=== PATIENT | female | born 1945 | race Caucasian/White ===

== ENCOUNTER → 2017-06-12 11:08 | Outpatient (CLI) | payer MEDICARE, OTHER, MEDICAID, SELFPAY ==
[2017-06-12 11:38] LABS: Absolute Lymphocyte Count 1.08 X10^3/ul (0.83-4.51); Absolute Neutrophil Count 2.8 X10^3/uL (2.0-7.7); Basophil# 0.02 X10^3/uL; Basophil% 0.4 % (0-1); Eosinophil# 0.18 X10^3/uL; Eosinophils% 3.9 % (0-5); Hematocrit 41.6 % (37-47); Hemoglobin 12.6 g/dl (12.0-15.0); Lymphocyte # 1.08 X10^3/ul (4.0); Lymphocyte % 23.2 % (19-41); Mean Corp Hgb Conc 30.3 g/gl (32-36); Mean Corpuscular Hgb 25.1 pg (27.0-32.0); Mean Corpuscular Volume 82.9 fL (81-99); Mean Platelet Vol. 9.4 fl (6.2-12.0); Monocyte# 0.56 X10^3/uL; Neutrophil # 2.81 X10^3/uL (2.7-7.7); Neutrophil % 60.3 % (47-70); POSITIVE COUNT NO; POSITIVE DIFFERENTIAL NO; POSITIVE MORPHOLOGY NO; Platelet Count 126 K/mm3 (150-450); RBC Distribution Width CV 19.9 % (11.6-14.6); RBC Distribution Width SD 59.4 fl (35.1-43.9); Red Blood Count 5.02 M/mm3 (4.2-5.4); White Blood Count 4.7 K/mm3 (4.4-11.0)
[2017-06-12 12:13] LABS: ALB/GLOB Ratio 0.9 RATIO (0.9-2.4); AST(SGOT) 11 U/L (15-37); Alanine Aminotransfer ALT/SGPT 16 U/L (13-56); Alkaline Phosphatase 63 U/L (45-117); Anion Gap 7 (5-15); BUN 21 mg/dL (7-18); BUN/Creat Ratio 22.1 RATIO (10-20); Calcium,Total 8.3 mg/dL (8.5-10.1); Chloride 107 mmol/L (98-107); Creatinine, Serum 0.95 mg/dL (0.55-1.02); EST Glomerular Filtration Rate 61 mL/min (>60); Est Glom Filt Rate - Afr Amer 74 mL/min (>60); Globulin 3.5 g/dL (2.2-4.2); Glucose 121 mg/dL (74-106); Potassium 4.8 mmol/L (3.5-5.1); Protein, Total 6.5 g/dL (6.4-8.2); Sodium Level 140 mmol/L (136-145)
== END ==
PROVIDERS: Family Provider Nurse Practitioner; PCP Nurse Practitioner; Visit Provider Internal Medicine Rheumatology
DX: M05.79 Rheumatoid arthritis with rheumatoid factor of multiple sites without organ or systems involvement (principal); M79.7 Fibromyalgia; M25.562 Pain in left knee; M15.9 Polyosteoarthritis, unspecified; Z79.899 Other long term (current) drug therapy
CPT/HCPCS: 36415; 80053; 85025

== ENCOUNTER → 2017-07-25 09:32 | Outpatient (CLI) | payer MEDICARE, OTHER, MEDICAID, SELFPAY ==
[2017-07-25 10:28] LABS: Hemoglobin A1c 5.8 % (4.2-6.3)
[2017-07-25 10:37] LABS: ALB/GLOB Ratio 0.8 RATIO (0.9-2.4); AST(SGOT) 17 U/L (15-37); Alanine Aminotransfer ALT/SGPT 20 U/L (13-56); Albumin, Serum 2.9 g/dL (3.2-5.0); Alkaline Phosphatase 63 U/L (45-117); Anion Gap 10 (5-15); BUN 23 mg/dL (7-18); BUN/Creat Ratio 20.7 RATIO (10-20); Calcium,Total 8.6 mg/dL (8.5-10.1); Chloride 105 mmol/L (98-107); Cholesterol 162 mg/dL (200); Creatinine, Serum 1.11 mg/dL (0.55-1.02); EST Glomerular Filtration Rate 51 mL/min (>60); Est Glom Filt Rate - Afr Amer 62 mL/min (>60); Globulin 3.6 g/dL (2.2-4.2); Glucose 197 mg/dL (74-106); High Density Lipoprotein 33 mg/dL; Protein, Total 6.5 g/dL (6.4-8.2); Sodium Level 139 mmol/L (136-145); Thyroid Stim Hormone (TSH) 1.96 uIU/mL (0.358-3.74); Triglycerides 227 mg/dL; Very Low Density Lipoprotein 45 mg/dL (5-40)
[2017-07-25 11:52] LABS: Microalbumin:Creatinine Ratio 14.8 mg/g CRE (<30 mg/g CRE)
== END ==
PROVIDERS: Family Provider Nurse Practitioner; PCP Nurse Practitioner; Visit Provider Internal Medicine Endocrinology, Diabetes & Metabolism
DX: E11.65 Type 2 diabetes mellitus with hyperglycemia (principal); E03.9 Hypothyroidism, unspecified
CPT/HCPCS: 36415; 80053; 80061; 82043; 82570; 83036; 84443

== ENCOUNTER → 2017-09-05 09:51 | Outpatient (CLI) | payer MEDICARE, OTHER, MEDICAID, SELFPAY ==
[2017-09-05 10:26] LABS: Absolute Lymphocyte Count 1.26 X10^3/ul (0.83-4.51); Basophil# 0.03 X10^3/uL; Basophil% 0.4 % (0-1); Eosinophils% 6.8 % (0-5); Hematocrit 43.1 % (37-47); Hemoglobin 13.1 g/dl (12.0-15.0); Lymphocyte # 1.26 X10^3/ul (4.0); Lymphocyte % 17.1 % (19-41); Mean Corp Hgb Conc 30.4 g/gl (32-36); Mean Corpuscular Hgb 26.3 pg (27.0-32.0); Mean Corpuscular Volume 86.5 fL (81-99); Mean Platelet Vol. 9.1 fl (6.2-12.0); Monocyte# 0.55 X10^3/uL; Monocyte% 7.5 % (0-10); Neutrophil # 5.02 X10^3/uL (2.7-7.7); Neutrophil % 67.9 % (47-70); Platelet Count 181 K/mm3 (150-450); RBC Distribution Width CV 14.9 % (11.6-14.6); RBC Distribution Width SD 46.5 fl (35.1-43.9); Red Blood Count 4.98 M/mm3 (4.2-5.4); White Blood Count 7.4 K/mm3 (4.4-11.0)
[2017-09-05 10:31] LABS: POSITIVE COUNT NO; POSITIVE DIFFERENTIAL NO; POSITIVE MORPHOLOGY NO
[2017-09-05 11:24] LABS: ALB/GLOB Ratio 0.7 RATIO (0.9-2.4); AST(SGOT) 14 U/L (15-37); Alanine Aminotransfer ALT/SGPT 18 U/L (13-56); Albumin, Serum 2.8 g/dL (3.2-5.0); Alkaline Phosphatase 63 U/L (45-117); Anion Gap 10 (5-15); BUN 21 mg/dL (7-18); BUN/Creat Ratio 18.9 RATIO (10-20); Calcium,Total 8.7 mg/dL (8.5-10.1); Chloride 104 mmol/L (98-107); Creatinine, Serum 1.11 mg/dL (0.55-1.02); EST Glomerular Filtration Rate 51 mL/min (>60); Est Glom Filt Rate - Afr Amer 62 mL/min (>60); Globulin 3.8 g/dL (2.2-4.2); Glucose 193 mg/dL (74-106); Protein, Total 6.6 g/dL (6.4-8.2); Sodium Level 139 mmol/L (136-145)
== END ==
PROVIDERS: Family Provider Nurse Practitioner; PCP Nurse Practitioner; Visit Provider Internal Medicine Rheumatology
DX: M05.79 Rheumatoid arthritis with rheumatoid factor of multiple sites without organ or systems involvement (principal); M79.7 Fibromyalgia; M25.561 Pain in right knee; M15.9 Polyosteoarthritis, unspecified; K76.0 Fatty (change of) liver, not elsewhere classified; M50.30 Other cervical disc degeneration, unspecified cervical region; M47.892 Other spondylosis, cervical region; Z79.899 Other long term (current) drug therapy
CPT/HCPCS: 36415; 80053; 85025

== ENCOUNTER → 2017-11-12 09:12 | Outpatient (CLI) | payer MEDICARE, OTHER, MEDICAID, SELFPAY ==
[2017-11-12 11:20] LABS: Vitamin D,25 Hydroxy 37.3 ng/mL (29.95-100.01)
[2017-11-12 11:23] LABS: Hemoglobin A1c 5.6 % (4.2-6.3)
[2017-11-12 12:54] LABS: ALB/GLOB Ratio 0.8 RATIO (0.9-2.4); AST(SGOT) 18 U/L (15-37); Alanine Aminotransfer ALT/SGPT 19 U/L (13-56); Albumin, Serum 2.9 g/dL (3.2-5.0); Alkaline Phosphatase 53 U/L (45-117); Anion Gap 11 (5-15); BUN 19 mg/dL (7-18); BUN/Creat Ratio 19.7 RATIO (10-20); Calcium,Total 8.7 mg/dL (8.5-10.1); Chloride 104 mmol/L (98-107); Creatinine, Serum 0.96 mg/dL (0.55-1.02); EST Glomerular Filtration Rate 60 mL/min (>60); Est Glom Filt Rate - Afr Amer 73 mL/min (>60); Globulin 3.6 g/dL (2.2-4.2); Glucose 117 mg/dL (74-106); Potassium 4.5 mmol/L (3.5-5.1); Protein, Total 6.5 g/dL (6.4-8.2); Sodium Level 141 mmol/L (136-145); Thyroid Stim Hormone (TSH) 2.33 uIU/mL (0.358-3.74)
== END ==
PROVIDERS: Family Provider Nurse Practitioner; PCP Nurse Practitioner; Visit Provider Internal Medicine Endocrinology, Diabetes & Metabolism
DX: E11.65 Type 2 diabetes mellitus with hyperglycemia (principal); E55.9 Vitamin D deficiency, unspecified
CPT/HCPCS: 36415; 80053; 82306; 83036; 84443

== ENCOUNTER → 2017-11-27 09:58 | Outpatient (CLI) | payer MEDICARE, OTHER, MEDICAID, SELFPAY ==
[2017-11-27 11:10] LABS: Absolute Lymphocyte Count 1.06 X10^3/ul (0.83-4.51); Absolute Neutrophil Count 4.6 X10^3/uL (2.0-7.7); Basophil# 0.03 X10^3/uL; Basophil% 0.5 % (0-1); Eosinophil# 0.24 X10^3/uL; Eosinophils% 3.7 % (0-5); Hematocrit 42.8 % (37-47); Hemoglobin 13.3 g/dl (12.0-15.0); Lymphocyte # 1.06 X10^3/ul (4.0); Lymphocyte % 16.5 % (19-41); Mean Corp Hgb Conc 31.1 g/gl (32-36); Mean Corpuscular Hgb 26.4 pg (27.0-32.0); Mean Corpuscular Volume 84.9 fL (81-99); Mean Platelet Vol. 9.9 fl (6.2-12.0); Monocyte# 0.53 X10^3/uL; Monocyte% 8.2 % (0-10); Neutrophil # 4.55 X10^3/uL (2.7-7.7); Neutrophil % 70.8 % (47-70); Platelet Count 200 K/mm3 (150-450); RBC Distribution Width CV 14.8 % (11.6-14.6); Red Blood Count 5.04 M/mm3 (4.2-5.4); White Blood Count 6.4 K/mm3 (4.4-11.0)
[2017-11-27 11:21] LABS: POSITIVE COUNT NO; POSITIVE DIFFERENTIAL NO; POSITIVE MORPHOLOGY NO
[2017-11-27 11:45] LABS: ALB/GLOB Ratio 0.8 RATIO (0.9-2.4); AST(SGOT) 14 U/L (15-37); Alanine Aminotransfer ALT/SGPT 19 U/L (13-56); Albumin, Serum 3.1 g/dL (3.2-5.0); Alkaline Phosphatase 58 U/L (45-117); Anion Gap 14 (5-15); BUN 18 mg/dL (7-18); BUN/Creat Ratio 16.8 RATIO (10-20); Calcium,Total 9.1 mg/dL (8.5-10.1); Chloride 102 mmol/L (98-107); Creatinine, Serum 1.07 mg/dL (0.55-1.02); EST Glomerular Filtration Rate 53 mL/min (>60); Est Glom Filt Rate - Afr Amer 64 mL/min (>60); Globulin 3.8 g/dL (2.2-4.2); Glucose 138 mg/dL (74-106); Potassium 4.6 mmol/L (3.5-5.1); Protein, Total 6.9 g/dL (6.4-8.2); Sodium Level 140 mmol/L (136-145)
== END ==
PROVIDERS: Family Provider Nurse Practitioner; PCP Nurse Practitioner; Visit Provider Internal Medicine Rheumatology
DX: M05.79 Rheumatoid arthritis with rheumatoid factor of multiple sites without organ or systems involvement (principal); M79.7 Fibromyalgia; M25.561 Pain in right knee; M15.9 Polyosteoarthritis, unspecified; M50.30 Other cervical disc degeneration, unspecified cervical region; M47.892 Other spondylosis, cervical region
CPT/HCPCS: 36415; 80053; 85025

== ENCOUNTER 2017-12-17 10:02 | Outpatient (RCR) | payer MEDICARE, OTHER, MEDICAID, SELFPAY ==
--- NOTE | 2017-12-17 10:38 | HP.PTEVAL ---
Patient's Visit Information TIA WAGNER is a 72 year old F referred to Physical Therapy by Mayra Goodman with a diagnosis of Charcot. Date of Evaluation: 12/17/17 Physical Therapist: Juanis Sanchez - Visit Plan Plan: w/c - Subjective Subjective: Has been dependent on a wheelchair for about 10 years. She has charcot foot and it stops her from walking. She was told if she did not get of them then she would lose her feet. She has pain all the time all over her body- at its worst is a 10/10- if she takes a percoset it diminishes but never goes away. Has a Roxie electric wheelchair at home. Transfer from wheel chair to bed and other surfaces- most days she has no problems doing transfers. Has a joystick that propels her. 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 Sleeps in a regular bed but the head and feet move up and down. Lives alone. Does not work- She is able to dress herself at this time. Able to do all cooking at home in her wheelchair. Aid comes 5 days a week 4 hours a day and then she transfers to a recliner lift chairs. She is mostly in the recliner for the remainder of the day except for bathrooms. Has had a lot of falls- most recent was about a month ago off the side of her bed. She was able to crawl to her w/c and pull herself up. Does not transport outside of the home. Use to have a scooter which has so at this point the aide drives her car into the grass and patio so she can take steps for about 3 feet. No sensation in feet or hands. Fully continent and able to weight shift. Is normally in her wheelchair about 6 hours a day. Has a transfer chair in the car to go to MD pandya in the transfer chair. House is fully accessible for w/c as well as safety bars. - Objective Posture: FH, RS. Sensation: no sensation from mid dent down. Observation: toe amputation bilateral LE. Gait: patient is not ambulatory. Transfer: from w/c to chair and back with CGA for balance and safety. Sit to stand: required UE A bilaterally and SBA for safety. ROM: WFL in all planes of the UE and LE. Strength: Ankle: 4/5, Knee: left: 4-/5 right: 4/5, Hip: left:3+/5, Right: 4/5, Core: poor, Scap: poor, Shoulder: 4-/5 throughout Elbow: 4-/5 Maintenance Controller: poor - Goals Goal 1:: Patient will be eligable for new w/c Goal Time Frame: 4-6 Weeks - Rehabilitation Potential Physical Therapy Diagnosis: Patient presents with hypomobility- she has decreased strenth leading to decreased ability to transfer and perform ADL's- requires w/c for mobility Rehabilitation Potential: Fair - Anticipated Interventions Thank you for the opportunity to evaluate your patient. For Medicare and Medicare HMO plans, please review the plan of care and approve it. It will need to be FAXED BACK to us at [phone] for Medicare purposes. Please let me know if there are questions or concerns regarding this plan of care. Physician Signature: Date:
== END 2017-12-17 19:00 | disposition home or self-care (01) ==
LOC: PT 10:02
PROVIDERS: Family Provider Nurse Practitioner; PCP Nurse Practitioner; Visit Provider Nurse Practitioner
DX: M54.5 Low back pain (principal); M06.9 Rheumatoid arthritis, unspecified; R53.81 Other malaise
CPT/HCPCS: 97161

== ENCOUNTER → 2018-02-08 10:04 | Outpatient (CLI) | payer MEDICARE, OTHER, MEDICAID, SELFPAY ==
[2018-02-08 11:52] LABS: Absolute Lymphocyte Count 0.82 X10^3/ul (0.83-4.51); Absolute Neutrophil Count 5.3 X10^3/uL (2.0-7.7); Basophil# 0.03 X10^3/uL; Basophil% 0.5 % (0-1); Eosinophil# 0.01 X10^3/uL; Eosinophils% 0.2 % (0-5); Hematocrit 40.9 % (37-47); Hemoglobin 12.7 g/dl (12.0-15.0); Lymphocyte # 0.82 X10^3/ul (4.0); Lymphocyte % 12.4 % (19-41); Mean Corp Hgb Conc 31.1 g/gl (32-36); Mean Corpuscular Hgb 26.5 pg (27.0-32.0); Mean Corpuscular Volume 85.2 fL (81-99); Mean Platelet Vol. 10.5 fl (6.2-12.0); Monocyte# 0.41 X10^3/uL; Monocyte% 6.2 % (0-10); Neutrophil # 5.32 X10^3/uL (2.7-7.7); Neutrophil % 80.5 % (47-70); Platelet Count 186 K/mm3 (150-450); RBC Distribution Width CV 15.2 % (11.6-14.6); RBC Distribution Width SD 47.1 fl (35.1-43.9); White Blood Count 6.6 K/mm3 (4.4-11.0)
[2018-02-08 11:58] LABS: Hemoglobin A1c 5.9 % (4.2-6.3)
[2018-02-08 12:00] LABS: Microalbumin,Random Urine 26.9 mg/L (NO RANGE EST.); Microalbumin:Creatinine Ratio 14.7 mg/g CRE (<30 mg/g CRE)
[2018-02-08 12:04] LABS: POSITIVE COUNT NO; POSITIVE DIFFERENTIAL NO; POSITIVE MORPHOLOGY NO
[2018-02-08 12:14] LABS: ALB/GLOB Ratio 0.8 RATIO (0.9-2.4); AST(SGOT) 11 U/L (15-37); Alanine Aminotransfer ALT/SGPT 15 U/L (13-56); Albumin, Serum 2.9 g/dL (3.2-5.0); Alkaline Phosphatase 53 U/L (45-117); Anion Gap 11 (5-15); BUN 22 mg/dL (7-18); BUN/Creat Ratio 22.5 RATIO (10-20); Calcium,Total 8.9 mg/dL (8.5-10.1); Chloride 107 mmol/L (98-107); Creatinine, Serum 0.98 mg/dL (0.55-1.02); EST Glomerular Filtration Rate 59 mL/min (>60); Est Glom Filt Rate - Afr Amer 72 mL/min (>60); Globulin 3.8 g/dL (2.2-4.2); Glucose 169 mg/dL (74-106); Potassium 4.8 mmol/L (3.5-5.1); Protein, Total 6.7 g/dL (6.4-8.2); Sodium Level 140 mmol/L (136-145); Thyroid Stim Hormone (TSH) 0.78 uIU/mL (0.358-3.74)
== END ==
PROVIDERS: Family Provider Nurse Practitioner; PCP Nurse Practitioner; Referring Provider Internal Medicine Rheumatology; Visit Provider Internal Medicine Rheumatology
DX: E11.65 Type 2 diabetes mellitus with hyperglycemia (principal); M05.79 Rheumatoid arthritis with rheumatoid factor of multiple sites without organ or systems involvement; M79.7 Fibromyalgia; M25.561 Pain in right knee; M15.9 Polyosteoarthritis, unspecified; K76.0 Fatty (change of) liver, not elsewhere classified; M50.30 Other cervical disc degeneration, unspecified cervical region; M47.892 Other spondylosis, cervical region; Z79.899 Other long term (current) drug therapy
CPT/HCPCS: 36415; 80053; 82043; 82570; 83036; 84443; 85025

== ENCOUNTER → 2018-03-06 10:01 | Outpatient (CLI) | payer MEDICARE, OTHER, MEDICAID, SELFPAY ==
--- NOTE | 2018-03-06 10:09 | BD_ITS ---
STUDY: DUAL ENERGY X-RAY ABSORPTIOMETRY / DXA REASON FOR EXAM: Female, 72 years old. The patient is postmenopausal. Loss of height. TECHNIQUE: Bone Mineral Density (BMD) measurements of lumbar spine and bilateral hips were obtained. COMPARISON: None. FINDINGS: Lumbar Spine (L1-L4): g/cm2 (1.490) / T-score (2.7) / Z-score (4.5) Findings are suggestive of normal bone density with a low fracture risk. Left Femur Total: g/cm2 (0.837) / T-score (-1.4) / Z-score (0.4) Left Femoral Neck: g/cm2 (0.818) / T-score (-1.6) / Z-score (0.3) Right Femur Total: g/cm2 (0.889) / T-score (-0.9) / Z-score (0.8) Right Femoral Neck: g/cm2 (0.756) / T-score (-2.0) / Z-score (-0.1) BD/Dexa Bone Density Study IMPRESSION: The patient is considered osteopenic as outlined below according to World Alon Organization (WHO) criteria with a moderate fracture risk. Reference Information: The T-score is the number of standard deviations above or below the standard which is normal for young adults at their peak bone mineral density. The World Health Organization (WHO) interprets the T-scores as follows: Above -1 Normal bone density Between -1 and -2.5 Osteopenia Equal to / or below -2.5 Osteoporosis As a practical clinical guideline, osteopenia may be graded as follows: Mild -1 through -1.5 Moderate -1.6 through -2.0 Severe -2.1 through -2.4 The Z-score is the number of standard deviations above or below age-matched controls. A Z-score of less than -1.5 would be considered abnormal. References: 1. NIH Osteoporosis and Related Bone Diseases http://www.osteo.org 2. International Society for Clinical Densitometry http://www.iscd.org 3. National Osteoporosis Foundation http://www.nof.org Electronically Signed: Maciel Galindo MD at 14:36 EST Tel [phone], Service support ,
--- OUTSIDE RECORDS SUMMARY | 2018-04-22 10:04 | XMS RPT_ITS | Continuity of Care Document ---
:1945 Author Organization [facility] Address [address] [facility] [address] [place] [address] Phone Care Team Providers Name Role Phone Mayra Goodman CNP Unavailable Gayla Child Unavailable Dr. Lex Toribio Unavailable Aguila Valenzuela MD Unavailable Tanphaichitr - Sethi, Eric Unavailable René Chong Unavailable Bulmaro Lakhani Unavailable Eliza Barba Unavailable Kate Lau MD Unavailable Adilia Rolle Unavailable Unavailable Laurel Thomas LPN Unavailable Unavailable Unavailable Unavailable Problems Name Dates Details Abnormal albumin (R77.0, 790.99) Status: Active Abnormal laboratory test (R89.9, 796.4) Status: Active Allergic rhinitis, mild (J30.9, 477.9) Comments: claritin side effects no decongestants. try nasal strpay Status: Active Anemia (D64.9, 285.9) Comments: Dr. lau had iron infusion hgab better up to 12.7Get iron infusion, 3-4 years ago, now Hb 9.4 , MCV 72.8Cannot tolerate Fe supplment Status: Active Anemia, Alfalfa's (D51.0, 281.0) Status: Active Arthritis, rheumatic, acute or subacute (I00, 390) Comments: see [place] pain dr. mcfadden every 3 monthsFentyl patch was Discontinued because passed out in februarymethotrexate caused fatty liverArava 1 yrHas prednisone as back up if no appt in the last three shanice hs cse has a flareLast flare of RA 1 month, hands and arm, shoulders, Status: Active Back pain, lumbosacral (M54.5, 724.2) Comments: will go back on lyrica 50 Status: Active Blood in stool (K92.1, 578.1) Comments: Dr Toribio jan 05 2016 ? colonosopyFOBT positive 11/08, colonoscopy in 2006.Now microcytic anemia Status: Active BMI 35.0-35.9,adult (Z68.35, V85.35) Status: Active BMI 36.0-36.9,adult (Z68.36, V85.36) Status: Active BMI 37.0-37.9, adult (Z68.37, V85.37) Status: Active BMI 37.0-37.9, adult (Z68.37, V85.37) Status: Active Charcot foot due to diabetes mellitus (E11.610, 250.60) Comments: sees Dr Child Status: Active Chronic Kidney Disease, Stage III (Moderate) (585.3) Comments: us and COLLETTE negatrive 4-16. crcl 57 send info to nimisha on aravaCr 1.30was 0.83GFR 43Nephrology 12/09 Status: Active Chronic pain (G89.29, 338.29) Comments: seeing Dr. Mcfadden([facility]) appt August. called her today and let know what happen in(Mar 04 2015), passed out, ICU for 1 week, intubated, hospital and think fentyl and cymblata cause serotoi n syndrome , right now willcover her with percocet qid till see will call dtr jesus her back this. she is back on lyrica needs [address] mcfadden. tried off neurotin and pain back retart Status: Active Colon polyps (K63.5, 211.3) Comments: last 2 good. last i have 2007 so needs done. keeps reminding her awareagain need to do aware could get cancer Status: Active Coronary artery disease (I25.10, 414.00) Comments: mild cath 2007, Dr. Garg stress test good 7-11. not follow up with him. no new signs and symptoms sees Fede Stent [address] Campa in [place] Status: Active Current nonsmoker (Renamed from Current non-smoker) (Z78.9, V49.89) Status: Active Daytime somnolence (R40.0, 780.54) Comments: sleeping too much or boredom Status: Active Debilitated (R53.81, 799.3) Comments: evaluation for Power wheel torrie face to face Status: Active Deliveries (Parity) Comments: 1 Status: Active Dental caries (K02.9, 521.00) Comments: teeth pulled Status: Active Depression, acute (F32.9, 296.20) Comments: has home health aid, makes big difference for her, takes magnesium oxide Status: Active Diabetes mellitus type II, controlled (E11.9, 250.00) Comments: HBA1c 7.5(04/11)HBA1c 7.4 (10/13/15)HBA1c 8.2(12/09)Hba1c 6.1 (--) Hba1c 6.4 (-)See DR seymour2-2016)Levemir 30 units BIDMetformin [address] Hart sees q 3 month loperamide 3 ti mes a day helps sometimesUSed trulicity: 4 week, dry heaves, stomach cramps, no vomiting, resoled after stopping trulicity(03/10)Junuvia on qmw688of once daily Rageye exam yearly(12/09/15), catarctekg cardiology Dr Cross, stents 1 in 2003Podiatry: Dr Child [place], every 3 months, Has multiple toe amputations because of infections (2006 to 2011)Right middle toe amputated: 10/21/15FBS:199, 229 , 181 Status: Active Encephalopathy (G93.40, 348.30) Comments: looking back and trying to obtain info. she was getting percocet monthly was hoarding them for when need not sure if overdose, off cymbalta ? cause seizure orconfusion like serotoin syndrome. ? infectio us. ? combo of meds. ? serotonin syndrome with cymblata added to prozzac and fentanylEEG @ [facility] 03-05-15 showed severe diffuse encephalopathy with abundant generalized periodic discharges with triphasic morphology.had 2 seziures back to back in hospital while intubated Status: Active Fatigue due to treatment (R53.83, 780.79) Comments: think related to meds. off clonidine better less tired and depressed Status: Active Fibromyalgia (M79.7, 729.1) Comments: Sees pain management Dr. Mcfadden at [facility], she prescribes lyrica, dose increased in winter with improvement Status: Active History of stroke (Z86.73, V12.54) Comments: srinivasa lacunar. reveiwed with patient mri brain 07-09 and what means. Status: Active Hypercholesteremia (E78.00, 272.0) Comments: reveiwed with patient recent tests ldl higher than like but on arava and statin increase liver. talk to her about zetia. pt refuseCardiology: October Status: Active Hypertension (I10, 401.9) Comments: stable on norvasc, spirolactone, quinapril, toprol Status: Active Hypertension, benign (I10, 401.1) Comments: secondary work up negative and now doing well off clonidine better because less depressed and fatiguedOn Spirlactone quinapril and norvasc and toprol BP stable sees Dr. 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 Status: Active Knee pain (M25.569, 719.46) Comments: 1 cc kenalog Lot#: [id number] exp 2 cc miguel a lot#: [id number] exp: right knee has RA and this helps to clalm flare Status: Active Malnourished (E46, 263.9) Comments: dietary Status: Active Malnutrition (E46, 263.9) Comments: jasmeet rousseau, Status: Active Mental status change (R41.82, 780.97) Comments: admitted to ICU @ [facility], required ventilation for resp. failure. evaluated by neurology and felt to possibly have status epilepticus, but EEG showed severe encephalopathy.possible narcotic/drug overdose, was then weaned off ventilator or sent to [facility] Status: Active Mitral valve stenosis (I05.0, 394.0) Comments: MODERATE: Saw Dr Cross (does not want to see him again, was told needs mitral valve replacement as is not candidate for valvuloplastyNew Dr : DR Kee Campa(lucama)per pt does not receomemd surgery at this time.Reviewed notes, he saidWill need to gather more information at this time , will follow up in 06/[address] Campa but not surgical candidate Status: Active Muscle weakness of extremity (M62.81, 728.87) Status: Active NEED FOR PROPHYLACTIC VACCINATION AND INOCULATION AGAINST INFLUENZA (Z23, V04.81) Status: Active Need for prophylactic vaccination and inoculation against influenza (Renamed from Need for immunization against influenza) (Z23, V04.81) Status: Active Nonsmoker (Z78.9, V49.89) Status: Active Numbness on right side (R20.0, 782.0) Comments: new. ? from neck ? from stroke. weakness hard to tell in habd because of RA deformity Status: Active Obesity (E66.9, 278.00) Comments: slowly lost weight and keep off. arava helps with this. continues to loose. Status: Active Peripheral neuropathy (G62.9, 356.9) Comments: see Vellanki lyrica help labs good try increase lyrica and increase appetite cymbalta helping Status: Active Pregnancies () Comments: 1 Csection Status: Active PVD (peripheral vascular disease) (I73.9, 443.9) Comments: angioplasty 12-12 Dr. Smith. done because nonhealing wound. stable no signs and symptomsleft small artery Status: Active Recurrent oral ulcers (K13.79, 528.9) Status: Active Rheumatoid arthritis (M06.9, 714.0) Comments: Rip(Dr Francisco) holding DR Francisco 04/11DR Mcfadden [facility] manag[facility] 21 dec 2015: Lyrica , general pain gets percocettDr Maryam RA and OAVery achy Status: Active Seizure (R56.9, 780.39) Comments: ? related to above. she is on dilantin. will do sleep deprived EEG 1-11. if negative,will try off seizures med. will do spinal tap. she was in status. i talk to neurology. if sleep deprived EEG and s marilee tap okay then can stop dilantin think serotonin syndrome Status: Active Serum albumin decreased (E88.09, 273.8) Comments: checkurine protine ? chronic diseae consider liver issue spep and ammonia good Status: Active Status post amputation of lesser toe, right (Z89.421, V49.72) Comments: amputation diabetes and amputation, seeing Dr. 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 Child, with [facility] Status: Active Ulcer of foot (L97.509, 707.15) Comments: right and left, Dr Child, left foot and right foot has healed no amputation Status: Active Unspecified Diagnosis Status: Active Unspecified Diagnosis Status: Active Unspecified Diagnosis Status: Active Vitamin B12 deficiency (E53.8, 266.2) Comments: per Dr. Lau Status: Active Vitamin D deficiency (E55.9, 268.9) Comments: Vit D3 2000 daily Status: Active Wheelchair bound (Z99.3, V46.3) Comments: Looking for new wheelchair, she will look at [facility] to see what she would like and ask them to call us Status: Active Medications Name Dates Details Arava 20 MG Oral Tablet 1 Tablet qd for 30 days Quantity: 30 {Tablet} Refills: 0 Ordered:13-Oct-2015 Rafael Thomas MD Start : 13-Oct-2015 Active Comments:Dr. Francisco - holding while sores on feet are healing Aspir-81 81 MG Oral Tablet Delayed Release 1 (one) Tablet DR daily for 30 days Quantity: 30 {Tablet} Refills: 11 Ordered:02-Aug-2017 Maxine HINTON, Mayra Lin CNP, Mayra George Start : 02-Aug-2017 Active Cyanocobalamin 1000 MCG/ML Injection Solution monthly (1000 MCG/ML) Active Cymbalta 30 MG Oral Capsule Delayed Release Particles daily (30 MG) Active FLUoxetine HCl 40 MG Oral Capsule 1 Capsule QD for 0 days Quantity: 30 {Capsule} Refills: 4 Ordered:18-Sep-2017 Maxine HINTON, Mayra Lin CNP, Mayra George Start : 18-Sep-2017 Active Fluticasone Propionate 50 MCG/ACT Nasal Suspension 2 (two) Sprays each nostril qd for 30 days Quantity: 1 {Box} Refills: 1 Ordered:31-May-2017 Maxine HINTON, Mayra Lin CNP, Mayra George Start : 31-May-2017 Active Glucophage 500 MG Oral Tablet 2 (two) Tablet two times daily for 30 days Quantity: 60 {Tablet} Refills: 2 Ordered:03-Jul-2016 Maxine HINTON, Mayra Lin CNP, Mayra George Start : 03-Jul-2016 Active Comments:please give $4 prescription of chasity dunlap do metformin(has diarhea with metformin, not with generic glucophage ) Levemir 100 UNIT/ML Subcutaneous Solution 1 (one) Solution 30 in AM and 30 at bedtime for 30 days Quantity: 2 {Package} Refills: 1 Ordered:03-Jul-2016 Maxine HINTON, Mayra Lin CNP, Mayra George Start : 03-Jul-2016 Active Comments:Total 60 units per day per Rag Levothyroxine Sodium 100 MCG Oral Tablet 1 Tablet QD for 0 days Quantity: 30 {Tablet} Refills: 3 Ordered:28-Nov-2017 Jacqueline Sandy DO Start : 28-Nov-2017 Active Loperamide HCl 2 MG Oral Tablet 1 (one) Tablet Tablet 1-2 daily for 0 days Quantity: 30 {Tablet} Refills: 2 Ordered:13-Oct-2015 Rafael Thomas MD Start : 08-Sep-2015 Active Lyrica 100 MG Oral Capsule 1 Capsule bid for 0 days Quantity: 60 {Capsule} Refills: 0 Ordered:15-Dec-2015 Rafael Thomas MD Start : 15-Dec-2015 Active Comments:sixty MAGNESIUM OXIDE, 400MG (Oral Tablet) 1 (one) Tablet QD for 0 days Quantity: 90 {Tablet} Refills: 0 Ordered:06-Jul-2015 Katelyn Dempsey MD Start : 06-Jul-2015 Active OneTouch Lancets Miscellaneous 1 (one) Misc Misc test bid for 90 days Quantity: 1 {Box} Refills: 3 Ordered:18-Oct-2015 Rafael Thomas MD Start : 18-Oct-2015 Active Comments:E11.9 ONETOUCH ULTRA BLUE (In Vitro Strip) 1 (one) Strip Strip test bid for 0 days Quantity: 100 {Strip} Refills: 3 Ordered:19-Jul-2015 Katelyn Dempsey MD Start : 19-Jul-2015 Active Comments:E11.9NPI: [id number] PERCOCET, 7.5-325MG (Oral Tablet) 2 (two) Tablet every 4 hours prn for 0 days Quantity: 160 {Tablet} Refills: 0 Ordered:08-Sep-2015 Rafael Thomas MD Start : 08-Sep-2015 Active Comments:one hundred and sixty Pravastatin Sodium 20 MG Oral Tablet 1 Tablet QD for 30 days Quantity: 30 {Tablet} Refills: 1 Ordered:15-Feb-2018 Mayra Goodman CNP, CNP, Mary E Start : 15-Feb-2018 Active PredniSONE 10 MG Oral Tablet 1 Tablet take 3 daily x 3 days, 2 daily x 3 days, 1 daily x 3 days PRN for 0 days Quantity: 30 {Tablet} Refills: 0 Ordered:15-Dec-2015 Rafael Thomas MD Start : 15-Dec-2015 Active Quinapril HCl 40 MG Oral Tablet 1 Tablet QD for 30 days Quantity: 30 {Tablet} Refills: 3 Ordered:07-Nov-2017 Maxine HINTON, Mayra Lin CNP, Mayra George Start : 07-Nov-2017 Active Spironolactone 25 MG Oral Tablet 1 Tablet QD for 30 days Quantity: 30 {Tablet} Refills: 3 Ordered:05-Nov-2017 Cidestinya CONTROL TOWER OPERATOR, Mayra Lin CONTROL TOWER OPERATOR, Ivonne Start : 05-Nov-2017 Active Toprol XL 50 MG Oral Tablet Extended Release 24 Hour 1 (one) Tablet ER 24HR qd for 0 days Quantity: 30 {Tablet} Refills: 6 Ordered:14-Jan-2018 Jacqueline Sandy DO Start : 14-Jan-2018 Active Vitamin D3 2000 UNIT Oral Capsule 2 (two) Capsule bid for 30 days Quantity: 60 {Capsule} Refills: 3 Ordered:17-Oct-2017 Maxine CONTROL TOWER OPERATOR, Mayra Lin CONTROL TOWER OPERATOR, Ivonne Start : 17-Oct-2017 Active Accu-Chek FastClix Lancet Kit 1 (one) Kit uad for 30 days Quantity: 30 Kit Refills: 0 Ordered:05-Apr-2016 Rafael Thomas MD Start : 16-Dec-2015 End : 15-Jan-2016 Inactive Acyclovir 400 MG Oral Tablet 1 (one) Tablet Tablet tid for 5 days Quantity: 15 {Tablet} Refills: 0 Ordered:03-Nov-2016 Laurel Thomas LPN Start : 03-Nov-2016 End : 08-Nov-2016 Inactive B-12, 1000MCG (Sublingual Tablet Sublingual) 1 QD for 0 days Refills: 0 Ordered:12-May-2013 HARESH Griffin End : 12-May-2013 Inactive BD PEN NEEDLE YESSY U/F, 32G X 4 MM (Miscellaneous) 1 Misc for novolog and levemir pens for 0 days Quantity: 2 {box(s)} Refills: 6 Ordered:31-Mar-2015 HARESH Griffin Start : 12-May-2013 End : 31-Mar-2015 Inactive Comments:uses 4 qd for SSI and levemir qd BUPROPION HCL ER (SR), 150MG (Oral Tablet Extended Release 12 Hour) 2 Tablet ER 12HR QD for 0 days Quantity: 60 {Tablet_ER_12HR} Refills: 6 Ordered:13-Aug-2012 Katelyn Dempsey MD Start : 13-Aug-2012 End : 13-Aug-2012 Inactive Comments:patient stopped taking Cipro 500 MG Oral Tablet 1 (one) Tablet Tablet bid for 0 days Quantity: 20 {Tablet} Refills: 0 Ordered:10-Jan-2017 Slarb Laurel FOOTE Start : 06-Nov-2016 End : 10-Jan-2017 Inactive CYMBALTA, 60MG (Oral Capsule Delayed Release Particles) 1 (one) Capsule DR Part qd for 0 days Quantity: 30 {Capsule} Refills: 0 Ordered:31-Mar-2015 HARESH Griffin Start : 06-Oct-2014 End : 31-Mar-2015 Inactive D-3 1000 IU 1 QD Inactive Darvoset 10mg. 1-2 QD Inactive Etodolac ER 600 MG Oral Tablet Extended Release 24 Hour 2 Tablet ER 24HR QD prn for 0 days Quantity: 60 {Tablet} Refills: 3 Ordered:18-Dec-2016 Mayra Goodman CNP, CNP Ivonne Start : 08-Sep-2015 End : 18-Dec-2016 Inactive FENTANYL, 50MCG/HR (Transdermal Patch 72 Hour) uad q 3 days (50 MCG/HR) Inactive Comments:Dr. Obando FOLIC ACID, 1MG (Oral Tablet) 1 (one) Tablet qd for 0 days Quantity: 30 {Tablet} Refills: 6 Ordered:01-Apr-2015 HARESH Griffin Start : 29-Oct-2012 End : 01-Apr-2015 Inactive FUROSEMIDE, 40MG (Oral Tablet) 1 (one) Tablet qd for 0 days Quantity: 30 {Tablet} Refills: 0 Ordered:01-Apr-2015 HARESH Griffni Start : 31-Mar-2015 End : 01-Apr-2015 Inactive HUMALOG, 100UNIT/ML (Subcutaneous Solution) uad Solution tid with meals for 0 days Quantity: 2 {Vial} Refills: 0 Ordered:01-Apr-2015 HARESH Griffin Start : 31-Mar-2015 End : 01-Apr-2015 Inactive Comments:SSI: 151-200-1 [id number] units 678-108-3tfbns 301-350-4 units 351-400-5 unitsover 400 give 5 units and call provider Ellie 100 MG Oral Tablet 1 (one) Tablet daily for 30 days Quantity: 30 {Tablet} Refills: 0 Ordered:10-Jan-2017 Mayra Goodman CNP, CNP Ivonne Start : 10-Jan-2017 End : 09-Feb-2017 Inactive LABETALOL HCL, 200MG (Oral Tablet) 2 (two) Tablet Tablet qid for 0 days Quantity: 180 {Tablet} Refills: 0 Ordered:16-Apr-2015 Katelyn Dempsey MD Start : 16-Apr-2015 End : 16-Apr-2015 Inactive Comments:itching LAC-HYDRIN, 12% (External Lotion) 1 Lotion bid for 0 days Quantity: 1 {Lotion} Refills: 0 Ordered:29-Oct-2012 HARESH Griffin Start : 05-Apr-2012 End : 29-Oct-2012 Inactive LEVAQUIN, 500MG (Oral Tablet) 1 Tablet qd for 10 days Quantity: 10 {Tablet} Refills: 0 Ordered:29-Oct-2012 Katelyn Dempsey MD Start : 01-Oct-2012 End : 11-Oct-2012 Inactive Comments:patient states doign well on atb Lysine 500 MG Oral Capsule 1 (one) Capsule daily for 0 days Quantity: 30 {Capsule} Refills: 0 Ordered:10-Jan-2017 Slarb Laurel FOOTE Start : 06-Nov-2016 End : 10-Jan-2017 Inactive METANX, 3-90.314-2-35MG (Oral Capsule) 1 Capsule Capsule qd for 0 days Quantity: 30 {Capsule} Refills: 3 Ordered:31-Mar-2015 HARESH Griffin Start : 24-Feb-2013 End : 31-Mar-2015 Inactive METFORMIN HCL ER (OSM), 1000MG (Oral Tablet Extended Release 24 Hour) 1 (one) Tablet ER 24HR bid for 0 days Quantity: 60 {Tablet} Refills: 3 Ordered:20-Aug-2015 Long Faviola FOOTE Start : 06-Aug-2015 End : 20-Aug-2015 Inactive METHOTREXATE, 2.5MG (Oral Tablet) 6 Tablet q weekly for 0 days Quantity: 120 {Tablet} Refills: 0 Ordered:01-Apr-2015 HARESH Griffin Start : 31-Mar-2015 End : 01-Apr-2015 Inactive NEXIUM, 40MG (Oral Capsule Delayed Release) 1 QD for 0 days Refills: 0 Ordered:17-Jan-2010 HARESH Griffin End : 17-Jan-2010 Inactive Norvasc 5 MG Oral Tablet 1 Tablet qd for 30 days Quantity: 30 {Tablet} Refills: 0 Ordered:01-Jan-2018 Gabbi Lozada Start : 01-Jan-2018 End : 31-Jan-2018 Inactive OMEGA-3 FISH OIL, 1000MG (Oral Capsule) 1 QD for 0 days Refills: 0 Ordered:29-Oct-2012 HARESH Griffin End : 29-Oct-2012 Inactive OMEPRAZOLE, 40MG (Oral Capsule Delayed Release) 1 (one) Capsule DR Capsule DR daily for 0 days Quantity: 30 {Capsule} Refills: 0 Ordered:31-Mar-2015 HARESH Griffin Start : 26-Jan-2014 End : 31-Mar-2015 Inactive ONGLYZA, 5MG (Oral Tablet) 1 Tablet daily for 0 days Quantity: 30 {Tablet} Refills: 6 Ordered:13-Aug-2012 Katelyn Dempsey MD Start : 13-Aug-2012 End : 13-Aug-2012 Inactive Comments:too expensive OXYCODONE-ACETAMINOPHEN, 5-325MG (Oral Tablet) 1-2 Tablet Q4H for pain for 0 days Quantity: 60 {Tablet} Refills: 0 Ordered:13-Aug-2012 Katelyn Dempsey MD Start : 13-Aug-2012 End : 13-Aug-2012 Inactive Comments:Dr. Topher santiago d/c PHENYTOIN SODIUM EXTENDED, 100MG (Oral Capsule) 1 (one) Capsule Capsule tid for 0 days Quantity: 90 {Capsule} Refills: 0 Ordered:01-Jun-2015 Katelyn Dempsey MD Start : 01-Jun-2015 End : 01-Jun-2015 Inactive Comments:itching patient stopped POTASSIUM CHLORIDE SAILAJA ER, 20MEQ (Oral Tablet Extended Release) 1 (one) Tablet ER Tablet ER qd for 0 days Quantity: 30 {Tablet} Refills: 1 Ordered:01-Jun-2015 HARESH Griffin Start : 17-May-2015 End : 01-Jun-2015 Inactive TORSEMIDE, 100MG (Oral Tablet) uad Tablet daily prn for 30 days Quantity: 30 {Tablet} Refills: 6 Ordered:13-Aug-2012 Katelyn Dempsey MD Start : 13-Aug-2012 End : 13-Aug-2012 Inactive Comments:has not taken in over a year - stopped per patient VICODIN HP, 10-660MG (Oral Tablet) 1/2-2 Tablet every 8 hours prn for 0 days Quantity: 60 {Tablet} Refills: 0 Ordered:05-May-2011 HARESH Griffin Start : 05-May-2011 End : 05-May-2011 Inactive Comments:sixty, not help for pain per patient 05-05-11 VICODIN, 5-500MG (Oral Tablet) 1 Tablet q 8 hours prn for 0 days Quantity: 30 {Tablet} Refills: 1 Ordered:13-Nov-2011 HARESH Griffin Start : 13-Nov-2011 End : 13-Nov-2011 Inactive Comments:Dr. Topher best, 18MG/3ML (Subcutaneous Solution) 1 Solution 0.6 Sq every am then in 1 week up to 1.2 daily for 0 days Refills: 5 Ordered:21-Apr-2011 HARESH Griffin Start : 21-Apr-2011 End : 21-Apr-2011 Inactive Comments:with needles, made me sick as a dog Vitamin D3 10277 UNIT Oral Capsule 1 (one) Capsule once a week for 60 days Quantity: 8 {Capsule} Refills: 0 Ordered:15-Dec-2015 Rafael Thomas MD Start : 15-Dec-2015 End : 13-Feb-2016 Inactive ZOLPIDEM TARTRATE, 10MG (Oral Tablet) 1 Tablet qhs prn for 0 days Quantity: 30 {Tablet} Refills: 3 Ordered:31-Mar-2015 HARESH Griffin Start : 03-Nov-2013 End : 31-Mar-2015 Inactive Comments:thirty ZOSTAVAX, 01108HUE/0.65ML (Subcutaneous Solution Reconstituted) uad For Solution one time SQ injection for 0 days Quantity: 1 {For_Solution} Refills: 0 Ordered:01-Oct-2012 Faviola Howell LPN Start : 29-Aug-2012 End : 01-Oct-2012 Inactive ACTOS, 15MG (Oral Tablet) 1 Tablet QD for 30 days Quantity: 30 {Tablet} Refills: 6 Ordered:18-Jan-2011 Katelyn Dempsey MD Start : 18-Jan-2011 End : 18-Jan-2011 Discontinued Carvedilol 6.25 MG Oral Tablet 1 (one) Tablet QD for 0 days Quantity: 30 {Tablet} Refills: 1 Ordered:03-Jul-2016 SlaLaurel sullivan LPN Start : 15-May-2016 End : 03-Jul-2016 Discontinued CIPROFLOXACIN, 500MG (PO Tab) 2 QD for 0 days Refills: 0 Ordered:20-Aug-2009 HARESH Griffin End : 20-Aug-2009 Discontinued Comments:This order discontinued per [facility]. CLONIDINE HCL, 0.2MG (Oral Tablet) 1 (one) Tablet Tablet tid for 0 days Quantity: 90 {Tablet} Refills: 1 Ordered:06-Jul-2015 Katelyn Dempsey MD Start : 06-Jul-2015 End : 06-Jul-2015 Discontinued Comments:wean off Lyrica 50 MG Oral Capsule 1 (one) Capsule daily for 0 days Quantity: 30 {Capsule} Refills: 0 Ordered:20-Nov-2017 Adilia Rolle Start : 27-Apr-2017 End : 20-Nov-2017 Discontinued METANX, 3-35-2MG (Oral Tablet) 1 Tablet bid for 0 days Quantity: 60 {Tablet} Refills: 6 Ordered:21-Mar-2012 Katelyn Dempsey MD Start : 21-Mar-2012 End : 24-Feb-2013 Discontinued Comments:This order discontinued per [facility]. MetFORMIN HCl 1000 MG Oral Tablet 1 (one) Tablet bid for 0 days Quantity: 60 {Tablet} Refills: 3 Ordered:03-Jul-2016 Laurel Thomas LPN Start : 08-Sep-2015 End : 03-Jul-2016 Discontinued NOVOLOG FLEXPEN, 100UNIT/ML (Subcutaneous Solution) 1 Solution 6-20 units with meals by sliding scale for 0 days Quantity: 15 {Solution} Refills: 6 Ordered:26-Jan-2014 HARESH Griffin Start : 26-Jan-2014 End : 31-Mar-2015 Discontinued Comments:This order discontinued per [facility]. RA Fish Oil 1000 MG Oral Capsule 1 (one) Capsule Capsule qd for 0 days Quantity: 30 {Capsule} Refills: 3 Ordered:03-Jul-2016 Laurel Thomas LPN Start : 30-Aug-2015 End : 03-Jul-2016 Discontinued Allergies and Adverse Reactions Name Dates Details Cephalosporins (Allergy) Status: Active Comments: duricef -- diarrhea Lasix *DIURETICS* (Allergy) Status: Active Naprosyn *ANALGESICS - ANTI-INFLAMMATORY* Status: Active (Allergy) Pletal *HEMATOLOGICAL AGENTS - MISC.* (Allergy) Status: Active Comments: itching Past Medical History Name Dates Details Abdominal pain, bilateral lower quadrant (R10.31, 789.03) Comments: bloating and pressure Status: Inactive as of 01-Apr-2015 Arthritis (M19.90, 716.90) Status: Inactive as of 01-Jun-2015 BMI 37.0-37.9, adult (Z68.37, V85.37) Status: Inactive as of 10-Jan-2017 BMI 37.0-37.9, adult (Z68.37, V85.37) Status: Inactive as of 27-Apr-2017 BMI 37.0-37.9, adult (Z68.37, V85.37) Status: Inactive as of 21-Aug-2017 BMI 38.0-38.9,adult (Z68.38, V85.38) Status: Inactive as of 06-Nov-2016 BMI 39.0-39.9,adult (Z68.39, V85.39) Status: Inactive as of 10-Jan-2017 Cataract (H26.9, 366.9) Status: Inactive as of 12-May-2013 Cellulitis (L03.90, 682.9) Comments: better and sore on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 chief complaint of pain and numbness in the right hand. ELECTRODIAGNOSTIC FINDINGS: On nerve conduction study, right median motor nerve demonstrates prolonged distal latency with normal amplitude and reduced conduction velocity. Normal ulnar motor response is noted. Mildly prolonged median and ulnar F w aves. Prolonged right median sensory distal latency. Prolonged right ulnar sensory latency is noted. On needle EMG, 1+ fibrillations were noted in the right infraspinatus, right deltoid and right mi d cervical paraspinals. Motor unit action potentials were of normal amplitude and duration. ELECTRODIAGNOSTIC IMPRESSION: This is an abnormal study in the right upper limb. 1. Electrodiagnostic fin dings demonstrate right-sided median mononeuropathy. This is consistent with a uzpb-bo-wbrphbhr right carpal tunnel syndrome. 2. Electrodiagnostic findings demonstrate acute right-sided C5 radiculopat hy. If there are any questions in regards to this exam, please do not hesitate to contact me. 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 Machine Operator: Signed 20-Jul-2015 Renal Artery Duplex Result: Comments: See Note; NOTES: [facility] Cardiovascular Services [address] [place] [address] Renal Artery Duplex Ultrasound 07/20/15 0853 MR#: [id number] Acct: [id number] Name: TIA SERVIN Rep #: [id number] : 1945 70 From: Martinez Faulkner MD Attending Dr: Katelyn Dempsey MD Status: REG CLI Ordering Dr: Katelyn Dempsey MD Date: 07/20/15 Location: [facility] S ex: F C Admitted: Reason For Study: HTN Right Renal Artery Left Renal Parenchyma Right renal artery proximal Left upper pole medulla 27.5/ 8.25 125/28.6 PSV/EDV. PSV/EDV . Right renal arter y mid 99.0/20.9 Left upper pole medulla EDR .3 . PSV/EDV. Left upper pole medulla R.I. .7 . Right renal artery distal 117/25.3 UP Cortex 25.3/5.5 PSV/EDV. PSV/EDV. Left upper pole cortex EDR .22 . Right Renal Parenchyma Left upper pole cortex R.I. .78 . Upper Pole Medula 39.4/7.8 PSV/EDV. Left lower Pole medulla 36.9/ 8.8 Right upper pole medulla EDR .2 . PSV/EDV . Right upper pole medulla R. I. .8 . Left lower pole medulla EDR .24 . Upper Cedric Cortx 16.4/6.16 PSV/EDV. Left lower pole medulla R.I. .76 . Right upper pole cortex EDR .37 . Lower Pole Cortx 25.3/8.25 PSV /EDV. Right upper po le cortex R.I. .63 . Left lower pole cortex EDR .33 . Right lower Pole medulla 43.5/7.8 Left lower pole cortex R.I. .67 . PSV/EDV . Left Renal Hilar Right lower pole medulla EDR .18 . Left hilar acc eleration time 44 Right lower pole medulla R.I. .82 . m/sec. Lower Pole Cortex 25.9/6.98 LT Hilar avg 61.9/11.7 PSV/EDV . PSV/EDV. Left Renal Dimensions Right lower pole cortex EDR .27 . Left kidne y size 10.7 cm . Right lower pole cortex R.I. .73 . Left cortical dimension 1.52 cm . Right Renal Hilar Right hilar acceleration time 59 m/sec. Right Hilar avg 65.5/10.5 PSV/EDV. Right Renal Dime nsions Right kidney size 10.9 cm . Right cortical dimension 1.04 cm . Aorta Proximal abdominal aorta .97 x .917 cm . Proximal abdominal aorta peak systolic velocity is 70.6 cm/sec . Limited study due to pt body habitus. Interpretation Summary Dimensions of the intra-abdominal aorta appear normal, without evidence of aneurysmal dilatation. However, the mid- and distal intra-abdominal aorta were not visualized due to the patient's body habitus. Right renal artery systolic velocities appear normal. Left renal arteries were not visualized. Hilar acceleration times are normal bilaterally. There is no evidence of right renal artery stenosis. The left renal artery could not be fully assessed. Renovascular resistance appears to be bilaterally elevated . The right cortical dimension is n ormal. The left cortical dimension is increased. Kidneys appear normal in size bilaterally. 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 Hypertension. TECHNIQUE: Ultrasound evaluation of the kidneys was performed with real-time and static baptiste-scale im aging. COMPARISON: None. FINDINGS: RIGHT KIDNEY: Normal location of the right kidney, which is normal in size. The right kidney measures 10.6 x 4.5 x 5.1 cm. There is a normal cortex of the right kidney. The renal cortex measures 1.7 cm. There is no right renal mass or cyst. There are no right renal calculi. There is no right hydronephrosis. DISTAL RIGH T URETER: There is non-visualization of the distal right ureter. There is no demonstrated right ureterovesical junction calculus. There is no demonstrated right ureteral jet. LEFT KIDNEY: Normal loc ation of the left kidney, which is normal in size. The left kidney measures 10.7 x 4.9 x 5.0 cm. There is a normal cortex of the left kidney. The renal cortex measures 1.8 cm. There is no left renal mass or cyst. There are no left renal calculi. There is no left hydronephrosis. DISTAL LEFT URETER: There is non-visualization of the distal left ureter. There is no demonstrated left ureterovesical junction calculus. There is no demonstrated left ureteral jet. BLADDER: The distended urinary bladder has a volume of 108 ml. There is a normal wall thickness of the distended urinary bladder. Ther e is no demonstrated mass within the urinary bladder. There are no demonstrated bladder calculi. IMPRESSION: Normal ultrasound of the kidneys and urinary bladde r. Electronically Signed: Arabella Peace MD at 13:01 EDT , Service support [phone], CC: Katelyn eDmpsey MD Grinding Machine Operator: Signed 20-Jul-2015 Brain W/WO Contrast Result: Comments: See Note; NOTES: [facility] Imaging Services [address] [place] [address] [place] 4d Brain W/WO Contrast MR#: [id number] Acct: [id number] Name: TIA SERVIN Rep #: [id number] : 1945 F 70 From: Arabella Peace MD PCP: Katelyn Dempsey MD Status: REG CLI Study: Brain W/WO Contrast Date of Exam: 07/20/15 Exam# [id number] Ordering Dr: Moe Dempsey MD STUDY: MRI BRAIN WITH AND WITHOUT CONTRAST REASON FOR EXAM: Female, 70 years old. Right-sided numbness and tightness sensation right arm and leg. TECHNIQUE: Standardized multiplanar fat a nd water weighted pulse sequences were obtained. 10 ml of Gadavist contrast material was administered intravenously for the contrast portion of the examination. COMPARISON: None. FINDINGS: There is moderate cerebral atrophy with widening of the extra-axial spaces and ventricular dilatation. There are a limited number of small white matter hyperintensities, distributed throughout the deep white matter tracts of the cerebral hemispheres, consistent with mild chronic white matter ischemic changes. There is no evidence for recent intracranial ischemia or other cause of cytotoxic edema on diffusion weighted imaging (DWI). Normal T2* images of the brain without demonstrated susceptibility artifact. There is no demonstrated hemosiderin stain. Normal bilateral basal ganglia. Normal thalami. There is no extra-axial fluid accumulation. Normal flow voids within the major intracranial circulation suggesting patency by spin echo criteria. Normal veno us enhancement. There is no enhancing intra-axial or extra-axial abnormality. Normal sella turcica, pituitary gland, infundibular stalk, optic chiasm and hypothalamus. Normal tectal plate and pineal gland. There is a small focus of abnormal T2 hyperintensity within the right paramedian srinivasa. This may be the result of previous ischemia. This is best seen on the T2 images. The brainstem includin g the medulla and midbrain are within normal limits. There are mild involutional changes in the cerebellum. Normal basal cisterns. Normal bilateral temporal bones. Normal bilateral internal auditory canals. There is an ocular lens implant the left globe. Normal right globe. The intraorbital contents otherwise are normal. There is mucoperiosteal inflammatory disease of the paranasal sinuses cons istent with mild chronic sinusitis. Normal calvarium and skull base. Normal visualized soft tissue structures. Normal visualized upper cervical spine. IMPRESSION : 1. No MR evidence for acute infarct. 2. Moderate involutional changes and mild sequela of microvascular disease. 3. 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 Electronically Signed: Arabella Peace MD at 12:28 EDT , Service support [phone], CC: Katelyn Dempsey MD Grinding Machine Operator: Signed 20-Jul-2015 Spine Cervical (Routine) Result: Comments: See Note; NOTES: [facility] Imaging Services [address] [place] [id number] [place] [address] 4d Spine Cervical (Routine) MR#: [id number] Acct: [id number] Name: TIA ANDRADE Rep #: [id number] : 1945 F 70 From: Arabella Peace MD PCP: Katelyn Dempsey MD Status: REG CLI Study: Spine Cervical (Routine) Date of Exam: 07/20/15 Exam# [id number] Ordering Dr: Katelny Irby MD STUDY: MRI CERVICAL SPINE WITHOUT CONTRAST REASON FOR EXAM: Female, 70 years old. Right-sided numbness and tightness sensation in the right arm and leg. TECHNIQUE: Standardized fat and water weighted pulse sequences were obtained in the sagittal and axial planes. COMPARISON: None FINDINGS: Normal foramen magnum and brainstem-cervical cord junction. Normal craniovertebral junction. There are degenerative changes of the anterior atlantoaxial articulation. Normal odontoid process. There is straightening of the normal cervical lordo sis. There is decreased height of the C5 and C6 vertebral body that may be related to mild old compression fractures. C2-3: There is a small focal right central disc protrusion in addition to mild disc bulge. There is mild central acquired canal stenosis. There is degenerative arthropathy of the facet joints, left worse than right. There is mild neural foraminal narrowing. C3-4: There is a br oad right central disc protrusion. There is moderate acquired canal stenosis with displacement of the spinal cord posteriorly. There is moderate right-sided neural foraminal narrowing and mild left-s ided neural foraminal narrowing. There is no definite nerve impingement. C4- 5: There is severe narrowing of the disc with osteophyte complex causing moderate acquired canal stenosis. There is severe bilateral neural foraminal narrowing with probable nerve impingement. C5-6: There is a large osteophyte complex causing severe acquired canal stenosis and apparent impingement of the spinal cord at this level. The neural foramina are severely narrowed with probable nerve root impingement at the neural foramina. C6-7: There is a broad central disc protrusion with moderate acquired canal steno sis. There is mild flattening of the spinal cord at this level consistent with spinal cord impingement. There is severe bilateral neural foramina narrowing with apparent impingement of the nerve roots at the neural foramina. C7-T1: Normal endplates. Normal disc height, signal and morphology. Normal central canal and intervertebral neural foramina. Normal cervical cord. There is no demonstrated cervical cord syrinx cavity. Normal visualized soft tissue structures. IMPRESSION: Moderately severe multilevel degenerative disc disease and degenerative ar thropathy of the cervical spine with acquired canal stenosis, neural foraminal narrowing and potential nerve impingement, as described. Electronically Signed: Arabella Peace MD at 11:49 ED T , Service support [phone], CC: Katelyn Dempsey MD Grinding Machine Operator: Signed 17-Jun-2015 Echocardiogram Complete Result: Comments: See Note; NOTES: [facility] Cardiovascular Services [address] [place] [address] Echo Complete 06/17/15 0753 MR#: [id number] Acct: [id number] Name: TIA ANDRADE Rep #: [id number] : 1945 70 From: Pawan Cross MD Attending Dr: Pawan Cross MD Status: REG CLI Ordering Dr: Pawan Cross MD Date: 06/17/15 Location: [facility] Sex: F C Admit noy: Reason For Study: CAD Procedure This was a 2D Doppler, Color Flow transthoracic echocardiogram. Exam performed in department. Left Ventricle Moderate concentric left ventricular hypert rophy. The estimated ejection fraction is 65 %. No regional wall motion abnormalities noted. Right Ventricle Normal size and thickness. Normal systolic function. Atria The left atrium is severely enlarged. Normal right atrium. Normal atrial septum. Mitral Valve Moderate diffuse mitral valve thickening. Mitral valve doming/Hockey Sticking. Moderate mitral annular calcifica tion extending into the posterior leaflet. Mild-Moderate mitral valve stenosis. Peak transmitral valve gradient 11 mmHg. Mean transmitral valve gradient 4 mmHg. Mild (1+) mitral valve insufficiency. Tricuspid Valve Normal tricuspid valve. Mild (1+) tricuspid valve insufficiency. Right ventricular systolic pressure estimated to be 38 mmHg. Aortic Valve Trisinus/trileaflet aortic valve. Mild diffuse aortic valve thickening. Mild restriction of the aortic valve. Mild aortic stenosis. Peak aortic valve gradient 13 mmHg. Mean aortic valve gradient 6 mmHg. Mild (1+) anteriorly directed aort ic valve insufficiency. Pulmonic Valve Normal pulmonic valve. Trivial eccentric pulmonic valve insufficiency. Great Vessels Calcified aortic root. Mild atherosclerosis of the aortic arch. Normal in ferior vena cava. Inferior vena cava collapse with sniff. Pericardium/Pleural No pericardial effusion. MMode/2D Measurements AND Calculations LVIDd: 3.9 cm IVSd: 2.0 cm LVOT diam: 2.0 cm LVIDs: 2.6 cm LVPWd: 1.2 cm LVOT area: 3.0 cm2 RVDd: 3.9 cm FS: 33.5 % Ao root diam: 3.5 cm LAV(MOD-bp): 69.3 ml LA A4 are a: 24.0 cm2 LA dimension: 4.0 cm LAV(MOD-bp) Indexed: 35.7 ml/m2 LAV(MOD-sp2): 62.2 ml LAV(MOD-sp4): 75.7 ml RA A4 area: 11.2 cm2 Time Measurements MV dec time: 0.45 sec Doppler Measurements AND Calculations MV V2 max: 165.0 cm/sec Ao V2 max: 177.9 cm/sec AI max john: 392.6 cm/sec MV max P.9 mmHg Ao ma x P.7 mmHg AI max P.7 mmHg MV V2 mean: 96.3 cm/sec Ao max PG (full): 8.3 mmHg AI dec slope: 322.4 cm/sec2 MV mean P.1 mmHg Ao V2 mean: 116.9 cm/sec AI P1/2t: 356.7 msec MV V2 VTI: 42.4 cm Ao mean P.1 mmHg MVA(VTI): 1.5 cm2 Ao mean PG (full): 3.9 mmHg Ao V2 VTI: 33.1 cm BRANDIN(I,D): 1.9 cm2 BRANDIN(V,D): 1.8 cm2 LV V1 max: 104.7 cm/sec MR max john: 459.2 cm/sec SV(LVOT): 63.3 ml LV V1 max P.4 mmHg MR max P.4 mmHg LV V1 mean P.2 mmHg LV V1 mean: 69.6 cm/sec LV V1 VTI: 20.8 cm ___ PA V2 max: 121.0 cm/sec TR max john: 286.1 cm/sec TR max P.9 mmHg Interpretation Summary Moderate concentric left ventricular hypertrophy. The estimated ejection fraction is 65 %. The left atrium is severely enlarged. Moderate diffuse mitral valve thickening. Mild- Moderate mitral valve stenosis. Peak transmit ral valve gradient 11 mmHg. Mild (1+) mitral valve insufficiency. Right ventricular systolic pressure estimated to be 38 mmHg. Mild aortic stenosis. Mild (1+) anteriorly directed aortic valve insuff iciency. There is no comparison study available. Ordering Physician: Pawan Cross Referring Physician: Katelyn Dempsey M.D. 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 Confusion RADIATION DOSAGE (If Supplied By Facility): CTDIvol = ( 58.38 ) mGy, DLP = ( 1021.75 ) m Gycm TECHNIQUE: Transaxial CT imaging of the brain was performed without administration of intravenous contrast material. COMPARISON: None. FINDINGS: Normal soft tissue structures. Normal calvarium. There is mild cerebral atrophy with widening of the extra-axial spaces and ventricular dilatation. There are areas of decreased attenuation within the whit e matter tracts of the supratentorial brain, consistent with microvascular disease changes. Normal basal ganglia and thalami. There is an old lacunar infarct in the srinivasa. There is mild cerebellar atro phy. There is no intracranial hemorrhage. There are no findings of an acute ischemic infarction. Normal visualized paranasal sinuses. IMPRESSION: There are chronic involutional changes. There is an old lacunar infarct in the srinivasa. There is NO hemorrhage, edema, mass, mass effect or midline shift. Electronically Signed: Kahlil Waters MD 0 at 3:47 EST , Service support [phone], CC: Katelyn Dempsey MD; Oleg Nash M.D. Grinding Machine Operator: Signed 16-Feb-2014 Pelvic (Non ) Result: Comments: See Note; NOTES: [facility] Imaging Services [address] [place] [address] Ultrasound Report MR#: [id number] Acct: [id number] Name: TIA SERVIN Rep #: [id number] : 1945 F 68 From: Misbah Elaine DO PCP: Katelyn Dempsey MD Status: REG CLI Study: Pelvic (Non ) Date of Exam: 02/16/14 Exam# [id number] Ordering Dr: Katelyn Dempsey MD STUD Y: ULTRASOUND OF THE FEMALE PELVIS - COMPLETE REASON FOR EXAM: Female, 68 years old. LMP: Postmenopausal abdominal pain TECHNIQUE: Transabdominal and Transvaginal TECHNICAL QUALITY: Adequate. C OMPARISON: None. FINDINGS: The uterus is surgically absent. The right ovary is visualized. The right ovary measures 1.3 x 1.1 x 1.2 cm. There is no right ovari an cyst or ovarian mass. There is no visualized right adnexal mass or complex lesion. There is normal arterial and normal venous vascularity. The left ovary is visualized. The left ovary measures 1. 6 x 1 x 0.9 cm. There is no left ovarian cyst or ovarian mass. There is no visualized left adnexal mass or complex lesion. There is normal arterial and normal venous vascularity. There is no fluid in the cul-de-sac. The bladder was only minimally distended at the time of the examination. IMPRESSION: The uterus is surgically absent. No discrete abnormality seen within the ovaries, which are small, consistent with postmenopausal state. Electronically Signed: Misbah Elaine DO at 4:59 EST Tel , Service support [phone], CC: Katelyn Dempsey MD Grinding Machine Operator: Signed Immunization Name Dates Details Pneumococcal conjugate vaccine, 13 valent, IM on: Aug-2015 Family History Unknown Family Member Name Dates Details First Degree Relatives Comments: ETOH, DM, Emotional, Heart/lung dx, HBP, high cholesterol, Thyroid dx Status: Active Social History Name Dates Details Alcohol Use Comments: Occasional alcohol use Status: Active Caffeine Use Comments: 4 QD Status: Active Current Work/Study Status Status: Active Exercise History Comments: Does not exercise Status: Active Living Situation Comments: Single, heterosexual, lives alone Status: Active Most Recent 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, 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, Status: Active No Drug Use Status: Active Tobacco Use Comments: Remotely quit tobacco use 1987 Status: Active Vital Signs Date Test Result Details [id number] Temperature 97.8 f Comments: Method: Temporal Pulse 73 /min Comments: Pattern: Regular Respiration Rate 16 /min Comments: Pattern: Unlabored O2 SAT 94 % Comments: Room air BP Systolic 126 mm[Hg] Comments: Patient Position: Sitting; Cuff Location: Left Arm; Cuff Size: Standard BP Diastolic 62 mm[Hg] Comments: Patient Position: Sitting; Cuff Location: Left Arm; Cuff Size: Standard Weight 210 lb Height 64.25 in Body Mass Index Calculated 35.77 kg/m2 Body Surface Area Calculated 2 m2 [id number]:59 Temperature 97.3 f Comments: Method: Temporal Pulse 77 /min Comments: Pattern: Regular Respiration Rate 20 /min Comments: Pattern: Unlabored O2 SAT 95 % Comments: Room air BP Systolic 142 mm[Hg] Comments: Patient Position: Sitting; Cuff Location: Left Arm; Cuff Size: Standard BP Diastolic 52 mm[Hg] Comments: Patient Position: Sitting; Cuff Location: Left Arm; Cuff Size: Standard Weight 217.0625 lb Height 64.25 in Body Mass Index Calculated 36.97 kg/m2 Body Surface Area Calculated 2.03 m2 :11 Temperature 97.3 f Pulse 87 /min Comments: Pattern: Regular Respiration Rate 16 /min Comments: Pattern: Unlabored O2 SAT 92 % Comments: Room air BP Systolic 120 mm[Hg] Comments: Patient Position: Sitting; Cuff Location: Left Arm; Cuff Size: Standard BP Diastolic 62 mm[Hg] Comments: Patient Position: Sitting; Cuff Location: Left Arm; Cuff Size: Standard Weight 218.0625 lb Height 64.25 in Body Mass Index Calculated 37.14 kg/m2 Body Surface Area Calculated 2.04 m2 :45 Temperature 97.4 f Pulse 73 /min Comments: Pattern: Regular Respiration Rate 16 /min Comments: Pattern: Unlabored O2 SAT 94 % Comments: Room air BP Systolic 142 mm[Hg] Comments: Patient Position: Sitting; Cuff Location: Left Arm; Cuff Size: Standard BP Diastolic 82 mm[Hg] Comments: Patient Position: Sitting; Cuff Location: Left Arm; Cuff Size: Standard Weight 218 lb Height 64.25 in Body Mass Index Calculated 37.13 kg/m2 Body Surface Area Calculated 2.03 m2 :58 Temperature 97.6 f Comments: Method: Axillary Pulse 70 /min Comments: Pattern: Regular Respiration Rate 20 /min Comments: Pattern: Unlabored O2 SAT 97 % Comments: Room air BP Systolic 120 mm[Hg] Comments: Patient Position: Sitting; Cuff Location: Left Arm; Cuff Size: Large BP Diastolic 80 mm[Hg] Comments: Patient Position: Sitting; Cuff Location: Left Arm; Cuff Size: Large Weight 220 lb Height 64.25 in Body Mass Index Calculated 37.47 kg/m2 Body Surface Area Calculated 2.04 m2 :11 Temperature 98.2 f Pulse 69 /min Comments: Pattern: Regular Respiration Rate 16 /min Comments: Pattern: Unlabored O2 SAT 94 % Comments: Room air BP Systolic 124 mm[Hg] Comments: Patient Position: Sitting; Cuff Location: Left Arm; Cuff Size: Standard BP Diastolic 72 mm[Hg] Comments: Patient Position: Sitting; Cuff Location: Left Arm; Cuff Size: Standard Weight 220 lb Height 64.25 in Body Mass Index Calculated 37.47 kg/m2 Body Surface Area Calculated 2.04 m2 :48 Temperature 97.6 f Pulse 87 /min Comments: Pattern: Regular Respiration Rate 16 /min Comments: Pattern: Unlabored O2 SAT 96 % Comments: Room air BP Systolic 116 mm[Hg] Comments: Patient Position: Sitting; Cuff Location: Left Arm; Cuff Size: Standard BP Diastolic 78 mm[Hg] Comments: Patient Position: Sitting; Cuff Location: Left Arm; Cuff Size: Standard Weight 220.5 lb Height 64.25 in Body Mass Index Calculated 37.55 kg/m2 Body Surface Area Calculated 2.04 m2 :55 Temperature 97 f Pulse 80 /min Comments: Pattern: Regular Respiration Rate 16 /min Comments: Pattern: Unlabored O2 SAT 98 % Comments: Room air BP Systolic 118 mm[Hg] Comments: Patient Position: Sitting; Cuff Location: Left Arm; Cuff Size: Standard BP Diastolic 76 mm[Hg] Comments: Patient Position: Sitting; Cuff Location: Left Arm; Cuff Size: Standard Weight 227.5 lb Height 64.25 in Body Mass Index Calculated 38.75 kg/m2 Body Surface Area Calculated 2.07 m2 :34 Temperature 97 f Pulse 78 /min Comments: Pattern: Regular Respiration Rate 17 /min Comments: Pattern: Unlabored O2 SAT 97 % Comments: Room air BP Systolic 124 mm[Hg] Comments: Patient Position: Sitting; Cuff Location: Left Arm; Cuff Size: Standard BP Diastolic 82 mm[Hg] Comments: Patient Position: Sitting; Cuff Location: Left Arm; Cuff Size: Standard Weight 218 lb Height 64.25 in Body Mass Index Calculated 37.13 kg/m2 Body Surface Area Calculated 2.03 m2 :02 Temperature 97.8 f Pulse 82 /min Comments: Pattern: Regular Respiration Rate 18 /min Comments: Pattern: Unlabored O2 SAT 94 % Comments: Room air BP Systolic 140 mm[Hg] Comments: Patient Position: Sitting; Cuff Location: Left Arm; Cuff Size: Standard BP Diastolic 60 mm[Hg] Comments: Patient Position: Sitting; Cuff Location: Left Arm; Cuff Size: Standard Weight 230 lb Height 64.25 in Body Mass Index Calculated 39.17 kg/m2 Body Surface Area Calculated 2.08 m2 :33 Temperature 97.9 f Comments: Method: Temporal Pulse 72 /min Comments: Pattern: Regular Respiration Rate 16 /min Comments: Pattern: Unlabored O2 SAT 98 % Comments: Room air BP Systolic 124 mm[Hg] Comments: Patient Position: Sitting; Cuff Location: Left Arm; Cuff Size: Standard BP Diastolic 60 mm[Hg] Comments: Patient Position: Sitting; Cuff Location: Left Arm; Cuff Size: Standard Weight 230 lb Height 64.25 in Body Mass Index Calculated 39.17 kg/m2 Body Surface Area Calculated 2.08 m2 :44 Pulse 88 /min Comments: Pattern: Regular Respiration Rate 18 /min Comments: Pattern: Unlabored O2 SAT 96 % Comments: Room air BP Systolic 138 mm[Hg] Comments: Patient Position: Sitting; Cuff Location: Left Arm; Cuff Size: Standard BP Diastolic 66 mm[Hg] Comments: Patient Position: Sitting; Cuff Location: Left Arm; Cuff Size: Standard Weight 226 lb Height 64.25 in Body Mass Index Calculated 38.49 kg/m2 Body Surface Area Calculated 2.07 m2 :21 Pulse 92 /min Comments: Pattern: Regular Respiration Rate 17 /min Comments: Pattern: Unlabored BP Systolic 138 mm[Hg] Comments: Patient Position: Sitting; Cuff Location: Left Arm; Cuff Size: Standard BP Diastolic 74 mm[Hg] Comments: Patient Position: Sitting; Cuff Location: Left Arm; Cuff Size: Standard Weight 226 lb Height 64.25 in Body Mass Index Calculated 38.49 kg/m2 Body Surface Area Calculated 2.07 m2 :59 Temperature 97.2 f Comments: Method: Temporal Pulse 88 /min Comments: Pattern: Regular Respiration Rate 18 /min Comments: Pattern: Unlabored O2 SAT 96 % Comments: Room air BP Systolic 138 mm[Hg] Comments: Patient Position: Sitting; Cuff Location: Left Arm; Cuff Size: Standard BP Diastolic 72 mm[Hg] Comments: Patient Position: Sitting; Cuff Location: Left Arm; Cuff Size: Standard Weight 206 lb Height 64.25 in Body Mass Index Calculated 35.08 kg/m2 Body Surface Area Calculated 1.99 m2 :09 Temperature 97.4 f Comments: Method: Oral Pulse 85 /min Comments: Pattern: Regular Respiration Rate 16 /min Comments: Pattern: Unlabored O2 SAT 97 % Comments: Room air BP Systolic 112 mm[Hg] Comments: Patient Position: Sitting; Cuff Location: Left Arm; Cuff Size: Standard BP Diastolic 78 mm[Hg] Comments: Patient Position: Sitting; Cuff Location: Left Arm; Cuff Size: Standard Weight 206 lb Height 64.25 in Body Mass Index Calculated 35.08 kg/m2 Body Surface Area Calculated 1.99 m2 :48 Temperature 97.5 f Comments: Method: Temporal Pulse 76 /min Comments: Pattern: Regular Respiration Rate 18 /min Comments: Pattern: Unlabored O2 SAT 97 % Comments: Room air BP Systolic 120 mm[Hg] Comments: Patient Position: Sitting; Cuff Location: Left Arm; Cuff Size: Large BP Diastolic 80 mm[Hg] Comments: Patient Position: Sitting; Cuff Location: Left Arm; Cuff Size: Large Weight 206 lb Height 64.25 in Body Mass Index Calculated 35.08 kg/m2 Body Surface Area Calculated 1.99 m2 :51 Temperature 97.6 f Comments: Method: Temporal Pulse 94 /min Comments: Pattern: Regular Respiration Rate 18 /min Comments: Pattern: Unlabored O2 SAT 96 % Comments: Room air Weight 192 lb Height 64.25 in Body Mass Index Calculated 32.7 kg/m2 Body Surface Area Calculated 1.93 m2 :54 Temperature 97.8 f Comments: Method: Oral Pulse 86 /min Comments: Pattern: Regular Respiration Rate 16 /min Comments: Pattern: Unlabored O2 SAT 96 % Comments: Room air BP Systolic 124 mm[Hg] Comments: Patient Position: Sitting; Cuff Location: Left Arm; Cuff Size: Standard BP Diastolic 70 mm[Hg] Comments: Patient Position: Sitting; Cuff Location: Left Arm; Cuff Size: Standard Weight 192 lb Height 64.25 in Body Mass Index Calculated 32.7 kg/m2 Body Surface Area Calculated 1.93 m2 :51 Temperature 97.6 f Comments: Method: Temporal Pulse 94 /min Comments: Pattern: Regular Respiration Rate 20 /min Comments: Pattern: Unlabored O2 SAT 95 % Comments: Room air BP Systolic 126 mm[Hg] Comments: Patient Position: Sitting; Cuff Location: Left Arm; Cuff Size: Large BP Diastolic 78 mm[Hg] Comments: Patient Position: Sitting; Cuff Location: Left Arm; Cuff Size: Large Weight 192 lb Height 64.25 in Body Mass Index Calculated 32.7 kg/m2 Body Surface Area Calculated 1.93 m2 :09 Comments: Had eye exam with glaucoma screen lat october and just got notice to schedule appt with dr sage Temperature 98.1 f Comments: Method: Temporal Pulse 74 /min Comments: Pattern: Regular Respiration Rate 16 /min Comments: Pattern: Unlabored O2 SAT 97 % Comments: Room air BP Systolic 132 mm[Hg] Comments: Patient Position: Sitting; Cuff Location: Left Arm; Cuff Size: Standard BP Diastolic 70 mm[Hg] Comments: Patient Position: Sitting; Cuff Location: Left Arm; Cuff Size: Standard Weight 195.6 lb Height 64.25 in Body Mass Index Calculated 33.31 kg/m2 Body Surface Area Calculated 1.94 m2 :46 Temperature 97.8 f Comments: Method: Temporal Pulse 83 /min Comments: Pattern: Regular Respiration Rate 17 /min Comments: Pattern: Unlabored O2 SAT 93 % Comments: Room air BP Systolic 144 mm[Hg] Comments: Patient Position: Sitting; Cuff Location: Left Arm; Cuff Size: Standard BP Diastolic 80 mm[Hg] Comments: Patient Position: Sitting; Cuff Location: Left Arm; Cuff Size: Standard Weight 204 lb Height 64.25 in Body Mass Index Calculated 34.74 kg/m2 Body Surface Area Calculated 1.98 m2 :26 Temperature 97.8 f Comments: Method: Temporal Pulse 78 /min Comments: Pattern: Regular Respiration Rate 20 /min Comments: Pattern: Unlabored BP Systolic 120 mm[Hg] Comments: Patient Position: Sitting; Cuff Location: Left Arm; Cuff Size: Large BP Diastolic 78 mm[Hg] Comments: Patient Position: Sitting; Cuff Location: Left Arm; Cuff Size: Large Weight 210 lb Height 64.25 in Body Mass Index Calculated 35.77 kg/m2 Body Surface Area Calculated 2 m2 :02 Temperature 97.9 f Comments: Method: Oral Pulse 78 /min Comments: Pattern: Regular Respiration Rate 20 /min Comments: Pattern: Unlabored BP Systolic 116 mm[Hg] Comments: Patient Position: Sitting; Cuff Location: Left Arm; Cuff Size: Standard BP Diastolic 74 mm[Hg] Comments: Patient Position: Sitting; Cuff Location: Left Arm; Cuff Size: Standard Weight 218 lb Height 64.25 in Body Mass Index Calculated 37.13 kg/m2 Body Surface Area Calculated 2.03 m2 :53 Temperature 97.6 f Comments: Method: Oral Pulse 74 /min Comments: Pattern: Regular Respiration Rate 20 /min Comments: Pattern: Unlabored BP Systolic 140 mm[Hg] Comments: Patient Position: Sitting; Cuff Location: Left Arm; Cuff Size: Large BP Diastolic 80 mm[Hg] Comments: Patient Position: Sitting; Cuff Location: Left Arm; Cuff Size: Large Weight 208 lb Height 64.25 in Body Mass Index Calculated 35.43 kg/m2 Body Surface Area Calculated 1.99 m2 :11 Temperature 97.1 f Comments: Method: Oral Pulse 72 /min Comments: Pattern: Regular Respiration Rate 20 /min Comments: Pattern: Unlabored BP Systolic 124 mm[Hg] Comments: Patient Position: Sitting; Cuff Location: Left Arm; Cuff Size: Standard BP Diastolic 78 mm[Hg] Comments: Patient Position: Sitting; Cuff Location: Left Arm; Cuff Size: Standard Weight 210 lb Height 64.25 in Body Mass Index Calculated 35.77 kg/m2 Body Surface Area Calculated 2 m2 :45 Temperature 97.8 f Comments: Method: Temporal Pulse 66 /min Comments: Pattern: Regular Respiration Rate 16 /min Comments: Pattern: Unlabored O2 SAT 97 % Comments: Room air BP Systolic 126 mm[Hg] Comments: Patient Position: Sitting; Cuff Location: Left Arm; Cuff Size: Standard BP Diastolic 74 mm[Hg] Comments: Patient Position: Sitting; Cuff Location: Left Arm; Cuff Size: Standard Weight 206.8 lb Height 64.25 in Body Mass Index Calculated 35.22 kg/m2 Body Surface Area Calculated 1.99 m2 :30 Temperature 97.5 f Comments: Method: Temporal Pulse 80 /min Comments: Pattern: Regular Respiration Rate 16 /min Comments: Pattern: Unlabored O2 SAT 96 % Comments: Room air BP Systolic 126 mm[Hg] Comments: Patient Position: Sitting; Cuff Location: Left Arm; Cuff Size: Standard BP Diastolic 74 mm[Hg] Comments: Patient Position: Sitting; Cuff Location: Left Arm; Cuff Size: Standard Weight 210 lb Height 64.25 in Body Mass Index Calculated 35.77 kg/m2 Body Surface Area Calculated 2 m2 :13 Temperature 98 f Comments: Method: Oral Pulse 56 /min Comments: Pattern: Regular Respiration Rate 16 /min Comments: Pattern: Unlabored BP Systolic 120 mm[Hg] Comments: Patient Position: Sitting; Cuff Location: Left Arm; Cuff Size: Standard BP Diastolic 62 mm[Hg] Comments: Patient Position: Sitting; Cuff Location: Left Arm; Cuff Size: Standard Weight 227 lb Height 64.25 in Body Mass Index Calculated 38.66 kg/m2 Body Surface Area Calculated 2.07 m2 :29 Temperature 98 f Comments: Method: Oral Pulse 78 /min Comments: Pattern: Regular Respiration Rate 17 /min O2 SAT 98 % Comments: Room air BP Systolic 160 mm[Hg] Comments: Patient Position: Sitting; Cuff Location: Left Arm; Cuff Size: Standard BP Diastolic 84 mm[Hg] Comments: Patient Position: Sitting; Cuff Location: Left Arm; Cuff Size: Standard Weight 227 lb Height 64.25 in Body Mass Index Calculated 38.66 kg/m2 Body Surface Area Calculated 2.07 m2 :35 Comments: has [facility] Temperature 97.1 f Comments: Method: Temporal Pulse 72 /min Comments: Pattern: Regular Respiration Rate 16 /min Comments: Pattern: Unlabored O2 SAT 93 % Comments: Room air BP Systolic 126 mm[Hg] Comments: Patient Position: Sitting; Cuff Location: Left Arm; Cuff Size: Standard BP Diastolic 74 mm[Hg] Comments: Patient Position: Sitting; Cuff Location: Left Arm; Cuff Size: Standard Weight 227 lb Height 64.25 in Body Mass Index Calculated 38.66 kg/m2 Body Surface Area Calculated 2.07 m2 :00 Temperature 97.4 f Comments: Method: Temporal Pulse 76 /min Comments: Pattern: Regular Respiration Rate 16 /min Comments: Pattern: Unlabored BP Systolic 132 mm[Hg] Comments: Patient Position: Sitting; Cuff Location: Left Arm; Cuff Size: Standard BP Diastolic 80 mm[Hg] Comments: Patient Position: Sitting; Cuff Location: Left Arm; Cuff Size: Standard Weight 245 lb Height 66 in Body Mass Index Calculated 39.54 kg/m2 Body Surface Area Calculated 2.18 m2 :59 Temperature 98.6 f Comments: Method: Oral Pulse 94 /min Comments: Pattern: Regular Respiration Rate 18 /min O2 SAT 95 % Comments: Room air BP Systolic 148 mm[Hg] Comments: Patient Position: Sitting; Cuff Location: Left Arm; Cuff Size: Standard BP Diastolic 88 mm[Hg] Comments: Patient Position: Sitting; Cuff Location: Left Arm; Cuff Size: Standard Weight 262 lb Height 66 in Body Mass Index Calculated 42.29 kg/m2 Body Surface Area Calculated 2.24 m2 :41 Temperature 97.4 f Comments: Method: Oral Pulse 72 /min Comments: Pattern: Regular Respiration Rate 20 /min Comments: Pattern: Unlabored BP Systolic 118 mm[Hg] Comments: Patient Position: Sitting; Cuff Location: Left Arm; Cuff Size: Standard BP Diastolic 74 mm[Hg] Comments: Patient Position: Sitting; Cuff Location: Left Arm; Cuff Size: Standard Weight 262 lb Height 66 in Body Mass Index Calculated 42.29 kg/m2 Body Surface Area Calculated 2.24 m2 :07 Temperature 98 f Comments: Method: Oral Pulse 76 /min Comments: Pattern: Regular Respiration Rate 20 /min Comments: Pattern: Unlabored BP Systolic 160 mm[Hg] Comments: Patient Position: Sitting; Cuff Location: Left Arm; Cuff Size: Large BP Diastolic 80 mm[Hg] Comments: Patient Position: Sitting; Cuff Location: Left Arm; Cuff Size: Large Weight 283 lb Height 66 in Body Mass Index Calculated 45.68 kg/m2 Body Surface Area Calculated 2.32 m2 :35 Temperature 97.8 f Comments: Method: Oral Pulse 74 /min Comments: Pattern: Regular Respiration Rate 20 /min Comments: Pattern: Unlabored BP Systolic 124 mm[Hg] Comments: Patient Position: Sitting; Cuff Location: Left Arm; Cuff Size: Large BP Diastolic 84 mm[Hg] Comments: Patient Position: Sitting; Cuff Location: Left Arm; Cuff Size: Large Weight 263 lb Height 66 in Body Mass Index Calculated 42.45 kg/m2 Body Surface Area Calculated 2.25 m2 :17 Temperature 98.1 f Comments: Method: Oral Pulse 76 /min Comments: Pattern: Regular Respiration Rate 20 /min Comments: Pattern: Unlabored BP Systolic 120 mm[Hg] Comments: Patient Position: Sitting; Cuff Location: Left Arm; Cuff Size: Large BP Diastolic 80 mm[Hg] Comments: Patient Position: Sitting; Cuff Location: Left Arm; Cuff Size: Large Weight 259 lb Height 66 in Body Mass Index Calculated 41.8 kg/m2 Body Surface Area Calculated 2.23 m2 :33 Temperature 97.9 f Comments: Method: Oral Pulse 78 /min Comments: Pattern: Regular Respiration Rate 20 /min Comments: Pattern: Unlabored BP Systolic 124 mm[Hg] Comments: Patient Position: Sitting; Cuff Location: Left Arm; Cuff Size: Standard BP Diastolic 80 mm[Hg] Comments: Patient Position: Sitting; Cuff Location: Left Arm; Cuff Size: Standard Weight 258 lb Height 66 in Body Mass Index Calculated 41.64 kg/m2 Body Surface Area Calculated 2.23 m2 [id number] Temperature 98.2 f Comments: Method: Oral Pulse 70 /min Comments: Pattern: Regular Respiration Rate 20 /min Comments: Pattern: Unlabored BP Systolic 124 mm[Hg] Comments: Patient Position: Sitting; Cuff Location: Left Arm; Cuff Size: Large BP Diastolic 84 mm[Hg] Comments: Patient Position: Sitting; Cuff Location: Left Arm; Cuff Size: Large Weight 254 lb Height 66 in Body Mass Index Calculated 41 kg/m2 Body Surface Area Calculated 2.21 m2 :07 Temperature 97.9 f Comments: Method: Oral Pulse 78 /min Comments: Pattern: Regular Respiration Rate 22 /min Comments: Pattern: Unlabored BP Systolic 126 mm[Hg] Comments: Patient Position: Sitting; Cuff Location: Left Arm; Cuff Size: Large BP Diastolic 72 mm[Hg] Comments: Patient Position: Sitting; Cuff Location: Left Arm; Cuff Size: Large Weight 258 lb Height 66 in Body Mass Index Calculated 41.64 kg/m2 Body Surface Area Calculated 2.23 m2 :35 Pulse 72 /min Comments: Pattern: Regular Respiration Rate 16 /min Comments: Pattern: Unlabored BP Systolic 122 mm[Hg] Comments: Patient Position: Sitting; Cuff Location: Left Arm; Cuff Size: Standard BP Diastolic 82 mm[Hg] Comments: Patient Position: Sitting; Cuff Location: Left Arm; Cuff Size: Standard Weight 258.5625 lb Height 66 in Body Mass Index Calculated 41.73 kg/m2 Body Surface Area Calculated 2.23 m2 :20 Temperature 97.9 f Comments: Method: Oral Pulse 74 /min Comments: Pattern: Regular Respiration Rate 20 /min Comments: Pattern: Unlabored BP Systolic 124 mm[Hg] Comments: Patient Position: Sitting; Cuff Location: Left Arm; Cuff Size: Large BP Diastolic 78 mm[Hg] Comments: Patient Position: Sitting; Cuff Location: Left Arm; Cuff Size: Large Weight 257 lb Height 66 in Body Mass Index Calculated 41.48 kg/m2 Body Surface Area Calculated 2.23 m2 :34 Temperature 97.6 f Comments: Method: Oral Pulse 76 /min Comments: Pattern: Regular Respiration Rate 24 /min Comments: Pattern: Unlabored BP Systolic 120 mm[Hg] Comments: Patient Position: Sitting; Cuff Location: Left Arm; Cuff Size: Standard BP Diastolic 78 mm[Hg] Comments: Patient Position: Sitting; Cuff Location: Left Arm; Cuff Size: Standard Weight 253 lb Height 66 in Body Mass Index Calculated 40.83 kg/m2 Body Surface Area Calculated 2.21 m2 :28 Pulse 64 /min Comments: Pattern: Regular Respiration Rate 18 /min Comments: Pattern: Unlabored BP Systolic 128 mm[Hg] Comments: Patient Position: Sitting; Cuff Location: Left Arm; Cuff Size: Standard BP Diastolic 80 mm[Hg] Comments: Patient Position: Sitting; Cuff Location: Left Arm; Cuff Size: Standard Weight 247.4 lb :58 Temperature 98.5 f Comments: Method: Oral Pulse 68 /min Comments: Pattern: Regular Respiration Rate 16 /min Comments: Pattern: Unlabored BP Systolic 120 mm[Hg] Comments: Patient Position: Sitting; Cuff Location: Left Arm; Cuff Size: Standard BP Diastolic 68 mm[Hg] Comments: Patient Position: Sitting; Cuff Location: Left Arm; Cuff Size: Standard Weight 240.375 lb :36 Pulse 76 /min Comments: Pattern: Regular Respiration Rate 20 /min Comments: Pattern: Unlabored BP Systolic 120 mm[Hg] Comments: Patient Position: Sitting; Cuff Location: Left Arm; Cuff Size: Standard BP Diastolic 72 mm[Hg] Comments: Patient Position: Sitting; Cuff Location: Left Arm; Cuff Size: Standard :30 Pulse 84 /min Comments: Pattern: Regular Respiration Rate 20 /min Comments: Pattern: Unlabored BP Systolic 126 mm[Hg] Comments: Patient Position: Sitting; Cuff Location: Left Arm; Cuff Size: Large BP Diastolic 80 mm[Hg] Comments: Patient Position: Sitting; Cuff Location: Left Arm; Cuff Size: Large Weight 240 lb :01 Pulse 72 /min Comments: Pattern: Regular Respiration Rate 20 /min Comments: Pattern: Unlabored BP Systolic 132 mm[Hg] Comments: Patient Position: Sitting; Cuff Location: Left Arm; Cuff Size: Large BP Diastolic 76 mm[Hg] Comments: Patient Position: Sitting; Cuff Location: Left Arm; Cuff Size: Large Weight 240 lb Results Date Description Value Details [id number] CBC W/Diff, Automated Comments: WANTS [facility] CBCDDR.DERRICK WANTS THE A1C [facility] [id number] [place], [place], [id number] Absolute Lymph 0.82 {X10_3/ul} (Abnormal) Range: 0.83-4.51 Absolute Neut 5.3 {X10_3/uL} (Normal) Range: 2.0-7.7 IM GRAN % 0.200 % (Normal) Range: 0.0-0.9 Comments: IG% - Immature Granulocytes (promyelocytes, myelocytes andmetamyelocytes) > 1% indicates that a LEFT SHIFT is Present. BASO% 0.5 % (Normal) Range: 0-1 EO% 0.2 % (Normal) Range: 0-5 MONO% 6.2 % (Normal) Range: 0-10 LY% 12.4 % (Abnormal) Range: 19-41 NEUT% 80.5 % (Abnormal) Range: 47-70 MPV 10.5 fL (Normal) Range: 6.2-12.0 PLT 186 K/mm3 (Normal) Range: 150-450 RDW SD 47.1 fL (Abnormal) Range: 35.1-43.9 RDW CV 15.2 % (Abnormal) Range: 11.6-14.6 MCHC 31.1 {g/gl} (Abnormal) Range: 32-36 MCH 26.5 pg (Abnormal) Range: 27.0-32.0 MCV 85.2 fL (Normal) Range: 81-99 HCT 40.9 % (Normal) Range: 37-47 HGB 12.7 g/dL (Normal) Range: 12.0-15.0 RBC 4.80 {M/mm3} (Normal) Range: 4.2-5.4 WBC 6.6 K/mm3 (Normal) Range: 4.4-11.0 [id number] Comprehensive Metabolic Profil Comments: WANTS [facility] CBCDDR.DERRICK WANTS THE A1C [facility] [id number] [place], [address] GAP 11 (Normal) Range: 5-15 CO2 22.0 mmol/L (Normal) Range: 21.0-32.0 CL 107 mmol/L (Normal) Range: 98-107 K 4.8 mmol/L (Normal) Range: 3.5-5.1 NA 140 mmol/L (Normal) Range: 136-145 T BILI 0.40 mg/dL (Normal) Range: 0.20-1.00 ALT 15 U/L (Normal) Range: 13-56 ALK P 53 U/L (Normal) Range: 45-117 AST 11 U/L (Abnormal) Range: 15-37 CA 8.9 mg/dL (Normal) Range: 8.5-10.1 A/G 0.8 {RATIO} (Abnormal) Range: 0.9-2.4 GLOB 3.8 g/dL (Normal) Range: 2.2-4.2 ALB 2.9 g/dL (Abnormal) Range: 3.2-5.0 T PROT 6.7 g/dL (Normal) Range: 6.4-8.2 BUN/CRE 22.5 {RATIO} (Abnormal) Range: 10-20 EST GFR - AA 72 mL/min (Normal) Comments: GFR Calc EST GFR 59 mL/min (Abnormal) Comments: Non- GFR Calc CREAT,SERUM 0.98 mg/dL (Normal) Range: 0.55-1.02 Comments: The validity of the calculated GFR AND GFRAA in patients over70 years has not been determined. Clinical correlation isessential. BUN 22 mg/dL (Abnormal) Range: 7-18 GLU 169 mg/dL (Abnormal) Range: 74-106 Comments: Fasting Glucose result greater than or equal to 126 mg/dLsuggests DIABETES MELLITUS per A.D.A. criteria.Please note revised GLUCOSE reference range [id number]/02/2018. [id number] Hemoglobin A1c Comments: WANTS [facility] CBCDDR.DERRICK WANTS THE A1C [facility] [id number] [place], [place], [id number] HGB A1C 5.9 % (Normal) Range: 4.2-6.3 [id number] Microalb:Creat Ratio,Random UR Comments: WANTS [facility] CBCDDR.DERRICK WANTS THE A1C [facility] [id number] [place], [place], [id number] MALB:CREAT 14.7 {mg/g_CRE} (Normal) MICROALBUMIN,UR 26.9 mg/L (Normal) UR CREAT 183.00 mg/dL (Normal) [id number] Thyroid Stim Hormone (TSH) Comments: WANTS [facility] CBCDDR.DERRICK WANTS THE A1C [facility] [id number] [place], [place], [address] TSH 0.78 {uIU/mL} (Normal) Range: 0.358-3.74 [id number] CBC W/Diff, Automated Comments: [facility] [id number] [facility] [address] [place], [place], [id number] Absolute Lymph 1.06 {X10_3/ul} (Normal) Range: 0.83-4.51 Absolute Neut 4.6 {X10_3/uL} (Normal) Range: 2.0-7.7 IM GRAN % 0.300 % (Normal) Range: 0.0-0.9 Comments: IG% - Immature Granulocytes (promyelocytes, myelocytes andmetamyelocytes) > 1% indicates that a LEFT SHIFT is Present. BASO% 0.5 % (Normal) Range: 0-1 EO% 3.7 % (Normal) Range: 0-5 MONO% 8.2 % (Normal) Range: 0-10 LY% 16.5 % (Abnormal) Range: 19-41 NEUT% 70.8 % (Abnormal) Range: 47-70 MPV 9.9 fL (Normal) Range: 6.2-12.0 PLT 200 K/mm3 (Normal) Range: 150-450 RDW SD 45.0 fL (Abnormal) Range: 35.1-43.9 RDW CV 14.8 % (Abnormal) Range: 11.6-14.6 MCHC 31.1 {g/gl} (Abnormal) Range: 32-36 MCH 26.4 pg (Abnormal) Range: 27.0-32.0 MCV 84.9 fL (Normal) Range: 81-99 HCT 42.8 % (Normal) Range: 37-47 HGB 13.3 g/dL (Normal) Range: 12.0-15.0 RBC 5.04 {M/mm3} (Normal) Range: 4.2-5.4 WBC 6.4 K/mm3 (Normal) Range: 4.4-11.0 [id number] Comprehensive Metabolic Profil Comments: [facility] [id number] [place], [place], [id number] GAP 14 (Normal) Range: 5-15 CO2 24.0 mmol/L (Normal) Range: 21.0-32.0 CL 102 mmol/L (Normal) Range: 98-107 K 4.6 mmol/L (Normal) Range: 3.5-5.1 NA 140 mmol/L (Normal) Range: 136-145 T BILI 0.40 mg/dL (Normal) Range: 0.20-1.00 ALT 19 U/L (Normal) Range: 13-56 ALK P 58 U/L (Normal) Range: 45-117 AST 14 U/L (Abnormal) Range: 15-37 CA 9.1 mg/dL (Normal) Range: 8.5-10.1 A/G 0.8 {RATIO} (Abnormal) Range: 0.9-2.4 GLOB 3.8 g/dL (Normal) Range: 2.2-4.2 ALB 3.1 g/dL (Abnormal) Range: 3.2-5.0 T PROT 6.9 g/dL (Normal) Range: 6.4-8.2 BUN/CRE 16.8 {RATIO} (Normal) Range: 10-20 EST GFR - AA 64 mL/min (Normal) Comments: GFR Calc EST GFR 53 mL/min (Abnormal) Comments: Non- GFR Calc CREAT,SERUM 1.07 mg/dL (Abnormal) Range: 0.55-1.02 Comments: The validity of the calculated GFR AND GFRAA in patients over70 years has not been determined. Clinical correlation isessential. BUN 18 mg/dL (Normal) Range: 7-18 GLU 138 mg/dL (Abnormal) Range: 74-106 Comments: Fasting Glucose result greater than or equal to 126 mg/dLsuggests DIABETES MELLITUS per A.D.A. criteria.Please note revised GLUCOSE reference range ayvitarlm70/02/2018. [id number] HgA1C , Office ([id number]) Comments: 5.8 HgA1C , Office 5.8 % (Normal) Range: 4.6 - 7.1 [id number] Blood Glucose , Office ([id number]) Comments: 99 Blood Glucose , Office 99 (Normal) :19 Comprehensive Metabolic Profil Comments: [facility] [address] [place], [address] GAP 11 (Normal) Range: 5-15 CO2 26.0 mmol/L (Normal) Range: 21.0-32.0 CL 104 mmol/L (Normal) Range: 98-107 K 4.5 mmol/L (Normal) Range: 3.5-5.1 NA 141 mmol/L (Normal) Range: 136-145 T BILI 0.40 mg/dL (Normal) Range: 0.20-1.00 ALT 19 U/L (Normal) Range: 13-56 ALK P 53 U/L (Normal) Range: 45-117 AST 18 U/L (Normal) Range: 15-37 CA 8.7 mg/dL (Normal) Range: 8.5-10.1 A/G 0.8 {RATIO} (Abnormal) Range: 0.9-2.4 GLOB 3.6 g/dL (Normal) Range: 2.2-4.2 ALB 2.9 g/dL (Abnormal) Range: 3.2-5.0 T PROT 6.5 g/dL (Normal) Range: 6.4-8.2 BUN/CRE 19.7 {RATIO} (Normal) Range: 10-20 EST GFR - AA 73 mL/min (Normal) Comments: GFR Calc EST GFR 60 mL/min (Normal) Comments: Non- GFR Calc CREAT,SERUM 0.96 mg/dL (Normal) Range: 0.55-1.02 Comments: The validity of the calculated GFR AND GFRAA in patients over70 years has not been determined. Clinical correlation isessential. BUN 19 mg/dL (Abnormal) Range: 7-18 GLU 117 mg/dL (Abnormal) Range: 74-106 Comments: Fasting Glucose result from 100 to 125 mg/dLsuggests IMPAIRED HOMEOSTASIS per A.D.A. criteria.Please note revised GLUCOSE reference range ybdudqpsi21/02/2018. :19 Hemoglobin A1c Comments: [facility] [address] [place], [id number] HGB A1C 5.6 % (Normal) Range: 4.2-6.3 :19 Thyroid Stim Hormone (TSH) Comments: [facility] [address] [place], [address] TSH 2.33 {uIU/mL} (Normal) Range: 0.358-3.74 :19 Vitamin D,25 Hydroxy Comments: [facility] [address] [place], [address] Vitamin D 25-OH 37.3 ng/mL (Normal) Range: 29.95-100.01 Comments: Vitamin D 25(OH) Status Range Deficiency <20 ng/mL (50nmol/L) Insuffciency 20 - 30 ng/mL (50 - 75 nmol/L) Sufficiency 30 - 100 ng/mL (75 - 250 nmol/L) Toxicity >100 ng/mL (>250 nmol/L) [id number]-Xrz-[id number]:01 CBC W/Diff, Automated Comments: [facility] [address] [place], [id number] Absolute Lymph 1.26 {X10_3/ul} (Normal) Range: 0.83-4.51 Absolute Neut 5.0 {X10_3/uL} (Normal) Range: 2.0-7.7 IM GRAN % 0.300 % (Normal) Range: 0.0-0.9 Comments: IG% - Immature Granulocytes (promyelocytes, myelocytes andmetamyelocytes) > 1% indicates that a LEFT SHIFT is Present. BASO% 0.4 % (Normal) Range: 0-1 EO% 6.8 % (Abnormal) Range: 0-5 MONO% 7.5 % (Normal) Range: 0-10 LY% 17.1 % (Abnormal) Range: 19-41 NEUT% 67.9 % (Normal) Range: 47-70 MPV 9.1 fL (Normal) Range: 6.2-12.0 PLT 181 K/mm3 (Normal) Range: 150-450 RDW SD 46.5 fL (Abnormal) Range: 35.1-43.9 RDW CV 14.9 % (Abnormal) Range: 11.6-14.6 MCHC 30.4 {g/gl} (Abnormal) Range: 32-36 MCH 26.3 pg (Abnormal) Range: 27.0-32.0 MCV 86.5 fL (Normal) Range: 81-99 HCT 43.1 % (Normal) Range: 37-47 HGB 13.1 g/dL (Normal) Range: 12.0-15.0 RBC 4.98 {M/mm3} (Normal) Range: 4.2-5.4 WBC 7.4 K/mm3 (Normal) Range: 4.4-11.0 41-Sns-417860:01 Comprehensive Metabolic Profil Comments: [facility] [address] [place], [address] GAP 10 (Normal) Range: 5-15 CO2 25.0 mmol/L (Normal) Range: 21.0-32.0 CL 104 mmol/L (Normal) Range: 98-107 K 5.0 mmol/L (Normal) Range: 3.5-5.1 NA 139 mmol/L (Normal) Range: 136-145 T BILI 0.30 mg/dL (Normal) Range: 0.20-1.00 ALT 18 U/L (Normal) Range: 13-56 ALK P 63 U/L (Normal) Range: 45-117 AST 14 U/L (Abnormal) Range: 15-37 CA 8.7 mg/dL (Normal) Range: 8.5-10.1 A/G 0.7 {RATIO} (Abnormal) Range: 0.9-2.4 GLOB 3.8 g/dL (Normal) Range: 2.2-4.2 ALB 2.8 g/dL (Abnormal) Range: 3.2-5.0 T PROT 6.6 g/dL (Normal) Range: 6.4-8.2 BUN/CRE 18.9 {RATIO} (Normal) Range: 10-20 EST GFR - AA 62 mL/min (Normal) Comments: GFR Calc EST GFR 51 mL/min (Abnormal) Comments: Non- GFR Calc CREAT,SERUM 1.11 mg/dL (Abnormal) Range: 0.55-1.02 Comments: The validity of the calculated GFR AND GFRAA in patients over70 years has not been determined. Clinical correlation isessential. BUN 21 mg/dL (Abnormal) Range: 7-18 GLU 193 mg/dL (Abnormal) Range: 74-106 Comments: Fasting Glucose result greater than or equal to 126 mg/dLsuggests DIABETES MELLITUS per A.D.A. criteria.Please note revised GLUCOSE reference range mrwmqxnuy31/02/2018. [id number]-Tmf-[id number]:34 CALCIFEDIOL (90878) Comments: PATIENT NOT FASTINGPERFORMED BY: [facility]80 [facility] [id number] Vitamin D, 25-Hydroxy 30.2 ng/mL (Normal) Range: 30.0-100.0 Comments: Vitamin D deficiency has been defined by the [employer]ford ofMedicine and an Endocrine Society practice guideline as alevel of serum 25-OH vitamin D less than 20 ng/mL (1,2).The Endocrine Society went on to further define vitamin Dinsufficiency as a level between 21 and 29 ng/mL (2).1. IOM ([employer] of Medicine). 2010. Dietary reference intakes for calcium and D. [place]: The National Academies Press.2. Brandon MF, Bakari NC, Vicente IZAGUIRRE, et al. Evaluation, treatment, and prevention of vitamin D deficiency: an Endocrine Society clinical practice guideline. JCEM. 2010; 96(7):1911-30. 25-Jul-20179:41 Comprehensive Metabolic Profil Comments: [facility] [address] [place], [place], [address] GAP 10 (Normal) Range: 5-15 CO2 24.0 mmol/L (Normal) Range: 21.0-32.0 CL 105 mmol/L (Normal) Range: 98-107 K 5.0 mmol/L (Normal) Range: 3.5-5.1 NA 139 mmol/L (Normal) Range: 136-145 T BILI 0.30 mg/dL (Normal) Range: 0.20-1.00 ALT 20 U/L (Normal) Range: 13-56 ALK P 63 U/L (Normal) Range: 45-117 AST 17 U/L (Normal) Range: 15-37 CA 8.6 mg/dL (Normal) Range: 8.5-10.1 A/G 0.8 {RATIO} (Abnormal) Range: 0.9-2.4 GLOB 3.6 g/dL (Normal) Range: 2.2-4.2 ALB 2.9 g/dL (Abnormal) Range: 3.2-5.0 T PROT 6.5 g/dL (Normal) Range: 6.4-8.2 BUN/CRE 20.7 {RATIO} (Abnormal) Range: 10-20 EST GFR - AA 62 mL/min (Normal) Comments: GFR Calc EST GFR 51 mL/min (Abnormal) Comments: Non- GFR Calc CREAT,SERUM 1.11 mg/dL (Abnormal) Range: 0.55-1.02 Comments: The validity of the calculated GFR AND GFRAA in patients over70 years has not been determined. Clinical correlation isessential. BUN 23 mg/dL (Abnormal) Range: 7-18 GLU 197 mg/dL (Abnormal) Range: 74-106 Comments: Fasting Glucose result greater than or equal to 126 mg/dLsuggests DIABETES MELLITUS per A.D.A. criteria.Please note revised GLUCOSE reference range cmyvwvkrd53/02/2018. :41 Hemoglobin A1c Comments: [facility] [address] [facility] [place], [place], [address] HGB A1C 5.8 % (Normal) Range: 4.2-6.3 :41 Lipid Profile Comments: [facility] [address] [place], [place], [address] VLDL 45 mg/dL (Abnormal) Range: 5-40 LDL 84 mg/dL (Normal) Range: 0-130 HDL 33 mg/dL (Abnormal) Comments: The drugs N-Acetylcysteine and Metamizole may falselydepress this assay. Reference Range HDL <40 mg/dL Low HDL Cholesterol HDL >or= 60 mg/dL High HDL Cholesterol TRIG 227 mg/dL (Abnormal) Comments: The drugs N-Acetylcysteine and Metamizole may falselydepress this assay.Serum Triglycerides Reference Interval Normal <150 mg/dL Borderline high 150 - 199 mg/dL High 200 - 499 mg/dL Very High > or = 500 mg/dL CHOL 162 mg/dL (Normal) Comments: <200 mg/dL Desirable 200-240 mg/dL Borderline >240 mg/dL High Risk :41 Microalb:Creat Ratio,Random UR Comments: [facility] [address] [place], [place], [address] MALB:CREAT 14.8 {mg/g_CRE} (Normal) MICROALBUMIN,UR 46.0 mg/L (Normal) UR CREAT 310.00 mg/dL (Normal) :41 Thyroid Stim Hormone (TSH) Comments: [facility] [address] [place], [place], [address] TSH 1.96 {uIU/mL} (Normal) Range: 0.358-3.74 88-Gvu-311705:18 CBC W/Diff, Automated Comments: [facility] [address] [place], [place], [id number] Absolute Lymph 1.08 {X10_3/ul} (Normal) Range: 0.83-4.51 Absolute Neut 2.8 {X10_3/uL} (Normal) Range: 2.0-7.7 IM GRAN % 0.200 % (Normal) Range: 0.0-0.9 Comments: IG% - Immature Granulocytes (promyelocytes, myelocytes andmetamyelocytes) > 1% indicates that a LEFT SHIFT is Present. BASO% 0.4 % (Normal) Range: 0-1 EO% 3.9 % (Normal) Range: 0-5 MONO% 12.0 % (Abnormal) Range: 0-10 LY% 23.2 % (Normal) Range: 19-41 NEUT% 60.3 % (Normal) Range: 47-70 MPV 9.4 fL (Normal) Range: 6.2-12.0 PLT 126 K/mm3 (Abnormal) Range: 150-450 RDW SD 59.4 fL (Abnormal) Range: 35.1-43.9 RDW CV 19.9 % (Abnormal) Range: 11.6-14.6 MCHC 30.3 {g/gl} (Abnormal) Range: 32-36 MCH 25.1 pg (Abnormal) Range: 27.0-32.0 MCV 82.9 fL (Normal) Range: 81-99 HCT 41.6 % (Normal) Range: 37-47 HGB 12.6 g/dL (Normal) Range: 12.0-15.0 RBC 5.02 {M/mm3} (Normal) Range: 4.2-5.4 WBC 4.7 K/mm3 (Normal) Range: 4.4-11.0 56-Pds-638263:18 Comprehensive Metabolic Profil Comments: [facility] [address] [place], [address] GAP 7 (Normal) Range: 5-15 CO2 26.0 mmol/L (Normal) Range: 21.0-32.0 CL 107 mmol/L (Normal) Range: 98-107 K 4.8 mmol/L (Normal) Range: 3.5-5.1 NA 140 mmol/L (Normal) Range: 136-145 T BILI 0.60 mg/dL (Normal) Range: 0.20-1.00 ALT 16 U/L (Normal) Range: 13-56 Comments: Please note revised ALT reference range fxygiktjx72/28/2018. ALK P 63 U/L (Normal) Range: 45-117 AST 11 U/L (Abnormal) Range: 15-37 CA 8.3 mg/dL (Abnormal) Range: 8.5-10.1 A/G 0.9 {RATIO} (Normal) Range: 0.9-2.4 GLOB 3.5 g/dL (Normal) Range: 2.2-4.2 ALB 3.0 g/dL (Abnormal) Range: 3.2-5.0 T PROT 6.5 g/dL (Normal) Range: 6.4-8.2 BUN/CRE 22.1 {RATIO} (Abnormal) Range: 10-20 EST GFR - AA 74 mL/min (Normal) Comments: GFR Calc EST GFR 61 mL/min (Normal) Comments: Non- GFR Calc CREAT,SERUM 0.95 mg/dL (Normal) Range: 0.55-1.02 Comments: The validity of the calculated GFR AND GFRAA in patients over70 years has not been determined. Clinical correlation isessential. BUN 21 mg/dL (Abnormal) Range: 7-18 GLU 121 mg/dL (Abnormal) Range: 74-106 Comments: Fasting Glucose result from 100 to 125 mg/dLsuggests IMPAIRED HOMEOSTASIS per A.D.A. criteria.Please note revised GLUCOSE reference range /02/2018. [id number]-[id number]:40 CALCIFEDIOL (73666) Comments: PATIENT NOT FASTINGPERFORMED BY: [facility]Cssmky6788 [facility] [id number] Vitamin D, 25-Hydroxy 31.0 ng/mL (Normal) Range: 30.0-100.0 Comments: Vitamin D deficiency has been defined by the Sanford ofMedicine and an Endocrine Society practice guideline as alevel of serum 25-OH vitamin D less than 20 ng/mL (1,2).The Endocrine Society went on to further define vitamin Dinsufficiency as a level between 21 and 29 ng/mL (2).1. IOM ([employer]ford of Medicine). 2010. Dietary reference intakes for calcium and D. [place]: The National Academies Press.2. Brandon MF, Bakari NC, Vicente IZAGUIRRE, et al. Evaluation, treatment, and prevention of vitamin D deficiency: an Endocrine Society clinical practice guideline. JCEM. 2010; 96(7):1911-30. 3-Avo-847113:20 Crystals, Body Fluid Comments: [facility] [address] [place], [place], [id number] PATH REV Reviewed (Normal) Comments: Negative for malignant cells and crystals.Acute inflammation.Clinical correlation necessary.Jacinto Herrera M.D. 03/28/17 AMENDED REPORT 03/28/17 1357 PATH REV previously reported as: Will follow SOURCE/BF SYNOVIAL (Normal) CRYSTALS/BF SEE PATH REV (Normal) 5-Laq-[id number]:20 Culture, Body Fluid Comments: [facility] [address]. [place], [place], [address] ; dr redd ZAPATA See Note (Normal) Comments: List Antibiotics Last 48 Hours? .List Antibiotics to be Started? .Comments: SYNOVIAL FLUID RIGHT KNEE/ CALL RESULTS OF GRAM STAIN PER DR LALI Goodenam StainCentrifuged Specimen? Unable to centrifu ge specimen due to insufficient volume. Gram Stain 3+ White Blood Cells No organisms seen Body Fluid CultNO GROWTH IN 14 DAYS Cult, AnaerobicNo growth in 5 days. 2-Esj-065602:20 Synovial Fluid RBC, WBC AND Comments: [facility] [address]. [place], [place], [id number] ; dr rainey Diff PATH COM/SYFL May follow (Normal) OTHER CELL /SYN 6 % (Normal) Comments: SYNOVIAL LINING CELLS LYMPH 19 % (Normal) NEUTROPHIL 75 % (Abnormal) Range: 0-25 SYBF MN WBC# 3.008 {10_3/ul} (Normal) SYBF MN WBC% 13.4 % (Normal) SYBF PMN WBC# 19.429 {10_3/ul} (Normal) SYBF PMN WBC% 86.6 % (Normal) SYNOVIAL WBC 24.0090 {10_3uL} (Abnormal) Range: 0.000-0.002 SYNOVIAL RBC 0.030 {10_6/uL} (Abnormal) Comments: ADDENDA: Dr. Redd BAHENA Tot Cell Ct 24.0840 {10_3_uL} (Abnormal) Range: 0.000-0.000 Comments: This is the Total Number of Nucleated Cell Types in the BodyFluid. SYNOVIAL KEVON. Cloudy (Normal) SYNOVIAL COLOR RED (Normal) Comments: YELLOW/RED SYNOVIAL SOURCE RIGHT KNEE (Normal) 73-Cne-58860:53 CBC W/Diff, Comments: PLEASE FAX RESULTS TO [id number] PT REQUEST.[facility] [address] [place], [place], [phone] ; dr barba Automated Absolute Lymph 0.89 {X10_3/ul} (Normal) Range: 0.83-4.51 Absolute Neut 4.5 {X10_3/uL} (Normal) Range: 2.0-7.7 IM GRAN % 0.200 % (Normal) Range: 0.0-0.9 Comments: IG% - Immature Granulocytes (promyelocytes, myelocytes andmetamyelocytes) > 1% indicates that a LEFT SHIFT is Present. BASO% 0.5 % (Normal) Range: 0-1 EO% 6.2 % (Abnormal) Range: 0-5 MONO% 6.7 % (Normal) Range: 0-10 LY% 14.2 % (Abnormal) Range: 19-41 NEUT% 72.2 % (Abnormal) Range: 47-70 MPV 9.2 fL (Normal) Range: 6.2-12.0 PLT 184 K/mm3 (Normal) Range: 150-450 RDW SD 48.3 fL (Abnormal) Range: 35.1-43.9 RDW CV 16.1 % (Abnormal) Range: 11.6-14.6 MCHC 29.9 {g/gl} (Abnormal) Range: 32-36 MCH 24.3 pg (Abnormal) Range: 27.0-32.0 MCV 81.1 fL (Normal) Range: 81-99 HCT 36.1 % (Abnormal) Range: 37-47 HGB 10.8 g/dL (Abnormal) Range: 12.0-15.0 RBC 4.45 {M/mm3} (Normal) Range: 4.2-5.4 WBC 6.3 K/mm3 (Normal) Range: 4.4-11.0 13-Naa-96308:53 Comprehensive Comments: PLEASE FAX RESULTS TO [id number] PT REQUEST.[facility] [address] [place], [place], [id number] Metabolic Profil GAP 10 (Normal) Range: 5-15 CO2 24.0 mmol/L (Normal) Range: 21.0-32.0 CL 106 mmol/L (Normal) Range: 98-107 K 4.8 mmol/L (Normal) Range: 3.5-5.1 NA 140 mmol/L (Normal) Range: 136-145 T BILI 0.70 mg/dL (Normal) Range: 0.20-1.00 ALT 15 U/L (Normal) Range: 12-78 ALK P 58 U/L (Normal) Range: 45-117 AST 13 U/L (Abnormal) Range: 15-37 CA 8.6 mg/dL (Normal) Range: 8.5-10.1 A/G 0.7 {RATIO} (Abnormal) Range: 0.9-2.4 GLOB 3.9 g/dL (Normal) Range: 2.2-4.2 ALB 2.6 g/dL (Abnormal) Range: 3.4-5.0 Comments: Please note revised Albumin AND Globulin reference rangeeffective 2017. T PROT 6.5 g/dL (Normal) Range: 6.4-8.2 BUN/CRE 22.9 {RATIO} (Abnormal) Range: 10-20 EST GFR - AA 66 mL/min (Normal) Comments: GFR Calc EST GFR 55 mL/min (Abnormal) Comments: Non- GFR Calc CREAT,SERUM 1.05 mg/dL (Abnormal) Range: 0.55-1.02 Comments: The validity of the calculated GFR AND GFRAA in patients over70 years has not been determined. Clinical correlation isessential. BUN 24 mg/dL (Abnormal) Range: 7-18 GLU 120 mg/dL (Abnormal) Range: 70-110 Comments: Fasting Glucose result from 110 to <126 mg/dLsuggests IMPAIRED HOMEOSTASIS per A.D.A. criteria. :53 Hemoglobin A1c Comments: PLEASE FAX RESULTS TO [id number] PT REQUEST.[facility] [address] [place], [place], [address] HGB A1C 6.9 % (Abnormal) Range: 4.2-6.3 :53 Lipid Profile Comments: PLEASE FAX RESULTS TO [id number] PT REQUEST.[facility] [address] [place], [place], [id number] VLDL 29 mg/dL (Normal) Range: 5-40 LDL 69 mg/dL (Normal) Range: 0-130 HDL 33 mg/dL (Abnormal) Comments: The drugs N-Acetylcysteine and Metamizole may falselydepress this assay. Reference Range HDL <40 mg/dL Low HDL Cholesterol HDL >or= 60 mg/dL High HDL Cholesterol TRIG 145 mg/dL (Normal) Comments: The drugs N-Acetylcysteine and Metamizole may falselydepress this assay.Serum Triglycerides Reference Interval Normal <150 mg/dL Borderline high 150 - 199 mg/dL High 200 - 499 mg/dL Very High > or = 500 mg/dL CHOL 131 mg/dL (Normal) Comments: <200 mg/dL Desirable 200-240 mg/dL Borderline >240 mg/dL High Risk :53 Thyroid Stim Comments: PLEASE FAX RESULTS TO [id number] PT REQUEST.[facility] [address] [place], [address] Hormone (TSH) TSH 1.69 {uIU/mL} (Normal) Range: 0.358-3.74 :59 HgA1C , Office (48137) HgA1C , Office 6.4 % (Normal) Range: 4.6 - 7.1 :59 Blood Glucose , Office (22564) Blood Glucose , Office 213 (Normal) 74-Tbe-897847:27 CBC W/Diff, Automated Comments: SHARE RESULTS WITH DERRICK FOR [facility] [address] [place], [address] Absolute Lymph 1.20 {X10_3/ul} (Normal) Range: 0.83-4.51 Absolute Neut 4.1 {X10_3/uL} (Normal) Range: 2.0-7.7 IM GRAN % 0.200 % (Normal) Range: 0.0-0.9 Comments: IG% - Immature Granulocytes (promyelocytes, myelocytes andmetamyelocytes) > 1% indicates that a LEFT SHIFT is Present. BASO% 0.3 % (Normal) Range: 0-1 EO% 6.3 % (Abnormal) Range: 0-5 MONO% 5.8 % (Normal) Range: 0-10 LY% 19.8 % (Normal) Range: 19-41 NEUT% 67.6 % (Normal) Range: 47-70 MPV 9.6 fL (Normal) Range: 6.2-12.0 PLT 154 K/mm3 (Normal) Range: 150-450 RDW SD 50.0 fL (Abnormal) Range: 35.1-43.9 RDW CV 16.1 % (Abnormal) Range: 11.6-14.6 MCHC 30.6 {g/gl} (Abnormal) Range: 32-36 MCH 26.0 pg (Abnormal) Range: 27.0-32.0 MCV 85.0 fL (Normal) Range: 81-99 HCT 39.6 % (Normal) Range: 37-47 HGB 12.1 g/dL (Normal) Range: 12.0-15.0 RBC 4.66 {M/mm3} (Normal) Range: 4.2-5.4 WBC 6.1 K/mm3 (Normal) Range: 4.4-11.0 46-Lel-667161:27 Comprehensive Metabolic Profil Comments: SHARE RESULTS WITH DERRICK FOR [facility] [address] [place], [place], [id number] GAP 11 (Normal) Range: 5-15 CO2 23.0 mmol/L (Normal) Range: 21.0-32.0 CL 105 mmol/L (Normal) Range: 98-107 K 4.8 mmol/L (Normal) Range: 3.5-5.1 NA 139 mmol/L (Normal) Range: 136-145 T BILI 0.50 mg/dL (Normal) Range: 0.20-1.00 ALT 16 U/L (Normal) Range: 12-78 ALK P 51 U/L (Normal) Range: 45-117 AST 15 U/L (Normal) Range: 15-37 CA 9.1 mg/dL (Normal) Range: 8.5-10.1 A/G 0.9 {RATIO} (Normal) Range: 0.9-2.4 GLOB 3.4 g/dL (Normal) Range: 2.3-3.5 ALB 2.9 g/dL (Abnormal) Range: 3.4-5.0 T PROT 6.3 g/dL (Abnormal) Range: 6.4-8.2 BUN/CRE 20.4 {RATIO} (Abnormal) Range: 10-20 EST GFR - AA 81 mL/min (Normal) Comments: GFR Calc EST GFR 67 mL/min (Normal) Comments: Non- GFR Calc CREAT,SERUM 0.88 mg/dL (Normal) Range: 0.55-1.02 Comments: The validity of the calculated GFR AND GFRAA in patients over70 years has not been determined. Clinical correlation isessential. BUN 18 mg/dL (Normal) Range: 7-18 GLU 219 mg/dL (Abnormal) Range: 70-110 Comments: Glucose result greater than or equal to 200 mg/dLsuggests DIABETES MELLITUS per A.D.A. criteria. 69-Rko-162312:05 Comprehensive Metabolic Profil Comments: [facility] [address] [place], [address] GAP 9 (Normal) Range: 5-15 CO2 24.0 mmol/L (Normal) Range: 21.0-32.0 CL 106 mmol/L (Normal) Range: 98-107 K 4.5 mmol/L (Normal) Range: 3.5-5.1 NA 139 mmol/L (Normal) Range: 136-145 T BILI 0.50 mg/dL (Normal) Range: 0.20-1.00 ALT 15 U/L (Normal) Range: 12-78 ALK P 54 U/L (Normal) Range: 45-117 AST 16 U/L (Normal) Range: 15-37 CA 8.7 mg/dL (Normal) Range: 8.5-10.1 A/G 0.8 {RATIO} (Abnormal) Range: 0.9-2.4 GLOB 3.7 g/dL (Abnormal) Range: 2.3-3.5 ALB 2.9 g/dL (Abnormal) Range: 3.4-5.0 T PROT 6.6 g/dL (Normal) Range: 6.4-8.2 BUN/CRE 16.7 {RATIO} (Normal) Range: 10-20 EST GFR - AA 73 mL/min (Normal) Comments: GFR Calc EST GFR 61 mL/min (Normal) Comments: Non- GFR Calc CREAT,SERUM 0.96 mg/dL (Normal) Range: 0.55-1.02 Comments: The validity of the calculated GFR AND GFRAA in patients over70 years has not been determined. Clinical correlation isessential. BUN 16 mg/dL (Normal) Range: 7-18 GLU 170 mg/dL (Abnormal) Range: 70-110 Comments: Fasting Glucose result greater than or equal to 126 mg/dLsuggests DIABETES MELLITUS per A.D.A. criteria. 63-Zuq-978067:05 Hemoglobin A1c Comments: [facility] [address] [place], [id number] HGB A1C 6.7 % (Abnormal) Range: 4.2-6.3 10-Afx-556093:05 Thyroid Stim Hormone (TSH) Comments: [facility] [address] [place], [id number] TSH 3.02 {uIU/mL} (Normal) Range: 0.358-3.74 17-Kgo-329031:05 Vitamin D,25 Hydroxy Comments: [facility] [address]pf[address] [place], [id number] Vitamin D 25-OH 23.5 ng/mL (Normal) Comments: Vitamin D 25(OH) Status Range Deficiency <20 ng/mL (50nmol/L) Insuffciency 20 - 30 ng/mL (50 - 75 nmol/L) Sufficiency 30 - 100 ng/mL (75 - 250 nmol/L) Toxicity >100 ng/mL (>250 nmol/L) 66-Mli-784355:56 HgA1C , Office (47103) HgA1C , Office 6.3 % (Normal) Range: 4.6 - 7.1 65-Iuo-674524:56 Blood Glucose , Office (15524) Blood Glucose , Office 194 (Normal) 89-Vhx-972961:37 CBC W/Diff, Automated Comments: [facility] [address] [place], [id number] ; another doc Absolute Lymph 1.29 {X10_3/ul} (Normal) Range: 0.83-4.51 Absolute Neut 5.3 {X10_3/uL} (Normal) Range: 2.0-7.7 IM GRAN % 0.400 % (Normal) Range: 0.0-0.9 Comments: IG% - Immature Granulocytes (promyelocytes, myelocytes andmetamyelocytes) > 1% indicates that a LEFT SHIFT is Present. BASO% 0.5 % (Normal) Range: 0-1 EO% 4.5 % (Normal) Range: 0-5 MONO% 7.3 % (Normal) Range: 0-10 LY% 17.0 % (Abnormal) Range: 19-41 NEUT% 70.3 % (Abnormal) Range: 47-70 MPV 9.7 fL (Normal) Range: 6.2-12.0 PLT 204 K/mm3 (Normal) Range: 150-450 RDW SD 46.3 fL (Abnormal) Range: 35.1-43.9 RDW CV 15.2 % (Abnormal) Range: 11.6-14.6 MCHC 31.9 {g/gl} (Abnormal) Range: 32-36 MCH 26.9 pg (Abnormal) Range: 27.0-32.0 MCV 84.2 fL (Normal) Range: 81-99 HCT 40.4 % (Normal) Range: 37-47 HGB 12.9 g/dL (Normal) Range: 12.0-15.0 RBC 4.80 {M/mm3} (Normal) Range: 4.2-5.4 WBC 7.6 K/mm3 (Normal) Range: 4.4-11.0 [id number] Comprehensive Metabolic Profil Comments: [facility] [id number] [place], [place], [id number] GAP 7 (Normal) Range: 5-15 CO2 29.0 mmol/L (Normal) Range: 21.0-32.0 CL 103 mmol/L (Normal) Range: 98-107 K 4.9 mmol/L (Normal) Range: 3.5-5.1 NA 139 mmol/L (Normal) Range: 136-145 T BILI 0.40 mg/dL (Normal) Range: 0.20-1.00 ALT 18 U/L (Normal) Range: 12-78 ALK P 52 U/L (Normal) Range: 45-117 AST 14 U/L (Abnormal) Range: 15-37 CA 8.5 mg/dL (Normal) Range: 8.5-10.1 A/G 0.9 {RATIO} (Normal) Range: 0.9-2.4 GLOB 3.5 g/dL (Normal) Range: 2.3-3.5 ALB 3.0 g/dL (Abnormal) Range: 3.4-5.0 T PROT 6.5 g/dL (Normal) Range: 6.4-8.2 BUN/CRE 19.1 {RATIO} (Normal) Range: 10-20 EST GFR - AA 75 mL/min (Normal) Comments: GFR Calc EST GFR 62 mL/min (Normal) Comments: Non- GFR Calc CREAT,SERUM 0.94 mg/dL (Normal) Range: 0.55-1.02 Comments: The validity of the calculated GFR AND GFRAA in patients over70 years has not been determined. Clinical correlation isessential. BUN 18 mg/dL (Normal) Range: 7-18 GLU 195 mg/dL (Abnormal) Range: 70-110 Comments: Fasting Glucose result greater than or equal to 126 mg/dLsuggests DIABETES MELLITUS per A.D.A. criteria. [id number] Basic Metabolic Profile Comments: Order Date: 12/03/15DR.VICENTE KEE LIVER,LIPIDDR.DERRICK KEE BMPInterface Comments: 12 hours fasting, may have water.Order Date: 12/03/15[facility] [id number] [place], [place], [id number] (BMP) GAP 4 (Abnormal) Range: 5-15 CO2 27.0 mmol/L (Normal) Range: 21.0-32.0 CL 107 mmol/L (Normal) Range: 98-107 K 4.8 mmol/L (Normal) Range: 3.5-5.1 NA 138 mmol/L (Normal) Range: 136-145 CA 8.4 mg/dL (Abnormal) Range: 8.5-10.1 BUN/CRE 19.0 {RATIO} (Normal) Range: 10-20 EST GFR - AA 79 mL/min (Normal) Comments: GFR Calc EST GFR 66 mL/min (Normal) Comments: Non- GFR Calc CREAT,SERUM 0.90 mg/dL (Normal) Range: 0.55-1.02 Comments: The validity of the calculated GFR AND GFRAA in patients over70 years has not been determined. Clinical correlation isessential. BUN 17 mg/dL (Normal) Range: 7-18 GLU 193 mg/dL (Abnormal) Range: 70-110 Comments: Fasting Glucose result greater than or equal to 126 mg/dLsuggests DIABETES MELLITUS per A.D.A. criteria. :37 Lipid Profile Comments: Order Date: 12/03/15.VICENTE KEE LIVER,LIPIDDR.DERRICK WANTS BMPInterface Comments: 12 hours fasting, may have water.Order Date: 12/03/15[facility] [address] [place], [place], [id number] VLDL 18 mg/dL (Normal) Range: 5-40 LDL 85 mg/dL (Normal) Range: 0-130 HDL 52 mg/dL (Normal) Comments: The drugs N-Acetylcysteine and Metamizole may falsely deressthis assay. Reference Range HDL <40 mg/dL Low HDL Cholesterol HDL >or= 60 mg/dL High HDL Cholesterol TRIG 90 mg/dL (Normal) Comments: The drugs N-Acetylcysteine and Metamizole may falsely deressthis assay.Serum Triglycerides Reference Interval Normal <150 mg/dL Borderline high 150 - 199 mg/dL High 200 - 499 mg/dL Very High > or = 500 mg/dL CHOL 155 mg/dL (Normal) Comments: <200 mg/dL Desirable 200-240 mg/dL Borderline >240 mg/dL High Risk :37 Liver Profile Comments: Order Date: 12/03/15DR.VICENTE KEE LIVER,LIPIDDR.DERRICK MONROYS BMPInterface Comments: 12 hours fasting, may have water.Order Date: 12/03/15[facility] [address] [place], [place], [address] D BILI 0.11 mg/dL (Normal) Range: 0.00-0.30 T BILI 0.40 mg/dL (Normal) Range: 0.20-1.00 ALT 14 U/L (Normal) Range: 12-78 ALK P 47 U/L (Normal) Range: 45-117 AST 12 U/L (Abnormal) Range: 15-37 GLOB 3.3 g/dL (Normal) Range: 2.3-3.5 ALB 2.8 g/dL (Abnormal) Range: 3.4-5.0 T PROT 6.1 g/dL (Abnormal) Range: 6.4-8.2 :40 HgA1C , Office (57402) HgA1C , Office 6.1 % (Normal) Range: 4.6 - 7.1 :40 Blood Glucose , Office (45728) Blood Glucose , Office 208 (Normal) :45 Culture, Body Fluid Comments: [facility] [address] [place], [place], [id number] CUBF See Note (Normal) Comments: List Antibiotics Last 48 Hours? UNKList Antibiotics to be Started? UNKComments: SYNOVIAL FLUID LEFT KNEE..Gram StainCentrifuged Specimen? Culture performed on centrifuged specimen Gram Stain 3+ Red Blood Cells 1+ White Blood Cells No organisms seen Body Fluid CultNO GROWTH IN 14 DAYS Cult, AnaerobicNo growth in 5 days. :45 Synovial Fluid RBC, WBC AND Comments: [facility] [address] [place], [address] Diff PATH COM/SYFL May follow (Normal) MONO 36 % (Normal) LYMPH 19 % (Normal) NEUTROPHIL 45 % (Abnormal) Range: 0-25 SYBF MN WBC% 55.0 % (Normal) SYBF PMN WBC# 1.430 {10_3/ul} (Normal) SYBF PMN WBC% 45.0 % (Normal) SYNOVIAL WBC 3.1750 {10_3uL} (Abnormal) Range: 0.000-0.002 SYNOVIAL RBC 0.002 {10_6/uL} (Abnormal) SYN Tot Cell Ct 3.1840 {10_3_uL} (Abnormal) Range: 0.000-0.000 Comments: This is the Total Number of Nucleated Cell Types in the BodyFluid. SYNOVIAL KEVON. Sl Cl (Normal) SYNOVIAL COLOR Yellow (Normal) SYNOVIAL SOURCE LEFT KNEE (Normal) [id number]-Gmm-[id number]:21 CBC W/Diff, Automated Comments: [facility] [address] [place], [place], [id number] Absolute Lymph 1.21 {X10_3/ul} (Normal) Range: 0.83-4.51 Absolute Neut 4.4 {X10_3/uL} (Normal) Range: 2.0-7.7 IM GRAN % 0.000 % (Normal) Range: 0.0-0.9 Comments: IG% - Immature Granulocytes (promyelocytes, myelocytes andmetamyelocytes) > 1% indicates that a LEFT SHIFT is Present. BASO% 0.5 % (Normal) Range: 0-1 EO% 5.2 % (Abnormal) Range: 0-5 MONO% 7.6 % (Normal) Range: 0-10 LY% 18.6 % (Abnormal) Range: 19-41 NEUT% 68.1 % (Normal) Range: 47-70 MPV 9.6 fL (Normal) Range: 6.2-12.0 PLT 180 K/mm3 (Normal) Range: 150-450 RDW SD 50.9 fL (Abnormal) Range: 35.1-43.9 RDW CV 16.0 % (Abnormal) Range: 11.6-14.6 MCHC 30.0 {g/gl} (Abnormal) Range: 32-36 MCH 26.0 pg (Abnormal) Range: 27.0-32.0 MCV 86.5 fL (Normal) Range: 81-99 HCT 43.0 % (Normal) Range: 37-47 HGB 12.9 g/dL (Normal) Range: 12.0-15.0 RBC 4.97 {M/mm3} (Normal) Range: 4.2-5.4 WBC 6.5 K/mm3 (Normal) Range: 4.4-11.0 08-Dim-[id number]:21 Comprehensive Metabolic Profil Comments: [facility] [address] [place], [place], [id number] GAP 8 (Normal) Range: 5-15 CO2 23.0 mmol/L (Normal) Range: 21.0-32.0 CL 109 mmol/L (Abnormal) Range: 98-107 K 5.2 mmol/L (Abnormal) Range: 3.5-5.1 NA 140 mmol/L (Normal) Range: 136-145 T BILI 0.40 mg/dL (Normal) Range: 0.20-1.00 ALT 21 U/L (Normal) Range: 12-78 ALK P 52 U/L (Normal) Range: 45-117 AST 13 U/L (Abnormal) Range: 15-37 CA 9.0 mg/dL (Normal) Range: 8.5-10.1 A/G 0.8 {RATIO} (Abnormal) Range: 0.9-2.4 GLOB 3.6 g/dL (Abnormal) Range: 2.3-3.5 ALB 3.0 g/dL (Abnormal) Range: 3.4-5.0 T PROT 6.6 g/dL (Normal) Range: 6.4-8.2 BUN/CRE 22.3 {RATIO} (Abnormal) Range: 10-20 EST GFR - AA 68 mL/min (Normal) Comments: GFR Calc EST GFR 56 mL/min (Abnormal) Comments: Non- GFR Calc CREAT,SERUM 1.03 mg/dL (Abnormal) Range: 0.55-1.02 Comments: The validity of the calculated GFR AND GFRAA in patients over70 years has not been determined. Clinical correlation isessential. BUN 23 mg/dL (Abnormal) Range: 7-18 GLU 114 mg/dL (Abnormal) Range: 70-110 Comments: Fasting Glucose result from 110 to <126 mg/dLsuggests IMPAIRED HOMEOSTASIS per A.D.A. criteria. [id number]-[id number]:31 CBC W/Diff, Automated Comments: [facility] [address] [place], [place], [id number] Absolute Lymph 1.21 {X10_3/ul} (Normal) Range: 0.83-4.51 Absolute Neut 6.1 {X10_3/uL} (Normal) Range: 2.0-7.7 IM GRAN % 0.200 % (Normal) Range: 0.0-0.9 Comments: IG% - Immature Granulocytes (promyelocytes, myelocytes andmetamyelocytes) > 1% indicates that a LEFT SHIFT is Present. BASO% 0.6 % (Normal) Range: 0-1 EO% 6.1 % (Abnormal) Range: 0-5 MONO% 7.3 % (Normal) Range: 0-10 LY% 14.3 % (Abnormal) Range: 19-41 NEUT% 71.5 % (Abnormal) Range: 47-70 MPV 9.4 fL (Normal) Range: 6.2-12.0 PLT 197 K/mm3 (Normal) Range: 150-450 RDW SD 51.3 fL (Abnormal) Range: 35.1-43.9 RDW CV 17.6 % (Abnormal) Range: 11.6-14.6 MCHC 31.7 {g/gl} (Abnormal) Range: 32-36 MCH 25.3 pg (Abnormal) Range: 27.0-32.0 MCV 79.9 fL (Abnormal) Range: 81-99 HCT 43.2 % (Normal) Range: 37-47 HGB 13.7 g/dL (Normal) Range: 12.0-15.0 RBC 5.41 {M/mm3} (Abnormal) Range: 4.2-5.4 WBC 8.5 K/mm3 (Normal) Range: 4.4-11.0 2-Epq-816577:31 Comprehensive Metabolic Profil Comments: [facility] [address] [place], [place], [id number] GAP 9 (Normal) Range: 5-15 CO2 27.0 mmol/L (Normal) Range: 21.0-32.0 CL 99 mmol/L (Normal) Range: 98-107 K 4.4 mmol/L (Normal) Range: 3.5-5.1 NA 135 mmol/L (Abnormal) Range: 136-145 T BILI 0.40 mg/dL (Normal) Range: 0.20-1.00 ALT 24 U/L (Normal) Range: 12-78 ALK P 56 U/L (Normal) Range: 45-117 AST 22 U/L (Normal) Range: 15-37 CA 9.2 mg/dL (Normal) Range: 8.5-10.1 A/G 0.8 {RATIO} (Abnormal) Range: 0.9-2.4 GLOB 3.9 g/dL (Abnormal) Range: 2.3-3.5 ALB 3.2 g/dL (Abnormal) Range: 3.4-5.0 T PROT 7.1 g/dL (Normal) Range: 6.4-8.2 BUN/CRE 15.9 {RATIO} (Normal) Range: 10-20 EST GFR - AA 81 mL/min (Normal) Comments: GFR Calc EST GFR 67 mL/min (Normal) Comments: Non- GFR Calc CREAT,SERUM 0.88 mg/dL (Normal) Range: 0.55-1.02 Comments: The validity of the calculated GFR AND GFRAA in patients over70 years has not been determined. Clinical correlation isessential. BUN 14 mg/dL (Normal) Range: 7-18 GLU 174 mg/dL (Abnormal) Range: 70-110 Comments: Fasting Glucose result greater than or equal to 126 mg/dLsuggests DIABETES MELLITUS per A.D.A. criteria. :49 Blood Glucose , Office (54021) Blood Glucose , Office 219 (Normal) :49 HgA1C , Office (23343) HgA1C , Office 7.5 % (Abnormal) Range: 4.6 - 7.1 :27 C-Peptide Comments: [facility] (refer to report for specific site)refer to report for address and phone number C PEPTIDE 82627 7.0 ng/mL (Abnormal) Range: 1.1-4.4 Comments: C-Peptide reference interval is for fasting patients.Performed at: [address] [id number] Director: Lex Lai PhD, Phone: [phone] :[phone] CBC W/Diff, Automated Comments: [facility] [address] [place], [place], [id number] ANISO 1+ (Normal) Absolute Lymph 1.45 {X10_3/ul} (Normal) Range: 0.83-4.51 Absolute Neut 5.5 {X10_3/uL} (Normal) Range: 2.0-7.7 IM GRAN % 0.200 % (Normal) Range: 0.0-0.9 Comments: IG% - Immature Granulocytes (promyelocytes, myelocytes andmetamyelocytes) > 1% indicates that a LEFT SHIFT is Present. BASO% 0.7 % (Normal) Range: 0-1 EO% 4.7 % (Normal) Range: 0-5 MONO% 9.7 % (Normal) Range: 0-10 LY% 17.6 % (Abnormal) Range: 19-41 NEUT% 67.1 % (Normal) Range: 47-70 MPV 9.6 fL (Normal) Range: 6.2-12.0 PLT 185 K/mm3 (Normal) Range: 150-450 RDW SD 66.3 fL (Abnormal) Range: 35.1-43.9 RDW CV 24.1 % (Abnormal) Range: 11.6-14.6 MCHC 30.8 {g/gl} (Abnormal) Range: 32-36 MCH 24.1 pg (Abnormal) Range: 27.0-32.0 MCV 78.1 fL (Abnormal) Range: 81-99 HCT 40.2 % (Normal) Range: 37-47 HGB 12.4 g/dL (Normal) Range: 12.0-15.0 RBC 5.15 {M/mm3} (Normal) Range: 4.2-5.4 WBC 8.3 K/mm3 (Normal) Range: 4.4-11.0 89-Ctc-202230:27 Comprehensive Metabolic Profil Comments: [facility] [address] [place], [place], [id number] GAP 9 (Normal) Range: 5-15 CO2 25.0 mmol/L (Normal) Range: 21.0-32.0 CL 106 mmol/L (Normal) Range: 98-107 K 4.7 mmol/L (Normal) Range: 3.5-5.1 NA 140 mmol/L (Normal) Range: 136-145 T BILI 0.40 mg/dL (Normal) Range: 0.20-1.00 ALT 25 U/L (Normal) Range: 12-78 ALK P 52 U/L (Normal) Range: 45-117 AST 28 U/L (Normal) Range: 15-37 CA 8.9 mg/dL (Normal) Range: 8.5-10.1 A/G 0.9 {RATIO} (Normal) Range: 0.9-2.4 GLOB 3.4 g/dL (Normal) Range: 2.3-3.5 ALB 3.1 g/dL (Abnormal) Range: 3.4-5.0 T PROT 6.5 g/dL (Normal) Range: 6.4-8.2 BUN/CRE 20.0 {RATIO} (Normal) Range: 10-20 EST GFR - AA 84 mL/min (Normal) Comments: GFR Calc EST GFR 70 mL/min (Normal) Comments: Non- GFR Calc CREAT,SERUM 0.85 mg/dL (Normal) Range: 0.55-1.02 Comments: The validity of the calculated GFR AND GFRAA in patients over70 years has not been determined. Clinical correlation isessential. BUN 17 mg/dL (Normal) Range: 7-18 GLU 197 mg/dL (Abnormal) Range: 70-110 Comments: Fasting Glucose result greater than or equal to 126 mg/dLsuggests DIABETES MELLITUS per A.D.A. criteria. :27 Hemoglobin A1c Comments: [facility] [address] [place], [address] HGB A1C 7.5 % (Abnormal) Range: 4.2-6.3 : Microalb:Creat Ratio,Random UR Comments: [facility] [address]jh[address] [facility] [place], [address] MALB:CREAT 6.7 {mg/g_CRE} (Normal) MICROALBUMIN,UR 9.6 mg/L (Normal) UR CREAT 144.00 mg/dL (Normal) :27 Miscellaneous Lab Procedure Comments: Test(s) Ordered: ISLET CELL ANTIBODY [id number] SERUM/[facility] [address]ropb[address] [facility] [place], [address] MISC Comments: TEST RESULT UNITS REFERENCE INTERVALAntipancreatic Islet Cells Negative Neg:<1:1 TEST LAB (Normal) ING PERFORMED AT [facility]. ORIGINAL REPORT ON FILE IN LAB CONTAINS ADDITIONAL TEST SITE INFORMATION. TEST :25 HAPTOGLOBIN ([id number]) Comments: PATIENT NOT FASTINGPERFORMED BY: [facility] [address] [place] [id number] Haptoglobin 259 mg/dL (Abnormal) Range: 34-200 :25 [facility] (92485) Comments: PATIENT NOT FASTINGPERFORMED BY: [employer] Zqgbig4347 [facility] [id number] Please note: SPRCS (Normal) Comments: Protein electrophoresis scan will follow via computer, mail, orcourier delivery. A/G Ratio 0.9 (Normal) Range: 0.7-1.7 Globulin, Total 3.4 g/dL (Normal) Range: 2.2-3.9 M-Anam Not Observed g/dL (Normal) Gamma Globulin 0.8 g/dL (Normal) Range: 0.4-1.8 Beta Globulin 1.2 g/dL (Normal) Range: 0.7-1.3 Xoufi-6-Qvvsghxf 1.1 g/dL (Abnormal) Range: 0.4-1.0 Bkbay-1-Libbunmc 0.3 g/dL (Normal) Range: 0.0-0.4 Albumin 3.2 g/dL (Normal) Range: 2.9-4.4 Protein, Total, Serum 6.6 g/dL (Normal) Range: 6.0-8.5 :25 [facility] (47211) Comments: PATIENT NOT FASTINGPERFORMED BY: [employer] Mbrdwp0696 [facility] [id number] Please note: SPRCS (Normal) Comments: Protein electrophoresis scan will follow via computer, mail, orcourier delivery. M-Anam, % Not Observed % (Normal) Gamma Globulin, U 10.2 % (Normal) Beta Globulin, U 22.4 % (Normal) Obrxh-8-Xmixtoqd, U 9.8 % (Normal) Pxkgh-0-Fnaraigu, U 1.8 % (Normal) Albumin, U 55.8 % (Normal) Protein,Total,Urine 42.4 mg/dL (Normal) :25 RETICULOCYTE COUNT MANUL Comments: PATIENT NOT FASTINGPERFORMED BY: [employer] Yjofsw8740 [facility] [id number] ([id number]) Reticulocyte Count 2.0 % (Normal) Range: 0.6-2.6 :25 IRON BINDING CAPACITY (TIBC) Comments: PATIENT NOT FASTINGPERFORMED BY: [facility]6370 [facility] [id number] ([id number]) Iron Saturation 4 % (Abnormal) Range: 15-55 Iron, Serum 14 ug/dL (Abnormal) Range: 27-139 UIBC 372 ug/dL (Abnormal) Range: 118-369 Iron Bind.Cap.(TIBC) 386 ug/dL (Normal) Range: 250-450 80-Mzy-380077:25 FERRITIN (15699) Comments: PATIENT NOT FASTINGPERFORMED BY: [facility]6370 [facility] [id number] Ferritin, Serum 19 ng/mL (Normal) Range: 15-150 96-Kbd-833082:25 CBC, PLATELETS & AUT DIFF Comments: PATIENT NOT FASTINGPERFORMED BY: [facility]6370 [facility] [id number] Information: [id number] ([id number]) Immature Grans (Abs) 0.0 {x10E3/uL} (Normal) Range: 0.0-0.1 Immature Granulocytes 0 % (Normal) Baso (Absolute) 0.0 {x10E3/uL} (Normal) Range: 0.0-0.2 Eos (Absolute) 0.6 {x10E3/uL} (Abnormal) Range: 0.0-0.4 Monocytes(Absolute) 0.7 {x10E3/uL} (Normal) Range: 0.1-0.9 Lymphs (Absolute) 1.7 {x10E3/uL} (Normal) Range: 0.7-3.1 Neutrophils (Absolute) 7.4 {x10E3/uL} (Abnormal) Range: 1.4-7.0 Basos 0 % (Normal) Eos 5 % (Normal) Monocytes 7 % (Normal) Lymphs 17 % (Normal) Neutrophils 71 % (Normal) Platelets 204 {x10E3/uL} (Normal) Range: 150-379 RDW 17.1 % (Abnormal) Range: 12.3-15.4 MCHC 29.7 g/dL (Abnormal) Range: 31.5-35.7 MCH 21.0 pg (Abnormal) Range: 26.6-33.0 MCV 71 fL (Abnormal) Range: 79-97 Hematocrit 33.7 % (Abnormal) Range: 34.0-46.6 Hemoglobin 10.0 g/dL (Abnormal) Range: 11.1-15.9 RBC 4.77 {x10E6/uL} (Normal) Range: 3.77-5.28 WBC 10.4 {x10E3/uL} (Normal) Range: 3.4-10.8 :32 HgA1C , Office (35216) HgA1C , Office 8.2 % (Abnormal) Range: 4.6 - 7.1 :16 CBC W/Diff, Automated Comments: DR.N THOMAS ORDERED TSH LIPID VITD CBCD B12 FOLOTES CMP MIACREDRKARLA ORDERED LIPID LIVERDR.MARYAM ORDERED CMP CBCDWAC[facility] [address]clusc[address] [place], [place], [phone] OVALOCYTE 1+ (Normal) BASO STIP RARE (Normal) HYPOCHROMASIA 1+ (Normal) POLYCHROMASIA 1+ (Normal) ANISO 1+ (Normal) Absolute Lymph 1.47 {X10_3/ul} (Normal) Range: 0.83-4.51 Absolute Neut 5.2 {X10_3/uL} (Normal) Range: 2.0-7.7 IM GRAN % 0.300 % (Normal) Range: 0.0-0.9 Comments: IG% - Immature Granulocytes (promyelocytes, myelocytes andmetamyelocytes) > 1% indicates that a LEFT SHIFT is Present. BASO% 0.7 % (Normal) Range: 0-1 EO% 4.5 % (Normal) Range: 0-5 MONO% 6.6 % (Normal) Range: 0-10 LY% 19.4 % (Normal) Range: 19-41 NEUT% 68.5 % (Normal) Range: 47-70 MPV 8.5 fL (Normal) Range: 6.2-12.0 PLT 190 K/mm3 (Normal) Range: 150-450 RDW SD 45.4 fL (Abnormal) Range: 35.1-43.9 RDW CV 17.0 % (Abnormal) Range: 11.6-14.6 MCHC 28.7 {g/gl} (Abnormal) Range: 32-36 MCH 20.9 pg (Abnormal) Range: 27.0-32.0 MCV 72.8 fL (Abnormal) Range: 81-99 HCT 32.7 % (Abnormal) Range: 37-47 HGB 9.4 g/dL (Abnormal) Range: 12.0-15.0 RBC 4.49 {M/mm3} (Normal) Range: 4.2-5.4 WBC 7.6 K/mm3 (Normal) Range: 4.4-11.0 :16 Comprehensive Metabolic Profil Comments: DR.N THOMAS ORDERED TSH LIPID VITD CBCD B12 FOLOTES CMP MIACREDR.VICENTE ORDERED LIPID LIVERDR.MARYAM ORDERED CMP CBCDIs Patient Taking Vitamins or Folic Acid Supplements? [facility] [facility] [place], [place], [id number] GAP 9 (Normal) Range: 5-15 CO2 26.0 mmol/L (Normal) Range: 21.0-32.0 CL 101 mmol/L (Normal) Range: 98-107 K 4.7 mmol/L (Normal) Range: 3.5-5.1 NA 136 mmol/L (Normal) Range: 136-145 T BILI 0.50 mg/dL (Normal) Range: 0.20-1.00 ALT 14 U/L (Normal) Range: 12-78 ALK P 42 U/L (Abnormal) Range: 50-136 AST 13 U/L (Abnormal) Range: 15-37 CA 8.5 mg/dL (Normal) Range: 8.5-10.1 A/G 0.8 {RATIO} (Abnormal) Range: 0.9-2.4 GLOB 3.6 g/dL (Abnormal) Range: 2.3-3.5 ALB 2.9 g/dL (Abnormal) Range: 3.4-5.0 T PROT 6.5 g/dL (Normal) Range: 6.4-8.2 BUN/CRE 23.9 {RATIO} (Abnormal) Range: 10-20 EST GFR - AA 81 mL/min (Normal) Comments: GFR Calc EST GFR 67 mL/min (Normal) Comments: Non- GFR Calc CREAT,SERUM 0.88 mg/dL (Normal) Range: 0.55-1.20 Comments: The validity of the calculated GFR AND GFRAA in patients over70 years has not been determined. Clinical correlation isessential. BUN 21 mg/dL (Abnormal) Range: 7-18 GLU 151 mg/dL (Abnormal) Range: 70-110 Comments: Fasting Glucose result greater than or equal to 126 mg/dLsuggests DIABETES MELLITUS per A.D.A. criteria. :16 Folates, (Folic Acid) Comments: DR.N THOMAS ORDERED TSH LIPID VITD CBCD B12 FOLOTES CMP LUCÍA ORDERED LIPID LIVERDR.MARYAM ORDERED CMP CBCDIs Patient Taking Vitamins or Folic Acid Supplements? [facility] [place], [place], [id number] FOLATES 11.20 ng/mL (Normal) Range: 3.1-17.5 :16 Lipid Profile Comments: DR.N THOMAS ORDERED TSH LIPID VITD CBCD B12 FOLOTES CMP LUCÍA ORDERED LIPID LIVERDR.MARYAM ORDERED CMP CBCDIs Patient Taking Vitamins or Folic Acid Supplements? [facility] [place], [place], [address] VLDL 32 mg/dL (Normal) Range: 5-40 LDL 87 mg/dL (Normal) Range: 0-130 HDL 39 mg/dL (Abnormal) Comments: The drugs N-Acetylcysteine and Metamizole may falsely deressthis assay. Reference Range HDL <40 mg/dL Low HDL Cholesterol HDL >or= 60 mg/dL High HDL Cholesterol TRIG 162 mg/dL (Normal) Comments: The drugs N-Acetylcysteine and Metamizole may falsely deressthis assay.Serum Triglycerides Reference Interval Normal <150 mg/dL Borderline high 150 - 199 mg/dL High 200 - 499 mg/dL Very High > or = 500 mg/dL CHOL 158 mg/dL (Normal) Comments: <200 mg/dL Desirable 200-240 mg/dL Borderline >240 mg/dL High Risk :16 Microalb:Creat Ratio,Random UR Comments: DR.N THOMAS ORDERED TSH LIPID VITD CBCD B12 FOLOTES CMP LUCÍA ORDERED LIPID LIVERDR.MARYAM ORDERED [facility] [address]rmzsp[address] [place], [place], [id number] MALB:CREAT 7.5 {mg/g_CRE} (Normal) MICROALBUMIN,UR 10.1 mg/L (Normal) UR CREAT 135.00 mg/dL (Normal) :16 Thyroid Stim Hormone (TSH) Comments: DR.N THOMAS ORDERED TSH LIPID VITD CBCD B12 FOLOTES CMP MIATIESHA ORDERED LIPID LIVERDR.MARYAM ORDERED CMP CBCDIs Patient Taking Vitamins or Folic Acid Supplements? [facility] [place] [address] [place], [place], [id number] TSH 1.90 {uIU/mL} (Normal) Range: 0.358-3.74 :16 Vitamin B12 324 pg/mL (Normal) Comments: DR.N THOMAS ORDERED TSH LIPID VITD CBCD B12 FOLOTES [facility] JVTIESHA ORDERED LIPID LIVERDR.MARYAM ORDERED [facility]Bl[facility] Gbaargwbhk[address] [facility] Hospitalariel[facility], [place], [address] Range: 211-911 :16 Vitamin D,25 Hydroxy Comments: DR.N THOMAS ORDERED TSH LIPID VITD CBCD B12 FOLOTES [facility] ORDERED LIPID LIVERDR.MARYAM ORDERED [facility] CBCDSelect [facility] [address]rqzad[address]30 [facility] [place], [phone] Vitamin D 25-OH 24.7 ng/mL (Normal) Comments: Vitamin D 25(OH) Status Range Deficiency <20 ng/mL (50nmol/L) Insuffciency 20 - 30 ng/mL (50 - 75 nmol/L) Sufficiency 30 - 100 ng/mL (75 - 250 nmol/L) Toxicity >100 ng/mL (>250 nmol/L) :25 OVA & PARASITE DIR SMEAR Comments: PATIENT NOT FASTINGPERFORMED BY: [facility] Jjnugs[address] [place] [id number] ([id number]) Result 1 NOCP (Normal) Comments: No ova, cysts, or parasites seen. Ova + Parasite Exam Final report (Normal) Comments: These results were obtained using wet preparation(s) and trichromestained smear. This test does not include testing for Cryptosporidiumparvum, Cyclospora, or Microsporidia. :25 OCCULT BLOOD FECES SCREEN Comments: PATIENT NOT FASTINGPERFORMED BY: [facility]6370 [facility] [id number] ([id number]) Occult Blood, Fecal, IA Positive (Abnormal) :25 LEUKOCYTE COUNT, FECAL (63851) Comments: PATIENT NOT FASTINGPERFORMED BY: [place] [id number] [facility] [id number] Result 1 NWBC (Normal) Comments: No white blood cells seen. White Blood Cells (WBC), Final report (Normal) Stool :24 C-DIFFICILE, STOOL (10312) Comments: PATIENT NOT FASTINGPERFORMED BY: [facility]6370 [facility] [id number] Information: [id number] C difficile Toxins A+B, EIA Negative (Normal) :25 LAINE CULTURE-STOOL (97303) Comments: PATIENT NOT FASTINGPERFORMED BY: [facility]6370 [facility] [id number] Information: SRC:STL [id number] E coli Shiga Toxin EIA Negative (Normal) Result 1 NCI (Normal) Comments: No Campylobacter species isolated. Campylobacter Culture Final report (Normal) Result 1 NSS (Normal) Comments: No Salmonella or Shigella recovered. Salmonella/Shigella Screen Final report (Normal) :22 Blood Glucose , Office (32221) Blood Glucose , Office 191 (Normal) :22 HgA1C , Office (29231) HgA1C , Office 7.4 % (Abnormal) Range: 4.6 - 7.1 :19 CBC W/Diff, Automated Comments: [facility] [address] [place], [place], [id number] Absolute Lymph 1.86 {X10_3/ul} (Normal) Range: 0.83-4.51 Absolute Neut 5.4 {X10_3/uL} (Normal) Range: 2.0-7.7 IM GRAN % 0.100 % (Normal) Range: 0.0-0.9 Comments: IG% - Immature Granulocytes (promyelocytes, myelocytes andmetamyelocytes) > 1% indicates that a LEFT SHIFT is Present. BASO% 0.7 % (Normal) Range: 0-1 EO% 4.7 % (Normal) Range: 0-5 MONO% 8.1 % (Normal) Range: 0-10 LY% 22.3 % (Normal) Range: 19-41 NEUT% 64.1 % (Normal) Range: 47-70 MPV 9.3 fL (Normal) Range: 6.2-12.0 PLT 170 K/mm3 (Normal) Range: 150-450 RDW SD 46.6 fL (Abnormal) Range: 35.1-43.9 RDW CV 17.1 % (Abnormal) Range: 11.6-14.6 MCHC 29.7 {g/gl} (Abnormal) Range: 32-36 MCH 22.3 pg (Abnormal) Range: 27.0-32.0 MCV 75.1 fL (Abnormal) Range: 81-99 HCT 34.7 % (Abnormal) Range: 37-47 HGB 10.3 g/dL (Abnormal) Range: 12.0-15.0 RBC 4.62 {M/mm3} (Normal) Range: 4.2-5.4 WBC 8.4 K/mm3 (Normal) Range: 4.4-11.0 [id number] Comprehensive Metabolic Profil Comments: [facility] [id number] [place], [place], [id number] GAP 10 (Normal) Range: 5-15 CO2 24.0 mmol/L (Normal) Range: 21.0-32.0 CL 105 mmol/L (Normal) Range: 98-107 K 4.9 mmol/L (Normal) Range: 3.5-5.1 NA 139 mmol/L (Normal) Range: 136-145 T BILI 0.40 mg/dL (Normal) Range: 0.20-1.00 ALT 21 U/L (Normal) Range: 12-78 ALK P 48 U/L (Abnormal) Range: 50-136 AST 18 U/L (Normal) Range: 15-37 CA 8.7 mg/dL (Normal) Range: 8.5-10.1 A/G 1.0 {RATIO} (Normal) Range: 0.9-2.4 GLOB 3.3 g/dL (Normal) Range: 2.3-3.5 ALB 3.2 g/dL (Abnormal) Range: 3.4-5.0 T PROT 6.5 g/dL (Normal) Range: 6.4-8.2 BUN/CRE 17.7 {RATIO} (Normal) Range: 10-20 EST GFR - AA 52 mL/min (Abnormal) Comments: GFR Calc EST GFR 43 mL/min (Abnormal) Comments: Non- GFR Calc CREAT,SERUM 1.30 mg/dL (Abnormal) Range: 0.55-1.20 Comments: The validity of the calculated GFR AND GFRAA in patients over70 years has not been determined. Clinical correlation isessential. BUN 23 mg/dL (Abnormal) Range: 7-18 GLU 143 mg/dL (Abnormal) Range: 70-110 Comments: Fasting Glucose result greater than or equal to 126 mg/dLsuggests DIABETES MELLITUS per A.D.A. criteria. [id number] CALCIFEDIOL ([id number]) Comments: PATIENT NOT FASTINGPERFORMED BY: [email or web address] [place] [id number] Vitamin D, 25-Hydroxy 20.8 ng/mL (Abnormal) Range: 30.0-100.0 Comments: Vitamin D deficiency has been defined by the [employer] and an [employer] Society practice guideline as alevel of serum 25-OH vitamin D less than 20 ng/mL (1,2).The Endocrine Society went on to further define vitamin Dinsufficiency as a level between 21 and 29 ng/mL (2).1. IOM ([employer]). 2010. Dietary reference intakes for calcium and D. [place]: The National Academies Press.2. Brandon MF, Bakari NC, Vicente IZAGUIRRE, et al. Evaluation, treatment, and prevention of vitamin D deficiency: an Endocrine Society clinical practice guideline. JCEM. 2010; 96(7):1911-30. :50 POTASSIUM SERUM (07459) Comments: PATIENT NOT FASTINGPERFORMED BY: [facility] [facility] Punmvz3547 [facility] [id number] Potassium, Serum 5.4 mmol/L (Abnormal) Range: 3.5-5.2 27-Ids-902453:50 MAGNESIUM (39530) Comments: PATIENT NOT FASTINGPERFORMED BY: [facility]6370 [facility] [id number] Magnesium, Serum 1.8 mg/dL (Normal) Range: 1.6-2.3 45-Juw-767331:50 AMMONIA (53143) Comments: PATIENT NOT FASTINGPERFORMED BY: [facility]1447 [facility] [id number] BY: [facility]6370 [facility] [id number] Ammonia, Plasma 40 ug/dL (Normal) Range: 19-87 92-Tgk-859505:50 SPEP (49513) Comments: PATIENT NOT FASTINGPERFORMED BY: [address] [id number] Information: [id number] Please note: SPRCS (Normal) Comments: Protein electrophoresis scan will follow via computer, mail, orcourier delivery. A/G Ratio 1.2 (Normal) Range: 0.7-2.0 Globulin, Total 3.0 g/dL (Normal) Range: 2.0-4.5 M-Anam Comment: g/dL (Normal) Comments: [facility] Gamma Globulin 0.6 g/dL (Normal) Range: 0.5-1.6 Beta Globulin 1.0 g/dL (Normal) Range: 0.6-1.3 Kondx-9-Kyomdxff 1.1 g/dL (Normal) Range: 0.4-1.2 Iumww-6-Jpakmxrl 0.3 g/dL (Normal) Range: 0.1-0.4 Albumin 3.5 g/dL (Normal) Range: 3.2-5.6 Protein, Total, Serum 6.5 g/dL (Normal) Range: 6.0-8.5 59-Bfg-443796:54 CREATININE CLEARANCE Comments: PATIENT NOT FASTINGPERFORMED BY: [facility]6[address] [facility] [id number] Information: [id number] START 07/18/15@630A M FINISH 07/18@7AM ([id number]) Creatinine Clearance 57 mL/min (Abnormal) Range: 88-128 Comments: The above range is based on 1.73 square meter average body surfacearea. Creatinine, Ur 24hr 615.6 {mg/24_hr} (Abnormal) Range: 800.0-1800.0 Creatinine, Urine 68.4 mg/dL (Normal) Range: 15.0-278.0 Comments: Effective August 02, 2015 the reference interval for Creatinine, Urine will be changing to: Not Estab. eGFR If Africn Am 92 mL/min/1.73 (Normal) eGFR If NonAfricn Am 80 mL/min/1.73 (Normal) Creatinine, Serum 0.75 mg/dL (Normal) Range: 0.57-1.00 81-Ozm-533325:54 Total Protein,24 Hour Urine Comments: PATIENT NOT FASTINGPERFORMED BY: [facility]6370 [facility] [id number]; has fu 07-21 (27835) Prot,24hr calculated 354.6 {mg/24_hr} (Abnormal) Range: 30.0-150.0 Protein,Total,Urine 39.4 mg/dL (Abnormal) Range: 0.0-15.0 Comments: Effective August 02, 2015 the reference interval for Protein, Total, Urine will be changing to: Not Estab. 43-Jam-510240:45 URINE VMA (24817) Comments: 24 hour urine; PATIENT NOT FASTINGPERFORMED BY: [facility]1447 [facility] [id number] VMA, Urine, 24hr 2.3 {mg/24_hr} (Normal) Range: 0.0-7.5 VMA, Urine 3.3 mg/L (Normal) 17-Xcu-689977:50 RENIN (74682) Comments: PATIENT NOT FASTINGPERFORMED BY: [employer] [id number] BY: [facility]6370 [facility] [id number] Information: [id number] Renin Activity, Plasma 1.17 {ng/mL/hr} (Normal) Comments: Adult Normal Salt Intake: Upright 1.31 - 3.95 Supine 0.15 - 2. 33 . Salt Excretion (Na mEq/24 hr): Na= 0 - 30 8.82 - 23.86 Na= 30 - 75 4.09 - 7.73 Na= 75 - 150 1.44 - 2.80 Na= >150 0.39 - 1.31 :45 METANEPHRINES - URINE (24869) Comments: PATIENT NOT FASTINGPERFORMED BY: [employer] LabMymCartIqtnhzanui9[address] [id number] Metanephrine, U,24hr 50 {ug/24_hr} (Normal) Range: 45-290 Comments: (Hypertensive) >17 years 11 months: 35 - 460 Metanephrine, Ur 71 ug/L (Normal) Normetanephr.,U,24h 319 {ug/24_hr} (Normal) Range: 82-500 Comments: (Hypertensive) >17 years 11 months: 110 - 1050 Normetanephrine, Ur 455 ug/L (Normal) :45 CATECHOLAMINES TOTAL, URINE Comments: PATIENT NOT FASTINGPERFORMED BY: [employer] [facility] Nbizdmlral[address] [id number] Information: SRC:BATSHEVA [id number] START 07/20@9AM JENNIE CRUZ (47815) Dopamine, Ur, 24hr 90 {ug/24_hr} (Normal) Range: 0-510 Dopamine, Urine 128 ug/L (Normal) Norepinephrine,U,24h 48 {ug/24_hr} (Normal) Range: 0-135 Norepinephrine, Ur 68 ug/L (Normal) Epinephrine, U, 24hr 1 {ug/24_hr} (Normal) Range: 0-20 Epinephrine, Urine 2 ug/L (Normal) :50 HgA1C , Office (29238) HgA1C , Office 7.7 % (Abnormal) Range: 4.6 - 7.1 :20 CBC W/Diff, Automated Comments: [facility] [address] [place], [place], [id number] Absolute Lymph 1.40 {X10_3/ul} (Normal) Range: 0.83-4.51 Absolute Neut 4.9 {X10_3/uL} (Normal) Range: 2.0-7.7 IM GRAN % 0.100 % (Normal) Range: 0.0-0.9 Comments: IG% - Immature Granulocytes (promyelocytes, myelocytes andmetamyelocytes) > 1% indicates that a LEFT SHIFT is Present. BASO% 0.6 % (Normal) Range: 0-1 EO% 5.7 % (Abnormal) Range: 0-5 MONO% 7.2 % (Normal) Range: 0-10 LY% 19.3 % (Normal) Range: 19-41 NEUT% 67.1 % (Normal) Range: 47-70 MPV 9.1 fL (Normal) Range: 6.2-12.0 PLT 206 K/mm3 (Normal) Range: 150-450 RDW SD 44.5 fL (Abnormal) Range: 35.1-43.9 RDW CV 15.5 % (Abnormal) Range: 11.6-14.6 MCHC 29.5 {g/gl} (Abnormal) Range: 32-36 MCH 23.1 pg (Abnormal) Range: 27.0-32.0 MCV 78.4 fL (Abnormal) Range: 81-99 HCT 37.3 % (Normal) Range: 37-47 HGB 11.0 g/dL (Abnormal) Range: 12.0-15.0 RBC 4.76 {M/mm3} (Normal) Range: 4.2-5.4 WBC 7.2 K/mm3 (Normal) Range: 4.4-11.0 25-Jun-20159:20 Comprehensive Metabolic Profil Comments: [facility] [address] [place], [place], [address] GAP 8 (Normal) Range: 5-15 CO2 26.0 mmol/L (Normal) Range: 21.0-32.0 CL 107 mmol/L (Normal) Range: 98-107 K 4.8 mmol/L (Normal) Range: 3.5-5.1 NA 141 mmol/L (Normal) Range: 136-145 T BILI 0.40 mg/dL (Normal) Range: 0.20-1.00 ALT 13 U/L (Normal) Range: 12-78 ALK P 55 U/L (Normal) Range: 50-136 AST 11 U/L (Abnormal) Range: 15-37 CA 8.8 mg/dL (Normal) Range: 8.5-10.1 A/G 0.7 {RATIO} (Abnormal) Range: 0.9-2.4 GLOB 3.8 g/dL (Abnormal) Range: 2.3-3.5 ALB 2.7 g/dL (Abnormal) Range: 3.4-5.0 T PROT 6.5 g/dL (Normal) Range: 6.4-8.2 BUN/CRE 20.4 {RATIO} (Abnormal) Range: 10-20 EST GFR - AA 86 mL/min (Normal) Comments: GFR Calc EST GFR 71 mL/min (Normal) Comments: Non- GFR Calc CREAT,SERUM 0.83 mg/dL (Normal) Range: 0.55-1.20 Comments: The validity of the calculated GFR AND GFRAA in patients over70 years has not been determined. Clinical correlation isessential. BUN 17 mg/dL (Normal) Range: 7-18 GLU 237 mg/dL (Abnormal) Range: 70-110 Comments: Glucose result greater than or equal to 200 mg/dLsuggests DIABETES MELLITUS per A.D.A. criteria. 07-Vem-190136:49 HgA1C , Office (73855) HgA1C , Office 6.6 % (Normal) Range: 4.6 - 7.1 :04 CBC W/Diff, Automated Comments: [facility] [address] [place], [place], [id number] Absolute Lymph 1.54 {X10_3/ul} (Normal) Range: 0.83-4.51 Absolute Neut 6.2 {X10_3/uL} (Normal) Range: 2.0-7.7 IM GRAN % 0.200 % (Normal) Range: 0.0-0.9 Comments: IG% - Immature Granulocytes (promyelocytes, myelocytes andmetamyelocytes) > 1% indicates that a LEFT SHIFT is Present. BASO% 0.3 % (Normal) Range: 0-1 EO% 5.4 % (Abnormal) Range: 0-5 MONO% 8.2 % (Normal) Range: 0-10 LY% 17.1 % (Abnormal) Range: 19-41 NEUT% 68.8 % (Normal) Range: 47-70 MPV 9.1 fL (Normal) Range: 6.2-12.0 PLT 214 K/mm3 (Normal) Range: 150-450 RDW SD 46.3 fL (Abnormal) Range: 35.1-43.9 RDW CV 16.2 % (Abnormal) Range: 11.6-14.6 MCHC 31.5 {g/gl} (Abnormal) Range: 32-36 MCH 25.1 pg (Abnormal) Range: 27.0-32.0 MCV 79.8 fL (Abnormal) Range: 81-99 HCT 40.6 % (Normal) Range: 37-47 HGB 12.8 g/dL (Normal) Range: 12.0-15.0 RBC 5.09 {M/mm3} (Normal) Range: 4.2-5.4 WBC 9.0 K/mm3 (Normal) Range: 4.4-11.0 7-Boo-672274:04 Comprehensive Metabolic Profil Comments: [facility] [address] [place], [address] GAP 11 (Normal) Range: 5-15 CO2 24.0 mmol/L (Normal) Range: 21.0-32.0 CL 107 mmol/L (Normal) Range: 98-107 K 4.1 mmol/L (Normal) Range: 3.5-5.1 NA 142 mmol/L (Normal) Range: 136-145 T BILI 0.30 mg/dL (Normal) Range: 0.20-1.00 ALT 22 U/L (Normal) Range: 12-78 ALK P 70 U/L (Normal) Range: 50-136 AST 12 U/L (Abnormal) Range: 15-37 CA 9.1 mg/dL (Normal) Range: 8.5-10.1 A/G 0.8 {RATIO} (Abnormal) Range: 0.9-2.4 GLOB 3.9 g/dL (Abnormal) Range: 2.3-3.5 ALB 3.2 g/dL (Abnormal) Range: 3.4-5.0 T PROT 7.1 g/dL (Normal) Range: 6.4-8.2 BUN/CRE 18.2 {RATIO} (Normal) Range: 10-20 EST GFR - AA 113 mL/min (Normal) Comments: GFR Calc EST GFR 93 mL/min (Normal) Comments: Non- GFR Calc CREAT,SERUM 0.66 mg/dL (Normal) Range: 0.55-1.20 Comments: The validity of the calculated GFR AND GFRAA in patients over70 years has not been determined. Clinical correlation isessential. BUN 12 mg/dL (Normal) Range: 7-18 GLU 115 mg/dL (Abnormal) Range: 70-110 Comments: Fasting Glucose result from 110 to <126 mg/dLsuggests IMPAIRED HOMEOSTASIS per A.D.A. criteria. :10 Basic Metabolic Profile (BMP) Comments: Serial Specimen #1, #2 or #3? 1'TROP' Serial specimen #1, #2, #3, or #4: 1[facility] [address] [place], [place], [address] GAP 9 (Normal) Range: 5-15 CO2 26.0 mmol/L (Normal) Range: 21.0-32.0 CL 105 mmol/L (Normal) Range: 98-107 K 3.7 mmol/L (Normal) Range: 3.5-5.1 NA 140 mmol/L (Normal) Range: 136-145 CA 9.1 mg/dL (Normal) Range: 8.5-10.1 BUN/CRE 13.9 {RATIO} (Normal) Range: 10-20 Estimated CRCL 38.94 ml/min (Normal) EST GFR - AA 116 mL/min (Normal) Comments: GFR Calc EST GFR 96 mL/min (Normal) Comments: Non- GFR Calc CREAT,SERUM 0.65 mg/dL (Normal) Range: 0.55-1.20 Comments: The validity of the calculated GFR AND GFRAA in patients over70 years has not been determined. Clinical correlation isessential. BUN 9 mg/dL (Normal) Range: 7-18 GLU 156 mg/dL (Abnormal) Range: 70-110 Comments: Fasting Glucose result greater than or equal to 126 mg/dLsuggests DIABETES MELLITUS per A.D.A. criteria. :10 Carboxyhemoglobin Frac (CO) Comments: [facility] [address] [place], [place], [id number] COHb 1.3 % (Normal) Range: 0.0-1.5 Comments: * NON-SMOKER RANGE 1.6 - 5.0% * LIGHT SMOKER RANGE 5.1 - 9.0% * HEAVY SMOKER RANGE :10 CBC W/Diff, Automated Comments: [facility] Vggejkwiwx7966 [facility]. [place], [place], [id number] Absolute Lymph 0.87 {X10_3/ul} (Normal) Range: 0.83-4.51 Absolute Neut 6.6 {X10_3/uL} (Normal) Range: 2.0-7.7 IM GRAN % 0.100 % (Normal) Range: 0.0-0.9 Comments: IG% - Immature Granulocytes (promyelocytes, myelocytes andmetamyelocytes) > 1% indicates that a LEFT SHIFT is Present. BASO% 0.5 % (Normal) Range: 0-1 EO% 1.3 % (Normal) Range: 0-5 MONO% 6.8 % (Normal) Range: 0-10 LY% 10.6 % (Abnormal) Range: 19-41 NEUT% 80.7 % (Abnormal) Range: 47-70 MPV 9.0 fL (Normal) Range: 6.2-12.0 PLT 144 K/mm3 (Abnormal) Range: 150-450 RDW SD 42.9 fL (Normal) Range: 35.1-43.9 RDW CV 14.9 % (Abnormal) Range: 11.6-14.6 MCHC 31.9 {g/gl} (Abnormal) Range: 32-36 MCH 25.1 pg (Abnormal) Range: 27.0-32.0 MCV 78.9 fL (Abnormal) Range: 81-99 HCT 40.5 % (Normal) Range: 37-47 HGB 12.9 g/dL (Normal) Range: 12.0-15.0 RBC 5.13 {M/mm3} (Normal) Range: 4.2-5.4 WBC 8.2 K/mm3 (Normal) Range: 4.4-11.0 :10 CK-MB Quantitative and Index Comments: Serial Specimen #1, #2 or #3? 1'TROP' Serial specimen #1, #2, #3, or #4: [address] [place] [address] [address] [place], [address] CKRI 1.9 % (Abnormal) Range: 0.0-1.4 Comments: RELATIVE INDEX >1.5% IS PRESUMPTIVELY POSITIVE CPKMB 1.0 ng/mL (Normal) Range: 0.0-5.0 Comments: CK-MB and RI Interpretation MB Relative Index Non-AMI <or= 5 NA Indeterminate > 5 <or= 4 AMI > 5 > 4 CPK TOTAL 53 U/L (Normal) Range: 26-192 65-Toa-82534:10 Troponin-I Comments: Serial Specimen #1, #2 or #3? 1'TROP' Serial specimen #1, #2, #3, or #4: [address] [place] [address] [address] [place], [address] TROPONIN-I 0.03 ng/mL (Normal) Comments: TROPONIN-I EXPECTED VALUES <0.05 NEGATIVE 0.06 - 0.59 AT RISK OF [place] > OR = 0.60 SUGGEST [place] 1-Bcm-226491:28 CBC W/Diff, Automated Comments: Test performed at:[facility] [address] [place] [address] Absolute Lymph 1.31 {X10_3/ul} (Normal) Range: 0.83-4.51 Absolute Neut 4.0 {X10_3/uL} (Normal) Range: 2.0-7.7 IM GRAN % 0.200 % (Normal) Range: 0.0-0.9 Comments: IG% - Immature Granulocytes (promyelocytes, myelocytes andmetamyelocytes) > 1% indicates that a LEFT SHIFT is Present. BASO% 0.6 % (Normal) Range: 0-1 EO% 5.5 % (Abnormal) Range: 0-5 MONO% 10.8 % (Abnormal) Range: 0-10 LY% 20.5 % (Normal) Range: 19-41 NEUT% 62.4 % (Normal) Range: 47-70 MPV 9.7 fL (Normal) Range: 6.2-12.0 PLT 179 K/mm3 (Normal) Range: 150-450 RDW SD 46.8 fL (Abnormal) Range: 35.1-43.9 RDW CV 16.3 % (Abnormal) Range: 11.6-14.6 MCHC 32.0 {g/gl} (Normal) Range: 32-36 MCH 25.8 pg (Abnormal) Range: 27.0-32.0 MCV 80.6 fL (Abnormal) Range: 81-99 HCT 40.3 % (Normal) Range: 37-47 HGB 12.9 g/dL (Normal) Range: 12.0-15.0 RBC 5.00 {M/mm3} (Normal) Range: 4.2-5.4 WBC 6.4 K/mm3 (Normal) Range: 4.4-11.0 7-Iib-100354:28 Comprehensive Metabolic Profil Comments: Test performed at:[facility] [address] [place] [address] GAP 7 (Normal) Range: 5-15 CO2 30.0 mmol/L (Normal) Range: 21.0-32.0 CL 104 mmol/L (Normal) Range: 98-107 K 4.1 mmol/L (Normal) Range: 3.5-5.1 NA 141 mmol/L (Normal) Range: 136-145 T BILI 0.70 mg/dL (Normal) Range: 0.20-1.00 ALT 19 U/L (Normal) Range: 12-78 ALK P 59 U/L (Normal) Range: 50-136 AST 13 U/L (Abnormal) Range: 15-37 CA 9.1 mg/dL (Normal) Range: 8.5-10.1 A/G 0.9 {RATIO} (Normal) Range: 0.9-2.4 GLOB 3.6 g/dL (Abnormal) Range: 2.3-3.5 ALB 3.1 g/dL (Abnormal) Range: 3.4-5.0 T PROT 6.7 g/dL (Normal) Range: 6.4-8.2 BUN/CRE 20.3 {RATIO} (Abnormal) Range: 10-20 CREAT,SERUM 0.69 mg/dL (Normal) Range: 0.55-1.20 Comments: Please note revised CREATININE reference range ktpbgsord45/22/2015. BUN 14 mg/dL (Normal) Range: 7-18 GLU 145 mg/dL (Abnormal) Range: 70-110 Comments: Fasting Glucose result greater than or equal to 126 mg/dLsuggests DIABETES MELLITUS per A.D.A. criteria. :17 HgA1C , Office (29842) HgA1C , Office 6.2 % (Normal) Range: 4.6 - 7.1 :34 CBC W/Diff, Automated Comments: Test performed at:[facility] [address] [place] [address] Absolute Lymph 0.90 {X10_3/ul} (Normal) Range: 0.83-4.51 Absolute Neut 3.5 {X10_3/uL} (Normal) Range: 2.0-7.7 IM GRAN % 0.200 % (Normal) Range: 0.0-0.9 Comments: IG% - Immature Granulocytes (promyelocytes, myelocytes andmetamyelocytes) > 1% indicates that a LEFT SHIFT is Present. BASO% 0.8 % (Normal) Range: 0-1 EO% 5.6 % (Abnormal) Range: 0-5 MONO% 8.7 % (Normal) Range: 0-10 LY% 17.4 % (Abnormal) Range: 19-41 NEUT% 67.3 % (Normal) Range: 47-70 MPV 9.5 fL (Normal) Range: 6.2-12.0 PLT 166 K/mm3 (Normal) Range: 150-450 RDW SD 45.1 fL (Abnormal) Range: 35.1-43.9 RDW CV 16.2 % (Abnormal) Range: 11.6-14.6 MCHC 32.4 {g/gl} (Normal) Range: 32-36 MCH 25.0 pg (Abnormal) Range: 27.0-32.0 MCV 77.3 fL (Abnormal) Range: 81-99 HCT 42.6 % (Normal) Range: 37-47 HGB 13.8 g/dL (Normal) Range: 12.0-15.0 RBC 5.51 {M/mm3} (Abnormal) Range: 4.2-5.4 WBC 5.2 K/mm3 (Normal) Range: 4.4-11.0 :34 Comprehensive Metabolic Profil Comments: Test performed at:[facility] [address] [place] [address] GAP 7 (Normal) Range: 5-15 CO2 28.0 mmol/L (Normal) Range: 21.0-32.0 CL 104 mmol/L (Normal) Range: 98-107 K 4.1 mmol/L (Normal) Range: 3.5-5.1 NA 139 mmol/L (Normal) Range: 136-145 T BILI 0.70 mg/dL (Normal) Range: 0.20-1.00 ALT 21 U/L (Normal) Range: 12-78 ALK P 61 U/L (Normal) Range: 50-136 AST 19 U/L (Normal) Range: 15-37 CA 8.8 mg/dL (Normal) Range: 8.5-10.1 A/G 0.9 {RATIO} (Normal) Range: 0.9-2.4 GLOB 3.7 g/dL (Normal) Range: 2.7-4.2 ALB 3.3 g/dL (Abnormal) Range: 3.4-5.0 T PROT 7.0 g/dL (Normal) Range: 6.4-8.2 BUN/CRE 18.8 {RATIO} (Normal) Range: 10-20 CREAT,SERUM 0.8 mg/dL (Normal) Range: 0.6-1.0 BUN 15 mg/dL (Normal) Range: 7-18 GLU 123 mg/dL (Abnormal) Range: 70-110 Comments: Fasting Glucose result from 110 to <126 mg/dLsuggests IMPAIRED HOMEOSTASIS per A.D.A. criteria. :34 Lipid Profile Comments: Test performed at:[facility] [address] [place] [address] VLDL 33 mg/dL (Normal) Range: 5-40 LDL 141 mg/dL (Abnormal) Range: 0-130 HDL 42 mg/dL (Normal) Comments: Reference Range HDL <40 mg/dL Low HDL Cholesterol HDL >or= 60 mg/dL High HDL Cholesterol TRIG 166 mg/dL (Normal) Range: 0-199 Comments: Serum Triglycerides Reference Interval Normal <150 mg/dL Borderline high 150 - 199 mg/dL High 200 - 499 mg/dL Very High > or = 500 mg/dL CHOL 216 mg/dL (Abnormal) Comments: <200 mg/dL Desirable 200-240 mg/dL Borderline >240 mg/dL High Risk 8-Uhd-477935:34 Thyroid Stim Hormone (TSH) Comments: Test performed at:[facility] [address]ytmiwffqu6636 [facility] [place] [address] TSH 2.56 {uIU/mL} (Normal) Range: 0.358-3.74 61-Loa-869766:02 CBC W/Diff, Automated Comments: Test performed at:[facility] [address]wtuywfekl1403 [facility] [place] [address] Absolute Lymph 1.28 {X10_3/ul} (Normal) Range: 0.83-4.51 Absolute Neut 3.7 {X10_3/uL} (Normal) Range: 2.0-7.7 IM GRAN % 0.300 % (Normal) Range: 0.0-0.9 Comments: IG% - Immature Granulocytes (promyelocytes, myelocytes andmetamyelocytes) > 1% indicates that a LEFT SHIFT is Present. BASO% 0.7 % (Normal) Range: 0-1 EO% 6.4 % (Abnormal) Range: 0-5 MONO% 10.5 % (Abnormal) Range: 0-10 LY% 21.0 % (Normal) Range: 19-41 NEUT% 61.1 % (Normal) Range: 47-70 MPV 10.2 fL (Normal) Range: 6.2-12.0 PLT 184 K/mm3 (Normal) Range: 150-450 RDW SD 47.5 fL (Abnormal) Range: 35.1-43.9 RDW CV 16.6 % (Abnormal) Range: 11.6-14.6 MCHC 31.4 {g/gl} (Abnormal) Range: 32-36 MCH 24.9 pg (Abnormal) Range: 27.0-32.0 MCV 79.2 fL (Abnormal) Range: 81-99 HCT 40.7 % (Normal) Range: 37-47 HGB 12.8 g/dL (Normal) Range: 12.0-15.0 RBC 5.14 {M/mm3} (Normal) Range: 4.2-5.4 WBC 6.1 K/mm3 (Normal) Range: 4.4-11.0 :02 Comprehensive Metabolic Profil Comments: Test performed at:[facility] [address] [place], [place] [id number] GAP 9 (Normal) Range: 5-15 CO2 28.0 mmol/L (Normal) Range: 21.0-32.0 CL 103 mmol/L (Normal) Range: 98-107 K 4.5 mmol/L (Normal) Range: 3.5-5.1 NA 140 mmol/L (Normal) Range: 136-145 T BILI 0.40 mg/dL (Normal) Range: 0.20-1.00 ALT 16 U/L (Normal) Range: 12-78 ALK P 64 U/L (Normal) Range: 50-136 AST 16 U/L (Normal) Range: 15-37 CA 8.7 mg/dL (Normal) Range: 8.5-10.1 A/G 0.9 {RATIO} (Normal) Range: 0.9-2.4 GLOB 3.5 g/dL (Normal) Range: 2.7-4.2 ALB 3.0 g/dL (Abnormal) Range: 3.4-5.0 T PROT 6.5 g/dL (Normal) Range: 6.4-8.2 BUN/CRE 18.8 {RATIO} (Normal) Range: 10-20 CREAT,SERUM 0.8 mg/dL (Normal) Range: 0.6-1.0 BUN 15 mg/dL (Normal) Range: 7-18 GLU 114 mg/dL (Abnormal) Range: 70-110 Comments: Fasting Glucose result from 110 to <126 mg/dLsuggests IMPAIRED HOMEOSTASIS per A.D.A. criteria. :47 HgA1C , Office (33993) HgA1C , Office 5.7 % (Normal) Range: 4.6 - 7.1 :47 Blood Glucose , Office (25302) Blood Glucose , Office 132 (Normal) :39 CBC W/Diff, Automated Comments: Test performed at:[facility] [address] [place] [address] Absolute Lymph 1.14 {X10_3/ul} (Normal) Range: 0.83-4.51 Absolute Neut 4.0 {X10_3/uL} (Normal) Range: 2.0-7.7 IM GRAN % 0.200 % (Normal) Range: 0.0-0.9 Comments: IG% - Immature Granulocytes (promyelocytes, myelocytes andmetamyelocytes) > 1% indicates that a LEFT SHIFT is Present. BASO% 0.5 % (Normal) Range: 0-1 EO% 4.9 % (Normal) Range: 0-5 MONO% 8.9 % (Normal) Range: 0-10 LY% 19.1 % (Normal) Range: 19-41 NEUT% 66.4 % (Normal) Range: 47-70 MPV 9.2 fL (Normal) Range: 6.2-12.0 PLT 143 K/mm3 (Abnormal) Range: 150-450 RDW SD 48.1 fL (Abnormal) Range: 35.1-43.9 RDW CV 16.8 % (Abnormal) Range: 11.6-14.6 MCHC 30.6 {g/gl} (Abnormal) Range: 32-36 MCH 24.1 pg (Abnormal) Range: 27.0-32.0 MCV 78.7 fL (Abnormal) Range: 81-99 HCT 38.5 % (Normal) Range: 37-47 HGB 11.8 g/dL (Abnormal) Range: 12.0-15.0 RBC 4.89 {M/mm3} (Normal) Range: 4.2-5.4 WBC 6.0 K/mm3 (Normal) Range: 4.4-11.0 [id number] Comprehensive Metabolic Profil Comments: Test performed at:[facility] [id number] [place] [address] GAP 7 (Normal) Range: 5-15 CO2 27.0 mmol/L (Normal) Range: 21.0-32.0 CL 105 mmol/L (Normal) Range: 98-107 K 4.1 mmol/L (Normal) Range: 3.5-5.1 NA 139 mmol/L (Normal) Range: 136-145 T BILI 0.50 mg/dL (Normal) Range: 0.00-4.00 ALT 13 U/L (Normal) Range: 12-78 ALK P 64 U/L (Normal) Range: 50-136 AST 14 U/L (Abnormal) Range: 15-37 CA 8.5 mg/dL (Normal) Range: 8.5-10.1 A/G 1.0 {RATIO} (Normal) Range: 0.9-2.4 GLOB 3.2 g/dL (Normal) Range: 2.7-4.2 ALB 3.1 g/dL (Abnormal) Range: 3.4-5.0 T PROT 6.3 g/dL (Abnormal) Range: 6.4-8.2 BUN/CRE 13.8 {RATIO} (Normal) Range: 10-20 CREAT,SERUM 0.8 mg/dL (Normal) Range: 0.6-1.0 BUN 11 mg/dL (Normal) Range: 7-18 GLU 100 mg/dL (Normal) Range: 70-110 [id number] TSH ([id number]) Comments: PATIENT NOT FASTINGPERFORMED BY: [employer] [id number] [facility] [id number] TSH 4.120 {uIU/mL} (Normal) Range: 0.450-4.500 [id number] URINE LAINE CULTURE-IDENTIFICATN Comments: PATIENT NOT FASTINGPERFORMED BY: [employer] [id number] [facility] [id number] ([id number]) Antimicrobial MIHEAD (Normal) Comments: S = Susceptible; I = Intermediate; R = Resistant P = Positive; N = Negative MICS are expressed in micrograms per mL Antibiotic RSLT#1 RSLT#2 Susceptibility RSLT#3 RSLT#4Amoxicillin/Clavulanic Acid S SAmpicillin R RCefazolin RCefepime S SCeftriaxone S SCefuroxime S RCephalothin S RCiprofloxacin S S SErtapenem S SGentamicin S SImipenem S SLevofloxacin S S SNitrofurantoin S R SPenicillin SPiperacillin R RTetracycline S R RTobramycin S STrimethoprim/Sulfa S SVancomycin S Result 3 Enterococcus faecalis Comments: 1,000 Colonies/mLNote: this isolate is vancomycin-susceptible.This information is provided for epidemiologic purposesonly: vancomycin is not among the antibioticsrecommended for therapy of urinary tract (Abnormal) infectionscaused by Enterococcus.For Enterococcus species, cephalosporins, aminoglycosides (except forhigh-level resistance screening), clindamycin, and trimethoprim-sulfamethoxazole are not effective clinically. Fluoroquinolones areused primarily for treating urinary tract infections. (CLSI, [id number],2009) Result 1 ECV (Abnormal) Comments: Escherichia coli, identified by an automated biochemical system.1,000 Colonies/mLProteus mirabilis/penneri1,000 Colonies/mL Urine Final report Culture,Comprehensive (Abnormal) [id number] URINALYSIS ([id number]) Comments: PATIENT NOT FASTINGPERFORMED BY: [email or web address] [facility] [id number] Information: [id number] Microscopic Examination MICNIP (Normal) Comments: Microscopic not indicated and not performed. Nitrite, Urine Negative (Normal) Urobilinogen,Semi-Qn 0.2 mg/dL (Normal) Range: 0.0-1.9 Bilirubin Negative (Normal) Occult Blood Negative (Normal) Ketones Negative (Normal) Glucose Negative (Normal) Protein Negative (Normal) WBC Esterase Negative (Normal) Appearance Clear (Normal) Urine-Color Yellow (Normal) pH 6.0 (Normal) Range: 5.0-7.5 Specific [place] 1.021 (Normal) Range: 1.005-1.030 [id number] CBC, Platelets & Auto Diff Comments: PATIENT NOT FASTINGPERFORMED BY: [email or web address] [id number] [facility] [id number] Information: [id number] ([id number]) Immature Grans (Abs) 0.0 {x10E3/uL} (Normal) Range: 0.0-0.1 Immature Granulocytes 0 % (Normal) Baso (Absolute) 0.0 {x10E3/uL} (Normal) Range: 0.0-0.2 Eos (Absolute) 0.2 {x10E3/uL} (Normal) Range: 0.0-0.4 Monocytes(Absolute) 0.6 {x10E3/uL} (Normal) Range: 0.1-0.9 Lymphs (Absolute) 1.6 {x10E3/uL} (Normal) Range: 0.7-3.1 Neutrophils (Absolute) 4.0 {x10E3/uL} (Normal) Range: 1.4-7.0 Basos 1 % (Normal) Eos 3 % (Normal) Monocytes 9 % (Normal) Lymphs 25 % (Normal) Neutrophils 62 % (Normal) Platelets 187 {x10E3/uL} (Normal) Range: 150-379 RDW 15.8 % (Abnormal) Range: 12.3-15.4 MCHC 31.9 g/dL (Normal) Range: 31.5-35.7 MCH 24.6 pg (Abnormal) Range: 26.6-33.0 MCV 77 fL (Abnormal) Range: 79-97 Hematocrit 40.7 % (Normal) Range: 34.0-46.6 Hemoglobin 13.0 g/dL (Normal) Range: 11.1-15.9 RBC 5.28 {x10E6/uL} (Normal) Range: 3.77-5.28 WBC 6.5 {x10E3/uL} (Normal) Range: 3.4-10.8 :38 Lipase ([id number]) Comments: PATIENT NOT FASTINGPERFORMED BY: [facility] [id number] Lipase, Serum 19 U/L (Normal) Range: 0-59 :38 Amylase ([id number]) Comments: PATIENT NOT FASTINGPERFORMED BY: [facility] [place] [address] [id number] Amylase, Serum 32 U/L (Normal) Range: 31-124 7-Csm-499562:38 Metabolic Panel, Comprehensive Comments: PATIENT NOT FASTINGPERFORMED BY: [place] [id number] [facility] [id number] ([id number]) ALT (SGPT) 17 [iU]/L (Normal) Range: 0-32 AST (SGOT) 27 [iU]/L (Normal) Range: 0-40 Alkaline Phosphatase, S 74 [iU]/L (Normal) Range: 39-117 Bilirubin, Total 0.3 mg/dL (Normal) Range: 0.0-1.2 A/G Ratio 1.8 (Normal) Range: 1.1-2.5 Globulin, Total 2.2 g/dL (Normal) Range: 1.5-4.5 Albumin, Serum 3.9 g/dL (Normal) Range: 3.5-4.8 Protein, Total, Serum 6.1 g/dL (Normal) Range: 6.0-8.5 Calcium, Serum 9.3 mg/dL (Normal) Range: 8.6-10.2 Carbon Dioxide, Total 25 mmol/L (Normal) Range: 18-29 Chloride, Serum 99 mmol/L (Normal) Range: 97-108 Potassium, Serum 4.0 mmol/L (Normal) Range: 3.5-5.2 Sodium, Serum 141 mmol/L (Normal) Range: 134-144 BUN/Creatinine Ratio 20 (Normal) Range: 11-26 eGFR If Africn Am 104 mL/min/1.73 (Normal) eGFR If NonAfricn Am 90 mL/min/1.73 (Normal) Creatinine, Serum 0.66 mg/dL (Normal) Range: 0.57-1.00 BUN 13 mg/dL (Normal) Range: 8-27 Glucose, Serum 155 mg/dL (Abnormal) Range: 65-99 :28 HgA1C , Office (31990) HgA1C , Office 7.9 % (Abnormal) Range: 4.6 - 7.1 :28 Blood Glucose , Office (63328) Blood Glucose , Office 170 (Normal) 16-Mnb-749388:05 HgA1C , Office (77166) HgA1C , Office 7.5 % (Abnormal) Range: 4.6 - 7.1 :05 Blood Glucose , Office (43602) Blood Glucose , Office 267 (Normal) 1-Cuw-162202:19 CBCD Comments: DR FRANCISCO ORDERED CMP CBCDDR ROSELYN ORDERED CMP CBCD ALC 0.86 {X10_3/ul} (Normal) Range: 0.83-4.51 ANC 5.4 {X10_3/uL} (Normal) Range: 2.0-7.7 IG% 0.300 % (Normal) Range: 0.0-0.9 Comments: IG% - Immature Granulocytes (promyelocytes, myelocytes andmetamyelocytes) > 1% indicates that a LEFT SHIFT is Present. B% 0.3 % (Normal) Range: 0-1 E% 0.5 % (Normal) Range: 0-5 M% 2.5 % (Normal) Range: 0-10 L% 13.4 % (Abnormal) Range: 19-41 N% 83.0 % (Abnormal) Range: 47-70 MPV 8.8 fL (Normal) Range: 6.2-12.0 PLT 152 K/mm3 (Normal) Range: 150-450 RDWSD 43.5 fL (Normal) Range: 35.1-43.9 RDWCV 15.4 % (Abnormal) Range: 11.6-14.6 MCHC 31.7 {g/gl} (Abnormal) Range: 32-36 MCH 24.7 pg (Abnormal) Range: 27.0-32.0 MCV 77.9 fL (Abnormal) Range: 81-99 HCT 41.3 % (Normal) Range: 37-47 HGB 13.1 g/dL (Normal) Range: 12.0-15.0 RBC 5.30 {M/mm3} (Normal) Range: 4.2-5.4 WBC 6.4 K/mm3 (Normal) Range: 4.4-11.0 2-Una-492606:19 CMP Comments: DR FRANCISCO ORDERED CMP CBCDDR BONEZZI ORDERED CMP CBCD GAP 7 (Normal) Range: 5-15 CO2 26.0 mmol/L (Normal) Range: 21.0-32.0 CL 102 mmol/L (Normal) Range: 98-107 K 4.3 mmol/L (Normal) Range: 3.5-5.1 NA 135 mmol/L (Abnormal) Range: 136-145 BIT 0.40 mg/dL (Normal) Range: 0.00-1.00 ALK 84 U/L (Normal) Range: 45-117 ALT 19 U/L (Normal) Range: 12-78 AST 16 U/L (Normal) Range: 15-37 CA 8.7 mg/dL (Normal) Range: 8.5-10.1 AG 0.9 {RATIO} (Normal) Range: 0.9-2.4 GLOB 3.5 g/dL (Normal) Range: 2.7-4.2 ALB 3.1 g/dL (Abnormal) Range: 3.4-5.0 TPROT 6.6 g/dL (Normal) Range: 6.4-8.2 BC 12.2 {RATIO} (Normal) Range: 10-20 GFRAA 80 mL/min (Normal) GFR 66 mL/min (Normal) CREAT 0.9 mg/dL (Normal) Range: 0.6-1.0 BUN 11 mg/dL (Normal) Range: 7-18 GLU 267 mg/dL (Abnormal) Range: 70-110 Comments: Glucose result greater than or equal to 200 mg/dLsuggests DIABETES MELLITUS per A.D.A. criteria. :19 TSH 2.09 {uIU/mL} (Normal) Comments: DR FRANCISCO ORDERED CMP CBCDDR ROSELYN ORDERED CMP CBCD Range: 0.358-3.74 :03 HgA1C , Office (45644) HgA1C , Office 9.1 % (Abnormal) Range: 4.6 - 7.1 :03 Blood Glucose , Office (06224) Blood Glucose , Office 136 (Normal) :22 Blood Glucose , Office (80777) Blood Glucose , Office 204 (Normal) :21 HgA1C , Office (35850) HgA1C , Office 7.3 % (Abnormal) Range: 4.6 - 7.1 :45 HgA1C , Office (49557) HgA1C , Office 7.3 % (Abnormal) Range: 4.6 - 7.1 :45 Blood Glucose , Office (31398) Blood Glucose , Office 176 (Normal) Comments: fasting :26 CBCD ANC 4.0 {X10_3/uL} (Normal) Range: 2.0-7.7 IG% 0.200 % (Normal) Range: 0.0-0.9 Comments: IG% - Immature Granulocytes (promyelocytes, myelocytes andmetamyelocytes) > 1% indicates that a LEFT SHIFT is Present. B% 0.5 % (Normal) Range: 0-1 E% 5.3 % (Abnormal) Range: 0-5 M% 8.4 % (Normal) Range: 0-10 L% 19.2 % (Normal) Range: 19-41 N% 66.4 % (Normal) Range: 47-70 MPV 9.3 fL (Normal) Range: 6.2-12.0 PLT 146 K/mm3 (Abnormal) Range: 150-450 RDWSD 45.1 fL (Abnormal) Range: 35.1-43.9 MCHC 31.6 {g/gl} (Abnormal) Range: 32-36 RDWCV 15.5 % (Abnormal) Range: 11.6-14.6 MCH 25.3 pg (Abnormal) Range: 27.0-32.0 MCV 80.1 fL (Abnormal) Range: 81-99 HCT 40.2 % (Normal) Range: 37-47 HGB 12.7 g/dL (Normal) Range: 12.0-15.0 RBC 5.02 {M/mm3} (Normal) Range: 4.2-5.4 WBC 6.0 K/mm3 (Normal) Range: 4.4-11.0 00-Pcc-133248:26 CMP GAP 8 (Normal) Range: 5-15 CO2 27.0 mmol/L (Normal) Range: 21.0-32.0 CL 107 mmol/L (Normal) Range: 98-107 K 4.3 mmol/L (Normal) Range: 3.5-5.1 NA 142 mmol/L (Normal) Range: 136-145 BIT 0.60 mg/dL (Normal) Range: 0.00-1.00 ALT 32 U/L (Normal) Range: 12-78 ALK 78 U/L (Normal) Range: 50-136 AST 25 U/L (Normal) Range: 15-37 CA 8.7 mg/dL (Normal) Range: 8.5-10.1 AG 0.9 {RATIO} (Normal) Range: 0.9-2.4 ALB 3.1 g/dL (Abnormal) Range: 3.4-5.0 GLOB 3.5 g/dL (Normal) Range: 2.7-4.2 TPROT 6.6 g/dL (Normal) Range: 6.4-8.2 BC 20.0 {RATIO} (Normal) Range: 10-20 GFRAA 80 mL/min (Normal) GFR 66 mL/min (Normal) CREAT 0.9 mg/dL (Normal) Range: 0.6-1.0 BUN 18 mg/dL (Normal) Range: 7-18 GLU 144 mg/dL (Abnormal) Range: 70-110 Comments: Fasting Glucose result greater than or equal to 126 mg/dLsuggests DIABETES MELLITUS per A.D.A. criteria. 09-Ddf-692176:33 HgA1C , Office (43591) HgA1C , Office 7.1 % (Normal) Range: 4.6 - 7.1 :33 Blood Glucose , Office (54121) Blood Glucose , Office 127 (Normal) 67-Lkk-043980:40 CBC With Differential/Platelet Comments: PERFORMED BY: [facility]CareZomeja5803 [facility] [id number] Immature Grans (Abs) 0.0 {x10E3/uL} (Normal) Range: 0.0-0.1 Immature Granulocytes 0 % (Normal) Range: 0-2 Baso (Absolute) 0.0 {x10E3/uL} (Normal) Range: 0.0-0.2 Eos (Absolute) 0.3 {x10E3/uL} (Normal) Range: 0.0-0.4 Monocytes(Absolute) 0.5 {x10E3/uL} (Normal) Range: 0.1-1.0 Lymphs (Absolute) 1.1 {x10E3/uL} (Normal) Range: 0.7-4.5 Neutrophils (Absolute) 4.2 {x10E3/uL} (Normal) Range: 1.8-7.8 Basos 1 % (Normal) Range: 0-3 Eos 5 % (Normal) Range: 0-7 Monocytes 8 % (Normal) Range: 4-13 Lymphs 17 % (Normal) Range: 14-46 Neutrophils 69 % (Normal) Range: 40-74 Platelets 199 {x10E3/uL} (Normal) Range: 140-415 RDW 17.3 % (Abnormal) Range: 12.3-15.4 MCHC 31.0 g/dL (Abnormal) Range: 31.5-35.7 MCH 23.5 pg (Abnormal) Range: 26.6-33.0 MCV 76 fL (Abnormal) Range: 79-97 Hematocrit 38.4 % (Normal) Range: 34.0-46.6 Hemoglobin 11.9 g/dL (Normal) Range: 11.1-15.9 RBC 5.07 {x10E6/uL} (Normal) Range: 3.77-5.28 WBC 6.2 {x10E3/uL} (Normal) Range: 4.0-10.5 :40 Comp. Metabolic Panel (14) Comments: PERFORMED BY: [employer] [facility] [id number] ALT (SGPT) 24 [iU]/L (Normal) Range: 0-32 AST (SGOT) 33 [iU]/L (Normal) Range: 0-40 Alkaline Phosphatase, 71 [iU]/L (Normal) Range: 47-112 S Bilirubin, Total 0.5 mg/dL (Normal) Range: 0.0-1.2 A/G Ratio 1.5 (Normal) Range: 1.1-2.5 Globulin, Total 2.6 g/dL (Normal) Range: 1.5-4.5 Albumin, Serum 3.8 g/dL (Normal) Range: 3.6-4.8 Protein, Total, Serum 6.4 g/dL (Normal) Range: 6.0-8.5 Calcium, Serum 9.2 mg/dL (Normal) Range: 8.6-10.2 Carbon Dioxide, Total 23 mmol/L (Normal) Range: 19-28 Chloride, Serum 104 mmol/L (Normal) Range: 97-108 Potassium, Serum 4.8 mmol/L (Normal) Range: 3.5-5.2 Sodium, Serum 141 mmol/L (Normal) Range: 134-144 BUN/Creatinine Ratio 19 (Normal) Range: 11-26 eGFR If Africn Am 88 mL/min/1.73 (Normal) eGFR If NonAfricn Am 77 mL/min/1.73 (Normal) Creatinine, Serum 0.79 mg/dL (Normal) Range: 0.57-1.00 BUN 15 mg/dL (Normal) Range: 8-27 Glucose, Serum 124 mg/dL Range: 65-99 (Abnormal) TSH 3.580 {uIU/mL} Comments: PERFORMED BY: [employer]1786 [facility] [id number] :40 (Normal) Range: 0.450-4.500 67-Cst-251222:38 PREALBUMIN (66831) Comments: PATIENT NOT FASTINGPERFORMED BY: [facility] HealthCareGgbocl6538 [facility] [id number] Information: ADD [id number] AND DRAW FEE 99 7638 Prealbumin 21 mg/dL (Normal) Range: 20-40 :35 HgA1C , Office (39406) HgA1C , Office 7.3 % (Abnormal) Range: 4.6 - 7.1 43-Bhx-200381:01 HgA1C , Office (11642) HgA1C , Office 7.4 % (Abnormal) Range: 4.6 - 7.1 :46 HgA1C , Office (91137) HgA1C , Office 7.3 % (Abnormal) Range: 4.6 - 7.1 :46 Blood Glucose , Office (79121) Blood Glucose , Office 193 (Normal) :12 HgA1C , Office (57419) HgA1C , Office 6.7 % (Normal) Range: 4.6 - 7.1 44-Nwz-624776:12 Blood Glucose , Office (22453) Blood Glucose , Office 103 (Normal) 54-Oxb-127843:26 CBCMD RBCM NORM C+C {NORMAL} (Normal) PE ADEQUATE (Normal) EOS 2 % (Normal) Range: 0-5 MON 8 % (Normal) Range: 0-10 LYMPH 12 % (Abnormal) Range: 19-41 PMN 78 % (Abnormal) Range: 47-70 ZEKE 100 (Normal) ANC 5.0 3/uL (Normal) Range: 2.0-7.7 PLT 208 K/mm3 (Normal) Range: 150-450 RDW 17.3 % (Abnormal) Range: 11.6-14.6 MCHC 31.7 g/dL (Abnormal) Range: 32-36 MCH 26.7 pg (Abnormal) Range: 27.0-32.0 MCV 84.1 fL (Normal) Range: 81-99 HCT 34.4 % (Abnormal) Range: 37-47 HGB 10.9 g.dL (Abnormal) Range: 12.0-15.0 Comments: Please note: Revised HEMOGLOBIN REFERENCE RANGES Reference Range effective 11. RBC 4.09 {M/mm3} (Abnormal) Range: 4.2-5.4 WBC 7.2 K/mm3 (Normal) Range: 4.4-11.0 40-Fhb-675159:26 CMP GAP 8 (Normal) Range: 5-15 CO2 26.0 mmol/L (Normal) Range: 21.0-32.0 CL 106 mmol/L (Normal) Range: 98-107 K 4.2 mmol/L (Normal) Range: 3.5-5.1 NA 140 mmol/L (Normal) Range: 136-145 BIT 0.50 mg/dL (Normal) Range: 0.00-1.00 ALT 27 U/L (Normal) Range: 12-78 ALK 77 U/L (Normal) Range: 50-136 AST 17 U/L (Normal) Range: 15-37 CA 8.7 mg/dL (Normal) Range: 8.5-10.1 AG 0.8 {RATIO} (Abnormal) Range: 0.9-2.4 GLOB 3.6 g/dL (Normal) Range: 2.7-4.2 ALB 2.9 g/dL (Abnormal) Range: 3.4-5.0 TPROT 6.5 g/dL (Normal) Range: 6.4-8.2 BC 18.9 {RATIO} (Normal) Range: 10-20 GFRAA 80 mL/min (Normal) GFR 66 mL/min (Normal) CREAT 0.9 mg/dL (Normal) Range: 0.6-1.0 BUN 17 mg/dL (Normal) Range: 7-18 GLU 80 mg/dL (Normal) Range: 70-110 14-Wvi-893713:26 LIPID VLDL 12 mg/dL (Normal) Range: 5-40 LDL 73 mg/dL (Normal) Range: 0-130 HDL 62 mg/dL (Normal) Comments: Reference Range HDL <40 mg/dL Low HDL Cholesterol HDL >or= 60 mg/dL High HDL Cholesterol CHOL 147 mg/dL (Normal) Comments: <200 mg/dL Desirable 200-240 mg/dL Borderline >240 mg/dL High Risk TRIG 61 mg/dL (Normal) Comments: Serum Triglycerides Reference Interval Normal <150 mg/dL Borderline high 150 - 199 mg/dL High 200 - 499 mg/dL Very High > or = 500 mg/dL 65-Pgj-604918:26 MIACRE tMICROCREAT 14.2 {mg/g_CRE} (Normal) MIALB 10.9 mg/L (Normal) CREU 76.7 mg/dL (Normal) 25-Ipr-464092:21 HgA1C , Office (50583) HgA1C , Office 6.7 % (Normal) Range: 4.6 - 7.1 78-Rfl-171862:21 Blood Glucose , Office (32105) Blood Glucose , Office 88 (Normal) 9-Vti-999484:06 CBCD SMEAR COMMENT SeeNote (Normal) Comments: Result: NEUTROPHILIA NOTED ABSOLUTE NEUT 6.1 3/uL (Normal) Range: 2.0-7.7 BASO% 0.1 % (Normal) Range: 0-1 EO% 0.2 % (Normal) Range: 0-5 MONO% 3.5 % (Normal) Range: 0-10 LY% 11.1 % (Abnormal) Range: 19-41 NEUT% 85.1 % (Abnormal) Range: 47-70 MPV 7.0 fL (Normal) Range: 6.5-12.0 PLT 214 K/mm3 (Normal) Range: 150-450 RDW 16.5 % (Abnormal) Range: 11.6-14.6 MCHC 33.8 g/dL (Normal) Range: 32-36 MCH 28.0 pg (Normal) Range: 27.0-32.0 MCV 82.8 fL (Normal) Range: 81-99 HCT 27.9 % (Abnormal) Range: 37-47 HGB 9.4 g/dL (Abnormal) Range: 12.0-16.0 RBC 3.37 {M/mm3} (Abnormal) Range: 4.2-5.4 WBC 7.2 K/mm3 (Normal) Range: 4.4-11.0 :06 COMP METABOLIC GAP 8 (Normal) Range: 5-15 CO2 26.0 mmol/L (Normal) Range: 21.0-32.0 CL 107 mmol/L (Normal) Range: 98-107 K 4.5 mmol/L (Normal) Range: 3.5-5.1 NA 141 mmol/L (Normal) Range: 136-145 T BILI 0.60 mg/dL (Normal) Range: 0.00-1.00 ALT 24 U/L (Normal) Range: 12-78 ALK P 59 U/L (Normal) Range: 50-136 AST 15 U/L (Normal) Range: 15-37 CA 8.7 mg/dL (Normal) Range: 8.5-10.1 A/G 0.8 {RATIO} (Abnormal) Range: 0.9-2.4 GLOB 3.8 g/dL (Normal) Range: 2.7-4.2 ALB 2.9 g/dL (Abnormal) Range: 3.4-5.0 T PROT 6.7 g/dL (Normal) Range: 6.4-8.2 BUN/CRE 16.0 {RATIO} (Normal) Range: 10-20 EST GFR - AA 72 mL/min (Normal) EST GFR 59 mL/min (Abnormal) CREAT,SERUM 1.0 mg/dL (Normal) Range: 0.6-1.0 BUN 16 mg/dL (Normal) Range: 7-18 GLU 204 mg/dL (Abnormal) Range: 70-110 Comments: Glucose result greater than or equal to 200 mg/dLsuggests DIABETES MELLITUS per A.D.A. criteria. 7-Zua-278976:06 FERRITIN 88 ng/mL (Normal) Range: 8-252 84-Nwb-306921:30 HgA1C , Office (99521) HgA1C , Office 8.4 % (Abnormal) Range: 4.6 - 7.1 71-Ugt-519035:30 Blood Glucose , Office (98094) Blood Glucose , Office 232 (Normal) 99-Zcb-191307:39 HgA1C , Office (49212) HgA1C , Office 8.2 % (Abnormal) Range: 4.6 - 7.1 53-Ebr-514487:39 Blood Glucose , Office (76508) Blood Glucose , Office 181 (Normal) 74-Qwd-043371:20 CBCD,SMEAR DIFF Comments: ORDERED CBCD,CMPDRLAWANDA ORDERED CBCMD,LIPID,CMP,MICROALB RED CELL MORPH SeeNote {NORMAL} (Normal) Comments: Result: NORM C+C PLT EST SeeNote (Normal) Comments: Result: ADEQUATE EOS 4 % (Normal) Range: 0-5 MONOCYTE 3 % (Normal) Range: 0-10 LYMPH 36 % (Normal) Range: 19-41 SEGS 57 % (Normal) Range: 47-70 CELLS COUNTED 100 (Normal) ABSOLUTE NEUT 3.9 3/uL (Normal) Range: 2.0-7.7 PLT 197 K/mm3 (Normal) Range: 150-450 RDW 16.5 % (Abnormal) Range: 11.6-14.6 MCHC 33.7 g/dL (Normal) Range: 32-36 MCH 31.0 pg (Normal) Range: 27.0-32.0 MCV 91.8 fL (Normal) Range: 81-99 HCT 35.7 % (Abnormal) Range: 37-47 HGB 12.0 g/dL (Normal) Range: 12.0-16.0 RBC 3.89 {M/mm3} (Abnormal) Range: 4.2-5.4 WBC 6.8 K/mm3 (Normal) Range: 4.4-11.0 54-Pwz-203965:20 COMP METABOLIC Comments: ORDERED CBCD,CMPDR.BONEZZI ORDERED CBCMD,LIPID,CMP,MICROALB GAP 9 (Normal) Range: 5-15 CO2 30.0 mmol/L (Normal) Range: 21.0-32.0 CL 99 mmol/L (Normal) Range: 98-107 K 4.0 mmol/L (Normal) Range: 3.5-5.1 NA 138 mmol/L (Normal) Range: 136-145 T BILI 0.50 mg/dL (Normal) Range: 0.00-1.00 ALT 51 U/L (Normal) Range: 12-78 ALK P 53 U/L (Normal) Range: 50-136 AST 35 U/L (Normal) Range: 15-37 CA 9.0 mg/dL (Normal) Range: 8.5-10.1 A/G 1.0 {RATIO} (Normal) Range: 0.9-2.4 GLOB 3.4 g/dL (Normal) Range: 2.7-4.2 ALB 3.5 g/dL (Normal) Range: 3.4-5.0 T PROT 6.9 g/dL (Normal) Range: 6.4-8.2 BUN/CRE 22.3 {RATIO} (Abnormal) Range: 10-20 EST GFR - AA 52 mL/min (Abnormal) EST GFR 43 mL/min (Abnormal) CREAT,SERUM 1.3 mg/dL (Abnormal) Range: 0.6-1.0 BUN 29 mg/dL (Abnormal) Range: 7-18 GLU 158 mg/dL (Abnormal) Range: 70-110 Comments: Fasting Glucose result greater than or equal to 126 mg/dL suggests DIABETES MELLITUS per A.D.A. criteria. 75-Fea-504326:20 LIPID Comments: ORDERED CBCD,CMPDR.ROSELYN ORDERED CBCMD,LIPID,CMP,MICROALB LDL 72 mg/dL (Normal) Range: 0-130 VLDL 37 mg/dL (Normal) Range: 5-40 HDL 41 mg/dL (Normal) Comments: Reference Range HDL <40 mg/dL Low HDL Cholesterol HDL >or= 60 mg/dL High HDL Cholesterol TRIG 185 mg/dL (Normal) Comments: Serum Triglycerides Reference Interval Normal <150 mg/dL Borderline high 150 - 199 mg/dL High 200 - 499 mg/dL Very High > or = 500 mg/dL CHOL 150 mg/dL (Normal) Comments: <200 mg/dL Desirable 200-240 mg/dL Borderline >240 mg/dL High Risk 51-Loj-755129:04 Blood Glucose , Office (48105) Blood Glucose , Office 244 (Normal) :36 HgA1C , Office (02108) HgA1C , Office 7.5 % (Abnormal) Range: 4.6 - 7.1 :36 Blood Glucose , Office (04109) Blood Glucose , Office 178 (Normal) :24 HgA1C , Office (88060) HgA1C , Office 6.8 % (Normal) Range: 4.6 - 7.1 :24 Blood Glucose , Office (33444) Blood Glucose , Office 141 (Normal) Comments: fasting :58 CBCD Comments: DR FRANCISCO ORDERED CBCD ABSOLUTE NEUT 3.6 3/uL (Normal) Range: 2.0-7.7 BASO% 0.3 % (Normal) Range: 0-1 EO% 2.6 % (Normal) Range: 0-5 MONO% 6.4 % (Normal) Range: 0-10 LY% 25.9 % (Normal) Range: 19-41 NEUT% 64.8 % (Normal) Range: 47-70 MPV 7.8 fL (Normal) Range: 6.5-12.0 PLT 169 K/mm3 (Normal) Range: 150-450 RDW 16.3 % (Abnormal) Range: 11.6-14.6 MCH 31.6 pg (Normal) Range: 27.0-32.0 MCHC 35.2 g/dL (Normal) Range: 32-36 MCV 89.7 fL (Normal) Range: 81-99 HCT 38.8 % (Normal) Range: 37-47 HGB 13.7 g/dL (Normal) Range: 12.0-16.0 RBC 4.32 {M/mm3} (Normal) Range: 4.2-5.4 WBC 5.6 K/mm3 (Normal) Range: 4.4-11.0 42-Hiq-997709:58 COMP METABOLIC Comments: DR DEMPSEY ORDERED LIPID DR FRANCISCO ORDERED CBCDBOTH AMRK ORDERED CMP CO2 30.0 mmol/L (Normal) Range: 21.0-32.0 GAP 11 (Normal) Range: 5-15 CL 100 mmol/L (Normal) Range: 98-107 K 4.3 mmol/L (Normal) Range: 3.5-5.1 ALT 52 U/L (Normal) Range: 12-78 NA 141 mmol/L (Normal) Range: 136-145 T BILI 0.50 mg/dL (Normal) Range: 0.00-1.00 ALK P 84 U/L (Normal) Range: 50-136 AST 37 U/L (Normal) Range: 15-37 CA 9.0 mg/dL (Normal) Range: 8.5-10.1 A/G 1.0 {RATIO} (Normal) Range: 0.9-2.4 GLOB 3.5 g/dL (Normal) Range: 2.7-4.2 ALB 3.6 g/dL (Normal) Range: 3.4-5.0 BUN/CRE 24.2 {RATIO} (Abnormal) Range: 10-20 T PROT 7.1 g/dL (Normal) Range: 6.4-8.2 EST GFR 48 mL/min (Abnormal) EST GFR - AA 58 mL/min (Abnormal) BUN 29 mg/dL (Abnormal) Range: 7-18 CREAT,SERUM 1.2 mg/dL (Abnormal) Range: 0.6-1.0 GLU 135 mg/dL (Abnormal) Range: 70-110 Comments: Fasting Glucose result greater than or equal to 126 mg/dL suggests DIABETES MELLITUS per A.D.A. criteria. 84-Asc-139940:58 LIPID Comments: DR DEMPSEY ORDERED LIPID DR FRANCISCO ORDERED CBCDBOTH MARK ORDERED CMP LDL 82 mg/dL (Normal) Range: 0-130 VLDL 45 mg/dL (Abnormal) Range: 5-40 HDL 43 mg/dL (Normal) Comments: Reference Range HDL <40 mg/dL Low HDL Cholesterol HDL >or= 60 mg/dL High HDL Cholesterol TRIG 225 mg/dL (Abnormal) Comments: Serum Triglycerides Reference Interval Normal <150 mg/dL Borderline high 150 - 199 mg/dL High 200 - 499 mg/dL Very High > or = 500 mg/dL CHOL 170 mg/dL (Normal) Comments: <200 mg/dL Desirable 200-240 mg/dL Borderline >240 mg/dL High Risk :02 HgA1C , Office (44300) HgA1C , Office 6.9 % (Normal) Range: 4.6 - 7.1 :02 Blood Glucose , Office (89569) Blood Glucose , Office 251 (Normal) 51-Bws-18800:11 CBCD SMEAR COMMENT COMMENT (Normal) Comments: 3+ ANISOCYTOSIS1+ POIKILOCYTOSIS ABSOLUTE NEUT 5.2 3/uL (Normal) Range: 2.0-7.7 BASO% 0.5 % (Normal) Range: 0-1 EO% 2.3 % (Normal) Range: 0-5 MONO% 6.4 % (Normal) Range: 0-10 LY% 20.1 % (Normal) Range: 19-41 NEUT% 70.7 % (Abnormal) Range: 47-70 MPV 7.8 fL (Normal) Range: 6.5-12.0 PLT 189 K/mm3 (Normal) Range: 150-450 RDW 29.4 % (Abnormal) Range: 11.6-14.6 MCH 27.3 pg (Normal) Range: 27.0-32.0 MCHC 33.0 g/dL (Normal) Range: 32-36 MCV 82.9 fL (Normal) Range: 81-99 HCT 38.6 % (Normal) Range: 37-47 HGB 12.7 g/dL (Normal) Range: 12.0-16.0 RBC 4.66 {M/mm3} (Normal) Range: 4.2-5.4 WBC 7.4 K/mm3 (Normal) Range: 4.4-11.0 :11 COMP METABOLIC ALK P 76 U/L (Normal) Range: 50-136 ALT 33 U/L (Normal) Range: 12-78 CL 99 mmol/L (Normal) Range: 98-107 CO2 29.0 mmol/L (Normal) Range: 21.0-32.0 GAP 10 (Normal) Range: 5-15 K 4.1 mmol/L (Normal) Range: 3.5-5.1 NA 138 mmol/L (Normal) Range: 136-145 T BILI 0.30 mg/dL (Normal) Range: 0.00-1.00 A/G 1.0 {RATIO} (Normal) Range: 0.9-2.4 ALB 3.7 g/dL (Normal) Range: 3.4-5.0 AST 19 U/L (Normal) Range: 15-37 BUN/CRE 14.3 {RATIO} (Normal) Range: 10-20 CA 9.6 mg/dL (Normal) Range: 8.5-10.1 CREAT,SERUM 1.4 mg/dL (Abnormal) Range: 0.6-1.0 EST GFR 40 mL/min (Abnormal) EST GFR - AA 48 mL/min (Abnormal) GLOB 3.7 g/dL (Normal) Range: 2.7-4.2 T PROT 7.4 g/dL (Normal) Range: 6.4-8.2 BUN 20 mg/dL (Abnormal) Range: 7-18 GLU 139 mg/dL (Abnormal) Range: 70-110 Comments: Fasting Glucose result greater than or equal to 126 mg/dLsuggests DIABETES MELLITUS per A.D.A. criteria. [id number] DOT DIR SEMI-QL DOT DIRECT 52 AU/mL (Normal) :54 ANTI-CCP [id number] > 250 {units} Range: 0-19 (Abnormal) Comments: Negative <20Weak positive 20 - 39Moderate positive 40 - 59Strong positive >59 :54 C-REACTIVE PROT 23.90 mg/L (Abnormal) Range: 0.0-3.0 Comments: C-Reactive Protein (CRP) provides useful information for thediagnosis, therapy and monitoring of inflammatory processesand associated diseases. For the evaluation of Relative Riskfor Cardiovascular Dise ase, a High Sensitivity CRP (HSCRP)should be ordered. [id number] CBCD SMEAR COMMENT SeeNote (Normal) Comments: Result: NEUTROPHILIA ABSOLUTE NEUT 9.0 3/uL (Abnormal) Range: 2.0-7.7 BASO% 0.1 % (Normal) Range: 0-1 EO% 1.4 % (Normal) Range: 0-5 LY% 8.4 % (Abnormal) Range: 19-41 MONO% 2.2 % (Normal) Range: 0-10 NEUT% 87.9 % (Abnormal) Range: 47-70 HCT 30.5 % (Abnormal) Range: 37-47 HGB 9.8 g/dL (Abnormal) Range: 12.0-16.0 MCH 22.7 pg (Abnormal) Range: 27.0-32.0 MCHC 32.0 g/dL (Normal) Range: 32-36 MCV 71.0 fL (Abnormal) Range: 81-99 MPV 7.0 fL (Normal) Range: 6.5-12.0 PLT 201 K/mm3 (Normal) Range: 150-450 RBC 4.30 {M/mm3} (Normal) Range: 4.2-5.4 RDW 20.3 % (Abnormal) Range: 11.6-14.6 WBC 10.3 K/mm3 (Normal) Range: 4.4-11.0 [id number] COMP METABOLIC ALK P 87 U/L (Normal) Range: 50-136 ALT 17 U/L (Normal) Range: 12-78 AST 7 U/L (Abnormal) Range: 15-37 CL 97 mmol/L (Abnormal) Range: 98-107 CO2 24.0 mmol/L (Normal) Range: 21.0-32.0 GAP 14 (Normal) Range: 5-15 K 4.6 mmol/L (Normal) Range: 3.5-5.1 NA 135 mmol/L (Abnormal) Range: 136-145 T BILI 0.30 mg/dL (Normal) Range: 0.00-1.00 A/G 0.9 {RATIO} (Normal) Range: 0.9-2.4 ALB 3.4 g/dL (Normal) Range: 3.4-5.0 BUN/CRE 16.4 {RATIO} (Normal) Range: 10-20 CA 9.0 mg/dL (Normal) Range: 8.5-10.1 EST GFR 53 mL/min (Abnormal) EST GFR - AA 64 mL/min (Normal) GLOB 3.8 g/dL (Normal) Range: 2.7-4.2 T PROT 7.2 g/dL (Normal) Range: 6.4-8.2 BUN 18 mg/dL (Normal) Range: 7-18 CREAT,SERUM 1.1 mg/dL (Abnormal) Range: 0.6-1.0 GLU 258 mg/dL (Abnormal) Range: 70-110 Comments: Glucose result greater than or equal to 200 mg/dLsuggests DIABETES MELLITUS per A.D.A. criteria. :54 COMPLETE UA BACTERIA 0 SEEN {/hpf} (Normal) MUCUS, URINE 0 SEEN {/hpf} (Normal) RBC-UA 0 SEEN {/hpf} (Normal) Range: 0-5 SQUAM EPI SeeNote {/hpf} (Normal) Range: 5-10 Comments: Result: 0-5 SEEN WBC SeeNote {/hpf} (Normal) Range: 0-5 Comments: Result: 0-5 SEEN BILIRUBIN URINE SeeNote (Normal) Comments: Result: NEGATIVE GLUCOSE, UR 2+ (Abnormal) KETONE UR SeeNote mg/dL (Normal) Comments: Result: NEGATIVE LEUK ESTERASE SeeNote (Normal) Comments: Result: NEGATIVE NITRITE UR SeeNote (Normal) Comments: Result: NEGATIVE OCCULT BLOOD-UR SeeNote (Normal) Comments: Result: NEGATIVE pH UR 7.0 (Normal) Range: 5.0-8.0 PROT DIPSTX SeeNote (Normal) Comments: Result: NEGATIVE SP.GR. DIPSTX 1.010 (Normal) Range: 1.002-1.030 UROBILI 0.2 EU/dl (Normal) Range: 0.2 - 1.0 CLARITY CLEAR (Normal) COLOR YELLOW (Normal) :54 ESR SED RATE 32 mm/h (Abnormal) Range: 0-30 :54 HB CORE [id number] SeeNote (Normal) Comments: Result: NegativePerformed at: - [facility] [address] [id number] Director: Yasmine Cabrera MD, Phone: [phone] at: [address] [id number] Director: Jovani Odom MD, Phone: [phone] :54 HBsAg 6510 HB SURF AG 6510 SeeNote (Normal) Comments: Result: Negative :54 HEBSAB 6395 < 0.1 (Normal) Range: 0.00-0.99 Comments: Status of Immunity Anti-HBs Level Inconsistent with Immunity 0.00 - 0.99Consistent with Immunity >0.99.An Index Value of 1.00 is equivalent to 10 mIU/mL.However the magnitude of the Index Value is notindicative of the total amount of antibody present. :54 HEP C AB 706076 <0.1 (Normal) Range: 0.0-0.9 Comments: Negative: < 0.8Indeterminate 0.8 - 0.9Positive: > 0.9.In order to reduce the incidence of a false positiveresult, the CDC recommends that all s/co ratiosbetween 1.0 and 10.9 be confirmed with additionalRIBA or PCR testing. :54 RHEUMATOID FAC 539.0 {IU/mL} (Abnormal) :54 VIT D,25 24734 27.3 ng/mL (Abnormal) Range: 32.0-100.0 Comments: Recent studies consider the lower limit of 32.0 ng/mL to gloria threshold for optimal health.Alexander MARY. J Nutr. 2004;135(2):317-22. :30 HAND,MIN 3 VIEWS (MT) Radiology Report See Note (Normal) Comments: Exam Number: [id number] CLINICAL:This a 64-year-old female patient with history of pain. X-RAY EXAMINATION RIGHT HAND TECHNIQUE:Three views of the hand. COMPARISON:None. FINDINGS:Normal visualized carpal bones. Normal metacarpal bones. Normal visualized phalanges. Normal carpal articulations. Normal metacarpophalangeal joints. There are degenerative changesof the interphalangeal joints. There is no d emonstrated soft tissue swelling. IMPRESSION:Chronic degenerative changes, as discussed above. Reported By: VIDHYA NORRIS 13-Nys-387152:29 HAND,MIN 3 VIEWS (MT) Radiology Report See Note (Normal) Comments: Exam Number: [id number] CLINICAL:This is a 64-year-old female patient with history of hand pain. X-RAY EXAMINATION LEFT HAND TECHNIQUE:Three views of the hand. COMPARISON:None. FINDINGS:Normal visualize d carpal bones. Normal metacarpal bones. Normal visualized phalanges. Normal carpal articulations. 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 Normal second throug h fifth carpometacarpalarticulations. Normal metacarpophalangeal joints. There are degenerative changesof the interphalangeal joints. There is no demonstrated soft tissue swelling. IMPRESSION:Chronic d egenerative changes, as discussed above. Reported By: VIDHAY NORRIS 13-Eoi-439252:45 Anti-dsDNA Antibodies Comments: PATIENT WAS FASTINGPERFORMED BY: [employer] [employer] [facility] [id number] BY: [employer] [id number] Anti-DNA (DS) Ab Qn 1 {IU/mL} (Normal) Range: 0-9 Comments: Negative <5Equivocal 5 - 9Positive >9 72-Igr-108345:45 Antinuclear Antibodies Comments: PATIENT WAS FASTINGPERFORMED BY: [facility] [id number] BY: [employer] [id number] Direct DOT Direct Negative (Normal) C-Reactive Protein, 5.1 mg/L (Abnormal) Comments: PATIENT WAS FASTINGPERFORMED BY: [employer] [facility] [id number] BY: [employer] [id number] :45 Quant Range: 0.0-4.9 :45 CBC With Differential/Platelet Comments: PATIENT WAS FASTINGPERFORMED BY: [place] [id number] [facility] [id number] BY: [facility] [id number] Hematology Comments: Note: (Normal) Comments: Verified by microscopic examination. Baso (Absolute) 0.0 {x10E3/uL} Range: 0.0-0.2 (Normal) Eos (Absolute) 0.3 {x10E3/uL} Range: 0.0-0.4 (Normal) Lymphs (Absolute) 1.6 {x10E3/uL} Range: 0.7-4.5 (Normal) Monocytes(Absolute) 0.5 {x10E3/uL} Range: 0.1-1.0 (Normal) Neutrophils (Absolute) 3.1 {x10E3/uL} Range: 1.8-7.8 (Normal) Basos 0 % (Normal) Range: 0-3 Eos 6 % (Normal) Range: 0-7 Lymphs 29 % (Normal) Range: 14-46 Monocytes 9 % (Normal) Range: 4-13 Neutrophils 56 % (Normal) Range: 40-74 Platelets 310 {x10E3/uL} Range: 140-415 (Normal) RDW 21.3 % (Abnormal) Range: 11.7-15.0 MCHC 32.2 g/dL (Normal) Range: 32.0-36.0 MCH 23.5 pg (Abnormal) Range: 27.0-34.0 MCV 73 fL (Abnormal) Range: 80-98 Hematocrit 30.9 % (Abnormal) Range: 34.0-44.0 Hemoglobin 9.9 g/dL (Abnormal) Range: 11.5-15.0 RBC 4.24 {x10E6/uL} Range: 3.80-5.10 (Normal) WBC 5.5 {x10E3/uL} Range: 4.0-10.5 (Normal) CCP Antibodies IgG/IgA >250 {units} Comments: PATIENT WAS FASTINGPERFORMED BY: [place] [id number] [facility] [id number] BY: LabCoAtlantic Rehabilitation InstituteImzgjzogdi2474 [facility] [id number] 3:45 (Abnormal) Range: 0-19 Comments: Negative <20Weak positive 20 - 39Moderate positive 40 - 59Strong positive >59 82-Niv-079775:45 Comp. Metabolic Panel Comments: PATIENT WAS FASTINGPERFORMED BY: [facility] Nggruj7480 Adriane Rahman [place] [id number] BY: [facility] Guvtxjctix2425 [facility] [id number] (14) Alkaline Phosphatase, S 99 [iU]/L (Normal) Range: 25-165 ALT (SGPT) 11 [iU]/L (Normal) Range: 0-40 AST (SGOT) 17 [iU]/L (Normal) Range: 0-40 A/G Ratio 1.5 (Normal) Range: 1.1-2.5 Bilirubin, Total 0.4 mg/dL (Normal) Range: 0.0-1.2 Albumin, Serum 4.1 g/dL (Normal) Range: 3.6-4.8 Globulin, Total 2.8 g/dL (Normal) Range: 1.5-4.5 Calcium, Serum 9.0 mg/dL (Normal) Range: 8.6-10.2 Carbon Dioxide, Total 25 mmol/L (Normal) Range: 20-32 Protein, Total, Serum 6.9 g/dL (Normal) Range: 6.0-8.5 Chloride, Serum 99 mmol/L (Normal) Range: 97-108 Potassium, Serum 4.3 mmol/L Range: 3.5-5.2 (Normal) BUN/Creatinine Ratio 21 (Normal) Range: 8-27 eGFR AfricanAmerican >59 mL/min/1.73 Comments: Note: Persistent reduction for 3 months or more in an eGFR<60 mL/min/1.73 m2 defines CKD. Patients with eGFR values>/=60 mL/min/1.73 m2 may also have CKD if evidence of persistentproteinuria is (Normal) present. Additional information may be found [email or web address]. Sodium, Serum 139 mmol/L Range: 135-145 (Normal) eGFR >59 mL/min/1.73 (Normal) Creatinine, Serum 0.89 mg/dL Range: 0.57-1.00 (Normal) BUN 19 mg/dL (Normal) Range: 5-26 Glucose, Serum 127 mg/dL Range: 65-99 (Abnormal) 20-Aug-2009 Ferritin, Serum 42 ng/mL (Normal) Comments: PATIENT WAS FASTINGPERFORMED BY: AdGrokSanta Ana Health CenterWvsyis8727 [facility] [id number] BY: [address] [id number] 13:45 Range: 13-150 20-Aug-2009 Haptoglobin 252 mg/dL Comments: PATIENT WAS FASTINGPERFORMED BY: KUNFOOD.comSanta Ana Health CenterHzmvui1280 [facility] [id number] BY: [address] [id number] 13:45 (Abnormal) Range: 34-200 85-Swq-377471:45 Iron and TIBC Comments: PATIENT WAS FASTINGPERFORMED BY: [employer] Nzkniz3208 [facility] [id number] BY: [address] [id number] Iron Bind.Cap.(TIBC) 384 ug/dL (Normal) Range: 250-450 Iron Saturation 6 % (Abnormal) Range: 15-55 Iron, Serum 24 ug/dL (Abnormal) Range: 35-155 UIBC 360 ug/dL (Normal) Range: 150-375 55-Wgj-694955 LDH 190 [iU]/L (Normal) Comments: PATIENT WAS FASTINGPERFORMED BY: [facility]GrokRut[facility] - University Behavioral HealthCareWwxgtr4003 [facility] [id number] BY: [address] [id number] :45 Range: 100-250 05-Oau-128670:45 Lipid Panel With LDL/HDL Comments: PATIENT WAS FASTINGPERFORMED BY: AdGrokRutgers - University Behavioral HealthCareVewrke5790 [facility] [id number] BY: [address] [id number] Ratio HDL Cholesterol 41 mg/dL (Normal) Comments: According to ATP-III Guidelines, HDL-C >59 mg/dL is considered anegative risk factor for CHD. LDL Cholesterol Calc 65 mg/dL (Normal) Range: 0-99 LDL/HDL Ratio 1.6 {ratio_units} Range: 0.0-3.2 (Normal) VLDL Cholesterol Dewayne 31 mg/dL (Normal) Range: 5-40 Cholesterol, Total 137 mg/dL (Normal) Range: 100-199 Triglycerides 154 mg/dL Range: 0-149 (Abnormal) Methylmalonic Acid, 182 nmol/L Comments: PATIENT WAS FASTINGPERFORMED BY: [place] [id number] [facility] [id number] BY: [employer] [id number] 3:45 Serum (Normal) Range: 73-376 Comments: The reference range for methylmalonic acid has been set at +3sd abovethe mean for healthy blood bank donors. In the clinical assessment ofpatients with megaloblastic anemias a cutoff of +3sd provides gr eaterspecificity in the diagnosis of the vitamin deficiency states,despite the sacrifice of some sensitivity. 63-Dli-900459:45 PT and PTT Comments: PATIENT WAS FASTINGPERFORMED BY: AdGrokRutgers - University Behavioral HealthCareXedqsg2067 [facility] [id number] BY: [address] [id number] aPTT 29 {sec} (Normal) Range: 24-33 Comments: This test has not been validated for monitoring unfractionated heparintherapy. aPTT-based therapeutic ranges for unfractionated heparintherapy have not been established. For general guidelines onHeparin monitoring, refer to the [facility] Directory of Services. Prothrombin Time 11.1 {sec} Range: 8.7-11.5 (Normal) INR 1.1 (Normal) Range: 0.8-1.2 Comments: Reference interval is for non-anticoagulated patients..Suggested INR therapeutic range for Vitamin Kantagonist therapy:Standard Dose (moderate intensitytherapeutic range): 2.0 - 3.0Higher intensity therapeutic range 2.5 - 3.5 20-Aug-2009 Reticulocyte Count 2.4 % (Normal) Comments: PATIENT WAS FASTINGPERFORMED BY: [facility] Izxqrh4683 [facility] [id number] BY: [address] [id number] 13:45 Range: 0.5-3.0 20-Aug-2009 RPR Non Reactive Comments: PATIENT WAS FASTINGPERFORMED BY: LabPitadela Ahwzko3440 [facility] [id number] BY: [address] [id number] 13:45 (Normal) 20-Aug-2009 Sedimentation 13 mm/h (Normal) Comments: PATIENT WAS FASTINGPERFORMED BY: [employer] Rqplgm1707 [facility] [id number] BY: [address] [id number] 13:45 Rate-Westergren Range: 0-30 20-Aug-2009 TSH 2.470 {uIU/mL} Comments: PATIENT WAS FASTINGPERFORMED BY: [employer] Xmqsmg5805 [facility] [id number] BY: [address] [id number] 13:45 (Normal) Range: 0.450-4.500 98-Zmn-260194:45 Vitamin B12 and Folate Comments: PATIENT WAS FASTINGPERFORMED BY: LabPitadela Fzrvif6384 [facility] [id number] BY: [address] [id number] Folate (Folic Acid), Serum 10.5 ng/mL (Normal) Comments: Indeterminate: 2.2 - 3.0Deficient: <2.2 Vitamin B12 583 pg/mL (Normal) Range: 211-946 73-Mtc-428085:18 HgA1C , Office (51517) HgA1C , Office 7.3 % (Abnormal) Range: 4.6 - 7.1 52-Hxr-457232:18 Blood Glucose , Office (09245) Blood Glucose , Office 167 (Normal) Plan of Care Name Dates Details Instructions Current nonsmoker (Renamed from Current non-smoker) : Eprescribed prescriptions (G8553) Indication: Current nonsmoker (Renamed from Current non-smoker) Current nonsmoker (Renamed from Current non-smoker) : Follow up in 3 months Indication: Current nonsmoker (Renamed from Current non-smoker) Back pain, lumbosacral : Reviewed Lab Indication: Back pain, lumbosacral Diabetes mellitus type II, controlled : Reviewed Lab Indication: Diabetes mellitus type II, controlled BMI 36.0-36.9,adult : Eprescribed prescriptions (G8553) Indication: BMI 36.0-36.9,adult Vitamin D deficiency : Follow up in 3 months Indication: Vitamin D deficiency Vitamin B12 deficiency : Reviewed Diagnostic Tests Indication: Vitamin B12 deficiency Ulcer of foot : Reviewed Lab Indication: Ulcer of foot Charcot foot due to diabetes mellitus : Reviewed Lab Indication: Charcot foot due to diabetes mellitus Rheumatoid arthritis : Reviewed Diagnostic Tests Indication: Rheumatoid arthritis Hypercholesteremia : Reviewed Diagnostic Tests Indication: Hypercholesteremia Diabetes mellitus type II, controlled : Reviewed Diagnostic Tests Indication: Diabetes mellitus type II, controlled Diabetes mellitus type II, controlled : Eprescribed prescriptions (G8553) Indication: Diabetes mellitus type II, controlled Vitamin D deficiency : Follow up in 3 months Indication: Vitamin D deficiency Diabetes mellitus type II, controlled : Eprescribed prescriptions (G8553) Indication: Diabetes mellitus type II, controlled BMI 37.0-37.9, adult : Follow up in 3 months Indication: BMI 37.0-37.9, adult Diabetes mellitus type II, controlled : Eprescribed prescriptions (G8553) Indication: Diabetes mellitus type II, controlled Iron deficiency anemia : Eprescribed prescriptions (G8553) Indication: Iron deficiency anemia Diabetes mellitus type II, controlled : Eprescribed prescriptions (G8553) Indication: Diabetes mellitus type II, controlled Diarrhea : Follow up in 3 months Indication: Diarrhea Diarrhea : Follow up in 3 months Indication: Diarrhea Hypertension, benign : Reviewed Lab Indication: Hypertension, benign Rheumatoid arthritis : Reviewed Diagnostic Tests Indication: Rheumatoid arthritis BMI 39.0-39.9,adult : Eprescribed prescriptions (G8553) Indication: BMI 39.0-39.9,adult Diabetes mellitus type II, controlled : Follow up in 3 months Indication: Diabetes mellitus type II, controlled Diabetes mellitus type II, controlled : Eprescribed prescriptions (G8553) Indication: Diabetes mellitus type II, controlled Diabetes mellitus type II, controlled : Eprescribed prescriptions (G8553) Indication: Diabetes mellitus type II, controlled Diarrhea : *Abd Pain Red Flags Indication: Diarrhea Diarrhea : Diarrhea instructions Indication: Diarrhea Hypertension, benign : Follow up in 2 weeks Indication: Hypertension, benign Diabetes mellitus type II, controlled : Eprescribed prescriptions (G8553) Indication: Diabetes mellitus type II, controlled Diabetes mellitus type II, controlled : Follow up in 1 month Indication: Diabetes mellitus type II, controlled Depression, acute : Eprescribed prescriptions (G8553) Indication: Depression, acute Diabetes mellitus type II, controlled : Eprescribed prescriptions (G8553) Indication: Diabetes mellitus type II, controlled Knee pain : Knee Injections Indication: Knee pain Diabetes mellitus type II, controlled : Hemoglobin A1c Test *: a1c test Indication: Diabetes mellitus type II, controlled Hypercholesteremia : Eprescribed prescriptions (G8553) Indication: Hypercholesteremia Diabetes mellitus type II, controlled : Eprescribed prescriptions (G8553) Indication: Diabetes mellitus type II, controlled Diabetes mellitus type II, controlled : Eprescribed prescriptions (G8553) Indication: Diabetes mellitus type II, controlled NEED FOR PROPHYLACTIC VACCINATION AND INOCULATION AGAINST INFLUENZA : Flu (Influenza) *: flu shot Indication: NEED FOR PROPHYLACTIC VACCINATION AND INOCULATION AGAINST INFLUENZA Knee pain : Knee Injections Indication: Knee pain NEED FOR PROPHYLACTIC VACCINATION AND INOCULATION AGAINST INFLUENZA : Flu (Influenza) *: flu shot Indication: NEED FOR PROPHYLACTIC VACCINATION AND INOCULATION AGAINST INFLUENZA Anemia : Follow up with DB Indication: Anemia Diabetes mellitus type II, controlled : Diabetes Overview (Living with Diabetes): insulin-dependend diabetes Indication: Diabetes mellitus type II, controlled Diabetes mellitus type II, controlled : Diabetes Overview (Living with Diabetes): type 2 diabetes Indication: Diabetes mellitus type II, controlled Knee pain : Knee Injections Indication: Knee pain Planned Observations Metabolic Panel, Comprehensive (52618)Indication: Rheumatoid arthritis On: 81-Gak-835474:41 Request Comments: Mar 2017 MICROALBUMIN: CREATININE RATIO (64860) AND (37115)Indication: Diabetes mellitus type II, controlled On: 3-Uxy-821858:50 Request VITAMIN B12 AND FOLATES (76908)Indication: Diabetes mellitus type II, controlled On: 2-Nyc-150894:50 Request CALCIFEDIOL (97676)Indication: Diabetes mellitus type II, controlled On: 5-Fjz-356919:50 Request TSH (THYROID STIMULATING HORMONE) (38106)Indication: Hypothyroidism On: 2-Mph-998210:50 Request LIPID PANEL (14423)Indication: Hypercholesteremia On: 0-Vcg-832780:50 Request METABOLIC PANEL, COMPREHENSIVE (18343)Indication: Diabetes mellitus type II, controlled On: 3-Szd-204889:50 Request CBC, PLATELETS & AUT DIFF (65018)Indication: Diabetes mellitus type II, controlled On: 0-Uxa-847267:49 Request IRON (75538)Indication: Anemia On: 71-Fik-730061:05 Request Blood Glucose , Office (21126)Indication: Diabetes mellitus type II, controlled On: :32 Request MICROALBUMIN: CREATININE RATIO (04084) AND (76623)Indication: Diabetes mellitus type II, controlled On: 00-Lqo-013182:06 Request VITAMIN B12 AND FOLATES (21972)Indication: Vitamin D deficiency On: 39-Dwb-233099:00 Request VITAMIN D, 1, 25-DIHYDROXY (84084)Indication: Vitamin D deficiency On: 17-Int-236089:00 Request LIPID PANEL (72563)Indication: Hypercholesteremia On: 06-Wno-847960:00 Request METABOLIC PANEL, COMPREHENSIVE (74078)Indication: Diabetes mellitus type II, controlled On: 05-Emo-388016:00 Request CBC, PLATELETS & AUT DIFF (61147)Indication: Diabetes mellitus type II, controlled On: 99-Plj-992418:59 Request TSH (THYROID STIMULATING HORMONE) (59818)Indication: Hypothyroidism On: :59 Request POTASSIUM SERUM (87098)Indication: Hyperkalemia On: 09-Xgn-172204:59 Request Comments: 2-3 weeks CALCIFIDIOL (88587) VIT D 25Indication: Vitamin D deficiency On: :34 Request TSH (71211)Indication: Hypothyroidism On: :34 Request MICROALBUMIN: CREATININE RATIO (61289) AND (92866)Indication: Diabetes mellitus type II, controlled On: :34 Request URINALYSIS, W/ MICRO (29413)Indication: Diabetes mellitus type II, controlled On: :34 Request TSH (30580)Indication: Hypothyroidism On: :34 Request METABOLIC PANEL, COMPREHENSIVE (43947)Indication: Diabetes mellitus type II, controlled On: :34 Request LIPID PANEL (13668)Indication: Diabetes mellitus type II, controlled On: :34 Request CBC with auto diff (26754)Indication: Diabetes mellitus type II, controlled On: :34 Request CBC with auto diff (77546)Indication: Hypertension, benign On: 56-Otq-979763: Request METABOLIC PANEL, COMPREHENSIVE (49122)Indication: Hypertension, benign On: 96-Qtk-415590:26 Request LIPID PANEL (81920)Indication: Hypertension, benign On: : Request TSH (67718)Indication: Hypothyroidism On: 68-Pck-271153: Request CBC WITH MANUAL DIFF (72840)Indication: Hypertension, benign On: 00-Rri-321805:21 Request METABOLIC PANEL, COMPREHENSIVE (08405)Indication: Hypertension, benign On: 83-Die-833567:21 Request TSH (38753)Indication: Hypothyroidism On: 50-Sgi-796699:21 Request Methymalonic Acid, Serum (08662)Indication: Thrombocytopenia, unspecified On: :48 Request Vitamin B-12 (cyanocobalamin) (45301)Indication: Thrombocytopenia, unspecified On: :48 Request CBC, Platelets & Auto Diff (04035)Indication: Thrombocytopenia, unspecified On: :48 Request Comments: citrate METABOLIC PANEL, COMPREHENSIVE (38425)Indication: Hypertension, benign On: :59 Request CBC WITH MANUAL DIFF (58725)Indication: Hypertension, benign On: 03-Aob-274529:59 Request TSH (22939)Indication: Hypothyroidism On: :29 Request METABOLIC PANEL, COMPREHENSIVE (58097)Indication: Hypertension, benign On: :29 Request Blood Glucose , Office (67457)Indication: Diabetes mellitus type II, controlled On: 53-Kfx-092292:35 Request TSH (74982)Indication: Hypothyroidism On: 48-Uim-652784:19 Request METABOLIC PANEL, COMPREHENSIVE (87650)Indication: Diabetes mellitus type II, controlled On: 70-Coe-179203:19 Request LIPID PANEL (33737)Indication: Diabetes mellitus type II, controlled On: : Request Blood Glucose , Office (29543)Indication: Diabetes mellitus type II, controlled On: 77-Ofx-099274:01 Request TSH (06965)Indication: Thyroid disorder On: :29 Request MICROALBUMIN: CREATININE RATIO (36456) AND (85342)Indication: Diabetes mellitus type II, controlled On: : Request METABOLIC PANEL, COMPREHENSIVE (33069)Indication: Diabetes mellitus type II, controlled On: : Request LIPID PANEL (64457)Indication: Diabetes mellitus type II, controlled On: : Request CBC WITH MANUAL DIFF (77007)Indication: Diabetes mellitus type II, controlled On: : Request CBC WITH MANUAL DIFF (83490)Indication: Diabetes mellitus type II, controlled On: 22-Pwt-774394:52 Request MICROALBUMIN: CREATININE RATIO (19329) AND (32292)Indication: Diabetes mellitus type II, controlled On: 18-Odh-859815:29 Request METABOLIC PANEL, COMPREHENSIVE (69883)Indication: Diabetes mellitus type II, controlled On: :29 Request LIPID PANEL (13672)Indication: Diabetes mellitus type II, controlled On: 66-Mes-989002:29 Request CBC WITH MANUAL DIFF (97521)Indication: Diabetes mellitus type II, controlled On: 26-Jnq-425389:29 Request FERRITIN (27190)Indication: Anemia On: 7-Obr-309909:26 Request CBC with manual diff (31890)Indication: Anemia On: 29-May-20119:12 Request HgA1C , Office (49482)Indication: Diabetes mellitus type II, controlled On: 03-Qsx-172045:04 Request METABOLIC PANEL, COMPREHENSIVE (42626)Indication: Hypercholesteremia On: 69-Fub-990418:15 Request LIPID PANEL (44075)Indication: Hypercholesteremia On: 27-Yvc-822027:15 Request Lipid Panel (98771)Indication: Hypercholesteremia On: 60-Mox-676779:50 Request RPR (RAPID PLASMA REAGIN) (50446)Indication: Neuropathy On: 63-Syg-319007:48 Request TSH (42254)Indication: Thyroid disorder On: 35-Pqr-550005:48 Request HAPTOGLOBIN (51851)Indication: Anemia On: 07-Xzj-947620:46 Request PTT (Activated Partial Thromboplastin Time) (30224)Indication: Anemia On: 10-Xtd-188321:46 Request PT (Prothrobim Time) (45407)Indication: Anemia On: 78-Lfe-121799:46 Request RETICULOCYTE COUNT (53983)Indication: Anemia On: 05-Ehe-614716:46 Request LDH (LD) (LACTATE DEHYDROGENASE) (94679)Indication: Anemia On: :46 Request Methylmalonic acid, serum 78962Mbgmttxfbw: Anemia On: 65-Ttr-915811:46 Request Vitamin B-12 (cyanocobalamin) (25491)Indication: Anemia On: 96-Blc-938986:46 Request Iron Binding Capacity (TIBC) (14165)Indication: Anemia On: 03-Wle-192077:46 Request Iron (38920)Indication: Anemia On: 58-Ctw-965192:46 Request Folic Acid Serum (86057)Indication: Anemia On: 31-Urx-551591:46 Request Ferritin (58601)Indication: Anemia On: 63-Uyv-945768:46 Request DNA ANTIBODY-NATV/DBL ST (11800)Indication: Pain in unspecified joint On: 85-Vlr-147337:46 Request CCP ANTIBODY (46585)Indication: Pain in unspecified joint On: 53-Grx-996938:45 Request SED RATE ERYTHROCYTE (72150)Indication: Pain in unspecified joint On: 69-Mde-048718:45 Request C-REACTIVE PROTEIN (51221)Indication: Pain in unspecified joint On: 32-Uzv-962905:45 Request TSH (12813)Indication: Pain in unspecified joint On: 59-Rej-395021:45 Request RHEUMATOID FACTOR-QUANT (30646)Indication: Pain in unspecified joint On: 72-Ydx-370647:45 Request DOT (ANTINUCLEAR ANTIBODY) (66692)Indication: Pain in unspecified joint On: 29-Xfl-887373:45 Request CBC WITH MANUAL DIFF (59907)Indication: Pain in unspecified joint On: 57-Tgh-359588:45 Request METABOLIC PANEL, COMPREHENSIVE (28360)Indication: Pain in unspecified joint On: 70-Mfm-440787:45 Request Planned Encounters Medical; [facility] Medicare Physical - On: 20-Feb-2018 10:15 [facility] Mayra Goodman CNP, CNP, Mary E Planned Procedures Flu Vaccine (Quadrivalent) On: 30-Jan-2018 Intent 14785Kg: Mayra Goodman CNP Comments: Lot #[id number]/30/2019Site-L dltd, IMDose prefilled syringegiven by: TATYANA HART reviewed and ABN signed Mayra Goodman CNP Flu Vaccine (Quadrivalent) On: 10-Jan-2017 Intent 11844Vh: Mayra oGodman CNP Comments: Lot #[id number]/10/17ite-L dltd, IMDose prefilled syringegiven by:TATYANA Sutton and ABN signed Mayra Goodman CNP Flu Vaccine (Quadrivalent) On: 15-Dec-2015 Intent 74422Zr: Rafael Thomas MD Comments: Lot #[id number]/30/17ite-L dltd, IMDose prefilled syringegiven by:TATYANA Sutton and ABN signed MRI OF CERVICAL SPINE WITHOUT On: 19-Jul-2015 Intent CONTRAST (57217)By: Katelyn Dempsey MD Ultrasound - RenalBy: Roselyn On: 06-Jul-2015 Intent Katelyn SORTO Renal Artery DopplerBy: On: 06-Jul-2015 Intent Katelyn Dempsey MD MRI OF CERVICAL SPINE WITH On: 06-Jul-2015 Intent CONTRAST (08038)By: Katelyn Dempsey MD EMGBy: Katelyn Dempsey MD On: 06-Jul-2015 Intent Nerve ConductionBy: Roselyn On: 06-Jul-2015 Intent Katelyn SORTO Comments: right arm MRI OF BRAIN WITH CONTRAST On: 06-Jul-2015 Intent (84688)By: Katelyn Dempsey MD Kenalog Injection, 10 mgm On: 01-Jun-2015 Intent (J3301)By: Katelyn Dempsey MD EKG ([id number])By: Roselyn SORTO, On: 06-Oct-2014 Intent Katelyn Pedroza Comments: see scanned document of test done to see results reviewed today with patient Nuclear Stress Test/Stress On: 06-Oct-2014 Intent SPECT/AdenosineBy: Katelyn Dempsey MD Ultrasound - PelvisBy: On: 26-Jan-2014 Intent Katelyn Dempsey MD Flu Vaccine (Quadrivalent) On: 26-Jan-2014 Intent [id number]: Katelyn Dempsey MD Comments: Lot #:[id number] Expiration date:mount given:0.5mlRoute: IM Site given:left deltoid Given by: MSmith ADMINISTRATION OF INFLUENZA On: 26-Jan-2014 Intent VIRUS VACCINE (G0008)By: Katelyn Dempsey MD Kenalog Injection, 10 mgm On: 03-Nov-2013 Intent (J3301)By: Katelyn Dempsey MD Kenalog Injection, 10 mgm On: 03-Nov-2013 Intent (J3301)By: Katelyn Dempsey MD Kenalog Injection, 10 mgm On: 03-Nov-2013 Intent (J3301)By: Katelyn Dempsey MD Kenalog Injection, 10 mgm On: 03-Nov-2013 Intent (J3301)By: Katelyn Dempsey MD EKG ([id number])By: Roselyn SORTO, On: 12-May-2013 Intent Katelyn Pedroaz Comments: see scanned document of test done to see results reviewed today with patient ADMINISTRATION OF INFLUENZA On: 11-Feb-2013 Intent VIRUS VACCINE (G0008)By: Dante Comments: Lot #[id number]-[id number] dltd, IMDose prefilled syringegiven by:Tony and NISHI signed Faviola FOOTE FLU VAC, SPLIT, >3 YEARS, On: 11-Feb-2013 Intent INTRAMUSC (17855)By: Faviola Howell LPN Eprescribed prescriptions On: 11-Feb-2013 Intent (G8553)By: Faviola Howell LPN Eprescribed prescriptions On: 12-Nov-2012 Intent (G8553)By: Faviola Howell LPN IMMUNIZ ADMNIN, 1 VAC, On: 29-Aug-2012 Intent SNGL/COMBO (15111)By: Chante Owen LPN [place], [place] ([id number])By: On: 29-Aug-2012 Intent Chante Owen LPN Eprescribed prescriptions On: 13-Aug-2012 Intent (G8553)By: Faviola Howell LPN Eprescribed prescriptions On: 14-May-2012 Intent (G8553)By: Faviola Howell LPN Solu -Medrol Injection, 125 On: 05-Apr-2012 Intent mg (J2930)By: Mayra Goodman CNP, CNP, Mayra George ADMINISTRATION OF INFLUENZA On: 12-Feb-2012 Intent VIRUS VACCINE (G0008)By: HARESH Griffin FLU VAC, SPLIT, >3 YEARS, On: 12-Feb-2012 Intent INTRAMUSC (69325)By: HARESH Griffin PNEUM VAC ADLT/IMUMNOSPR, On: 13-Nov-2011 Intent SBC/INTRM (09260)By: Roselyn Comments: Lot:Exp:[id number]:0.5mlRoute:L arm, IMGiven By:Katelyn SANFORD MD ADMINISTRATION OF On: 13-Nov-2011 Intent PNEUMOCOCCAL VACCINE (G0009)By: Katelyn Dempsey MD Eprescribed prescriptions On: 21-Jul-2010 Intent (G8553)By: Katelyn Dempsey MD MAMMOGRAM, SCREENING, BOTH On: 22-Apr-2010 Intent BREASTS ([id number])By: Katelyn Dempsey MD Radiology - Hand - On: 06-Sep-2009 Intent BilateralBy: Katelyn Dempsey MD Comments: copy to maryam Pedroza Planned Medications INJECTION, METHYLPREDNISOLONE SODIUM SUCCINATE, UP TO 125 MG Ordered: 05-Apr-2012 Pending Mayra Goodman CNP, CNP, Mayra George INJECTION, TRIAMCINOLONE ACETONIDE, NOT OTHERWISE SPECIFIED, 10 MG Ordered: 03-Nov-2013 Pending Katelyn Dempsey MD INJECTION, TRIAMCINOLONE ACETONIDE, NOT OTHERWISE SPECIFIED, 10 MG Ordered: 03-Nov-2013 Pending Katelyn Dempsey MD INJECTION, TRIAMCINOLONE ACETONIDE, NOT OTHERWISE SPECIFIED, 10 MG Ordered: 03-Nov-2013 Pending Katelyn Dempsey MD INJECTION, TRIAMCINOLONE ACETONIDE, NOT OTHERWISE SPECIFIED, 10 MG Ordered: 03-Nov-2013 Pending Katelyn Dempsey MD INJECTION, TRIAMCINOLONE ACETONIDE, NOT OTHERWISE SPECIFIED, 10 MG Ordered: 01-Jun-2015 Pending Katelyn Dempsey MD Instructions Name Dates Details Current nonsmoker (Renamed from Current non-smoker) : How to access health information online Indication: Current nonsmoker (Renamed from Current non-smoker) Current nonsmoker (Renamed from Current non-smoker) : How to access health information online - Detail Indication: Current nonsmoker (Renamed from Current non-smoker) Current nonsmoker (Renamed from Current non-smoker) : Patient Instructions Indication: Current nonsmoker (Renamed from Current non-smoker) BMI 36.0-36.9,adult : How to access health information online Indication: BMI 36.0-36.9,adult BMI 36.0-36.9,adult : How to access health information online - Detail Indication: BMI 36.0-36.9,adult BMI 36.0-36.9,adult : Patient Instructions Indication: BMI 36.0-36.9,adult Diabetes mellitus type II, controlled : How to access health information online Indication: Diabetes mellitus type II, controlled Diabetes mellitus type II, controlled : How to access health information online - Detail Indication: Diabetes mellitus type II, controlled Diabetes mellitus type II, controlled : Patient Instructions Indication: Diabetes mellitus type II, controlled Diabetes mellitus type II, controlled : How to access health information online Indication: Diabetes mellitus type II, controlled Diabetes mellitus type II, controlled : How to access health information online - Detail Indication: Diabetes mellitus type II, controlled Diabetes mellitus type II, controlled : Patient Instructions Indication: Diabetes mellitus type II, controlled BMI 37.0-37.9, adult : How to access health information online Indication: BMI 37.0-37.9, adult BMI 37.0-37.9, adult : How to access health information online - Detail Indication: BMI 37.0-37.9, adult BMI 37.0-37.9, adult : Patient Instructions Indication: BMI 37.0-37.9, adult Diabetes mellitus type II, controlled : How to access health information online - Detail Indication: Diabetes mellitus type II, controlled Diabetes mellitus type II, controlled : How to access health information online Indication: Diabetes mellitus type II, controlled Diabetes mellitus type II, controlled : Patient Instructions Indication: Diabetes mellitus type II, controlled Diabetes mellitus type II, controlled : DISCONTINUED - MICROALBUMIN: CREATININE RATIO ([id number]) AND ([id number]) Indication: Diabetes mellitus type II, controlled Iron deficiency anemia : How to access health information online Indication: Iron deficiency anemia Iron deficiency anemia : How to access health information online - Detail Indication: Iron deficiency anemia Iron deficiency anemia : Patient Instructions Indication: Iron deficiency anemia Diabetes mellitus type II, controlled : How to access health information online Indication: Diabetes mellitus type II, controlled Diabetes mellitus type II, controlled : How to access health information online - Detail Indication: Diabetes mellitus type II, controlled Diabetes mellitus type II, controlled : Patient Instructions Indication: Diabetes mellitus type II, controlled BMI 39.0-39.9,adult : How to access health information online Indication: BMI 39.0-39.9,adult BMI 39.0-39.9,adult : How to access health information online - Detail Indication: BMI 39.0-39.9,adult BMI 39.0-39.9,adult : Patient Instructions Indication: BMI 39.0-39.9,adult Diabetes mellitus type II, controlled : How to access health information online Indication: Diabetes mellitus type II, controlled Diabetes mellitus type II, controlled : How to access health information online - Detail Indication: Diabetes mellitus type II, controlled Diabetes mellitus type II, controlled : Patient Instructions Indication: Diabetes mellitus type II, controlled Diabetes mellitus type II, controlled : How to access health information online Indication: Diabetes mellitus type II, controlled Diabetes mellitus type II, controlled : How to access health information online - Detail Indication: Diabetes mellitus type II, controlled Diabetes mellitus type II, controlled : Patient Instructions Indication: Diabetes mellitus type II, controlled Diabetes mellitus type II, controlled : How to access health information online Indication: Diabetes mellitus type II, controlled Diabetes mellitus type II, controlled : How to access health information online - Detail Indication: Diabetes mellitus type II, controlled Diabetes mellitus type II, controlled : Patient Instructions Indication: Diabetes mellitus type II, controlled Depression, acute : How to access health information online Indication: Depression, acute Depression, acute : How to access health information online - Detail Indication: Depression, acute Depression, acute : Patient Instructions Indication: Depression, acute Diabetes mellitus type II, controlled : How to access health information online Indication: Diabetes mellitus type II, controlled Diabetes mellitus type II, controlled : How to access health information online - Detail Indication: Diabetes mellitus type II, controlled Diabetes mellitus type II, controlled : Patient Instructions Indication: Diabetes mellitus type II, controlled Tobacco abuse, in remission (Renamed from Tobacco dependence in remission) : How to access health information online Indication: Tobacco abuse, in remission (Renamed from Tobacco dependence in remission) Tobacco abuse, in remission (Renamed from Tobacco dependence in remission) : How to access health information online - Detail Indication: Tobacco abuse, in remission (Renamed from Tobacco dependence in remission) Tobacco abuse, in remission (Renamed from Tobacco dependence in remission) : Patient Instructions Indication: Tobacco abuse, in remission (Renamed from Tobacco dependence in remission) Knee pain : How to access health information online Indication: Knee pain Knee pain : How to access health information online - Detail Indication: Knee pain Knee pain : Patient Instructions Indication: Knee pain Hypercholesteremia : How to access health information online Indication: Hypercholesteremia Hypercholesteremia : How to access health information online - Detail Indication: Hypercholesteremia Hypercholesteremia : Patient Instructions Indication: Hypercholesteremia Encephalopathy : How to access health information online Indication: Encephalopathy Encephalopathy : How to access health information online - Detail Indication: Encephalopathy Encephalopathy : Patient Instructions Indication: Encephalopathy Diabetes mellitus type II, controlled : How to access health information online Indication: Diabetes mellitus type II, controlled Diabetes mellitus type II, controlled : How to access health information online - Detail Indication: Diabetes mellitus type II, controlled Diabetes mellitus type II, controlled : Patient Instructions Indication: Diabetes mellitus type II, controlled Diabetes mellitus type II, controlled : How to access health information online Indication: Diabetes mellitus type II, controlled Diabetes mellitus type II, controlled : How to access health information online - Detail Indication: Diabetes mellitus type II, controlled Diabetes mellitus type II, controlled : Patient Instructions Indication: Diabetes mellitus type II, controlled NEED FOR PROPHYLACTIC VACCINATION AND INOCULATION AGAINST INFLUENZA : Patient Instructions Indication: NEED FOR PROPHYLACTIC VACCINATION AND INOCULATION AGAINST INFLUENZA Diabetes mellitus type II, controlled : Patient Instructions Indication: Diabetes mellitus type II, controlled Diabetes mellitus type II, controlled : Patient Instructions Indication: Diabetes mellitus type II, controlled Diabetes mellitus type 2, uncontrolled, without complications : Patient Instructions Indication: Diabetes mellitus type 2, uncontrolled, without complications Diabetes mellitus type 2, uncontrolled, without complications : Patient Instructions Indication: Diabetes mellitus type 2, uncontrolled, without complications Malnutrition : Patient Instructions Indication: Malnutrition Diabetes mellitus type II, controlled : Patient Instructions Indication: Diabetes mellitus type II, controlled Diabetes mellitus type II, controlled : Patient Instructions Indication: Diabetes mellitus type II, controlled Diabetes mellitus type II, controlled : Patient Instructions Indication: Diabetes mellitus type II, controlled Encounters Office Visit On: 30-Jan-2018 10:36 Encounter Reason: Forms - The patient presents to the office to be evaluate for scooter/wheelchair (see scanned in form filled out). Note for Forms: already had evaluation done by PT, just need PCP signatureDebility pr End: 30-Jan-2018 11:32 esents in [facility]. Sees Dr. Child recently treated by Dr. Robison Diagnosis: Current nonsmoker (Renamed from Current non-smoker), BMI 35.0-35.9,adult, Need for prophylactic vaccination and inoculation against influenza (Renamed from Need for immunization against influenza), Debilitated, Charcot foot due to diabetes mellitus, Muscle weakness of extremity [facility] Office Visit On: 20-Nov-2017 10:57 Encounter Reason: Follow up for chronic medical issues - The patient feels well with minor complaints, has good energy level and is sleeping well. Patient has been compliant with instructions. Current medication use: no End: 20-Nov-2017 11:46 side effects and compliant with dosing regimen. Patient sleeps 6 hours per night. Nutrition: balanced diet. The medical issues the patient is following up for include blood sugar issues and cardiac issu es. fasting blood sugars : (130-249) and evening sugars : (same as fasting)., [ADDITIONAL REASON] Back Pain - Note for Back pain: new over last 3 weeks, rt side was told to discuss with me by Dr. Marina went across back and down left leg Encounter Diagnosis: Diabetes mellitus type II, controlled, BMI 36.0-36.9,adult, Current nonsmoker (Renamed from Current non-smoker), Rheumatoid arthritis, Back pain, lumbosacral, Charcot foot due to diabetes mellitus [facility] Office Visit On: 21-Aug-2017 10:52 Encounter Reason: Follow up tests - Diagnostic tests include other (labs)., [ADDITIONAL REASON] Follow up for chronic medical issues - The patient feels well with minor complai End: 21-Aug-2017 11:55 nts and is sleeping well (wants to sleep a lot). Patient has been compliant with instructions. Current medication use: no side effects and compliant with dosing regimen. Patient sleeps 6 hours per night . Nutrition: balanced diet. The medical issues the patient is following up for include blood sugar issues and cardiac issues. Encounter Diagnosis: Diabetes mellitus type II, controlled, Current nonsmoker (Renamed from Current non-smoker), Hypercholesteremia, BMI 37.0-37.9, adult, Rheumatoid arthritis, Charcot foot due to diabetes mellitus, Ulcer of foot, Daytime somnolence, Vitamin B12 deficiency, Vitamin D deficiency [facility] Office Visit On: 27-Apr-2017 9:34 Encounter Reason: Follow up for chronic medical issues - The patient feels well with minor complaints (aches and pains, ringing in the ears.) and is sleeping well. Patient has been compliant with instructions. Current me End: 27-Apr-2017 10:18 dication use: no side effects and compliant with dosing regimen. Patient sleeps 6 hours per night. Nutrition: balanced diet. The medical issues the patient is following up for include blood sugar issues and cardiac issues.Encounter Diagnosis: Current nonsmoker (Renamed from Current non-smoker), Diabetes mellitus type II, controlled, Allergic rhinitis, mild, Rheumatoid arthritis, BMI 37.0-37.9, adult, Status post amputation of lesser toe, right, Fibromyalgia, Hypertension, Wheelchair bound , Vitamin D deficiency, Debilitated [facility] Office Visit On: 19-Apr-2017 9:58 Encounter Reason: Injections - The medication the patient is here to receive is other (right knee 1 cc kenalog 2 cc marcaine).Encounter Diagnosis: BMI 37.0- 37.9, adult, Current nonsmoker (Renamed from Current non-smoker), Knee pain (719.46), End: 19-Apr-2017 12:13 Rheumatoid arthritis [facility] Office Visit On: 10-Jan-2017 10:36 Encounter Reason: Follow up for chronic medical issues - The patient feels well with minor complaints (aches and pains), has decreased energy level and is sleeping well. Patient has been compliant with instructions. Curr End: 10-Jan-2017 11:43 ent medication use: no side effects and compliant with dosing regimen. Patient sleeps 6 hours per night. Nutrition: balanced diet. The medical issues the patient is following up for include blood sugar issues and cardiac issues., [ADDITIONAL REASON] Toe infection - Rt toe infection seeing Dr. Child q 2 weeks , [ADDITIONAL REASON] Follow up for diabetes/glucose intolerance - Note for Follow up for diabetes/glucose intolerance: Blood sugars in am high Encounter Diagnosis: NEED FOR PROPHYLACTIC VACCINATION AND INOCULATION AGAINST INFLUENZA (V04.81), Diabetes mellitus type II, controlled, BMI 37.0-37.9, adult, Allergic rhinitis, mild, Rheumatoid arthritis, Malnourished [facility] Office Visit On: 06-Nov-2016 12:43 Encounter Reason: Transition into care - The patient is transitioning into care from a hospital and a summary of care was reviewed. Note for Transition into care: Was admitted to [facility] on Oct 28, 2016 with weakness un End: 06-Nov-2016 14:22 able to get up and then felt panic then taken to hospital had hypnatremia secondary to hyperglycemia, hypertensive urgency, elevated WBC of 15.20 and hmoglobin 11.8, Creat 1.0 , sodum was 129, Glucose w as 298, later hemoglobin down to 9.9 , iron 8. Put on cipro this am for staff infection in toe. Poor healing toe rt amputation. Saw Dr. Child with staff infection. Also with oral ulcers, [ADDITIONAL REASON] Follow up hospital - Reason for ER visit: note: (anemia). The patient feels well with minor complaints (tired). Patient has been compliant with instructions. Current medication use: no side effects. Hospital procedures performed were other (iron infusion). The hospital results of the chest X-ray and Lab abnormal (wbc 15.2hg 9.9hct 31.5glucose 298sodium 129) were Note for Follow u p hospital: Iron 9 Unable to take po iron, has been on Arava Encounter Diagnosis: Toe amputation status, Iron deficiency anemia, Current nonsmoker (Renamed from Current non-smoker), BMI 37.0-37.9, adult, Diabetes mellitus type II, controlled, Rheumatoid arthritis, Recurrent oral ulcers, Malnutrition (263.9) [facility] Annotation/Addendum On: 03-Nov-2016 13:13 Encounter Diagnosis: Unspecified Diagnosis End: 03-Nov-2016 15:27 [facility] Office Visit On: 04-Oct-2016 10:38 Encounter Reason: Follow up for chronic medical issues - The patient feels well with minor complaints (stress), has good energy level and is sleeping well. Current medication use: no side effects and compliant with dosin End: 04-Oct-2016 16:07 g regimen. Patient sleeps 6 hours per night. Nutrition: balanced diet. The medical issues the patient is following up for include blood sugar issues and cardiac issues., [ADDITIONAL REASON] Memory impairment - Note for Memory impairment: has worsening memory loss Encounter Diagnosis: BMI 38.0-38.9,adult, Diabetes mellitus type II, controlled, Current nonsmoker (Renamed from Current non-smoker), Rheumatoid arthritis, Abnormal albumin, Status post amputation of lesser toe, right [facility] Office Visit On: 03-Jul-2016 7:53 Encounter Reason: Follow up for chronic medical issues - The patient feels well with minor complaints, has good energy level and is sleeping well. Current medication use: no side effects and compliant with dosing regimen End: 03-Jul-2016 10:48 . Patient sleeps 6 hours per night. Nutrition: balanced diet.Encounter Diagnosis: Diabetes mellitus type II, controlled, BMI 37.0-37.9, adult, Nonsmoker, Charcot foot due to diabetes mellitus, Toe amputation status, Rheumatoid arthritis, Hypertension, benign, Coronary artery disease, Mitral valve stenosis, Hypercholesteremia, Dental caries, Depression, acute, Diarrhea [facility] Office Visit On: 28-Mar-2016 10:42 Encounter Reason: Follow up for chronic medical issues - The patient feels well with minor complaints, has good energy level and is sleeping well. Current medication use: no side effects and compliant with dosing regimen End: 28-Mar-2016 17:06 . Patient sleeps 6 hours per night. Nutrition: balanced diet., [ADDITIONAL REASON] Follow up tests - Date: (02/08/16). Encounter Diagnosis: Diabetes mellitus type II, controlled, BMI 39.0-39.9,adult, Coronary artery disease, Depression, acute, Blood in stool, Rheumatoid arthritis, Colon polyps, Hypercholesteremia, History of stroke, Hypothyroidism, Encephalopathy, Vitamin D deficiency, Stenosis of cervical spine with myelopathy, PVD (peripheral vascular disease), Hypertension, benign, Seizure, Mitral valve stenosis, Iron deficiency anemia [facility] Phone Encounter On: 16-Dec-2015 8:10 Encounter Diagnosis: Diabetes mellitus type II, controlled End: 05-Apr-2016 11:59 [facility] Office Visit On: 15-Dec-2015 9:31 Encounter Reason: Follow up for chronic medical issues - The patient does not feel well, has decreased energy level and is sleeping poorly. Patient has been compliant with instructions. Current medication use: no side ef End: 15-Dec-2015 17:18 fects, compliant with dosing regimen and considered effective by patient. Patient sleeps 6 hours per night. Impact of disease: emotional impact-moderate. Nutrition: balanced diet and supplemental vitami ns. The medical issues the patient is following up for include blood sugar issues, cardiac issues, depression, high blood pressure, high cholesterol, hypothyroid, osteoarthritis, other (overweight, hx. seziure, neuropathy, RA, vitamin d def. ) and peripheral vascular disease., [ADDITIONAL REASON] Follow up tests - Date: (12.01.15). Encounter Diagnosis: Diabetes mellitus type II, controlled, NEED FOR PROPHYLACTIC VACCINATION AND INOCULATION AGAINST INFLUENZA (V04.81), BMI 39.0-39.9,adult, Current nonsmoker (Renamed from Current non-smoker), Hypertension, benign, Chronic Kidney Disease, Stage III (Moderate)(585.3), Peripheral neuropathy, Ulcer of foot, PVD (peripheral vascular disease), Serum albumin decreased, Insomnia, Colon polyps, Encephalopathy, Coronary artery disease, Hypercholesteremia, Hypothyroidism, History of stroke, Depression, acute, Vitamin D deficiency, Rheumatoid arthritis, Blood in stool, Anemia, Alfalfa's, Anemia [facility] Office Visit On: 28-Oct-2015 10:38 Encounter Reason: Follow up acute care visit - The patient does not feel well. Patient has been compliant with instructions. Current medication use: experiencing side effects (diarrhea). Patient sleeps 8 hours per night. Nutrition: balanced diet. End: 28-Oct-2015 16:46 Encounter Diagnosis: Diabetes mellitus type II, controlled, Current nonsmoker (Renamed from Current non-smoker), Chronic Kidney Disease, Stage III (Moderate)(585.3), Hypertension, benign [facility] Office Visit On: 13-Oct-2015 9:18 Encounter Reason: Diabetes Type II, Follow Up - Current treatment includes metformin.Encounter Diagnosis: Diabetes mellitus type II, controlled, Ulcer of foot, Chronic Kidney Disease, Stage III (Moderate)(585.3), Hypertension, benign, Diarrhea End: 13-Oct-2015 17:08 [facility] Office Visit On: 08-Sep-2015 9:42 Encounter Reason: Follow up acute care visit - The medical issues the patient is following up for include other (sent to Dr chong -stenosis c spine, sees Dr Mcfadden for pain mgt per last note and is working on weaning the neurontin. ). End: 08-Sep-2015 14:58 Encounter Diagnosis: Stenosis of cervical spine with myelopathy, Chronic pain, Depression, acute, Current nonsmoker (Renamed from Current non-smoker), Diarrhea, Diabetes mellitus type II, controlled, Serum albumin decreased, Hyperkalemia, Fatigue due to treatment, Hypertension, benign, History of stroke, Chronic Kidney Disease, Stage III (Moderate)(585.3), Hypercholesteremia, Vitamin D deficiency, Hypothyroidism, Allergic rhinitis, mild, Arthritis, rheumatic, acute or subacute, Coronary artery disease [facility] Phone Encounter On: 03-Sep-2015 7:52 [facility] End: 03-Sep-2015 7:53 Phone Encounter On: 20-Aug-2015 14:30 Encounter Diagnosis: Unspecified Diagnosis End: 20-Aug-2015 14:34 [facility] Office Visit On: 23-Jul-2015 11:00 Encounter Reason: Follow up acute care visit - Patient has been compliant with instructions. Current medication use: experiencing side effects (experienced s/e from weaining down of the [place]).Encounter Diagnosis: End: 23-Jul-2015 12:01 Diabetes mellitus type II, controlled, Serum albumin decreased, Hyperkalemia, Fatigue due to treatment, Hypertension, benign, Chronic pain, History of stroke, Chronic Kidney Disease, Stage III (Moderate)(585.3), Stenosis of cervical spine with myelopathy [facility] Phone Encounter On: 19-Jul-2015 15:05 Encounter Diagnosis: Numbness on right side End: 19-Jul-2015 15:28 [facility] Refill Request On: 07-Jul-2015 10:18 Encounter Diagnosis: Diabetes mellitus type II, controlled End: 07-Jul-2015 10:22 [facility] Office Visit On: 06-Jul-2015 8:48 Encounter Reason: Follow up for chronic medical issues - The patient feels well with minor complaints, has decreased energy level and is sleeping poorly. Patient has been compliant with instructions. Current medication u End: 08-Jul-2015 23:05 se: no side effects, compliant with dosing regimen and considered effective by patient. Patient sleeps 5 hours per night. Impact of disease: emotional impact-moderate. Nutrition: balanced diet and suppl emental vitamins. The medical issues the patient is following up for include blood sugar issues, cardiac issues, depression, high blood pressure, high cholesterol, hypothyroid, osteoarthritis, other (ov erweight, hx. seziure, neuropathy, RA, vitamin d def. ) and peripheral vascular disease.Encounter Diagnosis: Diabetes mellitus type II, controlled, Tobacco abuse, in remission (Renamed from Tobacco dependence in remission), Hypertension, benign, Numbness on right side, Fatigue due to treatment, Depression, acute, Serum albumin decreased, Abnormal laboratory test, Vitamin D deficiency [facility] Office Visit On: 01-Jun-2015 10:51 Encounter Reason: Injections - The medication the patient is here to receive is other (left knee 2cc marcaine 1cc kenalog ).Encounter Diagnosis: Knee pain (719.46), Tobacco abuse, in remission (Renamed from Tobacco dependence in remission), Seizure End: 01-Jun-2015 11:45 [facility] Phone Encounter On: 21-May-2015 11:58 Encounter Diagnosis: Unspecified Diagnosis End: 21-May-2015 12:02 [facility] Refill Request On: 16-Apr-2015 16:23 Encounter Diagnosis: Hypertension, benign End: 16-Apr-2015 16:25 [facility] Office Visit On: 06-Apr-2015 14:48 Encounter Reason: Follow up tests - Date: (03/30/15 blood work)., [ADDITIONAL REASON] Follow up for chronic medical issues - The patient feels well with minor complai End: 06-Apr-2015 17:55 nts, has decreased energy level (slowly getting better) and is sleeping poorly. Patient has been compliant with instructions. Current medication use: no side effects, compliant with dosing regimen and c onsidered effective by patient. Patient sleeps 3 hours per night. Impact of disease: emotional impact-mild. Nutrition: balanced diet and supplemental vitamins. The medical issues the patient is followin g up for include blood sugar issues, cardiac issues, depression, high blood pressure, high cholesterol, hypothyroid, other (neuropathy, RA, chronic pain, obesity, insomnia ) and peripheral vascular disease. Encounter Diagnosis: Diabetes mellitus type II, controlled, Hypothyroidism, Coronary artery disease, Hypercholesteremia, Chronic pain, Colon polyps, Insomnia, Mental status change, Obesity, PVD (peripheral vascular disease), Peripheral neuropathy, Allergic rhinitis, mild , Current nonsmoker (Renamed from Current non-smoker), Encephalopathy, Seizure, Arthritis, rheumatic, acute or subacute, Arthritis, Vitamin D deficiency, Hypertension, benign [facility] Office Visit On: 01-Apr-2015 13:50 Encounter Reason: Follow up hospital - Reason for ER visit: note: (narcotic overdose, seziures ). The patient feels well with minor complaints and has decreased energy level. Patient has been compliant with instructions. End: 01-Apr-2015 15:48 Patient sleeps 7 hours per night. Impact of disease: emotional impact-moderate. Nutrition: balanced diet and supplemental vitamins.Encounter Diagnosis: Encephalopathy, Current nonsmoker (Renamed from Current non-smoker), Seizure [facility] Historical Summary On: 31-Mar-2015 12:46 Encounter Diagnosis: Vitamin D deficiency, Mental status change, Hypertension, benign, Diabetes mellitus type II, controlled, Encephalopathy End: 31-Mar-2015 13:15 [facility] Office Visit On: 06-Oct-2014 9:08 Encounter Reason: Follow up for chronic medical issues - The patient feels well with minor complaints and has decreased energy level. Patient has been compliant with instructions. Current medication use: no side effects, End: 06-Oct-2014 9:37 compliant with dosing regimen and considered effective by patient. Patient sleeps 6 hours per night. Impact of disease: emotional impact-mild. Nutrition: balanced diet and supplemental vitamins. The ky dical issues the patient is following up for include blood sugar issues, cardiac issues, depression, high blood pressure, high cholesterol, hypothyroid, other (neuropathy, RA, chronic pain, obesity, insomnia ) and peripheral vascular disease., [ADDITIONAL REASON] Annual Medicare Exam - The patient had reviewed and updated the family history, medication/s, past medical history and social history. Yes the patient did have a mini mental status exam done today. The activities of daily living the patient needs help with are housework, laundry and meal preparation. The patient has driven in past 6 months, fallen in the past 6 months (she was diz zy and got up and make bed and lean over adn then up and fell backwards. hit night stand with buttocks. this was month ago. she knows now cymbalta and ambien together makes dizzy. only using cymblata al one and better.), gotten lost and put handrails in bathroom, but the patient has not had fecal incontinence, had urinary incontinence, missed or ran out of medications to soon, has a medalert necklace o r bracelet or put area rugs through house. The patient has completed the following preventative measures: PAP smear (hysterectomy ), mammography (approx. 2002 and refuses to have anymore done ) and colo noscopy (2007 ). The patient does have durable power of attorney recruiter and living will. The patient has noticed nothing from the geriatic depression scale. Other providers contributing to the patient's care a re gastrologist ( @[facility] in [facility] for colonscopy ), water resource manager (Dr. Francisco ) and other: (Carry Out Clerk And Shelf Stocker: Dr. Child , Pain Management: Dr. Mcfadden ). 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 Patient has been compliant with instructions. Current medication use: no side effects, End: 09-Jun-2014 10:30 compliant with dosing regimen and considered effective by patient. Patient sleeps 6 hours per night. Impact of disease: emotional impact-mild. Nutrition: balanced diet and supplemental vitamins. The me dical issues the patient is following up for include blood sugar issues, cardiac issues, depression, high blood pressure, high cholesterol, hypothyroid, other (neuropathy, RA, chronic pain, obesity, insomnia ) and peripheral vascular disease. Encounter Diagnosis: Diabetes, Type II, controlled (250.00), Rhuematic Arthritis (714.0), Hypertension,benign(401.1), Hypercholesteremia (272.0), NEUROPATHY, IDIOPATHIC PERIPHERAL NOS (356.9), Peripheral vascular disease (443.9), arthritis,unspecified (716.90), Coronary artery disease (414.00), Insomnia, Hypothyroidism(244.9), Colon polyps, Nausea, Chronic pain, Obesity (278.00), Abdominal pain, bilateral lower quadrant, Allergic rhinitis, mild, Annual Medicare Physical (V70.0) [facility] Phone Encounter On: 30-Jan-2014 16:57 Encounter Diagnosis: Unspecified Diagnosis End: 30-Jan-2014 17:00 [facility] Office Visit On: 26-Jan-2014 9:26 Encounter Reason: Follow up for chronic medical issues - The patient feels well with minor complaints and has decreased energy level. Patient has been compliant with instructions. Current medication use: no side effects, End: 26-Jan-2014 10:14 compliant with dosing regimen and considered effective by patient. Patient sleeps 8 hours per night. Impact of disease: emotional impact-mild. Nutrition: balanced diet and supplemental vitamins. The ky dical issues the patient is following up for include blood sugar issues, cardiac issues, depression, high blood pressure, high cholesterol, hypothyroid, other (neuropathy, RA, chronic pain, obesity, insomnia ) and peripheral vascular disease. 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 Patient has been compliant with instructions. Current medication use: no side effects, compliant wit End: 03-Nov-2013 10:55 h dosing regimen and considered effective by patient. Patient sleeps 6 hours per night. Impact of disease: emotional impact-moderate. Nutrition: balanced diet and supplemental vitamins. The medical issu es the patient is following up for include blood sugar issues, cardiac issues, depression, high blood pressure, high cholesterol, osteoporosis/osteopenia, other (RA, thrombocytopenia, chronic pain, neuropathy ) and peripheral vascular disease. 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 Yes the patient did have a mini mental status exam done today. The End: 04-Aug-2013 10:33 activities of daily living the patient needs help with are none. The patient has driven in past 6 months and put handrails in bathroom, but the patient has not had fecal incontinence, had urinary incont inence, missed or ran out of medications to soon, fallen in the past 6 months, gotten lost (only when she is in unfamiliar territory ), has a medalert necklace or bracelet or put area rugs through house . The patient has completed the following preventative measures: PAP smear (hysterectomy ), mammography (approx. 2002 and refuses to have anymore done ) and colonoscopy (2007 ). The patient does have du rable power of attorney recruiter and living will. The patient has noticed nothing from the geriatic depression scale. Other providers contributing to the patient's care are gastrologist ( @[facility] in [facility] for colonscopy ), water resource manager (Dr. Francisco ) and other: (Carry Out Clerk And Shelf Stocker: Dr. Child , Pain Management: Dr. Mcfadden )., [ADDITIONAL REASON] Follow up for chronic medical issues - The patient feels well with no complaints . Patient has been compliant with instructions. Current medication use: no side effects. Patient sleeps 8 hours per night. Nutrition: balanced diet. The medical issues the patient is following up for in clude All identified problems below. Note for Follow up for chronic medical issues: this winter have to increase arava because bad. it did help and recent labs good on this dose just saw Dr. francisco. shoulder injection done recently and good. 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 Patient has been compliant with instructions. Current medication use End: 12-May-2013 10:47 : no side effects, compliant with dosing regimen and considered effective by patient. Patient sleeps 8 hours per night. Impact of disease: emotional impact-moderate. Nutrition: balanced diet and supplem ental vitamins. The medical issues the patient is following up for include blood sugar issues, cardiac issues, depression, high blood pressure, high cholesterol, hypothyroid, other (RA, anemia, obesity ) and peripheral vascular disease. 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), Depression (311), arthritis,unspecified (716.90), Coronary artery disease (414.00), Hypercholesteremia (272.0), Anemia (285.9), THROMBOCYTOPENIA, UNSPECIFIED (287.5), NEUROPATHY, IDIOPATHIC PERIPHERAL NOS (356.9), Peripheral vascular disease (443.9), Obesity (278.00), Chronic pain [facility] Refill Request On: 24-Feb-2013 7:28 Encounter Diagnosis: NEUROPATHY, IDIOPATHIC PERIPHERAL NOS (356.9) End: 24-Feb-2013 7:30 [facility] Office Visit On: 11-Feb-2013 8:43 Encounter Reason: Follow up tests - Date: (02.07.13)., [ADDITIONAL REASON] Follow up for chronic medical issues - The patient feels well with minor complai End: 11-Feb-2013 9:52 nts and has decreased energy level. Current medication use: no side effects. Patient sleeps 9 (8/10 - using aide prn) hours per night. Impact of disease: emotional impact-mild. Nutrition: balanced diet and supplemental vitamins. The medical issues the patient is following up for include blood sugar issues, cardiac issues, depression, fibromyalgia, high blood pressure, high cholesterol, hypothyroid, ot her (neuropathy, anemia, RA, obesity, thyroid disorder ) and peripheral vascular disease. 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 Current medication use: no side effects. Patient sleeps 9 (8/10) hours per night. Impa End: 12-Nov-2012 14:01 ct of disease: emotional impact-mild. Nutrition: balanced diet and supplemental vitamins. 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), NEUROPATHY, IDIOPATHIC PERIPHERAL NOS (356.9), Knee pain (719.46), Tremors (781.0), Peripheral vascular disease (443.9), Disordered sleep (780.50), Coronary artery disease (414.00), Diabetes, Type II, controlled (250.00) [facility] Office Visit On: 05-Nov-2012 10:03 Encounter Reason: Transition into care - The patient most recently received care from a hospital.Encounter Diagnosis: Diabetes type II,uncontrolled, no comp (250.02), Cellulitis (682.9), Malnutrition (263.9) End: 05-Nov-2012 11:30 [facility] Prescription Refill On: 29-Oct-2012 14:29 Encounter Diagnosis: arthritis,unspecified (716.90) End: 29-Oct-2012 14:38 [facility] Phone Encounter On: 10-Oct-2012 12:13 Encounter Diagnosis: Diabetes type II,uncontrolled, no comp (250.02) End: 10-Oct-2012 12:17 [facility] Office Visit On: 09-Oct-2012 9:08 Encounter Reason: Transition into care - The patient most recently received care from a hospital., [ADDITIONAL REASON] Follow up hospital - Reason for ER visit: note: (leg ulcer). The patient feels w End: 09-Oct-2012 12:27 ell with minor complaints, has good energy level and is sleeping well. Patient has been compliant with instructions. Current medication use: no side effects and compliant with dosing regimen. Patient sl eeps 6 hours per night. Nutrition: balanced diet. Encounter Diagnosis: Malnutrition (263.9), Leg ulcer 707.10 (Renamed from Leg/Lower Extremity (707.10)), Diabetes type II,uncontrolled, no comp (250.02), Anemia (285.9) [facility] Phone Encounter On: 01-Oct-2012 12:21 Encounter Diagnosis: Unspecified Diagnosis End: 01-Oct-2012 12:27 [facility] Annotation/Addendum On: 29-Aug-2012 15:06 Encounter Diagnosis: SHINGLES,NEED FOR PROPHYLACTIC VACCINATION AND INOCULATION AGAINST (V05.8) End: 29-Aug-2012 15:08 [facility] Office Visit On: 13-Aug-2012 12:33 Encounter Reason: Follow up for chronic medical issues - The patient feels well with minor complaints and has decreased energy level. Current medication use: no side effects. Patient sleeps 9 (8/10) hours per night. Impa End: 13-Aug-2012 21:23 ct of disease: emotional impact-mild. Nutrition: balanced diet and supplemental vitamins. 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), Obesity (278.00), NEUROPATHY, IDIOPATHIC PERIPHERAL NOS (356.9), Depression (311), Knee pain (719.46), Hypertension,benign(401.1), Tremors (781.0) , Coronary artery disease (414.00), 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 Patient has been compliant with instruct End: 14-May-2012 11:29 ions. Current medication use: compliant with dosing regimen and considered effective by patient. Patient sleeps 7 hours per night. Impact of disease: emotional impact-mild. Nutrition: balanced diet and supplemental vitamins. 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), Depression (311), NEUROPATHY, IDIOPATHIC PERIPHERAL NOS (356.9), arthritis,unspecified (716.90), Anemia (285.9), Itching (698.9), Peripheral vascular disease (443.9), 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 The symptoms have been occurring in an increasing pattern. The symptoms are described as moderate in severity. There is involvem End: 05-Apr-2012 15:34 ent of the left lower extremity. There are no relieving factors. The symptoms have been associated with foot/leg ulcers (wound center is tx), while the symptoms have not been associated with dizziness, fatigue, pallor of extremity, cough, fever or chills.Encounter Diagnosis: Itching (698.9) [facility] Office Visit On: 12-Feb-2012 10:41 Encounter Reason: Follow up for chronic medical issues - The patient feels well with minor complaints and has decreased energy level. Patient has been compliant with instructions. Current medication use: no side effects, End: 12-Feb-2012 11:30 compliant with dosing regimen and considered effective by patient. Patient sleeps 7 hours per night. Impact of disease: emotional impact-mild. Nutrition: balanced diet and supplemental vitamins. 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 Patient has been compliant with instructions. Current medication use: no side effects, End: 14-Nov-2011 7:47 compliant with dosing regimen and considered effective by patient. Patient sleeps 7 hours per night. Impact of disease: emotional impact-mild. Nutrition: balanced diet and supplemental vitamins. The ky dical issues the patient is following up for include blood sugar issues, cardiac issues, depression (anxiety ), high blood pressure, high cholesterol, hypothyroid, other (RA, anemia, Obesity. periph neuropathy ) and peripheral vascular disease. 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 Patient has been compliant with instructions. Current medication use: no side effects. Patient sleeps 8 (only once in End: 17-Aug-2011 11:34 night to get up.) hours per night. Impact of disease: no overall impact and no emotional impact. Nutrition: balanced diet and inadequate caloric intake. The medical issues the patient is following up for include All identified problems below. 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) End: 24-Jul-2011 6:23 [facility] Phone Encounter On: 29-May-2011 17:26 Encounter Diagnosis: Anemia (285.9) End: 29-May-2011 17:28 [facility] Phone Encounter On: 29-May-2011 9:08 Encounter Diagnosis: Anemia (285.9) End: 29-May-2011 9:15 [facility] Office Visit On: 28-Apr-2011 10:33 Encounter Diagnosis: NEUROPATHY, IDIOPATHIC PERIPHERAL NOS (356.9), Diabetes, Type II, controlled (250.00) End: 28-Apr-2011 11:33 [facility] Office Visit On: 21-Apr-2011 11:24 Encounter Reason: Follow up for chronic medical issues - The patient feels well with minor complaints and has decreased energy level. Patient has been compliant with instructions. Current medication use: experiencing gabriella End: 25-Apr-2011 8:10 e effects (victoza made sick ). Patient sleeps 7 hours per night. Impact of disease: emotional impact-mild. Nutrition: balanced diet and supplemental vitamins. The medical issues the patient is followin g up for include blood sugar issues, cardiac issues, depression (anxiety ), high blood pressure, high cholesterol, osteoarthritis, other (obesity, anemia, RA ) and peripheral vascular disease.Encounter Diagnosis: ARTHRALGIAS 719.40, Diabetes, Type II, controlled (250.00), Hypertension,benign(401.1), Coronary artery disease (414.00), Obesity (278.00) [facility] Historical Summary On: 06-Apr-2011 20:16 [facility] End: 06-Apr-2011 20:17 Office Visit On: 03-Feb-2011 8:06 Encounter Reason: Follow up acute care visit - The patient feels the same. Patient has been compliant with instructions. Current medication use: no side effects, compliant with dosing regimen and not considered effective End: 03-Feb-2011 8:37 by patient. Patient sleeps 7 hours per night. Impact of disease: emotional impact- mild. Nutrition: balanced diet and supplemental vitamins. The medical issues the patient is following up for include blood sugar issues.Encounter Diagnosis: Diabetes, Type II, controlled (250.00) [facility] Office Visit On: 18-Jan-2011 11:28 Encounter Reason: Follow up for chronic medical issues - The patient does not feel well (joint pain in legs and back.), has decreased energy level and is sleeping poorly. Patient has been compliant with instructions. Cur End: 18-Jan-2011 12:11 rent medication use: no side effects. Patient sleeps 5 hours per night. Impact of disease: emotional impact-moderate, impact on recreation-moderate, impact on relationships-moderate and physical impact- moderate. Nutrition: inappropriate diet and supplemental vitamins. The medical issues the patient is following up for include blood sugar issues, cardiac issues, depression, fibromyalgia, high blood pre ssure, high cholesterol, hypothyroid and osteoarthritis. 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 Patient has been compliant with instructions. Current medication use: no side effects. Mulu End: 17-Oct-2010 11:25 ent sleeps 7 hours per night. Impact of disease: emotional impact-mild. Nutrition: balanced diet and supplemental vitamins. 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 Patient has been compliant with instructions. Current medication use: no side effects. End: 21-Jul-2010 11:08 Patient sleeps 8 hours per night. Impact of disease: emotional impact-moderate. Nutrition: balanced diet and supplemental vitamins (b-12, fish oil, D3). 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 Patient has been compliant with instructions. Current medication use: n End: 25-Apr-2010 20:45 o side effects. Patient sleeps 8 hours per night. Impact of disease: emotional impact- moderate and impact on recreation-moderate. Nutrition: balanced diet and supplemental vitamins (b-12, fish oil, D3). The medical issues the patient is following up for include blood sugar issues, cardiac issues, depression, high blood pressure, high cholesterol, hypothyroid and osteoarthritis. fasting blood sugars :, weight : and daily caloric intake:. 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 Patient has been compliant with instructions. Current medication use: n End: 17-Jan-2010 13:21 o side effects. Patient sleeps 8 hours per night. Impact of disease: emotional impact- moderate and impact on recreation-moderate. Nutrition: balanced diet and supplemental vitamins (b-12, fish oil, D3). The medical issues the patient is following up for include blood sugar issues, cardiac issues, depression, high blood pressure, high cholesterol, hypothyroid and osteoarthritis. fasting blood sugars :, weight : and daily caloric intake:. 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 Current symptoms/reason for visit include/s Symptoms include arthralgia. Past medical history includes anemia ,cardiovascular disease ,diabetes geo End: 06-Sep-2009 12:00 itus ,elevated cholesterol ,elevated triglycerides ,emotional problems and other (obesity, cataract, neuropathy, neuralgia). Encounter Diagnosis: Diabetes, Type II, controlled (250.00), Anemia (285.9), ARTHRALGIAS 719.40 [facility] Office Visit On: 20-Aug-2009 11:01 Encounter Reason: new patient female physical - Last seen less than 1 month ago. General health: does not feel well ,has decreased energy level and is sleeping well. The patient's appetite is normal. Nutrition: normal/ad End: 20-Aug-2009 12:52 equate. Exercises 0 days per week. Sleeps on average 8 hours per night. Normal bowel and bladder habits. Safety measures include appropriate use of safety belts and home smoke detectors. Current emotion al problems include anxiety and depression. screening, colonoscopy (2007) ,screening, mammography (long time ago) ,screening, Pap smear (hx. total hysterectomy) and screening, visual acuity (wears glasses 2008). Encounter Diagnosis: Diabetes, Type II, controlled (250.00), NEUROPATHY, NOS (337.9), Obesity (278.00), DISORDER, THYROID NOS (246.9), Hypertension,benign(401.1), DISEASE, HEART NOS (429.9), Cataract (366.9), arthritis,unspecified (716.90), Anemia (285.9), ARTHRALGIAS 719.40, Coronary artery disease (414.00), Hypercholesteremia (272.0) [facility] Historical Summary On: 19-Aug-2009 11:56 [facility] End: 19-Aug-2009 12:22 Payers MedicareMutual of [place]MedicaidBarbara Jackson; a guarantor
--- OUTSIDE RECORDS SUMMARY | 2018-04-22 10:06 | XMS RPT_ITS | Continuity of Care Document ---
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 crcl 57 send info to nimisha on [...] Fede Stent [address] Campa in [place] Status: Active Current nonsmoker (Renamed from Current [...] Comments: HBA1c 7.5(04/11)HBA1c 7.4 (10/13/15)HBA1c 8.2(12/09)Hba1c 6.1 (4-10-17) Hba1c 6.4 (-17)See DR seymour2-2016)Levemir 30 units BIDMetformin [address] Tanner josue q 3 month loperamide 3 ti mes a day helps sometimesUSed trulicity: 4 week, dry heaves, stomach cramps, no vomiting, resoled after stopping trulicity(03/10)Junuvia on [id number] once daily Rageye exam yearly(12/09/15), catarctekg cardiology Dr Zhang, stents 1 in 2003Podiatry: [facility], every 3 months, Has multiple toe amputations [...] Comments: Sees pain management Dr. Mcfadden at [facility], she prescribes lyrica, dose increased in winter [...] toprol BP stable sees Dr. Campa in [place] physical therapy aide with [facility] BP:130-138/78 Status: Active Hypothyroidism (E03.9, 244.9) Status: Active Insomnia (G47.00, 780.52) Status: Active Iron deficiency anemia (D50.9, 280.9) Comments: Get IV iron by Dr Lau(last 01/08)Cant tolerqate Fe supplwementNeeds colonospy, reemphasized need for colonosocpy. Status: Active Iron deficiency anemia (D50.9, 280.9) Comments: cannot take oral iron send to Dr Lau, had IV iron about 1 yr ago Status: Active Knee pain (M25.569, 719.46) Comments: 1 cc juanis Lot#: [id number] exp 2 cc miguel a lot#: [id number] exp: right knee has RA and this [...] then weaned off ventilator or sent to [facility] Status: Active Mitral valve stenosis (I05.0, 394.0) Comments: MODERATE: Saw Dr Zhang (does not want to see him again, was told needs mitral valve replacement as is not candidate for valvuloplastyNew Dr : DR Kee Campa([place])per pt does not receomemd surgery at this [...] immunization against influenza) (Z23, V04.81) Status: Active Need for Tdap vaccination (Renamed from Need for mazqkyyqty-zkhlmga-ikbafoaaw (Tdap) vaccine, adult/adolescent) (Z23, V06.1) Status: Active Nonsmoker (Z78.9, V49.89) Status: Active Numbness on right side (R20.0, 782.0) Comments: new. ? from neck ? from stroke. weakness hard to tell in habd because of RA deformity Status: Active Obesity (E66.9, 278.00) Comments: slowly lost weight and keep off. arava helps with this. continues to loose. Status: Active Peripheral neuropathy (G62.9, 356.9) Comments: see Maryam rocha help labs good try increase lyrica and increase appetite cymbalta helping Status: Active Postmenopausal (Renamed from Postmenopausal status) (Z78.0, V49.81) Status: Active Pregnancies () Comments: 1 Csection Status: Active PVD (peripheral vascular disease) (I73.9, 443.9) Comments: angioplasty 12-12 Dr. Smith. done because nonhealing wound. stable no signs and symptomsleft small artery Status: Active Recurrent oral ulcers (K13.79, 528.9) Status: Active Rheumatoid arthritis (M06.9, 714.0) Comments: Aramarques(Dr Francisco) holding DR Francisco 04/11DR Bogdan Pain managemenet 21 dec 2015: Lyrica , general pain gets percocettDr Maryam RA and OAVery achy Status: Active Seizure (R56.9, 780.39) Comments: ? related to above. she is on dilantin. will do sleep deprived EEG 04-05. if negative,will try off seizures med. will [...] V49.72) Comments: June 2016 Dr. Child, with stap Status: Active Ulcer of foot (L97.509, 707.15) [...] for new wheelchair, she will look at [facility] to see what she would like and [...] Quantity: 30 {Tablet} Refills: 11 Ordered:02-Aug-2017 Maxine HINTON Mayra SHEPPARDtony HINTON Mayra George Start : 02-Aug-2017 Active Cyanocobalamin 1000 MCG/ML Injection Solution monthly (1000 MCG/ML) Active Cymbalta 30 MG Oral Capsule Delayed Release Particles daily (30 MG) Active FLUoxetine HCl 40 MG Oral Capsule 1 Capsule QD for 0 days Quantity: 30 {Capsule} Refills: 4 Ordered:04-Mar-2018 Maxine HINTON Mayra Keithdonavon HINTON Mayra George Start : 04-Mar-2018 Active Fluticasone Propionate 50 MCG/ACT Nasal Suspension 2 (two) Sprays each nostril qd for 30 days Quantity: 1 {Box} Refills: 1 Ordered:04-Mar-2018 Maxine HINTON Mayra SHEPPARDtony HINTON Mayra George Start : 04-Mar-2018 Active Glucophage 500 MG Oral Tablet 2 (two) Tablet two times daily for 30 days Quantity: 60 {Tablet} Refills: 2 Ordered:03-Jul-2016 Maxine HINTON Mayra SHEPPARDtony HINTON Mayra George Start : 03-Jul-2016 Active Comments:please give $4 prescription of glucophage, dont do metformin(has diarhea with metformin, not with generic glucophage ) Levemir 100 UNIT/ML Subcutaneous Solution 1 (one) Solution 30 in AM and 30 at bedtime for 30 days Quantity: 2 {Package} Refills: 1 Ordered:03-Jul-2016 Maxine SINGING TEACHER, Mayra Lin SINGING TEACHER, Ivonne Start : 03-Jul-2016 Active Comments:Total 60 units [...] Dempsey MD Start : 19-Jul-2015 Active Comments:E11.9NPI: [phone] PERCOCET, 7.5-325MG (Oral Tablet) 2 (two) Tablet every 4 hours prn for 0 days Quantity: 160 {Tablet} Refills: 0 Ordered:08-Sep-2015 Rafael Thomas MD Start : 08-Sep-2015 Active Comments:one hundred and sixty Pravastatin Sodium 20 MG Oral Tablet 1 Tablet QD for 30 days Quantity: 30 {Tablet} Refills: 1 Ordered:15-Feb-2018 Maxine SINGING TEACHER, Mayra Lin CNP, Ivonne Start : 15-Feb-2018 Active PredniSONE 10 MG [...] 30 days Quantity: 30 {Tablet} Refills: 3 Ordered:04-Mar-2018 Maxine HINTON, Mayra Lin SINGING TEACHER, Ivonne Start : 04-Mar-2018 Active Toprol XL 50 MG Oral Tablet Extended Release 24 Hour 1 (one) Tablet ER 24HR qd for 0 days Quantity: 30 {Tablet} Refills: 6 Ordered:14-Jan-2018 Jacqueline Sandy DO Start : 14-Jan-2018 Active Vitamin D3 2000 UNIT Oral Capsule 2 (two) Capsule bid for 30 days Quantity: 60 {Capsule} Refills: 3 Ordered:17-Oct-2017 Maxine HINTON, Mayra Lin CNP, Mayra George Start : 17-Oct-2017 Active Accu-Chek FastClix Lancet [...] days Quantity: 60 {Tablet} Refills: 3 Ordered:18-Dec-2016 Maxine SINGING TEACHER, Mayra Delia HINTON, Ivonne Start : 08-Sep-2015 End : 18-Dec-2016 [...] Quantity: 30 {Tablet} Refills: 0 Ordered:01-Apr-2015 HARESH Griffin Start : 31-Mar-2015 End : 01-Apr-2015 Inactive HUMALOG, 100UNIT/ML (Subcutaneous Solution) uad Solution tid with meals for 0 days Quantity: 2 {Vial} Refills: 0 Ordered:01-Apr-2015 HARESH Griffin Start : 31-Mar-2015 End : 01-Apr-2015 Inactive Comments:SSI: 151-200-1 nftn398-789-1 units 711-509-5jfwig 301-350-4 units 351-400-5 unitsover 400 give 5 units and call provider Ellie 100 MG Oral Tablet 1 (one) Tablet daily for 30 days Quantity: 30 {Tablet} Refills: 0 Ordered:10-Jan-2017 Maxine HINTON, Mayra Lin CNP, Mayra George Start : 10-Jan-2017 End : 09-Feb-2017 Inactive [...] days Quantity: 30 {Capsule} Refills: 0 Ordered:10-Jan-2017 Laurel Thomsa LPN Start : 06-Nov-2016 End : 10-Jan-2017 Inactive METANX, 3-90.314-2-35MG (Oral Capsule) 1 Capsule Capsule qd for 0 days Quantity: 30 {Capsule} Refills: 3 Ordered:31-Mar-2015 HARESH Griffin Start : 24-Feb-2013 End : 31-Mar-2015 Inactive METFORMIN HCL ER (OSM), 1000MG (Oral Tablet Extended Release 24 Hour) 1 (one) Tablet ER 24HR bid for 0 days Quantity: 60 {Tablet} Refills: 3 Ordered:20-Aug-2015 Faviola Howell LPN Start : 06-Aug-2015 End : 20-Aug-2015 Inactive [...] me sick as a dog Vitamin D3 78890 UNIT Oral Capsule 1 (one) Capsule once a week for 60 days Quantity: 8 {Capsule} Refills: 0 Ordered:15-Dec-2015 Rafael Thomas MD Start : 15-Dec-2015 End : 13-Feb-2016 Inactive ZOLPIDEM TARTRATE, 10MG (Oral Tablet) 1 Tablet qhs prn for 0 days Quantity: 30 {Tablet} Refills: 3 Ordered:31-Mar-2015 HARESH Griffin Start : 03-Nov-2013 End : 31-Mar-2015 Inactive Comments:estephania ZOSTAVAX, 32084QYO/0.65ML (Subcutaneous Solution Reconstituted) uad For Solution one time SQ injection for 0 days Quantity: 1 {For_Solution} Refills: 0 Ordered:01-Oct-2012 Long Faviola FOOTE Start : 29-Aug-2012 End : 01-Oct-2012 Inactive ACTOS, 15MG (Oral Tablet) 1 Tablet QD for 30 days Quantity: 30 {Tablet} Refills: 6 Ordered:18-Jan-2011 Katelyn Dempsey MD Start : 18-Jan-2011 End : 18-Jan-2011 Discontinued Carvedilol 6.25 MG Oral Tablet 1 (one) Tablet QD for 0 days Quantity: 30 {Tablet} Refills: 1 Ordered:03-Jul-2016 Laurel Thomas LPN Start : 15-May-2016 End : 03-Jul-2016 [...] : 24-Feb-2013 Discontinued Comments:This order discontinued per [employer]. MetFORMIN HCl 1000 MG Oral Tablet 1 (one) Tablet bid for 0 days Quantity: 60 {Tablet} Refills: 3 Ordered:03-Jul-2016 Laurel Thomas LPN Start : 08-Sep-2015 End : 03-Jul-2016 Discontinued NOVOLOG FLEXPEN, 100UNIT/ML (Subcutaneous Solution) 1 Solution 6-20 units with meals by sliding scale for 0 days Quantity: 15 {Solution} Refills: 6 Ordered:26-Jan-2014 AHRESH Griffin Start : 26-Jan-2014 End : 31-Mar-2015 Discontinued Comments:This order discontinued per [employer]. RA Fish Oil 1000 MG Oral Capsule [...] 12-May-2013 Diarrhea (R19.7, 787.91) Comments: diarrhea since 2015 try adding probiotic Status: Inactive as of [...] Colonoscopy 2006 Completed COLONOSCOPY, NOS Completed Comments: 2007 Dr Mcfadden - 06/[address] Chong - 08-[address] Francisco - Juan Mgt Completed HEART, NOS Completed Comments: Stint Hysterectomy Completed KNEE BONE, NOS Completed Comments: CAP surgery middle toe amputated on right foot Completed 10/14/15 Pneumonia 2016 Completed Shingles Vac 2016 Completed toe amputation 1-12 MRSA Completed Tonsillectomy Completed Vision Screen Completed Comments: 2014 Date Value Details 17-Dec-2017 Inital Evaluation (1) - PT Result: Comments: See Note; NOTES: [facility] Physical Therapy [facility] [address] [place] [address] Fax REHABILITATION SERVICES INITIAL EVALUATION MR#: [id number] Acct: [id number] Name: TIA SERVIN Rep #: [id number] : 1945 72 From: Juanis Sanchez DPT Referring DrWinston: Mayra Goodman SERVICE ORDER DISPATCHER CHIEF Status: REG RCR Insurance: MEDICARE PART A B [facility] Patient's Visit Information TIA SERVIN is [...] has so at this point the aide charles es her car into the [employer] so she can take steps for about [...] Scap: poor, Shoulder: 4-/5 throughout Elbow: 4-/5 Nutrition Counselor: poor - Goa Goal 1:: Patient will be eligable for [...] to be FAXED BACK to us at [phone] for Medicare purposes. Please let me know if there are questions or concerns regarding this plan of care. Physician Signature: Date: <Electronically signed by Juanis Sanchez DPT> 12/17/17 10 38 CC: Mayra Goodman NP ELR Signed For Medicare only, by signing this I certify the plan of care. Physicians Signature Date 05-Jan-2016 Stress Test Echo w/ Contrast Result: Comments: See Note; NOTES: [facility] Cardiovascular Services [address] [place] [address] [place] 4d Stress Test Echo w/o Contrast MR#: [id number] Acct: [id number] Name: TIA MACARIO Ebony Rep #: [id number] : 1945 70 From: Pawan Zhang MD Primary Care: Rafael Thomas Status: REG I Ordering Dr: Pawan Zhang MD Sex: F C Reason For Study: [...] 30.00 DOBUTAMINE STAGE 4 1:12 12 5 151/88205.00 BASELINE 88 141/55 Stress Duration: 10:12 mm:ss [...] abnormalities noted. abnormalities noted. EKG Data [facility] ECG displays normal sinus rhythm. During dobutamine [...] V2 VTI: 37.4 cm Ordering Physician: Pawan Zhang Referring Physician: Pawan Zhang MD Performed By: Arlyn Britton RDCS R VT 01/05/16 1604 Date Pawan Zhang MD CC: Pawan Zhang MD; Rafael Thomas Date D ictated: 01/05/16 1037 Date Transcribed: 01/05/16 1604 Deli Bakery Clerk: Signed 18-Nov-2015 Emergency Department Summary Result: Comments: See Note; NOTES: [facility] Medical Records Department [address] [place] [address] Emergency Department Summary MR#: [id number] Acct: [id number] Name: JC SERVIN Rep #: [id number] : 1945 70 From: Jose Mccain MD PCP: Rafael Thomas Status: DEP ER DATE OF SERVICE: 11/11/2015 CHIEF COMPLAINT: [...] Charcot. Jose Mccain M.D. T: NTS JOB: [id number] 11/18/15 0739 <Electronically signed by Jose Mccain MD> Date Jose Antonio Signature (If Indicated): Date CC: Rafael Thomas Date Dictated: 11/10 Date Transcribed: 11/11/151715 Deli Bakery Clerk: Signed 11-Nov-2015 Discharge Instruction Result: Comments: See Note; NOTES: [facility] Medical Records Department [address] [place] [address] [place] [address] Discharge Instruction 11/11/15 1451 MR#: [id number] Acct: [id number] Name: TIA SERVIN Rep #: [id number] : 1945 70 From: Jose Mccain MD [...] any unexpected problems, contact your doctor. Call [facility] ([phone]) or report to [facility] Emergency Room. Call 911 if necessary. 11/11/151906 <Electronically signed by Jose Mccain MD> Date Jose Antonio Signature (If Indicated): Date CC: Rafael Thomas 11-Nov-2015 Ankle min 3 Views Result: Comments: See Note; NOTES: [facility] Imaging Services [address] [place] [address] Verdana 4d Ankle min 3 Views MR#: [id number] Acct: [id number] Name: TIA SERVIN Rep #: [id number] : 1945 F 70 From: Clemencia Holden MD PCP: Rafael Thomas Status: REG ER Study: Ankle min 3 Views Date of Exam: 11/11/15 Exam# [id number] Ordering Dr: Jose Mccain MD STUDY: X-RAY [...] MD at 14:20 EDT , Service support [phone], CC: Jose Mccain; Rafael Thomas Deli Bakery Clerk: Signed 11-Nov-2015 Foot min 3 Views Result: Comments: See Note; NOTES: [facility] Imaging Services [address] [place] [address] Verdana 4d Foot min 3 Views MR#: [id number] Acct: [id number] Name: TIA SERVIN Rep #: [id number] : 1945 F 70 From: Clemencia Holden MD PCP: Rafael Thomas Status: REG ER Study: Foot min 3 Views Date of Exam: 11/11/15 Exam# [id number] Ordering Dr: Jose Mccain MD STUDY: X-RAY [...] Signed: Clemencia randhawa MD at 14:26 EDT , Service support [phone], CC: Jose Mccain; Rafael Thomas Deli Bakery Clerk: Signed 08-Nov-2015 PT D/C Summary (1) Result: Comments: See Note; NOTES: [facility] Physical Therapy [facility] [address] [place] [address]. [address] [place] [address] Fax REHABILITATION SERVICES DISCHA RGE SUMMARY MR#: [id number] Acct: [id number] Name: TIA SERVIN Rep #: [id number] : 1945 70 From: Laura Wright PT, Cert. MDT Referring Dr.: OUT OF TOWN DOCTOR Status: REG RCR Insurance: MEDICARE PART A B [employer] [facility] - PT D/C Summary It has [...] TO FOLLOW UP WITH DR. LAY IN [place] SUNDAY. SHE REPORTS SHE DOES NOT WANT [...] please feel free to call me at . Thank you for the referral of this patient. Sincerely, Laura Wright <Electronically signed by Laura Wright PT, Cert. MDT> 11/08/15 1035 CC: MISBAH STRONG; Rafael Thomas; OUT OF TOWN DOCTOR JH Signed 27-Oct-2015 Inital Evaluation (1) - PT Result: Comments: See Note; NOTES: [facility] Physical Therapy [facility] [place], [place] [address] Fax REHABILITATION SE RVICES INITIAL EVALUATION MR#: [id number] Acct: [id number] Name: TIA SERVIN Rep #: [id number] : 1945 70 From: Laura Wright PT, Cert. MDT Referring Dr.: Georgi Lay MD Status: R EG RCR Insurance: MEDICARE PART A B [facility] Patient's Visit Information TIA SERVIN is [...] X-RAYS AND CT SCAN. PATIENT REPORTS DR. LAY DOES NOT WANT TO DO SURGERY UNLESS [...] THE [facility]OSPITAL [facility] W[facility] AND THEN A [facility] FOR A MONTH TO TRY TO GET HER STRENGTH BACK. PATIENT REPORTS SHE ALSO HAS A HISTORY OF LUMBAR PRO BLEMS AND THEY ARE WORSENING. Recent major surgery: RENETTA LE TOE AMPUTATIONS AND OPEN SORES ON TOES CURRENTLY. HEART CATH/STENTS. RA AND OA. SOCIAL: LIVES ALONE. 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 OTHER: PATIENT REPORTS SHE DOES NOT DO WELL IN THERAPY. SHE STATES IT USUALLY CAUSES TOO MUCH PAIN. I ACHE SO BAD WHEN I DO THERAPY. PATIENT REPORTS THEY PUT HER IN THERAPY AT THE [facility] AND S HE COULDN'T DO MUCH. - [...] to be FAXED BACK to us at [phone] for Medicare purposes. Please let m e know if there are questions or concerns regarding this plan of care. Physician Signature: Date: <Electronically signed by Cert. MACARIO Rowe PTT> 10/27/15 1202 CC: Georgi Lay MD; Rafael Thomas JH Signed For Medicare only, by signing this I certify the plan of care. Physicians Signature Date 07-Oct-2015 Re-Evaluation - PT (1) Result: Comments: See Note; NOTES: [facility] Physical Therapy [facility] [address] [place] [address] Fax [facility]UATION / [facility] MR#: [id number] Acct: [id number] Name: TIA SERVIN Rep #: [id number] : 1945 70 From: Cert. MACARIO Rowe PTT Referring Dr.: Wandy Lay MD Status: REG RCR Insurance: MEDICARE PART A B [employer] [facility] Lay MD, It has been my pleasure [...] do not hesitate to contact me at [phone] by phone or if you have questions or concerns regarding this new plan of care! Sincerely, Laura Wright <Electronically signed by Laura Wright PT, Cert. MDT> 10/07/15 1155 CC: Georgi Lay MD; Rafael Thomas DT: JH Signed For Medicare only, by signing this I certify the plan of care. Physicians Signature Date 24-Aug-2015 NCS and/or EMG Patient Result: Comments: See Note; NOTES: [facility] Pulmonary Services/Neurology [address] [place] [address] NCS and/or EMG Patient MR#: [id number] Acct: [id number] Name: TIA MARTINEZ Rep #: [id number] : 1945 70 From: Jakob Pino MD Referring Dr: Katelyn Dempsey MD Status: REG CLI Ordering Dr: Katelyn Dempsey MD Date: 08/18/15 Location: PSN Sex: F C DATE OF ERVICE: The [...] median mononeuropathy. This is consistent with a qgkd-ey-nuibuevr right carpal tunnel syndrome. 2. Electrodiagnostic findings demonstrate acute right-sided C5 radiculopat hy. If there are any questions in regards to this exam, please do not hesitate to contact me. Jakob Pino MD T: NTS JOB: [id number] 08/24/15 1521 <Electronically signed by Jakob Pino MD> Date Jakob Pino MD CC: Jakob Pino; Katelyn Dempsey MD Date Dictated: 08/18/15 1258 Date Transcribed: 08/18/151257 Deli Bakery Clerk: Signed 20-Jul-2015 Renal Artery Duplex Result: Comments: See Note; NOTES: [facility] Cardiovascular Services [address] [place] [address] Renal Artery Duplex Ultrasound 07/20/15 0853 MR#: [id number] Acct: [id number] Name: TIA SERVIN Rep #: [id number] : 1945 70 From: Martinez Faulkner MD Attending Dr: Katelyn Dempsey MD Status: REG CLI Ordering Dr: Katelyn Dempsey MD Date: 07/20/15 Location: [facility] S ex: F C Admitted: Reason For [...] Kidneys appear normal in size bilaterally. O rdering Physician: Katelyn Dempsey Performed By: Bandar Ch RVT 07/20/15 1210 Date Martinez Faulkner MD CC: Katelyn Dempsey MD Date Dictated: 07/20/15 0853 Date Transcribed: 07/20/15 1210 Deli Bakery Clerk: Signed 20-Jul-2015 Kidney and Bladder Result: Comments: See Note; NOTES: [facility] Imaging Services [address] [place] [address] Verdana 4d Kidney and Bladder MR#: [id number] Acct: [id number] Name: TIA SERVIN Rep #: [id number] : 1945 F 70 From: Arabella Peace MD PCP: Katelyn Dempsey MD Status: REG CLI Study: Kidney and Bladder Date of Exam: 07/20/15 Exam# [id number] Ordering Dr: Katelyn Dempsey MD STUDY: RENAL [...] MD at 13:01 EDT , Service support [phone], CC: Katelyn Dempsey MD Deli Bakery Clerk: Signed 20-Jul-2015 Brain W/WO Contrast Result: Comments: See Note; NOTES: [facility] Imaging Services [address] [place] [address] Verdana 4d Brain W/WO Contrast MR#: [id number] Acct: [id number] Name: TIA SERVIN Rep #: [id number] : 1945 F 70 From: Arabella Peace MD PCP: Katelyn Dempsey MD Status: REG CLI Study: Brain W/WO Contrast Date of Exam: 07/20/15 Exam# [id number] Ordering Dr: Moe Dempsey MD STUDY: MRI [...] MD at 12:28 EDT , Service support [phone], CC: Katelyn Dempsey MD Deli Bakery Clerk: Signed 20-Jul-2015 Spine Cervical (Routine) Result: Comments: See Note; NOTES: [facility] Imaging Services [address] [place] [address] Verdana 4d Spine Cervical (Routine) MR#: [id number] Acct: [id number] Name: TIA ANDRADE Rep #: [id number] : 1945 F 70 From: Arabella Peace MD PCP: Katelyn Dempsey MD Status: REG CLI Study: Spine Cervical (Routine) Date of Exam: 07/20/15 Exam# [id number] Ordering Dr: Katelyn Irby MD STUDY: MRI CERVICAL SPINE WITHOUT [...] at 11:49 ED T , Service support [phone], CC: Katelyn Dempsey MD Deli Bakery Clerk: Signed 17-Jun-2015 Echocardiogram Complete Result: Comments: See Note; NOTES: [facility] Cardiovascular Services [address] [place] [address] Echo Complete 06/17/15 0753 MR#: [id number] Acct: [id number] Name: MILY JENSENELICEOTIA Ebony Rep #: [id number] : 1945 70 From: Pawan Zhang MD Attending Dr: Pawan Zhang MD Status: REG I Ordering Dr: Pawan Zhang MD Date: 06/17/15 Location: [facility] Sex: F C Admit noy: Reason For [...] no comparison study available. Ordering Physician: Pawan Zhang Referring Physician: Katelyn Dempsey M.D. Performed By: No Performed By Selected> 06/17/15 1057 Date Pawan Zhang MD CC: Katelyn Dempsey MD; Pawan Zhang MD Date Dictated: 06/17/15 0753 Date Transcribed: 06/17/15 105 Deli Bakery Clerk: Signed 04-Mar-2015 Brain/Head without Contrast Result: Comments: See Note; NOTES: [facility] Imaging Services [address] [place] [address] [place] 4d Brain/Head without Contrast MR#: [id number] Acct: [id number] Name: TIA SERVIN Rep #: [id number] : 1945 F 69 From: Kahlil Watres PCP: Katelyn Dempsey MD Status: REG ER Study: Brain/Head without Contrast Date of Exam: 03/04/15 Exam# [id number] Esteban rivera Dr: Oleg Nash MD STUDY: CT BRAIN [...] 0 at 3:47 EST , Service support [phone], CC: Katelyn Dempsey MD; Oleg Nash M.D. Deli Bakery Clerk: Signed 16-Feb-2014 Pelvic (Non ) Result: Comments: See Note; NOTES: [facility] Imaging Services [address] [place] [address] Ultrasound Report MR#: [id number] Acct: [id number] Name: TIA SERVIN Rep #: [id number] : 1945 F 68 From: Misbah Elaine DO PCP: Katelyn Dempsey MD Status: REG CLI Study: Pelvic (Non ) Date of Exam: 02/16/14 Exam# [id number] Ordering Dr: Katelyn Dempsey MD STUD Y: [...] at 4:59 EST Tel , Service support [phone], CC: Katelyn Dempsey MD Deli Bakery Clerk: Signed Immunization Name Dates Details Pneumococcal conjugate [...] Most Recent Primary 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, 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, Status: Active No Drug Use Status: Active Tobacco Use Comments: Remotely quit tobacco use 1987 Status: Active Vital Signs Date Test Result Details 99-Fzm-704277:07 Temperature 97.3 f Comments: Method: Temporal Pulse 68 /min Comments: Pattern: Regular Respiration Rate 17 /min Comments: Pattern: Unlabored O2 SAT 94 % Comments: Room air BP Systolic 150 mm[Hg] Comments: Patient Position: Sitting; Cuff Location: Left Arm; Cuff Size: Standard BP Diastolic 72 mm[Hg] Comments: Patient Position: Sitting; Cuff Location: Left Arm; Cuff Size: Standard Weight 210 lb Height 64.25 in Body Mass Index Calculated 35.77 kg/m2 Body Surface Area Calculated 2 m2 9-Jxm-199929:37 Temperature 97.8 f Comments: Method: Temporal Pulse [...] kg/m2 Body Surface Area Calculated 2 m2 :59 Temperature 97.3 f Comments: Method: Temporal Pulse [...] Area Calculated 2.07 m2 :35 Comments: has [facility] Temperature 97.1 f Comments: Method: Temporal Pulse [...] kg/m2 Body Surface Area Calculated 2.07 m2 30-Vgu-801143:00 Temperature 97.4 f Comments: Method: Temporal Pulse [...] kg/m2 Body Surface Area Calculated 2.23 m2 :24 Temperature 98.2 f Comments: Method: Oral Pulse [...] 240 lb Results Date Description Value Details 56-Xfy-650254:17 CBC W/Diff, Automated Comments: WANTS THE CMP CBCDDRVANNESSA WANTS THE A1C CMP [facility] [address]ycdvlumsm[address] [place], [address] Absolute Lymph 0.82 {X10_3/ul} (Abnormal) Range: 0.83-4.51 [...] 4.2-5.4 WBC 6.6 K/mm3 (Normal) Range: 4.4-11.0 72-Fep-950446:17 Comprehensive Metabolic Profil Comments: WANTS THE CMP CBCDDR.DERRICK WANTS THE A1C CMP [facility] Qqnfvyhcnt0840 [facility] [place], [place], [address] GAP 11 (Normal) Range: 5-15 CO2 22.0 [...] A.D.A. criteria.Please note revised GLUCOSE reference range isavgmava54/02/2018. 31-Txx-152978:17 Hemoglobin A1c Comments: WANTS THE [facility] CBCDDR.DERRICK WANTS THE A1C [facility] [address] [place], [address] HGB A1C 5.9 % (Normal) Range: 4.2-6.3 50-Fqa-377755:17 Microalb:Creat Ratio,Random UR Comments: WANTS THE [facility] CBCDDR.DERRICK WANTS THE A1C [facility] [address]gsqph[address] [place], [address] MALB:CREAT 14.7 {mg/g_CRE} (Normal) MICROALBUMIN,UR 26.9 mg/L (Normal) UR CREAT 183.00 mg/dL (Normal) 49-Snr-130304:17 Thyroid Stim Hormone (TSH) Comments: WANTS THE [facility] CBCDDR.DERRICK WANTS THE A1C [facility] [address] [place], [address] TSH 0.78 {uIU/mL} (Normal) Range: 0.358-3.74 9-Pcd-598273:11 CBC W/Diff, Automated Comments: [facility] [address] [place], [address] Absolute Lymph 1.06 {X10_3/ul} (Normal) Range: 0.83-4.51 [...] 4.2-5.4 WBC 6.4 K/mm3 (Normal) Range: 4.4-11.0 4-Lme-070563:11 Comprehensive Metabolic Profil Comments: [facility] [address]xh[address] [place], [address] GAP 14 (Normal) Range: 5-15 CO2 24.0 [...] A.D.A. criteria.Please note revised GLUCOSE reference range uswvrfhww16/02/2018. 08-Fto-564808:01 HgA1C , Office (58771) Comments: 5.8 HgA1C , Office 5.8 % (Normal) Range: 4.6 - 7.1 81-Kyd-224637:00 Blood Glucose , Office (38630) Comments: 99 Blood Glucose , Office 99 (Normal) 02-Hpw-95019:19 Comprehensive Metabolic Profil Comments: [facility] [address]adsrf[address] [place], [place], [address] GAP 11 (Normal) Range: 5-15 CO2 26.0 [...] criteria.Please note revised GLUCOSE reference range /02/2018. :19 Hemoglobin A1c Comments: [facility] Iskkxnflee2056 [facility]. [place], [place], [address] HGB A1C 5.6 % (Normal) Range: 4.2-6.3 :19 Thyroid Stim Hormone (TSH) Comments: [facility] Kwjnfuicsb0342 [facility]. [place], [place], [address] TSH 2.33 {uIU/mL} (Normal) Range: 0.358-3.74 :19 Vitamin D,25 Hydroxy Comments: [facility] Mansjolhio5233 [facility]. [place], [place], [address] Vitamin D 25-OH 37.3 ng/mL (Normal) Range: 29.95-100.01 Comments: Vitamin D 25(OH) Status Range Deficiency <20 ng/mL (50nmol/L) Insuffciency - 30 ng/mL (50 - 75 nmol/L) Sufficiency 30 - 100 ng/mL (75 - 250 nmol/L) Toxicity >100 ng/mL (>250 nmol/L) 25-Hya-695563:01 CBC W/Diff, Automated Comments: [facility] [address] [place], [place], [address] Absolute Lymph 1.26 {X10_3/ul} (Normal) Range: 0.83-4.51 [...] 4.2-5.4 WBC 7.4 K/mm3 (Normal) Range: 4.4-11.0 66-Rsa-101794:01 Comprehensive Metabolic Profil Comments: [facility] [address] [place], [place], [address] GAP 10 (Normal) Range: 5-15 CO2 25.0 [...] A.D.A. criteria.Please note revised GLUCOSE reference range sjsascfnc58/02/2018. 32-Cfy-787924:34 CALCIFEDIOL (70238) Comments: PATIENT NOT FASTINGPERFORMED BY: [facility] CenterVisqup6733 [facility] [id number] Vitamin D, 25-Hydroxy 30.2 ng/mL (Normal) Range: 30.0-100.0 Comments: Vitamin D deficiency has been defined by the [place] of[place]icine and an Endocrine Society practice guideline as alevel of serum 25-OH vitamin D less than 20 ng/mL (1,2).The Endocrine Society went on to further define vitamin Dinsufficiency as a level between 21 and 29 ng/mL (2).1. IOM ([place] of Medicine). 2010. Dietary reference intakes for calcium and D. [place]: The National Academies Press.2. Brandon MF, Bakari BOYD, Vicente IZAGUIRRE, et al. Evaluation, treatment, and prevention of vitamin D deficiency: an Endocrine Society clinical practice guideline. JCEM. 2010; 96(7):1911-30. 25-Jul-20179:41 Comprehensive Metabolic Profil Comments: [facility] [address]ocwm[address] [place], [address] GAP 10 (Normal) Range: 5-15 CO2 24.0 [...] A.D.A. criteria.Please note revised GLUCOSE reference range ijhockvar55/02/2018. :41 Hemoglobin A1c Comments: [facility] F[address]zhvmkbb[address] [place], [address] HGB A1C 5.8 % (Normal) Range: 4.2-6.3 :41 Lipid Profile Comments: [facility] Q[address]zvinf[address] [place], [address] VLDL 45 mg/dL (Abnormal) Range: 5-40 LDL [...] High Risk :41 Microalb:Creat Ratio,Random UR Comments: [facility] [address]nekotbv[address] [place], [place], [address] MALB:CREAT 14.8 {mg/g_CRE} (Normal) MICROALBUMIN,UR 46.0 mg/L (Normal) UR CREAT 310.00 mg/dL (Normal) :41 Thyroid Stim Hormone (TSH) Comments: [facility] [address]oym[address] [place], [address] TSH 1.96 {uIU/mL} (Normal) Range: 0.358-3.74 25-Uhw-872092:18 CBC W/Diff, Automated Comments: [facility] Lngqfypycs1653 [facility]. [place], [place], [address] Absolute Lymph 1.08 {X10_3/ul} (Normal) Range: 0.83-4.51 [...] 4.2-5.4 WBC 4.7 K/mm3 (Normal) Range: 4.4-11.0 34-Sap-789933:18 Comprehensive Metabolic Profil Comments: [facility] Kfqcpkzlqi1679 [facility] [place], [address] GAP 7 (Normal) Range: 5-15 CO2 26.0 mmol/L (Normal) Range: 21.0-32.0 CL 107 mmol/L (Normal) Range: 98-107 K 4.8 mmol/L (Normal) Range: 3.5-5.1 NA 140 mmol/L (Normal) Range: 136-145 T BILI 0.60 mg/dL (Normal) Range: 0.20-1.00 ALT 16 U/L (Normal) Range: 13-56 Comments: Please note revised ALT reference range jzejcdtsx59/28/2018. ALK P 63 U/L (Normal) Range: 45-117 [...] A.D.A. criteria.Please note revised GLUCOSE reference range kyvuwxdjz96/02/2018. 6-Jtu-380027:40 CALCIFEDIOL (76825) Comments: PATIENT NOT FASTINGPERFORMED BY: [facility]6370 [facility] [id number] Vitamin D, 25-Hydroxy 31.0 ng/mL (Normal) Range: 30.0-100.0 Comments: Vitamin D deficiency has been defined by the [place] of[place]icine and an Endocrine Society practice guideline as alevel of serum 25-OH vitamin D less than 20 ng/mL (1,2).The Endocrine Society went on to further define vitamin Dinsufficiency as a level between 21 and 29 ng/mL (2).1. IOM ([place] of [employer]). 2010. Dietary reference intakes for calcium and D. [place]: The National Academies Press.2. Holick MF, Bakari NC, Vicente IZAGUIRRE, et al. Evaluation, treatment, and prevention of vitamin D deficiency: an Endocrine Society clinical practice guideline. JCEM. 2010; 96(7):1911-30. 0-Sbx-735930:20 Crystals, Body Fluid Comments: [facility] [address] [place], [place], [address] PATH REV Reviewed (Normal) Comments: Negative for malignant cells and crystals.Acute inflammation.Clinical correlation necessary.Jacinto Herrera M.D. 03/28/17 AMENDED REPORT 03/28/17 1357 PATH REV previously reported as: Will follow SOURCE/BF SYNOVIAL (Normal) CRYSTALS/BF SEE PATH REV (Normal) 7-Efx-594964:20 Culture, Body Fluid Comments: [facility] [address] [place], [place], [address] ; dr redd ALASF See Note (Normal) Comments: List Antibiotics Last 48 Hours? .List Antibiotics to be Started? .Comments: SYNOVIAL FLUID RIGHT KNEE/ CALL RESULTS OF GRAM STAIN PER IF SGram StainCentrifuged Specimen? Unable to centrifu ge specimen due to insufficient volume. Gram Stain 3+ White Blood Cells No organisms seen Body Fluid CultNO GROWTH IN 14 DAYS Cult, AnaerobicNo growth in 5 days. 7-Myo-123624:20 Synovial Fluid RBC, WBC AND Comments: [facility] [address] [place], [place], [address] ; dr rainey Diff PATH COM/SYFL May [...] RBC 0.030 {10_6/uL} (Abnormal) Comments: ADDENDA: Dr. Rainey SYN Tot Cell Ct 24.0840 {10_3_uL} (Abnormal) Range: 0.000-0.000 Comments: This is the Total Number of Nucleated Cell Types in the BodyFluid. SYNOVIAL KEVON. Cloudy (Normal) SYNOVIAL COLOR RED (Normal) Comments: YELLOW/RED SYNOVIAL SOURCE RIGHT KNEE (Normal) 90-Ggz-73182:53 CBC W/Diff, Comments: PLEASE FAX RESULTS TO [id number] PT REQUEST.[facility] [address]uzsetwhv[address] [place], [place], [address] ; dr barba Automated Absolute Lymph 0.89 [...] 4.2-5.4 WBC 6.3 K/mm3 (Normal) Range: 4.4-11.0 :53 Comprehensive Comments: PLEASE FAX RESULTS TO [id number] PT REQUEST.[facility] [address] [place], [address] Metabolic Profil GAP 10 (Normal) Range: 5-15 [...] Hemoglobin A1c Comments: PLEASE FAX RESULTS TO [id number] PT REQUEST.[facility] [address]wg[address] [place], [address] HGB A1C 6.9 % (Abnormal) Range: 4.2-6.3 :53 Lipid Profile Comments: PLEASE FAX RESULTS TO [id number] PT REQUEST.[facility] [address]xw[address] [place], [address] VLDL 29 mg/dL (Normal) Range: 5-40 LDL [...] Thyroid Stim Comments: PLEASE FAX RESULTS TO [id number] PT REQUEST.[facility] [address]nebtid[address] [place], [place], [address] Hormone (TSH) TSH 1.69 {uIU/mL} (Normal) Range: 0.358-3.74 25-Fno-772361:59 HgA1C , Office (73387) HgA1C , Office 6.4 % (Normal) Range: 4.6 - 7.1 67-Lai-770778:59 Blood Glucose , Office (50732) Blood Glucose , Office 213 (Normal) 98-Wbz-550723:27 CBC W/Diff, Automated Comments: SHARE RESULTS WITH DERRICK FOR [facility] [address]qfyxjk[address] [place], [address] Absolute Lymph 1.20 {X10_3/ul} (Normal) [...] 4.2-5.4 WBC 6.1 K/mm3 (Normal) Range: 4.4-11.0 57-Bhf-147317:27 Comprehensive Metabolic Profil Comments: SHARE RESULTS WITH DERRICK FOR [facility] Sirnsxvxhn[address] Norma [place], [place], [address] GAP 11 (Normal) Range: 5-15 CO2 23.0 [...] 200 mg/dLsuggests DIABETES MELLITUS per A.D.A. criteria. 57-Srt-462706:05 Comprehensive Metabolic Profil Comments: [facility] [address]rmil[address] [place], [address] GAP 9 (Normal) Range: 5-15 CO2 24.0 [...] 126 mg/dLsuggests DIABETES MELLITUS per A.D.A. criteria. 28-Mtz-193918:05 Hemoglobin A1c Comments: [facility] [address]efxpv[address] [facility] [address] [place], [place], [address] HGB A1C 6.7 % (Abnormal) Range: 4.2-6.3 81-Mxz-569335:05 Thyroid Stim Hormone (TSH) Comments: [facility] [address] [place], [place], [address] TSH 3.02 {uIU/mL} (Normal) Range: 0.358-3.74 22-Lwt-347937:05 Vitamin D,25 Hydroxy Comments: [facility] Y[address]psfbutec[address] [facility] [address] [place], [place], [address] Vitamin D 25-OH 23.5 ng/mL (Normal) Comments: Vitamin D 25(OH) Status Range Deficiency <20 ng/mL (50nmol/L) Insuffciency 20 - 30 ng/mL (50 - 75 nmol/L) Sufficiency 30 - 100 ng/mL (75 - 250 nmol/L) Toxicity >100 ng/mL (>250 nmol/L) :56 HgA1C , Office (91149) HgA1C , Office 6.3 % (Normal) Range: 4.6 - 7.1 :56 Blood Glucose , Office (55284) Blood Glucose , Office 194 (Normal) :37 CBC W/Diff, Automated Comments: [facility] [address] [place], [place], [address] ; another doc Absolute Lymph 1.29 {X10_3/ul} [...] 4.2-5.4 WBC 7.6 K/mm3 (Normal) Range: 4.4-11.0 :37 Comprehensive Metabolic Profil Comments: [facility] [address] [place], [place], [address] GAP 7 (Normal) Range: 5-15 CO2 29.0 [...] 126 mg/dLsuggests DIABETES MELLITUS per A.D.A. criteria. 05-Xch-15551:37 Basic Metabolic Profile Comments: Order Date: 12/03/15DRKARLA WANTS LIVER,LIPIDDR.DERRICK KEE BMPInterface Comments: 12 hours fasting, may have water.Order Date: 12/03/15[facility] [address]qsijz[address] [place], [place], [address] (BMP) GAP 4 (Abnormal) Range: 5-15 CO2 [...] criteria. :37 Lipid Profile Comments: Order Date: 12/03/15DR.NEWTON KEE LIVER,LIPIDDRVANNESSA KEE BMPInterface Comments: 12 hours fasting, may have water.Order Date: 12/03/15[facility] [address]fvy[address] [place], [address] VLDL 18 mg/dL (Normal) Range: 5-40 LDL [...] Risk :37 Liver Profile Comments: Order Date: 12/03/15DR.ZHANG WANTS LIVER,LIPIDDR.DERRICK WANTS BMPInterface Comments: 12 hours fasting, may have water.Order Date: 12/03/15[facility] [address]ynbur[address] [place], [address] D BILI 0.11 mg/dL (Normal) Range: 0.00-0.30 T BILI 0.40 mg/dL (Normal) Range: 0.20-1.00 ALT 14 U/L (Normal) Range: 12-78 ALK P 47 U/L (Normal) Range: 45-117 AST 12 U/L (Abnormal) Range: 15-37 GLOB 3.3 g/dL (Normal) Range: 2.3-3.5 ALB 2.8 g/dL (Abnormal) Range: 3.4-5.0 T PROT 6.1 g/dL (Abnormal) Range: 6.4-8.2 :40 HgA1C , Office (28993) HgA1C , Office 6.1 % (Normal) Range: 4.6 - 7.1 :40 Blood Glucose , Office (73094) Blood Glucose , Office 208 (Normal) 1-Ooj-668880:45 Culture, Body Fluid Comments: [facility] Y[address]zphre[address] [place], [place], [address] CUBF See Note (Normal) Comments: List Antibiotics Last 48 Hours? UNKList Antibiotics to be Started? UNKComments: SYNOVIAL FLUID LEFT KNEE..Gram StainCentrifuged Specimen? Culture performed on centrifuged specimen Gram Stain 3+ Red Blood Cells 1+ White Blood Cells No organisms seen Body Fluid CultNO GROWTH IN 14 DAYS Cult, AnaerobicNo growth in 5 days. 5-Khw-435935:45 Synovial Fluid RBC, WBC AND Comments: [facility] [address]se[address]zpjo[address] [place], [place], [address] Diff PATH COM/SYFL May follow (Normal) MONO [...] Yellow (Normal) SYNOVIAL SOURCE LEFT KNEE (Normal) 52-Ews-302368:21 CBC W/Diff, Automated Comments: [facility] [address]owfii[address] [place], [place], [address] Absolute Lymph 1.21 {X10_3/ul} (Normal) Range: 0.83-4.51 [...] 4.2-5.4 WBC 6.5 K/mm3 (Normal) Range: 4.4-11.0 56-Kxc-289707:21 Comprehensive Metabolic Profil Comments: [facility] Kvecgenfhj[address] [place], [place], [address] GAP 8 (Normal) Range: 5-15 CO2 23.0 [...] <126 mg/dLsuggests IMPAIRED HOMEOSTASIS per A.D.A. criteria. 9-Ygm-073171:31 CBC W/Diff, Automated Comments: [facility] [address]kctth[address] [place], [place], [address] Absolute Lymph 1.21 {X10_3/ul} (Normal) Range: 0.83-4.51 [...] 4.2-5.4 WBC 8.5 K/mm3 (Normal) Range: 4.4-11.0 3-Ffh-334148:31 Comprehensive Metabolic Profil Comments: [facility] [address]dgfbyt[address] [place], [address] GAP 9 (Normal) Range: 5-15 CO2 27.0 [...] 126 mg/dLsuggests DIABETES MELLITUS per A.D.A. criteria. 9-Zij-382733:49 Blood Glucose , Office (72751) Blood Glucose , Office 219 (Normal) 0-Tdl-395657:49 HgA1C , Office (25286) HgA1C , Office 7.5 % (Abnormal) Range: 4.6 - 7.1 40-Emz-900155:27 C-Peptide Comments: [facility] (refer to report for specific site)refer to report for address and phone number C PEPTIDE 77099 7.0 ng/mL (Abnormal) Range: 1.1-4.4 Comments: C-Peptide reference interval is for fasting patients.Performed at: [address] [id number] Director: Lex Lai PhD, Phone: [phone] 65-Xmn-151789:27 CBC W/Diff, Automated Comments: [facility] [address]flvzv[address] [place] [place], [address] ANISO 1+ (Normal) Absolute Lymph 1.45 {X10_3/ul} [...] 4.2-5.4 WBC 8.3 K/mm3 (Normal) Range: 4.4-11.0 79-Zza-179316:27 Comprehensive Metabolic Profil Comments: [facility] [address]lipq[address] [place], [place], [address] GAP 9 (Normal) Range: 5-15 CO2 25.0 [...] 126 mg/dLsuggests DIABETES MELLITUS per A.D.A. criteria. 61-Mpl-756735:27 Hemoglobin A1c Comments: [facility] Pesolvmqys0659 [facility] [place], [address] HGB A1C 7.5 % (Abnormal) Range: 4.2-6.3 85-Pcz-074272:27 Microalb:Creat Ratio,Random UR Comments: [facility] Xyytumqcwn4229 [facility] [place], [address] MALB:CREAT 6.7 {mg/g_CRE} (Normal) MICROALBUMIN,UR 9.6 mg/L (Normal) UR CREAT 144.00 mg/dL (Normal) 78-Agv-263218:27 Miscellaneous Lab Procedure Comments: Test(s) Ordered: ISLET CELL ANTIBODY [id number] SERUM/[facility] Nkrehbqdic8193 [facility] [place], [address] MIS Comments: TEST RESULT UNITS REFERENCE INTERVALAntipancreatic Islet Cells Negative Neg:<1:1 TEST LAB (Normal) ING PERFORMED AT [facility]. ORIGINAL REPORT ON FILE IN LAB CONTAINS ADDITIONAL TEST SITE INFORMATION. TEST 13-Tsh-961194:25 HAPTOGLOBIN (04405) Comments: PATIENT NOT FASTINGPERFORMED BY: [facility]6370 [facility] [id number] Haptoglobin 259 mg/dL (Abnormal) Range: 34-200 29-Zwr-079237:25 SPEP (64416) Comments: PATIENT NOT FASTINGPERFORMED BY: [facility]6370 [facility] [id number] Please note: SPRCS (Normal) Comments: Protein electrophoresis scan will follow via computer, mail, orcourier delivery. A/G Ratio 0.9 (Normal) Range: 0.7-1.7 Globulin, Total 3.4 g/dL (Normal) Range: 2.2-3.9 M-Anam Not Observed g/dL (Normal) Gamma Globulin 0.8 g/dL (Normal) Range: 0.4-1.8 Beta Globulin 1.2 g/dL (Normal) Range: 0.7-1.3 Tqnsb-1-Pzvuhgyd 1.1 g/dL (Abnormal) Range: 0.4-1.0 Wlwck-6-Yvautepv 0.3 g/dL (Normal) Range: 0.0-0.4 Albumin 3.2 g/dL (Normal) Range: 2.9-4.4 Protein, Total, Serum 6.6 g/dL (Normal) Range: 6.0-8.5 40-Ddc-908617:25 UPEP (16958) Comments: PATIENT NOT FASTINGPERFORMED BY: [facility]6370 [facility] [id number] Please note: SPRCS (Normal) Comments: Protein electrophoresis scan will follow via computer, mail, orcourier delivery. M-Anam, % Not Observed % (Normal) Gamma Globulin, U 10.2 % (Normal) Beta Globulin, U 22.4 % (Normal) Jooug-7-Dzjqqzzu, U 9.8 % (Normal) Eadyh-6-Twaymlex, U 1.8 % (Normal) Albumin, U 55.8 % (Normal) Protein,Total,Urine 42.4 mg/dL (Normal) 64-Qje-762121:25 RETICULOCYTE COUNT MANUL Comments: PATIENT NOT FASTINGPERFORMED BY: [facility] Duzqyb1064 [facility] [id number] (85067) Reticulocyte Count 2.0 % (Normal) Range: 0.6-2.6 05-Anr-007017:25 IRON BINDING CAPACITY (TIBC) Comments: PATIENT NOT FASTINGPERFORMED BY: [facility] Ibhosk4717 [facility] [id number] (86969) Iron Saturation 4 % (Abnormal) Range: 15-55 Iron, Serum 14 ug/dL (Abnormal) Range: 27-139 UIBC 372 ug/dL (Abnormal) Range: 118-369 Iron Bind.Cap.(TIBC) 386 ug/dL (Normal) Range: 250-450 17-Bpa-176252:25 FERRITIN (95427) Comments: PATIENT NOT FASTINGPERFORMED BY: [facility] Rwcbac9192 [facility] [id number] Ferritin, Serum 19 ng/mL (Normal) Range: 15-150 58-Lco-082807:25 CBC, PLATELETS & AUT DIFF Comments: PATIENT NOT FASTINGPERFORMED BY: [facility] Bcxinw2982 [facility] [id number] Information: [id number] (63908) Immature Grans (Abs) 0.0 {x10E3/uL} (Normal) Range: [...] (Normal) Range: 3.4-10.8 :32 HgA1C , Office (94617) HgA1C , Office 8.2 % (Abnormal) Range: 4.6 - 7.1 :16 CBC W/Diff, Automated Comments: DR.N THOMAS ORDERED TSH LIPID VITD CBCD B12 FOLOTES CMP MIACRE ORDERED LIPID LIVERDR.MARYAM ORDERED CMP [facility]CDWC[facility] Xncrrwulit4281 [facility] [place], [place], [phone] OVALOCYTE 1+ (Normal) BASO STIP RARE (Normal) [...] 4.2-5.4 WBC 7.6 K/mm3 (Normal) Range: 4.4-11.0 01-Dec-20159:16 Comprehensive Metabolic Profil Comments: DR.N THOMAS ORDERED TSH LIPID VITD CBCD B12 FOLOTES CMP MIACREDR.VICENTE ORDERED LIPID LIVERDR.MARYAM ORDERED CMP CBCDIs Patient Taking Vitamins or Folic Acid Supplements? [facility] [place], [address] GAP 9 (Normal) Range: 5-15 CO2 26.0 [...] Patient Taking Vitamins or Folic Acid Supplements? [place] [address] [place], [place], [address] FOLATES 11.20 ng/mL (Normal) Range: 3.1-17.5 :16 Lipid Profile Comments: DR.N THOMAS ORDERED TSH LIPID VITD CBCD B12 FOLOTES CMP LUCÍA ORDERED LIPID LIVERDR.VELLANMÓNICA ORDERED CMP CBCDIs Patient Taking Vitamins or Folic Acid Supplements? [facility] [place], [address] VLDL 32 mg/dL (Normal) Range: 5-40 LDL [...] ORDERED TSH LIPID VITD CBCD B12 FOLOTES [facility] LUCÍA ORDERED LIPID LIVERDR.MARYAM ORDERED [facility] CBCDOhio[facility] Uiokyaaaox0174 [facility]. [place], [place], [address] MALB:CREAT 7.5 {mg/g_CRE} (Normal) MICROALBUMIN,UR 10.1 mg/L (Normal) UR CREAT 135.00 mg/dL (Normal) :16 Thyroid Stim Hormone (TSH) Comments: DR.N THOMAS ORDERED TSH LIPID VITD CBCD B12 FOLOTES [facility] LUCÍA ORDERED LIPID LIVERDR.MARYAM ORDERED [facility] CBCDIs Patient Taking Vitamins or Folic Acid Supplements? [facility] [place] ngcssbec4057 [facility] [place], [place], [address] TSH 1.90 {uIU/mL} (Normal) Range: 0.358-3.74 :16 Vitamin B12 324 pg/mL (Normal) Comments: DR.N THOMAS ORDERED TSH LIPID VITD CBCD B12 FOLOTES [facility] LUCÍA ORDERED LIPID LIVERDR.MARYAM ORDERED [facility] CBCDOhio[facility] [address]fsinnl[address] [place], [place], [address] Range: 211-911 :16 Vitamin D,25 Hydroxy Comments: DR.N THOMAS ORDERED TSH LIPID VITD CBCD B12 FOLOTES [facility] LUCÍA ORDERED LIPID LIVERDR.JOHNLANKI ORDERED CMP [facility]WC[facility] [address]yhaydlw[address] [place], [phone] Vitamin D 25-OH 24.7 ng/mL (Normal) Comments: Vitamin D 25(OH) Status Range Deficiency <20 ng/mL (50nmol/L) Insuffciency 20 - 30 ng/mL (50 - 75 nmol/L) Sufficiency 30 - 100 ng/mL (75 - 250 nmol/L) Toxicity >100 ng/mL (>250 nmol/L) 5-Zxh-576636:25 OVA & PARASITE DIR SMEAR Comments: PATIENT NOT FASTINGPERFORMED BY: [facility] [place] [id number] (57454) Result 1 NOCP (Normal) Comments: No ova, cysts, or parasites seen. Ova + Parasite Exam Final report (Normal) Comments: These results were obtained using wet preparation(s) and trichromestained smear. This test does not include testing for Cryptosporidiumparvum, Cyclospora, or Microsporidia. 7-Wvh-672389:25 OCCULT BLOOD FECES SCREEN Comments: PATIENT NOT FASTINGPERFORMED BY: [employer] Onmwxi2836 [employer] [id number] ([id number]) Occult Blood, Fecal, IA Positive (Abnormal) 2-Our-257549:25 LEUKOCYTE COUNT, FECAL (33554) Comments: PATIENT NOT FASTINGPERFORMED BY: [employer] [id number] [employer] [id number] Result 1 NWBC (Normal) Comments: No white blood cells seen. White Blood Cells (WBC), Final report (Normal) Stool 2-Rbz-540495:24 C-DIFFICILE, STOOL (53172) Comments: PATIENT NOT FASTINGPERFORMED BY: [employer] [facility] [id number] [place] [id number] Information: [id number] C difficile Toxins A+B, EIA Negative (Normal) 1-Kip-771990:25 LAINE CULTURE-STOOL (03043) Comments: PATIENT NOT FASTINGPERFORMED BY: [employer] [facility] [id number] [facility] [id number] Information: SRC:STL [id number] E coli Shiga Toxin EIA Negative (Normal) Result 1 NCI (Normal) Comments: No Campylobacter species isolated. Campylobacter Culture Final report (Normal) Result 1 NSS (Normal) Comments: No Salmonella or Shigella recovered. Salmonella/Shigella Screen Final report (Normal) :22 Blood Glucose , Office (29450) Blood Glucose , Office 191 (Normal) :22 HgA1C , Office (50370) HgA1C , Office 7.4 % (Abnormal) Range: 4.6 - 7.1 :19 CBC W/Diff, Automated Comments: [facility] Zrlimfbxhr3[address]. [place], [place], [id number] Absolute Lymph 1.86 {X10_3/ul} (Normal) Range: 0.83-4.51 [...] 4.2-5.4 WBC 8.4 K/mm3 (Normal) Range: 4.4-11.0 3-Wet-402639:19 Comprehensive Metabolic Profil Comments: [facility] Begbzrbbjd27[address] [place], [address] GAP 10 (Normal) Range: 5-15 CO2 24.0 [...] 126 mg/dLsuggests DIABETES MELLITUS per A.D.A. criteria. 35-Cnq-164299:50 CALCIFEDIOL (20639) Comments: PATIENT NOT FASTINGPERFORMED BY: [facility] Obfsej7005 [facility] [id number] Vitamin D, 25-Hydroxy 20.8 ng/mL (Abnormal) Range: 30.0-100.0 Comments: Vitamin D deficiency has been defined by the [place] of[place]icine and an Endocrine Society practice guideline as alevel of serum 25-OH vitamin D less than 20 ng/mL (1,2).The Endocrine Society went on to further define vitamin Dinsufficiency as a level between 21 and 29 ng/mL (2).1. IOM ([place] of Medicine). 2010. Dietary reference intakes for calcium and D. [place]: The National Academies Press.2. Brandon MF, Bakari BOYD, Vicente IZAGUIRRE, et al. Evaluation, treatment, and prevention of vitamin D deficiency: an Endocrine Society clinical practice guideline. JCEM. 2010; 96(7):1911-30. 02-Tph-973667:50 POTASSIUM SERUM (44734) Comments: PATIENT NOT FASTINGPERFORMED BY: StreetHawkPascack Valley Medical CenterLdbfkp7890 Forrest TextCornerCar[facility] [id number] Potassium, Serum 5.4 mmol/L (Abnormal) Range: 3.5-5.2 01-Egi-673680:50 MAGNESIUM (86387) Comments: PATIENT NOT FASTINGPERFORMED BY: LabCoPascack Valley Medical CenterQicykq3888 [facility] HospitalDublin [place] [id number] Magnesium, Serum 1.8 mg/dL (Normal) Range: 1.6-2.3 23-Xvk-061445:50 AMMONIA (27103) Comments: PATIENT NOT FASTINGPERFORMED BY: [place] 041667 [facility][1] [id number] BY: [facility] Tzjsnb9741 Forrest [facility] HospitalDublin [place] [id number] Ammonia, Plasma 40 ug/dL (Normal) Range: 19-87 66-Ksy-952883:50 SPEP (02322) Comments: PATIENT NOT FASTINGPERFORMED BY: [facility] Qbxavt5230 [facility] HospitalDublin [place] [id number] Information: [id number] Please note: SPRCS (Normal) Comments: Protein electrophoresis scan will follow via computer, mail, orcourier delivery. A/G Ratio 1.2 (Normal) Range: 0.7-2.0 Globulin, Total 3.0 g/dL (Normal) Range: 2.0-4.5 M-Anam Comment: g/dL (Normal) Comments: [facility] Gamma Globulin 0.6 g/dL (Normal) Range: 0.5-1.6 Beta Globulin 1.0 g/dL (Normal) Range: 0.6-1.3 Htalj-4-Ewlxejud 1.1 g/dL (Normal) Range: 0.4-1.2 Fgrqs-3-Jookgbeg 0.3 g/dL (Normal) Range: 0.1-0.4 Albumin 3.5 g/dL (Normal) Range: 3.2-5.6 Protein, Total, Serum 6.5 g/dL (Normal) Range: 6.0-8.5 31-Uks-670324:54 CREATININE CLEARANCE Comments: PATIENT NOT FASTINGPERFORMED BY: Huxiu.comCaroMont [facility] Center [id number] Information: [id number] START 07/18/15@630A M FINISH 07/18@7AM (12664) Creatinine Clearance 57 mL/min (Abnormal) Range: 88-128 [...] Creatinine, Serum 0.75 mg/dL (Normal) Range: 0.57-1.00 51-Vdh-059448:54 Total Protein,24 Hour Urine Comments: PATIENT NOT FASTINGPERFORMED BY: [employer]6[address] [facility] [id number]; has fu 4-28 (91077) Prot,24hr calculated 354.6 {mg/24_hr} (Abnormal) Range: 30.0-150.0 Protein,Total,Urine 39.4 mg/dL (Abnormal) Range: 0.0-15.0 Comments: Effective August 02, 2015 the reference interval for Protein, Total, Urine will be changing to: Not Estab. 58-Zqc-797195:45 URINE VMA (58085) Comments: 24 hour urine; PATIENT NOT FASTINGPERFORMED BY: StreetHawk[address] [id number] VMA, Urine, 24hr 2.3 {mg/24_hr} (Normal) Range: 0.0-7.5 VMA, Urine 3.3 mg/L (Normal) 64-Oby-806125:50 RENIN (27231) Comments: PATIENT NOT FASTINGPERFORMED BY: StreetHawk[address] [id number] BY: MetasetUniversity Of Michigan Health6370 [facility] [id number] Information: [id number] Renin Activity, Plasma 1.17 {ng/mL/hr} (Normal) Comments: Adult Normal Salt Intake: Upright 1.31 - 3.95 Supine 0.15 - 2. 33 . Salt Excretion (Na mEq/24 hr): Na= 0 - 30 8.82 - 23.86 Na= 30 - 75 4.09 - 7.73 Na= 75 - 150 1.44 - 2.80 Na= >150 0.39 - 1.31 45-Khp-277601:45 METANEPHRINES - URINE (86021) Comments: PATIENT NOT FASTINGPERFORMED BY: StreetHawk[address] [id number] Metanephrine, U,24hr 50 {ug/24_hr} (Normal) Range: 45-290 Comments: (Hypertensive) >17 years 11 months: 35 - 460 Metanephrine, Ur 71 ug/L (Normal) Normetanephr.,U,24h 319 {ug/24_hr} (Normal) Range: 82-500 Comments: (Hypertensive) >17 years 11 months: 110 - 1050 Normetanephrine, Ur 455 ug/L (Normal) 86-Dxh-289388:45 CATECHOLAMINES TOTAL, URINE Comments: PATIENT NOT FASTINGPERFORMED BY: LabCo[address] [id number] Information: SRC:UR [id number] START 07/20@9AM JENNIE CRUZ (87396) Dopamine, Ur, 24hr 90 {ug/24_hr} (Normal) Range: 0-510 Dopamine, Urine 128 ug/L (Normal) Norepinephrine,U,24h 48 {ug/24_hr} (Normal) Range: 0-135 Norepinephrine, Ur 68 ug/L (Normal) Epinephrine, U, 24hr 1 {ug/24_hr} (Normal) Range: 0-20 Epinephrine, Urine 2 ug/L (Normal) :50 HgA1C , Office (64091) HgA1C , Office 7.7 % (Abnormal) Range: 4.6 - 7.1 :20 CBC W/Diff, Automated Comments: [facility] Yiwpwzzgny0548 [place], [place], [address] Absolute Lymph 1.40 {X10_3/ul} (Normal) Range: 0.83-4.51 [...] 4.2-5.4 WBC 7.2 K/mm3 (Normal) Range: 4.4-11.0 :20 Comprehensive Metabolic Profil Comments: [facility] Amlhsbicbf2604 [address] [place], [place], [id number] GAP 8 (Normal) Range: 5-15 CO2 26.0 [...] 200 mg/dLsuggests DIABETES MELLITUS per A.D.A. criteria. 35-Glf-223989:49 HgA1C , Office (55976) HgA1C , Office 6.6 % (Normal) Range: 4.6 - 7.1 2-Isd-503717:04 CBC W/Diff, Automated Comments: [facility] Sw[address] [place], [place], [address] Absolute Lymph 1.54 {X10_3/ul} (Normal) Range: 0.83-4.51 [...] 4.2-5.4 WBC 9.0 K/mm3 (Normal) Range: 4.4-11.0 9-Uen-238485:04 Comprehensive Metabolic Profil Comments: [facility] Szclqmyrdz23[address]. [place], [place], [id number] GAP 11 (Normal) Range: 5-15 CO2 24.0 [...] <126 mg/dLsuggests IMPAIRED HOMEOSTASIS per A.D.A. criteria. 34-Zwa-39840:10 Basic Metabolic Profile (BMP) Comments: Serial Specimen #1, #2 or #3? 1'TROP' Serial specimen #1, #2, #3, or #4: 1[facility] Plhgyxhwdi2741 [address]. [place], [place], [address] GAP 9 (Normal) Range: 5-15 CO2 26.0 [...] 126 mg/dLsuggests DIABETES MELLITUS per A.D.A. criteria. 12-Mvd-53199:10 Carboxyhemoglobin Frac (CO) Comments: [facility] Bmkmokziai9731 [facility]. [place], [place], [id number](103) COHb 1.3 % (Normal) Range: 0.0-1.5 Comments: * NON-SMOKER RANGE 1.6 - 5.0% * LIGHT SMOKER RANGE 5.1 - 9.0% * HEAVY SMOKER RANGE :10 CBC W/Diff, Automated Comments: [facility] Lygbvjmkkf6415 [facility]. [place], [place], [phone] Absolute Lymph 0.87 {X10_3/ul} (Normal) Range: 0.83-4.51 [...] Serial specimen #1, #2, #3, or #4: [address] [place] [address] Rknttlglhg1560 [place], [address] CKRI 1.9 % (Abnormal) Range: 0.0-1.4 Comments: RELATIVE INDEX >1.5% IS PRESUMPTIVELY POSITIVE CPKMB 1.0 ng/mL (Normal) Range: 0.0-5.0 Comments: CK-MB and RI Interpretation MB Relative Index Non-AMI <or= 5 NA Indeterminate > 5 <or= 4 AMI > 5 > 4 CPK TOTAL 53 U/L (Normal) Range: 26-192 29-Dmw-73816:10 Troponin-I Comments: Serial Specimen #1, #2 or #3? 1'TROP' Serial specimen #1, #2, #3, or #4: [address] [place] [address] Evgrhxcuiz7795 [facility] [place], [address] TROPONIN-I 0.03 ng/mL (Normal) Comments: TROPONIN-I EXPECTED VALUES <0.05 NEGATIVE 0.06 - 0.59 AT RISK OF VA > OR = 0.60 SUGGEST VA 9-Rmk-804179:28 CBC W/Diff, Automated Comments: Test performed at:[facility] Pggmieprph6[address] [place] [address] Absolute Lymph 1.31 {X10_3/ul} (Normal) [...] 4.2-5.4 WBC 6.4 K/mm3 (Normal) Range: 4.4-11.0 1-Bly-566413:28 Comprehensive Metabolic Profil Comments: Test performed at:[facility] Lkugifcjvy8628 [place] [address] GAP 7 (Normal) Range: 5-15 CO2 30.0 [...] Comments: Please note revised CREATININE reference range bzgynevbv06/22/2015. BUN 14 mg/dL (Normal) Range: 7-18 GLU 145 mg/dL (Abnormal) Range: 70-110 Comments: Fasting Glucose result greater than or equal to 126 mg/dLsuggests DIABETES MELLITUS per A.D.A. criteria. :17 HgA1C , Office (55243) HgA1C , Office 6.2 % (Normal) Range: 4.6 - 7.1 :34 CBC W/Diff, Automated Comments: Test performed at:[facility] Qdbyhevcjb3306 [place] [address] Absolute Lymph 0.90 {X10_3/ul} (Normal) Range: 0.83-4.51 [...] 4.2-5.4 WBC 5.2 K/mm3 (Normal) Range: 4.4-11.0 5-Pwg-116811:34 Comprehensive Metabolic Profil Comments: Test performed at:[facility] Dvvfvqalht7196 [place] [address] GAP 7 (Normal) Range: 5-15 CO2 28.0 [...] <126 mg/dLsuggests IMPAIRED HOMEOSTASIS per A.D.A. criteria. 4-Vlo-727680:34 Lipid Profile Comments: Test performed at:[facility] H[address] [place] [address] VLDL 33 mg/dL (Normal) Range: 5-40 LDL [...] 200-240 mg/dL Borderline >240 mg/dL High Risk 8-Baf-182339:34 Thyroid Stim Hormone (TSH) Comments: Test performed at:[facility] Enqooomcb[address] [place] [address] TSH 2.56 {uIU/mL} (Normal) Range: 0.358-3.74 31-Rjq-800096:02 CBC W/Diff, Automated Comments: Test performed at:[facility] Orxarfsdgp[address] [place] [address] Absolute Lymph 1.28 {X10_3/ul} (Normal) Range: 0.83-4.51 [...] 4.2-5.4 WBC 6.1 K/mm3 (Normal) Range: 4.4-11.0 67-Twc-108474:02 Comprehensive Metabolic Profil Comments: Test performed at:[facility] Xkexfpclig4054 Norma [place], [place] [address] GAP 9 (Normal) Range: 5-15 CO2 28.0 [...] per A.D.A. criteria. :47 HgA1C , Office (63323) HgA1C , Office 5.7 % (Normal) Range: 4.6 - 7.1 :47 Blood Glucose , Office (60818) Blood Glucose , Office 132 (Normal) :39 CBC W/Diff, Automated Comments: Test performed at:[facility] Qtaduhofvw3962 [place] [address] Absolute Lymph 1.14 {X10_3/ul} (Normal) Range: 0.83-4.51 [...] 4.2-5.4 WBC 6.0 K/mm3 (Normal) Range: 4.4-11.0 85-Tze-516785:39 Comprehensive Metabolic Profil Comments: Test performed at:[facility] Ehttwfjlgw00[address] [place], [place] [address] GAP 7 (Normal) Range: 5-15 CO2 27.0 [...] 7-18 GLU 100 mg/dL (Normal) Range: 70-110 9-Lho-873288:38 TSH (66604) Comments: PATIENT NOT FASTINGPERFORMED BY: [facility] Vsrasp3263 [facility] [id number] TSH 4.120 {uIU/mL} (Normal) Range: 0.450-4.500 5-Qgc-895479:11 URINE LAINE CULTURE-IDENTIFICATN Comments: PATIENT NOT FASTINGPERFORMED BY: [facility]University [facility]6370 [facility] [id number] (52013) Antimicrobial MIHEAD (Normal) Comments: S = Susceptible; [...] primarily for treating urinary tract infections. (CLSI, Y870-X28,2009) Result 1 ECV (Abnormal) Comments: Escherichia coli, identified by an automated biochemical system.1,000 Colonies/mLProteus mirabilis/penneri1,000 Colonies/mL Urine Final report Culture,Comprehensive (Abnormal) 7-Ffl-850111:11 URINALYSIS (44646) Comments: PATIENT NOT FASTINGPERFORMED BY: [facility]6370 [facility] [id number] Information: [id number] Microscopic Examination MICNIP (Normal) Comments: Microscopic not indicated and not performed. Nitrite, Urine Negative (Normal) Urobilinogen,Semi-Qn 0.2 mg/dL (Normal) Range: 0.0-1.9 Bilirubin Negative (Normal) Occult Blood Negative (Normal) Ketones Negative (Normal) Glucose Negative (Normal) Protein Negative (Normal) WBC Esterase Negative (Normal) Appearance Clear (Normal) Urine-Color Yellow (Normal) pH 6.0 (Normal) Range: 5.0-7.5 Specific Anderson 1.021 (Normal) Range: 1.005-1.030 :38 CBC, Platelets & Auto Diff Comments: PATIENT NOT FASTINGPERFORMED BY: StreetHawkPascack Valley Medical CenterLceixo9930 [facility] [id number] Information: [id number] (64514) Immature Grans (Abs) 0.0 {x10E3/uL} (Normal) Range: [...] 6.5 {x10E3/uL} (Normal) Range: 3.4-10.8 :38 Lipase (38161) Comments: PATIENT NOT FASTINGPERFORMED BY: StreetHawkPascack Valley Medical CenterRkmnrk0899 [facility] [id number] Lipase, Serum 19 U/L (Normal) Range: 0-59 :38 Amylase (05469) Comments: PATIENT NOT FASTINGPERFORMED BY: [facility]6370 [facility] [id number] Amylase, Serum 32 U/L (Normal) Range: 31-124 7-Ahd-097475:38 Metabolic Panel, Comprehensive Comments: PATIENT NOT FASTINGPERFORMED BY: [facility]6370 [facility] [id number] (17601) ALT (SGPT) 17 [iU]/L (Normal) Range: 0-32 [...] (Abnormal) Range: 65-99 :28 HgA1C , Office (90640) HgA1C , Office 7.9 % (Abnormal) Range: 4.6 - 7.1 :28 Blood Glucose , Office (61422) Blood Glucose , Office 170 (Normal) :05 HgA1C , Office (33894) HgA1C , Office 7.5 % (Abnormal) Range: 4.6 - 7.1 :05 Blood Glucose , Office (97527) Blood Glucose , Office 267 (Normal) :19 CBCD Comments: DR FRANCISCO ORDERED CMP CBCDDR [...] 4.2-5.4 WBC 6.4 K/mm3 (Normal) Range: 4.4-11.0 :19 CMP Comments: DR FRANCISCO ORDERED CMP CBCDDR BONEZZZeny ORDERED CMP CBCD GAP 7 (Normal) Range: [...] 200 mg/dLsuggests DIABETES MELLITUS per A.D.A. criteria. 1-Bro-299529:19 TSH 2.09 {uIU/mL} (Normal) Comments: DR FRANCISCO ORDERED CMP CBCDDR BONEZZZeny ORDERED CMP CBCD Range: 0.358-3.74 :03 HgA1C , Office (06870) HgA1C , Office 9.1 % (Abnormal) Range: 4.6 - 7.1 :03 Blood Glucose , Office (54592) Blood Glucose , Office 136 (Normal) 09-Xbi-082037:22 Blood Glucose , Office (15995) Blood Glucose , Office 204 (Normal) 07-Lgl-530141:21 HgA1C , Office (76323) HgA1C , Office 7.3 % (Abnormal) Range: 4.6 - 7.1 :45 HgA1C , Office (47857) HgA1C , Office 7.3 % (Abnormal) Range: 4.6 - 7.1 :45 Blood Glucose , Office (76114) Blood Glucose , Office 176 (Normal) Comments: [...] 4.2-5.4 WBC 6.0 K/mm3 (Normal) Range: 4.4-11.0 :26 CMP GAP 8 (Normal) Range: 5-15 CO2 [...] 126 mg/dLsuggests DIABETES MELLITUS per A.D.A. criteria. 38-Yem-195201:33 HgA1C , Office (49186) HgA1C , Office 7.1 % (Normal) Range: 4.6 - 7.1 55-Hgt-824083:33 Blood Glucose , Office (93178) Blood Glucose , Office 127 (Normal) 47-Run-260003:40 CBC With Differential/Platelet Comments: PERFORMED BY: [facility]6370 [facility] [id number] Immature Grans (Abs) 0.0 {x10E3/uL} (Normal) Range: [...] 3.77-5.28 WBC 6.2 {x10E3/uL} (Normal) Range: 4.0-10.5 74-Pkb-718663:40 Comp. Metabolic Panel (14) Comments: PERFORMED BY: LabCoPascack [facility] Medical CenterCzqbvv7299 [facility] [id number] ALT (SGPT) 24 [iU]/L (Normal) Range: 0-32 [...] (Abnormal) TSH 3.580 {uIU/mL} Comments: PERFORMED BY: [employer]70 [facility] [id number] :40 (Normal) Range: 0.450-4.500 :38 PREALBUMIN (09849) Comments: PATIENT NOT FASTINGPERFORMED BY: [employer] [facility] Qgssvm8153 [facility] [id number] Information: ADD [id number] AND DRAW FEE 99 6660 Prealbumin 21 mg/dL (Normal) Range: 20-40 :35 HgA1C , Office (32996) HgA1C , Office 7.3 % (Abnormal) Range: 4.6 - 7.1 :01 HgA1C , Office (35696) HgA1C , Office 7.4 % (Abnormal) Range: 4.6 - 7.1 88-Bvc-410904:46 HgA1C , Office (70198) HgA1C , Office 7.3 % (Abnormal) Range: 4.6 - 7.1 :46 Blood Glucose , Office (83138) Blood Glucose , Office 193 (Normal) :12 HgA1C , Office (06688) HgA1C , Office 6.7 % (Normal) Range: 4.6 - 7.1 64-Pgh-451044:12 Blood Glucose , Office (92309) Blood Glucose , Office 103 (Normal) 12-Ggo-161851:26 CBCMD RBCM NORM C+C {NORMAL} (Normal) PE [...] 4.2-5.4 WBC 7.2 K/mm3 (Normal) Range: 4.4-11.0 80-Frc-248751:26 CMP GAP 8 (Normal) Range: 5-15 CO2 [...] 7-18 GLU 80 mg/dL (Normal) Range: 70-110 59-Ojj-848740:26 LIPID VLDL 12 mg/dL (Normal) Range: 5-40 [...] Very High > or = 500 mg/dL :26 MIACRE tMICROCREAT 14.2 {mg/g_CRE} (Normal) MIALB 10.9 mg/L (Normal) CREU 76.7 mg/dL (Normal) 35-Ups-084780:21 HgA1C , Office (21234) HgA1C , Office 6.7 % (Normal) Range: 4.6 - 7.1 :21 Blood Glucose , Office (68322) Blood Glucose , Office 88 (Normal) 1-Nbz-476227:06 CBCD SMEAR COMMENT SeeNote (Normal) Comments: Result: [...] 200 mg/dLsuggests DIABETES MELLITUS per A.D.A. criteria. :06 FERRITIN 88 ng/mL (Normal) Range: 8-252 :30 HgA1C , Office (98798) HgA1C , Office 8.4 % (Abnormal) Range: 4.6 - 7.1 90-Pzu-051495:30 Blood Glucose , Office (57850) Blood Glucose , Office 232 (Normal) 12-Tom-464396:39 HgA1C , Office (20339) HgA1C , Office 8.2 % (Abnormal) Range: 4.6 - 7.1 70-Jmn-706400:39 Blood Glucose , Office (17932) Blood Glucose , Office 181 (Normal) 18-Vmk-703434:20 CBCD,SMEAR DIFF Comments: ORDERED CBCD,CMPDR.ROSELYN ORDERED CBCMD,LIPID,CMP,MICROALB RED CELL MORPH SeeNote {NORMAL} [...] 4.2-5.4 WBC 6.8 K/mm3 (Normal) Range: 4.4-11.0 :20 COMP METABOLIC Comments: ORDERED CBCD,CMPDRLAWANDA ORDERED CBCMD,LIPID,CMP,MICROALB GAP 9 (Normal) Range: 5-15 [...] mg/dL suggests DIABETES MELLITUS per A.D.A. criteria. 36-Lzl-529400:20 LIPID Comments: ORDERED CBCD,CMPDRLAWANDA ORDERED CBCMD,LIPID,CMP,MICROALB LDL 72 mg/dL (Normal) Range: [...] 200-240 mg/dL Borderline >240 mg/dL High Risk 21-Frh-713266:04 Blood Glucose , Office (06241) Blood Glucose , Office 244 (Normal) 32-Gqp-632795:36 HgA1C , Office (46566) HgA1C , Office 7.5 % (Abnormal) Range: 4.6 - 7.1 88-Rph-443561:36 Blood Glucose , Office (84722) Blood Glucose , Office 178 (Normal) 19-Bzb-613249:24 HgA1C , Office (66846) HgA1C , Office 6.8 % (Normal) Range: 4.6 - 7.1 89-Wkg-881357:24 Blood Glucose , Office (37970) Blood Glucose , Office 141 (Normal) Comments: [...] 4.2-5.4 WBC 5.6 K/mm3 (Normal) Range: 4.4-11.0 :58 COMP METABOLIC Comments: DR DEMPSEY ORDERED LIPID DR FRANCISCO ORDERED CBCDBOTH DRS ORDERED CMP CO2 30.0 mmol/L (Normal) Range: [...] mg/dL suggests DIABETES MELLITUS per A.D.A. criteria. 21-Rgl-310188:58 LIPID Comments: DR DEMPSEY ORDERED LIPID DR FRANCISCO ORDERED CBCDBOTH DRS ORDERED CMP LDL 82 mg/dL (Normal) Range: [...] mg/dL High Risk :02 HgA1C , Office (60664) HgA1C , Office 6.9 % (Normal) Range: 4.6 - 7.1 :02 Blood Glucose , Office (69388) Blood Glucose , Office 251 (Normal) :11 CBCD SMEAR COMMENT COMMENT (Normal) Comments: 3+ [...] 126 mg/dLsuggests DIABETES MELLITUS per A.D.A. criteria. :54 DOT DIR SEMI-QL DOT DIRECT 52 AU/mL (Normal) :54 ANTI-CCP 270089 > 250 {units} Range: 0-19 (Abnormal) Comments: Negative <20Weak positive 20 - 39Moderate positive 40 - 59Strong positive >59 :54 C-REACTIVE PROT 23.90 mg/L (Abnormal) Range: 0.0-3.0 Comments: C-Reactive Protein (CRP) provides useful information for thediagnosis, therapy and monitoring of inflammatory processesand associated diseases. For the evaluation of Relative Riskfor Cardiovascular Dise ase, a High Sensitivity CRP (HSCRP)should be ordered. :54 CBCD SMEAR COMMENT SeeNote (Normal) Comments: Result: [...] 11.6-14.6 WBC 10.3 K/mm3 (Normal) Range: 4.4-11.0 :54 COMP METABOLIC ALK P 87 U/L (Normal) [...] mm/h (Abnormal) Range: 0-30 :54 HB CORE [id number] SeeNote (Normal) Comments: Result: NegativePerformed at: [facility] StreetHawk[address] [id number] Director: Yasmine Cabrera MD, Phone: [phone] at: [facility] StreetHawk[address] [id number] Director: Jovani Odom MD, Phone: [phone] :54 HBsAg 6510 HB SURF AG 6510 SeeNote (Normal) Comments: Result: Negative :54 HEBSAB 6395 < 0.1 (Normal) Range: 0.00-0.99 Comments: Status of Immunity Anti-HBs Level Inconsistent with Immunity 0.00 - 0.99Consistent with Immunity >0.99.An Index Value of 1.00 is equivalent to 10 mIU/mL.However the magnitude of the Index Value is notindicative of the total amount of antibody present. :54 HEP C AB 285933 <0.1 (Normal) Range: 0.0-0.9 Comments: Negative: < 0.8Indeterminate 0.8 - 0.9Positive: > 0.9.In order to reduce the incidence of a false positiveresult, the CDC recommends that all s/co ratiosbetween 1.0 and 10.9 be confirmed with additionalRIBA or PCR testing. :54 RHEUMATOID FAC 539.0 {IU/mL} (Abnormal) :54 VIT D,25 58312 27.3 ng/mL (Abnormal) Range: 32.0-100.0 Comments: Recent studies consider the lower limit of 32.0 ng/mL to gloria threshold for optimal health.Alexander MARY. J Nutr. 2004;135(2):317-22. 74-Con-905690:30 HAND,MIN 3 VIEWS (MT) Radiology Report See Note (Normal) Comments: Exam Number: [id number] CLINICAL:This a 64-year-old female patient with history of pain. X-RAY EXAMINATION RIGHT HAND TECHNIQUE:Three views of the hand. COMPARISON:None. FINDINGS:Normal visualized carpal bones. Normal metacarpal bones. Normal visualized phalanges. Normal carpal articulations. Normal metacarpophalangeal joints. There are degenerative changesof the interphalangeal joints. There is no d emonstrated soft tissue swelling. IMPRESSION:Chronic degenerative changes, as discussed above. Reported By: VIDHYA NORRIS 00-Yms-121696:29 HAND,MIN 3 VIEWS (MT) Radiology Report See Note (Normal) Comments: Exam Number: [id number] CLINICAL:This is a 64-year-old female patient with [...] egenerative changes, as discussed above. Reported By: VIDHYA NORRIS 97-Iah-200911:45 Anti-dsDNA Antibodies Comments: PATIENT WAS FASTINGPERFORMED BY: CB [facility] Gvowks3622 [facility] [id number] BY: [address] [id number] Anti-DNA (DS) Ab Qn 1 {IU/mL} (Normal) Range: 0-9 Comments: Negative <5Equivocal 5 - 9Positive >9 86-Kjw-319917:45 Antinuclear Antibodies Comments: PATIENT WAS FASTINGPERFORMED BY: StreetHawk[address] [id number] BY: [address] [id number] Direct DOT Direct Negative (Normal) C-Reactive Protein, 5.1 mg/L (Abnormal) Comments: PATIENT WAS FASTINGPERFORMED BY: StreetHawk[address] [id number] BY: [address] [id number] :45 Quant Range: 0.0-4.9 76-Qlc-101093:45 CBC With Differential/Platelet Comments: PATIENT WAS FASTINGPERFORMED BY: StreetHawk[address] [id number] BY: [address] [id number] Hematology Comments: Note: (Normal) Comments: Verified by [...] >250 {units} Comments: PATIENT WAS FASTINGPERFORMED BY: [employer] [id number] BY: [employer] [id number] 3:45 (Abnormal) Range: 0-19 Comments: Negative <20Weak positive 20 - 39Moderate positive 40 - 59Strong positive >59 20-Sxl-[id number]:45 Comp. Metabolic Panel Comments: PATIENT WAS FASTINGPERFORMED BY: [address] [id number] BY: [address] [id number] (14) Alkaline Phosphatase, S 99 [iU]/L (Normal) [...] ng/mL (Normal) Comments: PATIENT WAS FASTINGPERFORMED BY: [employer] Rpzdtr4612 [facility] [id number] BY: [employer] [id number] 13:45 Range: 13-150 20-Aug-2009 Haptoglobin 252 mg/dL Comments: PATIENT WAS FASTINGPERFORMED BY: [employer] Gdzrnj4332 [facility] [id number] BY: [employer] [id number] 13:45 (Abnormal) Range: 34-200 14-Wfk-625403:45 Iron and TIBC Comments: PATIENT WAS FASTINGPERFORMED BY: [facility]netP[facility] CenterBbcwec[address] [place] [address] [id number] BY: [employer] [id number] Iron Bind.Cap.(TIBC) 384 ug/dL (Normal) Range: 250-450 Iron Saturation 6 % (Abnormal) Range: 15-55 Iron, Serum 24 ug/dL (Abnormal) Range: 35-155 UIBC 360 ug/dL (Normal) Range: 150-375 LDH 190 [iU]/L (Normal) Comments: PATIENT WAS FASTINGPERFORMED BY: [facility] [facility] [id number] BY: [address] [id number] :45 Range: 100-250 :45 Lipid Panel With LDL/HDL Comments: PATIENT WAS FASTINGPERFORMED BY: [facility] [id number] BY: [address] [id number] Ratio HDL Cholesterol 41 mg/dL (Normal) Comments: [...] 182 nmol/L Comments: PATIENT WAS FASTINGPERFORMED BY: [employer] [id number] BY: [address] [id number] 3:45 Serum (Normal) Range: 73-376 Comments: The reference range for methylmalonic acid has been set at +3sd abovethe mean for healthy blood bank donors. In the clinical assessment ofpatients with megaloblastic anemias a cutoff of +3sd provides gr eaterspecificity in the diagnosis of the vitamin deficiency states,despite the sacrifice of some sensitivity. :45 PT and PTT Comments: PATIENT WAS FASTINGPERFORMED BY: [facility] [id number] BY: [address] [id number] aPTT 29 {sec} (Normal) Range: 24-33 Comments: This test has not been validated for monitoring unfractionated heparintherapy. aPTT-based therapeutic ranges for unfractionated heparintherapy have not been established. For general guidelines onHeparin monitoring, refer to the [facility] Directory of Services. Prothrombin Time 11.1 {sec} Range: 8.7-11.5 (Normal) INR 1.1 (Normal) Range: 0.8-1.2 Comments: Reference interval is for non-anticoagulated patients..Suggested INR therapeutic range for Vitamin Kantagonist therapy:Standard Dose (moderate intensitytherapeutic range): 2.0 - 3.0Higher intensity therapeutic range 2.5 - 3.5 20-Aug-2009 Reticulocyte Count 2.4 % (Normal) Comments: PATIENT WAS FASTINGPERFORMED BY: [facility] [id number] BY: [address] [id number] 13:45 Range: 0.5-3.0 20-Aug-2009 RPR Non Reactive Comments: PATIENT WAS FASTINGPERFORMED BY: [place] [id number] [facility] [id number] BY: [address] [id number] 13:45 (Normal) 20-Aug-2009 Sedimentation 13 mm/h (Normal) Comments: PATIENT WAS FASTINGPERFORMED BY: [facility] [id number] BY: [address] [id number] 13:45 Rate-Westergren Range: 0-30 20-Aug-2009 TSH 2.470 {uIU/mL} Comments: PATIENT WAS FASTINGPERFORMED BY: [facility]6370 [facility] [id number] BY: [facility] Yzmziehlla0183 [facility][1] [id number] 13:45 (Normal) Range: 0.450-4.500 67-Tiw-060875:45 Vitamin B12 and Folate Comments: PATIENT WAS FASTINGPERFORMED BY: [facility] [address] [place] [id number] BY: [facility] Cpxlxrbzgl6082 [facility][1] [id number] Folate (Folic Acid), Serum 10.5 ng/mL (Normal) Comments: Indeterminate: 2.2 - 3.0Deficient: <2.2 Vitamin B12 583 pg/mL (Normal) Range: 211-946 66-Hoa-306826:18 HgA1C , Office (04483) HgA1C , Office 7.3 % (Abnormal) Range: 4.6 - 7.1 03-Dkf-108465:18 Blood Glucose , Office (50159) Blood Glucose , Office 167 (Normal) Plan of Care Name Dates Details Instructions Need for Tdap vaccination (Renamed from Need for qlobwxrfxg-mckrsab-ofgdthocq (Tdap) vaccine, adult/adolescent) : Follow up in 3 months Indication: Need for Tdap vaccination (Renamed from Need for gviblbzybk-jxkkplh-iaeapvgnl (Tdap) vaccine, adult/adolescent) Annual Medicare Phyiscal WITHOUT abnormal findings (Renamed from Encounter for general adult medical examination without abnormal findings) : fall reduction handout Indication: Annual Medicare Phyiscal WITHOUT abnormal findings (Renamed from Encounter for general adult medical examination without abnormal findings) Annual Medicare Phyiscal WITHOUT abnormal findings (Renamed from Encounter for general adult medical examination without abnormal findings) : elderly packet given Indication: Annual Medicare Phyiscal WITHOUT abnormal findings (Renamed from Encounter for general adult medical examination without abnormal findings) Annual Medicare Phyiscal WITHOUT abnormal findings (Renamed from Encounter for general adult medical examination without abnormal findings) : advance planning information Indication: Annual Medicare Phyiscal WITHOUT abnormal findings (Renamed from Encounter for general adult medical examination without abnormal findings) Current nonsmoker (Renamed from Current non-smoker) : [...] Knee pain Planned Observations Metabolic Panel, Comprehensive (44134)Indication: Rheumatoid arthritis On: 70-Qka-074549:41 Request Comments: Mar 2017 MICROALBUMIN: CREATININE RATIO (21712) AND (68259)Indication: Diabetes mellitus type II, controlled On: 5-Tho-171017:50 Request VITAMIN B12 AND FOLATES (77834)Indication: Diabetes mellitus type II, controlled On: 3-Wsb-363224:50 Request CALCIFEDIOL (13902)Indication: Diabetes mellitus type II, controlled On: 8-Gmn-842782:50 Request TSH (THYROID STIMULATING HORMONE) (35575)Indication: Hypothyroidism On: 9-Vdp-532214:50 Request LIPID PANEL (98904)Indication: Hypercholesteremia On: 2-Pwn-250649:50 Request METABOLIC PANEL, COMPREHENSIVE (88948)Indication: Diabetes mellitus type II, controlled On: 2-Dpj-754857:50 Request CBC, PLATELETS & AUT DIFF (15052)Indication: Diabetes mellitus type II, controlled On: 8-Qoy-690937:49 Request IRON ([id number])Indication: Anemia On: 02-Fpg-984475:05 Request Blood Glucose , Office (46826)Indication: Diabetes mellitus type II, controlled On: 75-Oax-09647:32 Request MICROALBUMIN: CREATININE RATIO (66248) AND (19566)Indication: Diabetes mellitus type II, controlled On: :06 Request VITAMIN B12 AND FOLATES (15526)Indication: Vitamin D deficiency On: 68-Yhp-922996:00 Request VITAMIN D, 1, 25-DIHYDROXY (55030)Indication: Vitamin D deficiency On: 23-Pyu-827584:00 Request LIPID PANEL (43689)Indication: Hypercholesteremia On: 09-Hxm-789018:00 Request METABOLIC PANEL, COMPREHENSIVE (90955)Indication: Diabetes mellitus type II, controlled On: 78-Kat-386177:00 Request CBC, PLATELETS & AUT DIFF (80104)Indication: Diabetes mellitus type II, controlled On: 51-Imd-767164:59 Request TSH (THYROID STIMULATING HORMONE) (75560)Indication: Hypothyroidism On: :59 Request POTASSIUM SERUM (33600)Indication: Hyperkalemia On: 35-Cel-852980:59 Request Comments: 2-3 weeks CALCIFIDIOL (68425) VIT D 25Indication: Vitamin D deficiency On: 93-Ntw-148010:34 Request TSH (53372)Indication: Hypothyroidism On: 65-Xkp-896667:34 Request MICROALBUMIN: CREATININE RATIO (90592) AND (66628)Indication: Diabetes mellitus type II, controlled On: :34 Request URINALYSIS, W/ MICRO (80892)Indication: Diabetes mellitus type II, controlled On: :34 Request TSH (48596)Indication: Hypothyroidism On: :34 Request METABOLIC PANEL, COMPREHENSIVE (06447)Indication: Diabetes mellitus type II, controlled On: :34 Request LIPID PANEL (08983)Indication: Diabetes mellitus type II, controlled On: :34 Request CBC with auto diff (44493)Indication: Diabetes mellitus type II, controlled On: :34 Request CBC with auto diff (97079)Indication: Hypertension, benign On: 76-Lbx-425567: Request METABOLIC PANEL, COMPREHENSIVE (98891)Indication: Hypertension, benign On: 39-Tza-429372:26 Request LIPID PANEL (30506)Indication: Hypertension, benign On: 52-Vwp-478741:26 Request TSH (11519)Indication: Hypothyroidism On: : Request CBC WITH MANUAL DIFF (75777)Indication: Hypertension, benign On: 55-Wuq-760726:21 Request METABOLIC PANEL, COMPREHENSIVE (72557)Indication: Hypertension, benign On: 38-Jos-540683:21 Request TSH (17443)Indication: Hypothyroidism On: 61-Bmw-767760:21 Request Methymalonic Acid, Serum (49968)Indication: Thrombocytopenia, unspecified On: 77-Mhv-19059:48 Request Vitamin B-12 (cyanocobalamin) (30379)Indication: Thrombocytopenia, unspecified On: :48 Request CBC, Platelets & Auto Diff (23891)Indication: Thrombocytopenia, unspecified On: :48 Request Comments: citrate METABOLIC PANEL, COMPREHENSIVE (76156)Indication: Hypertension, benign On: :59 Request CBC WITH MANUAL DIFF (35381)Indication: Hypertension, benign On: 67-Pdj-857760:59 Request TSH (15253)Indication: Hypothyroidism On: :29 Request METABOLIC PANEL, COMPREHENSIVE (85819)Indication: Hypertension, benign On: :29 Request Blood Glucose , Office (03577)Indication: Diabetes mellitus type II, controlled On: 75-Gce-315107:35 Request TSH (85833)Indication: Hypothyroidism On: :19 Request METABOLIC PANEL, COMPREHENSIVE (95553)Indication: Diabetes mellitus type II, controlled On: 81-Utd-674348:19 Request LIPID PANEL (25440)Indication: Diabetes mellitus type II, controlled On: 03-Pqz-247976:19 Request Blood Glucose , Office (00368)Indication: Diabetes mellitus type II, controlled On: 94-Zkl-286761:01 Request TSH (27253)Indication: Thyroid disorder On: 68-Awx-252528:29 Request MICROALBUMIN: CREATININE RATIO (55604) AND (46929)Indication: Diabetes mellitus type II, controlled On: : Request METABOLIC PANEL, COMPREHENSIVE (60860)Indication: Diabetes mellitus type II, controlled On: 50-Tse-652876: Request LIPID PANEL (64545)Indication: Diabetes mellitus type II, controlled On: : Request CBC WITH MANUAL DIFF ([id number])Indication: Diabetes mellitus type II, controlled On: : Request CBC WITH MANUAL DIFF (36788)Indication: Diabetes mellitus type II, controlled On: 75-Zoe-889892:52 Request MICROALBUMIN: CREATININE RATIO (64521) AND (11347)Indication: Diabetes mellitus type II, controlled On: 43-Qob-444688:29 Request METABOLIC PANEL, COMPREHENSIVE (62798)Indication: Diabetes mellitus type II, controlled On: 01-Hhp-338722:29 Request LIPID PANEL ([id number])Indication: Diabetes mellitus type II, controlled On: 37-Eyj-221312:29 Request CBC WITH MANUAL DIFF ([id number])Indication: Diabetes mellitus type II, controlled On: 49-Nxq-833886:29 Request FERRITIN (84131)Indication: Anemia On: 6-Nxn-305779:26 Request CBC with manual diff (17212)Indication: Anemia On: 29-May-20119:12 Request HgA1C , Office (92735)Indication: Diabetes mellitus type II, controlled On: 07-Zsj-525520:04 Request METABOLIC PANEL, COMPREHENSIVE (86233)Indication: Hypercholesteremia On: 91-Lul-518173:15 Request LIPID PANEL (62111)Indication: Hypercholesteremia On: 65-Lae-975879:15 Request Lipid Panel (55077)Indication: Hypercholesteremia On: 27-Ykh-856976:50 Request RPR (RAPID PLASMA REAGIN) (09144)Indication: Neuropathy On: 18-Szd-782277:48 Request TSH ([id number])Indication: Thyroid disorder On: 13-Gii-597685:48 Request HAPTOGLOBIN (51276)Indication: Anemia On: :46 Request PTT (Activated Partial Thromboplastin Time) (80719)Indication: Anemia On: 46 Request PT (Prothrobim Time) (17017)Indication: Anemia On: :46 Request RETICULOCYTE COUNT (60209)Indication: Anemia On: :46 Request LDH (LD) (LACTATE DEHYDROGENASE) (79169)Indication: Anemia On: :46 Request Methylmalonic acid, serum 54889Omagsajovw: Anemia On: 46 Request Vitamin B-12 (cyanocobalamin) (15266)Indication: Anemia On: :46 Request Iron Binding Capacity (TIBC) (64507)Indication: Anemia On: :46 Request Iron (32245)Indication: Anemia On: :46 Request Folic Acid Serum (91409)Indication: Anemia On: :46 Request Ferritin (28967)Indication: Anemia On: 86-Lky-494674:46 Request DNA ANTIBODY-NATV/DBL ST (64234)Indication: Pain in unspecified joint On: :46 Request CCP ANTIBODY (61098)Indication: Pain in unspecified joint On: 39-Xrl-421790:45 Request SED RATE ERYTHROCYTE (96543)Indication: Pain in unspecified joint On: 18-Rto-156418:45 Request C-REACTIVE PROTEIN (29100)Indication: Pain in unspecified joint On: 31-Eex-566591:45 Request TSH (87852)Indication: Pain in unspecified joint On: 39-Svv-458083:45 Request RHEUMATOID FACTOR-QUANT (95768)Indication: Pain in unspecified joint On: :45 Request DOT (ANTINUCLEAR ANTIBODY) (44649)Indication: Pain in unspecified joint On: 24-Tcb-892786:45 Request CBC WITH MANUAL DIFF (08746)Indication: Pain in unspecified joint On: 35-Cmv-007934:45 Request METABOLIC PANEL, COMPREHENSIVE (93478)Indication: Pain in unspecified joint On: 44-Ycw-916050:45 Request Planned Encounters Medical; 3 Month FU - On: 24-May-2018 9:30 [facility] Mayra Goodman CNP, CNP, Mary E Planned Procedures TDAP VACCINE >7 IM (52074)By: Maxine On: 20-Feb-2018 Intent Mayra HINTON CNP, Mary E DEXA SCAN AXIAL SKELETON (14779)By: On: 20-Feb-2018 Intent Mayra Goodman CNP, CNP, Mary E Flu Vaccine (Quadrivalent) 33062Sv: On: 30-Jan-2018 Intent Mayra Goodman CNP, CNP, Mary E Comments: Lot #[id number]/30/2019Site-L dltd, IMDose prefilled syringegiven by: TATYANA HART reviewed and ABN signed Flu Vaccine (Quadrivalent) 30536Uj: On: 10-Jan-2017 Intent Mayra Goodman CNP, CNP, Mary E Comments: Lot #[id number]/10/17ite-L dltd, IMDose prefilled syringegiven by:TATYANA Sutton and ABN signed Flu Vaccine (Quadrivalent) 42300Eu: On: 15-Dec-2015 Intent Rafael Thomas MD Comments: Lot #[id number]/30/17ite-L dltd, IMDose prefilled syringegiven by:TATYANA Sutton and ABN signed MRI OF CERVICAL SPINE WITHOUT On: 19-Jul-2015 Intent CONTRAST (93159)By: Katelyn Dempsey MD Ultrasound - RenalBy: Roselyn SORTO, On: 06-Jul-2015 Intent Katelyn Pedroza Renal Artery DopplerBy: Roselyn SORTO, On: 06-Jul-2015 Intent Katelyn Pedroza MRI OF CERVICAL SPINE WITH CONTRAST On: 06-Jul-2015 Intent ([id number])By: Katelyn Dempsey MD EMGBy: Katelyn Dempsey MD On: 06-Jul-2015 Intent Nerve ConductionBy: Katelyn Dempsey MD On: 06-Jul-2015 Intent Yovany Comments: right arm MRI OF BRAIN WITH CONTRAST On: 06-Jul-2015 Intent ([id number])By: Katelyn Dempsey MD Kenalog Injection, 10 mgm On: 01-Jun-2015 Intent (J3301)By: Katelyn Dempsey MD EKG (50283)By: Katelyn Dempsey MD On: 06-Oct-2014 Intent Comments: see scanned document of test done to see results reviewed today with patient Nuclear Stress Test/Stress On: 06-Oct-2014 Intent SPECT/AdenosineBy: Katelyn Dempsey MD Ultrasound - PelvisBy: Roselyn SORTO, On: 26-Jan-2014 Intent Katelyn Pedroza Flu Vaccine (Quadrivalent) 28603Zu: On: 26-Jan-2014 Intent Katelyn Dempsey MD Comments: Lot #:[id number] Expiration date:mount given:0.5mlRoute: IM Site given:left deltoid Given by: MSmith ADMINISTRATION OF INFLUENZA VIRUS On: 26-Jan-2014 Intent VACCINE (G0008)By: Katelyn Dempsey MD Kenalog Injection, 10 mgm On: 03-Nov-2013 Intent (J3301)By: Katelyn Dempsey MD Kenalog Injection, 10 mgm On: 03-Nov-2013 Intent (J3301)By: Katelyn Dempesy MD Kenalog Injection, 10 mgm On: 03-Nov-2013 Intent (J3301)By: Katelyn Dempsey MD Kenalog Injection, 10 mgm On: 03-Nov-2013 Intent (J3301)By: Katelyn Dempsey MD EKG (84039)By: Katelyn Dempsey MD On: 12-May-2013 Intent Comments: see scanned document of test done to see results reviewed today with patient ADMINISTRATION OF INFLUENZA VIRUS On: 11-Feb-2013 Intent VACCINE (G0008)By: Faviola Howell LPN Comments: Lot #[id number]-L dltd, IMDose prefilled syringegiven by:Tony and NISHI signed FLU VAC, SPLIT, >3 YEARS, INTRAMUSC On: 11-Feb-2013 Intent (00626)By: Faviola Howell LPN Eprescribed prescriptions (G8553)By: On: 11-Feb-2013 Intent Faviola Howell LPN Eprescribed prescriptions (G8553)By: On: 12-Nov-2012 Intent Dante JOLLEYNFaviola IMMUNIZ ADMNIN, 1 VAC, SNGL/COMBO On: 29-Aug-2012 Intent (45979)By: Brayden FOOTEJoeyie ZOSTER VACC, ME (92716)By: Brayden On: 29-Aug-2012 Intent DARY Chante Eprescribed prescriptions (G8553)By: On: 13-Aug-2012 Intent Long HARDWARE SUPPLIES SALES REPRESENTATIVEFaviola Eprescribed prescriptions (G8553)By: On: 14-May-2012 Intent Dante HARDWARE SUPPLIES SALES REPRESENTATIVEFaviola L Solu -Medrol Injection, 125 mg On: 05-Apr-2012 Intent (J2930)By: Maxine HINTON, Mayra Goodman CNP, Ivonne ADMINISTRATION OF INFLUENZA VIRUS On: 12-Feb-2012 Intent VACCINE (G0008)By: HARESH Griffin FLU VAC, SPLIT, >3 YEARS, INTRAMUSC On: 12-Feb-2012 Intent (76611)By: HARESH Griffin PNEUM VAC ADLT/IMUMNOSPR, SBC/INTRM On: 13-Nov-2011 Intent (99339)By: Katelyn Dempsey MD Comments: Lot:Exp:2.14 [id number]:0.5mlRoute:L arm, IMGiven By:JKM ADMINISTRATION OF PNEUMOCOCCAL On: 13-Nov-2011 Intent VACCINE (G0009)By: Katelyn Dempsey MD Eprescribed prescriptions (G8553)By: On: 21-Jul-2010 Intent Katelyn Dempsey MD MAMMOGRAM, SCREENING, BOTH BREASTS On: 22-Apr-2010 Intent (39828)By: Katelyn Dempsey MD Radiology - Hand - BilateralBy: On: 06-Sep-2009 Intent Katelyn Dempsey MD Comments: copy to [facility] Planned Medications INJECTION, METHYLPREDNISOLONE SODIUM SUCCINATE, UP TO 125 MG Ordered: 05-Apr-2012 Pending Maxine HINTON, Mayra Goodman CNP, Ivonne INJECTION, TRIAMCINOLONE ACETONIDE, NOT OTHERWISE SPECIFIED, 10 [...] controlled : DISCONTINUED - MICROALBUMIN: CREATININE RATIO (01506) AND (48081) Indication: Diabetes mellitus type II, controlled Iron [...] type II, controlled Encounters Office Visit On: 20-Feb-2018 10:06 Encounter Reason: Annual Medicare Exam - The patient had reviewed and updated the family history, medication/s, past medical history and social history. Yes the patient did have a mini mental status exam done today. The End: 20-Feb-2018 11:06 activities of daily living the patient needs help with are feeding, getting places out of walking distance, shopping for groceries, housework, laundry and meal preparation. The patient has driven in pas t 6 months, fallen in the past 6 months, has a medalert necklace or bracelet and put handrails in bathroom, but the patient has not had fecal incontinence, had urinary incontinence, missed or ran out of medications to soon, gotten lost or put area rugs through house. The patient has completed the following preventative measures: mammography (2004 and bone density 2004), PSA testing (2004) and colonosc opy (2004). The patient does have durable power of county attorney and living will. The patient has noticed dropping activities and interests, getting bored, staying at home rather than doing something new or going out and lack of energy. Other providers contributing to the patient's care are physical therapy aide (dr. morris), chief safety officer (dr. francisco) and other: (diabetic - [facility]Encounter Diagnosis: BMI 35.0-35.9,adult, Current nonsmoker (Renamed from Current non-smoker), Annual Medicare Phyiscal WITHOUT abnormal findings (Renamed from Encounter for general adult medical examination without abnormal findings), Postmenopausal (Renamed from Postmenopausal status), Need for Tdap vaccination (Renamed from Need for smzlnqoenx-uvnpkbs-rdedbnunc (Tdap) vaccine, adult/adolescent) [facility] Office Visit On: 30-Jan-2018 10:36 Encounter Reason: Forms - The patient presents to the office to be evaluate for scooter/wheelchair (see scanned in form filled out). Note for Forms: already had evaluation done by PT, just need PCP signatureDebility pr End: 30-Jan-2018 11:32 esents in [facility]. Sees Dr. Child recently treated by [...] for Transition into care: Was admitted to [place] on Oct 28, 2016 with weakness un [...] deficiency, Rheumatoid arthritis, Blood in stool, Anemia, Bowman's, Anemia [facility] Office Visit On: [...] Nutrition: balanced diet and supplemental vitamins. The ne dical issues the patient is following up [...] The patient does have durable power of county attorney and living will. The patient has noticed nothing from the geriatic depression scale. Other providers contributing to the patient's care a re gastrologist ( @[facility] in [facility] for colonscopy ), chief safety officer (Dr. Francisco ) and other: (Stone Cleaner: Dr. Child , Pain Management: Dr. Mcfadden [...] patient does have du rable power of county attorney and living will. The patient has noticed nothing from the geriatic depression scale. Other providers contributing to the patient's care are gastrologist ( @[facility] in [facility] for colonscopy ), chief safety officer (Dr. Francisco ) and other: (Stone Cleaner: Dr. Child , Pain Management: Dr. Mcfadden [...]
--- OUTSIDE RECORDS SUMMARY | 2018-04-22 10:08 | XMS RPT_ITS | Continuity of Care Document ---
:1945 Author Organization [facility] Address [address] [place] [address] Phone Care Team Providers Name Role Phone [...] 72.8Cannot tolerate Fe supplment Status: Active Anemia, [facility] (D51.0, 281.0) Status: Active Annual Medicare Phyiscal [...] Fede Stent [address] Campa in [place] Status: Active Current nonsmoker (Renamed from Current [...] no vomiting, resoled after stopping trulicity(03/10)Junuvia on uzr967ig once daily Rageye exam yearly(12/09/15), catarctekg cardiology Dr Zhang, stents 1 in 2003Podiatry: Dr Child [facility], every 3 months, Has multiple toe amputations [...] Comments: Sees pain management Dr. Mcfadden at [facility], she prescribes lyrica, dose increased in winter [...] toprol BP stable sees Dr. 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 [facility] BP:130-138/78 Status: Active Hypothyroidism (E03.9, 244.9) Status: [...] (M25.569, 719.46) Comments: 1 cc juanis Lot#: [id number] exp 2 cc miguel a lot#: [id number] exp: right knee has RA and this [...] then weaned off ventilator or sent to [facility] Status: Active Mitral valve stenosis (I05.0, 394.0) Comments: MODERATE: Saw Dr Zhang (does not want to see him again, was told needs mitral valve replacement as is not candidate for valvuloplastyNew Dr : DR Kee Campa(tecumseh)per pt does not receomemd surgery at this [...] for Tdap vaccination (Renamed from Need for gukwcbabbf-owtwpre-zlfumaker (Tdap) vaccine, adult/adolescent) (Z23, V06.1) Status: Active [...] for new wheelchair, she will look at [facility] to see what she would [...] Quantity: 2 {Package} Refills: 1 Ordered:03-Jul-2016 Maxine PRESCHOOL PRINCIPAL, Mayra Lin PRESCHOOL PRINCIPAL, Ivonne Start : 03-Jul-2016 Active Comments:Total 60 [...] Dempsey MD Start : 19-Jul-2015 Active Comments:E11.9NPI: [phone] PERCOCET, 7.5-325MG (Oral Tablet) 2 (two) Tablet every 4 hours prn for 0 days Quantity: 160 {Tablet} Refills: 0 Ordered:08-Sep-2015 Rafael Thomas MD Start : 08-Sep-2015 Active Comments:one hundred and sixty Pravastatin Sodium 20 MG Oral Tablet 1 Tablet QD for 30 days Quantity: 30 {Tablet} Refills: 1 Ordered:15-Feb-2018 Maxine PRESCHOOL PRINCIPAL, Mayra Lin CNP, Ivonne Start : 15-Feb-2018 [...] Refills: 3 Ordered:04-Mar-2018 Maxine HINTON, Mayra Lin PRESCHOOL PRINCIPAL, Ivonne Start : 04-Mar-2018 Active Toprol XL [...] Quantity: 60 {Tablet} Refills: 3 Ordered:18-Dec-2016 Maxine PRESCHOOL PRINCIPAL, Mayra Delia HINTON, Ivonne Start : 08-Sep-2015 [...] 31-Mar-2015 End : 01-Apr-2015 Inactive Comments:SSI: 151-200-1 ciwk786-820-5 units 782-408-1iwelp 301-350-4 units 351-400-5 unitsover 400 give 5 [...] Quantity: 30 {Capsule} Refills: 0 Ordered:10-Jan-2017 Laurel Thomas LPN Start : 06-Nov-2016 End : 10-Jan-2017 [...] me sick as a dog Vitamin D3 50995 UNIT Oral Capsule 1 (one) Capsule once a week for 60 days Quantity: 8 {Capsule} Refills: 0 Ordered:15-Dec-2015 Rafael Thomas MD Start : 15-Dec-2015 End : 13-Feb-2016 Inactive ZOLPIDEM TARTRATE, 10MG (Oral Tablet) 1 Tablet qhs prn for 0 days Quantity: 30 {Tablet} Refills: 3 Ordered:31-Mar-2015 HARESH Griffin Start : 03-Nov-2013 End : 31-Mar-2015 Inactive Comments:estephania ZOSTAVAX, 72743SGO/0.65ML (Subcutaneous Solution Reconstituted) uad For Solution one [...] - PT Result: Comments: See Note; NOTES: [facility] Physical Therapy [facility] 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 Please let me know if there are questions or concerns regarding this plan of care. Physician Signature: Date: <Electronically signed by Juanis Sanchez DPT> 12/17/17 10 38 CC: Mayra Goodman NP ELR Signed For Medicare only, by signing this I certify the plan of care. Physicians Signature Date 05-Jan-2016 Stress Test Echo w/ Contrast Result: Comments: See Note; NOTES: [facility] Cardiovascular Services [address] [place] [address] [place] 4d Stress Test Echo w/o Contrast MR#: [id number] Acct: [id number] Name: TIA MACARIO Ebony Rep #: [id number] : 1945 70 From: Pawan Zhang MD [...] 30.00 DOBUTAMINE STAGE 4 1:12 12 5 151/44486.00 BASELINE 88 141/55 Stress Duration: 10:12 mm:ss [...] abnormalities noted. abnormalities noted. EKG Data [facility] ECG displays normal sinus rhythm. 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 Jose Mccain M.D. T: NTS JOB: [id number] 11/18/15 0739 <Electronically signed by Jose Mccain MD> Date Jose Antonio Signature (If Indicated): Date CC: Rafael Thomas Date Dictated: 11/10 Date Transcribed: 11/11/151715 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: Signed 11-Nov-2015 Discharge Instruction Result: Comments: See Note; NOTES: [facility] Medical Records Department [address] [address] [place] [address] Discharge Instruction 11/11/15 1451 MR#: [id number] Acct: [id number] Name: TIA SERVIN Rep #: [id number] : 1945 70 From: Jose Mccain MD [...] problems, contact your doctor. Call [facility] ([phone]) or report to [facility] Emergency Room. Call 911 if necessary. 11/11/151906 <Electronically signed by Jose Mccain MD> Date Jose Antonio Signature (If Indicated): Date CC: Rafael Thomas 11-Nov-2015 Ankle min 3 Views Result: Comments: See Note; NOTES: [facility] Imaging Services [address] [place] [address] [place] 4d Ankle min 3 Views MR#: [id number] Acct: [id number] Name: TIA SERVIN Rep #: [id number] : 1945 F 70 From: Clemencia Holden MD PCP: Rafael Thomas Status: REG ER Study: Ankle min 3 Views Date of Exam: 11/11/15 Exam# [id number] Ordering Dr: Jose Mccain MD STUDY: X-RAY [...] MD at 14:20 EDT , Service support [phone], CC: Jose Mccain; Rafael Thomas 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: Signed 11-Nov-2015 Foot min 3 Views Result: Comments: See Note; NOTES: [facility] Imaging Services [address] [place] [address] [place] 4d Foot min 3 Views MR#: [id number] Acct: [id number] Name: TIA SERVIN Rep #: [id number] : 1945 F 70 From: Clemencia Holden MD PCP: Rafael Thomas Status: REG ER Study: Foot min 3 Views Date of Exam: 11/11/15 Exam# [id number] Ordering Dr: Jose Mccain MD STUDY: X-RAY [...] MD at 14:26 EDT , Service support [phone], CC: Jose Mccain; Rafael Thomas 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: Signed 08-Nov-2015 PT D/C Summary (1) Result: Comments: See Note; NOTES: [facility] Physical Therapy [facility] [address] [place] [address]. [address] [place] [address] Fax REHABILITATION SERVICES DISCHA RGE SUMMARY MR#: [id number] Acct: [id number] Name: TIA SERVIN Rep #: [id number] : 1945 70 From: Laura Wright PT, Cert. MDT Referring Dr.: OUT OF TOWN DOCTOR Status: REG RCR Insurance: MEDICARE PART A B [employer] [facility] - PT D/C Summary It has been [...] TO FOLLOW UP WITH DR. LAY IN [place] SUNDAY. SHE REPORTS SHE DOES NOT WANT [...] please feel free to call me at [phone]. Thank you for the referral of this patient. Sincerely, Laura Wright <Electronically signed by Laura Wright PT, Cert. MDT> 11/08/15 1035 CC: MISBAH STRONG; Rafael Thomas; OUT OF TOWN DOCTOR JH Signed 27-Oct-2015 Inital Evaluation (1) - PT Result: Comments: See Note; NOTES: [facility] Physical Therapy [facility] [place], [place] [address] Fax REHABILITATION SE RVICES INITIAL EVALUATION MR#: [id number] Acct: [id number] Name: TIA SERVIN Rep #: [id number] : 1945 70 From: Laura Wright PT, Cert. MDT Referring Dr.: Georgi Lay MD Status: R EG RCR Insurance: MEDICARE PART A B [facility] Patient's Visit Information TIA SERVIN is [...] THE HOSPITAL ANOTHE WEEK AND THEN A SHELTER FOR A MONTH TO TRY TO GET HER STRENGTH BACK. PATIENT REPORTS SHE ALSO HAS A HISTORY OF LUMBAR PRO BLEMS AND THEY ARE WORSENING. Recent major surgery: RENETTA LE TOE AMPUTATIONS AND OPEN SORES ON TOES CURRENTLY. HEART CATH/STENTS. RA AND OA. SOCIAL: LIVES ALONE. 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 OTHER: PATIENT REPORTS SHE DOES NOT DO WELL IN THERAPY. SHE STATES IT USUALLY CAUSES TOO MUCH PAIN. I ACHE SO BAD WHEN I DO THERAPY. PATIENT REPORTS THEY PUT HER IN THERAPY AT THE SHELTER AND S HE COULDN'T DO MUCH. - [...] to be FAXED BACK to us at [phone] for Medicare purposes. Please let m e know if there are questions or concerns regarding this plan of care. Physician Signature: Date: <Electronically signed by Cert. MACARIO Rowe PTT> 10/27/15 1200 CC: Georgi Lay MD; Rafael Thomas JH Signed For Medicare only, by signing this I certify the plan of care. Physicians Signature Date 07-Oct-2015 Re-Evaluation - PT (1) Result: Comments: See Note; NOTES: [facility] Physical Therapy [facility] [address] [place] [address] Fax [facility] MR#: [id number] Acct: [id number] Name: TIA SERVIN Rep #: [id number] : 1945 70 From: Cert. MACARIO Rowe [...] do not hesitate to contact me at [phone] by phone or if you have questions or concerns regarding this new plan of care! Sincerely, Laura Wright <Electronically signed by Laura Wright PT, Cert. MDT> 10/07/15 1155 CC: Georgi Lay MD; Rafael Thomas DT: JH Signed For Medicare only, by signing this I certify the plan of care. Physicians Signature Date 24-Aug-2015 NCS and/or EMG Patient Result: Comments: See Note; NOTES: [facility] Pulmonary Services/Neurology [address] [place] [address] NCS and/or EMG Patient MR#: [id number] Acct: [id number] Name: ITA MARTINEZ Rep #: [id number] : 1945 70 From: Jakob Pino MD [...] median mononeuropathy. This is consistent with a iope-co-salokpca right carpal tunnel syndrome. 2. Electrodiagnostic findings demonstrate acute right-sided C5 radiculopat hy. If there are any questions in regards to this exam, please do not hesitate to contact me. 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: Signed 20-Jul-2015 Renal Artery Duplex Result: Comments: See Note; NOTES: [facility] Cardiovascular Services [address] [place] [address] Renal Artery Duplex Ultrasound 07/20/15 0853 MR#: [id number] Acct: [id number] Name: TIA SERVIN Rep #: [id number] : 1945 70 From: Martinez Faulkner MD [...] Dictated: 07/20/15 0853 Date Transcribed: 07/20/15 1210 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: Signed 20-Jul-2015 Kidney and Bladder Result: Comments: See Note; NOTES: [facility] Imaging Services [address] [place] [address] [place] 4d Kidney and Bladder MR#: [id number] Acct: [id number] Name: TIA SERVIN Rep #: [id number] : 1945 F 70 From: Arabella Peace MD PCP: Katelyn Dempsey MD Status: REG CLI Study: Kidney and Bladder Date of Exam: 07/20/15 Exam# [id number] Ordering Dr: Katelyn Dempsey MD STUDY: RENAL [...] MD at 13:01 EDT , Service support [phone], CC: Katelyn Dempsey MD 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: Signed 20-Jul-2015 Brain W/WO Contrast Result: Comments: See Note; NOTES: [facility] Imaging Services [address] [place] [address] [place] 4d Brain W/WO Contrast MR#: [id number] Acct: [id number] Name: TIA SERVIN Rep #: [id number] : 1945 F 70 From: Arabella Peace MD PCP: Katelyn Dempsey MD Status: REG CLI Study: Brain W/WO Contrast Date of Exam: 07/20/15 Exam# [id number] Ordering Dr: Moe Dempsey MD STUDY: MRI [...] MD at 12:28 EDT , Service support [phone], CC: Katelyn Dempsey MD 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: Signed 20-Jul-2015 Spine Cervical (Routine) Result: Comments: See Note; NOTES: [facility] Imaging Services [address] [place] [address] [place] 4d Spine Cervical (Routine) MR#: [id number] Acct: [id number] Name: TIA ANDRADE Rep #: [id number] : 1945 F 70 From: Arabella Peace MD PCP: Katelyn Dempsey MD Status: REG CLI Study: Spine Cervical (Routine) Date of Exam: 07/20/15 Exam# [id number] Ordering Dr: Katelyn Irby MD STUDY: MRI [...] at 11:49 ED T , Service support [phone], CC: Katelyn Dempsey MD 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: Signed 17-Jun-2015 Echocardiogram Complete Result: Comments: See Note; NOTES: [facility] Cardiovascular Services [address] [place] [address] Echo Complete 06/17/15 0753 MR#: [id number] Acct: [id number] Name: MILY JENSENELICEOTIA Ebony Rep #: [id number] : 1945 70 From: Pawan Zhang MD [...] Dictated: 06/17/15 0753 Date Transcribed: 06/17/15 105 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: Signed 04-Mar-2015 Brain/Head without Contrast Result: Comments: See Note; NOTES: [facility] Imaging Services [address] [place] [address] [place] 4d Brain/Head without Contrast MR#: [id number] Acct: [id number] Name: TIA SERVIN Rep #: [id number] : 1945 F 69 From: Kahlil Waters PCP: Katelyn Dempsey MD Status: REG ER Study: Brain/Head without Contrast Date of Exam: 03/04/15 Exam# [id number] Esteban rivera Dr: Oleg Nash MD STUDY: [...] 0 at 3:47 EST , Service support [phone], CC: Katelyn Dempsey MD; Oleg Nash M.D. 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: Signed 16-Feb-2014 Pelvic (Non ) Result: Comments: See Note; NOTES: [facility] Imaging Services [address] [place] [address] Ultrasound Report MR#: [id number] Acct: [id number] Name: TIA SERVIN Rep #: [id number] : 1945 F 68 From: Misbah Elaine DO PCP: Katelyn Dempsey MD Status: REG CLI Study: Pelvic (Non ) Date of Exam: 02/16/14 Exam# [id number] Ordering Dr: Katelyn Dempsey MD STUD Y: [...] at 4:59 EST Tel , Service support [phone], CC: Katelyn Dempsey MD 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: Signed Immunization Name Dates Details Pneumococcal conjugate [...] Most Recent 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, 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, Status: Active No Drug Use Status: Active Tobacco Use Comments: Remotely quit tobacco use 1987 Status: Active Vital Signs Date Test Result Details 81-Yhy-821836:07 Temperature 97.3 f Comments: Method: Temporal Pulse [...] kg/m2 Body Surface Area Calculated 2 m2 5-Rtn-475134:37 Temperature 97.8 f Comments: Method: Temporal Pulse [...] Area Calculated 2.07 m2 :35 Comments: has [facility] Temperature 97.1 f Comments: Method: Temporal [...] kg/m2 Body Surface Area Calculated 2.07 m2 43-Hqc-819191:00 Temperature 97.4 f Comments: Method: Temporal Pulse [...] 240 lb Results Date Description Value Details 17-Tcg-081287:17 CBC W/Diff, Automated Comments: WANTS THE CMP CBCDDRVANNESSA WANTS THE A1C CMP [facility] [address] [place], [address] Absolute Lymph 0.82 {X10_3/ul} (Abnormal) Range: 0.83-4.51 [...] 4.2-5.4 WBC 6.6 K/mm3 (Normal) Range: 4.4-11.0 37-Pwh-302473:17 Comprehensive Metabolic Profil Comments: WANTS THE CMP CBCDDR.DERRICK WANTS THE A1C CMP [facility] [address] [facility] [place], [place], [address] GAP 11 (Normal) Range: 5-15 CO2 22.0 [...] A.D.A. criteria.Please note revised GLUCOSE reference range twezoojzk28/02/2018. 50-Wil-521712:17 Hemoglobin A1c Comments: WANTS [facility] CBCDDR.DERRICK WANTS THE A1C [facility] [address] [place], [address] HGB A1C 5.9 % (Normal) Range: 4.2-6.3 29-Lis-288670:17 Microalb:Creat Ratio,Random UR Comments: WANTS [facility] CBCDDR.DERRICK WANTS THE A1C [facility] [address] [place], [address] MALB:CREAT 14.7 {mg/g_CRE} (Normal) MICROALBUMIN,UR 26.9 mg/L (Normal) UR CREAT 183.00 mg/dL (Normal) 59-Ljs-995651:17 Thyroid Stim Hormone (TSH) Comments: WANTS [facility] CBCDDR.DERRICK WANTS THE A1C [facility] [address] [place], [address] TSH 0.78 {uIU/mL} (Normal) Range: 0.358-3.74 5-Dgh-034796:11 CBC W/Diff, Automated Comments: [facility] [address] [place], [address] Absolute Lymph 1.06 {X10_3/ul} (Normal) [...] 4.2-5.4 WBC 6.4 K/mm3 (Normal) Range: 4.4-11.0 8-Iug-892931:11 Comprehensive Metabolic Profil Comments: [facility] [address] [place], [address] GAP 14 (Normal) Range: 5-15 CO2 24.0 [...] criteria.Please note revised GLUCOSE reference range /02/2018. 85-Ima-642179:01 HgA1C , Office (09607) Comments: 5.8 HgA1C , Office 5.8 % (Normal) Range: 4.6 - 7.1 88-Ome-832318:00 Blood Glucose , Office (41481) Comments: 99 Blood Glucose , Office 99 (Normal) 74-Huf-05770:19 Comprehensive Metabolic Profil Comments: [facility] [address] [place], [place], [address] GAP 11 (Normal) Range: 5-15 CO2 26.0 [...] A.D.A. criteria.Please note revised GLUCOSE reference range uvwoymgnq34/02/2018. :19 Hemoglobin A1c Comments: [facility] [address] [facility]. [place], [place], [address] HGB A1C 5.6 % (Normal) Range: 4.2-6.3 :19 Thyroid Stim Hormone (TSH) Comments: [facility] [address] [facility]. [place], [place], [address] TSH 2.33 {uIU/mL} (Normal) Range: 0.358-3.74 :19 Vitamin D,25 Hydroxy Comments: [facility] [address] [facility]. [place], [place], [address] Vitamin D 25-OH 37.3 ng/mL (Normal) Range: 29.95-100.01 Comments: Vitamin D 25(OH) Status Range Deficiency <20 ng/mL (50nmol/L) Insuffciency - 30 ng/mL (50 - 75 nmol/L) Sufficiency 30 - 100 ng/mL (75 - 250 nmol/L) Toxicity >100 ng/mL (>250 nmol/L) 36-Kpi-794748:01 CBC W/Diff, Automated Comments: [facility] [address] [place], [place], [address] Absolute Lymph 1.26 {X10_3/ul} (Normal) Range: 0.83-4.51 [...] 4.2-5.4 WBC 7.4 K/mm3 (Normal) Range: 4.4-11.0 82-Ccf-494779:01 Comprehensive Metabolic Profil Comments: [facility] [address] [place], [place], [address] GAP 10 (Normal) Range: 5-15 CO2 25.0 [...] A.D.A. criteria.Please note revised GLUCOSE reference range ometvptie79/02/2018. 18-Ybp-870984:34 CALCIFEDIOL (02060) Comments: PATIENT NOT FASTINGPERFORMED BY: [facility]yl[facility] [id number] Vitamin D, 25-Hydroxy 30.2 ng/mL (Normal) Range: 30.0-100.0 Comments: Vitamin D deficiency has been defined by the [place] of[place] and an Endocrine Society practice guideline as alevel of serum 25-OH vitamin D less than 20 ng/mL (1,2).The Endocrine Society went on to further define vitamin Dinsufficiency as a level between 21 and 29 ng/mL (2).1. IOM ([place] [employer]). 2010. Dietary reference intakes for calcium and D. [place]: The National Academies Press.2. Brandon MF, Bakari BOYD, Vicente IZAGUIRRE, et al. Evaluation, treatment, and prevention of vitamin D deficiency: an Endocrine Society clinical practice guideline. JCEM. 2010; 96(7):1911-30. 25-Jul-20179:41 Comprehensive Metabolic Profil Comments: [facility] [address] [place], [address] GAP 10 (Normal) Range: 5-15 CO2 24.0 [...] A.D.A. criteria.Please note revised GLUCOSE reference range cfqwioowy95/02/2018. :41 Hemoglobin A1c Comments: [facility] [address] [place], [address] HGB A1C 5.8 % (Normal) Range: 4.2-6.3 :41 Lipid Profile Comments: [facility] [address] [place], [address] VLDL 45 mg/dL (Abnormal) Range: 5-40 LDL [...] High Risk :41 Microalb:Creat Ratio,Random UR Comments: [facility] [address] [place], [place], [address] MALB:CREAT 14.8 {mg/g_CRE} (Normal) MICROALBUMIN,UR 46.0 mg/L (Normal) UR CREAT 310.00 mg/dL (Normal) :41 Thyroid Stim Hormone (TSH) Comments: [facility] [address] [place], [address] TSH 1.96 {uIU/mL} (Normal) Range: 0.358-3.74 96-Scq-983044:18 CBC W/Diff, Automated Comments: [facility] [address] [facility]. [place], [place], [address] Absolute Lymph 1.08 {X10_3/ul} (Normal) Range: 0.83-4.51 [...] 4.2-5.4 WBC 4.7 K/mm3 (Normal) Range: 4.4-11.0 53-Goy-096682:18 Comprehensive Metabolic Profil Comments: [facility] [address] [facility] [place], [address] GAP 7 (Normal) Range: 5-15 CO2 26.0 mmol/L (Normal) Range: 21.0-32.0 CL 107 mmol/L (Normal) Range: 98-107 K 4.8 mmol/L (Normal) Range: 3.5-5.1 NA 140 mmol/L (Normal) Range: 136-145 T BILI 0.60 mg/dL (Normal) Range: 0.20-1.00 ALT 16 U/L (Normal) Range: 13-56 Comments: Please note revised ALT reference range tmsvbipjt26/28/2018. ALK P 63 U/L (Normal) Range: 45-117 [...] A.D.A. criteria.Please note revised GLUCOSE reference range oluimyjua84/02/2018. 3-Fwn-950447:40 CALCIFEDIOL (86571) Comments: PATIENT NOT FASTINGPERFORMED BY: [facility] [facility] [id number] Vitamin D, 25-Hydroxy 31.0 ng/mL (Normal) Range: 30.0-100.0 Comments: Vitamin D deficiency has been defined by the [place] [employer] and an Endocrine Society practice guideline as alevel of serum 25-OH vitamin D less than 20 ng/mL (1,2).The Endocrine Society went on to further define vitamin Dinsufficiency as a level between 21 and 29 ng/mL (2).1. IOM ([place] [employer]). 2010. Dietary reference intakes for calcium and D. [place]: The National Academies Press.2. Holick MF, Bakari NC, Vicente IZAGUIRRE, et al. Evaluation, treatment, and prevention of vitamin D deficiency: an Endocrine Society clinical practice guideline. JCEM. 2010; 96(7):1911-30. 4-Cod-614479:20 Crystals, Body Fluid Comments: [facility] [address] [place], [place], [address] PATH REV Reviewed (Normal) Comments: Negative for malignant cells and crystals.Acute inflammation.Clinical correlation necessary.Jacinto Herrera M.D. 03/28/17 AMENDED REPORT 03/28/17 1357 PATH REV previously reported as: Will follow SOURCE/BF SYNOVIAL (Normal) CRYSTALS/BF SEE PATH REV (Normal) 0-Xxp-624687:20 Culture, Body Fluid Comments: [facility] [address] [place], [place], [address] ; dr redd ALASF See Note (Normal) [...] DAYS Cult, AnaerobicNo growth in 5 days. 6-Qod-649455:20 Synovial Fluid RBC, WBC AND Comments: [facility] [address] [place], [place], [address] ; dr rainey Diff PATH COM/SYFL May [...] Comments: YELLOW/RED SYNOVIAL SOURCE RIGHT KNEE (Normal) 17-Kmp-85087:53 CBC W/Diff, Comments: PLEASE FAX RESULTS TO [id number] PT REQUEST.[facility] Cxbdrmfvlh[address] [place], [place], [address] ; dr barba Automated Absolute Lymph 0.89 [...] :53 Comprehensive Comments: PLEASE FAX RESULTS TO [id number] PT REQUEST.[facility] Ltsrhlxqol[address] [place], [address] Metabolic Profil GAP 10 (Normal) Range: 5-15 [...] Hemoglobin A1c Comments: PLEASE FAX RESULTS TO [id number] PT REQUEST.[facility] Setrppfmie2705 [address]. [place], [address] HGB A1C 6.9 % (Abnormal) Range: 4.2-6.3 :53 Lipid Profile Comments: PLEASE FAX RESULTS TO [id number] PT REQUEST.[facility] Pgoxirtfor9342 [address]. [place], [address] VLDL 29 mg/dL (Normal) Range: 5-40 LDL [...] Thyroid Stim Comments: PLEASE FAX RESULTS TO [id number] PT REQUEST.[facility] Ozfvociwwq1935 [address]. [place], [place], [address] Hormone (TSH) TSH 1.69 {uIU/mL} (Normal) Range: 0.358-3.74 92-Hez-731844:59 HgA1C , Office (26100) HgA1C , Office 6.4 % (Normal) Range: 4.6 - 7.1 96-Ngf-123966:59 Blood Glucose , Office (00568) Blood Glucose , Office 213 (Normal) 21-Tna-110776:27 CBC W/Diff, Automated Comments: SHARE RESULTS WITH DERRICK FOR [facility] Eyqjccslwe8531 [place], [address] Absolute Lymph 1.20 {X10_3/ul} (Normal) [...] 4.2-5.4 WBC 6.1 K/mm3 (Normal) Range: 4.4-11.0 73-Hvf-198329:27 Comprehensive Metabolic Profil Comments: SHARE RESULTS WITH DERRICK FOR [facility] Ikrjhgigws4943 Norma [place], [place], [address] GAP 11 (Normal) Range: 5-15 CO2 23.0 [...] 200 mg/dLsuggests DIABETES MELLITUS per A.D.A. criteria. 67-Aso-200544:05 Comprehensive Metabolic Profil Comments: [facility] Olkhbhynuh7283 [place], [address] GAP 9 (Normal) Range: 5-15 CO2 24.0 [...] 126 mg/dLsuggests DIABETES MELLITUS per A.D.A. criteria. 67-Ihy-543174:05 Hemoglobin A1c Comments: [facility] Zammowwyvp[address] [place], [place], [address] HGB A1C 6.7 % (Abnormal) Range: 4.2-6.3 52-Fej-026497:05 Thyroid Stim Hormone (TSH) Comments: [facility] [address]ib[address] [place], [place], [address] TSH 3.02 {uIU/mL} (Normal) Range: 0.358-3.74 10-Wsr-945380:05 Vitamin D,25 Hydroxy Comments: [facility] C[address]vsvwr[address] [place], [place], [address] Vitamin D 25-OH 23.5 ng/mL (Normal) Comments: Vitamin D 25(OH) Status Range Deficiency <20 ng/mL (50nmol/L) Insuffciency 20 - 30 ng/mL (50 - 75 nmol/L) Sufficiency 30 - 100 ng/mL (75 - 250 nmol/L) Toxicity >100 ng/mL (>250 nmol/L) :56 HgA1C , Office (59543) HgA1C , Office 6.3 % (Normal) Range: 4.6 - 7.1 :56 Blood Glucose , Office (31101) Blood Glucose , Office 194 (Normal) :37 CBC W/Diff, Automated Comments: [facility] [address] [place], [place], [address] ; another doc Absolute Lymph 1.29 {X10_3/ul} [...] Range: 4.4-11.0 :37 Comprehensive Metabolic Profil Comments: [facility] Z[address] [place], [place], [address] GAP 7 (Normal) Range: 5-15 CO2 29.0 [...] 126 mg/dLsuggests DIABETES MELLITUS per A.D.A. criteria. 12-Gna-20621:37 Basic Metabolic Profile Comments: Order Date: 12/03/15DRKARLA WANTS LIVER,LIPIDDR.DERRICK KEE BMPInterface Comments: 12 hours fasting, may have water.Order Date: 12/03/15[facility] Dxlscxytey9[address]. [place], [place], [address] (BMP) GAP 4 (Abnormal) Range: 5-15 CO2 [...] 12 hours fasting, may have water.Order Date: 12/03/15[facility] Ocwokjsipb6980 [place], [address] VLDL 18 mg/dL (Normal) Range: 5-40 LDL [...] 12 hours fasting, may have water.[facility] Date: [facility] [address]qtwxlwul[address] [place], [address] D BILI 0.11 mg/dL (Normal) Range: 0.00-0.30 T BILI 0.40 mg/dL (Normal) Range: 0.20-1.00 ALT 14 U/L (Normal) Range: 12-78 ALK P 47 U/L (Normal) Range: 45-117 AST 12 U/L (Abnormal) Range: 15-37 GLOB 3.3 g/dL (Normal) Range: 2.3-3.5 ALB 2.8 g/dL (Abnormal) Range: 3.4-5.0 T PROT 6.1 g/dL (Abnormal) Range: 6.4-8.2 :40 HgA1C , Office (28245) HgA1C , Office 6.1 % (Normal) Range: 4.6 - 7.1 :40 Blood Glucose , Office (76776) Blood Glucose , Office 208 (Normal) 0-Osj-173575:45 Culture, Body Fluid Comments: [facility] Vteplvdcbt8533 [address]. [place], [place], [address] CUBF See Note (Normal) Comments: List Antibiotics Last 48 Hours? UNKList Antibiotics to be Started? UNKComments: SYNOVIAL FLUID LEFT KNEE..Gram StainCentrifuged Specimen? Culture performed on centrifuged specimen Gram Stain 3+ Red Blood Cells 1+ White Blood Cells No organisms seen Body Fluid CultNO GROWTH IN 14 DAYS Cult, AnaerobicNo growth in 5 days. 6-Wyf-239080:45 Synovial Fluid RBC, WBC AND Comments: [facility] Locuawfngm1187 [address] [place], [place], [address] Diff PATH COM/SYFL May follow (Normal) MONO [...] Yellow (Normal) SYNOVIAL SOURCE LEFT KNEE (Normal) 65-Ave-061574:21 CBC W/Diff, Automated Comments: [facility] Xxylsqllkl6359 [address] [place], [place], [address] Absolute Lymph 1.21 {X10_3/ul} (Normal) Range: 0.83-4.51 [...] 4.2-5.4 WBC 6.5 K/mm3 (Normal) Range: 4.4-11.0 40-Ywz-996544:21 Comprehensive Metabolic Profil Comments: [facility] Oejtdamstg20[address] [place], [place], [address] GAP 8 (Normal) Range: 5-15 CO2 23.0 [...] <126 mg/dLsuggests IMPAIRED HOMEOSTASIS per A.D.A. criteria. 8-Myv-391892:31 CBC W/Diff, Automated Comments: [facility] Wdvlkkhihd1085 [address] [place], [place], [address] Absolute Lymph 1.21 {X10_3/ul} (Normal) Range: 0.83-4.51 [...] 4.2-5.4 WBC 8.5 K/mm3 (Normal) Range: 4.4-11.0 8-Dui-423015:31 Comprehensive Metabolic Profil Comments: [facility] Vdqjmfeocd8102 [place], [address] GAP 9 (Normal) Range: 5-15 CO2 27.0 [...] 126 mg/dLsuggests DIABETES MELLITUS per A.D.A. criteria. 4-Ewu-174754:49 Blood Glucose , Office (47052) Blood Glucose , Office 219 (Normal) 6-Jof-492726:49 HgA1C , Office (50056) HgA1C , Office 7.5 % (Abnormal) Range: 4.6 - 7.1 41-Mrj-907435:27 C-Peptide Comments: [facility] (refer to report for specific site)refer to report for address and phone number C PEPTIDE 31760 7.0 ng/mL (Abnormal) Range: 1.1-4.4 Comments: C-Peptide reference interval is for fasting patients.Performed at: [address] [id number] Director: Lex Lai PhD, Phone: [phone] 54-Ymt-687800:27 CBC W/Diff, Automated Comments: [facility] Qpzrbmblda5428 [address] [place], [address] ANISO 1+ (Normal) Absolute Lymph [...] 4.2-5.4 WBC 8.3 K/mm3 (Normal) Range: 4.4-11.0 86-Nzf-241349:27 Comprehensive Metabolic Profil Comments: [facility] Rtwefrfapa3591 [address]vara[address]ston [place], [place], [address] GAP 9 (Normal) Range: 5-15 CO2 25.0 [...] 126 mg/dLsuggests DIABETES MELLITUS per A.D.A. criteria. 75-Ery-102807:27 Hemoglobin A1c Comments: [facility] Ozbgmyfhsb9998 [facility] [place], [address] HGB A1C 7.5 % (Abnormal) Range: 4.2-6.3 93-Zgy-895673:27 Microalb:Creat Ratio,Random UR Comments: [facility] Tmphnawnhd1206 [facility] [place], [address] MALB:CREAT 6.7 {mg/g_CRE} (Normal) MICROALBUMIN,UR 9.6 mg/L (Normal) UR CREAT 144.00 mg/dL (Normal) 62-Iqn-705254:27 Miscellaneous Lab Procedure Comments: Test(s) Ordered: ISLET CELL ANTIBODY [id number] SERUM/[facility] Zrcncoqtox5885 [facility] [place], [address] MIS Comments: TEST RESULT UNITS REFERENCE INTERVALAntipancreatic Islet Cells Negative Neg:<1:1 TEST LAB (Normal) ING PERFORMED AT [facility]. ORIGINAL REPORT ON FILE IN LAB CONTAINS ADDITIONAL TEST SITE INFORMATION. TEST 56-Aug-110068:25 HAPTOGLOBIN (09108) Comments: PATIENT NOT FASTINGPERFORMED BY: [facility] [id number] Haptoglobin 259 mg/dL (Abnormal) Range: 34-200 30-Xqs-141648:25 SPEP (01693) Comments: PATIENT NOT FASTINGPERFORMED BY: [facility] [id number] Please note: SPRCS (Normal) Comments: Protein electrophoresis scan will follow via computer, mail, orcourier delivery. A/G Ratio 0.9 (Normal) Range: 0.7-1.7 Globulin, Total 3.4 g/dL (Normal) Range: 2.2-3.9 M-Anam Not Observed g/dL (Normal) Gamma Globulin 0.8 g/dL (Normal) Range: 0.4-1.8 Beta Globulin 1.2 g/dL (Normal) Range: 0.7-1.3 Dqreb-3-Mukbaews 1.1 g/dL (Abnormal) Range: 0.4-1.0 Xfqhc-3-Dfdvwkxj 0.3 g/dL (Normal) Range: 0.0-0.4 Albumin 3.2 g/dL (Normal) Range: 2.9-4.4 Protein, Total, Serum 6.6 g/dL (Normal) Range: 6.0-8.5 90-Zzd-443576:25 UPEP (46664) Comments: PATIENT NOT FASTINGPERFORMED BY: [facility] [id number] Please note: SPRCS (Normal) Comments: Protein electrophoresis scan will follow via computer, mail, orcourier delivery. M-Anam, % Not Observed % (Normal) Gamma Globulin, U 10.2 % (Normal) Beta Globulin, U 22.4 % (Normal) Eqyqt-2-Dvvmebkq, U 9.8 % (Normal) Jftds-0-Lqhumzkw, U 1.8 % (Normal) Albumin, U 55.8 % (Normal) Protein,Total,Urine 42.4 mg/dL (Normal) 42-Clf-803579:25 RETICULOCYTE COUNT MANUL Comments: PATIENT NOT FASTINGPERFORMED BY: [employer] [address] [id number] (30120) Reticulocyte Count 2.0 % (Normal) Range: 0.6-2.6 72-Gwd-500278:25 IRON BINDING CAPACITY (TIBC) Comments: PATIENT NOT FASTINGPERFORMED BY: [employer] [address] [id number] (82571) Iron Saturation 4 % (Abnormal) Range: 15-55 Iron, Serum 14 ug/dL (Abnormal) Range: 27-139 UIBC 372 ug/dL (Abnormal) Range: 118-369 Iron Bind.Cap.(TIBC) 386 ug/dL (Normal) Range: 250-450 83-Qsv-027707:25 FERRITIN (18708) Comments: PATIENT NOT FASTINGPERFORMED BY: [employer] Umkspu[address] [id number] Ferritin, Serum 19 ng/mL (Normal) Range: 15-150 91-Sxz-548352:25 CBC, PLATELETS & AUT DIFF Comments: PATIENT NOT FASTINGPERFORMED BY: [facility] Corporation[facility] J[address]ixv[address] [id number] Information: [id number] (99115) Immature Grans (Abs) 0.0 {x10E3/uL} (Normal) Range: [...] (Normal) Range: 3.4-10.8 :32 HgA1C , Office (26602) HgA1C , Office 8.2 % (Abnormal) Range: 4.6 - 7.1 :16 CBC W/Diff, Automated Comments: DR.N THOMAS ORDERED TSH LIPID VITD CBCD B12 FOLOTES CMP MIACRE ORDERED LIPID LIVERDR.MARYAM ORDERED CMP [facility]CDW[facility] Tasqqjkmjb4452 [facility] [place], [place], [phone] OVALOCYTE 1+ (Normal) BASO STIP RARE (Normal) [...] Patient Taking Vitamins or Folic Acid Supplements? [facility] [place], [address] GAP 9 (Normal) Range: 5-15 CO2 26.0 [...] Patient Taking Vitamins or Folic Acid Supplements? [place] [address] [address] [place], [place], [address] FOLATES 11.20 ng/mL (Normal) Range: 3.1-17.5 :16 Lipid Profile Comments: DR.N THOMAS ORDERED TSH LIPID VITD CBCD B12 FOLOTES CMP LUCÍA ORDERED LIPID LIVERDR.VELLANMÓNICA ORDERED CMP CBCDIs Patient Taking Vitamins or Folic Acid Supplements? [facility] [place], [address] VLDL 32 mg/dL (Normal) Range: [...] ORDERED TSH LIPID VITD CBCD B12 FOLOTES [facility] LUCÍA ORDERED LIPID LIVERDR.MARYAM ORDERED [facility] CBCDSum[facility] Taxmkxeftk2933 [facility]. [place], [place], [address] MALB:CREAT 7.5 {mg/g_CRE} (Normal) MICROALBUMIN,UR 10.1 mg/L (Normal) UR CREAT 135.00 mg/dL (Normal) :16 Thyroid Stim Hormone (TSH) Comments: DR.N THOMAS ORDERED TSH LIPID VITD CBCD B12 FOLOTES [facility] LUCÍA ORDERED LIPID LIVERDR.MARYAM ORDERED [facility] CBCDIs Patient Taking Vitamins or Folic Acid Supplements? [facility] bhhxwspg8684 [facility] [place], [place], [address] TSH 1.90 {uIU/mL} (Normal) Range: 0.358-3.74 :16 Vitamin B12 324 pg/mL (Normal) Comments: DR.N THOMAS ORDERED TSH LIPID VITD CBCD B12 FOLOTES [facility] LUCÍA ORDERED LIPID LIVERDR.MARYAM ORDERED [facility] CBCDSumma [facility] Aysqmkufye[address] [place], [place], [address] Range: 211-911 :16 Vitamin D,25 Hydroxy Comments: DR.N THOMAS ORDERED TSH LIPID VITD CBCD B12 FOLOTES [facility] LUCÍA ORDERED LIPID LIVERDR.JOHNLANKI ORDERED CMP CBCDWBrown [facility] Hospital Yiaxgdcoas[address] [place], [phone] Vitamin D 25-OH 24.7 ng/mL (Normal) Comments: Vitamin D 25(OH) Status Range Deficiency <20 ng/mL (50nmol/L) Insuffciency 20 - 30 ng/mL (50 - 75 nmol/L) Sufficiency 30 - 100 ng/mL (75 - 250 nmol/L) Toxicity >100 ng/mL (>250 nmol/L) 1-Hzt-062038:25 OVA & PARASITE DIR SMEAR Comments: PATIENT NOT FASTINGPERFORMED BY: TEAM INTERVALin [place] [id number] ([id number]) Result 1 NOCP (Normal) Comments: No ova, cysts, or parasites seen. Ova + Parasite Exam Final report (Normal) Comments: These results were obtained using wet preparation(s) and trichromestained smear. This test does not include testing for Cryptosporidiumparvum, Cyclospora, or Microsporidia. 3-Sts-093371:25 OCCULT BLOOD FECES SCREEN Comments: PATIENT NOT FASTINGPERFORMED BY: [employer] Dzusgp3296 [facility] [id number] (14325) Occult Blood, Fecal, IA Positive (Abnormal) 4-Yhb-008844:25 LEUKOCYTE COUNT, FECAL (94441) Comments: PATIENT NOT FASTINGPERFORMED BY: [employer] Yzvmcb0217 [facility] [id number] Result 1 NWBC (Normal) Comments: No white blood cells seen. White Blood Cells (WBC), Final report (Normal) Stool 2-Vyk-729070:24 C-DIFFICILE, STOOL (75367) Comments: PATIENT NOT FASTINGPERFORMED BY: [employer] [facility] Rgisez4[address] [employer].comin [place] [id number] Information: [id number] C difficile Toxins A+B, EIA Negative (Normal) 6-Gyb-528522:25 LAINE CULTURE-STOOL (32022) Comments: PATIENT NOT FASTINGPERFORMED BY: [employer] [facility] Fmgehl7174 [address] [employer] [id number] Information: SRC:STL [id number] E coli Shiga Toxin EIA Negative (Normal) Result 1 NCI (Normal) Comments: No Campylobacter species isolated. Campylobacter Culture Final report (Normal) Result 1 NSS (Normal) Comments: No Salmonella or Shigella recovered. Salmonella/Shigella Screen Final report (Normal) :22 Blood Glucose , Office (62844) Blood Glucose , Office 191 (Normal) :22 HgA1C , Office (42390) HgA1C , Office 7.4 % (Abnormal) Range: 4.6 - 7.1 :19 CBC W/Diff, Automated Comments: [facility] Gobtciywbc33[address] [place], [place], [address] Absolute Lymph 1.86 {X10_3/ul} (Normal) Range: 0.83-4.51 [...] 4.2-5.4 WBC 8.4 K/mm3 (Normal) Range: 4.4-11.0 2-Qpu-296745:19 Comprehensive Metabolic Profil Comments: [facility] Syympjdnjo[address] [place], [address] GAP 10 (Normal) Range: 5-15 CO2 24.0 [...] 126 mg/dLsuggests DIABETES MELLITUS per A.D.A. criteria. 73-Cka-525750:50 CALCIFEDIOL (93639) Comments: PATIENT NOT FASTINGPERFORMED BY: [facility] K[address]wex[address] [id number] Vitamin D, 25-Hydroxy 20.8 ng/mL (Abnormal) Range: 30.0-100.0 Comments: Vitamin D deficiency has been defined by the [place] of[place] and an Endocrine Society practice guideline as alevel of serum 25-OH vitamin D less than 20 ng/mL (1,2).The Endocrine Society went on to further define vitamin Dinsufficiency as a level between 21 and 29 ng/mL (2).1. IOM ([place] of [employer]). 2010. Dietary reference intakes for calcium and D. [place]: The National Academies Press.2. Brandon MF, Bakari BOYD, Vicente IZAGUIRRE, et al. Evaluation, treatment, and prevention of vitamin D deficiency: an Endocrine Society clinical practice guideline. JCEM. 2010; 96(7):1911-30. 18-Bye-528944:50 POTASSIUM SERUM (25525) Comments: PATIENT NOT FASTINGPERFORMED BY: [employer] TechnologiesPSE&G Children's Specialized HospitalJmfwft4760 [address] [employer] [id number] Potassium, Serum 5.4 mmol/L (Abnormal) Range: 3.5-5.2 79-Zdc-483587:50 MAGNESIUM (26467) Comments: PATIENT NOT FASTINGPERFORMED BY: [facility]PSE&G Children's Specialized HospitalLaitxw6743 [address] [place]wn[place] [id number] Magnesium, Serum 1.8 mg/dL (Normal) Range: 1.6-2.3 66-Fzk-881879:50 AMMONIA (67541) Comments: PATIENT NOT FASTINGPERFORMED BY: [place] [address]6977 [facility] [id number] BY: [facility] Baxzfw0119 [address] [facility] HospitalDublin [place] [id number] Ammonia, Plasma 40 ug/dL (Normal) Range: 19-87 08-Aqd-258305:50 SPEP (82322) Comments: PATIENT NOT FASTINGPERFORMED BY: [facility] Dpfwdb2276 [address] [place]wn[place] [id number] Information: [id number] Please note: SPRCS (Normal) Comments: Protein electrophoresis scan will follow via computer, mail, orcourier delivery. A/G Ratio 1.2 (Normal) Range: 0.7-2.0 Globulin, Total 3.0 g/dL (Normal) Range: 2.0-4.5 M-Anam Comment: g/dL (Normal) Comments: [facility]ETR[facility] [place] Gamma Globulin 0.6 g/dL (Normal) Range: 0.5-1.6 Beta Globulin 1.0 g/dL (Normal) Range: 0.6-1.3 Ielof-9-Bxsyykcl 1.1 g/dL (Normal) Range: 0.4-1.2 Dkmin-0-Xzlmkrft 0.3 g/dL (Normal) Range: 0.1-0.4 Albumin 3.5 g/dL (Normal) Range: 3.2-5.6 Protein, Total, Serum 6.5 g/dL (Normal) Range: 6.0-8.5 26-Sqe-875230:54 CREATININE CLEARANCE Comments: PATIENT NOT FASTINGPERFORMED BY: MYagonism.comAtrium Health Mercy [id number] Information: [id number] START 07/18/15@630A M FINISH 07/18@7AM (83158) Creatinine Clearance 57 mL/min (Abnormal) Range: 88-128 [...] Creatinine, Serum 0.75 mg/dL (Normal) Range: 0.57-1.00 46-Oph-463035:54 Total Protein,24 Hour Urine Comments: PATIENT NOT FASTINGPERFORMED BY: Cleeng6370 [address] [facility] [id number]; has fu 4-28 (69537) Prot,24hr calculated 354.6 {mg/24_hr} (Abnormal) Range: 30.0-150.0 Protein,Total,Urine 39.4 mg/dL (Abnormal) Range: 0.0-15.0 Comments: Effective August 02, 2015 the reference interval for Protein, Total, Urine will be changing to: Not Estab. 44-Ynn-437631:45 URINE VMA (39436) Comments: 24 hour urine; PATIENT NOT FASTINGPERFORMED BY: [employer] [id number] VMA, Urine, 24hr 2.3 {mg/24_hr} (Normal) Range: 0.0-7.5 VMA, Urine 3.3 mg/L (Normal) 16-Fnc-010408:50 RENIN (48401) Comments: PATIENT NOT FASTINGPERFORMED BY: [employer] [id number] BY: [facility] CorporationAscension Macomb[address] [id number] Information: [id number] Renin Activity, Plasma 1.17 {ng/mL/hr} (Normal) Comments: Adult Normal Salt Intake: Upright 1.31 - 3.95 Supine 0.15 - 2. 33 . Salt Excretion (Na mEq/24 hr): Na= 0 - 30 8.82 - 23.86 Na= 30 - 75 4.09 - 7.73 Na= 75 - 150 1.44 - 2.80 Na= >150 0.39 - 1.31 03-Mum-511944:45 METANEPHRINES - URINE (14674) Comments: PATIENT NOT FASTINGPERFORMED BY: [employer] [id number] Metanephrine, U,24hr 50 {ug/24_hr} (Normal) Range: 45-290 Comments: (Hypertensive) >17 years 11 months: 35 - 460 Metanephrine, Ur 71 ug/L (Normal) Normetanephr.,U,24h 319 {ug/24_hr} (Normal) Range: 82-500 Comments: (Hypertensive) >17 years 11 months: 110 - 1050 Normetanephrine, Ur 455 ug/L (Normal) 15-Rhi-285331:45 CATECHOLAMINES TOTAL, URINE Comments: PATIENT NOT FASTINGPERFORMED BY: [facility] [id number] Information: SRC:UR [id number] START 07/20@9AM JENNIE CRUZ (83301) Dopamine, Ur, 24hr 90 {ug/24_hr} (Normal) Range: 0-510 Dopamine, Urine 128 ug/L (Normal) Norepinephrine,U,24h 48 {ug/24_hr} (Normal) Range: 0-135 Norepinephrine, Ur 68 ug/L (Normal) Epinephrine, U, 24hr 1 {ug/24_hr} (Normal) Range: 0-20 Epinephrine, Urine 2 ug/L (Normal) :50 HgA1C , Office (71474) HgA1C , Office 7.7 % (Abnormal) Range: 4.6 - 7.1 :20 CBC W/Diff, Automated Comments: [facility] Hdfbyxmmrx[address] [place], [place], [address] Absolute Lymph 1.40 {X10_3/ul} (Normal) Range: 0.83-4.51 [...] Range: 4.4-11.0 :20 Comprehensive Metabolic Profil Comments: [facility] Ykrwevmhnt[address] [place], [place], [address] GAP 8 (Normal) Range: 5-15 CO2 26.0 [...] 200 mg/dLsuggests DIABETES MELLITUS per A.D.A. criteria. 90-Nnq-086984:49 HgA1C , Office (58337) HgA1C , Office 6.6 % (Normal) Range: 4.6 - 7.1 5-Hjj-284032:04 CBC W/Diff, Automated Comments: [facility] [address] [place], [place], [address] Absolute Lymph 1.54 {X10_3/ul} (Normal) Range: 0.83-4.51 [...] 4.2-5.4 WBC 9.0 K/mm3 (Normal) Range: 4.4-11.0 7-Rrv-856090:04 Comprehensive Metabolic Profil Comments: [facility] Gqoosodffu74[address]. [place], [place], [address] GAP 11 (Normal) Range: 5-15 CO2 24.0 [...] <126 mg/dLsuggests IMPAIRED HOMEOSTASIS per A.D.A. criteria. 17-Pcd-34261:10 Basic Metabolic Profile (BMP) Comments: Serial Specimen #1, #2 or #3? 1'TROP' Serial specimen #1, #2, #3, or #4: 1[facility] Ymtjfspzja03[address] [place], [place], [address] GAP 9 (Normal) Range: 5-15 CO2 26.0 [...] 126 mg/dLsuggests DIABETES MELLITUS per A.D.A. criteria. 72-Cty-04018:10 Carboxyhemoglobin Frac (CO) Comments: [facility] Isiamnkbtn4464 [facility]. [place], [place], [address](093) COHb 1.3 % (Normal) Range: 0.0-1.5 Comments: * NON-SMOKER RANGE 1.6 - 5.0% * LIGHT SMOKER RANGE 5.1 - 9.0% * HEAVY SMOKER RANGE :10 CBC W/Diff, Automated Comments: [facility] Sspmyzevxd8910 [facility]. [place], [place], [phone] Absolute Lymph 0.87 {X10_3/ul} (Normal) Range: 0.83-4.51 [...] Serial specimen #1, #2, #3, or #4: [address] [place] [address] [id number] [place], [address] CKRI 1.9 % (Abnormal) Range: 0.0-1.4 Comments: RELATIVE INDEX >1.5% IS PRESUMPTIVELY POSITIVE CPKMB 1.0 ng/mL (Normal) Range: 0.0-5.0 Comments: CK-MB and RI Interpretation MB Relative Index Non-AMI <or= 5 NA Indeterminate > 5 <or= 4 AMI > 5 > 4 CPK TOTAL 53 U/L (Normal) Range: 26-192 [id number] Troponin-I Comments: Serial Specimen #1, #2 or #3? 1'TROP' Serial specimen #1, #2, #3, or #4: [address] [place] [address] [id number] [facility] [place], [address] TROPONIN-I 0.03 ng/mL (Normal) Comments: TROPONIN-I EXPECTED VALUES <0.05 NEGATIVE 0.06 - 0.59 AT RISK OF NV > OR = 0.60 SUGGEST NV [id number] CBC W/Diff, Automated Comments: Test performed at:[facility] [id number] [place] [address] Absolute Lymph 1.31 {X10_3/ul} (Normal) [...] 4.2-5.4 WBC 6.4 K/mm3 (Normal) Range: 4.4-11.0 [id number] Comprehensive Metabolic Profil Comments: Test performed at:[facility] [id number] [place] [address] GAP 7 (Normal) Range: 5-15 [...] Comments: Please note revised CREATININE reference range tzondbnwt22/22/2015. BUN 14 mg/dL (Normal) Range: 7-18 GLU 145 mg/dL (Abnormal) Range: 70-110 Comments: Fasting Glucose result greater than or equal to 126 mg/dLsuggests DIABETES MELLITUS per A.D.A. criteria. :17 HgA1C , Office ([id number]) HgA1C , Office 6.2 % (Normal) Range: 4.6 - 7.1 :34 CBC W/Diff, Automated Comments: Test performed at:[facility] [address]sw[address] [place] [address] Absolute Lymph 0.90 {X10_3/ul} (Normal) [...] 4.2-5.4 WBC 5.2 K/mm3 (Normal) Range: 4.4-11.0 6-Jnc-352953:34 Comprehensive Metabolic Profil Comments: Test performed at:[facility] Lyvvxckfsm66[address] [place] [address] GAP 7 (Normal) Range: 5-15 CO2 28.0 [...] <126 mg/dLsuggests IMPAIRED HOMEOSTASIS per A.D.A. criteria. 9-Icr-040483:34 Lipid Profile Comments: Test performed at:[facility] [address] [place] [address] VLDL 33 mg/dL (Normal) Range: 5-40 LDL [...] 200-240 mg/dL Borderline >240 mg/dL High Risk 9-Usu-583582:34 Thyroid Stim Hormone (TSH) Comments: Test performed at:[facility] [address] [place] [address] TSH 2.56 {uIU/mL} (Normal) Range: 0.358-3.74 99-Diu-731514:02 CBC W/Diff, Automated Comments: Test performed at:[facility] [address] [place] [address] [id number] Absolute Lymph 1.28 {X10_3/ul} (Normal) Range: 0.83-4.51 [...] 4.2-5.4 WBC 6.1 K/mm3 (Normal) Range: 4.4-11.0 72-Ypz-686394:02 Comprehensive Metabolic Profil Comments: Test performed at:[facility] Aqvtswxmgu[address] [place], [place] [id number] GAP 9 (Normal) Range: 5-15 CO2 28.0 [...] per A.D.A. criteria. :47 HgA1C , Office (19077) HgA1C , Office 5.7 % (Normal) Range: 4.6 - 7.1 :47 Blood Glucose , Office (17711) Blood Glucose , Office 132 (Normal) :39 CBC W/Diff, Automated Comments: Test performed at:[facility] Vh[address]ky[address] [place] [address] Absolute Lymph 1.14 {X10_3/ul} (Normal) Range: 0.83-4.51 [...] 4.2-5.4 WBC 6.0 K/mm3 (Normal) Range: 4.4-11.0 11-Nts-346590:39 Comprehensive Metabolic Profil Comments: Test performed at:[facility] [address] [place], [place] [id number] GAP 7 (Normal) Range: 5-15 CO2 27.0 [...] 7-18 GLU 100 mg/dL (Normal) Range: 70-110 4-Isn-463579:38 TSH (20779) Comments: PATIENT NOT FASTINGPERFORMED BY: [facility] Ivmaap[address] [facility] [id number] TSH 4.120 {uIU/mL} (Normal) Range: 0.450-4.500 2-Lag-337572:11 URINE LAINE CULTURE-IDENTIFICATN Comments: PATIENT NOT FASTINGPERFORMED BY: [facility] [facility] [id number] (84485) Antimicrobial MIHEAD (Normal) Comments: S = Susceptible; [...] primarily for treating urinary tract infections. (CLSI, [id number],2009) Result 1 ECV (Abnormal) Comments: Escherichia coli, identified by an automated biochemical system.1,000 Colonies/mLProteus mirabilis/penneri1,000 Colonies/mL Urine Final report Culture,Comprehensive (Abnormal) 2-Eas-704653:11 URINALYSIS (60585) Comments: PATIENT NOT FASTINGPERFORMED BY: [facility] [facility] [address] [id number] Information: [id number] Microscopic Examination MICNIP (Normal) Comments: Microscopic not indicated and not performed. Nitrite, Urine Negative (Normal) Urobilinogen,Semi-Qn 0.2 mg/dL (Normal) Range: 0.0-1.9 Bilirubin Negative (Normal) Occult Blood Negative (Normal) Ketones Negative (Normal) Glucose Negative (Normal) Protein Negative (Normal) WBC Esterase Negative (Normal) Appearance Clear (Normal) Urine-Color Yellow (Normal) pH 6.0 (Normal) Range: 5.0-7.5 Specific Roselle 1.021 (Normal) Range: 1.005-1.030 :38 CBC, Platelets & Auto Diff Comments: PATIENT NOT FASTINGPERFORMED BY: [facility] TechnologiesPSE&[facility] HospitalAzpifq9230 [facility] [id number] Information: [id number] (53468) Immature Grans (Abs) 0.0 {x10E3/uL} (Normal) Range: [...] 6.5 {x10E3/uL} (Normal) Range: 3.4-10.8 :38 Lipase (61995) Comments: PATIENT NOT FASTINGPERFORMED BY: [facility] TechnologiesP[facility] Special[facility] HospitalRxweph2868 [facility] [id number] Lipase, Serum 19 U/L (Normal) Range: 0-59 :38 Amylase (89994) Comments: PATIENT NOT FASTINGPERFORMED BY: [facility] [facility] [address] [id number] Amylase, Serum 32 U/L (Normal) Range: 31-124 8-Haz-168894:38 Metabolic Panel, Comprehensive Comments: PATIENT NOT FASTINGPERFORMED BY: [facility] [facility] [address] [id number] (18351) ALT (SGPT) 17 [iU]/L (Normal) Range: 0-32 [...] (Abnormal) Range: 65-99 :28 HgA1C , Office (26114) HgA1C , Office 7.9 % (Abnormal) Range: 4.6 - 7.1 :28 Blood Glucose , Office (35262) Blood Glucose , Office 170 (Normal) :05 HgA1C , Office (69245) HgA1C , Office 7.5 % (Abnormal) Range: 4.6 - 7.1 :05 Blood Glucose , Office (67438) Blood Glucose , Office 267 (Normal) :19 [...] 200 mg/dLsuggests DIABETES MELLITUS per A.D.A. criteria. 1-Hkk-774922:19 TSH 2.09 {uIU/mL} (Normal) Comments: DR FRANCISCO ORDERED CMP CBCDDR BONEZZZeny ORDERED CMP CBCD Range: 0.358-3.74 :03 HgA1C , Office (73521) HgA1C , Office 9.1 % (Abnormal) Range: 4.6 - 7.1 :03 Blood Glucose , Office (74846) Blood Glucose , Office 136 (Normal) 18-Yvn-457762:22 Blood Glucose , Office (66343) Blood Glucose , Office 204 (Normal) 75-Bvt-718027:21 HgA1C , Office (82933) HgA1C , Office 7.3 % (Abnormal) Range: 4.6 - 7.1 :45 HgA1C , Office (45947) HgA1C , Office 7.3 % (Abnormal) Range: 4.6 - 7.1 :45 Blood Glucose , Office (24471) Blood Glucose , Office 176 (Normal) Comments: [...] 126 mg/dLsuggests DIABETES MELLITUS per A.D.A. criteria. 37-Pgp-626134:33 HgA1C , Office (45828) HgA1C , Office 7.1 % (Normal) Range: 4.6 - 7.1 98-Uwu-857632:33 Blood Glucose , Office (87521) Blood Glucose , Office 127 (Normal) 11-Lcz-554678:40 CBC With Differential/Platelet Comments: PERFORMED BY: [facility] [facility] [address] [id number] Immature Grans (Abs) 0.0 {x10E3/uL} (Normal) Range: [...] 3.77-5.28 WBC 6.2 {x10E3/uL} (Normal) Range: 4.0-10.5 07-Pfn-054668:40 Comp. Metabolic Panel (14) Comments: PERFORMED BY: LabCoP[facility] Specialized HospitalSzibxg4650 [facility] [id number] ALT (SGPT) 24 [iU]/L (Normal) Range: 0-32 [...] (Abnormal) TSH 3.580 {uIU/mL} Comments: PERFORMED BY: [employer] [facility]70 [facility] [id number] :40 (Normal) Range: 0.450-4.500 :38 PREALBUMIN (73692) Comments: PATIENT NOT FASTINGPERFORMED BY: [employer] [facility] Sqzwgj[address] [id number] Information: ADD [id number] AND DRAW FEE 99 6660 Prealbumin 21 mg/dL (Normal) Range: 20-40 :35 HgA1C , Office (71797) HgA1C , Office 7.3 % (Abnormal) Range: 4.6 - 7.1 :01 HgA1C , Office (53606) HgA1C , Office 7.4 % (Abnormal) Range: 4.6 - 7.1 41-Sbg-703582:46 HgA1C , Office (35035) HgA1C , Office 7.3 % (Abnormal) Range: 4.6 - 7.1 :46 Blood Glucose , Office (84269) Blood Glucose , Office 193 (Normal) :12 HgA1C , Office (19468) HgA1C , Office 6.7 % (Normal) Range: 4.6 - 7.1 64-Jum-771938:12 Blood Glucose , Office (28920) Blood Glucose , Office 103 (Normal) 33-Yay-371724:26 CBCMD RBCM NORM C+C {NORMAL} (Normal) PE [...] 4.2-5.4 WBC 7.2 K/mm3 (Normal) Range: 4.4-11.0 47-Yjo-982777:26 CMP GAP 8 (Normal) Range: 5-15 CO2 [...] 7-18 GLU 80 mg/dL (Normal) Range: 70-110 24-Cda-236332:26 LIPID VLDL 12 mg/dL (Normal) Range: 5-40 [...] 10.9 mg/L (Normal) CREU 76.7 mg/dL (Normal) 31-Muj-889383:21 HgA1C , Office (18728) HgA1C , Office 6.7 % (Normal) Range: 4.6 - 7.1 :21 Blood Glucose , Office (17602) Blood Glucose , Office 88 (Normal) 1-Vgk-817674:06 CBCD SMEAR COMMENT SeeNote (Normal) Comments: Result: [...] (Normal) Range: 8-252 :30 HgA1C , Office (04410) HgA1C , Office 8.4 % (Abnormal) Range: 4.6 - 7.1 85-Aow-812423:30 Blood Glucose , Office (83309) Blood Glucose , Office 232 (Normal) 76-Bsm-444365:39 HgA1C , Office (54014) HgA1C , Office 8.2 % (Abnormal) Range: 4.6 - 7.1 93-Daq-537846:39 Blood Glucose , Office (79768) Blood Glucose , Office 181 (Normal) 95-Iph-328278:20 CBCD,SMEAR DIFF Comments: ORDERED CBCD,CMPDR.ROSELYN ORDERED CBCMD,LIPID,CMP,MICROALB [...] mg/dL suggests DIABETES MELLITUS per A.D.A. criteria. 03-Uam-768546:20 LIPID Comments: ORDERED CBCD,CMPDRLAWANDA ORDERED CBCMD,LIPID,CMP,MICROALB LDL [...] 200-240 mg/dL Borderline >240 mg/dL High Risk 51-Edx-808015:04 Blood Glucose , Office (24518) Blood Glucose , Office 244 (Normal) 85-Ceq-940478:36 HgA1C , Office (28271) HgA1C , Office 7.5 % (Abnormal) Range: 4.6 - 7.1 14-Auk-654804:36 Blood Glucose , Office (99771) Blood Glucose , Office 178 (Normal) 48-Opv-609444:24 HgA1C , Office (48434) HgA1C , Office 6.8 % (Normal) Range: 4.6 - 7.1 34-Lkd-627358:24 Blood Glucose , Office (49230) Blood Glucose , Office 141 (Normal) Comments: [...] mg/dL suggests DIABETES MELLITUS per A.D.A. criteria. 60-Tts-242948:58 LIPID Comments: DR DEMPSEY ORDERED LIPID DR FRANCSICO ORDERED CBCDBOTH DRS ORDERED CMP LDL 82 [...] mg/dL High Risk :02 HgA1C , Office (76797) HgA1C , Office 6.9 % (Normal) Range: 4.6 - 7.1 :02 Blood Glucose , Office (04894) Blood Glucose , Office 251 (Normal) :11 [...] DOT DIRECT 52 AU/mL (Normal) :54 ANTI-CCP 478059 > 250 {units} Range: 0-19 (Abnormal) Comments: [...] mm/h (Abnormal) Range: 0-30 :54 HB CORE NL84406 SeeNote (Normal) Comments: Result: NegativePerformed at: [facility] [employer] [id number] Director: Yasmine Cabrera MD, Phone: [phone] at: [facility] [employer] [id number] Director: Jovani Odom MD, Phone: [phone] :[phone] HBsAg 6510 HB SURF AG 6510 SeeNote (Normal) Comments: Result: Negative :54 HEBSAB 6395 < 0.1 (Normal) Range: 0.00-0.99 Comments: Status of Immunity Anti-HBs Level Inconsistent with Immunity 0.00 - 0.99Consistent with Immunity >0.99.An Index Value of 1.00 is equivalent to 10 mIU/mL.However the magnitude of the Index Value is notindicative of the total amount of antibody present. :54 HEP C AB 186909 <0.1 (Normal) Range: 0.0-0.9 Comments: Negative: < 0.8Indeterminate 0.8 - 0.9Positive: > 0.9.In order to reduce the incidence of a false positiveresult, the CDC recommends that all s/co ratiosbetween 1.0 and 10.9 be confirmed with additionalRIBA or PCR testing. :54 RHEUMATOID FAC 539.0 {IU/mL} (Abnormal) :54 VIT D,25 96894 27.3 ng/mL (Abnormal) Range: 32.0-100.0 Comments: Recent studies consider the lower limit of 32.0 ng/mL to gloria threshold for optimal health.Alexander MARY. J Nutr. 2004;135(2):317-22. 05-Oew-747109:30 HAND,MIN 3 VIEWS (MT) Radiology Report See Note (Normal) Comments: Exam Number: [id number] CLINICAL:This a 64-year-old female patient with history of pain. X-RAY EXAMINATION RIGHT HAND TECHNIQUE:Three views of the hand. COMPARISON:None. FINDINGS:Normal visualized carpal bones. Normal metacarpal bones. Normal visualized phalanges. Normal carpal articulations. Normal metacarpophalangeal joints. There are degenerative changesof the interphalangeal joints. There is no d emonstrated soft tissue swelling. IMPRESSION:Chronic degenerative changes, as discussed above. Reported By: VIDHYA NORRIS 08-Mna-657004:29 HAND,MIN 3 VIEWS (MT) Radiology Report See Note (Normal) Comments: Exam Number: [id number] CLINICAL:This is a 64-year-old female patient with [...] as discussed above. Reported By: VIDHYA NORRIS 99-Zph-384446:45 Anti-dsDNA Antibodies Comments: PATIENT WAS FASTINGPERFORMED BY: CB [facility] Gxudty[address] [facility] [id number] BY: [address] [id number] Anti-DNA (DS) Ab Qn 1 {IU/mL} (Normal) Range: 0-9 Comments: Negative <5Equivocal 5 - 9Positive >9 08-Xco-868024:45 Antinuclear Antibodies Comments: PATIENT WAS FASTINGPERFORMED BY: [employer] [id number] BY: [address] [id number] Direct DOT Direct Negative (Normal) C-Reactive Protein, 5.1 mg/L (Abnormal) Comments: PATIENT WAS FASTINGPERFORMED BY: [employer] [id number] BY: [address] [id number] :45 Quant Range: 0.0-4.9 46-Gjl-458916:45 CBC With Differential/Platelet Comments: PATIENT WAS FASTINGPERFORMED BY: [employer] [id number] BY: [address] [id number] Hematology Comments: Note: (Normal) Comments: Verified by [...] >250 {units} Comments: PATIENT WAS FASTINGPERFORMED BY: [employer] [id number] BY: [employer] [id number] 3:45 (Abnormal) Range: 0-19 Comments: Negative <20Weak positive 20 - 39Moderate positive 40 - 59Strong positive >59 92-Lgq-828493:45 Comp. Metabolic Panel Comments: PATIENT WAS FASTINGPERFORMED BY: [employer] [id number] BY: [employer] [id number] (14) Alkaline Phosphatase, S 99 [iU]/L (Normal) [...] ng/mL (Normal) Comments: PATIENT WAS FASTINGPERFORMED BY: [employer] Cddlpa[address] [facility] [id number] BY: [employer] [id number] 13:45 Range: 13-150 20-Aug-2009 Haptoglobin 252 mg/dL Comments: PATIENT WAS FASTINGPERFORMED BY: [employer] Tbnsdh01[address] [facility] [id number] BY: [employer] [id number] 13:45 (Abnormal) Range: 34-200 51-Fzv-301250:45 Iron and TIBC Comments: PATIENT WAS FASTINGPERFORMED BY: [facility] TechnologyPSE&G [facility] Specialized HospitalJrsdto105[address] [place] [address] [id number] BY: [employer] [id number] Iron Bind.Cap.(TIBC) 384 ug/dL (Normal) Range: 250-450 Iron Saturation 6 % (Abnormal) Range: 15-55 Iron, Serum 24 ug/dL (Abnormal) Range: 35-155 UIBC 360 ug/dL (Normal) Range: 150-375 LDH 190 [iU]/L (Normal) Comments: PATIENT WAS FASTINGPERFORMED BY: [employer] [facility] [id number] BY: [employer] [id number] :45 Range: 100-250 :45 Lipid Panel With LDL/HDL Comments: PATIENT WAS FASTINGPERFORMED BY: [employer] [facility] [id number] BY: [employer] [id number] Ratio HDL Cholesterol 41 mg/dL (Normal) Comments: [...] 182 nmol/L Comments: PATIENT WAS FASTINGPERFORMED BY: [employer] [facility] [id number] BY: [employer] [id number] 3:45 Serum (Normal) Range: 73-376 Comments: The reference range for methylmalonic acid has been set at +3sd abovethe mean for healthy blood bank donors. In the clinical assessment ofpatients with megaloblastic anemias a cutoff of +3sd provides gr eaterspecificity in the diagnosis of the vitamin deficiency states,despite the sacrifice of some sensitivity. :45 PT and PTT Comments: PATIENT WAS FASTINGPERFORMED BY: [facility] [id number] BY: [address] [id number] aPTT 29 {sec} (Normal) Range: 24-33 Comments: This test has not been validated for monitoring unfractionated heparintherapy. aPTT-based therapeutic ranges for unfractionated heparintherapy have not been established. For general guidelines onHeparin monitoring, refer to the [facility] Directory of Services. Prothrombin Time 11.1 {sec} Range: 8.7-11.5 (Normal) INR 1.1 (Normal) Range: 0.8-1.2 Comments: Reference interval is for non-anticoagulated patients..Suggested INR therapeutic range for Vitamin Kantagonist therapy:Standard Dose (moderate intensitytherapeutic range): 2.0 - 3.0Higher intensity therapeutic range 2.5 - 3.5 20-Aug-2009 Reticulocyte Count 2.4 % (Normal) Comments: PATIENT WAS FASTINGPERFORMED BY: [facility] [id number] BY: [address] [id number] 13:45 Range: 0.5-3.0 20-Aug-2009 RPR Non Reactive Comments: PATIENT WAS FASTINGPERFORMED BY: [place] [address] [facility] [id number] BY: [address] [id number] 13:45 (Normal) 20-Aug-2009 Sedimentation 13 mm/h (Normal) Comments: PATIENT WAS FASTINGPERFORMED BY: [facility] [facility] [address] [id number] BY: [address] [id number] 13:45 Rate-Westergren Range: 0-30 20-Aug-2009 TSH 2.470 {uIU/mL} Comments: PATIENT WAS FASTINGPERFORMED BY: [facility] [id number] BY: [facility] Yjqefruhoj5358 [facility] [id number] 13:45 (Normal) Range: 0.450-4.500 96-Knk-544911:45 Vitamin B12 and Folate Comments: PATIENT WAS FASTINGPERFORMED BY: [facility] Uzkxvn9222 [place] [id number] BY: [facility] Oxkszytohy6156 [facility] [id number] Folate (Folic Acid), Serum 10.5 ng/mL (Normal) Comments: Indeterminate: 2.2 - 3.0Deficient: <2.2 Vitamin B12 583 pg/mL (Normal) Range: 211-946 84-Ckv-797844:18 HgA1C , Office (23467) HgA1C , Office 7.3 % (Abnormal) Range: 4.6 - 7.1 82-Bzz-407769:18 Blood Glucose , Office (69858) Blood Glucose , Office 167 (Normal) Plan of Care Name Dates Details Instructions Need for Tdap vaccination (Renamed from Need for intpizansj-dkexdkn-ozsxuiumw (Tdap) vaccine, adult/adolescent) : Follow up in 3 months Indication: Need for Tdap vaccination (Renamed from Need for lqoycitnre-cfcftvp-xeuficxzt (Tdap) vaccine, adult/adolescent) Annual Medicare Phyiscal WITHOUT [...] Knee pain Planned Observations Metabolic Panel, Comprehensive (22694)Indication: Rheumatoid arthritis On: 48-Kyl-215979:41 Request Comments: Mar 2017 MICROALBUMIN: CREATININE RATIO (95075) AND (87037)Indication: Diabetes mellitus type II, controlled On: 8-Syz-897475:50 Request VITAMIN B12 AND FOLATES (15293)Indication: Diabetes mellitus type II, controlled On: 6-Kas-937334:50 Request CALCIFEDIOL (03745)Indication: Diabetes mellitus type II, controlled On: 0-Lfj-053547:50 Request TSH (THYROID STIMULATING HORMONE) (22382)Indication: Hypothyroidism On: 5-Aex-321583:50 Request LIPID PANEL (64008)Indication: Hypercholesteremia On: 5-Vcs-609273:50 Request METABOLIC PANEL, COMPREHENSIVE (31213)Indication: Diabetes mellitus type II, controlled On: 0-Uja-729785:50 Request CBC, PLATELETS & AUT DIFF (81442)Indication: Diabetes mellitus type II, controlled On: 4-Nrb-349643:49 Request IRON (20106)Indication: Anemia On: 54-Ykj-752953:05 Request Blood Glucose , Office (62113)Indication: Diabetes mellitus type II, controlled On: 10-Ifu-30744:32 Request MICROALBUMIN: CREATININE RATIO (42497) AND (42002)Indication: Diabetes mellitus type II, controlled On: :06 Request VITAMIN B12 AND FOLATES (59281)Indication: Vitamin D deficiency On: 00-Uae-002305:00 Request VITAMIN D, 1, 25-DIHYDROXY (98758)Indication: Vitamin D deficiency On: 93-Hsi-947248:00 Request LIPID PANEL (35737)Indication: Hypercholesteremia On: 56-Xhp-966598:00 Request METABOLIC PANEL, COMPREHENSIVE (15687)Indication: Diabetes mellitus type II, controlled On: 80-Gqs-258655:00 Request CBC, PLATELETS & AUT DIFF (37418)Indication: Diabetes mellitus type II, controlled On: 22-Hfk-066439:59 Request TSH (THYROID STIMULATING HORMONE) (04388)Indication: Hypothyroidism On: :59 Request POTASSIUM SERUM (75272)Indication: Hyperkalemia On: 62-Eoh-801061:59 Request Comments: 2-3 weeks CALCIFIDIOL (32769) VIT D 25Indication: Vitamin D deficiency On: 69-Aij-379401:34 Request TSH (56667)Indication: Hypothyroidism On: 71-Kds-061076:34 Request MICROALBUMIN: CREATININE RATIO (23247) AND (88190)Indication: Diabetes mellitus type II, controlled On: :34 Request URINALYSIS, W/ MICRO (42632)Indication: Diabetes mellitus type II, controlled On: :34 Request TSH (73179)Indication: Hypothyroidism On: :34 Request METABOLIC PANEL, COMPREHENSIVE (02976)Indication: Diabetes mellitus type II, controlled On: :34 Request LIPID PANEL (19600)Indication: Diabetes mellitus type II, controlled On: :34 Request CBC with auto diff (15881)Indication: Diabetes mellitus type II, controlled On: :34 Request CBC with auto diff (19764)Indication: Hypertension, benign On: 81-Rxt-185179: Request METABOLIC PANEL, COMPREHENSIVE (90869)Indication: Hypertension, benign On: 63-Qcm-392594:26 Request LIPID PANEL (58372)Indication: Hypertension, benign On: 64-Jog-181775:26 Request TSH (64223)Indication: Hypothyroidism On: : Request CBC WITH MANUAL DIFF (22061)Indication: Hypertension, benign On: 73-Gqf-615838:21 Request METABOLIC PANEL, COMPREHENSIVE (61357)Indication: Hypertension, benign On: 19-Smt-002924:21 Request TSH (02876)Indication: Hypothyroidism On: 87-Gmw-670058:21 Request Methymalonic Acid, Serum (11189)Indication: Thrombocytopenia, unspecified On: 09-Zhx-80610:48 Request Vitamin B-12 (cyanocobalamin) (55456)Indication: Thrombocytopenia, unspecified On: :48 Request CBC, Platelets & Auto Diff (51867)Indication: Thrombocytopenia, unspecified On: :48 Request Comments: citrate METABOLIC PANEL, COMPREHENSIVE (48380)Indication: Hypertension, benign On: :59 Request CBC WITH MANUAL DIFF (80226)Indication: Hypertension, benign On: 92-Tmm-003414:59 Request TSH (91621)Indication: Hypothyroidism On: :29 Request METABOLIC PANEL, COMPREHENSIVE (13614)Indication: Hypertension, benign On: :29 Request Blood Glucose , Office (31554)Indication: Diabetes mellitus type II, controlled On: 73-Qrh-267757:35 Request TSH (55550)Indication: Hypothyroidism On: :19 Request METABOLIC PANEL, COMPREHENSIVE (92793)Indication: Diabetes mellitus type II, controlled On: 29-Mxn-605776:19 Request LIPID PANEL (40138)Indication: Diabetes mellitus type II, controlled On: 83-Avv-241833:19 Request Blood Glucose , Office (53446)Indication: Diabetes mellitus type II, controlled On: 00-Xqp-306448:01 Request TSH (94587)Indication: Thyroid disorder On: 00-Qbf-190888:29 Request MICROALBUMIN: CREATININE RATIO (35906) AND (53684)Indication: Diabetes mellitus type II, controlled On: : Request METABOLIC PANEL, COMPREHENSIVE (39943)Indication: Diabetes mellitus type II, controlled On: 54-Xps-008118: Request LIPID PANEL (47463)Indication: Diabetes mellitus type II, controlled On: : Request CBC WITH MANUAL DIFF (97453)Indication: Diabetes mellitus type II, controlled On: : Request CBC WITH MANUAL DIFF (68232)Indication: Diabetes mellitus type II, controlled On: 63-Eau-924050:52 Request MICROALBUMIN: CREATININE RATIO (47598) AND (01571)Indication: Diabetes mellitus type II, controlled On: 96-Bvw-141043:29 Request METABOLIC PANEL, COMPREHENSIVE (41343)Indication: Diabetes mellitus type II, controlled On: 31-Dbi-350865:29 Request LIPID PANEL (33955)Indication: Diabetes mellitus type II, controlled On: 91-Fwh-868682:29 Request CBC WITH MANUAL DIFF (64039)Indication: Diabetes mellitus type II, controlled On: 33-Mhq-813131:29 Request FERRITIN (81126)Indication: Anemia On: 9-Tty-902404:26 Request CBC with manual diff (04484)Indication: Anemia On: 29-May-20119:12 Request HgA1C , Office (11348)Indication: Diabetes mellitus type II, controlled On: 51-Xpj-950576:04 Request METABOLIC PANEL, COMPREHENSIVE (41823)Indication: Hypercholesteremia On: 91-Bcq-419451:15 Request LIPID PANEL (21449)Indication: Hypercholesteremia On: 59-Khb-417549:15 Request Lipid Panel (14978)Indication: Hypercholesteremia On: 05-Klq-299456:50 Request RPR (RAPID PLASMA REAGIN) (41208)Indication: Neuropathy On: 76-Ave-201025:48 Request TSH (21912)Indication: Thyroid disorder On: 41-Zci-466486:48 Request HAPTOGLOBIN (83648)Indication: Anemia On: :46 Request PTT (Activated Partial Thromboplastin Time) (40415)Indication: Anemia On: 46 Request PT (Prothrobim Time) (00914)Indication: Anemia On: :46 Request RETICULOCYTE COUNT (59983)Indication: Anemia On: :46 Request LDH (LD) (LACTATE DEHYDROGENASE) (41261)Indication: Anemia On: :46 Request Methylmalonic acid, serum 78133Uryoxgwhet: Anemia On: 46 Request Vitamin B-12 (cyanocobalamin) (30866)Indication: Anemia On: :46 Request Iron Binding Capacity (TIBC) (32933)Indication: Anemia On: :46 Request Iron (64774)Indication: Anemia On: :46 Request Folic Acid Serum (29277)Indication: Anemia On: :46 Request Ferritin (23348)Indication: Anemia On: 91-Jtc-147525:46 Request DNA ANTIBODY-NATV/DBL ST (39349)Indication: Pain in unspecified joint On: :46 Request CCP ANTIBODY (37129)Indication: Pain in unspecified joint On: 84-Kfu-436261:45 Request SED RATE ERYTHROCYTE (54278)Indication: Pain in unspecified joint On: 39-Wne-431531:45 Request C-REACTIVE PROTEIN (06485)Indication: Pain in unspecified joint On: 27-Lnu-[id number]:45 Request TSH ([id number])Indication: Pain in unspecified joint On: 59-Mry-698359:45 Request RHEUMATOID FACTOR-QUANT ([id number])Indication: Pain in unspecified joint On: :45 Request DOT (ANTINUCLEAR ANTIBODY) ([id number])Indication: Pain in unspecified joint On: 14-Lkv-981092:45 Request CBC WITH MANUAL DIFF ([id number])Indication: Pain in unspecified joint On: 65-Yih-732798:45 Request METABOLIC PANEL, COMPREHENSIVE ([id number])Indication: Pain in unspecified joint On: 01-Olm-568116:45 Request Planned Encounters Medical; 3 Month FU - On: 24-May-2018 9:30 [facility] Mayra Goodman CNP, CNP, Mary E Planned Procedures TDAP VACCINE >7 IM ([id number])By: Maxine On: 20-Feb-2018 Intent Mayra HINTON CNP, Mary E DEXA SCAN AXIAL SKELETON ([id number])By: On: 20-Feb-2018 Intent Mayra Goodman CNP, CNP, Mary E Flu Vaccine (Quadrivalent) [id number]: On: 30-Jan-2018 Intent Mayra Goodman CNP, CNP, Mary E Comments: Lot #[id number]/30/2019Site-L dltd, IMDose prefilled syringegiven by: TATYANA HART reviewed and ABN signed Flu Vaccine (Quadrivalent) [id number]: On: 10-Jan-2017 Intent Mayra Goodman CNP, CNP, Mary E Comments: Lot #[id number]/10/17ite-L dltd, IMDose prefilled syringegiven by:TATYANA Sutton and ABN signed Flu Vaccine (Quadrivalent) [id number]: On: 15-Dec-2015 Intent Rafael Thomas MD Comments: Lot #[id number]/30/17ite-L dltd, IMDose prefilled syringegiven by:TATYANA Sutton and ABN signed MRI OF CERVICAL SPINE WITHOUT On: 19-Jul-2015 Intent CONTRAST ([id number])By: Katelyn Dempsey MD Ultrasound - RenalBy: Roselyn SORTO, On: 06-Jul-2015 Intent Katelyn Pedroza Renal Artery DopplerBy: Roselyn SORTO, On: 06-Jul-2015 Intent Katelyn Pedroza MRI OF CERVICAL SPINE WITH CONTRAST On: 06-Jul-2015 Intent ([id number])By: Katelyn Dempsey MD EMGBy: Katelyn Dempsey MD On: 06-Jul-2015 Intent Nerve ConductionBy: Katelyn Dempsey MD On: 06-Jul-2015 Intent Yovany Comments: right arm MRI OF BRAIN WITH CONTRAST On: 06-Jul-2015 Intent ([id number])By: Katelyn Dempsey MD Kenalog Injection, 10 mgm On: 01-Jun-2015 Intent (J3301)By: Katelyn Dempsey MD EKG ([id number])By: Katelyn Dempsey MD On: 06-Oct-2014 Intent Comments: see scanned document of test done to see results reviewed today with patient Nuclear Stress Test/Stress On: 06-Oct-2014 Intent SPECT/AdenosineBy: Katelyn Dempsey MD Ultrasound - PelvisBy: Roselyn SORTO, On: 26-Jan-2014 Intent Katelyn Pedroaz Flu Vaccine (Quadrivalent) [id number]: On: 26-Jan-2014 Intent Katelyn Dempsey MD Comments: [...] 03-Nov-2013 Intent (J3301)By: Katelyn Dempsey MD EKG ([id number])By: Katelyn Dempsey MD On: 12-May-2013 Intent Comments: see scanned document of test done to see results reviewed today with patient ADMINISTRATION OF INFLUENZA VIRUS On: 11-Feb-2013 Intent VACCINE ([id number])By: Faviola Howell LPN Comments: Lot #[id number]-L dltd, IMDose prefilled syringegiven by:Tony and NISHI signed FLU VAC, SPLIT, >3 YEARS, INTRAMUSC On: 11-Feb-2013 Intent ([id number])By: Faviola Howell LPN Eprescribed prescriptions ([id number])By: On: 11-Feb-2013 Intent Faviola Howell LPN Eprescribed prescriptions ([id number])By: On: 12-Nov-2012 Intent Dante JOLLEYNFaviola IMMUNIZ ADMNIN, 1 VAC, SNGL/COMBO On: 29-Aug-2012 Intent ([id number])By: Brayden FOOTEJoeyie [place] ([id number])By: Brayden On: 29-Aug-2012 Intent DARY Chante Eprescribed prescriptions ([id number])By: On: 13-Aug-2012 Intent Long ASSEMBLER CATERPILLAR SPIDERFaviola Eprescribed prescriptions ([id number])By: On: 14-May-2012 Intent Dante ASSEMBLER CATERPILLAR SPIDERFaviola L Solu -Medrol Injection, 125 mg On: 05-Apr-2012 Intent (J2930)By: Maxine HINTON, Mayra Goodman CNP, Ivonne ADMINISTRATION OF INFLUENZA VIRUS On: 12-Feb-2012 Intent VACCINE (G0008)By: HARESH Griffin FLU VAC, SPLIT, >3 YEARS, INTRAMUSC On: 12-Feb-2012 Intent ([id number])By: HARESH Griffin PNEUM VAC ADLT/IMUMNOSPR, SBC/INTRM On: 13-Nov-2011 Intent ([id number])By: Katelyn Dempsey MD Comments: Lot:Exp:2.14 [id number]:0.5mlRoute:L arm, IMGiven By:JKM ADMINISTRATION OF PNEUMOCOCCAL On: 13-Nov-2011 Intent VACCINE (G0009)By: Katelyn Dempsey MD Eprescribed prescriptions ([id number])By: On: 21-Jul-2010 Intent Katelyn Dempsey MD MAMMOGRAM, SCREENING, BOTH BREASTS On: 22-Apr-2010 Intent ([id number])By: Katelyn Dempsey MD Radiology - Hand - BilateralBy: On: 06-Sep-2009 Intent Katelyn Dempsey MD Comments: copy to [facility] Planned Medications INJECTION, METHYLPREDNISOLONE SODIUM SUCCINATE, [...] controlled : DISCONTINUED - MICROALBUMIN: CREATININE RATIO (35073) AND (22152) Indication: Diabetes mellitus type II, controlled Iron [...] The patient does have durable power of criminal attorney and living will. The patient has noticed dropping activities and interests, getting bored, staying at home rather than doing something new or going out and lack of energy. Other providers contributing to the patient's care are timber framer helper (dr. morris), form builder helper (dr. francisco) and other: ([facility]Encounter Diagnosis: BMI 35.0-35.9,adult, Current nonsmoker (Renamed from Current non-smoker), Annual Medicare Phyiscal WITHOUT abnormal findings (Renamed from Encounter for general adult medical examination without abnormal findings), Postmenopausal (Renamed from Postmenopausal status), Need for Tdap vaccination (Renamed from Need for ucxlilwrxx-kpvpkdr-kwglffdpb (Tdap) vaccine, adult/adolescent) [facility] Office Visit On: 30-Jan-2018 10:36 Encounter Reason: Forms - The patient presents to the office to be evaluate for scooter/wheelchair (see scanned in form filled out). Note for Forms: already had evaluation done by PT, just need PCP signatureDebility pr End: 30-Jan-2018 11:32 esents in [facility]. Sees Dr. Child recently treated [...] for Transition into care: Was admitted to [facility] on Oct 28, 2016 with weakness un [...] deficiency, Rheumatoid arthritis, Blood in stool, Anemia, [facility], Anemia [facility] Office Visit On: [...] Nutrition: balanced diet and supplemental vitamins. The id dical issues the patient is following up [...] The patient does have durable power of criminal attorney and living will. The patient has noticed nothing from the geriatic depression scale. Other providers contributing to the patient's care a re gastrologist ( @[facility] in [facility] for colonscopy ), form builder helper (Dr. Francisco ) and other: (Integrated Logistics Support Manager: Dr. Child , Pain Management: Dr. Mcfadden [...] patient does have du rable power of criminal attorney and living will. The patient has noticed nothing from the geriatic depression scale. Other providers contributing to the patient's care are gastrologist ( @[facility] in [facility] for colonscopy ), form builder helper (Dr. Francisco ) and other: (Integrated Logistics Support Manager: Dr. Child , Pain Management: Dr. Mcfadden [...]
--- OUTSIDE RECORDS SUMMARY | 2018-04-22 10:10 | XMS RPT_ITS | Continuity of Care Document ---
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 Campa in [place] Status: Active Current nonsmoker (Renamed from Current [...] no vomiting, resoled after stopping trulicity(03/10)Junuvia on efx130pj once daily Rageye exam yearly(12/09/15), catarctekg cardiology Dr Zhang, stents 1 in 2003Podiatry: Dr Child surprise, every 3 months, Has multiple toe amputations [...] Comments: Sees pain management Dr. Mcfadden at [facility], she prescribes lyrica, dose increased [...] toprol BP stable sees Dr. 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 Child, with [facility] Status: Active Ulcer of foot (L97.509, 707.15) [...] for new wheelchair, she will look at [facility] to see what she would like [...] Katelyn Dempsey MD Start : 06-Jul-2015 Active Norvasc 5 MG Oral Tablet 1 Tablet qd for 30 days Quantity: 30 {Tablet} Refills: 0 Ordered:01-Jan-2018 JesikamarvelGabbi Start : 01-Jan-2018 Active OneTouch Lancets Miscellaneous 1 (one) Misc Misc test bid for 90 days Quantity: 1 {Box} Refills: 3 Ordered:18-Oct-2015 Rafael Thomas MD Start : 18-Oct-2015 Active Comments:E11.9 ONETOUCH ULTRA BLUE (In Vitro Strip) 1 (one) Strip Strip test bid for 0 days Quantity: 100 {Strip} Refills: 3 Ordered:19-Jul-2015 Katelyn Dempsey MD Start : 19-Jul-2015 Active Comments:E11.9NPI: [id number] PERCOCET, 7.5-325MG (Oral Tablet) 2 (two) Tablet every 4 hours prn for 0 days Quantity: 160 {Tablet} Refills: 0 Ordered:08-Sep-2015 Rafael Thomas MD Start : 08-Sep-2015 Active Comments:one hundred and sixty Pravastatin Sodium 20 MG Oral Tablet 1 Tablet QD for 30 days Quantity: 30 {Tablet} Refills: 1 Ordered:17-Oct-2017 Maxine HINTON, Mayra Rodriguez CNP Start : 17-Oct-2017 Active PredniSONE 10 MG Oral Tablet 1 [...] days Quantity: 30 {Tablet} Refills: 3 Ordered:05-Nov-2017 Maxine HINTON, Mayra Lin CNP, Mayra George Start : 05-Nov-2017 Active Toprol XL 50 [...] days Quantity: 20 {Tablet} Refills: 0 Ordered:10-Jan-2017 Laurel Thomas LPN Start [...] {Tablet} Refills: 3 Ordered:18-Dec-2016 Mayra Goodman CNP, CNP, Mary E Start : 08-Sep-2015 End : 18-Dec-2016 Inactive [...] 31-Mar-2015 End : 01-Apr-2015 Inactive Comments:SSI: 151-200-1 eqba547-158-3 units 296-489-2lvmsf 301-350-4 units 351-400-5 unitsover 400 give 5 units and call provider Aduvgilda 100 MG Oral Tablet 1 (one) Tablet daily for 30 days Quantity: 30 {Tablet} Refills: 0 Ordered:10-Jan-2017 Mayra Goodman CNP, CNP Mayra George Start : 10-Jan-2017 End : [...] Ordered:17-Jan-2010 HARESH Griffin End : 17-Jan-2010 Inactive OMEGA-3 FISH OIL, 1000MG (Oral Capsule) [...] me sick as a dog Vitamin D3 26625 UNIT Oral Capsule 1 (one) Capsule once a week for 60 days Quantity: 8 {Capsule} Refills: 0 Ordered:15-Dec-2015 Rafael Thomas MD Start : 15-Dec-2015 End : 13-Feb-2016 Inactive ZOLPIDEM TARTRATE, 10MG (Oral Tablet) 1 Tablet qhs prn for 0 days Quantity: 30 {Tablet} Refills: 3 Ordered:31-Mar-2015 HARESH Griffin Start : 03-Nov-2013 End : 31-Mar-2015 Inactive Comments:thirty ZOSTAVAX, 76573TTJ/0.65ML (Subcutaneous Solution Reconstituted) uad For Solution one [...] days Quantity: 30 {Capsule} Refills: 0 Ordered:20-Nov-2017 AquilinoAdilia angela Start : 27-Apr-2017 End : 20-Nov-2017 Discontinued [...] PT Result: Comments: See Note; NOTES: 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 Please let me know if there are questions or concerns regarding this plan of care. Physician Signature: Date: <Electronically signed by Juanis Sanchez DPT> 12/17/17 10 38 CC: Mayra Goodman MICHAEL ELR Signed For Medicare only, by signing this I certify the plan of care. Physicians Signature Date 05-Jan-2016 Stress Test Echo w/ Contrast Result: Comments: See Note; NOTES: [facility] [address] [place] [address] Verdana 4d Stress Test Echo w/o Contrast MR#: [id number] Acct: [id number] Name: TIA MACARIO Rep #: [id number] : 1945 70 From: Pawan Zhang MD Primary Care: Rafael Thomas Status: REG CLI Ordering Dr: Pawan Zhang MD Sex: F [...] 30.00 DOBUTAMINE STAGE 4 1:12 12 5 151/36334.00 BASELINE 88 141/55 Stress Duration: 10:12 mm:ss [...] Pawan Zhang MD Performed By: Arlyn Britton RDCS, R VT 01/05/16 1604 Date Pawan Zhang MD CC: Pawan Zhang MD; Rafael Delaney D ictated: 01/05/16 1037 Date Transcribed: 01/05/161603 Industrial X Ray Operator: Signed 18-Nov-2015 Emergency Department Summary Result: Comments: See Note; NOTES: [facility] [address] [place] [address] Emergency Department Summary MR#: [id number] Acct: [id number] Name: JC SERVIN Rep #: [id number] : 1945 70 From: Jose Mccain MD PCP: Rafael Thomas Status: [facility] DATE OF SERVICE: 11/11/2015 CHIEF COMPLAINT: Left [...] History of Charcot. Jose Mccain M.D. T: DEANNA JOB: [id number] 11/18/15 0739 <Electronically signed by oJse Mccain MD> Date Jose Mccain MD Cosigner Signature (If Indicated): Date CC: Rafael Thomas Date Dictated: 11/10 Date Transcribed: 11/11/151715 Industrial X Ray Operator: Signed 11-Nov-2015 Discharge Instruction Result: Comments: See Note; NOTES: [facility] [address] [place] [address] Discharge Instruction 11/11/15 1451 MR#: [id number] Acct: [id number] Name: STEPHANIE SwannTIA Ebony Rep #: [id number] : 1945 70 From: Jose Mccain MD [...] any unexpected problems, contact your doctor. Call [facility] ([phone]) or report to [facility] Emergency Room. Call 911 if necessary. 11/11/151906 <Electronically signed by Jose Mccain MD> Date Jose Mccain MD Cosigner Signature (If Indicated): Date CC: Rafael Thomas 11-Nov-2015 Ankle min 3 Views Result: Comments: See Note; NOTES: [facility] [address] [place] [address] Verdana 4d Ankle min 3 Views MR#: [id number] Acct: [id number] Name: TIA SERVIN Ebony Rep #: [id number] : 1945 F 70 From: Clemencia Holden MD PCP: Rafael Thomas Status: REG ER Study: Ankle min 3 Views Date of Exam: 11/11/15 Exam# [id number] Ordering Dr: Jose Mccain MD STUDY: X-RAY [...] MD at 14:20 EDT , Service support [phone], CC: Jose Mccain; Rafael Thomas Industrial X Ray Operator: Signed 11-Nov-2015 Foot min 3 Views Result: Comments: See Note; NOTES: [facility] [address] [place] [address] Verdana 4d Foot min 3 Views MR#: [id number] Acct: [id number] Name: TIA SERVIN Rep #: [id number] : 1945 F 70 From: Clemencia Holden MD PCP: Rafael Thomas Status: [facility] ER Study: Foot min 3 Views Date of Exam: 11/11/15 Exam# [id number] Ordering Dr: Jose Mccain MD STUDY: X-RAY [...] MD at 14:26 EDT cf, Service support [phone], CC: Jose Mccain; Rafael Thomas Industrial X Ray Operator: Signed 08-Nov-2015 PT D/C Summary (1) Result: Comments: See Note; NOTES: [facility] [place] [address] Fax [facility] MR#: [id number] Acct: [id number] Name: TIA SERVIN Rep #: [id number] : 1945 70 From: Laura Wright PT, Cert. T Referring DrWinston: OUT OF TOWN DOCTOR Status: REG RCR Insurance: MEDICARE PART A B [facility] - PT D/C Summary It has been [...] TO FOLLOW UP WITH DR. LAY IN [place] SUNDAY. SHE REPORTS SHE DOES NOT WANT [...] patient. Sincerely, Laura Wright <Electronically signed by Cert. MACARIO Rowe PTT> 11/08/15 3010 CC: MISBAH STRONG; Rafael Thomas; OUT OF [facility] DOCTOR JH Signed 27-Oct-2015 Inital Evaluation (1) - PT Result: Comments: See Note; NOTES: [facility] [address] [place] [address]. [address] [place] [address] Fax REHABILITATION [facility] INITIAL EVALUATION MR#: [id number] Acct: [id number] Name: TIA SERVIN Rep #: [id number] : 1945 70 From: Laura rWight PT, CertWinston SORTOT Referring Dr.: Georgi Lay MD Status: R [...] THE HOSPITAL ANOTHE WEEK AND THEN A SKILLED NURSING FOR A MONTH TO TRY TO GET HER STRENGTH BACK. PATIENT REPORTS SHE ALSO HAS A HISTORY OF LUMBAR PRO BLEMS AND THEY ARE WORSENING. Recent major surgery: RENETTA LE TOE AMPUTATIONS AND OPEN SORES ON TOES CURRENTLY. HEART CATH/STENTS. RA AND OA. SOCIAL: LIVES ALONE. 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 OTHER: PATIENT REPORTS SHE DOES NOT DO WELL IN THERAPY. SHE STATES IT USUALLY CAUSES TOO MUCH PAIN. I ACHE SO BAD WHEN I DO THERAPY. PATIENT REPORTS THEY PUT HER IN THERAPY AT THE SKILLED NURSING AND S HE COULDN'T DO MUCH. - [...] to be FAXED BACK to us at [phone] for Medicare purposes. Please let m e [...] (1) Result: Comments: See Note; NOTES: [facility] [address] [place], [place] [address] Fax REEVALUATION / ME DICARE RECERTIFICATION [place] 4d PHYSICAL THERAPY MR#: [id number] Acct: [id number] Name: TIA SERVIN Rep #: [id number] : 1945 70 From: Cert. MACARIO Rowe PTT Referring Dr.: Wandy Lay MD Status: REG RCR Insurance: MEDICARE PART A B [employer] Georgi Lay MD, It has been my [...] do not hesitate to contact me at [phone] by phone or if you have questions or concerns regarding this new plan of care! Sincerely, Laura Wright <Electronically signed by Laura Wright PT, Cert. MDT> 10/07/15 1155 CC: Georgi Lay MD; Rafael Rosariololis DT: JH Signed For Medicare only, by signing this I certify the plan of care. Physicians Signature Date 24-Aug-2015 NCS and/or EMG Patient Result: Comments: See Note; NOTES: [facility] [address] [place] [address] NCS and/or EMG Patient MR#: [id number] Acct: [id number] Name: TIA MARTINEZ Rep #: [id number] : 1945 70 From: Jakob Pino MD Referring Dr: Katelyn Dempsey MD Status: REG CLI Ordering Dr: Katelyn Dempsey MD Date: 08/18/15 Location: N Sex: F C DATE OF S ERVICE: The patient presents for electrodiagnostic testing [...] median mononeuropathy. This is consistent with a kqkz-qt-ybrzepiq right carpal tunnel syndrome. 2. Electrodiagnostic findings demonstrate acute right-sided C5 radiculopat hy. If there are any questions in regards to this exam, please do not hesitate to contact me. Jakob Pino MD T: NTS JOB: [id number] 08/24/15 1521 <Electronically signed by Jakob Pino MD> Date Jakob Pino MD CC: Jakob Pino; Katelyn Dempsey MD Date Dictated: 08/18/15 1258 Date Transcribed: 08/18/151257 Industrial X Ray Operator: Signed 20-Jul-2015 Renal Artery Duplex Result: Comments: See Note; NOTES: [facility] [address] [place] [address] Renal Artery Duplex Ultrasound 07/20/15 0853 MR#: [id number] Acct: [id number] Name: TIA SERVIN Rep #: [id number] : 1945 70 From: Martinez Faulkner MD [...] rdering Physician: Katelyn Dempsey Performed By: Bandar Ch, RVT 07/20/15 1210 Date Martinez Faulkner MD CC: Katelyn Dempsey MD Date Dictated: 07/20/15 0853 Date Transcribed: 07/20/15 1210 Industrial X Ray Operator: Signed 20-Jul-2015 Kidney and Bladder Result: Comments: See Note; NOTES: [facility] [address] [place] [address] Verdana 4d Kidney and Bladder MR#: [id number] Acct: [id number] Name: TIA SERVIN Rep #: [id number] : 1945 F 70 From: Arabella Peace MD PCP: Katelyn Dempsey MD Status: REG CLI Study: Kidney and Bladder Date of Exam: 07/20/15 Exam# [id number] Ordering Dr: Katelyn Dempsey MD STUDY: RENAL [...] MD at 13:01 EDT , Service support [phone], CC: Katelyn Dempsey MD Industrial X Ray Operator: Signed 20-Jul-2015 Brain W/WO Contrast Result: Comments: See Note; NOTES: [facility] [address] [place] [address] Verda 4d Brain W/WO Contrast MR#: [id number] Acct: [id number] Name: TIA SERVIN Rep #: [id number] : 1945 F 70 From: Arabella Peace MD PCP: Katelyn Dempsey MD Status: REG CLI Study: Brain W/WO Contrast Date of Exam: 07/20/15 Exam# [id number] Ordering Dr: Moe Dempsey MD STUDY: MRI [...] MD at 12:28 EDT , Service support [phone], CC: Katelyn Dempsey MD Industrial X Ray Operator: Signed 20-Jul-2015 Spine Cervical (Routine) Result: Comments: See Note; NOTES: [facility] [address] [place] [id number] [place] [address] 4d Spine Cervical (Routine) MR#: [id number] Acct: [id number] Name: TIA ANDRADE Rep #: [id number] : 1945 F 70 From: Arabella Peace MD PCP: Katelyn Dempsey MD Status: REG CLI Study: Spine Cervical (Routine) Date of Exam: 07/20/15 Exam# [id number] Ordering Dr: Katelyn Irby MD STUDY: MRI [...] at 11:49 ED T , Service support [phone], CC: Katelyn Dempsey MD Industrial X Ray Operator: Signed 17-Jun-2015 Echocardiogram Complete Result: Comments: See Note; NOTES: [facility] [address] [place] [address] Echo Complete 06/17/15 0753 MR#: [id number] Acct: [id number] Name: TIA ANDRADE Rep #: [id number] : 1945 70 From: Pawan Zhang MD Attending Dr: Pawan Zhang MD Status: REG CLI Ordering Dr: Pawan Zhang MD Date: 06/17/15 Location: [facility] Sex: F C Admit [...] Date Dictated: 06/17/15 0753 Date Transcribed: 06/17/151056 Industrial X Ray Operator: Signed 04-Mar-2015 Brain/Head without Contrast Result: Comments: See Note; NOTES: [facility] [address] [place] [address] Verdana 4d Brain/Head without Contrast MR#: [id number] Acct: [id number] Name: TIA SERVIN Rep #: [id number] : 1945 F 69 From: Kahlil Waters PCP: Katelyn Dempsey MD Status: REG ER Study: Brain/Head without Contrast Date of Exam: 03/04/15 Exam# [id number] Destinyi ng Dr: Oleg Nash MD STUDY: CT [...] 0 at 3:47 EST , Service support [phone], CC: Katelyn Dempsey MD; Oleg Nash M.D. Industrial X Ray Operator: Signed 16-Feb-2014 Pelvic (Non ) Result: Comments: See Note; NOTES: [facility] [address] [place] [address] Ultrasound Report MR#: [id number] Acct: [id number] Name: TIA SERVIN Rep #: [id number] : 1945 F 68 From: Misbah Elaine DO PCP: Katelyn Dempsey MD Status: REG CLI Study: Pelvic (Non ) Date of Exam: 02/16/14 Exam# [id number] Ordering Dr: Katelyn Dempsey MD STUD Y: [...] at 4:59 EST Tel , Service support [phone], CC: Katelyn Dempsey MD Industrial X Ray Operator: Signed Immunization Name Dates Details Pneumococcal [...] Most Recent 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, 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 [place], [place], [id number] Absolute Lymph 1.06 {X10_3/ul} (Normal) Range: 0.83-4.51 [...] 4.2-5.4 WBC 6.4 K/mm3 (Normal) Range: 4.4-11.0 8-Rwq-081281:11 Comprehensive Metabolic Profil Comments: [facility] [address] [place], [place], [address] GAP 14 (Normal) Range: 5-15 CO2 24.0 [...] A.D.A. criteria.Please note revised GLUCOSE reference range zzgpfxvuw59/02/2018. 47-Ufg-267359:01 HgA1C , Office (08534) Comments: 5.8 HgA1C , Office 5.8 % (Normal) Range: 4.6 - 7.1 36-Hxo-791231:00 Blood Glucose , Office (01129) Comments: 99 Blood Glucose , Office 99 (Normal) 65-Vaz-80240:19 Comprehensive Metabolic Profil Comments: [facility] [address] [place], [address] GAP 11 (Normal) Range: 5-15 CO2 26.0 [...] A.D.A. criteria.Please note revised GLUCOSE reference range fwoykgdvu00/02/2018. :19 Hemoglobin A1c Comments: [facility] [address] [place], [place], [id number] HGB A1C 5.6 % (Normal) Range: 4.2-6.3 :19 Thyroid Stim Hormone (TSH) Comments: [facility] [address] [place], [address] TSH 2.33 {uIU/mL} (Normal) Range: 0.358-3.74 23-Xyy-64583:19 Vitamin D,25 Hydroxy Comments: [facility] [address] [place], [address] Vitamin D 25-OH 37.3 ng/mL (Normal) Range: 29.95-100.01 Comments: Vitamin D 25(OH) Status Range Deficiency <20 ng/mL (50nmol/L) Insuffciency 20 - 30 ng/mL (50 - 75 nmol/L) Sufficiency 30 - 100 ng/mL (75 - 250 nmol/L) Toxicity >100 ng/mL (>250 nmol/L) 25-Nru-549716:01 CBC W/Diff, Automated Comments: [facility] [address] [place], [id number] Absolute Lymph 1.26 {X10_3/ul} (Normal) Range: 0.83-4.51 [...] 4.2-5.4 WBC 7.4 K/mm3 (Normal) Range: 4.4-11.0 41-Xhc-009116:01 Comprehensive Metabolic Profil Comments: [facility] [address] [place], [address] GAP 10 (Normal) Range: 5-15 CO2 25.0 [...] A.D.A. criteria.Please note revised GLUCOSE reference range ospavonje99/02/2018. 78-Syj-654506:34 CALCIFEDIOL (87353) Comments: PATIENT NOT FASTINGPERFORMED BY: [facility] [address] [place] [id number] Vitamin D, 25-Hydroxy 30.2 ng/mL (Normal) Range: 30.0-100.0 Comments: Vitamin D deficiency has been defined by the [place] of[place]icine and an Endocrine Society practice guideline as alevel of serum 25-OH vitamin D less than 20 ng/mL (1,2).The Endocrine Society went on to further define vitamin Dinsufficiency as a level between 21 and 29 ng/mL (2).1. IOM ([place] of Medicine). 2010. Dietary reference intakes for calcium and D. [place]: The National Academies Press.2. Brandon MF, Bakari NC, Vicente IZAGUIRRE, et al. Evaluation, treatment, and prevention of vitamin D deficiency: an Endocrine Society clinical practice guideline. JCEM. 2010; 96(7):1911-30. 25-Jul-20179:41 Comprehensive Metabolic Profil Comments: [facility] [address] [place], [place], [address] GAP 10 (Normal) Range: 5-15 CO2 24.0 [...] A.D.A. criteria.Please note revised GLUCOSE reference range axszojytm83/02/2018. :41 Hemoglobin A1c Comments: [facility] [address] [place], [place], [address] HGB A1C 5.8 % (Normal) Range: 4.2-6.3 :41 Lipid Profile Comments: [facility] [address] [place], [place], [address] VLDL 45 mg/dL (Abnormal) Range: 5-40 LDL [...] Risk :41 Microalb:Creat Ratio,Random UR Comments: [facility] [address] [place], [place], [id number] MALB:CREAT 14.8 {mg/g_CRE} (Normal) MICROALBUMIN,UR 46.0 mg/L (Normal) UR CREAT 310.00 mg/dL (Normal) 2-May-29080:41 Thyroid Stim Hormone (TSH) Comments: [facility] [address] [place], [address] TSH 1.96 {uIU/mL} (Normal) Range: 0.358-3.74 66-Lmk-162297:18 CBC W/Diff, Automated Comments: [facility] [address] [place], [place], [address] Absolute Lymph 1.08 {X10_3/ul} (Normal) Range: 0.83-4.51 [...] 4.2-5.4 WBC 4.7 K/mm3 (Normal) Range: 4.4-11.0 37-Xrf-448655:18 Comprehensive Metabolic Profil Comments: [facility] [address] [place], [place], [address] GAP 7 (Normal) Range: 5-15 CO2 26.0 mmol/L (Normal) Range: 21.0-32.0 CL 107 mmol/L (Normal) Range: 98-107 K 4.8 mmol/L (Normal) Range: 3.5-5.1 NA 140 mmol/L (Normal) Range: 136-145 T BILI 0.60 mg/dL (Normal) Range: 0.20-1.00 ALT 16 U/L (Normal) Range: 13-56 Comments: Please note revised ALT reference range vaybtsdcu15/28/2018. ALK P 63 U/L (Normal) Range: 45-117 [...] A.D.A. criteria.Please note revised GLUCOSE reference range nrqphxguy91/02/2018. 3-Czu-537181:40 CALCIFEDIOL (82166) Comments: PATIENT NOT FASTINGPERFORMED BY: [facility] VinelandEmjktj0544 [facility] [id number] Vitamin D, 25-Hydroxy 31.0 ng/mL (Normal) Range: 30.0-100.0 Comments: Vitamin D deficiency has been defined by the [place] of[place]icine and an Endocrine Society practice guideline as alevel of serum 25-OH vitamin D less than 20 ng/mL (1,2).The Endocrine Society went on to further define vitamin Dinsufficiency as a level between 21 and 29 ng/mL (2).1. IOM ([place] of Medicine). 2010. Dietary reference intakes for calcium and D. [place]: The National Academies Press.2. Brandon MF, Bakari NC, Vicente IZAGUIRRE, et al. Evaluation, treatment, and prevention of vitamin D deficiency: an Endocrine Society clinical practice guideline. JCEM. 2010; 96(7):1911-30. 2-Jzm-518162:20 Crystals, Body Fluid Comments: [facility] [address] [place], [place], [id number] PATH REV Reviewed (Normal) Comments: Negative for malignant cells and crystals.Acute inflammation.Clinical correlation necessary.Jacinto Herrera M.D. 03/28/17 AMENDED REPORT 03/28/17 1357 PATH REV previously reported as: Will follow SOURCE/BF SYNOVIAL (Normal) CRYSTALS/BF SEE PATH REV (Normal) 8-Ftf-277436:20 Culture, Body Fluid Comments: [facility] [address] [place], [place], [address] ; dr redd ZAPATA See Note (Normal) [...] DAYS Cult, AnaerobicNo growth in 5 days. 5-Dld-619141:20 Synovial Fluid RBC, WBC AND Comments: [facility] [address] [place], [address] ; dr rainey Diff PATH COM/SYFL May [...] Comments: YELLOW/RED SYNOVIAL SOURCE RIGHT KNEE (Normal) :53 CBC W/Diff, Comments: PLEASE FAX RESULTS TO [id number] PT REQUEST.[facility] [address] [place] [address], [id number] ; dr barba Automated Absolute Lymph 0.89 [...] 4.2-5.4 WBC 6.3 K/mm3 (Normal) Range: 4.4-11.0 92-Eym-29769:53 Comprehensive Comments: PLEASE FAX RESULTS TO [id number] PT REQUEST.[facility] [address] [place], [place], [id number] Metabolic Profil GAP 10 (Normal) Range: 5-15 [...] Hemoglobin A1c Comments: PLEASE FAX RESULTS TO [id number] PT REQUEST.[facility] [address] [place], [place], [address] HGB A1C 6.9 % (Abnormal) Range: 4.2-6.3 :53 Lipid Profile Comments: PLEASE FAX RESULTS TO [phone] PT REQUEST.[facility] [address] [place], [place], [address] VLDL 29 mg/dL (Normal) Range: 5-40 LDL [...] Thyroid Stim Comments: PLEASE FAX RESULTS TO [id number] PT REQUEST.[facility] [address] [place], [place], [id number] Hormone (TSH) TSH 1.69 {uIU/mL} (Normal) Range: 0.358-3.74 80-Saj-775461:59 HgA1C , Office (81687) HgA1C , Office 6.4 % (Normal) Range: 4.6 - 7.1 :59 Blood Glucose , Office (73453) Blood Glucose , Office 213 (Normal) :27 CBC W/Diff, Automated Comments: [facility] Ejjvhwusap1498 [address] Driver [place], [place], [id number] Absolute Lymph 1.20 {X10_3/ul} (Normal) Range: 0.83-4.51 [...] 4.2-5.4 WBC 6.1 K/mm3 (Normal) Range: 4.4-11.0 :27 Comprehensive Metabolic Profil Comments: SHARE RESULTS WITH ON LICENSE OF [facility] FOR [facility] Xjdnqfihfi9117 [address] Driver [place], [place], [id number] GAP 11 (Normal) Range: 5-15 CO2 23.0 [...] 200 mg/dLsuggests DIABETES MELLITUS per A.D.A. criteria. 59-Wfn-474219:05 Comprehensive Metabolic Profil Comments: [facility] Mjdxqltuyq5784 [address]. [place], [place], [address] GAP 9 (Normal) Range: 5-15 CO2 24.0 [...] 126 mg/dLsuggests DIABETES MELLITUS per A.D.A. criteria. 02-Dlv-432604:05 Hemoglobin A1c Comments: [facility] Jnjcfcmmlt[address] [facility] [address] [place], [place], [address] HGB A1C 6.7 % (Abnormal) Range: 4.2-6.3 65-Zeh-067834:05 Thyroid Stim Hormone (TSH) Comments: [facility] Wivprvrued[address] [facility] [address] [place], [place], [address] TSH 3.02 {uIU/mL} (Normal) Range: 0.358-3.74 20-Qvw-068626:05 Vitamin D,25 Hydroxy Comments: [facility] Gvleqayrff4235 [place], [address] Vitamin D 25-OH 23.5 ng/mL (Normal) Comments: Vitamin D 25(OH) Status Range Deficiency <20 ng/mL (50nmol/L) Insuffciency 20 - 30 ng/mL (50 - 75 nmol/L) Sufficiency 30 - 100 ng/mL (75 - 250 nmol/L) Toxicity >100 ng/mL (>250 nmol/L) :56 HgA1C , Office (16638) HgA1C , Office 6.3 % (Normal) Range: 4.6 - 7.1 :56 Blood Glucose , Office (71807) Blood Glucose , Office 194 (Normal) :37 CBC W/Diff, Automated Comments: [facility] Ktxiwlcomg0319 Norma MendezMar [place], [place], [address] ; another doc Absolute Lymph 1.29 {X10_3/ul} [...] 4.4-11.0 :37 Comprehensive Metabolic Profil Comments: [facility] Zribkpzwqu6618 [place], [address] GAP 7 (Normal) Range: 5-15 CO2 29.0 [...] mg/dLsuggests DIABETES MELLITUS per A.D.A. criteria. :37 Basic Metabolic Profile Comments: Order Date: 12/03/15DR.ZHANG WANTS LIVER,LIPIDDRVANNESSA MONROYS BMPInterface Comments: 12 hours fasting, may have water.Order Date: 12/03/15[facility] Seqsdtfcay7342 Norma [place], [place], [address] (BMP) GAP 4 (Abnormal) Range: 5-15 CO2 [...] 126 mg/dLsuggests DIABETES MELLITUS per A.D.A. criteria. 27-Pbu-20840:37 Lipid Profile Comments: Order Date: 12/03/15DR.NEWTON KEE LIVER,LIPIDDR.RAGHUNATHAN KEE BMPInterface Comments: 12 hours fasting, may have water.Order Date: 12/03/15[facility] Vqnpysvzhd8379 Norma [place], [place], [address] VLDL 18 mg/dL (Normal) Range: 5-40 LDL [...] hours fasting, may have water.Order Date: 12/03/15[facility] Przjanivjm7464 [address]. [place], [place], [address] D BILI 0.11 mg/dL (Normal) Range: 0.00-0.30 T BILI 0.40 mg/dL (Normal) Range: 0.20-1.00 ALT 14 U/L (Normal) Range: 12-78 ALK P 47 U/L (Normal) Range: 45-117 AST 12 U/L (Abnormal) Range: 15-37 GLOB 3.3 g/dL (Normal) Range: 2.3-3.5 ALB 2.8 g/dL (Abnormal) Range: 3.4-5.0 T PROT 6.1 g/dL (Abnormal) Range: 6.4-8.2 :40 HgA1C , Office (18862) HgA1C , Office 6.1 % (Normal) Range: 4.6 - 7.1 :40 Blood Glucose , Office (15401) Blood Glucose , Office 208 (Normal) :45 Culture, Body Fluid Comments: [facility] Uaykjevkjx7787 [address] [place], [place], [address] CUBF See Note (Normal) Comments: List Antibiotics Last 48 Hours? UNKList Antibiotics to be Started? UNKComments: SYNOVIAL FLUID LEFT KNEE..Gram StainCentrifuged Specimen? Culture performed on centrifuged specimen Gram Stain 3+ Red Blood Cells 1+ White Blood Cells No organisms seen Body Fluid CultNO GROWTH IN 14 DAYS Cult, AnaerobicNo growth in 5 days. 0-Gag-459301:45 Synovial Fluid RBC, WBC AND Comments: [facility] Rxbnjkghij0715 [facility]. [place], [place], [address] Diff PATH COM/SYFL May follow (Normal) MONO [...] Yellow (Normal) SYNOVIAL SOURCE LEFT KNEE (Normal) 73-Vbe-291578:21 CBC W/Diff, Automated Comments: [facility] Abivtsotru0598 [facility] [place], [place], [address] Absolute Lymph 1.21 {X10_3/ul} (Normal) Range: 0.83-4.51 [...] 4.2-5.4 WBC 6.5 K/mm3 (Normal) Range: 4.4-11.0 73-Izd-820579:21 Comprehensive Metabolic Profil Comments: [facility] Aswwaalzdk9525 [place], [address] GAP 8 (Normal) Range: 5-15 CO2 23.0 [...] <126 mg/dLsuggests IMPAIRED HOMEOSTASIS per A.D.A. criteria. :31 CBC W/Diff, Automated Comments: [facility] Hqzjcvncgq7653 [address] Hannae. [place], [place], [address] Absolute Lymph 1.21 {X10_3/ul} (Normal) Range: 0.83-4.51 [...] 4.2-5.4 WBC 8.5 K/mm3 (Normal) Range: 4.4-11.0 :31 Comprehensive Metabolic Profil Comments: [facility] Qelfwbrmgc6652 [address] [place], [place], [address] GAP 9 (Normal) Range: 5-15 CO2 27.0 [...] 126 mg/dLsuggests DIABETES MELLITUS per A.D.A. criteria. 5-Gvy-946132:49 Blood Glucose , Office (69823) Blood Glucose , Office 219 (Normal) 3-Ogt-456417:49 HgA1C , Office (83125) HgA1C , Office 7.5 % (Abnormal) Range: 4.6 - 7.1 02-Gee-550433:27 C-Peptide Comments: [facility] (refer to report for specific site)refer to report for address and phone number C PEPTIDE 27615 7.0 ng/mL (Abnormal) Range: 1.1-4.4 Comments: C-Peptide reference interval is for fasting patients.Performed at: [address], [place], [place] [address] Director: Lex Lai PhD, Phone: [phone] 34-Pqv-226079:27 CBC W/Diff, Automated Comments: [facility] Simwbkixrx9136 [address] [place], [place], [address] ANISO 1+ (Normal) Absolute Lymph 1.45 {X10_3/ul} [...] 4.2-5.4 WBC 8.3 K/mm3 (Normal) Range: 4.4-11.0 45-Pkg-280808:27 Comprehensive Metabolic Profil Comments: [facility] Bfyzmbghix6203 [address] [place], [place], [address] GAP 9 (Normal) Range: 5-15 CO2 25.0 [...] 126 mg/dLsuggests DIABETES MELLITUS per A.D.A. criteria. 66-Tug-703639:27 Hemoglobin A1c Comments: [facility] [address] [place], [place], [address] HGB A1C 7.5 % (Abnormal) Range: 4.2-6.3 :27 Microalb:Creat Ratio,Random UR Comments: [facility] [address] [place], [place], [address] MALB:CREAT 6.7 {mg/g_CRE} (Normal) MICROALBUMIN,UR 9.6 mg/L (Normal) UR CREAT 144.00 mg/dL (Normal) 43-Fwc-549980:27 Miscellaneous Lab Procedure Comments: Test(s) Ordered: ISLET CELL ANTIBODY [id number] SERUM/[facility] Yvomxyhfjz7339 KEIRA Casanova, [address] [facility] Comments: TEST RESULT UNITS REFERENCE INTERVALAntipancreatic Islet Cells Negative Neg:<1:1 TEST LAB (Normal) ING PERFORMED AT [facility]. ORIGINAL REPORT ON FILE IN LAB CONTAINS ADDITIONAL TEST SITE INFORMATION. TEST 86-Qlb-148831:25 HAPTOGLOBIN (81516) Comments: PATIENT NOT FASTINGPERFORMED BY: [facility]6370 [facility] [id number] Haptoglobin 259 mg/dL (Abnormal) Range: 34-200 51-Irq-935245:25 SPEP (29115) Comments: PATIENT NOT FASTINGPERFORMED BY: [facility]6370 [facility] [id number] Please note: SPRCS (Normal) Comments: Protein electrophoresis scan will follow via computer, mail, orcourier delivery. A/G Ratio 0.9 (Normal) Range: 0.7-1.7 Globulin, Total 3.4 g/dL (Normal) Range: 2.2-3.9 M-Anam Not Observed g/dL (Normal) Gamma Globulin 0.8 g/dL (Normal) Range: 0.4-1.8 Beta Globulin 1.2 g/dL (Normal) Range: 0.7-1.3 Dqtdw-3-Sqbiywfl 1.1 g/dL (Abnormal) Range: 0.4-1.0 Xosqk-7-Rmzgyrnn 0.3 g/dL (Normal) Range: 0.0-0.4 Albumin 3.2 g/dL (Normal) Range: 2.9-4.4 Protein, Total, Serum 6.6 g/dL (Normal) Range: 6.0-8.5 :25 UPEP (04443) Comments: PATIENT NOT FASTINGPERFORMED BY: [facility]6370 [facility] [id number] Please note: SPRCS (Normal) Comments: Protein electrophoresis scan will follow via computer, mail, orcourier delivery. M-Anam, % Not Observed % (Normal) Gamma Globulin, U 10.2 % (Normal) Beta Globulin, U 22.4 % (Normal) Jlrem-0-Yqcwzgmg, U 9.8 % (Normal) Pcwtt-8-Rrvqovpz, U 1.8 % (Normal) Albumin, U 55.8 % (Normal) Protein,Total,Urine 42.4 mg/dL (Normal) 11-Uhv-415104:25 RETICULOCYTE COUNT MANUL Comments: PATIENT NOT FASTINGPERFORMED BY: [facility]6370 [facility] [id number] (99768) Reticulocyte Count 2.0 % (Normal) Range: 0.6-2.6 37-Xwl-858801:25 IRON BINDING CAPACITY (TIBC) Comments: PATIENT NOT FASTINGPERFORMED BY: [facility]6370 [facility] [id number] (94985) Iron Saturation 4 % (Abnormal) Range: 15-55 Iron, Serum 14 ug/dL (Abnormal) Range: 27-139 UIBC 372 ug/dL (Abnormal) Range: 118-369 Iron Bind.Cap.(TIBC) 386 ug/dL (Normal) Range: 250-450 78-Eai-630378:25 FERRITIN (05362) Comments: PATIENT NOT FASTINGPERFORMED BY: [facility]6370 [facility] [id number] Ferritin, Serum 19 ng/mL (Normal) Range: 15-150 47-Xsi-356405:25 CBC, PLATELETS & AUT DIFF Comments: PATIENT NOT FASTINGPERFORMED BY: [facility]6370 [facility] [id number] Information: [id number] (91194) Immature Grans (Abs) 0.0 {x10E3/uL} (Normal) Range: [...] (Normal) Range: 3.4-10.8 :32 HgA1C , Office (13571) HgA1C , Office 8.2 % (Abnormal) Range: 4.6 - 7.1 :16 CBC W/Diff, Automated Comments: DR.N THOMAS ORDERED TSH LIPID VITD CBCD B12 FOLOTES CMP MIACREDRKARLA ORDERED LIPID LIVERDR.MARYAM ORDERED CMP [facility]CDWM[facility] Qzpvhpgglg2369 [facility]. [place], [place], [phone] OVALOCYTE 1+ (Normal) BASO STIP RARE (Normal) [...] CMP MIACRE ORDERED LIPID LIVERDR.MARYAM ORDERED CMP CBCDIs Patient Taking Vitamins or Folic Acid Supplements? [facility] [place], [address] GAP 9 (Normal) Range: 5-15 CO2 26.0 [...] CBCD B12 FOLOTES CMP LUCÍA ORDERED LIPID LIVERDRNATALIIA ORDERED CMP CBCDIs Patient Taking Vitamins or Folic Acid Supplements? [facility] gebclvmo7366 [place], [address] FOLATES 11.20 ng/mL (Normal) Range: 3.1-17.5 :16 Lipid Profile Comments: DR.N THOMAS ORDERED TSH LIPID VITD CBCD B12 FOLOTES CMP LUCÍA ORDERED LIPID LIVERDR.MARYAM ORDERED CMP CBCDIs Patient Taking Vitamins or Folic Acid Supplements? [facility] [facility] [place], [place], [address] VLDL 32 mg/dL (Normal) Range: 5-40 LDL [...] ORDERED TSH LIPID VITD CBCD B12 FOLOTES [facility] LUCÍA ORDERED LIPID LIVERDR.MARYAM ORDERED CMP CBCDOhio[facility] Hospital Cycxwttyxm6998 [place], [address] MALB:CREAT 7.5 {mg/g_CRE} (Normal) MICROALBUMIN,UR 10.1 mg/L (Normal) UR CREAT 135.00 mg/dL (Normal) :16 Thyroid Stim Hormone (TSH) Comments: DR.N THOMAS ORDERED TSH LIPID VITD CBCD B12 FOLOTES [facility] [address] LUCÍA ORDERED LIPID LIVERDR.MARYAM ORDERED CMP CBCDIs Patient Taking Vitamins or Folic Acid Supplements? [facility] [place], [address] TSH 1.90 {uIU/mL} (Normal) Range: 0.358-3.74 :16 Vitamin B12 324 pg/mL (Normal) Comments: DR.N THOMAS ORDERED TSH LIPID VITD CBCD B12 FOLOTES [facility] [address] LUCÍA ORDERED LIPID LIVERDR.MARYAM ORDERED CMP CBCDOhio[facility] Hospital Augudkrefu2515 [place], [address] Range: 211-911 01-Dec-20159:16 Vitamin D,25 Hydroxy Comments: DR.N THOMAS ORDERED TSH LIPID VITD CBCD B12 FOLOTES [facility] [address] LUCÍA ORDERED LIPID LIVERDR.MARYAM ORDERED CMP CBCDOhiohealth [facility] Hospital Vipgjvarye1241 [place], [phone] Vitamin D 25-OH 24.7 ng/mL (Normal) Comments: Vitamin D 25(OH) Status Range Deficiency <20 ng/mL (50nmol/L) Insuffciency 20 - 30 ng/mL (50 - 75 nmol/L) Sufficiency 30 - 100 ng/mL (75 - 250 nmol/L) Toxicity >100 ng/mL (>250 nmol/L) 2-Szn-616090:25 OVA & PARASITE DIR SMEAR Comments: PATIENT NOT FASTINGPERFORMED BY: Dsg.nr [place] [id number] (80814) Result 1 NOCP (Normal) Comments: No ova, cysts, or parasites seen. Ova + Parasite Exam Final report (Normal) Comments: These results were obtained using wet preparation(s) and trichromestained smear. This test does not include testing for Cryptosporidiumparvum, Cyclospora, or Microsporidia. 6-Ggt-408185:25 OCCULT BLOOD FECES SCREEN Comments: PATIENT NOT FASTINGPERFORMED BY: Dsg.nr [place] [id number] (38791) Occult Blood, Fecal, IA Positive (Abnormal) 0-Mea-303666:25 LEUKOCYTE COUNT, FECAL (37396) Comments: PATIENT NOT FASTINGPERFORMED BY: Dsg.nr [place] [id number] Result 1 NWBC (Normal) Comments: No white blood cells seen. White Blood Cells (WBC), Final report (Normal) Stool 6-Qnj-460616:24 C-DIFFICILE, STOOL (19792) Comments: PATIENT NOT FASTINGPERFORMED BY: [facility]ologicsL[facility] [id number] Information: [id number] C difficile Toxins A+B, EIA Negative (Normal) 0-Klx-535550:25 LAINE CULTURE-STOOL (16815) Comments: PATIENT NOT FASTINGPERFORMED BY: MARJAN [facility] Wyzrhl9372 [facility] [id number] Information: SRC:STL [id number] E coli Shiga Toxin EIA Negative (Normal) Result 1 NCI (Normal) Comments: No Campylobacter species isolated. Campylobacter Culture Final report (Normal) Result 1 NSS (Normal) Comments: No Salmonella or Shigella recovered. Salmonella/Shigella Screen Final report (Normal) :22 Blood Glucose , Office (80466) Blood Glucose , Office 191 (Normal) :22 HgA1C , Office (25867) HgA1C , Office 7.4 % (Abnormal) Range: 4.6 - 7.1 :19 CBC W/Diff, Automated Comments: [facility] Zxlbuimcul5083 [address] Hannaluis [place]andoMar [place], [place], [address] Absolute Lymph 1.86 {X10_3/ul} (Normal) Range: 0.83-4.51 [...] 4.2-5.4 WBC 8.4 K/mm3 (Normal) Range: 4.4-11.0 0-Fwg-864439:19 Comprehensive Metabolic Profil Comments: [facility] Nbfqvuajrh7884 [place], [address] GAP 10 (Normal) Range: 5-15 CO2 24.0 [...] 126 mg/dLsuggests DIABETES MELLITUS per A.D.A. criteria. 92-Mkc-842368:50 CALCIFEDIOL (09940) Comments: PATIENT NOT FASTINGPERFORMED BY: [facility]elsM[facility]6370 [facility] [id number] Vitamin D, 25-Hydroxy 20.8 ng/mL (Abnormal) Range: 30.0-100.0 Comments: Vitamin D deficiency has been defined by the [place] ofMedicine and an Endocrine Society practice guideline as alevel of serum 25-OH vitamin D less than 20 ng/mL (1,2).The Endocrine Society went on to further define vitamin Dinsufficiency as a level between 21 and 29 ng/mL (2).1. IOM ([place] of Medicine). 2010. Dietary reference intakes for calcium and D. [place]: The National Academies Press.2. Brandon MF, Bakari BOYD, Vicente IZAGUIRRE, et al. Evaluation, treatment, and prevention of vitamin D deficiency: an Endocrine Society clinical practice guideline. JCEM. 2010; 96(7):1911-30. 45-Plk-965999:50 POTASSIUM SERUM (49701) Comments: PATIENT NOT FASTINGPERFORMED BY: [place]elsMon[place] [id number] [facility] [id number] Potassium, Serum 5.4 mmol/L (Abnormal) Range: 3.5-5.2 50-Rdf-936226:50 MAGNESIUM (64195) Comments: PATIENT NOT FASTINGPERFORMED BY: [employer] [id number] Magnesium, Serum 1.8 mg/dL (Normal) Range: 1.6-2.3 39-Nwu-496147:50 AMMONIA (52130) Comments: PATIENT NOT FASTINGPERFORMED BY: [place] 960197 [facility] [id number] BY: [facility]6370 [facility] [id number] Ammonia, Plasma 40 ug/dL (Normal) Range: 19-87 15-Lpv-274740:50 SPEP (76413) Comments: PATIENT NOT FASTINGPERFORMED BY: [facility]elsM[facility]6370 [facility] [id number] Information: [id number] Please note: SPRCS (Normal) Comments: Protein electrophoresis scan will follow via computer, mail, orcourier delivery. A/G Ratio 1.2 (Normal) Range: 0.7-2.0 Globulin, Total 3.0 g/dL (Normal) Range: 2.0-4.5 M-Anam Comment: g/dL (Normal) Comments: [facility] Gamma Globulin 0.6 g/dL (Normal) Range: 0.5-1.6 Beta Globulin 1.0 g/dL (Normal) Range: 0.6-1.3 Yynwd-4-Vqqbzzos 1.1 g/dL (Normal) Range: 0.4-1.2 Fskcq-5-Ppczqsjx 0.3 g/dL (Normal) Range: 0.1-0.4 Albumin 3.5 g/dL (Normal) Range: 3.2-5.6 Protein, Total, Serum 6.5 g/dL (Normal) Range: 6.0-8.5 42-Syx-206767:54 CREATININE CLEARANCE Comments: PATIENT NOT FASTINGPERFORMED BY: [facility]6370 [facility] [id number] Information: [id number] START 07/18/15@630A M FINISH 07/18@7AM (06908) Creatinine Clearance 57 mL/min (Abnormal) Range: 88-128 [...] Creatinine, Serum 0.75 mg/dL (Normal) Range: 0.57-1.00 47-Kop-995693:54 Total Protein,24 Hour Urine Comments: PATIENT NOT FASTINGPERFORMED BY: [employer] Spojgi5965 [facility] [id number]; has fu 4-28 (26220) Prot,24hr calculated 354.6 {mg/24_hr} (Abnormal) Range: 30.0-150.0 Protein,Total,Urine 39.4 mg/dL (Abnormal) Range: 0.0-15.0 Comments: Effective August 02, 2015 the reference interval for Protein, Total, Urine will be changing to: Not Estab. 44-Ece-822170:45 URINE VMA (77066) Comments: 24 hour urine; PATIENT NOT FASTINGPERFORMED BY: [employer] [address] [id number] VMA, Urine, 24hr 2.3 {mg/24_hr} (Normal) Range: 0.0-7.5 VMA, Urine 3.3 mg/L (Normal) 53-Fgj-111930:50 RENIN (09497) Comments: PATIENT NOT FASTINGPERFORMED BY: [employer] [id number] BY: [employer] Lbiqpq7746 [facility] [id number] Information: [id number] Renin Activity, Plasma 1.17 {ng/mL/hr} (Normal) Comments: Adult Normal Salt Intake: Upright 1.31 - 3.95 Supine 0.15 - 2. 33 . Salt Excretion (Na mEq/24 hr): Na= 0 - 30 8.82 - 23.86 Na= 30 - 75 4.09 - 7.73 Na= 75 - 150 1.44 - 2.80 Na= >150 0.39 - 1.31 29-Dgl-957078:45 METANEPHRINES - URINE (86413) Comments: PATIENT NOT FASTINGPERFORMED BY: [employer] [address] [id number] Metanephrine, U,24hr 50 {ug/24_hr} (Normal) Range: 45-290 Comments: (Hypertensive) >17 years 11 months: 35 - 460 Metanephrine, Ur 71 ug/L (Normal) Normetanephr.,U,24h 319 {ug/24_hr} (Normal) Range: 82-500 Comments: (Hypertensive) >17 years 11 months: 110 - 1050 Normetanephrine, Ur 455 ug/L (Normal) :45 CATECHOLAMINES TOTAL, URINE Comments: PATIENT NOT FASTINGPERFORMED BY: [facility] [address] [id number] Information: SRC:BATSHEVA [id number] START 07/20@9AM NANCY (74856) Dopamine, Ur, 24hr 90 {ug/24_hr} (Normal) Range: 0-510 Dopamine, Urine 128 ug/L (Normal) Norepinephrine,U,24h 48 {ug/24_hr} (Normal) Range: 0-135 Norepinephrine, Ur 68 ug/L (Normal) Epinephrine, U, 24hr 1 {ug/24_hr} (Normal) Range: 0-20 Epinephrine, Urine 2 ug/L (Normal) :50 HgA1C , Office (02355) HgA1C , Office 7.7 % (Abnormal) Range: 4.6 - 7.1 :20 CBC W/Diff, Automated Comments: [facility] Nvrnawkmhd3754 [place], [place], [address] Absolute Lymph 1.40 {X10_3/ul} (Normal) Range: 0.83-4.51 [...] 4.4-11.0 :20 Comprehensive Metabolic Profil Comments: [facility] Dnnphyccre1519 [place], [address] GAP 8 (Normal) Range: 5-15 CO2 26.0 [...] 200 mg/dLsuggests DIABETES MELLITUS per A.D.A. criteria. :49 HgA1C , Office (86329) HgA1C , Office 6.6 % (Normal) Range: 4.6 - 7.1 :04 CBC W/Diff, Automated Comments: [facility] Ivwbxqpuzf2353 [address] [place], [place], [address] Absolute Lymph 1.54 {X10_3/ul} (Normal) Range: 0.83-4.51 [...] 4.2-5.4 WBC 9.0 K/mm3 (Normal) Range: 4.4-11.0 4-Qmo-234063:04 Comprehensive Metabolic Profil Comments: [facility] Svluiusupo0700 Norma [place], [place], [address] GAP 11 (Normal) Range: 5-15 CO2 24.0 [...] <126 mg/dLsuggests IMPAIRED HOMEOSTASIS per A.D.A. criteria. 63-Ekd-17327:10 Basic Metabolic Profile (BMP) Comments: Serial Specimen #1, #2 or #3? 1'TROP' Serial specimen #1, #2, #3, or #4: 1[facility] Bxgbfafgxb6068 [address] [place], [place], [address] GAP 9 (Normal) Range: 5-15 CO2 26.0 [...] 126 mg/dLsuggests DIABETES MELLITUS per A.D.A. criteria. 46-Vxy-24051:10 Carboxyhemoglobin Frac (CO) Comments: [facility] Axwgfmnzsr5096 [facility]. [place], [place], [address] COHb 1.3 % (Normal) Range: 0.0-1.5 Comments: * NON-SMOKER RANGE 1.6 - 5.0% * LIGHT SMOKER RANGE 5.1 - 9.0% * HEAVY SMOKER RANGE :10 CBC W/Diff, Automated Comments: [facility] Fikpphdvvb3886 [facility]. [place], [place], [address] Absolute Lymph 0.87 {X10_3/ul} (Normal) Range: 0.83-4.51 [...] Serial specimen #1, #2, #3, or #4: [address] [place] [address] Dyrkuzuqnm6022 [facility] [place], [address] CKRI 1.9 % (Abnormal) Range: 0.0-1.4 Comments: RELATIVE INDEX >1.5% IS PRESUMPTIVELY POSITIVE CPKMB 1.0 ng/mL (Normal) Range: 0.0-5.0 Comments: CK-MB and RI Interpretation MB Relative Index Non-AMI <or= 5 NA Indeterminate > 5 <or= 4 AMI > 5 > 4 CPK TOTAL 53 U/L (Normal) Range: 26-192 :10 Troponin-I Comments: Serial Specimen #1, #2 or #3? 1'TROP' Serial specimen #1, #2, #3, or #4: [address] [place] [address] Uquvsngylx8136 [facility] [place], [address] TROPONIN-I 0.03 ng/mL (Normal) Comments: TROPONIN-I EXPECTED VALUES <0.05 NEGATIVE 0.06 - 0.59 AT RISK OF WA > OR = 0.60 SUGGEST WA 9-Qbe-140056:28 CBC W/Diff, Automated Comments: Test performed at:[facility] [address] [place] [address] Absolute Lymph 1.31 {X10_3/ul} (Normal) [...] 4.2-5.4 WBC 6.4 K/mm3 (Normal) Range: 4.4-11.0 5-Xld-670302:28 Comprehensive Metabolic Profil Comments: Test performed at:[facility] Trprtlsozs80[address] [place] [address] GAP 7 (Normal) Range: 5-15 [...] Comments: Please note revised CREATININE reference range yabfdzhaw80/22/2015. BUN 14 mg/dL (Normal) Range: 7-18 GLU 145 mg/dL (Abnormal) Range: 70-110 Comments: Fasting Glucose result greater than or equal to 126 mg/dLsuggests DIABETES MELLITUS per A.D.A. criteria. :17 HgA1C , Office (76200) HgA1C , Office 6.2 % (Normal) Range: 4.6 - 7.1 :34 CBC W/Diff, Automated Comments: Test performed at:[facility] Fvfdjhyfak7[address] [place] [address] Absolute Lymph 0.90 {X10_3/ul} (Normal) [...] 4.2-5.4 WBC 5.2 K/mm3 (Normal) Range: 4.4-11.0 [id number] Comprehensive Metabolic Profil Comments: Test performed at:[facility] [address] [place] [place], [place] [id number] GAP 7 (Normal) Range: 5-15 CO2 28.0 [...] <126 mg/dLsuggests IMPAIRED HOMEOSTASIS per A.D.A. criteria. [id number] Lipid Profile Comments: Test performed at:[facility] [address] [place] [id number] VLDL 33 mg/dL (Normal) Range: 5-40 LDL [...] 200-240 mg/dL Borderline >240 mg/dL High Risk [id number] Thyroid Stim Hormone (TSH) Comments: Test performed at:[facility] [address] [place] [address] TSH 2.56 {uIU/mL} (Normal) Range: 0.358-3.74 [id number]-Lta-[id number]:02 CBC W/Diff, Automated Comments: Test performed at:[facility] [address] [place] [address] Absolute Lymph 1.28 {X10_3/ul} (Normal) Range: 0.83-4.51 [...] 4.2-5.4 WBC 6.1 K/mm3 (Normal) Range: 4.4-11.0 [id number]-Dcv-[id number]:02 Comprehensive Metabolic Profil Comments: Test performed at:[facility] [address] [place] [address] GAP 9 (Normal) Range: 5-15 CO2 28.0 [...] per A.D.A. criteria. :47 HgA1C , Office (19703) HgA1C , Office 5.7 % (Normal) Range: 4.6 - 7.1 :47 Blood Glucose , Office (22491) Blood Glucose , Office 132 (Normal) :39 CBC W/Diff, Automated Comments: Test performed at:[facility] Ajpkenlriq6844 Norma Mendez[place], [place] [id number] Absolute Lymph 1.14 {X10_3/ul} (Normal) Range: 0.83-4.51 [...] 4.2-5.4 WBC 6.0 K/mm3 (Normal) Range: 4.4-11.0 39-Qwg-094232:39 Comprehensive Metabolic Profil Comments: Test performed at:[facility] Qaxcmwwvhd2976 [place] [address] GAP 7 (Normal) Range: 5-15 CO2 27.0 [...] 7-18 GLU 100 mg/dL (Normal) Range: 70-110 6-Pqj-127953:38 TSH (48347) Comments: PATIENT NOT FASTINGPERFORMED BY: [facility] Yzlsia1414 [facility] [id number] TSH 4.120 {uIU/mL} (Normal) Range: 0.450-4.500 9-Unx-295229:11 URINE LAINE CULTURE-IDENTIFICATN Comments: PATIENT NOT FASTINGPERFORMED BY: [facility]6370 [facility] [id number] (55603) Antimicrobial MIHEAD (Normal) Comments: S = Susceptible; [...] primarily for treating urinary tract infections. (CLSI, W959-X18,2009) Result 1 ECV (Abnormal) Comments: Escherichia coli, identified by an automated biochemical system.1,000 Colonies/mLProteus mirabilis/penneri1,000 Colonies/mL Urine Final report Culture,Comprehensive (Abnormal) 4-Aky-169928:11 URINALYSIS (21225) Comments: PATIENT NOT FASTINGPERFORMED BY: [facility]6370 [facility] [id number] Information: [id number] Microscopic Examination MICNIP (Normal) Comments: Microscopic not indicated and not performed. Nitrite, Urine Negative (Normal) Urobilinogen,Semi-Qn 0.2 mg/dL (Normal) Range: 0.0-1.9 Bilirubin Negative (Normal) Occult Blood Negative (Normal) Ketones Negative (Normal) Glucose Negative (Normal) Protein Negative (Normal) WBC Esterase Negative (Normal) Appearance Clear (Normal) Urine-Color Yellow (Normal) pH 6.0 (Normal) Range: 5.0-7.5 Specific [place] 1.021 (Normal) Range: 1.005-1.030 3-Mjg-203292:38 CBC, Platelets & Auto Diff Comments: PATIENT NOT FASTINGPERFORMED BY: [facility] VinelandWoedkd4826 [facility] [id number] Information: [id number] (44112) Immature Grans (Abs) 0.0 {x10E3/uL} (Normal) Range: [...] 6.5 {x10E3/uL} (Normal) Range: 3.4-10.8 :38 Lipase (15775) Comments: PATIENT NOT FASTINGPERFORMED BY: [facility] Aohcqj4937 [facility] [id number] Lipase, Serum 19 U/L (Normal) Range: 0-59 :38 Amylase (58678) Comments: PATIENT NOT FASTINGPERFORMED BY: [facility] Ywtupm1547 [facility] [id number] Amylase, Serum 32 U/L (Normal) Range: 31-124 :38 Metabolic Panel, Comprehensive Comments: PATIENT NOT FASTINGPERFORMED BY: [facility] VinelandRjjmus6851 [facility] [id number] (12755) ALT (SGPT) 17 [iU]/L (Normal) Range: 0-32 [...] (Abnormal) Range: 65-99 :28 HgA1C , Office (13695) HgA1C , Office 7.9 % (Abnormal) Range: 4.6 - 7.1 :28 Blood Glucose , Office (79632) Blood Glucose , Office 170 (Normal) :05 HgA1C , Office (07951) HgA1C , Office 7.5 % (Abnormal) Range: 4.6 - 7.1 :05 Blood Glucose , Office (94948) Blood Glucose , Office 267 (Normal) :19 [...] (Normal) Comments: DR FRANCISCO ORDERED CMP CBCDDR BONEZZI ORDERED CMP CBCD Range: 0.358-3.74 42-Yra-764756:03 HgA1C , Office (44264) HgA1C , Office 9.1 % (Abnormal) Range: 4.6 - 7.1 93-Hev-206813:03 Blood Glucose , Office (06312) Blood Glucose , Office 136 (Normal) 08-Xez-643877:22 Blood Glucose , Office (32103) Blood Glucose , Office 204 (Normal) 61-Zce-608244:21 HgA1C , Office (05673) HgA1C , Office 7.3 % (Abnormal) Range: 4.6 - 7.1 :45 HgA1C , Office (04642) HgA1C , Office 7.3 % (Abnormal) Range: 4.6 - 7.1 :45 Blood Glucose , Office (48676) Blood Glucose , Office 176 (Normal) Comments: [...] 126 mg/dLsuggests DIABETES MELLITUS per A.D.A. criteria. :33 HgA1C , Office (84382) HgA1C , Office 7.1 % (Normal) Range: 4.6 - 7.1 :33 Blood Glucose , Office (26409) Blood Glucose , Office 127 (Normal) :40 CBC With Differential/Platelet Comments: PERFORMED BY: [facility] VinelandWpzvuu6981 [facility] [id number] Immature Grans (Abs) 0.0 {x10E3/uL} (Normal) Range: [...] 3.77-5.28 WBC 6.2 {x10E3/uL} (Normal) Range: 4.0-10.5 19-Dqz-195878:40 Comp. Metabolic Panel (14) Comments: PERFORMED BY: [facility] VinelandJaskuv8188 [facility] [id number] ALT (SGPT) 24 [iU]/L (Normal) Range: 0-32 [...] (Abnormal) TSH 3.580 {uIU/mL} Comments: PERFORMED BY: [employer] [facility] Uzunyb6748 [facility] [id number] :40 (Normal) Range: 0.450-4.500 :38 PREALBUMIN (11180) Comments: PATIENT NOT FASTINGPERFORMED BY: [employer] [facility] [address] [place] [address] [id number] Information: ADD [id number] AND DRAW FEE 99 6660 Prealbumin 21 mg/dL (Normal) Range: 20-40 :35 HgA1C , Office (83625) HgA1C , Office 7.3 % (Abnormal) Range: 4.6 - 7.1 :01 HgA1C , Office (74621) HgA1C , Office 7.4 % (Abnormal) Range: 4.6 - 7.1 :46 HgA1C , Office (89689) HgA1C , Office 7.3 % (Abnormal) Range: 4.6 - 7.1 :46 Blood Glucose , Office (72827) Blood Glucose , Office 193 (Normal) 15-Hui-583293:12 HgA1C , Office (60749) HgA1C , Office 6.7 % (Normal) Range: 4.6 - 7.1 81-Czn-914293:12 Blood Glucose , Office (88733) Blood Glucose , Office 103 (Normal) 22-Yqu-759705:26 CBCMD RBCM NORM C+C {NORMAL} (Normal) PE [...] 4.2-5.4 WBC 7.2 K/mm3 (Normal) Range: 4.4-11.0 :26 CMP GAP [...] 7-18 GLU 80 mg/dL (Normal) Range: 70-110 11-Rox-124176:26 LIPID VLDL 12 mg/dL (Normal) Range: 5-40 [...] Very High > or = 500 mg/dL 17-Wez-438123:26 MIACRE tMICROCREAT 14.2 {mg/g_CRE} (Normal) MIALB 10.9 mg/L (Normal) CREU 76.7 mg/dL (Normal) 60-Run-093347:21 HgA1C , Office (08136) HgA1C , Office 6.7 % (Normal) Range: 4.6 - 7.1 93-Lvg-957324:21 Blood Glucose , Office (77149) Blood Glucose , Office 88 (Normal) 8-Yua-222223:06 CBCD SMEAR COMMENT SeeNote (Normal) Comments: Result: [...] 4.2-5.4 WBC 7.2 K/mm3 (Normal) Range: 4.4-11.0 5-Qzf-636508:06 COMP METABOLIC GAP 8 (Normal) Range: 5-15 [...] (Normal) Range: 8-252 :30 HgA1C , Office (36709) HgA1C , Office 8.4 % (Abnormal) Range: 4.6 - 7.1 :30 Blood Glucose , Office (48172) Blood Glucose , Office 232 (Normal) :39 HgA1C , Office (38471) HgA1C , Office 8.2 % (Abnormal) Range: 4.6 - 7.1 :39 Blood Glucose , Office (04376) Blood Glucose , Office 181 (Normal) :20 CBCD,SMEAR DIFF Comments: ORDERED CBCD,CMPDR.ROSELYN ORDERED CBCMD,LIPID,CMP,MICROALB [...] Range: 4.4-11.0 :20 COMP METABOLIC Comments: ORDERED CBCD,CMPDR.BONEZZI ORDERED CBCMD,LIPID,CMP,MICROALB [...] mg/dL suggests DIABETES MELLITUS per A.D.A. criteria. 15-Tga-860509:20 LIPID Comments: ORDERED CBCD,CMPDR.ROSELYN ORDERED CBCMD,LIPID,CMP,MICROALB LDL [...] 200-240 mg/dL Borderline >240 mg/dL High Risk 19-Htz-066305:04 Blood Glucose , Office (82002) Blood Glucose , Office 244 (Normal) :36 HgA1C , Office (28625) HgA1C , Office 7.5 % (Abnormal) Range: 4.6 - 7.1 :36 Blood Glucose , Office (92854) Blood Glucose , Office 178 (Normal) :24 HgA1C , Office (41608) HgA1C , Office 6.8 % (Normal) Range: 4.6 - 7.1 :24 Blood Glucose , Office (09529) Blood Glucose , Office 141 (Normal) Comments: [...] mg/dL suggests DIABETES MELLITUS per A.D.A. criteria. 61-Hoa-807568:58 LIPID Comments: DR DEMPSEY ORDERED LIPID DR [...] 200-240 mg/dL Borderline >240 mg/dL High Risk 30-Fns-230135:02 HgA1C , Office (02654) HgA1C , Office 6.9 % (Normal) Range: 4.6 - 7.1 :02 Blood Glucose , Office (78567) Blood Glucose , Office 251 (Normal) :11 [...] DOT DIRECT 52 AU/mL (Normal) :54 ANTI-CCP 385438 > 250 {units} Range: 0-19 (Abnormal) Comments: [...] mm/h (Abnormal) Range: 0-30 :54 HB CORE [id number] SeeNote (Normal) Comments: Result: NegativePerformed at: [facility] [address] [id number] Director: Yasmine Cabrera MD, Phone: [phone] at: [facility] LabCo[address] [id number] Director: Jovani Odom MD, Phone: [phone] :[phone] HBsAg 6510 HB SURF AG 6510 SeeNote (Normal) Comments: Result: Negative :54 HEBSAB 6395 < 0.1 (Normal) Range: 0.00-0.99 Comments: Status of Immunity Anti-HBs Level Inconsistent with Immunity 0.00 - 0.99Consistent with Immunity >0.99.An Index Value of 1.00 is equivalent to 10 mIU/mL.However the magnitude of the Index Value is notindicative of the total amount of antibody present. :54 HEP C AB 393379 <0.1 (Normal) Range: 0.0-0.9 Comments: Negative: < 0.8Indeterminate 0.8 - 0.9Positive: > 0.9.In order to reduce the incidence of a false positiveresult, the CDC recommends that all s/co ratiosbetween 1.0 and 10.9 be confirmed with additionalRIBA or PCR testing. :54 RHEUMATOID FAC 539.0 {IU/mL} (Abnormal) :54 VIT D,25 02376 27.3 ng/mL (Abnormal) Range: 32.0-100.0 Comments: Recent studies consider the lower limit of 32.0 ng/mL to gloria threshold for optimal health.Alexander MARY. J Nutr. 2004;135(2):317-22. :30 HAND,MIN 3 VIEWS ([place]) Radiology Report See Note (Normal) Comments: Exam Number: [id number] CLINICAL:This a 64-year-old female patient with history of pain. X-RAY EXAMINATION RIGHT HAND TECHNIQUE:Three views of the hand. COMPARISON:None. FINDINGS:Normal visualized carpal bones. Normal metacarpal bones. Normal visualized phalanges. Normal carpal articulations. Normal metacarpophalangeal joints. There are degenerative changesof the interphalangeal joints. There is no d emonstrated soft tissue swelling. IMPRESSION:Chronic degenerative changes, as discussed above. Reported By: VIDHYA NORRIS 77-Apg-062663:29 HAND,MIN 3 VIEWS ([place]) Radiology Report See Note (Normal) Comments: Exam Number: [id number] CLINICAL:This is a 64-year-old female patient with [...] as discussed above. Reported By: VIDHYA NORRIS 53-Jkl-986829:45 Anti-dsDNA Antibodies Comments: PATIENT WAS FASTINGPERFORMED BY: [employer] Bpichw9395 [facility] [id number] BY: [address] [id number] Anti-DNA (DS) Ab Qn 1 {IU/mL} (Normal) Range: 0-9 Comments: Negative <5Equivocal 5 - 9Positive >9 93-Uks-876557:45 Antinuclear Antibodies Comments: PATIENT WAS FASTINGPERFORMED BY: [employer] Pekvtv9461 [facility] [id number] BY: [address] [id number] Direct DOT Direct Negative (Normal) C-Reactive Protein, 5.1 mg/L (Abnormal) Comments: PATIENT WAS FASTINGPERFORMED BY: [employer] Jbrfqg1486 [facility] [id number] BY: [address] [id number] :45 Quant Range: 0.0-4.9 90-Srj-355315:45 CBC With Differential/Platelet Comments: PATIENT WAS FASTINGPERFORMED BY: [employer] Vtqhnb8708 [facility] [id number] BY: [address] [id number] Hematology Comments: Note: (Normal) Comments: Verified by [...] >250 {units} Comments: PATIENT WAS FASTINGPERFORMED BY: [employer] [facility] [id number] BY: [employer] [id number] 3:45 (Abnormal) Range: 0-19 Comments: Negative <20Weak positive 20 - 39Moderate positive 40 - 59Strong positive >59 15-Zpp-424441:45 Comp. Metabolic Panel Comments: PATIENT WAS FASTINGPERFORMED BY: [employer] [facility] [id number] BY: [employer] [id number] (14) Alkaline Phosphatase, S 99 [iU]/L (Normal) [...] ng/mL (Normal) Comments: PATIENT WAS FASTINGPERFORMED BY: Labelby.meKevin [place] 6921770 [facility] [id number] BY: [address] [id number] 13:45 Range: 13-150 20-Aug-2009 Haptoglobin 252 mg/dL Comments: PATIENT WAS FASTINGPERFORMED BY: [facility] CreationsInsp[facility] Center VinelandJazvkk9938 [facility] [id number] BY: [employer] [id number] 13:45 (Abnormal) Range: 34-200 58-Cmm-927180:45 Iron and TIBC Comments: PATIENT WAS FASTINGPERFORMED BY: [facility] CreationsIn[facility] VinelandAwnfdx3335 [facility] [id number] BY: [address] [id number] Iron Bind.Cap.(TIBC) 384 ug/dL (Normal) Range: 250-450 Iron Saturation 6 % (Abnormal) Range: 15-55 Iron, Serum 24 ug/dL (Abnormal) Range: 35-155 UIBC 360 ug/dL (Normal) Range: 150-375 LDH 190 [iU]/L (Normal) Comments: PATIENT WAS FASTINGPERFORMED BY: [employer] [place] [address] [id number] BY: [employer] [id number] :45 Range: 100-250 42-Qpq-716346:45 Lipid Panel With LDL/HDL Comments: PATIENT WAS FASTINGPERFORMED BY: [employer] Owsowi7739 [facility] [id number] BY: [employer] [id number] Ratio HDL Cholesterol 41 mg/dL (Normal) Comments: [...] 182 nmol/L Comments: PATIENT WAS FASTINGPERFORMED BY: [employer] [id number] BY: [address] [id number] 3:45 Serum (Normal) Range: 73-376 Comments: The reference range for methylmalonic acid has been set at +3sd abovethe mean for healthy blood bank donors. In the clinical assessment ofpatients with megaloblastic anemias a cutoff of +3sd provides gr eaterspecificity in the diagnosis of the vitamin deficiency states,despite the sacrifice of some sensitivity. 49-Qlk-431684:45 PT and PTT Comments: PATIENT WAS FASTINGPERFORMED BY: [facility]6370 [facility] [id number] BY: [address] [id number] aPTT 29 {sec} (Normal) Range: 24-33 Comments: This test has not been validated for monitoring unfractionated heparintherapy. aPTT-based therapeutic ranges for unfractionated heparintherapy have not been established. For general guidelines onHeparin monitoring, refer to the [facility] Directory of Services. Prothrombin Time 11.1 {sec} Range: 8.7-11.5 (Normal) INR 1.1 (Normal) Range: 0.8-1.2 Comments: Reference interval is for non-anticoagulated patients..Suggested INR therapeutic range for Vitamin Kantagonist therapy:Standard Dose (moderate intensitytherapeutic range): 2.0 - 3.0Higher intensity therapeutic range 2.5 - 3.5 20-Aug-2009 Reticulocyte Count 2.4 % (Normal) Comments: PATIENT WAS FASTINGPERFORMED BY: [employer] Afdrkd2691 [facility] [id number] BY: [address] [id number] 13:45 Range: 0.5-3.0 20-Aug-2009 RPR Non Reactive Comments: PATIENT WAS FASTINGPERFORMED BY: [facility] Lkfeyt2320 [facility] [id number] BY: [address] [id number] 13:45 (Normal) 20-Aug-2009 Sedimentation 13 mm/h (Normal) Comments: PATIENT WAS FASTINGPERFORMED BY: [facility]6370 [facility] [id number] BY: [facility] [id number] 13:45 Rate-Westergren Range: 0-30 20-Aug-2009 TSH 2.470 {uIU/mL} Comments: PATIENT WAS FASTINGPERFORMED BY: [facility]6370 [facility] [id number] BY: [address] [id number] 13:45 (Normal) Range: 0.450-4.500 63-Dhr-831510:45 Vitamin B12 and Folate Comments: PATIENT WAS FASTINGPERFORMED BY: LabMonica [place] 9910670 [facility] [id number] BY: [employer] [id number] Folate (Folic Acid), Serum 10.5 ng/mL (Normal) Comments: Indeterminate: 2.2 - 3.0Deficient: <2.2 Vitamin B12 583 pg/mL (Normal) Range: 211-946 69-Qap-268739:18 HgA1C , Office (77775) HgA1C , Office 7.3 % (Abnormal) Range: 4.6 - 7.1 92-Sot-715925:18 Blood Glucose , Office (58119) Blood Glucose , Office 167 (Normal) Plan [...] Knee pain Planned Observations Metabolic Panel, Comprehensive (89628)Indication: Rheumatoid arthritis On: 95-Dkd-623431:41 Request Comments: Mar 2017 MICROALBUMIN: CREATININE RATIO (79217) AND (70372)Indication: Diabetes mellitus type II, controlled On: 1-Qtz-268943:50 Request VITAMIN B12 AND FOLATES (02726)Indication: Diabetes mellitus type II, controlled On: 5-Rbz-057182:50 Request CALCIFEDIOL (28644)Indication: Diabetes mellitus type II, controlled On: 1-Tkb-360188:50 Request TSH (THYROID STIMULATING HORMONE) (23536)Indication: Hypothyroidism On: 2-Est-148000:50 Request LIPID PANEL (90198)Indication: Hypercholesteremia On: 7-Cwj-172415:50 Request METABOLIC PANEL, COMPREHENSIVE (85698)Indication: Diabetes mellitus type II, controlled On: 4-Zoe-072460:50 Request CBC, PLATELETS & AUT DIFF (80767)Indication: Diabetes mellitus type II, controlled On: 5-Pmu-117028:49 Request IRON (56461)Indication: Anemia On: 16-Adk-291954:05 Request Blood Glucose , Office (29660)Indication: Diabetes mellitus type II, controlled On: 56-Oaz-71479:32 Request MICROALBUMIN: CREATININE RATIO (25403) AND (97203)Indication: Diabetes mellitus type II, controlled On: :06 Request VITAMIN B12 AND FOLATES (26783)Indication: Vitamin D deficiency On: : Request VITAMIN D, 1, 25-DIHYDROXY (83124)Indication: Vitamin D deficiency On: : Request LIPID PANEL (26405)Indication: Hypercholesteremia On: : Request METABOLIC PANEL, COMPREHENSIVE (20291)Indication: Diabetes mellitus type II, controlled On: : Request CBC, PLATELETS & AUT DIFF (85667)Indication: Diabetes mellitus type II, controlled On: :59 Request TSH (THYROID STIMULATING HORMONE) (52040)Indication: Hypothyroidism On: Request POTASSIUM SERUM (80247)Indication: Hyperkalemia On: :59 Request Comments: 2-3 weeks CALCIFIDIOL (87462) VIT D 25Indication: Vitamin D deficiency On: :34 Request TSH (00450)Indication: Hypothyroidism On: :34 Request MICROALBUMIN: CREATININE RATIO (59883) AND (21759)Indication: Diabetes mellitus type II, controlled On: :34 Request URINALYSIS, W/ MICRO (07981)Indication: Diabetes mellitus type II, controlled On: :34 Request TSH (75792)Indication: Hypothyroidism On: :34 Request METABOLIC PANEL, COMPREHENSIVE (77061)Indication: Diabetes mellitus type II, controlled On: :34 Request LIPID PANEL (41851)Indication: Diabetes mellitus type II, controlled On: :34 Request CBC with auto diff (59228)Indication: Diabetes mellitus type II, controlled On: :34 Request CBC with auto diff (23809)Indication: Hypertension, benign On: : Request METABOLIC PANEL, COMPREHENSIVE (09766)Indication: Hypertension, benign On: :26 Request LIPID PANEL (67867)Indication: Hypertension, benign On: :26 Request TSH (28090)Indication: Hypothyroidism On: :26 Request CBC WITH MANUAL DIFF (42923)Indication: Hypertension, benign On: 51-Kkh-454151:21 Request METABOLIC PANEL, COMPREHENSIVE (04469)Indication: Hypertension, benign On: 61-Wuk-001702:21 Request TSH (74869)Indication: Hypothyroidism On: 92-Pkh-410203:21 Request Methymalonic Acid, Serum (81537)Indication: Thrombocytopenia, unspecified On: :48 Request Vitamin B-12 (cyanocobalamin) (28477)Indication: Thrombocytopenia, unspecified On: :48 Request CBC, Platelets & Auto Diff (08571)Indication: Thrombocytopenia, unspecified On: :48 Request Comments: citrate METABOLIC PANEL, COMPREHENSIVE (82890)Indication: Hypertension, benign On: 31-Ogs-510259:59 Request CBC WITH MANUAL DIFF (77215)Indication: Hypertension, benign On: 70-Pxr-401606:59 Request TSH (77604)Indication: Hypothyroidism On: 78-Nff-978131:29 Request METABOLIC PANEL, COMPREHENSIVE (05373)Indication: Hypertension, benign On: 11-Wgt-302936:29 Request Blood Glucose , Office (23570)Indication: Diabetes mellitus type II, controlled On: 64-Xsi-463865:35 Request TSH (95198)Indication: Hypothyroidism On: 18-Vpm-090270:19 Request METABOLIC PANEL, COMPREHENSIVE (05651)Indication: Diabetes mellitus type II, controlled On: 15-Rbd-174448:19 Request LIPID PANEL (36318)Indication: Diabetes mellitus type II, controlled On: 42-Rnq-609813:19 Request Blood Glucose , Office (78239)Indication: Diabetes mellitus type II, controlled On: 71-Wbi-845704:01 Request TSH (36567)Indication: Thyroid disorder On: 58-Fyf-012971:29 Request MICROALBUMIN: CREATININE RATIO (68305) AND (96840)Indication: Diabetes mellitus type II, controlled On: :26 Request METABOLIC PANEL, COMPREHENSIVE (74157)Indication: Diabetes mellitus type II, controlled On: :26 Request LIPID PANEL (33755)Indication: Diabetes mellitus type II, controlled On: :26 Request CBC WITH MANUAL DIFF (39402)Indication: Diabetes mellitus type II, controlled On: 95-Isw-517404:26 Request CBC WITH MANUAL DIFF (78236)Indication: Diabetes mellitus type II, controlled On: 20-Bnz-227983:52 Request MICROALBUMIN: CREATININE RATIO (96807) AND (66947)Indication: Diabetes mellitus type II, controlled On: 91-Jfk-261328:29 Request METABOLIC PANEL, COMPREHENSIVE (77414)Indication: Diabetes mellitus type II, controlled On: 38-Srz-253847:29 Request LIPID PANEL (24255)Indication: Diabetes mellitus type II, controlled On: 05-Ctn-224664:29 Request CBC WITH MANUAL DIFF (78942)Indication: Diabetes mellitus type II, controlled On: 63-Clz-663072:29 Request FERRITIN (66816)Indication: Anemia On: 0-Wor-512140:26 Request CBC with manual diff (63425)Indication: Anemia On: 29-May-20119:12 Request HgA1C , Office (48576)Indication: Diabetes mellitus type II, controlled On: 23-Mvc-139489:04 Request METABOLIC PANEL, COMPREHENSIVE (62433)Indication: Hypercholesteremia On: 76-Sel-197642:15 Request LIPID PANEL (48118)Indication: Hypercholesteremia On: 23-Lgy-992444:15 Request Lipid Panel (67199)Indication: Hypercholesteremia On: 86-Qrf-667889:50 Request RPR (RAPID PLASMA REAGIN) (88082)Indication: Neuropathy On: 84-Gdo-466570:48 Request TSH (60017)Indication: Thyroid disorder On: 27-Sqe-156185:48 Request HAPTOGLOBIN (48176)Indication: Anemia On: 84-Evc-916690:46 Request PTT (Activated Partial Thromboplastin Time) (09024)Indication: Anemia On: 29-Bha-950333:46 Request PT (Prothrobim Time) (19841)Indication: Anemia On: 72-Tor-630503:46 Request RETICULOCYTE COUNT (41814)Indication: Anemia On: 74-Sjh-776925:46 Request LDH (LD) (LACTATE DEHYDROGENASE) (26189)Indication: Anemia On: 14-Rhn-428686:46 Request Methylmalonic acid, serum 45295Gkpazvfxjh: Anemia On: 18-Ixs-465431:46 Request Vitamin B-12 (cyanocobalamin) (36328)Indication: Anemia On: 71-Zxo-098038:46 Request Iron Binding Capacity (TIBC) (97607)Indication: Anemia On: 60-Kql-510318:46 Request Iron (23555)Indication: Anemia On: 90-Dxd-067427:46 Request Folic Acid Serum (01194)Indication: Anemia On: 16-Lpv-987305:46 Request Ferritin (43065)Indication: Anemia On: 79-Zip-659985:46 Request DNA ANTIBODY-NATV/DBL ST (62475)Indication: Pain in unspecified joint On: 71-Vsd-656158:46 Request CCP ANTIBODY (63379)Indication: Pain in unspecified joint On: 98-Eoy-902287:45 Request SED RATE ERYTHROCYTE (83140)Indication: Pain in unspecified joint On: 54-Dfr-142953:45 Request C-REACTIVE PROTEIN (86930)Indication: Pain in unspecified joint On: 53-Ujl-195308:45 Request TSH (95122)Indication: Pain in unspecified joint On: 67-Ejk-984714:45 Request RHEUMATOID FACTOR-QUANT (80903)Indication: Pain in unspecified joint On: 52-Wlp-811717:45 Request DOT (ANTINUCLEAR ANTIBODY) (59760)Indication: Pain in unspecified joint On: 94-Tad-841369:45 Request CBC WITH MANUAL DIFF (46466)Indication: Pain in unspecified joint On: 02-Wji-131484:45 Request METABOLIC PANEL, COMPREHENSIVE (00060)Indication: Pain in unspecified joint On: 93-Eel-933443:45 Request Planned Encounters Medical; [facility] Medicare Physical - On: 20-Feb-2018 10:15 [facility] Mayra Goodman CNP, CNP, Mary E Planned Procedures Flu Vaccine (Quadrivalent) On: 30-Jan-2018 Intent 11272Vz: Mayra Goodman CNP Comments: Lot #[id number], IMDose prefilled syringegiven by: TATYANA HART reviewed and ABN signed Mayra Goodman CNP Flu Vaccine (Quadrivalent) On: 10-Jan-2017 Intent 61692Nz: Mayra Goodman CNP Comments: Lot #[id number]/10/17[employer], IMDose prefilled syringegiven by:SAMREEN SuttonNNETO and ABN signed Mayra Goodman CNP Flu Vaccine (Quadrivalent) On: 15-Dec-2015 Intent [id number]: Rafael Thomas MD Comments: Lot #[id number] dltd, IMDose prefilled syringegiven by:TATYANA Sutton and ABN signed MRI OF CERVICAL SPINE WITHOUT On: 19-Jul-2015 Intent CONTRAST ([id number])By: Katelyn Dempsey MD Ultrasound - RenalBy: Roselyn On: 06-Jul-2015 Intent Katelyn SORTO Renal Artery DopplerBy: On: 06-Jul-2015 Intent Katelyn Dempsey MD MRI OF CERVICAL SPINE WITH On: 06-Jul-2015 Intent CONTRAST ([id number])By: Katelyn Dempsey MD EMGBy: Katelyn Dempsey MD On: 06-Jul-2015 Intent Nerve ConductionBy: Roselyn On: 06-Jul-2015 Intent Katelyn SORTO Comments: right arm MRI OF BRAIN WITH CONTRAST On: 06-Jul-2015 Intent ([id number])By: Katelyn Dempsey MD Kenalog Injection, 10 mgm On: 01-Jun-2015 Intent (J3301)By: Katelyn Dempsey MD EKG ([id number])By: Roselyn SORTO, On: 06-Oct-2014 Intent Katelyn Pedroza Comments: see scanned document of test done to see results reviewed today with patient Nuclear Stress Test/Stress On: 06-Oct-2014 Intent SPECT/AdenosineBy: Katelyn Dempsey MD Ultrasound - PelvisBy: On: 26-Jan-2014 Intent Katelyn Dempsey MD Flu Vaccine (Quadrivalent) On: 26-Jan-2014 Intent [id number]: Katelyn Dempsey MD Comments: Lot #:[id number] Expiration [...] 03-Nov-2013 Intent (J3301)By: Katelyn Dempsey MD EKG ([id number])By: Roselyn SORTO, On: 12-May-2013 Intent Katelyn Pedroza Comments: see scanned document of test done to see results reviewed today with patient ADMINISTRATION OF INFLUENZA On: 11-Feb-2013 Intent VIRUS VACCINE (G0008)By: Dante Comments: Lot #[id number]-[id number] dltd, IMDose prefilled syringegiven by:Faviola Cote LPN FLU VAC, SPLIT, >3 YEARS, On: 11-Feb-2013 Intent INTRAMUSC ([id number])By: Faviola Howell LPN Eprescribed prescriptions On: 11-Feb-2013 Intent (G8553)By: Faviola Howell LPN Eprescribed prescriptions On: 12-Nov-2012 Intent (G8553)By: Faviola Howell LPN IMMUNIZ ADMNIN, 1 VAC, On: 29-Aug-2012 Intent SNGL/COMBO (70418)By: Chante Owen LPN [place] ([id number])By: On: 29-Aug-2012 Intent Chante Owen LPN Eprescribed prescriptions On: 13-Aug-2012 Intent (G8553)By: Faviola Howell LPN Eprescribed prescriptions On: 14-May-2012 Intent (G8553)By: Faviola Howell LPN Solu -Medrol Injection, 125 On: 05-Apr-2012 Intent mg (J2930)By: Mayra Goodman CNP, CNP, Mary E ADMINISTRATION OF INFLUENZA On: 12-Feb-2012 Intent VIRUS VACCINE (G0008)By: HARESH Griffin FLU VAC, SPLIT, >3 YEARS, On: 12-Feb-2012 Intent INTRAMUSC ([id number])By: HARESH Griffin PNEUM VAC ADLT/IMUMNOSPR, On: 13-Nov-2011 Intent SBC/INTRM ([id number])By: Roselyn Comments: Lot:Exp:2.14 [id number]:[id number]:Ebony arm, IMGiven By:Katelyn SANFORD MD ADMINISTRATION OF On: 13-Nov-2011 Intent PNEUMOCOCCAL VACCINE (G0009)By: Katelyn Dempsey MD Eprescribed prescriptions On: 21-Jul-2010 Intent (G8553)By: Katelyn Dempsey MD MAMMOGRAM, SCREENING, BOTH On: 22-Apr-2010 Intent BREASTS ([id number])By: Katelyn Dempsey MD Radiology - Hand - On: 06-Sep-2009 Intent BilateralBy: Katelyn Dempsey MD Comments: copy to maryam Pedroza Planned Medications INJECTION, METHYLPREDNISOLONE SODIUM SUCCINATE, UP TO 125 MG Ordered: 05-Apr-2012 Pending Ciesa DESIGN SUPERVISOR, Ivonne Ciesa DESIGN SUPERVISOR, Ivonne INJECTION, TRIAMCINOLONE ACETONIDE, NOT OTHERWISE SPECIFIED, [...] controlled : DISCONTINUED - MICROALBUMIN: CREATININE RATIO (23298) AND (37704) Indication: Diabetes mellitus type II, controlled Iron [...] signatureDebility pr End: 30-Jan-2018 11:32 esents in [facility]. Sees Dr. Child recently treated [...] for Transition into care: Was admitted to [facility] on Oct 28, 2016 with weakness un [...] deficiency, Rheumatoid arthritis, Blood in stool, Anemia, Wetzel's, Anemia [facility] Office Visit On: [...] Nutrition: balanced diet and supplemental vitamins. The pa dical issues the patient is following up [...] The patient does have durable power of cone former and living will. The patient has noticed nothing from the geriatic depression scale. Other providers contributing to the patient's care a re gastrologist ( @[facility] in [facility] for colonscopy ), food service steward (Dr. Francisco ) and other: (Aeronautical Engineer: Dr. Child , Pain Management: Dr. Mcfadden [...] Nutrition: balanced diet and supplemental vitamins. The pa dical issues the patient is following up [...] patient does have du rable power of cone former and living will. The patient has noticed nothing from the geriatic depression scale. Other providers contributing to the patient's care are gastrologist ( @[facility] in [facility] for colonscopy ), food service steward (Dr. Francisco ) and other: (Aeronautical Engineer: Dr. Child , Pain Management: Dr. Mcfadden [...] use: no side effects. Patient sleeps 9 (11/02 - using aide prn) hours per night. [...] [facility] 9 (8/10) [facility]01 ct of disease: emotional [...] Nutrition: balanced diet and supplemental vitamins. The pa dical issues the patient is following up [...] 19-Aug-2009 12:22 Payers MedicareMutual of OmahaMedicaidBarbara Jackson; donavon guarantor
--- OUTSIDE RECORDS SUMMARY | 2018-04-22 10:12 | XMS RPT_ITS | Continuity of Care Document ---
:1945 Author Organization [facility] Address [address] [facility] [address] [place] [address] Phone Care Team Providers Name Role Phone [...] 72.8Cannot tolerate Fe supplment Status: Active Anemia, [place]'s (D51.0, 281.0) Status: Active Arthritis, rheumatic, acute or subacute (I00, 390) Comments: see [place] pain dr. mcfadden every 3 monthsFentyl patch [...] in 2006.Now microcytic anemia Status: Active BMI 36.0-36.9,adult (Z68.36, V85.36) Status: Active BMI 37.0-37.9, adult (Z68.37, V85.37) Status: Active BMI 37.0-37.9, adult (Z68.37, V85.37) Status: Active Charcot foot due to diabetes mellitus (E11.610, 250.60) Comments: sees Dr Child Status: Active Chronic Kidney Disease, Stage III (Moderate) (585.3) Comments: us and COLLETTE negatrive -. crc 57 send info to nimisha on aravaCr [...] Fede Stent [address] Campa in [place] Status: Active Current nonsmoker (Renamed from Current non-smoker) (Z78.9, V49.89) Status: Active Daytime somnolence (R40.0, 780.54) Comments: sleeping too much or boredom Status: Active Debilitated (R53.81, 799.3) Comments: will get PT in house Status: Active Deliveries (Parity) Comments: 1 Status: [...] no vomiting, resoled after stopping trulicity(03/10)Junuvia on zwc268kl once daily Rageye exam yearly(12/09/15), catarctekg cardiology Dr Cross, stents 1 in 2003Podiatry: Dr Child [facility], every 3 months, Has multiple toe [...] Sees pain management Dr. Mcfadden at [facility], she prescribes lyrica, dose increased [...] toprol BP stable sees Dr. 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 failure. evaluated by neurology and felt to possibly have status epilepticus, but EEG showed severe encephalopathy.possible narcotic/drug overdose, was then weaned off ventilator or sent to [facility] Status: Active Mitral valve stenosis (I05.0, 394.0) Comments: MODERATE: Saw Dr Cross (does not want to see him again, was told needs mitral valve replacement as is not candidate for valvuloplastyNew Dr : DR Kee Campa(show low)per pt does not receomemd surgery at this time.Reviewed notes, he saidWill need to gather more information at this time , will follow up in 06/[address] Campa but not surgical candidate Status: Active NEED FOR PROPHYLACTIC VACCINATION AND INOCULATION AGAINST INFLUENZA (Z23, V04.81) Status: Active Nonsmoker (Z78.9, V49.89) [...] disease) (I73.9, 443.9) Comments: angioplasty 12-12 Dr. Smtih. done because nonhealing wound. stable no signs and symptomsleft small artery Status: Active Recurrent oral ulcers (K13.79, 528.9) Status: Active Rheumatoid arthritis (M06.9, 714.0) Comments: Arava(Dr Francisco) holding DR Francisco 04/11DR Bogdan Pain managemenet 21 dec 2015: Lyrica , general pain gets percocettDr Maryam CHADWICK and OABelinda achy Status: Active Seizure (R56.9, 780.39) Comments: [...] V49.72) Comments: June 2016 Dr. Child, with [facility] Status: Active Ulcer of foot (L97.509, [...] for new wheelchair, she will look at [facility] to see what she would like [...] MCG/ML Injection Solution monthly (1000 MCG/ML) Active FLUoxetine HCl 40 MG Oral Capsule [...] Quantity: 60 {Tablet} Refills: 2 Ordered:03-Jul-2016 Maxine HNITON, Mayra Lin CNP Mayra George Start : 03-Jul-2016 Active Comments:please give $4 prescription of glucophage, asaft do metformin(has diarhea with metformin, not with generic glucophage ) Levemir 100 UNIT/ML Subcutaneous Solution 1 (one) Solution 30 in AM and 30 at bedtime for 30 days Quantity: 2 {Package} Refills: 1 Ordered:03-Jul-2016 Maxine HINTON, Mayra Rodriguez CNP Start : 03-Jul-2016 Active Comments:Total 60 units [...] 0 Ordered:01-Jan-2018 Gabbi Lozada Start : 01-Jan-2018 Active OneTouch Lancets Miscellaneous 1 (one) Misc Misc test bid for 90 days Quantity: 1 {Box} Refills: 3 Ordered:18-Oct-2015 Rafael Thomas MD Start : 18-Oct-2015 Active Comments:E11.9 ONETOUCH ULTRA BLUE (In Vitro Strip) 1 (one) Strip Strip test bid for 0 days Quantity: 100 {Strip} Refills: 3 Ordered:19-Jul-2015 Katelyn Dempsey MD Start : 19-Jul-2015 Active Comments:E11.9NPI: [phone] PERCOCET, 7.5-325MG (Oral Tablet) 2 (two) Tablet every 4 hours prn for 0 days Quantity: 160 {Tablet} Refills: 0 Ordered:08-Sep-2015 Rafael Thomas MD Start : 08-Sep-2015 Active Comments:one hundred and sixty Pravastatin Sodium 20 MG Oral Tablet 1 Tablet QD for 30 days Quantity: 30 {Tablet} Refills: 1 Ordered:17-Oct-2017 Mayra Goodman CNP, CNP, Mayra George Start : 17-Oct-2017 Active PredniSONE 10 MG Oral Tablet 1 Tablet take 3 daily x 3 days, 2 daily x 3 days, 1 daily x 3 days PRN for 0 days Quantity: 30 {Tablet} Refills: 0 Ordered:15-Dec-2015 Rafael Thomas MD Start : 15-Dec-2015 Active Quinapril HCl 40 MG Oral Tablet 1 Tablet QD for 30 days Quantity: 30 {Tablet} Refills: 3 Ordered:07-Nov-2017 Mayra Goodman CNP, CNP, Mary E Start : 07-Nov-2017 Active Spironolactone 25 MG Oral Tablet 1 Tablet QD for 30 days Quantity: 30 {Tablet} Refills: 3 Ordered:05-Nov-2017 Mayra Goodman CNP, CNP, Mary E Start : 05-Nov-2017 Active Toprol XL 50 MG Oral Tablet Extended Release 24 Hour 1 (one) Tablet ER 24HR qd for 0 days Quantity: 30 {Tablet} Refills: 6 Ordered:09-Jul-2017 Jacqueline Sandy DO Start : 09-Jul-2017 Active Vitamin D3 2000 UNIT Oral Capsule 2 (two) Capsule bid for 30 days Quantity: 60 {Capsule} Refills: 3 Ordered:17-Oct-2017 Maxine NURSING UNIT CLERK, Mayra Lin NURSING UNIT CLERK, Ivonne Start : 17-Oct-2017 Active Accu-Chek FastClix [...] Refills: 3 Ordered:18-Dec-2016 Mayra Goodman CNP, CNP Mayra George Start : 08-Sep-2015 End : 18-Dec-2016 Inactive [...] 31-Mar-2015 End : 01-Apr-2015 Inactive Comments:SSI: 151-200-1 fsme367-079-8 units 389-831-2ntfmq 301-350-4 units 351-400-5 unitsover 400 give 5 units and call provider Januvia 100 MG Oral Tablet 1 (one) Tablet daily for 30 days Quantity: 30 {Tablet} Refills: 0 Ordered:10-Jan-2017 Maxine HINTON Mayra Delia HINTON Mayra George Start : 10-Jan-2017 End : [...] days Quantity: 30 {Capsule} Refills: 3 Ordered:31-Mar-2015 HARSEH Griffin Start : 24-Feb-2013 End : 31-Mar-2015 [...] : 13-Aug-2012 End : 13-Aug-2012 Inactive Comments:Dr. Obando - jack d/c PHENYTOIN SODIUM EXTENDED, 100MG (Oral Capsule) [...] 13-Nov-2011 End : 13-Nov-2011 Inactive Comments:Dr. Topher best VICTOSANTOS, 18MG/3ML (Subcutaneous Solution) 1 Solution 0.6 Sq every am then in 1 week up to 1.2 daily for 0 days Refills: 5 Ordered:21-Apr-2011 HARESH Griffin Start : 21-Apr-2011 End : 21-Apr-2011 Inactive Comments:with needles, made me sick as a dog Vitamin D3 28529 UNIT Oral Capsule 1 (one) Capsule once a week for 60 days Quantity: 8 {Capsule} Refills: 0 Ordered:15-Dec-2015 Rafael Thomas MD Start : 15-Dec-2015 End : 13-Feb-2016 Inactive ZOLPIDEM TARTRATE, 10MG (Oral Tablet) 1 Tablet qhs prn for 0 days Quantity: 30 {Tablet} Refills: 3 Ordered:31-Mar-2015 HARESH Griffin Start : 03-Nov-2013 End : 31-Mar-2015 Inactive Comments:thirty ZOSTAVAX, 61561ASD/0.65ML (Subcutaneous Solution Reconstituted) uad For Solution one [...] days Quantity: 30 {Tablet} Refills: 1 Ordered:03-Jul-2016 Slarb Laurel FOOTE Start : 15-May-2016 End : 03-Jul-2016 Discontinued [...] 276.7) Comments: willhold K pills was taking need to stop spirolactone will see. Status: [...] and bone shaving on right arch Colonoscopy 2007 Completed COLONOSCOPY, NOS Completed Comments: 2007 Dr [...] - PT Result: Comments: See Note; NOTES: [facility] Physical Therapy [facility] 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 Please let me know if there are questions or concerns regarding this plan of care. Physician Signature: Date: <Electronically signed by Juanis Sanchez DPT> 12/17/17 10 38 CC: Mayra Goodman NP ELR Signed For Medicare only, by signing this I certify the plan of care. Physicians Signature Date 05-Jan-2016 Stress Test Echo w/ Contrast Result: Comments: See Note; NOTES: [facility] Cardiovascular Services [address] [place] [address] Verdana 4d Stress Test Echo w/o Contrast MR#: [id number] Acct: [id number] Name: TIA MACARIO Rep #: [id number] : 1945 70 From: Pawan Cross MD [...] 30.00 DOBUTAMINE STAGE 4 1:12 12 5 151/44604.00 BASELINE 88 141/55 Stress Duration: 10:12 mm:ss [...] noted. abnormalities noted. EKG Data [place] ECG displays normal sinus rhythm. During dobutamine [...] Physician: Pawan Cross MD Performed By: Arlyn Britton RDCS, R VT 01/05/16 1604 Date Pawan Cross MD CC: Pawan Cross MD; Rafael Thomas Date D ictated: 01/05/16 1037 Date Transcribed: 01/05/161603 Medical Administrative Technician: Signed 18-Nov-2015 Emergency Department Summary Result: Comments: See Note; NOTES: [facility] Medical Records Department [address] [place] [address] Emergency Department Summary MR#: [id number] Acct: [id number] Name: JC SERVIN Rep #: [id number] : 1945 70 From: Jose Mccain MD [...] Charcot. Jose Mccain M.D. T: NTS JOB: [id number] 11/18/15 0739 <Electronically signed by Jose Mccain MD> Date Jose Mccain MD Cosigner Signature (If Indicated): Date CC: Rafael Thomas Date Dictated: 11/10 Date Transcribed: 11/11/151715 Medical Administrative Technician: Signed 11-Nov-2015 Discharge Instruction Result: Comments: See Note; NOTES: [facility] Medical Records Department [address] [place] [address] Discharge Instruction 11/11/15 1451 MR#: [id number] Acct: [id number] Name: TIA SERVIN Rep #: [id number] : 1945 70 From: Jose Mccain MD [...] any unexpected problems, contact your doctor. Call [facility] ([phone]) or report to [facility] Emergency Room. Call 911 if necessary. 11/11/15 2765 <Electronically signed by Jose Mccain MD> Date Jose Mccain MD Cosigner Signature (If Indicated): Date CC: Rafael Thomas 11-Nov-2015 Ankle min 3 Views Result: Comments: See Note; NOTES: [facility] Imaging Services [address] [place] [address] Verdana 4d Ankle min 3 Views MR#: [id number] Acct: [id number] Name: TIA SERVIN Rep #: [id number] : 1945 F 70 From: Clemencia Holden MD PCP: Rafael Thomas Status: [facility] ER Study: Ankle min 3 Views Date of Exam: 11/11/15 Exam# [id number] Ordering Dr: Jose Mccain MD STUDY: X-RAY [...] MD at 14:20 EDT , Service support [phone], CC: Jose Mccain; Rafael Thomas Medical Administrative Technician: Signed 11-Nov-2015 Foot min 3 Views Result: Comments: See Note; NOTES: [facility] Imaging Services [address] [place] [address] Verda 4d Foot min 3 Views MR#: [id number] Acct: [id number] Name: TIA SERVIN Rep #: [id number] : 1945 F 70 From: Clemencia Holden MD PCP: Rafael Thomas Status: [facility] Study: Foot min 3 Views Date of Exam: 11/11/15 Exam# [id number] Ordering Dr: Jose Mccain MD STUDY: X-RAY [...] MD at 14:26 EDT cf, Service support [phone], CC: Jose Mccain; Rafael Thomas Medical Administrative Technician: Signed 08-Nov-2015 PT D/C Summary (1) Result: Comments: See Note; NOTES: [facility] Physical Therapy [facility] [address] [place] [address] Fax REHABILITATION SERVICES DISCHA RGE SUMMARY MR#: [id number] Acct: [id number] Name: TIA SERVIN Rep #: [id number] : 1945 70 From: Laura Wright PT, Cert. MDT Referring Dr.: OUT OF [facility] DOCTOR Status: REG RCR Insurance: MEDICARE PART A B [facility] - PT D/C Summary It has been [...] TO FOLLOW UP WITH DR. LAY IN [place]DAY. SHE REPORTS SHE DOES NOT WANT [...] signed by Cert. MACARIO Rowe PTT> 11/08/15 1035 CC: MISBAH STRONG; Rafeal Thomas; OUT OF TOWN DOCTOR JH Signed 27-Oct-2015 Inital Evaluation (1) - PT Result: Comments: See Note; NOTES: [facility] Physical [facility] [address] [place] [address] Fax REHABILITATION [facility] INITIAL EVALUATION MR#: [id number] Acct: [id number] Name: TIA SERVIN Rep #: [id number] : 1945 70 From: Cert. MACARIO Rowe PTT Referring Dr.: Georgi Lay MD Status: R EG RCR Insurance: MEDICARE PART A B [facility] Patient's Visit Information TIA SERVIN is a [...] THE HOSPITAL ANOTHE WEEK AND THEN A CORRECTION FOR A MONTH TO TRY TO GET HER STRENGTH BACK. PATIENT REPORTS SHE ALSO HAS A HISTORY OF LUMBAR PRO BLEMS AND THEY ARE WORSENING. Recent major surgery: RENETTA LE TOE AMPUTATIONS AND OPEN SORES ON TOES CURRENTLY. HEART CATH/STENTS. RA AND OA. SOCIAL: LIVES ALONE. INDEP LOGISTICS LEAD CURRENTLY. OTHER: PATIENT REPORTS SHE DOES NOT DO WELL IN THERAPY. SHE STATES IT USUALLY CAUSES TOO MUCH PAIN. I ACHE SO BAD WHEN I DO THERAPY. PATIENT REPORTS THEY PUT HER IN THERAPY AT THE CORRECTION AND S HE COULDN'T DO MUCH. - [...] to be FAXED BACK to us at [phone] for Medicare purposes. Please let m e know if there are questions or concerns regarding this plan of care. Physician Signature: Date: <Electronically signed by Laura Wright PT, Cert. MDT> 10/27/15 1206 CC: Georgi Lay MD; Rafael Thomas JH Signed For Medicare only, by signing this I certify the plan of care. Physicians Signature Date 07-Oct-2015 Re-Evaluation - PT (1) Result: Comments: See Note; NOTES: [facility] Physical [facility] [address] [place] [address] Fax REEVALUATION / ME DICARE RECERTIFICATION [place] 4d PHYSICAL THERAPY MR#: [id number] Acct: [id number] Name: TIA SERVIN Rep #: [id number] : 1945 70 From: Laura Wright PT, CertWinston SORTOT Referring Dr.: Wandy Lay MD Status: REG RCR Insurance: MEDICARE PART A B [employer] [place] Georgi Lay MD, It has been my [...] do not hesitate to contact me at [phone] by phone or if you have questions or concerns regarding this new plan of care! Sincerely, Laura Wright <Electronically signed by Laura Wright PT, CertWinston SORTOT> 10/07/15 9589 CC: Georgi Lay MD; Rafael Thomas DT: JH Signed For Medicare only, by signing this I certify the plan of care. Physicians Signature Date 24-Aug-2015 NCS and/or EMG Patient Result: Comments: See Note; NOTES: [facility] Pulmonary Services/Neurology [address] [place] [address] NCS and/or EMG Patient MR#: [id number] Acct: [id number] Name: TIA MARTINEZ Rep #: [id number] : 1945 70 From: Jakob Pino MD Referring Dr: Katelyn Dempsey MD Status: REG CLI Ordering Dr: Katelyn Dempsey MD Date: 08/18/15 Location: PSN Sex: F C DATE OF S ERVICE: [...] median mononeuropathy. This is consistent with a elmo-hn-vvxleyxy right carpal tunnel syndrome. 2. Electrodiagnostic findings demonstrate acute right-sided C5 radiculopat hy. If there are any questions in regards to this exam, please do not hesitate to contact me. Jakob Pino MD T: NTS JOB: [id number] 08/24/15 1521 <Electronically signed by Jakob Pino MD> Date Jakob Pino MD CC: Jakob Pino; Katelyn Dempsey MD Date Dictated: 08/18/151257 Date Transcribed: 08/18/151257 Medical Administrative Technician: Signed 20-Jul-2015 Renal Artery Duplex Result: Comments: See Note; NOTES: [facility] Cardiovascular Services [address] [place] [address] Renal Artery Duplex Ultrasound 07/20/15 0853 MR#: [id number] Acct: [id number] Name: TIA SERVIN Rep #: [id number] : 1945 70 From: Martinez Faulkner MD [...] Dictated: 07/20/15 0853 Date Transcribed: 07/20/15 1210 Medical Administrative Technician: Signed 20-Jul-2015 Kidney and Bladder Result: Comments: See Note; NOTES: [facility] Imaging Services [address] [place] [address] Verdana 4d Kidney and Bladder MR#: [id number] Acct: [id number] Name: TIA SERVIN Rep #: [id number] : 1945 F 70 From: Arabella Peace MD PCP: Katelyn Dempsey MD Status: REG CLI Study: Kidney and Bladder Date of Exam: 07/20/15 Exam# [id number] Ordering Dr: Katelyn Dempsey MD STUDY: RENAL [...] MD at 13:01 EDT , Service support [phone], CC: Katelyn Dempsey MD Medical Administrative Technician: Signed 20-Jul-2015 Brain W/WO Contrast Result: Comments: See Note; NOTES: [facility] Imaging Services [address] [place] [address] Verdana 4d Brain W/WO Contrast MR#: [id number] Acct: [id number] Name: TIA SERVIN Rep #: [id number] : 1945 F 70 From: Arabella Peace MD PCP: Katelyn Dempsey MD Status: REG CLI Study: Brain W/WO Contrast Date of Exam: 07/20/15 Exam# [id number] Ordering Dr: Moe Dempsey MD STUDY: MRI [...] MD at 12:28 EDT , Service support [phone], CC: Katelyn Dempsey MD Medical Administrative Technician: Signed 20-Jul-2015 Spine Cervical (Routine) Result: Comments: See Note; NOTES: [facility] Imaging Services [address] [place] [address] Verdana 4d Spine Cervical (Routine) MR#: [id number] Acct: [id number] Name: TIA ANDRADE Rep #: [id number] : 1945 F 70 From: Arabella Peace MD PCP: Katelyn Dempsey MD Status: REG CLI Study: Spine Cervical (Routine) Date of Exam: 07/20/15 Exam# [id number] Ordering Dr: Katelyn Irby MD STUDY: MRI [...] at 11:49 ED T , Service support [phone], CC: Katelyn Dempsey MD Medical Administrative Technician: Signed 17-Jun-2015 Echocardiogram Complete Result: Comments: See Note; NOTES: [facility] Cardiovascular Services [address] [place] [address] Echo Complete 06/17/15 0753 MR#: [id number] Acct: [id number] Name: TIA ANDRADE Rep #: [id number] : 1945 70 From: Pawan Cross MD Attending Dr: Pawan Cross MD Status: REG CLI Ordering Dr: Pawan Cross MD Date: 06/17/15 Location: [facility] Sex: F [...] M.D. Performed By: No Performed By Selected> 03/24/16 1057 Date Pawan Cross MD CC: Katelyn Dempsey MD; Pawan Cross MD Date Dictated: 06/17/15 0753 Date Transcribed: 06/17/151056 Medical Administrative Technician: Signed 04-Mar-2015 Brain/Head without Contrast Result: Comments: See Note; NOTES: [facility] Imaging Services [address] [place] [address] Verdana 4d Brain/Head without Contrast MR#: [id number] Acct: [id number] Name: TIA SERVIN Rep #: [id number] : 1945 F 69 From: Kahlil Waters PCP: Roselyn SORTO,Katelyn Status: REG ER Study: Brain/Head without Contrast Date of Exam: 03/04/15 Exam# [id number] Esteban rivera Dr: Oleg Nash MD STUDY: [...] 0 at 3:47 EST , Service support [phone], CC: Katelyn Dempsey MD; Oleg Nash M.D. Medical Administrative Technician: Signed 16-Feb-2014 Pelvic (Non ) Result: Comments: See Note; NOTES: [facility] Imaging Services [address] [place] [address] Ultrasound Report MR#: [id number] Acct: [id number] Name: TIA SERVIN Rep #: [id number] : 1945 F 68 From: Misbah Elaine DO PCP: Katelyn Dempsey MD Status: REG CLI Study: Pelvic (Non ) Date of Exam: 02/16/14 Exam# [id number] Ordering Dr: Katelyn Dempsey MD STUD Y: [...] at 4:59 EST Tel , Service support [phone], CC: Katelyn Dempsey MD Medical Administrative Technician: Signed Immunization Name Dates Details Pneumococcal conjugate [...] Most Recent 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, 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, Status: Active No Drug Use Status: Active Tobacco Use Comments: Remotely quit tobacco use 1987 Status: Active Vital Signs Date Test Result Details 63-Vuq-468117:59 Temperature 97.3 f Comments: Method: Temporal Pulse [...] kg/m2 Body Surface Area Calculated 2.03 m2 79-Hui-765233:11 Temperature 97.3 f Pulse 87 /min Comments: [...] Area Calculated 2.07 m2 :35 Comments: has acylics Temperature 97.1 f Comments: Method: Temporal Pulse [...] 240 lb Results Date Description Value Details 3-Qbg-429612:11 CBC W/Diff, Automated Comments: [facility] [address] [place], [place], [id number] Absolute Lymph 1.06 {X10_3/ul} (Normal) Range: 0.83-4.51 [...] 4.2-5.4 WBC 6.4 K/mm3 (Normal) Range: 4.4-11.0 4-Rsc-084902:11 Comprehensive Metabolic Profil Comments: [facility] [address] [place], [address] GAP 14 (Normal) Range: 5-15 CO2 24.0 [...] A.D.A. criteria.Please note revised GLUCOSE reference range ggwfsioqv06/02/2018. 82-Vry-800510:01 HgA1C , Office (52281) Comments: 5.8 HgA1C , Office 5.8 % (Normal) Range: 4.6 - 7.1 80-Nco-692100:00 Blood Glucose , Office (54154) Comments: 99 Blood Glucose , Office 99 (Normal) 55-Mdb-33881:19 Comprehensive Metabolic Profil Comments: [facility] [address] [place], [address] GAP 11 (Normal) Range: 5-15 CO2 26.0 [...] A.D.A. criteria.Please note revised GLUCOSE reference range giltffyeq79/02/2018. :19 Hemoglobin A1c Comments: [facility] [address] [place], [id number] HGB A1C 5.6 % (Normal) Range: 4.2-6.3 82-Lfc-46831:19 Thyroid Stim Hormone (TSH) Comments: [facility] [address] [place], [id number] TSH 2.33 {uIU/mL} (Normal) Range: 0.358-3.74 :19 Vitamin D,25 Hydroxy Comments: [facility] [address] [place], [id number] Vitamin D 25-OH 37.3 ng/mL (Normal) Range: 29.95-100.01 Comments: Vitamin D 25(OH) Status Range Deficiency <20 ng/mL (50nmol/L) Insuffciency 20 - 30 ng/mL (50 - 75 nmol/L) Sufficiency 30 - 100 ng/mL (75 - 250 nmol/L) Toxicity >100 ng/mL (>250 nmol/L) 50-Kcf-964787:01 CBC W/Diff, Automated Comments: [facility] [address] [place], [address] Absolute Lymph 1.26 {X10_3/ul} (Normal) Range: 0.83-4.51 [...] 4.2-5.4 WBC 7.4 K/mm3 (Normal) Range: 4.4-11.0 13-Fer-087909:01 Comprehensive Metabolic Profil Comments: [facility] [address] [place], [place], [address] GAP 10 (Normal) Range: 5-15 CO2 25.0 [...] A.D.A. criteria.Please note revised GLUCOSE reference range kmenowxro72/02/2018. 96-Gaq-045069:34 CALCIFEDIOL (50956) Comments: PATIENT NOT FASTINGPERFORMED BY: [facility]nw[facility] [id number] Vitamin D, 25-Hydroxy 30.2 ng/mL (Normal) Range: 30.0-100.0 Comments: Vitamin D deficiency has been defined by the [place] [facility] and an Endocrine Society practice guideline as alevel of serum 25-OH vitamin D less than 20 ng/mL (1,2).The Endocrine Society went on to further define vitamin Dinsufficiency as a level between 21 and 29 ng/mL (2).1. IOM ([place] of Medicine). 2010. Dietary reference intakes for calcium and D. [place]: The National Academies Press.2. Brandon MF, Bakari BOYD, Vicente IZAGUIRRE, et al. Evaluation, treatment, and prevention of vitamin D deficiency: an Endocrine Society clinical practice guideline. JCEM. 2010; 96(7):1911-30. 25-Jul-20179:41 Comprehensive Metabolic Profil Comments: [facility] [address] [place], [place], [address] GAP 10 (Normal) Range: 5-15 CO2 24.0 [...] A.D.A. criteria.Please note revised GLUCOSE reference range bdojeuanl11/02/2018. :41 Hemoglobin A1c Comments: [facility] Xgzevyidem5[address]. [place], [place], [address] HGB A1C 5.8 % (Normal) Range: 4.2-6.3 :41 Lipid Profile Comments: [facility] Nvplnxfdfg2581 [address]. [place], [place], [address] VLDL 45 mg/dL (Abnormal) Range: 5-40 LDL [...] 200-240 mg/dL Borderline >240 mg/dL High Risk 25-Jul-20179:41 Microalb:Creat Ratio,Random UR Comments: [facility] Dyirhdpjbl8979 [facility] [address]. [place], [place], [address] MALB:CREAT 14.8 {mg/g_CRE} (Normal) MICROALBUMIN,UR 46.0 mg/L (Normal) UR CREAT 310.00 mg/dL (Normal) 25-Jul-20179:41 Thyroid Stim Hormone (TSH) Comments: [facility] Bjcbdseqht57[address] [place], [place], [address] TSH 1.96 {uIU/mL} (Normal) Range: 0.358-3.74 67-Aib-609152:18 CBC W/Diff, Automated Comments: [facility] Kuiojchnsd8938 [facility] [address]. [place], [place], [address] Absolute Lymph 1.08 {X10_3/ul} (Normal) Range: 0.83-4.51 [...] 4.2-5.4 WBC 4.7 K/mm3 (Normal) Range: 4.4-11.0 26-Tdw-705173:18 Comprehensive Metabolic Profil Comments: [facility] Mzchfdzttl9450 [place], [address] GAP 7 (Normal) Range: 5-15 CO2 26.0 mmol/L (Normal) Range: 21.0-32.0 CL 107 mmol/L (Normal) Range: 98-107 K 4.8 mmol/L (Normal) Range: 3.5-5.1 NA 140 mmol/L (Normal) Range: 136-145 T BILI 0.60 mg/dL (Normal) Range: 0.20-1.00 ALT 16 U/L (Normal) Range: 13-56 Comments: Please note revised ALT reference range epidhicmg90/28/2018. ALK P 63 U/L (Normal) Range: 45-117 [...] A.D.A. criteria.Please note revised GLUCOSE reference range yhfxoeloq00/02/2018. 9-Htj-912500:40 CALCIFEDIOL (05643) Comments: PATIENT NOT FASTINGPERFORMED BY: [facility]CoOver[facility] CenterGhgxvx9463 [facility] [id number] Vitamin D, 25-Hydroxy 31.0 ng/mL (Normal) Range: 30.0-100.0 Comments: Vitamin D deficiency has been defined by the [place] ofMedicine and an Endocrine Society practice guideline as alevel of serum 25-OH vitamin D less than 20 ng/mL (1,2).The Endocrine Society went on to further define vitamin Dinsufficiency as a level between 21 and 29 ng/mL (2).1. IOM ([place] of Medicine). 2010. Dietary reference intakes for calcium and D. [place]: The National Academies Press.2. Brandon MF, Bakari NC, Vicente IZAGUIRRE, et al. Evaluation, treatment, and prevention of vitamin D deficiency: an Endocrine Society clinical practice guideline. JCEM. 2010; 96(7):1911-30. 1-Yop-099295:20 Crystals, Body Fluid Comments: [facility] Kyelvtwmnw0343 [place], [address] PATH REV Reviewed (Normal) Comments: Negative for malignant cells and crystals.Acute inflammation.Clinical correlation necessary.Jacinto Herrera M.D. 03/28/17 AMENDED REPORT 03/28/17 1357 PATH REV previously reported as: Will follow SOURCE/BF SYNOVIAL (Normal) CRYSTALS/BF SEE PATH REV (Normal) 3-Ikb-076638:20 Culture, Body Fluid Comments: [facility] [address] [place], [place], [address] ; dr redd ALASF See Note (Normal) [...] DAYS Cult, AnaerobicNo growth in 5 days. 9-Hjm-919767:20 Synovial Fluid RBC, WBC AND Comments: [facility] [address] [place], [place], [address] ; dr rainey Diff PATH COM/SYFL May [...] Comments: YELLOW/RED SYNOVIAL SOURCE RIGHT KNEE (Normal) 88-Wpr-24847:53 CBC W/Diff, Comments: PLEASE FAX RESULTS TO [id number] PT REQUEST.[facility] [address]mqj[address] [facility] Hospitale[address] [place], [place], [address] ; dr barba Automated Absolute Lymph 0.89 [...] 4.2-5.4 WBC 6.3 K/mm3 (Normal) Range: 4.4-11.0 70-Pka-49377:53 Comprehensive Comments: PLEASE FAX RESULTS TO [id number] PT REQUEST.[facility] Dcvapsxufi4632 [facility] [address]. [place], [place], [address] Metabolic Profil GAP 10 (Normal) Range: 5-15 [...] Hemoglobin A1c Comments: PLEASE FAX RESULTS TO [id number] PT REQUEST.[facility] Pcwxxntwmh4339 [facility] [address]. [place], [place], [address] HGB A1C 6.9 % (Abnormal) Range: 4.2-6.3 :53 Lipid Profile Comments: PLEASE FAX RESULTS TO [id number] PT REQUEST.[facility] [address] [place], [place], [address] VLDL 29 mg/dL (Normal) Range: 5-40 LDL [...] 200-240 mg/dL Borderline >240 mg/dL High Risk 70-Jrg-40005:53 Thyroid Stim Comments: PLEASE FAX RESULTS TO [id number] PT REQUEST.[facility] Gmhchgsztp[address]180 [facility] Jcaques. [place], [place], [address] Hormone (TSH) TSH 1.69 {uIU/mL} (Normal) Range: 0.358-3.74 14-Mrz-133491:59 HgA1C , Office (61813) HgA1C , Office 6.4 % (Normal) Range: 4.6 - 7.1 86-Zuq-419897:59 Blood Glucose , Office (02666) Blood Glucose , Office 213 (Normal) 45-Vjv-667434:27 CBC W/Diff, Automated Comments: SHARE RESULTS WITH DERRICK FOR [facility] Nhdxfqkrbp5264 [address] [place], [place], [address] Absolute Lymph 1.20 {X10_3/ul} (Normal) Range: 0.83-4.51 [...] 4.2-5.4 WBC 6.1 K/mm3 (Normal) Range: 4.4-11.0 23-Ile-052786:27 Comprehensive Metabolic Profil Comments: SHARE RESULTS WITH DERRICK FOR [facility] Foghvylhgd3739 [address] [place], [place], [address] GAP 11 (Normal) Range: 5-15 CO2 23.0 [...] 200 mg/dLsuggests DIABETES MELLITUS per A.D.A. criteria. 46-Uor-822781:05 Comprehensive Metabolic Profil Comments: [facility] Rxaccahwlc7726 [place], [address] GAP 9 (Normal) Range: 5-15 CO2 24.0 [...] 126 mg/dLsuggests DIABETES MELLITUS per A.D.A. criteria. 55-Mgy-353486:05 Hemoglobin A1c Comments: [facility] [address] [place], [address] HGB A1C 6.7 % (Abnormal) Range: 4.2-6.3 49-Zgu-738098:05 Thyroid Stim Hormone (TSH) Comments: [facility] K[address] [place], [address] TSH 3.02 {uIU/mL} (Normal) Range: 0.358-3.74 15-Lld-335114:05 Vitamin D,25 Hydroxy Comments: [facility] [address] [place], [address] Vitamin D 25-OH 23.5 ng/mL (Normal) Comments: Vitamin D 25(OH) Status Range Deficiency <20 ng/mL (50nmol/L) Insuffciency 20 - 30 ng/mL (50 - 75 nmol/L) Sufficiency 30 - 100 ng/mL (75 - 250 nmol/L) Toxicity >100 ng/mL (>250 nmol/L) 81-Ttj-089018:56 HgA1C , Office (40209) HgA1C , Office 6.3 % (Normal) Range: 4.6 - 7.1 :56 Blood Glucose , Office (56350) Blood Glucose , Office 194 (Normal) 57-Ohg-507832:37 CBC W/Diff, Automated Comments: [facility] X[address] [place], [address] ; another doc Absolute Lymph 1.29 {X10_3/ul} [...] 4.2-5.4 WBC 7.6 K/mm3 (Normal) Range: 4.4-11.0 22-Cmu-858241:37 Comprehensive Metabolic Profil Comments: [facility] Tmygweaycq16[address] [place], [address] GAP 7 (Normal) Range: 5-15 CO2 29.0 [...] 126 mg/dLsuggests DIABETES MELLITUS per A.D.A. criteria. 67-Ecp-79638:37 Basic Metabolic Profile Comments: Order Date: 12/03/15DRKARLA KEE LIVER,LIPIDDR.DERRICK KEE BMPInterface Comments: 12 hours fasting, may have water.Order Date: 12/03/15[facility] Pgcdzknypg16[address] [place], [place], [address] (BMP) GAP 4 (Abnormal) Range: 5-15 CO2 [...] criteria. :37 Lipid Profile Comments: Order Date: 12/03/15 WANTS LIVER,LIPIDDR.FELPIENATHAN WANTS BMPInterface Comments: 12 hours fasting, may have water.Order Date: 12/03/15[facility] Sbitikhryj4598 [address] [place], [place], [address] VLDL 18 mg/dL (Normal) Range: 5-40 LDL [...] Risk :37 Liver Profile Comments: Order Date: 12/03/15DR.NEWTON MONROYS LIVER,LIPIDDR.EDWIGEHUNATHAN WANTS BMPInterface Comments: 12 hours fasting, may have water.Order Date: 12/03/15[facility] Hromwnsnnv79[address] [place], [place], [address] D BILI 0.11 mg/dL (Normal) Range: 0.00-0.30 T BILI 0.40 mg/dL (Normal) Range: 0.20-1.00 ALT 14 U/L (Normal) Range: 12-78 ALK P 47 U/L (Normal) Range: 45-117 AST 12 U/L (Abnormal) Range: 15-37 GLOB 3.3 g/dL (Normal) Range: 2.3-3.5 ALB 2.8 g/dL (Abnormal) Range: 3.4-5.0 T PROT 6.1 g/dL (Abnormal) Range: 6.4-8.2 :40 HgA1C , Office (73653) HgA1C , Office 6.1 % (Normal) Range: 4.6 - 7.1 :40 Blood Glucose , Office (45968) Blood Glucose , Office 208 (Normal) :45 Culture, Body Fluid Comments: [facility] Gmorayievr[address] [place], [address] CUBF See Note (Normal) Comments: List Antibiotics Last 48 Hours? UNKList Antibiotics to be Started? UNKComments: SYNOVIAL FLUID LEFT KNEE..Gram StainCentrifuged Specimen? Culture performed on centrifuged specimen Gram Stain 3+ Red Blood Cells 1+ White Blood Cells No organisms seen Body Fluid CultNO GROWTH IN 14 DAYS Cult, AnaerobicNo growth in 5 days. :45 Synovial Fluid RBC, WBC AND Comments: [facility] Ckmslecenv036[address] [place], [address] Diff PATH COM/SYFL May follow (Normal) MONO [...] Yellow (Normal) SYNOVIAL SOURCE LEFT KNEE (Normal) 76-Ykp-082175:21 CBC W/Diff, Automated Comments: [facility] Cobrcolhov79[address] [place], [place], [address] Absolute Lymph 1.21 {X10_3/ul} (Normal) Range: 0.83-4.51 [...] 4.2-5.4 WBC 6.5 K/mm3 (Normal) Range: 4.4-11.0 :21 Comprehensive Metabolic Profil Comments: [facility] Scxlukmtps2568 [address] [place], [place], [address] GAP 8 (Normal) Range: 5-15 CO2 23.0 [...] <126 mg/dLsuggests IMPAIRED HOMEOSTASIS per A.D.A. criteria. 5-Fdt-126297:31 CBC W/Diff, Automated Comments: [facility] Ccztnqecvd9[address]. [place], [place], [address] Absolute Lymph 1.21 {X10_3/ul} (Normal) Range: 0.83-4.51 [...] 4.2-5.4 WBC 8.5 K/mm3 (Normal) Range: 4.4-11.0 8-Uun-272689:31 Comprehensive Metabolic Profil Comments: [facility] Npttgqknxa38[address] [place] [place], [place], [address] GAP 9 (Normal) Range: 5-15 CO2 27.0 [...] 126 mg/dLsuggests DIABETES MELLITUS per A.D.A. criteria. 1-Pqa-112713:49 Blood Glucose , Office (31131) Blood Glucose , Office 219 (Normal) 5-Gvz-936520:49 HgA1C , Office (70912) HgA1C , Office 7.5 % (Abnormal) Range: 4.6 - 7.1 30-Htd-693064:27 C-Peptide Comments: [facility] (refer to report for specific site)refer to report for address and phone number C PEPTIDE 58612 7.0 ng/mL (Abnormal) Range: 1.1-4.4 Comments: C-Peptide reference interval is for fasting patients.Performed at: [address] [id number] Director: Lex Lai PhD, Phone: [phone] :[phone] CBC W/Diff, Automated Comments: [facility] Ixurzfayvu1849 [address] [facility], [address] ANISO 1+ (Normal) Absolute Lymph [...] 4.2-5.4 WBC 8.3 K/mm3 (Normal) Range: 4.4-11.0 20-Uet-316664:27 Comprehensive Metabolic Profil Comments: [facility] Lusgmgafix4574 [place], [address] GAP 9 (Normal) Range: 5-15 CO2 25.0 [...] per A.D.A. criteria. :27 Hemoglobin A1c Comments: [facility] [address]hshcph[address] [place], [address] HGB A1C 7.5 % (Abnormal) Range: 4.2-6.3 :27 Microalb:Creat Ratio,Random UR Comments: [facility] Z[address]wt[address]urrtq[address] [place], [address] MALB:CREAT 6.7 {mg/g_CRE} (Normal) MICROALBUMIN,UR 9.6 mg/L (Normal) UR CREAT 144.00 mg/dL (Normal) :27 Miscellaneous Lab Procedure Comments: Test(s) Ordered: ISLET CELL ANTIBODY [id number] SERUM/[facility] Hnhkmhstbx6094 [place], [address] MISC Comments: TEST RESULT UNITS REFERENCE INTERVALAntipancreatic Islet Cells Negative Neg:<1:1 TEST LAB (Normal) ING PERFORMED AT [facility]. ORIGINAL REPORT ON FILE IN LAB CONTAINS ADDITIONAL TEST SITE INFORMATION. TEST :25 HAPTOGLOBIN (53221) Comments: PATIENT NOT FASTINGPERFORMED BY: [facility] Gladwin6370 [facility] [id number] Haptoglobin 259 mg/dL (Abnormal) Range: 34-200 :25 SPEP (62043) Comments: PATIENT NOT FASTINGPERFORMED BY: [facility] Gladwin6370 [facility] [id number] Please note: SPRCS (Normal) Comments: Protein electrophoresis scan will follow via computer, mail, orcourier delivery. A/G Ratio 0.9 (Normal) Range: 0.7-1.7 Globulin, Total 3.4 g/dL (Normal) Range: 2.2-3.9 M-Anam Not Observed g/dL (Normal) Gamma Globulin 0.8 g/dL (Normal) Range: 0.4-1.8 Beta Globulin 1.2 g/dL (Normal) Range: 0.7-1.3 Vcgqe-6-Myqgfvfg 1.1 g/dL (Abnormal) Range: 0.4-1.0 Etcym-7-Cwthamtc 0.3 g/dL (Normal) Range: 0.0-0.4 Albumin 3.2 g/dL (Normal) Range: 2.9-4.4 Protein, Total, Serum 6.6 g/dL (Normal) Range: 6.0-8.5 :25 UPEP (86294) Comments: PATIENT NOT FASTINGPERFORMED BY: [facility] [address]6370 [facility] [id number] Please note: SPRCS (Normal) Comments: Protein electrophoresis scan will follow via computer, mail, orcourier delivery. M-Anam, % Not Observed % (Normal) Gamma Globulin, U 10.2 % (Normal) Beta Globulin, U 22.4 % (Normal) Acjnd-2-Arovydfr, U 9.8 % (Normal) Rnfkt-6-Vrvvkhif, U 1.8 % (Normal) Albumin, U 55.8 % (Normal) Protein,Total,Urine 42.4 mg/dL (Normal) 00-Wlo-121852:25 RETICULOCYTE COUNT [facility] Comments: PATIENT NOT FASTINGPERFORMED BY: [facility]CoOver[facility] CenterHjught9215 [facility] [id number] (61233) Reticulocyte Count 2.0 % (Normal) Range: 0.6-2.6 62-Snp-192546:25 IRON BINDING CAPACITY (TIBC) Comments: PATIENT NOT FASTINGPERFORMED BY: [facility] CenterPjlonm6689 [facility] [id number] (67310) Iron Saturation 4 % (Abnormal) Range: 15-55 Iron, Serum 14 ug/dL (Abnormal) Range: 27-139 UIBC 372 ug/dL (Abnormal) Range: 118-369 Iron Bind.Cap.(TIBC) 386 ug/dL (Normal) Range: 250-450 :25 FERRITIN (89317) Comments: PATIENT NOT FASTINGPERFORMED BY: [facility] CenterWyxhrz1556 [facility] [id number] Ferritin, Serum 19 ng/mL (Normal) Range: 15-150 35-Bcl-440738:25 CBC, PLATELETS & AUT DIFF Comments: PATIENT NOT FASTINGPERFORMED BY: [facility] Qtqvoi5103 [facility] [id number] Information: [id number] (25840) Immature Grans (Abs) 0.0 {x10E3/uL} (Normal) Range: [...] (Normal) Range: 3.4-10.8 :32 HgA1C , Office (90886) HgA1C , Office 8.2 % (Abnormal) Range: 4.6 - 7.1 :16 CBC W/Diff, Automated Comments: DR.N THOMAS ORDERED TSH LIPID VITD CBCD B12 FOLOTES CMP MIACREDRKARLA ORDERED LIPID LIVERDR.MARYAM ORDERED CMP [facility]CDWM[facility] Hxwfmrlxgv7399 [place], [place], [phone] OVALOCYTE 1+ (Normal) BASO STIP RARE (Normal) [...] Patient Taking Vitamins or Folic Acid Supplements? [facility] [place], [address] GAP 9 (Normal) Range: 5-15 CO2 26.0 [...] Patient Taking Vitamins or Folic Acid Supplements? [facility]1761 [place], [address] FOLATES 11.20 ng/mL (Normal) Range: 3.1-17.5 :16 Lipid Profile Comments: DR.N THOMAS ORDERED TSH LIPID VITD CBCD B12 FOLOTES [facility] RAMESH.VICENTE ORDERED LIPID LIVERDR.MARYAM ORDERED CMP CBCDIs Patient Taking Vitamins or Folic Acid Supplements? [facility]1761 [address] [place], [place], [address] VLDL 32 mg/dL (Normal) Range: 5-40 LDL [...] ORDERED TSH LIPID VITD CBCD B12 FOLOTES [facility] LUCÍA ORDERED LIPID LIVERDR.MARYAM ORDERED [facility] CBCDTri[facility] Nzpokxrsbl9321 [address] [place], [place], [address] MALB:CREAT 7.5 {mg/g_CRE} (Normal) MICROALBUMIN,UR 10.1 mg/L (Normal) UR CREAT 135.00 mg/dL (Normal) :16 Thyroid Stim Hormone (TSH) Comments: DR.N THOMAS ORDERED TSH LIPID VITD CBCD B12 FOLOTES [facility] LUCÍA ORDERED LIPID LIVERDR.MARYAM ORDERED CMP CBCDIs Patient Taking Vitamins or Folic Acid Supplements? [facility] [place] dpgegkoc[address]68 [address] [place], [place], [address] TSH 1.90 {uIU/mL} (Normal) Range: 0.358-3.74 :16 Vitamin B12 324 pg/mL (Normal) Comments: DR.N THOMAS ORDERED TSH LIPID VITD CBCD B12 FOLOTES [facility] LUCÍA ORDERED LIPID LIVERDR.MARYAM ORDERED [facility] CBCDTri[facility] Xlyxwvjwjp8[address] [place] [place], [place], [address] Range: 211-911 :16 Vitamin D,25 Hydroxy Comments: DR.N THOMAS ORDERED TSH LIPID VITD CBCD B12 FOLOTES [facility] LUCÍA ORDERED LIPID LIVERDR.MARYAM ORDERED [facility] CBCK[facility] Rjkejuabiy8010 [place], [phone] Vitamin D 25-OH 24.7 ng/mL (Normal) Comments: Vitamin D 25(OH) Status Range Deficiency <20 ng/mL (50nmol/L) Insuffciency 20 - 30 ng/mL (50 - 75 nmol/L) Sufficiency 30 - 100 ng/mL (75 - 250 nmol/L) Toxicity >100 ng/mL (>250 nmol/L) 6-Cge-992299:25 OVA & PARASITE DIR SMEAR Comments: PATIENT NOT FASTINGPERFORMED BY: [facility] Ncmklk0486 [facility] [id number] (34894) Result 1 NOCP (Normal) Comments: No ova, cysts, or parasites seen. Ova + Parasite Exam Final report (Normal) Comments: These results were obtained using wet preparation(s) and trichromestained smear. This test does not include testing for Cryptosporidiumparvum, Cyclospora, or Microsporidia. :25 OCCULT BLOOD FECES SCREEN Comments: PATIENT NOT FASTINGPERFORMED BY: [facility] Rqlwka2678 [facility] [id number] (54791) Occult Blood, Fecal, IA Positive (Abnormal) :25 LEUKOCYTE COUNT, FECAL (06726) Comments: PATIENT NOT FASTINGPERFORMED BY: [facility]6370 [facility] [id number] Result 1 NWBC (Normal) Comments: No white blood cells seen. White Blood Cells (WBC), Final report (Normal) Stool :24 C-DIFFICILE, STOOL (40181) Comments: PATIENT NOT FASTINGPERFORMED BY: [facility]6370 [facility] [id number] Information: [id number] C difficile Toxins A+B, EIA Negative (Normal) :25 LAINE CULTURE-STOOL (68680) Comments: PATIENT NOT FASTINGPERFORMED BY: [place] [id number] [facility] [id number] Information: SRC:STL [id number] E coli Shiga Toxin EIA Negative (Normal) Result 1 NCI (Normal) Comments: No Campylobacter species isolated. Campylobacter Culture Final report (Normal) Result 1 NSS (Normal) Comments: No Salmonella or Shigella recovered. Salmonella/Shigella Screen Final report (Normal) :22 Blood Glucose , Office (56074) Blood Glucose , Office 191 (Normal) :22 HgA1C , Office (12795) HgA1C , Office 7.4 % (Abnormal) Range: 4.6 - 7.1 :19 CBC W/Diff, Automated Comments: [facility] Djrazjvbvf13[address] [place], [address] Absolute Lymph 1.86 {X10_3/ul} (Normal) Range: 0.83-4.51 [...] 4.2-5.4 WBC 8.4 K/mm3 (Normal) Range: 4.4-11.0 :19 Comprehensive Metabolic Profil Comments: [facility] Cvcprurfkj7[address] [place], [place], [address] GAP 10 (Normal) Range: 5-15 CO2 24.0 [...] 126 mg/dLsuggests DIABETES MELLITUS per A.D.A. criteria. 38-Rcs-900987:50 CALCIFEDIOL (99007) Comments: PATIENT NOT FASTINGPERFORMED BY: [facility]6370 [facility] [id number] Vitamin D, 25-Hydroxy 20.8 ng/mL (Abnormal) Range: 30.0-100.0 Comments: Vitamin D deficiency has been defined by the [place] ofMedicine and an Endocrine Society practice guideline as alevel of serum 25-OH vitamin D less than 20 ng/mL (1,2).The Endocrine Society went on to further define vitamin Dinsufficiency as a level between 21 and 29 ng/mL (2).1. IOM ([place] of Medicine). 2010. Dietary reference intakes for calcium and D. [place]: The National Academies Press.2. Brandon MF, Bakari BOYD, Vicente IZAGUIRRE, et al. Evaluation, treatment, and prevention of vitamin D deficiency: an Endocrine Society clinical practice guideline. JCEM. 2010; 96(7):1911-30. 66-Iir-713652:50 POTASSIUM SERUM (87097) Comments: PATIENT NOT FASTINGPERFORMED BY: [facility] Vhqqzd3611 [address] RoadDublin [place] [id number] Potassium, Serum 5.4 mmol/L (Abnormal) Range: 3.5-5.2 95-Udb-166270:50 MAGNESIUM (83007) Comments: PATIENT NOT FASTINGPERFORMED BY: [facility] Muwbhy0597 [address] RoadDublin [place] [id number] Magnesium, Serum 1.8 mg/dL (Normal) Range: 1.6-2.3 :50 AMMONIA (35728) Comments: PATIENT NOT FASTINGPERFORMED BY: [facility] Louis1447 [facility] [id number] BY: [facility] Ujdqyp2529 [address] RoadDublin [place] [id number] Ammonia, Plasma 40 ug/dL (Normal) Range: 19-87 43-Cju-832064:50 SPEP (44722) Comments: PATIENT NOT FASTINGPERFORMED BY: [facility] Rtfjrx0235 Forrest RoadDublin [place] [id number] Information: [id number] Please note: SPRCS (Normal) Comments: Protein electrophoresis scan will follow via computer, mail, orcourier delivery. A/G Ratio 1.2 (Normal) Range: 0.7-2.0 Globulin, Total 3.0 g/dL (Normal) Range: 2.0-4.5 M-Anam Comment: g/dL (Normal) Comments: [facility] Gamma Globulin 0.6 g/dL (Normal) Range: 0.5-1.6 Beta Globulin 1.0 g/dL (Normal) Range: 0.6-1.3 Waexv-7-Lzgtkzvl 1.1 g/dL (Normal) Range: 0.4-1.2 Kpvgo-5-Tahqloxn 0.3 g/dL (Normal) Range: 0.1-0.4 Albumin 3.5 g/dL (Normal) Range: 3.2-5.6 Protein, Total, Serum 6.5 g/dL (Normal) Range: 6.0-8.5 :54 CREATININE CLEARANCE Comments: PATIENT NOT FASTINGPERFORMED BY: MARJAN CarestreamOverlook Medical CenterLarzno5349 [facility] [id number] Information: [id number] START 07/18/15@630A M FINISH 07/18@7AM (30253) Creatinine Clearance 57 mL/min (Abnormal) Range: 88-128 [...] Creatinine, Serum 0.75 mg/dL (Normal) Range: 0.57-1.00 95-Dxi-090831:54 Total Protein,24 Hour Urine Comments: PATIENT NOT FASTINGPERFORMED BY: MARJAN CarestreamOverlook Medical CenterIljxuh4021 [facility] [id number]; has fu 07-21 (71660) Prot,24hr calculated 354.6 {mg/24_hr} (Abnormal) Range: 30.0-150.0 Protein,Total,Urine 39.4 mg/dL (Abnormal) Range: 0.0-15.0 Comments: Effective August 02, 2015 the reference interval for Protein, Total, Urine will be changing to: Not Estab. 14-Usu-879926:45 URINE VMA (34897) Comments: 24 hour urine; PATIENT NOT FASTINGPERFORMED BY: [place] [address] [facility] [id number] VMA, Urine, 24hr 2.3 {mg/24_hr} (Normal) Range: 0.0-7.5 VMA, Urine 3.3 mg/L (Normal) :50 RENIN (35700) Comments: PATIENT NOT FASTINGPERFORMED BY: Carestream[address] [id number] BY: [facility] Jswnhl5787 [facility] [id number] Information: [id number] Renin Activity, Plasma 1.17 {ng/mL/hr} (Normal) Comments: Adult Normal Salt Intake: Upright 1.31 - 3.95 Supine 0.15 - 2. 33 . Salt Excretion (Na mEq/24 hr): Na= 0 - 30 8.82 - 23.86 Na= 30 - 75 4.09 - 7.73 Na= 75 - 150 1.44 - 2.80 Na= >150 0.39 - 1.31 :45 METANEPHRINES - URINE (77002) Comments: PATIENT NOT FASTINGPERFORMED BY: WedWu [address] [id number] Metanephrine, U,24hr 50 {ug/24_hr} (Normal) Range: 45-290 Comments: (Hypertensive) >17 years 11 months: 35 - 460 Metanephrine, Ur 71 ug/L (Normal) Normetanephr.,U,24h 319 {ug/24_hr} (Normal) Range: 82-500 Comments: (Hypertensive) >17 years 11 months: 110 - 1050 Normetanephrine, Ur 455 ug/L (Normal) :45 CATECHOLAMINES TOTAL, URINE Comments: PATIENT NOT FASTINGPERFORMED BY: Carestream[address] [id number] Information: SRC:BATSHEVA [id number] START 07/20@9AM FI NANCY (75204) Dopamine, Ur, 24hr 90 {ug/24_hr} (Normal) Range: 0-510 Dopamine, Urine 128 ug/L (Normal) Norepinephrine,U,24h 48 {ug/24_hr} (Normal) Range: 0-135 Norepinephrine, Ur 68 ug/L (Normal) Epinephrine, U, 24hr 1 {ug/24_hr} (Normal) Range: 0-20 Epinephrine, Urine 2 ug/L (Normal) :50 HgA1C , Office (14119) HgA1C , Office 7.7 % (Abnormal) Range: 4.6 - 7.1 :20 CBC W/Diff, Automated Comments: [facility] [address] [place], [place], [phone] Absolute Lymph 1.40 {X10_3/ul} (Normal) Range: 0.83-4.51 [...] Range: 4.4-11.0 :20 Comprehensive Metabolic Profil Comments: [facility] [address] [place], [place], [address] GAP 8 (Normal) Range: 5-15 CO2 26.0 [...] per A.D.A. criteria. :49 HgA1C , Office (38572) HgA1C , Office 6.6 % (Normal) Range: 4.6 - 7.1 :04 CBC W/Diff, Automated Comments: [facility] [address] [place], [place], [address] Absolute Lymph 1.54 {X10_3/ul} (Normal) Range: 0.83-4.51 [...] 4.2-5.4 WBC 9.0 K/mm3 (Normal) Range: 4.4-11.0 0-Kxq-605585:04 Comprehensive Metabolic Profil Comments: [facility] [address] [place], [place], [address] GAP 11 (Normal) Range: 5-15 CO2 24.0 [...] <126 mg/dLsuggests IMPAIRED HOMEOSTASIS per A.D.A. criteria. 09-Mlr-61814:10 Basic Metabolic Profile (BMP) Comments: Serial Specimen #1, #2 or #3? 1'TROP' Serial specimen #1, #2, #3, or #4: 1[facility] [address] [place], [place], [address] GAP 9 (Normal) Range: 5-15 CO2 26.0 [...] A.D.A. criteria. :10 Carboxyhemoglobin Frac (CO) Comments: [facility] [address] [place], [place], [address] COHb 1.3 % (Normal) Range: 0.0-1.5 Comments: * NON-SMOKER RANGE 1.6 - 5.0% * LIGHT SMOKER RANGE 5.1 - 9.0% * HEAVY SMOKER RANGE :10 CBC W/Diff, Automated Comments: [facility] [address] [facility] [address] [place], [place], [address] Absolute Lymph 0.87 {X10_3/ul} (Normal) Range: 0.83-4.51 [...] Serial specimen #1, #2, #3, or #4: [address] [place] [address] [facility] [address] [place], [place], [address] CKRI 1.9 % (Abnormal) Range: 0.0-1.4 Comments: RELATIVE INDEX >1.5% IS PRESUMPTIVELY POSITIVE CPKMB 1.0 ng/mL (Normal) Range: 0.0-5.0 Comments: CK-MB and RI Interpretation MB Relative Index Non-AMI <or= 5 NA Indeterminate > 5 <or= 4 AMI > 5 > 4 CPK TOTAL 53 U/L (Normal) Range: 26-192 49-Qvo-00049:10 Troponin-I Comments: Serial Specimen #1, #2 or #3? 1'TROP' Serial specimen #1, #2, #3, or #4: [address] [place] [address] [place] [address], [address] TROPONIN-I 0.03 ng/mL (Normal) Comments: TROPONIN-I EXPECTED VALUES <0.05 NEGATIVE 0.06 - 0.59 AT RISK OF DE > OR = 0.60 SUGGEST DE 5-Woo-815184:28 CBC W/Diff, Automated Comments: Test performed at:[facility] [address] [place] [address] Absolute Lymph 1.31 {X10_3/ul} (Normal) Range: [...] 4.2-5.4 WBC 6.4 K/mm3 (Normal) Range: 4.4-11.0 6-Wrg-698460:28 Comprehensive Metabolic Profil Comments: Test performed at:[facility] [address] [place], [place] [address] GAP 7 (Normal) Range: 5-15 CO2 30.0 [...] Comments: Please note revised CREATININE reference range oolqqwjba33/22/2015. BUN 14 mg/dL (Normal) Range: 7-18 GLU 145 mg/dL (Abnormal) Range: 70-110 Comments: Fasting Glucose result greater than or equal to 126 mg/dLsuggests DIABETES MELLITUS per A.D.A. criteria. :17 HgA1C , Office (73965) HgA1C , Office 6.2 % (Normal) Range: 4.6 - 7.1 :34 CBC W/Diff, Automated Comments: Test performed at:[facility] [address] [place], [place] [address] Absolute Lymph 0.90 {X10_3/ul} (Normal) Range: 0.83-4.51 [...] :34 Comprehensive Metabolic Profil Comments: Test performed at:[facility] [address] [facility] [place] [address] GAP 7 (Normal) Range: 5-15 [...] criteria. :34 Lipid Profile Comments: Test performed at:[facility] [address] [facility] [place] [address] VLDL 33 mg/dL (Normal) Range: 5-40 LDL [...] 200-240 mg/dL Borderline >240 mg/dL High Risk 3-Zns-906103:34 Thyroid Stim Hormone (TSH) Comments: Test performed at:[facility] [address] [place] [address] TSH 2.56 {uIU/mL} (Normal) Range: 0.358-3.74 68-Cdu-299335:02 CBC W/Diff, Automated Comments: Test performed at:[facility] [address] [place] [address] Absolute Lymph 1.28 {X10_3/ul} (Normal) Range: [...] :02 Comprehensive Metabolic Profil Comments: Test performed at:[facility] [address] [place] [address] GAP 9 (Normal) Range: 5-15 CO2 28.0 [...] per A.D.A. criteria. :47 HgA1C , Office (04028) HgA1C , Office 5.7 % (Normal) Range: 4.6 - 7.1 :47 Blood Glucose , Office (42103) Blood Glucose , Office 132 (Normal) :39 CBC W/Diff, Automated Comments: Test performed at:[facility] [address] [facility] [place] [address] Absolute Lymph 1.14 {X10_3/ul} (Normal) [...] 4.2-5.4 WBC 6.0 K/mm3 (Normal) Range: 4.4-11.0 :39 Comprehensive Metabolic Profil Comments: Test performed at:[facility] [address] [place] [address] GAP 7 (Normal) Range: 5-15 CO2 27.0 [...] 7-18 GLU 100 mg/dL (Normal) Range: 70-110 0-Npx-438774:38 TSH (08670) Comments: PATIENT NOT FASTINGPERFORMED BY: [facility] DataGila [facility] Medical CenterFlumlz9890 [facility] [id number] TSH 4.120 {uIU/mL} (Normal) Range: 0.450-4.500 0-Tid-020185:11 URINE LAINE CULTURE-IDENTIFICATN Comments: PATIENT NOT FASTINGPERFORMED BY: [facility] DataOverlook Medical CenterDniddg7189 [facility] [id number] (29002) Antimicrobial MIHEAD (Normal) Comments: S = Susceptible; [...] primarily for treating urinary tract infections. (CLSI, [id number],2009) Result 1 ECV (Abnormal) Comments: Escherichia coli, identified by an automated biochemical system.1,000 Colonies/mLProteus mirabilis/penneri1,000 Colonies/mL Urine Final report Culture,Comprehensive (Abnormal) 3-Pkp-720081:11 URINALYSIS (42008) Comments: PATIENT NOT FASTINGPERFORMED BY: [employer] Mejgoj6919 [facility] [id number] Information: [id number] Microscopic Examination MICNIP (Normal) Comments: Microscopic not indicated and not performed. Nitrite, Urine Negative (Normal) Urobilinogen,Semi-Qn 0.2 mg/dL (Normal) Range: 0.0-1.9 Bilirubin Negative (Normal) Occult Blood Negative (Normal) Ketones Negative (Normal) Glucose Negative (Normal) Protein Negative (Normal) WBC Esterase Negative (Normal) Appearance Clear (Normal) Urine-Color Yellow (Normal) pH 6.0 (Normal) Range: 5.0-7.5 Specific [place] 1.021 (Normal) Range: 1.005-1.030 2-Iry-881599:38 CBC, Platelets & Auto Diff Comments: PATIENT NOT FASTINGPERFORMED BY: [facility] [place]6370 [facility] [id number] Information: [id number] (46861) Immature Grans (Abs) 0.0 {x10E3/uL} (Normal) Range: [...] 3.77-5.28 WBC 6.5 {x10E3/uL} (Normal) Range: 3.4-10.8 3-Yrd-725041:38 Lipase (49278) Comments: PATIENT NOT FASTINGPERFORMED BY: [employer] Xhbxku9416 [facility] [id number] Lipase, Serum 19 U/L (Normal) Range: 0-59 0-Qna-795449:38 Amylase (49763) Comments: PATIENT NOT FASTINGPERFORMED BY: [facility] [employer] [facility] [id number] Amylase, Serum 32 U/L (Normal) Range: 31-124 4-Oyb-794900:38 Metabolic Panel, Comprehensive Comments: PATIENT NOT FASTINGPERFORMED BY: [facility] Cuxncl4850 [facility] [id number] (66321) ALT (SGPT) 17 [iU]/L (Normal) Range: 0-32 [...] (Abnormal) Range: 65-99 :28 HgA1C , Office (13685) HgA1C , Office 7.9 % (Abnormal) Range: 4.6 - 7.1 :28 Blood Glucose , Office (31375) Blood Glucose , Office 170 (Normal) :05 HgA1C , Office (72216) HgA1C , Office 7.5 % (Abnormal) Range: 4.6 - 7.1 :05 Blood Glucose , Office (81114) Blood Glucose , Office 267 (Normal) :19 CBCD Comments: DR FRANCISCO ORDERED CMP CBCDDR BONEZZI ORDERED CMP CBCD ALC 0.86 {X10_3/ul} (Normal) [...] 4.2-5.4 WBC 6.4 K/mm3 (Normal) Range: 4.4-11.0 8-Kco-972333:19 CMP Comments: DR FRANCISCO ORDERED CMP CBCDDR [...] CBCD Range: 0.358-3.74 :03 HgA1C , Office (50553) HgA1C , Office 9.1 % (Abnormal) Range: 4.6 - 7.1 :03 Blood Glucose , Office (98453) Blood Glucose , Office 136 (Normal) 62-Gll-965267:22 Blood Glucose , Office (04983) Blood Glucose , Office 204 (Normal) 30-Ujt-421206:21 HgA1C , Office (55977) HgA1C , Office 7.3 % (Abnormal) Range: 4.6 - 7.1 :45 HgA1C , Office (09913) HgA1C , Office 7.3 % (Abnormal) Range: 4.6 - 7.1 :45 Blood Glucose , Office (73667) Blood Glucose , Office 176 (Normal) Comments: [...] 4.2-5.4 WBC 6.0 K/mm3 (Normal) Range: 4.4-11.0 46-Gge-975089:26 CMP GAP 8 (Normal) Range: 5-15 CO2 [...] per A.D.A. criteria. :33 HgA1C , Office (24597) HgA1C , Office 7.1 % (Normal) Range: 4.6 - 7.1 :33 Blood Glucose , Office (19251) Blood Glucose , Office 127 (Normal) 12-Etw-048145:40 CBC With Differential/Platelet Comments: PERFORMED BY: [facility] [place]6370 [facility] [id number] Immature Grans (Abs) 0.0 {x10E3/uL} (Normal) Range: [...] 3.77-5.28 WBC 6.2 {x10E3/uL} (Normal) Range: 4.0-10.5 64-Zdl-057513:40 Comp. Metabolic Panel (14) Comments: PERFORMED BY: [facility] [place]6370 [facility] [id number] ALT (SGPT) 24 [iU]/L (Normal) Range: 0-32 [...] (Abnormal) TSH 3.580 {uIU/mL} Comments: PERFORMED BY: [facility] Lhvpol6826 [facility] [id number] :40 (Normal) Range: 0.450-4.500 :38 PREALBUMIN (46268) Comments: PATIENT NOT FASTINGPERFORMED BY: [facility] Nvnztr7346 [facility] [id number] Information: ADD [id number] AND DRAW FEE 99 6660 Prealbumin 21 mg/dL (Normal) Range: 20-40 :35 HgA1C , Office (87102) HgA1C , Office 7.3 % (Abnormal) Range: 4.6 - 7.1 :01 HgA1C , Office (12525) HgA1C , Office 7.4 % (Abnormal) Range: 4.6 - 7.1 :46 HgA1C , Office (68064) HgA1C , Office 7.3 % (Abnormal) Range: 4.6 - 7.1 :46 Blood Glucose , Office (81797) Blood Glucose , Office 193 (Normal) :12 HgA1C , Office (82287) HgA1C , Office 6.7 % (Normal) Range: 4.6 - 7.1 :12 Blood Glucose , Office (73289) Blood Glucose , Office 103 (Normal) 84-Wjk-069058:26 CBCMD RBCM NORM C+C {NORMAL} (Normal) PE [...] 7-18 GLU 80 mg/dL (Normal) Range: 70-110 09-Dae-856133:26 LIPID VLDL 12 mg/dL (Normal) Range: 5-40 [...] 10.9 mg/L (Normal) CREU 76.7 mg/dL (Normal) :21 HgA1C , Office (06407) HgA1C , Office 6.7 % (Normal) Range: 4.6 - 7.1 :21 Blood Glucose , Office (81269) Blood Glucose , Office 88 (Normal) 2-Evx-431421:06 CBCD SMEAR COMMENT SeeNote (Normal) Comments: Result: [...] 4.2-5.4 WBC 7.2 K/mm3 (Normal) Range: 4.4-11.0 5-Mtj-629971:06 COMP METABOLIC GAP 8 (Normal) Range: 5-15 [...] 200 mg/dLsuggests DIABETES MELLITUS per A.D.A. criteria. 3-Mcg-940036:06 FERRITIN 88 ng/mL (Normal) Range: 8-252 71-Nqh-694125:30 HgA1C , Office (74701) HgA1C , Office 8.4 % (Abnormal) Range: 4.6 - 7.1 67-Dmz-377993:30 Blood Glucose , Office (12860) Blood Glucose , Office 232 (Normal) 81-Ztj-851780:39 HgA1C , Office (48863) HgA1C , Office 8.2 % (Abnormal) Range: 4.6 - 7.1 68-Rsx-021463:39 Blood Glucose , Office (38107) Blood Glucose , Office 181 (Normal) 86-Uzk-033610:20 CBCD,SMEAR DIFF Comments: ORDERED CBCD,CMPDR.BONEZZI ORDERED CBCMD,LIPID,CMP,MICROALB RED CELL MORPH SeeNote {NORMAL} [...] 4.2-5.4 WBC 6.8 K/mm3 (Normal) Range: 4.4-11.0 10-Wfo-393391:20 COMP METABOLIC Comments: ORDERED CBCD,CMPDR.BONEZZI ORDERED CBCMD,LIPID,CMP,MICROALB [...] mg/dL suggests DIABETES MELLITUS per A.D.A. criteria. 09-Jkn-807638:20 LIPID Comments: ORDERED CBCD,CMPDR.ROSELYN ORDERED CBCMD,LIPID,CMP,MICROALB LDL [...] 200-240 mg/dL Borderline >240 mg/dL High Risk 58-Mfu-557423:04 Blood Glucose , Office (78486) Blood Glucose , Office 244 (Normal) 43-Uhw-207917:36 HgA1C , Office (22674) HgA1C , Office 7.5 % (Abnormal) Range: 4.6 - 7.1 23-Gto-487039:36 Blood Glucose , Office (65120) Blood Glucose , Office 178 (Normal) :24 HgA1C , Office (90746) HgA1C , Office 6.8 % (Normal) Range: 4.6 - 7.1 :24 Blood Glucose , Office (44245) Blood Glucose , Office 141 (Normal) Comments: [...] 4.2-5.4 WBC 5.6 K/mm3 (Normal) Range: 4.4-11.0 44-Mah-710043:58 COMP METABOLIC Comments: DR DEMPSEY ORDERED LIPID [...] mg/dL suggests DIABETES MELLITUS per A.D.A. criteria. 15-Cev-385015:58 LIPID Comments: DR DEMPSEY ORDERED LIPID DR [...] 200-240 mg/dL Borderline >240 mg/dL High Risk 24-Lfq-865908:02 HgA1C , Office (48155) HgA1C , Office 6.9 % (Normal) Range: 4.6 - 7.1 :02 Blood Glucose , Office (30422) Blood Glucose , Office 251 (Normal) 10-Byx-96749:11 CBCD SMEAR COMMENT COMMENT (Normal) Comments: 3+ [...] 126 mg/dLsuggests DIABETES MELLITUS per A.D.A. criteria. 12-Qdy-037858:54 DOT DIR SEMI-QL DOT DIRECT 52 AU/mL (Normal) 08-Ifp-391172:54 ANTI-CCP 031528 > 250 {units} Range: 0-19 (Abnormal) Comments: [...] 200 mg/dLsuggests DIABETES MELLITUS per A.D.A. criteria. 49-Yps-468460:54 COMPLETE UA BACTERIA 0 SEEN {/hpf} (Normal) [...] mm/h (Abnormal) Range: 0-30 :54 HB CORE [id number] SeeNote (Normal) Comments: Result: NegativePerformed at: - [facility] [address] [id number] Director: Yasmine Cabrera MD, Phone: [phone] at: - [facility] [id number] Director: Jovani Odom MD, Phone: [phone] :54 HBsAg 6510 HB SURF AG 6510 SeeNote (Normal) Comments: Result: Negative : HEBSAB 6395 < 0.1 (Normal) Range: 0.00-0.99 Comments: Status of Immunity Anti-HBs Level Inconsistent with Immunity 0.00 - 0.99Consistent with Immunity >0.99.An Index Value of 1.00 is equivalent to 10 mIU/mL.However the magnitude of the Index Value is notindicative of the total amount of antibody present. :54 HEP C AB 927774 <0.1 (Normal) Range: 0.0-0.9 Comments: Negative: < 0.8Indeterminate 0.8 - 0.9Positive: > 0.9.In order to reduce the incidence of a false positiveresult, the CDC recommends that all s/co ratiosbetween 1.0 and 10.9 be confirmed with additionalRIBA or PCR testing. :54 RHEUMATOID FAC 539.0 {IU/mL} (Abnormal) :54 VIT D,25 42220 27.3 ng/mL (Abnormal) Range: 32.0-100.0 Comments: Recent studies consider the lower limit of 32.0 ng/mL to gloria threshold for optimal health.Alexander MARY. J Nutr. 2005 Apr;135(2):317-22. 26-Erm-698674:30 HAND,MIN 3 VIEWS (MT) Radiology Report See Note (Normal) Comments: Exam Number: [id number] CLINICAL:This a 64-year-old female patient with history of pain. X-RAY EXAMINATION RIGHT HAND TECHNIQUE:Three views of the hand. COMPARISON:None. FINDINGS:Normal visualized carpal bones. Normal metacarpal bones. Normal visualized phalanges. Normal carpal articulations. Normal metacarpophalangeal joints. There are degenerative changesof the interphalangeal joints. There is no d emonstrated soft tissue swelling. IMPRESSION:Chronic degenerative changes, as discussed above. Reported By: VIDHYA NORRIS 65-Pwe-781003:29 HAND,MIN 3 VIEWS (MT) Radiology Report See Note (Normal) Comments: Exam Number: [id number] CLINICAL:This is a 64-year-old female patient with [...] as discussed above. Reported By: VIDHYA NORRIS 76-Wua-532558:45 Anti-dsDNA Antibodies Comments: PATIENT WAS FASTINGPERFORMED BY: [employer] [facility] [id number] BY: [facility] [id number] Anti-DNA (DS) Ab Qn 1 {IU/mL} (Normal) Range: 0-9 Comments: Negative <5Equivocal 5 - 9Positive >9 93-Dnc-592869:45 Antinuclear Antibodies Comments: PATIENT WAS FASTINGPERFORMED BY: [employer] [facility] [id number] BY: [facility] [id number] Direct DOT Direct Negative (Normal) C-Reactive Protein, 5.1 mg/L (Abnormal) Comments: PATIENT WAS FASTINGPERFORMED BY: [place] 5058370 [facility] [id number] BY: [address] [id number] :45 Quant Range: 0.0-4.9 :45 CBC With Differential/Platelet Comments: PATIENT WAS FASTINGPERFORMED BY: [place] 5058370 [facility] [id number] BY: [address] [id number] Hematology Comments: Note: (Normal) Comments: Verified by [...] >250 {units} Comments: PATIENT WAS FASTINGPERFORMED BY: [employer] [id number] BY: [address] [id number] 3:45 (Abnormal) Range: 0-19 Comments: Negative <20Weak positive 20 - 39Moderate positive 40 - 59Strong positive >59 55-Rii-181074:45 Comp. Metabolic Panel Comments: PATIENT WAS FASTINGPERFORMED BY: [employer] [address] [id number] BY: [employer] [id number] (14) Alkaline Phosphatase, S 99 [iU]/L (Normal) [...] ng/mL (Normal) Comments: PATIENT WAS FASTINGPERFORMED BY: [employer] [facility] [id number] BY: [employer] [id number] 13:45 Range: 13-150 20-Aug-2009 Haptoglobin 252 mg/dL Comments: PATIENT WAS FASTINGPERFORMED BY: [employer] [facility] [id number] BY: [facility] [id number] 13:45 (Abnormal) Range: 34-200 45-Csj-793061:45 Iron and TIBC Comments: PATIENT WAS FASTINGPERFORMED BY: [employer] [facility] [id number] BY: [facility] [id number] Iron Bind.Cap.(TIBC) 384 ug/dL (Normal) Range: 250-450 Iron Saturation 6 % (Abnormal) Range: 15-55 Iron, Serum 24 ug/dL (Abnormal) Range: 35-155 UIBC 360 ug/dL (Normal) Range: 150-375 11-Zyx-583633 LDH 190 [iU]/L (Normal) Comments: PATIENT WAS FASTINGPERFORMED BY: [employer] [facility] [id number] BY: [facility] [id number] :45 Range: 100-250 79-Rzp-882076:45 Lipid Panel With LDL/HDL Comments: PATIENT WAS FASTINGPERFORMED BY: [address] [id number] BY: [address] [id number] Ratio HDL Cholesterol 41 mg/dL (Normal) Comments: [...] 182 nmol/L Comments: PATIENT WAS FASTINGPERFORMED BY: [address] [id number] BY: [address] [id number] 3:45 Serum (Normal) Range: 73-376 Comments: The reference range for methylmalonic acid has been set at +3sd abovethe mean for healthy blood bank donors. In the clinical assessment ofpatients with megaloblastic anemias a cutoff of +3sd provides gr eaterspecificity in the diagnosis of the vitamin deficiency states,despite the sacrifice of some sensitivity. 34-Wkv-636879:45 PT and PTT Comments: PATIENT WAS FASTINGPERFORMED BY: [place] 5058370 [facility] [id number] BY: [address] [id number] aPTT 29 {sec} (Normal) Range: 24-33 Comments: This test has not been validated for monitoring unfractionated heparintherapy. aPTT-based therapeutic ranges for unfractionated heparintherapy have not been established. For general guidelines onHeparin monitoring, refer to the [facility] Directory of Services. Prothrombin Time 11.1 {sec} Range: 8.7-11.5 (Normal) INR 1.1 (Normal) Range: 0.8-1.2 Comments: Reference interval is for non-anticoagulated patients..Suggested INR therapeutic range for Vitamin Kantagonist therapy:Standard Dose (moderate intensitytherapeutic range): 2.0 - 3.0Higher intensity therapeutic range 2.5 - 3.5 20-Aug-2009 Reticulocyte Count 2.4 % (Normal) Comments: PATIENT WAS FASTINGPERFORMED BY: [facility] Shtmme3883 [facility] [place] [id number] BY: [address] [id number] 13:45 Range: 0.5-3.0 20-Aug-2009 RPR Non Reactive Comments: PATIENT WAS FASTINGPERFORMED BY: [facility] Cuklgz6974 Forrest Roadblin [place] [id number] BY: [address] [id number] 13:45 (Normal) 20-Aug-2009 Sedimentation 13 mm/h (Normal) Comments: PATIENT WAS FASTINGPERFORMED BY: [employer] Cvjjqv3305 [facility] [place] [id number] BY: [address] [id number] 13:45 Rate-Westergren Range: 0-30 20-Aug-2009 TSH 2.470 {uIU/mL} Comments: PATIENT WAS FASTINGPERFORMED BY: [employer] Xaboqv7650 [address] [facility] [id number] BY: [address] [id number] 13:45 (Normal) Range: 0.450-4.500 02-Vek-530018:45 Vitamin B12 and Folate Comments: PATIENT WAS FASTINGPERFORMED BY: [facility] Fxxzth6104 [facility] [place] [id number] BY: [address] [id number] Folate (Folic Acid), Serum 10.5 ng/mL (Normal) Comments: Indeterminate: 2.2 - 3.0Deficient: <2.2 Vitamin B12 583 pg/mL (Normal) Range: 211-946 26-Kle-400259:18 HgA1C , Office (25612) HgA1C , Office 7.3 % (Abnormal) Range: 4.6 - 7.1 19-Wap-961605:18 Blood Glucose , Office (74020) Blood Glucose , Office 167 (Normal) Plan [...] Knee pain Planned Observations Metabolic Panel, Comprehensive (98959)Indication: Rheumatoid arthritis On: 09-Exl-621728:41 Request Comments: Mar 2017 MICROALBUMIN: CREATININE RATIO (80868) AND (82303)Indication: Diabetes mellitus type II, controlled On: 9-Czk-609426:50 Request VITAMIN B12 AND FOLATES (24175)Indication: Diabetes mellitus type II, controlled On: :50 Request CALCIFEDIOL (65491)Indication: Diabetes mellitus type II, controlled On: 5-Vqz-441833:50 Request TSH (THYROID STIMULATING HORMONE) (08645)Indication: Hypothyroidism On: 6-Khg-497656:50 Request LIPID PANEL (79597)Indication: Hypercholesteremia On: 5-Sja-991159:50 Request METABOLIC PANEL, COMPREHENSIVE (55368)Indication: Diabetes mellitus type II, controlled On: 6-Gtl-933673:50 Request CBC, PLATELETS & AUT DIFF (96520)Indication: Diabetes mellitus type II, controlled On: 5-Cyp-403975:49 Request IRON (03944)Indication: Anemia On: 53-Vna-751174:05 Request Blood Glucose , Office (71916)Indication: Diabetes mellitus type II, controlled On: 89-Jmc-50761:32 Request MICROALBUMIN: CREATININE RATIO (53500) AND (61741)Indication: Diabetes mellitus type II, controlled On: 03-Ygj-889087:06 Request VITAMIN B12 AND FOLATES (91687)Indication: Vitamin D deficiency On: 72-Nbo-976179:00 Request VITAMIN D, 1, 25-DIHYDROXY (79933)Indication: Vitamin D deficiency On: 59-Qmg-396151:00 Request LIPID PANEL (91337)Indication: Hypercholesteremia On: 11-Ops-851000:00 Request METABOLIC PANEL, COMPREHENSIVE (20740)Indication: Diabetes mellitus type II, controlled On: 43-Yil-477431:00 Request CBC, PLATELETS & AUT DIFF (19050)Indication: Diabetes mellitus type II, controlled On: 47-Uej-500285:59 Request TSH (THYROID STIMULATING HORMONE) (34213)Indication: Hypothyroidism On: :59 Request POTASSIUM SERUM (77090)Indication: Hyperkalemia On: 21-Vie-600291:59 Request Comments: 2-3 weeks CALCIFIDIOL (29613) VIT D 25Indication: Vitamin D deficiency On: 41-Ytr-903866:34 Request TSH (82980)Indication: Hypothyroidism On: 63-Kir-732087:34 Request MICROALBUMIN: CREATININE RATIO (26885) AND (87448)Indication: Diabetes mellitus type II, controlled On: :34 Request URINALYSIS, W/ MICRO (51910)Indication: Diabetes mellitus type II, controlled On: :34 Request TSH (05960)Indication: Hypothyroidism On: :34 Request METABOLIC PANEL, COMPREHENSIVE (27508)Indication: Diabetes mellitus type II, controlled On: :34 Request LIPID PANEL (09716)Indication: Diabetes mellitus type II, controlled On: :34 Request CBC with auto diff (74869)Indication: Diabetes mellitus type II, controlled On: :34 Request CBC with auto diff (37697)Indication: Hypertension, benign On: 84-Sde-508210:26 Request METABOLIC PANEL, COMPREHENSIVE (15836)Indication: Hypertension, benign On: 38-Nmn-951333:26 Request LIPID PANEL ([id number])Indication: Hypertension, benign On: 15-Qie-132606:26 Request TSH ([id number])Indication: Hypothyroidism On: 97-Auw-782564:26 Request CBC WITH MANUAL DIFF ([id number])Indication: Hypertension, benign On: 95-Wce-922590:21 Request METABOLIC PANEL, COMPREHENSIVE ([id number])Indication: Hypertension, benign On: 59-Nat-484644:21 Request TSH ([id number])Indication: Hypothyroidism On: 57-Prx-654818:21 Request Methymalonic Acid, Serum ([id number])Indication: Thrombocytopenia, unspecified On: 24-Svi-06833:48 Request Vitamin B-12 (cyanocobalamin) ([id number])Indication: Thrombocytopenia, unspecified On: :48 Request CBC, Platelets & Auto Diff ([id number])Indication: Thrombocytopenia, unspecified On: 72-Hen-39029:48 Request Comments: citrate METABOLIC PANEL, COMPREHENSIVE ([id number])Indication: Hypertension, benign On: 66-Hpw-094699:59 Request CBC WITH MANUAL DIFF ([id number])Indication: Hypertension, benign On: 24-Yed-786383:59 Request TSH ([id number])Indication: Hypothyroidism On: 78-Szi-705392:29 Request METABOLIC PANEL, COMPREHENSIVE (99300)Indication: Hypertension, benign On: 11-Nns-434828:29 Request Blood Glucose , Office (93043)Indication: Diabetes mellitus type II, controlled On: 96-Kax-999313:35 Request TSH ([id number])Indication: Hypothyroidism On: 37-Zwx-852754:19 Request METABOLIC PANEL, COMPREHENSIVE ([id number])Indication: Diabetes mellitus type II, controlled On: 55-Mfu-797729:19 Request LIPID PANEL ([id number])Indication: Diabetes mellitus type II, controlled On: :19 Request Blood Glucose , Office ([id number])Indication: Diabetes mellitus type II, controlled On: 52-Tlv-063732:01 Request TSH ([id number])Indication: Thyroid disorder On: 57-Zla-316232:29 Request MICROALBUMIN: CREATININE RATIO (05705) AND ([id number])Indication: Diabetes mellitus type II, controlled On: :26 Request METABOLIC PANEL, COMPREHENSIVE (04486)Indication: Diabetes mellitus type II, controlled On: 96-Gom-906293:26 Request LIPID PANEL (50355)Indication: Diabetes mellitus type II, controlled On: 15-Sxu-173881:26 Request CBC WITH MANUAL DIFF ([id number])Indication: Diabetes mellitus type II, controlled On: 34-Xhh-576635:26 Request CBC WITH MANUAL DIFF ([id number])Indication: Diabetes mellitus type II, controlled On: 34-Jdq-190312:52 Request MICROALBUMIN: CREATININE RATIO (90439) AND ([id number])Indication: Diabetes mellitus type II, controlled On: 65-Sfo-106586:29 Request METABOLIC PANEL, COMPREHENSIVE ([id number])Indication: Diabetes mellitus type II, controlled On: 39-Epg-727130:29 Request LIPID PANEL ([id number])Indication: Diabetes mellitus type II, controlled On: 27-Dhj-046585:29 Request CBC WITH MANUAL DIFF ([id number])Indication: Diabetes mellitus type II, controlled On: 04-Xno-691571:29 Request FERRITIN ([id number])Indication: Anemia On: 0-Hwb-518127:26 Request CBC with manual diff ([id number])Indication: Anemia On: 29-May-20119:12 Request HgA1C , Office (03223)Indication: Diabetes mellitus type II, controlled On: 79-Xan-686623:04 Request METABOLIC PANEL, COMPREHENSIVE (83303)Indication: Hypercholesteremia On: 22-Leo-756342:15 Request LIPID PANEL (14476)Indication: Hypercholesteremia On: 77-Zbu-312001:15 Request Lipid Panel ([id number])Indication: Hypercholesteremia On: 22-Nsm-014972:50 Request RPR (RAPID PLASMA REAGIN) ([id number])Indication: Neuropathy On: 11-Vtx-537898:48 Request TSH ([id number])Indication: Thyroid disorder On: 20-Gzy-497157:48 Request HAPTOGLOBIN ([id number])Indication: Anemia On: 23-Icg-805617:46 Request PTT (Activated Partial Thromboplastin Time) (56802)Indication: Anemia On: 16-Wwh-257108:46 Request PT (Prothrobim Time) ([id number])Indication: Anemia On: 04-Pmd-978958:46 Request RETICULOCYTE COUNT (24942)Indication: Anemia On: 33-Vgo-260197:46 Request LDH (LD) (LACTATE DEHYDROGENASE) (60909)Indication: Anemia On: 18-Qto-866299:46 Request Methylmalonic acid, serum 68524Jblkoxsrtk: Anemia On: 10-Hqe-756025:46 Request Vitamin B-12 (cyanocobalamin) (12639)Indication: Anemia On: 14-Zvq-183524:46 Request Iron Binding Capacity (TIBC) (52161)Indication: Anemia On: 72-Pfl-937888:46 Request Iron (69939)Indication: Anemia On: 57-Msn-841234:46 Request Folic Acid Serum (51330)Indication: Anemia On: 12-Opq-535104:46 Request Ferritin (96122)Indication: Anemia On: 69-Twk-172937:46 Request DNA ANTIBODY-NATV/DBL ST ([id number])Indication: Pain in unspecified joint On: 81-Syp-163748:46 Request CCP ANTIBODY ([id number])Indication: Pain in unspecified joint On: 38-Wcn-559507:45 Request SED RATE ERYTHROCYTE (65713)Indication: Pain in unspecified joint On: 88-Mdo-003621:45 Request C-REACTIVE PROTEIN (49005)Indication: Pain in unspecified joint On: 57-Jjg-502933:45 Request TSH (56492)Indication: Pain in unspecified joint On: 28-Ooq-168486:45 Request RHEUMATOID FACTOR-QUANT (29363)Indication: Pain in unspecified joint On: 72-Gjw-377900:45 Request DOT (ANTINUCLEAR ANTIBODY) ([id number])Indication: Pain in unspecified joint On: 10-Jkx-248463:45 Request CBC WITH MANUAL DIFF ([id number])Indication: Pain in unspecified joint On: 21-Gte-644485:45 Request METABOLIC PANEL, COMPREHENSIVE (33894)Indication: Pain in unspecified joint On: 34-Zvy-874029:45 Request Planned Encounters Medical; 3 Month FU - On: 19-Feb-2018 10:15 [facility] Mayra Goodman CNP, CNP, Mary E Planned Procedures Flu Vaccine (Quadrivalent) On: 10-Jan-2017 Intent 08310Ep: Mayra Goodman CNP Comments: Lot #[id number]-L dltd, IMDose prefilled syringegiven by:SAMREEN SuttonNVIS and ABN signed Mayra Goodman CNP Flu Vaccine (Quadrivalent) On: 15-Dec-2015 Intent 58910Dh: Rafael Thomas MD Comments: Lot #[id number]/30/17ite-L dltd, IMDose prefilled syringegiven by:TATYANA Sutton and ABN signed MRI OF CERVICAL SPINE WITHOUT On: 19-Jul-2015 Intent CONTRAST (13789)By: Katelyn Dempsey MD Ultrasound - RenalBy: Roselyn On: 06-Jul-2015 Intent Katelyn SORTO Renal Artery DopplerBy: Roselyn On: 06-Jul-2015 Intent Katelyn SORTO MRI OF CERVICAL SPINE WITH On: 06-Jul-2015 Intent CONTRAST ([id number])By: Katelyn Dempsey MD EMGBy: Katelyn Dempsey MD On: 06-Jul-2015 Intent Nerve ConductionBy: Roselyn SORTO, On: 06-Jul-2015 Intent Katelyn Pedroza Comments: right arm MRI OF BRAIN WITH CONTRAST On: 06-Jul-2015 Intent ([id number])By: Katelyn Dempsey MD Kenalog Injection, 10 mgm On: 01-Jun-2015 Intent (J3301)By: Katelyn Dempsey MD EKG ([id number])By: Roselyn SORTO, On: 06-Oct-2014 Intent Katelyn Pedroza Comments: see scanned document of test done to see results reviewed today with patient Nuclear Stress Test/Stress On: 06-Oct-2014 Intent SPECT/AdenosineBy: Katelyn Dempsey MD Ultrasound - PelvisBy: Roselyn On: 26-Jan-2014 Intent Katelyn SORTO Flu Vaccine (Quadrivalent) On: 26-Jan-2014 Intent 03219No: Katelyn Dempsey MD Comments: Lot #:[id number] Expiration [...] 03-Nov-2013 Intent (J3301)By: Katelyn Dempsey MD EKG (57325)By: Roselyn SORTO, On: 12-May-2013 Intent Katelyn Pedroza Comments: see scanned document of test done to see results reviewed today with patient ADMINISTRATION OF INFLUENZA On: 11-Feb-2013 Intent VIRUS VACCINE (G0008)By: Dante Comments: Lot #[id number]-[id number] dltd, IMDose prefilled syringegiven by:Tony and NISHI signed Faviola FOOTE FLU VAC, SPLIT, >3 YEARS, On: 11-Feb-2013 Intent INTRAMUSC (43341)By: Faviola Howell LPN Eprescribed prescriptions On: 11-Feb-2013 Intent (G8553)By: Faviola Howell LPN Eprescribed prescriptions On: 12-Nov-2012 Intent (G8553)By: Faviola Howell LPN IMMUNIZ ADMNIN, 1 VAC, On: 29-Aug-2012 Intent SNGL/COMBO (03296)By: Chante Owen [place]PN [place] ([id number])By: On: 29-Aug-2012 Intent Chante Owen LPN Eprescribed prescriptions On: 13-Aug-2012 Intent (G8553)By: Faviola Howell LPN Eprescribed prescriptions On: 14-May-2012 Intent (G8553)By: Faviola Howell LPN Solu -Medrol Injection, 125 mg On: 05-Apr-2012 Intent (J2930)By: Mayra Goodman CNP, CNP, Ivonne ADMINISTRATION OF INFLUENZA On: 12-Feb-2012 Intent VIRUS VACCINE (G0008)By: HARESH Griffin FLU VAC, SPLIT, >3 YEARS, On: 12-Feb-2012 Intent INTRAMUSC (07971)By: HARESH Griffin PNEUM VAC ADLT/IMUMNOSPR, On: 13-Nov-2011 Intent SBC/INTRM (40580)By: Roselyn Comments: Lot:[id number]:0.5mlRoute:Ebony arm, IMGiven By:Katelyn SANFORD MD ADMINISTRATION OF PNEUMOCOCCAL On: 13-Nov-2011 Intent VACCINE (G0009)By: Katelyn Dempsey MD Eprescribed prescriptions On: 21-Jul-2010 Intent (G8553)By: Katelyn Dempsey MD MAMMOGRAM, SCREENING, BOTH On: 22-Apr-2010 Intent BREASTS (55857)By: Katelyn Dempsey MD Radiology - Hand - BilateralBy: On: 06-Sep-2009 Intent Katelyn Dempsey MD Comments: copy to [facility] Planned Medications INJECTION, METHYLPREDNISOLONE SODIUM SUCCINATE, UP TO 125 MG Ordered: 05-Apr-2012 Pending Mayra Goodman CNP, CNP, Mary E INJECTION, TRIAMCINOLONE ACETONIDE, NOT OTHERWISE SPECIFIED, 10 [...] Katelyn Dempsey MD Instructions Name Dates Details BMI 36.0-36.9,adult : How to access health [...] controlled : DISCONTINUED - MICROALBUMIN: CREATININE RATIO (49263) AND (06829) Indication: Diabetes mellitus type II, controlled Iron [...] type II, controlled Encounters Office Visit On: 20-Nov-2017 10:57 Encounter Reason: [...] for Transition into care: Was admitted to [facility] on Oct 28, 2016 with weakness un [...] deficiency, Rheumatoid arthritis, Blood in stool, Anemia, [place]'s, Anemia [facility] Office Visit On: [...] Nutrition: balanced diet and supplemental vitamins. The la dical issues the patient is following up [...] The patient does have durable power of deputy commonwealth's attorney and living will. The patient has noticed nothing from the geriatic depression scale. Other providers contributing to the patient's care a re gastrologist ( @[facility] in [facility] for colonscopy ), production machine tender (Dr. Francisco ) and other: (Saw Edge Fuser Circular: Dr. Child , Pain Management: Dr. Mcfadden [...] patient does have du rable power of deputy commonwealth's attorney and living will. The patient has noticed nothing from the geriatic depression scale. Other providers contributing to the patient's care are gastrologist ( @[facility] in [facility] for colonscopy ), production machine tender (Dr. Francisco ) and other: (Saw Edge Fuser Circular: Dr. Child , Pain Management: Dr. Mcfadden [...]
--- OUTSIDE RECORDS SUMMARY | 2018-04-22 10:15 | XMS RPT_ITS | Continuity of Care Document ---
:1945 Author Organization [facility] Address [address] [facility] [address] [place] [address] Phone Care Team Providers Name Role Phone [...] 72.8Cannot tolerate Fe supplment Status: Active Anemia, [place]'s (D51.0, 281.0) Status: Active Annual Medicare Phyiscal [...] Fede Stent [address] Campa in [place] Status: Active Current nonsmoker (Renamed from Current [...] no vomiting, resoled after stopping trulicity(03/10)Junuvia on xtr718zc once daily Rageye exam yearly(12/09/15), catarctekg cardiology Dr Zhang, stents 1 in 2003Podiatry: Dr Child [facility], every 3 months, Has multiple toe amputations [...] Comments: Sees pain management Dr. Mcfadden at [facility], she prescribes lyrica, dose increased in winter [...] toprol BP stable sees Dr. 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 [facility] BP:130-138/78 Status: Active Hypothyroidism (E03.9, 244.9) Status: [...] (M25.569, 719.46) Comments: 1 cc juanis Lot#: [id number] exp 2 cc miguel a lot#: [id number] exp: right knee has RA and this [...] candidate for valvuloplastyNew Dr : DR Kee Campa([place])per pt does not receomemd surgery at this [...] for Tdap vaccination (Renamed from Need for kiudseguxu-hlcozdr-fjgyrauhz (Tdap) vaccine, adult/adolescent) (Z23, V06.1) Status: Active [...] for new wheelchair, she will look at [facility] to see what she would like [...] {Tablet} Refills: 11 Ordered:02-Aug-2017 Maxine HINTON Mayra Delia HINTON Mayra George Start : 02-Aug-2017 Active Cyanocobalamin 1000 MCG/ML Injection Solution monthly (1000 MCG/ML) Active Cymbalta 30 MG Oral Capsule Delayed Release Particles daily (30 MG) Active FLUoxetine HCl 40 MG Oral Capsule 1 Capsule QD for 0 days Quantity: 30 {Capsule} Refills: 4 Ordered:18-Sep-2017 Maxine HINTON Mayra SHEPPARDtony HINTON Mayra George Start : 18-Sep-2017 Active Fluticasone Propionate 50 MCG/ACT Nasal Suspension 2 (two) Sprays each nostril qd for 30 days Quantity: 1 {Box} Refills: 1 Ordered:31-May-2017 Maxine HINTON Mayra Delia HINTON Mayra George Start : 31-May-2017 Active Glucophage 500 MG Oral Tablet 2 (two) Tablet two times daily for 30 days Quantity: 60 {Tablet} Refills: 2 Ordered:03-Jul-2016 Maxine HINTON Mayra Delia HINTON Mayra George Start : 03-Jul-2016 Active Comments:please give $4 prescription of glucophage, dont do metformin(has diarhea with metformin, not with generic glucophage ) Levemir 100 UNIT/ML Subcutaneous Solution 1 (one) Solution 30 in AM and 30 at bedtime for 30 days Quantity: 2 {Package} Refills: 1 Ordered:03-Jul-2016 Maxine ALLERGY NURSE, Mayra Lin ALLERGY NURSE, Ivonne Start : 03-Jul-2016 Active Comments:Total 60 [...] Dempsey MD Start : 19-Jul-2015 Active Comments:E11.9NPI: [id number] PERCOCET, 7.5-325MG (Oral Tablet) 2 (two) Tablet every 4 hours prn for 0 days Quantity: 160 {Tablet} Refills: 0 Ordered:08-Sep-2015 Rafael Thomas MD Start : 08-Sep-2015 Active Comments:one hundred and sixty Pravastatin Sodium 20 MG Oral Tablet 1 Tablet QD for 30 days Quantity: 30 {Tablet} Refills: 1 Ordered:15-Feb-2018 Maxine ALLERGY NURSE, Mayra Lin CNP, Ivonne Start : 15-Feb-2018 [...] 3 Ordered:07-Nov-2017 Maxine HINTON, Mayra Lin CNP, Ivonne Start : 07-Nov-2017 Active Spironolactone 25 MG Oral Tablet 1 Tablet QD for 30 days Quantity: 30 {Tablet} Refills: 3 Ordered:05-Nov-2017 Maxine HINTON, Mayra Lin [facility], Ivonne Start : 05-Nov-2017 Active Toprol XL 50 MG Oral Tablet Extended Release 24 Hour 1 (one) Tablet ER 24HR qd for 0 days Quantity: 30 {Tablet} Refills: 6 Ordered:14-Jan-2018 Jacqueline Sandy DO Start : 14-Jan-2018 Active Vitamin D3 2000 UNIT Oral Capsule 2 (two) Capsule bid for 30 days Quantity: 60 {Capsule} Refills: 3 Ordered:17-Oct-2017 Maxine HINTON, Mayra Lin ALLERGY NURSE, Ivonne Start : 17-Oct-2017 Active Accu-Chek FastClix [...] Quantity: 60 {Tablet} Refills: 3 Ordered:18-Dec-2016 Maxine ALLERGY NURSE, Mayra Delia HINTON, Ivonne Start : 08-Sep-2015 [...] 31-Mar-2015 End : 01-Apr-2015 Inactive Comments:SSI: 151-200-1 qhnm963-484-7 units 780-305-1lchzr 301-350-4 units 351-400-5 unitsover 400 give 5 [...] me sick as a dog Vitamin D3 50309 UNIT Oral Capsule 1 (one) Capsule once a week for 60 days Quantity: 8 {Capsule} Refills: 0 Ordered:15-Dec-2015 Rafael Thomas MD Start : 15-Dec-2015 End : 13-Feb-2016 Inactive ZOLPIDEM TARTRATE, 10MG (Oral Tablet) 1 Tablet qhs prn for 0 days Quantity: 30 {Tablet} Refills: 3 Ordered:31-Mar-2015 HARESH Griffin Start : 03-Nov-2013 End : 31-Mar-2015 Inactive Comments:estephania ZOSTAVAX, 98499BNX/0.65ML (Subcutaneous Solution Reconstituted) uad For Solution one [...] - PT Result: Comments: See Note; NOTES: [facility] [address] 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 Please let me know if there are questions or concerns regarding this plan of care. Physician Signature: Date: <Electronically signed by Juanis Sanchez DPT> 12/17/17 10 38 CC: Mayra Goodman NP ELR Signed For Medicare only, by signing this I certify the plan of care. Physicians Signature Date 05-Jan-2016 Stress Test Echo w/ Contrast Result: Comments: See Note; NOTES: [facility] Cardiovascular Services [address] [place] [address] [place] Stress Test Echo w/o Contrast MR#: [id number] Acct: [id number] Name: TIA MACARIO Ebony Rep #: [id number] : 1945 70 From: Pawan Zhang MD [...] 30.00 DOBUTAMINE STAGE 4 1:12 12 5 151/55652.00 BASELINE 88 141/55 Stress Duration: 10:12 mm:ss [...] abnormalities noted. abnormalities noted. EKG Data [facility] ECG displays normal sinus rhythm. [...] ictated: 01/05/16 1037 Date Transcribed: 01/05/16 1604 Punching Machine Operator: Signed 18-Nov-2015 Emergency Department Summary Result: Comments: See Note; NOTES: [facility] Medical Records Department [address] [place] [address] Emergency Department Summary MR#: [id number] Acct: [id number] Name: JC SERVIN Rep #: [id number] : 1945 70 From: Jose Mccain MD [...] Charcot. Jose Mccain M.D. T: NTS JOB: [id number] 11/18/15 0739 <Electronically signed by Jose Mccain MD> Date Jose Antonio Signature (If Indicated): Date CC: Rafael Thomas Date Dictated: 11/10 Date Transcribed: 11/11/151715 Punching Machine Operator: Signed 11-Nov-2015 Discharge Instruction Result: Comments: See Note; NOTES: [facility] Medical Records Department [address] [place] [address] [place] [address] Discharge Instruction 11/11/15 1451 MR#: [id number] Acct: [id number] Name: TIA SERVIN Rep #: [id number] : 1945 70 From: Jose Mccain MD [...] problems, contact your doctor. Call [facility] ([phone]) or report to [facility] Emergency Room. Call 911 if necessary. 11/11/151906 <Electronically signed by Jose Mccain MD> Date Jose Antonio Signature (If Indicated): Date CC: Rafael Thomas 11-Nov-2015 Ankle min 3 Views Result: Comments: See Note; NOTES: [facility] Imaging Services [address] [place] [address] [place] 4d Ankle min 3 Views MR#: [id number] Acct: [id number] Name: TIA SERVIN Rep #: [id number] : 1945 F 70 From: Clemencia Holden MD PCP: Rafael Thomas Status: REG ER Study: Ankle min 3 Views Date of Exam: 11/11/15 Exam# [id number] Ordering Dr: Jose Mccain MD STUDY: X-RAY [...] MD at 14:20 EDT , Service support [phone], CC: Jose Mccain; Rafael Thomas Punching Machine Operator: Signed 11-Nov-2015 Foot min 3 Views Result: Comments: See Note; NOTES: [facility] Imaging Services [address] [place] [address] [place] 4d Foot min 3 Views MR#: [id number] Acct: [id number] Name: TIA SERVIN Rep #: [id number] : 1945 F 70 From: Clemencia Holden MD PCP: Rafael Thomas Status: REG ER Study: Foot min 3 Views Date of Exam: 11/11/15 Exam# [id number] Ordering Dr: Jose Mccain MD STUDY: X-RAY [...] MD at 14:26 EDT , Service support [phone], CC: Jose Mccain; Rafael Thomas Punching Machine Operator: Signed 08-Nov-2015 PT D/C Summary (1) Result: Comments: See Note; NOTES: [facility] [address] [place] [address]. [address] [place] [address] Fax REHABILITATION SERVICES DISCHA RGE SUMMARY MR#: [id number] Acct: [id number] Name: TIA SERVIN Rep #: [id number] : 1945 70 From: Laura Wright PT, Cert. MDT Referring Dr.: OUT OF TOWN DOCTOR Status: REG RCR Insurance: MEDICARE PART A B [employer] [facility] - PT D/C Summary It has [...] TO FOLLOW UP WITH DR. LAY IN [place] SUNDAY. SHE REPORTS SHE DOES NOT WANT [...] - PT Result: Comments: See Note; NOTES: [facility] [place], [place] [address] Fax REHABILITATION SE RVICES INITIAL EVALUATION MR#: [id number] Acct: [id number] Name: TIA SERVIN Rep #: [id number] : 1945 70 From: Laura Wright PT, Cert. MDT Referring Dr.: Georgi Lay MD Status: R EG RCR Insurance: MEDICARE PART A B [facility] Patient's Visit Information TIA SERVIN is [...] THE HOSPITAL ANOTHE WEEK AND THEN A ALF FOR A MONTH TO TRY TO GET HER STRENGTH BACK. PATIENT REPORTS SHE ALSO HAS A HISTORY OF LUMBAR PRO BLEMS AND THEY ARE WORSENING. Recent major surgery: RENETTA LE TOE AMPUTATIONS AND OPEN SORES ON TOES CURRENTLY. HEART CATH/STENTS. RA AND OA. SOCIAL: LIVES ALONE. INDEP MANAGING PRINCIPAL CURRENTLY. OTHER: PATIENT REPORTS SHE DOES NOT DO WELL IN THERAPY. SHE STATES IT USUALLY CAUSES TOO MUCH PAIN. I ACHE SO BAD WHEN I DO THERAPY. PATIENT REPORTS THEY PUT HER IN THERAPY AT THE ALF AND S HE COULDN'T DO MUCH. - [...] to be FAXED BACK to us at [phone] for Medicare purposes. Please let m e know if there are questions or concerns regarding this plan of care. Physician Signature: Date: <Electronically signed by Cert. MAACRIO Rowe PTT> 10/27/15 1207 CC: Georgi Lay MD; Rafael Thomas JH Signed For Medicare only, by signing this I certify the plan of care. Physicians Signature Date 07-Oct-2015 Re-Evaluation - PT (1) Result: Comments: See Note; NOTES: [facility] [address] [place] [address] Fax REEVALUATION / [facility] PH[facility]ICAL THERAPY MR#: [id number] Acct: [id number] Name: TIA SERVIN Rep #: [id number] : 1945 70 From: Cert. MACARIO Rowe [...] do not hesitate to contact me at [phone] by phone or if you have questions or concerns regarding this new plan of care! Sincerely, Laura Wright <Electronically signed by Laura Wright PT, Cert. MDT> 10/07/15 1155 CC: Georgi Lay MD; Rafael Thomas DT: JH Signed For Medicare only, by signing this I certify the plan of care. Physicians Signature Date 24-Aug-2015 NCS and/or EMG Patient Result: Comments: See Note; NOTES: [facility] Pulmonary Services/Neurology [address] [place] [address] NCS and/or EMG Patient MR#: [id number] Acct: [id number] Name: TIA MARTINEZ Rep #: [id number] : 1945 70 From: Jakob Pino MD [...] median mononeuropathy. This is consistent with a cpcs-xh-otktgzwj right carpal tunnel syndrome. 2. Electrodiagnostic findings demonstrate acute right-sided C5 radiculopat hy. If there are any questions in regards to this exam, please do not hesitate to contact me. Jakob Pino MD T: NTS JOB: [id number] 08/24/15 1521 <Electronically signed by Jakob Pino MD> Date Jakob Pino MD CC: Jakob Pino; Katelyn Dempsey MD Date Dictated: 08/18/15 1258 Date Transcribed: 08/18/151257 Punching Machine Operator: Signed 20-Jul-2015 Renal Artery Duplex Result: Comments: See Note; NOTES: [facility] Cardiovascular Services [address] [place] [address] Renal Artery Duplex Ultrasound 07/20/15 0853 MR#: [id number] Acct: [id number] Name: TIA SERVIN Rep #: [id number] : 1945 70 From: Martinez Faulkner MD [...] Dictated: 07/20/15 0853 Date Transcribed: 07/20/15 1210 Punching Machine Operator: Signed 20-Jul-2015 Kidney and Bladder Result: Comments: See Note; NOTES: [facility] Imaging Services [address] [place] [address] [place] 4d Kidney and Bladder MR#: [id number] Acct: [id number] Name: TIA SERVIN Rep #: [id number] : 1945 F 70 From: Arabella Peace MD PCP: Katelyn Dempsey MD Status: REG CLI Study: Kidney and Bladder Date of Exam: 07/20/15 Exam# [id number] Ordering Dr: Katelyn Dempsey MD STUDY: RENAL [...] and urinary bladde r. Electronically Signed: Arabella Pecae MD at 13:01 EDT , Service support [phone], CC: Katelyn Dempsey MD Punching Machine Operator: Signed 20-Jul-2015 Brain W/WO Contrast Result: Comments: See Note; NOTES: [facility] Imaging Services [address] [place] [address] [place] 4d Brain W/WO Contrast MR#: [id number] Acct: [id number] Name: TIA SERVIN Rep #: [id number] : 1945 F 70 From: Arabella Peace MD PCP: Katelyn Dempsey MD Status: REG CLI Study: Brain W/WO Contrast Date of Exam: 07/20/15 Exam# [id number] Ordering Dr: Moe Dempsey MD STUDY: MRI [...] MD at 12:28 EDT , Service support [phone], CC: Katelyn Dempsey MD Punching Machine Operator: Signed 20-Jul-2015 Spine Cervical (Routine) Result: Comments: See Note; NOTES: [facility] Imaging Services [address] [place] [address] [place] 4d Spine Cervical (Routine) MR#: [id number] Acct: [id number] Name: TIA ANDRADE Rep #: [id number] : 1945 F 70 From: Arabella Peace MD PCP: Katelyn Dempsey MD Status: REG CLI Study: Spine Cervical (Routine) Date of Exam: 07/20/15 Exam# [id number] Ordering Dr: Katelyn Irby MD STUDY: MRI [...] at 11:49 ED T , Service support [phone], CC: Katelyn Dempsey MD Punching Machine Operator: Signed 17-Jun-2015 Echocardiogram Complete Result: Comments: See Note; NOTES: [facility] Cardiovascular Services [address] [place] [address] Echo Complete 06/17/15 0753 MR#: [id number] Acct: [id number] Name: MILY JENSENELICEOTIA Ebony Rep #: [id number] : 1945 70 From: Pawan Zhang MD [...] Dictated: 06/17/15 0753 Date Transcribed: 06/17/15 105 Punching Machine Operator: Signed 04-Mar-2015 Brain/Head without Contrast Result: Comments: See Note; NOTES: [facility] Imaging Services [address] [place] [address] [place] 4d Brain/Head without Contrast MR#: [id number] Acct: [id number] Name: TIA SERVIN Rep #: [id number] : 1945 F 69 From: Kahlil Waters PCP: Katelyn Dempsey MD Status: REG ER Study: Brain/Head without Contrast Date of Exam: 03/04/15 Exam# [id number] Esteban rivera Dr: Oleg Nash MD STUDY: [...] 0 at 3:47 EST , Service support [phone], CC: Katelyn Dempsey MD; Oleg Nash M.D. Punching Machine Operator: Signed 16-Feb-2014 Pelvic (Non ) Result: Comments: See Note; NOTES: [facility] Imaging Services [address] [place] [address] Ultrasound Report MR#: [id number] Acct: [id number] Name: TIA SERVIN Rep #: [id number] : 1945 F 68 From: Misbah Elaine DO PCP: Katelyn Dempsey MD Status: REG CLI Study: Pelvic (Non ) Date of Exam: 02/16/14 Exam# [id number] Ordering Dr: Katelyn Dempsey MD STUD Y: [...] at 4:59 EST Tel , Service support [phone], CC: Katelyn Dempsey MD Punching Machine Operator: Signed Immunization Name Dates Details [...] Most Recent 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, 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, Status: Active No Drug Use Status: Active Tobacco Use Comments: Remotely quit tobacco use 1987 Status: Active Vital Signs Date Test Result Details 62-Oxk-653101:07 Temperature 97.3 f Comments: Method: Temporal Pulse [...] kg/m2 Body Surface Area Calculated 2 m2 0-Yav-647651:37 Temperature 97.8 f Comments: Method: Temporal Pulse [...] Area Calculated 2.07 m2 :35 Comments: has [facility] Temperature 97.1 f Comments: Method: [...] kg/m2 Body Surface Area Calculated 2.07 m2 47-Jnu-492450:00 Temperature 97.4 f Comments: Method: Temporal Pulse [...] 240 lb Results Date Description Value Details 57-Aph-760452:17 CBC W/Diff, Automated Comments: WANTS THE CMP CBCDDRVANNESSA WANTS THE A1C CMP [facility] [address] [place], [address] Absolute Lymph 0.82 {X10_3/ul} (Abnormal) Range: 0.83-4.51 [...] 4.2-5.4 WBC 6.6 K/mm3 (Normal) Range: 4.4-11.0 32-Bqf-112317:17 Comprehensive Metabolic Profil Comments: WANTS THE CMP CBCDDR.DERRICK WANTS THE A1C CMP [facility] [address] [facility] [place], [place], [address] GAP 11 (Normal) Range: 5-15 CO2 22.0 [...] A.D.A. criteria.Please note revised GLUCOSE reference range njrleeewh20/02/2018. 58-Rtq-055170:17 Hemoglobin A1c Comments: WANTS THE [facility] CBCDDR.DERRICK WANTS THE A1C [facility] [address] [place], [address] HGB A1C 5.9 % (Normal) Range: 4.2-6.3 57-Svw-541376:17 Microalb:Creat Ratio,Random UR Comments: WANTS THE [facility] CBCDDR.DERRICK WANTS THE A1C [facility] [address] [place], [address] MALB:CREAT 14.7 {mg/g_CRE} (Normal) MICROALBUMIN,UR 26.9 mg/L (Normal) UR CREAT 183.00 mg/dL (Normal) 69-Lwm-270252:17 Thyroid Stim Hormone (TSH) Comments: WANTS THE [facility] CBCDDR.DERRICK WANTS THE A1C [facility] [address] [place], [address] TSH 0.78 {uIU/mL} (Normal) Range: 0.358-3.74 2-Fhl-269062:11 CBC W/Diff, Automated Comments: [facility] [address] [place], [address] Absolute Lymph 1.06 {X10_3/ul} (Normal) [...] 4.2-5.4 WBC 6.4 K/mm3 (Normal) Range: 4.4-11.0 0-Jee-948851:11 Comprehensive Metabolic Profil Comments: [facility] [address] [place], [address] GAP 14 (Normal) Range: 5-15 CO2 24.0 [...] A.D.A. criteria.Please note revised GLUCOSE reference range hakobonby78/02/2018. 47-Lad-332627:01 HgA1C , Office (68053) Comments: 5.8 HgA1C , Office 5.8 % (Normal) Range: 4.6 - 7.1 07-Lyw-680175:00 Blood Glucose , Office (45901) Comments: 99 Blood Glucose , Office 99 (Normal) 17-Iws-32805:19 Comprehensive Metabolic Profil Comments: [facility] [address] [place], [place], [address] GAP 11 (Normal) Range: 5-15 CO2 26.0 [...] A.D.A. criteria.Please note revised GLUCOSE reference range iylsxbkeb61/02/2018. :19 Hemoglobin A1c Comments: [facility] [address] [facility]. [place], [place], [address] HGB A1C 5.6 % (Normal) Range: 4.2-6.3 :19 Thyroid Stim Hormone (TSH) Comments: [facility] [address] [facility]. [place], [place], [address] TSH 2.33 {uIU/mL} (Normal) Range: 0.358-3.74 :19 Vitamin D,25 Hydroxy Comments: [facility] [address] [facility]. [place], [place], [address] Vitamin D 25-OH 37.3 ng/mL (Normal) Range: 29.95-100.01 Comments: Vitamin D 25(OH) Status Range Deficiency <20 ng/mL (50nmol/L) Insuffciency - 30 ng/mL (50 - 75 nmol/L) Sufficiency 30 - 100 ng/mL (75 - 250 nmol/L) Toxicity >100 ng/mL (>250 nmol/L) 46-Buw-437406:01 CBC W/Diff, Automated Comments: [facility] [address] [place], [place], [address] Absolute Lymph 1.26 {X10_3/ul} (Normal) Range: 0.83-4.51 [...] 4.2-5.4 WBC 7.4 K/mm3 (Normal) Range: 4.4-11.0 97-Ohq-541387:01 Comprehensive Metabolic Profil Comments: [facility] [address] [place], [place], [address] GAP 10 (Normal) Range: 5-15 CO2 25.0 [...] A.D.A. criteria.Please note revised GLUCOSE reference range exjypqtal36/02/2018. 67-Jtn-395953:34 CALCIFEDIOL (66150) Comments: PATIENT NOT FASTINGPERFORMED BY: [facility] Bridge[facility]yemr[facility]76 [facility] [id number] Vitamin D, 25-Hydroxy 30.2 ng/mL (Normal) Range: 30.0-100.0 Comments: Vitamin D deficiency has been defined by the [place] and an Endocrine Society practice guideline as alevel of serum 25-OH vitamin D less than 20 ng/mL (1,2).The Endocrine Society went on to further define vitamin Dinsufficiency as a level between 21 and 29 ng/mL (2).1. IOM ([place] [employer]). 2010. Dietary reference intakes for calcium and D. [place]: The National Academies Press.2. Brandon MF, Bakari BOYD, Vicente IZAGUIRRE, et al. Evaluation, treatment, and prevention of vitamin D deficiency: an Endocrine Society clinical practice guideline. JCEM. 2010; 96(7):1911-30. 25-Jul-20179:41 Comprehensive Metabolic Profil Comments: [facility] [address] [place], [address] GAP 10 (Normal) Range: 5-15 CO2 24.0 [...] A.D.A. criteria.Please note revised GLUCOSE reference range qekalauvp55/02/2018. :41 Hemoglobin A1c Comments: [facility] [address] [place], [id number] HGB A1C 5.8 % (Normal) Range: 4.2-6.3 :41 Lipid Profile Comments: [facility] [address] [place], [address] VLDL 45 mg/dL (Abnormal) Range: 5-40 LDL [...] High Risk :41 Microalb:Creat Ratio,Random UR Comments: [facility] [address] [place], [place], [address] MALB:CREAT 14.8 {mg/g_CRE} (Normal) MICROALBUMIN,UR 46.0 mg/L (Normal) UR CREAT 310.00 mg/dL (Normal) :41 Thyroid Stim Hormone (TSH) Comments: [facility] [address] [place], [address] TSH 1.96 {uIU/mL} (Normal) Range: 0.358-3.74 39-Ytf-755878:18 CBC W/Diff, Automated Comments: [facility] [address] [facility]. [place], [place], [address] Absolute Lymph 1.08 {X10_3/ul} (Normal) Range: 0.83-4.51 [...] 4.2-5.4 WBC 4.7 K/mm3 (Normal) Range: 4.4-11.0 70-Qgl-794473:18 Comprehensive Metabolic Profil Comments: [facility] [address] [facility] [place], [address] GAP 7 (Normal) Range: 5-15 CO2 26.0 mmol/L (Normal) Range: 21.0-32.0 CL 107 mmol/L (Normal) Range: 98-107 K 4.8 mmol/L (Normal) Range: 3.5-5.1 NA 140 mmol/L (Normal) Range: 136-145 T BILI 0.60 mg/dL (Normal) Range: 0.20-1.00 ALT 16 U/L (Normal) Range: 13-56 Comments: Please note revised ALT reference range ozmhewwra67/28/2018. ALK P 63 U/L (Normal) Range: 45-117 [...] A.D.A. criteria.Please note revised GLUCOSE reference range jroljvbll54/02/2018. 4-Dyd-885834:40 CALCIFEDIOL (99808) Comments: PATIENT NOT FASTINGPERFORMED BY: [facility]6370 [facility] [id number] Vitamin D, 25-Hydroxy 31.0 ng/mL (Normal) Range: 30.0-100.0 Comments: Vitamin D deficiency has been defined by the [place] and an Endocrine Society practice guideline as alevel of serum 25-OH vitamin D less than 20 ng/mL (1,2).The Endocrine Society went on to further define vitamin Dinsufficiency as a level between 21 and 29 ng/mL (2).1. IOM ([place]). 2010. Dietary reference intakes for calcium and D. [place]: The National Academies Press.2. Holick MF, Bakari [place], Vicente IZAGUIRRE, et al. Evaluation, treatment, and prevention of vitamin D deficiency: an Endocrine Society clinical practice guideline. JCEM. 2010; 96(7):1911-30. 5-Tqj-186934:20 Crystals, Body Fluid Comments: [facility] [address] [place], [place], [address] PATH REV Reviewed (Normal) Comments: Negative for malignant cells and crystals.Acute inflammation.Clinical correlation necessary.Jacinto Herrera M.D. 03/28/17 AMENDED REPORT 03/28/17 1357 PATH REV previously reported as: Will follow SOURCE/BF SYNOVIAL (Normal) CRYSTALS/BF SEE PATH REV (Normal) 7-Npo-017125:20 Culture, Body Fluid Comments: [facility] [address] [place], [place], [address] ; dr redd ALASF See Note (Normal) [...] DAYS Cult, AnaerobicNo growth in 5 days. 4-Zck-009977:20 Synovial Fluid RBC, WBC AND Comments: [facility] [address] [place], [place], [address] ; dr rainey Diff PATH COM/SYFL May [...] Comments: YELLOW/RED SYNOVIAL SOURCE RIGHT KNEE (Normal) 47-Zjl-84370:53 CBC W/Diff, Comments: PLEASE FAX RESULTS TO [id number] PT REQUEST.[facility] [address] [place], [place], [address] ; dr barba Automated Absolute Lymph 0.89 [...] :53 Comprehensive Comments: PLEASE FAX RESULTS TO [id number] PT REQUEST.[facility] [address] [place], [address] Metabolic Profil GAP 10 (Normal) Range: 5-15 [...] Hemoglobin A1c Comments: PLEASE FAX RESULTS TO [id number] PT REQUEST.[facility] R[address]iy[address]rxkf[address] [place], [address] HGB A1C 6.9 % (Abnormal) Range: 4.2-6.3 :53 Lipid Profile Comments: PLEASE FAX RESULTS TO [id number] PT REQUEST.[facility] Fx[address]av[address]rxq[address] [place], [address] VLDL 29 mg/dL (Normal) Range: 5-40 LDL [...] Thyroid Stim Comments: PLEASE FAX RESULTS TO [id number] PT REQUEST.[facility] [address]pyx[address] [place], [place], [address] Hormone (TSH) TSH 1.69 {uIU/mL} (Normal) Range: 0.358-3.74 05-Svz-293752:59 HgA1C , Office (04129) HgA1C , Office 6.4 % (Normal) Range: 4.6 - 7.1 74-Fcs-986571:59 Blood Glucose , Office (34779) Blood Glucose , Office 213 (Normal) 26-Uvy-931778:27 CBC W/Diff, Automated Comments: SHARE RESULTS WITH DERRICK FOR [facility] [address] [place], [address] Absolute Lymph 1.20 {X10_3/ul} (Normal) [...] 4.2-5.4 WBC 6.1 K/mm3 (Normal) Range: 4.4-11.0 33-Zoc-778554:27 Comprehensive Metabolic Profil Comments: SHARE RESULTS WITH DERRICK FOR [facility] Fbvycvuqqp9[address] [place], [place], [address] GAP 11 (Normal) Range: 5-15 CO2 23.0 [...] 200 mg/dLsuggests DIABETES MELLITUS per A.D.A. criteria. 58-Bpa-683550:05 Comprehensive Metabolic Profil Comments: [facility] [address] [place], [address] GAP 9 (Normal) Range: 5-15 CO2 24.0 [...] 126 mg/dLsuggests DIABETES MELLITUS per A.D.A. criteria. 30-Yac-073811:05 Hemoglobin A1c Comments: [facility] Y[address] [facility] [address] [place], [place], [address] HGB A1C 6.7 % (Abnormal) Range: 4.2-6.3 17-Kjy-841575:05 Thyroid Stim Hormone (TSH) Comments: [facility] [address] [place], [place], [address] TSH 3.02 {uIU/mL} (Normal) Range: 0.358-3.74 89-Bgw-738764:05 Vitamin D,25 Hydroxy Comments: [facility] J[address]ovx[address] [facility] [address] [place], [place], [address] Vitamin D 25-OH 23.5 ng/mL (Normal) Comments: Vitamin D 25(OH) Status Range Deficiency <20 ng/mL (50nmol/L) Insuffciency 20 - 30 ng/mL (50 - 75 nmol/L) Sufficiency 30 - 100 ng/mL (75 - 250 nmol/L) Toxicity >100 ng/mL (>250 nmol/L) :56 HgA1C , Office (62605) HgA1C , Office 6.3 % (Normal) Range: 4.6 - 7.1 :56 Blood Glucose , Office (41577) Blood Glucose , Office 194 (Normal) :37 CBC W/Diff, Automated Comments: [facility] [address] [place], [place], [address] ; another doc Absolute Lymph 1.29 {X10_3/ul} [...] Range: 4.4-11.0 :37 Comprehensive Metabolic Profil Comments: [facility] [address] [place], [place], [address] GAP 7 (Normal) Range: 5-15 CO2 29.0 [...] 126 mg/dLsuggests DIABETES MELLITUS per A.D.A. criteria. 77-Zch-23269:37 Basic Metabolic Profile Comments: Order Date: 12/03/15DRKARLA WANTS LIVER,LIPIDDR.DERRICK KEE BMPInterface Comments: 12 hours fasting, may have water.Order Date: 12/03/15[facility] [address]umzuag[address] [place], [place], [address] (BMP) GAP 4 (Abnormal) Range: 5-15 CO2 [...] 12 hours fasting, may have water.Order Date: 12/03/15[facility] Y[address]ggcqdr060[address] [place], [address] VLDL 18 mg/dL (Normal) Range: 5-40 LDL [...] 12 hours fasting, may have water.Order Date: [facility]/03/15[facility] [address] [place], [address] D BILI 0.11 mg/dL (Normal) Range: 0.00-0.30 T BILI 0.40 mg/dL (Normal) Range: 0.20-1.00 ALT 14 U/L (Normal) Range: 12-78 ALK P 47 U/L (Normal) Range: 45-117 AST 12 U/L (Abnormal) Range: 15-37 GLOB 3.3 g/dL (Normal) Range: 2.3-3.5 ALB 2.8 g/dL (Abnormal) Range: 3.4-5.0 T PROT 6.1 g/dL (Abnormal) Range: 6.4-8.2 :40 HgA1C , Office (31124) HgA1C , Office 6.1 % (Normal) Range: 4.6 - 7.1 :40 Blood Glucose , Office (62263) Blood Glucose , Office 208 (Normal) 2-Ati-533864:45 Culture, Body Fluid Comments: [facility] [address]hirh[address] [place], [place], [address] CUBF See Note (Normal) Comments: List Antibiotics Last 48 Hours? UNKList Antibiotics to be Started? UNKComments: SYNOVIAL FLUID LEFT KNEE..Gram StainCentrifuged Specimen? Culture performed on centrifuged specimen Gram Stain 3+ Red Blood Cells 1+ White Blood Cells No organisms seen Body Fluid CultNO GROWTH IN 14 DAYS Cult, AnaerobicNo growth in 5 days. 3-Mkk-534147:45 Synovial Fluid RBC, WBC AND Comments: [facility] [address] [place], [place], [address] Diff PATH COM/SYFL May follow (Normal) MONO [...] Yellow (Normal) SYNOVIAL SOURCE LEFT KNEE (Normal) 56-Uxh-004235:21 CBC W/Diff, Automated Comments: [facility] [address] [place], [place], [address] Absolute Lymph 1.21 {X10_3/ul} (Normal) Range: 0.83-4.51 [...] 4.2-5.4 WBC 6.5 K/mm3 (Normal) Range: 4.4-11.0 65-Aaj-614728:21 Comprehensive Metabolic Profil Comments: [facility] [address]nd[address] [place], [place], [address] GAP 8 (Normal) Range: 5-15 CO2 23.0 [...] <126 mg/dLsuggests IMPAIRED HOMEOSTASIS per A.D.A. criteria. 2-Cos-926138:31 CBC W/Diff, Automated Comments: [facility] [address]elj[address] [place], [place], [address] Absolute Lymph 1.21 {X10_3/ul} (Normal) Range: 0.83-4.51 [...] 4.2-5.4 WBC 8.5 K/mm3 (Normal) Range: 4.4-11.0 4-Lxn-218287:31 Comprehensive Metabolic Profil Comments: [facility] [address] [place], [address] GAP 9 (Normal) Range: 5-15 CO2 27.0 [...] 126 mg/dLsuggests DIABETES MELLITUS per A.D.A. criteria. 9-Wnx-451111:49 Blood Glucose , Office (65638) Blood Glucose , Office 219 (Normal) 8-Vvv-442762:49 HgA1C , Office (07494) HgA1C , Office 7.5 % (Abnormal) Range: 4.6 - 7.1 43-Zmm-772385:27 C-Peptide Comments: [facility] (refer to report for specific site)refer to report for address and phone number C PEPTIDE 11093 7.0 ng/mL (Abnormal) Range: 1.1-4.4 Comments: C-Peptide reference interval is for fasting patients.Performed at: [address] [id number] Director: Lex Lai PhD, Phone: [phone] 86-Mib-313189:27 CBC W/Diff, Automated Comments: [facility] [address] [place], [address] ANISO 1+ (Normal) Absolute Lymph [...] 4.2-5.4 WBC 8.3 K/mm3 (Normal) Range: 4.4-11.0 72-Zvi-415676:27 Comprehensive Metabolic Profil Comments: [facility] [address] [place], [place], [address] GAP 9 (Normal) Range: 5-15 CO2 25.0 [...] 126 mg/dLsuggests DIABETES MELLITUS per A.D.A. criteria. 23-Wzq-919091:27 Hemoglobin A1c Comments: [facility] Q[address]tyvbe[address] [facility] [place], [address] HGB A1C 7.5 % (Abnormal) Range: 4.2-6.3 12-Cum-986798:27 Microalb:Creat Ratio,Random UR Comments: [facility] Ptntpdgpdk3463 [facility] [place], [address] MALB:CREAT 6.7 {mg/g_CRE} (Normal) MICROALBUMIN,UR 9.6 mg/L (Normal) UR CREAT 144.00 mg/dL (Normal) 95-Lcb-823426:27 Miscellaneous Lab Procedure Comments: Test(s) Ordered: ISLET CELL ANTIBODY [id number] SERUM/[facility] Dawwkzrbon3953 [facility] [place], [address] MIS Comments: TEST RESULT UNITS REFERENCE INTERVALAntipancreatic Islet Cells Negative Neg:<1:1 TEST LAB (Normal) ING PERFORMED AT [facility]. ORIGINAL REPORT ON FILE IN LAB CONTAINS ADDITIONAL TEST SITE INFORMATION. TEST 53-Rbp-701984:25 HAPTOGLOBIN (41283) Comments: PATIENT NOT FASTINGPERFORMED BY: [facility]6370 [facility] [id number] Haptoglobin 259 mg/dL (Abnormal) Range: 34-200 48-Ftu-399492:25 SPEP (33366) Comments: PATIENT NOT FASTINGPERFORMED BY: [facility]6370 [facility] [id number] Please note: SPRCS (Normal) Comments: Protein electrophoresis scan will follow via computer, mail, orcourier delivery. A/G Ratio 0.9 (Normal) Range: 0.7-1.7 Globulin, Total 3.4 g/dL (Normal) Range: 2.2-3.9 M-Anam Not Observed g/dL (Normal) Gamma Globulin 0.8 g/dL (Normal) Range: 0.4-1.8 Beta Globulin 1.2 g/dL (Normal) Range: 0.7-1.3 Zvkjr-0-Ougonaee 1.1 g/dL (Abnormal) Range: 0.4-1.0 Uyyht-2-Olgrcyuu 0.3 g/dL (Normal) Range: 0.0-0.4 Albumin 3.2 g/dL (Normal) Range: 2.9-4.4 Protein, Total, Serum 6.6 g/dL (Normal) Range: 6.0-8.5 88-Que-477872:25 UPEP (56684) Comments: PATIENT NOT FASTINGPERFORMED BY: [facility]6370 [facility] [id number] Please note: SPRCS (Normal) Comments: Protein electrophoresis scan will follow via computer, mail, orcourier delivery. M-Anam, % Not Observed % (Normal) Gamma Globulin, U 10.2 % (Normal) Beta Globulin, U 22.4 % (Normal) Dcxvr-4-Kmqmxeud, U 9.8 % (Normal) Fwhdy-2-Cnjurxha, U 1.8 % (Normal) Albumin, U 55.8 % (Normal) Protein,Total,Urine 42.4 mg/dL (Normal) 07-Zsg-861623:25 RETICULOCYTE COUNT MANUL Comments: PATIENT NOT FASTINGPERFORMED BY: [employer] Vbptfo3385 [facility] [id number] (55938) Reticulocyte Count 2.0 % (Normal) Range: 0.6-2.6 36-Wsh-109438:25 IRON BINDING CAPACITY (TIBC) Comments: PATIENT NOT FASTINGPERFORMED BY: [employer] Sivsja5737 [facility] [id number] (96142) Iron Saturation 4 % (Abnormal) Range: 15-55 Iron, Serum 14 ug/dL (Abnormal) Range: 27-139 UIBC 372 ug/dL (Abnormal) Range: 118-369 Iron Bind.Cap.(TIBC) 386 ug/dL (Normal) Range: 250-450 06-Vda-822833:25 FERRITIN (44157) Comments: PATIENT NOT FASTINGPERFORMED BY: [employer] Gfbrzn3225 [facility] [id number] Ferritin, Serum 19 ng/mL (Normal) Range: 15-150 74-Vfw-507234:25 CBC, PLATELETS & AUT DIFF Comments: PATIENT NOT FASTINGPERFORMED BY: [facility] Hohuwe3849 [facility] [id number] Information: [id number] (63853) Immature Grans (Abs) 0.0 {x10E3/uL} (Normal) Range: [...] (Normal) Range: 3.4-10.8 :32 HgA1C , Office (31004) HgA1C , Office 8.2 % (Abnormal) Range: 4.6 - 7.1 :16 CBC W/Diff, Automated Comments: DR.N THOMAS ORDERED TSH LIPID VITD CBCD B12 FOLOTES CMP MIACRE ORDERED LIPID LIVERDR.MARYAM ORDERED CMP CBCDWPremier Health Qobtmrkflr2816 [facility] [place], [place], [phone] OVALOCYTE 1+ (Normal) BASO STIP RARE (Normal) [...] Patient Taking Vitamins or Folic Acid Supplements? [facility] [place], [address] GAP 9 (Normal) Range: 5-15 CO2 26.0 [...] Patient Taking Vitamins or Folic Acid Supplements? [place] [address] [place], [place], [address] FOLATES 11.20 ng/mL (Normal) Range: 3.1-17.5 :16 Lipid Profile Comments: DR.N THOMAS ORDERED TSH LIPID VITD CBCD B12 FOLOTES CMP LUCÍA ORDERED LIPID LIVERDR.VELLANMÓNICA ORDERED CMP CBCDIs Patient Taking Vitamins or Folic Acid Supplements? [facility] [place], [address] VLDL 32 mg/dL (Normal) Range: [...] ORDERED TSH LIPID VITD CBCD B12 FOLOTES [facility] LUCÍA ORDERED LIPID LIVERDR.MARYAM ORDERED [facility]CDS[facility] Ucjytkfluo7396 [facility]. [place], [place], [address] MALB:CREAT 7.5 {mg/g_CRE} (Normal) MICROALBUMIN,UR 10.1 mg/L (Normal) UR CREAT 135.00 mg/dL (Normal) :16 Thyroid Stim Hormone (TSH) Comments: DR.N THOMAS ORDERED TSH LIPID VITD CBCD B12 FOLOTES [facility] LUCÍA ORDERED LIPID LIVERDR.MARYAM ORDERED [facility] CBCDIs Patient Taking Vitamins or Folic Acid Supplements? [facility] qhedczga[address]606 [facility] [place], [place], [address] TSH 1.90 {uIU/mL} (Normal) Range: 0.358-3.74 :16 Vitamin B12 324 pg/mL (Normal) Comments: DR.N THOMAS ORDERED TSH LIPID VITD CBCD B12 FOLOTES [facility] LUCÍA ORDERED LIPID LIVERDR.MARYAM ORDERED [facility] CBCDShel[facility] [address]meucop[address] [place], [place], [address] Range: 211-911 :16 Vitamin D,25 Hydroxy Comments: DR.N THOMAS ORDERED TSH LIPID VITD CBCD B12 FOLOTES [facility] LUCÍA ORDERED LIPID LIVERDR.JOHNLANKI ORDERED CMP CBCDWPremier Health [address]yrtjls[address] [place], [phone] Vitamin D 25-OH 24.7 ng/mL (Normal) Comments: Vitamin D 25(OH) Status Range Deficiency <20 ng/mL (50nmol/L) Insuffciency 20 - 30 ng/mL (50 - 75 nmol/L) Sufficiency 30 - 100 ng/mL (75 - 250 nmol/L) Toxicity >100 ng/mL (>250 nmol/L) 2-Xlx-137473:25 OVA & PARASITE DIR SMEAR Comments: PATIENT NOT FASTINGPERFORMED BY: [employer] [place] [id number] (49511) Result 1 NOCP (Normal) Comments: No ova, cysts, or parasites seen. Ova + Parasite Exam Final report (Normal) Comments: These results were obtained using wet preparation(s) and trichromestained smear. This test does not include testing for Cryptosporidiumparvum, Cyclospora, or Microsporidia. 6-Cnq-091511:25 OCCULT BLOOD FECES SCREEN Comments: PATIENT NOT FASTINGPERFORMED BY: [employer] Rglcyz0029 [facility] [id number] (61701) Occult Blood, Fecal, IA Positive (Abnormal) 7-Syo-678762:25 LEUKOCYTE COUNT, FECAL (57661) Comments: PATIENT NOT FASTINGPERFORMED BY: [employer] Tkmhxl7787 [facility] [id number] Result 1 NWBC (Normal) Comments: No white blood cells seen. White Blood Cells (WBC), Final report (Normal) Stool 5-Qtx-031263:24 C-DIFFICILE, STOOL (57443) Comments: PATIENT NOT FASTINGPERFORMED BY: [employer] [facility] Nwkmhc0438 [place] [id number] Information: [id number] C difficile Toxins A+B, EIA Negative (Normal) 1-Oyu-115579:25 LAINE CULTURE-STOOL (67955) Comments: PATIENT NOT FASTINGPERFORMED BY: [employer] [facility] Shxrmh2861 [facility]At[facility] [id number] Information: SRC:STL [id number] E coli Shiga Toxin EIA Negative (Normal) Result 1 NCI (Normal) Comments: No Campylobacter species isolated. Campylobacter Culture Final report (Normal) Result 1 NSS (Normal) Comments: No Salmonella or Shigella recovered. Salmonella/Shigella Screen Final report (Normal) :22 Blood Glucose , Office (38016) Blood Glucose , Office 191 (Normal) :22 HgA1C , Office (91691) HgA1C , Office 7.4 % (Abnormal) Range: 4.6 - 7.1 :19 CBC W/Diff, Automated Comments: [facility] [address]tfqzixdud[address] [place], [place], [address] Absolute Lymph 1.86 {X10_3/ul} (Normal) Range: 0.83-4.51 [...] 4.2-5.4 WBC 8.4 K/mm3 (Normal) Range: 4.4-11.0 5-Dpv-881530:19 Comprehensive Metabolic Profil Comments: [facility] [address]ru[address]ve[address] [place], [address] GAP 10 (Normal) Range: 5-15 CO2 24.0 [...] 126 mg/dLsuggests DIABETES MELLITUS per A.D.A. criteria. 07-Ihk-886356:50 CALCIFEDIOL (78981) Comments: PATIENT NOT FASTINGPERFORMED BY: [facility] Ekunla5193 [facility] [id number] Vitamin D, 25-Hydroxy 20.8 ng/mL (Abnormal) Range: 30.0-100.0 Comments: Vitamin D deficiency has been defined by the [place] of[place]icine and an Endocrine Society practice guideline as alevel of serum 25-OH vitamin D less than 20 ng/mL (1,2).The Endocrine Society went on to further define vitamin Dinsufficiency as a level between 21 and 29 ng/mL (2).1. IOM ([place] of [employer]). 2010. Dietary reference intakes for calcium and D. [place]: The National Academies Press.2. Brandon MF, Bakari BOYD, Vicente IZAGUIRRE, et al. Evaluation, treatment, and prevention of vitamin D deficiency: an Endocrine Society clinical practice guideline. JCEM. 2010; 96(7):1911-30. 62-Sgq-339715:50 POTASSIUM SERUM (12322) Comments: PATIENT NOT FASTINGPERFORMED BY: [facility]aRar[facility], Old BridgeWyarku3061 [facility]At[facility] [id number] Potassium, Serum 5.4 mmol/L (Abnormal) Range: 3.5-5.2 51-Nmm-534082:50 MAGNESIUM (54567) Comments: PATIENT NOT FASTINGPERFORMED BY: [facility]CoRar[facility], Old BridgeCclugi[address] [facility] [address] [place] [id number] Magnesium, Serum 1.8 mg/dL (Normal) Range: 1.6-2.3 58-Pgx-015260:50 AMMONIA (35314) Comments: PATIENT NOT FASTINGPERFORMED BY: [place] [address] [facility] [id number] BY: [facility] Bzwuoe5918 [address] [facility] HospitalDublin [place] [id number] Ammonia, Plasma 40 ug/dL (Normal) Range: 19-87 05-Beh-115003:50 SPEP (39451) Comments: PATIENT NOT FASTINGPERFORMED BY: [facility] Aitxtq[address] [facility] [address] Louis[facility] [id number] Information: [id number] Please note: SPRCS (Normal) Comments: Protein electrophoresis scan will follow via computer, mail, orcourier delivery. A/G Ratio 1.2 (Normal) Range: 0.7-2.0 Globulin, Total 3.0 g/dL (Normal) Range: 2.0-4.5 M-Anam Comment: g/dL (Normal) Comments: [place]ETR[facility] [place] [facility] Gamma Globulin 0.6 g/dL (Normal) Range: 0.5-1.6 Beta Globulin 1.0 g/dL (Normal) Range: 0.6-1.3 Oimjn-7-Abootafu 1.1 g/dL (Normal) Range: 0.4-1.2 Twmob-1-Knpsvtnd 0.3 g/dL (Normal) Range: 0.1-0.4 Albumin 3.5 g/dL (Normal) Range: 3.2-5.6 Protein, Total, Serum 6.5 g/dL (Normal) Range: 6.0-8.5 01-Iwx-023857:54 CREATININE CLEARANCE Comments: PATIENT NOT FASTINGPERFORMED BY: SpareFootAt[facility] Health [facility] [id number] Information: [id number] START 07/18/15@630A M FINISH 07/18@7AM (05381) Creatinine Clearance 57 mL/min (Abnormal) Range: 88-128 [...] Creatinine, Serum 0.75 mg/dL (Normal) Range: 0.57-1.00 79-Dpn-753626:54 Total Protein,24 Hour Urine Comments: PATIENT NOT FASTINGPERFORMED BY: [employer]6370 [facility] [id number]; has fu 4-28 (50332) Prot,24hr calculated 354.6 {mg/24_hr} (Abnormal) Range: 30.0-150.0 Protein,Total,Urine 39.4 mg/dL (Abnormal) Range: 0.0-15.0 Comments: Effective August 02, 2015 the reference interval for Protein, Total, Urine will be changing to: Not Estab. 91-Yps-393855:45 URINE VMA (77890) Comments: 24 hour urine; PATIENT NOT FASTINGPERFORMED BY: [employer] [id number] VMA, Urine, 24hr 2.3 {mg/24_hr} (Normal) Range: 0.0-7.5 VMA, Urine 3.3 mg/L (Normal) 24-Tjt-831194:50 RENIN (42458) Comments: PATIENT NOT FASTINGPERFORMED BY: [employer] [id number] BY: [facility].csV[facility] Affairs [facility]6370 [facility] [id number] Information: [id number] Renin Activity, Plasma 1.17 {ng/mL/hr} (Normal) Comments: Adult Normal Salt Intake: Upright 1.31 - 3.95 Supine 0.15 - 2. 33 . Salt Excretion (Na mEq/24 hr): Na= 0 - 30 8.82 - 23.86 Na= 30 - 75 4.09 - 7.73 Na= 75 - 150 1.44 - 2.80 Na= >150 0.39 - 1.31 03-Nfg-945230:45 METANEPHRINES - URINE (40510) Comments: PATIENT NOT FASTINGPERFORMED BY: [employer] [id number] Metanephrine, U,24hr 50 {ug/24_hr} (Normal) Range: 45-290 Comments: (Hypertensive) >17 years 11 months: 35 - 460 Metanephrine, Ur 71 ug/L (Normal) Normetanephr.,U,24h 319 {ug/24_hr} (Normal) Range: 82-500 Comments: (Hypertensive) >17 years 11 months: 110 - 1050 Normetanephrine, Ur 455 ug/L (Normal) 40-Hcc-101988:45 CATECHOLAMINES TOTAL, URINE Comments: PATIENT NOT FASTINGPERFORMED BY: [facility] [id number] Information: SRC:UR [id number] START 07/20@9AM JENNIE CRUZ (94696) Dopamine, Ur, 24hr 90 {ug/24_hr} (Normal) Range: 0-510 Dopamine, Urine 128 ug/L (Normal) Norepinephrine,U,24h 48 {ug/24_hr} (Normal) Range: 0-135 Norepinephrine, Ur 68 ug/L (Normal) Epinephrine, U, 24hr 1 {ug/24_hr} (Normal) Range: 0-20 Epinephrine, Urine 2 ug/L (Normal) :50 HgA1C , Office (13232) HgA1C , Office 7.7 % (Abnormal) Range: 4.6 - 7.1 :20 CBC W/Diff, Automated Comments: [facility] [address]uebj[address] [place], [place], [address] Absolute Lymph 1.40 {X10_3/ul} (Normal) Range: 0.83-4.51 [...] Range: 4.4-11.0 :20 Comprehensive Metabolic Profil Comments: [facility] [address]edssbr[address] [place], [place], [address] GAP 8 (Normal) Range: 5-15 CO2 26.0 [...] 200 mg/dLsuggests DIABETES MELLITUS per A.D.A. criteria. 93-Fiq-196593:49 HgA1C , Office (00292) HgA1C , Office 6.6 % (Normal) Range: 4.6 - 7.1 1-Acm-553284:04 CBC W/Diff, Automated Comments: [facility] [address] [place], [place], [address] Absolute Lymph 1.54 {X10_3/ul} (Normal) Range: 0.83-4.51 [...] 4.2-5.4 WBC 9.0 K/mm3 (Normal) Range: 4.4-11.0 7-Mix-179357:04 Comprehensive Metabolic Profil Comments: [facility] Oetiiamyga[address] [place], [place], [address] GAP 11 (Normal) Range: 5-15 CO2 24.0 [...] <126 mg/dLsuggests IMPAIRED HOMEOSTASIS per A.D.A. criteria. 32-Ich-43433:10 Basic Metabolic Profile (BMP) Comments: Serial Specimen #1, #2 or #3? 1'TROP' Serial specimen #1, #2, #3, or #4: [facility] Fbqlqlqreh[address] [place], [place], [address] GAP 9 (Normal) Range: 5-15 CO2 26.0 [...] 126 mg/dLsuggests DIABETES MELLITUS per A.D.A. criteria. 66-Wyd-54875:10 Carboxyhemoglobin Frac (CO) Comments: [facility] Tgyvxbnkbw3033 [facility]. [place], [place], [address](556) COHb 1.3 % (Normal) Range: 0.0-1.5 Comments: * NON-SMOKER RANGE 1.6 - 5.0% * LIGHT SMOKER RANGE 5.1 - 9.0% * HEAVY SMOKER RANGE :10 CBC W/Diff, Automated Comments: [facility] Nhkuesmjyb9684 [facility]. [place], [place], [phone] Absolute Lymph 0.87 {X10_3/ul} (Normal) Range: 0.83-4.51 [...] Serial specimen #1, #2, #3, or #4: [address] [place] [address] [address]oxma[address] [place], [address] CKRI 1.9 % (Abnormal) Range: 0.0-1.4 Comments: RELATIVE INDEX >1.5% IS PRESUMPTIVELY POSITIVE CPKMB 1.0 ng/mL (Normal) Range: 0.0-5.0 Comments: CK-MB and RI Interpretation MB Relative Index Non-AMI <or= 5 NA Indeterminate > 5 <or= 4 AMI > 5 > 4 CPK TOTAL 53 U/L (Normal) Range: 26-192 [id number] Troponin-I Comments: Serial Specimen #1, #2 or #3? 1'TROP' Serial specimen #1, #2, #3, or #4: [address] [place] [address] [id number] [facility] [place], [address] TROPONIN-I 0.03 ng/mL (Normal) Comments: TROPONIN-I EXPECTED VALUES <0.05 NEGATIVE 0.06 - 0.59 AT RISK OF MT > OR = 0.60 SUGGEST MT [id number] CBC W/Diff, Automated Comments: Test performed at:[facility] [id number] [place] [address] Absolute Lymph 1.31 {X10_3/ul} (Normal) [...] 4.2-5.4 WBC 6.4 K/mm3 (Normal) Range: 4.4-11.0 [id number] Comprehensive Metabolic Profil Comments: Test performed at:[facility] [id number] [place] [address] GAP 7 (Normal) Range: 5-15 [...] Comments: Please note revised CREATININE reference range maidtchoc91/22/2015. BUN 14 mg/dL (Normal) Range: 7-18 GLU 145 mg/dL (Abnormal) Range: 70-110 Comments: Fasting Glucose result greater than or equal to 126 mg/dLsuggests DIABETES MELLITUS per A.D.A. criteria. :17 HgA1C , Office ([id number]) HgA1C , Office 6.2 % (Normal) Range: 4.6 - 7.1 :34 CBC W/Diff, Automated Comments: Test performed at:[facility] [id number] [place] [address] Absolute Lymph 0.90 {X10_3/ul} (Normal) [...] 4.2-5.4 WBC 5.2 K/mm3 (Normal) Range: 4.4-11.0 7-Xnf-291026:34 Comprehensive Metabolic Profil Comments: Test performed at:[facility] Macaozqfix4930 [place] [address] GAP 7 (Normal) Range: 5-15 CO2 28.0 [...] <126 mg/dLsuggests IMPAIRED HOMEOSTASIS per A.D.A. criteria. 9-Kbv-614337:34 Lipid Profile Comments: Test performed at:[facility] [address]if[address] [place] [address] VLDL 33 mg/dL (Normal) Range: 5-40 LDL [...] 200-240 mg/dL Borderline >240 mg/dL High Risk 2-Lou-302897:34 Thyroid Stim Hormone (TSH) Comments: Test performed at:[facility] [address] [place] [address] 12449 TSH 2.56 {uIU/mL} (Normal) Range: 0.358-3.74 93-Icn-954279:02 CBC W/Diff, Automated Comments: Test performed at:[facility] [address] [place] [address] 544141 Absolute Lymph 1.28 {X10_3/ul} (Normal) Range: 0.83-4.51 [...] 4.2-5.4 WBC 6.1 K/mm3 (Normal) Range: 4.4-11.0 29-Uxw-187107:02 Comprehensive Metabolic Profil Comments: Test performed at:[facility] Joktlkbndq8548 [place], [place] [id number] GAP 9 (Normal) Range: 5-15 CO2 28.0 [...] per A.D.A. criteria. :47 HgA1C , Office (02227) HgA1C , Office 5.7 % (Normal) Range: 4.6 - 7.1 :47 Blood Glucose , Office (29408) Blood Glucose , Office 132 (Normal) :39 CBC W/Diff, Automated Comments: Test performed at:[facility] Vqpfrpzvvl5539 [place] [address] Absolute Lymph 1.14 {X10_3/ul} (Normal) Range: 0.83-4.51 [...] 4.2-5.4 WBC 6.0 K/mm3 (Normal) Range: 4.4-11.0 16-Bgj-256161:39 Comprehensive Metabolic Profil Comments: Test performed at:[facility] Bttcpwtazu7963 [address] [place], [place] [address] GAP 7 (Normal) Range: 5-15 CO2 27.0 [...] 7-18 GLU 100 mg/dL (Normal) Range: 70-110 0-Ddy-048298:38 TSH (80099) Comments: PATIENT NOT FASTINGPERFORMED BY: [facility] Xwcaxf4380 [facility] [id number] TSH 4.120 {uIU/mL} (Normal) Range: 0.450-4.500 1-Ygd-728066:11 URINE LAINE CULTURE-IDENTIFICATN Comments: PATIENT NOT FASTINGPERFORMED BY: [facility]6370 [facility] [id number] (09015) Antimicrobial MIHEAD (Normal) Comments: S = Susceptible; [...] primarily for treating urinary tract infections. (CLSI, [id number],2009) Result 1 ECV (Abnormal) Comments: Escherichia coli, identified by an automated biochemical system.1,000 Colonies/mLProteus mirabilis/penneri1,000 Colonies/mL Urine Final report Culture,Comprehensive (Abnormal) 0-Fmm-884030:11 URINALYSIS (60223) Comments: PATIENT NOT FASTINGPERFORMED BY: [facility]6370 [facility] [id number] Information: [id number] Microscopic Examination MICNIP (Normal) Comments: Microscopic not indicated and not performed. Nitrite, Urine Negative (Normal) Urobilinogen,Semi-Qn 0.2 mg/dL (Normal) Range: 0.0-1.9 Bilirubin Negative (Normal) Occult Blood Negative (Normal) Ketones Negative (Normal) Glucose Negative (Normal) Protein Negative (Normal) WBC Esterase Negative (Normal) Appearance Clear (Normal) Urine-Color Yellow (Normal) pH 6.0 (Normal) Range: 5.0-7.5 Specific [place] 1.021 (Normal) Range: 1.005-1.030 :38 CBC, Platelets & Auto Diff Comments: PATIENT NOT FASTINGPERFORMED BY: [facility] Old BridgeZnwfeh8859 [facility] [id number] Information: [id number] (90864) Immature Grans (Abs) 0.0 {x10E3/uL} (Normal) Range: [...] 6.5 {x10E3/uL} (Normal) Range: 3.4-10.8 :38 Lipase (61781) Comments: PATIENT NOT FASTINGPERFORMED BY: [facility] Old BridgeKsplwp4406 [facility] [id number] Lipase, Serum 19 U/L (Normal) Range: 0-59 :38 Amylase (22939) Comments: PATIENT NOT FASTINGPERFORMED BY: [facility]6370 [facility] [id number] Amylase, Serum 32 U/L (Normal) Range: 31-124 9-Gwu-912575:38 Metabolic Panel, Comprehensive Comments: PATIENT NOT FASTINGPERFORMED BY: [facility]6370 [facility] [id number] (73016) ALT (SGPT) 17 [iU]/L (Normal) Range: 0-32 [...] (Abnormal) Range: 65-99 :28 HgA1C , Office (12266) HgA1C , Office 7.9 % (Abnormal) Range: 4.6 - 7.1 :28 Blood Glucose , Office (48814) Blood Glucose , Office 170 (Normal) :05 HgA1C , Office (94199) HgA1C , Office 7.5 % (Abnormal) Range: 4.6 - 7.1 :05 Blood Glucose , Office (43743) Blood Glucose , Office 267 (Normal) :19 [...] 200 mg/dLsuggests DIABETES MELLITUS per A.D.A. criteria. 3-Ang-219830:19 TSH 2.09 {uIU/mL} (Normal) Comments: DR FRANCISCO ORDERED CMP CBCDDR BONEZZZeny ORDERED CMP CBCD Range: 0.358-3.74 :03 HgA1C , Office (42328) HgA1C , Office 9.1 % (Abnormal) Range: 4.6 - 7.1 :03 Blood Glucose , Office (25322) Blood Glucose , Office 136 (Normal) 57-Mrr-775247:22 Blood Glucose , Office (03924) Blood Glucose , Office 204 (Normal) 06-Yii-806292:21 HgA1C , Office (62135) HgA1C , Office 7.3 % (Abnormal) Range: 4.6 - 7.1 :45 HgA1C , Office (85460) HgA1C , Office 7.3 % (Abnormal) Range: 4.6 - 7.1 :45 Blood Glucose , Office (35815) Blood Glucose , Office 176 (Normal) Comments: [...] 126 mg/dLsuggests DIABETES MELLITUS per A.D.A. criteria. 00-Jaa-125670:33 HgA1C , Office (32979) HgA1C , Office 7.1 % (Normal) Range: 4.6 - 7.1 69-Tbq-382763:33 Blood Glucose , Office (50483) Blood Glucose , Office 127 (Normal) 01-Adj-939497:40 CBC With Differential/Platelet Comments: PERFORMED BY: [facility]6370 [facility] [id number] Immature Grans (Abs) 0.0 {x10E3/uL} (Normal) Range: [...] 3.77-5.28 WBC 6.2 {x10E3/uL} (Normal) Range: 4.0-10.5 00-Qun-462201:40 Comp. Metabolic Panel (14) Comments: PERFORMED BY: [facility], Old BridgeDsmpqj5215 [facility] [id number] ALT (SGPT) 24 [iU]/L (Normal) Range: 0-32 [...] (Abnormal) TSH 3.580 {uIU/mL} Comments: PERFORMED BY: [employer] [facility]70 [facility] [id number] :40 (Normal) Range: 0.450-4.500 :38 PREALBUMIN (41228) Comments: PATIENT NOT FASTINGPERFORMED BY: [employer] [facility] Xypmkw8566 [facility] [id number] Information: ADD [id number] AND DRAW FEE 99 6660 Prealbumin 21 mg/dL (Normal) Range: 20-40 :35 HgA1C , Office (78234) HgA1C , Office 7.3 % (Abnormal) Range: 4.6 - 7.1 :01 HgA1C , Office (62397) HgA1C , Office 7.4 % (Abnormal) Range: 4.6 - 7.1 59-Evz-888389:46 HgA1C , Office (20843) HgA1C , Office 7.3 % (Abnormal) Range: 4.6 - 7.1 :46 Blood Glucose , Office (20196) Blood Glucose , Office 193 (Normal) :12 HgA1C , Office (54607) HgA1C , Office 6.7 % (Normal) Range: 4.6 - 7.1 09-Sih-270213:12 Blood Glucose , Office (65397) Blood Glucose , Office 103 (Normal) 06-Nto-963964:26 CBCMD RBCM NORM C+C {NORMAL} (Normal) PE [...] 4.2-5.4 WBC 7.2 K/mm3 (Normal) Range: 4.4-11.0 24-Xqy-416938:26 CMP GAP 8 (Normal) Range: 5-15 CO2 [...] 7-18 GLU 80 mg/dL (Normal) Range: 70-110 53-Bmr-079429:26 LIPID VLDL 12 mg/dL (Normal) Range: 5-40 [...] 10.9 mg/L (Normal) CREU 76.7 mg/dL (Normal) 23-Xex-493494:21 HgA1C , Office (45980) HgA1C , Office 6.7 % (Normal) Range: 4.6 - 7.1 :21 Blood Glucose , Office (18892) Blood Glucose , Office 88 (Normal) 5-Wdw-938918:06 CBCD SMEAR COMMENT SeeNote (Normal) Comments: Result: [...] (Normal) Range: 8-252 :30 HgA1C , Office (03289) HgA1C , Office 8.4 % (Abnormal) Range: 4.6 - 7.1 38-Fep-594378:30 Blood Glucose , Office (01510) Blood Glucose , Office 232 (Normal) 62-Rtx-274807:39 HgA1C , Office (33087) HgA1C , Office 8.2 % (Abnormal) Range: 4.6 - 7.1 04-Mgl-160596:39 Blood Glucose , Office (03537) Blood Glucose , Office 181 (Normal) 20-Ywm-812499:20 CBCD,SMEAR DIFF Comments: ORDERED CBCD,CMPDR.ROSELYN ORDERED CBCMD,LIPID,CMP,MICROALB [...] mg/dL suggests DIABETES MELLITUS per A.D.A. criteria. 87-Ysg-694562:20 LIPID Comments: ORDERED CBCD,CMPDRLAWANDA ORDERED CBCMD,LIPID,CMP,MICROALB LDL [...] 200-240 mg/dL Borderline >240 mg/dL High Risk 74-Qqh-527198:04 Blood Glucose , Office (38244) Blood Glucose , Office 244 (Normal) 31-Ocw-817297:36 HgA1C , Office (89025) HgA1C , Office 7.5 % (Abnormal) Range: 4.6 - 7.1 68-Ttc-832626:36 Blood Glucose , Office (72193) Blood Glucose , Office 178 (Normal) 27-Wsr-900562:24 HgA1C , Office (88364) HgA1C , Office 6.8 % (Normal) Range: 4.6 - 7.1 96-Ewy-534332:24 Blood Glucose , Office (12400) Blood Glucose , Office 141 (Normal) Comments: [...] mg/dL suggests DIABETES MELLITUS per A.D.A. criteria. 13-Njz-532951:58 LIPID Comments: DR DEMPSEY ORDERED LIPID DR [...] mg/dL High Risk :02 HgA1C , Office (95936) HgA1C , Office 6.9 % (Normal) Range: 4.6 - 7.1 :02 Blood Glucose , Office (97467) Blood Glucose , Office 251 (Normal) :11 [...] DOT DIRECT 52 AU/mL (Normal) :54 ANTI-CCP 318749 > 250 {units} Range: 0-19 (Abnormal) Comments: [...] mm/h (Abnormal) Range: 0-30 :54 HB CORE DJ93611 SeeNote (Normal) Comments: Result: NegativePerformed at: [facility] [address] [id number] Director: Yasmine Cabrera MD, Phone: [phone] at: [facility] [address] [id number] Director: Jovani Odom MD, Phone: [phone] :[phone] HBsAg 6510 HB SURF AG 6510 SeeNote (Normal) Comments: Result: Negative :54 HEBSAB 6395 < 0.1 (Normal) Range: 0.00-0.99 Comments: Status of Immunity Anti-HBs Level Inconsistent with Immunity 0.00 - 0.99Consistent with Immunity >0.99.An Index Value of 1.00 is equivalent to 10 mIU/mL.However the magnitude of the Index Value is notindicative of the total amount of antibody present. :54 HEP C AB 134555 <0.1 (Normal) Range: 0.0-0.9 Comments: Negative: < 0.8Indeterminate 0.8 - 0.9Positive: > 0.9.In order to reduce the incidence of a false positiveresult, the CDC recommends that all s/co ratiosbetween 1.0 and 10.9 be confirmed with additionalRIBA or PCR testing. :54 RHEUMATOID FAC 539.0 {IU/mL} (Abnormal) :54 VIT D,25 63293 27.3 ng/mL (Abnormal) Range: 32.0-100.0 Comments: Recent studies consider the lower limit of 32.0 ng/mL to gloria threshold for optimal health.Alexander MARY. J Nutr. 2004;135(2):317-22. 78-Spm-491613:30 HAND,MIN 3 VIEWS (MT) Radiology Report See Note (Normal) Comments: Exam Number: [id number] CLINICAL:This a 64-year-old female patient with history of pain. X-RAY EXAMINATION RIGHT HAND TECHNIQUE:Three views of the hand. COMPARISON:None. FINDINGS:Normal visualized carpal bones. Normal metacarpal bones. Normal visualized phalanges. Normal carpal articulations. Normal metacarpophalangeal joints. There are degenerative changesof the interphalangeal joints. There is no d emonstrated soft tissue swelling. IMPRESSION:Chronic degenerative changes, as discussed above. Reported By: VIDHYA NORRIS 94-Nol-622482:29 HAND,MIN 3 VIEWS (MT) Radiology Report See Note (Normal) Comments: Exam Number: [id number] CLINICAL:This is a 64-year-old female patient with [...] as discussed above. Reported By: VIDHYA NORRIS 18-Rzy-275522:45 Anti-dsDNA Antibodies Comments: PATIENT WAS FASTINGPERFORMED BY: CB [facility] Vlvubg4222 [facility] [id number] BY: [address] [id number] Anti-DNA (DS) Ab Qn 1 {IU/mL} (Normal) Range: 0-9 Comments: Negative <5Equivocal 5 - 9Positive >9 96-Xoz-060674:45 Antinuclear Antibodies Comments: PATIENT WAS FASTINGPERFORMED BY: [facility] [id number] BY: [address] [id number] Direct DOT Direct Negative (Normal) C-Reactive Protein, 5.1 mg/L (Abnormal) Comments: PATIENT WAS FASTINGPERFORMED BY: [address] [id number] BY: [address] [id number] :45 Quant Range: 0.0-4.9 71-Dlb-984667:45 CBC With Differential/Platelet Comments: PATIENT WAS FASTINGPERFORMED BY: [address] [id number] BY: [address] [id number] Hematology Comments: Note: (Normal) Comments: Verified by [...] >250 {units} Comments: PATIENT WAS FASTINGPERFORMED BY: [employer] [id number] BY: [employer] [id number] 3:45 (Abnormal) Range: 0-19 Comments: Negative <20Weak positive 20 - 39Moderate positive 40 - 59Strong positive >59 29-Qpi-401272:45 Comp. Metabolic Panel Comments: PATIENT WAS FASTINGPERFORMED BY: [employer] [id number] BY: [employer] [id number] (14) Alkaline Phosphatase, S 99 [iU]/L (Normal) [...] ng/mL (Normal) Comments: PATIENT WAS FASTINGPERFORMED BY: [employer] Jwnacb7792 [facility] [id number] BY: [employer] [id number] 13:45 Range: 13-150 20-Aug-2009 Haptoglobin 252 mg/dL Comments: PATIENT WAS FASTINGPERFORMED BY: [employer] Oprcog9672 [facility] [id number] BY: [address] [id number] 13:45 (Abnormal) Range: 34-200 20-Jgy-055706:45 Iron and TIBC Comments: PATIENT WAS FASTINGPERFORMED BY: [facility], Old BridgeTkykdw[address] [place] [address] [id number] BY: [employer] [id number] Iron Bind.Cap.(TIBC) 384 ug/dL (Normal) Range: 250-450 Iron Saturation 6 % (Abnormal) Range: 15-55 Iron, Serum 24 ug/dL (Abnormal) Range: 35-155 UIBC 360 ug/dL (Normal) Range: 150-375 LDH 190 [iU]/L (Normal) Comments: PATIENT WAS FASTINGPERFORMED BY: [employer] [facility] [id number] BY: [address] [id number] :45 Range: 100-250 :45 Lipid Panel With LDL/HDL Comments: PATIENT WAS FASTINGPERFORMED BY: [employer] [facility] [id number] BY: [address] [id number] Ratio HDL Cholesterol 41 mg/dL (Normal) Comments: [...] 182 nmol/L Comments: PATIENT WAS FASTINGPERFORMED BY: [employer] [facility] [id number] BY: [address] [id number] 3:45 Serum (Normal) Range: 73-376 Comments: The reference range for methylmalonic acid has been set at +3sd abovethe mean for healthy blood bank donors. In the clinical assessment ofpatients with megaloblastic anemias a cutoff of +3sd provides gr eaterspecificity in the diagnosis of the vitamin deficiency states,despite the sacrifice of some sensitivity. :45 PT and PTT Comments: PATIENT WAS FASTINGPERFORMED BY: [facility]6370 [facility] [id number] BY: [address] [id number] aPTT 29 {sec} (Normal) Range: 24-33 Comments: This test has not been validated for monitoring unfractionated heparintherapy. aPTT-based therapeutic ranges for unfractionated heparintherapy have not been established. For general guidelines onHeparin monitoring, refer to the [facility] Directory of Services. Prothrombin Time 11.1 {sec} Range: 8.7-11.5 (Normal) INR 1.1 (Normal) Range: 0.8-1.2 Comments: Reference interval is for non-anticoagulated patients..Suggested INR therapeutic range for Vitamin Kantagonist therapy:Standard Dose (moderate intensitytherapeutic range): 2.0 - 3.0Higher intensity therapeutic range 2.5 - 3.5 20-Aug-2009 Reticulocyte Count 2.4 % (Normal) Comments: PATIENT WAS FASTINGPERFORMED BY: [facility]6370 [facility] [id number] BY: [address] [id number] 13:45 Range: 0.5-3.0 20-Aug-2009 RPR Non Reactive Comments: PATIENT WAS FASTINGPERFORMED BY: [place] 6880970 [facility] [id number] BY: [address] [id number] 13:45 (Normal) 20-Aug-2009 Sedimentation 13 mm/h (Normal) Comments: PATIENT WAS FASTINGPERFORMED BY: [facility]6370 [facility] [id number] BY: [address] [id number] 13:45 Rate-Westergren Range: 0-30 20-Aug-2009 TSH 2.470 {uIU/mL} Comments: PATIENT WAS FASTINGPERFORMED BY: [facility]6370 [facility] [id number] BY: [facility] Xdpibquozs2465 [facility] [id number] 13:45 (Normal) Range: 0.450-4.500 75-Ply-276527:45 Vitamin B12 and Folate Comments: PATIENT WAS FASTINGPERFORMED BY: [facility] Mzlgqb[address] [place] [id number] BY: [facility] Efcccxbnmn3947 [facility] [id number] Folate (Folic Acid), Serum 10.5 ng/mL (Normal) Comments: Indeterminate: 2.2 - 3.0Deficient: <2.2 Vitamin B12 583 pg/mL (Normal) Range: 211-946 76-Wfo-731105:18 HgA1C , Office (96929) HgA1C , Office 7.3 % (Abnormal) Range: 4.6 - 7.1 73-Chf-942055:18 Blood Glucose , Office (85798) Blood Glucose , Office 167 (Normal) Plan of Care Name Dates Details Instructions Need for Tdap vaccination (Renamed from Need for bwtlwxlvzr-wevxvye-dyuwarbew (Tdap) vaccine, adult/adolescent) : Follow up in 3 months Indication: Need for Tdap vaccination (Renamed from Need for uvigbecxmn-gcmyjok-gbkhqniqs (Tdap) vaccine, adult/adolescent) Annual Medicare Phyiscal WITHOUT [...] Knee pain Planned Observations Metabolic Panel, Comprehensive (34240)Indication: Rheumatoid arthritis On: 97-Cvl-490997:41 Request Comments: Mar 2017 MICROALBUMIN: CREATININE RATIO (03180) AND (95217)Indication: Diabetes mellitus type II, controlled On: 4-Dop-162322:50 Request VITAMIN B12 AND FOLATES (61501)Indication: Diabetes mellitus type II, controlled On: 1-Wcw-283559:50 Request CALCIFEDIOL (68102)Indication: Diabetes mellitus type II, controlled On: 3-Ujo-192285:50 Request TSH (THYROID STIMULATING HORMONE) (45739)Indication: Hypothyroidism On: 0-Wbf-191899:50 Request LIPID PANEL (91092)Indication: Hypercholesteremia On: 1-Qwz-759514:50 Request METABOLIC PANEL, COMPREHENSIVE (34958)Indication: Diabetes mellitus type II, controlled On: 6-Rrn-101154:50 Request CBC, PLATELETS & AUT DIFF (66239)Indication: Diabetes mellitus type II, controlled On: 5-Xoj-629445:49 Request IRON (55414)Indication: Anemia On: 02-Ail-986770:05 Request Blood Glucose , Office (09953)Indication: Diabetes mellitus type II, controlled On: 86-Ndf-72540:32 Request MICROALBUMIN: CREATININE RATIO (30800) AND (35374)Indication: Diabetes mellitus type II, controlled On: :06 Request VITAMIN B12 AND FOLATES (03095)Indication: Vitamin D deficiency On: 32-Cfe-424294:00 Request VITAMIN D, 1, 25-DIHYDROXY (08261)Indication: Vitamin D deficiency On: 90-Ipq-399346:00 Request LIPID PANEL (42622)Indication: Hypercholesteremia On: 22-Gik-881521:00 Request METABOLIC PANEL, COMPREHENSIVE (08144)Indication: Diabetes mellitus type II, controlled On: 68-Dsa-339630:00 Request CBC, PLATELETS & AUT DIFF (53752)Indication: Diabetes mellitus type II, controlled On: 62-Yyd-476835:59 Request TSH (THYROID STIMULATING HORMONE) (10187)Indication: Hypothyroidism On: :59 Request POTASSIUM SERUM (76940)Indication: Hyperkalemia On: 14-Izk-205025:59 Request Comments: 2-3 weeks CALCIFIDIOL (24804) VIT D 25Indication: Vitamin D deficiency On: 21-Yah-316672:34 Request TSH (08438)Indication: Hypothyroidism On: 77-Epz-114789:34 Request MICROALBUMIN: CREATININE RATIO (48964) AND (44996)Indication: Diabetes mellitus type II, controlled On: :34 Request URINALYSIS, W/ MICRO (58601)Indication: Diabetes mellitus type II, controlled On: :34 Request TSH (56588)Indication: Hypothyroidism On: :34 Request METABOLIC PANEL, COMPREHENSIVE (06304)Indication: Diabetes mellitus type II, controlled On: :34 Request LIPID PANEL (05039)Indication: Diabetes mellitus type II, controlled On: :34 Request CBC with auto diff (44846)Indication: Diabetes mellitus type II, controlled On: :34 Request CBC with auto diff (59969)Indication: Hypertension, benign On: 05-Ids-520697: Request METABOLIC PANEL, COMPREHENSIVE (45979)Indication: Hypertension, benign On: 49-Xdt-971722:26 Request LIPID PANEL (80884)Indication: Hypertension, benign On: 08-Gso-288203:26 Request TSH (17325)Indication: Hypothyroidism On: : Request CBC WITH MANUAL DIFF (20490)Indication: Hypertension, benign On: 28-Pxf-045890:21 Request METABOLIC PANEL, COMPREHENSIVE (05393)Indication: Hypertension, benign On: 11-Tta-061806:21 Request TSH (16373)Indication: Hypothyroidism On: 71-Xoy-894021:21 Request Methymalonic Acid, Serum (45489)Indication: Thrombocytopenia, unspecified On: 69-Otm-63736:48 Request Vitamin B-12 (cyanocobalamin) (49668)Indication: Thrombocytopenia, unspecified On: :48 Request CBC, Platelets & Auto Diff (13579)Indication: Thrombocytopenia, unspecified On: :48 Request Comments: citrate METABOLIC PANEL, COMPREHENSIVE (53313)Indication: Hypertension, benign On: :59 Request CBC WITH MANUAL DIFF (83061)Indication: Hypertension, benign On: 15-Fkq-487340:59 Request TSH (74811)Indication: Hypothyroidism On: :29 Request METABOLIC PANEL, COMPREHENSIVE (52944)Indication: Hypertension, benign On: :29 Request Blood Glucose , Office (33061)Indication: Diabetes mellitus type II, controlled On: 10-Fax-826728:35 Request TSH (48538)Indication: Hypothyroidism On: :19 Request METABOLIC PANEL, COMPREHENSIVE (92103)Indication: Diabetes mellitus type II, controlled On: 68-Ioe-238726:19 Request LIPID PANEL (11057)Indication: Diabetes mellitus type II, controlled On: 80-Ksf-063023:19 Request Blood Glucose , Office (97058)Indication: Diabetes mellitus type II, controlled On: 43-Zml-889771:01 Request TSH (16517)Indication: Thyroid disorder On: 84-Mli-176035:29 Request MICROALBUMIN: CREATININE RATIO (20599) AND (06272)Indication: Diabetes mellitus type II, controlled On: : Request METABOLIC PANEL, COMPREHENSIVE (38690)Indication: Diabetes mellitus type II, controlled On: 36-Mur-143086: Request LIPID PANEL (88109)Indication: Diabetes mellitus type II, controlled On: : Request CBC WITH MANUAL DIFF (02218)Indication: Diabetes mellitus type II, controlled On: : Request CBC WITH MANUAL DIFF (11521)Indication: Diabetes mellitus type II, controlled On: 53-Fkq-157459:52 Request MICROALBUMIN: CREATININE RATIO (20471) AND (04945)Indication: Diabetes mellitus type II, controlled On: 30-Wiu-656897:29 Request METABOLIC PANEL, COMPREHENSIVE (86368)Indication: Diabetes mellitus type II, controlled On: 44-Ase-260548:29 Request LIPID PANEL (72764)Indication: Diabetes mellitus type II, controlled On: 84-Zpi-778614:29 Request CBC WITH MANUAL DIFF (00643)Indication: Diabetes mellitus type II, controlled On: 10-Eij-246231:29 Request FERRITIN (54295)Indication: Anemia On: 4-Acz-278738:26 Request CBC with manual diff (16629)Indication: Anemia On: 29-May-20119:12 Request HgA1C , Office (75957)Indication: Diabetes mellitus type II, controlled On: 93-Gow-928806:04 Request METABOLIC PANEL, COMPREHENSIVE (09443)Indication: Hypercholesteremia On: 56-Cmr-844129:15 Request LIPID PANEL (31075)Indication: Hypercholesteremia On: 61-Rgo-195336:15 Request Lipid Panel (40996)Indication: Hypercholesteremia On: 82-Qwy-489557:50 Request RPR (RAPID PLASMA REAGIN) (86074)Indication: Neuropathy On: 54-Cqz-178029:48 Request TSH (95357)Indication: Thyroid disorder On: 59-Okl-580898:48 Request HAPTOGLOBIN (88402)Indication: Anemia On: :46 Request PTT (Activated Partial Thromboplastin Time) (26385)Indication: Anemia On: 46 Request PT (Prothrobim Time) (47885)Indication: Anemia On: :46 Request RETICULOCYTE COUNT (76660)Indication: Anemia On: :46 Request LDH (LD) (LACTATE DEHYDROGENASE) (17113)Indication: Anemia On: :46 Request Methylmalonic acid, serum 27806Rzxfxruose: Anemia On: 46 Request Vitamin B-12 (cyanocobalamin) (12467)Indication: Anemia On: :46 Request Iron Binding Capacity (TIBC) (51676)Indication: Anemia On: :46 Request Iron (13318)Indication: Anemia On: :46 Request Folic Acid Serum (87297)Indication: Anemia On: :46 Request Ferritin (39813)Indication: Anemia On: 52-Tqk-388201:46 Request DNA ANTIBODY-NATV/DBL ST (65163)Indication: Pain in unspecified joint On: :46 Request CCP ANTIBODY (59337)Indication: Pain in unspecified joint On: 87-Sgx-300516:45 Request SED RATE ERYTHROCYTE ([id number])Indication: Pain in unspecified joint On: 41-Iqg-810692:45 Request C-REACTIVE PROTEIN ([id number])Indication: Pain in unspecified joint On: 01-Hze-889650:45 Request TSH ([id number])Indication: Pain in unspecified joint On: 17-Rpu-221741:45 Request RHEUMATOID FACTOR-QUANT ([id number])Indication: Pain in unspecified joint On: :45 Request DOT (ANTINUCLEAR ANTIBODY) ([id number])Indication: Pain in unspecified joint On: 86-Nog-262193:45 Request CBC WITH MANUAL DIFF ([id number])Indication: Pain in unspecified joint On: 79-Zqy-241940:45 Request METABOLIC PANEL, COMPREHENSIVE ([id number])Indication: Pain in unspecified joint On: 05-Wzk-824057:45 Request Planned Encounters Medical; 3 Month FU - On: 24-May-2018 9:30 [facility] Mayra Goodman CNP, CNP, Mary E Planned Procedures TDAP VACCINE >7 IM ([id number])By: Maxine On: 20-Feb-2018 Intent Mayra HINTON CNP, Mary E DEXA SCAN AXIAL SKELETON ([id number])By: On: 20-Feb-2018 Intent Mayra Goodman CNP, CNP, Mary E Flu Vaccine (Quadrivalent) 08211Vn: On: 30-Jan-2018 Intent Mayra Goodman CNP, CNP, Mary E Comments: Lot #[id number]/30/2019Site-L dltd, IMDose prefilled syringegiven by: TATYANA HART reviewed and ABN signed Flu Vaccine (Quadrivalent) [id number]: On: 10-Jan-2017 Intent Mayra Goodman CNP, CNP, Mary E Comments: Lot #[id number]/[id number]-L dltd, IMDose prefilled syringegiven by:TATYANA Sutton and ABN signed Flu Vaccine (Quadrivalent) [id number]: On: 15-Dec-2015 Intent Rafael Thomas MD Comments: Lot #[id number]/30/17ite-L dltd, IMDose prefilled syringegiven by:TATYANA Sutton and ABN signed MRI OF CERVICAL SPINE WITHOUT On: 19-Jul-2015 Intent CONTRAST ([id number])By: Katelyn Dempsey MD Ultrasound - RenalBy: Roselyn SORTO, On: 06-Jul-2015 Intent Katelyn Pedroza Renal Artery DopplerBy: Roselyn SORTO, On: 06-Jul-2015 Intent Katelyn Pedroza MRI OF CERVICAL SPINE WITH CONTRAST On: 06-Jul-2015 Intent ([id number])By: Katelyn Dempsey MD EMGBy: Katelny Dempsey MD On: 06-Jul-2015 Intent Nerve ConductionBy: Katelyn Dempsey MD On: 06-Jul-2015 Intent Yovany Comments: right arm MRI OF BRAIN WITH CONTRAST On: 06-Jul-2015 Intent ([id number])By: Katelyn Dempsey MD Kenalog Injection, 10 mgm On: 01-Jun-2015 Intent ([id number])By: Katelyn Dempsey MD EKG ([id number])By: Katelyn Dempsey MD On: 06-Oct-2014 Intent Comments: see scanned document of test done to see results reviewed today with patient Nuclear Stress Test/Stress On: 06-Oct-2014 Intent SPECT/AdenosineBy: Katelyn Dempsey MD Ultrasound - PelvisBy: Roselyn SORTO, On: 26-Jan-2014 Intent Katelyn Pedroza Flu Vaccine (Quadrivalent) [id number]: On: 26-Jan-2014 Intent Katelyn Dempsey MD Comments: [...] 03-Nov-2013 Intent (J3301)By: Katelyn Dempsey MD EKG ([id number])By: Katelyn Dempsey MD On: 12-May-2013 Intent Comments: see scanned document of test done to see results reviewed today with patient ADMINISTRATION OF INFLUENZA VIRUS On: 11-Feb-2013 Intent VACCINE ([id number])By: Faviola Howell LPN Comments: Lot #[id number]-L dltd, IMDose prefilled syringegiven by:Tony and NISHI signed FLU VAC, SPLIT, >3 YEARS, INTRAMUSC On: 11-Feb-2013 Intent ([id number])By: Faviola Howell LPN Eprescribed prescriptions ([id number])By: On: 11-Feb-2013 Intent Faviola Howell LPN Eprescribed prescriptions ([id number])By: On: 12-Nov-2012 Intent Dante JOLLEYNFaviola IMMUNIZ ADMNIN, 1 VAC, SNGL/COMBO On: 29-Aug-2012 Intent ([id number])By: Brayden FOOTEJoeyie ZOSTER VACC, DC ([id number])By: Brayden On: 29-Aug-2012 Intent DARY Chante Eprescribed prescriptions ([id number])By: On: 13-Aug-2012 Intent Long PORT CAPTAINFaviola Eprescribed prescriptions ([id number])By: On: 14-May-2012 Intent Dante PORT CAPTAINFaviola L Solu -Medrol Injection, 125 mg On: 05-Apr-2012 Intent ([id number])By: Maxine HINTON, Mayra Goodman CNP, Ivonne ADMINISTRATION OF INFLUENZA VIRUS On: 12-Feb-2012 Intent VACCINE (G0008)By: HARESH Griffin FLU VAC, SPLIT, >3 YEARS, INTRAMUSC On: 12-Feb-2012 Intent ([id number])By: HARESH Griffin PNEUM VAC ADLT/IMUMNOSPR, SBC/INTRM On: 13-Nov-2011 Intent ([id number])By: Katelyn Dempsey MD Comments: Lot:Exp:2.14 [id number]:0.5mlRoute:L arm, IMGiven By:JKM ADMINISTRATION OF PNEUMOCOCCAL On: 13-Nov-2011 Intent VACCINE (G0009)By: Katelyn Dempsey MD Eprescribed prescriptions ([id number])By: On: 21-Jul-2010 Intent Katelyn Dempsey MD MAMMOGRAM, SCREENING, BOTH BREASTS On: 22-Apr-2010 Intent ([id number])By: Katelyn Dempsey MD Radiology - Hand - BilateralBy: On: 06-Sep-2009 Intent Katelyn Dempsey MD Comments: copy to [facility] Planned Medications INJECTION, METHYLPREDNISOLONE SODIUM SUCCINATE, UP [...] SPECIFIED, 10 MG Ordered: 01-Jun-2015 Pending Katelyn eDmpsey MD Instructions Name Dates Details Current nonsmoker [...] controlled : DISCONTINUED - MICROALBUMIN: CREATININE RATIO ([id number]) AND (66086) Indication: Diabetes mellitus type II, controlled Iron [...] The patient does have durable power of assistant attorney general and living will. The patient has noticed dropping activities and interests, getting bored, staying at home rather than doing something new or going out and lack of energy. Other providers contributing to the patient's care are sales engineer engineered products (dr. morris), solar installation manager (dr. francisco) and other: (di[facility]Encounter Diagnosis: BMI 35.0-35.9,adult, Current nonsmoker (Renamed from Current non-smoker), Annual Medicare Phyiscal WITHOUT abnormal findings (Renamed from Encounter for general adult medical examination without abnormal findings), Postmenopausal (Renamed from Postmenopausal status), Need for Tdap vaccination (Renamed from Need for pvngjyhnzy-vpyswvg-fxomcwsyk (Tdap) vaccine, adult/adolescent) [facility] Office Visit On: 30-Jan-2018 10:36 Encounter Reason: Forms - The patient presents to the office to be evaluate for scooter/wheelchair (see scanned in form filled out). Note for Forms: already had evaluation done by PT, just need PCP signatureDebility pr End: 30-Jan-2018 11:32 esents in [facility]. Sees Dr. Child recently treated [...] for Transition into care: Was admitted to [facility] on Oct 28, 2016 with weakness un [...] deficiency, Rheumatoid arthritis, Blood in stool, Anemia, [place]'s, Anemia [facility] Office Visit On: [...] Nutrition: balanced diet and supplemental vitamins. The pr dical issues the patient is following up [...] The patient does have durable power of assistant attorney general and living will. The patient has noticed nothing from the geriatic depression scale. Other providers contributing to the patient's care a re gastrologist ( [facility] in [facility] for colonscopy ), solar installation manager (Dr. Francisco ) and other: (Quality Control Specialist: Dr. Child , Pain Management: Dr. Mcfadden [...] patient does have du rable power of assistant attorney general and living will. The patient has noticed nothing from the geriatic depression scale. Other providers contributing to the patient's care are gastrologist ( @[facility] in [facility] for colonscopy ), solar installation manager (Dr. Francisco ) and other: (Quality Control Specialist: Dr. Child , Pain Management: Dr. Mcfadden [...]
--- OUTSIDE RECORDS SUMMARY | 2018-04-22 10:17 | XMS RPT_ITS | Continuity of Care Document ---
:1945 Author Organization [facility] Address [address] [facility] [address] [place] [address] Phone Care Team Providers Name Role Phone [...] Fede Stent [address] Campa in [place] Status: Active Current nonsmoker (Renamed from Current [...] no vomiting, resoled after stopping trulicity(03/10)Junuvia on kom536cc once daily Rageye exam yearly(12/09/15), catarctekg cardiology Dr Cross, stents 1 in 2003Podiatry: Dr Child [facility], every 3 months, Has multiple toe amputations [...] Comments: Sees pain management Dr. Mcfadden at [facility], she prescribes lyrica, dose increased in [...] toprol BP stable sees Dr. 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 [facility] BP:130-138/78 Status: Active Hypothyroidism (E03.9, 244.9) [...] (M25.569, 719.46) Comments: 1 cc kenalog Lot#: [id number] exp 2 cc marcaine lot#: [id number] exp: right knee has RA and this [...] then weaned off ventilator or sent to [facility] Status: Active Mitral valve stenosis (I05.0, 394.0) Comments: MODERATE: Saw Dr Cross (does not want to see him again, was told needs mitral valve replacement as is not candidate for valvuloplastyNew Dr : DR Kee Campa([place])per pt does not receomemd surgery at this [...] V49.72) Comments: June 2016 Dr. Child, with [facility] Status: Active Ulcer of foot (L97.509, 707.15) [...] for new wheelchair, she will look at [facility] to see what she would like [...] Refills: 2 Ordered:03-Jul-2016 Maxine HINTON, Mayra Lin CNP Mayra George Start : [...] Dempsey MD Start : 19-Jul-2015 Active Comments:E11.9NPI: [phone] PERCOCET, 7.5-325MG (Oral Tablet) 2 (two) Tablet [...] Quantity: 60 {Capsule} Refills: 3 Ordered:17-Oct-2017 Maxine MERCURY WASHER, Mayra Lin MERCURY WASHER, Ivonne Start : 17-Oct-2017 Active Accu-Chek FastClix [...] 31-Mar-2015 End : 01-Apr-2015 Inactive Comments:SSI: 151-200-1 utbv968-461-5 units 892-196-9vmgjy 301-350-4 units 351-400-5 unitsover 400 give 5 [...] for 0 days Refills: 0 Ordered:29-Oct-2012 HARESH Grififn End : 29-Oct-2012 Inactive OMEPRAZOLE, 40MG (Oral [...] me sick as a dog Vitamin D3 18630 UNIT Oral Capsule 1 (one) Capsule once a week for 60 days Quantity: 8 {Capsule} Refills: 0 Ordered:15-Dec-2015 Rafael Thomas MD Start : 15-Dec-2015 End : 13-Feb-2016 Inactive ZOLPIDEM TARTRATE, 10MG (Oral Tablet) 1 Tablet qhs prn for 0 days Quantity: 30 {Tablet} Refills: 3 Ordered:31-Mar-2015 HARESH Griffin Start : 03-Nov-2013 End : 31-Mar-2015 Inactive Comments:thirty ZOSTAVAX, 69690NWV/0.65ML (Subcutaneous Solution Reconstituted) uad For Solution one [...] - PT Result: Comments: See Note; NOTES: [facility] [address] [place] [address] Fax REHABILITATION SERVICES INITIAL EVALUATION MR#: [id number] Acct: [id number] Name: TIA SERVIN Rep #: [id number] : 1945 72 From: Juanis Sanchez DPT Referring Dr.: Mayra Goodman JAVA LEAD Status: REG RCR Insurance: MEDICARE PART A B [facility] Patient's Visit Information TIA SERVIN [...] Scap: poor, Shoulder: 4-/5 throughout Elbow: 4-/5 Recoater: poor - Goa ls Goal 1:: Patient [...] to be FAXED BACK to us at [phone] for Medicare purposes. Please let me know if there are questions or concerns regarding this plan of care. Physician Signature: Date: <Electronically signed by Juanis Sanchez DPT> 12/17/17 10 38 CC: Mayra Goodman NP ELR Signed For Medicare only, by signing this I certify the plan of care. Physicians Signature Date 05-Jan-2016 Stress Test Echo w/ Contrast Result: Comments: See Note; NOTES: [facility] Cardiovascular Services [address] [place] [address] Verdana 4d Stress Test Echo w/o Contrast MR#: [id number] Acct: [id number] Name: TIA MACARIO Rep #: [id number] : 1945 70 From: Pawan Cross MD [...] 30.00 DOBUTAMINE STAGE 4 1:12 12 5 151/55183.00 BASELINE 88 141/55 Stress Duration: 10:12 mm:ss [...] noted. abnormalities noted. EKG Data The basel [facility] ECG displays normal sinus rhythm. During dobutamine [...] D ictated: 01/05/16 1037 Date Transcribed: 01/05/161603 Pharmacy Buyer: Signed 18-Nov-2015 Emergency Department Summary Result: Comments: See Note; NOTES: [facility] Medical Records Department [address] [place] [address] Emergency Department Summary MR#: [id number] Acct: [id number] Name: JC SERVIN Rep #: [id number] : 1945 70 From: Jose Mccain MD [...] Charcot. Jose Mccain M.D. T: NTS JOB: [id number] 11/18/15 0739 <Electronically signed by Jose Mccain MD> Date Jose Mccain MD Cosigner Signature (If Indicated): Date CC: Rafael Thomas Date Dictated: 11/10 Date Transcribed: 11/11/151715 Pharmacy Buyer: Signed 11-Nov-2015 Discharge Instruction Result: Comments: See Note; NOTES: [facility] Medical Records Department [address] [place] [address] Discharge Instruction 11/11/15 1451 MR#: [id number] Acct: [id number] Name: TIA SERVIN Rep #: [id number] : 1945 70 From: Jose Mccain MD [...] any unexpected problems, contact your doctor. Call [facility] ([phone]) or report to [facility] Emergency Room. Call 911 if necessary. 11/11/15 8182 <Electronically signed by Jose Mccain MD> Date Jose Mccain MD Cosigner Signature (If Indicated): Date CC: Rafael Thomas 11-Nov-2015 Ankle min 3 Views Result: Comments: See Note; NOTES: [facility] Imaging Services [address] [place] [address] Verdana 4d Ankle min 3 Views MR#: [id number] Acct: [id number] Name: TIA SERVIN Rep #: [id number] : 1945 F 70 From: Clemencia Holden MD PCP: Rafael Thomas Status: [facility] ER Study: Ankle min 3 Views Date of Exam: 11/11/15 Exam# [id number] Ordering Dr: Jose Mccain MD STUDY: X-RAY [...] MD at 14:20 EDT , Service support [phone], CC: Jose Mccain; Rafael Thomas Pharmacy Buyer: Signed 11-Nov-2015 Foot min 3 Views Result: Comments: See Note; NOTES: [facility] Imaging Services [address] [place] [address] Verda 4d Foot min 3 Views MR#: [id number] Acct: [id number] Name: TIA SERVIN Rep #: [id number] : 1945 F 70 From: Clemencia Holden MD PCP: Rafael Thomas Status: [facility] Study: Foot min 3 Views Date of Exam: 11/11/15 Exam# [id number] Ordering Dr: Jose Mccain MD STUDY: X-RAY [...] MD at 14:26 EDT cf, Service support [phone], CC: Jose Mccain; Rafael Thomas Pharmacy Buyer: Signed 08-Nov-2015 PT D/C Summary (1) Result: Comments: See Note; NOTES: [facility] [address] [place] [address] Fax REHABILITATION SERVICES DISCHA RGE SUMMARY MR#: [id number] Acct: [id number] Name: TIA SERVIN Rep #: [id number] : 1945 70 From: Laura Wright PT, Cert. MDT Referring Dr.: OUT OF [facility] DOCTOR Status: REG RCR Insurance: MEDICARE PART A B [facility] - PT D/C Summary It [...] TO FOLLOW UP WITH DR. LAY IN [place] SUNDAY. SHE REPORTS SHE DOES NOT WANT [...] Rowe PTT> 11/08/15 1035 CC: MISBAH STRONG; Rafael Thomas; OUT OF TOWN DOCTOR JH Signed 27-Oct-2015 Inital Evaluation (1) - PT Result: Comments: See Note; NOTES: [facility] [address] [place] [address] Fax REHABILITATION [facility] INITIAL EVALUATION MR#: [id number] Acct: [id number] Name: TIA SERVIN Rep #: [id number] : 1945 70 From: Cert. MACARIO Rowe PTT Referring Dr.: Georgi Lay MD Status: R EG RCR Insurance: MEDICARE PART A B [facility] Patient's Visit Information TIA SERVIN is [...] THE HOSPITAL ANOTHE WEEK AND THEN A [facility] FOR A MONTH TO TRY TO GET HER STRENGTH BACK. PATIENT REPORTS SHE ALSO HAS A HISTORY OF LUMBAR PRO BLEMS AND THEY ARE WORSENING. Recent major surgery: RENETTA LE TOE AMPUTATIONS AND OPEN SORES ON TOES CURRENTLY. HEART CATH/STENTS. RA AND OA. SOCIAL: LIVES ALONE. 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 OTHER: PATIENT REPORTS SHE DOES NOT DO WELL IN THERAPY. SHE STATES IT USUALLY CAUSES TOO MUCH PAIN. I ACHE SO BAD WHEN I DO THERAPY. PATIENT REPORTS THEY PUT HER IN THERAPY AT THE [facility] AND S HE COULDN'T DO MUCH. - [...] to be FAXED BACK to us at [phone] for Medicare purposes. Please let m e [...] PT (1) Result: Comments: See Note; NOTES: [facility] [address] [place] [address] Fax REEVALUATION / ME DICARE RECERTIFICATION [place] 4d PHYSICAL THERAPY MR#: [id number] Acct: [id number] Name: TIA SERVIN Rep #: [id number] : 1945 70 From: Laura Wright PT, CertWinston SORTOT Referring Dr.: Wandy Lay MD Status: REG RCR Insurance: MEDICARE PART A B [employer] Georgi Lay MD, It has been my [...] do not hesitate to contact me at [phone] by phone or if you have questions or concerns regarding this new plan of care! Sincerely, Laura Wright <Electronically signed by Laura Wright PT, CertWinston SORTOT> 10/07/15 0900 CC: Georgi Lay MD; Rafael Thomas DT: JH Signed For Medicare only, by signing this I certify the plan of care. Physicians Signature Date 24-Aug-2015 NCS and/or EMG Patient Result: Comments: See Note; NOTES: [facility] Pulmonary Services/Neurology [address] [place] [address] NCS and/or EMG Patient MR#: [id number] Acct: [id number] Name: TIA MARTINEZ Rep #: [id number] : 1945 70 From: Jakob Pino MD [...] median mononeuropathy. This is consistent with a ncrt-bm-fwvszhqo right carpal tunnel syndrome. 2. Electrodiagnostic findings demonstrate acute right-sided C5 radiculopat hy. If there are any questions in regards to this exam, please do not hesitate to contact me. Jakob Pino MD T: NTS JOB: [id number] 08/24/15 1521 <Electronically signed by Jakob Pino MD> Date Jakob Pino MD CC: Jakob Pino; Katelyn Dempsey MD Date Dictated: 08/18/151257 Date Transcribed: 08/18/151257 Pharmacy Buyer: Signed 20-Jul-2015 Renal Artery Duplex Result: Comments: See Note; NOTES: [facility] Cardiovascular Services [address] [place] [address] Renal Artery Duplex Ultrasound 07/20/15 0853 MR#: [id number] Acct: [id number] Name: TIA SERVIN Rep #: [id number] : 1945 70 From: Martinez Faulkner MD [...] Dictated: 07/20/15 0853 Date Transcribed: 07/20/15 1210 Pharmacy Buyer: Signed 20-Jul-2015 Kidney and Bladder Result: Comments: See Note; NOTES: [facility] Imaging Services [address] [place] [address] Verdana 4d Kidney and Bladder MR#: [id number] Acct: [id number] Name: TIA SERVIN Rep #: [id number] : 1945 F 70 From: Arabella Peace MD PCP: Katelyn Dempsey MD Status: REG CLI Study: Kidney and Bladder Date of Exam: 07/20/15 Exam# [id number] Ordering Dr: Katelyn Dempsey MD STUDY: RENAL [...] MD at 13:01 EDT , Service support [phone], CC: Katelyn Dempsey MD Pharmacy Buyer: Signed 20-Jul-2015 Brain W/WO Contrast Result: Comments: See Note; NOTES: [facility] Imaging Services [address] [place] [address] Verdana 4d Brain W/WO Contrast MR#: [id number] Acct: [id number] Name: TIA SERVIN Rep #: [id number] : 1945 F 70 From: Arabella Peace MD PCP: Katelyn Dempsey MD Status: REG CLI Study: Brain W/WO Contrast Date of Exam: 07/20/15 Exam# [id number] Ordering Dr: Moe Dempsey MD STUDY: MRI [...] MD at 12:28 EDT , Service support [phone], CC: Katelyn Dempsey MD Pharmacy Buyer: Signed 20-Jul-2015 Spine Cervical (Routine) Result: Comments: See Note; NOTES: [facility] Imaging Services [address] [place] [address] Verdana 4d Spine Cervical (Routine) MR#: [id number] Acct: [id number] Name: TIA ANDRADE Rep #: [id number] : 1945 F 70 From: Arabella Peace MD PCP: Katelyn Dempsey MD Status: REG CLI Study: Spine Cervical (Routine) Date of Exam: 07/20/15 Exam# [id number] Ordering Dr: Katelyn Irby MD STUDY: MRI [...] at 11:49 ED T , Service support [phone], CC: Katelyn Dempsey MD Pharmacy Buyer: Signed 17-Jun-2015 Echocardiogram Complete Result: Comments: See Note; NOTES: [facility] Cardiovascular Services [address] [place] [address] Echo Complete 06/17/15 0753 MR#: [id number] Acct: [id number] Name: TIA ANDRADE Rep #: [id number] : 1945 70 From: Pawan Cross MD [...] Date Dictated: 06/17/15 0753 Date Transcribed: 06/17/151056 Pharmacy Buyer: Signed 04-Mar-2015 Brain/Head without Contrast Result: Comments: See Note; NOTES: [facility] Imaging Services [address] [place] [address] Verdana 4d Brain/Head without Contrast MR#: [id number] Acct: [id number] Name: TIA SERVIN Rep #: [id number] : 1945 F 69 From: Kahlil Waters PCP: Roselyn SOTRO,Katelyn Status: REG ER Study: Brain/Head without Contrast Date of Exam: 03/04/15 Exam# [id number] Esteban rivera Dr: Oleg Nash MD STUDY: [...] 0 at 3:47 EST , Service support [phone], CC: Katelyn Dempsey MD; Oleg Nash M.D. 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 [place], [place], [id number] Absolute Lymph 1.06 {X10_3/ul} (Normal) Range: 0.83-4.51 [...] 4.2-5.4 WBC 6.4 K/mm3 (Normal) Range: 4.4-11.0 6-Stv-134185:11 Comprehensive Metabolic Profil Comments: [facility] [address] [place], [address] GAP 14 (Normal) Range: 5-15 CO2 24.0 [...] criteria.Please note revised GLUCOSE reference range /02/2018. 32-Sva-857283:01 HgA1C , Office (42516) Comments: 5.8 HgA1C , Office 5.8 % (Normal) Range: 4.6 - 7.1 87-Dib-410218:00 Blood Glucose , Office (46315) Comments: 99 Blood Glucose , Office 99 (Normal) 13-Ozu-81842:19 Comprehensive Metabolic Profil Comments: [facility] [address] [place], [address] GAP 11 (Normal) Range: 5-15 CO2 26.0 [...] reference range /02/2018. :19 Hemoglobin A1c Comments: [facility] [address] [place], [id number] HGB A1C 5.6 % (Normal) Range: 4.2-6.3 78-Ldt-64096:19 Thyroid Stim Hormone (TSH) Comments: [facility] [address] [place], [id number] TSH 2.33 {uIU/mL} (Normal) Range: 0.358-3.74 :19 Vitamin D,25 Hydroxy Comments: [facility] [address] [place], [address] Vitamin D 25-OH 37.3 ng/mL (Normal) Range: 29.95-100.01 Comments: Vitamin D 25(OH) Status Range Deficiency <20 ng/mL (50nmol/L) Insuffciency 20 - 30 ng/mL (50 - 75 nmol/L) Sufficiency 30 - 100 ng/mL (75 - 250 nmol/L) Toxicity >100 ng/mL (>250 nmol/L) 72-Ndp-015191:01 CBC W/Diff, Automated Comments: [facility] [address] [place], [address] Absolute Lymph 1.26 {X10_3/ul} (Normal) Range: 0.83-4.51 [...] 4.2-5.4 WBC 7.4 K/mm3 (Normal) Range: 4.4-11.0 05-Rlp-605066:01 Comprehensive Metabolic Profil Comments: [facility] [address] [place], [place], [address] GAP 10 (Normal) Range: 5-15 CO2 25.0 [...] A.D.A. criteria.Please note revised GLUCOSE reference range tetvldndx60/02/2018. 32-Ffn-985601:34 CALCIFEDIOL (94943) Comments: PATIENT NOT FASTINGPERFORMED BY: [facility] System[facility]nek[facility]058 [facility] [id number] Vitamin D, 25-Hydroxy 30.2 ng/mL (Normal) Range: 30.0-100.0 Comments: Vitamin D deficiency has been defined by the [facility] of[facility] and an Endocrine Society practice guideline as alevel of serum 25-OH vitamin D less than 20 ng/mL (1,2).The Endocrine Society went on to further define vitamin Dinsufficiency as a level between 21 and 29 ng/mL (2).1. IOM (Deaver of Medicine). 2010. Dietary reference intakes for calcium and D. [place]: The National Academies Press.2. Brandon MF, Bakari BOYD, Vicente IZAGUIRRE, et al. Evaluation, treatment, and prevention of vitamin D deficiency: an Endocrine Society clinical practice guideline. JCEM. 2010; 96(7):1911-30. 25-Jul-20179:41 Comprehensive Metabolic Profil Comments: [facility] [address] [place], [place], [address] GAP 10 (Normal) Range: 5-15 CO2 24.0 [...] A.D.A. criteria.Please note revised GLUCOSE reference range hdsegzjbi87/02/2018. :41 Hemoglobin A1c Comments: [facility] [address] [place], [place], [address] HGB A1C 5.8 % (Normal) Range: 4.2-6.3 :41 Lipid Profile Comments: [facility] [address] [place], [place], [address] VLDL 45 mg/dL (Abnormal) Range: 5-40 LDL [...] High Risk 25-Jul-20179:41 Microalb:Creat Ratio,Random UR Comments: [facility] [address] [facility] [address] [place], [place], [address] MALB:CREAT 14.8 {mg/g_CRE} (Normal) MICROALBUMIN,UR 46.0 mg/L (Normal) UR CREAT 310.00 mg/dL (Normal) 25-Jul-20179:41 Thyroid Stim Hormone (TSH) Comments: [facility] [address] [place], [place], [address] TSH 1.96 {uIU/mL} (Normal) Range: 0.358-3.74 63-Hoj-177626:18 CBC W/Diff, Automated Comments: [facility] [address] [facility] [address] [place], [place], [address] Absolute Lymph 1.08 {X10_3/ul} (Normal) Range: 0.83-4.51 [...] 4.2-5.4 WBC 4.7 K/mm3 (Normal) Range: 4.4-11.0 81-Ebk-128902:18 Comprehensive Metabolic Profil Comments: [facility] [address] [place], [address] GAP 7 (Normal) Range: 5-15 CO2 26.0 mmol/L (Normal) Range: 21.0-32.0 CL 107 mmol/L (Normal) Range: 98-107 K 4.8 mmol/L (Normal) Range: 3.5-5.1 NA 140 mmol/L (Normal) Range: 136-145 T BILI 0.60 mg/dL (Normal) Range: 0.20-1.00 ALT 16 U/L (Normal) Range: 13-56 Comments: Please note revised ALT reference range ztkftulfi07/28/2018. ALK P 63 U/L (Normal) Range: 45-117 [...] A.D.A. criteria.Please note revised GLUCOSE reference range lpopbprhz19/02/2018. 8-Ifr-489191:40 CALCIFEDIOL (22217) Comments: PATIENT NOT FASTINGPERFORMED BY: [facility] SystemRvqogj4462 [facility] [id number] Vitamin D, 25-Hydroxy 31.0 ng/mL (Normal) Range: 30.0-100.0 Comments: Vitamin D deficiency has been defined by the Deaver ofMedicine and an Endocrine Society practice guideline as alevel of serum 25-OH vitamin D less than 20 ng/mL (1,2).The Endocrine Society went on to further define vitamin Dinsufficiency as a level between 21 and 29 ng/mL (2).1. IOM (Deaver of Medicine). 2010. Dietary reference intakes for calcium and D. [place]: The National Academies Press.2. Brandon MF, Bakari [place], Vicente IZAGUIRRE, et al. Evaluation, treatment, and prevention of vitamin D deficiency: an Endocrine Society clinical practice guideline. JCEM. 2010; 96(7):1911-30. 8-Hfv-517731:20 Crystals, Body Fluid Comments: [facility] [address] [place], [address] PATH REV Reviewed (Normal) Comments: Negative for malignant cells and crystals.Acute inflammation.Clinical correlation necessary.Jacinto Herrera M.D. 03/28/17 AMENDED REPORT 03/28/17 1357 PATH REV previously reported as: Will follow SOURCE/BF SYNOVIAL (Normal) CRYSTALS/BF SEE PATH REV (Normal) 8-Uwc-729482:20 Culture, Body Fluid Comments: [facility] [address] [place], [place], [address] ; dr redd ALASF See Note (Normal) [...] DAYS Cult, AnaerobicNo growth in 5 days. 5-Fkf-708421:20 Synovial Fluid RBC, WBC AND Comments: [facility] [address] [place], [place], [address] ; dr rainey Diff PATH COM/SYFL May [...] Comments: YELLOW/RED SYNOVIAL SOURCE RIGHT KNEE (Normal) 92-Uak-73725:53 CBC W/Diff, Comments: PLEASE FAX RESULTS TO [id number] PT REQUEST.[facility] [address] [facility] [place], [place], [address] ; dr barba Automated Absolute Lymph 0.89 [...] 4.2-5.4 WBC 6.3 K/mm3 (Normal) Range: 4.4-11.0 64-Qep-52603:53 Comprehensive Comments: PLEASE FAX RESULTS TO [id number] PT REQUEST.[facility] [address] [facility] [address]. [place], [place], [address] Metabolic Profil GAP 10 (Normal) Range: 5-15 [...] Hemoglobin A1c Comments: PLEASE FAX RESULTS TO [id number] PT REQUEST.[facility] [address]10[address] [facility] [address] [place], [place], [address] HGB A1C 6.9 % (Abnormal) Range: 4.2-6.3 :53 Lipid Profile Comments: PLEASE FAX RESULTS TO [id number] PT REQUEST.[facility] [address] [place], [place], [address] VLDL 29 mg/dL (Normal) Range: 5-40 LDL [...] 200-240 mg/dL Borderline >240 mg/dL High Risk 45-Usn-21444:53 Thyroid Stim Comments: PLEASE FAX RESULTS TO [id number] PT REQUEST.[facility] [address] [facility] [address]. [place], [place], [address] Hormone (TSH) TSH 1.69 {uIU/mL} (Normal) Range: 0.358-3.74 89-Vzv-577545:59 HgA1C , Office (68634) HgA1C , Office 6.4 % (Normal) Range: 4.6 - 7.1 12-Cbq-761502:59 Blood Glucose , Office (08636) Blood Glucose , Office 213 (Normal) 85-Lhq-467634:27 CBC W/Diff, Automated Comments: SHARE RESULTS WITH DERRICK FOR [facility] [address] [place], [place], [address] Absolute Lymph 1.20 {X10_3/ul} (Normal) Range: 0.83-4.51 [...] 4.2-5.4 WBC 6.1 K/mm3 (Normal) Range: 4.4-11.0 07-Enu-871818:27 Comprehensive Metabolic Profil Comments: SHARE RESULTS WITH DERRICK FOR [facility] [address] [place], [place], [address] GAP 11 (Normal) Range: 5-15 CO2 23.0 [...] 200 mg/dLsuggests DIABETES MELLITUS per A.D.A. criteria. 02-Fbe-041369:05 Comprehensive Metabolic Profil Comments: [facility] [address] [place], [address] GAP 9 (Normal) Range: 5-15 CO2 24.0 [...] 126 mg/dLsuggests DIABETES MELLITUS per A.D.A. criteria. 60-Jha-557920:05 Hemoglobin A1c Comments: [facility] [address] [place], [address] HGB A1C 6.7 % (Abnormal) Range: 4.2-6.3 27-Nko-506138:05 Thyroid Stim Hormone (TSH) Comments: [facility] [address] [place], [address] TSH 3.02 {uIU/mL} (Normal) Range: 0.358-3.74 29-Oxf-883106:05 Vitamin D,25 Hydroxy Comments: [facility] [address] [place], [address] Vitamin D 25-OH 23.5 ng/mL (Normal) Comments: Vitamin D 25(OH) Status Range Deficiency <20 ng/mL (50nmol/L) Insuffciency 20 - 30 ng/mL (50 - 75 nmol/L) Sufficiency 30 - 100 ng/mL (75 - 250 nmol/L) Toxicity >100 ng/mL (>250 nmol/L) 76-Gnh-186972:56 HgA1C , Office (24394) HgA1C , Office 6.3 % (Normal) Range: 4.6 - 7.1 :56 Blood Glucose , Office (81908) Blood Glucose , Office 194 (Normal) 35-Kom-542709:37 CBC W/Diff, Automated Comments: [facility] [address] [place], [address] ; another doc Absolute Lymph 1.29 {X10_3/ul} [...] 4.2-5.4 WBC 7.6 K/mm3 (Normal) Range: 4.4-11.0 27-Zrd-904400:37 Comprehensive Metabolic Profil Comments: [facility] [address] [place] [place], [address] GAP 7 (Normal) Range: 5-15 CO2 29.0 [...] 126 mg/dLsuggests DIABETES MELLITUS per A.D.A. criteria. 59-Qmb-87900:37 Basic Metabolic Profile Comments: Order Date: 12/03/15DRKARLA KEE LIVER,LIPIDDR.DERRICK KEE BMPInterface Comments: 12 hours fasting, may have water.Order Date: 12/03/15[facility] Hbcrgzwisd4182 [place], [place], [id number] (BMP) GAP 4 (Abnormal) Range: 5-15 CO2 [...] Lipid Profile Comments: Order Date: 12/03/15 WANTS LIVER,LIPIDDR.FELIPENATHAN WANTS BMPInterface Comments: 12 hours fasting, may have water.Order Date: 12/03/15[facility] Zfwiwqcpcw7744 [address] Driver [place], [place], [address] VLDL 18 mg/dL (Normal) Range: 5-40 LDL [...] 12 hours fasting, may have water.Order Date: 12/03/15[facility] Msroxumley9764 Norma GuevaraWinston [place], [place], [address] D BILI 0.11 mg/dL (Normal) Range: 0.00-0.30 T BILI 0.40 mg/dL (Normal) Range: 0.20-1.00 ALT 14 U/L (Normal) Range: 12-78 ALK P 47 U/L (Normal) Range: 45-117 AST 12 U/L (Abnormal) Range: 15-37 GLOB 3.3 g/dL (Normal) Range: 2.3-3.5 ALB 2.8 g/dL (Abnormal) Range: 3.4-5.0 T PROT 6.1 g/dL (Abnormal) Range: 6.4-8.2 :40 HgA1C , Office (80344) HgA1C , Office 6.1 % (Normal) Range: 4.6 - 7.1 :40 Blood Glucose , Office (91733) Blood Glucose , Office 208 (Normal) :45 Culture, Body Fluid Comments: [facility] Oowirkolix7695 [place], [address] CUBF See Note (Normal) Comments: List Antibiotics Last 48 Hours? UNKList Antibiotics to be Started? UNKComments: SYNOVIAL FLUID LEFT KNEE..Gram StainCentrifuged Specimen? Culture performed on centrifuged specimen Gram Stain 3+ Red Blood Cells 1+ White Blood Cells No organisms seen Body Fluid CultNO GROWTH IN 14 DAYS Cult, AnaerobicNo growth in 5 days. :45 Synovial Fluid RBC, WBC AND Comments: [facility] Adienfjopd3666 [address], [address] Diff PATH COM/SYFL May follow (Normal) MONO [...] Yellow (Normal) SYNOVIAL SOURCE LEFT KNEE (Normal) 97-Pnp-696631:21 CBC W/Diff, Automated Comments: [facility] Mqzwigcfrh4698 [address]. [place], [place], [address] Absolute Lymph 1.21 {X10_3/ul} (Normal) Range: 0.83-4.51 [...] Range: 4.4-11.0 :21 Comprehensive Metabolic Profil Comments: [facility] Jzybsnrayw9358 [address]a. [place], [place], [address] GAP 8 (Normal) Range: 5-15 CO2 23.0 [...] <126 mg/dLsuggests IMPAIRED HOMEOSTASIS per A.D.A. criteria. 9-Qzu-456524:31 CBC W/Diff, Automated Comments: [facility] Ykkdqtdvrp7942 [address]. [place], [place], [address] Absolute Lymph 1.21 {X10_3/ul} (Normal) Range: 0.83-4.51 [...] 4.2-5.4 WBC 8.5 K/mm3 (Normal) Range: 4.4-11.0 1-Hrw-356555:31 Comprehensive Metabolic Profil Comments: [facility] Ckgdpokqsd[address] [place], [place], [address] GAP 9 (Normal) Range: 5-15 CO2 27.0 [...] 126 mg/dLsuggests DIABETES MELLITUS per A.D.A. criteria. 4-Sdu-421867:49 Blood Glucose , Office (63251) Blood Glucose , Office 219 (Normal) 3-Zhj-939820:49 HgA1C , Office (83561) HgA1C , Office 7.5 % (Abnormal) Range: 4.6 - 7.1 34-Bqg-853795:27 C-Peptide Comments: [facility] (refer to report for specific site)refer to report for address and phone number C PEPTIDE 26297 7.0 ng/mL (Abnormal) Range: 1.1-4.4 Comments: C-Peptide reference interval is for fasting patients.Performed at: [address] [id number] Director: Lex Lai PhD, Phone: [phone] :[phone] CBC W/Diff, Automated Comments: [facility] Tglccfzfyt4022 Norma [facility] [place], [address] ANISO 1+ (Normal) Absolute Lymph [...] 4.2-5.4 WBC 8.3 K/mm3 (Normal) Range: 4.4-11.0 18-Bej-342853:27 Comprehensive Metabolic Profil Comments: [facility] Psxdpfrdcd0612 [place], [address] GAP 9 (Normal) Range: 5-15 CO2 25.0 [...] per A.D.A. criteria. :27 Hemoglobin A1c Comments: [facility] Yksqmolcuf6504 [place], [address] HGB A1C 7.5 % (Abnormal) Range: 4.2-6.3 :27 Microalb:Creat Ratio,Random UR Comments: [facility] Ondgiepqaq9[address] [place], [address] MALB:CREAT 6.7 {mg/g_CRE} (Normal) MICROALBUMIN,UR 9.6 mg/L (Normal) UR CREAT 144.00 mg/dL (Normal) :27 Miscellaneous Lab Procedure Comments: Test(s) Ordered: ISLET CELL ANTIBODY [id number] SERUM/[facility] Zzgtgfkqdk7979 [place], [address] MISC Comments: TEST RESULT UNITS REFERENCE INTERVALAntipancreatic Islet Cells Negative Neg:<1:1 TEST LAB (Normal) ING PERFORMED AT [facility]. ORIGINAL REPORT ON FILE IN LAB CONTAINS ADDITIONAL TEST SITE INFORMATION. TEST :25 HAPTOGLOBIN (72636) Comments: PATIENT NOT FASTINGPERFORMED BY: [facility]6370 [facility] [id number] Haptoglobin 259 mg/dL (Abnormal) Range: 34-200 :25 SPEP (08346) Comments: PATIENT NOT FASTINGPERFORMED BY: [facility]6370 [facility] [id number] Please note: SPRCS (Normal) Comments: Protein electrophoresis scan will follow via computer, mail, orcourier delivery. A/G Ratio 0.9 (Normal) Range: 0.7-1.7 Globulin, Total 3.4 g/dL (Normal) Range: 2.2-3.9 M-Anam Not Observed g/dL (Normal) Gamma Globulin 0.8 g/dL (Normal) Range: 0.4-1.8 Beta Globulin 1.2 g/dL (Normal) Range: 0.7-1.3 Wvqah-5-Hiwinjjv 1.1 g/dL (Abnormal) Range: 0.4-1.0 Nfqcx-4-Mqqjizkm 0.3 g/dL (Normal) Range: 0.0-0.4 Albumin 3.2 g/dL (Normal) Range: 2.9-4.4 Protein, Total, Serum 6.6 g/dL (Normal) Range: 6.0-8.5 :25 UPEP (31000) Comments: PATIENT NOT FASTINGPERFORMED BY: [facility]6370 [facility] [id number] Please note: SPRCS (Normal) Comments: Protein electrophoresis scan will follow via computer, mail, orcourier delivery. M-Anam, % Not Observed % (Normal) Gamma Globulin, U 10.2 % (Normal) Beta Globulin, U 22.4 % (Normal) Kzqvq-1-Eepagxxl, U 9.8 % (Normal) Gckar-0-Lmexdsvx, U 1.8 % (Normal) Albumin, U 55.8 % (Normal) Protein,Total,Urine 42.4 mg/dL (Normal) 39-Lnb-761605:25 RETICULOCYTE COUNT [facility] Comments: PATIENT NOT FASTINGPERFORMED BY: [facility]CoCentraState [facility] SystemRlpseh0663 [facility] [id number] (72913) Reticulocyte Count 2.0 % (Normal) Range: 0.6-2.6 85-Loe-475883:25 IRON BINDING CAPACITY (TIBC) Comments: PATIENT NOT FASTINGPERFORMED BY: [facility] SystemJyttva2324 [facility] [id number] (69291) Iron Saturation 4 % (Abnormal) Range: 15-55 Iron, Serum 14 ug/dL (Abnormal) Range: 27-139 UIBC 372 ug/dL (Abnormal) Range: 118-369 Iron Bind.Cap.(TIBC) 386 ug/dL (Normal) Range: 250-450 :25 FERRITIN (89805) Comments: PATIENT NOT FASTINGPERFORMED BY: [facility]Co[facility] SystemKdhiso7875 [facility] [id number] Ferritin, Serum 19 ng/mL (Normal) Range: 15-150 06-Wxo-125410:25 CBC, PLATELETS & AUT DIFF Comments: PATIENT NOT FASTINGPERFORMED BY: [facility] Swcywz4335 [facility] [id number] Information: [id number] (48727) Immature Grans (Abs) 0.0 {x10E3/uL} (Normal) Range: [...] (Normal) Range: 3.4-10.8 :32 HgA1C , Office (32332) HgA1C , Office 8.2 % (Abnormal) Range: 4.6 - 7.1 :16 CBC W/Diff, Automated Comments: DR.N THOMAS ORDERED TSH LIPID VITD CBCD B12 FOLOTES CMP MIACREDRKARLA ORDERED LIPID LIVERDR.MARYAM ORDERED CMP CBCDWSt. [facility] Mmscnigvjq5760 [place], [place], [phone] OVALOCYTE 1+ (Normal) BASO STIP RARE (Normal) [...] Patient Taking Vitamins or Folic Acid Supplements? [facility]1761 [place], [address] GAP 9 (Normal) Range: 5-15 CO2 26.0 [...] Patient Taking Vitamins or Folic Acid Supplements? [facility]1761 [place], [address] FOLATES 11.20 ng/mL (Normal) Range: 3.1-17.5 :16 Lipid Profile Comments: DR.N THOMAS ORDERED TSH LIPID VITD CBCD B12 FOLOTES [facility] RAMESH.VICENTE ORDERED LIPID LIVERDR.MARYAM ORDERED CMP CBCDIs Patient Taking Vitamins or Folic Acid Supplements? [facility]1761 [address] [place], [place], [address] VLDL 32 mg/dL (Normal) Range: 5-40 LDL [...] ORDERED TSH LIPID VITD CBCD B12 FOLOTES [facility] LUCÍA ORDERED LIPID LIVERDR.MARYAM ORDERED [facility] CBCD[facility] Jemycjnshu1011 [address] [place], [place], [address] MALB:CREAT 7.5 {mg/g_CRE} (Normal) MICROALBUMIN,UR 10.1 mg/L (Normal) UR CREAT 135.00 mg/dL (Normal) :16 Thyroid Stim Hormone (TSH) Comments: DR.N THOMAS ORDERED TSH LIPID VITD CBCD B12 FOLOTES [facility] LUCÍA ORDERED LIPID LIVERDR.MARYAM ORDERED CMP CBCDIs Patient Taking Vitamins or Folic Acid Supplements? [facility] La jhrfwidf6060 Norma [place], [place], [address] TSH 1.90 {uIU/mL} (Normal) Range: 0.358-3.74 :16 Vitamin B12 324 pg/mL (Normal) Comments: DR.N THOMAS ORDERED TSH LIPID VITD CBCD B12 FOLOTES [facility] LUCÍA ORDERED LIPID LIVERDR.MARYAM ORDERED [facility] CBCDFair[facility] Xecpcdggtv7973 [address] [place], [place], [address] Range: 211-911 :16 Vitamin D,25 Hydroxy Comments: DR.N THOMAS ORDERED TSH LIPID VITD CBCD B12 FOLOTES [facility] LUCÍA ORDERED LIPID LIVERDR.MARYAM ORDERED [facility] CBCChillicothe [facility] Iuspeqtjiv3316 [place], [phone] Vitamin D 25-OH 24.7 ng/mL (Normal) Comments: Vitamin D 25(OH) Status Range Deficiency <20 ng/mL (50nmol/L) Insuffciency 20 - 30 ng/mL (50 - 75 nmol/L) Sufficiency 30 - 100 ng/mL (75 - 250 nmol/L) Toxicity >100 ng/mL (>250 nmol/L) 0-Eqq-805277:25 OVA & PARASITE DIR SMEAR Comments: PATIENT NOT FASTINGPERFORMED BY: PulselockerSaint [facility] Gapakc7848 [facility] [id number] (16055) Result 1 NOCP (Normal) Comments: No ova, cysts, or parasites seen. Ova + Parasite Exam Final report (Normal) Comments: These results were obtained using wet preparation(s) and trichromestained smear. This test does not include testing for Cryptosporidiumparvum, Cyclospora, or Microsporidia. :25 OCCULT BLOOD FECES SCREEN Comments: PATIENT NOT FASTINGPERFORMED BY: LabSaint [facility] Mjzjqn3156 [facility] [id number] (81982) Occult Blood, Fecal, IA Positive (Abnormal) :25 LEUKOCYTE COUNT, FECAL (94721) Comments: PATIENT NOT FASTINGPERFORMED BY: [facility]6370 [facility] [id number] Result 1 NWBC (Normal) Comments: No white blood cells seen. White Blood Cells (WBC), Final report (Normal) Stool :24 C-DIFFICILE, STOOL (18215) Comments: PATIENT NOT FASTINGPERFORMED BY: [facility]6370 [facility] [id number] Information: [id number] C difficile Toxins A+B, EIA Negative (Normal) :25 LAINE CULTURE-STOOL (26707) Comments: PATIENT NOT FASTINGPERFORMED BY: [place] 4776570 [facility] [id number] Information: SRC:STL [id number] E coli Shiga Toxin EIA Negative (Normal) Result 1 NCI (Normal) Comments: No Campylobacter species isolated. Campylobacter Culture Final report (Normal) Result 1 NSS (Normal) Comments: No Salmonella or Shigella recovered. Salmonella/Shigella Screen Final report (Normal) :22 Blood Glucose , Office (37030) Blood Glucose , Office 191 (Normal) :22 HgA1C , Office (61176) HgA1C , Office 7.4 % (Abnormal) Range: 4.6 - 7.1 :19 CBC W/Diff, Automated Comments: [facility] Hzqizjthrh3421 [place], [address] Absolute Lymph 1.86 {X10_3/ul} (Normal) [...] Range: 4.4-11.0 :19 Comprehensive Metabolic Profil Comments: [facility] Saeswcmvsv8343 [address]. [place], [place], [address] GAP 10 (Normal) Range: 5-15 CO2 24.0 [...] 126 mg/dLsuggests DIABETES MELLITUS per A.D.A. criteria. 37-Wvp-051054:50 CALCIFEDIOL (91298) Comments: PATIENT NOT FASTINGPERFORMED BY: [facility]6370 [facility] [id number] Vitamin D, 25-Hydroxy 20.8 ng/mL (Abnormal) Range: 30.0-100.0 Comments: Vitamin D deficiency has been defined by the [place] ofMedicine and an Endocrine Society practice guideline as alevel of serum 25-OH vitamin D less than 20 ng/mL (1,2).The Endocrine Society went on to further define vitamin Dinsufficiency as a level between 21 and 29 ng/mL (2).1. IOM ([place] of Medicine). 2010. Dietary reference intakes for calcium and D. [place]: The National Academies Press.2. Brandon MF, Bakari BOYD, Vicente IZAGUIRRE, et al. Evaluation, treatment, and prevention of vitamin D deficiency: an Endocrine Society clinical practice guideline. JCEM. 2010; 96(7):1911-30. 65-Hdz-839263:50 POTASSIUM SERUM (67166) Comments: PATIENT NOT FASTINGPERFORMED BY: [facility] Dxojsj1660 Forrest RoadDublin [place] [id number] Potassium, Serum 5.4 mmol/L (Abnormal) Range: 3.5-5.2 65-Ikl-941953:50 MAGNESIUM (52532) Comments: PATIENT NOT FASTINGPERFORMED BY: [facility] Pttzzi7162 [address] RoadDublin [place] [id number] Magnesium, Serum 1.8 mg/dL (Normal) Range: 1.6-2.3 :50 AMMONIA (20947) Comments: PATIENT NOT FASTINGPERFORMED BY: [facility]1447 [facility] [id number] BY: [facility] Mbqteq5124 Forrest RoadDublin [place] [id number] Ammonia, Plasma 40 ug/dL (Normal) Range: 19-87 73-Gok-332146:50 SPEP (48390) Comments: PATIENT NOT FASTINGPERFORMED BY: [facility] Hwquky0482 Forrest RoadDublin [place] [id number] Information: [id number] Please note: SPRCS (Normal) Comments: Protein electrophoresis scan will follow via computer, mail, orcourier delivery. A/G Ratio 1.2 (Normal) Range: 0.7-2.0 Globulin, Total 3.0 g/dL (Normal) Range: 2.0-4.5 M-Anam Comment: g/dL (Normal) Comments: [facility] Gamma Globulin 0.6 g/dL (Normal) Range: 0.5-1.6 Beta Globulin 1.0 g/dL (Normal) Range: 0.6-1.3 Iswrl-2-Vslkofoe 1.1 g/dL (Normal) Range: 0.4-1.2 Ssywp-2-Hnpncwgk 0.3 g/dL (Normal) Range: 0.1-0.4 Albumin 3.5 g/dL (Normal) Range: 3.2-5.6 Protein, Total, Serum 6.5 g/dL (Normal) Range: 6.0-8.5 :54 CREATININE CLEARANCE Comments: PATIENT NOT FASTINGPERFORMED BY: MARJAN [facility] NetworksCentraState Healthcare SystemOgspio9344 [facility] [id number] Information: [id number] START 07/18/15@630A M FINISH 07/18@7AM (36657) Creatinine Clearance 57 mL/min (Abnormal) Range: 88-128 [...] Creatinine, Serum 0.75 mg/dL (Normal) Range: 0.57-1.00 29-Sio-385424:54 Total Protein,24 Hour Urine Comments: PATIENT NOT FASTINGPERFORMED BY: MARJAN Radius NetworksCentraState Healthcare SystemPyrdun7250 [facility] [id number]; has fu 07-21 (42781) Prot,24hr calculated 354.6 {mg/24_hr} (Abnormal) Range: 30.0-150.0 Protein,Total,Urine 39.4 mg/dL (Abnormal) Range: 0.0-15.0 Comments: Effective August 02, 2015 the reference interval for Protein, Total, Urine will be changing to: Not Estab. 71-Gtv-953491:45 URINE VMA (58507) Comments: 24 hour urine; PATIENT NOT FASTINGPERFORMED BY: [place] 493367 [facility] [id number] VMA, Urine, 24hr 2.3 {mg/24_hr} (Normal) Range: 0.0-7.5 VMA, Urine 3.3 mg/L (Normal) :50 RENIN (95902) Comments: PATIENT NOT FASTINGPERFORMED BY: [employer] [id number] BY: [employer] Njumzq3561 [facility] [id number] Information: [id number] Renin Activity, Plasma 1.17 {ng/mL/hr} (Normal) Comments: Adult Normal Salt Intake: Upright 1.31 - 3.95 Supine 0.15 - 2. 33 . Salt Excretion (Na mEq/24 hr): Na= 0 - 30 8.82 - 23.86 Na= 30 - 75 4.09 - 7.73 Na= 75 - 150 1.44 - 2.80 Na= >150 0.39 - 1.31 :45 METANEPHRINES - URINE (41229) Comments: PATIENT NOT FASTINGPERFORMED BY: [employer] [address] [id number] Metanephrine, U,24hr 50 {ug/24_hr} (Normal) Range: 45-290 Comments: (Hypertensive) >17 years 11 months: 35 - 460 Metanephrine, Ur 71 ug/L (Normal) Normetanephr.,U,24h 319 {ug/24_hr} (Normal) Range: 82-500 Comments: (Hypertensive) >17 years 11 months: 110 - 1050 Normetanephrine, Ur 455 ug/L (Normal) :45 CATECHOLAMINES TOTAL, URINE Comments: PATIENT NOT FASTINGPERFORMED BY: [employer] [id number] Information: SRC:BATSHEVA [id number] START 07/20@9AM FI NANCY (52436) Dopamine, Ur, 24hr 90 {ug/24_hr} (Normal) Range: 0-510 Dopamine, Urine 128 ug/L (Normal) Norepinephrine,U,24h 48 {ug/24_hr} (Normal) Range: 0-135 Norepinephrine, Ur 68 ug/L (Normal) Epinephrine, U, 24hr 1 {ug/24_hr} (Normal) Range: 0-20 Epinephrine, Urine 2 ug/L (Normal) :50 HgA1C , Office (89347) HgA1C , Office 7.7 % (Abnormal) Range: 4.6 - 7.1 :20 CBC W/Diff, Automated Comments: [facility] [address] [place], [place], [phone] Absolute Lymph 1.40 {X10_3/ul} (Normal) Range: 0.83-4.51 [...] Range: 4.4-11.0 :20 Comprehensive Metabolic Profil Comments: [facility] [address] [place], [place], [address] GAP 8 (Normal) Range: 5-15 CO2 26.0 [...] per A.D.A. criteria. :49 HgA1C , Office (30262) HgA1C , Office 6.6 % (Normal) Range: 4.6 - 7.1 :04 CBC W/Diff, Automated Comments: [facility] Yzuxefuaal2476 [address]. [place], [place], [address] Absolute Lymph 1.54 {X10_3/ul} (Normal) Range: 0.83-4.51 [...] 4.2-5.4 WBC 9.0 K/mm3 (Normal) Range: 4.4-11.0 6-Ffc-698669:04 Comprehensive Metabolic Profil Comments: [facility] Qarvfufzsr6142 Norm[address] [place], [place], [address] GAP 11 (Normal) Range: 5-15 CO2 24.0 [...] <126 mg/dLsuggests IMPAIRED HOMEOSTASIS per A.D.A. criteria. 37-Auw-32518:10 Basic Metabolic Profile (BMP) Comments: Serial Specimen #1, #2 or #3? 1'TROP' Serial specimen #1, #2, #3, or #4: 1[facility] Tovuiuwqob85[address]. [place], [place], [address] GAP 9 (Normal) Range: 5-15 CO2 26.0 [...] A.D.A. criteria. :10 Carboxyhemoglobin Frac (CO) Comments: [facility] [address] [place], [place], [address] COHb 1.3 % (Normal) Range: 0.0-1.5 Comments: * NON-SMOKER RANGE 1.6 - 5.0% * LIGHT SMOKER RANGE 5.1 - 9.0% * HEAVY SMOKER RANGE :10 CBC W/Diff, Automated Comments: [facility] Lulpykisyh[address] [facility] [address] [place], [place], [address] Absolute Lymph 0.87 {X10_3/ul} (Normal) Range: 0.83-4.51 [...] Serial specimen #1, #2, #3, or #4: [address] [place] [address] Ylcmdzecgh1463 [facility] [address]. [place], [place], [address] CKRI 1.9 % (Abnormal) Range: 0.0-1.4 Comments: RELATIVE INDEX >1.5% IS PRESUMPTIVELY POSITIVE CPKMB 1.0 ng/mL (Normal) Range: 0.0-5.0 Comments: CK-MB and RI Interpretation MB Relative Index Non-AMI <or= 5 NA Indeterminate > 5 <or= 4 AMI > 5 > 4 CPK TOTAL 53 U/L (Normal) Range: 26-192 75-Tpl-77461:10 Troponin-I Comments: Serial Specimen #1, #2 or #3? 1'TROP' Serial specimen #1, #2, #3, or #4: [address] [place] [address] [place] [address], [address] TROPONIN-I 0.03 ng/mL (Normal) Comments: TROPONIN-I EXPECTED VALUES <0.05 NEGATIVE 0.06 - 0.59 AT RISK OF TN > OR = 0.60 SUGGEST TN 7-Vvs-707500:28 CBC W/Diff, Automated Comments: Test performed at:[facility] Iwzvmxaqek[address] [place] [address] Absolute Lymph 1.31 {X10_3/ul} (Normal) Range: [...] 4.2-5.4 WBC 6.4 K/mm3 (Normal) Range: 4.4-11.0 1-Kjg-544741:28 Comprehensive Metabolic Profil Comments: Test performed at:[facility] Aomrbemhqw3739 Norm[address] Hannaluis [place], [place] [address] GAP 7 (Normal) Range: 5-15 CO2 30.0 [...] Comments: Please note revised CREATININE reference range xwuhaqdiq08/22/2015. BUN 14 mg/dL (Normal) Range: 7-18 GLU 145 mg/dL (Abnormal) Range: 70-110 Comments: Fasting Glucose result greater than or equal to 126 mg/dLsuggests DIABETES MELLITUS per A.D.A. criteria. :17 HgA1C , Office (93160) HgA1C , Office 6.2 % (Normal) Range: 4.6 - 7.1 :34 CBC W/Diff, Automated Comments: Test performed at:[facility] Fsujdfvaww9568 [place], [place] [address] Absolute Lymph 0.90 {X10_3/ul} (Normal) Range: 0.83-4.51 [...] :34 Comprehensive Metabolic Profil Comments: Test performed at:[facility] Hljjgnktfg5280 [facility] [place] [address] GAP 7 (Normal) Range: 5-15 [...] criteria. :34 Lipid Profile Comments: Test performed at:[facility] Ytuorlxejx9044 [facility] [place] [address] VLDL 33 mg/dL (Normal) Range: 5-40 LDL [...] 200-240 mg/dL Borderline >240 mg/dL High Risk 4-Vvc-685829:34 Thyroid Stim Hormone (TSH) Comments: Test performed at:[facility] Ryhaogafme[address] [place] [address] TSH 2.56 {uIU/mL} (Normal) Range: 0.358-3.74 55-Ase-785404:02 CBC W/Diff, Automated Comments: Test performed at:[facility] Nx[address]ts[address] [place] [address] Absolute Lymph 1.28 {X10_3/ul} (Normal) Range: [...] :02 Comprehensive Metabolic Profil Comments: Test performed at:[facility] [address]zjraongf[address] [place] [address] GAP 9 (Normal) Range: 5-15 CO2 28.0 [...] per A.D.A. criteria. :47 HgA1C , Office (91001) HgA1C , Office 5.7 % (Normal) Range: 4.6 - 7.1 :47 Blood Glucose , Office (27649) Blood Glucose , Office 132 (Normal) :39 CBC W/Diff, Automated Comments: Test performed at:[facility] Hosvvqitni5[address] [facility] [place] [address] Absolute Lymph 1.14 {X10_3/ul} (Normal) [...] :39 Comprehensive Metabolic Profil Comments: Test performed at:[facility] [address] [place] [address] GAP 7 (Normal) Range: 5-15 [...] 7-18 GLU 100 mg/dL (Normal) Range: 70-110 0-Ppz-663893:38 TSH (34322) Comments: PATIENT NOT FASTINGPERFORMED BY: meebeeCrownpoint Health Care FacilityYxnnju0952 [facility] [id number] TSH 4.120 {uIU/mL} (Normal) Range: 0.450-4.500 8-Whz-077974:11 URINE LAINE CULTURE-IDENTIFICATN Comments: PATIENT NOT FASTINGPERFORMED BY: meebeeCentraState Healthcare SystemEwfxlx4343 [facility] [id number] (46509) Antimicrobial MIHEAD (Normal) Comments: S = Susceptible; [...] primarily for treating urinary tract infections. (CLSI, V919-U80,2009) Result 1 ECV (Abnormal) Comments: Escherichia coli, identified by an automated biochemical system.1,000 Colonies/mLProteus mirabilis/penneri1,000 Colonies/mL Urine Final report Culture,Comprehensive (Abnormal) 8-Mwt-448124:11 URINALYSIS (84636) Comments: PATIENT NOT FASTINGPERFORMED BY: meebee Izmvjz8736 [facility] [id number] Information: [id number] Microscopic Examination MICNIP (Normal) Comments: Microscopic not indicated and not performed. Nitrite, Urine Negative (Normal) Urobilinogen,Semi-Qn 0.2 mg/dL (Normal) Range: 0.0-1.9 Bilirubin Negative (Normal) Occult Blood Negative (Normal) Ketones Negative (Normal) Glucose Negative (Normal) Protein Negative (Normal) WBC Esterase Negative (Normal) Appearance Clear (Normal) Urine-Color Yellow (Normal) pH 6.0 (Normal) Range: 5.0-7.5 Specific Start 1.021 (Normal) Range: 1.005-1.030 6-Yaq-639569:38 CBC, Platelets & Auto Diff Comments: PATIENT NOT FASTINGPERFORMED BY: [facility]selockerG[facility] Hospital6370 [facility] [id number] Information: [id number] ([id number]) Immature Grans (Abs) 0.0 {x10E3/uL} (Normal) Range: [...] 3.77-5.28 WBC 6.5 {x10E3/uL} (Normal) Range: 3.4-10.8 3-Qfs-710650:38 Lipase (77260) Comments: PATIENT NOT FASTINGPERFORMED BY: [employer]zeecz[address] [facility] [id number] Lipase, Serum 19 U/L (Normal) Range: 0-59 1-Zuo-051234:38 Amylase (72130) Comments: PATIENT NOT FASTINGPERFORMED BY: [facility] [employer] [facility] [id number] Amylase, Serum 32 U/L (Normal) Range: 31-124 4-Ywn-062230:38 Metabolic Panel, Comprehensive Comments: PATIENT NOT FASTINGPERFORMED BY: [facility] [id number] [facility] [id number] (40039) ALT (SGPT) 17 [iU]/L (Normal) Range: 0-32 [...] (Abnormal) Range: 65-99 :28 HgA1C , Office (89174) HgA1C , Office 7.9 % (Abnormal) Range: 4.6 - 7.1 :28 Blood Glucose , Office (43692) Blood Glucose , Office 170 (Normal) :05 HgA1C , Office (06439) HgA1C , Office 7.5 % (Abnormal) Range: 4.6 - 7.1 :05 Blood Glucose , Office (18096) Blood Glucose , Office 267 (Normal) :19 [...] 4.2-5.4 WBC 6.4 K/mm3 (Normal) Range: 4.4-11.0 4-[id number]-[id number]:19 CMP Comments: DR FRANCISCO ORDERED CMP CBCDDR [...] CBCD Range: 0.358-3.74 :03 HgA1C , Office (17363) HgA1C , Office 9.1 % (Abnormal) Range: 4.6 - 7.1 :03 Blood Glucose , Office (52570) Blood Glucose , Office 136 (Normal) 46-Ojq-754565:22 Blood Glucose , Office (75224) Blood Glucose , Office 204 (Normal) 14-Hxo-821375:21 HgA1C , Office (65426) HgA1C , Office 7.3 % (Abnormal) Range: 4.6 - 7.1 :45 HgA1C , Office (59732) HgA1C , Office 7.3 % (Abnormal) Range: 4.6 - 7.1 :45 Blood Glucose , Office (09071) Blood Glucose , Office 176 (Normal) Comments: [...] 4.2-5.4 WBC 6.0 K/mm3 (Normal) Range: 4.4-11.0 81-Hot-520639:26 CMP GAP 8 (Normal) Range: 5-15 CO2 [...] per A.D.A. criteria. :33 HgA1C , Office (77395) HgA1C , Office 7.1 % (Normal) Range: 4.6 - 7.1 :33 Blood Glucose , Office (49082) Blood Glucose , Office 127 (Normal) 96-Mym-166987:40 CBC With Differential/Platelet Comments: [facility] [id number] Immature Grans (Abs) 0.0 {x10E3/uL} (Normal) Range: [...] 3.77-5.28 WBC 6.2 {x10E3/uL} (Normal) Range: 4.0-10.5 65-Mzg-788212:40 Comp. Metabolic Panel (14) Comments: [facility]MED [facility]: [facility] [id number] ALT (SGPT) 24 [iU]/L (Normal) Range: 0-32 [...] TSH 3.580 {uIU/mL} Comments: PERFORMED BY: [facility] Hcysoa4256 [facility] [id number] :40 (Normal) Range: 0.450-4.500 :38 PREALBUMIN (25616) Comments: PATIENT NOT FASTINGPERFORMED BY: [facility] Irfrlu4433 [facility] [id number] Information: ADD O10014 AND DRAW FEE 99 6660 Prealbumin 21 mg/dL (Normal) Range: 20-40 :35 HgA1C , Office (89371) HgA1C , Office 7.3 % (Abnormal) Range: 4.6 - 7.1 :01 HgA1C , Office (70049) HgA1C , Office 7.4 % (Abnormal) Range: 4.6 - 7.1 :46 HgA1C , Office (98511) HgA1C , Office 7.3 % (Abnormal) Range: 4.6 - 7.1 :46 Blood Glucose , Office (39936) Blood Glucose , Office 193 (Normal) :12 HgA1C , Office (10524) HgA1C , Office 6.7 % (Normal) Range: 4.6 - 7.1 :12 Blood Glucose , Office (33702) Blood Glucose , Office 103 (Normal) 71-Vgh-205946:26 CBCMD RBCM NORM C+C {NORMAL} (Normal) PE [...] 7-18 GLU 80 mg/dL (Normal) Range: 70-110 44-Xwb-458526:26 LIPID VLDL 12 mg/dL (Normal) Range: 5-40 [...] 76.7 mg/dL (Normal) :21 HgA1C , Office (76261) HgA1C , Office 6.7 % (Normal) Range: 4.6 - 7.1 :21 Blood Glucose , Office (25610) Blood Glucose , Office 88 (Normal) 0-Pwn-645636:06 CBCD SMEAR COMMENT SeeNote (Normal) Comments: Result: [...] 4.2-5.4 WBC 7.2 K/mm3 (Normal) Range: 4.4-11.0 3-Cwi-579000:06 COMP METABOLIC GAP 8 (Normal) Range: 5-15 [...] 200 mg/dLsuggests DIABETES MELLITUS per A.D.A. criteria. 5-Uqa-928150:06 FERRITIN 88 ng/mL (Normal) Range: 8-252 05-Fyy-662366:30 HgA1C , Office (82652) HgA1C , Office 8.4 % (Abnormal) Range: 4.6 - 7.1 75-Eiq-389335:30 Blood Glucose , Office (84395) Blood Glucose , Office 232 (Normal) 82-Bmc-012227:39 HgA1C , Office (41853) HgA1C , Office 8.2 % (Abnormal) Range: 4.6 - 7.1 04-Afy-190253:39 Blood Glucose , Office (53461) Blood Glucose , Office 181 (Normal) 58-Yvv-361414:20 CBCD,SMEAR DIFF Comments: ORDERED CBCD,CMPDR.BONEZZI ORDERED CBCMD,LIPID,CMP,MICROALB [...] 4.2-5.4 WBC 6.8 K/mm3 (Normal) Range: 4.4-11.0 56-Dxn-157360:20 COMP METABOLIC Comments: ORDERED CBCD,CMPDR.BONEZZI ORDERED CBCMD,LIPID,CMP,MICROALB [...] mg/dL suggests DIABETES MELLITUS per A.D.A. criteria. 83-Pns-222215:20 LIPID Comments: ORDERED CBCD,CMPDR.ROSELYN ORDERED CBCMD,LIPID,CMP,MICROALB LDL [...] 200-240 mg/dL Borderline >240 mg/dL High Risk 02-Rne-158859:04 Blood Glucose , Office (31356) Blood Glucose , Office 244 (Normal) 82-Ymv-489614:36 HgA1C , Office (64817) HgA1C , Office 7.5 % (Abnormal) Range: 4.6 - 7.1 31-Ybn-872834:36 Blood Glucose , Office (99080) Blood Glucose , Office 178 (Normal) :24 HgA1C , Office (73302) HgA1C , Office 6.8 % (Normal) Range: 4.6 - 7.1 :24 Blood Glucose , Office (03822) Blood Glucose , Office 141 (Normal) Comments: [...] 4.2-5.4 WBC 5.6 K/mm3 (Normal) Range: 4.4-11.0 38-Hla-885644:58 COMP METABOLIC Comments: DR DEMPSEY ORDERED LIPID [...] mg/dL suggests DIABETES MELLITUS per A.D.A. criteria. 34-Axj-707687:58 LIPID Comments: DR DEMPSEY ORDERED LIPID DR [...] 200-240 mg/dL Borderline >240 mg/dL High Risk 35-Znh-703921:02 HgA1C , Office (25359) HgA1C , Office 6.9 % (Normal) Range: 4.6 - 7.1 :02 Blood Glucose , Office (56862) Blood Glucose , Office 251 (Normal) 85-Wvl-08073:11 CBCD SMEAR COMMENT COMMENT (Normal) Comments: 3+ [...] 126 mg/dLsuggests DIABETES MELLITUS per A.D.A. criteria. 67-Xzo-479576:54 DOT DIR SEMI-QL DOT DIRECT 52 AU/mL (Normal) 60-Gcw-558524:54 ANTI-CCP 055002 > 250 {units} Range: 0-19 (Abnormal) Comments: [...] 200 mg/dLsuggests DIABETES MELLITUS per A.D.A. criteria. 45-Mrf-832630:54 COMPLETE UA BACTERIA 0 SEEN {/hpf} (Normal) [...] mm/h (Abnormal) Range: 0-30 :54 HB CORE [id number] SeeNote (Normal) Comments: Result: NegativePerformed at: - [facility] [address] [id number] Director: Yasmine Cabrera MD, Phone: [phone] at: - [facility] [id number] Director: Jovani Odom MD, Phone: [phone] :[phone] HBsAg 6510 HB SURF AG 6510 SeeNote (Normal) Comments: Result: Negative : HEBSAB 6395 < 0.1 (Normal) Range: 0.00-0.99 Comments: Status of Immunity Anti-HBs Level Inconsistent with Immunity 0.00 - 0.99Consistent with Immunity >0.99.An Index Value of 1.00 is equivalent to 10 mIU/mL.However the magnitude of the Index Value is notindicative of the total amount of antibody present. :54 HEP C AB 159565 <0.1 (Normal) Range: 0.0-0.9 Comments: Negative: < 0.8Indeterminate 0.8 - 0.9Positive: > 0.9.In order to reduce the incidence of a false positiveresult, the CDC recommends that all s/co ratiosbetween 1.0 and 10.9 be confirmed with additionalRIBA or PCR testing. :54 RHEUMATOID FAC 539.0 {IU/mL} (Abnormal) :54 VIT D,25 53861 27.3 ng/mL (Abnormal) Range: 32.0-100.0 Comments: Recent studies consider the lower limit of 32.0 ng/mL to gloria threshold for optimal health.Alexander MARY. J Nutr. 2005 Apr;135(2):317-22. 90-Eit-527262:30 HAND,MIN 3 VIEWS ([place]) Radiology Report See Note (Normal) Comments: Exam Number: [id number] CLINICAL:This a 64-year-old female patient with history of pain. X-RAY EXAMINATION RIGHT HAND TECHNIQUE:Three views of the hand. COMPARISON:None. FINDINGS:Normal visualized carpal bones. Normal metacarpal bones. Normal visualized phalanges. Normal carpal articulations. Normal metacarpophalangeal joints. There are degenerative changesof the interphalangeal joints. There is no d emonstrated soft tissue swelling. IMPRESSION:Chronic degenerative changes, as discussed above. Reported By: VIDHYA NORRIS 00-Gcl-800540:29 HAND,MIN 3 VIEWS ([place]) Radiology Report See Note (Normal) Comments: Exam Number: [id number] CLINICAL:This is a 64-year-old female patient with [...] as discussed above. Reported By: VIDHYA NORRIS 23-Ddf-469178:45 Anti-dsDNA Antibodies Comments: PATIENT WAS FASTINGPERFORMED BY: [facility] [id number] BY: [employer] [id number] Anti-DNA (DS) Ab Qn 1 {IU/mL} (Normal) Range: 0-9 Comments: Negative <5Equivocal 5 - 9Positive >9 39-Mfs-026720:45 Antinuclear Antibodies Comments: PATIENT WAS FASTINGPERFORMED BY: [facility] [id number] BY: [employer] [id number] Direct DOT Direct Negative (Normal) C-Reactive Protein, 5.1 mg/L (Abnormal) Comments: PATIENT WAS FASTINGPERFORMED BY: [place] 4776570 [facility] [id number] BY: [address] [id number] :45 Quant Range: 0.0-4.9 :45 CBC With Differential/Platelet Comments: PATIENT WAS FASTINGPERFORMED BY: [place] [id number] [facility] [id number] BY: [address] [id number] Hematology Comments: Note: (Normal) Comments: Verified by [...] >250 {units} Comments: PATIENT WAS FASTINGPERFORMED BY: meebee[address] [id number] BY: [address] [id number] 3:45 (Abnormal) Range: 0-19 Comments: Negative <20Weak positive 20 - 39Moderate positive 40 - 59Strong positive >59 83-Fms-902439:45 Comp. Metabolic Panel Comments: PATIENT WAS FASTINGPERFORMED BY: [facility] [address] [id number] BY: [employer] [id number] (14) Alkaline Phosphatase, S 99 [iU]/L (Normal) [...] ng/mL (Normal) Comments: PATIENT WAS FASTINGPERFORMED BY: [facility] [id number] BY: [employer] [id number] 13:45 Range: 13-150 20-Aug-2009 Haptoglobin 252 mg/dL Comments: PATIENT WAS FASTINGPERFORMED BY: [facility] [id number] BY: [employer] [id number] 13:45 (Abnormal) Range: 34-200 17-Arr-649851:45 Iron and TIBC Comments: PATIENT WAS FASTINGPERFORMED BY: [facility] [id number] BY: [employer] [id number] Iron Bind.Cap.(TIBC) 384 ug/dL (Normal) Range: 250-450 Iron Saturation 6 % (Abnormal) Range: 15-55 Iron, Serum 24 ug/dL (Abnormal) Range: 35-155 UIBC 360 ug/dL (Normal) Range: 150-375 69-Cbb-499000 LDH 190 [iU]/L (Normal) Comments: PATIENT WAS FASTINGPERFORMED BY: [facility] [id number] BY: [employer] [id number] :45 Range: 100-250 05-Qjd-462262:45 Lipid Panel With LDL/HDL Comments: PATIENT WAS FASTINGPERFORMED BY: [address] [id number] BY: [address] [id number] Ratio HDL Cholesterol 41 mg/dL (Normal) Comments: [...] 182 nmol/L Comments: PATIENT WAS FASTINGPERFORMED BY: [address] [id number] BY: [address] [id number] 3:45 Serum (Normal) Range: 73-376 Comments: The reference range for methylmalonic acid has been set at +3sd abovethe mean for healthy blood bank donors. In the clinical assessment ofpatients with megaloblastic anemias a cutoff of +3sd provides gr eaterspecificity in the diagnosis of the vitamin deficiency states,despite the sacrifice of some sensitivity. 11-Pyo-018292:45 PT and PTT Comments: PATIENT WAS FASTINGPERFORMED BY: [place] [id number] [facility] [id number] BY: [address] [id number] aPTT 29 {sec} (Normal) Range: 24-33 Comments: This test has not been validated for monitoring unfractionated heparintherapy. aPTT-based therapeutic ranges for unfractionated heparintherapy have not been established. For general guidelines onHeparin monitoring, refer to the [facility] Directory of Services. Prothrombin Time 11.1 {sec} Range: 8.7-11.5 (Normal) INR 1.1 (Normal) Range: 0.8-1.2 Comments: Reference interval is for non-anticoagulated patients..Suggested INR therapeutic range for Vitamin Kantagonist therapy:Standard Dose (moderate intensitytherapeutic range): 2.0 - 3.0Higher intensity therapeutic range 2.5 - 3.5 20-Aug-2009 Reticulocyte Count 2.4 % (Normal) Comments: PATIENT WAS FASTINGPERFORMED BY: [facility] [address] [facility] [place] [id number] BY: [address] [id number] 13:45 Range: 0.5-3.0 20-Aug-2009 RPR Non Reactive Comments: PATIENT WAS FASTINGPERFORMED BY: [employer] Dxekhr0407 Forrest Roadblin [place] [id number] BY: [address] [id number] 13:45 (Normal) 20-Aug-2009 Sedimentation 13 mm/h (Normal) Comments: PATIENT WAS FASTINGPERFORMED BY: [employer] [address] [facility] [place] [id number] BY: [address] [id number] 13:45 Rate-Westergren Range: 0-30 20-Aug-2009 TSH 2.470 {uIU/mL} Comments: PATIENT WAS FASTINGPERFORMED BY: [employer] Eztkfy1785 [address] [facility] [id number] BY: [address] [id number] 13:45 (Normal) Range: 0.450-4.500 66-Ako-878729:45 Vitamin B12 and Folate Comments: PATIENT WAS FASTINGPERFORMED BY: [facility] [address]fg[address] [facility] [place] [id number] BY: [address] [id number] Folate (Folic Acid), Serum 10.5 ng/mL (Normal) Comments: Indeterminate: 2.2 - 3.0Deficient: <2.2 Vitamin B12 583 pg/mL (Normal) Range: 211-946 04-Mmc-952961:18 HgA1C , Office (90168) HgA1C , Office 7.3 % (Abnormal) Range: 4.6 - 7.1 92-Jhh-657025:18 Blood Glucose , Office (66234) Blood Glucose , Office 167 (Normal) Plan [...] Knee pain Planned Observations Metabolic Panel, Comprehensive (67092)Indication: Rheumatoid arthritis On: 48-Fdl-358942:41 Request Comments: Mar 2017 MICROALBUMIN: CREATININE RATIO (57507) AND (08230)Indication: Diabetes mellitus type II, controlled On: 1-Ozb-833702:50 Request VITAMIN B12 AND FOLATES (41623)Indication: Diabetes mellitus type II, controlled On: :50 Request CALCIFEDIOL (37637)Indication: Diabetes mellitus type II, controlled On: 2-Qkx-629234:50 Request TSH (THYROID STIMULATING HORMONE) (92836)Indication: Hypothyroidism On: 0-Rwp-549197:50 Request LIPID PANEL (78284)Indication: Hypercholesteremia On: 8-Qov-625561:50 Request METABOLIC PANEL, COMPREHENSIVE (05911)Indication: Diabetes mellitus type II, controlled On: 2-Jjf-840911:50 Request CBC, PLATELETS & AUT DIFF (11811)Indication: Diabetes mellitus type II, controlled On: 1-Rme-367032:49 Request IRON (22315)Indication: Anemia On: 43-Ejn-816679:05 Request Blood Glucose , Office (59741)Indication: Diabetes mellitus type II, controlled On: 15-Ndo-91067:32 Request MICROALBUMIN: CREATININE RATIO (37798) AND (32047)Indication: Diabetes mellitus type II, controlled On: 33-Wfq-180125:06 Request VITAMIN B12 AND FOLATES (61375)Indication: Vitamin D deficiency On: 39-Zrq-385861:00 Request VITAMIN D, 1, 25-DIHYDROXY (25082)Indication: Vitamin D deficiency On: 33-Ccz-766749:00 Request LIPID PANEL (70144)Indication: Hypercholesteremia On: 59-Cam-246326:00 Request METABOLIC PANEL, COMPREHENSIVE (97433)Indication: Diabetes mellitus type II, controlled On: 37-Dnd-583020:00 Request CBC, PLATELETS & AUT DIFF (02071)Indication: Diabetes mellitus type II, controlled On: 52-Hku-839901:59 Request TSH (THYROID STIMULATING HORMONE) (42143)Indication: Hypothyroidism On: :59 Request POTASSIUM SERUM (10611)Indication: Hyperkalemia On: 95-Ymi-999089:59 Request Comments: 2-3 weeks CALCIFIDIOL (17141) VIT D 25Indication: Vitamin D deficiency On: 76-Hih-486381:34 Request TSH (99826)Indication: Hypothyroidism On: 22-Rwt-233746:34 Request MICROALBUMIN: CREATININE RATIO (17628) AND (16207)Indication: Diabetes mellitus type II, controlled On: :34 Request URINALYSIS, W/ MICRO (69605)Indication: Diabetes mellitus type II, controlled On: :34 Request TSH (64104)Indication: Hypothyroidism On: :34 Request METABOLIC PANEL, COMPREHENSIVE (08233)Indication: Diabetes mellitus type II, controlled On: :34 Request LIPID PANEL (27979)Indication: Diabetes mellitus type II, controlled On: :34 Request CBC with auto diff (42761)Indication: Diabetes mellitus type II, controlled On: :34 Request CBC with auto diff (79253)Indication: Hypertension, benign On: 73-Khe-568780:26 Request METABOLIC PANEL, COMPREHENSIVE (39505)Indication: Hypertension, benign On: 12-Hvr-724245:26 Request LIPID PANEL (40095)Indication: Hypertension, benign On: 38-Vpk-474002:26 Request TSH (74457)Indication: Hypothyroidism On: 02-Spp-927661:26 Request CBC WITH MANUAL DIFF (81520)Indication: Hypertension, benign On: 67-Ptg-398633:21 Request METABOLIC PANEL, COMPREHENSIVE (91585)Indication: Hypertension, benign On: 56-Yof-348047:21 Request TSH (02263)Indication: Hypothyroidism On: 09-Xzq-745301:21 Request Methymalonic Acid, Serum (88376)Indication: Thrombocytopenia, unspecified On: 43-Bpk-62739:48 Request Vitamin B-12 (cyanocobalamin) (58433)Indication: Thrombocytopenia, unspecified On: :48 Request CBC, Platelets & Auto Diff (67794)Indication: Thrombocytopenia, unspecified On: 08-Exx-80995:48 Request Comments: citrate METABOLIC PANEL, COMPREHENSIVE (96286)Indication: Hypertension, benign On: 65-Lun-036695:59 Request CBC WITH MANUAL DIFF (87983)Indication: Hypertension, benign On: 31-Kgq-120306:59 Request TSH (77891)Indication: Hypothyroidism On: 69-Cim-054036:29 Request METABOLIC PANEL, COMPREHENSIVE (92170)Indication: Hypertension, benign On: 32-Gcj-220376:29 Request Blood Glucose , Office (14631)Indication: Diabetes mellitus type II, controlled On: 12-Lar-393073:35 Request TSH (58603)Indication: Hypothyroidism On: 45-Vdo-943886:19 Request METABOLIC PANEL, COMPREHENSIVE (26938)Indication: Diabetes mellitus type II, controlled On: 50-Zmd-490540:19 Request LIPID PANEL (26264)Indication: Diabetes mellitus type II, controlled On: :19 Request Blood Glucose , Office (39148)Indication: Diabetes mellitus type II, controlled On: 06-Ucg-747897:01 Request TSH (66934)Indication: Thyroid disorder On: 98-Evp-219431:29 Request MICROALBUMIN: CREATININE RATIO (02975) AND (66491)Indication: Diabetes mellitus type II, controlled On: :26 Request METABOLIC PANEL, COMPREHENSIVE (97814)Indication: Diabetes mellitus type II, controlled On: 47-Mfh-353001:26 Request LIPID PANEL (91519)Indication: Diabetes mellitus type II, controlled On: 71-Lrd-070417:26 Request CBC WITH MANUAL DIFF (33738)Indication: Diabetes mellitus type II, controlled On: 51-Aco-822423:26 Request CBC WITH MANUAL DIFF (33447)Indication: Diabetes mellitus type II, controlled On: 20-Zpw-361676:52 Request MICROALBUMIN: CREATININE RATIO (19817) AND (50542)Indication: Diabetes mellitus type II, controlled On: 65-Vrx-535224:29 Request METABOLIC PANEL, COMPREHENSIVE (01253)Indication: Diabetes mellitus type II, controlled On: 91-Mdw-732293:29 Request LIPID PANEL (13986)Indication: Diabetes mellitus type II, controlled On: 49-Vcz-884260:29 Request CBC WITH MANUAL DIFF (56976)Indication: Diabetes mellitus type II, controlled On: 79-Phk-352184:29 Request FERRITIN (32387)Indication: Anemia On: 8-Dxo-138768:26 Request CBC with manual diff (37070)Indication: Anemia On: 29-May-20119:12 Request HgA1C , Office (99922)Indication: Diabetes mellitus type II, controlled On: 58-Rkh-894484:04 Request METABOLIC PANEL, COMPREHENSIVE (02163)Indication: Hypercholesteremia On: 53-Vyh-531382:15 Request LIPID PANEL (27251)Indication: Hypercholesteremia On: 03-Imz-764325:15 Request Lipid Panel (42260)Indication: Hypercholesteremia On: 51-Wgu-662123:50 Request RPR (RAPID PLASMA REAGIN) (08651)Indication: Neuropathy On: 76-Qxn-163741:48 Request TSH (64588)Indication: Thyroid disorder On: 27-Fzb-885867:48 Request HAPTOGLOBIN (23263)Indication: Anemia On: 83-Mdg-307203:46 Request PTT (Activated Partial Thromboplastin Time) (40159)Indication: Anemia On: 55-Xdb-349447:46 Request PT (Prothrobim Time) (50520)Indication: Anemia On: 09-Hgd-834205:46 Request RETICULOCYTE COUNT (99959)Indication: Anemia On: 64-Jxt-205093:46 Request LDH (LD) (LACTATE DEHYDROGENASE) (31624)Indication: Anemia On: 59-Hsp-585024:46 Request Methylmalonic acid, serum 55983Jvelmlilvn: Anemia On: 76-Hgf-123027:46 Request Vitamin B-12 (cyanocobalamin) (28740)Indication: Anemia On: 17-Obh-832499:46 Request Iron Binding Capacity (TIBC) (59295)Indication: Anemia On: 56-Rdx-178716:46 Request Iron (21393)Indication: Anemia On: 51-Azt-740751:46 Request Folic Acid Serum (72382)Indication: Anemia On: 02-Rqq-571450:46 Request Ferritin (63106)Indication: Anemia On: 96-Rcb-635777:46 Request DNA ANTIBODY-NATV/DBL ST (44292)Indication: Pain in unspecified joint On: 97-Opc-014954:46 Request CCP ANTIBODY (59484)Indication: Pain in unspecified joint On: 56-Nok-195322:45 Request SED RATE ERYTHROCYTE (86782)Indication: Pain in unspecified joint On: 80-Gcn-496499:45 Request C-REACTIVE PROTEIN (48564)Indication: Pain in unspecified joint On: 03-Kvl-469516:45 Request TSH (77974)Indication: Pain in unspecified joint On: 07-Eoi-796247:45 Request RHEUMATOID FACTOR-QUANT (69891)Indication: Pain in unspecified joint On: 03-Xui-553398:45 Request DOT (ANTINUCLEAR ANTIBODY) (66336)Indication: Pain in unspecified joint On: 84-Xsh-769098:45 Request CBC WITH MANUAL DIFF (25208)Indication: Pain in unspecified joint On: 99-Hmf-976209:45 Request METABOLIC PANEL, COMPREHENSIVE (78164)Indication: Pain in unspecified joint On: 37-Oby-745312:45 Request Planned Encounters Medical; Forms - On: 30-Jan-2018 10:45 [facility], [facility], [facility]; 3 Month FU - On: 20-Feb-2018 10:15 [facility], Mayra George [employer], Mayra George Planned Procedures Flu Vaccine (Quadrivalent) On: 10-Jan-2017 Intent 97469Es: Mayra Goodman CNP Comments: Lot #[id number]/10/18ite[employer]L dltd, IMDose prefilled syringegiven by:TATYANA Sutton and ABN signed Mayra Goodman CNP Flu Vaccine (Quadrivalent) On: 15-Dec-2015 Intent 56820Xy: Rafael Thomas MD Comments: Lot #[id number]/30/ite-L dltd, IMDose prefilled syringegiven by:TATYANA Sutton and ABN signed MRI OF CERVICAL SPINE WITHOUT On: 19-Jul-2015 Intent CONTRAST (40485)By: Katelyn Dempsey MD Ultrasound - RenalBy: Roselyn On: 06-Jul-2015 Intent Katelyn SORTO Renal Artery DopplerBy: Roselyn On: 06-Jul-2015 Intent Katelyn SORTO MRI OF CERVICAL SPINE WITH On: 06-Jul-2015 Intent CONTRAST (40251)By: Katelyn Dempsey MD EMGBy: Katelyn Dempsey MD On: 06-Jul-2015 Intent Nerve ConductionBy: Roselyn SORTO, On: 06-Jul-2015 Intent Katelyn Pedroza Comments: right arm MRI OF BRAIN WITH CONTRAST On: 06-Jul-2015 Intent (88004)By: Katelyn Dempsey MD Kenalog Injection, 10 mgm On: 01-Jun-2015 Intent (J3301)By: Katelyn Dempsey MD EKG (70655)By: Roselyn SORTO, On: 06-Oct-2014 Intent Katelyn Pedroza Comments: see scanned document of test done to see results reviewed today with patient Nuclear Stress Test/Stress On: 06-Oct-2014 Intent SPECT/AdenosineBy: Katelyn Dempsey MD Ultrasound - PelvisBy: Roselyn On: 26-Jan-2014 Intent Katelyn SORTO Flu Vaccine (Quadrivalent) On: 26-Jan-2014 Intent 37222Nn: Katelyn Dempsey MD Comments: Lot #:[id number] Expiration [...] 03-Nov-2013 Intent (J3301)By: Katelyn Dempsey MD EKG (86397)By: Roselyn SORTO, On: 12-May-2013 Intent Katelyn Pedroza Comments: see scanned document of test done to see results reviewed today with patient ADMINISTRATION OF INFLUENZA On: 11-Feb-2013 Intent VIRUS VACCINE (G0008)By: Dante Comments: Lot #[id number]-L dltd, IMDose prefilled syringegiven by:Faviola Cote LPN FLU VAC, SPLIT, >3 YEARS, On: 11-Feb-2013 Intent INTRAMUSC (51130)By: Faviola Howell LPN Eprescribed prescriptions On: 11-Feb-2013 Intent (G8553)By: Faviola Howell LPN Eprescribed prescriptions On: 12-Nov-2012 Intent (G8553)By: Faviola Howell LPN IMMUNIZ ADMNIN, 1 VAC, On: 29-Aug-2012 Intent SNGL/COMBO (90141)By: Chante Owen LPN ZOSTER VACC, [place] (54751)By: On: 29-Aug-2012 Intent Chante Owen LPN Eprescribed prescriptions On: 13-Aug-2012 Intent (G8553)By: Faviola Howell LPN Eprescribed prescriptions On: 14-May-2012 Intent (G8553)By: Faviola Howell LPN Solu -Medrol Injection, 125 mg On: 05-Apr-2012 Intent (J2930)By: Mayra Goodman CNP, CNP, Mary E ADMINISTRATION OF INFLUENZA On: 12-Feb-2012 Intent VIRUS VACCINE (G0008)By: HARESH Griffin FLU VAC, SPLIT, >3 YEARS, On: 12-Feb-2012 Intent INTRAMUSC (76127)By: HARESH Griffin PNEUM VAC ADLT/IMUMNOSPR, On: 13-Nov-2011 Intent SBC/INTRM (54494)By: Roselyn Comments: Lot:Exp:2.14 [id number]:0.5mlRoute:L arm, IMGiven By:Katelyn SANFORD MD ADMINISTRATION OF PNEUMOCOCCAL On: 13-Nov-2011 Intent VACCINE (G0009)By: Katelyn Dempsey MD Eprescribed prescriptions On: 21-Jul-2010 Intent (G8553)By: Katelyn Dempsey MD MAMMOGRAM, SCREENING, BOTH On: 22-Apr-2010 Intent BREASTS ([id number])By: Katelyn Dempsey MD Radiology - Hand - BilateralBy: On: 06-Sep-2009 Intent Katelyn Dempsey MD Comments: copy to [facility] Planned Medications INJECTION, METHYLPREDNISOLONE SODIUM SUCCINATE, [...] controlled : DISCONTINUED - MICROALBUMIN: CREATININE RATIO (86916) AND (50503) Indication: Diabetes mellitus type II, controlled Iron [...] for Transition into care: Was admitted to [place] on Oct 28, 2016 with weakness un [...] deficiency, Rheumatoid arthritis, Blood in stool, Anemia, Jeramy's, Anemia [facility] Visit On: [...] Nutrition: balanced diet and supplemental vitamins. The ca dical issues the patient is following up [...] The patient does have durable power of estate planning attorney and living will. The patient has noticed nothing from the geriatic depression scale. Other providers contributing to the patient's care a re gastrologist ( @[facility] in [facility] for colonscopy ), skill training program coordinator (Dr. Francisco ) and other: (Safety Compliance Specialist: Dr. Child , Pain Management: Dr. [...] patient does have du rable power of estate planning attorney and living will. The patient has noticed nothing from the geriatic depression scale. Other providers contributing to the patient's care are gastrologist ( @[facility] in [facility] for colonscopy ), skill training program coordinator (Dr. Francisco ) and other: (Safety Compliance Specialist: Dr. Child , Pain Management: Dr. [...]
--- OUTSIDE RECORDS SUMMARY | 2018-04-22 10:20 | XMS RPT_ITS | Continuity of Care Document ---
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 Campa in [place] Status: Active Current nonsmoker (Renamed from Current [...] no vomiting, resoled after stopping trulicity(03/10)Junuvia on bua474dr once daily Rageye exam yearly(12/09/15), catarctekg cardiology Dr Zhang, stents 1 in 2003Podiatry: Dr Child [facility], every 3 months, Has multiple toe [...] Comments: Sees pain management Dr. Mcfadden at [facility], she prescribes lyrica, dose increased in [...] toprol BP stable sees Dr. 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 [facility] BP:130-138/78 Status: Active Hypothyroidism (E03.9, 244.9) [...] (M25.569, 719.46) Comments: 1 cc juanis Lot#: [id number] exp 2 cc miguel a lot#: [id number] exp: right knee has RA and this [...] then weaned off ventilator or sent to [facility] Status: Active Mitral valve stenosis (I05.0, 394.0) Comments: MODERATE: Saw Dr Zhang (does not want to see him again, was told needs mitral valve replacement as is not candidate for valvuloplastyNew Dr : DR Kee Campa([place])per pt does not receomemd surgery at this [...] for Tdap vaccination (Renamed from Need for oiafvlwrlh-glkmilq-llaxbfpgb (Tdap) vaccine, adult/adolescent) (Z23, V06.1) Status: Active [...] for new wheelchair, she will look at [facility] to see what she would like [...] Quantity: 2 {Package} Refills: 1 Ordered:03-Jul-2016 Maxine FIRE TOWER KEEPER, Mayra Lin FIRE TOWER KEEPER, Ivonne Start : 03-Jul-2016 Active Comments:Total 60 [...] Dempsey MD Start : 19-Jul-2015 Active Comments:E11.9NPI: [phone] PERCOCET, 7.5-325MG (Oral Tablet) 2 (two) Tablet every 4 hours prn for 0 days Quantity: 160 {Tablet} Refills: 0 Ordered:08-Sep-2015 Rafael Thomas MD Start : 08-Sep-2015 Active Comments:one hundred and sixty Pravastatin Sodium 20 MG Oral Tablet 1 Tablet QD for 30 days Quantity: 30 {Tablet} Refills: 1 Ordered:15-Feb-2018 Maxine FIRE TOWER KEEPER, Mayra Lin CNP, Ivonne Start : 15-Feb-2018 [...] Refills: 3 Ordered:04-Mar-2018 Maxine HINTON, Mayra Lin FIRE TOWER KEEPER, Ivonne Start : 04-Mar-2018 Active Toprol XL [...] Quantity: 60 {Tablet} Refills: 3 Ordered:18-Dec-2016 Maxine FIRE TOWER KEEPER, Mayra Delia HINTON, Ivonne Start : 08-Sep-2015 [...] 31-Mar-2015 End : 01-Apr-2015 Inactive Comments:SSI: 151-200-1 rpzs337-976-8 units 657-778-1cnnwa 301-350-4 units 351-400-5 unitsover 400 give 5 [...] me sick as a dog Vitamin D3 59639 UNIT Oral Capsule 1 (one) Capsule once a week for 60 days Quantity: 8 {Capsule} Refills: 0 Ordered:15-Dec-2015 Rafael Thomas MD Start : 15-Dec-2015 End : 13-Feb-2016 Inactive ZOLPIDEM TARTRATE, 10MG (Oral Tablet) 1 Tablet qhs prn for 0 days Quantity: 30 {Tablet} Refills: 3 Ordered:31-Mar-2015 HARESH Griffin Start : 03-Nov-2013 End : 31-Mar-2015 Inactive Comments:estephania ZOSTAVAX, 04592EDZ/0.65ML (Subcutaneous Solution Reconstituted) uad For Solution one [...] - PT Result: Comments: See Note; NOTES: [facility] 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 so she can take steps for about [...] Scap: poor, Shoulder: 4-/5 throughout Elbow: 4-/5 Manager Of Case: poor - Goa Goal 1:: Patient will [...] to be FAXED BACK to us at [phone] for Medicare purposes. Please let me know [...] Result: Comments: See Note; NOTES: [facility] Cardiovascular Services [address] [place] [address] [place] 4d Stress Test Echo w/o Contrast MR#: [id number] Acct: [id number] Name: TIA MACARIO Ebony Rep #: [id number] : 1945 70 From: Pawan Zhang MD [...] 30.00 DOBUTAMINE STAGE 4 1:12 12 5 151/78409.00 BASELINE 88 141/55 Stress Duration: 10:12 mm:ss [...] noted. abnormalities noted. EKG Data [facility] ECG displays normal sinus rhythm. [...] ictated: 01/05/16 1037 Date Transcribed: 01/05/16 1604 Barnworker Groom: Signed 18-Nov-2015 Emergency Department Summary Result: Comments: See Note; NOTES: [facility] Medical Records Department [address] [place] [address] Emergency Department Summary MR#: [id number] Acct: [id number] Name: JC SERVIN Rep #: [id number] : 1945 70 From: Jose Mccain MD [...] Charcot. Jose Mccain M.D. T: NTS JOB: [id number] 11/18/15 0739 <Electronically signed by Jose Mccain MD> Date Jose Antonio Signature (If Indicated): Date CC: Rafael Thomas Date Dictated: 11/10 Date Transcribed: 11/11/151715 Barnworker Groom: Signed 11-Nov-2015 Discharge Instruction Result: Comments: See Note; NOTES: [facility] Medical Records Department [address] [place] [address] [place] [address] Discharge Instruction 11/11/15 1451 MR#: [id number] Acct: [id number] Name: TIA SERVIN Rep #: [id number] : 1945 70 From: Jose Mccain MD [...] problems, contact your doctor. Call [facility] ([phone]) or report to [facility] Emergency Room. Call 911 if necessary. 11/11/151906 <Electronically signed by Jose Mccain MD> Date Jose Atnonio Signature (If Indicated): Date CC: Rafael Thomas 11-Nov-2015 Ankle min 3 Views Result: Comments: See Note; NOTES: [facility] Imaging Services [address] [place] [address] Verdana 4d Ankle min 3 Views MR#: [id number] Acct: [id number] Name: TIA SERVIN Rep #: [id number] : 1945 F 70 From: Clemencia Holden MD PCP: Rafael Thomas Status: REG ER Study: Ankle min 3 Views Date of Exam: 11/11/15 Exam# [id number] Ordering Dr: Jose Mccain MD STUDY: X-RAY [...] MD at 14:20 EDT , Service support [phone], CC: Jose Mccain; Rafael Thomas Barnworker Groom: Signed 11-Nov-2015 Foot min 3 Views Result: Comments: See Note; NOTES: [facility] Imaging Services [address] [place] [address] Verdana 4d Foot min 3 Views MR#: [id number] Acct: [id number] Name: TIA SERVIN Rep #: [id number] : 1945 F 70 From: Clemencia Holden MD PCP: Rafael Thomas Status: REG ER Study: Foot min 3 Views Date of Exam: 11/11/15 Exam# [id number] Ordering Dr: Jose Mccain MD STUDY: X-RAY [...] MD at 14:26 EDT , Service support [phone], CC: Jose Mccain; Rafael Thomas Barnworker Groom: Signed 08-Nov-2015 PT D/C Summary (1) Result: Comments: See Note; NOTES: [facility] [address] [place] [address]. [address] [place] [address] Fax REHABILITATION SERVICES DISCHA RGE SUMMARY MR#: [id number] Acct: [id number] Name: TIA SERVIN Rep #: [id number] : 1945 70 From: Laura Wright PT, Cert. MDT Referring Dr.: OUT OF TOWN DOCTOR Status: REG RCR Insurance: MEDICARE PART A B [facility] - PT D/C Summary It [...] TO FOLLOW UP WITH DR. LAY IN [place] SUNDAY. SHE REPORTS SHE DOES NOT WANT [...] please feel free to call me at [phone]. Thank you for the referral of this patient. Sincerely, Laura Wright <Electronically signed by Laura Wright PT, Cert. MDT> 11/08/15 1035 CC: MISBAH STRONG; Rafael Thomas; OUT OF TOWN DOCTOR JH Signed 27-Oct-2015 Inital Evaluation (1) - PT Result: Comments: See Note; NOTES: [facility] [place], [place] [address] Fax REHABILITATION SE RVICES INITIAL EVALUATION MR#: [id number] Acct: [id number] Name: TIA SERVIN Rep #: [id number] : 1945 70 From: Laura Wright PT, Cert. MDT Referring Dr.: Georgi Lay MD Status: R EG RCR Insurance: MEDICARE PART A B [facility] Patient's Visit Information TIA SERVIN [...] THE HOSPITAL ANOTHE WEEK AND THEN A HALF-WAY FOR A MONTH TO TRY TO GET HER STRENGTH BACK. PATIENT REPORTS SHE ALSO HAS A HISTORY OF LUMBAR PRO BLEMS AND THEY ARE WORSENING. Recent major surgery: RENETTA LE TOE AMPUTATIONS AND OPEN SORES ON TOES CURRENTLY. HEART CATH/STENTS. RA AND OA. SOCIAL: LIVES ALONE. 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 OTHER: PATIENT REPORTS SHE DOES NOT DO WELL IN THERAPY. SHE STATES IT USUALLY CAUSES TOO MUCH PAIN. I ACHE SO BAD WHEN I DO THERAPY. PATIENT REPORTS THEY PUT HER IN THERAPY AT THE HALF-WAY AND S HE COULDN'T DO MUCH. - [...] to be FAXED BACK to us at [phone] for Medicare purposes. Please let m e [...] PT (1) Result: Comments: See Note; NOTES: [facility] [address] [place] [address] Fax REEVALUATION / [facility] PHYSICAL THERAPY MR#: [id number] Acct: [id number] Name: TIA SERVIN Rep #: [id number] : 1945 70 From: Cert. MACARIO Rowe [...] do not hesitate to contact me at [phone] by phone or if you have questions [...] Result: Comments: See Note; NOTES: [facility] Pulmonary Services/Neurology [address] [place] [address] NCS and/or EMG Patient MR#: [id number] Acct: [id number] Name: TIA MARTINEZ Rep #: [id number] : 1945 70 From: Jakob Pino MD [...] median mononeuropathy. This is consistent with a cqmw-xd-qpkluyue right carpal tunnel syndrome. 2. Electrodiagnostic findings demonstrate acute right-sided C5 radiculopat hy. If there are any questions in regards to this exam, please do not hesitate to contact me. Jakob Pino MD T: NTS JOB: [id number] 08/24/15 1521 <Electronically signed by Jakob Pino MD> Date Jakob Pino MD CC: Jakob Pino; Katelyn Dempsey MD Date Dictated: 08/18/15 1258 Date Transcribed: 08/18/151257 Barnworker Groom: Signed 20-Jul-2015 Renal Artery Duplex Result: Comments: See Note; NOTES: [facility] Cardiovascular Services [address] [place] [address] Renal Artery Duplex Ultrasound 07/20/15 0853 MR#: [id number] Acct: [id number] Name: TIA SERVIN Rep #: [id number] : 1945 70 From: Martinez Faulkner MD [...] Dictated: 07/20/15 0853 Date Transcribed: 07/20/15 1210 Barnworker Groom: Signed 20-Jul-2015 Kidney and Bladder Result: Comments: See Note; NOTES: [facility] Imaging Services [address] [place] [address] Verdana 4d Kidney and Bladder MR#: [id number] Acct: [id number] Name: TIA SERVIN Rep #: [id number] : 1945 F 70 From: Arabella Peace MD PCP: Katelyn Dempsey MD Status: REG CLI Study: Kidney and Bladder Date of Exam: 07/20/15 Exam# [id number] Ordering Dr: Katelyn Dempsey MD STUDY: RENAL [...] MD at 13:01 EDT , Service support [phone], CC: Katelyn Dempsey MD Barnworker Groom: Signed 20-Jul-2015 Brain W/WO Contrast Result: Comments: See Note; NOTES: [facility] Imaging Services [address] [place] [address] Verdana 4d Brain W/WO Contrast MR#: [id number] Acct: [id number] Name: TIA SERVIN Rep #: [id number] : 1945 F 70 From: Arabella Peace MD PCP: Katelyn Dempsey MD Status: REG CLI Study: Brain W/WO Contrast Date of Exam: 07/20/15 Exam# [id number] Ordering Dr: Moe Dempsey MD STUDY: MRI [...] MD at 12:28 EDT , Service support [phone], CC: Katelyn Dempsey MD Barnworker Groom: Signed 20-Jul-2015 Spine Cervical (Routine) Result: Comments: See Note; NOTES: [facility] Imaging Services [address] [place] [address] Verdana 4d Spine Cervical (Routine) MR#: [id number] Acct: [id number] Name: TIA ANDRADE Rep #: [id number] : 1945 F 70 From: Arabella Peace MD PCP: Katelyn Dempsey MD Status: REG CLI Study: Spine Cervical (Routine) Date of Exam: 07/20/15 Exam# [id number] Ordering Dr: Katelyn Irby MD STUDY: MRI [...] at 11:49 ED T , Service support [phone], CC: Katelyn Dempsey MD Barnworker Groom: Signed 17-Jun-2015 Echocardiogram Complete Result: Comments: See Note; NOTES: [facility] Cardiovascular Services [address] [place] [address] Echo Complete 06/17/15 0753 MR#: [id number] Acct: [id number] Name: MILY JENSENELICEOTIA Ebony Rep #: [id number] : 1945 70 From: Pawan Zhang MD [...] Dictated: 06/17/15 0753 Date Transcribed: 06/17/15 105 Barnworker Groom: Signed 04-Mar-2015 Brain/Head without Contrast Result: Comments: See Note; NOTES: [facility] Imaging Services [address] [place] [address] Verdana 4d Brain/Head without Contrast MR#: [id number] Acct: [id number] Name: TIA SERVIN Rep #: [id number] : 1945 F 69 From: Kahlil Waters PCP: Katelyn Dempsey MD Status: REG ER Study: Brain/Head without Contrast Date of Exam: 03/04/15 Exam# [id number] Esteban rivera Dr: Oleg Nash MD STUDY: [...] 0 at 3:47 EST , Service support [phone], CC: Katelyn Dempsey MD; Oleg Nash M.D. Barnworker Groom: Signed 16-Feb-2014 Pelvic (Non ) Result: Comments: See Note; NOTES: [facility] Imaging Services [address] [place] [address] Ultrasound Report MR#: [id number] Acct: [id number] Name: TIA SERVIN Rep #: [id number] : 1945 F 68 From: Misbah Elaine DO PCP: Katelyn Dempsey MD Status: REG CLI Study: Pelvic (Non ) Date of Exam: 02/16/14 Exam# [id number] Ordering Dr: Katelyn Dempsey MD STUD Y: [...] at 4:59 EST Tel , Service support [phone], CC: Katelyn Dempsey MD Barnworker Groom: Signed Immunization Name Dates Details Pneumococcal conjugate [...] Most Recent Primary 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, 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, Status: Active No Drug Use Status: Active Tobacco Use Comments: Remotely quit tobacco use 1987 Status: Active Vital Signs Date Test Result Details 13-Jxh-407241:07 Temperature 97.3 f Comments: Method: Temporal Pulse [...] kg/m2 Body Surface Area Calculated 2 m2 8-Ose-988381:37 Temperature 97.8 f Comments: Method: Temporal Pulse [...] Area Calculated 2.07 m2 :35 Comments: has [facility] Temperature 97.1 f Comments: Method: Temporal Pulse [...] kg/m2 Body Surface Area Calculated 2.07 m2 85-Wda-263976:00 Temperature 97.4 f Comments: Method: Temporal Pulse [...] 240 lb Results Date Description Value Details 77-Ncv-140854:17 CBC W/Diff, Automated Comments: WANTS THE CMP CBCDDRVANNESSA WANTS THE A1C CMP [facility] [address] [place], [address] Absolute Lymph 0.82 {X10_3/ul} (Abnormal) Range: 0.83-4.51 [...] 4.2-5.4 WBC 6.6 K/mm3 (Normal) Range: 4.4-11.0 95-Gsh-138265:17 Comprehensive Metabolic Profil Comments: WANTS THE CMP CBCDDR.DERRICK WANTS THE A1C CMP [facility] [address] [facility] [place], [place], [address] GAP 11 (Normal) Range: 5-15 CO2 22.0 [...] A.D.A. criteria.Please note revised GLUCOSE reference range tfqqltkry66/02/2018. 62-Axy-910687:17 Hemoglobin A1c Comments: WANTS THE [facility] CBCDDR.DERRICK WANTS THE A1C [facility] [address] [place], [address] HGB A1C 5.9 % (Normal) Range: 4.2-6.3 97-Tsz-333001:17 Microalb:Creat Ratio,Random UR Comments: WANTS THE [facility] CBCDDR.DERRICK WANTS THE A1C [facility] [address] [place], [address] MALB:CREAT 14.7 {mg/g_CRE} (Normal) MICROALBUMIN,UR 26.9 mg/L (Normal) UR CREAT 183.00 mg/dL (Normal) 24-Htj-306094:17 Thyroid Stim Hormone (TSH) Comments: WANTS THE [facility] CBCDDR.DERRICK WANTS THE A1C [facility] [address] [place], [address] TSH 0.78 {uIU/mL} (Normal) Range: 0.358-3.74 6-Mmn-919500:11 CBC W/Diff, Automated Comments: [facility] [address] [place], [address] Absolute Lymph 1.06 {X10_3/ul} (Normal) [...] 4.2-5.4 WBC 6.4 K/mm3 (Normal) Range: 4.4-11.0 5-Wvv-116732:11 Comprehensive Metabolic Profil Comments: [facility] [address] [place], [address] GAP 14 (Normal) Range: 5-15 CO2 24.0 [...] A.D.A. criteria.Please note revised GLUCOSE reference range uxzwsdqiy29/02/2018. 84-Ysq-056412:01 HgA1C , Office (02854) Comments: 5.8 HgA1C , Office 5.8 % (Normal) Range: 4.6 - 7.1 65-Ybe-893906:00 Blood Glucose , Office (56742) Comments: 99 Blood Glucose , Office 99 (Normal) 48-Vqm-81005:19 Comprehensive Metabolic Profil Comments: [facility] [address] [place], [place], [address] GAP 11 (Normal) Range: 5-15 CO2 26.0 [...] A.D.A. criteria.Please note revised GLUCOSE reference range qtkylnsdj30/02/2018. :19 Hemoglobin A1c Comments: [facility] [address] [facility]. [place], [place], [address] HGB A1C 5.6 % (Normal) Range: 4.2-6.3 :19 Thyroid Stim Hormone (TSH) Comments: [facility] [address] [facility]. [place], [place], [address] TSH 2.33 {uIU/mL} (Normal) Range: 0.358-3.74 :19 Vitamin D,25 Hydroxy Comments: [facility] [address] [facility]. [place], [place], [address] Vitamin D 25-OH 37.3 ng/mL (Normal) Range: 29.95-100.01 Comments: Vitamin D 25(OH) Status Range Deficiency <20 ng/mL (50nmol/L) Insuffciency - 30 ng/mL (50 - 75 nmol/L) Sufficiency 30 - 100 ng/mL (75 - 250 nmol/L) Toxicity >100 ng/mL (>250 nmol/L) 78-Igl-882459:01 CBC W/Diff, Automated Comments: [facility] [address] [place], [place], [address] Absolute Lymph 1.26 {X10_3/ul} (Normal) Range: 0.83-4.51 [...] 4.2-5.4 WBC 7.4 K/mm3 (Normal) Range: 4.4-11.0 26-Mot-977618:01 Comprehensive Metabolic Profil Comments: [facility] [address] [place], [place], [address] GAP 10 (Normal) Range: 5-15 CO2 25.0 [...] A.D.A. criteria.Please note revised GLUCOSE reference range qwsqlnhxu29/02/2018. 41-Qab-396485:34 CALCIFEDIOL (14825) Comments: PATIENT NOT FASTINGPERFORMED BY: [facility] Hospital[facility]av1388 [facility] [id number] Vitamin D, 25-Hydroxy 30.2 ng/mL (Normal) Range: 30.0-100.0 Comments: Vitamin D deficiency has been defined by the [place] ofMedicine and an Endocrine Society practice guideline as alevel of serum 25-OH vitamin D less than 20 ng/mL (1,2).The Endocrine Society went on to further define vitamin Dinsufficiency as a level between 21 and 29 ng/mL (2).1. IOM ([place] of Medicine). 2010. Dietary reference intakes for calcium and D. [place]: The National Academies Press.2. Brandon MF, Bakari BOYD, Vicente IZAGUIRRE, et al. Evaluation, treatment, and prevention of vitamin D deficiency: an Endocrine Society clinical practice guideline. JCEM. 2010; 96(7):1911-30. 25-Jul-20179:41 Comprehensive Metabolic Profil Comments: [facility] [address] [place], [address] GAP 10 (Normal) Range: 5-15 CO2 24.0 [...] A.D.A. criteria.Please note revised GLUCOSE reference range jiisnozvu46/02/2018. :41 Hemoglobin A1c Comments: [facility] [address] [place], [address] HGB A1C 5.8 % (Normal) Range: 4.2-6.3 :41 Lipid Profile Comments: [facility] [address] [place], [address] VLDL 45 mg/dL (Abnormal) Range: 5-40 LDL [...] High Risk :41 Microalb:Creat Ratio,Random UR Comments: [facility] [address] [place], [place], [address] MALB:CREAT 14.8 {mg/g_CRE} (Normal) MICROALBUMIN,UR 46.0 mg/L (Normal) UR CREAT 310.00 mg/dL (Normal) :41 Thyroid Stim Hormone (TSH) Comments: [facility] [address] [place], [address] TSH 1.96 {uIU/mL} (Normal) Range: 0.358-3.74 54-Fdj-187439:18 CBC W/Diff, Automated Comments: [facility] [address] [facility]. [place], [place], [address] Absolute Lymph 1.08 {X10_3/ul} (Normal) Range: 0.83-4.51 [...] 4.2-5.4 WBC 4.7 K/mm3 (Normal) Range: 4.4-11.0 73-Npr-323061:18 Comprehensive Metabolic Profil Comments: [facility] [address] [facility] [place], [address] GAP 7 (Normal) Range: 5-15 CO2 26.0 mmol/L (Normal) Range: 21.0-32.0 CL 107 mmol/L (Normal) Range: 98-107 K 4.8 mmol/L (Normal) Range: 3.5-5.1 NA 140 mmol/L (Normal) Range: 136-145 T BILI 0.60 mg/dL (Normal) Range: 0.20-1.00 ALT 16 U/L (Normal) Range: 13-56 Comments: Please note revised ALT reference range ovdxsxlgo34/28/2018. ALK P 63 U/L (Normal) Range: 45-117 [...] A.D.A. criteria.Please note revised GLUCOSE reference range oejglczgy94/02/2018. 9-Jvj-733602:40 CALCIFEDIOL (49322) Comments: PATIENT NOT FASTINGPERFORMED BY: [facility]370 [facility] [id number] Vitamin D, 25-Hydroxy 31.0 ng/mL (Normal) Range: 30.0-100.0 Comments: Vitamin D deficiency has been defined by the [place] ofMedicine and an Endocrine Society practice guideline as alevel of serum 25-OH vitamin D less than 20 ng/mL (1,2).The Endocrine Society went on to further define vitamin Dinsufficiency as a level between 21 and 29 ng/mL (2).1. IOM ([place] of Medicine). 2010. Dietary reference intakes for calcium and D. [place]: The National Academies Press.2. Holick MF, Bakari NC, Vicente IZAGUIRRE, et al. Evaluation, treatment, and prevention of vitamin D deficiency: an Endocrine Society clinical practice guideline. JCEM. 2010; 96(7):1911-30. 3-Omr-737947:20 Crystals, Body Fluid Comments: [facility] [address] [place], [place], [address] PATH REV Reviewed (Normal) Comments: Negative for malignant cells and crystals.Acute inflammation.Clinical correlation necessary.Jacinto Herrera M.D. 03/28/17 AMENDED REPORT 03/28/17 1357 PATH REV previously reported as: Will follow SOURCE/BF SYNOVIAL (Normal) CRYSTALS/BF SEE PATH REV (Normal) 3-Gpy-731599:20 Culture, Body Fluid Comments: [facility] [address] [place], [place], [address] ; dr redd ALASF See Note (Normal) [...] DAYS Cult, AnaerobicNo growth in 5 days. 3-Ydw-028688:20 Synovial Fluid RBC, WBC AND Comments: [facility] [address] [place], [place], [address] ; dr rainey Diff PATH COM/SYFL May [...] Comments: YELLOW/RED SYNOVIAL SOURCE RIGHT KNEE (Normal) 70-Xgm-02810:53 CBC W/Diff, Comments: PLEASE FAX RESULTS TO [id number] PT REQUEST.[facility] [address] [place], [place], [address] ; dr barba Automated Absolute Lymph 0.89 [...] :53 Comprehensive Comments: PLEASE FAX RESULTS TO [id number] PT REQUEST.[facility] [address] [place], [address] Metabolic Profil GAP 10 (Normal) Range: 5-15 [...] Hemoglobin A1c Comments: PLEASE FAX RESULTS TO [id number] PT REQUEST.[facility] [address] [place], [address] HGB A1C 6.9 % (Abnormal) Range: 4.2-6.3 :53 Lipid Profile Comments: PLEASE FAX RESULTS TO [id number] PT REQUEST.[facility] [address] [place], [address] VLDL 29 mg/dL (Normal) Range: 5-40 LDL [...] Thyroid Stim Comments: PLEASE FAX RESULTS TO [id number] PT REQUEST.[facility] [address] [place], [place], [address] Hormone (TSH) TSH 1.69 {uIU/mL} (Normal) Range: 0.358-3.74 92-Oth-585434:59 HgA1C , Office (91930) HgA1C , Office 6.4 % (Normal) Range: 4.6 - 7.1 01-Ezu-129328:59 Blood Glucose , Office (15012) Blood Glucose , Office 213 (Normal) 92-Wsj-131337:27 CBC W/Diff, Automated Comments: SHARE RESULTS WITH DERRICK FOR [facility] [address] [place], [address] Absolute Lymph 1.20 {X10_3/ul} (Normal) [...] 4.2-5.4 WBC 6.1 K/mm3 (Normal) Range: 4.4-11.0 66-Ump-107291:27 Comprehensive Metabolic Profil Comments: SHARE RESULTS WITH DERRICK FOR [facility] [address] [place], [place], [address] GAP 11 (Normal) Range: 5-15 CO2 23.0 [...] 200 mg/dLsuggests DIABETES MELLITUS per A.D.A. criteria. 53-Hys-047650:05 Comprehensive Metabolic Profil Comments: [facility] Th[address] [place], [address] GAP 9 (Normal) Range: 5-15 CO2 24.0 [...] 126 mg/dLsuggests DIABETES MELLITUS per A.D.A. criteria. 29-Aas-927383:05 Hemoglobin A1c Comments: [facility] Azbmv[address]od[address] [facility] [address] [place], [place], [address] HGB A1C 6.7 % (Abnormal) Range: 4.2-6.3 39-Lvg-526507:05 Thyroid Stim Hormone (TSH) Comments: [facility] [address] [place], [place], [address] TSH 3.02 {uIU/mL} (Normal) Range: 0.358-3.74 99-Unx-488532:05 Vitamin D,25 Hydroxy Comments: [facility] Ppoavkgdmb[address] [place], [place], [address] Vitamin D 25-OH 23.5 ng/mL (Normal) Comments: Vitamin D 25(OH) Status Range Deficiency <20 ng/mL (50nmol/L) Insuffciency 20 - 30 ng/mL (50 - 75 nmol/L) Sufficiency 30 - 100 ng/mL (75 - 250 nmol/L) Toxicity >100 ng/mL (>250 nmol/L) :56 HgA1C , Office (05167) HgA1C , Office 6.3 % (Normal) Range: 4.6 - 7.1 :56 Blood Glucose , Office (84906) Blood Glucose , Office 194 (Normal) :37 CBC W/Diff, Automated Comments: [facility] [address] [place], [place], [address] ; another doc Absolute Lymph 1.29 {X10_3/ul} [...] Range: 4.4-11.0 :37 Comprehensive Metabolic Profil Comments: [facility] [address] [place], [place], [address] GAP 7 (Normal) Range: 5-15 CO2 29.0 [...] 126 mg/dLsuggests DIABETES MELLITUS per A.D.A. criteria. 36-Kqs-45412:37 Basic Metabolic Profile Comments: Order Date: 12/03/15DRKARLA WANTS LIVER,LIPIDDR.DERRICK KEE BMPInterface Comments: 12 hours fasting, may have water.Order Date: 12/03/15[facility] Zwwoxzivqy[address] [place], [place], [address] (BMP) GAP 4 (Abnormal) Range: 5-15 CO2 [...] 12 hours fasting, may have water.Order Date: 12/03/15[facility] Novapuspld60[address] [place], [address] VLDL 18 mg/dL (Normal) Range: 5-40 LDL [...] 12 hours fasting, may have water.Order Date: 12/03/15[facility] [address] [place], [address] D BILI 0.11 mg/dL (Normal) Range: 0.00-0.30 T BILI 0.40 mg/dL (Normal) Range: 0.20-1.00 ALT 14 U/L (Normal) Range: 12-78 ALK P 47 U/L (Normal) Range: 45-117 AST 12 U/L (Abnormal) Range: 15-37 GLOB 3.3 g/dL (Normal) Range: 2.3-3.5 ALB 2.8 g/dL (Abnormal) Range: 3.4-5.0 T PROT 6.1 g/dL (Abnormal) Range: 6.4-8.2 :40 HgA1C , Office (63686) HgA1C , Office 6.1 % (Normal) Range: 4.6 - 7.1 :40 Blood Glucose , Office (63899) Blood Glucose , Office 208 (Normal) 4-Pfw-602215:45 Culture, Body Fluid Comments: [facility] Htqmozhdln[address] [place], [place], [address] CUBF See Note (Normal) Comments: List Antibiotics Last 48 Hours? UNKList Antibiotics to be Started? UNKComments: SYNOVIAL FLUID LEFT KNEE..Gram StainCentrifuged Specimen? Culture performed on centrifuged specimen Gram Stain 3+ Red Blood Cells 1+ White Blood Cells No organisms seen Body Fluid CultNO GROWTH IN 14 DAYS Cult, AnaerobicNo growth in 5 days. 4-Dmf-737164:45 Synovial Fluid RBC, WBC AND Comments: [facility] K[address]flnsbpfq[address] [place], [place], [address] Diff PATH COM/SYFL May follow (Normal) MONO [...] Yellow (Normal) SYNOVIAL SOURCE LEFT KNEE (Normal) 09-Ckx-294708:21 CBC W/Diff, Automated Comments: [facility] Dfyctoiaua[address] [place], [place], [address] Absolute Lymph 1.21 {X10_3/ul} (Normal) Range: 0.83-4.51 [...] 4.2-5.4 WBC 6.5 K/mm3 (Normal) Range: 4.4-11.0 47-Jat-823261:21 Comprehensive Metabolic Profil Comments: [facility] J[address]zdcpqg[address] [place], [place], [address] GAP 8 (Normal) Range: 5-15 CO2 23.0 [...] <126 mg/dLsuggests IMPAIRED HOMEOSTASIS per A.D.A. criteria. 3-Tgl-827824:31 CBC W/Diff, Automated Comments: [facility] Orqbvfsotn[address] [place], [place], [address] Absolute Lymph 1.21 {X10_3/ul} (Normal) Range: 0.83-4.51 [...] 4.2-5.4 WBC 8.5 K/mm3 (Normal) Range: 4.4-11.0 9-Zbb-598320:31 Comprehensive Metabolic Profil Comments: [facility] Rsrpvfjzxd20[address] [place], [address] GAP 9 (Normal) Range: 5-15 CO2 27.0 [...] 126 mg/dLsuggests DIABETES MELLITUS per A.D.A. criteria. 3-Vgf-018753:49 Blood Glucose , Office (87144) Blood Glucose , Office 219 (Normal) 7-Llx-348762:49 HgA1C , Office (09833) HgA1C , Office 7.5 % (Abnormal) Range: 4.6 - 7.1 41-Laf-671883:27 C-Peptide Comments: [facility] (refer to report for specific site)refer to report for address and phone number C PEPTIDE 69742 7.0 ng/mL (Abnormal) Range: 1.1-4.4 Comments: C-Peptide reference interval is for fasting patients.Performed at: [address] [id number] Director: Lex Lai PhD, Phone: [phone] 93-Irp-996124:27 CBC W/Diff, Automated Comments: [facility] Oqqinujuop[address] [place], [address] ANISO 1+ (Normal) Absolute Lymph [...] 4.2-5.4 WBC 8.3 K/mm3 (Normal) Range: 4.4-11.0 19-Tlh-828093:27 Comprehensive Metabolic Profil Comments: [facility] [address]cevccc[address] [place], [place], [address] GAP 9 (Normal) Range: 5-15 CO2 25.0 [...] 126 mg/dLsuggests DIABETES MELLITUS per A.D.A. criteria. 68-Vxt-563040:27 Hemoglobin A1c Comments: [facility] Gtdufjgosv7114 [facility] [place], [address] HGB A1C 7.5 % (Abnormal) Range: 4.2-6.3 61-Nkv-184043:27 Microalb:Creat Ratio,Random UR Comments: [facility] Jeuspjskvm6978 [facility] [place], [address] MALB:CREAT 6.7 {mg/g_CRE} (Normal) MICROALBUMIN,UR 9.6 mg/L (Normal) UR CREAT 144.00 mg/dL (Normal) 83-Xng-042769:27 Miscellaneous Lab Procedure Comments: Test(s) Ordered: ISLET CELL ANTIBODY [id number] SERUM/[facility] Pkxmwbowyl1939 [facility] [place], [address] MIS Comments: TEST RESULT UNITS REFERENCE INTERVALAntipancreatic Islet Cells Negative Neg:<1:1 TEST LAB (Normal) ING PERFORMED AT [facility]. ORIGINAL REPORT ON FILE IN LAB CONTAINS ADDITIONAL TEST SITE INFORMATION. TEST 14-Svk-893013:25 HAPTOGLOBIN (31190) Comments: PATIENT NOT FASTINGPERFORMED BY: [facility]6370 [facility] [id number] Haptoglobin 259 mg/dL (Abnormal) Range: 34-200 44-Rtn-533936:25 SPEP (46947) Comments: PATIENT NOT FASTINGPERFORMED BY: [facility]6370 [facility] [id number] Please note: SPRCS (Normal) Comments: Protein electrophoresis scan will follow via computer, mail, orcourier delivery. A/G Ratio 0.9 (Normal) Range: 0.7-1.7 Globulin, Total 3.4 g/dL (Normal) Range: 2.2-3.9 M-Anam Not Observed g/dL (Normal) Gamma Globulin 0.8 g/dL (Normal) Range: 0.4-1.8 Beta Globulin 1.2 g/dL (Normal) Range: 0.7-1.3 Qgncv-9-Ikmvwloa 1.1 g/dL (Abnormal) Range: 0.4-1.0 Nzjqr-8-Phsaboxi 0.3 g/dL (Normal) Range: 0.0-0.4 Albumin 3.2 g/dL (Normal) Range: 2.9-4.4 Protein, Total, Serum 6.6 g/dL (Normal) Range: 6.0-8.5 15-Xuq-565651:25 UPEP (39603) Comments: PATIENT NOT FASTINGPERFORMED BY: [facility]6370 [facility] [id number] Please note: SPRCS (Normal) Comments: Protein electrophoresis scan will follow via computer, mail, orcourier delivery. M-Anam, % Not Observed % (Normal) Gamma Globulin, U 10.2 % (Normal) Beta Globulin, U 22.4 % (Normal) Sluvp-0-Vcocrotc, U 9.8 % (Normal) Dpfav-3-Mqlnmjfc, U 1.8 % (Normal) Albumin, U 55.8 % (Normal) Protein,Total,Urine 42.4 mg/dL (Normal) 10-Bpi-931246:25 RETICULOCYTE COUNT MANUL Comments: PATIENT NOT FASTINGPERFORMED BY: [facility] Zchxix0522 [facility] [id number] (04855) Reticulocyte Count 2.0 % (Normal) Range: 0.6-2.6 66-Rhd-120387:25 IRON BINDING CAPACITY (TIBC) Comments: PATIENT NOT FASTINGPERFORMED BY: [facility] Wwhemb6577 [facility] [id number] (08355) Iron Saturation 4 % (Abnormal) Range: 15-55 Iron, Serum 14 ug/dL (Abnormal) Range: 27-139 UIBC 372 ug/dL (Abnormal) Range: 118-369 Iron Bind.Cap.(TIBC) 386 ug/dL (Normal) Range: 250-450 69-Ltk-262156:25 FERRITIN (46979) Comments: PATIENT NOT FASTINGPERFORMED BY: [facility] Rhmonz0174 [facility] [id number] Ferritin, Serum 19 ng/mL (Normal) Range: 15-150 66-Kbr-608559:25 CBC, PLATELETS & AUT DIFF Comments: PATIENT NOT FASTINGPERFORMED BY: [employer]asi[employer] Card To Get Approved ForCox Walnut Lawn Wlpwsd4984 [facility] [id number] Information: [id number] (59007) Immature Grans (Abs) 0.0 {x10E3/uL} (Normal) Range: [...] (Normal) Range: 3.4-10.8 :32 HgA1C , Office (12339) HgA1C , Office 8.2 % (Abnormal) Range: 4.6 - 7.1 :16 CBC W/Diff, Automated Comments: DR.N THOMAS ORDERED TSH LIPID VITD CBCD B12 FOLOTES CMP MIACRE ORDERED LIPID LIVERDR.MARYAM ORDERED CMP CBCDWSelect [facility]ty [facility] Qshcjjdwwt4495 [facility] [place], [place], [phone] OVALOCYTE 1+ (Normal) BASO STIP RARE (Normal) [...] Patient Taking Vitamins or Folic Acid Supplements? [facility] [place], [address] GAP 9 (Normal) Range: 5-15 CO2 26.0 [...] Patient Taking Vitamins or Folic Acid Supplements? [place] [address] [place], [place], [address] FOLATES 11.20 ng/mL (Normal) Range: 3.1-17.5 :16 Lipid Profile Comments: DR.N THOMAS ORDERED TSH LIPID VITD CBCD B12 FOLOTES CMP LUCÍA ORDERED LIPID LIVERDR.VELLANMÓNICA ORDERED CMP CBCDIs Patient Taking Vitamins or Folic Acid Supplements? [facility] [place], [address] VLDL 32 mg/dL (Normal) Range: [...] ORDERED TSH LIPID VITD CBCD B12 FOLOTES [facility] LUCÍA ORDERED LIPID LIVERDR.MARYAM ORDERED [facility] CBCD[facility] Pwrpdvgina3188 [facility]. [place], [place], [address] MALB:CREAT 7.5 {mg/g_CRE} (Normal) MICROALBUMIN,UR 10.1 mg/L (Normal) UR CREAT 135.00 mg/dL (Normal) :16 Thyroid Stim Hormone (TSH) Comments: DR.N THOMAS ORDERED TSH LIPID VITD CBCD B12 FOLOTES [facility] LUCÍA ORDERED LIPID LIVERDR.MARYAM ORDERED [facility] CBCDIs Patient Taking Vitamins or Folic Acid Supplements? [facility] [place] lfkchcxo[address] [facility] [place], [place], [address] TSH 1.90 {uIU/mL} (Normal) Range: 0.358-3.74 :16 Vitamin B12 324 pg/mL (Normal) Comments: DR.N THOMAS ORDERED TSH LIPID VITD CBCD B12 FOLOTES [facility] LUCÍA ORDERED LIPID LIVERDR.MARYAM ORDERED [facility] CBCDHol[facility] Thjufdyfal[address] [place], [place], [address] Range: 211-911 :16 Vitamin D,25 Hydroxy Comments: DR.N THOMAS ORDERED TSH LIPID VITD CBCD B12 FOLOTES [facility] LUCÍA ORDERED LIPID LIVERDR.JOHNLANKI ORDERED CMP CBCDWSelect Medical Specialty [facility] Nvkmctjhff[address], [phone] Vitamin D 25-OH 24.7 ng/mL (Normal) Comments: Vitamin D 25(OH) Status Range Deficiency <20 ng/mL (50nmol/L) Insuffciency 20 - 30 ng/mL (50 - 75 nmol/L) Sufficiency 30 - 100 ng/mL (75 - 250 nmol/L) Toxicity >100 ng/mL (>250 nmol/L) 6-Zzc-706356:25 OVA & PARASITE DIR SMEAR Comments: PATIENT NOT FASTINGPERFORMED BY: [employer] Venturesin [place] [id number] (89532) Result 1 NOCP (Normal) Comments: No ova, cysts, or parasites seen. Ova + Parasite Exam Final report (Normal) Comments: These results were obtained using wet preparation(s) and trichromestained smear. This test does not include testing for Cryptosporidiumparvum, Cyclospora, or Microsporidia. 8-Ilk-836983:25 OCCULT BLOOD FECES SCREEN Comments: PATIENT NOT FASTINGPERFORMED BY: [employer] Vossln3417 [employer] NewsEC[facility] [id number] (58756) Occult Blood, Fecal, IA Positive (Abnormal) 3-Oeh-360000:25 LEUKOCYTE COUNT, FECAL (10106) Comments: PATIENT NOT FASTINGPERFORMED BY: [employer] Tgeriq2920 [employer] NewsEC[facility] [id number] Result 1 NWBC (Normal) Comments: No white blood cells seen. White Blood Cells (WBC), Final report (Normal) Stool 4-Gtv-132662:24 C-DIFFICILE, STOOL (64824) Comments: PATIENT NOT FASTINGPERFORMED BY: TM [facility] Jnpqim0192 [address] Thefuture.fmin [place] [id number] Information: [id number] C difficile Toxins A+B, EIA Negative (Normal) 6-Fbk-159698:25 LAINE CULTURE-STOOL (52380) Comments: PATIENT NOT FASTINGPERFORMED BY: TM [facility] Lpxajd2707 [address] SensorinUNC Health Pardee [id number] Information: SRC:STL [id number] E coli Shiga Toxin EIA Negative (Normal) Result 1 NCI (Normal) Comments: No Campylobacter species isolated. Campylobacter Culture Final report (Normal) Result 1 NSS (Normal) Comments: No Salmonella or Shigella recovered. Salmonella/Shigella Screen Final report (Normal) :22 Blood Glucose , Office (84902) Blood Glucose , Office 191 (Normal) :22 HgA1C , Office (73008) HgA1C , Office 7.4 % (Abnormal) Range: 4.6 - 7.1 :19 CBC W/Diff, Automated Comments: [facility] [address]dfqeiw[address] [place], [place], [address] Absolute Lymph 1.86 {X10_3/ul} (Normal) Range: 0.83-4.51 [...] 4.2-5.4 WBC 8.4 K/mm3 (Normal) Range: 4.4-11.0 0-Nlx-686092:19 Comprehensive Metabolic Profil Comments: [facility] [address]ukrhxoqf[address] [place], [address] GAP 10 (Normal) Range: 5-15 CO2 24.0 [...] 126 mg/dLsuggests DIABETES MELLITUS per A.D.A. criteria. 79-Eec-713426:50 CALCIFEDIOL (76032) Comments: PATIENT NOT FASTINGPERFORMED BY: [facility] Lexaob0043 [facility] [id number] Vitamin D, 25-Hydroxy 20.8 ng/mL (Abnormal) Range: 30.0-100.0 Comments: Vitamin D deficiency has been defined by the [place] ofMedicine and an Endocrine Society practice guideline as alevel of serum 25-OH vitamin D less than 20 ng/mL (1,2).The Endocrine Society went on to further define vitamin Dinsufficiency as a level between 21 and 29 ng/mL (2).1. IOM ([place] of Medicine). 2010. Dietary reference intakes for calcium and D. [place]: The National Academies Press.2. Brandon MF, Bakari BOYD, Vicente IZAGUIRRE, et al. Evaluation, treatment, and prevention of vitamin D deficiency: an Endocrine Society clinical practice guideline. JCEM. 2010; 96(7):1911-30. 06-Sfc-845651:50 POTASSIUM SERUM (28871) Comments: PATIENT NOT FASTINGPERFORMED BY: VoicebaseTrenton Psychiatric HospitalNhpxfp8027 [place] SensorinUNC Health Pardee [id number] Potassium, Serum 5.4 mmol/L (Abnormal) Range: 3.5-5.2 02-Uqa-614482:50 MAGNESIUM (75685) Comments: PATIENT NOT FASTINGPERFORMED BY: LabCoTrenton Psychiatric HospitalJorxck4050 [facility] HospitalDublin [place] [id number] Magnesium, Serum 1.8 mg/dL (Normal) Range: 1.6-2.3 11-Lmp-234730:50 AMMONIA (98381) Comments: PATIENT NOT FASTINGPERFORMED BY: [place] [address]7877 [facility] [id number] BY: [facility] Lzbaeo9789 [address] [facility] HospitalDublin [place] [id number] Ammonia, Plasma 40 ug/dL (Normal) Range: 19-87 58-Tkf-982181:50 SPEP (41650) Comments: PATIENT NOT FASTINGPERFORMED BY: [facility] Ubozup0452 [facility] HospitalDublin [place] [id number] Information: [id number] Please note: SPRCS (Normal) Comments: Protein electrophoresis scan will follow via computer, mail, orcourier delivery. A/G Ratio 1.2 (Normal) Range: 0.7-2.0 Globulin, Total 3.0 g/dL (Normal) Range: 2.0-4.5 M-Anam Comment: g/dL (Normal) Comments: [facility] Gamma Globulin 0.6 g/dL (Normal) Range: 0.5-1.6 Beta Globulin 1.0 g/dL (Normal) Range: 0.6-1.3 Eruyc-3-Psefagjo 1.1 g/dL (Normal) Range: 0.4-1.2 Dtawl-8-Vrjukple 0.3 g/dL (Normal) Range: 0.1-0.4 Albumin 3.5 g/dL (Normal) Range: 3.2-5.6 Protein, Total, Serum 6.5 g/dL (Normal) Range: 6.0-8.5 22-Kvq-806436:54 CREATININE CLEARANCE Comments: PATIENT NOT FASTINGPERFORMED BY: RingadocUNC Health Pardee [id number] Information: [id number] START 07/18/15@630A M FINISH 07/18@7AM (14998) Creatinine Clearance 57 mL/min (Abnormal) Range: 88-128 [...] Creatinine, Serum 0.75 mg/dL (Normal) Range: 0.57-1.00 98-Zdw-406540:54 Total Protein,24 Hour Urine Comments: PATIENT NOT FASTINGPERFORMED BY: Swiftype6370 Forrest Man [facility] [id number]; has fu 4-28 (41591) Prot,24hr calculated 354.6 {mg/24_hr} (Abnormal) Range: 30.0-150.0 Protein,Total,Urine 39.4 mg/dL (Abnormal) Range: 0.0-15.0 Comments: Effective August 02, 2015 the reference interval for Protein, Total, Urine will be changing to: Not Estab. 08-Szz-144937:45 URINE VMA (61933) Comments: 24 hour urine; PATIENT NOT FASTINGPERFORMED BY: [employer] [id number] VMA, Urine, 24hr 2.3 {mg/24_hr} (Normal) Range: 0.0-7.5 VMA, Urine 3.3 mg/L (Normal) 12-Plk-569584:50 RENIN (91513) Comments: PATIENT NOT FASTINGPERFORMED BY: Voicebase[address] [id number] BY: Easiest Credit Card To Get Approved ForBeaumont Hospital6370 [facility] [id number] Information: [id number] Renin Activity, Plasma 1.17 {ng/mL/hr} (Normal) Comments: Adult Normal Salt Intake: Upright 1.31 - 3.95 Supine 0.15 - 2. 33 . Salt Excretion (Na mEq/24 hr): Na= 0 - 30 8.82 - 23.86 Na= 30 - 75 4.09 - 7.73 Na= 75 - 150 1.44 - 2.80 Na= >150 0.39 - 1.31 60-Mnr-704929:45 METANEPHRINES - URINE (11605) Comments: PATIENT NOT FASTINGPERFORMED BY: [employer] [id number] Metanephrine, U,24hr 50 {ug/24_hr} (Normal) Range: 45-290 Comments: (Hypertensive) >17 years 11 months: 35 - 460 Metanephrine, Ur 71 ug/L (Normal) Normetanephr.,U,24h 319 {ug/24_hr} (Normal) Range: 82-500 Comments: (Hypertensive) >17 years 11 months: 110 - 1050 Normetanephrine, Ur 455 ug/L (Normal) 85-Lhf-990762:45 CATECHOLAMINES TOTAL, URINE Comments: PATIENT NOT FASTINGPERFORMED BY: [facility] [id number] Information: SRC:UR [id number] START 07/20@9AM JENNIE CRUZ (60008) Dopamine, Ur, 24hr 90 {ug/24_hr} (Normal) Range: 0-510 Dopamine, Urine 128 ug/L (Normal) Norepinephrine,U,24h 48 {ug/24_hr} (Normal) Range: 0-135 Norepinephrine, Ur 68 ug/L (Normal) Epinephrine, U, 24hr 1 {ug/24_hr} (Normal) Range: 0-20 Epinephrine, Urine 2 ug/L (Normal) :50 HgA1C , Office (58650) HgA1C , Office 7.7 % (Abnormal) Range: 4.6 - 7.1 :20 CBC W/Diff, Automated Comments: [facility] Aevleqaqnq[address] [place], [place], [address] Absolute Lymph 1.40 {X10_3/ul} (Normal) Range: 0.83-4.51 [...] Range: 4.4-11.0 :20 Comprehensive Metabolic Profil Comments: [facility] Quixucajue[address] [place], [place], [address] GAP 8 (Normal) Range: 5-15 CO2 26.0 [...] 200 mg/dLsuggests DIABETES MELLITUS per A.D.A. criteria. 77-Zwp-016736:49 HgA1C , Office (79002) HgA1C , Office 6.6 % (Normal) Range: 4.6 - 7.1 3-Yby-983333:04 CBC W/Diff, Automated Comments: [facility] Ulzufslbgk[address] [place], [place], [address] Absolute Lymph 1.54 {X10_3/ul} (Normal) Range: 0.83-4.51 [...] 4.2-5.4 WBC 9.0 K/mm3 (Normal) Range: 4.4-11.0 4-Mtj-544293:04 Comprehensive Metabolic Profil Comments: [facility] Rwjnrdbhae48[address] [place], [place], [address] GAP 11 (Normal) Range: 5-15 CO2 24.0 [...] <126 mg/dLsuggests IMPAIRED HOMEOSTASIS per A.D.A. criteria. 71-Sfb-39355:10 Basic Metabolic Profile (BMP) Comments: Serial Specimen #1, #2 or #3? 1'TROP' Serial specimen #1, #2, #3, or #4: 1[facility] Kizuecrfkn[address] [place], [place], [address] GAP 9 (Normal) Range: 5-15 CO2 26.0 [...] 126 mg/dLsuggests DIABETES MELLITUS per A.D.A. criteria. 71-Zop-73634:10 Carboxyhemoglobin Frac (CO) Comments: [facility] Wqqkjztwkn1074 [facility]. [place], [place], [address](968) COHb 1.3 % (Normal) Range: 0.0-1.5 Comments: * NON-SMOKER RANGE 1.6 - 5.0% * LIGHT SMOKER RANGE 5.1 - 9.0% * HEAVY SMOKER RANGE :10 CBC W/Diff, Automated Comments: [facility] Szbkekgrdw8789 [facility]. [place], [place], [phone] Absolute Lymph 0.87 {X10_3/ul} (Normal) Range: 0.83-4.51 [...] Serial specimen #1, #2, #3, or #4: [address] [place] [address] Wxckxcxgqn6657 [place], [address] CKRI 1.9 % (Abnormal) Range: 0.0-1.4 Comments: RELATIVE INDEX >1.5% IS PRESUMPTIVELY POSITIVE CPKMB 1.0 ng/mL (Normal) Range: 0.0-5.0 Comments: CK-MB and RI Interpretation MB Relative Index Non-AMI <or= 5 NA Indeterminate > 5 <or= 4 AMI > 5 > 4 CPK TOTAL 53 U/L (Normal) Range: 26-192 51-Vlq-56568:10 Troponin-I Comments: Serial Specimen #1, #2 or #3? 1'TROP' Serial specimen #1, #2, #3, or #4: [address] [place] [address] Yfjjxgfqen5280 [facility] [place], [address] TROPONIN-I 0.03 ng/mL (Normal) Comments: TROPONIN-I EXPECTED VALUES <0.05 NEGATIVE 0.06 - 0.59 AT RISK OF AR > OR = 0.60 SUGGEST AR 4-Ipu-853369:28 CBC W/Diff, Automated Comments: Test performed at:[facility] Kdtflpkfrd4[address] [place] [address] Absolute Lymph 1.31 {X10_3/ul} (Normal) [...] 4.2-5.4 WBC 6.4 K/mm3 (Normal) Range: 4.4-11.0 0-Kbz-623043:28 Comprehensive Metabolic Profil Comments: Test performed at:[facility] Gihmxmpzmn4[address] [place] [address] GAP 7 (Normal) Range: 5-15 [...] Comments: Please note revised CREATININE reference range kredgaarq04/22/2015. BUN 14 mg/dL (Normal) Range: 7-18 GLU 145 mg/dL (Abnormal) Range: 70-110 Comments: Fasting Glucose result greater than or equal to 126 mg/dLsuggests DIABETES MELLITUS per A.D.A. criteria. :17 HgA1C , Office (17999) HgA1C , Office 6.2 % (Normal) Range: 4.6 - 7.1 :34 CBC W/Diff, Automated Comments: Test performed at:[facility] [address]pstdvswyi42[address] [place] [address] Absolute Lymph 0.90 {X10_3/ul} (Normal) [...] 4.2-5.4 WBC 5.2 K/mm3 (Normal) Range: 4.4-11.0 1-Nyt-192834:34 Comprehensive Metabolic Profil Comments: Test performed at:[facility] Hjqjrxljeo1172 [place] [address] GAP 7 (Normal) Range: 5-15 CO2 28.0 [...] <126 mg/dLsuggests IMPAIRED HOMEOSTASIS per A.D.A. criteria. 8-Pcs-589862:34 Lipid Profile Comments: Test performed at:[facility] Yrzwobckxp[address] [place] [address] VLDL 33 mg/dL (Normal) Range: 5-40 LDL [...] 200-240 mg/dL Borderline >240 mg/dL High Risk 7-Kxh-489415:34 Thyroid Stim Hormone (TSH) Comments: Test performed at:[facility] Yefgvhzwyi[address] [place] [address] TSH 2.56 {uIU/mL} (Normal) Range: 0.358-3.74 43-Hww-514984:02 CBC W/Diff, Automated Comments: Test performed at:[facility] [address]jruihz[address] [place] [address] [id number] Absolute Lymph 1.28 {X10_3/ul} (Normal) Range: 0.83-4.51 [...] 4.2-5.4 WBC 6.1 K/mm3 (Normal) Range: 4.4-11.0 49-Kqs-922391:02 Comprehensive Metabolic Profil Comments: Test performed at:[facility] [address] [place] [place], [place] [id number] GAP 9 (Normal) Range: 5-15 CO2 28.0 [...] per A.D.A. criteria. :47 HgA1C , Office (74429) HgA1C , Office 5.7 % (Normal) Range: 4.6 - 7.1 :47 Blood Glucose , Office (22828) Blood Glucose , Office 132 (Normal) :39 CBC W/Diff, Automated Comments: Test performed at:[facility] [address] [place] [address] Absolute Lymph 1.14 {X10_3/ul} (Normal) Range: 0.83-4.51 [...] 4.2-5.4 WBC 6.0 K/mm3 (Normal) Range: 4.4-11.0 81-Bxd-335210:39 Comprehensive Metabolic Profil Comments: Test performed at:[facility] [address] [place], [place] [id number] GAP 7 (Normal) Range: 5-15 CO2 27.0 [...] 7-18 GLU 100 mg/dL (Normal) Range: 70-110 1-Ysb-589247:38 TSH (00619) Comments: PATIENT NOT FASTINGPERFORMED BY: [facility] [address] [facility] [id number] TSH 4.120 {uIU/mL} (Normal) Range: 0.450-4.500 5-Ppq-310652:11 URINE LAINE CULTURE-IDENTIFICATN Comments: PATIENT NOT FASTINGPERFORMED BY: [facility] [id number] ([id number]) Antimicrobial MIHEAD (Normal) Comments: S = Susceptible; [...] primarily for treating urinary tract infections. (CLSI, [id number],2009) Result 1 ECV (Abnormal) Comments: Escherichia coli, identified by an automated biochemical system.1,000 Colonies/mLProteus mirabilis/penneri1,000 Colonies/mL Urine Final report Culture,Comprehensive (Abnormal) 4-Mrs-[id number]:11 URINALYSIS ([id number]) Comments: PATIENT NOT FASTINGPERFORMED BY: [facility] [facility] [facility] [id number] Information: [id number] Microscopic Examination MICNIP (Normal) Comments: Microscopic not indicated and not performed. Nitrite, Urine Negative (Normal) Urobilinogen,Semi-Qn 0.2 mg/dL (Normal) Range: 0.0-1.9 Bilirubin Negative (Normal) Occult Blood Negative (Normal) Ketones Negative (Normal) Glucose Negative (Normal) Protein Negative (Normal) WBC Esterase Negative (Normal) Appearance Clear (Normal) Urine-Color Yellow (Normal) pH 6.0 (Normal) Range: 5.0-7.5 Specific [place] 1.021 (Normal) Range: 1.005-1.030 :38 CBC, Platelets & Auto Diff Comments: PATIENT NOT FASTINGPERFORMED BY: [facility]baseT[facility]on Psych[facility] HospitalIhkosn1294 [facility] [id number] Information: [id number] (28422) Immature Grans (Abs) 0.0 {x10E3/uL} (Normal) Range: [...] 6.5 {x10E3/uL} (Normal) Range: 3.4-10.8 :38 Lipase (45619) Comments: PATIENT NOT FASTINGPERFORMED BY: VoicebaseTrenton Psych[facility] HospitalHrorvj8424 [facility] [id number] Lipase, Serum 19 U/L (Normal) Range: 0-59 :38 Amylase (86997) Comments: PATIENT NOT FASTINGPERFORMED BY: [facility]6370 [facility] [id number] Amylase, Serum 32 U/L (Normal) Range: 31-124 4-Rgd-029122:38 Metabolic Panel, Comprehensive Comments: PATIENT NOT FASTINGPERFORMED BY: [facility]6370 [facility] [id number] (57140) ALT (SGPT) 17 [iU]/L (Normal) Range: 0-32 [...] (Abnormal) Range: 65-99 :28 HgA1C , Office (85312) HgA1C , Office 7.9 % (Abnormal) Range: 4.6 - 7.1 :28 Blood Glucose , Office (69286) Blood Glucose , Office 170 (Normal) :05 HgA1C , Office (87549) HgA1C , Office 7.5 % (Abnormal) Range: 4.6 - 7.1 :05 Blood Glucose , Office (52212) Blood Glucose , Office 267 (Normal) :19 [...] 200 mg/dLsuggests DIABETES MELLITUS per A.D.A. criteria. 1-Irx-608423:19 TSH 2.09 {uIU/mL} (Normal) Comments: DR FRANCISCO ORDERED CMP CBCDDR BONEZZZeny ORDERED CMP CBCD Range: 0.358-3.74 :03 HgA1C , Office (27666) HgA1C , Office 9.1 % (Abnormal) Range: 4.6 - 7.1 :03 Blood Glucose , Office (29569) Blood Glucose , Office 136 (Normal) 26-Grl-361744:22 Blood Glucose , Office (65222) Blood Glucose , Office 204 (Normal) 19-Uqk-398874:21 HgA1C , Office (44031) HgA1C , Office 7.3 % (Abnormal) Range: 4.6 - 7.1 :45 HgA1C , Office (52116) HgA1C , Office 7.3 % (Abnormal) Range: 4.6 - 7.1 :45 Blood Glucose , Office (57192) Blood Glucose , Office 176 (Normal) Comments: [...] 126 mg/dLsuggests DIABETES MELLITUS per A.D.A. criteria. 36-Kiw-806206:33 HgA1C , Office (99712) HgA1C , Office 7.1 % (Normal) Range: 4.6 - 7.1 99-Zeb-141295:33 Blood Glucose , Office (57817) Blood Glucose , Office 127 (Normal) 87-Hgl-205970:40 CBC With Differential/Platelet Comments: PERFORMED BY: [facility]6370 [facility] [id number] Immature Grans (Abs) 0.0 {x10E3/uL} (Normal) Range: [...] 3.77-5.28 WBC 6.2 {x10E3/uL} (Normal) Range: 4.0-10.5 34-Jfo-384134:40 Comp. Metabolic Panel (14) Comments: PERFORMED BY: LabCoTrenton Psychiatric HospitalBtqslz1305 [facility] [id number] ALT (SGPT) 24 [iU]/L (Normal) Range: 0-32 [...] (Abnormal) TSH 3.580 {uIU/mL} Comments: PERFORMED BY: TM [facility]70 [facility] [id number] :40 (Normal) Range: 0.450-4.500 :38 PREALBUMIN (45018) Comments: PATIENT NOT FASTINGPERFORMED BY: TM [facility] Hgrebl3924 [facility] [id number] Information: ADD [id number] AND DRAW FEE 99 6660 Prealbumin 21 mg/dL (Normal) Range: 20-40 :35 HgA1C , Office (86944) HgA1C , Office 7.3 % (Abnormal) Range: 4.6 - 7.1 :01 HgA1C , Office (74278) HgA1C , Office 7.4 % (Abnormal) Range: 4.6 - 7.1 04-Cki-370501:46 HgA1C , Office (73282) HgA1C , Office 7.3 % (Abnormal) Range: 4.6 - 7.1 :46 Blood Glucose , Office (75299) Blood Glucose , Office 193 (Normal) :12 HgA1C , Office (35993) HgA1C , Office 6.7 % (Normal) Range: 4.6 - 7.1 86-Wjh-870842:12 Blood Glucose , Office (25438) Blood Glucose , Office 103 (Normal) 68-Cci-708195:26 CBCMD RBCM NORM C+C {NORMAL} (Normal) PE [...] 4.2-5.4 WBC 7.2 K/mm3 (Normal) Range: 4.4-11.0 75-Lqb-930338:26 CMP GAP 8 (Normal) Range: 5-15 CO2 [...] 7-18 GLU 80 mg/dL (Normal) Range: 70-110 68-Qel-419810:26 LIPID VLDL 12 mg/dL (Normal) Range: 5-40 [...] 10.9 mg/L (Normal) CREU 76.7 mg/dL (Normal) 28-Vcv-692683:21 HgA1C , Office (38379) HgA1C , Office 6.7 % (Normal) Range: 4.6 - 7.1 :21 Blood Glucose , Office (72299) Blood Glucose , Office 88 (Normal) 5-Ori-984327:06 CBCD SMEAR COMMENT SeeNote (Normal) Comments: Result: [...] (Normal) Range: 8-252 :30 HgA1C , Office (66119) HgA1C , Office 8.4 % (Abnormal) Range: 4.6 - 7.1 07-Vrm-122040:30 Blood Glucose , Office (21581) Blood Glucose , Office 232 (Normal) 22-Kte-955514:39 HgA1C , Office (85238) HgA1C , Office 8.2 % (Abnormal) Range: 4.6 - 7.1 83-Nma-893953:39 Blood Glucose , Office (88319) Blood Glucose , Office 181 (Normal) 45-Uzx-640236:20 CBCD,SMEAR DIFF Comments: ORDERED CBCD,CMPDR.ROSELYN ORDERED CBCMD,LIPID,CMP,MICROALB [...] mg/dL suggests DIABETES MELLITUS per A.D.A. criteria. 95-Ctv-664360:20 LIPID Comments: ORDERED CBCD,CMPDRLAWANDA ORDERED CBCMD,LIPID,CMP,MICROALB LDL [...] 200-240 mg/dL Borderline >240 mg/dL High Risk 34-Bja-531781:04 Blood Glucose , Office (49804) Blood Glucose , Office 244 (Normal) 19-Ibb-381019:36 HgA1C , Office (42250) HgA1C , Office 7.5 % (Abnormal) Range: 4.6 - 7.1 92-Poc-844531:36 Blood Glucose , Office (62227) Blood Glucose , Office 178 (Normal) 18-Mgq-933554:24 HgA1C , Office (87728) HgA1C , Office 6.8 % (Normal) Range: 4.6 - 7.1 82-Btj-142529:24 Blood Glucose , Office (38721) Blood Glucose , Office 141 (Normal) Comments: [...] mg/dL suggests DIABETES MELLITUS per A.D.A. criteria. 36-Hsm-770086:58 LIPID Comments: DR DEMPSEY ORDERED LIPID DR [...] mg/dL High Risk :02 HgA1C , Office (41021) HgA1C , Office 6.9 % (Normal) Range: 4.6 - 7.1 :02 Blood Glucose , Office (05826) Blood Glucose , Office 251 (Normal) :11 [...] DOT DIRECT 52 AU/mL (Normal) :54 ANTI-CCP 899821 > 250 {units} Range: 0-19 (Abnormal) Comments: [...] mm/h (Abnormal) Range: 0-30 :54 HB CORE [id number] SeeNote (Normal) Comments: Result: NegativePerformed at: [facility] [employer] [id number] Director: Yasmine Cabrera MD, Phone: [phone] at: [facility] [employer] [id number] Director: Jovani Odom MD, Phone: [phone] :[phone] HBsAg 6510 HB SURF AG 6510 SeeNote (Normal) Comments: Result: Negative :54 HEBSAB 6395 < 0.1 (Normal) Range: 0.00-0.99 Comments: Status of Immunity Anti-HBs Level Inconsistent with Immunity 0.00 - 0.99Consistent with Immunity >0.99.An Index Value of 1.00 is equivalent to 10 mIU/mL.However the magnitude of the Index Value is notindicative of the total amount of antibody present. :54 HEP C AB 469143 <0.1 (Normal) Range: 0.0-0.9 Comments: Negative: < 0.8Indeterminate 0.8 - 0.9Positive: > 0.9.In order to reduce the incidence of a false positiveresult, the CDC recommends that all s/co ratiosbetween 1.0 and 10.9 be confirmed with additionalRIBA or PCR testing. :54 RHEUMATOID FAC 539.0 {IU/mL} (Abnormal) :54 VIT D,25 08489 27.3 ng/mL (Abnormal) Range: 32.0-100.0 Comments: Recent studies consider the lower limit of 32.0 ng/mL to gloria threshold for optimal health.Alxeander MARY. J Nutr. 2004;135(2):317-22. 71-Rvt-982476:30 HAND,MIN 3 VIEWS (MT) Radiology Report See Note (Normal) Comments: Exam Number: [id number] CLINICAL:This a 64-year-old female patient with history of pain. X-RAY EXAMINATION RIGHT HAND TECHNIQUE:Three views of the hand. COMPARISON:None. FINDINGS:Normal visualized carpal bones. Normal metacarpal bones. Normal visualized phalanges. Normal carpal articulations. Normal metacarpophalangeal joints. There are degenerative changesof the interphalangeal joints. There is no d emonstrated soft tissue swelling. IMPRESSION:Chronic degenerative changes, as discussed above. Reported By: VIDHYA NORRIS 72-Esh-590778:29 HAND,MIN 3 VIEWS (MT) Radiology Report See Note (Normal) Comments: Exam Number: [id number] CLINICAL:This is a 64-year-old female patient with [...] as discussed above. Reported By: VIDHYA NORRIS 55-Fxa-235413:45 Anti-dsDNA Antibodies Comments: PATIENT WAS FASTINGPERFORMED BY: CB [facility] Txhvyg1912 [facility] [id number] BY: [address] [id number] Anti-DNA (DS) Ab Qn 1 {IU/mL} (Normal) Range: 0-9 Comments: Negative <5Equivocal 5 - 9Positive >9 24-Vmk-132893:45 Antinuclear Antibodies Comments: PATIENT WAS FASTINGPERFORMED BY: [employer] [id number] BY: [address] [id number] Direct DOT Direct Negative (Normal) C-Reactive Protein, 5.1 mg/L (Abnormal) Comments: PATIENT WAS FASTINGPERFORMED BY: [employer] [id number] BY: [address] [id number] :45 Quant Range: 0.0-4.9 17-Wza-705864:45 CBC With Differential/Platelet Comments: PATIENT WAS FASTINGPERFORMED BY: [employer] [id number] BY: [address] [id number] Hematology Comments: Note: (Normal) Comments: Verified by [...] >250 {units} Comments: PATIENT WAS FASTINGPERFORMED BY: [facility] [id number] BY: [employer] To Get Approved For[address] [id number] 3:45 (Abnormal) Range: 0-19 Comments: Negative <20Weak positive 20 - 39Moderate positive 40 - 59Strong positive >59 30-Vbz-406402:45 Comp. Metabolic Panel Comments: PATIENT WAS FASTINGPERFORMED BY: [facility] [id number] BY: [employer] Card To Get Approved For[address] [id number] (14) Alkaline Phosphatase, S 99 [iU]/L (Normal) [...] ng/mL (Normal) Comments: PATIENT WAS FASTINGPERFORMED BY: [facility] Bxpyrn2715 [facility] [id number] BY: [employer] To Get Approved For[address] [id number] 13:45 Range: 13-150 20-Aug-2009 Haptoglobin 252 mg/dL Comments: PATIENT WAS FASTINGPERFORMED BY: [employer] Qbxkul1963 [facility] [id number] BY: [employer] [id number] 13:45 (Abnormal) Range: 34-200 27-Orr-410888:45 Iron and TIBC Comments: PATIENT WAS FASTINGPERFORMED BY: [facility] HealthT[facility] HospitalThrnve[address] [place] [address] [id number] BY: [employer] Card To Get Approved For[address] [id number] Iron Bind.Cap.(TIBC) 384 ug/dL (Normal) Range: 250-450 Iron Saturation 6 % (Abnormal) Range: 15-55 Iron, Serum 24 ug/dL (Abnormal) Range: 35-155 UIBC 360 ug/dL (Normal) Range: 150-375 LDH 190 [iU]/L (Normal) Comments: PATIENT WAS FASTINGPERFORMED BY: [employer] [facility] [id number] BY: [employer] [id number] :45 Range: 100-250 :45 Lipid Panel With LDL/HDL Comments: PATIENT WAS FASTINGPERFORMED BY: [employer] [facility] [id number] BY: [employer] [id number] Ratio HDL Cholesterol 41 mg/dL (Normal) Comments: [...] 182 nmol/L Comments: PATIENT WAS FASTINGPERFORMED BY: [employer]70 [facility] [id number] BY: [employer] [id number] 3:45 Serum (Normal) Range: 73-376 Comments: The reference range for methylmalonic acid has been set at +3sd abovethe mean for healthy blood bank donors. In the clinical assessment ofpatients with megaloblastic anemias a cutoff of +3sd provides gr eaterspecificity in the diagnosis of the vitamin deficiency states,despite the sacrifice of some sensitivity. :45 PT and PTT Comments: PATIENT WAS FASTINGPERFORMED BY: [facility]6370 [facility] [id number] BY: [address] [id number] aPTT 29 {sec} (Normal) Range: 24-33 Comments: This test has not been validated for monitoring unfractionated heparintherapy. aPTT-based therapeutic ranges for unfractionated heparintherapy have not been established. For general guidelines onHeparin monitoring, refer to the [facility] Directory of Services. Prothrombin Time 11.1 {sec} Range: 8.7-11.5 (Normal) INR 1.1 (Normal) Range: 0.8-1.2 Comments: Reference interval is for non-anticoagulated patients..Suggested INR therapeutic range for Vitamin Kantagonist therapy:Standard Dose (moderate intensitytherapeutic range): 2.0 - 3.0Higher intensity therapeutic range 2.5 - 3.5 20-Aug-2009 Reticulocyte Count 2.4 % (Normal) Comments: PATIENT WAS FASTINGPERFORMED BY: [facility]6370 [facility] [id number] BY: [address] [id number] 13:45 Range: 0.5-3.0 20-Aug-2009 RPR Non Reactive Comments: PATIENT WAS FASTINGPERFORMED BY: [place] 5748970 [facility] [id number] BY: [address] [id number] 13:45 (Normal) 20-Aug-2009 Sedimentation 13 mm/h (Normal) Comments: PATIENT WAS FASTINGPERFORMED BY: [facility]6370 [facility] [id number] BY: [address] [id number] 13:45 Rate-Westergren Range: 0-30 20-Aug-2009 TSH 2.470 {uIU/mL} Comments: PATIENT WAS FASTINGPERFORMED BY: [facility]6370 [facility] [id number] BY: [facility] Nkluqpetjn1580 [facility] [id number] 13:45 (Normal) Range: 0.450-4.500 88-Qzt-986824:45 Vitamin B12 and Folate Comments: PATIENT WAS FASTINGPERFORMED BY: [facility] Rpqwdk6074 [place]ane [place] [id number] BY: [facility] Zqmuismwla0281 [facility] [id number] Folate (Folic Acid), Serum 10.5 ng/mL (Normal) Comments: Indeterminate: 2.2 - 3.0Deficient: <2.2 Vitamin B12 583 pg/mL (Normal) Range: 211-946 83-Vll-794854:18 HgA1C , Office (98703) HgA1C , Office 7.3 % (Abnormal) Range: 4.6 - 7.1 03-Ahn-398318:18 Blood Glucose , Office (99757) Blood Glucose , Office 167 (Normal) Plan of Care Name Dates Details Instructions Need for Tdap vaccination (Renamed from Need for ftcivsxdlw-bulcxal-mzttqqscy (Tdap) vaccine, adult/adolescent) : Follow up in 3 months Indication: Need for Tdap vaccination (Renamed from Need for enegemdakc-eyubxkj-pybmgekhz (Tdap) vaccine, adult/adolescent) Annual Medicare Phyiscal WITHOUT [...] Knee pain Planned Observations Metabolic Panel, Comprehensive (69011)Indication: Rheumatoid arthritis On: 96-Cia-777596:41 Request Comments: Mar 2017 MICROALBUMIN: CREATININE RATIO (91487) AND (91783)Indication: Diabetes mellitus type II, controlled On: 2-Rgb-304949:50 Request VITAMIN B12 AND FOLATES (66074)Indication: Diabetes mellitus type II, controlled On: 5-Hqa-365455:50 Request CALCIFEDIOL (43549)Indication: Diabetes mellitus type II, controlled On: 2-Dot-978970:50 Request TSH (THYROID STIMULATING HORMONE) (57947)Indication: Hypothyroidism On: 2-Syp-515894:50 Request LIPID PANEL (42856)Indication: Hypercholesteremia On: 1-Ivb-297281:50 Request METABOLIC PANEL, COMPREHENSIVE (07790)Indication: Diabetes mellitus type II, controlled On: 9-Rih-689533:50 Request CBC, PLATELETS & AUT DIFF (78790)Indication: Diabetes mellitus type II, controlled On: 2-Bfr-633424:49 Request IRON (01346)Indication: Anemia On: 09-Lye-534864:05 Request Blood Glucose , Office (00636)Indication: Diabetes mellitus type II, controlled On: 31-Sqr-08327:32 Request MICROALBUMIN: CREATININE RATIO (15305) AND (24498)Indication: Diabetes mellitus type II, controlled On: :06 Request VITAMIN B12 AND FOLATES (68895)Indication: Vitamin D deficiency On: 07-Ymy-818303:00 Request VITAMIN D, 1, 25-DIHYDROXY (14948)Indication: Vitamin D deficiency On: 58-Zzp-919008:00 Request LIPID PANEL (34658)Indication: Hypercholesteremia On: 79-Fgr-891511:00 Request METABOLIC PANEL, COMPREHENSIVE (28342)Indication: Diabetes mellitus type II, controlled On: 34-Ksn-932529:00 Request CBC, PLATELETS & AUT DIFF (82063)Indication: Diabetes mellitus type II, controlled On: 02-Dml-899209:59 Request TSH (THYROID STIMULATING HORMONE) (84249)Indication: Hypothyroidism On: :59 Request POTASSIUM SERUM (23471)Indication: Hyperkalemia On: 79-Lmx-227370:59 Request Comments: 2-3 weeks CALCIFIDIOL (10749) VIT D 25Indication: Vitamin D deficiency On: 15-Vjk-694519:34 Request TSH (70884)Indication: Hypothyroidism On: 54-Fve-099268:34 Request MICROALBUMIN: CREATININE RATIO (54159) AND (28374)Indication: Diabetes mellitus type II, controlled On: :34 Request URINALYSIS, W/ MICRO (72896)Indication: Diabetes mellitus type II, controlled On: :34 Request TSH (30559)Indication: Hypothyroidism On: :34 Request METABOLIC PANEL, COMPREHENSIVE (05925)Indication: Diabetes mellitus type II, controlled On: :34 Request LIPID PANEL (03472)Indication: Diabetes mellitus type II, controlled On: :34 Request CBC with auto diff (96955)Indication: Diabetes mellitus type II, controlled On: :34 Request CBC with auto diff (88686)Indication: Hypertension, benign On: 89-Lpw-775827: Request METABOLIC PANEL, COMPREHENSIVE (00485)Indication: Hypertension, benign On: 30-Mbu-493542:26 Request LIPID PANEL (04421)Indication: Hypertension, benign On: 44-Rxm-570952:26 Request TSH (01493)Indication: Hypothyroidism On: : Request CBC WITH MANUAL DIFF (25305)Indication: Hypertension, benign On: 92-Yhm-339128:21 Request METABOLIC PANEL, COMPREHENSIVE (46819)Indication: Hypertension, benign On: 68-Fbj-093320:21 Request TSH (77849)Indication: Hypothyroidism On: 39-Xwb-399064:21 Request Methymalonic Acid, Serum (04522)Indication: Thrombocytopenia, unspecified On: 86-Gvv-70865:48 Request Vitamin B-12 (cyanocobalamin) (89746)Indication: Thrombocytopenia, unspecified On: :48 Request CBC, Platelets & Auto Diff (73860)Indication: Thrombocytopenia, unspecified On: :48 Request Comments: citrate METABOLIC PANEL, COMPREHENSIVE (59465)Indication: Hypertension, benign On: :59 Request CBC WITH MANUAL DIFF (75599)Indication: Hypertension, benign On: 78-Vya-219909:59 Request TSH (88919)Indication: Hypothyroidism On: :29 Request METABOLIC PANEL, COMPREHENSIVE (99147)Indication: Hypertension, benign On: :29 Request Blood Glucose , Office (38184)Indication: Diabetes mellitus type II, controlled On: 83-Jww-758256:35 Request TSH (71240)Indication: Hypothyroidism On: :19 Request METABOLIC PANEL, COMPREHENSIVE (55356)Indication: Diabetes mellitus type II, controlled On: 10-Bws-083729:19 Request LIPID PANEL (38345)Indication: Diabetes mellitus type II, controlled On: 09-Lpn-816304:19 Request Blood Glucose , Office (94788)Indication: Diabetes mellitus type II, controlled On: 13-Owj-425747:01 Request TSH (50903)Indication: Thyroid disorder On: 46-Ylp-037353:29 Request MICROALBUMIN: CREATININE RATIO (32376) AND (59466)Indication: Diabetes mellitus type II, controlled On: : Request METABOLIC PANEL, COMPREHENSIVE (86682)Indication: Diabetes mellitus type II, controlled On: 60-Tid-543429: Request LIPID PANEL (46631)Indication: Diabetes mellitus type II, controlled On: : Request CBC WITH MANUAL DIFF (38563)Indication: Diabetes mellitus type II, controlled On: : Request CBC WITH MANUAL DIFF (59117)Indication: Diabetes mellitus type II, controlled On: 36-Obu-722606:52 Request MICROALBUMIN: CREATININE RATIO (80183) AND (60645)Indication: Diabetes mellitus type II, controlled On: 43-Whv-438548:29 Request METABOLIC PANEL, COMPREHENSIVE (13603)Indication: Diabetes mellitus type II, controlled On: 84-Uoc-431747:29 Request LIPID PANEL (56282)Indication: Diabetes mellitus type II, controlled On: 45-Dbx-169717:29 Request CBC WITH MANUAL DIFF (79539)Indication: Diabetes mellitus type II, controlled On: 32-Fww-135733:29 Request FERRITIN (51743)Indication: Anemia On: 0-Saf-972573:26 Request CBC with manual diff (10716)Indication: Anemia On: 29-May-20119:12 Request HgA1C , Office (05725)Indication: Diabetes mellitus type II, controlled On: 37-Mhb-706351:04 Request METABOLIC PANEL, COMPREHENSIVE (43072)Indication: Hypercholesteremia On: 10-Gkk-830999:15 Request LIPID PANEL (46918)Indication: Hypercholesteremia On: 31-Msw-236167:15 Request Lipid Panel (91542)Indication: Hypercholesteremia On: 07-Xrn-483778:50 Request RPR (RAPID PLASMA REAGIN) (52099)Indication: Neuropathy On: 44-Uqa-258037:48 Request TSH (80245)Indication: Thyroid disorder On: 73-Wfj-941870:48 Request HAPTOGLOBIN (51940)Indication: Anemia On: :46 Request PTT (Activated Partial Thromboplastin Time) (54326)Indication: Anemia On: 46 Request PT (Prothrobim Time) (11552)Indication: Anemia On: :46 Request RETICULOCYTE COUNT (90244)Indication: Anemia On: :46 Request LDH (LD) (LACTATE DEHYDROGENASE) (60742)Indication: Anemia On: :46 Request Methylmalonic acid, serum 37824Rvswxlaqrv: Anemia On: 46 Request Vitamin B-12 (cyanocobalamin) (57044)Indication: Anemia On: :46 Request Iron Binding Capacity (TIBC) (37959)Indication: Anemia On: :46 Request Iron (90298)Indication: Anemia On: :46 Request Folic Acid Serum (85648)Indication: Anemia On: :46 Request Ferritin (16630)Indication: Anemia On: 63-Nht-156490:46 Request DNA ANTIBODY-NATV/DBL ST (00984)Indication: Pain in unspecified joint On: :46 Request CCP ANTIBODY (28870)Indication: Pain in unspecified joint On: 93-Qel-456265:45 Request SED RATE ERYTHROCYTE (89876)Indication: Pain in unspecified joint On: 31-Noe-283720:45 Request C-REACTIVE PROTEIN (44333)Indication: Pain in unspecified joint On: 99-Cqi-248791:45 Request TSH (00391)Indication: Pain in unspecified joint On: 51-Roz-390550:45 Request RHEUMATOID FACTOR-QUANT (79325)Indication: Pain in unspecified joint On: :45 Request DOT (ANTINUCLEAR ANTIBODY) (62553)Indication: Pain in unspecified joint On: 08-Dfl-733519:45 Request CBC WITH MANUAL DIFF (40169)Indication: Pain in unspecified joint On: 72-Jwd-274156:45 Request METABOLIC PANEL, COMPREHENSIVE (86320)Indication: Pain in unspecified joint On: 62-Vnp-228180:45 Request Planned Encounters Medical; 3 Month FU - On: 24-May-2018 9:30 [facility] Mayra Goodman CNP, CNP, Mary E Planned Procedures TDAP VACCINE >7 IM (01245)By: Maxine On: 20-Feb-2018 Intent Mayra HINTON CNP, Mary E DEXA SCAN AXIAL SKELETON (01872)By: On: 20-Feb-2018 Intent Mayra Goodman CNP, CNP, Mary E Flu Vaccine (Quadrivalent) 65592Ku: On: 30-Jan-2018 Intent Mayra Goodman CNP, CNP, Mary E Comments: Lot #[id number]/30/2019Site-L dltd, IMDose prefilled syringegiven by: TATYANA HART reviewed and ABN signed Flu Vaccine (Quadrivalent) 21755Sf: On: 10-Jan-2017 Intent Mayra Goodman CNP, CNP, Mary E Comments: Lot #[id number]/10/17ite-L dltd, IMDose prefilled syringegiven by:TATYANA Sutton and ABN signed Flu Vaccine (Quadrivalent) 31196Pz: On: 15-Dec-2015 Intent Rafael Thomas MD Comments: Lot #[id number]/30/17ite-L dltd, IMDose prefilled syringegiven by:TATYANA Sutton and ABN signed MRI OF CERVICAL SPINE WITHOUT On: 19-Jul-2015 Intent CONTRAST (63412)By: Katelyn Dempsey MD Ultrasound - RenalBy: Roselyn SORTO, On: 06-Jul-2015 Intent Katelyn Pedroza Renal Artery DopplerBy: Roselyn SORTO, On: 06-Jul-2015 Intent Katelyn Pedroza MRI OF CERVICAL SPINE WITH CONTRAST On: 06-Jul-2015 Intent (93387)By: Katelyn Dempsey MD EMGBy: Katelyn Dempsey MD On: 06-Jul-2015 Intent Nerve ConductionBy: Katelyn Dempsey MD On: 06-Jul-2015 Intent Yovany Comments: right arm MRI OF BRAIN WITH CONTRAST On: 06-Jul-2015 Intent (63536)By: Katelyn Dempsey MD Kenalog Injection, 10 mgm On: 01-Jun-2015 Intent (J3301)By: Katelyn Dempsey MD EKG (14974)By: Katelyn Dempsey MD On: 06-Oct-2014 Intent Comments: see scanned document of test done to see results reviewed today with patient Nuclear Stress Test/Stress On: 06-Oct-2014 Intent SPECT/AdenosineBy: Katelyn Dempsey MD Ultrasound - PelvisBy: Roselyn SORTO, On: 26-Jan-2014 Intent Katelyn Pedroza Flu Vaccine (Quadrivalent) 97484Wl: On: 26-Jan-2014 Intent Katelyn Dempsey MD Comments: [...] 03-Nov-2013 Intent (J3301)By: Katelyn Dempsey MD EKG (67030)By: Katelyn Dempsey MD On: 12-May-2013 Intent Comments: see scanned document of test done to see results reviewed today with patient ADMINISTRATION OF INFLUENZA VIRUS On: 11-Feb-2013 Intent VACCINE (G0008)By: Faviola Howell LPN Comments: Lot #[id number] dltd, IMDose prefilled syringegiven by:Tony and NISHI signed FLU VAC, SPLIT, >3 YEARS, INTRAMUSC On: 11-Feb-2013 Intent (69149)By: Faviola Howell LPN Eprescribed prescriptions (G8553)By: On: 11-Feb-2013 Intent Faviola Howell LPN Eprescribed prescriptions (G8553)By: On: 12-Nov-2012 Intent Dante JOLLEYNFaviola IMMUNIZ ADMNIN, 1 VAC, SNGL/COMBO On: 29-Aug-2012 Intent ([id number])By: Brayden FOOTEJoeyie [place]OST[place] VACC, [place] ([id number])By: Brayden On: 29-Aug-2012 Intent DARY Chante Eprescribed prescriptions (G8553)By: On: 13-Aug-2012 Intent Long PEELED POTATO INSPECTORFaviola Eprescribed prescriptions (G8553)By: On: 14-May-2012 Intent Dante PEELED POTATO INSPECTORFaviola L Solu -Medrol Injection, 125 mg On: 05-Apr-2012 Intent (J2930)By: Maxine HINTON, Mayra Goodman CNP, Ivonne ADMINISTRATION OF INFLUENZA VIRUS On: 12-Feb-2012 Intent VACCINE (G0008)By: HARESH Griffin FLU VAC, SPLIT, >3 YEARS, INTRAMUSC On: 12-Feb-2012 Intent ([id number])By: HARESH Griffin PNEUM VAC ADLT/IMUMNOSPR, SBC/INTRM On: 13-Nov-2011 Intent ([id number])By: Katelyn Dempsey MD Comments: Lot:Exp:[id number]:0.5mlRoute:L arm, IMGiven By:JKM ADMINISTRATION OF PNEUMOCOCCAL On: 13-Nov-2011 Intent VACCINE (G0009)By: Kaetlyn Dempsey MD Eprescribed prescriptions (G8553)By: On: 21-Jul-2010 Intent Katelyn Dempsey MD MAMMOGRAM, SCREENING, BOTH BREASTS On: 22-Apr-2010 Intent (37322)By: Katelyn Dempsey MD Radiology - Hand - BilateralBy: On: 06-Sep-2009 Intent Katelyn Dempsey MD Comments: copy to [facility] Planned Medications INJECTION, METHYLPREDNISOLONE SODIUM SUCCINATE, UP [...] SPECIFIED, 10 MG Ordered: 03-Nov-2013 Pending Katelyn eDmpsey MD INJECTION, TRIAMCINOLONE ACETONIDE, NOT OTHERWISE SPECIFIED, [...] controlled : DISCONTINUED - MICROALBUMIN: CREATININE RATIO (10977) AND (91058) Indication: Diabetes mellitus type II, controlled Iron [...] The patient does have durable power of managing attorney and living will. The patient has noticed dropping activities and interests, getting bored, staying at home rather than doing something new or going out and lack of energy. Other providers contributing to the patient's care are family court registrar (dr. morris), construction project mgr (dr. francisco) and other: (diabetic - dr. paredes- [facility]- 02/22/18).Encounter Diagnosis: BMI 35.0-35.9,adult, Current nonsmoker (Renamed from Current non-smoker), Annual Medicare Phyiscal WITHOUT abnormal findings (Renamed from Encounter for general adult medical examination without abnormal findings), Postmenopausal (Renamed from Postmenopausal status), Need for Tdap vaccination (Renamed from Need for qpttsoavbc-oejxqad-pbubchyut (Tdap) vaccine, adult/adolescent) [facility] Office Visit On: 30-Jan-2018 10:36 Encounter Reason: Forms - The patient presents to the office to be evaluate for scooter/wheelchair (see scanned in form filled out). Note for Forms: already had evaluation done by PT, just need PCP signatureDebility pr End: 30-Jan-2018 11:32 esents in [facility]. Sees Dr. Child recently treated by [...] for Transition into care: Was admitted to [facility] on Oct 28, 2016 with weakness un [...] deficiency, Rheumatoid arthritis, Blood in stool, Anemia, Holstein's, Anemia [facility] Office Visit On: [...] Nutrition: balanced diet and supplemental vitamins. The [place] dical issues the patient is following up [...] The patient does have durable power of managing attorney and living will. The patient has noticed nothing from the geriatic depression scale. Other providers contributing to the patient's care a re gastrologist ( @[facility] in [facility] for colonscopy ), construction project mgr (Dr. Francisco ) and other: (Amortization Schedule Clerk: Dr. Child , Pain Management: Dr. Mcfadden [...] patient does have du rable power of managing attorney and living will. The patient has noticed nothing from the geriatic depression scale. Other providers contributing to the patient's care are gastrologist ( @[facility] in [facility] for colonscopy ), construction project mgr (Dr. Francisco ) and other: (Amortization Schedule Clerk: Dr. Child , Pain Management: Dr. Mcfadden [...]
--- OUTSIDE RECORDS SUMMARY | 2018-04-22 10:22 | XMS RPT_ITS | Continuity of Care Document ---
:1945 Author Organization [facility] Address [address] [facility] [address] [place] [address] Phone Care Team Providers Name Role Phone [...] Fede Stent [address] Campa in [place] Status: Active Current nonsmoker (Renamed from Current [...] no vomiting, resoled after stopping trulicity(03/10)Junuvia on fdc345hd once daily Rageye exam yearly(12/09/15), catarctekg cardiology Dr Cross, stents 1 in 2003Podiatry: Dr Child [facility], every 3 months, Has multiple toe [...] Comments: Sees pain management Dr. Mcfadden at [facility], she prescribes lyrica, dose increased in [...] toprol BP stable sees Dr. 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 Status: Active Mitral valve stenosis (I05.0, 394.0) Comments: MODERATE: Saw Dr Cross (does not want to see him again, was told needs mitral valve replacement as is not candidate for valvuloplastyNew Dr : DR Kee Campa(garrett)per pt does not receomemd surgery at this [...] V49.72) Comments: June 2016 Dr. Child, [facility] Status: Active Ulcer of foot (L97.509, [...] for new wheelchair, she will look at [facility] to see what she would [...] Dempsey MD Start : 19-Jul-2015 Active Comments:E11.9NPI: [phone] PERCOCET, 7.5-325MG (Oral Tablet) 2 (two) Tablet [...] Quantity: 60 {Capsule} Refills: 3 Ordered:17-Oct-2017 Maxine SENIOR ETL DEVELOPER, Mayra Lin SENIOR ETL DEVELOPER, Ivonne Start : 17-Oct-2017 Active Accu-Chek FastClix [...] 31-Mar-2015 End : 01-Apr-2015 Inactive Comments:SSI: 151-200-1 jhoz367-514-1 units 138-129-1jdhcm 301-350-4 units 351-400-5 unitsover 400 give 5 [...] me sick as a dog Vitamin D3 32559 UNIT Oral Capsule 1 (one) Capsule once a week for 60 days Quantity: 8 {Capsule} Refills: 0 Ordered:15-Dec-2015 Rafael Thomas MD Start : 15-Dec-2015 End : 13-Feb-2016 Inactive ZOLPIDEM TARTRATE, 10MG (Oral Tablet) 1 Tablet qhs prn for 0 days Quantity: 30 {Tablet} Refills: 3 Ordered:31-Mar-2015 HARESH Griffin Start : 03-Nov-2013 End : 31-Mar-2015 Inactive Comments:thirty ZOSTAVAX, 80208BJY/0.65ML (Subcutaneous Solution Reconstituted) uad For Solution one [...] - PT Result: Comments: See Note; NOTES: [facility] [address] [place] [address] Fax REHABILITATION SERVICES INITIAL EVALUATION MR#: [id number] Acct: [id number] Name: TIA SERVIN Rep #: [id number] : 1945 72 From: Juanis Sanchez DPT Referring Dr.: Mayra Goodman MINK RANCHER Status: REG RCR Insurance: MEDICARE PART A B [facility] [facility] Patient's Visit Information TIA SERVIN [...] Scap: poor, Shoulder: 4-/5 throughout Elbow: 4-/5 Account Supervisor: poor - Goa ls Goal 1:: Patient [...] to be FAXED BACK to us at [phone] for Medicare purposes. Please let me know if there are questions or concerns regarding this plan of care. Physician Signature: Date: <Electronically signed by Juanis Sanchez DPT> 12/17/17 10 38 CC: Mayra Goodman NP ELR Signed For Medicare only, by signing this I certify the plan of care. Physicians Signature Date 05-Jan-2016 Stress Test Echo w/ Contrast Result: Comments: See Note; NOTES: [facility] Cardiovascular Services [address] [place] [address] Verdana 4d Stress Test Echo w/o Contrast MR#: [id number] Acct: [id number] Name: TIA MACARIO Rep #: [id number] : 1945 70 From: Pawan Cross MD [...] 30.00 DOBUTAMINE STAGE 4 1:12 12 5 151/42692.00 BASELINE 88 141/55 Stress Duration: 10:12 mm:ss [...] noted. abnormalities noted. EKG Data [facility] ECG displays normal sinus rhythm. During dobutamine [...] D ictated: 01/05/16 1037 Date Transcribed: 01/05/161603 Battery Loader: Signed 18-Nov-2015 Emergency Department Summary Result: Comments: See Note; NOTES: [facility] Medical Records Department [address] [place] [address] Emergency Department Summary MR#: [id number] Acct: [id number] Name: JC SERVIN Rep #: [id number] : 1945 70 From: Jose Mccain MD [...] Charcot. Jose Mccain M.D. T: NTS JOB: [id number] 11/18/15 0739 <Electronically signed by Jose Mccain MD> Date Jose Mccain MD Cosigner Signature (If Indicated): Date CC: Rafael Thomas Date Dictated: 11/10 Date Transcribed: 11/11/151715 Battery Loader: Signed 11-Nov-2015 Discharge Instruction Result: Comments: See Note; NOTES: [facility] Medical Records Department [address] [place] [address] Discharge Instruction 11/11/15 1451 MR#: [id number] Acct: [id number] Name: TIA SERVIN Rep #: [id number] : 1945 70 From: Jose Mccain MD [...] any unexpected problems, contact your doctor. Call [facility] ([phone]) or report to [facility] Emergency Room. Call 911 if necessary. 11/11/15 3295 <Electronically signed by Jose Mccain MD> Date Jose Mccain MD Cosigner Signature (If Indicated): Date CC: Rafael Thomas 11-Nov-2015 Ankle min 3 Views Result: Comments: See Note; NOTES: [facility] Imaging Services [address] [place] [address] Verdana 4d Ankle min 3 Views MR#: [id number] Acct: [id number] Name: TIA SERVIN Rep #: [id number] : 1945 F 70 From: Clemencia Holden MD PCP: Rafael Thomas Status: [facility] Study: Ankle min 3 Views Date of Exam: 11/11/15 Exam# [id number] Ordering Dr: Jose Mccain MD STUDY: X-RAY [...] MD at 14:20 EDT , Service support [phone], CC: Jose Mccain; Rafael Thoams Battery Loader: Signed 11-Nov-2015 Foot min 3 Views Result: Comments: See Note; NOTES: [facility] Imaging Services [address] [place] [address] Verda 4d Foot min 3 Views MR#: [id number] Acct: [id number] Name: TIA SERVIN Rep #: [id number] : 1945 F 70 From: Clemencia Holden MD PCP: Rafael Thomas Status: [facility] Study: Foot min 3 Views Date of Exam: 11/11/15 Exam# [id number] Ordering Dr: Jose Mccain MD STUDY: X-RAY [...] MD at 14:26 EDT cf, Service support [phone], CC: Jose Mccain; Rafael Thomas Battery Loader: Signed 08-Nov-2015 PT D/C Summary (1) Result: Comments: See Note; NOTES: [facility] [address] [place] [address] Fax REHABILITATION SERVICES DISCHA RGE SUMMARY MR#: [id number] Acct: [id number] Name: TIA SERVIN Rep #: [id number] : 1945 70 From: Laura Wright PT, Cert. MDT Referring Dr.: OUT OF [facility] DOCTOR Status: REG RCR Insurance: MEDICARE PART A B [facility] - PT D/C Summary It has been [...] TO FOLLOW UP WITH DR. LAY IN [place] SUNDAY. SHE REPORTS SHE DOES NOT WANT [...] - PT Result: Comments: See Note; NOTES: [facility] [address] [place] [address] Fax REHABILITATION [facility] INITIAL EVALUATION MR#: [id number] Acct: [id number] Name: TIA SERVIN Rep #: [id number] : 1945 70 From: Cert. MACARIO Rowe PTT Referring Dr.: Georgi Lay MD Status: R EG RCR Insurance: MEDICARE PART A B [facility] Patient's Visit Information TIA SERVIN is [...] [facility] AND THEN A [facility] FOR A MONTH TO TRY TO GET HER STRENGTH BACK. PATIENT REPORTS SHE ALSO HAS A HISTORY OF LUMBAR PRO BLEMS AND THEY ARE WORSENING. Recent major surgery: RENETTA LE TOE AMPUTATIONS AND OPEN SORES ON TOES CURRENTLY. HEART CATH/STENTS. RA AND OA. SOCIAL: LIVES ALONE. 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 OTHER: PATIENT REPORTS SHE DOES NOT DO WELL IN THERAPY. SHE STATES IT USUALLY CAUSES TOO MUCH PAIN. I ACHE SO BAD WHEN I DO THERAPY. PATIENT REPORTS THEY PUT HER IN THERAPY AT THE [facility] AND S HE COULDN'T DO MUCH. - [...] to be FAXED BACK to us at [phone] for Medicare purposes. Please let m e [...] PT (1) Result: Comments: See Note; NOTES: [facility] [address] [place] [address] Fax REEVALUATION / ME DICARE RECERTIFICATION [place] 4d PHYSICAL THERAPY MR#: [id number] Acct: [id number] Name: TIA SERVIN Rep #: [id number] : 1945 70 From: Laura Wright PT, CertWinston SORTOT Referring Dr.: Wandy Lay MD Status: REG RCR Insurance: MEDICARE PART A B [employer] Georgi Lay MD, It has been my [...] do not hesitate to contact me at [phone] by phone or if you have questions or concerns regarding this new plan of care! Sincerely, Laura Wright <Electronically signed by Laura Wright PT, CertWinston SORTOT> 10/07/15 6172 CC: Georgi Lay MD; Rafael Thomas DT: JH Signed For Medicare only, by signing this I certify the plan of care. Physicians Signature Date 24-Aug-2015 NCS and/or EMG Patient Result: Comments: See Note; NOTES: [facility] Pulmonary Services/Neurology [address] [place] [address] NCS and/or EMG Patient MR#: [id number] Acct: [id number] Name: TIA MARTINEZ Rep #: [id number] : 1945 70 From: Jakob Pino MD [...] median mononeuropathy. This is consistent with a ffia-un-doesotaq right carpal tunnel syndrome. 2. Electrodiagnostic findings demonstrate acute right-sided C5 radiculopat hy. If there are any questions in regards to this exam, please do not hesitate to contact me. Jakob Pino MD T: NTS JOB: [id number] 08/24/15 1521 <Electronically signed by Jakob Pino MD> Date Jakob Pino MD CC: Jakob Pino; Katelyn Dempsey MD Date Dictated: 08/18/151257 Date Transcribed: 08/18/151257 Battery Loader: Signed 20-Jul-2015 Renal Artery Duplex Result: Comments: See Note; NOTES: [facility] Cardiovascular Services [address] [place] [address] Renal Artery Duplex Ultrasound 07/20/15 0853 MR#: [id number] Acct: [id number] Name: TIA SERVIN Rep #: [id number] : 1945 70 From: [place] Faulkner MD [...] Dictated: 07/20/15 0853 Date Transcribed: 07/20/15 1210 Battery Loader: Signed 20-Jul-2015 Kidney and Bladder Result: Comments: See Note; NOTES: [facility] Imaging Services [address] [place] [address] Verdana 4d Kidney and Bladder MR#: [id number] Acct: [id number] Name: TIA SERVIN Rep #: [id number] : 1945 F 70 From: Arabella Peace MD PCP: Katelyn Dempsey MD Status: REG CLI Study: Kidney and Bladder Date of Exam: 07/20/15 Exam# [id number] Ordering Dr: Katelyn Dempsey MD STUDY: RENAL [...] MD at 13:01 EDT , Service support [phone], CC: Katelyn Dempsey MD Battery Loader: Signed 20-Jul-2015 Brain W/WO Contrast Result: Comments: See Note; NOTES: [facility] Imaging Services [address] [place] [address] Verdana 4d Brain W/WO Contrast MR#: [id number] Acct: [id number] Name: TIA SERVIN Rep #: [id number] : 1945 F 70 From: Arabella Peace MD PCP: Katelyn Dempsey MD Status: REG CLI Study: Brain W/WO Contrast Date of Exam: 07/20/15 Exam# [id number] Ordering Dr: Moe Dempsey MD STUDY: MRI [...] MD at 12:28 EDT , Service support [phone], CC: Katelyn Dempsey MD Battery Loader: Signed 20-Jul-2015 Spine Cervical (Routine) Result: Comments: See Note; NOTES: [facility] Imaging Services [address] [place] [address] Verdana 4d Spine Cervical (Routine) MR#: [id number] Acct: [id number] Name: TIA ANDRADE Rep #: [id number] : 1945 F 70 From: Arabella Peace MD PCP: Katelyn Dempsey MD Status: REG CLI Study: Spine Cervical (Routine) Date of Exam: 07/20/15 Exam# [id number] Ordering Dr: Katelyn Irby MD STUDY: MRI [...] at 11:49 ED T , Service support [phone], CC: Katelyn Dempsey MD Battery Loader: Signed 17-Jun-2015 Echocardiogram Complete Result: Comments: See Note; NOTES: [facility] Cardiovascular Services [address] [place] [address] Echo Complete 06/17/15 0753 MR#: [id number] Acct: [id number] Name: TIA ANDRADE Rep #: [id number] : 1945 70 From: Pawan Cross MD [...] Date Dictated: 06/17/15 0753 Date Transcribed: 06/17/151056 Battery Loader: Signed 04-Mar-2015 Brain/Head without Contrast Result: Comments: See Note; NOTES: [facility] Imaging Services [address] [place] [address] Verdana 4d Brain/Head without Contrast MR#: [id number] Acct: [id number] Name: TIA SERVIN Rep #: [id number] : 1945 F 69 From: Kahlil Waters PCP: Roselyn SORTO,Katelyn Status: REG ER Study: Brain/Head without Contrast Date of Exam: 03/04/15 Exam# [id number] Esteban rivera Dr: Oleg Nash MD STUDY: [...] 0 at 3:47 EST , Service support [phone], CC: Katelyn Dempsey MD; Oleg Nash M.D. 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 [place], [place], [address] Absolute Lymph 1.06 {X10_3/ul} (Normal) Range: 0.83-4.51 [...] 4.2-5.4 WBC 6.4 K/mm3 (Normal) Range: 4.4-11.0 0-Fui-276216:11 Comprehensive Metabolic Profil Comments: [facility] [address] [place], [address] GAP 14 (Normal) Range: 5-15 CO2 24.0 [...] A.D.A. criteria.Please note revised GLUCOSE reference range bhhpivyez37/02/2018. 42-Yqt-076463:01 HgA1C , Office (45537) Comments: 5.8 HgA1C , Office 5.8 % (Normal) Range: 4.6 - 7.1 77-Ivw-193422:00 Blood Glucose , Office (29720) Comments: 99 Blood Glucose , Office 99 (Normal) 42-Nik-17168:19 Comprehensive Metabolic Profil Comments: [facility] [address] [place], [address] GAP 11 (Normal) Range: 5-15 CO2 26.0 [...] A.D.A. criteria.Please note revised GLUCOSE reference range yxqbziytt60/02/2018. :19 Hemoglobin A1c Comments: [facility] [address] [place], [address] HGB A1C 5.6 % (Normal) Range: 4.2-6.3 09-Ahg-31068:19 Thyroid Stim Hormone (TSH) Comments: [facility] [address] [place], [address] TSH 2.33 {uIU/mL} (Normal) Range: 0.358-3.74 :19 Vitamin D,25 Hydroxy Comments: [facility] [address] [place], [address] Vitamin D 25-OH 37.3 ng/mL (Normal) Range: 29.95-100.01 Comments: Vitamin D 25(OH) Status Range Deficiency <20 ng/mL (50nmol/L) Insuffciency 20 - 30 ng/mL (50 - 75 nmol/L) Sufficiency 30 - 100 ng/mL (75 - 250 nmol/L) Toxicity >100 ng/mL (>250 nmol/L) 35-Opp-763575:01 CBC W/Diff, Automated Comments: [facility] [address] [place], [address] Absolute Lymph 1.26 {X10_3/ul} (Normal) Range: 0.83-4.51 [...] 4.2-5.4 WBC 7.4 K/mm3 (Normal) Range: 4.4-11.0 88-Suv-658842:01 Comprehensive Metabolic Profil Comments: [facility] [address] [place], [place], [address] GAP 10 (Normal) Range: 5-15 CO2 25.0 [...] A.D.A. criteria.Please note revised GLUCOSE reference range falnabdvt90/02/2018. 56-Zqg-856588:34 CALCIFEDIOL (82284) Comments: PATIENT NOT FASTINGPERFORMED BY: [facility] Center[facility]jrdkh[facility]81 [facility] [id number] Vitamin D, 25-Hydroxy 30.2 ng/mL (Normal) Range: 30.0-100.0 Comments: Vitamin D deficiency has been defined by the [place] ofTri[facility] and an Endocrine Society practice guideline as alevel of serum 25-OH vitamin D less than 20 ng/mL (1,2).The Endocrine Society went on to further define vitamin Dinsufficiency as a level between 21 and 29 ng/mL (2).1. IOM ([place] of Medicine). 2010. Dietary reference intakes for calcium and D. [place]: The National Academies Press.2. Brandon MF, Bakari BOYD, Vicente IZAGUIRRE, et al. Evaluation, treatment, and prevention of vitamin D deficiency: an Endocrine Society clinical practice guideline. JCEM. 2010; 96(7):1911-30. 25-Jul-20179:41 Comprehensive Metabolic Profil Comments: [facility] [address] [place], [place], [address] GAP 10 (Normal) Range: 5-15 CO2 24.0 [...] A.D.A. criteria.Please note revised GLUCOSE reference range rqoqhxncj34/02/2018. :41 Hemoglobin A1c Comments: [facility] [address] [place], [place], [address] HGB A1C 5.8 % (Normal) Range: 4.2-6.3 :41 Lipid Profile Comments: [facility] [address] [place], [place], [address] VLDL 45 mg/dL (Abnormal) Range: 5-40 LDL [...] High Risk 25-Jul-20179:41 Microalb:Creat Ratio,Random UR Comments: [facility] [address] [facility] [address] [place], [place], [address] MALB:CREAT 14.8 {mg/g_CRE} (Normal) MICROALBUMIN,UR 46.0 mg/L (Normal) UR CREAT 310.00 mg/dL (Normal) 25-Jul-20179:41 Thyroid Stim Hormone (TSH) Comments: [facility] [address] [place], [place], [address] TSH 1.96 {uIU/mL} (Normal) Range: 0.358-3.74 76-Ber-519972:18 CBC W/Diff, Automated Comments: [facility] [address] [facility] [address] [place], [place], [address] Absolute Lymph 1.08 {X10_3/ul} (Normal) Range: 0.83-4.51 [...] 4.2-5.4 WBC 4.7 K/mm3 (Normal) Range: 4.4-11.0 59-Caf-832943:18 Comprehensive Metabolic Profil Comments: [facility] [address] [place], [address] GAP 7 (Normal) Range: 5-15 CO2 26.0 mmol/L (Normal) Range: 21.0-32.0 CL 107 mmol/L (Normal) Range: 98-107 K 4.8 mmol/L (Normal) Range: 3.5-5.1 NA 140 mmol/L (Normal) Range: 136-145 T BILI 0.60 mg/dL (Normal) Range: 0.20-1.00 ALT 16 U/L (Normal) Range: 13-56 Comments: Please note revised ALT reference range bctwamtdp64/28/2018. ALK P 63 U/L (Normal) Range: 45-117 [...] A.D.A. criteria.Please note revised GLUCOSE reference range rnhnujrcj54/02/2018. 1-Tyo-711853:40 CALCIFEDIOL (14840) Comments: PATIENT NOT FASTINGPERFORMED BY: [facility] CenterPyamku5663 [facility] [id number] Vitamin D, 25-Hydroxy 31.0 ng/mL (Normal) Range: 30.0-100.0 Comments: Vitamin D deficiency has been defined by the [place] ofMedicine and an Endocrine Society practice guideline as alevel of serum 25-OH vitamin D less than 20 ng/mL (1,2).The Endocrine Society went on to further define vitamin Dinsufficiency as a level between 21 and 29 ng/mL (2).1. IOM ([place] of Medicine). 2010. Dietary reference intakes for calcium and D. [place]: The National Academies Press.2. Brandon MF, Bakari NC, Vicente IZAGUIRRE, et al. Evaluation, treatment, and prevention of vitamin D deficiency: an Endocrine Society clinical practice guideline. JCEM. 2010; 96(7):1911-30. 7-Coo-553892:20 Crystals, Body Fluid Comments: [facility] [address] [place], [address] PATH REV Reviewed (Normal) Comments: Negative for malignant cells and crystals.Acute inflammation.Clinical correlation necessary.Jacinto Herrera M.D. 03/28/17 AMENDED REPORT 03/28/17 1357 PATH REV previously reported as: Will follow SOURCE/BF SYNOVIAL (Normal) CRYSTALS/BF SEE PATH REV (Normal) 6-Sfz-650301:20 Culture, Body Fluid Comments: [facility] [address] [place], [place], [address] ; dr redd ALASF See Note (Normal) [...] DAYS Cult, AnaerobicNo growth in 5 days. 1-Fon-071364:20 Synovial Fluid RBC, WBC AND Comments: [facility] [address] [place], [place], [address] ; dr rainey Diff PATH COM/SYFL May [...] Comments: YELLOW/RED SYNOVIAL SOURCE RIGHT KNEE (Normal) 52-Qda-97965:53 CBC W/Diff, Comments: PLEASE FAX RESULTS TO [id number] PT REQUEST.[facility] [address] [facility] [place], [place], [address] ; dr barba Automated Absolute Lymph 0.89 [...] 4.2-5.4 WBC 6.3 K/mm3 (Normal) Range: 4.4-11.0 20-Dwa-70601:53 Comprehensive Comments: PLEASE FAX RESULTS TO [id number] PT REQUEST.[facility] [address] [facility] [address] [place], [place], [address] Metabolic Profil GAP 10 (Normal) Range: 5-15 [...] Hemoglobin A1c Comments: PLEASE FAX RESULTS TO [id number] PT REQUEST.[facility] [address] [facility] [address] [place], [place], [address] HGB A1C 6.9 % (Abnormal) Range: 4.2-6.3 :53 Lipid Profile Comments: PLEASE FAX RESULTS TO [id number] PT REQUEST.[facility] [address] [place], [place], [address] VLDL 29 mg/dL (Normal) Range: 5-40 LDL [...] 200-240 mg/dL Borderline >240 mg/dL High Risk 72-Wjo-06678:53 Thyroid Stim Comments: PLEASE FAX RESULTS TO [id number] PT REQUEST.[facility] [address] [facility] [address]. [place], [place], [address] Hormone (TSH) TSH 1.69 {uIU/mL} (Normal) Range: 0.358-3.74 04-Hqj-627848:59 HgA1C , Office (19820) HgA1C , Office 6.4 % (Normal) Range: 4.6 - 7.1 20-Hxf-434078:59 Blood Glucose , Office (67929) Blood Glucose , Office 213 (Normal) 00-Unw-400866:27 CBC W/Diff, Automated Comments: SHARE RESULTS WITH DERRICK FOR [facility] [address] [place], [place], [address] Absolute Lymph 1.20 {X10_3/ul} (Normal) Range: 0.83-4.51 [...] 4.2-5.4 WBC 6.1 K/mm3 (Normal) Range: 4.4-11.0 42-Rqd-356462:27 Comprehensive Metabolic Profil Comments: SHARE RESULTS WITH DERRICK FOR [facility] [address] [place], [place], [address] GAP 11 (Normal) Range: 5-15 CO2 23.0 [...] 200 mg/dLsuggests DIABETES MELLITUS per A.D.A. criteria. 91-Dlk-921844:05 Comprehensive Metabolic Profil Comments: [facility] [address] [place], [address] GAP 9 (Normal) Range: 5-15 CO2 24.0 [...] 126 mg/dLsuggests DIABETES MELLITUS per A.D.A. criteria. 44-Asq-445918:05 Hemoglobin A1c Comments: [facility] [address] [place], [address] HGB A1C 6.7 % (Abnormal) Range: 4.2-6.3 57-Pgf-699400:05 Thyroid Stim Hormone (TSH) Comments: [facility] [address] [place], [address] TSH 3.02 {uIU/mL} (Normal) Range: 0.358-3.74 04-Gmz-709026:05 Vitamin D,25 Hydroxy Comments: [facility] [address] [place], [address] Vitamin D 25-OH 23.5 ng/mL (Normal) Comments: Vitamin D 25(OH) Status Range Deficiency <20 ng/mL (50nmol/L) Insuffciency 20 - 30 ng/mL (50 - 75 nmol/L) Sufficiency 30 - 100 ng/mL (75 - 250 nmol/L) Toxicity >100 ng/mL (>250 nmol/L) 40-Bjh-497559:56 HgA1C , Office (74664) HgA1C , Office 6.3 % (Normal) Range: 4.6 - 7.1 :56 Blood Glucose , Office (95420) Blood Glucose , Office 194 (Normal) 67-Bij-663252:37 CBC W/Diff, Automated Comments: [facility] [address] [place], [address] ; another doc Absolute Lymph 1.29 {X10_3/ul} [...] 4.2-5.4 WBC 7.6 K/mm3 (Normal) Range: 4.4-11.0 20-Kpy-128563:37 Comprehensive Metabolic Profil Comments: [facility] [address] [place], [address] GAP 7 (Normal) Range: 5-15 CO2 29.0 [...] 126 mg/dLsuggests DIABETES MELLITUS per A.D.A. criteria. 21-Xds-47140:37 Basic Metabolic Profile Comments: Order Date: 12/03/15DRKARLA KEE LIVER,LIPIDDR.DERRICK KEE BMPInterface Comments: 12 hours fasting, may have water.Order Date: 12/03/15[facility] [address] [place], [place], [address] (BMP) GAP 4 (Abnormal) Range: 5-15 CO2 [...] 12 hours fasting, may have water.Order Date: 12/03/15[facility] [address] [place], [place], [id number] VLDL 18 mg/dL (Normal) Range: 5-40 LDL [...] 12 hours fasting, may have water.Order Date: 12/03/15[facility] Qklnlivbru1963 Norma GuevaraWinston [place], [place], [address] D BILI 0.11 mg/dL (Normal) Range: 0.00-0.30 T BILI 0.40 mg/dL (Normal) Range: 0.20-1.00 ALT 14 U/L (Normal) Range: 12-78 ALK P 47 U/L (Normal) Range: 45-117 AST 12 U/L (Abnormal) Range: 15-37 GLOB 3.3 g/dL (Normal) Range: 2.3-3.5 ALB 2.8 g/dL (Abnormal) Range: 3.4-5.0 T PROT 6.1 g/dL (Abnormal) Range: 6.4-8.2 :40 HgA1C , Office (28459) HgA1C , Office 6.1 % (Normal) Range: 4.6 - 7.1 :40 Blood Glucose , Office (58919) Blood Glucose , Office 208 (Normal) :45 Culture, Body Fluid Comments: [facility] Teyxohutrb1328 [place], [address] CUBF See Note (Normal) Comments: List Antibiotics Last 48 Hours? UNKList Antibiotics to be Started? UNKComments: SYNOVIAL FLUID LEFT KNEE..Gram StainCentrifuged Specimen? Culture performed on centrifuged specimen Gram Stain 3+ Red Blood Cells 1+ White Blood Cells No organisms seen Body Fluid CultNO GROWTH IN 14 DAYS Cult, AnaerobicNo growth in 5 days. :45 Synovial Fluid RBC, WBC AND Comments: [facility] Znbrqcbqdj3512 [place], [address] Diff PATH COM/SYFL May follow (Normal) MONO [...] Yellow (Normal) SYNOVIAL SOURCE LEFT KNEE (Normal) 07-Hhu-005749:21 CBC W/Diff, Automated Comments: [facility] Gssugeqpjt2866 [address]. [place], [place], [address] Absolute Lymph 1.21 {X10_3/ul} (Normal) Range: 0.83-4.51 [...] Range: 4.4-11.0 :21 Comprehensive Metabolic Profil Comments: [facility] Kbwdcsdddl4346 [address]a. [place], [place], [address] GAP 8 (Normal) Range: 5-15 CO2 23.0 [...] <126 mg/dLsuggests IMPAIRED HOMEOSTASIS per A.D.A. criteria. 5-Tlk-557918:31 CBC W/Diff, Automated Comments: [facility] Mrugmumzur5387 [address]. [place], [place], [address] Absolute Lymph 1.21 {X10_3/ul} (Normal) Range: 0.83-4.51 [...] 4.2-5.4 WBC 8.5 K/mm3 (Normal) Range: 4.4-11.0 5-Zig-786224:31 Comprehensive Metabolic Profil Comments: [facility] Mqxmgbapym2355 [address] [place], [place], [address] GAP 9 (Normal) Range: 5-15 CO2 27.0 [...] 126 mg/dLsuggests DIABETES MELLITUS per A.D.A. criteria. 8-Ihq-637582:49 Blood Glucose , Office (43082) Blood Glucose , Office 219 (Normal) 5-Rqu-594347:49 HgA1C , Office (63696) HgA1C , Office 7.5 % (Abnormal) Range: 4.6 - 7.1 20-Mua-252384:27 C-Peptide Comments: [facility] (refer to report for specific site)refer to report for address and phone number C PEPTIDE 12765 7.0 ng/mL (Abnormal) Range: 1.1-4.4 Comments: C-Peptide reference interval is for fasting patients.Performed at: [address] [id number] Director: Lex Lai PhD, Phone: [phone] :[phone] CBC W/Diff, Automated Comments: [facility] Ywykrjxczk34[address] [facility], [address] ANISO 1+ (Normal) Absolute Lymph [...] 4.2-5.4 WBC 8.3 K/mm3 (Normal) Range: 4.4-11.0 63-Hdc-321070:27 Comprehensive Metabolic Profil Comments: [facility] Sflonekpjj4739 [place], [address] GAP 9 (Normal) Range: 5-15 CO2 25.0 [...] per A.D.A. criteria. :27 Hemoglobin A1c Comments: [facility] Qlqiuvsnsw0986 [place], [address] HGB A1C 7.5 % (Abnormal) Range: 4.2-6.3 :27 Microalb:Creat Ratio,Random UR Comments: [facility] Mchdulhfoe4[address] [place], [address] MALB:CREAT 6.7 {mg/g_CRE} (Normal) MICROALBUMIN,UR 9.6 mg/L (Normal) UR CREAT 144.00 mg/dL (Normal) :27 Miscellaneous Lab Procedure Comments: Test(s) Ordered: ISLET CELL ANTIBODY [id number] SERUM/[facility] Qsdctsgnpj9575 [place], [address] MISC Comments: TEST RESULT UNITS REFERENCE INTERVALAntipancreatic Islet Cells Negative Neg:<1:1 TEST LAB (Normal) ING PERFORMED AT [facility]. ORIGINAL REPORT ON FILE IN LAB CONTAINS ADDITIONAL TEST SITE INFORMATION. TEST :25 HAPTOGLOBIN (31397) Comments: PATIENT NOT FASTINGPERFORMED BY: [facility]6370 [facility] [id number] Haptoglobin 259 mg/dL (Abnormal) Range: 34-200 :25 SPEP (34039) Comments: PATIENT NOT FASTINGPERFORMED BY: [facility]6370 [facility] [id number] Please note: SPRCS (Normal) Comments: Protein electrophoresis scan will follow via computer, mail, orcourier delivery. A/G Ratio 0.9 (Normal) Range: 0.7-1.7 Globulin, Total 3.4 g/dL (Normal) Range: 2.2-3.9 M-Anam Not Observed g/dL (Normal) Gamma Globulin 0.8 g/dL (Normal) Range: 0.4-1.8 Beta Globulin 1.2 g/dL (Normal) Range: 0.7-1.3 Mmunc-7-Mtimylhc 1.1 g/dL (Abnormal) Range: 0.4-1.0 Hjufj-4-Vgufjsmv 0.3 g/dL (Normal) Range: 0.0-0.4 Albumin 3.2 g/dL (Normal) Range: 2.9-4.4 Protein, Total, Serum 6.6 g/dL (Normal) Range: 6.0-8.5 :25 UPEP (95196) Comments: PATIENT NOT FASTINGPERFORMED BY: [facility]6370 [facility] [id number] Please note: SPRCS (Normal) Comments: Protein electrophoresis scan will follow via computer, mail, orcourier delivery. M-Anam, % Not Observed % (Normal) Gamma Globulin, U 10.2 % (Normal) Beta Globulin, U 22.4 % (Normal) Khlib-6-Lbrwzqsf, U 9.8 % (Normal) Jyefk-9-Yznvfsur, U 1.8 % (Normal) Albumin, U 55.8 % (Normal) Protein,Total,Urine 42.4 mg/dL (Normal) 82-Iwf-562502:25 RETICULOCYTE COUNT BANNERL Comments: PATIENT NOT FASTINGPERFORMED BY: [facility]CoNew [facility] CenterMjvdgo4132 [facility] [id number] (82437) Reticulocyte Count 2.0 % (Normal) Range: 0.6-2.6 91-Feb-831676:25 IRON BINDING CAPACITY (TIBC) Comments: PATIENT NOT FASTINGPERFORMED BY: [facility]CoNew [facility] CenterSrwodm8296 [facility] [id number] (47593) Iron Saturation 4 % (Abnormal) Range: 15-55 Iron, Serum 14 ug/dL (Abnormal) Range: 27-139 UIBC 372 ug/dL (Abnormal) Range: 118-369 Iron Bind.Cap.(TIBC) 386 ug/dL (Normal) Range: 250-450 :25 FERRITIN (80907) Comments: PATIENT NOT FASTINGPERFORMED BY: [facility]CoNew [facility] Medical CenterIntygo2877 [facility] [id number] Ferritin, Serum 19 ng/mL (Normal) Range: 15-150 16-Cdm-035070:25 CBC, PLATELETS & AUT DIFF Comments: PATIENT NOT FASTINGPERFORMED BY: [facility] Ioobka9853 [facility] [id number] Information: [id number] (17559) Immature Grans (Abs) 0.0 {x10E3/uL} (Normal) Range: [...] (Normal) Range: 3.4-10.8 :32 HgA1C , Office (93293) HgA1C , Office 8.2 % (Abnormal) Range: 4.6 - 7.1 :16 CBC W/Diff, Automated Comments: DR.N THOMAS ORDERED TSH LIPID VITD CBCD B12 FOLOTES CMP MIACREDRKARLA ORDERED LIPID LIVERDR.MARYAM ORDERED CMP CBCDWA[facility]ita [facility] Rwwlownaff9668 [place], [place], [phone] OVALOCYTE 1+ (Normal) BASO STIP RARE (Normal) [...] Patient Taking Vitamins or Folic Acid Supplements? [facility]1761 [place], [address] GAP 9 (Normal) Range: 5-15 CO2 26.0 [...] Acid Supplements? [facility]1761 [place], [address] FOLATES 11.20 ng/mL (Normal) Range: 3.1-17.5 :16 Lipid Profile Comments: DR.N THOMAS ORDERED TSH LIPID VITD CBCD B12 FOLOTES [facility] RAMESH.VICENTE ORDERED LIPID LIVERDR.MARYAM ORDERED CMP CBCDIs Patient Taking Vitamins or Folic Acid Supplements? [facility]1761 [address]. [place], [place], [id number] VLDL 32 mg/dL (Normal) Range: 5-40 LDL [...] ORDERED TSH LIPID VITD CBCD B12 FOLOTES [facility] LUCÍA ORDERED LIPID LIVERDR.MARYAM ORDERED [facility] CBCDW[facility] Dobauoplmr6054 [address] [place], [place], [address] MALB:CREAT 7.5 {mg/g_CRE} (Normal) MICROALBUMIN,UR 10.1 mg/L (Normal) UR CREAT 135.00 mg/dL (Normal) :16 Thyroid Stim Hormone (TSH) Comments: DR.N THOMAS ORDERED TSH LIPID VITD CBCD B12 FOLOTES [facility] LUCÍA ORDERED LIPID LIVERDR.MARYAM ORDERED CMP CBCDIs Patient Taking Vitamins or Folic Acid Supplements? [facility] [place] dtwpttqe9301 [address] [place], [place], [address] TSH 1.90 {uIU/mL} (Normal) Range: 0.358-3.74 :16 Vitamin B12 324 pg/mL (Normal) Comments: DR.N THOMAS ORDERED TSH LIPID VITD CBCD B12 FOLOTES [facility] LUCÍA ORDERED LIPID LIVERDR.MARYAM ORDERED [facility] CBCDWexner [facility] Center Tylfbigosj9931 [address] [place], [place], [address] Range: 211-911 :16 Vitamin D,25 Hydroxy Comments: DR.N THOMAS ORDERED TSH LIPID VITD CBCD B12 FOLOTES [facility] LUCÍA ORDERED LIPID LIVERDR.MARYAM ORDERED [facility] Zgvuxpxsdw5367 [place], [phone] Vitamin D 25-OH 24.7 ng/mL (Normal) Comments: Vitamin D 25(OH) Status Range Deficiency <20 ng/mL (50nmol/L) Insuffciency 20 - 30 ng/mL (50 - 75 nmol/L) Sufficiency 30 - 100 ng/mL (75 - 250 nmol/L) Toxicity >100 ng/mL (>250 nmol/L) 8-Tvg-239924:25 OVA & PARASITE DIR SMEAR Comments: PATIENT NOT FASTINGPERFORMED BY: CoDa TherapeuticsSaint [facility] Hospital Nddtio7930 [facility] [id number] (90733) Result 1 NOCP (Normal) Comments: No ova, cysts, or parasites seen. Ova + Parasite Exam Final report (Normal) Comments: These results were obtained using wet preparation(s) and trichromestained smear. This test does not include testing for Cryptosporidiumparvum, Cyclospora, or Microsporidia. :25 OCCULT BLOOD FECES SCREEN Comments: PATIENT NOT FASTINGPERFORMED BY: [facility]Saint [facility] Poqsqo5194 [facility] [id number] (56526) Occult Blood, Fecal, IA Positive (Abnormal) :25 LEUKOCYTE COUNT, FECAL (46394) Comments: PATIENT NOT FASTINGPERFORMED BY: [facility]6370 [facility] [id number] Result 1 NWBC (Normal) Comments: No white blood cells seen. White Blood Cells (WBC), Final report (Normal) Stool :24 C-DIFFICILE, STOOL (87201) Comments: PATIENT NOT FASTINGPERFORMED BY: [facility]6370 [facility] [id number] Information: [id number] C difficile Toxins A+B, EIA Negative (Normal) :25 LAINE CULTURE-STOOL (56733) Comments: PATIENT NOT FASTINGPERFORMED BY: [place] 2515870 [facility] [id number] Information: SRC:STL [id number] E coli Shiga Toxin EIA Negative (Normal) Result 1 NCI (Normal) Comments: No Campylobacter species isolated. Campylobacter Culture Final report (Normal) Result 1 NSS (Normal) Comments: No Salmonella or Shigella recovered. Salmonella/Shigella Screen Final report (Normal) :22 Blood Glucose , Office (76762) Blood Glucose , Office 191 (Normal) :22 HgA1C , Office (60651) HgA1C , Office 7.4 % (Abnormal) Range: 4.6 - 7.1 :19 CBC W/Diff, Automated Comments: [facility] Vfuqjhgnnw0385 [place], [address] Absolute Lymph 1.86 {X10_3/ul} (Normal) [...] Range: 4.4-11.0 :19 Comprehensive Metabolic Profil Comments: [facility] Rhrkeozawt7472 [address]. [place], [place], [address] GAP 10 (Normal) Range: 5-15 CO2 24.0 [...] 126 mg/dLsuggests DIABETES MELLITUS per A.D.A. criteria. 68-Tpc-494972:50 CALCIFEDIOL (53210) Comments: PATIENT NOT FASTINGPERFORMED BY: [facility]6370 [facility] [id number] Vitamin D, 25-Hydroxy 20.8 ng/mL (Abnormal) Range: 30.0-100.0 Comments: Vitamin D deficiency has been defined by the [place] of[place]icine and an Endocrine Society practice guideline as alevel of serum 25-OH vitamin D less than 20 ng/mL (1,2).The Endocrine Society went on to further define vitamin Dinsufficiency as a level between 21 and 29 ng/mL (2).1. IOM ([place] of Medicine). 2010. Dietary reference intakes for calcium and D. [place]: The National Academies Press.2. Brandon MF, Bakari BOYD, Vicente IZAGUIRRE, et al. Evaluation, treatment, and prevention of vitamin D deficiency: an Endocrine Society clinical practice guideline. JCEM. 2010; 96(7):1911-30. 80-Amu-614295:50 POTASSIUM SERUM (46345) Comments: PATIENT NOT FASTINGPERFORMED BY: [facility] Duloan5158 [address] RoadDublin [place] [id number] Potassium, Serum 5.4 mmol/L (Abnormal) Range: 3.5-5.2 47-Mvu-659603:50 MAGNESIUM (34976) Comments: PATIENT NOT FASTINGPERFORMED BY: [facility] Pevlvb0133 Forrest RoadDublin [place] [id number] Magnesium, Serum 1.8 mg/dL (Normal) Range: 1.6-2.3 :50 AMMONIA (57243) Comments: PATIENT NOT FASTINGPERFORMED BY: [facility]Saint [facility]1447 [facility] [id number] BY: [facility] Qciloc6025 [address] RoadDublin [place] [id number] Ammonia, Plasma 40 ug/dL (Normal) Range: 19-87 84-Bkn-952367:50 SPEP (48738) Comments: PATIENT NOT FASTINGPERFORMED BY: [facility] Ifsmfl7672 Forrest RoadDublin [place] [id number] Information: [id number] Please note: SPRCS (Normal) Comments: Protein electrophoresis scan will follow via computer, mail, orcourier delivery. A/G Ratio 1.2 (Normal) Range: 0.7-2.0 Globulin, Total 3.0 g/dL (Normal) Range: 2.0-4.5 M-Anam Comment: g/dL (Normal) Comments: [facility] [place] [facility] Gamma Globulin 0.6 g/dL (Normal) Range: 0.5-1.6 Beta Globulin 1.0 g/dL (Normal) Range: 0.6-1.3 Rjaic-7-Yiijudkz 1.1 g/dL (Normal) Range: 0.4-1.2 Skvbd-0-Mmuiuqvv 0.3 g/dL (Normal) Range: 0.1-0.4 Albumin 3.5 g/dL (Normal) Range: 3.2-5.6 Protein, Total, Serum 6.5 g/dL (Normal) Range: 6.0-8.5 :54 CREATININE CLEARANCE Comments: PATIENT NOT FASTINGPERFORMED BY: MARJAN BlocNew Bridge Medical CenterAragnx2564 [facility] [id number] Information: [id number] START 07/18/15@630A M FINISH 07/18@7AM (10253) Creatinine Clearance 57 mL/min (Abnormal) Range: 88-128 [...] Creatinine, Serum 0.75 mg/dL (Normal) Range: 0.57-1.00 39-Glx-668955:54 Total Protein,24 Hour Urine Comments: PATIENT NOT FASTINGPERFORMED BY: MARJAN BlocNew Bridge Medical CenterZcnors5421 [facility] [id number]; has fu 07-21 (77332) Prot,24hr calculated 354.6 {mg/24_hr} (Abnormal) Range: 30.0-150.0 Protein,Total,Urine 39.4 mg/dL (Abnormal) Range: 0.0-15.0 Comments: Effective August 02, 2015 the reference interval for Protein, Total, Urine will be changing to: Not Estab. 84-Ydt-293521:45 URINE VMA (26908) Comments: 24 hour urine; PATIENT NOT FASTINGPERFORMED BY: [place] 962397 [facility] [id number] VMA, Urine, 24hr 2.3 {mg/24_hr} (Normal) Range: 0.0-7.5 VMA, Urine 3.3 mg/L (Normal) :50 RENIN (04250) Comments: PATIENT NOT FASTINGPERFORMED BY: [facility]oc[address] [id number] BY: Bl[facility] Ksaxcs0251 [facility] [id number] Information: [id number] Renin Activity, Plasma 1.17 {ng/mL/hr} (Normal) Comments: Adult Normal Salt Intake: Upright 1.31 - 3.95 Supine 0.15 - 2. 33 . Salt Excretion (Na mEq/24 hr): Na= 0 - 30 8.82 - 23.86 Na= 30 - 75 4.09 - 7.73 Na= 75 - 150 1.44 - 2.80 Na= >150 0.39 - 1.31 :45 METANEPHRINES - URINE (23148) Comments: PATIENT NOT FASTINGPERFORMED BY: [employer] [address] [id number] Metanephrine, U,24hr 50 {ug/24_hr} (Normal) Range: 45-290 Comments: (Hypertensive) >17 years 11 months: 35 - 460 Metanephrine, Ur 71 ug/L (Normal) Normetanephr.,U,24h 319 {ug/24_hr} (Normal) Range: 82-500 Comments: (Hypertensive) >17 years 11 months: 110 - 1050 Normetanephrine, Ur 455 ug/L (Normal) :45 CATECHOLAMINES TOTAL, URINE Comments: PATIENT NOT FASTINGPERFORMED BY: [facility]oc[address] [id number] Information: SRC:BATSHEVA [id number] START 07/20@9AM FI NANCY (60897) Dopamine, Ur, 24hr 90 {ug/24_hr} (Normal) Range: 0-510 Dopamine, Urine 128 ug/L (Normal) Norepinephrine,U,24h 48 {ug/24_hr} (Normal) Range: 0-135 Norepinephrine, Ur 68 ug/L (Normal) Epinephrine, U, 24hr 1 {ug/24_hr} (Normal) Range: 0-20 Epinephrine, Urine 2 ug/L (Normal) :50 HgA1C , Office (92586) HgA1C , Office 7.7 % (Abnormal) Range: 4.6 - 7.1 :20 CBC W/Diff, Automated Comments: [facility] [address] [place], [place], [phone] Absolute Lymph 1.40 {X10_3/ul} (Normal) Range: 0.83-4.51 [...] Range: 4.4-11.0 :20 Comprehensive Metabolic Profil Comments: [facility] Ebsoftqxvi[address] [place], [place], [address] GAP 8 (Normal) Range: 5-15 CO2 26.0 [...] per A.D.A. criteria. :49 HgA1C , Office (59225) HgA1C , Office 6.6 % (Normal) Range: 4.6 - 7.1 :04 CBC W/Diff, Automated Comments: [facility] Ydmytjtacq7231 [address] [place], [place], [address] Absolute Lymph 1.54 {X10_3/ul} (Normal) Range: 0.83-4.51 [...] 4.2-5.4 WBC 9.0 K/mm3 (Normal) Range: 4.4-11.0 7-Fer-675849:04 Comprehensive Metabolic Profil Comments: [facility] Mhyeilpeii4362 Norm[address] [place], [place], [address] GAP 11 (Normal) Range: 5-15 CO2 24.0 [...] <126 mg/dLsuggests IMPAIRED HOMEOSTASIS per A.D.A. criteria. 50-Isn-77188:10 Basic Metabolic Profile (BMP) Comments: Serial Specimen #1, #2 or #3? 1'TROP' Serial specimen #1, #2, #3, or #4: 1[facility] Wzustjtliy7006 [address]. [place], [place], [address] GAP 9 (Normal) Range: 5-15 CO2 26.0 [...] A.D.A. criteria. :10 Carboxyhemoglobin Frac (CO) Comments: [facility] V[address]cycf[address] [place], [place], [address] COHb 1.3 % (Normal) Range: 0.0-1.5 Comments: * NON-SMOKER RANGE 1.6 - 5.0% * LIGHT SMOKER RANGE 5.1 - 9.0% * HEAVY SMOKER RANGE :10 CBC W/Diff, Automated Comments: [facility] Fdqwmcxoer[address] [facility] [address] [place], [place], [address] Absolute Lymph 0.87 {X10_3/ul} (Normal) Range: 0.83-4.51 [...] Serial specimen #1, #2, #3, or #4: [address] [place] [address] Dhrbxsixha3428 [facility] [address]. [place], [place], [address] CKRI 1.9 % (Abnormal) Range: 0.0-1.4 Comments: RELATIVE INDEX >1.5% IS PRESUMPTIVELY POSITIVE CPKMB 1.0 ng/mL (Normal) Range: 0.0-5.0 Comments: CK-MB and RI Interpretation MB Relative Index Non-AMI <or= 5 NA Indeterminate > 5 <or= 4 AMI > 5 > 4 CPK TOTAL 53 U/L (Normal) Range: 26-192 33-Oym-10450:10 Troponin-I Comments: Serial Specimen #1, #2 or #3? 1'TROP' Serial specimen #1, #2, #3, or #4: [address] [place] [address] [place] [address], [address] TROPONIN-I 0.03 ng/mL (Normal) Comments: TROPONIN-I EXPECTED VALUES <0.05 NEGATIVE 0.06 - 0.59 AT RISK OF NV > OR = 0.60 SUGGEST NV 3-Fcl-778313:28 CBC W/Diff, Automated Comments: Test performed at:[facility] Pjdkrprswd[address] [place] [address] Absolute Lymph 1.31 {X10_3/ul} (Normal) Range: [...] 4.2-5.4 WBC 6.4 K/mm3 (Normal) Range: 4.4-11.0 8-Lbk-415984:28 Comprehensive Metabolic Profil Comments: Test performed at:[facility] Dnqocqahnk1557 [address] Hannaluis [place], [place] [address] GAP 7 (Normal) Range: 5-15 CO2 30.0 [...] Comments: Please note revised CREATININE reference range nwtioqnad14/22/2015. BUN 14 mg/dL (Normal) Range: 7-18 GLU 145 mg/dL (Abnormal) Range: 70-110 Comments: Fasting Glucose result greater than or equal to 126 mg/dLsuggests DIABETES MELLITUS per A.D.A. criteria. :17 HgA1C , Office (36643) HgA1C , Office 6.2 % (Normal) Range: 4.6 - 7.1 :34 CBC W/Diff, Automated Comments: Test performed at:[facility] Vkovarheen4584 [place], [place] [address] Absolute Lymph 0.90 {X10_3/ul} (Normal) Range: 0.83-4.51 [...] :34 Comprehensive Metabolic Profil Comments: Test performed at:[facility] Vbcrbkbogl9014 [facility] [place] [place] [address] GAP 7 (Normal) Range: 5-15 [...] criteria. :34 Lipid Profile Comments: Test performed at:[facility] Hgsvwlfjsg3765 [facility] [place] [address] VLDL 33 mg/dL (Normal) Range: 5-40 LDL [...] 200-240 mg/dL Borderline >240 mg/dL High Risk 4-Aju-339450:34 Thyroid Stim Hormone (TSH) Comments: Test performed at:[facility] Nuyidcnjys[address] [place] [address] TSH 2.56 {uIU/mL} (Normal) Range: 0.358-3.74 20-Lwe-131732:02 CBC W/Diff, Automated Comments: Test performed at:[facility] [address]tsh[address]bl[address] [place] [address] Absolute Lymph 1.28 {X10_3/ul} (Normal) Range: [...] :02 Comprehensive Metabolic Profil Comments: Test performed at:[facility] Zxbsxzatuf0897 [place] [address] GAP 9 (Normal) Range: 5-15 CO2 28.0 [...] per A.D.A. criteria. :47 HgA1C , Office (05952) HgA1C , Office 5.7 % (Normal) Range: 4.6 - 7.1 :47 Blood Glucose , Office (77688) Blood Glucose , Office 132 (Normal) :39 CBC W/Diff, Automated Comments: Test performed at:[facility] Dhoqxestfg[address] [facility] [place] [address] Absolute Lymph 1.14 {X10_3/ul} (Normal) [...] :39 Comprehensive Metabolic Profil Comments: Test performed at:[facility] Af[address] [place] [address] GAP 7 (Normal) Range: 5-15 [...] 7-18 GLU 100 mg/dL (Normal) Range: 70-110 7-Hmw-709274:38 TSH (94713) Comments: PATIENT NOT FASTINGPERFORMED BY: Geo SemiconductorAdvanced Care Hospital of Southern New MexicoAyqebu9426 [facility] [id number] TSH 4.120 {uIU/mL} (Normal) Range: 0.450-4.500 1-Xhh-833820:11 URINE LAINE CULTURE-IDENTIFICATN Comments: PATIENT NOT FASTINGPERFORMED BY: Geo SemiconductorNew Bridge Medical CenterHeihsb6291 [facility] [id number] (40333) Antimicrobial MIHEAD (Normal) Comments: S = Susceptible; [...] primarily for treating urinary tract infections. (CLSI, J847-D79,2009) Result 1 ECV (Abnormal) Comments: Escherichia coli, identified by an automated biochemical system.1,000 Colonies/mLProteus mirabilis/penneri1,000 Colonies/mL Urine Final report Culture,Comprehensive (Abnormal) 7-Jwa-677587:11 URINALYSIS (17969) Comments: PATIENT NOT FASTINGPERFORMED BY: [employer] Cugpiw3087 [facility] [id number] Information: [id number] Microscopic Examination MICNIP (Normal) Comments: Microscopic not indicated and not performed. Nitrite, Urine Negative (Normal) Urobilinogen,Semi-Qn 0.2 mg/dL (Normal) Range: 0.0-1.9 Bilirubin Negative (Normal) Occult Blood Negative (Normal) Ketones Negative (Normal) Glucose Negative (Normal) Protein Negative (Normal) WBC Esterase Negative (Normal) Appearance Clear (Normal) Urine-Color Yellow (Normal) pH 6.0 (Normal) Range: 5.0-7.5 Specific [place] 1.021 (Normal) Range: 1.005-1.030 5-Bkc-343738:38 CBC, Platelets & Auto Diff Comments: PATIENT NOT FASTINGPERFORMED BY: CoDa TherapeuticsMymichigan Medical Center Alma6370 [facility] [id number] Information: [id number] (49299) Immature Grans (Abs) 0.0 {x10E3/uL} (Normal) Range: [...] 3.77-5.28 WBC 6.5 {x10E3/uL} (Normal) Range: 3.4-10.8 8-Pyc-995728:38 Lipase (09079) Comments: PATIENT NOT FASTINGPERFORMED BY: Bl[facility] Fkwcyz9903 [facility] [id number] Lipase, Serum 19 U/L (Normal) Range: 0-59 1-Fxq-088359:38 Amylase (62606) Comments: PATIENT NOT FASTINGPERFORMED BY: CoDa TherapeuticsSaint Luke'S Hospital Seaters [facility] [id number] Amylase, Serum 32 U/L (Normal) Range: 31-124 4-Usu-027378:38 Metabolic Panel, Comprehensive Comments: PATIENT NOT FASTINGPERFORMED BY: CoDa TherapeuticsSaint Luke'S Hospital Hbsdaz5595 [facility] [id number] (92559) ALT (SGPT) 17 [iU]/L (Normal) Range: 0-32 [...] (Abnormal) Range: 65-99 :28 HgA1C , Office (56066) HgA1C , Office 7.9 % (Abnormal) Range: 4.6 - 7.1 :28 Blood Glucose , Office (84120) Blood Glucose , Office 170 (Normal) :05 HgA1C , Office (44454) HgA1C , Office 7.5 % (Abnormal) Range: 4.6 - 7.1 :05 Blood Glucose , Office (17159) Blood Glucose , Office 267 (Normal) :19 [...] 4.2-5.4 WBC 6.4 K/mm3 (Normal) Range: 4.4-11.0 5-[id number]:19 CMP Comments: DR FRANCISCO ORDERED CMP CBCDDR [...] CBCD Range: 0.358-3.74 :03 HgA1C , Office (05683) HgA1C , Office 9.1 % (Abnormal) Range: 4.6 - 7.1 :03 Blood Glucose , Office (60661) Blood Glucose , Office 136 (Normal) 06-Xzk-[id number]:22 Blood Glucose , Office (03523) Blood Glucose , Office 204 (Normal) 57-Jkw-039930:21 HgA1C , Office (73797) HgA1C , Office 7.3 % (Abnormal) Range: 4.6 - 7.1 :45 HgA1C , Office (44855) HgA1C , Office 7.3 % (Abnormal) Range: 4.6 - 7.1 :45 Blood Glucose , Office (85433) Blood Glucose , Office 176 (Normal) Comments: [...] 4.2-5.4 WBC 6.0 K/mm3 (Normal) Range: 4.4-11.0 42-Nxs-[id number]:26 CMP GAP 8 (Normal) Range: 5-15 CO2 [...] per A.D.A. criteria. :33 HgA1C , Office (22007) HgA1C , Office 7.1 % (Normal) Range: 4.6 - 7.1 :33 Blood Glucose , Office (25761) Blood Glucose , Office 127 (Normal) 69-Aid-622133:40 CBC With Differential/Platelet Comments: [facility]FORMED BY: [facility] [id number] [facility] [id number] Immature Grans (Abs) 0.0 {x10E3/uL} (Normal) Range: [...] 3.77-5.28 WBC 6.2 {x10E3/uL} (Normal) Range: 4.0-10.5 37-Tvz-187527:40 Comp. Metabolic Panel (14) Comments: PERFORMED BY: [facility] [place] [facility] [id number] ALT (SGPT) 24 [iU]/L (Normal) Range: 0-32 [...] TSH 3.580 {uIU/mL} Comments: PERFORMED BY: [facility] Rbnodf9748 [facility] [id number] :40 (Normal) Range: 0.450-4.500 :38 PREALBUMIN (50768) Comments: PATIENT NOT FASTINGPERFORMED BY: [facility] Ucimyh1198 [facility] [id number] Information: ADD [id number] AND DRAW FEE 99 6660 Prealbumin 21 mg/dL (Normal) Range: 20-40 :35 HgA1C , Office (51566) HgA1C , Office 7.3 % (Abnormal) Range: 4.6 - 7.1 :01 HgA1C , Office (43674) HgA1C , Office 7.4 % (Abnormal) Range: 4.6 - 7.1 :46 HgA1C , Office (34034) HgA1C , Office 7.3 % (Abnormal) Range: 4.6 - 7.1 :46 Blood Glucose , Office (36819) Blood Glucose , Office 193 (Normal) :12 HgA1C , Office (34895) HgA1C , Office 6.7 % (Normal) Range: 4.6 - 7.1 :12 Blood Glucose , Office (83254) Blood Glucose , Office 103 (Normal) 03-Nhm-242388:26 CBCMD RBCM NORM C+C {NORMAL} (Normal) PE [...] 7-18 GLU 80 mg/dL (Normal) Range: 70-110 32-Yph-799266:26 LIPID VLDL 12 mg/dL (Normal) Range: 5-40 [...] 76.7 mg/dL (Normal) :21 HgA1C , Office (88518) HgA1C , Office 6.7 % (Normal) Range: 4.6 - 7.1 :21 Blood Glucose , Office (73629) Blood Glucose , Office 88 (Normal) 3-Nes-235556:06 CBCD SMEAR COMMENT SeeNote (Normal) Comments: Result: [...] 4.2-5.4 WBC 7.2 K/mm3 (Normal) Range: 4.4-11.0 2-Yss-310761:06 COMP METABOLIC GAP 8 (Normal) Range: 5-15 [...] 200 mg/dLsuggests DIABETES MELLITUS per A.D.A. criteria. 9-Rtm-929187:06 FERRITIN 88 ng/mL (Normal) Range: 8-252 07-Ois-489064:30 HgA1C , Office (71201) HgA1C , Office 8.4 % (Abnormal) Range: 4.6 - 7.1 00-Ybg-011278:30 Blood Glucose , Office (61074) Blood Glucose , Office 232 (Normal) 16-Nac-225942:39 HgA1C , Office (21574) HgA1C , Office 8.2 % (Abnormal) Range: 4.6 - 7.1 52-Wfu-248055:39 Blood Glucose , Office (88992) Blood Glucose , Office 181 (Normal) 57-Vhq-807578:20 CBCD,SMEAR DIFF Comments: ORDERED CBCD,CMPDR.BONEZZI ORDERED CBCMD,LIPID,CMP,MICROALB [...] 4.2-5.4 WBC 6.8 K/mm3 (Normal) Range: 4.4-11.0 20-Cqw-251725:20 COMP METABOLIC Comments: ORDERED CBCD,CMPDR.BONEZZI ORDERED CBCMD,LIPID,CMP,MICROALB [...] mg/dL suggests DIABETES MELLITUS per A.D.A. criteria. 39-Ulf-506776:20 LIPID Comments: ORDERED CBCD,CMPDR.ROSELYN ORDERED CBCMD,LIPID,CMP,MICROALB LDL [...] 200-240 mg/dL Borderline >240 mg/dL High Risk 98-Qiv-549965:04 Blood Glucose , Office (07189) Blood Glucose , Office 244 (Normal) 36-Fzi-262822:36 HgA1C , Office (06251) HgA1C , Office 7.5 % (Abnormal) Range: 4.6 - 7.1 99-Gxq-993613:36 Blood Glucose , Office (38733) Blood Glucose , Office 178 (Normal) :24 HgA1C , Office (62656) HgA1C , Office 6.8 % (Normal) Range: 4.6 - 7.1 :24 Blood Glucose , Office (76759) Blood Glucose , Office 141 (Normal) Comments: fasting :58 CBCD Comments: DR RFANCISCO ORDERED CBCD ABSOLUTE NEUT 3.6 3/uL (Normal) [...] 4.2-5.4 WBC 5.6 K/mm3 (Normal) Range: 4.4-11.0 23-Lsw-293616:58 COMP METABOLIC Comments: DR DEMPSEY ORDERED LIPID [...] mg/dL suggests DIABETES MELLITUS per A.D.A. criteria. 21-Tva-548477:58 LIPID Comments: DR DEMPSEY ORDERED LIPID DR [...] 200-240 mg/dL Borderline >240 mg/dL High Risk 50-Len-153386:02 HgA1C , Office (45102) HgA1C , Office 6.9 % (Normal) Range: 4.6 - 7.1 :02 Blood Glucose , Office (13361) Blood Glucose , Office 251 (Normal) 22-Lhv-74874:11 CBCD SMEAR COMMENT COMMENT (Normal) Comments: 3+ [...] 126 mg/dLsuggests DIABETES MELLITUS per A.D.A. criteria. 61-Tqe-325300:54 DOT DIR SEMI-QL DOT DIRECT 52 AU/mL (Normal) 27-Csy-273822:54 ANTI-CCP 607995 > 250 {units} Range: 0-19 (Abnormal) Comments: [...] 200 mg/dLsuggests DIABETES MELLITUS per A.D.A. criteria. 43-Hvr-409184:54 COMPLETE UA BACTERIA 0 SEEN {/hpf} (Normal) [...] mm/h (Abnormal) Range: 0-30 :54 HB CORE [id number] SeeNote (Normal) Comments: Result: NegativePerformed at: - [facility] [address] [id number] Director: Yasmine Cabrera MD, Phone: [phone] at: - [facility] [id number] Director: Jovani Odom MD, Phone: [phone] :54 HBsAg 6510 HB SURF AG 6510 SeeNote (Normal) Comments: Result: Negative : HEBSAB 6395 < 0.1 (Normal) Range: 0.00-0.99 Comments: Status of Immunity Anti-HBs Level Inconsistent with Immunity 0.00 - 0.99Consistent with Immunity >0.99.An Index Value of 1.00 is equivalent to 10 mIU/mL.However the magnitude of the Index Value is notindicative of the total amount of antibody present. :54 HEP C AB 460574 <0.1 (Normal) Range: 0.0-0.9 Comments: Negative: < 0.8Indeterminate 0.8 - 0.9Positive: > 0.9.In order to reduce the incidence of a false positiveresult, the CDC recommends that all s/co ratiosbetween 1.0 and 10.9 be confirmed with additionalRIBA or PCR testing. :54 RHEUMATOID FAC 539.0 {IU/mL} (Abnormal) :54 VIT D,25 48636 27.3 ng/mL (Abnormal) Range: 32.0-100.0 Comments: Recent studies consider the lower limit of 32.0 ng/mL to gloria threshold for optimal health.Alexander MARY. J Nutr. 2005 Apr;135(2):317-22. 72-Stx-873982:30 HAND,MIN 3 VIEWS (MT) Radiology Report See Note (Normal) Comments: Exam Number: [id number] CLINICAL:This a 64-year-old female patient with history of pain. X-RAY EXAMINATION RIGHT HAND TECHNIQUE:Three views of the hand. COMPARISON:None. FINDINGS:Normal visualized carpal bones. Normal metacarpal bones. Normal visualized phalanges. Normal carpal articulations. Normal metacarpophalangeal joints. There are degenerative changesof the interphalangeal joints. There is no d emonstrated soft tissue swelling. IMPRESSION:Chronic degenerative changes, as discussed above. Reported By: VIDHAY NORRIS 15-Myw-450220:29 HAND,MIN 3 VIEWS (MT) Radiology Report See Note (Normal) Comments: Exam Number: [id number] CLINICAL:This is a 64-year-old female patient with [...] as discussed above. Reported By: VIDHYA NORRIS 02-Kdl-664868:45 Anti-dsDNA Antibodies Comments: PATIENT WAS FASTINGPERFORMED BY: ASSURED INFORMATION SECURITY [facility] [id number] BY: [employer] [id number] Anti-DNA (DS) Ab Qn 1 {IU/mL} (Normal) Range: 0-9 Comments: Negative <5Equivocal 5 - 9Positive >9 22-Bub-064285:45 Antinuclear Antibodies Comments: PATIENT WAS FASTINGPERFORMED BY: ASSURED INFORMATION SECURITY [facility] [id number] BY: [employer] [id number] Direct DOT Direct Negative (Normal) C-Reactive Protein, 5.1 mg/L (Abnormal) Comments: PATIENT WAS FASTINGPERFORMED BY: [place] [id number] [facility] [id number] BY: [address] [id number] :45 Quant Range: 0.0-4.9 :45 CBC With Differential/Platelet Comments: PATIENT WAS FASTINGPERFORMED BY: [place] [id number] [facility] [id number] BY: [address] [id number] Hematology Comments: Note: (Normal) Comments: Verified by [...] >250 {units} Comments: PATIENT WAS FASTINGPERFORMED BY: [employer] [id number] BY: [address] [id number] 3:45 (Abnormal) Range: 0-19 Comments: Negative <20Weak positive 20 - 39Moderate positive 40 - 59Strong positive >59 24-Pvp-264175:45 Comp. Metabolic Panel Comments: PATIENT WAS FASTINGPERFORMED BY: [employer] [address] [id number] BY: [employer] [id number] (14) Alkaline Phosphatase, S 99 [iU]/L (Normal) [...] ng/mL (Normal) Comments: PATIENT WAS FASTINGPERFORMED BY: [employer] [facility] [id number] BY: [employer] [id number] 13:45 Range: 13-150 20-Aug-2009 Haptoglobin 252 mg/dL Comments: PATIENT WAS FASTINGPERFORMED BY: ASSURED INFORMATION SECURITY [facility] [id number] BY: [employer] [id number] 13:45 (Abnormal) Range: 34-200 99-Kmp-804006:45 Iron and TIBC Comments: PATIENT WAS FASTINGPERFORMED BY: ASSURED INFORMATION SECURITY [facility] [id number] BY: [employer] [id number] Iron Bind.Cap.(TIBC) 384 ug/dL (Normal) Range: 250-450 Iron Saturation 6 % (Abnormal) Range: 15-55 Iron, Serum 24 ug/dL (Abnormal) Range: 35-155 UIBC 360 ug/dL (Normal) Range: 150-375 10-Oor-126830 LDH 190 [iU]/L (Normal) Comments: PATIENT WAS FASTINGPERFORMED BY: ASSURED INFORMATION SECURITY [facility] [id number] BY: [employer] [id number] :45 Range: 100-250 94-Ydi-548072:45 Lipid Panel With LDL/HDL Comments: PATIENT WAS FASTINGPERFORMED BY: [address] [id number] BY: [address] [id number] Ratio HDL Cholesterol 41 mg/dL (Normal) Comments: [...] 182 nmol/L Comments: PATIENT WAS FASTINGPERFORMED BY: [address] [id number] BY: [address] [id number] 3:45 Serum (Normal) Range: 73-376 Comments: The reference range for methylmalonic acid has been set at +3sd abovethe mean for healthy blood bank donors. In the clinical assessment ofpatients with megaloblastic anemias a cutoff of +3sd provides gr eaterspecificity in the diagnosis of the vitamin deficiency states,despite the sacrifice of some sensitivity. 82-Ekd-377441:45 PT and PTT Comments: PATIENT WAS FASTINGPERFORMED BY: [place] [id number] [facility] [id number] BY: [address] [id number] aPTT 29 {sec} (Normal) Range: 24-33 Comments: This test has not been validated for monitoring unfractionated heparintherapy. aPTT-based therapeutic ranges for unfractionated heparintherapy have not been established. For general guidelines onHeparin monitoring, refer to the [facility] Directory of Services. Prothrombin Time 11.1 {sec} Range: 8.7-11.5 (Normal) INR 1.1 (Normal) Range: 0.8-1.2 Comments: Reference interval is for non-anticoagulated patients..Suggested INR therapeutic range for Vitamin Kantagonist therapy:Standard Dose (moderate intensitytherapeutic range): 2.0 - 3.0Higher intensity therapeutic range 2.5 - 3.5 20-Aug-2009 Reticulocyte Count 2.4 % (Normal) Comments: PATIENT WAS FASTINGPERFORMED BY: [facility] Fjjjtj7160 [facility] [place] [id number] BY: [address] [id number] 13:45 Range: 0.5-3.0 20-Aug-2009 RPR Non Reactive Comments: PATIENT WAS FASTINGPERFORMED BY: [employer] Emekdr94[address] Forrest Roadblin [place] [id number] BY: [address] [id number] 13:45 (Normal) 20-Aug-2009 Sedimentation 13 mm/h (Normal) Comments: PATIENT WAS FASTINGPERFORMED BY: [employer] Oqkyml3058 [facility] [place] [id number] BY: [address] [id number] 13:45 Rate-Westergren Range: 0-30 20-Aug-2009 TSH 2.470 {uIU/mL} Comments: PATIENT WAS FASTINGPERFORMED BY: [employer] Nqiyah8505 [address] [facility] [id number] BY: [address] [id number] 13:45 (Normal) Range: 0.450-4.500 47-Ypu-112831:45 Vitamin B12 and Folate Comments: PATIENT WAS FASTINGPERFORMED BY: [facility] Zylzvk6897 [facility] [place] [id number] BY: [address] [id number] Folate (Folic Acid), Serum 10.5 ng/mL (Normal) Comments: Indeterminate: 2.2 - 3.0Deficient: <2.2 Vitamin B12 583 pg/mL (Normal) Range: 211-946 31-Mne-495064:18 HgA1C , Office (89594) HgA1C , Office 7.3 % (Abnormal) Range: 4.6 - 7.1 84-Ieb-929601:18 Blood Glucose , Office (60610) Blood Glucose , Office 167 (Normal) Plan [...] Knee pain Planned Observations Metabolic Panel, Comprehensive (31601)Indication: Rheumatoid arthritis On: 11-Rpm-635472:41 Request Comments: Mar 2017 MICROALBUMIN: CREATININE RATIO (99907) AND (32101)Indication: Diabetes mellitus type II, controlled On: 6-Qos-808159:50 Request VITAMIN B12 AND FOLATES (01336)Indication: Diabetes mellitus type II, controlled On: :50 Request CALCIFEDIOL (20381)Indication: Diabetes mellitus type II, controlled On: 3-Ubc-092830:50 Request TSH (THYROID STIMULATING HORMONE) (77506)Indication: Hypothyroidism On: 7-Lye-779480:50 Request LIPID PANEL (62002)Indication: Hypercholesteremia On: 5-Lqj-937429:50 Request METABOLIC PANEL, COMPREHENSIVE (85293)Indication: Diabetes mellitus type II, controlled On: 1-Frb-175821:50 Request CBC, PLATELETS & AUT DIFF (12721)Indication: Diabetes mellitus type II, controlled On: 2-Qev-202124:49 Request IRON (29520)Indication: Anemia On: 21-Cyj-074396:05 Request Blood Glucose , Office (66637)Indication: Diabetes mellitus type II, controlled On: 01-Xwz-64285:32 Request MICROALBUMIN: CREATININE RATIO (54959) AND (32319)Indication: Diabetes mellitus type II, controlled On: 62-Ofx-550160:06 Request VITAMIN B12 AND FOLATES (85680)Indication: Vitamin D deficiency On: 08-Kid-421140:00 Request VITAMIN D, 1, 25-DIHYDROXY (81232)Indication: Vitamin D deficiency On: 29-Jki-982116:00 Request LIPID PANEL (89175)Indication: Hypercholesteremia On: 51-Hju-917909:00 Request METABOLIC PANEL, COMPREHENSIVE (13042)Indication: Diabetes mellitus type II, controlled On: 34-Ygp-947739:00 Request CBC, PLATELETS & AUT DIFF (04802)Indication: Diabetes mellitus type II, controlled On: 41-Oig-649497:59 Request TSH (THYROID STIMULATING HORMONE) (01300)Indication: Hypothyroidism On: :59 Request POTASSIUM SERUM (12256)Indication: Hyperkalemia On: 32-Vrk-127475:59 Request Comments: 2-3 weeks CALCIFIDIOL (99181) VIT D 25Indication: Vitamin D deficiency On: 08-Lnl-134095:34 Request TSH (15672)Indication: Hypothyroidism On: 47-Zfd-136257:34 Request MICROALBUMIN: CREATININE RATIO (41310) AND (36796)Indication: Diabetes mellitus type II, controlled On: :34 Request URINALYSIS, W/ MICRO (66093)Indication: Diabetes mellitus type II, controlled On: :34 Request TSH (94527)Indication: Hypothyroidism On: :34 Request METABOLIC PANEL, COMPREHENSIVE (03918)Indication: Diabetes mellitus type II, controlled On: :34 Request LIPID PANEL (39109)Indication: Diabetes mellitus type II, controlled On: :34 Request CBC with auto diff (81812)Indication: Diabetes mellitus type II, controlled On: :34 Request CBC with auto diff (24108)Indication: Hypertension, benign On: 98-Taf-387978:26 Request METABOLIC PANEL, COMPREHENSIVE (10510)Indication: Hypertension, benign On: 63-Rmq-980779:26 Request LIPID PANEL (97000)Indication: Hypertension, benign On: 48-Mtl-784184:26 Request TSH (56998)Indication: Hypothyroidism On: 58-Ewa-004936:26 Request CBC WITH MANUAL DIFF (14585)Indication: Hypertension, benign On: 63-Max-647925:21 Request METABOLIC PANEL, COMPREHENSIVE (36928)Indication: Hypertension, benign On: 79-Xmo-253543:21 Request TSH (43850)Indication: Hypothyroidism On: 84-Abc-567999:21 Request Methymalonic Acid, Serum (32191)Indication: Thrombocytopenia, unspecified On: 26-Lwk-20425:48 Request Vitamin B-12 (cyanocobalamin) (90258)Indication: Thrombocytopenia, unspecified On: :48 Request CBC, Platelets & Auto Diff (15301)Indication: Thrombocytopenia, unspecified On: 91-Jti-77690:48 Request Comments: citrate METABOLIC PANEL, COMPREHENSIVE (86191)Indication: Hypertension, benign On: 47-Wpq-253537:59 Request CBC WITH MANUAL DIFF (32671)Indication: Hypertension, benign On: 93-Wtl-168027:59 Request TSH (64948)Indication: Hypothyroidism On: 51-Yzg-693741:29 Request METABOLIC PANEL, COMPREHENSIVE (16352)Indication: Hypertension, benign On: 41-Vzn-820742:29 Request Blood Glucose , Office (79747)Indication: Diabetes mellitus type II, controlled On: 14-Whg-637219:35 Request TSH (86564)Indication: Hypothyroidism On: 75-Gze-175693:19 Request METABOLIC PANEL, COMPREHENSIVE (97254)Indication: Diabetes mellitus type II, controlled On: 86-Ljo-706755:19 Request LIPID PANEL (66449)Indication: Diabetes mellitus type II, controlled On: :19 Request Blood Glucose , Office (30231)Indication: Diabetes mellitus type II, controlled On: 30-Vbm-227693:01 Request TSH (03690)Indication: Thyroid disorder On: 32-Aur-259475:29 Request MICROALBUMIN: CREATININE RATIO (09656) AND (13175)Indication: Diabetes mellitus type II, controlled On: :26 Request METABOLIC PANEL, COMPREHENSIVE (82310)Indication: Diabetes mellitus type II, controlled On: 05-Lbt-776265:26 Request LIPID PANEL (77974)Indication: Diabetes mellitus type II, controlled On: 20-Zjg-631888:26 Request CBC WITH MANUAL DIFF (19295)Indication: Diabetes mellitus type II, controlled On: 16-Yum-756749:26 Request CBC WITH MANUAL DIFF (87830)Indication: Diabetes mellitus type II, controlled On: 12-Xdt-860936:52 Request MICROALBUMIN: CREATININE RATIO (10064) AND (36329)Indication: Diabetes mellitus type II, controlled On: 94-Drp-316540:29 Request METABOLIC PANEL, COMPREHENSIVE (63819)Indication: Diabetes mellitus type II, controlled On: 58-Fkp-906340:29 Request LIPID PANEL (25760)Indication: Diabetes mellitus type II, controlled On: 02-Ovd-515790:29 Request CBC WITH MANUAL DIFF (07140)Indication: Diabetes mellitus type II, controlled On: 07-Lme-609030:29 Request FERRITIN (54225)Indication: Anemia On: 4-Cun-144766:26 Request CBC with manual diff (57156)Indication: Anemia On: 29-May-20119:12 Request HgA1C , Office (66658)Indication: Diabetes mellitus type II, controlled On: 53-Nox-843849:04 Request METABOLIC PANEL, COMPREHENSIVE (25703)Indication: Hypercholesteremia On: 01-Tso-390731:15 Request LIPID PANEL (76566)Indication: Hypercholesteremia On: 00-Xna-397300:15 Request Lipid Panel (37968)Indication: Hypercholesteremia On: 77-Bdw-603805:50 Request RPR (RAPID PLASMA REAGIN) (63501)Indication: Neuropathy On: 79-Yjn-535026:48 Request TSH (60998)Indication: Thyroid disorder On: 87-Yqu-397669:48 Request HAPTOGLOBIN (25755)Indication: Anemia On: 85-Lkl-320402:46 Request PTT (Activated Partial Thromboplastin Time) (90800)Indication: Anemia On: 95-Iuw-805093:46 Request PT (Prothrobim Time) (39926)Indication: Anemia On: 71-Scn-125918:46 Request RETICULOCYTE COUNT (53935)Indication: Anemia On: 66-Tyw-006171:46 Request LDH (LD) (LACTATE DEHYDROGENASE) (22805)Indication: Anemia On: 36-Cib-012504:46 Request Methylmalonic acid, serum 17911Ejuvyifgvf: Anemia On: 39-Rkv-761696:46 Request Vitamin B-12 (cyanocobalamin) (90325)Indication: Anemia On: 37-Fgn-051303:46 Request Iron Binding Capacity (TIBC) (22124)Indication: Anemia On: 03-Bhr-873321:46 Request Iron (70414)Indication: Anemia On: 14-Cfg-279912:46 Request Folic Acid Serum (18451)Indication: Anemia On: 65-Cyz-230727:46 Request Ferritin (48897)Indication: Anemia On: 28-Bae-167975:46 Request DNA ANTIBODY-NATV/DBL ST (62925)Indication: Pain in unspecified joint On: 38-Sfi-756868:46 Request CCP ANTIBODY (87039)Indication: Pain in unspecified joint On: 18-Twr-787922:45 Request SED RATE ERYTHROCYTE (01576)Indication: Pain in unspecified joint On: 04-Ilr-389174:45 Request C-REACTIVE PROTEIN (46818)Indication: Pain in unspecified joint On: 96-Csx-265903:45 Request TSH (02838)Indication: Pain in unspecified joint On: 65-Oao-676202:45 Request RHEUMATOID FACTOR-QUANT (78535)Indication: Pain in unspecified joint On: 73-Oba-286013:45 Request DOT (ANTINUCLEAR ANTIBODY) (84860)Indication: Pain in unspecified joint On: 54-Gje-112645:45 Request CBC WITH MANUAL DIFF (01694)Indication: Pain in unspecified joint On: 70-Qfa-218714:45 Request METABOLIC PANEL, COMPREHENSIVE (19703)Indication: Pain in unspecified joint On: 91-Trq-289168:45 Request Planned Encounters Medical; Forms - On: 30-Jan-2018 10:45 [facility], Mayra George [facility], Mayra George Medical; 3 Month FU - On: 20-Feb-2018 10:15 Comprehensive Internal Medicine [facility], Mayra George destiny SENIOR 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 DEVELOPER, Mayra George Planned Procedures Flu Vaccine (Quadrivalent) On: 10-Jan-2017 Intent 77451Lh: Mayra Goodman CNP Comments: Lot #[id number]/10/18ite-L dltd, IMDose prefilled syringegiven by:TATYANA Sutton and ABN signed Mayra Goodman CNP Flu Vaccine (Quadrivalent) On: 15-Dec-2015 Intent 63746La: Rafael Thomas MD Comments: Lot #[id number]/30/ite-L dltd, IMDose prefilled syringegiven by:TATYANA Sutton and ABN signed MRI OF CERVICAL SPINE WITHOUT On: 19-Jul-2015 Intent CONTRAST (14827)By: Katelyn Dempsey MD Ultrasound - RenalBy: Roselyn On: 06-Jul-2015 Intent Katelyn SORTO Renal Artery DopplerBy: Roselyn On: 06-Jul-2015 Intent Katelyn SORTO MRI OF CERVICAL SPINE WITH On: 06-Jul-2015 Intent CONTRAST (58874)By: Katelyn Dempsey MD EMGBy: Katelyn Dempsey MD On: 06-Jul-2015 Intent Nerve ConductionBy: Roselyn SORTO, On: 06-Jul-2015 Intent Katelyn Pedroza Comments: right arm MRI OF BRAIN WITH CONTRAST On: 06-Jul-2015 Intent (21242)By: Katelyn Dempsey MD Kenalog Injection, 10 mgm On: 01-Jun-2015 Intent (J3301)By: Katelyn Dempsey MD EKG (74821)By: Roselyn SORTO, On: 06-Oct-2014 Intent Katelyn Pedroza Comments: see scanned document of test done to see results reviewed today with patient Nuclear Stress Test/Stress On: 06-Oct-2014 Intent SPECT/AdenosineBy: Katelyn Dempsey MD Ultrasound - PelvisBy: Roselyn On: 26-Jan-2014 Intent Katelyn SORTO Flu Vaccine (Quadrivalent) On: 26-Jan-2014 Intent 32254Cc: Katelyn Dempsey MD Comments: Lot #:[id number] Expiration [...] 03-Nov-2013 Intent (J3301)By: Katelyn Dempsey MD EKG (52272)By: Roselyn SORTO, On: 12-May-2013 Intent Katelyn Pedroza Comments: see scanned document of test done to see results reviewed today with patient ADMINISTRATION OF INFLUENZA On: 11-Feb-2013 Intent VIRUS VACCINE (G0008)By: Dante Comments: Lot #[id number]-L dltd, IMDose prefilled syringegiven by:Faviola Cote LPN FLU VAC, SPLIT, >3 YEARS, On: 11-Feb-2013 Intent INTRAMUSC (49591)By: Faviola Howell LPN Eprescribed prescriptions On: 11-Feb-2013 Intent (G8553)By: Faviola Howell LPN Eprescribed prescriptions On: 12-Nov-2012 Intent (G8553)By: Faviola Howell LPN IMMUNIZ ADMNIN, 1 VAC, On: 29-Aug-2012 Intent SNGL/COMBO (99855)By: Chante Owen LPN [place] VACC, [place] (84062)By: On: 29-Aug-2012 Intent Chante Owen LPN Eprescribed prescriptions On: 13-Aug-2012 Intent (G8553)By: Faviola Howell LPN Eprescribed prescriptions On: 14-May-2012 Intent (G8553)By: Faviola Howell LPN Solu -Medrol Injection, 125 mg On: 05-Apr-2012 Intent (J2930)By: Mayra Goodman CNP, CNP, Mary E ADMINISTRATION OF INFLUENZA On: 12-Feb-2012 Intent VIRUS VACCINE (G0008)By: HARESH Griffin FLU VAC, SPLIT, >3 YEARS, On: 12-Feb-2012 Intent INTRAMUSC (17874)By: HARESH Griffin PNEUM VAC ADLT/IMUMNOSPR, On: 13-Nov-2011 Intent SBC/INTRM (17832)By: Roselyn Comments: Lot:Exp:2.14 [id number]:0.5mlRoute:L arm, IMGiven By:Katelyn SANFORD MD ADMINISTRATION OF PNEUMOCOCCAL On: 13-Nov-2011 Intent VACCINE (G0009)By: Katelyn Dempsey MD Eprescribed prescriptions On: 21-Jul-2010 Intent (G8553)By: Katelyn Dempsey MD MAMMOGRAM, SCREENING, BOTH On: 22-Apr-2010 Intent BREASTS (82310)By: Katelyn Dempsey MD Radiology - Hand - BilateralBy: On: 06-Sep-2009 Intent Katelyn Dempsey MD Comments: copy to [facility] Planned Medications INJECTION, METHYLPREDNISOLONE SODIUM SUCCINATE, [...] controlled : DISCONTINUED - MICROALBUMIN: CREATININE RATIO (42456) AND (84899) Indication: Diabetes mellitus type II, controlled Iron [...] for Transition into care: Was admitted to [facility] on Oct 28, 2016 with weakness un [...] Nutrition: balanced diet and supplemental vitamins. The nd dical issues the patient is following up [...] The patient does have durable power of business attorney and living will. The patient has noticed nothing from the geriatic depression scale. Other providers contributing to the patient's care a re gastrologist ( @[facility] in [facility] for colonscopy ), software validation engineer (Dr. Francisco ) and other: (Interior Decorator: Dr. Child , Pain Management: Dr. Mcfadden [...] patient does have du rable power of business attorney and living will. The patient has noticed nothing from the geriatic depression scale. Other providers contributing to the patient's care are gastrologist ( @[facility] in [facility] for colonscopy ), software validation engineer (Dr. Francisco ) and other: (Interior Decorator: Dr. Child , Pain Management: [email or web address] Mcfadden [...]
--- OUTSIDE RECORDS SUMMARY | 2018-04-22 10:23 | XMS RPT_ITS ---
:1945 Author Organization [facility] Care Team Providers Name Role Phone Sarah Francisco Attending Unavailable Sarah Francisco Referring Unavailable Mayra Goodman Primary Care Unavailable Eliza Barba Attending Unavailable Mayra Goodman Primary Care Unavailable Sarah Francisco Attending Unavailable Sarah Francisco Referring Unavailable CuongaMayra Primary Care Unavailable CuongaMayra Attending Unavailable Ciesa, Mayra Primary Care Unavailable Becki Barbaa Siri Attending Unavailable Becki Barbaa NWinston Referring Unavailable CuongaMayra Primary Care Unavailable Sarah Francisco Attending Unavailable NormanlanSarah de león Referring Unavailable CuongaMayra Primary Care Unavailable Ciclara Mayra Attending Unavailable CuongaMayra Primary Care Unavailable Ciclara Mayra Referring Unavailable Sarah Francisco Attending Unavailable Tanya Franciscoma Referring Unavailable Ciesa, Mayra Primary Care Unavailable Jameson, Eliza NWinston Consulting Unavailable TOREY, LAPMAN Referring Unavailable TOREY, LAPMAN Attending Unavailable CIESMAYRA Valentine E (FINANCIAL SERVICES TECHNICIAN) Referring Unavailable TOREY, LAPMAN Referring Unavailable TOREY, LAPMAN Referring Unavailable TOREY, LAPMAN Referring Unavailable TOREY, LAPMAN Referring Unavailable TOREY, LAPMAN Referring Unavailable TOREY, LAPMAN Referring Unavailable TOREY, LAPMAN Referring Unavailable TOREY, LAPMAN Attending Unavailable CIMAYRA MEDINA E (FINANCIAL SERVICES TECHNICIAN) Referring Unavailable KEE SMILEY Attending Unavailable CIESAMAYRA E Primary Care Unavailable KEE SMILEY Attending Unavailable KEE SMILEY Referring Unavailable CUONGAMAYRA Primary Care Unavailable Lokesh SORTO, Dr. Kee Valentine Admitting Unavailable Lokesh SORTO, Dr. Kee Valentine Attending Unavailable Lokesh SORTO, Dr. Kee Valentine Admitting Unavailable [place] SORTO, Dr. Kee Valentine Attending Unavailable Maxine Mayra Attending Unavailable Rafael Tong MD Referring Unavailable Maxine Mayra Consulting Unavailable Roxann Argueta Attending Unavailable Roxann Argueta Attending Unavailable Roxann Argueta Attending Unavailable Mayra Goodman Primary Care Unavailable Roxann Argueta Attending Unavailable Mayra Goodman Primary Care Unavailable Roxann Argueta Attending Unavailable No Family Physician given Primary Care Unavailable Kylee Mcfadden Attending Unavailable No Family Physician given Primary Care Unavailable Kylee Mcfadden Attending Unavailable PROBLEMS PROBLEMS DATE TYPE CONDITION / CODE ATTENDING STATUS SOURCE 03/06/2018 Unknown N95.9 - Unspecified Mayra Goodman Active [place] [facility]opausal [facility] perimenopausal Hospital disorder / Repository N95.9(ICD-10) 02/08/2018 Unknown E11.65 - Type 2 Maryam, Active [place] diabetes mellitus [facility] with hyperglycemia / Hospital E11.65(ICD-10) Repository 02/08/2018 Unknown M05.79 - Rheumatoid Normanlangenet, Active [place] arthritis with [facility] rheumatoid factor of Hospital multiple sites Repository without organ or systems involvement / M05.79(ICD-10) 02/08/2018 Unknown M79.7 - Fibromyalgia Maryam, Active [facility] / M79.7(ICD-10) [facility] Hospital Repository 02/08/2018 Unknown M25.561 - Pain in Maryam, Active [place] right knee / [facility] M25.561(ICD-10) Hospital Repository 02/08/2018 Unknown Z79.899 - Other long Maryam, Active [facility] term (current) drug [facility] therapy / Hospital Z79.899(ICD-10) Repository 02/08/2018 Unknown 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, Active [place] Polyosteoarthritis, [facility] unspecified / Hospital M15.9(ICD-10) Repository 02/08/2018 Unknown K76.0 - Fatty Maryam, Active [facility] (change of) liver, [facility] not elsewhere Hospital classified / Repository K76.0(ICD-10) 02/08/2018 Unknown M50.30 - Other Vellanki, Active [facility] cervical disc [facility] degeneration, Hospital unspecified cervical Repository region / M50.30(ICD-10) 02/08/2018 Unknown M47.892 - Other Vellanki, Active [facility] spondylosis, [facility] cervical region / Hospital M47.892(ICD-10) Repository 03/28/2016 Admitting Hyperlipidemia, SMILEY, KEE Active [facility] diagnosis unspecified / [facility] E78.5(ICD-10) Repository 03/28/2016 Admitting Essential (primary) SMILEY, KEE Active [facility] diagnosis hypertension / [facility] I10(ICD-10) Repository 03/28/2016 Admitting Disorder of arteries SMILEY, KEE Active [facility] diagnosis and arterioles, [facility] unspecified / Repository I77.9(ICD-10) 03/28/2016 Admitting Atherosclerotic SMILEY, KEE Active [facility] diagnosis heart disease of [facility] [place] coronary Repository artery without angina pectoris / I25.10(ICD-10) 11/28/2017 Admitting 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 Community unspecified / Hospital E03.9(ICD-10) Repository 05/17/2017 Admitting Unknown / Fautas, Active [facility] diagnosis UNK(Unknown) [facility] [place] Repository 05/08/2017 Active Anemia, unspecified NA Active [place] / D64.9(ICD-10) [facility] Repository 05/07/2017 Active Iron deficiency ANDREINA LEMA Active [place] anemia, unspecified [facility] / D50.9(ICD-10) [facility] Repository 03/20/2009 Active Vitamin B12 NA Active [place] deficiency anemia [facility] due to intrinsic [facility] factor deficiency / Repository D51.0(ICD-10) PROCEDURES PROCEDURES No Procedure Records FoundRESULTS RESULTS FLUOROSCOPY IN OR/PAIN Observed: 04/04/2018 Status: F Source: [employer] MGT 7:22 AM [facility] REPOSITORY FLUOROSCOPY IN OR/PAIN MGT Ordering Physician: Kylee Mcfadden DO 04/04/2018 10:15 AM FLUOROSCOPY AND RADIOGRAPHS UTILIZED IN PAIN MANAGEMENT Clinical Statement: Neck pain FINDINGS: 15.9 seconds fluoroscopy time utilized. A total of two radiographs were obtained demonstrating needle placement with contrast injection at the cervicothoracic junction region. IMPRESSION: Documentation of fluoroscopy and radiographs utilized in pain management. Please see clinician's report for complete details. ---- Electronic Signature on File ---- Signed By: Chio Sandoval MD [email or web address] Dictated: 04/04/2018 10:29 AM Signed: 04/04/2018 10:29 AM Reported By: CHIO SANDOVAL M.D. Signed By: CHIO SANDOVAL M.D. FLUOROSCOPY IN OR/PAIN Observed: 03/21/2018 Status: F Source: [employer] MGT 10:36 AM [facility] REPOSITORY FLUOROSCOPY IN OR/PAIN MGT Ordering Physician: Kylee Mcfadden DO 03/21/2018 11:30 AM FLUOROSCOPY CERVICAL SPINE: Clinical Statement: Chronic neck pain. Comparison: None. Report: 22 seconds of fluoroscopy time was utilized by pain management during a cervical epidural. Two fluoroscopic images were acquired over the cervicothoracic region to document needle placement and saved to PACS. IMPRESSION: Documentation of fluoroscopy. ---- Electronic Signature on File ---- Signed By: Tita Mckeon MD [email or web address] Dictated: 03/21/2018 12:31 PM Signed: 03/21/2018 12:39 PM Reported By: TITA MCKEON M.D. Signed By: TITA MCKEON M.D. TOXASSURE COMPR Collected: 03/14/2018 Status: F Source: [facility] 5:57 AM [facility] TYPE CODE TESTS RESULT OUT OF RANGE REFERENCE UNITS LAB L600.50721 () Normal TOXASSURE COMPR FINAL Result Comment: TOXASSURE COMP DRUG ANALYSIS,UR 6-Acetylmorphine,ToxAssure Add CREATININE,URINE Test Result Flag Units Drug Present Oxycodone 3256 ng/mg creat Oxymorphone 105 ng/mg creat Noroxycodone 2120 ng/mg creat Noroxymorphone 36 ng/mg creat Sources of oxycodone are scheduled prescription medications. Oxymorphone, noroxycodone, and noroxymorphone are expected metabolites of oxycodone. Oxymorphone is also available as a scheduled prescription medication. Pregabalin PRESENT Zolpidem PRESENT Zolpidem Acid PRESENT Zolpidem acid is an expected metabolite of zolpidem. Duloxetine PRESENT Fluoxetine PRESENT Norfluoxetine PRESENT Norfluoxetine is an expected metabolite of fluoxetine. Acetaminophen PRESENT Salicylate PRESENT Metoprolol PRESENT Test Result Flag Units Ref Range Creatinine 218 mg/dL >=20 Declared Medications: Medication list was not provided. For clinical consultation, please call . Performed By: #### L600.30221, L600.08045 #### [facility] [address] [place] [address] # [phone] 6-ACETYLMORPHIN Collected: 03/14/2018 Status: F Source: [facility] 5:57 AM [facility] REPOSITORY TYPE CODE TESTS RESULT OUT OF RANGE REFERENCE UNITS LAB L600.45519 () 6-YASMIN Normal TOXASSURE NEGATIVE Performed By: #### L600.93053, L600.63519 #### [facility] [address] [place] [address] # [phone] DEXA BONE DENSITY Observed: 03/06/2018 Status: F Source: [facility] 10:08 AM [facility] REPOSITORY [facility] Imaging Services [address] [place] [address] Dexa Bone Density Study MR#: [id number] Acct: [id number] Name: TIA SERVIN Rep #: [id number] : 1945 F 72 From: Maciel Galindo MD PCP: Mayra Goodman NP Status: REG CLI Study: Dexa Bone Density Study Date of Exam: 03/06/18 Exam# [id number] Ordering Dr: Mayra Goodman NP-Rm STUDY: DUAL ENERGY X-RAY ABSORPTIOMETRY / DXA REASON FOR EXAM: Female, 72 years old. The patient is postmenopausal. Loss of height. TECHNIQUE: Bone Mineral Density (BMD) measurements of lumbar spine and bilateral hips were obtained. COMPARISON: None. FINDINGS: Lumbar Spine (L1-L4): g/cm2 (1.490) / T-score (2.7) / Z-score (4.5) Findings are suggestive of normal bone density with a low fracture risk. Left Femur Total: g/cm2 (0.837) / T-score (-1.4) / Z- score (0.4) Left Femoral Neck: g/cm2 (0.818) / T-score (-1.6) / Z- score (0.3) Right Femur Total: g/cm2 (0.889) / T-score (-0.9) / Z- score (0.8) Right Femoral Neck: g/cm2 (0.756) / T-score (-2.0) / Z-score (-0.1) BD/Dexa Bone Density Study IMPRESSION: The patient is considered osteopenic as outlined below according to World Alon Organization (WHO) criteria with a moderate fracture risk. Reference Information: The T-score is the number of standard deviations above or below the standard which is normal for young adults at their peak bone mineral density. The World Health Organization (WHO) interprets the T-scores as follows: Above -1 Normal bone density Between -1 and -2.5 Osteopenia Equal to / or below -2.5 Osteoporosis As a practical clinical guideline, osteopenia may be graded as follows: Mild -1 through -1.5 Moderate -1.6 through -2.0 Severe -2.1 through -2.4 The Z-score is the number of standard deviations above or below age-matched controls. A Z-score of less than -1.5 would be considered abnormal. References: 1. NIH Osteoporosis and Related Bone Diseases http://www.osteo.org 2. International Society for Clinical Densitometry http://www.iscd.org 3. National Osteoporosis Foundation http://www.nof.org Electronically Signed: Maciel Galindo MD at 14:36 EST Tel [phone], Service support , CC: Mayra Goodman NP Service Transformer Repair Supervisor: Signed HEMOGLOBIN A1C Collected: 02/08/2018 Status: F Source: [facility] 10:17 AM [facility] REPOSITORY Order Comment: WANTS THE CMP CBCD WANTS THE A1C CMP [facility] TYPE CODE TESTS RESULT OUT OF RANGE REFERENCE UNITS LAB L501.9985 4.2-6.3 % Normal HGB A1C 5.9 Performed By: #### L501.9985 #### [facility] [address] [place], [place], [address] MICROALB:CREAT Collected: 02/08/2018 Status: F Source: RED RATIO,RANDOM UR 10:17 AM [facility] REPOSITORY Order Comment: WANTS THE CMP CBCD WANTS THE A1C CMP TSH [facility] TYPE CODE TESTS RESULT OUT OF RANGE REFERENCE UNITS LAB L501.1200 NO RANGE EST. mg/dL Normal UR CREAT 183.00 LAB L502.0500 NO RANGE EST. mg/L Normal 26.9 MICROALBUMIN ,UR LAB L502.0600 <30 mg/g CRE mg/g CRE Normal 14.7 MALB:CREAT Performed By: #### L502.0250 #### [facility] [address] [place], [address] CBC W/DIFF, AUTOMATED Collected: 02/08/2018 Status: F Source: RED 10:17 AM [facility] REPOSITORY Order Comment: WANTS THE CMP CBCD WANTS THE A1C CMP TSH [facility] TYPE CODE TESTS RESULT OUT OF RANGE REFERENCE UNITS LAB L100.1000 4.4-11.0 K/mm3 Normal WBC 6.6 LAB L100.1200 4.2-5.4 M/mm3 Normal RBC 4.80 LAB L100.1300 12.0-15.0 g/dl Normal HGB 12.7 LAB L100.1400 37-47 % Normal HCT 40.9 LAB L100.1500 81-99 fL Normal MCV 85.2 LAB L100.1600 27.0-32.0 pg Low MCH 26.5 LAB L100.1700 32-36 g/gl Low MCHC 31.1 LAB L100.1810 11.6-14.6 % High RDW CV 15.2 LAB L100.1820 35.1-43.9 fl High RDW SD 47.1 LAB L100.1900 150-450 K/mm3 Normal PLT 186 LAB L100.2000 6.2-12.0 fl Normal MPV 10.5 LAB L100.2100 47-70 % High NEUT% 80.5 LAB L100.2200 19-41 % Low LY% 12.4 LAB L100.2300 0-10 % Normal MONO% 6.2 LAB L100.2400 0-5 % Normal EO% 0.2 LAB L100.2500 0-1 % Normal BASO% 0.5 LAB L100.2550 0.0-0.9 % Normal IM GRAN % 0.200 Result Comment: IG% - Immature Granulocytes (promyelocytes, myelocytes and metamyelocytes) > 1% indicates that a LEFT SHIFT is Present. LAB L100.2620 2.0-7.7 X10 3/uL Normal Absolute Neut 5.3 LAB L100.2720 0.83-4.51 X10 3/ul Low Absolute Lymph 0.82 Performed By: #### L100.0100 #### [facility] [address] [place], [address] COMPREHENSIVE METABOLIC Collected: 02/08/2018 Status: F Source: RED [facility] 10:17 AM [facility] REPOSITORY Order Comment: WANTS THE CMP CBCD WANTS THE A1C CMP TSH [facility] TYPE CODE TESTS RESULT OUT OF RANGE REFERENCE UNITS LAB L501.0100 74-106 mg/dL High GLU 169 Result Comment: Fasting Glucose result greater than or equal to 126 mg/dL suggests DIABETES MELLITUS per A.D.A. criteria. Please note revised GLUCOSE reference range effective 2017. LAB L501.1000 7-18 mg/dL High BUN 22 LAB L501.1100 0.55-1.02 mg/dL Normal CREAT,SERUM 0.98 Result Comment: The validity of the calculated GFR AND GFRAA in patients over 70 years has not been determined. Clinical correlation is essential. LAB L501.1110 >60 mL/min Low EST GFR 59 Result Comment: Non- GFR Calc LAB L501.1115 >60 mL/min Normal EST GFR - AA 72 Result Comment: GFR Calc LAB L501.1300 10-20 RATIO High BUN/CRE 22.5 LAB L501.1500 6.4-8.2 g/dL T Normal PROT 6.7 LAB L501.1800 3.2-5.0 g/dL Low ALB 2.9 LAB L501.1950 2.2-4.2 g/dL Normal GLOB 3.8 LAB L501.2000 0.9-2.4 RATIO Low A/G 0.8 LAB L501.2200 8.5-10.1 mg/dL CA Normal 8.9 LAB L501.4100 15-37 U/L Low AST 11 LAB L501.4305 45-117 U/L Normal ALK P 53 LAB L501.4405 13-56 U/L Normal ALT 15 LAB L501.4600 0.20-1.00 mg/dL T Normal BILI 0.40 LAB L501.5300 136-145 mmol/L NA Normal 140 LAB L501.5600 3.5-5.1 mmol/L K Normal 4.8 LAB L501.5900 98-107 mmol/L CL Normal 107 LAB L501.6100 21.0-32.0 mmol/L Normal CO2 22.0 LAB L501.6200 5-15 Normal GAP 11 Performed By: #### L500.4050, L501.9520 #### [facility] [address] [place], [address] THYROID STIM HORMONE Collected: 02/08/2018 Status: F Source: [facility] (TSH) 10:17 AM [facility] REPOSITORY Order Comment: WANTS THE CMP CBCD WANTS THE A1C CMP TSH [facility] TYPE CODE TESTS RESULT OUT OF RANGE REFERENCE UNITS LAB L501.9520 0.358-3.74 uIU/mL Normal TSH 0.78 Performed By: #### L500.4050, L501.9520 #### [facility] [address] [place], [place], [address] INITAL EVALUATION (1) Observed: 12/17/2017 Status: F Source: RED - PT 10:38 AM [facility] REPOSITORY [facility] [address] [place] [address]. [address] [place], [place] [address] Fax REHABILITATION SERVICES INITIAL EVALUATION MR#: [id number] Acct: [id number] Name: TIA SERVIN Rep #: [id number] : 1945 72 From: Juanis Sanchez DPT Referring Dr.: Mayra Goodman FINANCIAL SERVICES TECHNICIAN Status: REG RCR Insurance: MEDICARE PART A B [facility] Patient's Visit Information TIA SERVIN is a 72 year old F referred to Physical Therapy by Mayra Goodman with a diagnosis of Charcot. Date of Evaluation: 12/17/17 Physical Therapist: Juanis Sanchez - Visit Plan Plan: w/c - Subjective Subjective: Has been dependent on a wheelchair for about 10 years. She has charcot foot and it stops her from walking. She was told if she did not get of them then she would lose her feet. She has pain all the time all over her body- at its worst is a 10/10- if she takes a percoset it diminishes but never goes away. Has a Roxie electric wheelchair at home. Transfer from wheel chair to bed and other surfaces- most days she has no problems doing transfers. Has a joystick that propels her. 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 Sleeps in a regular bed but the [...] a lot of falls- most recent was about a month ago off the side of her bed. She was able to crawl to her w/c and pull herself up. Does not transport outside of the home. Use to have a scooter which has so at this point the aide drives her car into the grass and patio so she can take steps for about 3 feet. No sensation in feet or hands. Fully continent and able to weight shift. Is normally in her wheelchair about 6 hours a day. Has a transfer chair in the car to [...] required UE A bilaterally and SBA for safety. ROM: WFL in all planes of the UE and LE. Strength: Ankle: 4/5, Knee: left: 4-/5 right: 4/5, Hip: left:3+/5, Right: 4/5, Core: poor, Scap: poor, Shoulder: 4- /5 throughout Elbow: 4-/5 Mechanical Specialist: poor - Goals Goal 1:: Patient will be eligable for [...] to be FAXED BACK to us at [phone] for Medicare purposes. Please let me know if there are questions or concerns regarding this plan of care. Physician Signature: Date: <Electronically signed by Juanis Sanchez DPT> 12/17/17 1038 CC: Mayra Goodman NP ELR Signed For Medicare only, by signing this I certify the plan of care. Physicians Signature Date ECHOCARDIOGRAM COMPLETE Observed: 12/11/2017 Status: F Source: [facility] 1:13 PM THREE REPOSITORY Transthoracic Echocardiogram [facility]: [facility] Rec#: [id number] (Age): 1945(72y) Height: 157.48(cm)/61(i Study Date: 12/11/2017 Weight: 97.07(kg)/214(l Room#: BSA: [id number] Type: Loc: Sex: F Reading: MD Leighton Coughlin Referring: KEE SMILEY ASHVIN It Audit Manager: Niurka Wellington RDCS, RVT History: Coronary artery disease. Diabetes. Hyperlipidemia Hypertension. MV stenosis. Peripheral Vascular Disease. Prior echo. Study Quality The study quality is fair. The study is technically limited due to poor parasternal windows. The study is technically limited due to patient body habitus. Summary: Patient identity verified (pause and confirm). Current HP present on patient chart. Procedure explained and patient verified understanding. Consent obtained for procedure. Conclusions: There is normal left ventricular systolic function. The estimated ejection fraction is 55-60%. The left atrium is mildly dilated. There is mild to moderate mitral regurgitation. There is mild aortic regurgitation. There is moderate tricuspid regurgitation. There is evidence of moderate pulmonary hypertension. The right ventricular systolic pressure is 49.79 mmHg. Findings Reason For Study: Mitral valve disorder. Left Ventricle: The left ventricular chamber size is normal. Mild concentric left ventricular hypertrophy is observed. There is normal left ventricular systolic function. The estimated ejection fraction is 55-60%. Left Atrium: The left atrium is mildly dilated. Right Ventricle: The right ventricular chamber size and systolic function are within normal limits. Right Atrium: The right atrium appears normal. Aortic Valve: The aortic valve appears bicuspid. Moderate aortic cusp sclerosis is present. There is no hemodynamically significant stenosis. There is mild aortic regurgitation. Mitral Valve: There is mitral annular calcification. The mitral valve leaflets are moderately thickened. Mitral valve leaflet mobility appears normal. There is mild to moderate mitral regurgitation. Tricuspid Valve: The tricuspid valve appears grossly normal in structure and function. There is moderate tricuspid regurgitation. The right ventricular systolic pressure is 49.79 mmHg. There is evidence of moderate pulmonary hypertension. Pulmonic Valve: The pulmonic valve appears grossly normal in structure and function. Pericardium: There is no pericardial effusion. The pericardium appears grossly normal. Aorta: The aortic root is normal in diameter. There is plaque visualized in the ascending aorta. HR 74 BP 166/94 Measurements Chambers 2D Name Value Normal Range IVSd (2D) 1.27 cm none LVPWd (2D) 0.98 cm none IVS:LVPW ratio (2D) 1.29 ratio none LVIDd (2D) 4.66 cm none LVIDs (2D) 3.28 cm none LVIDd (2D) index 2.37 cm/m2 none LVIDs (2D) index 1.67 cm/m2 none LV FS (2D) 29.61 % none LV FS (Teichholz) (2D) 29.6 % none LV FS (cube) (2D) 29.6 % none EF Teichholz (2D) 56.66 % none Ao root diameter (2D) 3.1 cm none LA dimension (AP) 2D 4.5 cm none LA:Ao ratio (2D) 1.45 ratio none Aortic root diameter (2D) inde1.58 cm/m2 none LA dimension (2D) index 2.29 cm/m2 none Volumes/Mass Name Value Normal Range LA ESV SP 4CH (MOD) 59.1 ml none LA ESV SP 2CH (MOD) 63.2 ml none LA ESV BP (MOD) 63.2 ml none LA ESV BP (MOD) index 32.13 ml/m2 none LV EDV SP 4CH (MOD) 74.9 ml none LV ESV SP 4CH (MOD) 34.5 ml none EF SP 4CH (MOD) 53.94 % none LV EDV SP 2CH (MOD) 57 ml none LV ESV SP 2CH (MOD) 25.4 ml none EF SP 2CH (MOD) 55.44 % none LV EDV BP 65.4 ml none LV ESV BP 31.3 ml none BP EF (MOD) 52.14 % none LV EDV BP index 33.24 ml/m2 none LV ESV BP index 15.91 ml/m2 none LV mass (2D) 191.03 g none LV mass (2D) index 97.11 g/m2 none Diastolic/Systolic Function Name Value Normal Range MV E-wave Vmax 1.31 m/sec none MV deceleration time 222 msec none MV A-wave Vmax 1.05 m/sec none MV E:A ratio 1.25 ratio (1.1 - 1.5) LV E:e' septal ratio 28.7 ratio none LV E:e' lateral ratio 28 ratio none TAPSE 2.61 cm none Aortic Valve Name Value Normal Range AV Vmax 1.87 m/sec (1 - 1.7) AV VTI 47.2 cm none AV peak gradient 13.99 mmHg (Less Than 36) AV mean gradient 8 mmHg (Less Than 20) LVOT diameter 2.5 cm (1.7 - 2.5) LVOT Vmax 0.99 m/sec (0.7 - 1.1) LVOT VTI 24.9 cm none LVOT peak gradient 4 mmHg none LVOT mean gradient 2 mmHg none DOI (VTI) 0.53 ratio none DOI (Vmax) 0.53 ratio none SV LVOT 122.17 ml none CO LVOT 9.04 l/min none Cardiac index 4.6 l/min/m2 none BRANDIN (continuity Vmax) 2.6 cm2 none BRANDIN (continuity Vmax) index 1.32 cm2/m2 none BRANDIN (continuity VTI) 2.59 cm2 none BRANDIN (continuity VTI) index 1.32 cm2/m2 none AR PHT 435 msec none AR peak gradient 45 mmHg none Ascending Ao 3.7 cm none Mitral Valve Name Value Normal Range MV Vmax 1.58 m/sec (0.6 - 1.3) MV VTI 53.3 cm none MV peak gradient 9.99 mmHg none MV mean gradient 4 mmHg none MV PHT 84 msec none MR Vmax 4.55 m/sec none MR VTI 115 cm none MR volume (PISA) 12.23 ml none MR flow (PISA) 48.4 ml/sec none MR ERO 0.11 cm2 none MVA (PHT) 2.62 cm2 none MVA (continuity VTI) 2.29 cm2 none Tricuspid Valve Name Value Normal Range TR Vmax 3.42 m/sec none TR peak gradient 46.79 mmHg none RAP 3 mmHg none RVSP 49.79 mmHg none Pulmonic Valve/Qp:Qs Name Value Normal Range PV Vmax 0.88 m/sec (0.6 - 0.9) PV VTI 22.6 cm none PV peak gradient 3.06 mmHg none PV mean gradient 2 mmHg none Electronically Signed at 12/11/2017 13:13:29 by: Cheko Uribe MD [facility] LIPID PANEL Collected: 12/11/2017 Status: F Source: [facility] 9:[address] [facility] REPOSITORY TYPE CODE TESTS RESULT OUT OF REFERENCE UNITS RANGE LAB CHOL 100-199 mg/dL Cholesterol Normal 178 LAB TRIG 25-120 mg/dL Triglycerides High 194 LAB HDL 40-59 mg/dL Low HDL 35 LAB LDL 10-150 mg/dL LDL Normal 105 LAB VLDL 5-40 mg/dL VLDL Normal 39 LAB CHOL/HDL 3.2-5.0 CHOL/HDL Ratio High 5.1 Result Comment: Female Coronary Heart Disease Risk Factor (CHDRF): Average risk= 4.4 1/2 Average risk= 3.3 2 times Average risk= 7.1 Performed By: #### LIPID #### Unless otherwise noted, all testing performed by [facility] [address] [place], [place] [address] CLIA: [id number] Voip Engineer: Rogelio Menon M.D. CBC W/DIFF, AUTOMATED Collected: 11/27/2017 Status: F Source: RED 10:11 AM [facility] REPOSITORY TYPE CODE TESTS RESULT OUT OF RANGE REFERENCE UNITS LAB L100.1000 4.4-11.0 K/mm3 Normal WBC 6.4 LAB L100.1200 4.2-5.4 M/mm3 Normal RBC 5.04 LAB L100.1300 12.0-15.0 g/dl Normal HGB 13.3 LAB L100.1400 37-47 % Normal HCT 42.8 LAB L100.1500 81-99 fL Normal MCV 84.9 LAB L100.1600 27.0-32.0 pg Low MCH 26.4 LAB L100.1700 32-36 g/gl Low MCHC 31.1 LAB L100.1810 11.6-14.6 % High RDW CV 14.8 LAB L100.1820 35.1-43.9 fl High RDW SD 45.0 LAB L100.1900 150-450 K/mm3 Normal PLT 200 LAB L100.2000 6.2-12.0 fl Normal MPV 9.9 LAB L100.2100 47-70 % High NEUT% 70.8 LAB L100.2200 19-41 % Low LY% 16.5 LAB L100.2300 0-10 % Normal MONO% 8.2 LAB L100.2400 0-5 % Normal EO% 3.7 LAB L100.2500 0-1 % Normal BASO% 0.5 LAB L100.2550 0.0-0.9 % Normal IM GRAN % 0.300 Result Comment: IG% - Immature Granulocytes (promyelocytes, myelocytes and metamyelocytes) > 1% indicates that a LEFT SHIFT is Present. LAB L100.2620 2.0-7.7 X10 3/uL Normal Absolute Neut 4.6 LAB L100.2720 0.83-4.51 X10 3/ul Normal Absolute Lymph 1.06 Performed By: #### L100.0100 #### [facility] [address] [place], [address] COMPREHENSIVE METABOLIC Collected: 11/27/2017 Status: F Source: [facility] 10:11 AM [facility] REPOSITORY TYPE CODE TESTS RESULT OUT OF RANGE REFERENCE UNITS LAB L501.0100 74-106 mg/dL High GLU 138 Result Comment: Fasting Glucose result greater than or equal to 126 mg/dL suggests DIABETES MELLITUS per A.D.A. criteria. Please note revised GLUCOSE reference range effective 2017. LAB L501.1000 7-18 mg/dL Normal BUN 18 LAB L501.1100 0.55-1.02 mg/dL High CREAT,SERUM 1.07 Result Comment: The validity of the calculated GFR AND GFRAA in patients over 70 years has not been determined. Clinical correlation is essential. LAB L501.1110 >60 mL/min Low EST GFR 53 Result Comment: Non- GFR Calc LAB L501.1115 >60 mL/min Normal EST GFR - AA 64 Result Comment: GFR Calc LAB L501.1300 10-20 RATIO Normal BUN/CRE 16.8 LAB L501.1500 6.4-8.2 g/dL T Normal PROT 6.9 LAB L501.1800 3.2-5.0 g/dL Low ALB 3.1 LAB L501.1950 2.2-4.2 g/dL Normal GLOB 3.8 LAB L501.2000 0.9-2.4 RATIO Low A/G 0.8 LAB L501.2200 8.5-10.1 mg/dL CA Normal 9.1 LAB L501.4100 15-37 U/L Low AST 14 LAB L501.4305 45-117 U/L Normal ALK P 58 LAB L501.4405 13-56 U/L Normal ALT 19 LAB L501.4600 0.20-1.00 mg/dL T Normal BILI 0.40 LAB L501.5300 136-145 mmol/L NA Normal 140 LAB L501.5600 3.5-5.1 mmol/L K Normal 4.6 LAB L501.5900 98-107 mmol/L CL Normal 102 LAB L501.6100 21.0-32.0 mmol/L Normal CO2 24.0 LAB L501.6200 5-15 Normal GAP 14 Performed By: #### L500.4050 #### [facility] [address] [place], [address] VITAMIN D,25 HYDROXY Collected: 11/12/2017 Status: F Source: [place] 9:19 AM [facility] REPOSITORY TYPE CODE TESTS RESULT OUT OF RANGE REFERENCE UNITS LAB L506.1000 29.95-100.01 ng/mL Normal Vitamin D 37.3 25-OH Result Comment: Vitamin D 25(OH) Status Range Deficiency <20 ng/mL (50nmol/L) Insuffciency 20 - 30 ng/mL (50 - 75 nmol/L) Sufficiency 30 - 100 ng/mL (75 - 250 nmol/L) Toxicity >100 ng/mL (>250 nmol/L) Performed By: #### L506.1000 #### [facility] [address] [place], [address] HEMOGLOBIN A1C Collected: 11/12/2017 Status: F Source: [place] 9:19 AM [facility] REPOSITORY TYPE CODE TESTS RESULT OUT OF RANGE REFERENCE UNITS LAB L501.9985 4.2-6.3 % Normal HGB A1C 5.6 Performed By: #### L501.9985 #### [facility] [address] [place], [address] COMPREHENSIVE METABOLIC Collected: 11/12/2017 Status: F Source: [facility] 9:19 AM [facility] REPOSITORY TYPE CODE TESTS RESULT OUT OF RANGE REFERENCE UNITS LAB L501.0100 74-106 mg/dL High GLU 117 Result Comment: Fasting Glucose result from 100 to 125 mg/dL suggests IMPAIRED HOMEOSTASIS per A.D.A. criteria. Please note revised GLUCOSE reference range effective 2017. LAB L501.1000 7-18 mg/dL High BUN 19 LAB L501.1100 0.55-1.02 mg/dL Normal CREAT,SERUM 0.96 Result Comment: The validity of the calculated GFR AND GFRAA in patients over 70 years has not been determined. Clinical correlation is essential. LAB L501.1110 >60 mL/min Normal EST GFR 60 Result Comment: Non- GFR Calc LAB L501.1115 >60 mL/min Normal EST GFR - AA 73 Result Comment: GFR Calc LAB L501.1300 10-20 RATIO Normal BUN/CRE 19.7 LAB L501.1500 6.4-8.2 g/dL T Normal PROT 6.5 LAB L501.1800 3.2-5.0 g/dL Low ALB 2.9 LAB L501.1950 2.2-4.2 g/dL Normal GLOB 3.6 LAB L501.2000 0.9-2.4 RATIO Low A/G 0.8 LAB L501.2200 8.5-10.1 mg/dL CA Normal 8.7 LAB L501.4100 15-37 U/L Normal AST 18 LAB L501.4305 45-117 U/L Normal ALK P 53 LAB L501.4405 13-56 U/L Normal ALT 19 LAB L501.4600 0.20-1.00 mg/dL T Normal BILI 0.40 LAB L501.5300 136-145 mmol/L NA Normal 141 LAB L501.5600 3.5-5.1 mmol/L K Normal 4.5 LAB L501.5900 98-107 mmol/L CL Normal 104 LAB L501.6100 21.0-32.0 mmol/L Normal CO2 26.0 LAB L501.6200 5-15 Normal GAP 11 Performed By: #### L500.4050, L501.9520 #### [facility] [address] [place], [place], [id number] THYROID STIM HORMONE Collected: 11/12/2017 Status: F Source: RED (TSH) 9:19 AM [facility] REPOSITORY TYPE CODE TESTS RESULT OUT OF RANGE REFERENCE UNITS LAB L501.9520 0.358-3.74 uIU/mL Normal TSH 2.33 Performed By: #### L500.4050, L501.9520 #### [facility] [address] [place], [address] PROGRESS Observed: 11/05/2017 Status: COMPLETED Source: [place] 10:34 AM [facility] [place] REPOSITORY HNO ID: [id number] Author: Andreina Lema Service: (none) Author Type: Physician Type: Progress Notes Filed: 11/06/2017 7:35 AM Note Text: PATIENT NAME: Tia Servin. CLINIC NO: [id number]. ATTENDING PHYSICIAN: Andreina Lema MD. DATE OF SERVICE: 11/05/2017. ? DIAGNOSIS: History of pernicious anemia and iron deficiency. ? ? HPI: ?This is a 72-year-old female with history of iron deficiency anemia and insulin resistant diabetes AND?pernicious anemia. ?? She?had required IV iron due to inability to tolerate oral iron (diarrhea and abdominal pain). ? She has undergone multiple GI evaluation for anemia. Her previous EGD showed a normal esophagus but several areas of antral gastritis and ulcerated gastric polyps?which was removed. She also had a colonoscopy 5 years ago according to the patient. She cannot have another colonoscopy because of her heart status. ?? She saw Dr. Francisco and diagnosed with rheumatoid arthritis. She was previously on methotrexate and folic acid. Her arthritis is currently under control with Arava. Patient denied rectal bleeding blood or melena. ?She has not had blood transfusion since 2009. She did have heme-positive stool in the past year. ?? Interim history: Ms. Servin feels very fatigue?and weak with?dyspnea and with exertion?2 weeks ago. ?Patient received iron sucrose infusion in the past. CBC on 10/28 showed?a hemoglobin 11.8, hematocrit 36.9. She was admitted for fatigue and shortness of breath at OSH. Cardiac enzymes and urine culture were negative. Repeat CBC the next day showed?hemoglobin 9.9 AND?hematocrit 31.5. Iron study iron 8 TIBC 191, iron saturation 4%. She was given iron infusion at the hospital before discharge home. ? Patient currently denies chest pain, palpitation, frequent headaches or increased lethargy. She denies any rectal bleeding or melena. She has not?seen?Dr. Toribio for anemia and heme positive stool. Previous evaluation including vitamin B12, folic acid were all normal. ? interim history: Patient has been doing well. She had resume vitamin B12 injection monthly at home. She has no rectal bleeding or melena. her stool is Hemoccult negative x 2. She is now on an aspirin daily. ? All medications AND allergies updated and reviewed by me. ? REVIEW OF SYSTEMS: ? CONSTITUTIONAL: ?No fevers, chills, nightsweats, unintended weight loss HEENT: ?Denies frequent or severe heaches, nasal congestion/sinus symptoms, problematic allergy problems. EYES: ?No diplopia or blurry vision. CARDIOVASCULAR: ?No chest pain, dyspnea, palpitations, orthopnea, PND, ankle edema. PULM: ?No dyspnea, unexplained cough. GI: ?No dysphagia/odynophagia, problematic reflux, constipation, diarrhea, changes in stool habits, hematochezia, melena. : ?No new urinary complaints, including dysuria, gross hematuria or pyuria. NEURO: ?No new balance problems, peripheral weakness/paresthesias or numbness of concern. MUSC-SKEL: ?No new joint pain, swelling, or erythema. PSY: ?No concerns regarding depression, anxiety or panic. INTEGUMENTARY: ?No new skin changes (rash, new or changing mole, new growth) ? PHYSICAL EXAMINATION: 72-year-old well-nourished well-developed female in no distress BP 135/55 Pulse 78 Temp (Src) 99.1 (Temporal Artery) Wt 222 lb (100.7kg) HEENT: Head is normocephalic, atraumatic. Sclerae white, conjunctivae pink. PEERL. EOMs are intact. Oropharynx is benign. LYMPHATICS: There is no palpable adenopathy in the neck, supraclavicular region, axillae, or groin. LUNGS: Lungs are clear to percussion and auscultation. HEART: Heart is normal without murmurs, gallops, or rubs. ABDOMEN: Soft and nontender without organomegaly. No masses can be palpated. EXTREMITIES: Are without edema. NEUROLOGIC: Exam is physiologic ? LABORATORY DATA: Component Latest Ref Rng AND Units 11/05/2017 WBC, [place] 3.70 - 11.00 k/uL 6.11 RBC, Red 3.90 - 5.20 m/uL 4.58 Hemoglobin, Red 11.5 - 15.5 g/dL 12.3 Hematocrit, Red 36.0 - 46.0 % 39.9 MCV, Red 80.0 - 100.0 fL 87.1 MCH, [place] 26.0 - 34.0 pg 26.9 MCHC, [place] 30.5 - 36.0 g/dL 30.8 RDW, [place] 11.5 - 15.0 % 15.2 (H) Platelet Cnt, [place] 150 - 400 k/uL 142 (L) MPV, [place] 9.0 - 12.7 fL 9.6 Absol Gran Count 1.45 - 7.50 k/uL 3.98 Component Latest Ref Rng AND Units 05/09/2017 05/10/2017 Occult Blood Source Stool Stool Occult Blood Diagnostic Negative Negative ASSESSMENT: 72-year-old female with anemia of chronic disease. ?History of pernicious anemia?and iron deficiency. Her anemia has resolved after iron infusion and vitamin B-12 injection. ?? PLAN:? - continue monthly vitamin B12 injection for pernicious anemia. - I still recommend that she consider get a barium enema or CT virtual colonoscopy for complete workup of her anemia. - she will follow up with her PCP. Andreina Lema MD Cc: Mayra Goodman, METAL SHAPING MACHINE OPERATOR ?Dr. Lex Toribio CNOVSP Observed: 11/05/2017 Status: COMPLETED Source: [place] 10:30 AM [facility] REPOSITORY Visit (SP) Office (AUDREY) TIA SERVIN ([id number]) 1945 [address] [facility] Date Time Provider Department 11/05/17 10:30 AM ANDREINA LEMA During your visit today, we recorded the following information about you: Temperature Pulse Blood pressure Weight 99.1 degrees 78/minute 135/55 100.7 kg Andreina Lema MD 11/06/2017 7:35 AM Signed PATIENT NAME: Tia Beck Gareth. CLINIC NO: [id number]. ATTENDING PHYSICIAN: Andreina Lema MD. DATE OF SERVICE: 11/05/2017. ? DIAGNOSIS: History of pernicious anemia and iron deficiency. ? ? HPI: ?This is a 72-year-old female with history of iron deficiency anemia and insulin resistant diabetes AND?pernicious anemia. ?? She?had required IV iron due to inability to tolerate oral iron (diarrhea and abdominal pain). ? She has undergone multiple GI evaluation for anemia. Her previous EGD showed a normal esophagus but several areas of antral gastritis and ulcerated gastric polyps?which was removed. She also had a colonoscopy 5 years ago according to the patient. She cannot have another colonoscopy because of her heart status. ?? She saw Dr. Francisco and diagnosed with rheumatoid arthritis. She was previously on methotrexate and folic acid. Her arthritis is currently under control with Arava. Patient denied rectal bleeding blood or melena. ?She has not had blood transfusion since 2009. She did have heme-positive stool in the past year. ?? Interim history: Ms. Servin feels very fatigue?and weak with?dyspnea and with exertion?2 weeks ago. ?Patient received iron sucrose infusion in the past. CBC on 10/28 showed?a hemoglobin 11.8, hematocrit 36.9. She was admitted for fatigue and shortness of breath at OSH. Cardiac enzymes and urine culture were negative. Repeat CBC the next day showed?hemoglobin 9.9 AND?hematocrit 31.5. Iron study iron 8 TIBC 191, iron saturation 4%. She was given iron infusion at the hospital before discharge home. ? Patient currently denies chest pain, palpitation, frequent headaches or increased lethargy. She denies any rectal bleeding or melena. She has not?seen?Dr. Toribio for anemia and heme positive stool. Previous evaluation including vitamin B12, folic acid were all normal. ? interim history: Patient has been doing well. She had resume vitamin B12 injection monthly at home. She has no rectal bleeding or melena. her stool is Hemoccult negative x 2. She is now on an aspirin daily. ? All medications AND allergies updated and reviewed by me. ? REVIEW OF SYSTEMS: ? CONSTITUTIONAL: ?No fevers, chills, nightsweats, unintended weight loss HEENT: ?Denies frequent or severe heaches, nasal congestion/sinus symptoms, problematic allergy problems. EYES: ?No diplopia or blurry vision. CARDIOVASCULAR: ?No chest pain, dyspnea, palpitations, orthopnea, PND, ankle edema. PULM: ?No dyspnea, unexplained cough. GI: ?No dysphagia/odynophagia, problematic reflux, constipation, diarrhea, changes in stool habits, hematochezia, melena. : ?No new urinary complaints, including dysuria, gross hematuria or pyuria. NEURO: ?No new balance problems, peripheral weakness/paresthesias or numbness of concern. MUSC-SKEL: ?No new joint pain, swelling, or erythema. PSY: ?No concerns regarding depression, anxiety or panic. INTEGUMENTARY: ?No new skin changes (rash, new or changing mole, new growth) ? PHYSICAL EXAMINATION: 72-year-old well-nourished well-developed female in no distress BP 135/55 Pulse 78 Temp (Src) 99.1 (Temporal Artery) Wt 222 lb (100.7kg) HEENT: Head is normocephalic, atraumatic. Sclerae white, conjunctivae pink. PEERL. EOMs are intact. Oropharynx is benign. LYMPHATICS: There is no palpable adenopathy in the neck, supraclavicular region, axillae, or groin. LUNGS: Lungs are clear to percussion and auscultation. HEART: Heart is normal without murmurs, gallops, or rubs. ABDOMEN: Soft and nontender without organomegaly. No masses can be palpated. EXTREMITIES: Are without edema. NEUROLOGIC: Exam is physiologic ? LABORATORY DATA: Component Latest Ref Rng AND Units 11/05/2017 WBC, [place] 3.70 - 11.00 k/uL 6.11 RBC, [place] 3.90 - 5.20 m/uL 4.58 Hemoglobin, Red 11.5 - 15.5 g/dL 12.3 Hematocrit, Red 36.0 - 46.0 % 39.9 MCV, Red 80.0 - 100.0 fL 87.1 MCH, Red 26.0 - 34.0 pg 26.9 MCHC, Red 30.5 - 36.0 g/dL 30.8 RDW, [place] 11.5 - 15.0 % 15.2 (H) Platelet Cnt, [place] 150 - 400 k/uL 142 (L) MPV, [place] 9.0 - 12.7 fL 9.6 Absol Gran Count 1.45 - 7.50 k/uL 3.98 Component Latest Ref Rng AND Units 05/09/2017 05/10/2017 Occult Blood Source Stool Stool Occult Blood Diagnostic Negative Negative ASSESSMENT: 72-year-old female with anemia of chronic disease. ?History of pernicious anemia?and iron deficiency. Her anemia has resolved after iron infusion and vitamin B-12 injection. ?? PLAN:? - continue monthly vitamin B12 injection for pernicious anemia. - I still recommend that she consider get a barium enema or CT virtual colonoscopy for complete workup of her anemia. - she will follow up with her PCP. Andreina Lema MD Cc: Mayra Goodman CNP ?Dr. Lex Toribio Referring Provider: MAYRA GOODMAN [[id number]] Allergies As of Date: 11/05/2017 Noted Allergy Reaction ERYC (ERYTHROMYCIN) 04/24/2005 LASIX (FUROSEMIDE) 03/04/2008 8 - GI Upset NAPROSYN (NAPROXEN) 06/20/2005 6 - Diarrhea Date Reviewed: 11/05/2017 Reviewed by: Romana Paulino - Fully Assessed Reason for Visit: Established Patient [175] Primary Visit Diagnosis:Iron deficiency anemia, unspecified iron deficiency anemia type [D50.9] Level of Service: EST PATIENT VISIT LEVEL 3 [[id number]] Disposition: Return if symptoms worsen or fail to improve. Follow-up and Disposition History Recorded Prescriptions as of 11/05/2017 Sig: CYANOCOBALAMIN (VIT B-12) 1,0* INJECT 1 ML INTRAMUSCULARLY O* BD LUER-LEA SYRINGE 3 ML 25 G* 12 EACH ONCE EVERY MONTH METFORMIN 500 MG TABLET Take 1,000 mg by mouth twice * LEVEMIR U-100 INSULIN 100 UNI* Inject 32 Units subcutaneousl* AMLODIPINE 5 MG TABLET Take 5 mg by mouth once daily. FLUTICASONE 50 MCG/ACTUATION * Use 1 Raymond in each nostril o* PREGABALIN 100 MG CAPSULE Take 100 mg by mouth twice da* QUINAPRIL 40 MG TABLET Take 40 mg by mouth once austin* ZOLPIDEM 10 MG TABLET Take by mouth daily at bedti* DULOXETINE 60 MG CAPSULE,CARMELA* Take 60 mg by mouth once austin* LEFLUNOMIDE 20 MG TABLET Take 20 mg by mouth once austin* OXYCODONE-ACETAMINOPHEN 7.5 M* Take 1-2 tablets by mouth twi* * CHOLECALCIFEROL (VITAMIN D3) * Take one(1) tablet daily. * MAGNESIUM OXIDE 400 MG TABLET Take one(1) tablet three time* * PRAVACHOL 40 MG TABLET Take one(1) tablet daily at b* * ASPIRIN 81 MG TABLET Take one(1) tablet daily. * SYNTHROID 100 MCG TABLET Take one(1) tablet daily. * FLUOXETINE 40 MG CAPSULE Take one(1) tablet daily. * ALDACTONE 25 MG TABLET Take one(1) tablet daily. * WallflowerTOUCH ULTRA TEST STRIPS test three time a day Insulin* Medication notes this encounter PREGABALIN 100 MG CAPSULE >> Romana Paulino MA 11/05/2017 9:57 AM >> ROMANA PAULINO MA SunNov 05, 2017 9:57 AM No longer taking 50mg at bedtime, taking 100mg twice daily. CHOLECALCIFEROL (VITAMIN D3) 1,000 UNIT TABLET >> Romana Paulino MA 11/05/2017 9:59 AM >> ROMANA PAULINO MA SunNov 05, 2017 9:59 AM Taking one tablet twice daily. Problem List As Of Date 11/05/2017 Noted Resolved DIABETES MELLITUS TYPE II-UNCOMPL [E11.9] CHRONIC ULCER OF SKIN [707] Hypothyroidism [E03.9] INVALID FOR* ASCVD [I25.10] INVALID FOR* Essential hypertension [I10] INVALID FOR* Pure hypercholesterolemia [E78.00] INVALID FOR* ANEMIA NOS [D64.9] INVALID FOR* IRON DEFIC ANEMIA NOS [D50.9] INVALID FOR* Other B-complex deficiencies [E53.8] INVALID FOR*07/07/2011 DIABETES TYPE II W NEURO MANIFESTATIONS [E11.49]INVALID FOR* Pernicious Anemia [D51.0] INVALID FOR* More... Change in mental status [R41.82] INVALID FOR* Lethargy [R53.83] INVALID FOR* Hypokalemia [E87.6] INVALID FOR* Rheumatoid arthritis (HCC) [M06.9] INVALID FOR* Status epilepticus (HCC) [G40.901] INVALID FOR* Difficult airway [T88.4XXA] INVALID FOR* Iron malabsorption [K90.9] INVALID FOR* Anemia [D64.9] INVALID FOR* Encounter Status:Closed by ANDREINA LEMA MD on 11/06/17 RED ABS GR + CBC Collected: 11/05/2017 Status: F Source: [place] 9:47 AM [facility] REPOSITORY TYPE CODE TESTS RESULT OUT OF REFERENCE UNITS RANGE LAB WWBC 3.70-11.00 k/uL [place] WBC 6.11 LAB WRBC 3.90-5.20 m/uL [place] RBC 4.58 LAB WHGB 11.5-15.5 g/dL [place] Hemoglobin 12.3 LAB WHCT 36.0-46.0 % [place] Hematocrit 39.9 LAB WMCV 80.0-100.0 fL Red MCV 87.1 LAB WMCH 26.0-34.0 pg [place] MCH 26.9 LAB WMCHC 30.5-36.0 g/dL [place] MCHC 30.8 LAB WRDW 11.5-15.0 % Red High RDW 15.2 LAB WPLT 150-400 k/uL Low [place] Platelet Cnt 142 LAB WMPV 9.0-12.7 fL Red MPV 9.6 Result Comment: Test performed at: [facility] [place], [address] [place] [address]. LAB ABGRAN 1.45-7.50 k/uL Absol Gran 3.98 Count CBC W/DIFF, AUTOMATED Collected: 09/05/2017 Status: F Source: [place] 10:01 AM [facility] REPOSITORY TYPE CODE TESTS RESULT OUT OF RANGE REFERENCE UNITS LAB L100.1000 4.4-11.0 K/mm3 Normal WBC 7.4 LAB L100.1200 4.2-5.4 M/mm3 Normal RBC 4.98 LAB L100.1300 12.0-15.0 g/dl Normal HGB 13.1 LAB L100.1400 37-47 % Normal HCT 43.1 LAB L100.1500 81-99 fL Normal MCV 86.5 LAB L100.1600 27.0-32.0 pg Low MCH 26.3 LAB L100.1700 32-36 g/gl Low MCHC 30.4 LAB L100.1810 11.6-14.6 % High RDW CV 14.9 LAB L100.1820 35.1-43.9 fl High RDW SD 46.5 LAB L100.1900 150-450 K/mm3 Normal PLT 181 LAB L100.2000 6.2-12.0 fl Normal MPV 9.1 LAB L100.2100 47-70 % Normal NEUT% 67.9 LAB L100.2200 19-41 % Low LY% 17.1 LAB L100.2300 0-10 % Normal MONO% 7.5 LAB L100.2400 0-5 % High EO% 6.8 LAB L100.2500 0-1 % Normal BASO% 0.4 LAB L100.2550 0.0-0.9 % Normal IM GRAN % 0.300 Result Comment: IG% - Immature Granulocytes (promyelocytes, myelocytes and metamyelocytes) > 1% indicates that a LEFT SHIFT is Present. LAB L100.2620 2.0-7.7 X10 3/uL Normal Absolute Neut 5.0 LAB L100.2720 0.83-4.51 X10 3/ul Normal Absolute Lymph 1.26 Performed By: #### L100.0100 #### [facility] [address] [place], [address] COMPREHENSIVE METABOLIC Collected: 09/05/2017 Status: F Source: [facility] 10:01 AM [facility] REPOSITORY TYPE CODE TESTS RESULT OUT OF RANGE REFERENCE UNITS LAB L501.0100 74-106 mg/dL High GLU 193 Result Comment: Fasting Glucose result greater than or equal to 126 mg/dL suggests DIABETES MELLITUS per A.D.A. criteria. Please note revised GLUCOSE reference range effective 2017. LAB L501.1000 7-18 mg/dL High BUN 21 LAB L501.1100 0.55-1.02 mg/dL High CREAT,SERUM 1.11 Result Comment: The validity of the calculated GFR AND GFRAA in patients over 70 years has not been determined. Clinical correlation is essential. LAB L501.1110 >60 mL/min Low EST GFR 51 Result Comment: Non- GFR Calc LAB L501.1115 >60 mL/min Normal EST GFR - AA 62 Result Comment: GFR Calc LAB L501.1300 10-20 RATIO Normal BUN/CRE 18.9 LAB L501.1500 6.4-8.2 g/dL T Normal PROT 6.6 LAB L501.1800 3.2-5.0 g/dL Low ALB 2.8 LAB L501.1950 2.2-4.2 g/dL Normal GLOB 3.8 LAB L501.2000 0.9-2.4 RATIO Low A/G 0.7 LAB L501.2200 8.5-10.1 mg/dL CA Normal 8.7 LAB L501.4100 15-37 U/L Low AST 14 LAB L501.4305 45-117 U/L Normal ALK P 63 LAB L501.4405 13-56 U/L Normal ALT 18 LAB L501.4600 0.20-1.00 mg/dL T Normal BILI 0.30 LAB L501.5300 136-145 mmol/L NA Normal 139 LAB L501.5600 3.5-5.1 mmol/L K Normal 5.0 LAB L501.5900 98-107 mmol/L CL Normal 104 LAB L501.6100 21.0-32.0 mmol/L Normal CO2 25.0 LAB L501.6200 5-15 Normal GAP 10 Performed By: #### L500.4050 #### [facility] [address] [place], [place], [id number] HEMOGLOBIN A1C Collected: 07/25/2017 Status: F Source: [place] 9:41 AM [facility] REPOSITORY TYPE CODE TESTS RESULT OUT OF RANGE REFERENCE UNITS LAB L501.9985 4.2-6.3 % Normal HGB A1C 5.8 Performed By: #### L501.9985 #### [facility] [address] [place], [address] COMPREHENSIVE METABOLIC Collected: 07/25/2017 Status: F Source: [facility] 9:41 AM [facility] REPOSITORY TYPE CODE TESTS RESULT OUT OF RANGE REFERENCE UNITS LAB L501.0100 74-106 mg/dL High GLU 197 Result Comment: Fasting Glucose result greater than or equal to 126 mg/dL suggests DIABETES MELLITUS per A.D.A. criteria. Please note revised GLUCOSE reference range effective 2017. LAB L501.1000 7-18 mg/dL High BUN 23 LAB L501.1100 0.55-1.02 mg/dL High CREAT,SERUM 1.11 Result Comment: The validity of the calculated GFR AND GFRAA in patients over 70 years has not been determined. Clinical correlation is essential. LAB L501.1110 >60 mL/min Low EST GFR 51 Result Comment: Non- GFR Calc LAB L501.1115 >60 mL/min Normal EST GFR - AA 62 Result Comment: GFR Calc LAB L501.1300 10-20 RATIO High BUN/CRE 20.7 LAB L501.1500 6.4-8.2 g/dL T Normal PROT 6.5 LAB L501.1800 3.2-5.0 g/dL Low ALB 2.9 LAB L501.1950 2.2-4.2 g/dL Normal GLOB 3.6 LAB L501.2000 0.9-2.4 RATIO Low A/G 0.8 LAB L501.2200 8.5-10.1 mg/dL CA Normal 8.6 LAB L501.4100 15-37 U/L Normal AST 17 LAB L501.4305 45-117 U/L Normal ALK P 63 LAB L501.4405 13-56 U/L Normal ALT 20 LAB L501.4600 0.20-1.00 mg/dL T Normal BILI 0.30 LAB L501.5300 136-145 mmol/L NA Normal 139 LAB L501.5600 3.5-5.1 mmol/L K Normal 5.0 LAB L501.5900 98-107 mmol/L CL Normal 105 LAB L501.6100 21.0-32.0 mmol/L Normal CO2 24.0 LAB L501.6200 5-15 Normal GAP 10 Performed By: #### L500.4050, L500.4100, L501.9520 #### [facility] [address] [place], [address] LIPID PROFILE Collected: 07/25/2017 Status: F Source: APACHE 9:41 AM [facility] REPOSITORY TYPE CODE TESTS RESULT OUT OF RANGE REFERENCE UNITS LAB L501.4900 200 mg/dL Normal CHOL 162 Result Comment: <200 mg/dL Desirable 200-240 mg/dL Borderline >240 mg/dL High Risk LAB L501.5000 mg/dL High TRIG 227 Result Comment: The drugs N-Acetylcysteine and Metamizole may falsely depress this assay. Serum Triglycerides Reference Interval Normal <150 mg/dL Borderline high 150 - 199 mg/dL High 200 - 499 mg/dL Very High > or = 500 mg/dL LAB L501.6400 mg/dL Low HDL 33 Result Comment: The drugs N-Acetylcysteine and Metamizole may falsely depress this assay. Reference Range HDL <40 mg/dL Low HDL Cholesterol HDL >or= 60 mg/dL High HDL Cholesterol LAB L501.6500 0-130 mg/dL Normal LDL 84 LAB L501.6600 5-40 mg/dL High VLDL 45 Performed By: #### L500.4050, L500.4100, L501.9520 #### [facility] [address] [place], [address] THYROID STIM HORMONE Collected: 07/25/2017 Status: F Source: RED (TSH) 9:41 AM [facility] REPOSITORY TYPE CODE TESTS RESULT OUT OF RANGE REFERENCE UNITS LAB L501.9520 0.358-3.74 uIU/mL Normal TSH 1.96 Performed By: #### L500.4050, L500.4100, L501.9520 #### [facility] [address] [place], [place], [address] MICROALB:CREAT Collected: 07/25/2017 Status: F Source: RED RATIO,RANDOM UR 9:41 AM [facility] REPOSITORY TYPE CODE TESTS RESULT OUT OF RANGE REFERENCE UNITS LAB L501.1200 NO RANGE EST. mg/dL Normal UR CREAT 310.00 LAB L502.0500 NO RANGE EST. mg/L Normal 46.0 MICROALBUMIN ,UR LAB L502.0600 <30 mg/g CRE mg/g CRE Normal 14.8 MALB:CREAT Performed By: #### L502.0250 #### [facility] [address] [place], [place], [address] CBC W/DIFF, AUTOMATED Collected: 06/12/2017 Status: F Source: RED 11:18 AM [facility] REPOSITORY TYPE CODE TESTS RESULT OUT OF RANGE REFERENCE UNITS LAB L100.1000 4.4-11.0 K/mm3 Normal WBC 4.7 LAB L100.1200 4.2-5.4 M/mm3 Normal RBC 5.02 LAB L100.1300 12.0-15.0 g/dl Normal HGB 12.6 LAB L100.1400 37-47 % Normal HCT 41.6 LAB L100.1500 81-99 fL Normal MCV 82.9 LAB L100.1600 27.0-32.0 pg Low MCH 25.1 LAB L100.1700 32-36 g/gl Low MCHC 30.3 LAB L100.1810 11.6-14.6 % High RDW CV 19.9 LAB L100.1820 35.1-43.9 fl High RDW SD 59.4 LAB L100.1900 150-450 K/mm3 Low PLT 126 LAB L100.2000 6.2-12.0 fl Normal MPV 9.4 LAB L100.2100 47-70 % Normal NEUT% 60.3 LAB L100.2200 19-41 % Normal LY% 23.2 LAB L100.2300 0-10 % High MONO% 12.0 LAB L100.2400 0-5 % Normal EO% 3.9 LAB L100.2500 0-1 % Normal BASO% 0.4 LAB L100.2550 0.0-0.9 % Normal IM GRAN % 0.200 Result Comment: IG% - Immature Granulocytes (promyelocytes, myelocytes and metamyelocytes) > 1% indicates that a LEFT SHIFT is Present. LAB L100.2620 2.0-7.7 X10 3/uL Normal Absolute Neut 2.8 LAB L100.2720 0.83-4.51 X10 3/ul Normal Absolute Lymph 1.08 Performed By: #### L100.0100 #### [facility] [address] [place], [address] COMPREHENSIVE METABOLIC Collected: 06/12/2017 Status: F Source: [facility] 11:18 AM [facility] REPOSITORY TYPE CODE TESTS RESULT OUT OF RANGE REFERENCE UNITS LAB L501.0100 74-106 mg/dL High GLU 121 Result Comment: Fasting Glucose result from 100 to 125 mg/dL suggests IMPAIRED HOMEOSTASIS per A.D.A. criteria. Please note revised GLUCOSE reference range effective 2017. LAB L501.1000 7-18 mg/dL High BUN 21 LAB L501.1100 0.55-1.02 mg/dL Normal CREAT,SERUM 0.95 Result Comment: The validity of the calculated GFR AND GFRAA in patients over 70 years has not been determined. Clinical correlation is essential. LAB L501.1110 >60 mL/min Normal EST GFR 61 Result Comment: Non- GFR Calc LAB L501.1115 >60 mL/min Normal EST GFR - AA 74 Result Comment: GFR Calc LAB L501.1300 10-20 RATIO High BUN/CRE 22.1 LAB L501.1500 6.4-8.2 g/dL T Normal PROT 6.5 LAB L501.1800 3.2-5.0 g/dL Low ALB 3.0 LAB L501.1950 2.2-4.2 g/dL Normal GLOB 3.5 LAB L501.2000 0.9-2.4 RATIO Normal A/G 0.9 LAB L501.2200 8.5-10.1 mg/dL Low CA 8.3 LAB L501.4100 15-37 U/L Low AST 11 LAB L501.4305 45-117 U/L Normal ALK P 63 LAB L501.4405 13-56 U/L Normal ALT 16 Result Comment: Please note revised ALT reference range effective 2017. LAB L501.4600 0.20-1.00 mg/dL Normal T BILI 0.60 LAB L501.5300 136-145 mmol/L Normal NA 140 LAB L501.5600 3.5-5.1 mmol/L Normal K 4.8 LAB L501.5900 98-107 mmol/L Normal CL 107 LAB L501.6100 21.0-32.0 mmol/L Normal CO2 26.0 LAB L501.6200 5-15 Normal GAP 7 Performed By: #### L500.4050 #### [facility] [address] [place], [address] OCCULT BLOOD DIAG. Collected: 05/10/2017 Status: F Source: [place] 8:00 AM [facility] REPOSITORY TYPE CODE TESTS RESULT OUT OF REFERENCE UNITS RANGE LAB OBSRCE Occult Stool Blood Source: LAB OBD Occult Negative Blood Diag. Performed By: #### OBDX #### [facility] [address] [place], [place] [address] OCCULT BLOOD DIAG. Collected: 05/09/2017 Status: F Source: [place] 8:00 AM [facility] REPOSITORY TYPE CODE TESTS RESULT OUT OF REFERENCE UNITS RANGE LAB OBSRCE Occult Stool Blood Source: LAB OBD Occult Negative Blood Diag. Performed By: #### OBDX #### [place] [address] RETICULOCYTE Collected: 05/07/2017 Status: F Source: [place] 11:15 AM [facility] REPOSITORY TYPE CODE TESTS RESULT OUT OF REFERENCE UNITS RANGE LAB RETC 0.4-2.0 % High Retic% 2.3 LAB ABRET 0.0180-0.1000 M/uL High Abs Retic 0.110 Performed By: #### RETIC, IRON, FERR #### [place] [address] IRON AND TIBC Collected: 05/07/2017 Status: F Source: [place] 11:15 AM [facility] REPOSITORY TYPE CODE TESTS RESULT OUT OF REFERENCE UNITS RANGE LAB IRN 41-186 ug/dL Low Iron 36 LAB TIBC 232-386 ug/dL TIBC 267 LAB SAT 15-57 % Low Transferrin Saturatn 13 Performed By: #### RETIC, IRON, FERR #### [place] [address] FERRITIN Collected: 05/07/2017 Status: F Source: [place] 11:15 AM [facility] REPOSITORY TYPE CODE TESTS RESULT OUT OF REFERENCE UNITS RANGE LAB FERR 14.7-205.1 ng/mL Ferritin 101.0 Performed By: #### RETIC, IRON, FERR #### [place] [address] PROGRESS Observed: 05/07/2017 Status: COMPLETED Source: [place] 11:07 AM [facility] REPOSITORY HNO ID: [id number] Author: Andreina Lema Service: (none) Author Type: Physician Type: Progress Notes Filed: 05/08/2017 7:40 AM Note Text: PATIENT NAME: Tia Servin. CLINIC NO: [id number]. ATTENDING PHYSICIAN: Andreina Lema MD. DATE OF SERVICE: 05/07/2017. ? DIAGNOSIS: History of pernicious anemia and iron deficiency. ? ? HPI: This is a 72-year-old female with history of iron deficiency anemia and insulin resistant diabetes AND pernicious anemia. ?? She had required IV iron due to inability to tolerate oral iron (diarrhea and abdominal pain). ? She has undergone multiple GI evaluation for anemia. Her previous EGD showed a normal esophagus but several areas of antral gastritis and ulcerated gastric polyps which was removed. She also had a colonoscopy 5 years ago according to the patient. She cannot have another colonoscopy because of her heart status. ?? She saw Dr. Francisco and diagnosed with rheumatoid arthritis. She was previously on methotrexate and folic acid. Her arthritis is currently under control with Arava. Patient denied rectal bleeding blood or melena. She has not had blood transfusion since 2009. She did have heme-positive stool in the past year. ?? Interim history: Ms. Servin feels very fatigue and weak with dyspnea and with exertion 2 weeks ago. Patient received iron sucrose infusion in the past. CBC on 10/28 showed a hemoglobin 11.8, hematocrit 36.9. She was admitted for fatigue and shortness of breath at OSH. Cardiac enzymes and urine culture were negative. Repeat CBC the next day showed hemoglobin 9.9 AND hematocrit 31.5. Iron study iron 8 TIBC 191, iron saturation 4%. She was given iron infusion at the hospital before discharge home. ? Patient currently denies chest pain, palpitation, frequent headaches or increased lethargy. She denies any rectal bleeding or melena. She has not seen Dr. Toribio for anemia and heme positive stool. Previous evaluation including vitamin B12, folic acid were all normal. interim history: Patient has been doing fairly well since last year after she receive iron infusion for iron deficiency anemia. She had resume vitamin B12 injection monthly at home. she noted no rectal bleeding or melena. She has mild fatigue but otherwise no symptom of chest pain, shortness of breath or dizziness. she is now on an aspirin daily, but not on Coumadin. All medications AND allergies updated and reviewed by me. REVIEW OF SYSTEMS: ? CONSTITUTIONAL: No fevers, chills, nightsweats, unintended weight loss HEENT: Denies frequent or severe heaches, nasal congestion/sinus symptoms, problematic allergy problems. EYES: No diplopia or blurry vision. CARDIOVASCULAR: No chest pain, dyspnea, palpitations, orthopnea, PND, ankle edema. PULM: No dyspnea, unexplained cough. GI: No dysphagia/odynophagia, problematic reflux, constipation, diarrhea, changes in stool habits, hematochezia, melena. : No new urinary complaints, including dysuria, gross hematuria or pyuria. NEURO: No new balance problems, peripheral weakness/paresthesias or numbness of concern. MUSC-SKEL: No new joint pain, swelling, or erythema. PSY: No concerns regarding depression, anxiety or panic. INTEGUMENTARY: No new skin changes (rash, new or changing mole, new growth) ? PHYSICAL EXAMINATION: 72-year-old well- nourished well-developed female in no distress BP 142/64 Pulse 77 Temp 97.9 Wt 218 lb 8 oz (99.1kg) HEENT: Head is normocephalic, atraumatic. Sclerae white, conjunctivae pink. PEERL. EOMs are intact. Oropharynx is benign. LYMPHATICS: There is no palpable adenopathy in the neck, supraclavicular region, axillae, or groin. LUNGS: Lungs are clear to percussion and auscultation. HEART: Heart is normal without murmurs, gallops, or rubs. ABDOMEN: Soft and nontender without organomegaly. No masses can be palpated. EXTREMITIES: Are without edema. NEUROLOGIC: Exam is physiologic ? LABORATORY DATA: Component Latest Ref Rng AND Units 11/13/2016 05/07/2017 WBC, [place] 3.70 - 11.00 k/uL 7.44 7.34 RBC, Red 3.90 - 5.20 m/uL 4.82 4.83 Hemoglobin, Red 11.5 - 15.5 g/dL 12.5 11.6 Hematocrit, Red 36.0 - 46.0 % 40.5 38.1 MCV, Red 80.0 - 100.0 fL 84.0 78.9 (L) MCH, [place] 26.0 - 34.0 pg 25.9 (L) 24.0 (L) MCHC, Red 30.5 - 36.0 g/dL 30.9 30.4 (L) RDW, [place] 11.5 - 15.0 % 16.0 (H) 17.0 (H) Platelet Cnt, [place] 150 - 400 k/uL 196 205 MPV, [place] 9.0 - 12.7 fL 8.9 (L) 9.1 Absol Gran Count 1.45 - 7.50 k/uL 5.59 5.12 Iron 41 - 186 ug/dL 55 TIBC 232 - 386 ug/dL 257 Transferrin Saturation 15 - 57 % 21 Retic % 0.4 - 2.0 % 3.0 (H) Abs Retic 0.0180 - 0.1000 M/uL 0.145 (H) Vitamin B12 211 - 946 pg/mL 242 Component Latest Ref Rng AND Units 05/07/2017 Iron 41 - 186 ug/dL 36 (L) TIBC 232 - 386 ug/dL 267 Transferrin Saturation 15 - 57 % 13 (L) Retic % 0.4 - 2.0 % 2.3 (H) Abs Retic 0.0180 - 0.1000 M/uL 0.110 (H) Ferritin 14.7 - 205.1 ng/mL 101.0 ASSESSMENT: 72-year-old female with anemia of chronic disease. History of pernicious anemia and iron deficiency (possible malabsorption versus chronic blood loss). ?? PLAN:? -Repeat reticulocyte count, iron/TIBC, and ferritin today. -Proceed iron infusion INJECTAFER 750mg IV weekly x 2 for iron deficiency. -continue vitamin B12 1000mcg IM injection monthly for pernicious anemia -check stool for Hemoccult x3 -Follow-up with business architect for EGD /colonoscopy or barium enema for heme positive stool and anemia. -Repeat CBC AND OV in 6 months. ? Andreina Lema MD ?? Cc: Mayra Goodman CNP ?Dr. Lex Toribio ? CNOVSP Observed: 05/07/2017 Status: COMPLETED Source: [place] 10:50 AM [facility] REPOSITORY Visit (SP) Office (HEMAWS) TIA SERVIN ([id number]) 1945 F CHT Date Time Provider Department 05/07/17 10:50 AM ANDREINA LEMA During your visit today, we recorded the following information about you: Temperature Pulse Blood pressure Weight 97.9 degrees 77/minute 142/64 99.1 kg Ailin Mcknight LPN 05/07/2017 10:59 AM Signed Est patient. Six month ov. Discuss recent labs. Ailin Lema MD 05/08/2017 7:40 AM Signed PATIENT NAME: Tia Servin. CLINIC NO: [id number]. ATTENDING PHYSICIAN: Andreina Lema MD. DATE OF SERVICE: 05/07/2017. ? DIAGNOSIS: History of pernicious anemia and iron deficiency. ? ? HPI: This is a 72-year-old female with history of iron deficiency anemia and insulin resistant diabetes ANDamp; pernicious anemia. ?? She had required IV iron due to inability to tolerate oral iron (diarrhea and abdominal pain). ? She has undergone multiple GI evaluation for anemia. Her previous EGD showed a normal esophagus but several areas of antral gastritis and ulcerated gastric polyps which was removed. She also had a colonoscopy 5 years ago according to the patient. She cannot have another colonoscopy because of her heart status. ?? She saw Dr. Francisco and diagnosed with rheumatoid arthritis. She was previously on methotrexate and folic acid. Her arthritis is currently under control with Arava. Patient denied rectal bleeding blood or melena. She has not had blood transfusion since 2009. She did have heme-positive stool in the past year. ?? Interim history: Ms. Servin feels very fatigue and weak with dyspnea and with exertion 2 weeks ago. Patient received iron sucrose infusion in the past. CBC on 10/28 showed a hemoglobin 11.8, hematocrit 36.9. She was admitted for fatigue and shortness of breath at OSH. Cardiac enzymes and urine culture were negative. Repeat CBC the next day showed hemoglobin 9.9 ANDamp; hematocrit 31.5. Iron study iron 8 TIBC 191, iron saturation 4%. She was given iron infusion at the hospital before discharge home. ? Patient currently denies chest pain, palpitation, frequent headaches or increased lethargy. She denies any rectal bleeding or melena. She has not seen Dr. Toribio for anemia and heme positive stool. Previous evaluation including vitamin B12, folic acid were all normal. interim history: Patient has been doing fairly well since last year after she receive iron infusion for iron deficiency anemia. She had resume vitamin B12 injection monthly at home. she noted no rectal bleeding or melena. She has mild fatigue but otherwise no symptom of chest pain, shortness of breath or dizziness. she is now on an aspirin daily, but not on Coumadin. All medications ANDamp; allergies updated and reviewed by me. REVIEW OF SYSTEMS: ? CONSTITUTIONAL: No fevers, chills, nightsweats, unintended weight loss HEENT: Denies frequent or severe heaches, nasal congestion/sinus symptoms, problematic allergy problems. EYES: No diplopia or blurry vision. CARDIOVASCULAR: No chest pain, dyspnea, palpitations, orthopnea, PND, ankle edema. PULM: No dyspnea, unexplained cough. GI: No dysphagia/odynophagia, problematic reflux, constipation, diarrhea, changes in stool habits, hematochezia, melena. : No new urinary complaints, including dysuria, gross hematuria or pyuria. NEURO: No new balance problems, peripheral weakness/paresthesias or numbness of concern. MUSC-SKEL: No new joint pain, swelling, or erythema. PSY: No concerns regarding depression, anxiety or panic. INTEGUMENTARY: No new skin changes (rash, new or changing mole, new growth) ? PHYSICAL EXAMINATION: 72-year-old well-nourished well-developed female in no distress BP 142/64 Pulse 77 Temp 97.9 Wt 218 lb 8 oz (99.1kg) HEENT: Head is normocephalic, atraumatic. Sclerae white, conjunctivae pink. PEERL. EOMs are intact. Oropharynx is benign. LYMPHATICS: There is no palpable adenopathy in the neck, supraclavicular region, axillae, or groin. LUNGS: Lungs are clear to percussion and auscultation. HEART: Heart is normal without murmurs, gallops, or rubs. ABDOMEN: Soft and nontender without organomegaly. No masses can be palpated. EXTREMITIES: Are without edema. NEUROLOGIC: Exam is physiologic ? LABORATORY DATA: Component Latest Ref Rng ANDamp; Units 11/13/2016 05/07/2017 WBC, [place] 3.70 - 11.00 k/uL 7.44 7.34 RBC, Red 3.90 - 5.20 m/uL 4.82 4.83 Hemoglobin, [place] 11.5 - 15.5 g/dL 12.5 11.6 Hematocrit, [place] 36.0 - 46.0 % 40.5 38.1 MCV, [place] 80.0 - 100.0 fL 84.0 78.9 (L) MCH, Red 26.0 - 34.0 pg 25.9 (L) 24.0 (L) MCHC, [place] 30.5 - 36.0 g/dL 30.9 30.4 (L) RDW, [place] 11.5 - 15.0 % 16.0 (H) 17.0 (H) Platelet Cnt, Red 150 - 400 k/uL 196 205 MPV, [place] 9.0 - 12.7 fL 8.9 (L) 9.1 Absol Gran Count 1.45 - 7.50 k/uL 5.59 5.12 Iron 41 - 186 ug/dL 55 TIBC 232 - 386 ug/dL 257 Transferrin Saturation 15 - 57 % 21 Retic % 0.4 - 2.0 % 3.0 (H) Abs Retic 0.0180 - 0.1000 M/uL 0.145 (H) Vitamin B12 211 - 946 pg/mL 242 Component Latest Ref Rng ANDamp; Units 05/07/2017 Iron 41 - 186 ug/dL 36 (L) TIBC 232 - 386 ug/dL 267 Transferrin Saturation 15 - 57 % 13 (L) Retic % 0.4 - 2.0 % 2.3 (H) Abs Retic 0.0180 - 0.1000 M/uL 0.110 (H) Ferritin 14.7 - 205.1 ng/mL 101.0 ASSESSMENT: 72-year-old female with anemia of chronic disease. History of pernicious anemia and iron deficiency (possible malabsorption versus chronic blood loss). ?? PLAN:? -Repeat reticulocyte count, iron/TIBC, and ferritin today. -Proceed iron infusion INJECTAFER 750mg IV weekly x 2 for iron deficiency. -continue vitamin B12 1000mcg IM injection monthly for pernicious anemia -check stool for Hemoccult x3 -Follow-up with business architect for EGD /colonoscopy or barium enema for heme positive stool and anemia. -Repeat CBC ANDamp; OV in 6 months. ? Andreina Lema MD ?? Cc: Mayra Goodman, METAL SHAPING MACHINE OPERATOR ?Dr. Lex Toribio ? Referring Provider: MAYRA GOODMAN [[id number]] Allergies As of Date: 05/07/2017 Noted Allergy Reaction ERYC (ERYTHROMYCIN) 04/24/2005 LASIX (FUROSEMIDE) 03/04/2008 8 - GI Upset NAPROSYN (NAPROXEN) 06/20/2005 6 - Diarrhea Date Reviewed: 05/07/2017 Reviewed by: Ailin Mcknight LPN - Fully Assessed Reason for Visit: Established Patient [175] Primary Visit Diagnosis:Pernicious anemia [D51.0] Other Visit Diagnoses:Anemia, unspecified type [D64.9] Iron malabsorption [K90.9] Order(s):IRON + TIBC [SQIRON] Order #: [id number] FUTURE FERRITIN BLD [SQFERR] Order #: [id number] FUTURE RETIC COUNT [SQRETIC] Order #: [id number] FUTURE OCCULT BLD EXAM-DIAG [SQOB] Order #: [id number] STANDING Level of Service: EST PATIENT VISIT LEVEL 3 [32329] Follow-up and Disposition History Recorded Prescriptions as of 05/07/2017 Sig: CYANOCOBALAMIN (VIT B-12) 1,0* Inject 1 mL intramuscularly o* SYRINGE WITH NEEDLE 3 ML 25 G* 12 Each once every month. METFORMIN 500 MG TABLET Take 1,000 mg by mouth twice * LEVEMIR 100 UNIT/ML SUBCUTANE* Inject 32 Units subcutaneousl* AMLODIPINE 5 MG TABLET Take 5 mg by mouth once daily. FLUTICASONE 50 MCG/ACTUATION * Use 1 Raymond in each nostril o* PREGABALIN 100 MG CAPSULE Take 100 mg by mouth twice da* QUINAPRIL 40 MG TABLET Take 40 mg by mouth once austin* ZOLPIDEM 10 MG TABLET Take by mouth daily at bedti* DULOXETINE 60 MG CAPSULE,CARMELA* Take 60 mg by mouth once austin* LEFLUNOMIDE 20 MG TABLET Take 20 mg by mouth once austin* OXYCODONE-ACETAMINOPHEN 7.5 M* Take 1-2 tablets by mouth twi* * CHOLECALCIFEROL (VITAMIN D3) * Take one(1) tablet daily. * MAGNESIUM OXIDE 400 MG TABLET Take one(1) tablet three time* * PRAVACHOL 40 MG TABLET Take one(1) tablet daily at b* * ASPIRIN 81 MG TABLET Take one(1) tablet daily. * SYNTHROID 100 MCG TABLET Take one(1) tablet daily. * FLUOXETINE 40 MG CAPSULE Take one(1) tablet daily. * ALDACTONE 25 MG TABLET Take one(1) tablet daily. * ONETOUCH ULTRA TEST STRIPS test three time a day Insulin* Medication notes this encounter PREGABALIN 100 MG CAPSULE >> Ailin Mcknight LPN 05/07/2017 10:51 AM >> BECK FOOTE AILIN SunMay 07, 2017 10:51 AM Also takes 50mg @ HS Problem List As Of Date 05/07/2017 Noted Resolved DIABETES MELLITUS TYPE II-UNCOMPL [E11.9] CHRONIC ULCER OF SKIN [707] Hypothyroidism [E03.9] INVALID FOR* ASCVD [I25.10] INVALID FOR* Essential hypertension [I10] INVALID FOR* Pure hypercholesterolemia [E78.00] INVALID FOR* ANEMIA NOS [D64.9] INVALID FOR* IRON DEFIC ANEMIA NOS [D50.9] INVALID FOR* Other B-complex deficiencies [E53.8] INVALID FOR*07/07/2011 DIABETES TYPE II W NEURO MANIFESTATIONS [E11.49]INVALID FOR* Pernicious Anemia [D51.0] INVALID FOR* More... Change in mental status [R41.82] INVALID FOR* Lethargy [R53.83] INVALID FOR* Hypokalemia [E87.6] INVALID FOR* Rheumatoid arthritis (HCC) [M06.9] INVALID FOR* Status epilepticus (HCC) [G40.901] INVALID FOR* Difficult airway [T88.4XXA] INVALID FOR* Visit Notes: >> Ailin Mcknight LPN SunMay 07, 2017 10:52 AM Status: Signed Est patient. Six month ov. Discuss recent labs. Ailin Mcknight LPN Encounter Status:Closed by ANDREINA LEMA MD on 05/08/17 RED ABS GR + CBC Collected: 05/07/2017 Status: F Source: [place] 10:40 AM [facility] [place] REPOSITORY TYPE CODE TESTS RESULT OUT OF REFERENCE UNITS RANGE LAB WWBC 3.70-11.00 k/uL Red WBC 7.34 LAB WRBC 3.90-5.20 m/uL Red RBC 4.83 LAB WHGB 11.5-15.5 g/dL Red Hemoglobin 11.6 LAB WHCT 36.0-46.0 % [place] Hematocrit 38.1 LAB WMCV 80.0-100.0 fL Low [place] MCV 78.9 LAB WMCH 26.0-34.0 pg Low Red MCH 24.0 LAB WMCHC 30.5-36.0 g/dL Low Red MCHC 30.4 LAB WRDW 11.5-15.0 % Red High RDW 17.0 LAB WPLT 150-400 k/uL Red Platelet Cnt 205 LAB WMPV 9.0-12.7 fL [place] MPV 9.1 Result Comment: Test performed at: [facility] [place], [address] [place] [address]. LAB ABGRAN 1.45-7.50 k/uL Absol Gran 5.12 Count OCCULT BLOOD DIAG. Collected: 05/07/2017 Status: F Source: [place] 8:00 AM [facility] REPOSITORY TYPE CODE TESTS RESULT OUT OF REFERENCE UNITS RANGE LAB OBSRCE Occult Stool Blood Source: LAB OBD Occult Negative Blood Diag. Performed By: #### OBDX #### [facility] [address] [place], [place] [address] ALLERGIES ALLERGIES DATE TYPE / CODE NAME / CODE REACTION SEVERITY SOURCE 03/22/2016 DRUG EXENATIDE [facility] INGREDI/419 Three Repository [id number](SNOM ED CT) 03/22/2016 DRUG PHENYTOIN SODIUM [facility] INGREDI/419 EXTENDED Three Repository [id number](SNOM ED CT) 03/22/2016 DRUG LABETALOL [facility] INGREDI/419 Three Repository 425292(SNOM ED CT) 03/22/2016 DRUG FUROSEMIDE [facility] INGREDI/419 Three Repository 559142(SNOM ED CT) 03/04/2015 Drug furosemide/[id number] Vomiting Unknown [place] Allergy/416 07(RXNORM) Community [id number]([facility] Hospital ED CT) Repository 03/04/2008 DRUG FUROSEMIDE GI UPSET [facility] INGREDI/419 [facility] 255796(SNOM Repository ED CT) 06/20/2005 DRUG NAPROXEN DIARRHEA [facility] INGREDI/419 [facility] 315421(SNOM Repository ED CT) 04/24/2005 DRUG/[id number] ERYTHROMYCIN [facility] 003(SNOMED [facility]) Repository ENCOUNTERS ENCOUNTERS ADMIT/DISCHARGE ACCOUNT NUMBER ADMITTING ENCOUNTER LOCATION SOURCE CLASS 04/04/2018 [id number] [facility]patient [facility] Repository ng:H.PM 03/21/2018 [id number] [facility] Repository ng:H.PM 03/14/2018 [id number] Ambulatory [facility] Repository ng:H.PM 03/06/2018 [id number] Ambulatory [facility] ding:OPBD Repository 02/20/2018 08018 Ambulatory Building:[facility] Practices Repository 02/08/2018 [id number] Ambulatory [facility] ding:LAB Repository 12/27/2017 [id number] Ambulatory [facility] Repository ng:H.PM 12/17/2017 [id number] Ambulatory [facility] ding:PT Repository 12/11/[id number] [place] [address] Ambulatory [facility] Repository 12/11/2017/12/12/19 [id number] Ambulatory Building:[place] [address] X Three Repository 12/11/[id number] [place] [address] Ambulatory [facility] Repository 11/28/2017/11/29/19 [id number] Ambulatory Building:[facility] [place] [address] HVPGAHANNAAM Three BPKWY Repository 11/27/2017 [id number] Ambulatory [facility] ding:LAB Repository 11/12/2017 [id number] Ambulatory [facility] ding:LAB Repository 11/05/2017/11/07/19 [id number] Ambulatory [address] Repository 11/05/2017/11/07/19 [id number] Ambulatory [address] Repository 10/25/2017 [id number] Ambulatory [facility] [place] Repository ng:H.PM 09/05/2017 [id number] Ambulatory [facility] ding:LAB Repository 08/07/2017 [id number] [place]ulatory [facility] [place] ng:H.PM 07/25/2017 [id number] Ambulatory [facility] ding:LAB Repository 06/12/2017 [id number] Ambulatory [facility] ding:LAB Repository 05/29/2017/05/31/19 [id number] Ambulatory [address] Repository 05/22/2017/05/23/19 [id number] Ambulatory [address] Repository 05/17/2017 [id number] Ambulatory [facility] [place] Repository ng:H.PM 05/10/2017/05/10/19 [id number] Ambulatory [address] Repository 05/10/2017/05/10/19 [id number] Ambulatory [address] Repository 05/10/2017/05/10/19 [id number] Ambulatory [address] Repository 05/07/2017 [id number] Ambulatory [facility] Repository 05/07/2017/05/09/19 [id number] Ambulatory [address] Repository 05/07/2017/05/08/19 [id number] Ambulatory [address] Repository PAYERS PAYERS ENCOUNTER GUARANTOR PAYER SUBSCRIBER SOURCE 04/04/2018 [place] [address] Insurance:MEDICAREPol [facility] POINT OF VIEW icy Number: Repository [address] [place] [id number] [address]Ioh: (330) Date:2008-02-24P O [phone] () [address]IUDV CODE QT759XILVGPGU, [place] [address]TG: 04/04/2018 Secondary [facility] Insurance:ENTER NAME [facility] OF INSURANCEPolicy Repository Number: [id number] Date:MUTUAL OF ELLA STARKEYWILBERTOPATLILLIANA [address]XE: 04/04/2018 Tertiary [facility] Insurance:MEDICAID OF [facility] Number: Repository [id number] Date:2018-03-293541-05-02[address] [address]GG: 03/21/2018 [place] 308981 Insurance:MEDICAREPol [place] [facility] [place] POINT OF VIEW icy Number: Repository elodia JORGE [id number] [address]Isk: (330) Date:[address] (HP) 766814MHBO CODE YS398YELJIJOSTRIPOLI, [place] [address]LF: 03/21/2018 Secondary [facility] Insurance:ENTER NAME [facility] Repository Number: [id number] Date:[place], [place] [address]EZ: 03/21/2018 Tertiary [facility] Insurance:MEDICAID OF [place] [facility] [place] OHIOPolicy Number: Repository [id number] Date:2016-02-249288-54-24[address] [address]XC: 03/14/2018 [place] [id number] Insurance:MEDICAREPol [place] [facility] [place] POINT [place]IEW icy Number: Repository elodia JORGE [id number] [address]Iqi: (330) Date:[address] (HP) 802422UCMO CODE EE735AGWJQTGD, [place] [address]GF: 03/14/2018 Secondary [facility] Insurance:ENTER NAME [facility] Repository Number: [id number] Date:MUTUAL [place], [place] [address]QY: 03/14/2018 Tertiary [facility] Insurance:MEDICAID OF [place] [facility] [place] OHIOPolicy Number: Repository [id number] Date:2016-02-243504-31-04SB [address], [place] [address]BJ: 03/06/2018 TIA L Primary TIA L [place] [id number] Insurance:MEDICARE JACKSONDOB: Community PO[place] A [place] PART A BPolicy [id number] Hospital MOJGAN LEVI, Number: [place]ository [place] [address]Yvw: [id number] Date:2018-02-22 (HP) 03/06/2018 Secondary TIA L [place] Insurance:MUTUAL OF JACKSONDOB: Community [facility]: [id number] Hospital [id number] Repository Date:7725-53-10YBDLRV OF [place] LILLIANA HENRIQUEZ [address]MB: 03/06/2018 Tertiary TIA L Red Insurance:MEDICAIDPol JACKSONDOB: Community icy Number: [id number] Hospital [id number] Repository Date:2018-02-22 03/06/2018 Tertiary NOT GIVENUNK Red Insurance:SELF PAY [facility] Number: Effective Repository Date:2018-02-22 02/20/2018 Tia L Primary Tia L OHIP Practices JacksonDOB: Insurance:MedicarePol JacksonDOB: Repository [id number] icy Number: [id number] point of view [id number] 1 point of view mojgan Sim[place] Date:4081-67-87Qake [place]gan [place]sT[place], [place] [address]Nnw: (129) Name:[facility] Priya [address]Uuu: 748[address]CxpredtxTALCO, [place] [phone] (HP) (HP)Tel: [phone]: (wp) [phone] 02/20/2018 Secondary Tia L OHIP Practices Insurance:Ambia of JacksonDOB: Repository [facility] Number: [id number] 1 point of view Date:7173-28-82Iwgb mo[place]gan [place]sT[place], [place] Name:FMutual [facility] [address]Cpo: LILLIANA Henriquez ~(3 [address]UZ: [phone] (HP) [phone] 02/08/2018 TIA L Primary TIA L Red [id number] Insurance:MEDICARE JACKSONDOB: Community [place] PART A BPolicy [id number] Hospital MOJGAN LEVI, Number: [place]ository [place] [address]Hjv: [id number] Date:2018-02-08 (HP) 02/08/2018 Secondary TIA L [place] Insurance:MUTUAL OF [facility]: [facility] Number: [id number] Hospital [id number] Repository Date:2643-86-64VKAYYZ [place] [address]YH: 02/08/2018 Tertiary TIA L [place] Insurance:MEDICAIDPol JACKSONDOB: [facility] icy Number: [id number] Hospital [id number] Repository Date:2018-02-08 02/08/2018 Tertiary NOT [facility] Insurance:SELF PAY [facility] Number: Effective Repository Date:2018-02-08 12/27/2017 [facility] Medical [id number] Insurance:MEDICAREPol [facility] POINT OF VIEW icy Number: Repository [facility] CHEROKEEMDADYupper [place], [place] [id number] [address]Ezj: (330) Date:[address] (HP) 687413VRHQ CODE NF911INELRDASTRIPOLI, [place] [address]MN: 12/27/2017 Secondary [facility] Insurance:ENTER NAME [facility] Repository Number: [id number] Date:[place], [place] [address]WH: 12/27/2017 Tertiary [facility] Insurance:MEDICAID [facility] Number: Repository [id number] Date:2016-02-24 - 0857-31-36CM [address] [address]VG: 12/17/2017 TIA L Primary TIA L Red [id number] Insurance:MEDICARE JACKSONDOB: Community [place] PART A BPolicy [id number] Hospital BERNARDA SIMS, Number: Repository [place] [address]May: [id number] Date:2008-02-24 (HP) 12/17/2017 Secondary TIA L Red Insurance:MUTUAL OF JACKSONDOB: Community [facility] Number: [id number] Hospital [id number] Repository Date:9948-33-31QUDARG OF [place] [address]MB: 12/17/2017 Tertiary TIA L Red Insurance:MEDICAIDPol JACKSONDOB: Community icy Number: [id number] Hospital [id number] Repository Date:2017-11-24 12/17/2017 Tertiary NOT GIVENUNK [place] Insurance:SELF PAY [facility] Number: Effective Repository Date:2017-12-12 12/11/2017 Primary TIA L [facility] Insurance:MedicarePol JACKSONDOB: [place] [facility] Number: [id number] [facility] [id number] 1 POINT OF YOU Repository Date:Plan Name:ELODIA Sandoval [address]Ucu: () 12/11/2017 Secondary TIA L [facility] Insurance:MedicarePol JACKSONDOB: Erica and federico Number: [id number] [facility] [id number] 1 POINT OF YOU Repository Date:Plan Name:ELODIA Sandoval B [address]Mth: (HP) 12/11/2017 Tertiary TIA L [facility] Insurance:Ambia Of [place]: [place] [facility] Number: [id number] [facility] [id number] 1 POINT OF YOU Repository Date:Plan ELODIA YONUG [facility] Hospital[facility] of [address]Ueq: (936) [place], [place] [phone] (HP) [address]TR: 12/11/2017 Tertiary TIA L [facility] Insurance:MedicaidPol JACKSONDOB: [place] and icy Number: [id number] [facility] [id number] 1 POINT OF YOU Repository Date:Plan Name:[facility] [place] [address]Ors: (HP) 12/11/2017 [facility] Insurance:COMMERCIALP JACKSONDOB: Three Repository olicy Number: [id number] POINT OF [place]IEW [id number] 1 POINT [place]IEW ELODIA YOUNG Date:MUTUAL [facility] [place] [address]Uhl: (944) [place], [place] [address]Pyo: (HP) [address]SP: (HP) [phone] 12/11/2017 Secondary [facility] Insurance:MEDICAREPol [facility] Three Repository icy Number: [id number] 1 POINT OF [place]IEW Date:4705-17-58TLZ [place] J15 PART A CLAIMSPO [address]Xvv: (477) [address]OSGFZNDFK, [phone] (HP) [place] [address]WV: 12/11/2017 Tertiary [facility] Health Insurance:MEDICAIDPol [facility] Three Repository icy Number: [id number] 1 POINT [place]IEW Date:1804-74-31HG PRIYA [place] [address], [place] [address]Dvq: (114) [phone]: (HP) [phone] 12/11/2017 Primary [facility] Insurance:MedicarePol [facility] Erica and icy Number: [id number] [facility] [id number] 1 POINT OF [place]IEW Repository Date:Plan [facility] [place] [facility] [address]Fhe: (HP) 12/11/2017 Secondary [facility] Insurance:MedicarePol [facility] Erica and icy Number: [id number] [facility] [id number] 1 POINT [place] Repository Date:Plan [facility]va B [address]Aue: (HP) 12/11/2017 [facility] Insurance:Ambia Of [facility] [place] [facility] Number: [id number] [facility] [id number] 1 POINT OF [place]IEW Repository Date:Plan ELODIA YOUNG Name:HealthMutual [address]Zxe: (330) [place], [place] [phone] (HP) [address]GV: 12/11/2017 [facility] Insurance:MedicaidPol [facility]: [place] and icy Number: [id number] [facility] [id number] 1 POINT [place] Repository Date:Plan Name:[facility] ELODIA YOUNG [address]Wuv: (HP) 11/28/2017 [facility] Insurance:COMMERCIALP [facility]: Three Repository olicy Number: [id number] PO[place] OF [place]IEW [id number] 1 POINT OF [place]IEW ELODIA YOUNG Date:MUTUAL OF [place] [address]Yxp: (330) [place] [address]Hdx: (HP) [address]DA: (HP) [phone] 11/28/2017 Secondary [facility] Health Insurance:MEDICAREPol [facility]: Three Repository icy Number: [id number] 1 PO[place] Date:8948-63-99FTG ELODIA YOUNG J15 PART A CLAIMSPO [address]Ors: (305) [address]UHAHODURP, 2642431 (HP) [place] [address]BM: 11/28/2017 Tertiary TIA [facility] Insurance:MEDICAIDPol JACKSONDOB: Three Repository icy Number: [id number] 1 POINT OF [place]IEW Date:9454-38-61KD PRIYA YOUNGTAL[place], [place] [address]CCATRACHO, [place] [address]Anu: [phone]: () [phone] 11/27/2017 TIA L Primary TIA L [place] [id number] Insurance:MEDICARE JACKSONDOB: Community [place] PART A [facility] [id number] [facility], Number: Repository [place] [id number]: [id number] Date:2017-11-27 () 11/27/2017 Secondary TIA L [place] Insurance:MUTUAL OF [facility] Number: [id number] Hospital [id number] Repository Date:0887-27-22ALDXKGBARBERTON, [place] [address]RU: 11/27/2017 Tertiary TIA L [place] Insurance:MEDICAIDPol [facility]: [facility] icy Number: [id number] Hospital [id number] Repository Date:2017-11-27 11/27/2017 Tertiary NOT GIVENUNK Red Insurance:SELF PAY [facility] Number: Effective Repository Date:2017-11-27 11/12/2017 TIA L Primary TIA L [place] [id number] Insurance:MEDICARE JACKSONDOB: Community [place] PART A [facility] [id number] [facility], Number: Repository [place] [address]Eva: [id number] Date:2017-11-12 () 11/12/2017 Secondary TIA L [place] Insurance:MUTUAL OF [facility] Number: [id number] Hospital [id number] Repository Date:8423-94-89YXJIGDBARBERTON, [place] [address]AN: 11/12/2017 Tertiary TIA L [place] Insurance:MEDICAIDPol JACKSONDOB: Community icy Number: [id number] Hospital [id number] Repository Date:2017-11-12 11/12/2017 Tertiary NOT [facility] [place] Insurance:SELF PAY [facility] Number: Effective Repository Date:2017-11-12 10/25/2017 [facility] Medical [id number] [facility] POINT OF VIEW icy Number: Repository [facility] [place]Iupper [place], [place] [id number] [address]Bev: (330) Date:[address] (HP) 466[address]NUET CODE GJ964ORISUOOZTRIPOLI, [place] [address]EQ: 10/25/2017 Secondary [facility] Insurance:ENTER [facility] OF [facility] Repository Number: [id number] Date:MUTUAL OF [facility], [place] [address]QA: 10/25/2017 [facility] Insurance:MEDICAID [facility] Number: Repository [id number] Date:2016-02-24 - 6743-68-74[address] [address]FN: 09/05/2017 [facility] Primary TIA L Red [id number] Insurance:MEDICARE [facility]: Community [place] PART A BPolicy [id number] Hospital BERNARDA BARAJASLINDA, Number: Repository [place] [address]Jrt: [id number] [phone] Date:2017-09-05 (HP) 09/05/2017 Secondary TIA L [place] Insurance:MUTUAL OF [facility]: [facility] Number: [id number] Hospital [id number] Repository Date:5366-68-52OJVFWK OF [facility], [place] [address]RA: 09/05/2017 Tertiary TIA L [place] Insurance:MEDICAIDPol [facility] Community icy Number: [id number] Hospital [id number] Repository Date:2017-09-05 09/05/2017 Tertiary NOT GIVENUNK Red Insurance:SELF PAY [facility] Number: Effective Repository Date:2017-09-05 08/07/2017 TIA Primary [facility] [id number] Insurance:MEDICAREPol [facility] POINT OF VIEW icy Number: Jl [facility] [place] [id number] [address]Xvx: (330) Date:[address] () 760379OPKQ CODE SG414SBSQHWRITRIPOLI, [place] [address]MZ: 08/07/2017 Secondary [facility] Insurance:ENTER NAME [facility] Repository Number: [id number] Date:MUTUAL OF [place] JAKYMARIA PARH[place] HEALTHMeme [place] [address]ZD: 08/07/2017 Tertiary [facility] Insurance:MEDICAID [facility] OHIOPolicy Number: Repository [id number] Date:2016-02-24 - 4724-39-13LV [address] [place] [address]ZI: 07/25/2017 TIA L Primary TIA L Red [id number] Insurance:MEDICARE [facility]: Community [place] PART A BPolicy [id number] Hospital BERNARDA LEVI, Number: Repository k[place] [id number]: [id number] [phone] Date:2017-07-25 (HP) 07/25/2017 Secondary TIA L [place] Insurance:MUTUAL OF [facility]: [facility] Number: [id number] Hospital [id number] Repository Date:9710-02-32WYDSLS OF [place] JAKYFORT SILL [place] [address]CE: 07/25/2017 Tertiary TIA L [place] [facility]: [facility] icy Number: [id number] Hospital [id number] Repository Date:2017-07-25 07/25/2017 Tertiary NOT GIVENUNK Red Insurance:SELF PAY [facility] Number: Effective Repository Date:2017-07-25 06/12/2017 TIA L Primary TIA L [place] [id number] Insurance:MEDICARE [facility]: Community [place] PART A [facility] [id number] Hospital MOJGAN LEVI, Number: Repository k[place] [id number]: [id number] [phone] Date:2017-06-12 (HP) 06/12/2017 Secondary TIA L Red Insurance:MUTUAL OF [facility]: [facility] Number: [id number] Hospital [id number] Repository Date:9035-87-49UGWKIK OF [place] STARKEYDOROTHEA DIX [place], [place] [address]IM: 06/12/2017 Tertiary TIA L [place] Insurance:[facility]: [facility] Number: [id number] Hospital [id number] Repository Date:2017-06-12 06/12/2017 Tertiary NOT [facility] [place] Insurance:SELF PAY [facility] Number: Effective Repository Date:2017-06-12 05/17/2017 TIA Primary [facility] [id number] Insurance:MEDICAREPol [facility] POINT OF VIEW icy Number: Repository [facility] [place], [place] [id number] [address]Rrb: (330) Date:[address] (HP) 065131LQIR CODE AO247AAXTZSTPTRIPOLI[place] [address]PE: 05/17/2017 Secondary [facility] Insurance:ENTER NAME [facility] Repository Number: [id number] Date:MUTUAL OF [place], [place] [address]PG: 05/17/2017 Tertiary [facility] Insurance:MEDICAID [facility] Number: Repository [id number] Date:2016-02-24 - 6257-53-94W[address]FRE[place] [address]CC:
== END ==
PROVIDERS: Family Provider Nurse Practitioner; PCP Nurse Practitioner; Visit Provider Nurse Practitioner
DX: Z78.0 Asymptomatic menopausal state (principal)
CPT/HCPCS: 77080

== ENCOUNTER → 2018-05-18 11:03 | Outpatient (CLI) | payer MEDICARE, OTHER, MEDICAID, SELFPAY ==
[2018-05-18 11:52] LABS: Absolute Lymphocyte Count 1.03 X10^3/ul (0.83-4.51); Basophil# 0.04 X10^3/uL; Basophil% 0.6 % (0-1); Eosinophil# 0.34 X10^3/uL; Eosinophils% 4.8 % (0-5); Hematocrit 36.5 % (37-47); Hemoglobin 11.4 g/dl (12.0-15.0); Lymphocyte # 1.03 X10^3/ul (4.0); Lymphocyte % 14.6 % (19-41); Mean Corp Hgb Conc 31.2 g/gl (32-36); Mean Corpuscular Hgb 27.1 pg (27.0-32.0); Mean Corpuscular Volume 86.9 fL (81-99); Mean Platelet Vol. 9.7 fl (6.2-12.0); Monocyte# 0.64 X10^3/uL; Monocyte% 9.1 % (0-10); Neutrophil # 5.01 X10^3/uL (2.7-7.7); Neutrophil % 70.8 % (47-70); Platelet Count 183 K/mm3 (150-450); RBC Distribution Width CV 15.2 % (11.6-14.6); RBC Distribution Width SD 48.6 fl (35.1-43.9); White Blood Count 7.1 K/mm3 (4.4-11.0)
[2018-05-18 11:59] LABS: POSITIVE COUNT NO; POSITIVE DIFFERENTIAL NO; POSITIVE MORPHOLOGY NO
[2018-05-18 12:19] LABS: Hemoglobin A1c 6.5 % (4.2-6.3)
[2018-05-18 12:30] LABS: ALB/GLOB Ratio 0.6 RATIO (0.9-2.4); AST(SGOT) 12 U/L (15-37); Alanine Aminotransfer ALT/SGPT 10 U/L (13-56); Albumin, Serum 2.5 g/dL (3.2-5.0); Alkaline Phosphatase 56 U/L (45-117); Anion Gap 9 (5-15); BUN 19 mg/dL (7-18); BUN/Creat Ratio 19.6 RATIO (10-20); Calcium,Total 8.5 mg/dL (8.5-10.1); Chloride 107 mmol/L (98-107); Cholesterol 161 mg/dL (200); Creatinine, Serum 0.97 mg/dL (0.55-1.02); EST Glomerular Filtration Rate 59 mL/min (>60); Est Glom Filt Rate - Afr Amer 72 mL/min (>60); Glucose 139 mg/dL (74-106); High Density Lipoprotein 31 mg/dL; Potassium 4.3 mmol/L (3.5-5.1); Protein, Total 6.5 g/dL (6.4-8.2); Sodium Level 140 mmol/L (136-145); Thyroid Stim Hormone (TSH) 1.99 uIU/mL (0.358-3.74); Triglycerides 150 mg/dL; Very Low Density Lipoprotein 30 mg/dL (5-40)
== END ==
PROVIDERS: Family Provider Nurse Practitioner; PCP Nurse Practitioner; Referring Provider Internal Medicine Endocrinology, Diabetes & Metabolism; Visit Provider Internal Medicine Endocrinology, Diabetes & Metabolism
DX: M05.79 Rheumatoid arthritis with rheumatoid factor of multiple sites without organ or systems involvement (principal); M79.7 Fibromyalgia; M15.9 Polyosteoarthritis, unspecified; K76.0 Fatty (change of) liver, not elsewhere classified; M50.30 Other cervical disc degeneration, unspecified cervical region; M47.892 Other spondylosis, cervical region; E11.65 Type 2 diabetes mellitus with hyperglycemia; Z79.899 Other long term (current) drug therapy
CPT/HCPCS: 36415; 80053; 80061; 83036; 84443; 85025

== ENCOUNTER → 2018-08-13 09:16 | Outpatient (CLI) | payer MEDICARE, OTHER, MEDICAID, SELFPAY ==
[2018-08-13 10:21] LABS: Absolute Neutrophil Count 4.6 X10^3/uL (2.0-7.7); Basophil# 0.03 X10^3/uL; Basophil% 0.4 % (0-1); Eosinophil# 0.47 X10^3/uL; Eosinophils% 6.7 % (0-5); Hematocrit 42.2 % (37-47); Hemoglobin 13.2 g/dl (12.0-15.0); Lymphocyte % 18.4 % (19-41); Mean Corp Hgb Conc 31.3 g/gl (32-36); Mean Corpuscular Hgb 26.1 pg (27.0-32.0); Mean Corpuscular Volume 83.6 fL (81-99); Mean Platelet Vol. 9.8 fl (6.2-12.0); Monocyte# 0.69 X10^3/uL; Monocyte% 9.8 % (0-10); Neutrophil # 4.55 X10^3/uL (2.7-7.7); Neutrophil % 64.6 % (47-70); Platelet Count 212 K/mm3 (150-450); RBC Distribution Width CV 14.4 % (11.6-14.6); RBC Distribution Width SD 43.8 fl (35.1-43.9); Red Blood Count 5.05 M/mm3 (4.2-5.4); White Blood Count 7.1 K/mm3 (4.4-11.0)
[2018-08-13 10:22] LABS: POSITIVE COUNT NO; POSITIVE DIFFERENTIAL NO; POSITIVE MORPHOLOGY NO
[2018-08-13 10:49] LABS: Hemoglobin A1c 6.4 % (4.2-6.3)
[2018-08-13 10:58] LABS: ALB/GLOB Ratio 0.8 RATIO (0.9-2.4); AST(SGOT) 14 U/L (15-37); Alanine Aminotransfer ALT/SGPT 15 U/L (13-56); Alkaline Phosphatase 64 U/L (45-117); Anion Gap 9 (5-15); BUN 20 mg/dL (7-18); Calcium,Total 9.1 mg/dL (8.5-10.1); Chloride 104 mmol/L (98-107); Cholesterol 163 mg/dL (200); Creatinine, Serum 1.05 mg/dL (0.55-1.02); EST Glomerular Filtration Rate 54 mL/min (>60); Est Glom Filt Rate - Afr Amer 66 mL/min (>60); Glucose 127 mg/dL (74-106); High Density Lipoprotein 31 mg/dL; Potassium 4.4 mmol/L (3.5-5.1); Sodium Level 139 mmol/L (136-145); T4 Free Direct 1.29 ng/dL (0.76-1.46); Thyroid Stim Hormone (TSH) 1.76 uIU/mL (0.358-3.74); Triglycerides 241 mg/dL; Very Low Density Lipoprotein 48 mg/dL (5-40)
== END ==
PROVIDERS: Family Provider Nurse Practitioner; PCP Nurse Practitioner; Referring Provider Internal Medicine Endocrinology, Diabetes & Metabolism; Visit Provider Internal Medicine Endocrinology, Diabetes & Metabolism
DX: I00 Rheumatic fever without heart involvement (principal); M79.7 Fibromyalgia; M25.561 Pain in right knee; M17.0 Bilateral primary osteoarthritis of knee; K76.0 Fatty (change of) liver, not elsewhere classified; M50.30 Other cervical disc degeneration, unspecified cervical region; M47.892 Other spondylosis, cervical region; E11.69 Type 2 diabetes mellitus with other specified complication; I25.10 Atherosclerotic heart disease of native coronary artery without angina pectoris; Z79.899 Other long term (current) drug therapy
CPT/HCPCS: 36415; 80053; 80061; 83036; 84439; 84443; 85025

== ENCOUNTER → 2018-11-08 09:21 | Outpatient (CLI) | payer MEDICARE, OTHER, MEDICAID, SELFPAY ==
[2018-11-08 10:27] LABS: Absolute Lymphocyte Count 0.99 X10^3/uL (0.83-4.51); Absolute Neutrophil Count 4.6 X10^3/uL (2.0-7.7); Basophil# 0.08 X10^3/uL; Basophil% 1.2 % (0-1); Eosinophil# 0.65 X10^3/uL; Eosinophils% 9.4 % (0-5); Hematocrit 37.4 % (37-47); Hemoglobin 10.9 g/dL (12.0-15.0); Lymphocyte # 0.99 X10^3/ul (4.0); Lymphocyte % 14.2 % (19-41); Mean Corp Hgb Conc 29.1 g/dL (32-36); Mean Corpuscular Hgb 24.8 pg (27.0-32.0); Mean Corpuscular Volume 85.2 fL (81-99); Mean Platelet Vol. 9.3 fl (6.2-12.0); Monocyte% 8.6 % (0-10); NRBC Flagged by Analyzer 0 % (0-5); Neutrophil % 66.2 % (47-70); Platelet Count 198 K/mm3 (150-450); RBC Distribution Width CV 15.8 % (11.6-14.6); RBC Distribution Width SD 48.8 fl (35.1-43.9); Red Blood Count 4.39 M/mm3 (4.2-5.4)
[2018-11-08 11:18] LABS: ALB/GLOB Ratio 0.7 RATIO (0.9-2.4); AST(SGOT) 10 U/L (15-37); Alanine Aminotransfer ALT/SGPT 10 U/L (13-56); Albumin, Serum 2.6 g/dL (3.2-5.0); Alkaline Phosphatase 71 U/L (45-117); Anion Gap 6 (5-15); BUN 23 mg/dL (7-18); BUN/Creat Ratio 21.5 RATIO (10-20); Calcium,Total 8.8 mg/dL (8.5-10.1); Chloride 107 mmol/L (98-107); Creatinine, Serum 1.07 mg/dL (0.55-1.02); EST Glomerular Filtration Rate 53 mL/min (>60); Est Glom Filt Rate - Afr Amer 64 mL/min (>60); Ferritin 192 ng/mL (8-252); Globulin 3.8 g/dL (2.2-4.2); Glucose 178 mg/dL (74-106); Iron 28 ug/dL (50-170); Iron Binding Capacity,Total 268 ug/dL (250-450); PERCENT IRON SATURATION 10.4 % (15.0-55.0); Potassium 4.6 mmol/L (3.5-5.1); Protein, Total 6.4 g/dL (6.4-8.2); Sodium Level 140 mmol/L (136-145)
== END ==
PROVIDERS: Family Provider Nurse Practitioner; PCP Nurse Practitioner; Referring Provider Internal Medicine Rheumatology; Visit Provider Internal Medicine Rheumatology
DX: M05.79 Rheumatoid arthritis with rheumatoid factor of multiple sites without organ or systems involvement (principal); M79.7 Fibromyalgia; M17.0 Bilateral primary osteoarthritis of knee; K76.0 Fatty (change of) liver, not elsewhere classified; M50.30 Other cervical disc degeneration, unspecified cervical region; M47.892 Other spondylosis, cervical region; E11.69 Type 2 diabetes mellitus with other specified complication; I25.10 Atherosclerotic heart disease of native coronary artery without angina pectoris; D64.9 Anemia, unspecified; Z79.899 Other long term (current) drug therapy
CPT/HCPCS: 36415; 80053; 82728; 83540; 83550; 85025

== ENCOUNTER → 2019-01-02 10:36 | Outpatient (CLI) | payer MEDICARE, OTHER, MEDICAID, SELFPAY ==
[2019-01-02 11:38] LABS: Hemoglobin A1c 6.6 % (4.2-6.3)
[2019-01-02 12:04] LABS: ALB/GLOB Ratio 0.8 RATIO (0.9-2.4); AST(SGOT) 12 U/L (15-37); Alanine Aminotransfer ALT/SGPT 12 U/L (13-56); Albumin, Serum 2.8 g/dL (3.2-5.0); Alkaline Phosphatase 72 U/L (45-117); Anion Gap 5 (5-15); BUN 19 mg/dL (7-18); BUN/Creat Ratio 17.9 RATIO (10-20); Chloride 108 mmol/L (98-107); Creatinine, Serum 1.06 mg/dL (0.55-1.02); EST Glomerular Filtration Rate 54 mL/min (>60); Est Glom Filt Rate - Afr Amer 65 mL/min (>60); Globulin 3.6 g/dL (2.2-4.2); Glucose 164 mg/dL (74-106); Potassium 4.2 mmol/L (3.5-5.1); Protein, Total 6.4 g/dL (6.4-8.2); Sodium Level 140 mmol/L (136-145); T4 Free Direct 1.24 ng/dL (0.76-1.46); Thyroid Stim Hormone (TSH) 1.35 uIU/mL (0.358-3.74)
== END ==
PROVIDERS: Family Provider Nurse Practitioner; PCP Nurse Practitioner; Referring Provider Internal Medicine Endocrinology, Diabetes & Metabolism; Visit Provider Internal Medicine Endocrinology, Diabetes & Metabolism
DX: E03.9 Hypothyroidism, unspecified (principal); E11.65 Type 2 diabetes mellitus with hyperglycemia
CPT/HCPCS: 36415; 80053; 83036; 84439; 84443

== ENCOUNTER → 2019-01-23 15:53 | Outpatient (CLI) | payer MEDICARE, OTHER, MEDICAID, SELFPAY ==
[2019-01-23 17:19] LABS: Absolute Lymphocyte Count 1.38 X10^3/uL (0.83-4.51); Basophil# 0.06 X10^3/uL; Basophil% 0.9 % (0-1); Eosinophils% 6.1 % (0-5); Hematocrit 47.8 % (37-47); Hemoglobin 14.3 g/dL (12.0-15.0); Lymphocyte # 1.38 X10^3/ul (4.0); Mean Corp Hgb Conc 29.9 g/dL (32-36); Mean Corpuscular Volume 86.8 fL (81-99); Mean Platelet Vol. 10.4 fl (6.2-12.0); Monocyte# 0.64 X10^3/uL; Monocyte% 9.8 % (0-10); NRBC Flagged by Analyzer 0 % (0-5); Neutrophil # 4.04 X10^3/uL (2.7-7.7); Neutrophil % 61.6 % (47-70); Platelet Count 160 K/mm3 (150-450); RBC Distribution Width CV 15.9 % (11.6-14.6); RBC Distribution Width SD 50.7 fl (35.1-43.9); Red Blood Count 5.51 M/mm3 (4.2-5.4); White Blood Count 6.6 K/mm3 (4.4-11.0)
[2019-01-23 17:43] LABS: BUN 20 mg/dL (7-18); Creatinine, Serum 0.91 mg/dL (0.55-1.02); EST Glomerular Filtration Rate 64 mL/min (>60); Est Glom Filt Rate - Afr Amer 77 mL/min (>60)
== END ==
PROVIDERS: Family Provider Nurse Practitioner; PCP Nurse Practitioner
DX: I25.10 Atherosclerotic heart disease of native coronary artery without angina pectoris (principal)
CPT/HCPCS: 36415; 82565; 84520; 85025

== ENCOUNTER → 2019-02-10 09:51 | Outpatient (CLI) | payer MEDICARE, OTHER, MEDICAID, SELFPAY ==
[2019-02-10 10:57] LABS: Absolute Lymphocyte Count 0.97 X10^3/uL (0.83-4.51); Absolute Neutrophil Count 4.8 X10^3/uL (2.0-7.7); Basophil# 0.05 X10^3/uL; Basophil% 0.7 % (0-1); Eosinophil# 0.36 X10^3/uL; Eosinophils% 5.3 % (0-5); Hematocrit 39.2 % (37-47); Hemoglobin 11.7 g/dL (12.0-15.0); Lymphocyte # 0.97 X10^3/ul (4.0); Lymphocyte % 14.4 % (19-41); Mean Corp Hgb Conc 29.8 g/dL (32-36); Mean Corpuscular Hgb 25.8 pg (27.0-32.0); Mean Corpuscular Volume 86.5 fL (81-99); Mean Platelet Vol. 9.5 fl (6.2-12.0); Monocyte# 0.51 X10^3/uL; Monocyte% 7.6 % (0-10); NRBC Flagged by Analyzer 0 % (0-5); Neutrophil # 4.81 X10^3/uL (2.7-7.7); Neutrophil % 71.6 % (47-70); Platelet Count 178 K/mm3 (150-450); RBC Distribution Width CV 15.7 % (11.6-14.6); RBC Distribution Width SD 49.6 fl (35.1-43.9); Red Blood Count 4.53 M/mm3 (4.2-5.4); White Blood Count 6.7 K/mm3 (4.4-11.0)
[2019-02-10 11:23] LABS: ALB/GLOB Ratio 0.7 RATIO (0.9-2.4); AST(SGOT) 9 U/L (15-37); Alanine Aminotransfer ALT/SGPT 10 U/L (13-56); Albumin, Serum 2.6 g/dL (3.2-5.0); Alkaline Phosphatase 74 U/L (45-117); Anion Gap 7 (5-15); BUN 15 mg/dL (7-18); BUN/Creat Ratio 16.6 RATIO (10-20); Calcium,Total 8.7 mg/dL (8.5-10.1); Chloride 109 mmol/L (98-107); EST Glomerular Filtration Rate 64 mL/min (>60); Est Glom Filt Rate - Afr Amer 78 mL/min (>60); Globulin 3.5 g/dL (2.2-4.2); Glucose 199 mg/dL (74-106); Potassium 4.3 mmol/L (3.5-5.1); Protein, Total 6.1 g/dL (6.4-8.2); Sodium Level 141 mmol/L (136-145)
== END ==
PROVIDERS: Family Provider Nurse Practitioner; PCP Nurse Practitioner; Referring Provider Internal Medicine Rheumatology; Visit Provider Internal Medicine Rheumatology
DX: M05.79 Rheumatoid arthritis with rheumatoid factor of multiple sites without organ or systems involvement (principal); M79.7 Fibromyalgia; M17.0 Bilateral primary osteoarthritis of knee; K76.0 Fatty (change of) liver, not elsewhere classified; M50.30 Other cervical disc degeneration, unspecified cervical region; M47.892 Other spondylosis, cervical region; E11.69 Type 2 diabetes mellitus with other specified complication
CPT/HCPCS: 36415; 80053; 85025

== ENCOUNTER 2019-02-20 21:50 | Emergency (ER) | payer MEDICARE, OTHER, MEDICAID, SELFPAY ==
[2019-02-20 21:52] VITALS: BP 149/96; PULSE 79; RESP 18; TEMP 36.7; O2SAT 94; BMI 35.0
--- NOTE | 2019-02-20 22:06 | CT_ITS ---
STUDY: CT BRAIN WITHOUT CONTRAST REASON FOR EXAM: Female, 73 years old. Injury RADIATION DOSAGE (If Supplied By Facility): CTDIvol = ( 44.99 ) mGy, DLP = ( 812.98 ) mGycm TECHNIQUE: Transaxial CT imaging of the brain was performed without administration of intravenous contrast material. Individualized dose optimization techniques were used for this CT. COMPARISON: March 04, 2015 FINDINGS: Normal soft tissue structures. Normal calvarium. Prominent size ventricles and extra-axial spaces with atrophy. Bilateral white matter microangiopathic ischemic changes of the cerebral hemispheres. Probable old lacunar infarct in the left basal ganglia. Normal thalami. Normal brainstem. Normal cerebellum. There is no intracranial hemorrhage. There are no findings of an acute ischemic infarction. Normal visualized paranasal sinuses. CT/Brain/Head without Contrast IMPRESSION: Atrophy and age-related changes of the brain. Electronically Signed: Oliver Pete DO at 22:34 EST Tel [phone], Service support ,
[2019-02-20] MEDS: Acetaminophen 500 MG Tablet 1000 MG PO (22:23)
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
== END 2019-02-20 22:51 | disposition home or self-care (01) ==
LOC: ED 22:37
PROVIDERS: Emergency Provider Emergency Medicine; Family Provider Nurse Practitioner; PCP Nurse Practitioner
DX: S00.03XA Contusion of scalp, initial encounter (principal); S40.011A Contusion of right shoulder, initial encounter; S70.01XA Contusion of right hip, initial encounter; W05.1XXA Fall from non-moving nonmotorized scooter, initial encounter; Y93.I9 Activity, other involving external motion; I10 Essential (primary) hypertension; E11.9 Type 2 diabetes mellitus without complications; Z79.02 Long term (current) use of antithrombotics/antiplatelets; Z79.82 Long term (current) use of aspirin; Z79.84 Long term (current) use of oral hypoglycemic drugs; Z79.899 Other long term (current) drug therapy; Z87.891 Personal history of nicotine dependence
CPT/HCPCS: 70450; 99282

== ENCOUNTER 2019-02-23 20:52 | Observation (INO) | payer MEDICARE, MEDICAID, OTHER, SELFPAY ==
[2019-02-23 20:53] VITALS: BP 144/71; PULSE 85; RESP 16; TEMP 36.6; O2SAT 92; BMI 33.3
--- NOTE | 2019-02-23 21:10 | CT_ITS ---
STUDY: CT BRAIN WITHOUT CONTRAST REASON FOR EXAM: Female, 73 years old. Confusion RADIATION DOSAGE (If Supplied By Facility): CTDIvol = ( 44.99 ) mGy, DLP = ( 762.36 ) mGycm TECHNIQUE: Transaxial CT imaging of the brain was performed without administration of intravenous contrast material. Individualized dose optimization techniques were used for this CT. COMPARISON: February 20, 2019 FINDINGS: Normal soft tissue structures. Normal calvarium. Prominent size ventricles and extra-axial spaces with mild atrophy. Stable white matter microangiopathic ischemic changes of the cerebral hemispheres. Normal basal ganglia and thalami. Normal brainstem. Normal cerebellum. There is no intracranial hemorrhage. There are no findings of an acute ischemic infarction. Normal visualized paranasal sinuses. CT/Brain/Head without Contrast IMPRESSION: No significant interval changes of the brain. Electronically Signed: Oliver Pete DO at 22:52 EST Tel [phone], Service support ,
--- NOTE | 2019-02-23 21:10 | EKG12_ITS ---
Test Reason : CONFUSION Blood Pressure : / mmHG Vent. Rate : 079 BPM Atrial Rate : 079 BPM P-R Int : 168 ms QRS Dur : 084 ms QT Int : 398 ms P-R-T Axes : 044 023 053 degrees QTc Int : 456 ms Normal sinus rhythm Normal ECG Confirmed by TARIQ SÁNCHEZ MD ([id number]), graphic editor JIM LEMA ([id number]) on 02/24/2019 2:55:12 PM Referred By: FLORENTIN Confirmed By:TARIQ SÁNCHEZ MD
--- NOTE | 2019-02-23 21:12 | RAD_ITS ---
STUDY: X-RAY - CERVICAL SPINE REASON FOR EXAM: Female, 73 years old. Fall TECHNIQUE: 4 view(s) of the cervical spine were obtained. COMPARISON: None FINDINGS: Normal anterior atlantoaxial articulation. Normal odontoid process. Reversed cervical lordosis. Degenerative spurring at the lower cervical vertebral bodies and endplates. Narrowing disc space heights. Limited visualization of the cervicothoracic junction. The soft tissue structures are unremarkable. RAD/Cerv Spine 2 or 3 Views IMPRESSION: Degenerative changes of the visualized cervical spine. Electronically Signed: Oliver Pete DO at 23:17 EST Tel [phone], Service support ,
[2019-02-23] MEDS: 0.9% Normal Saline 1,000 ML 150 ML IV (21:45)
[2019-02-23 21:49] LABS: Absolute Lymphocyte Count 0.94 X10^3/uL (0.83-4.51); Absolute Neutrophil Count 10.5 X10^3/uL (2.0-7.7); Basophil# 0.07 X10^3/uL; Basophil% 0.5 % (0-1); Eosinophil# 0.29 X10^3/uL; Eosinophils% 2.3 % (0-5); Hematocrit 41.7 % (37-47); Hemoglobin 12.7 g/dL (12.0-15.0); Lymphocyte # 0.94 X10^3/ul (4.0); Lymphocyte % 7.4 % (19-41); Mean Corp Hgb Conc 30.5 g/dL (32-36); Mean Corpuscular Hgb 26.5 pg (27.0-32.0); Mean Corpuscular Volume 87.1 fL (81-99); Mean Platelet Vol. 10.1 fl (6.2-12.0); Monocyte# 0.92 X10^3/uL; Monocyte% 7.2 % (0-10); NRBC Flagged by Analyzer 0 % (0-5); Neutrophil # 10.46 X10^3/uL (2.7-7.7); Neutrophil % 82.1 % (47-70); Platelet Count 134 K/mm3 (150-450); RBC Distribution Width CV 14.8 % (11.6-14.6); RBC Distribution Width SD 47.2 fl (35.1-43.9); Red Blood Count 4.79 M/mm3 (4.2-5.4); White Blood Count 12.7 K/mm3 (4.4-11.0)
[2019-02-23 22:19] LABS: Anion Gap 6 (5-15); BUN 29 mg/dL (7-18); Calcium,Total 9.2 mg/dL (8.5-10.1); Chloride 110 mmol/L (98-107); Creatinine, Serum 1.21 mg/dL (0.55-1.02); EST Glomerular Filtration Rate 46 mL/min (>60); Est Glom Filt Rate - Afr Amer 56 mL/min (>60); Estimated Creatinine Clearance 36.15 ml/min; Glucose 173 mg/dL (74-106); Potassium 5.6 mmol/L (3.5-5.1); Sodium Level 140 mmol/L (136-145)
[2019-02-23 22:24] LABS: Bacteria 0 SEEN /hpf (None Seen); Mucous, Urine 0 SEEN /hpf (<or=2+)
[2019-02-23 22:44] LABS: Color, Urine Yellow (Yellow); Glucose, Dipstick Normal (Normal); Ketone-Dipstick 5 mg/dl (Negative); Leukocyte Esterase-Dipstick 25 /ul (Negative); Nitrite-Dipstick Negative (Negative); Occult Blood-Urine 10 /ul (Negative); Protein-Dipstick 15 mg/dl (Negative); Urine Bilirubin Dipstick 6 mg/dL (Negative); Urine Clarity Clear (Clear); Urine Urobilinogen Normal (Normal)
[2019-02-23 22:48] LABS: Red Blood Cells-Urine 0-5 SEEN /hpf (0-5); Squamous Epithelial Cells - UA 0-5 SEEN /hpf (5-10)
[2019-02-23 22:49] LABS: White Blood Cells 0-5 SEEN /hpf (0-5)
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
[2019-02-23 23:22] LABS: Amphetamine Urine VISTA NEGATIVE (<1000 ng/mL); Barbiturate Urine VISTA NEGATIVE (< 200 ng/mL); Benzodiazepine Urine VISTA NEGATIVE (< 200 ng/mL); Cocaine Urine VISTA NEGATIVE (< 300 ng/mL); Ecstacy Urine VISTA NEGATIVE (< 500 ng/mL); Methadone Urine VISTA NEGATIVE (< 300 ng/mL); PCP Urine VISTA NEGATIVE (< 25 ng/mL); THC Urine VISTA NEGATIVE (< 50 ng/mL); Vista UDS pH Range 5
[2019-02-23 23:34] VITALS: BP 151/58; PULSE 80; RESP 15; O2SAT 93
[2019-02-24 00:32] VITALS: BMI 34.2
[2019-02-24 00:44] VITALS: BP 141/72; PULSE 81; RESP 18; TEMP 36.6; O2SAT 96
[2019-02-24 01:58] LABS: Thyroid Stim Hormone (TSH) 1.71 uIU/mL (0.358-3.74)
[2019-02-24] MEDS: oxyCODONE 5 MG Tablet PO ×2 (02:53→10:54)
[2019-02-24] MEDS: 0.45% Normal Saline 1,000 ML 100 ML IV (02:55)
[2019-02-24 05:00] VITALS: BP 152/62; PULSE 70; RESP 18; TEMP 36.5; O2SAT 95
[2019-02-24] MEDS: Nystatin Powder 15gm Bottle 1 APPLIC TOPICAL (05:36)
[2019-02-24] MEDS: Levothyroxine 100 MCG Tablet PO (05:36)
[2019-02-24 05:45] LABS: Absolute Lymphocyte Count 1.37 X10^3/uL (0.83-4.51); Basophil# 0.06 X10^3/uL; Basophil% 0.7 % (0-1); Eosinophil# 0.34 X10^3/uL; Eosinophils% 3.9 % (0-5); Hematocrit 35.9 % (37-47); Hemoglobin 11.1 g/dL (12.0-15.0); Lymphocyte # 1.37 X10^3/ul (4.0); Lymphocyte % 15.9 % (19-41); Mean Corp Hgb Conc 30.9 g/dL (32-36); Mean Corpuscular Hgb 26.8 pg (27.0-32.0); Mean Corpuscular Volume 86.7 fL (81-99); Mean Platelet Vol. 9.9 fl (6.2-12.0); Monocyte# 0.82 X10^3/uL; Monocyte% 9.5 % (0-10); NRBC Flagged by Analyzer 0 % (0-5); Neutrophil % 69.7 % (47-70); Platelet Count 112 K/mm3 (150-450); RBC Distribution Width SD 47.7 fl (35.1-43.9); Red Blood Count 4.14 M/mm3 (4.2-5.4); White Blood Count 8.6 K/mm3 (4.4-11.0)
[2019-02-24 05:58] LABS: Anion Gap 5 (5-15); BUN 22 mg/dL (7-18); BUN/Creat Ratio 24.9 RATIO (10-20); Calcium,Total 8.6 mg/dL (8.5-10.1); Chloride 108 mmol/L (98-107); Creatinine, Serum 0.88 mg/dL (0.55-1.02); EST Glomerular Filtration Rate 66 mL/min (>60); Est Glom Filt Rate - Afr Amer 80 mL/min (>60); Glucose 142 mg/dL (74-106); Potassium 4.7 mmol/L (3.5-5.1); Sodium Level 138 mmol/L (136-145)
--- NOTE | 2019-02-24 06:54 | NURSING ---
0645 pts BG is 88, gave pt orange juice and crackers.
--- NOTE | 2019-02-24 07:56 | PCM.PN.HOSP ---
Patient Problems: Active and Suspected Problems Encephalopathy acute (Acute) Vitals/I&O's: Vital Signs Temp Pulse Resp BP Pulse Ox 97.7 F L 70 18 152/62 H 95 02/24/19 05:00 02/24/19 05:00 02/24/19 05:00 02/24/19 05:00 02/24/19 05:00 Oxygen Flow Rate (L/min) 2 Oxygen Delivery Method Nasal Cannula Weight: 199 lb 4.766 oz Body Mass Index (BMI) 34.2 Intake and Output for Last 24 Hours 02/22/19 02/23/19 02/24/19 23:59 23:59 23:59 Intake Total 840 / 840 Balance 840 / 840 Laboratory Results 02/23/19 21:40: WBC 12.7 H, RBC 4.79, Hgb 12.7, Hct 41.7, MCV 87.1, MCH 26.5 L, MCHC 30.5 L, RDW Std Deviation 47.2 H, RDW Coeff of Kavon 14.8 H, Plt Count 134 L, MPV 10.1, Immature Gran % (Auto) 0.500, Neut % (Auto) 82.1 H, Lymph % (Auto) 7.4 L, [place] % (Auto) 7.2, Eos % (Auto) 2.3, Baso % (Auto) 0.5, Absolute Neuts (auto) 10.5 H, Absolute Lymphs (auto) 0.94, Nucleated RBC % 0 02/23/19 21:40: Sodium 140, Potassium 5.6 H, Chloride 110 H, Carbon Dioxide 24.0, Anion Gap 6, BUN 29 H, Creatinine 1.21 H, Estim Creat Clear Calc 36.15, Est GFR (MDRD) Af Amer 56 L, Est GFR (MDRD) Non-Af 46 L, BUN/Creatinine Ratio 24.0 H, Glucose 173 H, Calcium 9.2, Troponin I < 0.015 02/23/19 21:40: Ethyl Alcohol 6.0 02/23/19 21:40: TSH 1.71 02/23/19 21:40: Vitamin B12 Pending 02/23/19 22:15: Urine Color Yellow, Urine Clarity Clear, Urine pH 5.0, Ur Specific [place] 1.020, Urine Protein 15 H, Urine Glucose (UA) Normal, Urine Ketones 5 H, Urine Occult Blood 10 H, Urine Nitrite Negative, Urine Bilirubin 6 H, Urine Urobilinogen Normal, Ur Leukocyte Esterase 25 H, Urine RBC 0-5 SEEN, Urine WBC 0-5 SEEN, Ur Squamous Epith Cells 0-5 SEEN, Urine Bacteria 0 SEEN, Urine Mucus 0 SEEN 02/23/19 22:15: Urine Opiates Screen POSITIVE H, Urine Methadone Screen NEGATIVE, Ur Barbiturates Screen NEGATIVE, Ur Phencyclidine Scrn NEGATIVE, Ur Amphetamines Screen NEGATIVE, U Methamphetamin-MDMA NEGATIVE, U Benzodiazepines Scrn NEGATIVE, Urine Cocaine Screen NEGATIVE, U Cannabinoids Screen NEGATIVE, Ur Drug Screen Comment 02/24/19 05:20: WBC 8.6, RBC 4.14 L, Hgb 11.1 L, Hct 35.9 L, MCV 86.7, MCH 26.8 L, MCHC 30.9 L, RDW Std Deviation 47.7 H, RDW Coeff of Kavon 15.0 H, Plt Count 112 L, MPV 9.9, Immature Gran % (Auto) 0.300, Neut % (Auto) 69.7, Lymph % (Auto) 15.9 L, [place] % (Auto) 9.5, Eos % (Auto) 3.9, Baso % (Auto) 0.7, Absolute Neuts (auto) 6.0, Absolute Lymphs (auto) 1.37, Nucleated RBC % 0 02/24/19 05:20: Sodium 138, Potassium 4.7, Chloride 108 H, Carbon Dioxide 25.0, Anion Gap 5, BUN 22 H, Creatinine 0.88, Estim Creat Clear Calc 47.70, Est GFR (MDRD) Af Amer 80, Est GFR (MDRD) Non-Af 66, BUN/Creatinine Ratio 24.9 H, Glucose 142 H, Calcium 8.6 Current Medications Amlodipine Besylate (Norvasc) 5 mg PO DAILY [facility] Aspirin (Ecotrin) 81 mg PO DAILY@0800 [facility] Cholecalciferol (Vitamin D) 1,000 unit PO DAILY [facility] Clopidogrel Bisulfate (Plavix) 75 mg PO DAILY [facility] Dextrose (D50w Syringe) 0 gm IV X1 PRN; Protocol PRN Reason: Hypoglycemia Duloxetine HCl (Cymbalta) 60 mg PO DAILY [facility] Enoxaparin Sodium (Lovenox) 40 mg SC DAILY [facility] Fluoxetine HCl (Prozac) 40 mg PO DAILY [facility] Fluticasone Propionate (Flonase Nasal [place]) 1 spray NASAL DAILY [facility] Glucagon () 1 mg IM .X1 PRN PRN Reason: Hypoglycemia Sodium Chloride () 1,000 mls @ 100 mls/hr IV .Q10H [facility] Stop: 02/24/19 12:21 Last Admin: 02/24/19 02:55 Dose: 100 mls/hr Documented by: Leflunomide (Leflunomide) 20 mg PO DAILY [facility] Levothyroxine Sodium (Synthroid) 100 mcg PO DAILY@0600 [facility] Last Admin: 02/24/19 05:36 Dose: 100 mcg Documented by: Linagliptin (Tradjenta) 5 mg PO DAILY [facility] Lisinopril (Zestril) 40 mg PO DAILY [facility] Magnesium Oxide (Mag-Ox 400) 400 mg PO TIDCM [facility] Metformin HCl (Glucophage) 1,000 mg PO BIDCM [facility] Metoprolol Succinate (Toprol Xl (Beta Carey)) 75 mg PO DAILY [facility] Nutritional Formula (Lactose Free) (Glucerna Shake) 120 ml PO TIDCM [facility] Nystatin (Mycostatin Powder) 1 applic TOPICAL TID [facility]; Protocol Last Admin: 02/24/19 05:36 Dose: 1 applicatio Documented by: Ondansetron HCl (Zofran) 4 mg IV Q8H PRN PRN PRN Reason: NAUSEA/VOMITING Oxycodone HCl (Oxyir) 5 - 10 mg PO BID PRN PRN PRN Reason: Pain Score 1-10/10 Last Admin: 02/24/19 02:53 Dose: 10 mg Documented by: Pravastatin Sodium (Pravachol) 40 mg PO QHS [facility] Pregabalin (Lyrica) 100 mg PO DAILY [facility] Pregabalin (Lyrica) 150 mg PO QHS [facility] Spironolactone (Aldactone) 25 mg PO DAILY [facility] Zolpidem Tartrate (Ambien (Generic)) 5 mg PO QHS [facility] STROKE Vital Signs/Narrative: Vital Signs Temp Pulse Resp BP Pulse Ox 02/24/19 05:00 97.7 F L 70 18 152/62 H 95 Medical Necessity - Tobacco Use Smoking Status: Former smoker Assessment/Plan All Active Problems Encephalopathy acute (Acute) Confusion (Acute) he patient is a 73 year old F with a significant history of CAD status post stent; osteoarthritis; fibromyalgia; rheumatoid arthritis; charcot disease; diabetes mellitus; hypothyroidism who presented to emergency department with confusion consistent with acute encephalopathy. Acute encephalopathy Etiology is unclear at this time. Family thinks that patient may be overmedicating herself but patient denies. While at the hospital we will continue patient on home medication as prescribed including her Percocet and Lyrica and monitor patient. Patient follows up with pain management. At the emergency department her symptoms had actually resolved but a decision was made to observe patient overnight. Get vitamin B12 and TSH level. Electrolytes show a normal sodium with mild hyperkalemia and hyperchloremia. Hyperkalemia On presentation her potassium was 5.6. There were no acute EKG changes. Received normal saline hydration in the emergency department. Because of hyperchloremia we will start patient on half-normal saline. Trend BMP. CAD status post stents Aspirin and Plavix continued Fibromyalgia/osteoarthritis/rheumatoid arthritis Continue leflunomide; Lyrica and Percocet. Recent fall Cervical spine x-ray showed degenerative changes. No acute disease. Brain CT did not show any acute disease. Continue Percocet for pain Chronic wounds of second toe of right foot Wet-to-dry dressing on second toe right foot until further recommendations from wound care. Diabetes mellitus On presentation her blood glucose was within goal DPP4 inhibitor continued. Accu-Chek q. ACH S. DVT Prophylaxis Subcutaneous Lovenox Laboratory Results 02/23/19 21:40: WBC 12.7 H, RBC 4.79, Hgb 12.7, Hct 41.7, MCV 87.1, MCH 26.5 L, MCHC 30.5 L, RDW Std Deviation 47.2 H, RDW Coeff of Kavon 14.8 H, Plt Count 134 L, MPV 10.1, Immature Gran % (Auto) 0.500, Neut % (Auto) 82.1 H, Lymph % (Auto) 7.4 L, [place] % (Auto) 7.2, Eos % (Auto) 2.3, Baso % (Auto) 0.5, Absolute Neuts (auto) 10.5 H, Absolute Lymphs (auto) 0.94, Nucleated RBC % 0 02/23/19 21:40: Sodium 140, Potassium 5.6 H, Chloride 110 H, Carbon Dioxide 24.0, Anion Gap 6, BUN 29 H, Creatinine 1.21 H, Estim Creat Clear Calc 36.15, Est GFR (MDRD) Af Amer 56 L, Est GFR (MDRD) Non-Af 46 L, BUN/Creatinine Ratio 24.0 H, Glucose 173 H, Calcium 9.2, Troponin I < 0.015 02/23/19 21:40: Ethyl Alcohol 6.0 02/23/19 21:40: TSH 1.71 02/23/19 21:40: Vitamin B12 Pending 02/23/19 22:15: Urine Color Yellow, Urine Clarity Clear, Urine pH 5.0, Ur Specific [place] 1.020, Urine Protein 15 H, Urine Glucose (UA) Normal, Urine Ketones 5 H, Urine Occult Blood 10 H, Urine Nitrite Negative, Urine Bilirubin 6 H, Urine Urobilinogen Normal, Ur Leukocyte Esterase 25 H, Urine RBC 0-5 SEEN, Urine WBC 0-5 SEEN, Ur Squamous Epith Cells 0-5 SEEN, Urine Bacteria 0 SEEN, Urine Mucus 0 SEEN 02/23/19 22:15: Urine Opiates Screen POSITIVE H, Urine Methadone Screen NEGATIVE, Ur Barbiturates Screen NEGATIVE, Ur Phencyclidine Scrn NEGATIVE, Ur Amphetamines Screen NEGATIVE, U Methamphetamin-MDMA NEGATIVE, U Benzodiazepines Scrn NEGATIVE, Urine Cocaine Screen NEGATIVE, U Cannabinoids Screen NEGATIVE, Ur Drug Screen Comment 02/24/19 05:20: WBC 8.6, RBC 4.14 L, Hgb 11.1 L, Hct 35.9 L, MCV 86.7, MCH 26.8 L, MCHC 30.9 L, RDW Std Deviation 47.7 H, RDW Coeff of Kavon 15.0 H, Plt Count 112 L, MPV 9.9, Immature Gran % (Auto) 0.300, Neut % (Auto) 69.7, Lymph % (Auto) 15.9 L, [place] % (Auto) 9.5, Eos % (Auto) 3.9, Baso % (Auto) 0.7, Absolute Neuts (auto) 6.0, Absolute Lymphs (auto) 1.37, Nucleated RBC % 0 02/24/19 05:20: Sodium 138, Potassium 4.7, Chloride 108 H, Carbon Dioxide 25.0, Anion Gap 5, BUN 22 H, Creatinine 0.88, Estim Creat Clear Calc 47.70, Est GFR (MDRD) Af Amer 80, Est GFR (MDRD) Non-Af 66, BUN/Creatinine Ratio 24.9 H, Glucose 142 H, Calcium 8.6
--- NOTE | 2019-02-24 08:21 | NURSING ---
wound photo: right 2nd toe
[2019-02-24] MEDS: Fluticasone 0.05% 1 SPRAY NASAL.SRY NASAL (08:28)
[2019-02-24] MEDS: FLUoxetine 20 MG Capsule 40 MG PO (08:29)
[2019-02-24 08:30] VITALS: BP 161/101; PULSE 85
[2019-02-24] MEDS: Metoprolol(XL)Succ 25 MG Tablet 75 MG PO (08:30)
[2019-02-24] MEDS: LINAGLIPTIN 5 MG TABLET PO (08:31)
[2019-02-24] MEDS: Magnesium Oxide 400 MG Tablet PO (08:34)
[2019-02-24] MEDS: Clopidogrel Bisulfate 75 MG Tablet PO (08:34)
[2019-02-24] MEDS: Aspirin E.C. 81 MG Tablet PO (08:35)
[2019-02-24] MEDS: amLODIPine 5 MG Tablet PO ×2 (08:36→10:54)
[2019-02-24] MEDS: DULoxetine Hcl 60 MG Capsule PO (08:36)
[2019-02-24] MEDS: Leflunomide 10 MG TABLET 20 MG PO (08:36)
[2019-02-24] MEDS: Spironolactone 25 MG Tablet PO (08:37)
[2019-02-24] MEDS: Lisinopril 40 MG Tablet PO (08:38)
[2019-02-24] MEDS: metFORMIN HCl 1,000 MG Tablet 1000 MG PO (08:39)
[2019-02-24] MEDS: Pregabalin 50 MG Capsule 100 MG PO (08:43)
[2019-02-24] MEDS: Glucerna Shake 120 ML LIQUID PO (08:43)
[2019-02-24 10:15] LABS: Vitamin B12 305 pg/mL (211-911)
--- NOTE | 2019-02-24 10:29 | DCINST_ITS ---
- Discharge Diagnoses Current Active Problems: Current Active and Chronic Problems Encephalopathy acute (Acute) You will use the following diet at home:: Calorie/Carbohydrate Controlled (specify 1200, 1400, etc) - 1600 ADA diet, Cardiac Your food should be the consistency of: Regular Discharge Activity: May Not Drive Weight Bearing Status: Weight bearing as tolerated Call your doctor if you observe: Fever of 101 or Higher, Numbness or Tingling, Inability to urinate, Inability to have a bowel movement, Shortness of breath, Dizziness, Fainting spells, Chest pain, Prolonged hiccoughing, Increased palpitations (irregular heartbeat), Calf discomfort, Uncontrolled pain Allergies/Adverse Reactions: Allergies furosemide [From Lasix] Adverse Reaction (Verified 02/23/19 20:58) Vomiting Medications to take at Discharge Aspirin E.C. [Ecotrin] 81 mg PO DAILY 11/11/15 Cholecalciferol (VIT D3) [Vitamin D3] 1,000 unit PO BID 11/11/15 Duloxetine HCl 60 mg PO DAILY 11/11/15 Fluoxetine HCl 40 mg PO DAILY 11/11/15 Fluticasone 0.05% [Flonase Nasal [place]] 1 spray NASAL DAILY 11/11/15 Leflunomide [Arava] 20 mg PO DAILY 11/11/15 Levothyroxine Sodium [Levoxyl] 100 mcg PO DAILY 11/11/15 Magnesium Oxide [Mag-Ox 400] 400 mg PO TID 11/11/15 Oxycodone HCl/Acetaminophen [Percocet 7.5-325 mg Tablet] 1 tablet PO 4X/DAY PRN 11/11/15 Pravastatin [Pravachol] 40 mg PO QHS 11/11/15 Pregabalin [Lyrica] 100 mg PO BREAKFAST 11/11/15 Quinapril HCl [Accupril] 40 mg PO DAILY 11/11/15 Spironolactone [Aldactone] 25 mg PO DAILY 11/11/15 Zolpidem Tartrate [Ambien] 10 mg PO QHS 11/11/15 metFORMIN HCl [Glucophage] 500 mg PO BIDCM 11/11/15 Clopidogrel Bisulfate [Clopidogrel] 75 mg PO DAILY 02/20/19 Amlodipine [Norvasc] 5 mg PO DAILY #0 02/24/19 Metoprolol Succinate 100 mg PO DAILY #0 02/24/19 Pregabalin [Lyrica] 150 mg PO QHS 02/24/19 Sitagliptin Phosphate [Januvia] 100 mg PO DAILY 02/24/19 Primary Care Physician: Mayra Goodman NP-C [Primary Care Provider] - Please follow up with your Primary Care Physician in: In 2 weeks Test Results: Test results from this visit will be discussed in further detail at your follow- up appointment, if applicable.
--- NOTE | 2019-02-24 10:31 | DS.PCM_ITS ---
Discharge Date and Diagnosis - Problem List Patient Problems: Active and Suspected Problems Encephalopathy acute (Acute) Date of Admission: 02/23/19 Date of Discharge: 02/24/19 - Primary Discharge Diagnosis Active and Suspected Problems Encephalopathy acute (Acute) - Secondary Discharge Diagnosis Chronic Problems HLD (hyperlipidemia) (Chronic) Depression (Chronic) Type II diabetes mellitus, uncontrolled (Chronic) Coronary arteriosclerosis (Chronic) Complaint of debility and malaise (Chronic) Ietpvon-Winxu-Eawia disease (Chronic) Cellulitis and abscess of foot excluding toe (Chronic) Cellulitis and abscess of leg (Chronic) Rheumatoid arthritis (Chronic) Morbid obesity (Chronic) Iron deficiency (Chronic) Iron deficiency anemia (Chronic) Benign essential HTN (Chronic) Hospital Course and Treatment Consultations 02/24/19 02:22 Consult: Onc/Wound/biochemistry specialist Routine Comment: Reason for Consult:: Wound on second toe of right foot. Operations: None Summary of Care Provided: [] The patient is a 73 year old F with a significant history of CAD status post stent; osteoarthritis; fibromyalgia; rheumatoid arthritis; charcot disease; diabetes mellitus; hypothyroidism who presented to emergency department with confusion although patient denies it. She might have age-related dementia. 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 Patient is talking coherent and comprehends well. Leukocytosis resolved. No focal signs and symptoms of infection or sepsis. Denies lower urinary tract symptoms, flulike symptoms or fever. UA is negative no pyuria, LE 25. Nitrite negative. B12 305. TSH normal. Hypertension: Blood pressure slightly elevated 161/101, heart rate 85/min. The patient was given extra dose of amlodipine 5 mg and instructed to take extra 5 mg at home if systolic blood pressure more than 150. Toprol-XL dose increased from 75mg to 100 mg daily. Hyperkalemia: In ER, K5.6. This was resolved with IV fluid saline. Repeat K4.7. Sodium 138. Mild prerenal azotemia on presentation; BUN/creatinine 29/1.21 improved to 22/0.8. CAD status post stents bilateral peripheral arterial disease with chronic wounds of right second toe and toe amputations. Patient has history of stents in both lower extremities. Patient has severe atherosclerotic disease and states she is does not walk much. Aspirin and Plavix continued Fibromyalgia/osteoarthritis/rheumatoid arthritis Continue leflunomide; Lyrica and Percocet. Patient also has osteoarthritis of cervical spine. Recent fall Cervical spine x-ray showed degenerative changes. No acute disease. Brain CT did not show any acute disease. Continue Percocet for pain Diabetes mellitus: Glucoses 142 in BMP. DPP4 inhibitor continued. Accu-Chek q. ACH S. DVT Prophylaxis Subcutaneous Lovenox Discharge medication reconciliation done. Discharge follow-up instructions completed. Discharge process discussed with the patient and all questions were answered to patient's satisfaction.. Total time spent, exact 35 minutes on discharge meds reconciliation, examination, review of imaging and blood test and discussion with the patient on follow-up instructions. Laboratory Results 02/23/19 21:40: WBC 12.7 H, RBC 4.79, Hgb 12.7, Hct 41.7, MCV 87.1, MCH 26.5 L, MCHC 30.5 L, RDW Std Deviation 47.2 H, RDW Coeff of Kav[place] 14.8 H, Plt Count 134 L, MPV 10.1, Immature Gran % (Auto) 0.500, Neut % (Auto) 82.1 H, Lymph % (Auto) 7.4 L, [place] % (Auto) 7.2, Eos % (Auto) 2.3, Baso % (Auto) 0.5, Absolute Neuts (auto) 10.5 H, Absolute Lymphs (auto) 0.94, Nucleated RBC % 0 02/23/19 21:40: Sodium 140, Potassium 5.6 H, Chloride 110 H, Carbon Dioxide 24.0, Anion Gap 6, BUN 29 H, Creatinine 1.21 H, Estim Creat Clear Calc 36.15, Est GFR (MDRD) Af Amer 56 L, Est GFR (MDRD) Non-Af 46 L, BUN/Creatinine Ratio 24.0 H, Glucose 173 H, Calcium 9.2, Troponin I < 0.015 02/23/19 21:40: Ethyl Alcohol 6.0 02/23/19 21:40: TSH 1.71 02/23/19 21:40: Vitamin B12 Pending 02/23/19 22:15: Urine Color Yellow, Urine Clarity Clear, Urine pH 5.0, Ur Specific [place] 1.020, Urine Protein 15 H, Urine Glucose (UA) Normal, Urine Ketones 5 H, Urine Occult Blood 10 H, Urine Nitrite Negative, Urine Bilirubin 6 H, Urine Urobilinogen Normal, Ur Leukocyte Esterase 25 H, Urine RBC 0-5 SEEN, Urine WBC 0-5 SEEN, Ur Squamous Epith Cells 0-5 SEEN, Urine Bacteria 0 SEEN, Urine Mucus 0 SEEN 02/23/19 22:15: Urine Opiates Screen POSITIVE H, Urine Methadone Screen NEGATIVE, Ur Barbiturates Screen NEGATIVE, Ur Phencyclidine Scrn NEGATIVE, Ur Amphetamines Screen NEGATIVE, U Methamphetamin-MDMA NEGATIVE, U Benzodiazepines Scrn NEGATIVE, Urine Cocaine Screen NEGATIVE, U Cannabinoids Screen NEGATIVE, Ur Drug Screen Comment 02/24/19 05:20: WBC 8.6, RBC 4.14 L, Hgb 11.1 L, Hct 35.9 L, MCV 86.7, MCH 26.8 L, MCHC 30.9 L, RDW Std Deviation 47.7 H, RDW Coeff of Kavon 15.0 H, Plt Count 112 L, MPV 9.9, Immature Gran % (Auto) 0.300, Neut % (Auto) 69.7, Lymph % (Auto) 15.9 L, [place] % (Auto) 9.5, Eos % (Auto) 3.9, Baso % (Auto) 0.7, Absolute Neuts (auto) 6.0, Absolute Lymphs (auto) 1.37, Nucleated RBC % 0 02/24/19 05:20: Sodium 138, Potassium 4.7, Chloride 108 H, Carbon Dioxide 25.0, Anion Gap 5, BUN 22 H, Creatinine 0.88, Estim Creat Clear Calc 47.70, Est GFR (MDRD) Af Amer 80, Est GFR (MDRD) Non-Af 66, BUN/Creatinine Ratio 24.9 H, Glucose 142 H, Calcium 8.6 Patient Problems: Active and Suspected Problems Encephalopathy acute (Acute) Subjective: Seen and examined. Patient states he does not have any new symptoms or complaint. Patient states she is old and sometimes misses or forgets some words and her son-in-law thought she is confused that so she was admitted - Physical Exam Vitals/I&O's: Vital Signs Temp Pulse Resp BP Pulse Ox 97.7 F L 85 18 161/101 H 95 02/24/19 05:00 02/24/19 08:30 02/24/19 05:00 02/24/19 08:30 02/24/19 05:00 Oxygen Flow Rate (L/min) 2 Oxygen Delivery Method Room Air Weight: 199 lb 4.766 oz Body Mass Index (BMI) 34.2 Intake and Output for Last 24 Hours 02/22/19 02/23/19 02/24/19 23:59 23:59 23:59 Intake Total 840 / 840 Balance 840 / 840 General: Alert, Oriented x3, Cooperative HEENT: Atraumatic, PERRLA, EOMI, Normocephalic Neck: Supple, No JVD, Negative Carotid Bruits Lungs: Clear to auscultation, Normal air movement, No rhonchi, No wheeze, No rales Cardiovascular: Regular rate, Regular Rhythm, Normal S1, Normal S2, Murmur Abdomen: Bowel Sounds Present, Soft, Non Tender, Non-Distended Extremities: No edema, Capillary Refill Less than 3 Seconds, Diminished Peripheral Pulses, - - Missing toes and left foot. only great and fifth toe remaining. Similar missing toes and right foot. Severe peripheral arterial disease status post both the stents. Skin: No rashes, No breakdown Musculoskeletal: Arthritic Changes, Muscle Wasting, Tenderness - Mild tenderness to her cervical spine. Chronic arthritis changes Neurological: Cranial nerves II-XII grossly intact, Deep Tendon Reflexes 2+/4 and Symmetrical, Neuro grossly intact Psych/Mental Status: Normal Affect, Appropriate Laboratory Results 02/23/19 21:40: WBC 12.7 H, RBC 4.79, Hgb 12.7, Hct 41.7, MCV 87.1, MCH 26.5 L, MCHC 30.5 L, RDW Std Deviation 47.2 H, RDW Coeff of Kavon 14.8 H, Plt Count 134 L, MPV 10.1, Immature Gran % (Auto) 0.500, Neut % (Auto) 82.1 H, Lymph % (Auto) 7.4 L, [place] % (Auto) 7.2, Eos % (Auto) 2.3, Baso % (Auto) 0.5, Absolute Neuts (auto) 10.5 H, Absolute Lymphs (auto) 0.94, Nucleated RBC % 0 02/23/19 21:40: Sodium 140, Potassium 5.6 H, Chloride 110 H, Carbon Dioxide 24.0, Anion Gap 6, BUN 29 H, Creatinine 1.21 H, Estim Creat Clear Calc 36.15, Est GFR (MDRD) Af Amer 56 L, Est GFR (MDRD) Non-Af 46 L, BUN/Creatinine Ratio 24.0 H, Glucose 173 H, Calcium 9.2, Troponin I < 0.015 02/23/19 21:40: Ethyl Alcohol 6.0 02/23/19 21:40: TSH 1.71 02/23/19 21:40: Vitamin B12 305 02/23/19 22:15: Urine Color Yellow, Urine Clarity Clear, Urine pH 5.0, Ur Specific [place] 1.020, Urine Protein 15 H, Urine Glucose (UA) Normal, Urine Ketones 5 H, Urine Occult Blood 10 H, Urine Nitrite Negative, Urine Bilirubin 6 H, Urine Urobilinogen Normal, Ur Leukocyte Esterase 25 H, Urine RBC 0-5 SEEN, Urine WBC 0-5 SEEN, Ur Squamous Epith Cells 0-5 SEEN, Urine Bacteria 0 SEEN, Urine Mucus 0 SEEN 02/23/19 22:15: Urine Opiates Screen POSITIVE H, Urine Methadone Screen NEGATIVE, Ur Barbiturates Screen NEGATIVE, Ur Phencyclidine Scrn NEGATIVE, Ur Amphetamines Screen NEGATIVE, U Methamphetamin-MDMA NEGATIVE, U Benzodiazepines Scrn NEGATIVE, Urine Cocaine Screen NEGATIVE, U Cannabinoids Screen NEGATIVE, Ur Drug Screen Comment 02/24/19 05:20: WBC 8.6, RBC 4.14 L, Hgb 11.1 L, Hct 35.9 L, MCV 86.7, MCH 26.8 L, MCHC 30.9 L, RDW Std Deviation 47.7 H, RDW Coeff of Kavon 15.0 H, Plt Count 112 L, MPV 9.9, Immature Gran % (Auto) 0.300, Neut % (Auto) 69.7, Lymph % (Auto) 15.9 L, [place] % (Auto) 9.5, Eos % (Auto) 3.9, Baso % (Auto) 0.7, Absolute Neuts (auto) 6.0, Absolute Lymphs (auto) 1.37, Nucleated RBC % 0 02/24/19 05:20: Sodium 138, Potassium 4.7, Chloride 108 H, Carbon Dioxide 25.0, Anion Gap 5, BUN 22 H, Creatinine 0.88, Estim Creat Clear Calc 47.70, Est GFR (MDRD) Af Amer 80, Est GFR (MDRD) Non-Af 66, BUN/Creatinine Ratio 24.9 H, Glucose 142 H, Calcium 8.6 Current Medications Amlodipine Besylate (Norvasc) 5 mg PO DAILY [facility] Last Admin: 02/24/19 08:36 Dose: 5 mg Documented by: Amlodipine Besylate (Norvasc) 5 mg PO X1 ONE Stop: 02/24/19 10:25 Aspirin (Ecotrin) 81 mg PO DAILY@0800 [facility] Last Admin: 02/24/19 08:35 Dose: 81 mg Documented by: Cholecalciferol (Vitamin D) 1,000 unit PO DAILY [facility] Last Admin: 02/24/19 08:35 Dose: 1,000 unit Documented by: Clopidogrel Bisulfate (Plavix) 75 mg PO DAILY [facility] Last Admin: 02/24/19 08:34 Dose: 75 mg Documented by: Dextrose (D50w Syringe) 0 gm IV X1 PRN; Protocol PRN Reason: Hypoglycemia Duloxetine HCl (Cymbalta) 60 mg PO DAILY [facility] Last Admin: 02/24/19 08:36 Dose: 60 mg Documented by: Enoxaparin Sodium (Lovenox) 40 mg SC DAILY [facility] Fluoxetine HCl (Prozac) 40 mg PO DAILY [facility] Last Admin: 02/24/19 08:29 Dose: 40 mg Documented by: Fluticasone Propionate (Flonase Nasal [place]) 1 spray NASAL DAILY [facility] Last Admin: 02/24/19 08:28 Dose: 1 spray Documented by: Glucagon () 1 mg IM .X1 PRN PRN Reason: Hypoglycemia Sodium Chloride () 1,000 mls @ 100 mls/hr IV .Q10H [facility] Stop: 02/24/19 12:21 Last Admin: 02/24/19 02:55 Dose: 100 mls/hr Documented by: Leflunomide (Leflunomide) 20 mg PO DAILY [facility] Last Admin: 02/24/19 08:36 Dose: 20 mg Documented by: Levothyroxine Sodium (Synthroid) 100 mcg PO DAILY@0600 [facility] Last Admin: 02/24/19 05:36 Dose: 100 mcg Documented by: Linagliptin (Tradjenta) 5 mg PO DAILY [facility] Last Admin: 02/24/19 08:31 Dose: 5 mg Documented by: Lisinopril (Zestril) 40 mg PO DAILY [facility] Last Admin: 02/24/19 08:38 Dose: 40 mg Documented by: Magnesium Oxide (Mag-Ox 400) 400 mg PO TIDCM [facility] Last Admin: 02/24/19 08:34 Dose: 400 mg Documented by: Metformin HCl (Glucophage) 1,000 mg PO BIDCM [facility] Last Admin: 02/24/19 08:39 Dose: 1,000 mg Documented by: Metoprolol Succinate (Toprol Xl (Beta Carey)) 75 mg PO DAILY [facility] Last Admin: 02/24/19 08:30 Dose: 75 mg Documented by: Nutritional Formula (Lactose Free) (Glucerna Shake) 120 ml PO TIDCM [facility] Last Admin: 02/24/19 08:43 Dose: 120 ml Documented by: Nystatin (Mycostatin Powder) 1 applic TOPICAL TID [facility]; Protocol Last Admin: 02/24/19 05:36 Dose: 1 applicatio Documented by: Ondansetron HCl (Zofran) 4 mg IV Q8H PRN PRN PRN Reason: NAUSEA/VOMITING Oxycodone HCl (Oxyir) 5 - 10 mg PO BID PRN PRN PRN Reason: Pain Score 1-10/10 Last Admin: 02/24/19 02:53 Dose: 10 mg Documented by: Pravastatin Sodium (Pravachol) 40 mg PO QHS [facility] Pregabalin (Lyrica) 100 mg PO DAILY [facility] Last Admin: 02/24/19 08:43 Dose: 100 mg Documented by: Pregabalin (Lyrica) 150 mg PO QHS [facility] Spironolactone (Aldactone) 25 mg PO DAILY [facility] Last Admin: 02/24/19 08:37 Dose: 25 mg Documented by: Zolpidem Tartrate (Ambien (Generic)) 5 mg PO QHS [facility] Discharge Activity: May Not Drive Weight Bearing Status: Weight bearing as tolerated Call your doctor if you observe: Fever of 101 or Higher, Numbness or Tingling, Inability to urinate, Inability to have a bowel movement, Shortness of breath, Dizziness, Fainting spells, Chest pain, Prolonged hiccoughing, Increased palpitations (irregular heartbeat), Calf discomfort, Uncontrolled pain Home Medications: Medications to take at Discharge Aspirin E.C. [Ecotrin] 81 mg PO DAILY 11/11/15 Cholecalciferol (VIT D3) [Vitamin D3] 1,000 unit PO BID 11/11/15 Duloxetine HCl 60 mg PO DAILY 11/11/15 Fluoxetine HCl 40 mg PO DAILY 11/11/15 Fluticasone 0.05% [Flonase Nasal [place]] 1 spray NASAL DAILY 11/11/15 Leflunomide [Arava] 20 mg PO DAILY 11/11/15 Levothyroxine Sodium [Levoxyl] 100 mcg PO DAILY 11/11/15 Magnesium Oxide [Mag-Ox 400] 400 mg PO TID 11/11/15 Oxycodone HCl/Acetaminophen [Percocet 7.5-325 mg Tablet] 1 tablet PO 4X/DAY PRN 11/11/15 Pravastatin [Pravachol] 40 mg PO QHS 11/11/15 Pregabalin [Lyrica] 100 mg PO BREAKFAST 11/11/15 Quinapril HCl [Accupril] 40 mg PO DAILY 11/11/15 Spironolactone [Aldactone] 25 mg PO DAILY 11/11/15 Zolpidem Tartrate [Ambien] 10 mg PO QHS 11/11/15 metFORMIN HCl [Glucophage] 500 mg PO BIDCM 11/11/15 Clopidogrel Bisulfate [Clopidogrel] 75 mg PO DAILY 02/20/19 Amlodipine [Norvasc] 5 mg PO DAILY #0 02/24/19 Metoprolol Succinate 100 mg PO DAILY #0 02/24/19 Pregabalin [Lyrica] 150 mg PO QHS 02/24/19 Sitagliptin Phosphate [Januvia] 100 mg PO DAILY 02/24/19 Primary Care Physician: Mayra Goodman NP-C [Primary Care Provider] - Please follow up with your Primary Care Physician in: In 2 weeks Medical Necessity - Tobacco Use Smoking Status: Former smoker Meaningful Use Info Meaningful Use Diagnoses (Choose all that apply): None applicable Code Visit OBSV E&M: 26514 Observation care discharge
[2019-02-24 11:00] VITALS: BP 148/78; PULSE 85; RESP 18; TEMP 36.6; O2SAT 98
== END 2019-02-24 12:15 | disposition home or self-care (01) ==
LOC: ED 21:39 → MS3 23:54
PROVIDERS: Admitting Provider Hospitalist; Emergency Provider Emergency Medicine; Family Provider Nurse Practitioner; PCP Nurse Practitioner; Visit Provider Internal Medicine
DX: G93.40 Encephalopathy, unspecified (principal); E78.5 Hyperlipidemia, unspecified; E66.01 Morbid (severe) obesity due to excess calories; I25.10 Atherosclerotic heart disease of native coronary artery without angina pectoris; G60.0 Hereditary motor and sensory neuropathy; F32.9 Major depressive disorder, single episode, unspecified; E87.5 Hyperkalemia; E87.8 Other disorders of electrolyte and fluid balance, not elsewhere classified; E11.51 Type 2 diabetes mellitus with diabetic peripheral angiopathy without gangrene; M47.892 Other spondylosis, cervical region; M06.9 Rheumatoid arthritis, unspecified; I10 Essential (primary) hypertension; D50.9 Iron deficiency anemia, unspecified; E11.65 Type 2 diabetes mellitus with hyperglycemia; E03.9 Hypothyroidism, unspecified; M79.7 Fibromyalgia; Z87.891 Personal history of nicotine dependence; Z71.3 Dietary counseling and surveillance; Z79.899 Other long term (current) drug therapy; Z79.84 Long term (current) use of oral hypoglycemic drugs; Z79.82 Long term (current) use of aspirin; Z79.02 Long term (current) use of antithrombotics/antiplatelets; Z68.33 Body mass index [BMI] 33.0-33.9, adult; Z91.81 History of falling
CPT/HCPCS: 36415; 70450; 72040; 80048; 80307; 80320; 81001; 82607; 84443; 84484; 85025; 93005; 96360; 96361; 97802; 99218; 99285; J7030; A4216; G0378; G0480

== ENCOUNTER → 2019-05-05 10:16 | Outpatient (CLI) | payer MEDICARE, OTHER, MEDICAID, SELFPAY ==
[2019-02-24 00:32] VITALS: BMI 34.2
[2019-05-05 11:15] LABS: Absolute Lymphocyte Count 1.23 X10^3/uL (0.83-4.51); Absolute Neutrophil Count 4.7 X10^3/uL (2.0-7.7); Basophil% 1.4 % (0-1); Eosinophil# 0.38 X10^3/uL; Eosinophils% 5.3 % (0-5); Hematocrit 43.5 % (37-47); Hemoglobin 13.1 g/dL (12.0-15.0); Lymphocyte # 1.23 X10^3/ul (4.0); Lymphocyte % 17.3 % (19-41); Mean Corp Hgb Conc 30.1 g/dL (32-36); Mean Corpuscular Hgb 26.3 pg (27.0-32.0); Mean Corpuscular Volume 87.2 fL (81-99); Mean Platelet Vol. 10.4 fl (6.2-12.0); Monocyte# 0.69 X10^3/uL; Monocyte% 9.7 % (0-10); NRBC Flagged by Analyzer 0 % (0-5); Neutrophil # 4.68 X10^3/uL (2.7-7.7); Neutrophil % 65.7 % (47-70); Platelet Count 158 K/mm3 (150-450); RBC Distribution Width CV 14.6 % (11.6-14.6); RBC Distribution Width SD 46.9 fl (35.1-43.9); Red Blood Count 4.99 M/mm3 (4.2-5.4); White Blood Count 7.1 K/mm3 (4.4-11.0)
[2019-05-05 11:39] LABS: Hemoglobin A1c 6.9 % (4.2-6.3)
[2019-05-05 11:52] LABS: ALB/GLOB Ratio 0.7 RATIO (0.9-2.4); AST(SGOT) 19 U/L (15-37); Alanine Aminotransfer ALT/SGPT 11 U/L (13-56); Albumin, Serum 2.7 g/dL (3.2-5.0); Alkaline Phosphatase 73 U/L (45-117); Anion Gap 5 (5-15); BUN 23 mg/dL (7-18); BUN/Creat Ratio 19.2 RATIO (10-20); Calcium,Total 9.3 mg/dL (8.5-10.1); Chloride 105 mmol/L (98-107); EST Glomerular Filtration Rate 46 mL/min (>60); Est Glom Filt Rate - Afr Amer 56 mL/min (>60); Glucose 164 mg/dL (74-106); Potassium 4.5 mmol/L (3.5-5.1); Protein, Total 6.7 g/dL (6.4-8.2); Sodium Level 137 mmol/L (136-145)
== END ==
PROVIDERS: PCP Nurse Practitioner; Referring Provider Internal Medicine Endocrinology, Diabetes & Metabolism; Visit Provider Internal Medicine Endocrinology, Diabetes & Metabolism
DX: E11.65 Type 2 diabetes mellitus with hyperglycemia (principal); M05.79 Rheumatoid arthritis with rheumatoid factor of multiple sites without organ or systems involvement; M79.7 Fibromyalgia; M15.9 Polyosteoarthritis, unspecified; M17.0 Bilateral primary osteoarthritis of knee; K76.0 Fatty (change of) liver, not elsewhere classified; M50.30 Other cervical disc degeneration, unspecified cervical region; M47.892 Other spondylosis, cervical region; Z79.899 Other long term (current) drug therapy
CPT/HCPCS: 36415; 80053; 83036; 85025

== ENCOUNTER → 2019-08-07 10:07 | Outpatient (CLI) | payer MEDICARE, OTHER, MEDICAID, SELFPAY ==
[2019-02-24 00:32] VITALS: BMI 34.2
[2019-08-07 10:31] LABS: Absolute Lymphocyte Count 1.02 X10^3/uL (0.83-4.51); Absolute Neutrophil Count 4.1 X10^3/uL (2.0-7.7); Basophil# 0.05 X10^3/uL; Basophil% 0.8 % (0-1); Eosinophil# 0.33 X10^3/uL; Eosinophils% 5.4 % (0-5); Hemoglobin 13.5 g/dL (12.0-15.0); Lymphocyte # 1.02 X10^3/ul (4.0); Lymphocyte % 16.6 % (19-41); Mean Corp Hgb Conc 30.7 g/dL (32-36); Mean Platelet Vol. 9.7 fl (6.2-12.0); Monocyte# 0.57 X10^3/uL; Monocyte% 9.3 % (0-10); NRBC Flagged by Analyzer 0 % (0-5); Neutrophil # 4.13 X10^3/uL (2.7-7.7); Neutrophil % 67.4 % (47-70); Platelet Count 149 K/mm3 (150-450); RBC Distribution Width CV 14.6 % (11.6-14.6); White Blood Count 6.1 K/mm3 (4.4-11.0)
[2019-08-07 10:57] LABS: ALB/GLOB Ratio 0.7 RATIO (0.9-2.4); AST(SGOT) 13 U/L (15-37); Alanine Aminotransfer ALT/SGPT 12 U/L (13-56); Albumin, Serum 2.8 g/dL (3.2-5.0); Alkaline Phosphatase 65 U/L (45-117); Anion Gap 5 (5-15); BUN 21 mg/dL (7-18); BUN/Creat Ratio 22.3 RATIO (10-20); Calcium,Total 9.1 mg/dL (8.5-10.1); Chloride 108 mmol/L (98-107); Creatinine, Serum 0.94 mg/dL (0.55-1.02); EST Glomerular Filtration Rate 61 mL/min (>60); Est Glom Filt Rate - Afr Amer 74 mL/min (>60); Globulin 3.8 g/dL (2.2-4.2); Glucose 162 mg/dL (74-106); Potassium 4.6 mmol/L (3.5-5.1); Protein, Total 6.6 g/dL (6.4-8.2); Sodium Level 140 mmol/L (136-145)
== END ==
PROVIDERS: PCP Nurse Practitioner; Referring Provider Internal Medicine Rheumatology; Visit Provider Internal Medicine Rheumatology
DX: M05.79 Rheumatoid arthritis with rheumatoid factor of multiple sites without organ or systems involvement (principal); M79.7 Fibromyalgia; M17.0 Bilateral primary osteoarthritis of knee; K76.0 Fatty (change of) liver, not elsewhere classified; M50.30 Other cervical disc degeneration, unspecified cervical region; M47.892 Other spondylosis, cervical region; E11.69 Type 2 diabetes mellitus with other specified complication; I10 Essential (primary) hypertension; E03.8 Other specified hypothyroidism; I25.10 Atherosclerotic heart disease of native coronary artery without angina pectoris; D50.9 Iron deficiency anemia, unspecified; Z79.899 Other long term (current) drug therapy
CPT/HCPCS: 36415; 80053; 85025

== ENCOUNTER → 2019-08-13 13:55 | Outpatient (CLI) | payer MEDICARE, OTHER, MEDICAID, SELFPAY ==
[2019-02-24 00:32] VITALS: BMI 34.2
== END ==
PROVIDERS: PCP Nurse Practitioner; Referring Provider Podiatrist; Visit Provider Podiatrist
DX: L03.031 Cellulitis of right toe (principal)
CPT/HCPCS: 87070; 87077; 87186; 87205

== ENCOUNTER → 2019-09-12 09:25 | Outpatient (CLI) | payer MEDICARE, OTHER, MEDICAID, SELFPAY ==
[2019-02-24 00:32] VITALS: BMI 34.2
[2019-09-12 10:58] LABS: Hemoglobin A1c 6.5 % (3.8-5.6)
[2019-09-12 11:09] LABS: ALB/GLOB Ratio 0.7 RATIO (0.9-2.4); AST(SGOT) 11 U/L (15-37); Alanine Aminotransfer ALT/SGPT 11 U/L (13-56); Albumin, Serum 2.7 g/dL (3.2-5.0); Alkaline Phosphatase 64 U/L (45-117); Anion Gap 7 (5-15); BUN 24 mg/dL (7-18); BUN/Creat Ratio 24.4 RATIO (10-20); Calcium,Total 8.9 mg/dL (8.5-10.1); Chloride 108 mmol/L (98-107); Cholesterol 145 mg/dL (200); Creatinine, Serum 0.98 mg/dL (0.55-1.02); EST Glomerular Filtration Rate 58 mL/min (>60); Est Glom Filt Rate - Afr Amer 71 mL/min (>60); Globulin 3.8 g/dL (2.2-4.2); Glucose 178 mg/dL (74-106); High Density Lipoprotein 32 mg/dL; Potassium 4.5 mmol/L (3.5-5.1); Protein, Total 6.5 g/dL (6.4-8.2); Sodium Level 141 mmol/L (136-145); Thyroid Stim Hormone (TSH) 2.49 uIU/mL (0.358-3.74); Triglycerides 148 mg/dL; Very Low Density Lipoprotein 30 mg/dL (5-40)
== END ==
PROVIDERS: PCP Nurse Practitioner; Referring Provider Internal Medicine Endocrinology, Diabetes & Metabolism; Visit Provider Internal Medicine Endocrinology, Diabetes & Metabolism
DX: E11.65 Type 2 diabetes mellitus with hyperglycemia (principal)
CPT/HCPCS: 36415; 80053; 80061; 83036; 84443

== ENCOUNTER → 2019-12-08 09:12 | Outpatient (CLI) | payer MEDICARE, OTHER, MEDICAID, SELFPAY ==
[2019-02-24 00:32] VITALS: BMI 34.2
[2019-12-08 10:26] LABS: Absolute Lymphocyte Count 1.14 X10^3/uL (0.83-4.51); Absolute Neutrophil Count 4.5 X10^3/uL (2.0-7.7); Basophil# 0.07 X10^3/uL; Eosinophils% 5.9 % (0-5); Hematocrit 43.6 % (37-47); Lymphocyte # 1.14 X10^3/ul (4.0); Lymphocyte % 16.9 % (19-41); Mean Corp Hgb Conc 29.8 g/dL (32-36); Mean Corpuscular Hgb 25.7 pg (27.0-32.0); Mean Corpuscular Volume 86.3 fL (81-99); Monocyte# 0.59 X10^3/uL; Monocyte% 8.8 % (0-10); NRBC Flagged by Analyzer 0 % (0-5); Platelet Count 198 K/mm3 (150-450); RBC Distribution Width CV 14.7 % (11.6-14.6); RBC Distribution Width SD 46.6 fl (35.1-43.9); Red Blood Count 5.05 M/mm3 (4.2-5.4); White Blood Count 6.7 K/mm3 (4.4-11.0)
[2019-12-08 11:02] LABS: ALB/GLOB Ratio 0.8 RATIO (0.9-2.4); AST(SGOT) 12 U/L (15-37); Alanine Aminotransfer ALT/SGPT 13 U/L (13-56); Albumin, Serum 2.8 g/dL (3.2-5.0); Alkaline Phosphatase 73 U/L (45-117); Anion Gap 3 (5-15); BUN 26 mg/dL (7-18); BUN/Creat Ratio 24.3 RATIO (10-20); Calcium,Total 8.7 mg/dL (8.5-10.1); Chloride 106 mmol/L (98-107); Creatinine, Serum 1.07 mg/dL (0.55-1.02); EST Glomerular Filtration Rate 53 mL/min (>60); Est Glom Filt Rate - Afr Amer 64 mL/min (>60); Globulin 3.7 g/dL (2.2-4.2); Glucose 201 mg/dL (74-106); Potassium 4.4 mmol/L (3.5-5.1); Protein, Total 6.5 g/dL (6.4-8.2); Sodium Level 140 mmol/L (136-145); Thyroid Stim Hormone (TSH) 1.45 uIU/mL (0.358-3.74)
== END ==
PROVIDERS: PCP Nurse Practitioner; Referring Provider Internal Medicine Rheumatology; Visit Provider Internal Medicine Rheumatology
DX: M05.79 Rheumatoid arthritis with rheumatoid factor of multiple sites without organ or systems involvement (principal); M79.7 Fibromyalgia; M17.0 Bilateral primary osteoarthritis of knee; K76.0 Fatty (change of) liver, not elsewhere classified; M50.30 Other cervical disc degeneration, unspecified cervical region; M47.892 Other spondylosis, cervical region; E16.9 Disorder of pancreatic internal secretion, unspecified; I10 Essential (primary) hypertension; E03.8 Other specified hypothyroidism; I25.10 Atherosclerotic heart disease of native coronary artery without angina pectoris; D50.9 Iron deficiency anemia, unspecified; Z79.899 Other long term (current) drug therapy
CPT/HCPCS: 36415; 80053; 84443; 85025

== ENCOUNTER → 2019-12-17 15:24 | Outpatient (CLI) | payer MEDICARE, OTHER, MEDICAID, SELFPAY ==
[2019-02-24 00:32] VITALS: BMI 34.2
== END ==
PROVIDERS: PCP Nurse Practitioner; Visit Provider Podiatrist
DX: L97.512 Non-pressure chronic ulcer of other part of right foot with fat layer exposed (principal)
CPT/HCPCS: 87070; 87077; 87186; 87205

== ENCOUNTER → 2019-12-30 15:15 | Outpatient (CLI) | payer MEDICARE, OTHER, MEDICAID, SELFPAY ==
[2019-02-24 00:32] VITALS: BMI 34.2
== END ==
PROVIDERS: PCP Nurse Practitioner; Referring Provider Podiatrist; Visit Provider Podiatrist
DX: L97.512 Non-pressure chronic ulcer of other part of right foot with fat layer exposed (principal); L02.611 Cutaneous abscess of right foot
CPT/HCPCS: 87070; 87077; 87186; 87205

== ENCOUNTER → 2020-01-26 14:34 | Outpatient (CLI) | payer MEDICARE, OTHER, MEDICAID, SELFPAY ==
[2019-02-24 00:32] VITALS: BMI 34.2
[2020-01-26 15:34] LABS: Absolute Neutrophil Count 5.8 X10^3/uL (2.0-7.7); Basophil# 0.05 X10^3/uL; Basophil% 0.6 % (0-1); Eosinophil# 0.44 X10^3/uL; Eosinophils% 5.3 % (0-5); Hemoglobin 12.7 g/dL (12.0-15.0); Lymphocyte % 15.8 % (19-41); Mean Corp Hgb Conc 29.5 g/dL (32-36); Mean Corpuscular Hgb 25.8 pg (27.0-32.0); Mean Corpuscular Volume 87.2 fL (81-99); Mean Platelet Vol. 10.9 fl (6.2-12.0); Monocyte# 0.65 X10^3/uL; Monocyte% 7.9 % (0-10); NRBC Flagged by Analyzer 0 % (0-5); Neutrophil # 5.78 X10^3/uL (2.7-7.7); Platelet Count 171 K/mm3 (150-450); RBC Distribution Width CV 14.4 % (11.6-14.6); Red Blood Count 4.93 M/mm3 (4.2-5.4); White Blood Count 8.3 K/mm3 (4.4-11.0)
[2020-01-26 15:48] LABS: Vitamin D,25 Hydroxy 75.2 ng/mL
[2020-01-26 16:01] LABS: ALB/GLOB Ratio 0.7 RATIO (0.9-2.4); AST(SGOT) 10 U/L (15-37); Alanine Aminotransfer ALT/SGPT 14 U/L (13-56); Albumin, Serum 2.8 g/dL (3.2-5.0); Alkaline Phosphatase 79 U/L (45-117); Anion Gap 9 (5-15); BUN 38 mg/dL (7-18); Chloride 101 mmol/L (98-107); Creatinine, Serum 1.52 mg/dL (0.55-1.02); EST Glomerular Filtration Rate 35 mL/min (>60); Est Glom Filt Rate - Afr Amer 43 mL/min (>60); Globulin 3.8 g/dL (2.2-4.2); Glucose 237 mg/dL (74-106); Potassium 4.7 mmol/L (3.5-5.1); Protein, Total 6.6 g/dL (6.4-8.2); Sodium Level 138 mmol/L (136-145); Thyroid Stim Hormone (TSH) 3.81 uIU/mL (0.358-3.74)
== END ==
PROVIDERS: PCP Nurse Practitioner; Referring Provider Nurse Practitioner; Visit Provider Nurse Practitioner
DX: R20.2 Paresthesia of skin (principal); M81.0 Age-related osteoporosis without current pathological fracture
CPT/HCPCS: 80053; 82306; 84443; 85025

== ENCOUNTER → 2020-02-04 15:44 | Outpatient (CLI) | payer MEDICARE, OTHER, MEDICAID, SELFPAY ==
[2019-02-24 00:32] VITALS: BMI 34.2
[2020-02-04 16:37] LABS: Anion Gap 7 (5-15); BUN 33 mg/dL (7-18); Calcium,Total 8.8 mg/dL (8.5-10.1); Chloride 107 mmol/L (98-107); Creatinine, Serum 1.27 mg/dL (0.55-1.02); EST Glomerular Filtration Rate 43 mL/min (>60); Est Glom Filt Rate - Afr Amer 53 mL/min (>60); Glucose 117 mg/dL (74-106); Potassium 4.6 mmol/L (3.5-5.1); Sodium Level 139 mmol/L (136-145)
[2020-02-09 18:25] LABS: Vitamin D 1,25-Dihydroxy 38.7 pg/mL (19.9-79.3)
== END ==
PROVIDERS: PCP Nurse Practitioner; Referring Provider Internal Medicine; Visit Provider Internal Medicine
DX: E67.3 Hypervitaminosis D (principal); Z79.899 Other long term (current) drug therapy
CPT/HCPCS: 80048; 82652

== ENCOUNTER → 2020-02-10 13:40 | Outpatient (CLI) | payer MEDICARE, OTHER, MEDICAID, SELFPAY ==
[2019-02-24 00:32] VITALS: BMI 34.2
[2020-02-10 14:49] LABS: Vitamin D,25 Hydroxy 59.7 ng/mL
[2020-02-10 14:59] LABS: ALB/GLOB Ratio 0.8 RATIO (0.9-2.4); AST(SGOT) 12 U/L (15-37); Alanine Aminotransfer ALT/SGPT 15 U/L (13-56); Alkaline Phosphatase 80 U/L (45-117); Anion Gap 5 (5-15); BUN 21 mg/dL (7-18); BUN/Creat Ratio 20.8 RATIO (10-20); Calcium,Total 9.2 mg/dL (8.5-10.1); Chloride 105 mmol/L (98-107); Creatinine, Serum 1.01 mg/dL (0.55-1.02); EST Glomerular Filtration Rate 57 mL/min (>60); Est Glom Filt Rate - Afr Amer 68 mL/min (>60); Globulin 3.8 g/dL (2.2-4.2); Glucose 173 mg/dL (74-106); Potassium 4.6 mmol/L (3.5-5.1); Protein, Total 6.8 g/dL (6.4-8.2); Sodium Level 137 mmol/L (136-145); T4 Free Direct 1.22 ng/dL (0.76-1.46); Thyroid Stim Hormone (TSH) 3.54 uIU/mL (0.358-3.74)
== END ==
PROVIDERS: PCP Nurse Practitioner; Referring Provider Internal Medicine Endocrinology, Diabetes & Metabolism; Visit Provider Internal Medicine Endocrinology, Diabetes & Metabolism
DX: M14.60 Charcot's joint, unspecified site (principal); E03.9 Hypothyroidism, unspecified; I12.9 Hypertensive chronic kidney disease with stage 1 through stage 4 chronic kidney disease, or unspecified chronic kidney disease; N18.30 Chronic kidney disease, stage 3 unspecified; E11.65 Type 2 diabetes mellitus with hyperglycemia; E11.22 Type 2 diabetes mellitus with diabetic chronic kidney disease
CPT/HCPCS: 36415; 80053; 82306; 83036; 84439; 84443

== ENCOUNTER → 2020-02-23 14:00 | Outpatient (CLI) | payer MEDICARE, OTHER, MEDICAID, SELFPAY ==
[2019-02-24 00:32] VITALS: BMI 34.2
[2020-02-23 15:45] LABS: Absolute Lymphocyte Count 1.32 X10^3/uL (0.83-4.51); Absolute Neutrophil Count 4.9 X10^3/uL (2.0-7.7); Basophil# 0.06 X10^3/uL; Basophil% 0.8 % (0-1); Eosinophil# 0.39 X10^3/uL; Eosinophils% 5.3 % (0-5); Hematocrit 39.4 % (37-47); Hemoglobin 12.3 g/dL (12.0-15.0); Lymphocyte # 1.32 X10^3/ul (4.0); Lymphocyte % 17.8 % (19-41); Mean Corp Hgb Conc 31.2 g/dL (32-36); Mean Corpuscular Hgb 27.3 pg (27.0-32.0); Mean Corpuscular Volume 87.6 fL (81-99); Monocyte# 0.68 X10^3/uL; Monocyte% 9.2 % (0-10); NRBC Flagged by Analyzer 0 % (0-5); Neutrophil # 4.93 X10^3/uL (2.7-7.7); Neutrophil % 66.5 % (47-70); Platelet Count 152 K/mm3 (150-450); RBC Distribution Width CV 14.9 % (11.6-14.6); RBC Distribution Width SD 47.6 fl (35.1-43.9); White Blood Count 7.4 K/mm3 (4.4-11.0)
[2020-02-23 15:57] LABS: ALB/GLOB Ratio 0.9 RATIO (0.9-2.4); AST(SGOT) 13 U/L (15-37); Alanine Aminotransfer ALT/SGPT 14 U/L (13-56); Alkaline Phosphatase 77 U/L (45-117); Anion Gap 6 (5-15); BUN 20 mg/dL (7-18); BUN/Creat Ratio 21.3 RATIO (10-20); Calcium,Total 9.1 mg/dL (8.5-10.1); Chloride 105 mmol/L (98-107); Creatinine, Serum 0.94 mg/dL (0.55-1.02); EST Glomerular Filtration Rate 62 mL/min (>60); Est Glom Filt Rate - Afr Amer 75 mL/min (>60); Globulin 3.4 g/dL (2.2-4.2); Glucose 132 mg/dL (74-106); Potassium 4.6 mmol/L (3.5-5.1); Protein, Total 6.4 g/dL (6.4-8.2); Sodium Level 137 mmol/L (136-145)
== END ==
PROVIDERS: PCP Nurse Practitioner; Referring Provider Internal Medicine Rheumatology; Visit Provider Internal Medicine Rheumatology
DX: M05.79 Rheumatoid arthritis with rheumatoid factor of multiple sites without organ or systems involvement (principal)
CPT/HCPCS: 80053; 85025

== ENCOUNTER 2020-03-09 12:55 | Observation (INO) | payer MEDICARE, OTHER, MEDICAID, SELFPAY ==
[2019-02-24 00:32] VITALS: BMI 34.2
[2020-03-09 13:02] VITALS: BP 177/37; PULSE 71; RESP 22; TEMP 36.8; O2SAT 97; BMI 33.5
[2020-03-09 13:29] VITALS: BP 165/42; PULSE 72; RESP 20; O2SAT 98
--- NOTE | 2020-03-09 14:16 | ED.VIS.GEN ---
History of Present Illness Chief Complaint: Weakness Informant: Patient Narrative: Patient is a 74-year-old female with a past medical history of RA, hypothyroidism, hypertension, hyperlipidemia who presents to the emergency department for generalized weakness. She states that over the past 2 days it has been progressively getting worse. She does live at home and has home health care aides visit 2 hours/day. She states that she was having difficulty getting off the toilet and had to call paramedics. She is been having frequent falls at home due to her weakness. Feels like she loses control of her arms and legs. She denies any unilateral weakness or loss of sensation. No significant headache. She denies hitting her head or losing consciousness. Does have chronic neck pain. She is supposed to have an MRI performed tomorrow to reevaluate this. She denies any chest pain or shortness of breath. No abdominal pain or nausea/vomiting. No change in bowel habits past her baseline. No urinary symptoms. Past Medical History - Allergies and Home Meds Allergies/Adverse Reactions: Allergies furosemide [From Lasix] Adverse Reaction (Verified 03/09/20 13:30) Vomiting Primary Care Physician: Mayra Goodman OPERATIONS ADMINISTRATOR, OPERATIONS ADMINISTRATOR-C [Primary Care Provider] - Prior records reviewed: Yes Surgical History: appendectomy, hysterectomy, tonsillectomy Smoking Status: Former smoker - Family History Maternal Family History: Reports: Heart Disease, - - Peripheral artery disease Paternal Family History: Reports: - - Denies that his father had any medical condition. Review of Systems All systems negative except as indicated General: Denies: Chills, Fever, Sweats Eyes: Denies: Visual changes - bilaterally, Diplopia ENT: Denies: Rhinorrhea, Sore throat Cardiovascular: Denies: Chest pain, Palpitations Respiratory: Denies: Dyspnea, Cough, Dyspnea on exertion Gastrointestinal: Denies: Abdominal pain, Nausea, Vomiting, Diarrhea Genitourinary: Denies: Dysuria, Hematuria, Frequency Musculoskeletal: Denies: Back pain, Extremity Pain Skin: Denies: Rash, Wounds Neurological: Reports: Weakness - Generalized. Denies: Headache, Numbness Physical Exam Vital Signs/Narrative: Vital Signs Temp Pulse Resp BP Pulse Ox 03/09/20 13:29 72 20 H 165/42 H 98 03/09/20 13:02 98.2 F 71 22 H 177/37 H 97 Inital Vital Signs reviewed: Yes General: Well nourished, Well developed, No Acute Distress Head: Normocephalic, Atraumatic Eyes: Perrl, EOMI ENT: Moist mucous membranes, No rhinorrhea Neck: Supple, Nontender Cardiovascular: Regular rate, Regular rhythm, No murmurs Respiratory: No distress, CTA bilaterally, Chest nontender Abdomen: Soft, Nontender, Nondistended, Normal bowel sounds Back: Nontender, Normal Inspection Extremities: Nontender, No edema Skin: Normal color, No rash Neurological: Alert, Oriented x3, Cranial nerves II-XII grossly intact, Normal Strength, Normal Sensation Psychological: Normal affect, Normal Mood Diagnostic/Tx/Re-eval - Medical Decision Making Patient presents to the emergency room for generalized weakness. She states she is having difficulty ambulating getting up to the bathroom. She was unable to get off the toilet today. She had she is having a hard time taking care of herself and wants to be placed for rehab. Will check basic lab work at this time. Patient's lab work did not reveal a significant acute abnormality. Her potassium is high but this was hemolyzed. She did have significant difficulty getting up to the bedside toilet. I do feel patient will need rehab services. Currently working on potential placement with social work. She will be signed out due to end of shift. She otherwise has been stable throughout ED stay. She is agreeable this plan. ED Disposition - Plan for ED Patient: Diagnosis: Generalized weakness Referrals: Mayra Goodman NP, OPERATIONS ADMINISTRATOR-C [Primary Care Provider] -
[2020-03-09 14:54] LABS: Absolute Neutrophil Count 7.7 X10^3/uL (2.0-7.7); Basophil# 0.06 X10^3/uL; Basophil% 0.6 % (0-1); Eosinophil# 0.28 X10^3/uL; Eosinophils% 2.9 % (0-5); Hematocrit 40.8 % (37-47); Hemoglobin 12.6 g/dL (12.0-15.0); Lymphocyte % 9.2 % (19-41); Mean Corp Hgb Conc 30.9 g/dL (32-36); Mean Corpuscular Volume 87.4 fL (81-99); Mean Platelet Vol. 9.9 fl (6.2-12.0); Monocyte# 0.82 X10^3/uL; Monocyte% 8.4 % (0-10); NRBC Flagged by Analyzer 0 % (0-5); Neutrophil # 7.71 X10^3/uL (2.7-7.7); Neutrophil % 78.5 % (47-70); Platelet Count 162 K/mm3 (150-450); RBC Distribution Width CV 15.1 % (11.6-14.6); RBC Distribution Width SD 47.5 fl (35.1-43.9); Red Blood Count 4.67 M/mm3 (4.2-5.4); White Blood Count 9.8 K/mm3 (4.4-11.0)
[2020-03-09 15:19] LABS: Anion Gap 5 (5-15); BUN 22 mg/dL (7-18); BUN/Creat Ratio 24.7 RATIO (10-20); Chloride 108 mmol/L (98-107); Creatinine, Serum 0.89 mg/dL (0.55-1.02); EST Glomerular Filtration Rate 65 mL/min (>60); Est Glom Filt Rate - Afr Amer 79 mL/min (>60); Estimated Creatinine Clearance 48.39 ml/min; Glucose 168 mg/dL (74-106); Potassium 5.3 mmol/L (3.5-5.1); Sodium Level 140 mmol/L (136-145)
[2020-03-09 15:24] LABS: Bacteria 0 SEEN /hpf (None Seen); Mucous, Urine 0 SEEN /hpf (<or=2+); Red Blood Cells-Urine 0 SEEN /hpf (0-5); Squamous Epithelial Cells - UA 0 SEEN /hpf (5-10); White Blood Cells 0 SEEN /hpf (0-5)
[2020-03-09 15:26] LABS: Color, Urine Yellow (Yellow); Glucose, Dipstick Normal (Normal); Ketone-Dipstick Negative (Negative); Leukocyte Esterase-Dipstick 25 /ul (Negative); Nitrite-Dipstick Negative (Negative); Occult Blood-Urine Negative /ul (Negative); Protein-Dipstick Negative (Negative); Urine Clarity Clear (Clear); Urine Urobilinogen Normal (Normal)
[2020-03-09 15:32] VITALS: BP 164/90; PULSE 92; RESP 16; O2SAT 97
[2020-03-09 15:36] LABS: Urine Bilirubin Dipstick 6 mg/dL (Negative)
--- NOTE | 2020-03-09 15:36 | EKG12_ITS ---
Test Reason : Blood Pressure : / mmHG Vent. Rate : 072 BPM Atrial Rate : 072 BPM P-R Int : 156 ms QRS Dur : 088 ms QT Int : 426 ms P-R-T Axes : 028 001 049 degrees QTc Int : 466 ms Normal sinus rhythm Normal ECG Confirmed by BLANE SORTO, MILA ([id number]), assistant film editor BRAD SAMANO ([id number]) on 03/17/2020 10:12:38 AM Referred By: SILVIA/KAITLIN Confirmed By:ERIN ARGUELLES MD
--- NOTE | 2020-03-09 15:42 | RAD_ITS ---
STUDY: X-RAY CHEST REASON FOR EXAM: Female, 74 years old. PT C/O INCREASED WEAKNESS. UNABLE TO CARE FOR SELF AT HOME. TECHNIQUE: Single AP portable view of the chest. COMPARISON: 03/04/2015 FINDINGS: Poor inspiration with some bibasilar atelectasis. There is no demonstrated pleural abnormality. Normal size heart. Normal mediastinum and hudson. Normal visualized pulmonary arteries. Normal visualized aortic arch and descending thoracic aorta. Normal visualized thoracic spine. Normal visualized ribs, clavicles, and shoulders. There is no demonstrated abnormality of the visualized soft tissue structures of the upper abdomen. RAD/Chest 1 View (Portable) IMPRESSION: Poor inspiration with some bibasilar atelectasis. Electronically Signed: Marciano Yun MD at 16:02 EST Tel , Service support ,
--- NOTE | 2020-03-09 15:49 | CM.ED ---
Social Work Consult: alf placement Informant: Dr. Rivera Telephone call from patient PASSPORT worker, Jyoti Salmon ([phone]). Jyoti reports patient sent to ED due to needing shelter placement and unable to care for self in the home. Jyoti reports that patient lives alone and has been declining over the past month. Jyoti reports that patient has aide services for 4 hours Mon, Tues, Thurs, Fri. and 5 hours on Wed. Patient with no aide services on weekend. Patient is wheelchair bound and has an electric wheelchair. Patient received [employer] 5 hot and [employer] 5 frozen weekly. Patient has a medical alert button and PASSPORT services assist with medical transportation for patient to appointments. Jyoti reports that patient family has been working on deciding on shelter and working to facilitate placement from the community but patient is not able to continue to live in the community any further at this time per Jyoti's report/concerns. This forensic social worker collaborating with Dr. Rivera on case. It is now noted that patient is positive COVID. Recommendation from this forensic social worker is for patient to admit due to later in the day and positive COVID test will extended patient stay. Dr. Rivera to consult hospitalist and plan for patient to be admitted under observation for shelter placement. Telephone call to patient daughter, Roxann. Patient son-in-law, Eric answering phone. Eric confirming to have been looking into nursing homes for patient and to have contacted [facility], and [facility]. Eric reports that Roxann currently is positive for COVID (medical team updated on this) and currently Eric and Roxann are unable to assist patient in the home due to quarantine. Eric plans to speak further with patient about plan and aware that social work will continue to follow patient case and assist in facilitating discharge. This forensic social worker unable to speak with patient due to precautions. Per triage note patient is requesting ECF placement. Social Work to continue to follow. Nael KING, KALI
--- NOTE | 2020-03-09 15:56 | NURSING ---
209 OBS COVID, WEAKNESS WHITE
--- NOTE | 2020-03-09 16:05 | HP.PCM_ITS ---
Problem List (1) COVID-19 Status: Acute (2) Generalized weakness Status: Acute (3) Chronic wound of extremity Status: Chronic (4) Diabetes mellitus, type II Status: Chronic Qualifiers: Diabetes mellitus intermediate insulin use: without intermediate use Diabetes mellitus complication status: with other specified complication Qualified Cod e(s): E11.69 - Type 2 diabetes mellitus with other specified complication (5) Anxiety and depression Status: Chronic (6) HLD (hyperlipidemia) Status: Chronic Qualifiers: Hyperlipidemia type: unspecified Qualified Code(s): E78.5 - Hyperlipidemia, unspecified (7) Rheumatoid arthritis Status: Chronic Qualifiers: Rheumatoid arthritis location: unspecified site Rheumatoid factor presence: unspecified presence Qualified Code(s): M06.9 - Rheumatoid arthritis, unspecified (8) Iron deficiency anemia Status: Chronic Qualifiers: Iron deficiency anemia type: unspecified iron deficiency Qualified Code(s): D50.9 - Iron deficiency anemia, unspecified (9) Benign essential HTN Status: Chronic History of Present Illness Date of Admission: 03/09/20 Chief Complaint: Debility, weakness The patient is a 74 y/o F w/ PMHx: PAD/PVD s/p recent LLE stenting x 2 for chronic non-healing wounds, Severe RA wheelchair bound, CAD s/p remote PCI x 1, HTN, HLD, Diabetes mellitus type II, Obesity, Anxiety and Depression who presents to the [facility] ED on 03/09/20 from home where she lives alone but has had help from her Daughter but recently her daughter/ have been quarantined with COVID with fall x 2 upon day of presentation and ongoing decline over the last several weeks. She denies any recent fever, chills, nausea, emesis, abdominal pain, cough, dyspnea, headaches, alteration to sense of taste or smell. She notes having chronic intermittent diarrhea which is unchanged. She notes that she has not seen her daughter in the last 2 weeks and notes that her daughters dropped off food but was wearing a mask and gloves x 1 in the last 2 weeks. In the ED work-up included T 98.2, heart rate 71, BP 177/37, res piratory rate 22, 97% on room air, CBC with WC 9.8, hemoglobin 12.6, platelet 162 without marked shift, BMP with potassium 5.3 however noted be hemolyzed, chloride 108, BUN/creatinine 22/0.9, glucose 168, troponin less than 0.015, UA not marked appearing, chest x-ray with poor inspiration some bibasilar atelectasis otherwise no acute cardiopulmonary findings EKG was sinus rhythm with no acute evidence of ischemia. Rapid Covid testing was obtained and noted to be positive which would preclude patient from transition to care home facility readily, given patient asymptomatic nature with minimal contact PCR testing requested and pending. Past Medical History Past Medical History (Chronic Problems): Chronic Problems Chronic wound of extremity (Chronic) Diabetes mellitus, type II (Chronic) Anxiety and depression (Chronic) HLD (hyperlipidemia) (Chronic) Depression (Chronic) Type II diabetes mellitus, uncontrolled (Chronic) Coronary arteriosclerosis (Chronic) Complaint of debility and malaise (Chronic) Ckyqdus-Qqarb-Qpsni disease (Chronic) Cellulitis and abscess of foot excluding toe (Chronic) Cellulitis and abscess of leg (Chronic) Rheumatoid arthritis (Chronic) Morbid obesity (Chronic) Iron deficiency (Chronic) Iron deficiency anemia (Chronic) Benign essential HTN (Chronic) Allergies furosemide [From Lasix] Adverse Reaction (Verified 03/09/20 13:30) Vomiting Home Medications: Ambulatory Orders Medication Instructions Recorded Aspirin E.C. [Ecotrin] 81 mg PO DAILY 11/11/15 Cholecalciferol (VIT D3) [Vitamin 1,000 unit PO DAILY 11/11/15 D3] Duloxetine HCl 60 mg PO DAILY 11/11/15 Fluoxetine HCl 40 mg PO DAILY 11/11/15 Fluticasone 0.05% [Flonase Nasal 1 spray NASAL DAILY 11/11/15 [place]] Leflunomide [Arava] 20 mg PO DAILY 11/11/15 Levothyroxine Sodium [Levoxyl] 100 mcg PO DAILY 11/11/15 Magnesium Oxide [Mag-Ox 400] 400 mg PO TID 11/11/15 Oxycodone HCl/Acetaminophen 1 tablet PO 4X/DAY PRN 11/11/15 [Percocet 7.5-325 mg Tablet] Pravastatin [Pravachol] 40 mg PO QHS 11/11/15 Pregabalin [Lyrica] 100 mg PO BID 11/11/15 Quinapril HCl [Accupril] 40 mg PO DAILY 11/11/15 Zolpidem Tartrate [Ambien] 10 mg PO QHS 11/11/15 metFORMIN HCl [Glucophage] 500 mg PO BIDCM 11/11/15 Clopidogrel Bisulfate [Clopidogrel] 75 mg PO DAILY 02/20/19 Amlodipine [Norvasc] 5 mg PO DAILY #0 02/24/19 Metoprolol Succinate 100 mg PO DAILY #0 02/24/19 Pregabalin [Lyrica] 150 mg PO QHS 02/24/19 Etodolac 500 mg PO BID 03/09/20 Sitagliptin Phosphate [Januvia] 100 mg PO DAILY 03/09/20 Surgical History: appendectomy, hysterectomy, tonsillectomy, - - PCI x1 remotely, appendectomy, hysterectomy, tonsillectomy, bilateral lower extremity foot surgeries, recent right lower extremity stenting x2 for nonhealing wounds. 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 Tobacco Use: Non-smoker Alcohol: None Drugs: None - *Family History Maternal History Items: Heart Disease, - - Peripheral artery disease. Paternal History Items: - - Patient denies any market paternal family history including heart disease, diabetes, cancer, stroke. Review of Systems Constitutional: Reports: Weakness, Fatigue. Denies: Anorexia, Chills, Fever, Malaise, Weight Change HEENT: Denies: Head Aches, Sinus Congestion, Sinus Drainage Cardiovascular: Denies: Chest Pain, Palpitations Respiratory: Denies: Cough, Shortness of Breath, Shortness of breath at rest, Shortness of breath upon exertion, Sputum production Gastrointestinal: Reports: Diarrhea. Denies: Abdominal Pain, Nausea, Vomiting Genitourinary: Denies: Dysuria Musculoskeletal: Reports: Back Pain, Hand Pain, Joint Pain, Leg Pain. Denies: Joint Tenderness Skin: Denies: Rash, Wounds Neurological: Reports: - - Generalized chronic weakness, wheelchair-bound secondary to severity of RA.. Denies: Focal weakness, Numbness, Tingling Psychiatric: Reports: Anxiety, Depression. Denies: Homicidal Ideations, Suicidal Ideations Hematologic/ Lymphatic: Reports: Anemia. Denies: Easy Bruising, Easy Bleeding VTE Information - Inpt Only VTE Present on Admission: No VTE Mechan Device Prophylaxis: SCD's VTE Pharm Prophylaxis ordered?: Yes Patient Problems: Active and Suspected Problems Generalized weakness (Acute) Subjective: Patient seated upright in the ED bed, no acute distress, mildly fatigued appearing. Objective: Physical Examination: General: awake, alert, oriented x 3 and cooperative, seated upright in the ED bed in no apparent distress. Skin: normal color, turgor, no icterus, cyanosis except noted occasional abrasion to upper extremities, bilateral lower extremities with chronic wounds, left lower extremity status post several amputations, some scabs present, no drainage, no erythema, right lower extremity with chronic distal toe wounds, evidence of prior amputations, no significant discharge, no periwound erythema, blister to the right lateral fifth region. HEENT: AT/NC, EOMI, PERRLA, minimally dry MM, no carotid bruits or JVD noted. Lungs: Diminished breath sounds, greater bases, moderate effort, no rales, ronchi or wheezing. Heart: Regular rate and rhythm; no gallop, rub audible. Abdomen: soft, obese, NTTP, ND, normal BS, no HSM. Extremities: no cyanosis, clubbing, or edema, significant RA with deformities and see skin. Neurological: patient awake, alert, oriented as noted; cognitive function suspect baseline intact; pupils equally reactive to light and accomodation; cranial nerves II-XII grossly normal, moving all 4 extremities but severely limited given severe RA, no focal deficits, strength severely globally decreased secondary to acute presentation and underlying comorbidities. Psychiatric: affect appears mildly fatigued otherwise normal, no acute evidence of depressive or anxiety feelings. - Physical Exam Vitals/I&O's: Vital Signs Temp Pulse Resp BP Pulse Ox 98.2 F 92 16 164/90 H 97 03/09/20 13:02 03/09/20 15:32 03/09/20 15:32 03/09/20 15:32 03/09/20 15:32 Oxygen Delivery Method Room Air Weight: 201 lb 4.513 oz Body Mass Index (BMI) 33.5 Microbiology Past 72 Hours 03/09/20 14:10 Mucosa - Nose SARS-CoV-2 Antigen (Rapid) - Final SARS-CoV-2 (COVID 19) Laboratory Results 03/09/20 14:10: WBC Cancelled, Corrected WBC Cancelled, RBC Cancelled, Hgb Cancelled, Hct Cancelled, MCV Cancelled, MCH Cancelled, MCHC Cancelled, RDW Std Deviation Cancelled, RDW Coeff of Kavon Cancelled, Plt Count Cancelled, MPV Cancelled, Immature Gran % (Auto) Cancelled, Neut % (Auto) Cancelled, Lymph % (Auto) Cancelled, [place] % (Auto) Cancelled, Eos % (Auto) Cancelled, Baso % (Auto) Cancelled, Absolute Neuts (auto) Cancelled, Absolute Lymphs (auto) Cancelled, Total Counted Cancelled, Neutrophils % (Manual) Cancelled, Band Neutrophils % Cancelled, Lymphocytes % (Manual) Cancelled, Monocytes % (Manual) Cancelled, Eosinophils % (Manual) Cancelled, Basophils % (Manual) Cancelled, Metamyelocytes % Cancelled, Myelocytes % Cancelled, Promyelocytes % Cancelled, Blast Cells % Cancelled, Plasma Cell % (Manual) Cancelled, Other Cells % Cancelled, Nucleated RBC % Cancelled, Nucleated RBCs/100 WBC Cancelled, Differential Comment Cancelled, Diff Path Review Cancelled, Hypersegmented Neuts Cancelled, Atypical Lymphocytes Cancelled, Reactive Lymphocytes Cancelled, Smudge Cells Cancelled, Toxic Granulation Cancelled, Toxic Vacuolation Cancelled, Dohle Bodies Cancelled, Maura Rods Cancelled, Platelet Estimate Cancelled, Plt Morphology Comment Cancelled, RBC Morphology Cancelled, Polychromasia Cancelled, Hypochromasia Cancelled, Poikilocytosis Cancelled, Basophilic Stippling Cancelled, Anisocytosis Cancelled, Microcytosis Cancelled, Macrocytosis Cancelled, Spherocytes Cancelled, Sickle Cells Cancelled, Target Cells Cancelled, Tear Drop Cells Cancelled, Ovalocytes Cancelled, Stomatocytes Cancelled, Ann-Goldenrod Bodies Cancelled, [place] Cells Cancelled, Bite Cells Cancelled, Crenated Cell Cancelled, Acanthocytes (Spur) Cancelled, Rouleaux Cancelled, Schistocytes Cancelled 03/09/20 14:10: Sodium Cancelled, Potassium Cancelled, Chloride Cancelled, Carbon Dioxide Cancelled, Anion Gap Cancelled, BUN Cancelled, Creatinine Cancelled, Estim Creat Clear Calc Cancelled, Est GFR (MDRD) Af Amer Cancelled, Est GFR (MDRD) Non-Af Cancelled, BUN/Creatinine Ratio Cancelled, Glucose Cancelled, Calcium Cancelled, Troponin I Cancelled 03/09/20 14:45: Sodium 140, Potassium 5.3 H, Chloride 108 H, Carbon Dioxide 27.0, Anion Gap 5, BUN 22 H, Creatinine 0.89, Estim Creat Clear Calc 48.39, Est GFR (MDRD) Af Amer 79, Est GFR (MDRD) Non-Af 65, BUN/Creatinine Ratio 24.7 H, Glucose 168 H, Calcium 9.0, Troponin I < 0.015 03/09/20 14:45: WBC 9.8, RBC 4.67, Hgb 12.6, Hct 40.8, MCV 87.4, MCH 27.0, MCHC 30.9 L, RDW Std Deviation 47.5 H, RDW Coeff of Kavon 15.1 H, Plt Count 162, MPV 9.9, Immature Gran % (Auto) 0.400, Neut % (Auto) 78.5 H, Lymph % (Auto) 9.2 L, [place] % (Auto) 8.4, Eos % (Auto) 2.9, Baso % (Auto) 0.6, Absolute Neuts (auto) 7.7, Absolute Lymphs (auto) 0.90, Nucleated RBC % 0 03/09/20 15:15: Urine Color Yellow, Urine Clarity Clear, Urine pH 6.0, Ur Specific [place] 1.010, Urine Protein Negative, Urine Glucose (UA) Normal, Urine Ketones Negative, Urine Occult Blood Negative, Urine Nitrite Negative, Urine Bilirubin 6 H, Urine Urobilinogen Normal, Ur Leukocyte Esterase 25 H, Urine RBC 0 SEEN, Urine WBC 0 SEEN, Ur Squamous Epith Cells 0 SEEN, Urine Bacteria 0 SEEN, Urine Mucus 0 SEEN Assessment/Plan All Active Problems Encephalopathy acute (Acute) Generalized weakness (Acute) COVID-19 (Acute) Confusion (Acute) The patient is a 74 y/o F w/ PMHx: PAD/PVD s/p recent LLE stenting x 2 for chronic non-healing wounds, Severe RA wheelchair bound, CAD s/p remote PCI x 1, HTN, HLD, Diabetes mellitus type II, Obesity, Anxiety and Depression who presents to the [facility] ED on 03/09/20 from home where she lives alone but has had help from her Daughter but recently her daughter/ have been quarantined with COVID with fall x 2 upon day of presentation and ongoing decline over the last several weeks. 1. Debility, weakness, frequent falls complicated by underlying severe rheumatoid arthritis and wheelchair-bound status, ? Acute Viral Syndrome, COVID- 19: Patient does have family members that have been affected and are in quarantine but per description has not been around them and has not had high risk factor. Rapid testing was positive in the ED however given this limitation to patient's ability to transition to care home facility will concurrently request PCR. Will admit to the Covid unit pending this testing, maintain on fall precautions, if Covid PCR testing is positive will obtain routine Covid panel including procalcitonin, CRP, CPK, Ferritin, LDH, d-dimer, continue supportive care including q 2 hour turning including prone given no prone bed availability and judicious hydration, closely monitor for worsening st atus for ARDS and multiorgan failure in addition to plan ID consultation. Will obtain PT/OT, CM consultations for discharge planning. 2. CAD: s/p remote PCI x 1, continue aspirin, Plavix, statin, metoprolol, quinapril regimen. 3. Chronic BL LE foot wounds, R > L: Will consult wound RN, continue local dressing care, continue regimen for recent RLE stenting as noted. 4. PAD/PVD: Recent RLE stenting x 2 secondary to chronic non-healing wounds, continue asa, plavix, statin, HTN regimen, DM interventions as noted. 5. Hypertension: Continue home regimen including Norvasc, metoprolol, quinapril with hold parameters, PRN hydralazine. 6. Hyperlipidemia: Continue home statin regimen. 7. Obesity: Weight loss and lifestyle changes encouraged. 8. Anxiety and depression: We will continue patient home duloxetine regimen. 9. Diabetes mellitus type II: Hold oral home regimen, ADA diet, accu checks w/ ISS. 10. Severe rheumatoid arthritis: Continue patient home arava regimen. 11. DVT Prophylaxis: SCDs, lovenox. 12. CODE status: Patient CHAY is her daughter and living will is currently in place. Discussed CODE status at length including difference between FULL code, DNR-CCA and DNR-CC status. Following discussions about the differences in these status, requested Full Code status1. Advanced Care Planning Face to Face Time: 16 minutes. OBSV E&M: [id number] Initial observation care L3 Procedures: [id number] Advncd Care Plan 30 Min
[2020-03-09 16:53] VITALS: BMI 32.5
[2020-03-09 16:57] VITALS: BP 130/69; PULSE 68; RESP 16; TEMP 36.9; O2SAT 96
--- NOTE | 2020-03-09 16:57 | EKG12_ITS ---
Test Reason : ARRYTHMIA Blood Pressure : / mmHG Vent. Rate : 070 BPM Atrial Rate : 070 BPM P-R Int : 160 ms QRS Dur : 082 ms QT Int : 438 ms P-R-T Axes : 033 002 050 degrees QTc Int : 473 ms Normal sinus rhythm Normal ECG When compared with ECG of 09-MAR-2020 16:10, MANUAL COMPARISON REQUIRED, DATA IS UNCONFIRMED Confirmed by BLANE SORTO, MILA ([id number]), film or videotape editor JIM LEMA ([id number] on 03/18/2020 12:30:50 PM Referred By: SILVIA Confirmed By:ERIN ARGUELLES MD
[2020-03-09 17:16] VITALS: BMI 32.5
[2020-03-09 17:35] LABS: Bedside Glucose 152 mg/dL (70-110)
[2020-03-09] MEDS: oxyCODONE 5 MG Tablet 7.5 MG PO ×2 (17:35→21:34)
[2020-03-09] MEDS: Insulin Lispro 100 UNIT/ML INSULN.PEN SC ×2 (17:46→21:44)
[2020-03-09] MEDS: Glucerna Shake 120 ML LIQUID PO ×2 (17:46→21:44)
[2020-03-09 17:55] VITALS: O2SAT 96
[2020-03-09 19:44] VITALS: BP 143/93; PULSE 75; RESP 18; TEMP 36.8; O2SAT 93
[2020-03-09] MEDS: Zolpidem Tartrate 5 MG Tablet PO (21:35)
[2020-03-09] MEDS: Pravastatin 40 MG Tablet PO (21:35)
[2020-03-09] MEDS: Pregabalin 75 MG Capsule 150 MG PO (21:35)
[2020-03-09] MEDS: Etodolac 300 MG Capsule PO (21:35)
[2020-03-09] MEDS: Etodolac 200 MG Capsule PO (21:35)
[2020-03-09 22:26] LABS: Bedside Glucose 193 mg/dL (70-110)
[2020-03-10 00:33] VITALS: BP 140/55; PULSE 62; RESP 18; TEMP 36.7; O2SAT 92
[2020-03-10] MEDS: oxyCODONE 5 MG Tablet 7.5 MG PO ×3 (05:01→16:39)
[2020-03-10 05:31] VITALS: BP 158/69; PULSE 69; RESP 18; TEMP 36.6; O2SAT 93
[2020-03-10 05:41] LABS: Bedside Glucose 130 mg/dL (70-110)
[2020-03-10 06:45] LABS: Absolute Lymphocyte Count 1.38 X10^3/uL (0.83-4.51); Absolute Neutrophil Count 5.3 X10^3/uL (2.0-7.7); Basophil# 0.06 X10^3/uL; Basophil% 0.8 % (0-1); Eosinophil# 0.37 X10^3/uL; Eosinophils% 4.7 % (0-5); Hematocrit 41.9 % (37-47); Hemoglobin 12.5 g/dL (12.0-15.0); Lymphocyte # 1.38 X10^3/ul (4.0); Lymphocyte % 17.5 % (19-41); Mean Corp Hgb Conc 29.8 g/dL (32-36); Mean Corpuscular Hgb 26.3 pg (27.0-32.0); Mean Corpuscular Volume 88.2 fL (81-99); Mean Platelet Vol. 10.5 fl (6.2-12.0); Monocyte# 0.81 X10^3/uL; Monocyte% 10.3 % (0-10); NRBC Flagged by Analyzer 0 % (0-5); Neutrophil # 5.25 X10^3/uL (2.7-7.7); Neutrophil % 66.3 % (47-70); Platelet Count 169 K/mm3 (150-450); RBC Distribution Width SD 49.1 fl (35.1-43.9); Red Blood Count 4.75 M/mm3 (4.2-5.4); White Blood Count 7.9 K/mm3 (4.4-11.0)
[2020-03-10 07:16] LABS: ALB/GLOB Ratio 0.9 RATIO (0.9-2.4); AST(SGOT) 11 U/L (15-37); Alanine Aminotransfer ALT/SGPT 10 U/L (13-56); Albumin, Serum 2.7 g/dL (3.2-5.0); Alkaline Phosphatase 80 U/L (45-117); Anion Gap 7 (5-15); BUN 19 mg/dL (7-18); BUN/Creat Ratio 25.7 RATIO (10-20); Calcium,Total 8.9 mg/dL (8.5-10.1); Chloride 105 mmol/L (98-107); Creatinine, Serum 0.74 mg/dL (0.55-1.02); EST Glomerular Filtration Rate 81 mL/min (>60); Est Glom Filt Rate - Afr Amer 98 mL/min (>60); Estimated Creatinine Clearance 43.07 ml/min; Globulin 2.9 g/dL (2.2-4.2); Glucose 136 mg/dL (74-106); Potassium 4.7 mmol/L (3.5-5.1); Protein, Total 5.6 g/dL (6.4-8.2); Sodium Level 140 mmol/L (136-145)
--- NOTE | 2020-03-10 07:34 | PN_ITS ---
Patient Problems: Active and Suspected Problems Generalized weakness (Acute) COVID-19 (Acute) Reason for Visit: Debility Subjective: Patient is a 74-year-old lady with significant comorbidities including severe rheumatoid arthritis with significant debility resulting in patient being wheelchair-bound who was brought to the emergency department after falls. Patient apparently had a rapid antigen test for Covid which was positive her PCR test however came back negative. Objective: GENERAL: cooperative HEENT: Atraumatic; alopecia EYES; Anicteric, Normal Conjunctiva NECK; supple, normal thyroid, RESPIRATORY: Diminished to auscultation CARDIOVASCULAR: Regular S1 S2, GI: soft, normoactive bowel sounds, : No Renal angle tenderness; EXTREMITIES: No edema, no clubbing, MUSCULOSKELETAL: no muscle waisting NEURO: Awake; no lateralizing signs. SKIN: No Rash PSYCH; Flat affect Vitals/I&O's: Vital Signs Temp Pulse Resp BP Pulse Ox 97.9 F 69 18 158/69 H 93 03/10/20 05:31 03/10/20 05:31 03/10/20 05:31 03/10/20 05:31 03/10/20 05:31 Oxygen Delivery Method Room Air Weight: 88.723 kg Body Mass Index (BMI) 32.5 Intake and Output for Last 24 Hours 03/08/20 03/09/20 03/10/20 23:59 23:59 23:59 Intake Total 640 / 640 Output Total 450 / 450 Balance 190 / 190 Microbiology Past 72 Hours 03/09/20 14:10 Mucosa - Nose SARS-CoV-2 Antigen (Rapid) - Final SARS-CoV-2 (COVID 19) Laboratory Results 03/09/20 14:10: WBC Cancelled, Corrected WBC Cancelled, RBC Cancelled, Hgb Cancelled, Hct Cancelled, MCV Cancelled, MCH Cancelled, MCHC Cancelled, RDW Std Deviation Cancelled, RDW Coeff of Kavon Cancelled, Plt Count Cancelled, MPV Cancelled, Immature Gran % (Auto) Cancelled, Neut % (Auto) Cancelled, Lymph % (Auto) Cancelled, [place] % (Auto) Cancelled, Eos % (Auto) Cancelled, Baso % (Auto) Cancelled, Absolute Neuts (auto) Cancelled, Absolute Lymphs (auto) Cancelled, Total Counted Cancelled, Neutrophils % (Manual) Cancelled, Band Neutrophils % Cancelled, Lymphocytes % (Manual) Cancelled, Monocytes % (Manual) Cancelled, Eosinophils % (Manual) Cancelled, Basophils % (Manual) Cancelled, Metamyelocytes % Cancelled, Myelocytes % Cancelled, Promyelocytes % Cancelled, Blast Cells % Cancelled, Plasma Cell % (Manual) Cancelled, Other Cells % Cancelled, Nucleated RBC % Cancelled, Nucleated RBCs/100 WBC Cancelled, Differential Comment Cancelle d, Diff Path Review Cancelled, Hypersegmented Neuts Cancelled, Atypical Lymphocytes Cancelled, Reactive Lymphocytes Cancelled, Smudge Cells Cancelled, Toxic Granulation Cancelled, Toxic Vacuolation Cancelled, Dohle Bodies Cancelled, Maura Rods Cancelled, Platelet Estimate Cancelled, Plt Morphology Comment Cancelled, RBC Morphology Cancelled, Polychromasia Cancelled, Hypochromasia Cancelled, Poikilocytosis Cancelled, Basophilic Stippling Cancelled, Anisocytosis Cancelled, Microcytosis Cancelled, Macrocytosis Cancelled, Spherocytes Cancelled, Sickle Cells Cancelled, Target Cells Cancelled, Tear Drop Cells Cancelled, Ovalocytes Cancelled, Stomatocytes Cancelled, [place] Bodies Cancelled, [place] Cells Cancelled, Bite Cells Cancelled, Crenated Cell Cancelled, Acanthocytes (Spur) Cancelled, Rouleaux Cancelled, Schistocytes Cancelled 03/09/20 14:10: Sodium Cancelled, Potassium Cancelled, Chloride Cancelled, Carbon Dioxide Cancelled, Anion Gap Cancelled, BUN Cancelled, Creatinine Cancelled, Estim Creat Clear Calc Cancelled, Est GFR (MDRD) Af Amer Cancelled, Est GFR (MDRD) Non-Af Cancelled, BUN/Creatinine Ratio Cancelled, Glucose Cancelled, Calcium Cancelled, Troponin I Cancelled 03/09/20 14:45: Sodium 140, Potassium 5.3 H, Chloride 108 H, Carbon Dioxide 27.0, Anion Gap 5, BUN 22 H, Creatinine 0.89, Estim Creat Clear Calc 48.39, Est GFR (MDRD) Af Amer 79, Est GFR (MDRD) Non-Af 65, BUN/Creatinine Ratio 24.7 H, Glucose 168 H, Calcium 9.0, Troponin I < 0.015 03/09/20 14:45: WBC 9.8, RBC 4.67, Hgb 12.6, Hct 40.8, MCV 87.4, MCH 27.0, MCHC 30.9 L, RDW Std Deviation 47.5 H, RDW Coeff of Kavon 15.1 H, Plt Count 162, MPV 9.9, Immature Gran % (Auto) 0.400, Neut % (Auto) 78.5 H, Lymph % (Auto) 9.2 L, [place] % (Auto) 8.4, Eos % (Auto) 2.9, Baso % (Auto) 0.6, Absolute Neuts (auto) 7.7, Absolute Lymphs (auto) 0.90, Nucleated RBC % 0 03/09/20 14:45: Magnesium 2.0 03/09/20 15:15: Urine Color Yellow, Urine Clarity Clear, Urine pH 6.0, Ur Specific [place] 1.010, Urine Protein Negative, Urine Glucose (UA) Normal, Urine Ketones Negative, Urine Occult Blood Negative, Urine Nitrite Negative, Urine Bilirubin 6 H, Urine Urobilinogen Normal, Ur Leukocyte Esterase 25 H, Urine RBC 0 SEEN, Urine WBC 0 SEEN, Ur Squamous Epith Cells 0 SEEN, Urine Bacteria 0 SEEN, Urine Mucus 0 SEEN 03/09/20 17:09: POC Glucose 152 H 03/09/20 17:51: COVID-19 (PAMELA) Not Detected 03/09/20 21:39: POC Glucose 193 H 03/10/20 05:00: POC Glucose 130 H 03/10/20 05:40: WBC 7.9, RBC 4.75, Hgb 12.5, Hct 41.9, MCV 88.2, MCH 26.3 L, MCHC 29.8 L, RDW Std Deviation 49.1 H, RDW Coeff of Kavon 15.0 H, Plt Count 169, MPV 10.5, Immature Gran % (Auto) 0.400, Neut % (Auto) 66.3, Lymph % (Auto) 17.5 L, [place] % (Auto) 10.3 H, Eos % (Auto) 4.7, Baso % (Auto) 0.8, Absolute Neuts (auto) 5.3, Absolute Lymphs (auto) 1.38, Nucleated RBC % 0 03/10/20 05:40: Sodium 140, Potassium 4.7, Chloride 105, Carbon Dioxide 28.0, Anion Gap 7, BUN 19 H, Creatinine 0.74, Estim Creat Clear Calc 43.07, Est GFR (MDRD) Af Amer 98, Est GFR (MDRD) Non-Af 81, BUN/Creatinine Ratio 25.7 H, Glucose 136 H, Calcium 8.9, Total Bilirubin 0.70, AST 11 L, ALT 10 L, Alkaline Phosphatase 80, Total Protein 5.6 L, Albumin 2.7 L, Globulin 2.9, Albumin/Globulin Ratio 0.9 Current Medications Acetaminophen (Acetaminophen 325 Mg Tablet) 650 mg PO Q6H PRN PRN PRN Reason: Pain Score 1-10/Temp > 100.7 F Al Hydroxide/Mg Hydroxide (Mag Hydrox/Al Hydrox/Simeth 30 Ml Udc) 30 ml PO Q6H PRN PRN PRN Reason: Gastric Burning Albuterol Sulfate (Albuterol 2.5 Mg/3 Ml Vial.Neb.) 2.5 mg INHALATION Q2H PRN PRN PRN Reason: Dyspnea, wheezing Amlodipine Besylate (Amlodipine 5 Mg Tablet) 5 mg PO DAILY [facility] Aspirin (Aspirin E.C. 81 Mg Tablet) 81 mg PO DAILY [facility] Cholecalciferol (Cholecalciferol (Vit D3) 1,000 Unit (25mcg)) 1,000 unit PO DAILY [facility] Clopidogrel Bisulfate (Clopidogrel Bisulfate 75 Mg Tablet) 75 mg PO DAILY [facility] Duloxetine HCl (Duloxetine Hcl 60 Mg Capsule) 60 mg PO DAILY [facility] Enoxaparin Sodium (Enoxaparin 40 Mg/0.4 Ml Syringe) 40 mg SC DAILY [facility] Etodolac (Etodolac 200 Mg Capsule) 200 mg PO BID [facility] Last Admin: 03/09/20 21:35 Dose: 200 mg Documented by: Etodolac (Etodolac 300 Mg Capsule) 300 mg PO BID [facility] Last Admin: 03/09/20 21:35 Dose: 300 mg Documented by: Fluoxetine HCl (Fluoxetine 20 Mg Capsule) 40 mg PO DAILY [facility] Guaifenesin (Guaifenesin 10 Ml Udc (200mg/10ml)) 20 ml PO Q4H PRN PRN PRN Reason: COUGH Hydralazine HCl (Hydralazine 20 Mg/Ml Vial) 10 mg IV Q4H PRN PRN PRN Reason: SBP > 160 Insulin Human Lispro (Insulin Lispro 100 Unit/Ml Insuln.Pen) 0 unit SC [facility]; Protocol Last Admin: 03/10/20 05:00 Dose: Not Given Documented by: Leflunomide (Leflunomide 10 Mg Tablet) 20 mg PO DAILY [facility] Levothyroxine Sodium (Levothyroxine 100 Mcg Tablet) 100 mcg PO DAILY [facility] Lisinopril (Lisinopril 40 Mg Tablet) 40 mg PO DAILY [facility] Metoprolol Succinate (Metoprolol(Xl)Succ 100 Mg Tablet) 100 mg PO DAILY [facility] Morphine Sulfate (Morphine 2 Mg/Ml Syringe) 2 mg IV Q3H PRN PRN PRN Reason: Pain Score 6-10 Nitroglycerin (Nitroglycerin (Inpatient Use) 0.4 Mg Tab.Subl) 0.4 mg SUBLINGUAL Q5M PRN PRN Reason: CARDIAC/CHEST PAIN Nystatin (Nystatin Powder 15gm Bottle) 1 applic TOPICAL BID [facility]; Protocol Ondansetron HCl (Ondansetron 4 Mg/2 Ml Vial) 4 mg IV Q8H PRN PRN PRN Reason: NAUSEA/VOMITING Oxycodone HCl (Oxycodone 5 Mg Tablet) 7.5 mg PO 4X/DAY PRN PRN Reason: pain Last Admin: 03/10/20 05:01 Dose: 7.5 mg Documented by: Pravastatin Sodium (Pravastatin 40 Mg Tablet) 40 mg PO QHS [facility] Last Admin: 03/09/20 21:35 Dose: 40 mg Documented by: Pregabalin (Pregabalin 75 Mg Capsule) 150 mg PO QHS [facility] Last Admin: 03/09/20 21:35 Dose: 150 mg Documented by: Pregabalin (Pregabalin 50 Mg Capsule) 100 mg PO DAILY [facility] Prochlorperazine Edisylate (Prochlorperazine 10 Mg/2 Ml Vial) 5 mg IV Q4H PRN PRN PRN Reason: Breakthrough nausea/vomiting Sodium Chloride (0.9% Saline Lock 10 Ml Syringe) 10 - 40 ml IV UD PRN PRN Reason: SALINE FLUSH Throat Lozenges (Benzocaine/Menthol 1 Lozenge) 1 lozenge MUCOUS MEM Q2H PRN PRN PRN Reason: SORE THROAT Zolpidem Tartrate (Zolpidem Tartrate 5 Mg Tablet) 5 mg PO QHS [facility] Last Admin: 03/09/20 21:35 Dose: 5 mg Documented by: STROKE Vital Signs/Narrative: Vital Signs Temp Pulse Resp BP Pulse Ox 03/10/20 05:31 97.9 F 69 18 158/69 H 93 Medical Necessity - Tobacco Use Smoking Status: Former smoker Tobacco Use: Cigarettes Assessment/Plan All Active Problems Encephalopathy acute (Acute) Generalized weakness (Acute) COVID-19 (Acute) Confusion (Acute) Patient is a 74-year-old lady with significant comorbidities including severe rheumatoid arthritis with significant debility resulting in patient being wheelchair-bound who was brought to the emergency department after falls. Patient apparently had a rapid antigen test for Covid which was positive her PCR test however came back negative. 1. Physical deconditioning - Requested for PT OT eval and social group worker to assist with discharge planning 2. False positive COVID-19 antigen test Confirmatory test with PCR came back negative patient has been placed in contact and droplet isolation on admission subsequently discontinued transferred to regular nursing floor 3. Bilateral lower extremity foot wounds ?Consult placed wound care nurse 4. Coronary artery disease ?With previous PCI; currently on recommended medications discontinued 5. Peripheral arterial disease ?With stenting of the right lower extremity 6. Severe rheumatoid arthritis with subsequent debility ?Patient is on Areva continued 7. Hypertension - Blood pressure controlled, home medications continued with dose adjustment as needed 8. Dyslipidemia -Patient is on statin therapy, continued at home dose 9. Hypothyroidism - Patient is on levothyroxine home dose continued 10. Diabetes mellitus type II -patient's oral hypoglycemics held. -Placed on long acting insulin, Accu-Cheks a.c. and at bedtime and covered with sliding scale insulin 12. Depression with anxiety ?Patient is on duloxetine did continue 12. DVT prophylaxis ?Lovenox OBSV E&M: 57535 Observ/hosp same date L3
[2020-03-10 10:30] VITALS: O2SAT 94
[2020-03-10] MEDS: Pregabalin 50 MG Capsule 100 MG PO (10:44)
[2020-03-10] MEDS: Lisinopril 40 MG Tablet PO (10:45)
[2020-03-10 10:46] VITALS: PULSE 80
[2020-03-10] MEDS: Metoprolol(XL)Succ 100 MG Tablet PO (10:46)
[2020-03-10] MEDS: FLUoxetine 20 MG Capsule 40 MG PO (10:46)
[2020-03-10] MEDS: DULoxetine Hcl 60 MG Capsule PO (10:46)
[2020-03-10] MEDS: Etodolac 300 MG Capsule PO (10:46)
[2020-03-10] MEDS: Etodolac 200 MG Capsule PO (10:46)
[2020-03-10] MEDS: Levothyroxine 100 MCG Tablet PO (10:46)
[2020-03-10] MEDS: Aspirin E.C. 81 MG Tablet PO (10:46)
[2020-03-10] MEDS: Enoxaparin 40 MG/0.4 ML Syringe SC (10:47)
[2020-03-10] MEDS: Clopidogrel Bisulfate 75 MG Tablet PO (10:47)
[2020-03-10] MEDS: amLODIPine 5 MG Tablet PO (10:47)
[2020-03-10] MEDS: Nystatin Powder 15gm Bottle 1 APPLIC TOPICAL (10:48)
[2020-03-10] MEDS: Leflunomide 10 MG TABLET 20 MG PO (10:48)
--- NOTE | 2020-03-10 10:56 | NURSING ---
Was asked to see patient for chronic wounds to bilateral feet. patient follows with Dr Child. the wounds to the left foot appear healed. there are 3 small wounds noted to the right foot that are all dry with thin scabs noted. no sign of infection noted. pt states she has been placing Aquacel AG to wounds at home. educated patient that the Aquacel AG will not really be effective with dry wounds. patient has very poor blood flow bilaterally. wounds have been debrided by Dr Child during visits. all appear stable at this time. will monitor, but no current need for wound care at this time. Did not take wound photos d/t patient being in enhanced droplet precautions.
[2020-03-10 11:05] VITALS: BP 153/75; PULSE 71; RESP 18; TEMP 36.4; O2SAT 92
--- NOTE | 2020-03-10 11:51 | CASEMGMT ---
Addendum entered by Renata Damon 03/10/20 13:43: Social Work SW spoke with [facility] and they do have a bed available, no return call from [facility] and SW attempted to call again with no response. SW updated pt and she would like referral faxed to [facility]. Referral information faxed and Sharri at the [facility] updated. Phone call to pt dgt and updated that pt choosing [facility] and referral sent. Dgt agreeable. Will await determination if they can accept pt. SHANTA Brasher Original Note: Social Work Reviewed information from ED SW, pt and family seeking SNF placement. SW spoke with pt dgt Roxann who states pt has been able to manage at home with assistance of aids until recently. Pt told family yesterday that, I can't stay here another day. Pt family would prefer [facility] but also interested in [facility] and [facility]. SW informed pt dgt that pt is decision maker and SW will inquire with pt what her wishes are. Phone call to pt and pt is agreeable to SNF placement and states she cannot move her hands or walk and cannot stay at home alone. MOIZ discussed NH options with pt and pt choosing [facility] and [facility]. Phone call placed to [facility] and [facility] and left messages. Phone call to Cheri at [facility] and they do have rooms available and would accept a referral. MOIZ will wait to hear back from other facilities and will notify pt of available options and proceed with referral. SHANTA Brasher
--- NOTE | 2020-03-10 12:23 | MRI_ITS ---
We are attempting to reach an attending provider to discuss findings. An addendum with communication details will be sent when the communication is complete. STUDY: MRI CERVICAL SPINE WITHOUT CONTRAST REASON FOR EXAM: Female, 74 years old. stenosis, frequent falls, chronic neck pain, numbess bilat hands TECHNIQUE: Standardized fat and water weighted pulse sequences were obtained in the sagittal and axial planes. COMPARISON: 07/20/2015 FINDINGS: Normal foramen magnum and brainstem-cervical cord junction. Normal craniovertebral junction. Normal anterior atlantoaxial articulation. Normal odontoid process. Normal cervical lordosis. Normal vertebral bodies and posterior osseous elements. C2-3: Severe left facet hypertrophy produces moderate left neural foraminal stenosis. Worsening moderate broad disc osteophyte complex produces moderate spinal stenosis with abutment the central spinal cord. C3-4: Moderate bilateral facet hypertrophy. Interval development of 2 mm of anterolisthesis of C3 on C4 with a large broad disc osteophyte complex produces severe spinal stenosis with effacement of the spinal cord. Associated cord edema suggestive of myelomalacia. C4-5: No change in the mild broad disc osteophyte complex produces mild spinal stenosis but no neural foraminal stenosis. C5-6: No change in the 2 mm retrolisthesis of C5 on C6 with a mild broad disc osteophyte complex produces moderate spinal stenosis with abutment of the central spinal cord and mild bilateral neural foraminal stenosis. C6-7: No change in the 2 mm retrolisthesis of C6 on C7 with a mild broad disc osteophyte complex asymmetric to the right produces moderate spinal stenosis with abutment the central spinal cord and the moderate right neural foraminal stenosis and mild left neural foraminal stenosis. C7-T1: Interval development of 2 mm of anterolisthesis of C7 on T1 with a mild broad disc osteophyte complex produces mild spinal stenosis and mild bilateral neural foraminal stenosis. Normal cervical cord. Normal visualized soft tissue structures. MRI/Spine Cervical (Routine) IMPRESSION: Worsening degenerative disc disease as described above particularly at C3/C4 with severe spinal stenosis with cord compression and myelomalacia. Electronically Signed: Marciano Yun MD at 15:19 EST Tel , Service support ,
--- NOTE | 2020-03-10 15:10 | PCM.DC ---
- Discharge Diagnoses Current Active Problems: Current Active and Chronic Problems Generalized weakness (Acute) Chronic wound of extremity (Chronic) Diabetes mellitus, type II (Chronic) Anxiety and depression (Chronic) COVID-19 (Acute) HLD (hyperlipidemia) (Chronic) Rheumatoid arthritis (Chronic) Iron deficiency anemia (Chronic) Benign essential HTN (Chronic) Allergies/Adverse Reactions: Allergies erythromycin base Allergy (Verified 03/09/20 17:53) PT UNSURE OF REACTION exenatide [From Byetta] Adverse Reaction (Verified 03/09/20 17:53) Diarrhea furosemide [From Lasix] Adverse Reaction (Verified 03/09/20 13:30) Vomiting naproxen [From Naprosyn] Adverse Reaction (Verified 03/09/20 17:54) abd pain Medications to take at Discharge Aspirin E.C. [Ecotrin] 81 mg PO DAILY 11/11/15 Duloxetine HCl 60 mg PO DAILY 11/11/15 Fluoxetine HCl 40 mg PO DAILY 11/11/15 Fluticasone 0.05% [Flonase Nasal [place]] 1 spray NASAL DAILY 11/11/15 Levothyroxine Sodium [Levoxyl] 100 mcg PO DAILY 11/11/15 Magnesium Oxide [Mag-Ox 400] 400 mg PO DAILY 11/11/15 Pravastatin [Pravachol] 20 mg PO QHS 11/11/15 Pregabalin [Lyrica] 100 mg PO DAILY 11/11/15 Quinapril HCl [Accupril] 40 mg PO DAILY 11/11/15 metFORMIN HCl [Glucophage] 500 mg PO DAILY 11/11/15 Clopidogrel Bisulfate [Clopidogrel] 75 mg PO DAILY 02/20/19 Amlodipine [Norvasc] 5 mg PO DAILY #0 02/24/19 Metoprolol Succinate 100 mg PO DAILY #0 02/24/19 Pregabalin [Lyrica] 150 mg PO QHS 02/24/19 Etodolac 500 mg PO BID 03/09/20 Sitagliptin Phosphate [Januvia] 100 mg PO DAILY 03/09/20 Spironolactone [Aldactone] 25 mg PO DAILY 03/09/20 Acetaminophen [Tylenol Tablet] 650 mg PO Q6H PRN PRN tab 03/10/20 Guaifenesin [Robitussin] 20 ml PO Q4H PRN PRN udc 03/10/20 Insulin Lispro [Humalog KwikPen] See Protocol SC ACHS insuln.pen 03/10/20 Leflunomide 20 mg PO DAILY tab 03/10/20 Mag Hydrox/Al Hydrox/Simeth [Mylanta II] 30 ml PO Q6H PRN PRN udc 03/10/20 Oxycodone HCl/Acetaminophen [Percocet 7.5-325 mg Tablet] 1 tab PO 4X/DAY PRN #8 tab 03/10/20 The following prescriptions were given: Oxycodone HCl/Acetaminophen [Percocet 7.5-325 mg Tablet] 1 tab PO 4X/DAY PRN #8 tab PRN Reason: pain Prescription Printed Primary Care Physician: Mayra Goodman BEAM DYER OPERATOR, BEAM DYER OPERATOR-C [Primary Care Provider] - Test Results: Test results from this visit will be discussed in further detail at your follow-up appointment, if applicable.
--- NOTE | 2020-03-10 15:10 | PCM.TXEXTCAR ---
- Diet 03/10/20 12:47 Diet: Cardiac: Calorie-Controlled Food consistency:: Soft & Bite Sized Liquid Consistency:: Regular/Thin Is pt able to select menu?: Yes Diet Comments: please send glucerna with meals How many daily calories?: 1800 calorie - Routine Orders/Code Status Code Status: Full Code - Wound(s) Right Great Toe Wound Type: Neuropathic/Diabetic Foot Ulcer Right Second/Third Toe Area Wound Type: Neuropathic/Diabetic Foot Ulcer Right 5th Toe Wound Type: Blister Left Heel Wound Type: Pressure Injury bilateral fingers Wound Type: scabbed - Therapies Physical Therapy: Eval and Treat Occupational Therapy: Eval and Treat - Allergies/Procedures Done in Hospital Allergies/Adverse Reactions: Allergies erythromycin base Allergy (Verified 03/09/20 17:53) PT UNSURE OF REACTION exenatide [From Byetta] Adverse Reaction (Verified 03/09/20 17:53) Diarrhea furosemide [From Lasix] Adverse Reaction (Verified 03/09/20 13:30) Vomiting naproxen [From Naprosyn] Adverse Reaction (Verified 03/09/20 17:54) abd pain - Type of Care/Length of Stay Estimated LOS: Convalescent Care Less Than 30 days Type of Care Needed: Skilled Rehab Potential: Fair Prognosis: Fair - Additional Orders/Day of Discharge Day of Discharge: 03/10/20 - Dietary and Speech Recommendations Dietitian Recommendations/Changes: Will change diet to 1800 venessa consistent cho/Cardiac diet d/t pmhx. Will provide soft consistency foods for ease of eating. - Follow Up Care Primary Care Physician: Mayra Goodman INDEPENDENT CROP CONSULTANT, INDEPENDENT CROP CONSULTANT-C [Primary Care Provider] - Please follow up with your Primary Care Physician in: IN 1-2 WEEKS
--- NOTE | 2020-03-10 15:19 | PCM.DC.SUM ---
Discharge Date and Diagnosis - Problem List Patient Problems: Active and Suspected Problems Generalized weakness (Acute) Date of Admission: 03/09/20 Date of Discharge: 03/10/20 - Primary Discharge Diagnosis Acute Problems: Active Problems Generalized weakness (Acute) - Secondary Discharge Diagnosis Chronic Problems: Chronic Problems Chronic wound of extremity (Chronic) Diabetes mellitus, type II (Chronic) Anxiety and depression (Chronic) HLD (hyperlipidemia) (Chronic) Depression (Chronic) Type II diabetes mellitus, uncontrolled (Chronic) Coronary arteriosclerosis (Chronic) Complaint of debility and malaise (Chronic) Ptlvfoq-Wmmyl-Shjyd disease (Chronic) Cellulitis and abscess of foot excluding toe (Chronic) Cellulitis and abscess of leg (Chronic) Rheumatoid arthritis (Chronic) Morbid obesity (Chronic) Iron deficiency (Chronic) Iron deficiency anemia (Chronic) Benign essential HTN (Chronic) Hospital Course and Treatment Imaging Results: 03/10/20 12:23 Spine Cervical (Routine) [MRI] Urgent Consultations 03/09/20 16:28 Consult: Onc/Wound/county administrator Routine Comment: Operations: None Summary of Care Provided: Patient is a 74-year-old lady with significant comorbidities including severe rheumatoid arthritis with significant debility resulting in patient being wheelchair-bound who was brought to the emergency department after falls. Patient apparently had a rapid antigen test for Covid which was positive her PCR test however came back negative. 1. Physical deconditioning - Requested for PT OT eval and social work assistant to assist with discharge planning -Was discharged to custodial facility once insurance precertification was obtained 2. False positive COVID-19 antigen test Confirmatory test with PCR came back negative patient has been placed in contact and droplet isolation on admission subsequently discontinued transferred to regular nursing floor 3. Bilateral lower extremity foot wounds ?Consult placed wound care nurse 4. Coronary artery disease ?With previous PCI; currently on recommended medications discontinued 5. Peripheral arterial disease ?With stenting of the right lower extremity 6. Severe rheumatoid arthritis with subsequent debility ?Patient is on Areva continued 7. Hypertension - Blood pressure controlled, home medications continued with dose adjustment as needed 8. Dyslipidemia -Patient is on statin therapy, continued at home dose 9. Hypothyroidism - Patient is on levothyroxine home dose continued 10. Diabetes mellitus type II -patient's oral hypoglycemics held. -Placed on long acting insulin, Accu-Cheks a.c. and at bedtime and covered with sliding scale insulin 12. Depression with anxiety ?Patient is on duloxetine did continue 12. DVT prophylaxis ?Lovenox Patient Problems: Active and Suspected Problems Generalized weakness (Acute) Objective: GENERAL: cooperative HEENT: Atraumatic; alopecia EYES; Anicteric, Normal Conjunctiva NECK; supple, normal thyroid, RESPIRATORY: Diminished to auscultation CARDIOVASCULAR: Regular S1 S2, GI: soft, normoactive bowel sounds, : No Renal angle tenderness; EXTREMITIES: No edema, no clubbing, MUSCULOSKELETAL: no muscle waisting NEURO: Awake; no lateralizing signs. SKIN: No Rash PSYCH; Flat affect - Physical Exam Vitals/I&O's: Vital Signs Temp Pulse Resp BP Pulse Ox 97.6 F L 71 18 153/75 H 92 03/10/20 11:05 03/10/20 11:05 03/10/20 11:05 03/10/20 11:05 03/10/20 11:05 Oxygen Delivery Method Room Air Weight: 88.723 kg Body Mass Index (BMI) 32.5 Intake and Output for Last 24 Hours 03/08/20 03/09/20 03/10/20 23:59 23:59 23:59 Intake Total 640 / 640 Output Total 450 / 450 Balance 190 / 190 Microbiology Past 72 Hours 03/09/20 14:10 Mucosa - Nose SARS-CoV-2 Antigen (Rapid) - Final SARS-CoV-2 (COVID 19) Laboratory Results 03/09/20 14:45: Sodium 140, Potassium 5.3 H, Chloride 108 H, Carbon Dioxide 27.0, Anion Gap 5, BUN 22 H, Creatinine 0.89, Estim Creat Clear Calc 48.39, Est GFR (MDRD) Af Amer 79, Est GFR (MDRD) Non-Af 65, BUN/Creatinine Ratio 24.7 H, Glucose 168 H, Calcium 9.0, Troponin I < 0.015 03/09/20 14:45: Magnesium 2.0 03/09/20 15:15: Urine Color Yellow, Urine Clarity Clear, Urine pH 6.0, Ur Specific [place] 1.010, Urine Protein Negative, Urine Glucose (UA) Normal, Urine Ketones Negative, Urine Occult Blood Negative, Urine Nitrite Negative, Urine Bilirubin 6 H, Urine Urobilinogen Normal, Ur Leukocyte Esterase 25 H, Urine RBC 0 SEEN, Urine WBC 0 SEEN, Ur Squamous Epith Cells 0 SEEN, Urine Bacteria 0 SEEN, Urine Mucus 0 SEEN 03/09/20 17:09: POC Glucose 152 H 03/09/20 17:51: COVID-19 (PAMELA) Not Detected 03/09/20 21:39: POC Glucose 193 H 03/10/20 05:00: POC Glucose 130 H 03/10/20 05:40: WBC 7.9, RBC 4.75, Hgb 12.5, Hct 41.9, MCV 88.2, MCH 26.3 L, MCHC 29.8 L, RDW Std Deviation 49.1 H, RDW Coeff of Kavon 15.0 H, Plt Count 169, MPV 10.5, Immature Gran % (Auto) 0.400, Neut % (Auto) 66.3, Lymph % (Auto) 17.5 L, [place] % (Auto) 10.3 H, Eos % (Auto) 4.7, Baso % (Auto) 0.8, Absolute Neuts (auto) 5.3, Absolute Lymphs (auto) 1.38, Nucleated RBC % 0 03/10/20 05:40: Sodium 140, Potassium 4.7, Chloride 105, Carbon Dioxide 28.0, Anion Gap 7, BUN 19 H, Creatinine 0.74, Estim Creat Clear Calc 43.07, Est GFR (MDRD) Af Amer 98, Est GFR (MDRD) Non-Af 81, BUN/Creatinine Ratio 25.7 H, Glucose 136 H, Calcium 8.9, Total Bilirubin 0.70, AST 11 L, ALT 10 L, Alkaline Phosphatase 80, Total Protein 5.6 L, Albumin 2.7 L, Globulin 2.9, Albumin/Globulin Ratio 0.9 Current Medications Acetaminophen (Acetaminophen 325 Mg Tablet) 650 mg PO Q6H PRN PRN PRN Reason: Pain Score 1-10/Temp > 100.7 F Al Hydroxide/Mg Hydroxide (Mag Hydrox/Al Hydrox/Simeth 30 Ml Udc) 30 ml PO Q6H PRN PRN PRN Reason: Gastric Burning Albuterol Sulfate (Albuterol 2.5 Mg/3 Ml Vial.Neb.) 2.5 mg INHALATION Q2H PRN PRN PRN Reason: Dyspnea, wheezing Amlodipine Besylate (Amlodipine 5 Mg Tablet) 5 mg PO DAILY [place] Last Admin: 03/10/20 10:47 Dose: 5 mg Documented by: Aspirin (Aspirin E.C. 81 Mg Tablet) 81 mg PO DAILY [facility] Last Admin: 03/10/20 10:46 Dose: 81 mg Documented by: Cholecalciferol (Cholecalciferol (Vit D3) 1,000 Unit (25mcg)) 1,000 unit PO DAILY [facility] Last Admin: 03/10/20 10:45 Dose: 1,000 unit Documented by: Clopidogrel Bisulfate (Clopidogrel Bisulfate 75 Mg Tablet) 75 mg PO DAILY [facility] Last Admin: 03/10/20 10:47 Dose: 75 mg Documented by: Duloxetine HCl (Duloxetine Hcl 60 Mg Capsule) 60 mg PO DAILY [facility] Last Admin: 03/10/20 10:46 Dose: 60 mg Documented by: Enoxaparin Sodium (Enoxaparin 40 Mg/0.4 Ml Syringe) 40 mg SC DAILY [facility] Last Admin: 03/10/20 10:47 Dose: 40 mg Documented by: Etodolac (Etodolac 200 Mg Capsule) 200 mg PO BID [facility] Last Admin: 03/10/20 10:46 Dose: 200 mg Documented by: Etodolac (Etodolac 300 Mg Capsule) 300 mg PO BID [facility] Last Admin: 03/10/20 10:46 Dose: 300 mg Documented by: Fluoxetine HCl (Fluoxetine 20 Mg Capsule) 40 mg PO DAILY [facility] Last Admin: 03/10/20 10:46 Dose: 40 mg Documented by: Guaifenesin (Guaifenesin 10 Ml Udc (200mg/10ml)) 20 ml PO Q4H PRN PRN PRN Reason: COUGH Hydralazine HCl (Hydralazine 20 Mg/Ml Vial) 10 mg IV Q4H PRN PRN PRN Reason: SBP > 160 Insulin Human Lispro (Insulin Lispro 100 Unit/Ml Insuln.Pen) 0 unit SC [facility]; Protocol Last Admin: 03/10/20 11:29 Dose: Not Given Documented by: Leflunomide (Leflunomide 10 Mg Tablet) 20 mg PO DAILY [facility] Last Admin: 03/10/20 10:48 Dose: 20 mg Documented by: Levothyroxine Sodium (Levothyroxine 100 Mcg Tablet) 100 mcg PO DAILY [facility] Last Admin: 03/10/20 10:46 Dose: 100 mcg Documented by: Lisinopril (Lisinopril 40 Mg Tablet) 40 mg PO DAILY [facility] Last Admin: 12/16/20 10:45 Dose: 40 mg Documented by: Metoprolol Succinate (Metoprolol(Xl)Succ 100 Mg Tablet) 100 mg PO DAILY [facility] Last Admin: 03/10/20 10:46 Dose: 100 mg Documented by: Morphine Sulfate (Morphine 2 Mg/Ml Syringe) 2 mg IV Q3H PRN PRN PRN Reason: Pain Score 6-10 Nitroglycerin (Nitroglycerin (Inpatient Use) 0.4 Mg Tab.Subl) 0.4 mg SUBLINGUAL Q5M PRN PRN Reason: CARDIAC/CHEST PAIN Nystatin (Nystatin Powder 15gm Bottle) 1 applic TOPICAL BID [facility]; Protocol Last Admin: 03/10/20 10:48 Dose: 1 applic Documented by: Ondansetron HCl (Ondansetron 4 Mg/2 Ml Vial) 4 mg IV Q8H PRN PRN PRN Reason: NAUSEA/VOMITING Oxycodone HCl (Oxycodone 5 Mg Tablet) 7.5 mg PO 4X/DAY PRN PRN Reason: pain Last Admin: 03/10/20 11:20 Dose: 7.5 mg Documented by: Pravastatin Sodium (Pravastatin 40 Mg Tablet) 40 mg PO QHS [facility] Last Admin: 03/09/20 21:35 Dose: 40 mg Documented by: Pregabalin (Pregabalin 75 Mg Capsule) 150 mg PO QHS [facility] Last Admin: 03/09/20 21:35 Dose: 150 mg Documented by: Pregabalin (Pregabalin 50 Mg Capsule) 100 mg PO DAILY [facility] Last Admin: 03/10/20 10:44 Dose: 100 mg Documented by: Prochlorperazine Edisylate (Prochlorperazine 10 Mg/2 Ml Vial) 5 mg IV Q4H PRN PRN PRN Reason: Breakthrough nausea/vomiting Sodium Chloride (0.9% Saline Lock 10 Ml Syringe) 10 - 40 ml IV UD PRN PRN Reason: SALINE FLUSH Throat Lozenges (Benzocaine/Menthol 1 Lozenge) 1 lozenge MUCOUS MEM Q2H PRN PRN PRN Reason: SORE THROAT Zolpidem Tartrate (Zolpidem Tartrate 5 Mg Tablet) 5 mg PO QHS [facility] Last Admin: 03/09/20 21:35 Dose: 5 mg Documented by: Discharge Diet: 1800 Calorie Control Diet Discharge Activity: No Restrictions Home Medications: Medications to take at Discharge Aspirin E.C. [Ecotrin] 81 mg PO DAILY 11/11/15 Duloxetine HCl 60 mg PO DAILY 11/11/15 Fluoxetine HCl 40 mg PO DAILY 11/11/15 Fluticasone 0.05% [Flonase Nasal Tatums] 1 spray NASAL DAILY 11/11/15 Levothyroxine Sodium [Levoxyl] 100 mcg PO DAILY 11/11/15 Magnesium Oxide [Mag-Ox 400] 400 mg PO DAILY 11/11/15 Pravastatin [Pravachol] 20 mg PO QHS 11/11/15 Pregabalin [Lyrica] 100 mg PO DAILY 11/11/15 Quinapril HCl [Accupril] 40 mg PO DAILY 11/11/15 metFORMIN HCl [Glucophage] 500 mg PO DAILY 11/11/15 Clopidogrel Bisulfate [Clopidogrel] 75 mg PO DAILY 02/20/19 Amlodipine [Norvasc] 5 mg PO DAILY #0 02/24/19 Metoprolol Succinate 100 mg PO DAILY #0 02/24/19 Pregabalin [Lyrica] 150 mg PO QHS 02/24/19 Etodolac 500 mg PO BID 03/09/20 Sitagliptin Phosphate [Januvia] 100 mg PO DAILY 03/09/20 Spironolactone [Aldactone] 25 mg PO DAILY 03/09/20 Acetaminophen [Tylenol Tablet] 650 mg PO Q6H PRN PRN tab 03/10/20 Guaifenesin [Robitussin] 20 ml PO Q4H PRN PRN udc 03/10/20 Insulin Lispro [Humalog KwikPen] See Protocol WI ACHS insuln.pen 03/10/20 Leflunomide 20 mg PO DAILY tab 03/10/20 Mag Hydrox/Al Hydrox/Simeth [Mylanta II] 30 ml PO Q6H PRN PRN udc 03/10/20 Oxycodone HCl/Acetaminophen [Percocet 7.5-325 mg Tablet] 1 tab PO 4X/DAY PRN #8 tab 03/10/20 Following Prescriptions Were Given to Patient: Oxycodone HCl/Acetaminophen [Percocet 7.5-325 mg Tablet] 1 tab PO 4X/DAY PRN #8 tab PRN Reason: pain Prescription Printed Primary Care Physician: Mayra Goodman [employer] SERVICES MANAGER, [employer]NAGER-C [Primary Care Provider] - Please follow up with your Primary Care Physician in: IN 1-2 WEEKS Disposition: Jail facility Minutes spent on discharge:: 45 Patient Condition:: Stable Medical Necessity - Tobacco Use Smoking Status: Former smoker Tobacco Use: Cigarettes Meaningful Use Info Meaningful Use Diagnoses (Choose all that apply): None applicable OBSV E&M: 49576 Observation care discharge
--- NOTE | 2020-03-10 15:35 | CASEMGMT ---
Social Work Note Pt is being discharged to [facility] today at 5:00pm. SW faxed completed discharge paperwork to [facility] including transfer to extended care facility, signed medication list, any scripts, COVID screening tool, COVID test and PAS/RR. Original in SNF folder and copy on pt's chart. MOIZ placed a call to Sharri at [facility] and left message updating her on transportation time. Gilda Slater SOCIETY EDITOR, JEWELRY JOBBER
--- NOTE | 2020-03-10 15:36 | CASEMGMT ---
Social Work Return call from [facility] and they are able to accept pt today. Physician notified and plans to discharge today. PASSRR completed in [employer] system and faxed along with orders to [facility]. Attempted to notify pt on d/c plan and pt is not answering phone. Phone call to pt daughter Roxann and updated of d/c plans and she is agreeable. Transportation arranged with [facility] for 5:00 supervisor shuttle veneering. Phone call to pt CM at [facility] Jyoti Tariq and updated on d/c plan and d/c orders faxed. Nursing notified of d/c time. SHANTA Brasher
--- NOTE | 2020-03-10 15:56 | CASEMGMT ---
Social Work Updated by charge nurse that pt discharge has been cancelled by physician. Avenue updated that pt will not be coming tonight and transportation cancelled. SHANTA Brasher
--- NOTE | 2020-03-10 16:05 | CHAPLAIN ---
Type of Pastoral Visit ___ Initial Visit ___ Follow-up Visit ___ On-call Visit ___ General Patient Visit ___ Spiritual Assessment ___ Family Conference ___ Bereavement ___ Rapid Response ___ Code Blue _x__ Other (describe below) Pastoral Care Referral From ___ Patient ___ Family ___ Nurse ___ Physician ___ Home Health Nurse Licensed Practical ___ Earth Science Faculty Member _x__ Other (describe below) Sacrament/Intervention ___ Active listening ___ Anointing ___ Evangelical ___ Bereavement ___ Communion ___ Malissa exploration ___ ___ Life review ___ Prayer ___ Reconciliation ___ Sacrament of Sick ___ Supportive presence ___ Wedding _x__ Other (describe below) Pastoral Comments phone call made into this isolation room to offer support for patient; pt states that she is being discharged soon and has no needs at this time
[2020-03-10 16:25] VITALS: BP 154/83; PULSE 72; RESP 18; TEMP 36.4; O2SAT 93
[2020-03-10] MEDS: Insulin Lispro 100 UNIT/ML INSULN.PEN SC (16:28)
--- NOTE | 2020-03-10 16:55 | CASEMGMT ---
Notified that discharge to [facility] was reinstated per Dr. Calzada after conversation with pt's daughter. This RN CM contacted [facility] at [facility] who affirmed they can still take the patient this evening. Question regarding any change in the patient's activity related to MRI findings was relayed to Dr. Calzada via Cortext who confirmed there are not any changes needed in the activity orders. This was relayed to [facility]. Transportation arranged with [facility] with a pick-up time scheduled for 1900. Caio Fountain RN notified of pick-up time. Pt's daughter Roxann notified of pick-up time. Questions answered. No further needs or concerns identified. Helder Combs RN CM
== END 2020-03-10 20:00 | disposition skilled nursing facility (03) ==
LOC: ED 14:16 → MS2 16:29
PROVIDERS: Admitting Provider Family Medicine; Emergency Provider Emergency Medicine; PCP Nurse Practitioner; Visit Provider Internal Medicine
DX: R53.1 Weakness (principal); E11.51 Type 2 diabetes mellitus with diabetic peripheral angiopathy without gangrene; E78.5 Hyperlipidemia, unspecified; M06.9 Rheumatoid arthritis, unspecified; G60.0 Hereditary motor and sensory neuropathy; I25.10 Atherosclerotic heart disease of native coronary artery without angina pectoris; I10 Essential (primary) hypertension; R53.81 Other malaise; Z99.3 Dependence on wheelchair; E03.9 Hypothyroidism, unspecified; Z79.899 Other long term (current) drug therapy; Z79.82 Long term (current) use of aspirin; Z79.84 Long term (current) use of oral hypoglycemic drugs; Z79.02 Long term (current) use of antithrombotics/antiplatelets; Z87.891 Personal history of nicotine dependence; F41.9 Anxiety disorder, unspecified; F32.9 Major depressive disorder, single episode, unspecified; E66.9 Obesity, unspecified; Z68.33 Body mass index [BMI] 33.0-33.9, adult
CPT/HCPCS: 71045; 72141; 80048; 80053; 81001; 82962; 83735; 84484; 85025; 87426; 87635; 93005; 96372; 97802; 99218; 99251; 99283; A4216; G0378; G0463; U0002

== ENCOUNTER 2020-04-26 12:16 | Emergency (ER) | payer MEDICARE, OTHER, MEDICAID, SELFPAY ==
[2020-04-26 12:16] VITALS: BP 130/51; PULSE 70; RESP 18; TEMP 36.9; O2SAT 100; BMI 36.2
[2020-04-26 12:26] VITALS: BP 130/51; PULSE 71; RESP 16; TEMP 36.9; O2SAT 98
--- NOTE | 2020-04-26 13:02 | CT_ITS ---
STUDY: CT SOFT TISSUE NECK WITH CONTRAST REASON FOR EXAM: Female, 75 years old. NECK SURGERY 04/18/20/ HAS DRAINAGE POSTERIOR NECK. Hx of diabetes, HTN, Heart stent, appendectomy and hysterectomy RADIATION DOSAGE (If Supplied By Facility): CTDIvol = ( 19.31 ) mGy, DLP = ( 535.25 ) mGycm TECHNIQUE: The patient was scanned in a multi-detector CT scanner. High resolution transaxial imaging was performed following intravenous administration of IV 75mL [id number]-[id number]. Sagittal and coronal images were reconstructed. Individualized dose optimization techniques were used for this CT. COMPARISON: None. FINDINGS: The patient is status post laminectomy and posterior fusion at the C2-C3, C3-C4, C4-C5, C5-C6 and C6-C7 levels utilizing screw and eleonora fixation device. There is evidence of subcutaneous air in the overlying soft tissues at the operative site. This extends into the superficial subcutaneous tissues. There is evidence of a 3.8 cm x 2.3 cm x 3.2 cm fluid collection extending into the overlying skin. This is more prominent in the upper cervical spine region. There is also evidence of soft tissue edema in the subcutaneous tissues in the lower aspect of the cervical spine. CT/Soft Tissue Neck WITH Contrast IMPRESSION: Status post multilevel posterior laminectomy and interpedicular screw fixation and eleonora fixation with postoperative subcutaneous soft tissue air and edema in the soft tissues with focal fluid collection as described. Electronically Signed: Maciel Galindo MD at 15:02 EST , Service support ,
[2020-04-26 13:54] LABS: Absolute Lymphocyte Count 0.99 X10^3/uL (0.83-4.51); Basophil# 0.04 X10^3/uL; Basophil% 0.5 % (0-1); Eosinophil# 0.32 X10^3/uL; Eosinophils% 4.3 % (0-5); Hematocrit 27.7 % (37-47); Hemoglobin 8.3 g/dL (12.0-15.0); Lymphocyte # 0.99 X10^3/ul (4.0); Lymphocyte % 13.3 % (19-41); Mean Corpuscular Hgb 26.9 pg (27.0-32.0); Mean Corpuscular Volume 89.6 fL (81-99); Mean Platelet Vol. 9.5 fl (6.2-12.0); Monocyte# 1.04 X10^3/uL; Monocyte% 13.9 % (0-10); NRBC Flagged by Analyzer 0 % (0-5); Neutrophil # 5.01 X10^3/uL (2.7-7.7); Neutrophil % 67.2 % (47-70); Platelet Count 180 K/mm3 (150-450); RBC Distribution Width CV 14.4 % (11.6-14.6); RBC Distribution Width SD 46.5 fl (35.1-43.9); Red Blood Count 3.09 M/mm3 (4.2-5.4); White Blood Count 7.5 K/mm3 (4.4-11.0)
[2020-04-26 14:12] LABS: ALB/GLOB Ratio 0.5 RATIO (0.9-2.4); AST(SGOT) 10 U/L (15-37); Alanine Aminotransfer ALT/SGPT 10 U/L (13-56); Albumin, Serum 1.7 g/dL (3.2-5.0); Alkaline Phosphatase 56 U/L (45-117); Anion Gap 5 (5-15); BUN 20 mg/dL (7-18); BUN/Creat Ratio 22.2 RATIO (10-20); Calcium,Total 8.9 mg/dL (8.5-10.1); Chloride 103 mmol/L (98-107); EST Glomerular Filtration Rate 65 mL/min (>60); Est Glom Filt Rate - Afr Amer 78 mL/min (>60); Globulin 3.6 g/dL (2.2-4.2); Glucose 121 mg/dL (74-106); Potassium 3.8 mmol/L (3.5-5.1); Protein, Total 5.3 g/dL (6.4-8.2); Sodium Level 138 mmol/L (136-145)
--- NOTE | 2020-04-26 14:21 | ED.DCSUM_ITS ---
- ER Visit Summary Date of Service: 04/26/20 Chief Complaint: Incisional drainage History of Present Illness: The patient is a 75 F who presents with drainage from her incision for the past week. Patient had cervical spine surgery 1 week ago at [facility]. Patient had noticed persistent drainage from the wound since the surgery. Patient states it is clear at times and bloody at times. Patient denies any fevers or chills. Patient denies any headaches. Patient does admit to some pain due to the surgery. Patient denies any redness. Patient denies any nausea or vomiting. Physical Examination: Vital signs are stable. Patient is afebrile. Patient is in no acute distress. Skin is warm and dry. Incision is healing well. There is no erythema or tenderness. There is some serosanguineous drainage coming from one small area of the incision over the lower cervical spine. There is no purulent drainage noted. There is good range of motion of the cervical spine. Cranial nerves II through XII are intact. There are no focal motor or sensory deficits noted. Heart was regular rate and rhythm. Lungs are clear and equal bilaterally. Abdomen is soft and nontender. Test Results: CBC shows a normal white blood cell count. Hemoglobin is slightly low at 8.3 and hematocrit of 27.7. Comprehensive metabolic profile was essentially within normal limits. CT scan of the soft tissue neck was obtained. There is postoperative subcutaneous soft tissue air and a small fluid collection measuring 3.8 x 2.3 x 3.2 cm extending into the overlying skin. This was interpreted by the radiologist and reviewed by myself. Emergency Department Course and Treatment: Patient is feeling better on reevaluation. I believe the fluid collection is a seroma. It does not appear to be a CSF leak. Patient's surgeon was paged but did not return the call. Patient will be discharged back to the extended care facility. Patient understands and is agreeable with the plan. All questions were answered. Disposition: Discharge home Impression: 1. Postoperative seroma This note was generated with [employer] dictation software. It may contain incorrect words, spelling, and punctuation that were not noted in review of the chart prior to signing ED Disposition - Plan for ED Patient: Disposition: Long Term Facility Diagnosis: Postoperative seroma Instructions: ED Seroma, Postsurgical Referrals: Aguila Simms MD [STAFF PHYSICIAN] - 5-7 Days
--- NOTE | 2020-04-26 14:55 | ED.RN ---
checked pt's glucose through her martha on her phone. read at 40. assisting pt to eat cookies and milk at this time. also requested a diet coke.
[2020-04-26 14:57] VITALS: BP 121/65; PULSE 71; RESP 18; TEMP 36.3; O2SAT 98
--- NOTE | 2020-04-26 16:58 | ED.RN ---
pt arrives to ed with maxiyle natty on left bicept. per patient request sugars tested with her personal equipment. was informed and orders placed. donna leahy rn [id number]
[2020-04-26 17:00] VITALS: BP 140/55; PULSE 82; RESP 16; O2SAT 98
--- NOTE | 2020-04-26 17:14 | ED.RN ---
return report called to [facility]. [id number]
[2020-04-26 18:09] VITALS: BP 95/71; PULSE 77; RESP 15; O2SAT 97
[2020-04-27 07:51] LABS: Bedside Glucose 123 mg/dL (70-110)
== END 2020-04-26 18:49 | disposition skilled nursing facility (03) ==
PROVIDERS: Emergency Provider Emergency Medicine; PCP Nurse Practitioner
DX: L76.34 Postprocedural seroma of skin and subcutaneous tissue following other procedure (principal); E11.9 Type 2 diabetes mellitus without complications; I10 Essential (primary) hypertension; E78.00 Pure hypercholesterolemia, unspecified; Z79.4 Long term (current) use of insulin; Z79.899 Other long term (current) drug therapy; Z79.82 Long term (current) use of aspirin
CPT/HCPCS: 70491; 80053; 82962; 85025; 99285; Q9967; A4216

== ENCOUNTER 2020-05-17 09:16 | Emergency (ER) | payer MEDICARE, MEDICAID, OTHER, SELFPAY ==
[2020-05-17 09:18] VITALS: BP 156/86; PULSE 80; RESP 17; TEMP 36.3; O2SAT 95; BMI 32.0
--- NOTE | 2020-05-17 09:43 | ED.VIS.GEN ---
History of Present Illness Chief Complaint: Wound Informant: Patient Onset: Today Context: Gradual Onset Timing: Continuous Current Severity: Mild Maximum Severity: Mild Narrative: The patient is a 75-year-old female who is approximately 4 weeks status post posterior decompression fusion of the cervical spine. The patient's postoperative course was complicated by seroma. She has had a small area of wound dehiscence. She states that today, she was eating breakfast. She states that she began to feel liquid on her back. She is currently at a nursing facility. When they looked at her incision, and had dehisced. There was a lot of serous drainage. The patient denies pain. She denies any fevers or chills. She is otherwise been in her normal state of health. She did have her surgery done at [facility]. Prior similar symptoms: Yes Recent Illness/Hospitalization: No Past Medical History - Allergies and Home Meds Allergies/Adverse Reactions: Allergies erythromycin base Allergy (Verified 05/17/20 09:16) PT UNSURE OF REACTION exenatide [From Byetta] Adverse Reaction (Verified 05/17/20 09:16) Diarrhea furosemide [From Lasix] Adverse Reaction (Verified 05/17/20 09:16) Vomiting naproxen [From Naprosyn] Adverse Reaction (Verified 05/17/20 09:16) abd pain Primary Care Physician: Mayra Goodman DRUG DISCOVERY INFORMATICS SPECIALIST, DRUG DISCOVERY INFORMATICS SPECIALIST-C [Primary Care Provider] - Prior records reviewed: Yes Past Medical History: - - Hypertension, hyperlipidemia Surgical History: appendectomy, hysterectomy, tonsillectomy, - - PCI x1 remotely, appendectomy, hysterectomy, tonsillectomy, bilateral lower extremity foot surgeries, recent right lower extremity stenting x2 for nonhealing wounds. Smoking Status: Former smoker - Family History Maternal Family History: Reports: Heart Disease, - - Peripheral artery disease. Paternal Family History: Reports: - - Patient denies any market paternal family history including heart disease, diabetes, cancer, stroke. Review of Systems General: Denies: Chills, Fever, Sweats Eyes: Denies: Visual changes - bilaterally, Diplopia ENT: Denies: Rhinorrhea, Sore throat Cardiovascular: Denies: Chest pain, Palpitations Respiratory: Denies: Dyspnea, Cough, Dyspnea on exertion Gastrointestinal: Denies: Abdominal pain, Nausea, Vomiting, Diarrhea, Melena, Hematochezia Genitourinary: Denies: Dysuria, Hematuria, Frequency Musculoskeletal: Denies: Back pain, Extremity Pain Skin: Denies: Rash, Wounds Neurological: Denies: Headache, Weakness, Numbness Physical Exam Vital Signs/Narrative: Vital Signs Temp Pulse Resp BP Pulse Ox 05/17/20 09:18 97.4 F L 80 17 156/86 H 95 Inital Vital Signs reviewed: Yes General: Well nourished, Well developed, No Acute Distress Head: Normocephalic, Atraumatic Eyes: Perrl, EOMI ENT: Moist mucous membranes, No rhinorrhea Neck: Supple, Nontender, - - Patient has a 3 cm area of dehiscence at the midline of the wound. Her hardware is visible. There is no evidence of cellulitis. Cardiovascular: Regular rate, Regular rhythm, No murmurs Respiratory: No distress, CTA bilaterally, Chest nontender Abdomen: Soft, Nontender, Nondistended, Normal bowel sounds Back: Nontender, Normal Inspection Extremities: Nontender, No edema Skin: Normal color, No rash Neurological: Alert, Oriented x3, Cranial nerves II-XII grossly intact, Normal Strength, Normal Sensation Psychological: Normal affect, Normal Mood Diagnostic/Tx/Re-eval Abnormal Lab Results 05/17/20 05/17/20 05/17/20 10:05 10:05 10:05 WBC 6.6 RBC 4.63 Hgb 11.8 L Hct 40.6 MCV 87.7 MCH 25.5 L MCHC 29.1 L RDW Std Deviation 47.7 H RDW Coeff of Kavon 14.9 H Plt Count 191 MPV 9.6 Immature Gran % (Auto) 0.300 Neut % (Auto) 72.3 H Lymph % (Auto) 13.6 L [place] % (Auto) 7.8 Eos % (Auto) 5.2 H Baso % (Auto) 0.8 Absolute Neuts (auto) 4.7 Absolute Lymphs (auto) 0.89 Nucleated RBC % 0 ESR PT Cancelled INR Cancelled Sodium 140 Potassium 4.5 Chloride 102 Carbon Dioxide 32.0 Anion Gap 6 BUN 11 Creatinine 0.74 Estim Creat Clear Calc 42.39 Est GFR (MDRD) Af Amer 97 Est GFR (MDRD) Non-Af 81 BUN/Creatinine Ratio 14.8 Glucose 162 H Calcium 9.4 C-React Prot Ext Range 05/17/20 05/17/20 05/17/20 10:05 10:05 10:50 WBC RBC Hgb Hct MCV MCH MCHC RDW Std Deviation RDW Coeff of Kavon Plt Count MPV Immature Gran % (Auto) Neut % (Auto) Lymph % (Auto) [place] % (Auto) Eos % (Auto) Baso % (Auto) Absolute Neuts (auto) Absolute Lymphs (auto) Nucleated RBC % ESR 50 H PT 13.4 INR 1.1 Sodium Potassium Chloride Carbon Dioxide Anion Gap BUN Creatinine Estim Creat Clear Calc Est GFR (MDRD) Af Amer Est GFR (MDRD) Non-Af BUN/Creatinine Ratio Glucose Calcium C-React Prot Ext Range 8.71 H - Medical Decision Making The patient presents with a postoperative wound dehiscence. She has had a seroma, but now her wound had dehisced. It was serous fluid. There is no evidence of purulent drainage. However, the patient does have exposed hardware. Metabolic work-up was pursued and was unremarkable. I did discuss her case through her neurosurgeons office. As she does have exposed hardware, they did recommend transfer to [facility]. This was arranged through the [facility] transfer line. Impression 1. Postoperative wound dehiscence ED Disposition - Plan for ED Patient: Referrals: Mayra Goodman NP, DRUG DISCOVERY INFORMATICS SPECIALIST-C [Primary Care Provider] -
[2020-05-17 10:22] LABS: Absolute Lymphocyte Count 0.89 X10^3/uL (0.83-4.51); Absolute Neutrophil Count 4.7 X10^3/uL (2.0-7.7); Basophil# 0.05 X10^3/uL; Basophil% 0.8 % (0-1); Eosinophil# 0.34 X10^3/uL; Eosinophils% 5.2 % (0-5); Hematocrit 40.6 % (37-47); Hemoglobin 11.8 g/dL (12.0-15.0); Lymphocyte # 0.89 X10^3/ul (4.0); Lymphocyte % 13.6 % (19-41); Mean Corp Hgb Conc 29.1 g/dL (32-36); Mean Corpuscular Hgb 25.5 pg (27.0-32.0); Mean Corpuscular Volume 87.7 fL (81-99); Mean Platelet Vol. 9.6 fl (6.2-12.0); Monocyte# 0.51 X10^3/uL; Monocyte% 7.8 % (0-10); NRBC Flagged by Analyzer 0 % (0-5); Neutrophil # 4.74 X10^3/uL (2.7-7.7); Neutrophil % 72.3 % (47-70); Platelet Count 191 K/mm3 (150-450); RBC Distribution Width CV 14.9 % (11.6-14.6); RBC Distribution Width SD 47.7 fl (35.1-43.9); Red Blood Count 4.63 M/mm3 (4.2-5.4); White Blood Count 6.6 K/mm3 (4.4-11.0)
[2020-05-17 10:31] LABS: Anion Gap 6 (5-15); BUN 11 mg/dL (7-18); BUN/Creat Ratio 14.8 RATIO (10-20); Calcium,Total 9.4 mg/dL (8.5-10.1); Chloride 102 mmol/L (98-107); Creatinine, Serum 0.74 mg/dL (0.55-1.02); EST Glomerular Filtration Rate 81 mL/min (>60); Est Glom Filt Rate - Afr Amer 97 mL/min (>60); Estimated Creatinine Clearance 42.39 ml/min; Glucose 162 mg/dL (74-106); Potassium 4.5 mmol/L (3.5-5.1); Sodium Level 140 mmol/L (136-145)
[2020-05-17] MEDS: oxyCODONE 5 MG Tablet PO (10:43)
[2020-05-17 11:00] LABS: CRP 8.71 mg/L (0.0-3.0)
[2020-05-17 11:02] LABS: Erythrocyte Sedimentation Rate 50 mm/hr (0-30)
[2020-05-17 11:23] LABS: International Normalized Ratio 1.1; Prothrombin Time (Protime)PT. 13.4 SECONDS (11.7-14.9)
[2020-05-17 13:44] VITALS: BP 106/5; PULSE 69; RESP 15; O2SAT 98
[2020-05-17 14:13] VITALS: BP 174/55; PULSE 71; RESP 14; O2SAT 97
== END 2020-05-17 15:12 | disposition short-term general hospital (02) ==
PROVIDERS: Emergency Provider Emergency Medicine; PCP Nurse Practitioner
DX: T81.31XA Disruption of external operation (surgical) wound, not elsewhere classified, initial encounter (principal); E78.5 Hyperlipidemia, unspecified; I10 Essential (primary) hypertension; Z90.710 Acquired absence of both cervix and uterus; Z87.891 Personal history of nicotine dependence; Z79.899 Other long term (current) drug therapy
CPT/HCPCS: 36415; 80048; 85025; 85610; 85652; 86140; 87426; 99285

== ENCOUNTER 2020-08-24 14:51 | Emergency (ER) | payer MEDICARE, MEDICAID, OTHER, SELFPAY ==
[2020-08-24 14:52] VITALS: BP 139/110; PULSE 96; RESP 18; TEMP 36.1; O2SAT 95; BMI 27.3
--- NOTE | 2020-08-24 14:55 | EKG12_ITS ---
Test Reason : ABD LABS Blood Pressure : / mmHG Vent. Rate : 105 BPM Atrial Rate : 105 BPM P-R Int : 150 ms QRS Dur : 082 ms QT Int : 348 ms P-R-T Axes : 072 -12 084 degrees QTc Int : 459 ms Sinus tachycardia with Premature atrial complexes Poor R wave progression Inferior IL, age undetermined, cannot be excluded Nonspecific T wave abnormality Confirmed by RICHA SORTO, NIMA ([id number]), editorial cartoonist BRAD SAMANO ([id number]) on 08/26/2020 12:37:12 PM Referred By: CAYDEN Confirmed By:NIMA CHAUDHRY MD
--- NOTE | 2020-08-24 15:06 | EX.ED.DYSGE1 ---
HPI History of Present Illness Chief Complaint: General Illness Narrative Narrative: Sent from intermediate due to abnormal labs creatinine 1.5 and abnormal potassium,, patient is at nursing center related to cervical fusion and post surgery care she is wheelchair confined, she indicates she has no complaints of any kind she was sent sent to the ED based on intermediate personnel. She had no fever no cough no head neck chest or abdominal pain her surgical incision is healing well she is eating and drinking bowel bladder habits unremarkable PFSH PFSH Medical History (Updated 08/24/20 @ 15:06 by Faviola Howell RN) CAD (coronary artery disease) Cerebral infarction Debility Diabetes History of cellulitis Hypertension Insomnia Mitral valve stenosis Peripheral vascular angioplasty status Rheumatoid arthritis Home Medications Magnesium Hydroxide [Milk Of Magnesia] 30 ml PO DAILY PRN 05/17/20 [History Last Taken Unknown] Mineral Oil Enema 118 ml RC PRN PRN 05/17/20 [History Last Taken Unknown] amlodipine 5 mg PO QHS 05/17/20 [History Last Taken Unknown] clopidogrel 75 mg PO DAILY 05/17/20 [History Last Taken Unknown] cyclobenzaprine 5 mg PO Q8H PRN 05/17/20 [History Last Taken Unknown] docusate sodium 100 mg PO BID 05/17/20 [History Last Taken Unknown] duloxetine 60 mg PO DAILY 05/17/20 [History Last Taken Unknown] fluticasone propionate 1 spray NASAL DAILY 05/17/20 [History Last Taken Unknown] insulin lispro 100 unit SQ TIDCM 05/17/20 [History Last Taken Unknown] levothyroxine 100 mcg PO DAILY 05/17/20 [History Last Taken Unknown] linagliptin 5 mg PO DAILY 05/17/20 [History Last Taken Unknown] lisinopril 40 mg PO DAILY 05/17/20 [History Last Taken Unknown] metformin 500 mg PO BID 05/17/20 [History Last Taken Unknown] metoprolol succinate 100 mg PO QHS 05/17/20 [History Last Taken Unknown] oxycodone-acetaminophen 1 tab PO Q6H PRN PRN 05/17/20 [History Last Taken Unknown] pravastatin 40 mg PO QHS 05/17/20 [History Last Taken Unknown] pregabalin 100 mg PO BID 05/17/20 [History Last Taken Unknown] spironolactone 25 mg PO DAILY 05/17/20 [History Last Taken Unknown] Allergy/AdvReac Type Severity Reaction Status Date / Time erythromycin base Allergy PT UNSURE Verified 05/17/20 09:16 OF REACTION exenatide [From Byetta] AdvReac Diarrhea Verified 05/17/20 09:16 furosemide [From Lasix] AdvReac Vomiting Verified 05/17/20 09:16 naproxen [From Naprosyn] AdvReac abd pain Verified 05/17/20 09:16 Surgical History (Updated 08/24/20 @ 15:06 by Faviola Howell RN) Status post cervical spinal fusion Social History Smoking Status: Former smoker ROS ROS ED ROS Narrative Patient has no complaints she reports she is at her baseline health status Constitutional Constitutional ED: Reports subjective, sweats and other; Denies chills, fever(s) or weight loss Eyes Eyes: Denies blurry vision or change in vision ENT ENT ED: Denies ear pain Cardiovascular Cardiovascular: Denies chest pain or palpitations Respiratory/Chest Respiratory/Chest: Denies dyspnea Gastrointestinal Gastrointestinal: Denies abdominal pain, nausea or vomiting Genitourinary Genitourinary ED: Denies dysuria or hematuria Musculoskeletal Musculoskeletal: Denies arthralgias or myalgias Integumentary Reports rash; Denies abscess Neurologic Neurologic: Denies weakness Psychiatric Psychiatric: Denies anxiety or depression Endocrine Endocrinology: Denies polydipsia or polyuria Allergic/Immunologic Allergic/Immunologic ED: Denies urticaria EXAM Physical Exam Narrative Exam Narrative: Vital signs are unremarkable her cervical incision is well-healed, she has some contractures and her right leg is rotated externally that is normal she is able to move all 4 extremities at her baseline again she assures me she has no complaints no pain Const Vital Signs: 08/24/20 14:52 08/24/20 15:06 Temperature 96.9 F L Temperature Source Temporal Pulse Rate 96 Respiratory Rate 18 Respiratory Effort Normal Non-Labored Respiratory Pattern Normal Blood Pressure 139/110 H Blood Pressure Mean 119 Pulse Ox 95 Oxygen Delivery Method Room Air Positive well developed General Appearance ED: well developed HEENT Reports normocephalic Negative for trauma Eyes EOMs intact bilaterally Neck supple Chest Wall inspection of chest normal Resp normal respiratory effort Cardio regular rate GI non-tender and non-distended Back/Spine Back/Spine Narrative: unremarkable C-spine incision unremarkable nontender Extremity normal to inspection Neuro oriented x3 and CN's II-XII intact bilaterally Sensorium / Orientation: alert Psych mental status grossly normal Skin no rashes or lesions noted MDM MDM MDM Narrative Medical decision making narrative: Routine lab draw yesterday per staff revealed a creatinine of 1.5 and she was sent to the hospital primarily for that reason patient's HEENT exam is unremarkable she denies being hungry or thirsty states she is eating and drinking well normal bowel bladder habits this time screening labs IV fluids patient's EKG shows a sinus rhythm rate of 105 no acute injury, 1 view chest x-ray to my review shows nothing acute, elevated right hemidiaphragm see radiology report, the labs reveal a white count of 17,000 potassium is 5 creatinine 1.5 she received IV fluids urine shows nothing acute there is no clear explanation for the elevated white count, the patient says she feels fine at her baseline she wants to go home to the nursing center to continue her therapy we have paged the physician who sent her to the ED there is been no call back, I will asked the afternoon physicians to discuss the case with that physician should they call back but again the patient wants to return to the nursing center this information was relayed to the nursing center staff urine cultures were obtained she was started IV Rocephin pending the results of the urine culture patient will continue to her therapy at nursing center nursing center was instructed to review results of the urine culture once available and have the patient continue care and return for change in symptoms Disposition return to nursing center Final impression leukocytosis, creatinine 1.5, recent cervical spine surgery Lab Data Labs: Laboratory Results - last 24 hr 08/24/20 08/24/20 08/24/20 15:05 15:05 16:06 WBC 17.3 H RBC 4.30 Hgb 11.4 L Hct 35.4 L MCV 82.3 MCH 26.5 L MCHC 32.2 RDW Std Deviation 58.8 H RDW Coeff of Kavon 20.2 H Plt Count 178 MPV 10.3 Immature Gran % (Auto) 1.000 H Neut % (Auto) 88.8 H Lymph % (Auto) 6.6 L Iron % (Auto) 3.3 Eos % (Auto) 0.1 Baso % (Auto) 0.2 Absolute Neuts (auto) 15.4 H Absolute Lymphs (auto) 1.14 Nucleated RBC % 0 Differential Comment SCANNED Anisocytosis 1+ Crenated Cell 1+ Sodium 136 Potassium 5.1 Chloride 107 Carbon Dioxide 20.0 L Anion Gap 9 BUN 50 H Creatinine 1.51 H Estim Creat Clear Calc 28.08 Est GFR (MDRD) Af Amer 43 L Est GFR (MDRD) Non-Af 36 L BUN/Creatinine Ratio 33.1 H Glucose 97 Calcium 7.6 L Total Bilirubin 0.50 AST 22 ALT 11 L Alkaline Phosphatase 91 Troponin I 0.359 H Total Protein 5.0 L Albumin 1.7 L Globulin 3.3 Albumin/Globulin Ratio 0.5 L Lipase 40 L Urine Color Yellow Urine Clarity Sl. Cloudy Urine pH 5.0 Ur Specific [place] 1.020 Urine Protein 15 H Urine Glucose (UA) Normal Urine Ketones 5 H Urine Occult Blood Negative Urine Nitrite Negative Urine Bilirubin 3 H Urine Urobilinogen Normal Ur Leukocyte Esterase 25 H Urine RBC 0 SEEN Urine WBC 0-5 SEEN Ur Squamous Epith Cells 0-5 SEEN Urine Bacteria 0 SEEN Urine Mucus 0 SEEN Discharge Plan Triage Chief Complaint: General Illness ED Provider: Kody Theodore Dx/Rx/DC Orders Prescriptions: No Action metformin 500 MG tablet 500 mg PO BID RF: 0 pravastatin 40 MG tablet 40 mg PO QHS RF: 0 metoprolol succinate 100 MG tablet extended release 24 hr 100 mg PO QHS RF: 0 clopidogrel 75 MG tablet 75 mg PO DAILY RF: 0 amlodipine 5 MG tablet 5 mg PO QHS RF: 0 spironolactone 25 MG tablet 25 mg PO DAILY RF: 0 levothyroxine 100 MCG tablet 100 mcg PO DAILY RF: 0 oxycodone-acetaminophen 1 TABLET tablet 1 tab PO Q6H PRN PRN (Reason: Pain 1-10 Or Fever) RF: 0 docusate sodium 100 MG capsule 100 mg PO BID RF: 0 lisinopril 40 MG tablet 40 mg PO DAILY RF: 0 fluticasone propionate 1 SPRAY spray,suspension 1 spray NASAL DAILY RF: 0 insulin lispro 100 UNIT/ML insulin pen 100 unit SQ TIDCM RF: 0 cyclobenzaprine 5 MG tablet 5 mg PO Q8H PRN (Reason: MUSCLE SPASMS) RF: 0 duloxetine 60 MG capsule,delayed release(DR/EC) 60 mg PO DAILY RF: 0 pregabalin 100 MG capsule 100 mg PO BID RF: 0 linagliptin 5 MG tablet 5 mg PO DAILY RF: 0 Magnesium Hydroxide [Milk Of Magnesia] 400 MG/5 ML Oral.Susp 30 ml PO DAILY PRN (Reason: Constipation) RF: 0 Mineral Oil Enema 118 ml RC PRN PRN (Reason: Constipation) RF: 0 Primary Care Provider: Mayra Goodman NP
[2020-08-24 15:18] LABS: Absolute Lymphocyte Count 1.14 X10^3/uL (0.83-4.51); Absolute Neutrophil Count 15.4 X10^3/uL (2.0-7.7); Basophil# 0.03 X10^3/uL; Basophil% 0.2 % (0-1); Eosinophil# 0.01 X10^3/uL; Eosinophils% 0.1 % (0-5); Hematocrit 35.4 % (37-47); Hemoglobin 11.4 g/dL (12.0-15.0); Lymphocyte # 1.14 X10^3/ul (0.83-4.51); Lymphocyte % 6.6 % (19-41); Mean Corp Hgb Conc 32.2 g/dL (32-36); Mean Corpuscular Hgb 26.5 pg (27.0-32.0); Mean Corpuscular Volume 82.3 fL (81-99); Mean Platelet Vol. 10.3 fl (6.2-12.0); Monocyte# 0.57 X10^3/uL; Monocyte% 3.3 % (0-10); NRBC Flagged by Analyzer 0 % (0-5); Neutrophil # 15.41 X10^3/uL (2.7-7.7); Neutrophil % 88.8 % (47-70); POSITIVE MORPHOLOGY YES; Platelet Count 178 K/mm3 (150-450); RBC Distribution Width CV 20.2 % (11.6-14.6); RBC Distribution Width SD 58.8 fl (35.1-43.9); White Blood Count 17.3 K/mm3 (4.4-11.0)
[2020-08-24 15:20] LABS: Differential Indicated SCAN CRITERIA MET
[2020-08-24] MEDS: Ondansetron 4 MG/2 ML Vial IV (15:21)
[2020-08-24] MEDS: Morphine 4 MG/ML Syringe IV (15:22)
[2020-08-24 15:36] LABS: ALB/GLOB Ratio 0.5 RATIO (0.9-2.4); AST(SGOT) 22 U/L (15-37); Alanine Aminotransfer ALT/SGPT 11 U/L (13-56); Albumin, Serum 1.7 g/dL (3.2-5.0); Alkaline Phosphatase 91 U/L (45-117); Anion Gap 9 (5-15); BUN 50 mg/dL (7-18); BUN/Creat Ratio 33.1 RATIO (10-20); Calcium,Total 7.6 mg/dL (8.5-10.1); Chloride 107 mmol/L (98-107); Creatinine, Serum 1.51 mg/dL (0.55-1.02); EST Glomerular Filtration Rate 36 mL/min (>60); Est Glom Filt Rate - Afr Amer 43 mL/min (>60); Estimated Creatinine Clearance 28.08 ml/min; Globulin 3.3 g/dL (2.2-4.2); Glucose 97 mg/dL (74-106); Lipase 40 U/L (73-393); Potassium 5.1 mmol/L (3.5-5.1); Sodium Level 136 mmol/L (136-145)
[2020-08-24 15:51] LABS: Anisocytosis 1+; Crenated RBC 1+; Differential Comment SCANNED
[2020-08-24 16:16] LABS: Bacteria 0 SEEN /hpf (None Seen); Mucous, Urine 0 SEEN /hpf (<or=2+); Red Blood Cells-Urine 0 SEEN /hpf (0-5)
[2020-08-24 16:17] LABS: Color, Urine Yellow (Yellow); Glucose, Dipstick Normal (Normal); Ketone-Dipstick 5 mg/dl (Negative); Leukocyte Esterase-Dipstick 25 /ul (Negative); Nitrite-Dipstick Negative (Negative); Occult Blood-Urine Negative /ul (Negative); Protein-Dipstick 15 mg/dl (Negative); Urine Clarity Sl. Cloudy (Clear); Urine Urobilinogen Normal (Normal)
[2020-08-24 16:21] LABS: Urine Bilirubin Dipstick 3 mg/dL (Negative)
[2020-08-24 16:36] LABS: Squamous Epithelial Cells - UA 0-5 SEEN /hpf (5-10); White Blood Cells 0-5 SEEN /hpf (0-5)
--- NOTE | 2020-08-24 16:42 | RAD_ITS ---
STUDY: X-RAY CHEST REASON FOR EXAM: Female, 75 years old. cough TECHNIQUE: Single AP portable view of the chest. COMPARISON: 03/09/2020 FINDINGS: Interval placement of left upper extremity PICC with tip the catheter overlying the superior vena cava. The lungs are clear and expanded. Elevated right hemidiaphragm which is unchanged. Normal size heart. Normal mediastinum and hudson. Normal visualized pulmonary arteries. Normal visualized aortic arch and descending thoracic aorta. Normal visualized thoracic spine. Normal visualized ribs, clavicles, and shoulders. There is no demonstrated abnormality of the visualized soft tissue structures of the upper abdomen. RAD/Chest 1 View IMPRESSION: 1. Interval placement of left upper extremity PICC with tip the catheter overlying the spur vena cava. 2. No active disease. Electronically Signed: Marciano Yun MD at 16:58 EDT Tel , Service support ,
--- NOTE | 2020-08-24 16:56 | NURSING ---
[id number] FENTON [id number] FENTON [id number] FENTON PHONE
[2020-08-24 16:59] VITALS: BP 123/95; PULSE 81; RESP 18; O2SAT 95
[2020-08-24] MEDS: Ceftriaxone 1 GM/50 ML BAG IV (17:00)
--- NOTE | 2020-08-24 17:25 | ED.RN ---
DR. HARDING ORDERED BLOOD CULTURES AFTER ANTIBIOTICS HAD STARTED. . KAIDEN. BLOOD CULTURES DRAWN, SEE BLOOD DRAW CHARTING. ANTIBIOTICS RESTARTED THROUGH PICC LINE ACCESS. PT TOLERATED WELL.
--- NOTE | 2020-08-24 17:49 | NURSING ---
CALLED [facility], ETA IS 90 MIN. TALKED TO SERENA
--- NOTE | 2020-08-24 17:54 | ED.RN ---
THIS RN EDUCATED PT ON WRITTEN DISCHARGE INSTRUCTIONS. PT VERBALIZES UNDERSTANDING AND DENIES ANY FURTHER QUESTIONS. THIS RN CALLED REPORT BACK TO F [address] AND GAVE THE NURSE REPORT. EDUCATED ON DEHYDRATION, TREATMENT IN ED, AND NEED FOR FOLLOW UP. PT WAITING FOR [facility], INFORMED OF 90 MIN ETA. PT RESTING COMFORTABLY SNACK GIVEN.
[2020-08-24 17:57] VITALS: BP 126/62; PULSE 98; RESP 16; O2SAT 97
== END 2020-08-24 18:57 | disposition home or self-care (01) ==
LOC: ED 15:31
PROVIDERS: Emergency Provider Emergency Medicine; PCP Nurse Practitioner
DX: D72.829 Elevated white blood cell count, unspecified (principal); I25.10 Atherosclerotic heart disease of native coronary artery without angina pectoris; Z87.891 Personal history of nicotine dependence
CPT/HCPCS: 36415; 71045; 80053; 81001; 83690; 84484; 85025; 87040; 87086; 93005; 96365; 96375; 99285; J7030; P9612; A4216; J2405

== ENCOUNTER 2020-08-26 18:07 | Inpatient (IN) | payer MEDICARE, OTHER, MEDICAID, SELFPAY ==
[2020-08-26] VITALS (24 sets, daily range): BP systolic 62–156; BP diastolic 35–129; PULSE 106–132; RESP 13–26; TEMP 35.3–36.7; O2SAT 78–100; BMI 26.8
--- NOTE | 2020-08-26 18:13 | EKG12_ITS ---
Test Reason : Blood Pressure : / mmHG Vent. Rate : 120 BPM Atrial Rate : 120 BPM P-R Int : 192 ms QRS Dur : 106 ms QT Int : 336 ms P-R-T Axes : 000 033 022 degrees QTc Int : 474 ms Sinus tachycardia Otherwise normal ECG Confirmed by RICHA SORTO, NIMA ([id number]), scientific publications editor BRAD SAMANO ([id number]) on 08/30/2020 10:32:06 AM Referred By: GAL Confirmed By:NIMA CHAUDHRY MD
--- NOTE | 2020-08-26 18:30 | EX.ED.DYSGE1 ---
HPI History of Present Illness Chief Complaint: Weakness Informant: EMS and SNF Limited: stupor Onset/Context/Timing Onset: Today Context: Sudden Onset Timing: Continuous Quality: Patient arrived with altered mental status, hypotension, tachycardia and ta Location: [facility] Current Severity: Unable to determine Maximum Severity: Unable to determine Worsened by: Unknown Relieved by: Unknown Associated Symptoms Associated Symptoms: Unable to obtain Narrative Narrative: Patient is a 75-year-old woman with multiple medical problems who is a full code. She arrived because of low blood sugar and altered mental status. She was noted to be tachycardic, tachypneic and hypotensive. Patient appears mottled. Unable to obtain history. Prior similar symptoms: No Recent Illness/Hospitalization: No PFSH PFSH Medical History (Updated 08/26/20 @ 19:[address] Ziggy Jones MD) Anxiety CAD (coronary artery disease) Cerebral infarction Charcot's arthropathy Debility Depression Diabetes History of cellulitis Hyperlipidemia Hypertension Hypothyroidism Insomnia Iron deficiency anemia Kyphosis Mitral valve stenosis Peripheral vascular angioplasty status Rheumatoid arthritis Spinal stenosis Home Medications clopidogrel 75 mg PO DAILY 05/17/20 [History Last Taken 08/26/20] cyclobenzaprine 5 mg PO Q8H PRN 05/17/20 [History Last Taken Unknown] docusate sodium 100 mg PO DAILY PRN 05/17/20 [History Last Taken Unknown] duloxetine 60 mg PO DAILY 05/17/20 [History Last Taken 08/26/20] fluticasone propionate 1 spray NASAL DAILY 05/17/20 [History Last Taken 08/26/20] levothyroxine 100 mcg PO DAILY 05/17/20 [History Last Taken 08/26/20] linagliptin 5 mg PO DAILY 05/17/20 [History Last Taken 08/26/20] lisinopril 40 mg PO DAILY 05/17/20 [History Last Taken 08/26/20] metoprolol succinate 100 mg PO DAILY 05/17/20 [History Last Taken 08/26/20] pravastatin 40 mg PO QHS 05/17/20 [History Last Taken 08/25/20] pregabalin 100 mg PO BID 05/17/20 [History Last Taken 08/26/20] spironolactone 25 mg PO DAILY 05/17/20 [History Last Taken 08/26/20] acetaminophen [Tylenol Extra Strength] 1,000 mg PO TID PRN 08/26/20 [History Last Taken 08/26/20] albuterol sulfate 2.5 mg INHALATION TID 08/26/20 [History Last Taken 08/26/20] insulin aspart U-100 [Novolog Flexpen U-100 Insulin] See Protocol SUBCUT TIDCM 08/26/20 [History Last Taken 08/24/20] metformin 1,000 mg PO BID 08/26/20 [History Last Taken 08/26/20] nut.tx.gluc intol,lf,soy-fiber [Boost Glucose Control] 240 ml PO DAILY 08/26/20 [History Last Taken 08/25/20] pantoprazole 40 mg PO DAILY 08/26/20 [History Last Taken 08/26/20] sulfamethoxazole-trimethoprim [Bactrim DS] 1 tab PO DAILY 08/26/20 [History Last Taken 08/26/20] Allergy/AdvReac Type Severity Reaction Status Date / Time erythromycin base Allergy PT UNSURE Verified 08/26/20 18:08 OF REACTION exenatide [From [place]] AdvReac Diarrhea Verified 08/26/20 18:08 furosemide [From Lasix] AdvReac Vomiting Verified 08/26/20 18:08 naproxen [From Naprosyn] AdvReac abd pain Verified 08/26/20 18:08 Surgical History Status post cervical spinal fusion Social History (Updated 08/26/20 @ 18:[address] Ziggy Jones MD) household members: none housing: assisted Smoking Status: Former smoker details: Unknown substance use type: other details: Unknown ROS ROS ED Review of Systems ROS Unobtainable: due to mental status EXAM Physical Exam Const Vital Signs: 08/26/20 18:08 08/26/20 18:23 08/26/20 18:34 Temperature 98.0 F 98.0 F Temperature Source Axillary Axillary Pulse Rate 115 H Respiratory Rate 21 H Respiratory Effort Normal Respiratory Pattern Normal Blood Pressure 76/43 L Blood Pressure Mean 54 Pulse Ox 89 78 Oxygen Delivery Method Room Air Non-Rebreather Oxygen Flow Rate (L/min) 15 08/26/20 18:39 08/26/20 18:46 08/26/20 19:27 Temperature 98.0 F 96.0 F L Temperature Source Axillary Core Pulse Rate 111 H 112 H 106 H Respiratory Rate 26 H 22 H 14 Respiratory Effort Respiratory Pattern Blood Pressure 85/52 L 73/35 L 62/44 L Blood Pressure Mean 63 47 50 Pulse Ox 92 88 Oxygen Delivery Method Non-Rebreather Non-Rebreather Non-Rebreather Oxygen Flow Rate (L/min) 15 15 08/26/20 19:28 08/26/20 19:29 08/26/20 19:46 Temperature Temperature Source Pulse Rate 120 H 113 H Respiratory Rate 14 13 Respiratory Effort Respiratory Pattern Blood Pressure 62/44 L 84/46 L Blood Pressure Mean 50 58 Pulse Ox 88 Oxygen Delivery Method Non-Rebreather Non-Rebreather Non-Rebreather Oxygen Flow Rate (L/min) 15 15 Positive well nourished, well developed and obese General Appearance ED: well developed, cyanotic, pallor and other Patient appears pale. Nutritional Appearance: obese HEENT Reports TM's clear HEENT Narrative: Nares patent. Poor dentition. Face is symmetric. Tympanic Membrane ED: Yes TM's clear Eyes PERRL and EOMs intact bilaterally General Eye ED: Yes pale conjunctiva; Negative for scleral icterus Neck no lymphadenopathy, supple and no JVD Neck Narrative: There is a wound noted posterior neck due to surgery. There is no obvious evidence of infection. Chest Wall inspection of chest normal and palpation of chest normal Resp No normal respiratory effort and No clear to auscultation bilaterally Auscultation: rales right base and left base and diminished lung sounds GI Auscultation: hypoactive bowel sounds Palpation: soft and tender; Negative for guarding or rebound tenderness present Back/Spine Back/Spine Narrative: Back appears normal. Extremity General Extremety ED: Yes edema General Extremity: edema Neuro No oriented x3 and CN's II-XII intact bilaterally Sensorium / Orientation: Negative for alert Psych Appearance: other Unable to determine Skin General Skin Exam: pallor MDM MDM MDM Narrative Medical decision making narrative: Patient hypotensive with decreased mental status. Need to evaluate for cardiac etiology, infectious etiology. Also need to entertain possibility of GI bleed. EKG will be obtained to rule out cardiac ischemia. Order set for sepsis was initiated. ABG was obtained and reveals a metabolic acidosis. There is evidence of respiratory alkalosis as well. Lab Data Attestation: I reviewed the patient's lab results. Labs: Laboratory Results - last 24 hr 08/26/20 08/26/20 08/26/20 16:30 16:30 16:30 WBC 19.8 H RBC 3.35 L Hgb 9.0 L Hct 28.6 L MCV 85.4 MCH 26.9 L MCHC 31.5 L RDW Std Deviation 62.9 H RDW Coeff of Kavon 20.9 H Plt Count 180 MPV 10.7 Immature Gran % (Auto) 2.900 H Neut % (Auto) 87.9 H Lymph % (Auto) 7.2 L [place] % (Auto) 1.8 Eos % (Auto) 0.0 Baso % (Auto) 0.2 Absolute Neuts (auto) 17.4 H Absolute Lymphs (auto) 1.42 Nucleated RBC % 0.3 Platelet Estimate ADEQUATE RBC Morphology N CHROM Anisocytosis 1+ Microcytosis RARE Ovalocytes RARE [place] Cells RARE Acanthocytes (Spur) 1+ Schistocytes RARE PT 17.9 H INR 1.6 APTT 36.4 H Sodium 139 Potassium 5.9 H Chloride 110 H Carbon Dioxide 10.0 L Anion Gap 19 H BUN 59 H Creatinine 2.53 H Estim Creat Clear Calc 15.40 Est GFR (MDRD) Af Amer 24 L Est GFR (MDRD) Non-Af 20 L BUN/Creatinine Ratio 23.3 H Glucose 240 H Lactic Acid Calcium 7.7 L Total Bilirubin 0.40 AST 23 ALT 10 L Alkaline Phosphatase 81 Total Protein 4.0 L Albumin 1.5 L Globulin 2.5 Albumin/Globulin Ratio 0.6 L Urine Color Urine Clarity Urine pH Ur Specific [place] Urine Protein Urine Glucose (UA) Urine Ketones Urine Occult Blood Urine Nitrite Urine Bilirubin Urine Urobilinogen Ur Leukocyte Esterase Urine RBC Urine WBC Ur Squamous Epith Cells Urine Bacteria Urine Mucus 08/26/20 08/26/20 16:30 18:45 WBC RBC Hgb Hct MCV MCH MCHC RDW Std Deviation RDW Coeff of Kavon Plt Count MPV Immature Gran % (Auto) Neut % (Auto) Lymph % (Auto) [place] % (Auto) Eos % (Auto) Baso % (Auto) Absolute Neuts (auto) Absolute Lymphs (auto) Nucleated RBC % Platelet Estimate RBC Morphology Anisocytosis Microcytosis Ovalocytes Trisha Cells Acanthocytes (Spur) Schistocytes PT INR APTT Sodium Potassium Chloride Carbon Dioxide Anion Gap BUN Creatinine Estim Creat Clear Calc Est GFR (MDRD) Af Amer Est GFR (MDRD) Non-Af BUN/Creatinine Ratio Glucose Lactic Acid 9.6 H* Calcium Total Bilirubin AST ALT Alkaline Phosphatase Total Protein Albumin Globulin Albumin/Globulin Ratio Urine Color [place] Urine Clarity Clear Urine pH 5.0 Ur Specific [place] 1.020 Urine Protein 15 H Urine Glucose (UA) Normal Urine Ketones 5 H Urine Occult Blood Negative Urine Nitrite Negative Urine Bilirubin 3 H Urine Urobilinogen Normal Ur Leukocyte Esterase 25 H Urine RBC 0 SEEN Urine WBC 0 SEEN Ur Squamous Epith Cells 0 SEEN Urine Bacteria 0 SEEN Urine Mucus 0 SEEN Mixed venous gas reveals a pH of 7.12, PCO2 24, PaO2 43.4, bicarb of 7.9 with a base excess of -21.4 and a 64.9% saturation. Represents a significant metabolic acidosis. White count is elevated 19.8 thousand. There is evidence of acute injury to the kidney with a creatinine of 2.53. Urine is not cloudy as I was informed. Based on the information at the urine appears cloudy she was started on Rocephin for the source of her infection. Electrolyte panels marked for hyperkalemia due to the metabolic acidosis. Plan is to correct the metabolic acidosis i.e. hypotension Spoke with daughter and her regarding CODE STATUS. Patient remains a full go at this time. Therefore, the hospitalist has been paged and will discuss case with hospitalist for admission ICU ABG Data ABG results: ABG 08/26/20 08/26/20 18:31 19:58 Specimen Type LEW ART Sample Site R Brach pH 7.05 L* Bicarbonate Actual 7.5 L Total CO2 8 Base Excess -23 L O2 Saturation 99 O2 % 100 ABG pCO2 27.1 L ABG pO2 189 H Marcos Test Positive VBG pH 7.12 L* VBG pO2 43 H VBG HCO3 8 L VBG Total CO2 9 L VBG O2 Sat (Calc) 65 VBG Base Excess -21 L POC Mix VBG pCO2 Pt Tmp 24.0 L O2 Delivery Device Room Air NRB Crit Call To/Read Back Yes Yes Radiography Chest X-Ray - ED: 1 View, Read by ED Physician, Heart, Mediastinum, Bony Structures, No Acute Disease and - (Poor inspiratory volume. There may be atelectasis right lower lobe with the diaphragmatic border. There is no effusion. There is no evidence of pneumothorax. The central line is in proper position. The x-ray was interpreted by me at 04/03/2007) Diagnostic Testing: Radiology Impression Chest X-Ray 08/26/20 19:00 IMPRESSION: Low lung volumes. Persistent elevation of the right hemidiaphragm. Lungs are otherwise clear. Interval removal of left-sided PICC. Interval placement of a right-sided PICC with tip at the RA/SVC junction and possibly fractured at the right axilla. Electronically Signed: Adam Bradley MD at 19:24 EDT Tel , Service support , EKG Initial EKG: Interpretation: Sinus Tachycardia (Sinus tachycardia with a ventricular rate 120. [place] interval is 192 ms. Cures duration 102 ms. QT duration 236 ms. [place] is normal. Other than the tachycardia the EKG is unremarkable. There is motion artifact due to her breathing.) Procedures Other Procedures Procedure(s): Patient had altered mental status and is hypotensive. She is unable to give consent for procedure. Patient was prepped draped sterile manner and protocol for central line placement was adhered to. The chest was prepped draped in sterile fashion. The skin was anesthetized 1% lidocaine. The right subclavian vein was cannulated on the first attempt with finder needle. The vessel again was cannulated successfully on first attempt on the way in. Using Seldinger technique, a 7.5 [place] triple-lumen was placed. Blood was aspirated from all 3 ports. Lines were flushed. Blood was drawn prior to flushing lines. The line was sutured in place. Chest x-ray was obtained. Critical Care Time Critical care time (excluding procedures): 30-74 minutes (42 minutes), Including time spent: (Obtaining history, physical examination, review of prior ER visit, review of documentation from assisted, discussion with daughter regarding quality of life, CODE STATUS and appropriate measures), Discussing w/Patient &/or Family/Traffic Incident Management Manager, Discussing w/Consultants, Arranging Admission or Transfer and - (Patient is a full code. Daughter is the POA for healthcare. She would like to speak to her before making any change in her CODE STATUS.) Discharge Plan Dx/Rx/DC Orders Clinical Impression: Acute hyperkalemia, Acute kidney injury (nontraumatic), Encephalopathy acute, Hypothermia, Shock, High anion gap metabolic acidosis, Acute hypotension, Hypoglycemia, Anemia, chronic disease Disposition Disposition: Acute Care Hospital [facility]
--- NOTE | 2020-08-26 18:32 | CPS ---
CRITICAL BLOOD GAS RESULTS READ TO DR. SANTO AND VERIFIED.
[2020-08-26 18:35] LABS: Blood Gas Specimen Type VEN; O2 Delivery Device Room Air; VBG BASE EXCESS -21 mmol/L (-1.0-3.5); VBG Bicarbonate 8 mmol/L (22-26); VBG PO2 43 mmHg (25-40); VBG SO2 65 % (50-70); VBG TCO2 9 mmol/L (23-33); VBG pH 7.12 (7.32-7.42)
[2020-08-26] MEDS: 0.9% Normal Saline 1,000 ML 999 ML IV ×2 (18:37→18:44)
[2020-08-26 18:40] LABS: Absolute Lymphocyte Count 1.42 X10^3/uL (0.83-4.51); Absolute Neutrophil Count 17.4 X10^3/uL (2.0-7.7); Basophil# 0.03 X10^3/uL; Basophil% 0.2 % (0-1); Hematocrit 28.6 % (37-47); Lymphocyte # 1.42 X10^3/ul (0.83-4.51); Lymphocyte % 7.2 % (19-41); Mean Corp Hgb Conc 31.5 g/dL (32-36); Mean Corpuscular Hgb 26.9 pg (27.0-32.0); Mean Corpuscular Volume 85.4 fL (81-99); Mean Platelet Vol. 10.7 fl (6.2-12.0); Monocyte# 0.36 X10^3/uL; Monocyte% 1.8 % (0-10); NRBC Flagged by Analyzer 0.3 % (0-5); Neutrophil # 17.39 X10^3/uL (2.7-7.7); Neutrophil % 87.9 % (47-70); POSITIVE MORPHOLOGY YES; Platelet Count 180 K/mm3 (150-450); RBC Distribution Width CV 20.9 % (11.6-14.6); RBC Distribution Width SD 62.9 fl (35.1-43.9); Red Blood Count 3.35 M/mm3 (4.2-5.4); White Blood Count 19.8 K/mm3 (4.4-11.0)
[2020-08-26] MEDS: Dextrose 50%-Water 25 GM/50 ML DISP.SYRIN IV ×2 (18:44→23:10)
[2020-08-26 18:50] LABS: Differential Indicated SCAN CRITERIA MET
[2020-08-26 18:51] LABS: International Normalized Ratio 1.6; Partial Thromboplast Time 36.4 Seconds (24.1-36.2); Prothrombin Time (Protime)PT. 17.9 SECONDS (11.7-14.9)
[2020-08-26 18:55] LABS: Color, Urine Amber (Yellow); Glucose, Dipstick Normal (Normal); Ketone-Dipstick 5 mg/dl (Negative); Leukocyte Esterase-Dipstick 25 /ul (Negative); Nitrite-Dipstick Negative (Negative); Occult Blood-Urine Negative /ul (Negative); Protein-Dipstick 15 mg/dl (Negative); Urine Clarity Clear (Clear); Urine Urobilinogen Normal (Normal)
[2020-08-26 18:56] LABS: Bacteria 0 SEEN /hpf (None Seen); Mucous, Urine 0 SEEN /hpf (<or=2+); Red Blood Cells-Urine 0 SEEN /hpf (0-5); Squamous Epithelial Cells - UA 0 SEEN /hpf (5-10); White Blood Cells 0 SEEN /hpf (0-5)
[2020-08-26 18:57] LABS: Urine Bilirubin Dipstick 3 mg/dL (Negative)
[2020-08-26 18:59] LABS: ALB/GLOB Ratio 0.6 RATIO (0.9-2.4); AST(SGOT) 23 U/L (15-37); Alanine Aminotransfer ALT/SGPT 10 U/L (13-56); Albumin, Serum 1.5 g/dL (3.2-5.0); Alkaline Phosphatase 81 U/L (45-117); Anion Gap 19 (5-15); BUN 59 mg/dL (7-18); BUN/Creat Ratio 23.3 RATIO (10-20); Calcium,Total 7.7 mg/dL (8.5-10.1); Chloride 110 mmol/L (98-107); Creatinine, Serum 2.53 mg/dL (0.55-1.02); EST Glomerular Filtration Rate 20 mL/min (>60); Est Glom Filt Rate - Afr Amer 24 mL/min (>60); Globulin 2.5 g/dL (2.2-4.2); Glucose 240 mg/dL (74-106); Potassium 5.9 mmol/L (3.5-5.1); Sodium Level 139 mmol/L (136-145)
--- NOTE | 2020-08-26 19:00 | RAD_ITS ---
INDICATION: hypoxia EXAMINATION/TECHNIQUE: X-RAY - XR Chest 1 View COMPARISON: 08/24/2020. FINDINGS: Interval removal of left-sided PICC. Interval placement of a right-sided PICC with tip at the RA/SVC junction and possibly fractured at the right axilla. Low lung volumes. Tortuous and calcified thoracic aorta. The heart is not enlarged. Persistent elevation of the right hemidiaphragm. No pleural effusion or pneumothorax. Degenerative changes of the thoracic spine and shoulders. Partially visualized lower cervical fusion hardware RAD/Chest 1 View (Portable) IMPRESSION: Low lung volumes. Persistent elevation of the right hemidiaphragm. Lungs are otherwise clear. Interval removal of left-sided PICC. Interval placement of a right-sided PICC with tip at the RA/SVC junction and possibly fractured at the right axilla. Electronically Signed: Adam Bradley MD at 19:24 EDT Tel , Service support ,
[2020-08-26 19:07] LABS: Anisocytosis 1+; Burr Cells RARE; Platelet Estimate ADEQUATE (ADEQ); Red Cell Morphology N CHROM NORMAL (NORM C&C)
[2020-08-26 19:08] LABS: Acanthocytes 1+; Microcytosis RARE; Ovalocyte RARE; Schistocytes RARE
[2020-08-26 19:13] LABS: Lactic Acid 9.6 mmol/L (0.4-1.9)
--- NOTE | 2020-08-26 19:58 | CPS ---
CRITICAL VALUES ON ABG. DR. SANTO INFORMED OF THE CRITICAL VALUES.
[2020-08-26 20:06] LABS: Allen Test Positive; Base Excess -23 mmol/L (-2 to +2); Bicarbonate 7.5 mmol/L (22-26); Blood Gas Specimen Type ART; FI02 100; O2 Delivery Device NRB; PO2 189 mmHG (75-100); SITE R Brach; SO2 99 % (95-99); Total Carbon Dioxide 8 mmol/L; pCO2 27.1 mmHg (35-45); pH 7.05 (7.35-7.45)
[2020-08-26 20:21] LABS: Bedside Glucose 40 mg/dL (70-110)
[2020-08-26 20:21] LABS: Bedside Glucose 111 mg/dL (70-110)
[2020-08-26 20:35] LABS: Bedside Glucose 100 mg/dL (70-110)
--- NOTE | 2020-08-26 21:35 | PCM.HP.STD ---
HPI - General General Date of Admission: 08/26/20 Date of Service: 08/26/20 Chief Complaint: Generalized weakness HPI Narrative TIA WAGNER, is a 75 F who presents to the emergency room at [facility] after being transported from a local [facility] where she has been a resident for the last few months after undergoing neck surgery for cervical spinal stenosis. She became weak and lethargic at the fdc today and was transported in for evaluation. Labs obtained in the emergency room showed an elevated white blood cell count at 19.8, hemoglobin was 9, chemistry profile was remarkable for potassium of 5.9, creatinine of 2.53, BUN of 59, glucose of 240, lactic acid was elevated at 7.5, and patient's venous blood gas showed a pH of 7.12. Patient's urinalysis was unremarkable, her chest x-ray showed no infiltrates. Patient's neck wound appeared to be nonreddened and there was no evidence of discharge from her surgical neck wound. The exact etiology of the patient's elevated white blood cell count, elevated lactic acid, and acidosis was not apparent, patient's blood pressure was low and a central line was inserted and she was placed on Levophed. I had a conversation with the patient's POA (her daughter) in the presence of her daughters , they both agree that the patient has had declining health over the last few months and they agreed to make the patient a DNR CC arrest without intubation. Patient required a nonrebreather to maintain her pulse ox above 90%. Patient's overall prognosis is poor at this point, I suspect the patient has septic shock from an unknown etiology, she was given vancomycin and Zosyn and these will continue in the ICU. I have contacted Dr. Munson (electrical journeyman) and discussed her case with him. FOR[facility]LY [facility], LATER [facility] Medical History Anxiety CAD (coronary artery disease) Cerebral infarction Charcot's arthropathy Debility Depression Diabetes History of cellulitis Hyperlipidemia Hypertension Hypothyroidism Insomnia Iron deficiency anemia Kyphosis Mitral valve stenosis Peripheral vascular angioplasty status Rheumatoid arthritis Spinal stenosis Home Medications clopidogrel 75 mg PO DAILY 05/17/20 [History Last Taken 08/26/20] cyclobenzaprine 5 mg PO Q8H PRN 05/17/20 [History Last Taken Unknown] docusate sodium 100 mg PO DAILY PRN 05/17/20 [History Last Taken Unknown] duloxetine 60 mg PO DAILY 05/17/20 [History Last Taken 08/26/20] fluticasone propionate 1 spray NASAL DAILY 05/17/20 [History Last Taken 08/26/20] levothyroxine 100 mcg PO DAILY 05/17/20 [History Last Taken 08/26/20] linagliptin 5 mg PO DAILY 05/17/20 [History Last Taken 08/26/20] lisinopril 40 mg PO DAILY 05/17/20 [History Last Taken 08/26/20] metoprolol succinate 100 mg PO DAILY 05/17/20 [History Last Taken 08/26/20] pravastatin 40 mg PO QHS 05/17/20 [History Last Taken 08/25/20] pregabalin 100 mg PO BID 05/17/20 [History Last Taken 08/26/20] spironolactone 25 mg PO DAILY 05/17/20 [History Last Taken 08/26/20] acetaminophen [Tylenol Extra Strength] 1,000 mg PO TID PRN 08/26/20 [History Last Taken 08/26/20] albuterol sulfate 2.5 mg INHALATION TID 08/26/20 [History Last Taken 08/26/20] insulin aspart U-100 [Novolog Flexpen U-100 Insulin] See Protocol SUBCUT TIDCM 08/26/20 [History Last Taken 08/24/20] metformin 1,000 mg PO BID 08/26/20 [History Last Taken 08/26/20] nut.tx.gluc intol,lf,soy-fiber [Boost Glucose Control] 240 ml PO DAILY 08/26/20 [History Last Taken 08/25/20] pantoprazole 40 mg PO DAILY 08/26/20 [History Last Taken 08/26/20] sulfamethoxazole-trimethoprim [Bactrim DS] 1 tab PO DAILY 08/26/20 [History Last Taken 08/26/20] Allergy/AdvReac Type Severity Reaction Status Date / Time erythromycin base Allergy PT UNSURE Verified 08/26/20 18:08 OF REACTION exenatide [From Byetta] AdvReac Diarrhea Verified 08/26/20 18:08 furosemide [From Lasix] AdvReac Vomiting Verified 08/26/20 18:08 naproxen [From Naprosyn] AdvReac abd pain Verified 08/26/20 18:08 Surgical History Status post cervical spinal fusion Social History (Updated 08/26/20 @ 18:[address] Ziggy Jones MD) household members: none housing: [facility]dc Smoking Status: Former smoker details: Unknown substance use type: other details: Unknown ROS ROS Narrative Review of systems was unobtainable due to lethargy and somnolence from the patient due to septic shock Review of Systems ROS Unobtainable: due to encephalopathy and other Details: Septic shock Vital Signs Vital Signs Vital Signs: 08/26/20 18:08 08/26/20 18:23 08/26/20 18:34 Temperature 98.0 F 98.0 F Temperature Source Axillary Axillary Pulse Rate 115 H Respiratory Rate 21 H Respiratory Effort Normal Respiratory Pattern Normal Blood Pressure 76/43 L Blood Pressure Mean 54 Pulse Ox 89 78 Oxygen Delivery Method Room Air Non-Rebreather Oxygen Flow Rate (L/min) 15 08/26/20 18:39 08/26/20 18:46 08/26/20 19:27 Temperature 98.0 F 96.0 F L Temperature Source Axillary Core Pulse Rate 111 H 112 H 106 H Respiratory Rate 26 H 22 H 14 Respiratory Effort Respiratory Pattern Blood Pressure 85/52 L 73/35 L 62/44 L Blood Pressure Mean 63 47 50 Pulse Ox 92 88 Oxygen Delivery Method Non-Rebreather Non-Rebreather Non-Rebreather Oxygen Flow Rate (L/min) 15 15 08/26/20 19:28 08/26/20 19:29 08/26/20 19:46 Temperature Temperature Source Pulse Rate 120 H 113 H Respiratory Rate 14 13 Respiratory Effort Respiratory Pattern Blood Pressure 62/44 L 84/46 L Blood Pressure Mean 50 58 Pulse Ox 88 Oxygen Delivery Method Non-Rebreather Non-Rebreather Non-Rebreather Oxygen Flow Rate (L/min) 15 15 08/26/20 20:13 08/26/20 20:25 08/26/20 20:26 Temperature 95.5 F L 95.5 F L Temperature Source Core Core Pulse Rate 114 H 114 H 115 H Respiratory Rate 16 16 17 Respiratory Effort Respiratory Pattern Blood Pressure 107/38 L 97/61 97/61 Blood Pressure Mean 61 73 73 Pulse Ox 94 94 94 Oxygen Delivery Method Non-Rebreather Non-Rebreather Oxygen Flow Rate (L/min) 08/26/20 20:34 08/26/20 20:50 Temperature 95.5 F L Temperature Source Core Pulse Rate 115 H 119 H Respiratory Rate 17 20 H Respiratory Effort Respiratory Pattern Blood Pressure 97/61 112/44 L Blood Pressure Mean 73 66 Pulse Ox 94 97 Oxygen Delivery Method Non-Rebreather Non-Rebreather Oxygen Flow Rate (L/min) 15 Weight Weight: 77 kg Body Mass Index (BMI) 30.0 Physical Exam Const Constitutional Narrative: Patient appears older than her stated age and appears extremely frail General Appearance: well kempt and well developed Orientation / Consciousness: awake, oriented to person, oriented to place, oriented to time, confused and lethargic HEENT normocephalic and head/scalp atraumatic Eyes PERRL, EOMs intact bilaterally and conjunctivae normal Neck nuchal rigidity, supple, no JVD, thyroid normal and no carotid bruits General: trachea midline Resp Resp Narrative: Breath sounds are distant bilaterally, patient's respirations are rapid and shallow Auscultation: Negative for rales, rhonchi or wheezes Cardio regular rate, regular rhythm, no murmurs, no rub and no gallops GI normal to inspection, nondistended, normoactive bowel sounds, soft to palpation, non-tender and non-distended Extremity normal to inspection and no clubbing, cyanosis or edema Skin no rashes or lesions noted General Skin Exam: no breakdown Neuro CN's II-XII intact bilaterally and no sensory deficits noted Neuro Narrative: Patient is somnolent Psych thought process normal Psych Narrative: Patient's affect is flat, she is somnolent Results Lab / Micro Data Result Diagrams: 08/26/20 16:30 08/26/20 16:30 Labs: Laboratory Results - last 24 hr 08/26/20 08/26/20 08/26/20 16:30 16:30 16:30 WBC 19.8 H RBC 3.35 L Hgb 9.0 L Hct 28.6 L MCV 85.4 MCH 26.9 L MCHC 31.5 L RDW Std Deviation 62.9 H RDW Coeff of Kavon 20.9 H Plt Count 180 MPV 10.7 Immature Gran % (Auto) 2.900 H Neut % (Auto) 87.9 H Lymph % (Auto) 7.2 L Otero % (Auto) 1.8 Eos % (Auto) 0.0 Baso % (Auto) 0.2 Absolute Neuts (auto) 17.4 H Absolute Lymphs (auto) 1.42 Nucleated RBC % 0.3 Platelet Estimate ADEQUATE RBC Morphology N CHROM Anisocytosis 1+ Microcytosis RARE Ovalocytes RARE Troy Cells RARE Acanthocytes (Spur) 1+ Schistocytes RARE PT 17.9 H INR 1.6 APTT 36.4 H Sodium 139 Potassium 5.9 H Chloride 110 H Carbon Dioxide 10.0 L Anion Gap 19 H BUN 59 H Creatinine 2.53 H Estim Creat Clear Calc 15.40 Est GFR (MDRD) Af Amer 24 L Est GFR (MDRD) Non-Af 20 L BUN/Creatinine Ratio 23.3 H Glucose 240 H Lactic Acid Calcium 7.7 L Total Bilirubin 0.40 AST 23 ALT 10 L Alkaline Phosphatase 81 Total Protein 4.0 L Albumin 1.5 L Globulin 2.5 Albumin/Globulin Ratio 0.6 L Urine Color Urine Clarity Urine pH Ur Specific [place] Urine Protein Urine Glucose (UA) Urine Ketones Urine Occult Blood Urine Nitrite Urine Bilirubin Urine Urobilinogen Ur Leukocyte Esterase Urine RBC Urine WBC Ur Squamous Epith Cells Urine Bacteria Urine Mucus POC Glucose 08/26/20 08/26/20 08/26/20 16:30 18:11 18:45 WBC RBC Hgb Hct MCV MCH MCHC RDW Std Deviation RDW Coeff of Kavon Plt Count MPV Immature Gran % (Auto) Neut % (Auto) Lymph % (Auto) Otero % (Auto) Eos % (Auto) Baso % (Auto) Absolute Neuts (auto) Absolute Lymphs (auto) Nucleated RBC % Platelet Estimate RBC Morphology Anisocytosis Microcytosis Ovalocytes Troy Cells Acanthocytes (Spur) Schistocytes PT INR APTT Sodium Potassium Chloride Carbon Dioxide Anion Gap BUN Creatinine Estim Creat Clear Calc Est GFR (MDRD) Af Amer Est GFR (MDRD) Non-Af BUN/Creatinine Ratio Glucose Lactic Acid 9.6 H* Calcium Total Bilirubin AST ALT Alkaline Phosphatase Total Protein Albumin Globulin Albumin/Globulin Ratio Urine Color Lilliana Urine Clarity Clear Urine pH 5.0 Ur Specific [place] 1.020 Urine Protein 15 H Urine Glucose (UA) Normal Urine Ketones 5 H Urine Occult Blood Negative Urine Nitrite Negative Urine Bilirubin 3 H Urine Urobilinogen Normal Ur Leukocyte Esterase 25 H Urine RBC 0 SEEN Urine WBC 0 SEEN Ur Squamous Epith Cells 0 SEEN Urine Bacteria 0 SEEN Urine Mucus 0 SEEN POC Glucose 40 L* 08/26/20 08/26/20 19:10 20:21 WBC RBC Hgb Hct MCV MCH MCHC RDW Std Deviation RDW Coeff of Kavon Plt Count MPV Immature Gran % (Auto) Neut % (Auto) Lymph % (Auto) Otero % (Auto) Eos % (Auto) Baso % (Auto) Absolute Neuts (auto) Absolute Lymphs (auto) Nucleated RBC % Platelet Estimate RBC Morphology Anisocytosis Microcytosis Ovalocytes Troy Cells Acanthocytes (Spur) Schistocytes PT INR APTT Sodium Potassium Chloride Carbon Dioxide Anion Gap BUN Creatinine Estim Creat Clear Calc Est GFR (MDRD) Af Amer Est GFR (MDRD) Non-Af BUN/Creatinine Ratio Glucose Lactic Acid Calcium Total Bilirubin AST ALT Alkaline Phosphatase Total Protein Albumin Globulin Albumin/Globulin Ratio Urine Color Urine Clarity Urine pH Ur Specific [place] Urine Protein Urine Glucose (UA) Urine Ketones Urine Occult Blood Urine Nitrite Urine Bilirubin Urine Urobilinogen Ur Leukocyte Esterase Urine RBC Urine WBC Ur Squamous Epith Cells Urine Bacteria Urine Mucus POC Glucose 111 H 100 ABG Data ABG results: ABG 08/26/20 08/26/20 18:31 19:58 Specimen Type LEW ART Sample Site R Brach pH 7.05 L* Bicarbonate Actual 7.5 L Total CO2 8 Base Excess -23 L O2 Saturation 99 O2 % 100 ABG pCO2 27.1 L ABG pO2 189 H Marcos Test Positive VBG pH 7.12 L* VBG pO2 43 H VBG HCO3 8 L VBG Total CO2 9 L VBG O2 Sat (Calc) 65 VBG Base Excess -21 L POC Mix VBG pCO2 Pt Tmp 24.0 L O2 Delivery Device Room Air NRB Crit Call To/Read Back Yes Yes Radiology Impression Chest X-Ray 08/26/20 19:00 IMPRESSION: Low lung volumes. Persistent elevation of the right hemidiaphragm. Lungs are otherwise clear. Interval removal of left-sided PICC. Interval placement of a right-sided PICC with tip at the RA/SVC junction and possibly fractured at the right axilla. Electronically Signed: Adam Bradley MD at 19:24 EDT Tel , Service support , Assessment & Plan Assessment/Plan (1) Shock: PLAN: 1. Probable septic shock-exact etiology is unclear at this point, patient will be admitted to ICU on Zosyn and vancomycin, blood cultures were obtained in the emergency room. Chest x-ray will be repeated tomorrow morning #2 hypoxic respiratory failure secondary to septic shock-patient's O2 sat will be monitored, again-patient is a DO NOT INTUBATE #3 acidosis secondary to septic shock-fluid will be administered #4 type 2 diabetes-blood sugars will be monitored, sliding scale insulin will be used #5 cervical spinal stenosis with recent cervical neck surgery #6 generalized debility secondary to rheumatoid arthritis, type 2 diabetes, and degenerative joint disease #7 encephalopathy secondary to septic shock #8 essential hypertension by history #9 anemia-etiology unclear, patient has a previous history of iron deficiency anemia, labs will be monitored #10 hyperkalemia-probably secondary to Aldactone usage at the [facility], [place], labs will be rechecked, her potassium level could be affected by her acidosis Charges/Coding Visit Charges Inpatient E&M: 40178 Init Hosp L3
--- NOTE | 2020-08-26 21:43 | ED.RN ---
JOHNNA RANDALL AT [facility] UPDATED WITH PTS ADMISSION AND CRITICAL STATUS.
[2020-08-26 22:37] LABS: Reflex Lactate? Y
[2020-08-26 22:45] LABS: Bedside Glucose 76 mg/dL (70-110)
[2020-08-26] MEDS: Heparin Injection (Vial) 5,000 UNIT/ML VIAL 5000 UNIT SC (22:57)
[2020-08-26] MEDS: 0.9% Normal Saline 1,000 ML 150 ML IV (22:58)
[2020-08-26] MEDS: 0.9% Saline Lock 10 ML Syringe IV (22:59)
[2020-08-27] VITALS (64 sets, daily range): BP systolic 62–137; BP diastolic 36–116; PULSE 97–133; RESP 12–22; TEMP 36.5–37.4; O2SAT 85–100
--- NOTE | 2020-08-27 00:22 | PCM.RX.CS ---
Consult Pharmacy has been consulted to manage selected antiobiotic: Vancomycin Type of Consult: New start Labs: Sodium 139 mmol/L (136-145) 08/26/20 16:30 Potassium 5.9 mmol/L (3.5-5.1) H 08/26/20 16:30 Chloride 110 mmol/L (98-107) H 08/26/20 16:30 Carbon Dioxide 10.0 mmol/L (21.0-32.0) L 08/26/20 16:30 Anion Gap 19 (5-15) H 08/26/20 16:30 BUN 59 mg/dL (7-18) H 08/26/20 16:30 Creatinine 2.53 mg/dL (0.55-1.02) H 08/26/20 16:30 Est GFR (MDRD) Af Amer 24 mL/min (>60) L 08/26/20 16:30 Est GFR (MDRD) Non-Af 20 mL/min (>60) L 08/26/20 16:30 BUN/Creatinine Ratio 23.3 RATIO (10-20) H 08/26/20 16:30 Glucose 240 mg/dL (74-106) H 08/26/20 16:30 Weight used for dosin.1 kg Goal Trough: 10-15 mcg/mL Pharmacy Plan for Drug Dosing: Pharmacy Service will continue to monitor and adjust dosing as required. Medications Discontinued Medications Vancomycin HCl 2,000 mg/ (Sodium Chloride) 540 mls @ 250 mls/hr IV X1 ONE Stop: 08/26/20 21:39 Last Admin: 08/26/20 23:08 Dose: Infused Documented by: DRAW TROUGH 08/28 WITH AM LABS PER CRCl < 20 AND NOT ON HEMODIALYSIS AND EVALUATE Labs to be done on [date and time ordered]: RANDOM 08/28 WITH AM LABS
[2020-08-27 00:49] LABS: Lactic Acid 7.5 mmol/L (0.4-1.9)
--- NOTE | 2020-08-27 01:42 | SEPSISNOTE ---
Sepsis Note Physical Exam/Vitals Subjective: Patient was seen and examined, she still requires Levophed to maintain her blood pressure, patient's repeat lactic acid was 7.5 On examination she appeared frail and unwell, she does not appear to be in any respiratory distress at this time, she is lethargic.. Vital signs as documented. Skin warm and dry and without overt rashes. Neck without JVD, thyroid appears normal, trachea is midline, neck is supple. Lungs clear, normal air movement was noted. Heart exam notable for regular rhythm, normal sounds and absence of murmurs, rubs or gallops. Abdomen unremarkable and without evidence of organomegaly, masses, or abdominal aortic enlargement, bowel sounds are present in all 4 quadrants, no abdominal tenderness was noted. Extremities nonedematous, no cyanosis was noted, no clubbing was noted. Neuro: Cranial nerves II through XII are grossly intact. Psych: Patient is lethargic, she is confused Objective: Chest X-Ray 08/26/20 19:00 IMPRESSION: Low lung volumes. Persistent elevation of the right hemidiaphragm. Lungs are otherwise clear. Interval removal of left-sided PICC. Interval placement of a right-sided PICC with tip at the RA/SVC junction and possibly fractured at the right axilla. Electronically Signed: Adam Bradley MD at 19:24 EDT Tel , Service support , Temp Pulse Resp BP Pulse Ox 97.7 F L 133 H 19 H 96/50 L 89 08/27/20 00:00 08/27/20 00:00 08/27/20 00:00 08/27/20 00:00 08/27/20 00:00 08/27/20 08/26/20 08/26/20 00:00 22:40 20:21 WBC RBC Hgb Hct MCV MCH MCHC RDW Std Deviation RDW Coeff of Kavon Plt Count MPV Immature Gran % (Auto) Neut % (Auto) Lymph % (Auto) Merrick % (Auto) Eos % (Auto) Baso % (Auto) Absolute Neuts (auto) Absolute Lymphs (auto) Nucleated RBC % Platelet Estimate RBC Morphology Anisocytosis Microcytosis Ovalocytes [place] Cells Acanthocytes (Spur) Schistocytes PT INR APTT Specimen Type Sample Site pH Bicarbonate Actual Total CO2 Base Excess O2 Saturation O2 % ABG pCO2 ABG pO2 Marcos Test VBG pH VBG pO2 VBG HCO3 VBG Total CO2 VBG O2 Sat (Calc) VBG Base Excess POC Mix VBG pCO2 Pt Tmp O2 Delivery Device Crit Call To/Read Back Sodium Potassium Chloride Carbon Dioxide Anion Gap BUN Creatinine Estim Creat Clear Calc Est GFR (MDRD) Af Amer Est GFR (MDRD) Non-Af BUN/Creatinine Ratio Glucose Lactic Acid 7.5 H* Calcium Total Bilirubin AST ALT Alkaline Phosphatase Total Protein Albumin Globulin Albumin/Globulin Ratio Urine Color Urine Clarity Urine pH Ur Specific [place] Urine Protein Urine Glucose (UA) Urine Ketones Urine Occult Blood Urine Nitrite Urine Bilirubin Urine Urobilinogen Ur Leukocyte Esterase Urine RBC Urine WBC Ur Squamous Epith Cells Urine Bacteria Urine Mucus POC Glucose 76 100 08/26/20 08/26/20 08/26/20 19:58 19:10 18:45 WBC RBC Hgb Hct MCV MCH MCHC RDW Std Deviation RDW Coeff of Kavon Plt Count MPV Immature Gran % (Auto) Neut % (Auto) Lymph % (Auto) Merrick % (Auto) Eos % (Auto) Baso % (Auto) Absolute Neuts (auto) Absolute Lymphs (auto) Nucleated RBC % Platelet Estimate RBC Morphology Anisocytosis Microcytosis Ovalocytes [place] Cells Acanthocytes (Spur) Schistocytes PT INR APTT Specimen Type ART Sample Site R Brach pH 7.05 L* Bicarbonate Actual 7.5 L Total CO2 8 Base Excess -23 L O2 Saturation 99 O2 % 100 ABG pCO2 27.1 L ABG pO2 189 H Marcos Test Positive VBG pH VBG pO2 VBG HCO3 VBG Total CO2 VBG O2 Sat (Calc) VBG Base Excess POC Mix VBG pCO2 Pt Tmp O2 Delivery Device NRB Crit Call To/Read Back Yes Sodium Potassium Chloride Carbon Dioxide Anion Gap BUN Creatinine Estim Creat Clear Calc Est GFR (MDRD) Af Amer Est GFR (MDRD) Non-Af BUN/Creatinine Ratio Glucose Lactic Acid Calcium Total Bilirubin AST ALT Alkaline Phosphatase Total Protein Albumin Globulin Albumin/Globulin Ratio Urine Color Lilliana Urine Clarity Clear Urine pH 5.0 Ur Specific [place] 1.020 Urine Protein 15 H Urine Glucose (UA) Normal Urine Ketones 5 H Urine Occult Blood Negative Urine Nitrite Negative Urine Bilirubin 3 H Urine Urobilinogen Normal Ur Leukocyte Esterase 25 H Urine RBC 0 SEEN Urine WBC 0 SEEN Ur Squamous Epith Cells 0 SEEN Urine Bacteria 0 SEEN Urine Mucus 0 SEEN POC Glucose 111 H 08/26/20 08/26/20 08/26/20 18:31 18:11 16:30 WBC RBC Hgb Hct MCV MCH MCHC RDW Std Deviation RDW Coeff of Kavon Plt Count MPV Immature Gran % (Auto) Neut % (Auto) Lymph % (Auto) Merrick % (Auto) Eos % (Auto) Baso % (Auto) Absolute Neuts (auto) Absolute Lymphs (auto) Nucleated RBC % Platelet Estimate RBC Morphology Anisocytosis Microcytosis Ovalocytes [place] Cells Acanthocytes (Spur) Schistocytes PT INR APTT Specimen Type LEW Sample Site pH Bicarbonate Actual Total CO2 Base Excess O2 Saturation O2 % ABG pCO2 ABG pO2 Marcos Test VBG pH 7.12 L* VBG pO2 43 H VBG HCO3 8 L VBG Total CO2 9 L VBG O2 Sat (Calc) 65 VBG Base Excess -21 L POC Mix VBG pCO2 Pt Tmp 24.0 L O2 Delivery Device Room Air Crit Call To/Read Back Yes Sodium Potassium Chloride Carbon Dioxide Anion Gap BUN Creatinine Estim Creat Clear Calc Est GFR (MDRD) Af Amer Est GFR (MDRD) Non-Af BUN/Creatinine Ratio Glucose Lactic Acid 9.6 H* Calcium Total Bilirubin AST ALT Alkaline Phosphatase Total Protein Albumin Globulin Albumin/Globulin Ratio Urine Color Urine Clarity Urine pH Ur Specific [place] Urine Protein Urine Glucose (UA) Urine Ketones Urine Occult Blood Urine Nitrite Urine Bilirubin Urine Urobilinogen Ur Leukocyte Esterase Urine RBC Urine WBC Ur Squamous Epith Cells Urine Bacteria Urine Mucus POC Glucose 40 L* 08/26/20 08/26/20 08/26/20 16:30 16:30 16:30 WBC 19.8 H RBC 3.35 L Hgb 9.0 L Hct 28.6 L MCV 85.4 MCH 26.9 L MCHC 31.5 L RDW Std Deviation 62.9 H RDW Coeff of Kavon 20.9 H Plt Count 180 MPV 10.7 Immature Gran % (Auto) 2.900 H Neut % (Auto) 87.9 H Lymph % (Auto) 7.2 L Merrick % (Auto) 1.8 Eos % (Auto) 0.0 Baso % (Auto) 0.2 Absolute Neuts (auto) 17.4 H Absolute Lymphs (auto) 1.42 Nucleated RBC % 0.3 Platelet Estimate ADEQUATE RBC Morphology N CHROM Anisocytosis 1+ Microcytosis RARE Ovalocytes RARE Trisha Cells RARE Acanthocytes (Spur) 1+ Schistocytes RARE PT 17.9 H INR 1.6 APTT 36.4 H Specimen Type Sample Site pH Bicarbonate Actual Total CO2 Base Excess O2 Saturation O2 % ABG pCO2 ABG pO2 Marcos Test VBG pH VBG pO2 VBG HCO3 VBG Total CO2 VBG O2 Sat (Calc) VBG Base Excess POC Mix VBG pCO2 Pt Tmp O2 Delivery Device Crit Call To/Read Back Sodium 139 Potassium 5.9 H Chloride 110 H Carbon Dioxide 10.0 L Anion Gap 19 H BUN 59 H Creatinine 2.53 H Estim Creat Clear Calc 15.40 Est GFR (MDRD) Af Amer 24 L Est GFR (MDRD) Non-Af 20 L BUN/Creatinine Ratio 23.3 H Glucose 240 H Lactic Acid Calcium 7.7 L Total Bilirubin 0.40 AST 23 ALT 10 L Alkaline Phosphatase 81 Total Protein 4.0 L Albumin 1.5 L Globulin 2.5 Albumin/Globulin Ratio 0.6 L Urine Color Urine Clarity Urine pH Ur Specific [place] Urine Protein Urine Glucose (UA) Urine Ketones Urine Occult Blood Urine Nitrite Urine Bilirubin Urine Urobilinogen Ur Leukocyte Esterase Urine RBC Urine WBC Ur Squamous Epith Cells Urine Bacteria Urine Mucus POC Glucose Assessment/Plan 1. Probable septic shock-continue present antibiotics and IV fluids as well as pressor agents, monitor labs #2 acute hypoxic respiratory failure secondary to #1 #3 acidosis secondary to #1 Attestation Sepsis Attestation: Sepsis re-evaluation was performed
[2020-08-27] MEDS: CHLORHEXIDINE GLUC 2% CLOTH 1 EACH TOWELETTE TOPICAL (04:35)
[2020-08-27 04:57] LABS: Absolute Lymphocyte Count 1.88 X10^3/uL (0.83-4.51); Absolute Neutrophil Count 27.3 X10^3/uL (2.0-7.7); Basophil# 0.18 X10^3/uL; Basophil% 0.6 % (0-1); Eosinophils% 0.7 % (0-5); Hematocrit 33.1 % (37-47); Hemoglobin 10.4 g/dL (12.0-15.0); Lymphocyte # 1.88 X10^3/ul (0.83-4.51); Lymphocyte % 6.2 % (19-41); Mean Corp Hgb Conc 31.4 g/dL (32-36); Mean Corpuscular Hgb 26.7 pg (27.0-32.0); Mean Corpuscular Volume 85.1 fL (81-99); Mean Platelet Vol. 9.9 fl (6.2-12.0); Monocyte# 0.38 X10^3/uL; Monocyte% 1.3 % (0-10); NRBC Flagged by Analyzer 0.2 % (0-5); Neutrophil # 27.33 X10^3/uL (2.7-7.7); POSITIVE COUNT YES; POSITIVE DIFFERENTIAL YES; POSITIVE MORPHOLOGY YES; Platelet Count 246 K/mm3 (150-450); RBC Distribution Width CV 21.2 % (11.6-14.6); RBC Distribution Width SD 64.1 fl (35.1-43.9); Red Blood Count 3.89 M/mm3 (4.2-5.4); White Blood Count 30.3 K/mm3 (4.4-11.0)
[2020-08-27 05:00] LABS: Differential Indicated SCAN CRITERIA MET
[2020-08-27 05:20] LABS: ALB/GLOB Ratio 0.5 RATIO (0.9-2.4); AST(SGOT) 60 U/L (15-37); Alanine Aminotransfer ALT/SGPT 16 U/L (13-56); Albumin, Serum 1.6 g/dL (3.2-5.0); Alkaline Phosphatase 92 U/L (45-117); Anion Gap 12 (5-15); Anisocytosis 1+; BUN 52 mg/dL (7-18); BUN/Creat Ratio 22.7 RATIO (10-20); Burr Cells 3+; Calcium,Total 7.4 mg/dL (8.5-10.1); Chloride 117 mmol/L (98-107); Creatinine, Serum 2.29 mg/dL (0.55-1.02); EST Glomerular Filtration Rate 22 mL/min (>60); Est Glom Filt Rate - Afr Amer 27 mL/min (>60); Estimated Creatinine Clearance 18.51 ml/min; Glucose 84 mg/dL (74-106); Potassium 5.6 mmol/L (3.5-5.1); Protein, Total 4.6 g/dL (6.4-8.2); Schistocytes RARE; Sodium Level 142 mmol/L (136-145); Target Cells 1+
--- NOTE | 2020-08-27 05:54 | EX.PCM.CONCC ---
Assessment & Plan Assessment/Plan (1) Septic shock: PLAN: RECOMMENDATIONS: 1. Continue Levophed to maintain a mean arterial pressure at or above 65 mmHg. 2. Continue broad-spectrum empiric antimicrobials. 3. Patient to remain n.p.o. for now. 4. Obtain soft tissue neck CT. 5. Wean supplemental oxygen to maintain saturations at or above 90%. 6. Obtain infectious diseases and nephrology consultations. 7. Avoid sedating medications. 8. Continue appropriate ICU prophylaxis. IMPRESSIONS: 1. Septic shock Unclear precipitating infectious etiology. However, given that she recently underwent cervical spinal surgery, will obtain CT to ensure stability and hardware and rule out infection. Cultures are still pending. The patient has been adequately volume resuscitated. Therefore, she will be maintained on vasopressor support in an attempt to maintain a mean arterial pressure at or above 65 mmHg. Continue broad-spectrum antimicrobials for now. Infectious diseases consultation is pending. 2. Acute kidney injury/anion gap metabolic acidosis/hyperkalemia Likely prerenal in etiology with a component of ischemic ATN in the setting of #1. Nephrology has been consulted to evaluate the patient. I am concerned about the potential need for dialysis. 3. Acute hypoxemic respiratory failure Repeat chest x-ray is currently pending to evaluate for the presence of an evolving pulmonary infectious process. In the interim, the patient will be continued on supplemental oxygen to maintain saturations at or above 90%. The patient is to remain n.p.o. pending improvement in her mentation. 4. Encephalopathy Most likely metabolic in etiology. Plan to continue current supportive measures as noted above. Avoid sedating medications. 5. Cervical spinal stenosis status post recent surgery/rheumatoid arthritis/anemia/hypertension Complicates care, management, recovery and prognosis. Continue to hold antihypertensives/diuretics. TIME: 42 minutes of critical care time, independent of procedures, was spent addressing the patient's septic shock, acute kidney injury, anion gap metabolic acidosis, acute hypoxemic respiratory failure, encephalopathy, review of all data and collaboration with the care team. ([id number]) HPI Consult Data Date of Consult: 08/27/20 HPI Narrative Reason for Consultation: Septic shock HPI Narrative: The patient is a 75-year-old female, with a history as outlined below, who presented to the emergency department on August 26 from her nursing home facility with encephalopathy. The patient was also noted to be tachycardic, tachypneic and hypotensive. The patient recently underwent cervical spine surgery in the last several months is apparently been residing in a assisted since that time. History pertinent to the patient's hospitalization was obtained primarily via chart review, as the patient is far too encephalopathic to provide any additional detail. On presentation to the emergency department, the patient was noted to be afebrile but was tachycardic, tachypneic and hypotensive with a presenting blood pressure of 74/43 mmHg. Laboratory evaluation revealed an elevated white blood cell count to 20,000. Coagulation profile revealed an INR of 1.6. Chemistry profile was notable for a potassium of 5.9, chloride of 110, bicarbonate of 10.0, anion gap of 19, BUN of 59 and creatinine of 2.53. Lactate was elevated at 9.6. Urine analysis was largely unrevealing. Chest x-ray was largely unrevealing. While in the emergency department a subclavian triple-lumen catheter was placed. Although the patient did receive supplemental IV fluid hydration, she remained hypotensive, requiring the initiation of vasopressor support. She was started on broad-spectrum antimicrobials and admitted to the medical intensive care unit for further management. [facility] Medical History (Updated 08/27/20 @ 09:[address] Michael Ferrer MD) Anxiety CAD (coronary artery disease) Cerebral infarction Charcot's arthropathy Debility Depression Diabetes History of cellulitis Hyperlipidemia Hypertension Hypothyroidism Insomnia Iron deficiency anemia Kyphosis Mitral valve stenosis Peripheral vascular angioplasty status Rheumatoid arthritis Spinal stenosis Home Medications clopidogrel 75 mg PO DAILY 05/17/20 [History Last Taken 08/26/20] cyclobenzaprine 5 mg PO Q8H PRN 05/17/20 [History Last Taken Unknown] docusate sodium 100 mg PO DAILY PRN 05/17/20 [History Last Taken Unknown] duloxetine 60 mg PO DAILY 05/17/20 [History Last Taken 08/26/20] fluticasone propionate 1 spray NASAL DAILY 05/17/20 [History Last Taken 08/26/20] levothyroxine 100 mcg PO DAILY 05/17/20 [History Last Taken 08/26/20] linagliptin 5 mg PO DAILY 05/17/20 [History Last Taken 08/26/20] lisinopril 40 mg PO DAILY 05/17/20 [History Last Taken 08/26/20] metoprolol succinate 100 mg PO DAILY 05/17/20 [History Last Taken 08/26/20] pravastatin 40 mg PO QHS 05/17/20 [History Last Taken 08/25/20] pregabalin 100 mg PO BID 05/17/20 [History Last Taken 08/26/20] spironolactone 25 mg PO DAILY 05/17/20 [History Last Taken 08/26/20] acetaminophen [Tylenol Extra Strength] 1,000 mg PO TID PRN 08/26/20 [History Last Taken 08/26/20] albuterol sulfate 2.5 mg INHALATION TID 08/26/20 [History Last Taken 08/26/20] insulin aspart U-100 [Novolog Flexpen U-100 Insulin] See Protocol SUBCUT TIDCM 08/26/20 [History Last Taken 08/24/20] metformin 1,000 mg PO BID 08/26/20 [History Last Taken 08/26/20] nut.tx.gluc intol,lf,soy-fiber [Boost Glucose Control] 240 ml PO DAILY 08/26/20 [History Last Taken 08/25/20] pantoprazole 40 mg PO DAILY 08/26/20 [History Last Taken 08/26/20] sulfamethoxazole-trimethoprim [Bactrim DS] 1 tab PO DAILY 08/26/20 [History Last Taken 08/26/20] Allergy/AdvReac Type Severity Reaction Status Date / Time erythromycin base Allergy PT UNSURE Verified 08/26/20 18:08 OF REACTION exenatide [From Byetta] AdvReac Diarrhea Verified 08/26/20 18:08 furosemide [From Lasix] AdvReac Vomiting Verified 08/26/20 18:08 naproxen [From Naprosyn] AdvReac abd pain Verified 08/26/20 18:08 Surgical History Status post cervical spinal fusion Social History (Updated 08/26/20 @ 18:[address] Ziggy Jones MD) household members: none housing: assisted Smoking Status: Former smoker details: Unknown substance use type: other details: Unknown ROS Review of Systems ROS Unobtainable: due to encephalopathy Physical Exam Const General Appearance: lethargic and ill appearing HEENT normocephalic and head/scalp atraumatic Mouth: dry mucous membranes Eyes PERRL Neck supple Neck Narrative: Posterior neck wound appears intact without any purulence General: trachea midline Resp Effort and Inspection: tachypneic Auscultation: Negative for rales, rhonchi or wheezes Cardio S1 normal heart sound, S2 normal heart sound and no murmurs Rate: tachycardic GI normal to inspection, nondistended, normoactive bowel sounds Extremity no clubbing, cyanosis or edema Skin no rashes or lesions noted Neuro Sensorium / Orientation: lethargic and somnolent Psych Mood & Affect: flat affect Lab / Micro Data Result Diagrams: 08/27/20 04:45 08/27/20 04:45 Labs: Laboratory Results - last 24 hr 08/26/20 08/26/20 08/26/20 16:30 16:30 16:30 WBC 19.8 H RBC 3.35 L Hgb 9.0 L Hct 28.6 L MCV 85.4 MCH 26.9 L MCHC 31.5 L RDW Std Deviation 62.9 H RDW Coeff of Kavon 20.9 H Plt Count 180 MPV 10.7 Immature Gran % (Auto) 2.900 H Neut % (Auto) 87.9 H Lymph % (Auto) 7.2 L [place] % (Auto) 1.8 Eos % (Auto) 0.0 Baso % (Auto) 0.2 Absolute Neuts (auto) 17.4 H Absolute Lymphs (auto) 1.42 Nucleated RBC % 0.3 Diff Path Review Platelet Estimate ADEQUATE RBC Morphology N CHROM Anisocytosis 1+ Microcytosis RARE Target Cells Ovalocytes RARE Trisha Cells RARE Acanthocytes (Spur) 1+ Schistocytes RARE PT 17.9 H INR 1.6 APTT 36.4 H Sodium 139 Potassium 5.9 H Chloride 110 H Carbon Dioxide 10.0 L Anion Gap 19 H BUN 59 H Creatinine 2.53 H Estim Creat Clear Calc 15.40 Est GFR (MDRD) Af Amer 24 L Est GFR (MDRD) Non-Af 20 L BUN/Creatinine Ratio 23.3 H Glucose 240 H Lactic Acid Calcium 7.7 L Total Bilirubin 0.40 AST 23 ALT 10 L Alkaline Phosphatase 81 Total Protein 4.0 L Albumin 1.5 L Globulin 2.5 Albumin/Globulin Ratio 0.6 L Urine Color Urine Clarity Urine pH Ur Specific [place] Urine Protein Urine Glucose (UA) Urine Ketones Urine Occult Blood Urine Nitrite Urine Bilirubin Urine Urobilinogen Ur Leukocyte Esterase Urine RBC Urine WBC Ur Squamous Epith Cells Urine Bacteria Urine Mucus POC Glucose 08/26/20 08/26/20 08/26/20 16:30 18:11 18:45 WBC RBC Hgb Hct MCV MCH MCHC RDW Std Deviation RDW Coeff of Kavon Plt Count MPV Immature Gran % (Auto) Neut % (Auto) Lymph % (Auto) [place] % (Auto) Eos % (Auto) Baso % (Auto) Absolute Neuts (auto) Absolute Lymphs (auto) Nucleated RBC % Diff Path Review Platelet Estimate RBC Morphology Anisocytosis Microcytosis Target Cells Ovalocytes Trisha Cells Acanthocytes (Spur) Schistocytes PT INR APTT Sodium Potassium Chloride Carbon Dioxide Anion Gap BUN Creatinine Estim Creat Clear Calc Est GFR (MDRD) Af Amer Est GFR (MDRD) Non-Af BUN/Creatinine Ratio Glucose Lactic Acid 9.6 H* Calcium Total Bilirubin AST ALT Alkaline Phosphatase Total Protein Albumin Globulin Albumin/Globulin Ratio Urine Color [place] Urine Clarity Clear Urine pH 5.0 Ur Specific Hel[place] 1.020 Urine Protein 15 H Urine Glucose (UA) Normal Urine Ketones 5 H Urine Occult Blood Negative Urine Nitrite Negative Urine Bilirubin 3 H Urine Urobilinogen Normal Ur Leukocyte Esterase 25 H Urine RBC 0 SEEN Urine WBC 0 SEEN Ur Squamous Epith Cells 0 SEEN Urine Bacteria 0 SEEN Urine Mucus 0 SEEN POC Glucose 40 L* 08/26/20 08/26/20 08/26/20 19:10 20:21 22:40 WBC RBC Hgb Hct MCV MCH MCHC RDW Std Deviation RDW Coeff of Kavon Plt Count MPV Immature Gran % (Auto) Neut % (Auto) Lymph % (Auto) [place] % (Auto) Eos % (Auto) Baso % (Auto) Absolute Neuts (auto) Absolute Lymphs (auto) Nucleated RBC % Diff Path Review Platelet Estimate RBC Morphology Anisocytosis Microcytosis Target Cells Ovalocytes [place] Cells Acanthocytes (Spur) Schistocytes PT INR APTT Sodium Potassium Chloride Carbon Dioxide Anion Gap BUN Creatinine Estim Creat Clear Calc Est GFR (MDRD) Af Amer Est GFR (MDRD) Non-Af BUN/Creatinine Ratio Glucose Lactic Acid Calcium Total Bilirubin AST ALT Alkaline Phosphatase Total Protein Albumin Globulin Albumin/Globulin Ratio Urine Color Urine Clarity Urine pH Ur Specific [place] Urine Protein Urine Glucose (UA) Urine Ketones Urine Occult Blood Urine Nitrite Urine Bilirubin Urine Urobilinogen Ur Leukocyte Esterase Urine RBC Urine WBC Ur Squamous Epith Cells Urine Bacteria Urine Mucus POC Glucose 111 H 100 76 08/27/20 08/27/20 08/27/20 00:00 04:45 04:45 WBC 30.3 H* RBC 3.89 L Hgb 10.4 L Hct 33.1 L MCV 85.1 MCH 26.7 L MCHC 31.4 L RDW Std Deviation 64.1 H RDW Coeff of Kavon 21.2 H Plt Count 246 MPV 9.9 Immature Gran % (Auto) 1.200 H Neut % (Auto) 90.0 H Lymph % (Auto) 6.2 L [place] % (Auto) 1.3 Eos % (Auto) 0.7 Baso % (Auto) 0.6 Absolute Neuts (auto) 27.3 H Absolute Lymphs (auto) 1.88 Nucleated RBC % 0.2 Diff Path Review May foll Platelet Estimate RBC Morphology Anisocytosis 1+ Microcytosis Target Cells 1+ Ovalocytes Trisha Cells 3+ Acanthocytes (Spur) Schistocytes RARE PT INR APTT Sodium 142 Potassium 5.6 H Chloride 117 H Carbon Dioxide 13.0 L Anion Gap 12 BUN 52 H Creatinine 2.29 H Estim Creat Clear Calc 18.51 Est GFR (MDRD) Af Amer 27 L Est GFR (MDRD) Non-Af 22 L BUN/Creatinine Ratio 22.7 H Glucose 84 Lactic Acid 7.5 H* Calcium 7.4 L Total Bilirubin 0.40 AST 60 H ALT 16 Alkaline Phosphatase 92 Total Protein 4.6 L Albumin 1.6 L Globulin 3.0 Albumin/Globulin Ratio 0.5 L Urine Color Urine Clarity Urine pH Ur Specific [place] Urine Protein Urine Glucose (UA) Urine Ketones Urine Occult Blood Urine Nitrite Urine Bilirubin Urine Urobilinogen Ur Leukocyte Esterase Urine RBC Urine WBC Ur Squamous Epith Cells Urine Bacteria Urine Mucus POC Glucose ABG Data ABG results: ABG 08/26/20 08/26/20 18:31 19:58 Specimen Type LEW ART Sample Site R Brach pH 7.05 L* Bicarbonate Actual 7.5 L Total CO2 8 Base Excess -23 L O2 Saturation 99 O2 % 100 ABG pCO2 27.1 L ABG pO2 189 H Marcos Test Positive VBG pH 7.12 L* VBG pO2 43 H VBG HCO3 8 L VBG Total CO2 9 L VBG O2 Sat (Calc) 65 VBG Base Excess -21 L POC Mix VBG pCO2 Pt Tmp 24.0 L O2 Delivery Device Room Air NRB Crit Call To/Read Back Yes Yes Radiology Impression Chest X-Ray 08/26/20 19:00 IMPRESSION: Low lung volumes. Persistent elevation of the right hemidiaphragm. Lungs are otherwise clear. Interval removal of left-sided PICC. Interval placement of a right-sided PICC with tip at the RA/SVC junction and possibly fractured at the right axilla. Electronically Signed: Adam Bradley MD at 19:24 EDT Tel , Service support , Charges/Coding Procedures Hospitalists Procedures: [id number] Critial Care 1st Hr
[2020-08-27] MEDS: 0.9% Normal Saline 1,000 ML 150 ML IV (05:55)
--- NOTE | 2020-08-27 05:55 | RAD_ITS ---
STUDY: X-RAY CHEST REASON FOR EXAM: Female, 75 years old. Respiratory failure TECHNIQUE: Single AP portable view of the chest. COMPARISON: Comparison is made with prior study dated 08/26/2020. FINDINGS: A right sided central catheter is seen with the tip in the right atrium. Stable elevation of the right hemidiaphragm. Minimal increased markings at the lung bases suggest some mild linear atelectasis. There is no demonstrated pleural abnormality. Normal size heart. Normal mediastinum and hudson. Normal visualized pulmonary arteries. There is atherosclerotic calcification of the aortic arch with tortuosity. There are diffuse degenerative changes of the visualized thoracic spine. There is degenerative osteoarthritis of the bilateral shoulders. There is no demonstrated abnormality of the visualized soft tissue structures of the upper abdomen. RAD/Chest 1 View (Portable) IMPRESSION: Stable examination. Electronically Signed: Maciel Galindo MD at 8:51 EDT , Service support ,
[2020-08-27] MEDS: Heparin Injection (Vial) 5,000 UNIT/ML VIAL 5000 UNIT SC ×3 (06:14→22:05)
[2020-08-27] MEDS: 0.9% Saline Lock 10 ML Syringe IV (06:15)
[2020-08-27] MEDS: Dextrose 50%-Water 25 GM/50 ML DISP.SYRIN IV (06:19)
[2020-08-27 06:21] LABS: Bedside Glucose 71 mg/dL (70-110)
[2020-08-27 07:21] LABS: O2 Delivery Device Venti Mask; SITE R Brach; VBG BASE EXCESS -19 mmol/L (-1.0-3.5); VBG Bicarbonate 10 mmol/L (22-26); VBG PO2 96 mmHg (25-40); VBG SO2 95 % (50-70); VBG TCO2 11 mmol/L (23-33); VBG pCO2 30.7 mmHg (41-51); VBG pH 7.12 (7.32-7.42)
--- NOTE | 2020-08-27 07:41 | CT_ITS ---
STUDY: CT SOFT TISSUE NECK WITHOUT CONTRAST REASON FOR EXAM: Female, 75 years old. Pt septic with recent cervical surgery RADIATION DOSAGE (If Supplied By Facility): CTDIvol = ( 16.90 ) mGy, DLP = ( 502.58 ) mGycm TECHNIQUE: The patient was scanned in a multi-detector CT scanner. High resolution transaxial imaging was performed without the administration of intravenous contrast material. Sagittal and coronal images were reconstructed. Individualized dose optimization techniques were used for this CT. COMPARISON: Comparison is made with prior study dated 04/26/2020. FINDINGS: A right-sided central catheter is seen with the tip in the superior vena cava. Atherosclerotic calcification of the aortic arch. Infiltration and small effusion along the posterior aspect of the right upper lobe. The patient is status post laminectomy and fusion with rods and interpedicular screw fixation at the C2-C3, C3-C4, C4-C5, C5-6 and C6-C7 levels. Multilevel disc space narrowing and spondylosis. Straightening of the normal cervical lordosis. The interpedicular screw on the left side at the C2 level enters the medial aspect of the spinal canal. The spinal cord is intact. Persistent increased soft tissue density overlying the posterior aspect of the cervical spine at the surgical site suggestive of postoperative scarring. CT/Soft Tissue Neck without Contr IMPRESSION: Infiltration and small effusion along the posterior aspect of the right upper lobe. Status post multilevel laminectomy and interpedicular screw fixation as described. The distal tip of the left interpedicular screw at the C2 level lies along the medial aspect of the pedicle. The spinal cord is intact. Persistent postoperative soft tissue changes overlying the operative site although the previously seen fluid collection and air as resolved. Electronically Signed: Maciel Galindo MD at 9:32 EDT , Service support ,
[2020-08-27 08:30] LABS: Blood Gas Specimen Type ART; FI02 35
--- NOTE | 2020-08-27 09:09 | CASEMGMT ---
MOIZ noted patient is from [place]. MOIZ called [facility] and spoke with Erica. She said [facility] is a [facility] resident. SW will fax them updates. SW will also place a green sheet on chart if she is ready for discharge. Elyisa EASTON
--- NOTE | 2020-08-27 09:38 | CON.PCM.RE_ITS ---
Assessment & Plan Assessment/Plan (1) Acute kidney injury: (2) Hyperkalemia: (3) Metabolic acidosis: (4) Lactic acidosis: (5) Septic shock: PLAN: Normal baseline Cr STEPHAN is likely ischemia ATN. Oliguric No urgent need for HD. Will d/w daughter about the possibility of HD in the next 24-48 hrs Will give kayexalate Will start isotonic HC03 drip Keep MAP > 65 hemodynamic support and sepsis treatment as per ICU d/w Dr. anderson thank you. Will follow Call if any question Michael Ferrer MD HPI Consult Data Date of Consult: 08/27/20 HPI Narrative HPI Narrative: TIA WAGNER, is a 75 F who PMH of below. Pt was brought in to the hospital from [place] due to change in mental status In ED she was found to have leukocytosis and low BP along with hypoxemia. Patient was admitted for septic shock. On Zosyn and Vancomcyin. on levophed 15 mcg/min Patient;s DNI. On NRVM. Patient is obtunded. Renal team is consulted for hyperkalemia, metabolic acidosis and oliguria. UOP is 20 cc for the last 2 hrs ROS: unobtainable since the patient is obtunded [facility] Medical History (Updated 08/27/20 @ 09:[address] Michael Ferrer MD) Anxiety CAD (coronary artery disease) Cerebral infarction Charcot's arthropathy Debility Depression Diabetes History of cellulitis Hyperlipidemia Hypertension Hypothyroidism Insomnia Iron deficiency anemia Kyphosis Mitral valve stenosis Peripheral vascular angioplasty status Rheumatoid arthritis Spinal stenosis Home Medications clopidogrel 75 mg PO DAILY 05/17/20 [History Last Taken 08/26/20] cyclobenzaprine 5 mg PO Q8H PRN 05/17/20 [History Last Taken Unknown] docusate sodium 100 mg PO DAILY PRN 05/17/20 [History Last Taken Unknown] duloxetine 60 mg PO DAILY 05/17/20 [History Last Taken 08/26/20] fluticasone propionate 1 spray NASAL DAILY 05/17/20 [History Last Taken 08/26/20] levothyroxine 100 mcg PO DAILY 05/17/20 [History Last Taken 08/26/20] linagliptin 5 mg PO DAILY 05/17/20 [History Last Taken 08/26/20] lisinopril 40 mg PO DAILY 05/17/20 [History Last Taken 08/26/20] metoprolol succinate 100 mg PO DAILY 05/17/20 [History Last Taken 08/26/20] pravastatin 40 mg PO QHS 05/17/20 [History Last Taken 08/25/20] pregabalin 100 mg PO BID 05/17/20 [History Last Taken 08/26/20] spironolactone 25 mg PO DAILY 05/17/20 [History Last Taken 08/26/20] acetaminophen [Tylenol Extra Strength] 1,000 mg PO TID PRN 08/26/20 [History Last Taken 08/26/20] albuterol sulfate 2.5 mg INHALATION TID 08/26/20 [History Last Taken 08/26/20] insulin aspart U-100 [Novolog Flexpen U-100 Insulin] See Protocol SUBCUT TIDCM 08/26/20 [History Last Taken 08/24/20] metformin 1,000 mg PO BID 08/26/20 [History Last Taken 08/26/20] nut.tx.gluc intol,lf,soy-fiber [Boost Glucose Control] 240 ml PO DAILY 08/26/20 [History Last Taken 08/25/20] pantoprazole 40 mg PO DAILY 08/26/20 [History Last Taken 08/26/20] sulfamethoxazole-trimethoprim [Bactrim DS] 1 tab PO DAILY 08/26/20 [History Last Taken 08/26/20] Allergy/AdvReac Type Severity Reaction Status Date / Time erythromycin base Allergy PT UNSURE Verified 08/26/20 18:08 OF REACTION exenatide [From [place]] AdvReac Diarrhea Verified 08/26/20 18:08 furosemide [From Lasix] AdvReac Vomiting Verified 08/26/20 18:08 naproxen [From Naprosyn] AdvReac abd pain Verified 08/26/20 18:08 Surgical History Status post cervical spinal fusion Social History (Updated 08/26/20 @ 18:[address] Ziggy Jones MD) household members: none housing: intermediate Smoking Status: Former smoker details: Unknown substance use type: other details: Unknown Physical Exam Const General Appearance: lethargic Exam Limitations: altered mental status HEENT Head and Scalp: normocephalic and atraumatic Eyes conjunctivae normal Neck no lymphadenopathy Resp clear to auscultation bilaterally Cardio Rate: tachycardic Rhythm: regular rhythm Heart Sounds: S1 normal and S2 normal GI Auscultation: hypoactive bowel sounds Palpation: soft Percussion: normal to percussion Extremity General Extremity: other findings Other Details: no edema of LE Peripheral Pulses: Yes pulses 2+ throughout Skin General Skin Exam: no breakdown Neuro Neuro Narrative: obtunded. Lab / Micro Data Result Diagrams: 08/27/20 04:45 08/27/20 04:45 Labs: Laboratory Results - last 24 hr 08/26/20 08/26/20 08/26/20 16:30 16:30 16:30 WBC 19.8 H RBC 3.35 L Hgb 9.0 L Hct 28.6 L MCV 85.4 MCH 26.9 L MCHC 31.5 L RDW Std Deviation 62.9 H RDW Coeff of Kavon 20.9 H Plt Count 180 MPV 10.7 Immature Gran % (Auto) 2.900 H Neut % (Auto) 87.9 H Lymph % (Auto) 7.2 L [place] % (Auto) 1.8 Eos % (Auto) 0.0 Baso % (Auto) 0.2 Absolute Neuts (auto) 17.4 H Absolute Lymphs (auto) 1.42 Nucleated RBC % 0.3 Diff Path Review Platelet Estimate ADEQUATE RBC Morphology N CHROM Anisocytosis 1+ Microcytosis RARE Target Cells Ovalocytes RARE Trisha Cells RARE Acanthocytes (Spur) 1+ Schistocytes RARE PT 17.9 H INR 1.6 APTT 36.4 H Sodium 139 Potassium 5.9 H Chloride 110 H Carbon Dioxide 10.0 L Anion Gap 19 H BUN 59 H Creatinine 2.53 H Estim Creat Clear Calc 15.40 Est GFR (MDRD) Af Amer 24 L Est GFR (MDRD) Non-Af 20 L BUN/Creatinine Ratio 23.3 H Glucose 240 H Lactic Acid Calcium 7.7 L Total Bilirubin 0.40 AST 23 ALT 10 L Alkaline Phosphatase 81 Total Protein 4.0 L Albumin 1.5 L Globulin 2.5 Albumin/Globulin Ratio 0.6 L Urine Color Urine Clarity Urine pH Ur Specific [place] Urine Protein Urine Glucose (UA) Urine Ketones Urine Occult Blood Urine Nitrite Urine Bilirubin Urine Urobilinogen Ur Leukocyte Esterase Urine RBC Urine WBC Ur Squamous Epith Cells Urine Bacteria Urine Mucus POC Glucose 08/26/20 08/26/20 08/26/20 16:30 18:11 18:45 WBC RBC Hgb Hct MCV MCH MCHC RDW Std Deviation RDW Coeff of Kavon Plt Count MPV Immature Gran % (Auto) Neut % (Auto) Lymph % (Auto) [place] % (Auto) Eos % (Auto) Baso % (Auto) Absolute Neuts (auto) Absolute Lymphs (auto) Nucleated RBC % Diff Path Review Platelet Estimate RBC Morphology Anisocytosis Microcytosis Target Cells Ovalocytes Trisha Cells Acanthocytes (Spur) Schistocytes PT INR APTT Sodium Potassium Chloride Carbon Dioxide Anion Gap BUN Creatinine Estim Creat Clear Calc Est GFR (MDRD) Af Amer Est GFR (MDRD) Non-Af BUN/Creatinine Ratio Glucose Lactic Acid 9.6 H* Calcium Total Bilirubin AST ALT Alkaline Phosphatase Total Protein Albumin Globulin Albumin/Globulin Ratio Urine Color [place] Urine Clarity Clear Urine pH 5.0 Ur Specific [place] 1.020 Urine Protein 15 H Urine Glucose (UA) Normal Urine Ketones 5 H Urine Occult Blood Negative Urine Nitrite Negative Urine Bilirubin 3 H Urine Urobilinogen Normal Ur Leukocyte Esterase 25 H Urine RBC 0 SEEN Urine WBC 0 SEEN Ur Squamous Epith Cells 0 SEEN Urine Bacteria 0 SEEN Urine Mucus 0 SEEN POC Glucose 40 L* 08/26/20 08/26/20 08/26/20 19:10 20:21 22:40 WBC RBC Hgb Hct MCV MCH MCHC RDW Std Deviation RDW Coeff of Kavon Plt Count MPV Immature Gran % (Auto) Neut % (Auto) Lymph % (Auto) [place] % (Auto) Eos % (Auto) Baso % (Auto) Absolute Neuts (auto) Absolute Lymphs (auto) Nucleated RBC % Diff Path Review Platelet Estimate RBC Morphology Anisocytosis Microcytosis Target Cells Ovalocytes [place] Cells Acanthocytes (Spur) Schistocytes PT INR APTT Sodium Potassium Chloride Carbon Dioxide Anion Gap BUN Creatinine Estim Creat Clear Calc Est GFR (MDRD) Af Amer Est GFR (MDRD) Non-Af BUN/Creatinine Ratio Glucose Lactic Acid Calcium Total Bilirubin AST ALT Alkaline Phosphatase Total Protein Albumin Globulin Albumin/Globulin Ratio Urine Color Urine Clarity Urine pH Ur Specific [place] Urine Protein Urine Glucose (UA) Urine Ketones Urine Occult Blood Urine Nitrite Urine Bilirubin Urine Urobilinogen Ur Leukocyte Esterase Urine RBC Urine WBC Ur Squamous Epith Cells Urine Bacteria Urine Mucus POC Glucose 111 H 100 76 08/27/20 08/27/20 08/27/20 00:00 04:45 04:45 WBC 30.3 H* RBC 3.89 L Hgb 10.4 L Hct 33.1 L MCV 85.1 MCH 26.7 L MCHC 31.4 L RDW Std Deviation 64.1 H RDW Coeff of Kavon 21.2 H Plt Count 246 MPV 9.9 Immature Gran % (Auto) 1.200 H Neut % (Auto) 90.0 H Lymph % (Auto) 6.2 L [place] % (Auto) 1.3 Eos % (Auto) 0.7 Baso % (Auto) 0.6 Absolute Neuts (auto) 27.3 H Absolute Lymphs (auto) 1.88 Nucleated RBC % 0.2 Diff Path Review May foll Platelet Estimate RBC Morphology Anisocytosis 1+ Microcytosis Target Cells 1+ Ovalocytes [place] Cells 3+ Acanthocytes (Spur) Schistocytes RARE PT INR APTT Sodium 142 Potassium 5.6 H Chloride 117 H Carbon Dioxide 13.0 L Anion Gap 12 BUN 52 H Creatinine 2.29 H Estim Creat Clear Calc 18.51 Est GFR (MDRD) Af Amer 27 L Est GFR (MDRD) Non-Af 22 L BUN/Creatinine Ratio 22.7 H Glucose 84 Lactic Acid 7.5 H* Calcium 7.4 L Total Bilirubin 0.40 AST 60 H ALT 16 Alkaline Phosphatase 92 Total Protein 4.6 L Albumin 1.6 L Globulin 3.0 Albumin/Globulin Ratio 0.5 L Urine Color Urine Clarity Urine pH Ur Specific [place] Urine Protein Urine Glucose (UA) Urine Ketones Urine Occult Blood Urine Nitrite Urine Bilirubin Urine Urobilinogen Ur Leukocyte Esterase Urine RBC Urine WBC Ur Squamous Epith Cells Urine Bacteria Urine Mucus POC Glucose 08/27/20 06:14 WBC RBC Hgb Hct MCV MCH MCHC RDW Std Deviation RDW Coeff of Kavon Plt Count MPV Immature Gran % (Auto) Neut % (Auto) Lymph % (Auto) [place] % (Auto) Eos % (Auto) Baso % (Auto) Absolute Neuts (auto) Absolute Lymphs (auto) Nucleated RBC % Diff Path Review Platelet Estimate RBC Morphology Anisocytosis Microcytosis Target Cells Ovalocytes [place] Cells Acanthocytes (Spur) Schistocytes PT INR APTT Sodium Potassium Chloride Carbon Dioxide Anion Gap BUN Creatinine Estim Creat Clear Calc Est GFR (MDRD) Af Amer Est GFR (MDRD) Non-Af BUN/Creatinine Ratio Glucose Lactic Acid Calcium Total Bilirubin AST ALT Alkaline Phosphatase Total Protein Albumin Globulin Albumin/Globulin Ratio Urine Color Urine Clarity Urine pH Ur Specific [place] Urine Protein Urine Glucose (UA) Urine Ketones Urine Occult Blood Urine Nitrite Urine Bilirubin Urine Urobilinogen Ur Leukocyte Esterase Urine RBC Urine WBC Ur Squamous Epith Cells Urine Bacteria Urine Mucus POC Glucose 71 ABG Data ABG results: ABG 08/26/20 08/26/20 08/27/20 18:31 19:58 07:17 Specimen Type LEW ART ART Sample Site R Brach R Brach pH 7.05 L* Bicarbonate Actual 7.5 L Total CO2 8 Base Excess -23 L O2 Saturation 99 O2 % 100 35 ABG pCO2 27.1 L ABG pO2 189 H Marcos Test Positive VBG pH 7.12 L* 7.12 L* VBG pO2 43 H 96 H VBG HCO3 8 L 10 L VBG Total CO2 9 L 11 L VBG O2 Sat (Calc) 65 95 H VBG Base Excess -21 L -19 L POC Mix VBG pCO2 Pt Tmp 24.0 L 30.7 L O2 Delivery Device Room Air NRB Venti Mask Crit Call To/Read Back Yes Yes Yes Radiology Impression Chest X-Ray 08/26/20 19:00 IMPRESSION: Low lung volumes. Persistent elevation of the right hemidiaphragm. Lungs are otherwise clear. Interval removal of left-sided PICC. Interval placement of a right-sided PICC with tip at the RA/SVC junction and possibly fractured at the right axilla. Electronically Signed: Adam Bradley MD at 19:24 EDT Tel , Service support , Chest X-Ray 08/27/20 05:55 IMPRESSION: Stable examination. Electronically Signed: Maciel Galindo MD at 8:51 EDT , Service support , Soft Tissue Neck CT 08/27/20 07:41 IMPRESSION: Infiltration and small effusion along the posterior aspect of the right upper lobe. Status post multilevel laminectomy and interpedicular screw fixation as described. The distal tip of the left interpedicular screw at the C2 level lies along the medial aspect of the pedicle. The spinal cord is intact. Persistent postoperative soft tissue changes overlying the operative site although the previously seen fluid collection and air as resolved. Electronically Signed: Maciel Galindo MD at 9:32 EDT , Service support ,
--- NOTE | 2020-08-27 09:40 | CPS ---
Critical values on ABG obtained, Dr. Munson aware.
[2020-08-27] MEDS: TITRATION PARAMETER CHANGE 1 EACH IV (09:59)
[2020-08-27 10:15] LABS: M R Staph aureus DNA By PCR Negative (Negative); Probe Check PASS; Specimen Processing Control PASS
[2020-08-27] MEDS: Sodium Polystyrene Sulfonate 15 GM/60 ML UDC RC (12:06)
[2020-08-27 12:16] LABS: Bedside Glucose 73 mg/dL (70-110)
--- NOTE | 2020-08-27 13:22 | PCM.CONS.GEN ---
Assessment & Plan Assessment/Plan (1) Septic shock: PLAN: septic shock with STEPHAN, hypoxic resp failure, encephalopathy - unclear source. On pressors. Had c-spine decompression/fusion in 03/2020 complicated by some persistent drainage/wound. CT here of neck did not show any abscess. UA neg here, cxr relatively clear. Had covid in February but not screened here, will order pcr. Cont vanc. Will change zosyn to meropenem to have some STORAGE RECEIPT POSTER penetration. Will follow, thank you (2) Acute kidney injury: (3) Lactic acidosis: (4) Encephalopathy acute: HPI Consult Data Date of Consult: 08/27/20 HPI Narrative HPI Narrative: TIA WAGNER, is a 75 F who presented ECF with encephalopathy, hypotension. Had posterior decompression/fusion of c-spine in March at [facility], complicated by some persistent drainage, came to ED for that 05/17/20. Overnight, admitted to icu with septic shock on vanc/zosyn. Remains on pressors. Unable to provide history or ROS. [facility] Medical History Anxiety CAD (coronary artery disease) Cerebral infarction Charcot's arthropathy Debility Depression Diabetes History of cellulitis Hyperlipidemia Hypertension Hypothyroidism Insomnia Iron deficiency anemia Kyphosis Mitral valve stenosis Peripheral vascular angioplasty status Rheumatoid arthritis Spinal stenosis Home Medications clopidogrel 75 mg PO DAILY 05/17/20 [History Last Taken 08/26/20] cyclobenzaprine 5 mg PO Q8H PRN 05/17/20 [History Last Taken Unknown] docusate sodium 100 mg PO DAILY PRN 05/17/20 [History Last Taken Unknown] duloxetine 60 mg PO DAILY 05/17/20 [History Last Taken 08/26/20] fluticasone propionate 1 spray NASAL DAILY 05/17/20 [History Last Taken 08/26/20] levothyroxine 100 mcg PO DAILY 05/17/20 [History Last Taken 08/26/20] linagliptin 5 mg PO DAILY 05/17/20 [History Last Taken 08/26/20] lisinopril 40 mg PO DAILY 05/17/20 [History Last Taken 08/26/20] metoprolol succinate 100 mg PO DAILY 05/17/20 [History Last Taken 08/26/20] pravastatin 40 mg PO QHS 05/17/20 [History Last Taken 08/25/20] pregabalin 100 mg PO BID 05/17/20 [History Last Taken 08/26/20] spironolactone 25 mg PO DAILY 05/17/20 [History Last Taken 08/26/20] acetaminophen [Tylenol Extra Strength] 1,000 mg PO TID PRN 08/26/20 [History Last Taken 08/26/20] albuterol sulfate 2.5 mg INHALATION TID 08/26/20 [History Last Taken 08/26/20] insulin aspart U-100 [Novolog Flexpen U-100 Insulin] See Protocol SUBCUT TIDCM 08/26/20 [History Last Taken 08/24/20] metformin 1,000 mg PO BID 08/26/20 [History Last Taken 08/26/20] nut.tx.gluc intol,lf,soy-fiber [Boost Glucose Control] 240 ml PO DAILY 08/26/20 [History Last Taken 08/25/20] pantoprazole 40 mg PO DAILY 08/26/20 [History Last Taken 08/26/20] sulfamethoxazole-trimethoprim [Bactrim DS] 1 tab PO DAILY 08/26/20 [History Last Taken 08/26/20] Allergy/AdvReac Type Severity Reaction Status Date / Time erythromycin base Allergy PT UNSURE Verified 08/26/20 18:08 OF REACTION exenatide [From Byetta] AdvReac Diarrhea Verified 08/26/20 18:08 furosemide [From Lasix] AdvReac Vomiting Verified 08/26/20 18:08 naproxen [From Naprosyn] AdvReac abd pain Verified 08/26/20 18:08 Surgical History Status post cervical spinal fusion Social History (Updated 08/26/20 @ 18:[address] Ziggy Jones MD) household members: none housing: shelter Smoking Status: Former smoker details: Unknown substance use type: other details: Unknown Physical Exam Const Constitutional Narrative: unintelligible speech but able to follow commands General Appearance: lethargic HEENT normocephalic and head/scalp atraumatic Eyes PERRL and EOMs intact bilaterally Neck supple Resp normal air movement and clear to auscultation bilaterally Cardio regular rate and regular rhythm GI normal to inspection, nondistended, normoactive bowel sounds Extremity no clubbing, cyanosis or edema Skin no rashes or lesions noted Neuro CN's II-XII intact bilaterally Lab / Micro Data Result Diagrams: 08/27/20 04:45 08/27/20 04:45 Labs: Laboratory Results - last 24 hr 08/26/20 08/26/20 08/26/20 16:30 16:30 16:30 WBC 19.8 H RBC 3.35 L Hgb 9.0 L Hct 28.6 L MCV 85.4 MCH 26.9 L MCHC 31.5 L RDW Std Deviation 62.9 H RDW Coeff of Kavon 20.9 H Plt Count 180 MPV 10.7 Immature Gran % (Auto) 2.900 H Neut % (Auto) 87.9 H Lymph % (Auto) 7.2 L Walton % (Auto) 1.8 Eos % (Auto) 0.0 Baso % (Auto) 0.2 Absolute Neuts (auto) 17.4 H Absolute Lymphs (auto) 1.42 Nucleated RBC % 0.3 Diff Path Review Platelet Estimate ADEQUATE RBC Morphology N CHROM Anisocytosis 1+ Microcytosis RARE Target Cells Ovalocytes RARE Trisha Cells RARE Acanthocytes (Spur) 1+ Schistocytes RARE PT 17.9 H INR 1.6 APTT 36.4 H Sodium 139 Potassium 5.9 H Chloride 110 H Carbon Dioxide 10.0 L Anion Gap 19 H BUN 59 H Creatinine 2.53 H Estim Creat Clear Calc 15.40 Est GFR (MDRD) Af Amer 24 L Est GFR (MDRD) Non-Af 20 L BUN/Creatinine Ratio 23.3 H Glucose 240 H Lactic Acid Calcium 7.7 L Total Bilirubin 0.40 AST 23 ALT 10 L Alkaline Phosphatase 81 Total Protein 4.0 L Albumin 1.5 L Globulin 2.5 Albumin/Globulin Ratio 0.6 L TSH Urine Color Urine Clarity Urine pH Ur Specific [place] Urine Protein Urine Glucose (UA) Urine Ketones Urine Occult Blood Urine Nitrite Urine Bilirubin Urine Urobilinogen Ur Leukocyte Esterase Urine RBC Urine WBC Ur Squamous Epith Cells Urine Bacteria Urine Mucus MRSA (PCR) POC Glucose 08/26/20 08/26/20 08/26/20 16:30 18:11 18:45 WBC RBC Hgb Hct MCV MCH MCHC RDW Std Deviation RDW Coeff of Kavon Plt Count MPV Immature Gran % (Auto) Neut % (Auto) Lymph % (Auto) Walton % (Auto) Eos % (Auto) Baso % (Auto) Absolute Neuts (auto) Absolute Lymphs (auto) Nucleated RBC % Diff Path Review Platelet Estimate RBC Morphology Anisocytosis Microcytosis Target Cells Ovalocytes Trisha Cells Acanthocytes (Spur) Schistocytes PT INR APTT Sodium Potassium Chloride Carbon Dioxide Anion Gap BUN Creatinine Estim Creat Clear Calc Est GFR (MDRD) Af Amer Est GFR (MDRD) Non-Af BUN/Creatinine Ratio Glucose Lactic Acid 9.6 H* Calcium Total Bilirubin AST ALT Alkaline Phosphatase Total Protein Albumin Globulin Albumin/Globulin Ratio TSH Urine Color Lilliana Urine Clarity Clear Urine pH 5.0 Ur Specific [place] 1.020 Urine Protein 15 H Urine Glucose (UA) Normal Urine Ketones 5 H Urine Occult Blood Negative Urine Nitrite Negative Urine Bilirubin 3 H Urine Urobilinogen Normal Ur Leukocyte Esterase 25 H Urine RBC 0 SEEN Urine WBC 0 SEEN Ur Squamous Epith Cells 0 SEEN Urine Bacteria 0 SEEN Urine Mucus 0 SEEN MRSA (PCR) POC Glucose 40 L* 08/26/20 08/26/20 08/26/20 19:10 20:21 22:40 WBC RBC Hgb Hct MCV MCH MCHC RDW Std Deviation RDW Coeff of Kavon Plt Count MPV Immature Gran % (Auto) Neut % (Auto) Lymph % (Auto) Walton % (Auto) Eos % (Auto) Baso % (Auto) Absolute Neuts (auto) Absolute Lymphs (auto) Nucleated RBC % Diff Path Review Platelet Estimate RBC Morphology Anisocytosis Microcytosis Target Cells Ovalocytes [place] Cells Acanthocytes (Spur) Schistocytes PT INR APTT Sodium Potassium Chloride Carbon Dioxide Anion Gap BUN Creatinine Estim Creat Clear Calc Est GFR (MDRD) Af Amer Est GFR (MDRD) Non-Af BUN/Creatinine Ratio Glucose Lactic Acid Calcium Total Bilirubin AST ALT Alkaline Phosphatase Total Protein Albumin Globulin Albumin/Globulin Ratio TSH Urine Color Urine Clarity Urine pH Ur Specific [place] Urine Protein Urine Glucose (UA) Urine Ketones Urine Occult Blood Urine Nitrite Urine Bilirubin Urine Urobilinogen Ur Leukocyte Esterase Urine RBC Urine WBC Ur Squamous Epith Cells Urine Bacteria Urine Mucus MRSA (PCR) POC Glucose 111 H 100 76 08/27/20 08/27/20 08/27/20 00:00 04:45 04:45 WBC 30.3 H* RBC 3.89 L Hgb 10.4 L Hct 33.1 L MCV 85.1 MCH 26.7 L MCHC 31.4 L RDW Std Deviation 64.1 H RDW Coeff of Kavon 21.2 H Plt Count 246 MPV 9.9 Immature Gran % (Auto) 1.200 H Neut % (Auto) 90.0 H Lymph % (Auto) 6.2 L Walton % (Auto) 1.3 Eos % (Auto) 0.7 Baso % (Auto) 0.6 Absolute Neuts (auto) 27.3 H Absolute Lymphs (auto) 1.88 Nucleated RBC % 0.2 Diff Path Review May foll Platelet Estimate RBC Morphology Anisocytosis 1+ Microcytosis Target Cells 1+ Ovalocytes [place] Cells 3+ Acanthocytes (Spur) Schistocytes RARE PT INR APTT Sodium 142 Potassium 5.6 H Chloride 117 H Carbon Dioxide 13.0 L Anion Gap 12 BUN 52 H Creatinine 2.29 H Estim Creat Clear Calc 18.51 Est GFR (MDRD) Af Amer 27 L Est GFR (MDRD) Non-Af 22 L BUN/Creatinine Ratio 22.7 H Glucose 84 Lactic Acid 7.5 H* Calcium 7.4 L Total Bilirubin 0.40 AST 60 H ALT 16 Alkaline Phosphatase 92 Total Protein 4.6 L Albumin 1.6 L Globulin 3.0 Albumin/Globulin Ratio 0.5 L TSH Urine Color Urine Clarity Urine pH Ur Specific [place] Urine Protein Urine Glucose (UA) Urine Ketones Urine Occult Blood Urine Nitrite Urine Bilirubin Urine Urobilinogen Ur Leukocyte Esterase Urine RBC Urine WBC Ur Squamous Epith Cells Urine Bacteria Urine Mucus MRSA (PCR) POC Glucose 08/27/20 08/27/20 08/27/20 04:45 06:14 07:00 WBC RBC Hgb Hct MCV MCH MCHC RDW Std Deviation RDW Coeff of Kavon Plt Count MPV Immature Gran % (Auto) Neut % (Auto) Lymph % (Auto) Walton % (Auto) Eos % (Auto) Baso % (Auto) Absolute Neuts (auto) Absolute Lymphs (auto) Nucleated RBC % Diff Path Review Platelet Estimate RBC Morphology Anisocytosis Microcytosis Target Cells Ovalocytes [place] Cells Acanthocytes (Spur) Schistocytes PT INR APTT Sodium Potassium Chloride Carbon Dioxide Anion Gap BUN Creatinine Estim Creat Clear Calc Est GFR (MDRD) Af Amer Est GFR (MDRD) Non-Af BUN/Creatinine Ratio Glucose Lactic Acid Calcium Total Bilirubin AST ALT Alkaline Phosphatase Total Protein Albumin Globulin Albumin/Globulin Ratio TSH 2.40 Urine Color Urine Clarity Urine pH Ur Specific [place] Urine Protein Urine Glucose (UA) Urine Ketones Urine Occult Blood Urine Nitrite Urine Bilirubin Urine Urobilinogen Ur Leukocyte Esterase Urine RBC Urine WBC Ur Squamous Epith Cells Urine Bacteria Urine Mucus MRSA (PCR) Negative POC Glucose 71 08/27/20 12:01 WBC RBC Hgb Hct MCV MCH MCHC RDW Std Deviation RDW Coeff of Kavon Plt Count MPV Immature Gran % (Auto) Neut % (Auto) Lymph % (Auto) Walton % (Auto) Eos % (Auto) Baso % (Auto) Absolute Neuts (auto) Absolute Lymphs (auto) Nucleated RBC % Diff Path Review Platelet Estimate RBC Morphology Anisocytosis Microcytosis Target Cells Ovalocytes [place] Cells Acanthocytes (Spur) Schistocytes PT INR APTT Sodium Potassium Chloride Carbon Dioxide Anion Gap BUN Creatinine Estim Creat Clear Calc Est GFR (MDRD) Af Amer Est GFR (MDRD) Non-Af BUN/Creatinine Ratio Glucose Lactic Acid Calcium Total Bilirubin AST ALT Alkaline Phosphatase Total Protein Albumin Globulin Albumin/Globulin Ratio TSH Urine Color Urine Clarity Urine pH Ur Specific [place] Urine Protein Urine Glucose (UA) Urine Ketones Urine Occult Blood Urine Nitrite Urine Bilirubin Urine Urobilinogen Ur Leukocyte Esterase Urine RBC Urine WBC Ur Squamous Epith Cells Urine Bacteria Urine Mucus MRSA (PCR) POC Glucose 73 Micro: Microbiology 08/26/20 18:45 Urine Culture - Preliminary Urine Catheter - Nash Culture exhibits no growth. ABG Data ABG results: ABG 08/26/20 08/26/20 08/27/20 18:31 19:58 07:17 Specimen Type LEW ART ART Sample Site R Brach R Brach pH 7.05 L* Bicarbonate Actual 7.5 L Total CO2 8 Base Excess -23 L O2 Saturation 99 O2 % 100 35 ABG pCO2 27.1 L ABG pO2 189 H Marcos Test Positive VBG pH 7.12 L* 7.12 L* VBG pO2 43 H 96 H VBG HCO3 8 L 10 L VBG Total CO2 9 L 11 L VBG O2 Sat (Calc) 65 95 H VBG Base Excess -21 L -19 L POC Mix VBG pCO2 Pt Tmp 24.0 L 30.7 L O2 Delivery Device Room Air NRB Venti Mask Crit Call To/Read Back Yes Yes Yes Radiology Impression Chest X-Ray 08/26/20 19:00 IMPRESSION: Low lung volumes. Persistent elevation of the right hemidiaphragm. Lungs are otherwise clear. Interval removal of left-sided PICC. Interval placement of a right-sided PICC with tip at the RA/SVC junction and possibly fractured at the right axilla. Electronically Signed: Adam Bradley MD at 19:24 EDT Tel , Service support , Chest X-Ray 08/27/20 05:55 IMPRESSION: Stable examination. Electronically Signed: Maciel Galindo MD at 8:51 EDT , Service support , Soft Tissue Neck CT 08/27/20 07:41 IMPRESSION: Infiltration and small effusion along the posterior aspect of the right upper lobe. Status post multilevel laminectomy and interpedicular screw fixation as described. The distal tip of the left interpedicular screw at the C2 level lies along the medial aspect of the pedicle. The spinal cord is intact. Persistent postoperative soft tissue changes overlying the operative site although the previously seen fluid collection and air as resolved. Electronically Signed: Maciel Galindo MD at 9:32 EDT , Service support ,
[2020-08-27 14:27] LABS: Pathologist Review Reviewed
--- NOTE | 2020-08-27 15:08 | PN.HOSP_ITS ---
Subjective Subjective Patient seen and examined. [facility], [facility] for altered mental status. She was also tachycardic, tachypneic and hypotensive. She had recently had cervical spine surgery a few months ago and had been in the care home since then. She was found to have elevated anion gap with bicarb of 10 and creatinine of 2.53 as well as potassium of 5.9. She is admitted for septic shock with unclear source of etiology. She was started on broad-spectrum antibiotics. Patient seen and examined. She is very lethargic, unable to do review of systems on account of patient's lethargy. She remains hypotensive, on levophed drip. Objective Data Objective Data Vital Signs: Vital Signs Temp Pulse Resp BP Pulse Ox 99.2 F H 115 H 12 119/50 L 97 08/27/20 15:00 08/27/20 15:00 08/27/20 15:00 08/27/20 15:00 08/27/20 15:00 Oxygen Flow Rate (L/min) 8 Oxygen Delivery Method Venturi Mask Weight: 163 lb 12.855 oz Body Mass Index (BMI) 26.8 Intake & Output: Intake and Output for Last 24 Hours 08/25/20 08/26/20 08/27/20 23:59 23:59 23:59 Intake Total 2810.09 / 2819.47 1740.95 / 1740.95 Output Total 500 / 500 Balance 2810.09 / 2569.47 1240.95 / 1240.95 Lab / Micro Data Result Diagrams: 08/27/20 04:45 08/27/20 04:45 Labs: Laboratory Results - last 24 hr 08/26/20 08/26/20 08/26/20 16:30 16:30 16:30 WBC 19.8 H RBC 3.35 L Hgb 9.0 L Hct 28.6 L MCV 85.4 MCH 26.9 L MCHC 31.5 L RDW Std Deviation 62.9 H RDW Coeff of Kavon 20.9 H Plt Count 180 MPV 10.7 Immature Gran % (Auto) 2.900 H Neut % (Auto) 87.9 H Lymph % (Auto) 7.2 L Worth % (Auto) 1.8 Eos % (Auto) 0.0 Baso % (Auto) 0.2 Absolute Neuts (auto) 17.4 H Absolute Lymphs (auto) 1.42 Nucleated RBC % 0.3 Diff Path Review Platelet Estimate ADEQUATE RBC Morphology N CHROM Anisocytosis 1+ Microcytosis RARE Target Cells Ovalocytes RARE [place] Cells RARE Acanthocytes (Spur) 1+ Schistocytes RARE PT 17.9 H INR 1.6 APTT 36.4 H Sodium 139 Potassium 5.9 H Chloride 110 H Carbon Dioxide 10.0 L Anion Gap 19 H BUN 59 H Creatinine 2.53 H Estim Creat Clear Calc 15.40 Est GFR (MDRD) Af Amer 24 L Est GFR (MDRD) Non-Af 20 L BUN/Creatinine Ratio 23.3 H Glucose 240 H Lactic Acid Calcium 7.7 L Total Bilirubin 0.40 AST 23 ALT 10 L Alkaline Phosphatase 81 Total Protein 4.0 L Albumin 1.5 L Globulin 2.5 Albumin/Globulin Ratio 0.6 L TSH Urine Color Urine Clarity Urine pH Ur Specific [place] Urine Protein Urine Glucose (UA) Urine Ketones Urine Occult Blood Urine Nitrite Urine Bilirubin Urine Urobilinogen Ur Leukocyte Esterase Urine RBC Urine WBC Ur Squamous Epith Cells Urine Bacteria Urine Mucus MRSA (PCR) POC Glucose 08/26/20 08/26/20 08/26/20 16:30 18:11 18:45 WBC RBC Hgb Hct MCV MCH MCHC RDW Std Deviation RDW Coeff of Kavon Plt Count MPV Immature Gran % (Auto) Neut % (Auto) Lymph % (Auto) Worth % (Auto) Eos % (Auto) Baso % (Auto) Absolute Neuts (auto) Absolute Lymphs (auto) Nucleated RBC % Diff Path Review Platelet Estimate RBC Morphology Anisocytosis Microcytosis Target Cells Ovalocytes [place] Cells Acanthocytes (Spur) Schistocytes PT INR APTT Sodium Potassium Chloride Carbon Dioxide Anion Gap BUN Creatinine Estim Creat Clear Calc Est GFR (MDRD) Af Amer Est GFR (MDRD) Non-Af BUN/Creatinine Ratio Glucose Lactic Acid 9.6 H* Calcium Total Bilirubin AST ALT Alkaline Phosphatase Total Protein Albumin Globulin Albumin/Globulin Ratio TSH Urine Color Lilliana Urine Clarity Clear Urine pH 5.0 Ur Specific Carlton 1.020 Urine Protein 15 H Urine Glucose (UA) Normal Urine Ketones 5 H Urine Occult Blood Negative Urine Nitrite Negative Urine Bilirubin 3 H Urine Urobilinogen Normal Ur Leukocyte Esterase 25 H Urine RBC 0 SEEN Urine WBC 0 SEEN Ur Squamous Epith Cells 0 SEEN Urine Bacteria 0 SEEN Urine Mucus 0 SEEN MRSA (PCR) POC Glucose 40 L* 08/26/20 08/26/20 08/26/20 19:10 20:21 22:40 WBC RBC Hgb Hct MCV MCH MCHC RDW Std Deviation RDW Coeff of Kavon Plt Count MPV Immature Gran % (Auto) Neut % (Auto) Lymph % (Auto) Worth % (Auto) Eos % (Auto) Baso % (Auto) Absolute Neuts (auto) Absolute Lymphs (auto) Nucleated RBC % Diff Path Review Platelet Estimate RBC Morphology Anisocytosis Microcytosis Target Cells Ovalocytes [place] Cells Acanthocytes (Spur) Schistocytes PT INR APTT Sodium Potassium Chloride Carbon Dioxide Anion Gap BUN Creatinine Estim Creat Clear Calc Est GFR (MDRD) Af Amer Est GFR (MDRD) Non-Af BUN/Creatinine Ratio Glucose Lactic Acid Calcium Total Bilirubin AST ALT Alkaline Phosphatase Total Protein Albumin Globulin Albumin/Globulin Ratio TSH Urine Color Urine Clarity Urine pH Ur Specific [place] Urine Protein Urine Glucose (UA) Urine Ketones Urine Occult Blood Urine Nitrite Urine Bilirubin Urine Urobilinogen Ur Leukocyte Esterase Urine RBC Urine WBC Ur Squamous Epith Cells Urine Bacteria Urine Mucus MRSA (PCR) POC Glucose 111 H 100 76 08/27/20 08/27/20 08/27/20 00:00 04:45 04:45 WBC 30.3 H* RBC 3.89 L Hgb 10.4 L Hct 33.1 L MCV 85.1 MCH 26.7 L MCHC 31.4 L RDW Std Deviation 64.1 H RDW Coeff of Kavon 21.2 H Plt Count 246 MPV 9.9 Immature Gran % (Auto) 1.200 H Neut % (Auto) 90.0 H Lymph % (Auto) 6.2 L Worth % (Auto) 1.3 Eos % (Auto) 0.7 Baso % (Auto) 0.6 Absolute Neuts (auto) 27.3 H Absolute Lymphs (auto) 1.88 Nucleated RBC % 0.2 Diff Path Review Reviewed Platelet Estimate RBC Morphology Anisocytosis 1+ Microcytosis Target Cells 1+ Ovalocytes [place] Cells 3+ Acanthocytes (Spur) Schistocytes RARE PT INR APTT Sodium 142 Potassium 5.6 H Chloride 117 H Carbon Dioxide 13.0 L Anion Gap 12 BUN 52 H Creatinine 2.29 H Estim Creat Clear Calc 18.51 Est GFR (MDRD) Af Amer 27 L Est GFR (MDRD) Non-Af 22 L BUN/Creatinine Ratio 22.7 H Glucose 84 Lactic Acid 7.5 H* Calcium 7.4 L Total Bilirubin 0.40 AST 60 H ALT 16 Alkaline Phosphatase 92 Total Protein 4.6 L Albumin 1.6 L Globulin 3.0 Albumin/Globulin Ratio 0.5 L TSH Urine Color Urine Clarity Urine pH Ur Specific [place] Urine Protein Urine Glucose (UA) Urine Ketones Urine Occult Blood Urine Nitrite Urine Bilirubin Urine Urobilinogen Ur Leukocyte Esterase Urine RBC Urine WBC Ur Squamous Epith Cells Urine Bacteria Urine Mucus MRSA (PCR) POC Glucose 08/27/20 08/27/20 08/27/20 04:45 06:14 07:00 WBC RBC Hgb Hct MCV MCH MCHC RDW Std Deviation RDW Coeff of Kavon Plt Count MPV Immature Gran % (Auto) Neut % (Auto) Lymph % (Auto) Worth % (Auto) Eos % (Auto) Baso % (Auto) Absolute Neuts (auto) Absolute Lymphs (auto) Nucleated RBC % Diff Path Review Platelet Estimate RBC Morphology Anisocytosis Microcytosis Target Cells Ovalocytes Trisha Cells Acanthocytes (Spur) Schistocytes PT INR APTT Sodium Potassium Chloride Carbon Dioxide Anion Gap BUN Creatinine Estim Creat Clear Calc Est GFR (MDRD) Af Amer Est GFR (MDRD) Non-Af BUN/Creatinine Ratio Glucose Lactic Acid Calcium Total Bilirubin AST ALT Alkaline Phosphatase Total Protein Albumin Globulin Albumin/Globulin Ratio TSH 2.40 Urine Color Urine Clarity Urine pH Ur Specific [place] Urine Protein Urine Glucose (UA) Urine Ketones Urine Occult Blood Urine Nitrite Urine Bilirubin Urine Urobilinogen Ur Leukocyte Esterase Urine RBC Urine WBC Ur Squamous Epith Cells Urine Bacteria Urine Mucus MRSA (PCR) Negative POC Glucose 71 08/27/20 12:01 WBC RBC Hgb Hct MCV MCH MCHC RDW Std Deviation RDW Coeff of Kavon Plt Count MPV Immature Gran % (Auto) Neut % (Auto) Lymph % (Auto) Worth % (Auto) Eos % (Auto) Baso % (Auto) Absolute Neuts (auto) Absolute Lymphs (auto) Nucleated RBC % Diff Path Review Platelet Estimate RBC Morphology Anisocytosis Microcytosis Target Cells Ovalocytes Trisha Cells Acanthocytes (Spur) Schistocytes PT INR APTT Sodium Potassium Chloride Carbon Dioxide Anion Gap BUN Creatinine Estim Creat Clear Calc Est GFR (MDRD) Af Amer Est GFR (MDRD) Non-Af BUN/Creatinine Ratio Glucose Lactic Acid Calcium Total Bilirubin AST ALT Alkaline Phosphatase Total Protein Albumin Globulin Albumin/Globulin Ratio TSH Urine Color Urine Clarity Urine pH Ur Specific [place] Urine Protein Urine Glucose (UA) Urine Ketones Urine Occult Blood Urine Nitrite Urine Bilirubin Urine Urobilinogen Ur Leukocyte Esterase Urine RBC Urine WBC Ur Squamous Epith Cells Urine Bacteria Urine Mucus MRSA (PCR) POC Glucose 73 Micro: Microbiology 08/26/20 18:45 Urine Catheter - Nash Urine Culture - Preliminary Culture exhibits no growth. ABG Data ABG results: ABG 08/26/20 08/26/20 08/27/20 18:31 19:58 07:17 Specimen Type LEW ART ART Sample Site R Brach R Brach pH 7.05 L* Bicarbonate Actual 7.5 L Total CO2 8 Base Excess -23 L O2 Saturation 99 O2 % 100 35 ABG pCO2 27.1 L ABG pO2 189 H Marcos Test Positive VBG pH 7.12 L* 7.12 L* VBG pO2 43 H 96 H VBG HCO3 8 L 10 L VBG Total CO2 9 L 11 L VBG O2 Sat (Calc) 65 95 H VBG Base Excess -21 L -19 L POC Mix VBG pCO2 Pt Tmp 24.0 L 30.7 L O2 Delivery Device Room Air NRB Venti Mask Crit Call To/Read Back Yes Yes Yes Radiography Diagnostic Testing: Radiology Impression Chest X-Ray 08/26/20 19:00 IMPRESSION: Low lung volumes. Persistent elevation of the right hemidiaphragm. Lungs are otherwise clear. Interval removal of left-sided PICC. Interval placement of a right-sided PICC with tip at the RA/SVC junction and possibly fractured at the right axilla. Electronically Signed: Adam Bradley MD at 19:24 EDT Tel , Service support , Chest X-Ray 08/27/20 05:55 IMPRESSION: Stable examination. Electronically Signed: Maciel Galindo MD at 8:51 EDT , Service support , Soft Tissue Neck CT 08/27/20 07:41 IMPRESSION: Infiltration and small effusion along the posterior aspect of the right upper lobe. Status post multilevel laminectomy and interpedicular screw fixation as described. The distal tip of the left interpedicular screw at the C2 level lies along the medial aspect of the pedicle. The spinal cord is intact. Persistent postoperative soft tissue changes overlying the operative site although the previously seen fluid collection and air as resolved. Electronically Signed: Maciel Galindo MD at 9:32 EDT , Service support , Physical Exam Const Orientation / Consciousness: confused, disoriented and lethargic Exam Limitations: altered mental status HEENT head/scalp atraumatic Head and Scalp: normocephalic Mouth: dry mucous membranes Eyes PERRL, EOMs intact bilaterally and conjunctivae normal Neck no lymphadenopathy, supple and no JVD Resp Resp Narrative: diminished breath sounds bibasally, on oxygen by venturi mask at 35% FiO2 Cardio Cardio Narrative: tachycardic, normal S1 and S2, no murmurs GI normal to inspection, nondistended, normoactive bowel sounds, soft to palpation and non-distended Extremity normal to inspection Peripheral Pulses: Yes pulses 2+ throughout Skin no rashes or lesions noted Skin Narrative: dressing at back of her neck Neuro Neuro Narrative: patient very encephalopathic Assessment & Plan Assessment/Plan (1) Lactic acidosis: (2) Metabolic acidosis: (3) Hyperkalemia: (4) Acute kidney injury: (5) Septic shock: PLAN: #Septic shock of unclear etiology * Patient remains on Levophed drip. She is on IV vancomycin and Zosyn. * Blood cultures are pending. Plan is to titrate Levophed to maintain MAP at 65 and above. * ID on board. Critical care also on board. * CT of the cervical spine didn't show any evidence of infection. Zosyn changed to meropenem * UA negative for UTI * #STEPHAN and anion gap metabolic acidosis * This is thought to be likely prerenal. Nephrology on board. She was started on bicarb drip. Per nephrology she might need to dialysis by tomorrow if she still remains profoundly acidemic * #Hyperkalemia; * potassium was 5.9. * Patient currently n.p.o. on account of encephalopathy. Received Kayexalate rectally. * potassium * #Acute hypoxic respiratory failure * Etiology is unclear. Currently on oxygen by Venturi mask and requiring 35% FiO2. * Titrate oxygen to maintain saturation at or above 90%. * on borasd spectrum antibiotics * #Type 2 diabetes mellitus: Home meds on hold. Currently Accu-Cheks every 6 hourly. Insulin sliding scale. #Cervical spine stenosis: S/p recent neck surgery. CT done during this admission was negative. #Acute metabolic encephalopathy due to septic shock: Management as under septic shock #Benign essential hypertension: BP meds on hold on account of septic shock. #DVT prophylaxis: heparin. CODE STATUS: DNR CCA no intubation Charges/Coding Visit Charges Inpatient E&M: 58345 Subs Hosp L3
[2020-08-27 19:26] LABS: Bedside Glucose 81 mg/dL (70-110)
[2020-08-28] VITALS (41 sets, daily range): BP systolic 90–138; BP diastolic 35–93; PULSE 93–129; RESP 12–24; TEMP 36.2–37.3; O2SAT 82–100
[2020-08-28 01:11] LABS: Bedside Glucose 99 mg/dL (70-110)
[2020-08-28] MEDS: CHLORHEXIDINE GLUC 2% CLOTH 1 EACH TOWELETTE TOPICAL (05:23)
[2020-08-28 05:34] LABS: Vancomycin, Random Level 18.1 ug/mL (0.0-15.0)
--- NOTE | 2020-08-28 05:36 | PCM.PN.INT ---
Assessment & Plan Assessment/Plan (1) Septic shock: PLAN: RECOMMENDATIONS: 1. Continue Levophed to maintain a mean arterial pressure at or above 65 mmHg. 2. Continue broad-spectrum empiric antimicrobials per infectious diseases recommendations. 3. Patient to remain n.p.o. for now. 4. Wean supplemental oxygen to maintain saturations at or above 90%. 5. Continue bicarb containing fluids per nephrology recommendations. 6. Avoid sedating medications. 7. Continue appropriate ICU prophylaxis. IMPRESSIONS: 1. Septic shock Unclear precipitating infectious etiology. Although the patient recently underwent cervical spine surgery, CT C-spine did not demonstrate any evidence of abscess or fluid collection. Coronavirus PCR was negative. Concern for possible pneumonia as precipitating etiology given infiltrates noted on limited slices through the lungs on CT neck. Recommend continuing broad-spectrum antimicrobials per ID recommendations. Continue Levophed to maintain a mean arterial pressure at or above 65 mmHg. 2. Acute kidney injury/anion gap metabolic acidosis/hyperkalemia Likely prerenal in etiology with a component of ischemic ATN in the setting of #1. Nephrology is currently following. Continue bicarb containing fluids per recommendations. 3. Acute hypoxemic respiratory failure Concern for underlying pulmonary infectious process based upon limited slices through lungs noted on CT neck. Recommend continuing supplemental oxygen to maintain saturations at or above 90%. The patient is to remain n.p.o. for now given depressed mentation and high risk for aspiration. 4. Encephalopathy Most likely metabolic in etiology. Plan to continue current supportive measures as noted above. Avoid sedating medications. 5. Cervical spinal stenosis status post recent surgery/rheumatoid arthritis/anemia/hypertension Complicates care, management, recovery and prognosis. Continue to hold antihypertensives/diuretics. TIME: 35 minutes of critical care time, independent of procedures, was spent addressing the patient's septic shock, acute kidney injury, anion gap metabolic acidosis, acute hypoxemic respiratory failure, encephalopathy, review of all data and collaboration with the care team. ([id number]) Subjective Subjective The patient was seen and examined at the bedside this morning. Events from the last 24 hours have been reviewed. The patient is currently afebrile, hemodynamically stable and maintaining appropriate oxygen saturations on a Ventimask with an FiO2 requirement of 35%. The patient remains on Levophed at 11 mcg/min, along with a continuous bicarbonate infusion. She is currently documented to be overall net +5.4 L for the hospital admission. The patient remains quite lethargic this morning. Objective Data Objective Data The patient's most recent lab work, culture data and imaging studies have all been personally reviewed. Blood and urine cultures are pending. Coronavirus PCR was negative. Vital Signs: Vital Signs Temp Pulse Resp BP Pulse Ox 98.8 F 99 16 117/42 L 82 08/28/20 05:00 08/28/20 05:00 08/28/20 05:00 08/28/20 05:00 08/28/20 00:00 Oxygen Flow Rate (L/min) 8 Oxygen Delivery Method Venturi Mask Weight: 170 lb 3.15 oz Body Mass Index (BMI) 26.8 Intake & Output: Intake and Output for Last 24 Hours 08/26/20 08/27/20 08/28/20 23:59 23:59 23:59 Intake Total 2810.09 / 2819.47 3183.48 / 3204.08 183.6 / 183.6 Output Total 600 / 750 150 / 150 Balance 2810.09 / 2569.47 2583.48 / 2454.08 33.6 / 33.6 Lab / Micro Data Attestation: I reviewed the patient's lab results. Result Diagrams: 08/28/20 05:00 08/28/20 05:00 Labs: Laboratory Results - last 24 hr 08/27/20 08/27/20 08/27/20 04:45 04:45 06:14 Diff Path Review Reviewed TSH 2.40 Random Vancomycin COVID-19 (PAMELA) MRSA (PCR) POC Glucose 71 08/27/20 08/27/20 08/27/20 07:00 12:01 14:07 Diff Path Review TSH Random Vancomycin COVID-19 (PAMELA) Not Detected MRSA (PCR) Negative POC Glucose 73 08/27/20 08/28/20 08/28/20 18:12 00:24 05:00 Diff Path Review TSH Random Vancomycin 18.1 H COVID-19 (PAMELA) MRSA (PCR) POC Glucose 81 99 Micro: Microbiology 08/26/20 18:45 Urine Catheter - Nash Urine Culture - Preliminary Culture exhibits no growth. ABG Data ABG results: ABG 08/27/20 07:17 Specimen Type ART Sample Site R Brach O2 % 35 VBG pH 7.12 L* VBG pO2 96 H VBG HCO3 10 L VBG Total CO2 11 L VBG O2 Sat (Calc) 95 H VBG Base Excess -19 L POC Mix VBG pCO2 Pt Tmp 30.7 L O2 Delivery Device Venti Mask Crit Call To/Read Back Yes Radiography Diagnostic Testing: Radiology Impression Chest X-Ray 08/27/20 05:55 IMPRESSION: Stable examination. Electronically Signed: Maciel Galindo MD at 8:51 EDT , Service support , Soft Tissue Neck CT 08/27/20 07:41 IMPRESSION: Infiltration and small effusion along the posterior aspect of the right upper lobe. Status post multilevel laminectomy and interpedicular screw fixation as described. The distal tip of the left interpedicular screw at the C2 level lies along the medial aspect of the pedicle. The spinal cord is intact. Persistent postoperative soft tissue changes overlying the operative site although the previously seen fluid collection and air as resolved. Electronically Signed: Maciel Galindo MD at 9:32 EDT , Service support , Physical Exam Const General Appearance: lethargic and ill appearing HEENT normocephalic and head/scalp atraumatic Mouth: dry mucous membranes Eyes PERRL Neck supple Neck Narrative: Posterior neck wound appears intact without any purulence General: trachea midline Resp Effort and Inspection: tachypneic Auscultation: Negative for rales, rhonchi or wheezes Cardio S1 normal heart sound, S2 normal heart sound and no murmurs Rate: tachycardic GI normal to inspection, nondistended, normoactive bowel sounds Extremity no clubbing, cyanosis or edema Skin no rashes or lesions noted Neuro Sensorium / Orientation: lethargic and somnolent Psych Mood & Affect: flat affect Charges/Coding Procedures Hospitalists Procedures: 34047 Critial Care 1st Hr
[2020-08-28 05:47] LABS: Absolute Lymphocyte Count 1.32 X10^3/uL (0.83-4.51); Basophil# 0.17 X10^3/uL; Basophil% 0.5 % (0-1); Eosinophil# 0.13 X10^3/uL; Eosinophils% 0.4 % (0-5); Hematocrit 32.9 % (37-47); Hemoglobin 10.5 g/dL (12.0-15.0); Lymphocyte # 1.32 X10^3/ul (0.83-4.51); Lymphocyte % 4.1 % (19-41); Mean Corp Hgb Conc 31.9 g/dL (32-36); Mean Corpuscular Hgb 26.4 pg (27.0-32.0); Mean Corpuscular Volume 82.7 fL (81-99); Mean Platelet Vol. 9.9 fl (6.2-12.0); Monocyte# 0.36 X10^3/uL; Monocyte% 1.1 % (0-10); NRBC Flagged by Analyzer 0.5 % (0-5); Neutrophil # 30.02 X10^3/uL (2.7-7.7); Neutrophil % 92.9 % (47-70); POSITIVE COUNT YES; POSITIVE DIFFERENTIAL YES; POSITIVE MORPHOLOGY YES; Platelet Count 187 K/mm3 (150-450); RBC Distribution Width CV 21.4 % (11.6-14.6); RBC Distribution Width SD 62.1 fl (35.1-43.9); Red Blood Count 3.98 M/mm3 (4.2-5.4)
[2020-08-28 05:51] LABS: Differential Indicated SCAN CRITERIA MET
[2020-08-28 05:52] LABS: White Blood Count 32.3 K/mm3 (4.4-11.0)
[2020-08-28 05:58] LABS: ALB/GLOB Ratio 0.5 RATIO (0.9-2.4); AST(SGOT) 60 U/L (15-37); Alanine Aminotransfer ALT/SGPT 20 U/L (13-56); Albumin, Serum 1.4 g/dL (3.2-5.0); Alkaline Phosphatase 102 U/L (45-117); Anion Gap 9 (5-15); BUN 52 mg/dL (7-18); Chloride 112 mmol/L (98-107); Creatinine, Serum 2.26 mg/dL (0.55-1.02); EST Glomerular Filtration Rate 22 mL/min (>60); Est Glom Filt Rate - Afr Amer 27 mL/min (>60); Estimated Creatinine Clearance 18.76 ml/min; Globulin 2.9 g/dL (2.2-4.2); Glucose 163 mg/dL (74-106); Potassium 5.3 mmol/L (3.5-5.1); Protein, Total 4.3 g/dL (6.4-8.2); Sodium Level 142 mmol/L (136-145)
[2020-08-28 05:59] LABS: Target Cells 1+
[2020-08-28 06:30] LABS: Bedside Glucose 131 mg/dL (70-110)
[2020-08-28] MEDS: Heparin Injection (Vial) 5,000 UNIT/ML VIAL 5000 UNIT SC ×3 (06:31→22:04)
[2020-08-28] MEDS: Vancomycin IV 1,000 MG/200 ML BAG 200 MG IV (08:11)
[2020-08-28 11:26] LABS: Bedside Glucose 142 mg/dL (70-110)
--- NOTE | 2020-08-28 12:27 | PCM.RX.CS ---
Consult Pharmacy has been consulted to manage selected antiobiotic: Vancomycin Type of Consult: Follow-up Suspected Infection: Sepsis Labs: Sodium 142 mmol/L (136-145) 08/28/20 05:00 Potassium 5.3 mmol/L (3.5-5.1) H 08/28/20 05:00 Chloride 112 mmol/L (98-107) H 08/28/20 05:00 Carbon Dioxide 21.0 mmol/L (21.0-32.0) 08/28/20 05:00 Anion Gap 9 (5-15) 08/28/20 05:00 BUN 52 mg/dL (7-18) H 08/28/20 05:00 Creatinine 2.26 mg/dL (0.55-1.02) H 08/28/20 05:00 Est GFR (MDRD) Af Amer 27 mL/min (>60) L 08/28/20 05:00 Est GFR (MDRD) Non-Af 22 mL/min (>60) L 08/28/20 05:00 BUN/Creatinine Ratio 23.0 RATIO (10-20) H 08/28/20 05:00 Glucose 163 mg/dL (74-106) H 08/28/20 05:00 Random Vancomycin 18.1 ug/mL (0.0-15.0) H 08/28/20 05:00 Microbiology: Microbiology 08/26/20 18:45 Urine Catheter - Nash Urine Culture - Preliminary Culture exhibits no growth. Goal Trough: 15-20 mcg/mL Pharmacy Plan for Drug Dosing: VANCOMYCIN LEVEL RECEIVED Current Vancomycin Dose: pt received a x1 dose of Vancomycin 2000mg iv on 08/26/20 at 2050. no other doses have be administered due to CrCl <20 Number of Doses Received: 1 Vancomycin Level: pts random level resulted at 18.1 Hours Since Last Dose: 32 Renal Function: CrCl <20 Renal Function Trend: Lab/Micro: Vancomycin Plan/Comments: recommend a supplemental dose of 1000mg x1. Pending Level: 08/30/20 at 0600 Pharmacy Service will continue to monitor and adjust dosing as required. Follow-Up Labs: Trough Vancomycin - 08/30/20 at 0600
--- NOTE | 2020-08-28 15:33 | PCM.PN.HOSP ---
Subjective Subjective Patient seen and examined. She remains very lethargic. Unable to do review of systems on account of patient's lethargic. Potassium is down to 5.3 today and anion gap is 9 as bicarb is increased to 21. Objective Data Objective Data Vital Signs: Vital Signs Temp Pulse Resp BP Pulse Ox 98.5 F 106 H 17 113/81 H 100 08/28/20 14:00 08/28/20 14:00 08/28/20 14:00 08/28/20 14:00 08/28/20 13:00 Oxygen Flow Rate (L/min) 8 Oxygen Delivery Method Venturi Mask Weight: 170 lb 3.15 oz Body Mass Index (BMI) 26.8 Intake & Output: Intake and Output for Last 24 Hours 08/26/20 08/27/20 08/28/20 23:59 23:59 23:59 Intake Total 2810.09 / 2819.47 3183.48 / 3204.08 1748.17 / 1748.17 Output Total 600 / 750 300 / 300 Balance 2810.09 / 2569.47 2583.48 / 2454.08 1448.17 / 1448.17 Lab / Micro Data Result Diagrams: 08/28/20 05:00 08/28/20 05:00 Labs: Laboratory Results - last 24 hr 08/27/20 08/27/20 08/28/20 14:07 18:12 00:24 WBC RBC Hgb Hct MCV MCH MCHC RDW Std Deviation RDW Coeff of Kavon Plt Count MPV Immature Gran % (Auto) Neut % (Auto) Lymph % (Auto) [place] % (Auto) Eos % (Auto) Baso % (Auto) Absolute Neuts (auto) Absolute Lymphs (auto) Nucleated RBC % Diff Path Review Target Cells Sodium Potassium Chloride Carbon Dioxide Anion Gap BUN Creatinine Estim Creat Clear Calc Est GFR (MDRD) Af Amer Est GFR (MDRD) Non-Af BUN/Creatinine Ratio Glucose Calcium Total Bilirubin AST ALT Alkaline Phosphatase Total Protein Albumin Globulin Albumin/Globulin Ratio Random Vancomycin COVID-19 (PAMELA) Not Detected POC Glucose 81 99 08/28/20 08/28/20 08/28/20 05:00 05:00 05:00 WBC 32.3 H* RBC 3.98 L Hgb 10.5 L Hct 32.9 L MCV 82.7 MCH 26.4 L MCHC 31.9 L RDW Std Deviation 62.1 H RDW Coeff of Kavon 21.4 H Plt Count 187 MPV 9.9 Immature Gran % (Auto) 1.000 H Neut % (Auto) 92.9 H Lymph % (Auto) 4.1 L [place] % (Auto) 1.1 Eos % (Auto) 0.4 Baso % (Auto) 0.5 Absolute Neuts (auto) 30.0 H Absolute Lymphs (auto) 1.32 Nucleated RBC % 0.5 Diff Path Review May foll Target Cells 1+ Sodium 142 Potassium 5.3 H Chloride 112 H Carbon Dioxide 21.0 Anion Gap 9 BUN 52 H Creatinine 2.26 H Estim Creat Clear Calc 18.76 Est GFR (MDRD) Af Amer 27 L Est GFR (MDRD) Non-Af 22 L BUN/Creatinine Ratio 23.0 H Glucose 163 H Calcium 7.0 L Total Bilirubin 0.40 AST 60 H ALT 20 Alkaline Phosphatase 102 Total Protein 4.3 L Albumin 1.4 L Globulin 2.9 Albumin/Globulin Ratio 0.5 L Random Vancomycin 18.1 H COVID-19 (PAMELA) POC Glucose 08/28/20 08/28/20 06:27 11:16 WBC RBC Hgb Hct MCV MCH MCHC RDW Std Deviation RDW Coeff of Kavon Plt Count MPV Immature Gran % (Auto) Neut % (Auto) Lymph % (Auto) [place] % (Auto) Eos % (Auto) Baso % (Auto) Absolute Neuts (auto) Absolute Lymphs (auto) Nucleated RBC % Diff Path Review Target Cells Sodium Potassium Chloride Carbon Dioxide Anion Gap BUN Creatinine Estim Creat Clear Calc Est GFR (MDRD) Af Amer Est GFR (MDRD) Non-Af BUN/Creatinine Ratio Glucose Calcium Total Bilirubin AST ALT Alkaline Phosphatase Total Protein Albumin Globulin Albumin/Globulin Ratio Random Vancomycin COVID-19 (PAMELA) POC Glucose 131 H 142 H Micro: Microbiology 08/26/20 18:45 Urine Catheter - Nash Urine Culture - Preliminary Culture exhibits no growth. Physical Exam Const Constitutional Narrative: very frail General Appearance: well kempt and well developed Orientation / Consciousness: awake, oriented to person, oriented to place, oriented to time, confused, disoriented and lethargic Exam Limitations: altered mental status HEENT normocephalic and head/scalp atraumatic Eyes PERRL, EOMs intact bilaterally and conjunctivae normal Neck nuchal rigidity, no lymphadenopathy, supple, no JVD, thyroid normal and no carotid bruits General: trachea midline Resp Resp Narrative: diminished breath sounds bibasally, on oxygen by venturi mask at 35% FiO2 Auscultation: Negative for rales, rhonchi or wheezes Cardio regular rate, regular rhythm, no murmurs, no rub and no gallops Cardio Narrative: tachycardic, normal S1 and S2, no murmurs GI normal to inspection, nondistended, normoactive bowel sounds, soft to palpation, non-tender and non-distended Extremity normal to inspection and no clubbing, cyanosis or edema Skin no rashes or lesions noted General Skin Exam: no breakdown Neuro CN's II-XII intact bilaterally and no sensory deficits noted Neuro Narrative: patient very lethargic Psych thought process normal Psych Narrative: Patient's affect is flat, she is somnolent Assessment & Plan Assessment/Plan (1) Lactic acidosis: (2) Metabolic acidosis: (3) Hyperkalemia: (4) Acute kidney injury: (5) Septic shock: PLAN: #Septic shock of unclear etiology Patient remains on Levophed drip. On IV meropenem. WBC is up to 32 today. Blood cultures are pending. Plan is to titrate Levophed to maintain MAP at 65 and above. ID on board. Critical care also on board. CT of the cervical spine didn't show any evidence of infection. #STEPHAN and anion gap metabolic acidosis Creatinine is 2.53 today and bicarb is up to 21 she is on bicarb drip. I discussed with daughter about whether she patient to have dialysis if need be. Daughter was very tearful and says she felt like her mother would not want dialysis as mother had told one of the nurses in her [place] [facility] facility that she was tired and wanted to let go but did not want to disappoint her family. Patient's daughter is leaning towards no for dialysis but would want to conclude on this if patient does need dialysis. To therefore reach out to patient's daughter again if it is definitely the patient needs dialysis. I do not anticipate the patient will need dialysis today. #Hyperkalemia; potassium is 5.3. Will replace and monitor Patient currently n.p.o. on account of encephalopathy. Received Kayexalate rectally. potassium #Acute hypoxic respiratory failure Etiology is unclear. still on oxygen by Venturi mask and requiring 35% FiO2. Titrate oxygen to maintain saturation at or above 90%. on IV meropenem #Type 2 diabetes mellitus: Home meds on hold. Currently Accu-Cheks every 6 hourly. Insulin sliding scale. #Cervical spine stenosis: S/p recent neck surgery. CT done during this admission was negative. #Acute metabolic encephalopathy due to septic shock: Management as under septic shock #Benign essential hypertension: BP meds on hold on account of septic shock. #DVT prophylaxis: heparin. CODE STATUS: DNR CCA no intubation Charges/Coding Visit Charges Inpatient E&M: 82947 [facility] Hosp L3
[2020-08-28] MEDS: Sodium Polystyrene Sulfonate 15 GM/60 ML UDC 30 GM RC (15:53)
[2020-08-28 17:50] LABS: Bedside Glucose 122 mg/dL (70-110)
--- NOTE | 2020-08-28 18:15 | PCM.PN.REN ---
Subjective Subjective Patient remains obtunded. Remains on levophed and VM On bicard drip UOP 400 cc yesterday Objective Data Objective Data Vital Signs: Vital Signs Temp Pulse Resp BP Pulse Ox 98.5 F 108 H 17 106/55 L 92 08/28/20 16:00 08/28/20 17:00 08/28/20 17:00 08/28/20 17:00 08/28/20 17:00 Oxygen Flow Rate (L/min) 8 Oxygen Delivery Method Venturi Mask Weight: 77.2 kg Body Mass Index (BMI) 26.8 Intake & Output: Intake and Output for Last 24 Hours 08/26/20 08/27/20 08/28/20 23:59 23:59 23:59 Intake Total 2810.09 / 2819.47 3183.48 / 3204.08 1808.17 / 1808.17 Output Total 600 / 750 400 / 400 Balance 2810.09 / 2569.47 2583.48 / 2454.08 1408.17 / 1408.17 Lab / Micro Data Result Diagrams: 08/28/20 05:00 08/28/20 05:00 Labs: Laboratory Results - last 24 hr 08/27/20 08/27/20 08/28/20 14:07 18:12 00:24 WBC RBC Hgb Hct MCV MCH MCHC RDW Std Deviation RDW Coeff of Kavon Plt Count MPV Immature Gran % (Auto) Neut % (Auto) Lymph % (Auto) [place] % (Auto) Eos % (Auto) Baso % (Auto) Absolute Neuts (auto) Absolute Lymphs (auto) Nucleated RBC % Diff Path Review Target Cells Sodium Potassium Chloride Carbon Dioxide Anion Gap BUN Creatinine Estim Creat Clear Calc Est GFR (MDRD) Af Amer Est GFR (MDRD) Non-Af BUN/Creatinine Ratio Glucose Calcium Total Bilirubin AST ALT Alkaline Phosphatase Total Protein Albumin Globulin Albumin/Globulin Ratio Random Vancomycin COVID-19 (PAMELA) Not Detected POC Glucose 81 99 08/28/20 08/28/20 08/28/20 05:00 05:00 05:00 WBC 32.3 H* RBC 3.98 L Hgb 10.5 L Hct 32.9 L MCV 82.7 MCH 26.4 L MCHC 31.9 L RDW Std Deviation 62.1 H RDW Coeff of Kavon 21.4 H Plt Count 187 MPV 9.9 Immature Gran % (Auto) 1.000 H Neut % (Auto) 92.9 H Lymph % (Auto) 4.1 L [place] % (Auto) 1.1 Eos % (Auto) 0.4 Baso % (Auto) 0.5 Absolute Neuts (auto) 30.0 H Absolute Lymphs (auto) 1.32 Nucleated RBC % 0.5 Diff Path Review May foll Target Cells 1+ Sodium 142 Potassium 5.3 H Chloride 112 H Carbon Dioxide 21.0 Anion Gap 9 BUN 52 H Creatinine 2.26 H Estim Creat Clear Calc 18.76 Est GFR (MDRD) Af Amer 27 L Est GFR (MDRD) Non-Af 22 L BUN/Creatinine Ratio 23.0 H Glucose 163 H Calcium 7.0 L Total Bilirubin 0.40 AST 60 H ALT 20 Alkaline Phosphatase 102 Total Protein 4.3 L Albumin 1.4 L Globulin 2.9 Albumin/Globulin Ratio 0.5 L Random Vancomycin 18.1 H COVID-19 (PAMELA) POC Glucose 08/28/20 08/28/20 08/28/20 06:27 11:16 17:44 WBC RBC Hgb Hct MCV MCH MCHC RDW Std Deviation RDW Coeff of Kavon Plt Count MPV Immature Gran % (Auto) Neut % (Auto) Lymph % (Auto) [place] % (Auto) Eos % (Auto) Baso % (Auto) Absolute Neuts (auto) Absolute Lymphs (auto) Nucleated RBC % Diff Path Review Target Cells Sodium Potassium Chloride Carbon Dioxide Anion Gap BUN Creatinine Estim Creat Clear Calc Est GFR (MDRD) Af Amer Est GFR (MDRD) Non-Af BUN/Creatinine Ratio Glucose Calcium Total Bilirubin AST ALT Alkaline Phosphatase Total Protein Albumin Globulin Albumin/Globulin Ratio Random Vancomycin COVID-19 (PAMELA) POC Glucose 131 H 142 H 122 H Micro: Microbiology 08/26/20 18:45 Urine Catheter - Nash Urine Culture - Preliminary Culture exhibits no growth. Physical Exam Const General Appearance: lethargic Exam Limitations: altered mental status Eyes conjunctivae normal Neck no lymphadenopathy Resp clear to auscultation bilaterally Cardio Rate: tachycardic Rhythm: regular rhythm Heart Sounds: S1 normal and S2 normal GI Auscultation: hypoactive bowel sounds Palpation: soft Percussion: normal to percussion Extremity General Extremity: other findings Other Details: no edema of LE Skin General Skin Exam: no breakdown Neuro Neuro Narrative: obtunded. Assessment & Plan Assessment/Plan (1) Acute kidney injury: (2) Hyperkalemia: (3) Metabolic acidosis: (4) Lactic acidosis: (5) Septic shock: PLAN: Normal baseline Cr STEPHAN is likely ischemia ATN. Oliguric No urgent need for HD. daughter is leaning toward no dialysis if indicated K level is better with kyaexalate . no need to repeat it HC03 level is improving. Continue isotonic HCO3 dripo Keep MAP > 65 hemodynamic support and sepsis treatment as per ICU d/w Dr. anderson thank you. Will follow Call if any question Michael Ferrer MD
[2020-08-29] VITALS (62 sets, daily range): BP systolic 91–142; BP diastolic 42–98; PULSE 101–158; RESP 10–20; TEMP 36.2–36.5; O2SAT 90–100
[2020-08-29 00:15] LABS: Bedside Glucose 127 mg/dL (70-110)
[2020-08-29] MEDS: Heparin Injection (Vial) 5,000 UNIT/ML VIAL 5000 UNIT SC ×3 (05:09→22:39)
[2020-08-29 05:16] LABS: Bedside Glucose 115 mg/dL (70-110)
--- NOTE | 2020-08-29 05:47 | PCM.PN.INT ---
Assessment & Plan Assessment/Plan (1) Septic shock: PLAN: RECOMMENDATIONS: 1. Continue Levophed to maintain a mean arterial pressure at or above 65 mmHg. 2. Continue broad-spectrum empiric antimicrobials per infectious diseases recommendations. 3. Patient to remain n.p.o. for now. 4. Wean supplemental oxygen to maintain saturations at or above 90%. 5. Okay to stop bicarb infusion given normalization on chemistry profile. 6. Avoid sedating medications. 7. Continue appropriate ICU prophylaxis. IMPRESSIONS: 1. Septic shock Concern for underlying pulmonary infectious process as etiology. Although the patient recently underwent cervical spine surgery, CT C-spine did not demonstrate any evidence of abscess or fluid collection. However, limited slices through the lungs on CT neck did reveal infiltrate. Coronavirus PCR was negative. Recommend continuing broad-spectrum antimicrobials per ID recommendations. Continue Levophed to maintain a mean arterial pressure at or above 65 mmHg. Overall, the patient appears to be clinically improving. 2. Acute kidney injury/anion gap metabolic acidosis/hyperkalemia Improving. Likely prerenal in etiology with a component of ischemic ATN in the setting of #1. Nephrology is currently following. Given improvement in metabolic acidosis, okay to discontinue bicarbonate infusion. 3. Acute hypoxemic respiratory failure Improving. Concern for underlying pulmonary infectious process based upon limited slices through lungs noted on CT neck. Recommend continuing supplemental oxygen to maintain saturations at or above 90%. The patient is to remain n.p.o. for now given depressed mentation and high risk for aspiration. 4. Encephalopathy Most likely metabolic in etiology. Plan to continue current supportive measures as noted above. Avoid sedating medications. 5. Cervical spinal stenosis status post recent surgery/rheumatoid arthritis/anemia/hypertension Complicates care, management, recovery and prognosis. Continue to hold antihypertensives/diuretics. TIME: 34 minutes of critical care time, independent of procedures, was spent addressing the patient's septic shock, acute kidney injury, anion gap metabolic acidosis, acute hypoxemic respiratory failure, encephalopathy, review of all data and collaboration with the care team. ([id number]) Subjective Subjective The patient was seen and examined at the bedside this morning. Events from the last 24 hours have been reviewed. The patient is currently afebrile, hemodynamically stable and maintaining appropriate oxygen saturations on 2 L/min via nasal cannula. The patient remains on Levophed at 3 mcg/min, along with a continuous bicarbonate infusion. She is currently documented to be overall net +8.2 L for the hospital admission. The patient's acidosis has improved. Urine output is starting to increase. Creatinine is improving. However, the patient still remains quite confused. Objective Data Objective Data The patient's most recent lab work, culture data and imaging studies have all been personally reviewed. Blood and urine cultures are pending. Coronavirus PCR was negative. Vital Signs: Vital Signs Temp Pulse Resp BP Pulse Ox 97.5 F L 112 H 18 120/46 L 97 08/29/20 04:00 08/29/20 05:30 08/29/20 05:30 08/29/20 05:30 08/29/20 05:30 Oxygen Flow Rate (L/min) 2 Oxygen Delivery Method Nasal Cannula Weight: 176 lb 9.444 oz Body Mass Index (BMI) 26.8 Intake & Output: Intake and Output for Last 24 Hours 08/27/20 08/28/20 08/29/20 23:59 23:59 23:59 Intake Total 3183.48 / 3204.08 3132.18 / 3135.93 307.12 / 307.12 Output Total 600 / 750 460 / 460 140 / 140 Balance 2583.48 / 2454.08 2672.18 / 2675.93 167.12 / 167.12 Lab / Micro Data Attestation: I reviewed the patient's lab results. Result Diagrams: 08/29/20 04:15 08/29/20 04:15 Labs: Laboratory Results - last 24 hr 08/28/20 08/28/20 08/28/20 05:00 05:00 06:27 WBC 32.3 H* RBC 3.98 L Hgb 10.5 L Hct 32.9 L MCV 82.7 MCH 26.4 L MCHC 31.9 L RDW Std Deviation 62.1 H RDW Coeff of Kavon 21.4 H Plt Count 187 MPV 9.9 Immature Gran % (Auto) 1.000 H Neut % (Auto) 92.9 H Lymph % (Auto) 4.1 L [place] % (Auto) 1.1 Eos % (Auto) 0.4 Baso % (Auto) 0.5 Absolute Neuts (auto) 30.0 H Absolute Lymphs (auto) 1.32 Nucleated RBC % 0.5 Diff Path Review May foll Target Cells 1+ Sodium 142 Potassium 5.3 H Chloride 112 H Carbon Dioxide 21.0 Anion Gap 9 BUN 52 H Creatinine 2.26 H Estim Creat Clear Calc 18.76 Est GFR (MDRD) Af Amer 27 L Est GFR (MDRD) Non-Af 22 L BUN/Creatinine Ratio 23.0 H Glucose 163 H Calcium 7.0 L Total Bilirubin 0.40 AST 60 H ALT 20 Alkaline Phosphatase 102 Total Protein 4.3 L Albumin 1.4 L Globulin 2.9 Albumin/Globulin Ratio 0.5 L POC Glucose 131 H 08/28/20 08/28/20 08/29/20 11:16 17:44 00:12 WBC RBC Hgb Hct MCV MCH MCHC RDW Std Deviation RDW Coeff of Kavon Plt Count MPV Immature Gran % (Auto) Neut % (Auto) Lymph % (Auto) [place] % (Auto) Eos % (Auto) Baso % (Auto) Absolute Neuts (auto) Absolute Lymphs (auto) Nucleated RBC % Diff Path Review Target Cells Sodium Potassium Chloride Carbon Dioxide Anion Gap BUN Creatinine Estim Creat Clear Calc Est GFR (MDRD) Af Amer Est GFR (MDRD) Non-Af BUN/Creatinine Ratio Glucose Calcium Total Bilirubin AST ALT Alkaline Phosphatase Total Protein Albumin Globulin Albumin/Globulin Ratio POC Glucose 142 H 122 H 127 H 08/29/20 05:08 WBC RBC Hgb Hct MCV MCH MCHC RDW Std Deviation RDW Coeff of Kavon Plt Count MPV Immature Gran % (Auto) Neut % (Auto) Lymph % (Auto) [place] % (Auto) Eos % (Auto) Baso % (Auto) Absolute Neuts (auto) Absolute Lymphs (auto) Nucleated RBC % Diff Path Review Target Cells Sodium Potassium Chloride Carbon Dioxide Anion Gap BUN Creatinine Estim Creat Clear Calc Est GFR (MDRD) Af Amer Est GFR (MDRD) Non-Af BUN/Creatinine Ratio Glucose Calcium Total Bilirubin AST ALT Alkaline Phosphatase Total Protein Albumin Globulin Albumin/Globulin Ratio POC Glucose 115 H Micro: Microbiology 08/26/20 18:45 Urine Catheter - Nash Urine Culture - Preliminary Culture exhibits no growth. Physical Exam Const General Appearance: lethargic and ill appearing HEENT normocephalic and head/scalp atraumatic Mouth: dry mucous membranes Teeth and Gingiva: poor dentition Eyes PERRL, EOMs intact bilaterally and conjunctivae normal Neck supple Neck Narrative: Posterior neck wound appears intact without any purulence General: trachea midline Resp Effort and Inspection: tachypneic Auscultation: rhonchi; Negative for rales or wheezes Cardio S1 normal heart sound, S2 normal heart sound and no murmurs Rate: tachycardic GI normal to inspection, nondistended, normoactive bowel sounds Extremity no clubbing, cyanosis or edema Skin no rashes or lesions noted Neuro Sensorium / Orientation: lethargic Psych Mood & Affect: flat affect Charges/Coding Procedures Hospitalists Procedures: [id number] Critial Care 1st Hr
[2020-08-29 06:02] LABS: Absolute Lymphocyte Count 1.17 X10^3/uL (0.83-4.51); Absolute Neutrophil Count 24.2 X10^3/uL (2.0-7.7); Basophil# 0.08 X10^3/uL; Basophil% 0.3 % (0-1); Hematocrit 30.7 % (37-47); Hemoglobin 9.9 g/dL (12.0-15.0); Lymphocyte # 1.17 X10^3/ul (0.83-4.51); Lymphocyte % 4.5 % (19-41); Mean Corp Hgb Conc 32.2 g/dL (32-36); Mean Corpuscular Hgb 26.2 pg (27.0-32.0); Mean Corpuscular Volume 81.2 fL (81-99); Mean Platelet Vol. 10.4 fl (6.2-12.0); Monocyte# 0.38 X10^3/uL; Monocyte% 1.5 % (0-10); NRBC Flagged by Analyzer 0.3 % (0-5); Neutrophil # 24.22 X10^3/uL (2.7-7.7); Neutrophil % 92.6 % (47-70); POSITIVE DIFFERENTIAL YES; POSITIVE MORPHOLOGY YES; Platelet Count 150 K/mm3 (150-450); RBC Distribution Width CV 21.1 % (11.6-14.6); RBC Distribution Width SD 58.4 fl (35.1-43.9); Red Blood Count 3.78 M/mm3 (4.2-5.4); White Blood Count 26.1 K/mm3 (4.4-11.0)
[2020-08-29 06:13] LABS: Anion Gap 7 (5-15); BUN 58 mg/dL (7-18); BUN/Creat Ratio 29.6 RATIO (10-20); Calcium,Total 6.9 mg/dL (8.5-10.1); Chloride 107 mmol/L (98-107); Creatinine, Serum 1.96 mg/dL (0.55-1.02); EST Glomerular Filtration Rate 26 mL/min (>60); Est Glom Filt Rate - Afr Amer 32 mL/min (>60); Estimated Creatinine Clearance 21.63 ml/min; Glucose 150 mg/dL (74-106); Potassium 4.4 mmol/L (3.5-5.1); Sodium Level 143 mmol/L (136-145)
[2020-08-29 06:38] LABS: Differential Indicated SCAN CRITERIA MET
[2020-08-29 06:40] LABS: Anisocytosis 1+; Differential Comment SCANNED; Macrocytosis 1+; Target Cells RARE
--- NOTE | 2020-08-29 07:48 | PN.HOSP_ITS ---
Subjective Subjective Patient seen and examined. She is more alert today, but remains confused. Unable to do any review of systems. Cr has trended down to 1.92, and Bicarb is 29 today. Objective Data Objective Data Vital Signs: Vital Signs Temp Pulse Resp BP Pulse Ox 97.5 F L 124 H 15 121/43 H 94 08/29/20 04:00 08/29/20 07:35 08/29/20 07:00 08/29/20 07:00 08/29/20 06:45 Oxygen Flow Rate (L/min) 2 Oxygen Delivery Method Nasal Cannula Weight: 176 lb 9.444 oz Body Mass Index (BMI) 26.8 Intake & Output: Intake and Output for Last 24 Hours 08/27/20 08/28/20 08/29/20 23:59 23:59 23:59 Intake Total 3183.48 / 3204.08 3132.18 / 3135.93 1446.60 / 1446.60 Output Total 600 / 750 460 / 460 140 / 140 Balance 2583.48 / 2454.08 2672.18 / 2675.93 1306.60 / 1306.60 Lab / Micro Data Result Diagrams: 08/29/20 04:15 08/29/20 04:15 Labs: Laboratory Results - last 24 hr 08/28/20 08/28/20 08/29/20 11:16 17:44 00:12 WBC RBC Hgb Hct MCV MCH MCHC RDW Std Deviation RDW Coeff of Kavon Plt Count MPV Immature Gran % (Auto) Neut % (Auto) Lymph % (Auto) [place] % (Auto) Eos % (Auto) Baso % (Auto) Absolute Neuts (auto) Absolute Lymphs (auto) Nucleated RBC % Differential Comment Anisocytosis Macrocytosis Target Cells Sodium Potassium Chloride Carbon Dioxide Anion Gap BUN Creatinine Estim Creat Clear Calc Est GFR (MDRD) Af Amer Est GFR (MDRD) Non-Af BUN/Creatinine Ratio Glucose Calcium POC Glucose 142 H 122 H 127 H 08/29/20 08/29/20 08/29/20 04:15 04:15 05:08 WBC 26.1 H RBC 3.78 L Hgb 9.9 L Hct 30.7 L MCV 81.2 MCH 26.2 L MCHC 32.2 RDW Std Deviation 58.4 H RDW Coeff of Kavon 21.1 H Plt Count 150 MPV 10.4 Immature Gran % (Auto) 1.100 H Neut % (Auto) 92.6 H Lymph % (Auto) 4.5 L [place] % (Auto) 1.5 Eos % (Auto) 0.0 Baso % (Auto) 0.3 Absolute Neuts (auto) 24.2 H Absolute Lymphs (auto) 1.17 Nucleated RBC % 0.3 Differential Comment SCANNED Anisocytosis 1+ Macrocytosis 1+ Target Cells RARE Sodium 143 Potassium 4.4 Chloride 107 Carbon Dioxide 29.0 Anion Gap 7 BUN 58 H Creatinine 1.96 H Estim Creat Clear Calc 21.63 Est GFR (MDRD) Af Amer 32 L Est GFR (MDRD) Non-Af 26 L BUN/Creatinine Ratio 29.6 H Glucose 150 H Calcium 6.9 L POC Glucose 115 H Micro: Microbiology 08/26/20 18:45 Urine Catheter - Nash Urine Culture - Final Culture exhibits no growth. Physical Exam Const Constitutional Narrative: very frail General Appearance: well kempt and well developed Orientation / Consciousness: awake, oriented to person, oriented to place, oriented to time, confused, disoriented and lethargic Exam Limitations: no limitations and altered mental status HEENT normocephalic and head/scalp atraumatic Head and Scalp: normocephalic Eyes PERRL, EOMs intact bilaterally and conjunctivae normal Neck nuchal rigidity, no lymphadenopathy, supple, no JVD, thyroid normal and no carotid bruits General: trachea midline Resp Resp Narrative: diminished breath sounds bibasally, on oxygen by venturi mask at 35% FiO2 Auscultation: Negative for rales, rhonchi or wheezes Cardio regular rate, regular rhythm, no murmurs, no rub and no gallops Cardio Narrative: tachycardic, normal S1 and S2, no murmurs GI normal to inspection, nondistended, normoactive bowel sounds, soft to palpation, non-tender and non-distended Extremity normal to inspection and no clubbing, cyanosis or edema Peripheral Pulses: Yes pulses 2+ throughout Skin no rashes or lesions noted Skin Narrative: dressing at back of her neck General Skin Exam: no breakdown Neuro CN's II-XII intact bilaterally and no sensory deficits noted Neuro Narrative: patient very lethargic Psych thought process normal Psych Narrative: Patient's affect is flat, she is somnolent Assessment & Plan Assessment/Plan (1) Lactic acidosis: (2) Metabolic acidosis: (3) Hyperkalemia: (4) Acute kidney injury: (5) Septic shock: PLAN: #Septic shock of unclear etiology * Patient remains on Levophed drip. On IV meropenem. WBC is down to 26 today. * Blood cultures showed no growth after 48 hours. Plan is to titrate Levophed to maintain MAP at 65 and above. * ID on board. Critical care also on board. * CT of the cervical spine didn't show any evidence of infection. * * #STEPHAN and anion gap metabolic acidosis * Creatinine is down to 1.9, and bicarb is 29. * I dont anticipate that with improvement of bicarb and Cr, patient will likely not need dialysis * * #Hyperkalemia; * resolved. K is 4.4. * #Acute hypoxic respiratory failure * Etiology is unclear. now on 2L of oxygen by nasal canula * Titrate oxygen to maintain saturation at or above 90%. * on IV meropenem * #Type 2 diabetes mellitus: Home meds on hold. Currently Accu-Cheks every 6 hourly. Insulin sliding scale. #Cervical spine stenosis: S/p recent neck surgery. CT done during this admission was negative. #Acute metabolic encephalopathy due to septic shock: Management as under septic shock #Benign essential hypertension: BP meds on hold on account of septic shock. #DVT prophylaxis: heparin. CODE STATUS: DNR CCA no intubation Charges/Coding Visit Charges Inpatient E&M: 39169 [facility] Hosp L3
[2020-08-29] MEDS: CHLORHEXIDINE GLUC 2% CLOTH 1 EACH TOWELETTE TOPICAL (09:24)
[2020-08-29 11:21] LABS: Bedside Glucose 83 mg/dL (70-110)
[2020-08-29] MEDS: 0.9% Saline Lock 10 ML Syringe IV (13:32)
[2020-08-29] MEDS: Metoprolol Tartrate 5 MG/5 ML Vial IV (13:32)
[2020-08-29] MEDS: Dextrose 50%-Water 25 GM/50 ML DISP.SYRIN IV ×2 (17:52→18:23)
[2020-08-29 18:46] LABS: Bedside Glucose 125 mg/dL (70-110)
[2020-08-29 18:46] LABS: Bedside Glucose 67 mg/dL (70-110)
[2020-08-29 18:46] LABS: Bedside Glucose 66 mg/dL (70-110)
[2020-08-29] MEDS: Dextrose 5%/0.9% NaCl 1,000 ML 75 ML IV (18:51)
[2020-08-29] MEDS: Amiodarone 360 MG in Dextrose 5% Viaflo Bag 192.8 ML 33.3 MG CONT INF (19:58)
[2020-08-30] VITALS (32 sets, daily range): BP systolic 97–144; BP diastolic 42–98; PULSE 85–145; RESP 11–23; TEMP 36.3–37; O2SAT 90–95
[2020-08-30 00:55] LABS: Bedside Glucose 111 mg/dL (70-110)
[2020-08-30] MEDS: Amiodarone 360 MG in Dextrose 5% Viaflo Bag 192.8 ML 16.7 MG CONT INF ×2 (02:00→15:08)
[2020-08-30] MEDS: Metoprolol Tartrate 5 MG/5 ML Vial IV ×3 (02:28→18:35)
[2020-08-30 05:39] LABS: Absolute Neutrophil Count 17.6 X10^3/uL (2.0-7.7); Basophil# 0.04 X10^3/uL; Basophil% 0.2 % (0-1); Eosinophil# 0.01 X10^3/uL; Eosinophils% 0.1 % (0-5); Hematocrit 28.5 % (37-47); Hemoglobin 9.2 g/dL (12.0-15.0); Lymphocyte % 5.7 % (19-41); Mean Corp Hgb Conc 32.3 g/dL (32-36); Mean Corpuscular Volume 80.5 fL (81-99); Mean Platelet Vol. 10.1 fl (6.2-12.0); Monocyte# 0.31 X10^3/uL; Monocyte% 1.6 % (0-10); NRBC Flagged by Analyzer 0.4 % (0-5); Neutrophil # 17.64 X10^3/uL (2.7-7.7); Neutrophil % 91.2 % (47-70); POSITIVE MORPHOLOGY YES; Platelet Count 115 K/mm3 (150-450); RBC Distribution Width CV 20.5 % (11.6-14.6); RBC Distribution Width SD 57.6 fl (35.1-43.9); Red Blood Count 3.54 M/mm3 (4.2-5.4); White Blood Count 19.3 K/mm3 (4.4-11.0)
[2020-08-30 05:46] LABS: Differential Indicated SCAN CRITERIA MET
[2020-08-30 06:00] LABS: Anion Gap 8 (5-15); BUN 55 mg/dL (7-18); BUN/Creat Ratio 33.7 RATIO (10-20); Calcium,Total 6.6 mg/dL (8.5-10.1); Chloride 108 mmol/L (98-107); Creatinine, Serum 1.63 mg/dL (0.55-1.02); EST Glomerular Filtration Rate 33 mL/min (>60); Est Glom Filt Rate - Afr Amer 39 mL/min (>60); Estimated Creatinine Clearance 26.01 ml/min; Glucose 126 mg/dL (74-106); Sodium Level 143 mmol/L (136-145)
[2020-08-30] MEDS: CHLORHEXIDINE GLUC 2% CLOTH 1 EACH TOWELETTE TOPICAL (06:09)
[2020-08-30] MEDS: Heparin Injection (Vial) 5,000 UNIT/ML VIAL 5000 UNIT SC (06:09)
[2020-08-30 06:15] LABS: Anisocytosis 1+; Target Cells 1+
[2020-08-30 06:20] LABS: Bedside Glucose 110 mg/dL (70-110)
--- NOTE | 2020-08-30 06:29 | EKG12_ITS ---
Test Reason : RYTHUM CHANGE Blood Pressure : / mmHG Vent. Rate : 111 BPM Atrial Rate : 102 BPM P-R Int : 000 ms QRS Dur : 082 ms QT Int : 362 ms P-R-T Axes : 000 005 081 degrees QTc Int : 492 ms Atrial fibrillation Low voltage QRS Abnormal ECG Confirmed by RICHA SORTO, NIMA ([id number]), slot editor BRAD SAMANO ([id number]) on 08/31/2020 10:32:54 AM Referred By: RISHABH Confirmed By:NIMA CHAUDHRY MD
--- NOTE | 2020-08-30 07:10 | PCM.PN.INT ---
Assessment & Plan Assessment/Plan (1) Septic shock: PLAN: RECOMMENDATIONS: 1. Discontinue Levophed from MAY. 2. Continue broad-spectrum empiric antimicrobials per infectious diseases recommendations. 3. Patient to remain n.p.o. for now. 4. Walking oximetry prior to discharge. 5. Delirium protocol. 6. Avoid sedating medications. 7. Obtain EKG for documentation of A. fib with RVR. IMPRESSIONS: 1. Septic shock Concern for underlying pulmonary infectious process as etiology. Although the patient recently underwent cervical spine surgery, CT C-spine did not demonstrate any evidence of abscess or fluid collection. However, limited slices through the lungs on CT neck did reveal infiltrate. Coronavirus PCR was negative. Recommend continuingantimicrobials per ID recommendations. We will discontinue Levophed. Overall, the patient appears to be clinically improving. 2. Acute kidney injury/anion gap metabolic acidosis/hyperkalemia Improving. Likely prerenal in etiology with a component of ischemic ATN in the setting of #1. Nephrology is currently following. Given improvement in metabolic acidosis, okay to discontinue bicarbonate infusion. 3. Acute hypoxemic respiratory failure Improving. Concern for underlying pulmonary infectious process based upon limited slices through lungs noted on CT neck. Recommend continuing supplemental oxygen to maintain saturations at or above 90%. The patient is to remain n.p.o. for now given depressed mentation and high risk for aspiration. 4. Encephalopathy Most likely metabolic in etiology. Plan to continue current supportive measures as noted above. Avoid sedating medications. Continue with delirium protocol 5. Cervical spinal stenosis status post recent surgery/rheumatoid arthritis/anemia/hypertension Complicates care, management, recovery and prognosis. Continue to hold antihypertensives/diuretics. 6. A. fib with RVR Unclear chronicity at this time. Patient is on amiodarone. Patient has not had an echocardiogram during this hospitalization. Patient's EF was preserved in 2016. We will continue with amiodarone for now. Patient will likely require a work-up as an outpatient. Patient unable to be placed on a 10 a inhibitor secondary to encephalopathy and concern for swallow. Subjective Subjective Patient did okay overnight. Patient was able to be taken off the Levophed yesterday. Patient has had some marginal blood pressures overnight associated with initiation of amiodarone. Patient remains significantly confused and unable to answer my questions. Patient is relatively alert and able to track appropriately. Objective Data Objective Data Vital Signs: Vital Signs Temp Pulse Resp BP Pulse Ox 36.4 C L 100 16 117/42 L 93 08/30/20 04:00 08/30/20 06:00 08/30/20 06:00 08/30/20 06:00 08/30/20 06:00 Oxygen Flow Rate (L/min) 2 Oxygen Delivery Method Room Air Weight: 81.8 kg Body Mass Index (BMI) 26.8 Intake & Output: Intake and Output for Last 24 Hours 08/28/20 08/29/20 08/30/20 23:59 23:59 23:59 Intake Total 3132.18 / 3135.93 1792.46 / 1792.46 200 / 200 Output Total 460 / 460 470 / 545 115 / 115 Balance 2672.18 / 2675.93 1322.46 / 1247.46 85 / 85 Lab / Micro Data Result Diagrams: 08/30/20 05:00 08/30/20 05:00 Labs: Laboratory Results - last 24 hr 08/29/20 08/29/20 08/29/20 11:18 17:47 18:21 WBC RBC Hgb Hct MCV MCH MCHC RDW Std Deviation RDW Coeff of Kavon Plt Count MPV Immature Gran % (Auto) Neut % (Auto) Lymph % (Auto) [place] % (Auto) Eos % (Auto) Baso % (Auto) Absolute Neuts (auto) Absolute Lymphs (auto) Nucleated RBC % Anisocytosis Target Cells Sodium Potassium Chloride Carbon Dioxide Anion Gap BUN Creatinine Estim Creat Clear Calc Est GFR (MDRD) Af Amer Est GFR (MDRD) Non-Af BUN/Creatinine Ratio Glucose Calcium Random Vancomycin POC Glucose 83 66 L 67 L 08/29/20 08/30/20 08/30/20 18:40 00:49 05:00 WBC RBC Hgb Hct MCV MCH MCHC RDW Std Deviation RDW Coeff of Kavon Plt Count MPV Immature Gran % (Auto) Neut % (Auto) Lymph % (Auto) [place] % (Auto) Eos % (Auto) Baso % (Auto) Absolute Neuts (auto) Absolute Lymphs (auto) Nucleated RBC % Anisocytosis Target Cells Sodium Potassium Chloride Carbon Dioxide Anion Gap BUN Creatinine Estim Creat Clear Calc Est GFR (MDRD) Af Amer Est GFR (MDRD) Non-Af BUN/Creatinine Ratio Glucose Calcium Random Vancomycin Cancelled POC Glucose 125 H 111 H 08/30/20 08/30/20 08/30/20 05:00 05:00 06:09 WBC 19.3 H RBC 3.54 L Hgb 9.2 L Hct 28.5 L MCV 80.5 L MCH 26.0 L MCHC 32.3 RDW Std Deviation 57.6 H RDW Coeff of Kavon 20.5 H Plt Count 115 L MPV 10.1 Immature Gran % (Auto) 1.200 H Neut % (Auto) 91.2 H Lymph % (Auto) 5.7 L [place] % (Auto) 1.6 Eos % (Auto) 0.1 Baso % (Auto) 0.2 Absolute Neuts (auto) 17.6 H Absolute Lymphs (auto) 1.10 Nucleated RBC % 0.4 Anisocytosis 1+ Target Cells 1+ Sodium 143 Potassium 4.0 Chloride 108 H Carbon Dioxide 27.0 Anion Gap 8 BUN 55 H Creatinine 1.63 H Estim Creat Clear Calc 26.01 Est GFR (MDRD) Af Amer 39 L Est GFR (MDRD) Non-Af 33 L BUN/Creatinine Ratio 33.7 H Glucose 126 H Calcium 6.6 L Random Vancomycin POC Glucose 110 Micro: Microbiology 08/26/20 22:15 Blood Culture (Wb) - Right Wrist Blood Culture - Preliminary No growth in 48 hours. 08/26/20 16:30 Blood Culture (Wb) - Central Line Blood Culture - Preliminary No growth in 48 hours. 08/26/20 18:45 Urine Catheter - Nash Urine Culture - Final Culture exhibits no growth. Physical Exam Const alert General Appearance: appears older than stated age; Negative for in distress Orientation / Consciousness: disoriented Exam Limitations: altered mental status Nutritional Appearance: overweight HEENT normocephalic and head/scalp atraumatic HEENT Narrative: Alopecia. Poor dentition. Eyes EOMs intact bilaterally and conjunctivae normal Neck Neck Narrative: Posterior neck wound appears intact without any purulence Resp Auscultation: rhonchi and diminished lung sounds; Negative for rales or wheezes Cardio S1 normal heart sound, S2 normal heart sound, no murmurs, no rub and no gallops Rhythm: abnormal rhythm irregularly irregular GI normal to inspection, nondistended, normoactive bowel sounds, soft to palpation, non-tender and non-distended Extremity normal to inspection General Extremity: edema bilateral (1+) lower extremity; Negative for clubbing or cyanosis Skin no rashes or lesions noted Psych Mood & Affect: flat affect Charges/Coding Visit Charges Inpatient E&M: 43916 Subs Hosp L3
[2020-08-30 07:27] LABS: Vancomycin, Random Level 17.4 ug/mL (0.0-15.0)
[2020-08-30] MEDS: Dextrose 5%/0.9% NaCl 1,000 ML 75 ML IV ×2 (08:36→21:37)
[2020-08-30] MEDS: Vancomycin IV 1,000 MG/200 ML BAG 200 MG IV (08:42)
--- NOTE | 2020-08-30 09:36 | CASEMGMT ---
SW participated in ICU rounds, pt remains NPO at this time. Pt is a rn long term care resident from [facility]. SW called [facility] to let them know pt is still in ICU. [facility] will fax updates shortly. KALI Sultana
--- NOTE | 2020-08-30 09:39 | PCM.RX.CS ---
Consult Pharmacy has been consulted to manage selected antiobiotic: Vancomycin Type of Consult: Follow-up Suspected Infection: Sepsis Prior Doses of Antibiotics Received/Current Regimen: Medications Vancomycin HCl (Vancomycin) 1,000 mg in 200 mls @ 200 mls/hr IV X1 ONE Stop: 08/30/20 09:59 Last Admin: 08/30/20 08:42 Dose: 200 mls/hr Documented by: Labs: Sodium 143 mmol/L (136-145) 08/30/20 05:00 Potassium 4.0 mmol/L (3.5-5.1) 08/30/20 05:00 Chloride 108 mmol/L (98-107) H 08/30/20 05:00 Carbon Dioxide 27.0 mmol/L (21.0-32.0) 08/30/20 05:00 Anion Gap 8 (5-15) 08/30/20 05:00 BUN 55 mg/dL (7-18) H 08/30/20 05:00 Creatinine 1.63 mg/dL (0.55-1.02) H 08/30/20 05:00 Est GFR (MDRD) Af Amer 39 mL/min (>60) L 08/30/20 05:00 Est GFR (MDRD) Non-Af 33 mL/min (>60) L 08/30/20 05:00 BUN/Creatinine Ratio 33.7 RATIO (10-20) H 08/30/20 05:00 Glucose 126 mg/dL (74-106) H 08/30/20 05:00 Random Vancomycin 17.4 ug/mL (0.0-15.0) H 08/30/20 06:40 Microbiology: Microbiology 08/26/20 22:15 Blood Culture (Wb) - Right Wrist Blood Culture - Preliminary No growth in 48 hours. 08/26/20 16:30 Blood Culture (Wb) - Central Line Blood Culture - Preliminary No growth in 48 hours. 08/26/20 18:45 Urine Catheter - Nash Urine Culture - Final Culture exhibits no growth. Weight used for dosin.1 kg Estimated Creatinine Clearance: 26 ml/min Goal Trough: 15-20 mcg/mL Pharmacy Plan for Drug Dosing: Pharmacy Service will continue to monitor and adjust dosing as required. The vancomycin level returned at 17.4 after the 08/28/20 0811 dose (46 hr level) A supplemental vancomycin 1000mg dose was ordered for 08/30/20 using the admitting weight. A random level will be ordered for 08/31/20 since the CrCl has improved to 26 ml/min. Follow-Up Labs: Trough Vancomycin - random level Labs to be done on [date and time ordered]: random level for 08/31/20 0600
--- NOTE | 2020-08-30 09:47 | NURSING ---
following sterile protocol, right subclavian central line dressing changed, pt tolerated well.
--- NOTE | 2020-08-30 10:07 | CASEMGMT ---
Updates faxed to [facility]. KALI Sultana
--- NOTE | 2020-08-30 10:15 | CASEMGMT ---
Pt screened with [facility] Palliative Care Screening Tool due to strata 3, pt met criteria. No order received at this time.
[2020-08-30] MEDS: Enoxaparin 80 MG/0.8 ML Syringe SC ×2 (11:23→21:40)
[2020-08-30 11:30] LABS: Bedside Glucose 103 mg/dL (70-110)
--- NOTE | 2020-08-30 12:09 | PCM.PN.REN ---
Subjective Subjective sleepy. no complaints Objective Data Objective Data Vital Signs: Vital Signs Temp Pulse Resp BP Pulse Ox 97.6 F L 102 H 18 131/70 H 94 08/30/20 11:59 08/30/20 11:59 08/30/20 11:59 08/30/20 11:59 08/30/20 11:59 Oxygen Flow Rate (L/min) 2 Oxygen Delivery Method Room Air Weight: 81.8 kg Body Mass Index (BMI) 26.8 Intake & Output: Intake and Output for Last 24 Hours 08/28/20 08/29/20 08/30/20 23:59 23:59 23:59 Intake Total 3132.18 / 3135.93 1792.46 / 1792.46 1570 / 1570 Output Total 460 / 460 470 / 545 250 / 250 Balance 2672.18 / 2675.93 1322.46 / 1247.46 1320 / 1320 Lab / Micro Data Result Diagrams: 08/30/20 05:00 08/30/20 05:00 Labs: Laboratory Results - last 24 hr 08/29/20 08/29/20 08/29/20 17:47 18:21 18:40 WBC RBC Hgb Hct MCV MCH MCHC RDW Std Deviation RDW Coeff of Kavon Plt Count MPV Immature Gran % (Auto) Neut % (Auto) Lymph % (Auto) [place] % (Auto) Eos % (Auto) Baso % (Auto) Absolute Neuts (auto) Absolute Lymphs (auto) Nucleated RBC % Anisocytosis Target Cells Sodium Potassium Chloride Carbon Dioxide Anion Gap BUN Creatinine Estim Creat Clear Calc Est GFR (MDRD) Af Amer Est GFR (MDRD) Non-Af BUN/Creatinine Ratio Glucose Calcium Random Vancomycin POC Glucose 66 L 67 L 125 H 08/30/20 08/30/20 08/30/20 00:49 05:00 05:00 WBC 19.3 H RBC 3.54 L Hgb 9.2 L Hct 28.5 L MCV 80.5 L MCH 26.0 L MCHC 32.3 RDW Std Deviation 57.6 H RDW Coeff of Kavon 20.5 H Plt Count 115 L MPV 10.1 Immature Gran % (Auto) 1.200 H Neut % (Auto) 91.2 H Lymph % (Auto) 5.7 L [place] % (Auto) 1.6 Eos % (Auto) 0.1 Baso % (Auto) 0.2 Absolute Neuts (auto) 17.6 H Absolute Lymphs (auto) 1.10 Nucleated RBC % 0.4 Anisocytosis 1+ Target Cells 1+ Sodium Potassium Chloride Carbon Dioxide Anion Gap BUN Creatinine Estim Creat Clear Calc Est GFR (MDRD) Af Amer Est GFR (MDRD) Non-Af BUN/Creatinine Ratio Glucose Calcium Random Vancomycin Cancelled POC Glucose 111 H 08/30/20 08/30/20 08/30/20 05:00 06:09 06:40 WBC RBC Hgb Hct MCV MCH MCHC RDW Std Deviation RDW Coeff of Kavon Plt Count MPV Immature Gran % (Auto) Neut % (Auto) Lymph % (Auto) [place] % (Auto) Eos % (Auto) Baso % (Auto) Absolute Neuts (auto) Absolute Lymphs (auto) Nucleated RBC % Anisocytosis Target Cells Sodium 143 Potassium 4.0 Chloride 108 H Carbon Dioxide 27.0 Anion Gap 8 BUN 55 H Creatinine 1.63 H Estim Creat Clear Calc 26.01 Est GFR (MDRD) Af Amer 39 L Est GFR (MDRD) Non-Af 33 L BUN/Creatinine Ratio 33.7 H Glucose 126 H Calcium 6.6 L Random Vancomycin 17.4 H POC Glucose 110 08/30/20 11:22 WBC RBC Hgb Hct MCV MCH MCHC RDW Std Deviation RDW Coeff of Kavon Plt Count MPV Immature Gran % (Auto) Neut % (Auto) Lymph % (Auto) [place] % (Auto) Eos % (Auto) Baso % (Auto) Absolute Neuts (auto) Absolute Lymphs (auto) Nucleated RBC % Anisocytosis Target Cells Sodium Potassium Chloride Carbon Dioxide Anion Gap BUN Creatinine Estim Creat Clear Calc Est GFR (MDRD) Af Amer Est GFR (MDRD) Non-Af BUN/Creatinine Ratio Glucose Calcium Random Vancomycin POC Glucose 103 Micro: Microbiology 08/26/20 22:15 Blood Culture (Wb) - Right Wrist Blood Culture - Preliminary No growth in 48 hours. 08/26/20 16:30 Blood Culture (Wb) - Central Line Blood Culture - Preliminary No growth in 48 hours. 08/26/20 18:45 Urine Catheter - Nash Urine Culture - Final Culture exhibits no growth. Physical Exam Const General Appearance: lethargic Exam Limitations: altered mental status Eyes conjunctivae normal Neck no lymphadenopathy Resp clear to auscultation bilaterally Cardio Rate: tachycardic Rhythm: regular rhythm Heart Sounds: S1 normal and S2 normal GI Auscultation: hypoactive bowel sounds Palpation: soft Percussion: normal to percussion Extremity General Extremity: other findings Other Details: no edema of LE Skin General Skin Exam: no breakdown Neuro Neuro Narrative: obtunded. Assessment & Plan Assessment/Plan (1) Acute kidney injury: (2) Hyperkalemia: (3) Metabolic acidosis: (4) Lactic acidosis: (5) Septic shock: PLAN: Normal baseline Cr STEPHAN is likely ischemia ATN cr is trending down electrolytes are ok no edema
--- NOTE | 2020-08-30 12:17 | NURSING ---
wound photo: posterior neck
--- NOTE | 2020-08-30 12:18 | NURSING ---
wound photo: sacrum
[2020-08-30 13:29] LABS: Pathologist Review Reviewed
--- NOTE | 2020-08-30 14:34 | PCM.PN.ID ---
Physical Exam Narrative Feeling better, no fever, no abd pain, no dyspnea Const alert and no apparent distress General Appearance: cooperative Resp Auscultation: rhonchi Cardio regular rate and regular rhythm GI normal to inspection, nondistended, normoactive bowel sounds Skin no rashes or lesions noted ID ID: Route of nutrition/ use of supplements: [] Nutritional Intake: [] IV Site: [] Nash Catheter: [] Assessment & Plan Assessment/Plan (1) Septic shock: PLAN: septic shock with STEPHAN, hypoxic resp failure, encephalopathy - unclear source. Off pressors now. Had c-spine decompression/fusion in 03/2020 complicated by some persistent drainage/wound. CT here of neck did not show any abscess. UA neg here, cxr relatively clear. Had covid in February, neg here. Will stop vanc, cont meropenem. Improving. Will follow (2) Acute kidney injury: (3) Lactic acidosis: (4) Encephalopathy acute:
--- NOTE | 2020-08-30 15:10 | NURSING ---
called daughter, Roxann, for update on POC. Questions answered regarding hospice vs continuing care plan, per daughter Thoughts of hospice are in back of my head, I do not want to see my mom suffering. Emotional support provided. At this time, daughter requests pt to stay DNRCCA-DNI with no changes to POC.
--- NOTE | 2020-08-30 17:06 | NURSING ---
per daughter, pt was occasionally using slideboard at shelter but was mainly a salas lift.
[2020-08-30 17:25] LABS: Bedside Glucose 122 mg/dL (70-110)
[2020-08-30 17:36] LABS: M R Staph aureus DNA By PCR Negative (Negative); Probe Check PASS; Specimen Processing Control PASS; Staph aureus DNA By PCR NEGATIVE (Negative)
--- NOTE | 2020-08-30 18:34 | PN.HOSP_ITS ---
Subjective Subjective No issues overnight, her pressor support was discontinued and infectious disease discontinued her vancomycin. She is still confused and has difficulty answering questions. Objective Data Objective Data Vital Signs: Vital Signs Temp Pulse Resp BP Pulse Ox 98.1 F 101 H 17 115/84 H 90 08/30/20 16:00 08/30/20 18:00 08/30/20 18:00 08/30/20 18:00 08/30/20 18:00 Oxygen Flow Rate (L/min) 2 Oxygen Delivery Method Room Air Weight: 180 lb 5.41 oz Body Mass Index (BMI) 26.8 Intake & Output: Intake and Output for Last 24 Hours 08/29/20 08/30/20 08/31/20 03:59 03:59 03:59 Intake Total 3032.51 / 3039.56 1949.73 / 1949.73 1570 / 1570 Output Total 310 / 310 545 / 545 260 / 260 Balance 2722.51 / 2729.56 1404.73 / 1404.73 1310 / 1310 Lab / Micro Data Result Diagrams: 08/31/20 04:05 08/31/20 04:05 Labs: Laboratory Results - last 24 hr 08/28/20 08/29/20 08/29/20 05:00 17:47 18:21 WBC RBC Hgb Hct MCV MCH MCHC RDW Std Deviation RDW Coeff of Kavon Plt Count MPV Immature Gran % (Auto) Neut % (Auto) Lymph % (Auto) [place] % (Auto) Eos % (Auto) Baso % (Auto) Absolute Neuts (auto) Absolute Lymphs (auto) Nucleated RBC % Diff Path Review Reviewed Anisocytosis Target Cells Sodium Potassium Chloride Carbon Dioxide Anion Gap BUN Creatinine Estim Creat Clear Calc Est GFR (MDRD) Af Amer Est GFR (MDRD) Non-Af BUN/Creatinine Ratio Glucose Calcium Random Vancomycin S.aureus Protein A PCR MRSA (PCR) POC Glucose 66 L 67 L 08/29/20 08/30/20 08/30/20 18:40 00:49 05:00 WBC RBC Hgb Hct MCV MCH MCHC RDW Std Deviation RDW Coeff of Kavon Plt Count MPV Immature Gran % (Auto) Neut % (Auto) Lymph % (Auto) [place] % (Auto) Eos % (Auto) Baso % (Auto) Absolute Neuts (auto) Absolute Lymphs (auto) Nucleated RBC % Diff Path Review Anisocytosis Target Cells Sodium Potassium Chloride Carbon Dioxide Anion Gap BUN Creatinine Estim Creat Clear Calc Est GFR (MDRD) Af Amer Est GFR (MDRD) Non-Af BUN/Creatinine Ratio Glucose Calcium Random Vancomycin Cancelled S.aureus Protein A PCR MRSA (PCR) POC Glucose 125 H 111 H 08/30/20 08/30/20 08/30/20 05:00 05:00 06:09 WBC 19.3 H RBC 3.54 L Hgb 9.2 L Hct 28.5 L MCV 80.5 L MCH 26.0 L MCHC 32.3 RDW Std Deviation 57.6 H RDW Coeff of Kavon 20.5 H Plt Count 115 L MPV 10.1 Immature Gran % (Auto) 1.200 H Neut % (Auto) 91.2 H Lymph % (Auto) 5.7 L [place] % (Auto) 1.6 Eos % (Auto) 0.1 Baso % (Auto) 0.2 Absolute Neuts (auto) 17.6 H Absolute Lymphs (auto) 1.10 Nucleated RBC % 0.[address] Review Anisocytosis 1+ Target Cells 1+ Sodium 143 Potassium 4.0 Chloride 108 H Carbon Dioxide 27.0 Anion Gap 8 BUN 55 H Creatinine 1.63 H Estim Creat Clear Calc 26.01 Est GFR (MDRD) Af Amer 39 L Est GFR (MDRD) Non-Af 33 L BUN/Creatinine Ratio 33.7 H Glucose 126 H Calcium 6.6 L Random Vancomycin S.aureus Protein A PCR MRSA (PCR) POC Glucose 110 08/30/20 08/30/20 08/30/20 06:40 11:22 11:50 WBC RBC Hgb Hct MCV MCH MCHC RDW Std Deviation RDW Coeff of Kavon Plt Count MPV Immature Gran % (Auto) Neut % (Auto) Lymph % (Auto) [place] % (Auto) Eos % (Auto) Baso % (Auto) Absolute Neuts (auto) Absolute Lymphs (auto) Nucleated RBC % Diff Path Review Anisocytosis Target Cells Sodium Potassium Chloride Carbon Dioxide Anion Gap BUN Creatinine Estim Creat Clear Calc Est GFR (MDRD) Af Amer Est GFR (MDRD) Non-Af BUN/Creatinine Ratio Glucose Calcium Random Vancomycin 17.4 H S.aureus Protein A PCR NEGATIVE MRSA (PCR) Negative POC Glucose 103 08/30/20 17:22 WBC RBC Hgb Hct MCV MCH MCHC RDW Std Deviation RDW Coeff of Kavon Plt Count MPV Immature Gran % (Auto) Neut % (Auto) Lymph % (Auto) [place] % (Auto) Eos % (Auto) Baso % (Auto) Absolute Neuts (auto) Absolute Lymphs (auto) Nucleated RBC % Diff Path Review Anisocytosis Target Cells Sodium Potassium Chloride Carbon Dioxide Anion Gap BUN Creatinine Estim Creat Clear Calc Est GFR (MDRD) Af Amer Est GFR (MDRD) Non-Af BUN/Creatinine Ratio Glucose Calcium Random Vancomycin S.aureus Protein A PCR MRSA (PCR) POC Glucose 122 H Micro: Microbiology 08/26/20 22:15 Blood Culture (Wb) - Right Wrist Blood Culture - Preliminary No growth in 48 hours. 08/26/20 16:30 Blood Culture (Wb) - Central Line Blood Culture - Preliminary No growth in 48 hours. 08/26/20 18:45 Urine Catheter - Nash Urine Culture - Final Culture exhibits no growth. Physical Exam Const alert and no apparent distress Constitutional Narrative: very frail Orientation / Consciousness: disoriented HEENT normocephalic Mouth: dry mucous membranes Eyes PERRL, EOMs intact bilaterally and conjunctivae normal Neck supple and no JVD Resp normal respiratory effort Auscultation: diminished lung sounds; Negative for crackles, rales, rhonchi or wheezes Cardio S1 normal heart sound, S2 normal heart sound and no murmurs Rate: tachycardic Rhythm: abnormal rhythm GI soft to palpation, non-tender and non-distended; Negative for hepatosplenomegaly Extremity no clubbing, cyanosis or edema Skin no rashes or lesions noted Skin Narrative: dressing at back of her neck Neuro moves all extremities, no focal motor deficits and no sensory deficits noted Neuro Narrative: Unable to follow commands Psych Mood & Affect: flat affect Assessment & Plan Assessment/Plan (1) Lactic acidosis: (2) Metabolic acidosis: (3) Hyperkalemia: (4) Acute kidney injury: (5) Septic shock: (6) Pneumonia: QUALIFIERS: Pneumonia type: due to unspecified organism Laterality: right Lung location: upper lobe of lung Qualified Code(s): J18.9 - Pneumonia, unspecified organism PLAN: #Septic shock secondary to right upper lobe pneumonia * Patient remains on Levophed drip. On IV meropenem. WBC is down to 26 today. * Blood cultures showed no growth after 48 hours. Plan is to titrate Levophed to maintain MAP at 65 and above. * ID on board. Critical care also on board. * CT of the cervical spine didn't show any evidence of infection. * 08/30/2020?discontinue Levophed and vancomycin, continue with meropenem #New onset A. fib with RVR * Continue with amiodarone drip as well as IV Lopressor #STEPHAN and anion gap metabolic acidosis * Creatinine is down to 1.9, and bicarb is 29. * I dont anticipate that with improvement of bicarb and Cr, patient will likely not need dialysis * 08/30/2020?appreciate nephrology assistance, will continue to monitor #Acute hypoxic respiratory failure * Etiology is unclear. now on 2L of oxygen by nasal canula * Titrate oxygen to maintain saturation at or above 90%. * on IV meropenem * #Type 2 diabetes mellitus: Home meds on hold. Currently Accu-Cheks every 6 hourly. Insulin sliding scale. #Cervical spine stenosis: S/p recent neck surgery. CT done during this admission was negative. #Acute metabolic encephalopathy due to septic shock: Management as under septic shock #Benign essential hypertension: BP meds on hold on account of septic shock. #DVT prophylaxis: heparin. CODE STATUS: DNR CCA no intubation Charges/Coding Visit Charges Inpatient E&M: 56571 Subs Hosp L2
[2020-08-30] MEDS: 0.9% Saline Lock 10 ML Syringe IV (18:36)
[2020-08-30 23:06] LABS: Bedside Glucose 108 mg/dL (70-110)
[2020-08-31] VITALS (29 sets, daily range): BP systolic 116–156; BP diastolic 46–111; PULSE 84–131; RESP 13–23; TEMP 36–37.1; O2SAT 92–100
[2020-08-31] MEDS: Amiodarone 360 MG in Dextrose 5% Viaflo Bag 192.8 ML 16.7 MG CONT INF ×2 (02:00→15:32)
[2020-08-31 04:20] LABS: Absolute Lymphocyte Count 1.05 X10^3/uL (0.83-4.51); Absolute Neutrophil Count 14.2 X10^3/uL (2.0-7.7); Basophil# 0.03 X10^3/uL; Basophil% 0.2 % (0-1); Eosinophil# 0.04 X10^3/uL; Eosinophils% 0.3 % (0-5); Hematocrit 29.2 % (37-47); Hemoglobin 9.6 g/dL (12.0-15.0); Lymphocyte # 1.05 X10^3/ul (0.83-4.51); Lymphocyte % 6.6 % (19-41); Mean Corp Hgb Conc 32.9 g/dL (32-36); Mean Corpuscular Hgb 26.7 pg (27.0-32.0); Mean Corpuscular Volume 81.1 fL (81-99); Monocyte# 0.42 X10^3/uL; Monocyte% 2.6 % (0-10); NRBC Flagged by Analyzer 0.4 % (0-5); Neutrophil # 14.23 X10^3/uL (2.7-7.7); Platelet Count 102 K/mm3 (150-450); RBC Distribution Width SD 54.3 fl (35.1-43.9)
[2020-08-31 04:31] LABS: Anion Gap 8 (5-15); BUN 51 mg/dL (7-18); BUN/Creat Ratio 37.5 RATIO (10-20); Calcium,Total 6.6 mg/dL (8.5-10.1); Chloride 109 mmol/L (98-107); Creatinine, Serum 1.36 mg/dL (0.55-1.02); EST Glomerular Filtration Rate 40 mL/min (>60); Est Glom Filt Rate - Afr Amer 48 mL/min (>60); Estimated Creatinine Clearance 31.17 ml/min; Glucose 112 mg/dL (74-106); Potassium 3.9 mmol/L (3.5-5.1); Sodium Level 144 mmol/L (136-145)
[2020-08-31 04:56] LABS: Vancomycin, Random Level 20.7 ug/mL (0.0-15.0)
[2020-08-31] MEDS: Metoprolol Tartrate 5 MG/5 ML Vial IV ×2 (05:53→14:05)
[2020-08-31] MEDS: CHLORHEXIDINE GLUC 2% CLOTH 1 EACH TOWELETTE TOPICAL (05:53)
--- NOTE | 2020-08-31 07:14 | PCM.RX.CS ---
Consult Pharmacy has been consulted to manage selected antiobiotic: Vancomycin Type of Consult: Follow-up Suspected Infection: Sepsis Labs: Sodium 144 mmol/L (136-145) 08/31/20 04:05 Potassium 3.9 mmol/L (3.5-5.1) 08/31/20 04:05 Chloride 109 mmol/L (98-107) H 08/31/20 04:05 Carbon Dioxide 27.0 mmol/L (21.0-32.0) 08/31/20 04:05 Anion Gap 8 (5-15) 08/31/20 04:05 BUN 51 mg/dL (7-18) H 08/31/20 04:05 Creatinine 1.36 mg/dL (0.55-1.02) H 08/31/20 04:05 Est GFR (MDRD) Af Amer 48 mL/min (>60) L 08/31/20 04:05 Est GFR (MDRD) Non-Af 40 mL/min (>60) L 08/31/20 04:05 BUN/Creatinine Ratio 37.5 RATIO (10-20) H 08/31/20 04:05 Glucose 112 mg/dL (74-106) H 08/31/20 04:05 Random Vancomycin 20.7 ug/mL (0.0-15.0) H 08/31/20 04:05 Microbiology: Microbiology 08/26/20 22:15 Blood Culture (Wb) - Right Wrist Blood Culture - Preliminary No growth in 48 hours. 08/26/20 16:30 Blood Culture (Wb) - Central Line Blood Culture - Preliminary No growth in 48 hours. 08/26/20 18:45 Urine Catheter - Nash Urine Culture - Final Culture exhibits no growth. Goal Trough: 15-20 mcg/mL Pharmacy Plan for Drug Dosing: VANCOMYCIN LEVEL RECEIVED Current Vancomycin Dose: last dose received was 1000mg iv x1 on 08/30/20 at 0842 Number of Doses Received: 2000mg x1 on 08/26, 1000mg x1 on 08/28, and 1000mg x1 on 08/30 Vancomycin Level: random level resulted at 20.7 Hours Since Last Dose: ~19 Renal Function: SrCr 1.36 Renal Function Trend: Pts SrCr and CrCl are improving Lab/Micro: Vancomycin Plan/Comments: pt is currently being renally dosed. pt initially had a CrCl <20 when Vancomycin was started. Recommend continuing to renally dose pt even though SrCr and CrCl are improving. pt has gained 10+ pounds since the start of the medication, urine output is decreasing daily, and nephrology is following pt. Recommend a x1 dose of Vancomycin 500mg but to be administered in the afternoon due to a random level of 20.7. Pending Level: 09/01/20 at 0600 Pharmacy Service will continue to monitor and adjust dosing as required. Follow-Up Labs: Trough Vancomycin - 09/01/20 at 0600
--- NOTE | 2020-08-31 07:41 | PCM.PN.INT ---
Assessment & Plan Assessment/Plan (1) Septic shock: PLAN: RECOMMENDATIONS: 1. Attempt bedside swallow evaluation 2. Continue broad-spectrum empiric antimicrobials per infectious diseases recommendations. 3. Potentially transition to p.o. amiodarone if passes swallow eval 4. Anticipate total of 7 days of antibiotics IMPRESSIONS: 1. Septic shock Concern for underlying pulmonary infectious process as etiology. Although the patient recently underwent cervical spine surgery, CT C-spine did not demonstrate any evidence of abscess or fluid collection. However, limited slices through the lungs on CT neck did reveal infiltrate. Coronavirus PCR was negative. Recommend continuing antimicrobials per ID recommendations. Overall, the patient appears to be clinically improving. 2. Acute kidney injury/anion gap metabolic acidosis/hyperkalemia Improving. Likely prerenal in etiology with a component of ischemic ATN in the setting of #1. Nephrology is currently following. Given improvement in metabolic acidosis, okay to discontinue bicarbonate infusion. 3. Acute hypoxemic respiratory failure Resolved. Concern for underlying pulmonary infectious process based upon limited slices through lungs noted on CT neck. Recommend continuing supplemental oxygen to maintain saturations at or above 90%. The patient is to remain n.p.o. for now given depressed mentation and high risk for aspiration. 4. Encephalopathy Improving. Most likely metabolic in etiology. Plan to continue current supportive measures as noted above. Avoid sedating medications. Continue with delirium protocol 5. Cervical spinal stenosis status post recent surgery/rheumatoid arthritis/anemia/hypertension Complicates care, management, recovery and prognosis. Continue to hold antihypertensives/diuretics. 6. A. fib with RVR Unclear chronicity at this time. Patient is on amiodarone. Patient has not had an echocardiogram during this hospitalization. Patient's EF was preserved in 2016. Potentially transition to p.o. 10 a inhibitor and amiodarone if able to pass swallow evaluation. Patient will likely require a work-up as an outpatient. Patient unable to be placed on a 10 a inhibitor secondary to concern for swallow. Patient currently on twice daily Lovenox Subjective Subjective Patient did well overnight. No acute issues were reported. Patient is more interactive, but had some confusion overnight. Patient is reporting that she is hungry and is willing to work with nursing on a swallow evaluation. Patient states she does wear a partial dental appliance at baseline, but is not aware of where it is. Objective Data Objective Data Vital Signs: Vital Signs Temp Pulse Resp BP Pulse Ox 36.9 C 93 19 H 142/54 H 95 08/31/20 07:00 08/31/20 07:00 08/31/20 07:00 08/31/20 07:00 08/31/20 07:00 Oxygen Flow Rate (L/min) 2 Oxygen Delivery Method Room Air Weight: 83.2 kg Body Mass Index (BMI) 26.8 Intake & Output: Intake and Output for Last 24 Hours 08/29/20 08/30/20 08/31/20 23:59 23:59 23:59 Intake Total 1792.46 / 1792.46 2746.25 / 2746.25 243.7 / 243.7 Output Total 470 / 545 440 / 440 140 / 140 Balance 1322.46 / 1247.46 2306.25 / 2306.25 103.7 / 103.7 Lab / Micro Data Result Diagrams: 08/31/20 04:05 08/31/20 04:05 Labs: Laboratory Results - last 24 hr 08/28/20 08/30/20 08/30/20 05:00 11:22 11:50 WBC RBC Hgb Hct MCV MCH MCHC RDW Std Deviation RDW Coeff of Kavon Plt Count MPV Immature Gran % (Auto) Neut % (Auto) Lymph % (Auto) [place] % (Auto) Eos % (Auto) Baso % (Auto) Absolute Neuts (auto) Absolute Lymphs (auto) Nucleated RBC % Diff Path Review Reviewed Sodium Potassium Chloride Carbon Dioxide Anion Gap BUN Creatinine Estim Creat Clear Calc Est GFR (MDRD) Af Amer Est GFR (MDRD) Non-Af BUN/Creatinine Ratio Glucose Calcium Random Vancomycin S.aureus Protein A PCR NEGATIVE MRSA (PCR) Negative POC Glucose 103 08/30/20 08/30/20 08/31/20 17:22 22:59 04:05 WBC RBC Hgb Hct MCV MCH MCHC RDW Std Deviation RDW Coeff of Kavon Plt Count MPV Immature Gran % (Auto) Neut % (Auto) Lymph % (Auto) [place] % (Auto) Eos % (Auto) Baso % (Auto) Absolute Neuts (auto) Absolute Lymphs (auto) Nucleated RBC % Diff Path Review Sodium Potassium Chloride Carbon Dioxide Anion Gap BUN Creatinine Estim Creat Clear Calc Est GFR (MDRD) Af Amer Est GFR (MDRD) Non-Af BUN/Creatinine Ratio Glucose Calcium Random Vancomycin 20.7 H S.aureus Protein A PCR MRSA (PCR) POC Glucose 122 H 108 08/31/20 08/31/20 04:05 04:05 WBC 16.0 H RBC 3.60 L Hgb 9.6 L Hct 29.2 L MCV 81.1 MCH 26.7 L MCHC 32.9 RDW Std Deviation 54.3 H RDW Coeff of Kavon 20.0 H Plt Count 102 L MPV 10.0 Immature Gran % (Auto) 1.300 H Neut % (Auto) 89.0 H Lymph % (Auto) 6.6 L [place] % (Auto) 2.6 Eos % (Auto) 0.3 Baso % (Auto) 0.2 Absolute Neuts (auto) 14.2 H Absolute Lymphs (auto) 1.05 Nucleated RBC % 0.4 Diff Path Review Sodium 144 Potassium 3.9 Chloride 109 H Carbon Dioxide 27.0 Anion Gap 8 BUN 51 H Creatinine 1.36 H Estim Creat Clear Calc 31.17 Est GFR (MDRD) Af Amer 48 L Est GFR (MDRD) Non-Af 40 L BUN/Creatinine Ratio 37.5 H Glucose 112 H Calcium 6.6 L Random Vancomycin S.aureus Protein A PCR MRSA (PCR) POC Glucose Micro: Microbiology 08/26/20 22:15 Blood Culture (Wb) - Right Wrist Blood Culture - Preliminary No growth in 48 hours. 08/26/20 16:30 Blood Culture (Wb) - Central Line Blood Culture - Preliminary No growth in 48 hours. 08/26/20 18:45 Urine Catheter - Nash Urine Culture - Final Culture exhibits no growth. Physical Exam Const alert General Appearance: appears older than stated age; Negative for in distress Orientation / Consciousness: disoriented Exam Limitations: altered mental status Nutritional Appearance: overweight HEENT normocephalic and head/scalp atraumatic Eyes EOMs intact bilaterally and conjunctivae normal Resp normal respiratory effort Auscultation: diminished lung sounds; Negative for rales, rhonchi or wheezes Cardio S1 normal heart sound, S2 normal heart sound, no murmurs, no rub and no gallops Rhythm: abnormal rhythm irregularly irregular GI normal to inspection, nondistended, normoactive bowel sounds, soft to palpation, non-tender and non-distended Extremity normal to inspection General Extremity: edema bilateral (1+) lower extremity; Negative for clubbing or cyanosis Skin no rashes or lesions noted Psych Mood & Affect: flat affect Charges/Coding Visit Charges Inpatient E&M: 51278 Subs Hosp L3
--- NOTE | 2020-08-31 09:46 | CASEMGMT ---
SW called [facility], spoke w/Sharri. SW asked for clarification on pt's diet, ambulation ability, and whether or not she has dentures. Sharri to call this SW back. Updates faxed to [facility]. KALI Sultana
[2020-08-31] MEDS: Dextrose 5%/0.9% NaCl 1,000 ML 75 ML IV (09:58)
[2020-08-31] MEDS: Enoxaparin 80 MG/0.8 ML Syringe SC ×2 (09:59→22:04)
--- NOTE | 2020-08-31 10:08 | CASEMGMT ---
Addendum entered by Roma Watson 08/31/20 10:22: SW spoke w/Sharri at [place], pt was on a mechanical soft diet at [place] due to dentation issues. She has a partial denture for the bottom that she does not wear. Also, most recently she has been needing a salas lift. KALI Sultana Original Note: Carmen Tariq called from [facility], she is pt's rehabilitation case coordinator. SW updated her on pt's condition, she asked to be notified when pt returns to [place]. SW will let her know when pt returns. KALI Sultana
[2020-08-31 11:35] LABS: Bedside Glucose 112 mg/dL (70-110)
--- NOTE | 2020-08-31 12:35 | PN.HOSP_ITS ---
Subjective Subjective No issues overnight, seems little bit more alert today. Will obtain a swallowing evaluation and if she passes can restart her diet and transition some of her medications to p.o. Objective Data Objective Data Vital Signs: Vital Signs Temp Pulse Resp BP Pulse Ox 98.7 F 114 H 19 H 134/59 H 92 08/31/20 12:00 08/31/20 12:00 08/31/20 12:00 08/31/20 12:00 08/31/20 12:00 Oxygen Flow Rate (L/min) 2 Oxygen Delivery Method Room Air Weight: 183 lb 6.793 oz Body Mass Index (BMI) 26.8 Intake & Output: Intake and Output for Last 24 Hours 08/30/20 08/31/20 09/01/20 03:59 03:59 03:59 Intake Total 1949.73 / 1949.73 2789.95 / 2789.95 1200.20 / 1200.20 Output Total 545 / 545 410 / 455 195 / 195 Balance 1404.73 / 1404.73 2379.95 / 2334.95 1005.20 / 1005.20 Lab / Micro Data Result Diagrams: 08/31/20 04:05 08/31/20 04:05 Labs: Laboratory Results - last 24 hr 08/28/20 08/30/20 08/30/20 05:00 11:50 17:22 WBC RBC Hgb Hct MCV MCH MCHC RDW Std Deviation RDW Coeff of Kavon Plt Count MPV Immature Gran % (Auto) Neut % (Auto) Lymph % (Auto) [place] % (Auto) Eos % (Auto) Baso % (Auto) Absolute Neuts (auto) Absolute Lymphs (auto) Nucleated RBC % Diff Path Review Reviewed Sodium Potassium Chloride Carbon Dioxide Anion Gap BUN Creatinine Estim Creat Clear Calc Est GFR (MDRD) Af Amer Est GFR (MDRD) Non-Af BUN/Creatinine Ratio Glucose Calcium Random Vancomycin S.aureus Protein A PCR NEGATIVE MRSA (PCR) Negative POC Glucose 122 H 08/30/20 08/31/20 08/31/20 22:59 04:05 04:05 WBC 16.0 H RBC 3.60 L Hgb 9.6 L Hct 29.2 L MCV 81.1 MCH 26.7 L MCHC 32.9 RDW Std Deviation 54.3 H RDW Coeff of Kavon 20.0 H Plt Count 102 L MPV 10.0 Immature Gran % (Auto) 1.300 H Neut % (Auto) 89.0 H Lymph % (Auto) 6.6 L [place] % (Auto) 2.6 Eos % (Auto) 0.3 Baso % (Auto) 0.2 Absolute Neuts (auto) 14.2 H Absolute Lymphs (auto) 1.05 Nucleated RBC % 0.4 Diff Path Review Sodium Potassium Chloride Carbon Dioxide Anion Gap BUN Creatinine Estim Creat Clear Calc Est GFR (MDRD) Af Amer Est GFR (MDRD) Non-Af BUN/Creatinine Ratio Glucose Calcium Random Vancomycin 20.7 H S.aureus Protein A PCR MRSA (PCR) POC Glucose 108 08/31/20 08/31/20 04:05 11:27 WBC RBC Hgb Hct MCV MCH MCHC RDW Std Deviation RDW Coeff of Kavon Plt Count MPV Immature Gran % (Auto) Neut % (Auto) Lymph % (Auto) [place] % (Auto) Eos % (Auto) Baso % (Auto) Absolute Neuts (auto) Absolute Lymphs (auto) Nucleated RBC % Diff Path Review Sodium 144 Potassium 3.9 Chloride 109 H Carbon Dioxide 27.0 Anion Gap 8 BUN 51 H Creatinine 1.36 H Estim Creat Clear Calc 31.17 Est GFR (MDRD) Af Amer 48 L Est GFR (MDRD) Non-Af 40 L BUN/Creatinine Ratio 37.5 H Glucose 112 H Calcium 6.6 L Random Vancomycin S.aureus Protein A PCR MRSA (PCR) POC Glucose 112 H Micro: Microbiology 08/30/20 11:50 Wound - Neck Gram Stain - Final 08/26/20 22:15 Blood Culture (Wb) - Right Wrist Blood Culture - Preliminary No growth in 48 hours. 08/26/20 16:30 Blood Culture (Wb) - Central Line Blood Culture - Preliminary No growth in 48 hours. 08/26/20 18:45 Urine Catheter - Nash Urine Culture - Final Culture exhibits no growth. Physical Exam Const alert and no apparent distress HEENT normocephalic Mouth: dry mucous membranes Eyes PERRL, EOMs intact bilaterally and conjunctivae normal Neck supple and no JVD Resp normal respiratory effort, normal air movement and no retractions Auscultation: diminished lung sounds; Negative for crackles, rales, rhonchi or wheezes Cardio S1 normal heart sound, S2 normal heart sound and no murmurs Rate: tachycardic Rhythm: abnormal rhythm GI soft to palpation, non-tender and non-distended; Negative for hepatosplenomegaly Extremity no clubbing, cyanosis or edema Skin no rashes or lesions noted Neuro moves all extremities and no focal motor deficits Psych Mood & Affect: flat affect Assessment & Plan Assessment/Plan (1) Lactic acidosis: (2) Metabolic acidosis: (3) Hyperkalemia: (4) Acute kidney injury: (5) Septic shock: (6) Pneumonia: QUALIFIERS: Laterality: right Lung location: upper lobe of lung Pneumonia type: due to unspecified organism Qualified Code(s): J18.9 - Pneumonia, unspecified organism PLAN: #Septic shock secondary to right upper lobe pneumonia * Patient remains on Levophed drip. On IV meropenem. WBC is down to 26 today. * Blood cultures showed no growth after 48 hours. Plan is to titrate Levophed to maintain MAP at 65 and above. * ID on board. Critical care also on board. * CT of the cervical spine didn't show any evidence of infection. * 08/30/2020?discontinue Levophed and vancomycin, continue with meropenem * 08/31/2020?continue with meropenem, has remained off of pressor support, leukocytosis down to 16 today #New onset A. fib with RVR * Continue with amiodarone drip as well as IV Lopressor * 08/31/2020?we will plan to transition amiodarone to p.o. once she passes the speech evaluation #STEPHAN and anion gap metabolic acidosis * Creatinine is down to 1.9, and bicarb is 29. * I dont anticipate that with improvement of bicarb and Cr, patient will likely not need dialysis * 08/30/2020?appreciate nephrology assistance, will continue to monitor * 08/31/2020?creatinine is down to 1.36 today we will continue to monitor #Acute hypoxic respiratory failure * Etiology is unclear. now on 2L of oxygen by nasal canula * Titrate oxygen to maintain saturation at or above 90%. * on IV meropenem * #Type 2 diabetes mellitus: Home meds on hold. Currently Accu-Cheks every 6 hourly. Insulin sliding scale. #Cervical spine stenosis: S/p recent neck surgery. CT done during this admission was negative. #Acute metabolic encephalopathy due to septic shock: Management as under septic shock * 08/31/2020?encephalopathy has appeared to resolve #Benign essential hypertension: BP meds on hold on account of septic shock. #DVT prophylaxis: heparin. Had a 30-minute discussion on advanced care planning with both her and her daughter. We specifically discussed disposition plans including possible hospice on discharge versus attempting therapy and depending on the results proceeding with hospice at a later date in the alf. Charges/Coding Visit Charges Inpatient E&M: 01460 Subs Hosp L2 Procedures Hospitalists Procedures: 56650 Advncd Care Plan 30 Min
[2020-08-31] MEDS: Vancomycin IV 500 MG/100 ML BAG 100 MG IV (14:05)
[2020-08-31] MEDS: 0.9% Saline Lock 10 ML Syringe IV (14:05)
[2020-08-31 18:11] LABS: Bedside Glucose 126 mg/dL (70-110)
[2020-08-31 23:36] LABS: Bedside Glucose 135 mg/dL (70-110)
[2020-09-01] VITALS (41 sets, daily range): BP systolic 76–160; BP diastolic 39–118; PULSE 77–143; RESP 18–26; TEMP 36.1–36.8; O2SAT 95–100
[2020-09-01] MEDS: Dextrose 5%/0.9% NaCl 1,000 ML 75 ML IV ×2 (03:23→16:49)
[2020-09-01] MEDS: Amiodarone 360 MG in Dextrose 5% Viaflo Bag 192.8 ML 16.7 MG CONT INF ×2 (03:34→16:47)
[2020-09-01] MEDS: Metoprolol Tartrate 5 MG/5 ML Vial IV ×2 (03:35→20:10)
[2020-09-01 06:19] LABS: Absolute Lymphocyte Count 0.86 X10^3/uL (0.83-4.51); Absolute Neutrophil Count 11.4 X10^3/uL (2.0-7.7); Basophil# 0.02 X10^3/uL; Basophil% 0.2 % (0-1); Eosinophil# 0.11 X10^3/uL; Eosinophils% 0.8 % (0-5); Hematocrit 29.8 % (37-47); Hemoglobin 9.6 g/dL (12.0-15.0); Lymphocyte # 0.86 X10^3/ul (0.83-4.51); Lymphocyte % 6.5 % (19-41); Mean Corp Hgb Conc 32.2 g/dL (32-36); Mean Corpuscular Hgb 26.6 pg (27.0-32.0); Mean Corpuscular Volume 82.5 fL (81-99); Mean Platelet Vol. 11.4 fl (6.2-12.0); Monocyte# 0.55 X10^3/uL; Monocyte% 4.2 % (0-10); NRBC Flagged by Analyzer 0.3 % (0-5); Neutrophil # 11.43 X10^3/uL (2.7-7.7); Neutrophil % 86.9 % (47-70); POSITIVE COUNT YES; Platelet Count 70 K/mm3 (150-450); RBC Distribution Width CV 19.9 % (11.6-14.6); RBC Distribution Width SD 55.4 fl (35.1-43.9); Red Blood Count 3.61 M/mm3 (4.2-5.4); White Blood Count 13.2 K/mm3 (4.4-11.0)
[2020-09-01 06:22] LABS: Differential Indicated SCAN CRITERIA MET
[2020-09-01 06:39] LABS: Differential Comment SCANNED; Platelet Estimate SLT DEC (ADEQ)
[2020-09-01 06:50] LABS: Bedside Glucose 135 mg/dL (70-110)
[2020-09-01 06:50] LABS: Vancomycin, Random Level 19.2 ug/mL (0.0-15.0)
[2020-09-01 07:02] LABS: Anion Gap 10 (5-15); BUN 45 mg/dL (7-18); BUN/Creat Ratio 41.3 RATIO (10-20); Calcium,Total 6.3 mg/dL (8.5-10.1); Chloride 114 mmol/L (98-107); Creatinine, Serum 1.09 mg/dL (0.55-1.02); EST Glomerular Filtration Rate 52 mL/min (>60); Est Glom Filt Rate - Afr Amer 63 mL/min (>60); Estimated Creatinine Clearance 38.89 ml/min; Glucose 130 mg/dL (74-106); Potassium 3.7 mmol/L (3.5-5.1); Sodium Level 145 mmol/L (136-145)
--- NOTE | 2020-09-01 08:53 | PCM.PN.INT ---
Assessment & Plan Assessment/Plan (1) Septic shock: PLAN: RECOMMENDATIONS: 1. Await swallow evaluation 2. Continue broad-spectrum empiric antimicrobials per infectious diseases recommendations. 3. Potentially transition to p.o. amiodarone and 10 a inhibitor if passes swallow eval 4. Anticipate total of 7 days of antibiotics 5. Discontinue Lovenox. Add SCDs IMPRESSIONS: 1. Septic shock Resolved. Concern for underlying pulmonary infectious process as etiology. Although the patient recently underwent cervical spine surgery, CT C-spine did not demonstrate any evidence of abscess or fluid collection. However, limited slices through the lungs on CT neck did reveal infiltrate. Coronavirus PCR was negative. Recommend continuing antimicrobials per ID recommendations. 2. Acute kidney injury/anion gap metabolic acidosis/hyperkalemia Improving. Likely prerenal in etiology with a component of ischemic ATN in the setting of #1. Nephrology is currently following. No indication for renal replacement therapy 3. Acute hypoxemic respiratory failure Resolved. Concern for underlying pulmonary infectious process based upon limited slices through lungs noted on CT neck. Recommend continuing supplemental oxygen to maintain saturations at or above 90%. The patient is to remain n.p.o. for now given depressed mentation and high risk for aspiration. 4. Encephalopathy Improving. Most likely metabolic in etiology. Plan to continue current supportive measures as noted above. Avoid sedating medications. Continue with delirium protocol 5. Cervical spinal stenosis status post recent surgery/rheumatoid arthritis/anemia/hypertension Complicates care, management, recovery and prognosis. Continue to hold antihypertensives/diuretics. 6. A. fib with RVR Unclear chronicity at this time. Patient is on amiodarone. Patient has not had an echocardiogram during this hospitalization. Patient's EF was preserved in 2016. Potentially transition to p.o. 10 a inhibitor and amiodarone if able to pass swallow evaluation. Patient will likely require a work-up as an outpatient. Patient unable to be placed on a 10 a inhibitor secondary to concern for swallow. Patient has developed thrombocytopenia, which may be a sign of HIT. We will hold on a work-up at this time and just transition to SCDs. If patient does pass a swallow evaluation, initiation of a 10 a inhibitor could be considered if patient remains aggressive. Subjective Subjective Patient did okay overnight. Patient remains relatively interactive, but continues to fail her swallow evaluation. Patient reportedly is to have a swallow study, but timing is not clear. Patient has no complaints this morning. No bleeding has been reported by nursing or other staff members Objective Data Objective Data Vital Signs: Vital Signs Temp Pulse Resp BP Pulse Ox 36.6 C 94 23 H 145/70 H 97 09/01/20 08:00 09/01/20 08:00 09/01/20 08:00 09/01/20 08:00 09/01/20 08:00 Oxygen Flow Rate (L/min) 2 Oxygen Delivery Method Room Air Weight: 87.7 kg Body Mass Index (BMI) 26.8 Intake & Output: Intake and Output for Last 24 Hours 08/30/20 08/31/20 09/01/20 23:59 23:59 23:59 Intake Total 2746.25 / 2746.25 2499.64 / 2516.34 474.35 / 474.35 Output Total 440 / 440 515 / 515 Balance 2306.25 / 2306.25 1984.64 / 2001.34 474.35 / 474.35 Lab / Micro Data Result Diagrams: 09/01/20 05:54 09/01/20 05:54 Labs: Laboratory Results - last 24 hr 08/31/20 08/31/20 08/31/20 11:27 18:01 23:26 WBC RBC Hgb Hct MCV MCH MCHC RDW Std Deviation RDW Coeff of Kavon Plt Count MPV Immature Gran % (Auto) Neut % (Auto) Lymph % (Auto) [place] % (Auto) Eos % (Auto) Baso % (Auto) Absolute Neuts (auto) Absolute Lymphs (auto) Nucleated RBC % Differential Comment Platelet Estimate Sodium Potassium Chloride Carbon Dioxide Anion Gap BUN Creatinine Estim Creat Clear Calc Est GFR (MDRD) Af Amer Est GFR (MDRD) Non-Af BUN/Creatinine Ratio Glucose Calcium Random Vancomycin POC Glucose 112 H 126 H 135 H 09/01/20 09/01/20 09/01/20 05:54 05:54 05:54 WBC 13.2 H RBC 3.61 L Hgb 9.6 L Hct 29.8 L MCV 82.5 MCH 26.6 L MCHC 32.2 RDW Std Deviation 55.4 H RDW Coeff of Kavon 19.9 H Plt Count 70 L MPV 11.4 Immature Gran % (Auto) 1.400 H Neut % (Auto) 86.9 H Lymph % (Auto) 6.5 L [place] % (Auto) 4.2 Eos % (Auto) 0.8 Baso % (Auto) 0.2 Absolute Neuts (auto) 11.4 H Absolute Lymphs (auto) 0.86 Nucleated RBC % 0.3 Differential Comment SCANNED Platelet Estimate SLT DEC Sodium 145 Potassium 3.7 Chloride 114 H Carbon Dioxide 21.0 Anion Gap 10 BUN 45 H Creatinine 1.09 H Estim Creat Clear Calc 38.89 Est GFR (MDRD) Af Amer 63 Est GFR (MDRD) Non-Af 52 L BUN/Creatinine Ratio 41.3 H Glucose 130 H Calcium 6.3 L* Random Vancomycin 19.2 H POC Glucose 09/01/20 06:44 WBC RBC Hgb Hct MCV MCH MCHC RDW Std Deviation RDW Coeff of Kavon Plt Count MPV Immature Gran % (Auto) Neut % (Auto) Lymph % (Auto) [place] % (Auto) Eos % (Auto) Baso % (Auto) Absolute Neuts (auto) Absolute Lymphs (auto) Nucleated RBC % Differential Comment Platelet Estimate Sodium Potassium Chloride Carbon Dioxide Anion Gap BUN Creatinine Estim Creat Clear Calc Est GFR (MDRD) Af Amer Est GFR (MDRD) Non-Af BUN/Creatinine Ratio Glucose Calcium Random Vancomycin POC Glucose 135 H Micro: Microbiology 08/30/20 11:50 Wound - Neck Gram Stain - Final 08/30/20 11:50 Wound - Neck Wound Culture - Final Coag Negative Staph 08/26/20 22:15 Blood Culture (Wb) - Right Wrist Blood Culture - Final No growth in 5 days. 08/26/20 16:30 Blood Culture (Wb) - Central Line Blood Culture - Final No growth in 5 days. 08/26/20 18:45 Urine Catheter - Nash Urine Culture - Final Culture exhibits no growth. Physical Exam Const alert General Appearance: appears older than stated age; Negative for in distress Orientation / Consciousness: disoriented Exam Limitations: altered mental status Nutritional Appearance: overweight HEENT normocephalic and head/scalp atraumatic Eyes EOMs intact bilaterally and conjunctivae normal Neck full ROM and No nuchal rigidity Resp normal respiratory effort Auscultation: diminished lung sounds; Negative for rales, rhonchi or wheezes Cardio S1 normal heart sound, S2 normal heart sound, no murmurs, no rub and no gallops Rhythm: abnormal rhythm irregularly irregular GI normal to inspection, nondistended, normoactive bowel sounds, soft to palpation, non-tender and non-distended Extremity normal to inspection General Extremity: edema bilateral (1+) lower extremity; Negative for clubbing or cyanosis Skin no rashes or lesions noted Psych Mood & Affect: flat affect Charges/Coding Visit Charges Inpatient E&M: 54827 Subs Hosp L2
[2020-09-01] MEDS: Menthol/Lanolin/Calamine/Znox 113 GM Tube 1 APPLIC TOPICAL ×2 (10:51→21:18)
--- NOTE | 2020-09-01 11:06 | PN.HOSP_ITS ---
Subjective Subjective More alert today, remembers her discussion yesterday about hospice. Has failed her swallow study, may need to proceed with a modified barium swallow. Objective Data Objective Data Vital Signs: Vital Signs Temp Pulse Resp BP Pulse Ox 97.8 F 94 23 H 145/70 H 97 09/01/20 08:00 09/01/20 08:00 09/01/20 08:00 09/01/20 08:00 09/01/20 08:00 Oxygen Flow Rate (L/min) 2 Oxygen Delivery Method Room Air Weight: 193 lb 5.526 oz Body Mass Index (BMI) 26.8 Intake & Output: Intake and Output for Last 24 Hours 08/31/20 09/01/20 09/02/20 03:59 03:59 03:59 Intake Total 2789.95 / 2789.95 2656.25 / 2663.49 647.79 / 647.79 Output Total 410 / 455 470 / 470 Balance 2379.95 / 2334.95 2186.25 / 2193.49 647.79 / 647.79 Lab / Micro Data Result Diagrams: 09/01/20 05:54 09/01/20 05:54 Labs: Laboratory Results - last 24 hr 08/31/20 08/31/20 08/31/20 11:27 18:01 23:26 WBC RBC Hgb Hct MCV MCH MCHC RDW Std Deviation RDW Coeff of Kavon Plt Count MPV Immature Gran % (Auto) Neut % (Auto) Lymph % (Auto) [place] % (Auto) Eos % (Auto) Baso % (Auto) Absolute Neuts (auto) Absolute Lymphs (auto) Nucleated RBC % Differential Comment Platelet Estimate Sodium Potassium Chloride Carbon Dioxide Anion Gap BUN Creatinine Estim Creat Clear Calc Est GFR (MDRD) Af Amer Est GFR (MDRD) Non-Af BUN/Creatinine Ratio Glucose Calcium Random Vancomycin POC Glucose 112 H 126 H 135 H 09/01/20 09/01/20 09/01/20 05:54 05:54 05:54 WBC 13.2 H RBC 3.61 L Hgb 9.6 L Hct 29.8 L MCV 82.5 MCH 26.6 L MCHC 32.2 RDW Std Deviation 55.4 H RDW Coeff of Kavon 19.9 H Plt Count 70 L MPV 11.4 Immature Gran % (Auto) 1.400 H Neut % (Auto) 86.9 H Lymph % (Auto) 6.5 L [place] % (Auto) 4.2 Eos % (Auto) 0.8 Baso % (Auto) 0.2 Absolute Neuts (auto) 11.4 H Absolute Lymphs (auto) 0.86 Nucleated RBC % 0.3 Differential Comment SCANNED Platelet Estimate SLT DEC Sodium 145 Potassium 3.7 Chloride 114 H Carbon Dioxide 21.0 Anion Gap 10 BUN 45 H Creatinine 1.09 H Estim Creat Clear Calc 38.89 Est GFR (MDRD) Af Amer 63 Est GFR (MDRD) Non-Af 52 L BUN/Creatinine Ratio 41.3 H Glucose 130 H Calcium 6.3 L* Random Vancomycin 19.2 H POC Glucose 09/01/20 06:44 WBC RBC Hgb Hct MCV MCH MCHC RDW Std Deviation RDW Coeff of Kavon Plt Count MPV Immature Gran % (Auto) Neut % (Auto) Lymph % (Auto) [place] % (Auto) Eos % (Auto) Baso % (Auto) Absolute Neuts (auto) Absolute Lymphs (auto) Nucleated RBC % Differential Comment Platelet Estimate Sodium Potassium Chloride Carbon Dioxide Anion Gap BUN Creatinine Estim Creat Clear Calc Est GFR (MDRD) Af Amer Est GFR (MDRD) Non-Af BUN/Creatinine Ratio Glucose Calcium Random Vancomycin POC Glucose 135 H Micro: Microbiology 08/30/20 11:50 Wound - Neck Gram Stain - Final 08/30/20 11:50 Wound - Neck Wound Culture - Final Coag Negative Staph 08/26/20 22:15 Blood Culture (Wb) - Right Wrist Blood Culture - Final No growth in 5 days. 08/26/20 16:30 Blood Culture (Wb) - Central Line Blood Culture - Final No growth in 5 days. 08/26/20 18:45 Urine Catheter - Nash Urine Culture - Final Culture exhibits no growth. Physical Exam Const alert and no apparent distress HEENT normocephalic Head and Scalp: normocephalic Mouth: dry mucous membranes Eyes PERRL, EOMs intact bilaterally and conjunctivae normal Neck supple and no JVD General: trachea midline Resp normal respiratory effort, normal air movement, no retractions and no use of accessory muscles Auscultation: diminished lung sounds; Negative for crackles, rales, rhonchi or wheezes Cardio S1 normal heart sound, S2 normal heart sound and no murmurs Rate: tachycardic Rhythm: abnormal rhythm GI soft to palpation, non-tender and non-distended; Negative for hepatosplenomegaly Extremity no clubbing, cyanosis or edema Skin no rashes or lesions noted Neuro moves all extremities, no focal motor deficits and no sensory deficits noted Psych Mood & Affect: flat affect Assessment & Plan Assessment/Plan (1) Lactic acidosis: (2) Metabolic acidosis: (3) Hyperkalemia: (4) Acute kidney injury: (5) Septic shock: (6) Pneumonia: QUALIFIERS: Pneumonia type: due to unspecified organism Laterality: right Lung location: upper lobe of lung Qualified Code(s): J18.9 - Pneumonia, unspecified organism PLAN: #Septic shock secondary to right upper lobe pneumonia * Patient remains on Levophed drip. On IV meropenem. WBC is down to 26 today. * Blood cultures showed no growth after 48 hours. Plan is to titrate Levophed to maintain MAP at 65 and above. * ID on board. Critical care also on board. * CT of the cervical spine didn't show any evidence of infection. * 08/30/2020?discontinue Levophed and vancomycin, continue with meropenem * 08/31/2020?continue with meropenem, has remained off of pressor support, leukocytosis down to 16 today * 09/01/2020?continue with meropenem, leukocytosis continues to improve. We will follow-up with the daughter better conversations yesterday about hospice and other advanced care planning options #New onset A. fib with RVR * Continue with amiodarone drip as well as IV Lopressor * 08/31/2020?we will plan to transition amiodarone to p.o. once she passes the speech evaluation * 09/01/2020?she failed speech evaluation yesterday may need to proceed with a modified barium swallow. #STEPHAN and anion gap metabolic acidosis * Creatinine is down to 1.9, and bicarb is 29. * I dont anticipate that with improvement of bicarb and Cr, patient will likely not need dialysis * 08/30/2020?appreciate nephrology assistance, will continue to monitor * 08/31/2020?creatinine is down to 1.36 today we will continue to monitor * 09/01/2020?creatinine is down to 1.09, will continue to monitor #Acute hypoxic respiratory failure * Etiology is unclear. now on 2L of oxygen by nasal canula * Titrate oxygen to maintain saturation at or above 90%. * on IV meropenem * #Type 2 diabetes mellitus: Home meds on hold. Currently Accu-Cheks every 6 hourly. Insulin sliding scale. #Cervical spine stenosis: S/p recent neck surgery. CT done during this admission was negative. #Acute metabolic encephalopathy due to septic shock: Management as under septic shock * 08/31/2020?encephalopathy has resolved #Benign essential hypertension: BP meds on hold on account of septic shock. #Hypocalcemia is corrected for hypoalbuminemia, will continue to monitor #DVT prophylaxis: heparin. Charges/Coding Visit Charges Inpatient E&M: 49645 Subs Hosp L2
--- NOTE | 2020-09-01 11:29 | PCM.PN.REN ---
Subjective Subjective no new events Objective Data Objective Data Vital Signs: Vital Signs Temp Pulse Resp BP Pulse Ox 97.8 F 105 H 23 H 160/93 H 97 09/01/20 08:00 09/01/20 11:01 09/01/20 08:00 09/01/20 11:00 09/01/20 08:00 Oxygen Flow Rate (L/min) 2 Oxygen Delivery Method Room Air Weight: 87.7 kg Body Mass Index (BMI) 26.8 Intake & Output: Intake and Output for Last 24 Hours 08/30/20 08/31/20 09/01/20 23:59 23:59 23:59 Intake Total 2746.25 / 2746.25 2499.64 / 2516.34 1208.20 / 1208.20 Output Total 440 / 440 515 / 515 Balance 2306.25 / 2306.25 1984.64 / 2001.34 1208.20 / 1208.20 Lab / Micro Data Result Diagrams: 09/01/20 05:54 09/01/20 05:54 Labs: Laboratory Results - last 24 hr 08/31/20 08/31/20 08/31/20 11:27 18:01 23:26 WBC RBC Hgb Hct MCV MCH MCHC RDW Std Deviation RDW Coeff of Kavon Plt Count MPV Immature Gran % (Auto) Neut % (Auto) Lymph % (Auto) [place] % (Auto) Eos % (Auto) Baso % (Auto) Absolute Neuts (auto) Absolute Lymphs (auto) Nucleated RBC % Differential Comment Platelet Estimate Sodium Potassium Chloride Carbon Dioxide Anion Gap BUN Creatinine Estim Creat Clear Calc Est GFR (MDRD) Af Amer Est GFR (MDRD) Non-Af BUN/Creatinine Ratio Glucose Calcium Random Vancomycin POC Glucose 112 H 126 H 135 H 09/01/20 09/01/20 09/01/20 05:54 05:54 05:54 WBC 13.2 H RBC 3.61 L Hgb 9.6 L Hct 29.8 L MCV 82.5 MCH 26.6 L MCHC 32.2 RDW Std Deviation 55.4 H RDW Coeff of Kavon 19.9 H Plt Count 70 L MPV 11.4 Immature Gran % (Auto) 1.400 H Neut % (Auto) 86.9 H Lymph % (Auto) 6.5 L [place] % (Auto) 4.2 Eos % (Auto) 0.8 Baso % (Auto) 0.2 Absolute Neuts (auto) 11.4 H Absolute Lymphs (auto) 0.86 Nucleated RBC % 0.3 Differential Comment SCANNED Platelet Estimate SLT DEC Sodium 145 Potassium 3.7 Chloride 114 H Carbon Dioxide 21.0 Anion Gap 10 BUN 45 H Creatinine 1.09 H Estim Creat Clear Calc 38.89 Est GFR (MDRD) Af Amer 63 Est GFR (MDRD) Non-Af 52 L BUN/Creatinine Ratio 41.3 H Glucose 130 H Calcium 6.3 L* Random Vancomycin 19.2 H POC Glucose 09/01/20 06:44 WBC RBC Hgb Hct MCV MCH MCHC RDW Std Deviation RDW Coeff of Kavon Plt Count MPV Immature Gran % (Auto) Neut % (Auto) Lymph % (Auto) [place] % (Auto) Eos % (Auto) Baso % (Auto) Absolute Neuts (auto) Absolute Lymphs (auto) Nucleated RBC % Differential Comment Platelet Estimate Sodium Potassium Chloride Carbon Dioxide Anion Gap BUN Creatinine Estim Creat Clear Calc Est GFR (MDRD) Af Amer Est GFR (MDRD) Non-Af BUN/Creatinine Ratio Glucose Calcium Random Vancomycin POC Glucose 135 H Micro: Microbiology 08/30/20 11:50 Wound - Neck Gram Stain - Final 08/30/20 11:50 Wound - Neck Wound Culture - Final Coag Negative Staph 08/26/20 22:15 Blood Culture (Wb) - Right Wrist Blood Culture - Final No growth in 5 days. 08/26/20 16:30 Blood Culture (Wb) - Central Line Blood Culture - Final No growth in 5 days. 08/26/20 18:45 Urine Catheter - Nash Urine Culture - Final Culture exhibits no growth. Physical Exam Const General Appearance: lethargic Exam Limitations: altered mental status Eyes conjunctivae normal Neck no lymphadenopathy Resp clear to auscultation bilaterally Cardio Rate: tachycardic Rhythm: regular rhythm Heart Sounds: S1 normal and S2 normal GI Auscultation: hypoactive bowel sounds Palpation: soft Percussion: normal to percussion Extremity General Extremity: other findings Other Details: no edema of LE Skin General Skin Exam: no breakdown Neuro Neuro Narrative: obtunded. Assessment & Plan Assessment/Plan (1) Acute kidney injury: (2) Hyperkalemia: (3) Metabolic acidosis: (4) Lactic acidosis: (5) Septic shock: PLAN: Normal baseline Cr STEPHAN is likely ischemia ATN cr is trending down electrolytes are ok no edema
[2020-09-01 13:25] LABS: Bedside Glucose 127 mg/dL (70-110)
--- NOTE | 2020-09-01 13:51 | PCM.PN.ID ---
Physical Exam Narrative Feeling ok, no fever, no abd pain, no dyspnea Const General Appearance: cooperative Resp clear to auscultation bilaterally Cardio regular rate and regular rhythm GI normal to inspection, nondistended, normoactive bowel sounds Skin no rashes or lesions noted ID ID: Route of nutrition/ use of supplements: [] Nutritional Intake: [] IV Site: [] Nash Catheter: [] Assessment & Plan Assessment/Plan (1) Septic shock: PLAN: septic shock with STEPHAN, hypoxic resp failure, encephalopathy - unclear source. Off pressors now. Had c-spine decompression/fusion in 03/2020 complicated by some persistent drainage/wound. CT here of neck did not show any abscess. UA neg here, cxr relatively clear. Had covid in February, neg here. Will stop abx today. Overall much improved. Will follow as needed (2) Acute kidney injury: (3) Lactic acidosis: (4) Encephalopathy acute:
--- NOTE | 2020-09-01 17:00 | NURSING ---
Pt refusing PO intake
[2020-09-01 17:01] LABS: Bedside Glucose 143 mg/dL (70-110)
[2020-09-01] MEDS: 0.9% Saline Lock 10 ML Syringe IV (20:12)
[2020-09-01 23:56] LABS: Bedside Glucose 213 mg/dL (70-110)
[2020-09-02] VITALS (22 sets, daily range): BP systolic 60–124; BP diastolic 40–84; PULSE 67–103; RESP 16–28; TEMP 35.4–36.7; O2SAT 86–100
[2020-09-02] MEDS: Albuterol 2.5 MG/3 ML VIAL.NEB. INHALATION (01:59)
[2020-09-02] MEDS: Dextrose 5%/0.9% NaCl 1,000 ML 75 ML IV (05:32)
[2020-09-02] MEDS: Insulin Lispro 100 UNIT/ML INSULN.PEN SC ×2 (05:33→11:46)
[2020-09-02 05:36] LABS: Bedside Glucose 306 mg/dL (70-110)
--- NOTE | 2020-09-02 05:55 | RAD_ITS ---
HISTORY: Hypoxia EXAMINATION/TECHNIQUE: XR Chest 1 View COMPARISON: AP chest x-ray from 08/27/20 FINDINGS: LINES/DEVICES: Right subclavian central line tip at lower SVC. LUNGS: Worsening airspace disease scattered throughout right lung. Worsening left basilar pulmonary opacities. Moderate to large right pleural effusion. No pneumothorax detected. MEDIASTINUM AND CARDIOVASCULAR STRUCTURES: Heart size within normal limits for imaging technique. Central airways and mediastinal contour are unremarkable. BONES AND SOFT TISSUES: Cervical spinal fusion hardware. Skeletal degenerative changes. RAD/Chest 1 View (Portable) IMPRESSION: Worsening right greater than left bilateral pulmonary infiltrate with moderate to large right pleural effusion. at 0745 Reported and signed by: Hans Galarza MD Electronically Signed: Hans Galarza MD at 7:44 EDT Tel , Service support ,
[2020-09-02 06:16] LABS: Absolute Lymphocyte Count 0.74 X10^3/uL (0.83-4.51); Absolute Neutrophil Count 9.1 X10^3/uL (2.0-7.7); Basophil# 0.03 X10^3/uL; Basophil% 0.3 % (0-1); Eosinophil# 0.01 X10^3/uL; Eosinophils% 0.1 % (0-5); Hematocrit 30.8 % (37-47); Hemoglobin 9.4 g/dL (12.0-15.0); Lymphocyte # 0.74 X10^3/ul (0.83-4.51); Lymphocyte % 6.8 % (19-41); Mean Corp Hgb Conc 30.5 g/dL (32-36); Mean Corpuscular Hgb 26.7 pg (27.0-32.0); Mean Corpuscular Volume 87.5 fL (81-99); Mean Platelet Vol. 10.4 fl (6.2-12.0); Monocyte# 0.44 X10^3/uL; Monocyte% 4.1 % (0-10); NRBC Flagged by Analyzer 1.2 % (0-5); Neutrophil # 9.08 X10^3/uL (2.7-7.7); Neutrophil % 83.9 % (47-70); POSITIVE COUNT YES; POSITIVE MORPHOLOGY YES; Platelet Count 78 K/mm3 (150-450); RBC Distribution Width CV 20.5 % (11.6-14.6); RBC Distribution Width SD 61.4 fl (35.1-43.9); Red Blood Count 3.52 M/mm3 (4.2-5.4); White Blood Count 10.8 K/mm3 (4.4-11.0)
[2020-09-02 06:27] LABS: Differential Indicated SCAN CRITERIA MET
[2020-09-02 06:29] LABS: Differential Comment SCANNED
[2020-09-02 06:30] LABS: Anisocytosis RARE; Microcytosis RARE; Platelet Estimate SLT DEC (ADEQ)
[2020-09-02 06:41] LABS: Anion Gap 10 (5-15); BUN 42 mg/dL (7-18); BUN/Creat Ratio 31.1 RATIO (10-20); Calcium,Total 6.4 mg/dL (8.5-10.1); Chloride 112 mmol/L (98-107); Creatinine, Serum 1.35 mg/dL (0.55-1.02); EST Glomerular Filtration Rate 40 mL/min (>60); Est Glom Filt Rate - Afr Amer 49 mL/min (>60); Glucose 289 mg/dL (74-106); Magnesium 1.1 mg/dL (1.6-2.6); Phosphorus 4.8 mg/dL (2.5-4.9); Potassium 3.9 mmol/L (3.5-5.1); Sodium Level 144 mmol/L (136-145)
--- NOTE | 2020-09-02 07:48 | PN.CC_ITS ---
Assessment & Plan Assessment/Plan (1) Septic shock: PLAN: RECOMMENDATIONS: 1. Clarify goals of therapy 2. Consider diuretic therapy if blood pressure improves following cessation of Cardizem. 3. Obtain ABG if patient is to be treated aggressively 4. Anticipate total of 7 days of antibiotics 5. Discontinue Lovenox. Add SCDs 6. Discontinue IV fluids. Supplement magnesium. IMPRESSIONS: 1. Septic shock Resolved. Concern for underlying pulmonary infectious process as etiology. Although the patient recently underwent cervical spine surgery, CT C- spine did not demonstrate any evidence of abscess or fluid collection. However, limited slices through the lungs on CT neck did reveal infiltrate. Coronavirus PCR was negative. Recommend continuing antimicrobials per ID recommendations. Clinical suspicion for hypotension overnight secondary to Cardizem. This has been held. 2. Acute kidney injury/anion gap metabolic acidosis/hyperkalemia Improving. Likely prerenal in etiology with a component of ischemic ATN in the setting of #1. Nephrology is currently following. No indication for renal replacement therapy 3. Acute hypoxemic respiratory failure Significantly worse. Concern for underlying pulmonary infectious process based upon limited slices through lungs noted on CT neck. Recommend continuing supplemental oxygen to maintain saturations at or above 90%. The patient is to remain n.p.o. for now given depressed mentation and high risk for aspiration. Chest x-ray shows worsening pleural effusions, right greater than left. Patient would likely benefit from diuretic therapy if blood pressures improved. 4. Encephalopathy Significantly worsened. Most likely metabolic in etiology. Plan to continue current supportive measures as noted above. Avoid sedating medications. Continue with delirium protocol 5. Cervical spinal stenosis status post recent surgery/rheumatoid arthritis/anemia/hypertension Complicates care, management, recovery and prognosis. Continue to hold antihypertensives/diuretics. 6. A. fib with RVR Unclear chronicity at this time. Patient is on amiodarone. Patient has not had an echocardiogram during this hospitalization. Patient's EF was preserved in 2016. Potentially transition to p.o. 10 a inhibitor and amiodarone if able to pass swallow evaluation. Patient will likely require a work-up as an outpatient. If patient does pass a swallow evaluation, initiation of a 10 a inhibitor could be considered if patient remains aggressive. Subjective Subjective Patient with acute decompensation at approximately 1 AM. Patient currently on a 50% and less responsive compared to yesterday. Patient did have some hypotension overnight associated with hypoxia and had Cardizem discontinued. Patient is not able to provide much additional information at this time. Objective Data Objective Data Vital Signs: Vital Signs Temp Pulse Resp BP Pulse Ox 36.3 C L 69 17 96/41 L 92 09/02/20 06:00 09/02/20 06:00 09/02/20 06:00 09/02/20 06:00 09/02/20 07:02 Oxygen Flow Rate (L/min) 15 Oxygen Delivery Method Venturi Mask Weight: 88.5 kg Body Mass Index (BMI) 26.8 Intake & Output: Intake and Output for Last 24 Hours 08/31/20 09/01/20 09/02/20 23:59 23:59 23:59 Intake Total 2499.64 / 2516.34 2442.80 / 2470.00 652.73 / 652.73 Output Total 515 / 515 300 / 300 75 / 75 Balance 1984.64 / 2000.34 2142.80 / 2170.00 577.73 / 577.73 Lab / Micro Data Result Diagrams: 09/02/20 06:05 09/02/20 06:05 Labs: Laboratory Results - last 24 hr 09/01/20 09/01/20 09/01/20 13:15 16:46 23:46 WBC RBC Hgb Hct MCV MCH MCHC RDW Std Deviation RDW Coeff of Kavon Plt Count MPV Immature Gran % (Auto) Neut % (Auto) Lymph % (Auto) [place] % (Auto) Eos % (Auto) Baso % (Auto) Absolute Neuts (auto) Absolute Lymphs (auto) Nucleated RBC % Differential Comment Platelet Estimate Anisocytosis Microcytosis Sodium Potassium Chloride Carbon Dioxide Anion Gap BUN Creatinine Estim Creat Clear Calc Est GFR (MDRD) Af Amer Est GFR (MDRD) Non-Af BUN/Creatinine Ratio Glucose Calcium Phosphorus Magnesium POC Glucose 127 H 143 H 213 H 09/02/20 09/02/20 09/02/20 05:29 06:05 06:05 WBC 10.8 RBC 3.52 L Hgb 9.4 L Hct 30.8 L MCV 87.5 D MCH 26.7 L MCHC 30.5 L D RDW Std Deviation 61.4 H RDW Coeff of Kavon 20.5 H Plt Count 78 L MPV 10.4 Immature Gran % (Auto) 4.800 H Neut % (Auto) 83.9 H Lymph % (Auto) 6.8 L [place] % (Auto) 4.1 Eos % (Auto) 0.1 Baso % (Auto) 0.3 Absolute Neuts (auto) 9.1 H Absolute Lymphs (auto) 0.74 L Nucleated RBC % 1.2 Differential Comment SCANNED Platelet Estimate SLT DEC Anisocytosis RARE Microcytosis RARE Sodium 144 Potassium 3.9 Chloride 112 H Carbon Dioxide 22.0 Anion Gap 10 BUN 42 H Creatinine 1.35 H Estim Creat Clear Calc 31.40 Est GFR (MDRD) Af Amer 49 L Est GFR (MDRD) Non-Af 40 L BUN/Creatinine Ratio 31.1 H Glucose 289 H Calcium 6.4 L* Phosphorus 4.8 Magnesium 1.1 L POC Glucose 306 H Micro: Microbiology 08/30/20 11:50 Wound - Neck Gram Stain - Final 08/30/20 11:50 Wound - Neck Wound Culture - Final Coag Negative Staph 08/26/20 22:15 Blood Culture (Wb) - Right Wrist Blood Culture - Final No growth in 5 days. 08/26/20 16:30 Blood Culture (Wb) - Central Line Blood Culture - Final No growth in 5 days. 08/26/20 18:45 Urine Catheter - Nash Urine Culture - Final Culture exhibits no growth. Radiography Diagnostic Testing: Radiology Impression Chest X-Ray 09/02/20 05:55 IMPRESSION: Worsening right greater than left bilateral pulmonary infiltrate with moderate to large right pleural effusion. at 0745 Reported and signed by: Hans Galarza MD Electronically Signed: Hans Galarza MD at 7:44 EDT Tel , Service support , Physical Exam Const General Appearance: lethargic and appears older than stated age; Negative for in distress Orientation / Consciousness: disoriented Exam Limitations: altered mental status Nutritional Appearance: overweight HEENT normocephalic and head/scalp atraumatic Eyes EOMs intact bilaterally and conjunctivae normal Neck full ROM and No nuchal rigidity Neck Narrative: Posterior neck wound appears intact without any purulence Resp Auscultation: rales right (Greater than left) and diminished lung sounds; Negative for rhonchi or wheezes Cardio S1 normal heart sound, S2 normal heart sound, no murmurs, no rub and no gallops Rhythm: abnormal rhythm irregularly irregular GI normal to inspection, nondistended, normoactive bowel sounds, soft to palpation, non-tender and non-distended Extremity normal to inspection General Extremity: edema bilateral (1+) lower extremity; Negative for clubbing or cyanosis Skin no rashes or lesions noted Psych Mood & Affect: flat affect Charges/Coding Visit Charges Inpatient E&M: 86093 Subs Hosp L3
--- NOTE | 2020-09-02 08:22 | ECHOD_ITS ---
Reason For Study: ATRIAL FIB-FLUTTER Procedure This was a 2D Doppler, Color Flow transthoracic echocardiogram. The study was technically difficult. Definity deferred due to elevated PAP. Exam performed portable in patient room. Left Ventricle Mild concentric left ventricular hypertrophy. Mildly dilated left ventricle. The estimated ejection fraction is EF 40-45% %. Right Ventricle Normal right ventricle. Atria The left atrium is moderately enlarged. The right atrium is mildly enlarged. Mitral Valve Moderate mitral annular calcification. Mild-Moderate (1-2+) mitral valve insufficiency. Tricuspid Valve Normal tricuspid valve. Moderately severe (3+) tricuspid valve insufficiency. Aortic Valve Trisinus/trileaflet aortic valve. Mild aortic stenosis. Mild-Moderate (1-2+) aortic valve insufficiency. Pulmonic Valve The pulmonic valve is not well visualized. Great Vessels Normal aortic root. Pericardium/Pleural No pericardial effusion. MMode/2D Measurements & Calculations LVIDd: 4.9 cm IVSd: 1.1 cm LVOT diam: 2.0 cm LVIDs: 3.7 cm LVPWd: 1.1 cm LVOT area: 3.0 cm2 RVDd: 3.6 cm FS: 25.6 % Ao root diam: 3.2 cm LAV(MOD-bp): 74.3 ml LVAd ap4: 24.9 cm2 LAV(MOD-bp) Indexed: 38.0 ml/m2 LVLd ap4: 6.8 cm LAV(MOD-sp2): 93.7 ml EDV(MOD-sp4): 76.2 ml LAV(MOD-sp4): 57.3 ml EDV(sp4-el): 77.4 ml LVAs ap4: 17.5 cm2 LVLs ap4: 6.2 cm ESV(MOD-sp4): 41.0 ml ESV(sp4-el): 42.4 ml EF(MOD-sp4): 46.2 % EF(sp4-el): 45.2 % SV(MOD-sp4): 35.2 ml SV(sp4-el): 35.0 ml LA A4 area: 20.9 cm2 LA dimension(2D): 4.9 cm RA A4 area: 14.5 cm2 Doppler Measurements & Calculations MV E max john: 151.8 cm/sec Ao V2 max: 189.6 cm/sec AI max john: 382.1 cm/sec Ao max P.6 mmHg AI max P.4 mmHg Ao V2 mean: 114.6 cm/sec Ao mean P.4 mmHg AI dec slope: 377.8 cm/sec2 Ao V2 VTI: 33.4 cm AI P1/2t: 296.2 msec BRANDIN(I,D): 1.9 cm2 BRANDIN(V,D): 1.5 cm2 LV V1 max: 92.8 cm/sec SV(LVOT): 62.7 ml PA V2 max: 74.2 cm/sec LV V1 max P.4 mmHg LV V1 mean P.7 mmHg LV V1 mean: 59.4 cm/sec LV V1 VTI: 20.8 cm TR max john: 443.1 cm/sec TR max P.5 mmHg ECHO/Echo Complete Interpretation Summary The estimated ejection fraction is EF 40-45% %. Moderate LV systolic Dysfunction Mild Midl-moderate AR Mild-moderate MR Moderate- severe TR worsening LV systolic functon in comparasion to prior echo in05/2015 Ordering Physician: Cheko Theodore Referring Physician: TIKA GOLD Performed By: Lilly Mcnulty RDCS
[2020-09-02] MEDS: Magnesium Sulfate 4gm/100mL 4 GM/100 ML IV.SOLN. IV (09:03)
[2020-09-02] MEDS: Menthol/Lanolin/Calamine/Znox 113 GM Tube 1 APPLIC TOPICAL ×2 (09:03→22:35)
--- NOTE | 2020-09-02 09:28 | US_ITS ---
PROCEDURE: ULTRASOUND GUIDED THORACENTESIS. DATE: 09/02/2020.. INDICATION: Female, 75 years old. Left pleural effusion PHYSICIAN: Maciel Galindo M.D. PROCEDURE: The risks, benefits, and alternatives to the procedure were explained to the patient. The specific risks of bleeding, infection, and pneumothorax requiring chest tube insertion were discussed and accepted. Written informed consent was obtained. Ultrasonographic evaluation of the left lower pleural space was carried out. An adequate pocket was identified. The patient was placed in the sitting, upright position. The overlying skin was prepped and draped in sterile fashion. 1% lidocaine was administered subcutaneously for local anesthesia. Under ultrasound guidance, a 5 [place] thoracentesis needle/catheter system was advanced into the left posterior lower pleural fluid collection. Approximately 300 mL of bere-colored fluid was drained. The catheter was removed, and a sterile dressing was applied. A specimen was collected and sent to the laboratory for analysis, as requested by the referring clinician. The patient tolerated the procedure well. A chest x-ray was ordered. US/Thoracentesis W US IMPRESSION: Ultrasound-guided left thoracentesis. Electronically Signed: Maciel Galindo MD at 14:54 EDT , Service support ,
[2020-09-02 10:05] LABS: International Normalized Ratio 1.3; Prothrombin Time (Protime)PT. 15.3 SECONDS (11.7-14.9)
[2020-09-02 10:07] LABS: Partial Thromboplast Time 39.9 Seconds (24.1-36.2)
--- NOTE | 2020-09-02 11:45 | CASEMGMT ---
[facility] faxed updates to Jesse at [facility]. Elysia Shabazz CHECKOUT OPERATOR RUSTAM
[2020-09-02 11:51] LABS: Bedside Glucose 170 mg/dL (70-110)
--- NOTE | 2020-09-02 12:04 | PN.HOSP_ITS ---
Subjective Subjective Feels a bit more short of breath, overnight had to be placed on a 50% Ventimask. Chest x-ray this morning demonstrates a large right pleural effusion. Objective Data Objective Data Vital Signs: Vital Signs Temp Pulse Resp BP Pulse Ox 95.7 F L 79 18 108/84 H 99 09/02/20 08:59 09/02/20 08:59 09/02/20 08:59 09/02/20 08:59 09/02/20 08:59 Oxygen Flow Rate (L/min) 15 Oxygen Delivery Method Room Air Weight: 195 lb 1.745 oz Body Mass Index (BMI) 26.8 Intake & Output: Intake and Output for Last 24 Hours 09/01/20 09/02/20 09/03/20 03:59 03:59 03:59 Intake Total 2656.25 / 2663.49 2162.72 / 2162.72 642.50 / 642.50 Output Total 470 / 470 300 / 300 75 / 75 Balance 2186.25 / 2193.49 1862.72 / 1862.72 567.50 / 567.50 Lab / Micro Data Result Diagrams: 09/02/20 06:05 09/02/20 06:05 Labs: Laboratory Results - last 24 hr 09/01/20 09/01/20 09/01/20 13:15 16:46 23:46 WBC RBC Hgb Hct MCV MCH MCHC RDW Std Deviation RDW Coeff of Kavon Plt Count MPV Immature Gran % (Auto) Neut % (Auto) Lymph % (Auto) [place] % (Auto) Eos % (Auto) Baso % (Auto) Absolute Neuts (auto) Absolute Lymphs (auto) Nucleated RBC % Differential Comment Platelet Estimate Anisocytosis Microcytosis PT INR APTT Sodium Potassium Chloride Carbon Dioxide Anion Gap BUN Creatinine Estim Creat Clear Calc Est GFR (MDRD) Af Amer Est GFR (MDRD) Non-Af BUN/Creatinine Ratio Glucose Calcium Phosphorus Magnesium POC Glucose 127 H 143 H 213 H 09/02/20 09/02/20 09/02/20 05:29 06:05 06:05 WBC 10.8 RBC 3.52 L Hgb 9.4 L Hct 30.8 L MCV 87.5 D MCH 26.7 L MCHC 30.5 L D RDW Std Deviation 61.4 H RDW Coeff of Kavon 20.5 H Plt Count 78 L MPV 10.4 Immature Gran % (Auto) 4.800 H Neut % (Auto) 83.9 H Lymph % (Auto) 6.8 L [place] % (Auto) 4.1 Eos % (Auto) 0.1 Baso % (Auto) 0.3 Absolute Neuts (auto) 9.1 H Absolute Lymphs (auto) 0.74 L Nucleated RBC % 1.2 Differential Comment SCANNED Platelet Estimate SLT DEC Anisocytosis RARE Microcytosis RARE PT INR APTT Sodium 144 Potassium 3.9 Chloride 112 H Carbon Dioxide 22.0 Anion Gap 10 BUN 42 H Creatinine 1.35 H Estim Creat Clear Calc 31.40 Est GFR (MDRD) Af Amer 49 L Est GFR (MDRD) Non-Af 40 L BUN/Creatinine Ratio 31.1 H Glucose 289 H Calcium 6.4 L* Phosphorus 4.8 Magnesium 1.1 L POC Glucose 306 H 09/02/20 09/02/20 09:50 11:43 WBC RBC Hgb Hct MCV MCH MCHC RDW Std Deviation RDW Coeff of Kavon Plt Count MPV Immature Gran % (Auto) Neut % (Auto) Lymph % (Auto) [place] % (Auto) Eos % (Auto) Baso % (Auto) Absolute Neuts (auto) Absolute Lymphs (auto) Nucleated RBC % Differential Comment Platelet Estimate Anisocytosis Microcytosis PT 15.3 H INR 1.3 APTT 39.9 H Sodium Potassium Chloride Carbon Dioxide Anion Gap BUN Creatinine Estim Creat Clear Calc Est GFR (MDRD) Af Amer Est GFR (MDRD) Non-Af BUN/Creatinine Ratio Glucose Calcium Phosphorus Magnesium POC Glucose 170 H Micro: Microbiology 08/30/20 11:50 Wound - Neck Gram Stain - Final 08/30/20 11:50 Wound - Neck Wound Culture - Final Coag Negative Staph 08/26/20 22:15 Blood Culture (Wb) - Right Wrist Blood Culture - Final No growth in 5 days. 08/26/20 16:30 Blood Culture (Wb) - Central Line Blood Culture - Final No growth in 5 days. 08/26/20 18:45 Urine Catheter - Nash Urine Culture - Final Culture exhibits no growth. Radiography Diagnostic Testing: Radiology Impression Chest X-Ray 09/02/20 05:55 IMPRESSION: Worsening right greater than left bilateral pulmonary infiltrate with moderate to large right pleural effusion. at 0745 Reported and signed by: Hans Galarza MD Electronically Signed: Hans Galarza MD at 7:44 EDT Tel , Service support , Physical Exam Const alert and no apparent distress General Appearance: well kempt and well developed Exam Limitations: no limitations and altered mental status HEENT normocephalic Eyes PERRL, EOMs intact bilaterally and conjunctivae normal Neck supple and no JVD General: trachea midline Resp normal respiratory effort, normal air movement, no retractions and no use of accessory muscles Auscultation: rales right throughout and diminished lung sounds; Negative for crackles, rhonchi or wheezes Cardio regular rate, S1 normal heart sound, S2 normal heart sound and no murmurs Rhythm: abnormal rhythm GI soft to palpation, non-tender and non-distended; Negative for hepatosplenomegaly Extremity no clubbing, cyanosis or edema Skin no rashes or lesions noted Neuro moves all extremities, no focal motor deficits and no sensory deficits noted Psych Mood & Affect: flat affect Assessment & Plan Assessment/Plan (1) Lactic acidosis: (2) Metabolic acidosis: (3) Hyperkalemia: (4) Acute kidney injury: (5) Septic shock: (6) Pneumonia: QUALIFIERS: Pneumonia type: due to unspecified organism Laterality: right Lung location: upper lobe of lung Qualified Code(s): J18.9 - Pneumonia, unspecified organism (7) Pleural effusion: PLAN: #Septic shock secondary to right upper lobe pneumonia * Patient remains on Levophed drip. On IV meropenem. WBC is down to 26 today. * Blood cultures showed no growth after 48 hours. Plan is to titrate Levophed to maintain MAP at 65 and above. * ID on board. Critical care also on board. * CT of the cervical spine didn't show any evidence of infection. However it did demonstrate a possible right upper lobe infiltrate * 08/30/2020?discontinue Levophed and vancomycin, continue with meropenem * 08/31/2020?continue with meropenem, has remained off of pressor support, leukocytosis down to 16 today * 09/01/2020?continue with meropenem, leukocytosis continues to improve. We will follow-up with the daughter better conversations yesterday about hospice and other advanced care planning options * 09/02/2020?leukocytosis is resolved, she has completed antibiotics #New onset A. fib with RVR * Continue with amiodarone drip as well as IV Lopressor * 08/31/2020?we will plan to transition amiodarone to p.o. once she passes the speech evaluation * 09/01/2020?she failed speech evaluation yesterday may need to proceed with a mo dified barium swallow. * 09/02/2020?she did pass a swallow study however yesterday she remained tachyc ardic and had Cardizem added which did seem to drop her heart rate but it did also drop her blood pressure so she is now off both amiodarone and Cardizem and maintaining heart rate below 90 #STEPHAN and anion gap metabolic acidosis * Creatinine is down to 1.9, and bicarb is 29. * I dont anticipate that with improvement of bicarb and Cr, patient will likely not need dialysis * 08/30/2020?appreciate nephrology assistance, will continue to monitor * 08/31/2020?creatinine is down to 1.36 today we will continue to monitor * 09/01/2020?creatinine is down to 1.09, will continue to monitor * 09/02/2020?creatinine is back up to 1.3 #Acute hypoxic respiratory failure * Etiology is secondary to pneumonia, and her A. fib * Titrate oxygen to maintain saturation at or above 90%. * on IV meropenem * 09/02/2020?overnight had to be placed on 50% oxygen, chest x-ray with right pleural effusion, will plan for ultrasound-guided thoracentesis with fluid studies #Type 2 diabetes mellitus: Home meds on hold. Currently Accu-Cheks every 6 hourly. Insulin sliding scale. #Cervical spine stenosis: S/p recent neck surgery. CT done during this admission was negative. #Acute metabolic encephalopathy due to septic shock: Management as under septic shock * 08/31/2020?encephalopathy has resolved #Benign essential hypertension: BP meds on hold on account of septic shock. #Hypocalcemia is corrected for hypoalbuminemia, will continue to monitor #DVT prophylaxis: heparin. Charges/Coding Visit Charges Inpatient E&M: 81438 Subs Hosp L2
--- NOTE | 2020-09-02 13:53 | FLU_PTH ---
PATIENT: TIA WAGNER LOC: [facility] U#:[id number] AGE/SX: 75/F ROOM: [facility] RE08/26/[address]: Dr. Cheko Theodore MD : 1945 BED: 1 DIS: 09/03/2020 SPEC #: [id number] RECD: 09/02/20 14:23 STATUS: RUDY REYesy #: [id number] ALLEN: 09/02/20 13:[address]: Cheko Theodore DEPT: CYTOLOGY RECD BY: Caitlin Acevedo ENTERED: 09/03/20 07:47 SP TYPE: Fluid OTHR DR: MD Dr. Watson Thomas, MD Dr. Hans Neal Dr., MD Alicia Tenorio Dr., BOOKS SALESPERSON-C Mayra Goodman BOOKS SALESPERSON-C Tissues: Pleural fluid, NOS Procedures: Special Stain Group II Surgery Specimen Level IV Cytospin Fluid HEADER OPERATION: Left thoracentesis PRE-OP DIAGNOSIS: Pleural effusion TISSUE SUBMITTED: Thoracentesis fluid for cytology DIAGNOSIS CYTOLOGY Thoracentesis fluid for cytology (cytospin and cell block): Negative for malignant cells. See comment. SJ:steve 09/06/2020 COMMENT A few reactive mesothelial cells are noted. Correlation with clinical findings and appropriate follow up are necessary. Case has been reviewed in consultation with Dr. Antoine who concurs with the above diagnosis. IDC:AM CYTOLOGY STUDY Slides are reviewed. CYTOLOGY GROSS Received is 90 ml of light yellow cloudy fluid labeled with the patient's name and and designated per the requisition as thoracentesis. Submitted for cytology preparation including cell block. / steve 09/03/2020 TC:5 CPT: 52903, 94652
--- NOTE | 2020-09-02 14:02 | RAD_ITS ---
STUDY: X-RAY CHEST REASON FOR EXAM: Female, 75 years old. Post thora TECHNIQUE: AP inspiration and expiration views. COMPARISON: Comparison is made with prior study done earlier today. FINDINGS: A right-sided portacatheter is seen with the tip at the junction of the superior vena cava and right atrium. The patient is status post left thoracentesis. There is no evidence of pneumothorax. Stable pleural parenchymal changes at the right lung base. RAD/Chest Insp/Exp 2 View IMPRESSION: Status post left thoracentesis. There is no evidence of pneumothorax. Electronically Signed: Maciel Galindo MD at 14:14 EDT , Service support ,
[2020-09-02 14:35] LABS: Body Fluid Mononuclear WBC # 0.127 10^3/uL; Body Fluid Mononuclear WBC % 77.9 %; Body Fluid Polynuclear WBC # 0.036 10^3/uL; Body Fluid Polynuclear WBC % 22.1 %; White Blood Count/Body Fluid 0.163 10^3/uL
[2020-09-02 14:38] LABS: Appearance/Body Fluid CLEAR; Auto B Fluid Analyzer BKGD Ct COUNTS W/IN LIMITS (W/IN LIMITS); Color/Body Fluid LT YEL; Source- Body Fluid THORACENTESIS
[2020-09-02 14:43] LABS: Red Cell Count/Body Fluid 75 /mm3
[2020-09-02 14:45] LABS: Body Fluid QC Type(s) BF2Q
[2020-09-02 15:32] LABS: Glucose, Body Fluid 207 mg/dL (40-70); LDH,Body Fluid 54 Units/l (Not Establ.); Protein, Body Fluid 0.4 g/dL (Not Establ.)
[2020-09-02 16:04] LABS: Neutrophil (Segs) 18 %
[2020-09-02 16:05] LABS: Lymphocytes 7 %; Monocytes 75 %
[2020-09-02 17:26] LABS: Bedside Glucose 109 mg/dL (70-110)
[2020-09-02] MEDS: Dextrose 50%-Water 25 GM/50 ML DISP.SYRIN IV (22:18)
[2020-09-02] MEDS: 0.9% Saline Lock 10 ML Syringe IV (22:24)
[2020-09-02 22:46] LABS: Bedside Glucose 106 mg/dL (70-110)
[2020-09-03] VITALS (7 sets, daily range): BP systolic 111–124; BP diastolic 39–61; PULSE 91–115; RESP 15–18; TEMP 36.2–36.6; O2SAT 94
[2020-09-03 00:21] LABS: Bedside Glucose 93 mg/dL (70-110)
[2020-09-03 05:31] LABS: Bedside Glucose 76 mg/dL (70-110)
[2020-09-03 06:42] LABS: Anion Gap 6 (5-15); BUN 44 mg/dL (7-18); BUN/Creat Ratio 37.3 RATIO (10-20); Chloride 114 mmol/L (98-107); Creatinine, Serum 1.18 mg/dL (0.55-1.02); EST Glomerular Filtration Rate 47 mL/min (>60); Est Glom Filt Rate - Afr Amer 57 mL/min (>60); Estimated Creatinine Clearance 35.93 ml/min; Glucose 98 mg/dL (74-106); Magnesium 1.6 mg/dL (1.6-2.6); Potassium 3.5 mmol/L (3.5-5.1); Sodium Level 144 mmol/L (136-145)
--- NOTE | 2020-09-03 08:31 | PN.CC_ITS ---
Assessment & Plan Assessment/Plan (1) Septic shock: PLAN: RECOMMENDATIONS: 1. Clarify goals of therapy 2. Consider initiation of low-dose Bumex 3. Obtain ABG if patient is to be treated aggressively 4. Anticipate total of 7 days of antibiotics 5. Discontinue Lovenox. Continue SCDs IMPRESSIONS: 1. Septic shock Resolved. Concern for underlying pulmonary infectious process as etiology. Although the patient recently underwent cervical spine surgery, CT C- spine did not demonstrate any evidence of abscess or fluid collection. However, limited slices through the lungs on CT neck did reveal infiltrate. Coronavirus PCR was negative. Recommend continuing antimicrobials per ID recommendations. Clinical suspicion for hypotension overnight secondary to Cardizem. This has been held. 2. Acute kidney injury/anion gap metabolic acidosis/hyperkalemia Improving. Likely prerenal in etiology with a component of ischemic ATN in the setting of #1. Nephrology is currently following. No indication for renal replacement therapy 3. Acute hypoxemic respiratory failure secondary to transudative pleural effusion Improved from yesterday following thoracentesis. Concern for underlying pulmonary infectious process based upon limited slices through lungs noted on CT neck. Recommend continuing supplemental oxygen to maintain saturations at or above 90%. Pleural studies are significant for a transudate process. Likely not necessary to repeat chest imaging, but patient would benefit from diuretic therapy 4. Encephalopathy Significantly improved. Most likely metabolic in etiology. Plan to continue current supportive measures as noted above. Avoid sedating medications. Continue with delirium protocol 5. Cervical spinal stenosis status post recent surgery/rheumatoid arthritis/anemia/hypertension Complicates care, management, recovery and prognosis. Continue to hold antihypertensives/diuretics. 6. A. fib with RVR Patient's rate is much improved compared to previous. Patient reportedly has more palliative goals in mind, but wants to address this at the halfway. Given palliative goals, anticoagulation is likely not necessary from my perspective. Defer to hospitalist.. Subjective Subjective Patient much more responsive today. Patient states that she does not have an appetite, but has attempted eating a modified diet. Patient does have si gnificant anasarca. Discussed diuretic therapy and patient states she cannot take Lasix because it upsets my stomach and I pee too much. Objective Data Objective Data Patient with thoracentesis yesterday and 300 cc removed. Patient tolerated the procedure well with no obvious complications. No pain on palpation at the site. No bruising noted. Vital Signs: Vital Signs Temp Pulse Resp BP Pulse Ox 36.6 C 108 H 15 111/61 94 09/03/20 04:14 09/03/20 07:00 09/03/20 04:14 09/03/20 04:14 09/03/20 04:14 Oxygen Flow Rate (L/min) [3] 3 Oxygen Flow Rate (L/min) [2] 3 Oxygen Flow Rate (L/min) [1 ( 3 Initial Baseline)] Oxygen Flow Rate (L/min) 6 Oxygen Delivery Method [3] Nasal Cannula Oxygen Delivery Method [2] Nasal Cannula Oxygen Delivery Method [1 ( Nasal Cannula Initial Baseline)] Oxygen Delivery Method Nasal Cannula Weight: 84.4 kg Body Mass Index (BMI) 26.8 Intake & Output: Intake and Output for Last 24 Hours 09/01/20 09/02/20 09/03/20 23:59 23:59 23:59 Intake Total 2442.80 / 2470.00 937.73 / 937.73 50 / 50 Output Total 300 / 300 550 / 550 75 / 75 Balance 2142.80 / 2170.00 387.73 / 387.73 -25 / -25 Lab / Micro Data Result Diagrams: 09/02/20 06:05 09/03/20 06:00 Labs: Laboratory Results - last 24 hr 09/02/20 09/02/20 09/02/20 09:50 11:43 13:55 PT 15.3 H INR 1.3 APTT 39.9 H Sodium Potassium Chloride Carbon Dioxide Anion Gap BUN Creatinine Estim Creat Clear Calc Est GFR (MDRD) Af Amer Est GFR (MDRD) Non-Af BUN/Creatinine Ratio Glucose Calcium Magnesium Fluid Source Fluid Color Fluid Appearance Fluid WBC Fluid RBC Fluid Tot Cell Count Fld Polynuclear WBCs # Fld Polynuclear WBCs % Fluid Mononuclear WBCs Fld Mononuclear WBCs % Fluid Neutrophils Fluid Lymphocytes Fluid Monocytes Fluid Other Cells Fl Pathologist Comment Fluid Glucose 207 H Fluid Total Protein 0.4 Fluid LDH 54 Fluid Comment 2 POC Glucose 170 H 09/02/20 09/02/20 09/02/20 13:55 17:18 22:40 PT INR APTT Sodium Potassium Chloride Carbon Dioxide Anion Gap BUN Creatinine Estim Creat Clear Calc Est GFR (MDRD) Af Amer Est GFR (MDRD) Non-Af BUN/Creatinine Ratio Glucose Calcium Magnesium Fluid Source THORACENTESIS Fluid Color LT YEL Fluid Appearance CLEAR Fluid WBC 0.163 Fluid RBC 75 Fluid Tot Cell Count 0.210 H Fld Polynuclear WBCs # 0.036 Fld Polynuclear WBCs % 22.1 Fluid Mononuclear WBCs 0.127 Fld Mononuclear WBCs % 77.9 Fluid Neutrophils 18 Fluid Lymphocytes 7 Fluid Monocytes 75 Fluid Other Cells PRODUCTION COORDINATOR Fl Pathologist Comment May follow Fluid Glucose Fluid Total Protein Fluid LDH Fluid Comment 2 SEE COMMENT POC Glucose 109 106 09/03/20 09/03/20 09/03/20 00:10 05:28 06:00 PT INR APTT Sodium 144 Potassium 3.5 Chloride 114 H Carbon Dioxide 24.0 Anion Gap 6 BUN 44 H Creatinine 1.18 H Estim Creat Clear Calc 35.93 Est GFR (MDRD) Af Amer 57 L Est GFR (MDRD) Non-Af 47 L BUN/Creatinine Ratio 37.3 H Glucose 98 Calcium 7.0 L Magnesium 1.6 Fluid Source Fluid Color Fluid Appearance Fluid WBC Fluid RBC Fluid Tot Cell Count Fld Polynuclear WBCs # Fld Polynuclear WBCs % Fluid Mononuclear WBCs Fld Mononuclear WBCs % Fluid Neutrophils Fluid Lymphocytes Fluid Monocytes Fluid Other Cells Fl Pathologist Comment Fluid Glucose Fluid Total Protein Fluid LDH Fluid Comment 2 POC Glucose 93 76 Micro: Microbiology 09/02/20 13:55 Fluid - Pleural (Lung) Gram Stain - Final 08/30/20 11:50 Wound - Neck Gram Stain - Final 08/30/20 11:50 Wound - Neck Wound Culture - Final Coag Negative Staph 08/26/20 22:15 Blood Culture (Wb) - Right Wrist Blood Culture - Final No growth in 5 days. 08/26/20 16:30 Blood Culture (Wb) - Central Line Blood Culture - Final No growth in 5 days. 08/26/20 18:45 Urine Catheter - Nash Urine Culture - Final Culture exhibits no growth. Radiography Diagnostic Testing: Radiology Impression Echocardiogram 09/02/20 08:22 Interpretation Summary The estimated ejection fraction is EF 40-45% %. Moderate LV systolic Dysfunction Mild Midl-moderate AR Mild-moderate MR Moderate- severe TR worsening LV systolic functon in comparasion to prior echo in05/2015 Ordering Physician: Cheko Theodore Referring Physician: TIKA GOLD Performed By: Lilly Mcnulty RDCS Thoracentesis Ultrasound 09/02/20 09:28 IMPRESSION: Ultrasound-guided left thoracentesis. Electronically Signed: Maciel Galindo MD at 14:54 EDT , Service support , Chest X-Ray 09/02/20 14:02 IMPRESSION: Status post left thoracentesis. There is no evidence of pneumothorax. Electronically Signed: Maciel Galindo MD at 14:14 EDT , Service support , Physical Exam Const alert General Appearance: appears older than stated age; Negative for in distress Orientation / Consciousness: disoriented Nutritional Appearance: overweight HEENT normocephalic and head/scalp atraumatic Eyes EOMs intact bilaterally and conjunctivae normal Neck full ROM and No nuchal rigidity Neck Narrative: Posterior neck wound appears intact without any purulence Resp normal respiratory effort Auscultation: rales right (Greater than left) and diminished lung sounds; Negative for rhonchi or wheezes Cardio S1 normal heart sound, S2 normal heart sound, no murmurs, no rub and no gallops Rhythm: abnormal rhythm irregularly irregular GI normal to inspection, nondistended, normoactive bowel sounds, soft to palpation, non-tender and non-distended Extremity normal to inspection General Extremity: edema bilateral (1+) lower extremity; Negative for clubbing or cyanosis Skin no rashes or lesions noted Psych Mood & Affect: flat affect Charges/Coding Visit Charges Inpatient E&M: 51127 Subs Hosp L2
[2020-09-03] MEDS: Menthol/Lanolin/Calamine/Znox 113 GM Tube 1 APPLIC TOPICAL (09:06)
--- NOTE | 2020-09-03 09:32 | PCM.TXEXTCAR ---
Diet 09/01/20 13:21 Diet: Regular - General Food consistency:: Pureed Liquid Consistency:: [place]/Mildly Thick Type of Dietary Supplement:: Ensure Pudding Is pt able to select menu?: No Diet Comments: 1:1 supervised;meds crushed in purees if able;ES pud w/ B; magic cup w/ L&D Routine Orders/Code Status Routine Lab Work: [facility] Code Status: DNRCC-A Wound(s) Coccyx: Wound Type: Pressure Injury Dressing Change: Mepilex Rt great toe: Wound Type: Neuropathic/Diabetic Foot Ulcer Lt great toe: Wound Type: Neuropathic/Diabetic Foot Ulcer Lt heal: Wound Type: Abrasion Lt post neck: Wound Type: Open Surgical Wound Dressing Change: AntiMicrobial (Aquacel AG, etc) rt knee: Wound Type: Abrasion Therapies Physical Therapy: Eval and Treat Occupational Therapy: Eval and Treat Speech Therapy: Eval and Treat Problem/Diagnosis (1) Septic shock: Status: Resolved Allergies/Procedures Done in Hospital Allergies erythromycin base Allergy (Verified 08/26/20 18:08) PT UNSURE OF REACTION exenatide [From [place]] Adverse Reaction (Verified 08/26/20 18:08) Diarrhea furosemide [From Lasix] Adverse Reaction (Verified 08/26/20 18:08) Vomiting naproxen [From Naprosyn] Adverse Reaction (Verified 08/26/20 18:08) abd pain Procedures: 2-D Echocardiogram Type of Care/Length of Stay Estimated LOS: More Than 30 Days Type of Care Needed: Intermediate Rehab Potential: Fair Prognosis: Fair Additional Orders/Day of Discharge Day of Discharge: 09/03/20 Dietary and Speech Recommendations Dietitian Recommendations/Changes: Continue Regular diet with consistency per MAGNETIC RESONANCE IMAGING DIRECTOR as needed--currently pureed food and nectar-thick liquids. Ensure pudding with breakfast. Magic Cup BID w/ lunch and dinner. Manish BID for wounds. Consider TF support if PO remains poor and inadequate. Discharge Plan Admission Admit Date/Time: 08/26/20 21:09 Attending Provider: Cheko Theodore Primary Care Provider: Mayra Goodman NP Consulting Providers: Steven Mello ; Hua Porter ; Watson Munson ; Alicia Jacobs NP ; Jennifer Garcia Discharge Orders/Prescriptions Prescriptions: New metoprolol tartrate 25 mg Tablet 12.5 mg PO BID Qty: 0 RF: 0 bumetanide 0.5 mg tablet 0.5 mg PO DAILY Qty: 1 RF: 0 Continued pravastatin 40 MG tablet 40 mg PO QHS RF: 0 clopidogrel 75 MG tablet 75 mg PO DAILY RF: 0 levothyroxine 100 MCG tablet 100 mcg PO DAILY RF: 0 docusate sodium 100 MG capsule 100 mg PO DAILY PRN (Reason: Constipation) RF: 0 fluticasone propionate 1 SPRAY spray,suspension 1 spray NASAL DAILY RF: 0 cyclobenzaprine 5 MG tablet 5 mg PO Q8H PRN (Reason: MUSCLE SPASMS) RF: 0 duloxetine 60 MG capsule,delayed release(DR/EC) 60 mg PO DAILY RF: 0 linagliptin 5 MG tablet 5 mg PO DAILY RF: 0 albuterol sulfate 2.5 mg /3 mL (0.083 %) solution for nebulization 2.5 mg inhalation TID RF: 0 acetaminophen [Tylenol Extra Strength] 500 mg Tablet 1,000 mg PO TID PRN (Reason: Pain) RF: 0 metformin 1,000 mg Tablet 1,000 mg PO BID RF: 0 insulin aspart U-100 [Novolog Flexpen U-100 Insulin] 100 unit/mL (3 mL) Insulin Pen See Protocol unit SUBCUT TIDCM RF: 0 Boost Glucose Control 0.07-0.8 gram-kcal/mL Liquid 240 ml PO DAILY RF: 0 Held spironolactone 25 MG tablet 25 mg PO DAILY RF: 0 Hold Instructions: Resume on 09/08/20. Adding bumex, evaluate renal function prior to restarting lisinopril 40 MG tablet 40 mg PO DAILY RF: 0 Hold Instructions: Resume on 09/08/20. Monitor BP with the addition of bumex and metoprolol and if still elevated then restart Discontinued metoprolol succinate 100 MG tablet extended release 24 hr 100 mg PO DAILY RF: 0 pregabalin 100 MG capsule 100 mg PO BID RF: 0 sulfamethoxazole-trimethoprim [Bactrim DS] 800-160 mg Tablet 1 tab PO DAILY RF: 0 No Action pantoprazole 40 mg Tablet,Delayed Release (Dr/Ec) 40 mg PO DAILY RF: 0 Referrals / Follow Up: Mayra Goodman NP, [employer] MANAG[employer] PROFESSOR-C [Primary Care Provider] - Within 2 Weeks Disposition Disposition (needs filled in before D/C Order can be placed): [facility]
--- NOTE | 2020-09-03 10:01 | DS.PCM_ITS ---
Providers Date of Admission: 08/26/20 Primary Care Physician: AME Neal Consultations 08/27/20 05:45 Consult: Computed Tomography Scanner Operator / Pulmonary Medicine Routine Consulting Provider: [facility] Reason for Consult: resp failure, septic shock EMERGENT Consult: No Notified: Yes Date Notified: 08/26/20 Time Notified: 20:45 Method of Notification: Verbal 08/27/20 06:26 Consult: Infectious Disease Routine Consulting Provider: Steven Mello Reason for Consult: Septic Shock EMERGENT Consult: No Notified: Yes Date Notified: 08/27/20 Time Notified: 08:30 Method of Notification: Text 08/27/20 07:38 Consult: Nephrology Routine Consulting Provider: Jennifer Garcia Reason for Consult: STEPHAN, Metabolic Acidosis EMERGENT Consult: No Notified: Yes Date Notified: 08/27/20 Time Notified: 08:12 Method of Notification: Answering Service 08/30/20 11:29 Consult: Onc/Wound/legal administrative assistant Routine Comment: Reason For Visit: LEUKOCYTOSIS Diagnosis Discharge Diagnosis (1) Septic shock: Status: Resolved Code(s): A41.9 - Sepsis, unspecified organism; R65.21 - Severe sepsis with septic shock (2) Pneumonia: Status: Resolved Code(s): J18.9 - Pneumonia, unspecified organism Qualifiers: Pneumonia type: due to unspecified organism Laterality: right Lung location: upper lobe of lung Qualified Code(s): J18.9 - Pneumonia, unspecified organism Medications at Discharge Home Medications clopidogrel 75 mg PO DAILY 05/17/20 cyclobenzaprine 5 mg PO Q8H PRN 05/17/20 docusate sodium 100 mg PO DAILY PRN 05/17/20 duloxetine 60 mg PO DAILY 05/17/20 fluticasone propionate 1 spray NASAL DAILY 05/17/20 levothyroxine 100 mcg PO DAILY 05/17/20 linagliptin 5 mg PO DAILY 05/17/20 lisinopril 40 mg PO DAILY 05/17/20 pravastatin 40 mg PO QHS 05/17/20 spironolactone 25 mg PO DAILY 05/17/20 Boost Glucose Control 240 ml PO DAILY 08/26/20 acetaminophen [Tylenol Extra Strength] 1,000 mg PO TID PRN 08/26/20 albuterol sulfate 2.5 mg INHALATION TID 08/26/20 insulin aspart U-100 [Novolog Flexpen U-100 Insulin] See Protocol SUBCUT TIDCM 08/26/20 metformin 1,000 mg PO BID 08/26/20 pantoprazole 40 mg PO DAILY 08/26/20 bumetanide 0.5 mg PO DAILY #1 tab 09/03/20 metoprolol tartrate 12.5 mg PO BID #0 tab 09/03/20 Hospital Course Operations None Procedures 2-D Echocardiogram Summary of Care Provided Minutes Spent on Discharge: 45 Hospital Course: Per HPI: TIA WAGNER, is a 75 F who presents to the emergency room at [facility] after being transported from a local care home where she has been a resident for the last few months after undergoing neck surgery for cervical spinal stenosis. She became weak and lethargic at the care home today and was transported in for evaluation. Labs obtained in the emergency room showed an elevated white blood cell count at 19.8, hemoglobin was 9, chemistry profile was remarkable for potassium of 5.9, creatinine of 2.53, BUN of 59, glucose of 240, lactic acid was elevated at 7.5, and patient's venous blood gas showed a pH of 7.12. Patient's urinalysis was unremarkable, her chest x-ray showed no infiltrates. Patient's neck wound appeared to be nonreddened and there was no evidence of discharge from her surgical neck wound. The exact etiology of the patient's elevated white blood cell count, elevated lactic acid, and acidosis was not apparent, patient's blood pressure was low and a central line was inserted and she was placed on Levophed. I had a conversation with the patient's POA (her daughter) in the presence of her daughters , they both agree that the patient has had declining health over the last few months and they agreed to make the patient a DNR CC arrest without intubation. Patient required a nonrebreather to maintain her pulse ox above 90%. Patient's overall prognosis is poor at this point, I suspect the patient has septic shock from an unknown etiology, she was given vancomycin and Zosyn and these will continue in the ICU. I have contacted Dr. Munson (case briefer) and discussed her case with him. Hospital Course: #Septic shock secondary to right upper lobe pneumonia Patient remains on Levophed drip. On IV meropenem. WBC is down to 26 today. Blood cultures showed no growth after 48 hours. Plan is to titrate Levophed to maintain MAP at 65 and above. ID on board. Critical care also on board. CT of the cervical spine didn't show any evidence of infection. However it did demonstrate a possible right upper lobe infiltrate 08/30/2020?discontinue Levophed and vancomycin, continue with meropenem 08/31/2020?continue with meropenem, has remained off of pressor support, dagoberto kocytosis down to 16 today 09/01/2020?continue with meropenem, leukocytosis continues to improve. We will follow-up with the daughter better conversations yesterday about hospice and other advanced care planning options 09/02/2020?leukocytosis is resolved, she has completed antibiotics #New onset A. fib with RVR Continue with amiodarone drip as well as IV Lopressor 08/31/2020?we will plan to transition amiodarone to p.o. once she passes the speech evaluation 09/01/2020?she failed speech evaluation yesterday may need to proceed with a modified barium swallow. 09/02/2020?she did pass a swallow study however yesterday she remained tachycardic and had Cardizem added which did seem to drop her heart rate but it did also drop her blood pressure so she is now off both amiodarone and Cardizem and maintaining heart rate below 90 09/03/2020?discussed with her and her daughter at length about anticoagulation, we all decided to not pursue that since the plan is to proceed with hospice once at the SNF. Because of her hypertension we will decrease her home metoprolol from 100 to 12.5 twice daily and allow for titration upwards if necessary. Continue with her Plavix secondary to her stents. Echo demonstrated an EF of 40 to 45%, borderline for systolic dysfunction #STEPHAN and anion gap metabolic acidosis Creatinine is down to 1.9, and bicarb is 29. I dont anticipate that with improvement of bicarb and Cr, patient will likely not need dialysis 08/30/2020?appreciate nephrology assistance, will continue to monitor 08/31/2020?creatinine is down to 1.36 today we will continue to monitor 09/01/2020?creatinine is down to 1.09, will continue to monitor 09/02/2020?creatinine is back up to 1.3 09/03/2020?creatinine is down to 1.18 #Acute hypoxic respiratory failure Etiology is secondary to pneumonia, and her A. fib Titrate oxygen to maintain saturation at or above 90%. on IV meropenem 09/02/2020?overnight had to be placed on 50% oxygen, chest x-ray with right pleural effusion, will plan for ultrasound-guided thoracentesis with fluid studies 09/03/2020?fluid studies demonstrated a transudate of pleural effusion therefore will add Bumex at 0.5 mg a day and monitor #Type 2 diabetes mellitus: Home meds on hold. Currently Accu-Cheks every 6 hourly. Insulin sliding scale. #Cervical spine stenosis: S/p recent neck surgery. CT done during this admission was negative. #Acute metabolic encephalopathy due to septic shock: Management as under septic shock 08/31/2020?encephalopathy has resolved #Benign essential hypertension: BP meds on hold on account of septic shock. #Hypocalcemia is corrected for hypoalbuminemia, will continue to monitor Her home medications for her chronic illnesses were restarted on discharge where appropriate. Physical Exam Const alert and no apparent distress General Appearance: well kempt and well developed Exam Limitations: no limitations and altered mental status HEENT normocephalic Eyes PERRL, EOMs intact bilaterally and conjunctivae normal Neck supple and no JVD General: trachea midline Resp normal respiratory effort, normal air movement, no retractions and no use of accessory muscles Auscultation: diminished lung sounds; Negative for crackles, rales, rhonchi or wheezes Cardio regular rate, S1 normal heart sound, S2 normal heart sound and no murmurs Rate: tachycardic Rhythm: abnormal rhythm GI soft to palpation, non-tender and non-distended; Negative for hepatosplenomegaly Extremity no clubbing, cyanosis or edema Skin no rashes or lesions noted Neuro moves all extremities, no focal motor deficits and no sensory deficits noted Psych Mood & Affect: flat affect Weight / BMI Weight Weight: 186 lb 1.122 oz Body Mass Index (BMI) 26.8 ABG / Lab / Microbiology Data Result Diagrams: 09/02/20 06:05 09/03/20 06:00 Laboratory: Laboratory Results - last 24 hr 09/02/20 09/02/20 09/02/20 09:50 11:43 13:55 PT 15.3 H INR 1.3 APTT 39.9 H Sodium Potassium Chloride Carbon Dioxide Anion Gap BUN Creatinine Estim Creat Clear Calc Est GFR (MDRD) Af Amer Est GFR (MDRD) Non-Af BUN/Creatinine Ratio Glucose Calcium Magnesium Fluid Source Fluid Color Fluid Appearance Fluid WBC Fluid RBC Fluid Tot Cell Count Fld Polynuclear WBCs # Fld Polynuclear WBCs % Fluid Mononuclear WBCs Fld Mononuclear WBCs % Fluid Neutrophils Fluid Lymphocytes Fluid Monocytes Fluid Other Cells Fl Pathologist Comment Fluid Glucose 207 H Fluid Total Protein 0.4 Fluid LDH 54 Fluid Comment 2 POC Glucose 170 H 09/02/20 09/02/20 09/02/20 13:55 17:18 22:40 PT INR APTT Sodium Potassium Chloride Carbon Dioxide Anion Gap BUN Creatinine Estim Creat Clear Calc Est GFR (MDRD) Af Amer Est GFR (MDRD) Non-Af BUN/Creatinine Ratio Glucose Calcium Magnesium Fluid Source THORACENTESIS Fluid Color LT YEL Fluid Appearance CLEAR Fluid WBC 0.163 Fluid RBC 75 Fluid Tot Cell Count 0.210 H Fld Polynuclear WBCs # 0.036 Fld Polynuclear WBCs % 22.1 Fluid Mononuclear WBCs 0.127 Fld Mononuclear WBCs % 77.9 Fluid Neutrophils 18 Fluid Lymphocytes 7 Fluid Monocytes 75 Fluid Other Cells CONTACT CENTER MANAGER Fl Pathologist Comment May follow Fluid Glucose Fluid Total Protein Fluid LDH Fluid Comment 2 SEE COMMENT POC Glucose 109 106 09/03/20 09/03/20 09/03/20 00:10 05:28 06:00 PT INR APTT Sodium 144 Potassium 3.5 Chloride 114 H Carbon Dioxide 24.0 Anion Gap 6 BUN 44 H Creatinine 1.18 H Estim Creat Clear Calc 35.93 Est GFR (MDRD) Af Amer 57 L Est GFR (MDRD) Non-Af 47 L BUN/Creatinine Ratio 37.3 H Glucose 98 Calcium 7.0 L Magnesium 1.6 Fluid Source Fluid Color Fluid Appearance Fluid WBC Fluid RBC Fluid Tot Cell Count Fld Polynuclear WBCs # Fld Polynuclear WBCs % Fluid Mononuclear WBCs Fld Mononuclear WBCs % Fluid Neutrophils Fluid Lymphocytes Fluid Monocytes Fluid Other Cells Fl Pathologist Comment Fluid Glucose Fluid Total Protein Fluid LDH Fluid Comment 2 POC Glucose 93 76 Microbiology: Microbiology 09/03/20 09:10 SARS-CoV-2 Antigen (Rapid) - Final Mucosa - Nose 09/02/20 13:55 Gram Stain - Final Fluid - Pleural (Lung) Microbiology 09/03/20 09:10 Mucosa - Nose SARS-CoV-2 Antigen (Rapid) - Final 09/02/20 13:55 Fluid - Pleural (Lung) Gram Stain - Final 08/30/20 11:50 Wound - Neck Gram Stain - Final 08/30/20 11:50 Wound - Neck Wound Culture - Final Coag Negative Staph 08/26/20 22:15 Blood Culture (Wb) - Right Wrist Blood Culture - Final No growth in 5 days. 08/26/20 16:30 Blood Culture (Wb) - Central Line Blood Culture - Final No growth in 5 days. 08/26/20 18:45 Urine Catheter - Nash Urine Culture - Final Culture exhibits no growth. Radiography Diagnostic Testing: Radiology Impression Echocardiogram 09/02/20 08:22 Interpretation Summary The estimated ejection fraction is EF 40-45% %. Moderate LV systolic Dysfunction Mild Midl-moderate AR Mild-moderate MR Moderate- severe TR worsening LV systolic functon in comparasion to prior echo in05/2015 Ordering Physician: Cheko Theodore Referring Physician: TIKA GOLD Performed By: Lilly Mcnulty RDCS Thoracentesis Ultrasound 09/02/20 09:28 IMPRESSION: Ultrasound-guided left thoracentesis. Electronically Signed: Maciel Galindo MD at 14:54 EDT , Service support , Chest X-Ray 09/02/20 14:02 IMPRESSION: Status post left thoracentesis. There is no evidence of pneumothorax. Electronically Signed: Maciel Galindo MD at 14:14 EDT , Service support , Meaningful Use Info Meaningful Use Diagnoses (Choose all that apply): None applicable Discharge Plan Admission Admit Date/Time: 08/26/20 21:09 Attending Provider: Cheko Theodore Primary Care Provider: Tika Gold NP Consulting Providers: Steven Mello ; Hua Porter ; Watson Munson ; Alicia Jacobs NP ; Jennifer Garcia Discharge Orders/Prescriptions Prescriptions: New metoprolol tartrate 25 mg Tablet 12.5 mg PO BID Qty: 0 RF: 0 bumetanide 0.5 mg tablet 0.5 mg PO DAILY Qty: 1 RF: 0 Continued pravastatin 40 MG tablet 40 mg PO QHS RF: 0 clopidogrel 75 MG tablet 75 mg PO DAILY RF: 0 levothyroxine 100 MCG tablet 100 mcg PO DAILY RF: 0 docusate sodium 100 MG capsule 100 mg PO DAILY PRN (Reason: Constipation) RF: 0 fluticasone propionate 1 SPRAY spray,suspension 1 spray NASAL DAILY RF: 0 cyclobenzaprine 5 MG tablet 5 mg PO Q8H PRN (Reason: MUSCLE SPASMS) RF: 0 duloxetine 60 MG capsule,delayed release(DR/EC) 60 mg PO DAILY RF: 0 linagliptin 5 MG tablet 5 mg PO DAILY RF: 0 albuterol sulfate 2.5 mg /3 mL (0.083 %) solution for nebulization 2.5 mg inhalation TID RF: 0 acetaminophen [Tylenol Extra Strength] 500 mg Tablet 1,000 mg PO TID PRN (Reason: Pain) RF: 0 metformin 1,000 mg Tablet 1,000 mg PO BID RF: 0 insulin aspart U-100 [Novolog Flexpen U-100 Insulin] 100 unit/mL (3 mL) Insulin Pen See Protocol unit SUBCUT TIDCM RF: 0 Boost Glucose Control 0.07-0.8 gram-kcal/mL Liquid 240 ml PO DAILY RF: 0 Held spironolactone 25 MG tablet 25 mg PO DAILY RF: 0 Hold Instructions: Resume on 09/08/20. Adding bumex, evaluate renal function prior to restarting lisinopril 40 MG tablet 40 mg PO DAILY RF: 0 Hold Instructions: Resume on 09/08/20. Monitor BP with the addition of bumex and metoprolol and if still elevated then restart Discontinued metoprolol succinate 100 MG tablet extended release 24 hr 100 mg PO DAILY RF: 0 pregabalin 100 MG capsule 100 mg PO BID RF: 0 sulfamethoxazole-trimethoprim [Bactrim DS] 800-160 mg Tablet 1 tab PO DAILY RF: 0 No Action pantoprazole 40 mg Tablet,Delayed Release (Dr/Ec) 40 mg PO DAILY RF: 0 Referrals / Follow Up: Tika Gold NP, CONTACT CENTER MANAGER-C [Primary Care Provider] - Within 2 Weeks Disposition Disposition (needs filled in before D/C Order can be placed): Shelter Facility Charges/Coding Visit Charges Inpatient E&M: 87980 Disch Hosp
--- NOTE | 2020-09-03 10:09 | PHA.DC.MR ---
Pharmacy Service has performed discharge medication reconciliation for this patient upon transfer to [facility]. Home Medications clopidogrel 75 mg PO DAILY 05/17/20 cyclobenzaprine 5 mg PO Q8H PRN 05/17/20 docusate sodium 100 mg PO DAILY PRN 05/17/20 duloxetine 60 mg PO DAILY 05/17/20 fluticasone propionate 1 spray NASAL DAILY 05/17/20 levothyroxine 100 mcg PO DAILY 05/17/20 linagliptin 5 mg PO DAILY 05/17/20 lisinopril 40 mg PO DAILY 05/17/20 pravastatin 40 mg PO QHS 05/17/20 spironolactone 25 mg PO DAILY 05/17/20 Boost Glucose Control 240 ml PO DAILY 08/26/20 acetaminophen [Tylenol Extra Strength] 1,000 mg PO TID PRN 08/26/20 albuterol sulfate 2.5 mg INHALATION TID 08/26/20 insulin aspart U-100 [Novolog Flexpen U-100 Insulin] See Protocol SUBCUT TIDCM 08/26/20 metformin 1,000 mg PO BID 08/26/20 pantoprazole 40 mg PO DAILY 08/26/20 bumetanide 0.5 mg PO DAILY #1 tab 09/03/20 metoprolol tartrate 12.5 mg PO BID #0 tab 09/03/20 The patient's discharge medication list was reviewed for discrepancies and discrepancies were resolved.
--- NOTE | 2020-09-03 10:13 | CASEMGMT ---
Per physician patient's daughter would like to interview the different Hospices that [facility] works with. Patient will be discharged back to [facility] today. SW called [facility] and spoke with Erica letting her know patient will be returning and daughter wants to interview Hospices. COVID test was obtained and was negative. Elysia Shabazz SALVAGE LABORER RUSTAM
[2020-09-03] MEDS: Metoprolol Tartrate 25 MG Tablet 12.5 MG PO (10:36)
--- NOTE | 2020-09-03 11:46 | CASEMGMT ---
MOIZ faxed d/c orders and negative COVID test to [facility]. MOIZ called patient's daughter to let her know about discharge and to see if she was planning on seeing her before she leaves. She said she will go see her at [facility] later. She said if for some reason transport cannot be arranged by 5 to let her know. She thanked MOIZ for the update. MOIZ arranged for patient to get picked up at 1330 via cot. MOIZ notified RN, payroll secretary, and Sharri at [facility]. Plan: d/c back to [facility] at [place] under skilled level of care. Family will talk with Hospice agencies. [facility] transported patient via cot. Elysia Shabazz SHOP AND ALTERATION TAILORCasey EASTON
[2020-09-03 11:56] LABS: Pathologist Comment/Body Fluid Reviewed
[2020-09-03 12:00] LABS: Bedside Glucose 70 mg/dL (70-110)
--- NOTE | 2020-09-03 12:16 | NURSING ---
Report called for pt d/c to [facility]. Spoke to nurse Susan.
--- NOTE | 2020-09-03 13:09 | NURSING ---
wound photo: posterior neck
--- NOTE | 2020-09-03 13:10 | NURSING ---
wound photo: sacrum
[2020-09-04 12:56] LABS: Bedside Glucose 30 mg/dL (70-110)
[2020-09-04 12:56] LABS: Bedside Glucose 48 mg/dL (70-110)
== END 2020-09-03 13:30 | disposition skilled nursing facility (03) | DRG 871 ==
LOC: ED 20:11 → ICU 21:34 → PCU 08-31 12:52
PROVIDERS: Internal Medicine Critical Care Medicine; Internal Medicine Infectious Disease; Student in an Organized Health Care Education/Training Program; Admitting Provider Internal Medicine; Emergency Provider Emergency Medicine; PCP Nurse Practitioner; Visit Provider Family Medicine
DX: A41.9 Sepsis, unspecified organism (principal); R65.21 Severe sepsis with septic shock; J18.9 Pneumonia, unspecified organism; J96.01 Acute respiratory failure with hypoxia; N17.0 Acute kidney failure with tubular necrosis; G93.41 Metabolic encephalopathy; E87.2 Acidosis; J90 Pleural effusion, not elsewhere classified; D72.829 Elevated white blood cell count, unspecified; I25.10 Atherosclerotic heart disease of native coronary artery without angina pectoris; E03.9 Hypothyroidism, unspecified; E78.5 Hyperlipidemia, unspecified; M06.9 Rheumatoid arthritis, unspecified; M48.02 Spinal stenosis, cervical region; I48.91 Unspecified atrial fibrillation; I10 Essential (primary) hypertension; D50.9 Iron deficiency anemia, unspecified; E11.649 Type 2 diabetes mellitus with hypoglycemia without coma; E87.5 Hyperkalemia; T68.XXXA Hypothermia, initial encounter; D69.6 Thrombocytopenia, unspecified; E83.51 Hypocalcemia; E88.09 Other disorders of plasma-protein metabolism, not elsewhere classified; Z79.890 Hormone replacement therapy; Z79.899 Other long term (current) drug therapy; Z79.4 Long term (current) use of insulin; Z79.02 Long term (current) use of antithrombotics/antiplatelets; Z87.891 Personal history of nicotine dependence; Z66 Do not resuscitate
CPT/HCPCS: 32555; 36415; 36600; 51702; 70490; 71045; 71046; 80048; 80053; 80202; 81001; 82803; 82945; 82962; 83605; 83615; 83690; 83735; 84100; 84157; 84443; 84484; 85025; 85610; 85730; 87040; 87070; 87075; 87086; 87205; 87426; 87635; 87640; 87641; 88108; 88305; 88313; 89050; 92526; 92610; 93005; 93306; 94640; 96365; 96375; 97110; 97162; 97166; 97535; 97803; 99251; 99285; J2185; J7030; J7040; J7050; P9612; U0005; A4216; C1751; G0463; J2405; U0003